=== PATIENT | female | born 1985 | race Caucasian/White ===

== ENCOUNTER 2022-03-02 15:09 | Outpatient (CLI) | payer BC, SELFPAY ==
[2022-03-02 16:15] LABS: Free T4 Free Thyroxine* 1.22 ng/dL (0.70-1.85)
== END 2022-03-02 15:10 | disposition home or self-care (01) ==
LOC: LAB 15:12
PROVIDERS: PCP Family Medicine; Referring Provider Psychiatry & Neurology Psychiatry; Visit Provider Psychiatry & Neurology Psychiatry
DX: E03.9 Hypothyroidism, unspecified (principal)
CPT/HCPCS: 36415; 84439; 84443

== ENCOUNTER 2022-06-03 11:00 | Outpatient (RCR) | payer BC, SELFPAY | END 2023-01-19 23:59 | disposition home or self-care (01) | PROVIDERS: PCP Family Medicine; Visit Provider Nurse Practitioner Family | DX: R10.2 Pelvic and perineal pain (principal); Z51.89 Encounter for other specified aftercare | CPT/HCPCS: 97032; 97110; 97112; 97140; 97162; 97535 ==

== ENCOUNTER 2022-08-03 11:16 | Outpatient (CLI) | payer BC, SELFPAY ==
[2022-08-03 12:34] LABS: Free T4 Free Thyroxine* 0.73 ng/dL (0.70-1.85)
[2022-08-05 08:34] LABS: Vitamin D, 1,25-Dihydroxy 31.6 pg/mL (19.9-79.3)
== END 2022-08-03 11:17 | disposition home or self-care (01) ==
PROVIDERS: Visit Provider Psychiatry & Neurology Psychiatry
DX: F31.89 Other bipolar disorder (principal)
CPT/HCPCS: 36415; 82652; 84439; 84443

== ENCOUNTER 2023-03-23 14:00 | Outpatient (RCR) | payer BC, SELFPAY | END 2023-03-31 08:50 | disposition home or self-care (01) | PROVIDERS: Visit Provider Internal Medicine | DX: M54.59 Other low back pain (principal); M25.551 Pain in right hip; M25.552 Pain in left hip; Z51.89 Encounter for other specified aftercare; M48.061 Spinal stenosis, lumbar region without neurogenic claudication | CPT/HCPCS: 97110; 97140; 97162 ==

== ENCOUNTER 2023-08-17 09:06 | Emergency (ER) | payer BC, SELFPAY ==
[2023-08-17] VITALS (18 sets, daily range): BP systolic 118–137; BP diastolic 83–95; PULSE 97–111; RESP 18–24; TEMP 36.2; O2SAT 89–98; BMI 38.6
[2023-08-17 10:03] LABS: Strep A DNA Probe* NOT DETECTED (Not Detectd)
--- NOTE | 2023-08-17 10:13 | ED.GENADULT ---
HPI - General Adult General Date Seen: 08/17/23 Chief complaint: Shortness of Breath/Dyspnea Stated complaint: chest pain, cough Time Seen by Provider: 08/17/23 10:02 History of Present Illness HPI narrative: 38-year-old female with a history of asthma, tobacco use, who presents to the ER this morning for evaluation shortness of breath and chest discomfort. She feels like her asthma is flaring up. She has been sick for about a week with cough, nasal congestion, , sore throat chest congestion. Also body aches, headache. Her neighbor has been sick with similar symptoms and was seen in the ER last night (apparently with negative COVID influenza swab results). The patient feels like her illnesses making her asthma flare up. She has been using her inhaler. It helped a little bit last night but did not help this morning. She feels like her asthma is flaring up and she is having more tightness and trouble breathing so came here to the ER. When asked about her asthma history she says that she actually rarely needs to use her inhaler. She says her asthma only flares up when she gets an infection. She says she has been hospitalized once or twice in the past for bad asthma attacks. Her cough has been productive of some phlegm. She does not really know if it is clear or greenish. No bloody phlegm. No nausea or vomiting. No fever. No swelling in her legs. No recent travel. No rashes. Related Data Home Medications Medication Instructions Recorded Confirmed Vraylar 08/17/23 albuterol sulfate 2.5 mg/3 mL 2.5 mg Q4H PRN wheezing 08/17/23 (0.083 %) solution for nebulization albuterol sulfate 90 mcg/actuation 2 puff inhalation Q4H PRN wheezing 08/17/23 08/17/23 aerosol inhaler (Ventolin HFA) bupropion HCl 150 mg 24 hr tablet, 150 mg PO QAM 08/17/23 08/17/23 extended release bupropion HCl 300 mg 24 hr tablet, 300 mg PO QAM 08/17/23 08/17/23 extended release cholecalciferol (vitamin D3) 50 50 mcg PO DAILY 08/17/23 08/17/23 mcg (2,000 unit) capsule dextroamphetamine sulfate 10 mg 15 mg PO DAILY 08/17/23 08/17/23 tablet elagolix 150 mg tablet (Orilissa) 150 mg PO DAILY 08/17/23 08/17/23 estradiol 0.01% (0.1 mg/gram) vaginal 08/17/23 vaginal cream fluticasone propionate 115 2 puff inhalation Q12H 08/17/23 08/17/23 mcg-salmeterol 21 mcg/actuation HFA inhaler lisinopril 10 mg tablet 10 mg PO DAILY 08/17/23 08/17/23 lorazepam 0.5 mg tablet 0.5 mg PO DAILY PRN anxiety 08/17/23 08/17/23 nicotine (polacrilex) 4 mg gum 4 mg PO Q1-2H PRN 08/17/23 08/17/23 nitrofurantoin macrocrystal 50 mg 50 mg PO DAILY 08/17/23 08/17/23 capsule polyethylene glycol 3350 17 g PO 08/17/23 gram/dose oral powder pregabalin 200 mg capsule 200 mg PO 3XD 08/17/23 08/17/23 trazodone 50 mg tablet 50 - 200 mg PO QPM PRN insomnia 08/17/23 08/17/23 Previous Rx's Medication Instructions Recorded benzonatate 100 mg capsule 100 mg PO TID PRN cough #15 caps 08/17/23 ipratropium 0.5 mg-albuterol 3 mg 3 ml inhalation Q4H PRN #90 mL 08/17/23 (2.5 mg base)/3 mL nebulization soln prednisone 20 mg tablet 40 mg (2 x 20 mg) PO DAILY 4 days 08/17/23 #8 tabs Allergies Allergy/AdvReac Type Severity Reaction Status Date / Time No Known Allergies Allergy Verified 08/17/23 09:24 [facility] Social History Smoking Status: Current every day smoker What tobacco products do you use: cigarettes How often do you have a drink containing alcohol: monthly or less AUDIT-C Alcohol total score: 1 Non-prescribed substance use: denies use Exam Narrative: Exam Narrative: Constitutional: Appears well-developed and well-nourished. Alert. Oxygen in the low 90s on room air. She is mildly tachycardic with heart rate of 101 on the monitor as I enter the room. She is coughing frequently and has a hard time stopping. Cough is dry, not barky. No stridor. HENT: Head: Atraumatic. Nose: Nose normal. Right ear: Mastoid, pinna, canal, TM are normal. Left ear: Mastoid, pinna, canal, TM are normal. Mouth/Throat: Oral mucosa is clear and moist. no trismus. Pharynx mildly erythematous without petechiae or vesicles. Tonsils symmetric and erythematous but not enlarged. Normal phonation. Uvula midline. Eyes: Conjunctivae normal. EOM normal. Pupils equal, round, and reactive to light. No scleral icterus. Neck: Normal range of motion. Neck supple. No tracheal deviation present. No JVD Cardiovascular: Tachycardic, regular rhythm. No gallop. No friction rub. No murmur heard. Symmetric radial artery pulses Pulmonary/Chest: Frequent dry cough. Effort normal. No stridor. No respiratory distress. She has difficulty breathing out for lung exam without coughing. No wheezes. No rales. No rhonchi . No tenderness. Abdominal: Soft.No distension. No mass. No tenderness. No rebound. No guarding. Musculoskeletal: RUE: Normal range of motion. No tenderness. No deformity LUE: Normal range of motion. No tenderness. No deformity RLE: Normal range of motion. No edema. No tenderness. No deformity LLE: Normal range of motion. No edema. No tenderness. No deformity Lymph: No cervical adenopathy. Neurological: Alert and oriented to person, place, and time. Normal strength. CN II-VII intact. No sensory deficit. GCS eye subscore is 4. GCS verbal subscore is 5. GCS motor subscore is 6. Normal coordination Skin: Skin is warm and dry. No rash noted. No pallor. Normal capillary refill. Psychiatric: Normal mood. Normal affect. Const: Vital Signs, click to edit/add: Vital Signs - 24 hr 08/17/23 09:19 Temperature 97.1 F L Pulse Rate [Left P ulse Oximeter] 107 H Respiratory Rate 24 Blood Pressure [Ri ght Upper Arm] 137/86 Pulse Oximetry 95 Oxygen Delivery Me thod Room Air Course Course ED Course: Recheck-patient feels subtly improved after neb. Still having some cough but much less coughing. Repeat lung exam still generally clear but she does have easy your respirations after the neb. Much less coughing now. Vital Signs Vital signs: Initial Vital Signs Temperature 97.1 F L 08/17/23 09:19 Temperature Source Temporal Artery Scan 08/17/23 09:19 Pulse Rate 107 H 08/17/23 09:19 Respiratory Rate 24 08/17/23 09:19 Blood Pressure 137/86 08/17/23 09:19 Blood Pressure Mean 103 08/17/23 09:19 Pulse Oximetry 95 08/17/23 09:19 Oxygen Delivery Method Room Air 08/17/23 09:19 Vital Signs Temperature 97.1 F L 08/17/23 09:19 Pulse Rate 107 H 08/17/23 09:19 Respiratory Rate 24 08/17/23 09:19 Blood Pressure 137/86 08/17/23 09:19 Pulse Oximetry 95 08/17/23 09:19 Oxygen Delivery Method Room Air 08/17/23 09:19 Temperature 97.1 F L 08/17/23 09:19 Pulse Rate 107 H 08/17/23 09:19 Respiratory Rate 24 08/17/23 09:19 Blood Pressure 137/86 08/17/23 09:19 Pulse Oximetry 95 08/17/23 09:19 Oxygen Delivery Method Room Air 08/17/23 09:19 Medications Administered Medications: Discontinued Medications Generic Name Dose Route Start Last Admin Trade Name Freq PRN Reason Stop Dose Admin Albuterol/Ipratropium 1 neb 08/17/23 10:21 08/17/23 10:30 Iprat-Albut 0.5-2.5 Mg/3 Ml Neb IH 08/17/23 10:22 1 neb ONCE ONE Administration Prednisone 40 mg 08/17/23 10:21 08/17/23 10:29 Prednisone 20 Mg Tablet PO 08/17/23 10:22 40 mg ONCE ONE Administration Medical Decision Making MDM Narrative Medical decision making narrative: This patient presents for evaluation of shortness of breath, cough, chest discomfort. She believes she is having an asthma exacerbation in the setting of having had a cold for about a week.. This is consistent with an upper respiratory tract infection. Viral testing negative for influenza, coronavirus, RSV. She also has sore throat with signs of pharyngitis on clinical exam. Strep testing was also negative. Given duration of cough, concomitant tobacco use, significant cough without a lot of bronchospasms on exam, consider possible community-acquired pneumonia. Chest x-ray is fortunately negative for pneumonia, pleural effusion, empyema, or other abnormality. There is no signs at this point of serious bacterial infection such as OM, RPA, epiglottitis, [employer], strep pharyngitis, pneumonia, sinusitis, meningitis, bacteremia, serious bacterial infection. She also has mildly low oxygen sats with typically in the low 90s. She had 1 brief episode where she dip down into the 80s, but it is not clear if that was an accurate oximeter reading. She does have an underlying history of sleep apnea, tobacco use, asthma. We monitor here for a couple of hours in the ER and she did well. She she maintained saturations in the low to mid 90s on room air. Recommend that she continue to monitor her oxygen sats at home. Reviewed in detail. There are go gastrointestinal symptoms at this point and no signs of dehydration. Close followup with primary care physician is indicated. Return to ED for O2 sats less than 90 %, fever > 103, protracted vomiting, confusion, or other worsening. Follow-up with primary care for recheck. Plan will be to treat for asthma exacerbation, likely triggered by viral URI. Five day burst of prednisone with 1st dose being given here in the ER. She will use her nebulizer and inhaler at home. She needs a refill for never wrist tools (provided). Tessalon for cough. Hold on antibiotics for now. Precautions for return to the ER review Lab Data Labs: Lab Results 08/17/23 Range/Units 09:25 SARS-CoV-2 (PCR) Negative SARS-CoV-2 (Negative) Influenza Type A (PCR) Negative PCR FLU A (Negative) Influenza Type B (PCR) Negative PCR FLU B (Negative) RSV (PCR) Negative PCR RSV (Negative) Group A Strep DNA NOT DETECTED (Not Detectd) Imaging Data Chest x-ray: Attestation: I have reviewed the pertinent imaging results. My impression: IMPRESSION: No acute findings. ECG Data Attestation: I personally reviewed and interpreted this ECG as follows: Interpretation: Sinus tachycardia, rate 111 WA 138 QRS axis normal axis. No pathologic Q-waves. Low-voltage QRS. ST segment/T wave: No ST segment elevation or depression. QTc: 459 Discharge Plan Discharge Clinical Impression: Asthma with acute exacerbation Patient Disposition: Home, Self-Care Condition: Stable Instructions: Asthma (DC), Upper Respiratory Infection (DC) Additional Instructions: As we discussed, please follow-up with your doctor for recheck within the next 3-5 days unless her completely improved. Continue to work on quitting smoking. Monitor your symptoms and if you have any oxygen levels below 90% or yet worsening cough, high fever, worsening chest pain, bloody sputum, or if you have any concerns, please come back to the ER right away to be rechecked. Prescriptions: New ipratropium-albuterol 0.5 mg-3 mg(2.5 mg base)/3 mL solution for nebulization 3 ml inhalation Q4H PRNQty: 90 0RF Rx Instructions: until breathing returns to target peak flow/parameters prednisone 20 mg tablet 40 mg PO DAILY 4 Days Qty: 8 0RF benzonatate 100 mg capsule 100 mg PO TID PRN (Reason: cough) Qty: 15 0RF No Action nitrofurantoin macrocrystal 50 mg capsule 50 mg PO DAILY albuterol sulfate 2.5 mg /3 mL (0.083 %) solution for nebulization 2.5 mg Q4H PRN (Reason: wheezing) trazodone 50 mg tablet 50 - 200 mg PO QPM PRN (Reason: insomnia) dextroamphetamine sulfate 10 mg tablet 15 mg PO DAILY lorazepam 0.5 mg tablet 0.5 mg PO DAILY PRN (Reason: anxiety) nicotine (polacrilex) 4 mg gum 4 mg PO Q1-2H PRN lisinopril 10 mg tablet 10 mg PO DAILY polyethylene glycol 3350 17 gram/dose powder PO estradiol 0.01 % (0.1 mg/gram) cream vaginal albuterol sulfate [Ventolin HFA] 90 mcg/actuation HFA aerosol inhaler 2 puff inhalation Q4H PRN (Reason: wheezing) bupropion HCl 300 mg tablet extended release 24 hr 300 mg PO QAM bupropion HCl 150 mg tablet extended release 24 hr 150 mg PO QAM pregabalin 200 mg capsule 200 mg PO 3XD fluticasone propion-salmeterol 115-21 mcg/actuation HFA aerosol inhaler 2 puff INHALATION Q12H cholecalciferol (vitamin D3) 50 mcg (2,000 unit) capsule 50 mcg PO DAILY Orilissa 150 mg tablet 150 mg PO DAILY Vraylar Follow Up/Referrals: Provider,Not a Local [Referring] - Stand Alone Forms: MyHealth Info Instructions
[2023-08-17 10:17] LABS: PCR FLU A Negative PCR FLU A (Negative); PCR FLU B Negative PCR FLU B (Negative); PCR RSV Negative PCR RSV (Negative); SARS PCR* Negative SARS-CoV-2 (Negative)
--- NOTE | 2023-08-17 10:21 | XR_ITS ---
Patient: ALYCIA SAINZ Facility:?[facility] Patient ID:?[id number] Site Patient ID:?[id number]. Site :?[id number] Study:?XRay-Chest 2V-08/17/2023 10:54:43 AM Ordering Physician:?DR. PAIGE Final Report: INDICATION: Chest pain, shortness of breath TECHNIQUE: Chest 2 views COMPARISON: 06/23/2021 FINDINGS: Lungs clear. Overlying artifact on the frontal view. No pleural effusion. No fracture. Mediastinum normal. IMPRESSION: No acute findings. Dictated by Vasyl Rios MD @ 08/17/2023 11:04:05 AM Signed by:?Vasyl Rios MD @08/17/2023 11:04:05 AM (Electronic Signature)
[2023-08-17] MEDS: predniSONE 20 MG TABLET 40 MG PO (10:29)
[2023-08-17] MEDS: IPRAT-ALBUT 0.5-2.5 MG/3 ML NEB 1 NEB IH (10:30)
--- NOTE | 2023-08-17 11:06 | ED.NURSE ---
Noted patient desats to 88%-89% when sleeping. Provider updated.
--- NOTE | 2023-08-17 11:27 | ED.NURSE ---
Pt sats fluctuating with good waveform, RT here to assess.
== END 2023-08-17 12:58 | disposition home or self-care (01) ==
PROVIDERS: Emergency Provider Emergency Medicine; PCP Internal Medicine
DX: J44.1 Chronic obstructive pulmonary disease with (acute) exacerbation (principal)
CPT/HCPCS: 71046; 87631; 87651; 93005; 94640; 99283; 99284; 99285; J7512

== ENCOUNTER 2024-06-26 13:08 | Emergency (ER) | payer BC, SELFPAY ==
[2024-06-26 13:33] VITALS: BP 137/94; PULSE 103; RESP 28; TEMP 36.1; O2SAT 93; BMI 37.8
--- NOTE | 2024-06-26 13:47 | ED.GENADULT ---
HPI - General Adult General Date Seen: 06/26/24 Chief complaint: Shortness of Breath/Dyspnea Stated complaint: Shortness of breath, cough, body aches Time Seen by Provider: 06/26/24 13:47 History of Present Illness HPI narrative: 39-year-old female with a history of asthma, tobacco use, presenting to the ER today with cough, chest congestion, fever, body aches. She does have a recent exposure to influenza a. She has been sick with a cough for about a week and thought she was getting better. However when she woke up this morning she was getting worse. She notes that she had been sick for several weeks of the getting around Thanksgiving and then got better for a couple of weeks. Her son was ill 2 weeks ago in returned goods sorter to have influenza A. Several of his friends were sick to. He got better last week and around that time she developed symptoms of cough, stuffy nose, body aches. She had been trying to write out the illness at home. However since yesterday she has also developed some burning discomfort when she breathes affecting both sides of her chest. Cough has gotten worse. She is feeling a bit more tight in her chest and short of breath. She has been trying to treat herself with nebulizers but they are only partially effective. She is not having any hemoptysis. No abdominal pain. No swelling in her legs. The pain is not really a crushing substernal pain it is more of a burning pain affecting both sides of her lungs when she breathes in and now. I saw her here in the ER last August for cough and shortness of breath. Treated for asthma exacerbation at that time. Related Data Home Medications ?Medication ?Instructions ?Recorded ?Confirmed Vraylar 08/17/23 albuterol sulfate 2.5 mg/3 mL 2.5 mg Q4H PRN wheezing 08/17/23 (0.083 %) solution for nebulization albuterol sulfate 90 mcg/actuation 2 puff inhalation Q4H PRN wheezing 08/17/23 06/26/24 aerosol inhaler (Ventolin HFA) bupropion HCl 150 mg 24 hr tablet, 150 mg PO QAM 08/17/23 06/26/24 extended release bupropion HCl 300 mg 24 hr tablet, 300 mg PO QAM 08/17/23 06/26/24 extended release cholecalciferol (vitamin D3) 50 50 mcg PO DAILY 08/17/23 06/26/24 mcg (2,000 unit) capsule dextroamphetamine sulfate 10 mg 15 mg PO DAILY 08/17/23 06/26/24 tablet elagolix 150 mg tablet (Orilissa) 150 mg PO DAILY 08/17/23 06/26/24 estradiol 0.01% (0.1 mg/gram) vaginal 08/17/23 vaginal cream fluticasone propionate 115 2 puff inhalation Q12H 08/17/23 06/26/24 mcg-salmeterol 21 mcg/actuation HFA inhaler lisinopril 10 mg tablet 10 mg PO DAILY 08/17/23 06/26/24 lorazepam 0.5 mg tablet 0.5 mg PO DAILY PRN anxiety 08/17/23 06/26/24 nicotine (polacrilex) 4 mg gum 4 mg PO Q1-2H PRN 08/17/23 06/26/24 nitrofurantoin macrocrystal 50 mg 50 mg PO DAILY 08/17/23 06/26/24 capsule polyethylene glycol 3350 17 g PO 08/17/23 gram/dose oral powder pregabalin 200 mg capsule 200 mg PO 3XD 08/17/23 06/26/24 trazodone 50 mg tablet 50 - 200 mg PO QPM PRN insomnia 08/17/23 06/26/24 Previous Rx's ?Medication ?Instructions ?Recorded benzonatate 100 mg capsule 100 mg PO TID PRN cough #15 caps 08/17/23 ipratropium 0.5 mg-albuterol 3 mg 3 ml inhalation Q4H PRN #90 mL 08/17/23 (2.5 mg base)/3 mL nebulization soln prednisone 20 mg tablet 40 mg (2 x 20 mg) PO DAILY 4 days 08/17/23 #8 tabs Allergies Allergy/AdvReac Type Severity Reaction Status Date / Time No Known Allergies Allergy Verified 06/26/24 13:41 [facility] PFS Social History Smoking Status: Former smoker What tobacco products do you use: cigarettes Smoking quit date/years: <= 15 years ago Do you use any of these nicotine containing products: None Second hand tobacco smoke exposure: No How often do you have a drink containing alcohol: monthly or less AUDIT-C Alcohol total score: 1 Non-prescribed substance use: denies use service: No Exam Narrative: Exam Narrative: Constitutional: Appears well-developed and well-nourished. Alert. Conversant. Non toxic. HENT: Head: Atraumatic. Nose: Nose normal. TMs normal. Mouth/Throat: Oral mucosa is clear and moist. no trismus. Pharynx normal. Tonsils symmetric. No tonsillar enlargement, erythema, or exudate. Eyes: Conjunctivae normal. EOM normal. Pupils equal, round, and reactive to light. No scleral icterus. Neck: Normal range of motion. Neck supple. No tracheal deviation present. No JVD Cardiovascular: Normal rate, regular rhythm. No gallop. No friction rub. No murmur heard. Symmetric radial artery pulses Pulmonary/Chest: Effort normal. No stridor. No respiratory distress. Bilateral coarse wheezes with fairly tight aeration and poor air movement. No rales. No rhonchi . No tenderness. Abdominal: Soft.No distension. No mass. No tenderness. No rebound. No guarding. Musculoskeletal: RUE: Normal range of motion. No tenderness. No deformity LUE: Normal range of motion. No tenderness. No deformity RLE: Normal range of motion. No edema. No tenderness. No deformity LLE: Normal range of motion. No edema. No tenderness. No deformity Lymph: No cervical adenopathy. Neurological: Alert and oriented to person, place, and time. Normal strength. CN II-VII intact. No sensory deficit. GCS eye subscore is 4. GCS verbal subscore is 5. GCS motor subscore is 6. Normal coordination Skin: Skin is warm and dry. No rash noted. No pallor. Normal capillary refill. Psychiatric: Normal mood. Normal affect. Const: Vital Signs, click to edit/add: Vital Signs - 24 hr 06/26/24 13:33 06/26/24 14:03 Temperature 97 F L Pulse Rate [Left P ulse Oximeter] 103 H 108 H Respiratory Rate 28 H 24 Blood Pressure [Ri ght Upper Arm] 137/94 H 136/94 H Pulse Oximetry 93 94 Oxygen Delivery Me thod Room Air Room Air Course Course ED Course: Recheck-minimal improvement in aeration after 1st DuoNeb. Additional abuse will ordered. Reevaluation(s) Reevaluation #1: Recheck-feeling somewhat better after albuterol. Lung sounds are definitely improved now she is still wheezy but moving much better air than when she arrived. Sats are 92-94% room air. Pulse rate in the 90s. Respiratory rate is down. She is feeling better. Vital Signs Vital signs: Initial Vital Signs Temperature 97 F L 06/26/24 13:33 Temperature Source Temporal Artery Scan 06/26/24 13:33 Pulse Rate 103 H 06/26/24 13:33 Pulse Rhythm Regular 06/26/24 13:33 Pulse Strength 3+ Normal 06/26/24 13:33 Respiratory Rate 28 H 06/26/24 13:33 Blood Pressure 137/94 H 06/26/24 13:33 Blood Pressure Mean 108 H 06/26/24 13:33 Blood Pressure Position Sitting 06/26/24 13:33 Pulse Oximetry 93 06/26/24 13:33 Oxygen Delivery Method Room Air 06/26/24 13:33 Vital Signs Temperature 97 F L 06/26/24 13:33 Pulse Rate 103 H 06/26/24 13:33 Respiratory Rate 28 H 06/26/24 13:33 Blood Pressure 137/94 H 06/26/24 13:33 Pulse Oximetry 93 06/26/24 13:33 Oxygen Delivery Method Room Air 06/26/24 13:33 Temperature 97 F L 06/26/24 13:33 Pulse Rate 108 H 06/26/24 14:03 Respiratory Rate 24 06/26/24 14:03 Blood Pressure 136/94 H 06/26/24 14:03 Pulse Oximetry 94 06/26/24 14:03 Oxygen Delivery Method Room Air 06/26/24 14:03 Medications Administered Medications: Discontinued Medications Generic Name Dose Route Start Last Admin Trade Name Freq PRN Reason Stop Dose Admin Albuterol 2.5 mg 06/26/24 14:42 06/26/24 14:46 Albuterol Sulfate 2.5 Mg/3 Ml Vial.Neb NEB 06/26/24 14:43 2.5 mg ONCE ONE Administration Albuterol/Ipratropium 1 neb 06/26/24 14:00 06/26/24 14:13 Iprat-Albut 0.5-2.5 Mg/3 Ml Neb IH 06/26/24 14:01 1 neb ONCE ONE Administration Prednisone 40 mg 06/26/24 14:00 06/26/24 14:13 Prednisone 20 Mg Tablet PO 06/26/24 14:01 40 mg ONCE ONE Administration Medical Decision Making MDM Narrative Medical decision making narrative: This patient presents for evaluation of cough ongoing for about a week. She has now also developed some burning chest discomfort and chest tightness since yesterday. Of note her son was sick 2 weeks ago with influenza a and she suspicious that she probably has influenza. PCR is obtained is actually negative for influenza a, influenza B, COVID. Chest x-ray is negative for pneumonia. She does have significant wheezing and did present with shortness of breath, tachypnea but not hypoxia. Mental status is normal. She is not requiring BiPAP or intubation at this point. Signs and symptoms are consistent with asthma exacerbation. A broad differential was considered including asthma, bronchitis, pneumothorax, viral induced wheezing, allergic phenomena, among others. There are no signs at this point of any serious etiologies including those mentioned above. The patient feels and sounds improved after interventions here in ED. No indication for hospitalization at this time including no hypoxia, no marked increase in respiratory rate, and there are minimal to no retractions. Supportive outpatient management is indicated, medications for discharge noted above. Given current prevalence of atypical pneumonia in our community will put her on a course of Azithromycin especially given her underlying lung disease, tobacco use, and duration of her illness with worsening after a week of symptoms. Prescriptions for Azithromycin, prednisone were provided through [facility]. Close followup with primary care physician. Return if increased wheezing, progressive shortness of breath, develops fever greater than 102. Questions answered and patient comfortable with plan. Lab Data Labs: Lab Results 06/26/24 Range/Units 13:45 SARS-CoV-2 (PCR) Negative SARS-CoV-2 (Negative) Influenza Type A (PCR) Negative PCR FLU A (Negative) Influenza Type B (PCR) Negative PCR FLU B (Negative) RSV (PCR) Negative PCR RSV (Negative) Imaging Data Chest x-ray: Attestation: I have reviewed the pertinent imaging results. My impression: No acute infiltrate Radiologist's impression: IMPRESSION: No acute findings ECG Data Attestation: I personally reviewed and interpreted this ECG as follows: Interpretation: Normal sinus rhythm Rate: 99 NC: 132 QRS axis: Normal QRS axis. ST segment/T wave:No ST segment elevation or depression QTc: 464 Discharge Plan Discharge Clinical Impression: Asthma with acute exacerbation, Atypical pneumonia Patient Disposition: Home, Self-Care Condition: Stable Instructions: Asthma (DC), Pneumonia (ED) Additional Instructions: As we discussed, at to treat the wheezing and inflammation in your chest use prednisone once daily for the next 5 days. Use your nebulizer every 2-4 hours as needed for wheezing and shortness of breath. Please start on the antibiotic (Azithromycin) to help treat in case you have a ?walking pneumonia. ?. Fortunately, your influenza and coronavirus swab is negative. your chest x-ray looks good and does not show any sign of lobar pneumonia. Monitor your symptoms carefully and come back to the ER right away if you have any concerns. Especially if you have worsening trouble breathing, high fever, worsening burning or pain in your chest, bloody sputum, or weakness. Prescriptions: No Action nitrofurantoin macrocrystal 50 mg capsule 50 mg PO DAILY albuterol sulfate 2.5 mg /3 mL (0.083 %) solution for nebulization 2.5 mg Q4H PRN (Reason: wheezing) trazodone 50 mg tablet 50 - 200 mg PO QPM PRN (Reason: insomnia) dextroamphetamine sulfate 10 mg tablet 15 mg PO DAILY lorazepam 0.5 mg tablet 0.5 mg PO DAILY PRN (Reason: anxiety) nicotine (polacrilex) 4 mg gum 4 mg PO Q1-2H PRN lisinopril 10 mg tablet 10 mg PO DAILY polyethylene glycol 3350 17 gram/dose powder PO estradiol 0.01 % (0.1 mg/gram) cream vaginal albuterol sulfate [Ventolin HFA] 90 mcg/actuation HFA aerosol inhaler 2 puff inhalation Q4H PRN (Reason: wheezing) bupropion HCl 300 mg tablet extended release 24 hr 300 mg PO QAM bupropion HCl 150 mg tablet extended release 24 hr 150 mg PO QAM pregabalin 200 mg capsule 200 mg PO 3XD fluticasone propion-salmeterol 115-21 mcg/actuation HFA aerosol inhaler 2 puff INHALATION Q12H cholecalciferol (vitamin D3) 50 mcg (2,000 unit) capsule 50 mcg PO DAILY Orilissa 150 mg tablet 150 mg PO DAILY Vraylar ipratropium-albuterol 0.5 mg-3 mg(2.5 mg base)/3 mL solution for nebulization 3 ml inhalation Q4H PRNQty: 90 0RF Rx Instructions: until breathing returns to target peak flow/parameters prednisone 20 mg tablet 40 mg PO DAILY 4 Days Qty: 8 0RF benzonatate 100 mg capsule 100 mg PO TID PRN (Reason: cough) Qty: 15 0RF Follow Up/Referrals: Prudence Mena PA-C [Primary Care Provider] - Stand Alone Forms: My[facility] Info Instructions
--- NOTE | 2024-06-26 14:00 | CRLHL7_ITS ---
For Patients: As a result of the Century Cures Act, medical imaging exams and procedure reports are released immediately into your electronic medical record. You may view this report before your referring provider. If you have questions, please contact your health care provider. INDICATION: Cough. COMPARISON: 08/17/2023. TECHNIQUE: Chest 2 views. FINDINGS: Lungs are clear. No pleural effusion. No pneumothorax Normal cardiomediastinal silhouette. No osseous abnormalities. IMPRESSION: No acute findings Dictated by Alejandro Zhou MD @ 06/26/2024 2:17:12 PM (Electronically Signed)
[2024-06-26 14:03] VITALS: BP 136/94; PULSE 108; RESP 24; O2SAT 94
[2024-06-26] MEDS: predniSONE 20 MG TABLET 40 MG PO (14:13)
[2024-06-26] MEDS: IPRAT-ALBUT 0.5-2.5 MG/3 ML NEB 1 NEB IH (14:13)
[2024-06-26 14:27] LABS: PCR FLU A Negative PCR FLU A (Negative); PCR FLU B Negative PCR FLU B (Negative); PCR RSV Negative PCR RSV (Negative); SARS PCR* Negative SARS-CoV-2 (Negative)
[2024-06-26] MEDS: ALBUTEROL SULFATE 2.5 MG/3 ML VIAL.NEB NEB (14:46)
== END 2024-06-26 15:30 | disposition home or self-care (01) ==
PROVIDERS: Emergency Provider Emergency Medicine; PCP Internal Medicine
DX: J45.901 Unspecified asthma with (acute) exacerbation (principal); J18.9 Pneumonia, unspecified organism
CPT/HCPCS: 71046; 87631; 94640; 99283; 99284; J7512

== ENCOUNTER 2024-06-30 08:44 | Inpatient (IN) | payer BC, SELFPAY ==
[2024-06-30] VITALS (18 sets, daily range): BP systolic 115–173; BP diastolic 66–107; PULSE 94–130; RESP 18–30; TEMP 36.1–36.5; O2SAT 88–94; BMI 37.8; BMI 36.9
[2024-06-30] MEDS: ONDANSETRON ODT 4 MG TAB PO (09:02)
--- NOTE | 2024-06-30 09:23 | ED_ITS ---
HPI - General Adult General Time Seen by Provider: 09:23 Date Seen: 06/30/24 Chief complaint: Nausea/Vomiting Stated complaint: All over pain/can't keep anything down Time Seen by Provider: 06/30/24 09:23 Source: patient and RN notes reviewed Mode of arrival: ambulatory Limitations: no limitations History of Present Illness HPI narrative: This 39-year-old female is coming in with pain all over and nausea vomiting. She was seen on 06/26 with asthma exacerbation, started on a Z-Jenaro and prednisone given the length of her symptoms and concern for atypical pneumonia. She had a negative triple viral swab and negative chest x-ray at that point. She was noted to be wheezing. She has not been able to take her Z-Jenaro or prednisone since yesterday as she has developed nausea and vomiting. She states she hurts through her left side of her chest. She has not had fevers but has felt clammy. She hurts in her back, in her left chest and left side. She is moaning and appearing uncomfortable, caring an emesis bag with her. She is on Lyrica baseline, has not been able to take it. She asks for something for pain. She is not aware of any new ill contacts. Related Data Home Medications ?Medication ?Instructions ?Recorded ?Confirmed albuterol sulfate 2.5 mg/3 mL 2.5 mg inhalation Q4H PRN wheezing 08/17/23 06/30/24 (0.083 %) solution for nebulization albuterol sulfate 90 mcg/actuation 2 puff inhalation Q4H PRN wheezing 08/17/23 06/30/24 aerosol inhaler (Ventolin HFA) bupropion HCl 150 mg 24 hr tablet, 150 mg PO QAM 08/17/23 06/30/24 extended release bupropion HCl 300 mg 24 hr tablet, 300 mg PO QAM 08/17/23 06/30/24 extended release cholecalciferol (vitamin D3) 50 50 mcg PO DAILY 08/17/23 06/30/24 mcg (2,000 unit) capsule elagolix 150 mg tablet (Orilissa) 150 mg PO DAILY 08/17/23 06/30/24 fluticasone propionate 115 2 puff inhalation Q12H 08/17/23 06/30/24 mcg-salmeterol 21 mcg/actuation HFA inhaler lisinopril 10 mg tablet 10 mg PO DAILY 08/17/23 06/30/24 lorazepam 0.5 mg tablet 0.5 mg PO DAILY PRN anxiety 08/17/23 06/30/24 pregabalin 200 mg capsule 200 mg PO 3XD 08/17/23 06/30/24 trazodone 50 mg tablet 50 - 200 mg PO HS PRN insomnia 08/17/23 06/30/24 azithromycin 250 mg tablet 250 mg PO DAILY 06/30/24 06/30/24 cariprazine 4.5 mg capsule 4.5 mg PO DAILY 06/30/24 06/30/24 (Vraylar) dextroamphetamine sulfate 15 mg 15 mg PO DAILY 06/30/24 06/30/24 capsule,extended release dextroamphetamine-amphetamine 10 1 tab PO DAILY@1200 06/30/24 06/30/24 mg tablet duloxetine 60 mg capsule,delayed 60 mg PO DAILY 06/30/24 06/30/24 release ipratropium 0.5 mg-albuterol 3 mg 3 ml inhalation Q4H PRN 06/30/24 06/30/24 (2.5 mg base)/3 mL nebulization soln Previous Rx's ?Medication ?Instructions ?Recorded prednisone 20 mg tablet 40 mg (2 x 20 mg) PO DAILY 4 days 08/17/23 #8 tabs Allergies Allergy/AdvReac Type Severity Reaction Status Date / Time No Known Allergies Allergy Verified 06/30/24 11:41 Review of Systems Status of ROS: Reports: 6 or more systems reviewed and unremarkable except as noted in History and below [facility] Medical History Intervertebral disc disorder with radiculopathy of lumbar region ?M51.16 - Intervertebral disc disorders with radiculopathy, lumbar region (ICD-10) Low back pain ?M54.50 - Low back pain, unspecified (ICD-10) Major depressive disorder ?F32.9 - Major depressive disorder, single episode, unspecified (ICD-10) Anxiety ?F41.9 - Anxiety disorder, unspecified (ICD-10) Herpes zoster ?B02.9 - Zoster without complications (ICD-10) Iron deficiency anemia ?D50.9 - Iron deficiency anemia, unspecified (ICD-10) Hypertension ?I10 - Essential (primary) hypertension (ICD-10) Surgical History History of hysterectomy ?Z90.710 - Acquired absence of both cervix and uterus (ICD-10) Social History What is your current living situation?: I presently have a place to live Problems where you live: no known problems Problems where you live details: N/A In the past 12 months, utilities in danger of being shut off: no In past 12 months, lack of transportation kept you from medical appts, meetings, work, or getting things needed for daily living: no In the past 12 mos, have been you worried that your food would run out before you had money to buy more?: never true In the past 12 mos, the food you bought just didn't last and you didn't have money to buy more?: never true Highest level of school completed/degree received: high school graduate Smoking Status: Former smoker What tobacco products do you use: cigarettes Smoking quit date/years: <= 15 years ago Do you use any of these nicotine containing products: None Nicotine containing products detail: 2 weeks Second hand tobacco smoke exposure: No How often do you have a drink containing alcohol: monthly or less How often do you have six or more drinks on one occasion: Never AUDIT-C Alcohol total score: 1 Non-prescribed substance use: denies use Caffeine: Yes (Mtn Dew 1-2 daily) How often does anyone, including family, friends and others, physically hurt you : never How often does anyone, including family, friends and others, insult or talk down to you: never How often does anyone, including family, friends and others, threaten you with harm: never How often does anyone, including family, friends and others, scream or curse at you: never service: No Exam Const: Vital Signs, click to edit/add: Vital Signs - 24 hr 06/30/24 08:54 06/30/24 09:32 06/30/24 10:12 Temperature 97.6 F Pulse Rate 130 H Pulse Rate [Pulse Oximeter] 112 H Respiratory Rate 26 H Blood Pressure Blood Pressure [Ri ght Arm] Blood Pressure [Ri ght Upper Arm] 115/85 Pulse Oximetry 93 92 89 Oxygen Delivery Me thod Room Air Oxygen Flow Rate 06/30/24 10:13 06/30/24 10:15 06/30/24 10:30 Temperature Pulse Rate 129 H 128 H 115 H Pulse Rate [Pulse Oximeter] Respiratory Rate Blood Pressure 124/93 H Blood Pressure [Ri ght Arm] Blood Pressure [Ri ght Upper Arm] Pulse Oximetry 88 90 92 Oxygen Delivery Me thod Nasal Cannula Nasal Cannula Oxygen Flow Rate 1 1 06/30/24 10:32 06/30/24 10:45 06/30/24 11:00 Temperature Pulse Rate 115 H 118 H 118 H Pulse Rate [Pulse Oximeter] Respiratory Rate Blood Pressure 134/106 H Blood Pressure [Ri ght Arm] Blood Pressure [Ri ght Upper Arm] Pulse Oximetry 93 91 94 Oxygen Delivery Me thod Nasal Cannula Nasal Cannula Nasal Cannula Oxygen Flow Rate 1 1 1 06/30/24 11:03 06/30/24 11:15 06/30/24 11:20 Temperature 97.3 F L Pulse Rate 116 H 115 H Pulse Rate [Pulse Oximeter] Respiratory Rate Blood Pressure 139/66 Blood Pressure [Ri ght Arm] Blood Pressure [Ri ght Upper Arm] Pulse Oximetry 93 93 Oxygen Delivery Me thod Nasal Cannula Nasal Cannula Oxygen Flow Rate 1 1 06/30/24 13:45 06/30/24 13:58 Temperature 97.0 F L Pulse Rate 118 H Pulse Rate [Pulse Oximeter] 109 H Respiratory Rate 30 H Blood Pressure Blood Pressure [Ri ght Arm] 173/107 H Blood Pressure [Ri ght Upper Arm] Pulse Oximetry 91 Oxygen Delivery Me thod Room Air Oxygen Flow Rate This 39-year-old female is sitting up on the edge of the bed, moaning, rocking, is mildly diaphoretic and skin is cool, clammy. No rash noted. Pupils equal round, sclera clear. She can engage in talk to me, speech is normal. She moans and rocks forward during a lot of my examination, cannot get her to lie back at this time. Neck supple, no masses. Lungs currently are clear, no wheezing or crackles, no tachypnea. CV fast but regular, no murmur. She complains of left lower chest wall and left flank pain, left upper quadrant pain but is sitting up. Abdomen is tender in the left upper quadrant when I palpate but again patient is sitting up, not comfortable lie back at this time. Documenting provider has reviewed patient's vital signs: yes Course Course ED Course: Patient does not seem to have acute asthma exacerbation any longer, with left- sided pain, need to consider cardiac etiologies including ischemic disease, myocarditis, pericarditis, pneumothorax. Pneumothorax less likely in my opinion giving her stable hemodynamics but will look with a portable chest x-ray. She could have a new acute illness with gastrointestinal symptoms. Will attempt to get a urinalysis as well with consideration this left flank pain. Will give patient Toradol, Zofran and IV fluids. Reevaluation(s) Time of Reevaluation #1: 10:28 Reevaluation #1: Alycia's white blood count is at 28,690. She has been on prednisone but this is a bit more of a shift than what I would suspect. She is also tachycardic. We are going to proceed with chest imaging with PE protocol to rule out pneumonia, rule out concomitant thromboembolic disease. Did update patient on the imaging. Toradol has helped but she still having some left-sided pain, does seem to be a pleuritic component with this. Her O2 sats are 90-92%, does have oxygen on now. Will talk to her nurse to see how hypoxic she was. Her nurse did update me that she went down day 88-89% in did appropriately put her on 1 L of oxygen. Time of Reevaluation #2: 11:22 Reevaluation #2: Patient requiring more pain management, will give her 2 mg IV morphine. She is already on pulse oximetry and supplemental oxygen at this time. Awaiting CT imaging. Have ordered maintenance fluid with potassium after she is done with her normal saline bolus due the fact she is mildly hypokalemic. Do not think that she is ready to tolerate oral potassium at this point. Will notify Radiology that we do not need to wait for test, patient has had a hysterectomy reportedly. Time of Reevaluation #3: 13:16 Reevaluation #3: Have updated patient on plan for hospitalization. She is having increasing pain again, morphine did help. Will order 2 more mg IV morphine. Zosyn and vancomy vineet have been ordered. She is getting the 2 L of lactated Ringer's, will re- initiate her maintenance fluid once this bolus is done. She is going to go into the hospital, we will watch for complications of the parapneumonic effusion. Right now this is considered small and would not recommend attempts at drainage. We discussed that treatment with antibiotics usually is the primary wait to resolve this. She does understand that if worsening, it may be recommended to attempt drainage and even potentially chest tube placement. This is beyond my scope of care but will be monitored during the hospitalization. At this time, I do not feel that anything further is indicated except treatment of her infection. Will leave it to the hospitalist to see if they want to continue with a is a through [facility], she had not completed a 5 day course. Right now her asthma seems to be stable, not wheezing, will leave further steroid dosing up to hospitalist as well. Consultations Consultation #1: Have spoken with the hospitalist Jessica Bedolla whom accept this patient. She would like vancomycin with this patient and has been ordered. Reviewed vitals, we have discussed doing a 2 L of fluids but will go with lactated Ringer's to try to not deplete potassium further. Time: 12:56 Vital Signs Vital signs: Initial Vital Signs Temperature 97.6 F 06/30/24 08:54 Temperature Source Temporal Artery Scan 06/30/24 08:54 Pulse Rate 112 H 06/30/24 08:54 Respiratory Rate 26 H 06/30/24 08:54 Blood Pressure 115/85 06/30/24 08:54 Blood Pressure Mean 95 06/30/24 08:54 Pulse Oximetry 93 06/30/24 08:54 Oxygen Delivery Method Room Air 06/30/24 08:54 Vital Signs Temperature 97.6 F 06/30/24 08:54 Pulse Rate 112 H 06/30/24 08:54 Respiratory Rate 26 H 06/30/24 08:54 Blood Pressure 115/85 06/30/24 08:54 Pulse Oximetry 93 06/30/24 08:54 Oxygen Delivery Method Room Air 06/30/24 08:54 Temperature 97.0 F L 06/30/24 13:58 Pulse Rate 109 H 06/30/24 13:58 Respiratory Rate 24 06/30/24 17:05 Blood Pressure 173/107 H 06/30/24 13:58 Pulse Oximetry 92 06/30/24 17:05 Oxygen Delivery Method Nasal Cannula 06/30/24 17:05 Oxygen Flow Rate 2 06/30/24 17:05 Medications Administered Medications: Generic Name Dose Route Start Last Admin Trade Name Freq PRN Reason Stop Dose Admin Acetaminophen 1,000 mg 06/30/24 14:10 06/30/24 14:35 Acetaminophen 325 Mg Tablet PO 975 mg Q6H PRN Administration Albuterol/Ipratropium 1 neb 06/30/24 14:10 06/30/24 20:46 Iprat-Albut 0.5-2.5 Mg/3 Ml Neb IH 1 neb Q6H ETHEL Administration Enoxaparin Sodium 40 mg 06/30/24 21:00 06/30/24 20:46 Enoxaparin 40 Mg/0.4 Ml Inj SUBCUT 40 mg HS ETHEL Administration Guaifenesin 1,200 mg 06/30/24 14:10 06/30/24 20:47 Guaifenesin 600 Mg Tab.Er.12h PO 1,200 mg BID ETHEL Administration Piperacillin Sod/Tazobactam 100 mls @ 200 mls/hr 06/30/24 19:30 06/30/24 20:57 Sod 3.375 gm/ Sodium Chloride IVPB Infused Q6H ETHEL Infusion Sodium Chloride 1,000 mls @ 125 mls/hr 06/30/24 14:30 06/30/24 14:56 0.9 % Sodium Chloride 1000 Ml IV 125 mls/hr .Q8H ETHEL Administration Ibuprofen 600 mg 06/30/24 14:28 06/30/24 16:55 Ibuprofen 600 Mg Tablet PO 600 mg Q6H PRN Administration Lisinopril 10 mg 06/30/24 14:40 06/30/24 15:42 Lisinopril 10 Mg Tablet PO 10 mg DAILY ETHEL Administration Morphine Sulfate 2 mg 06/30/24 14:28 06/30/24 18:48 Morphine 2 Mg/Ml Inj IVP 2 mg Q2H PRN Administration Fluticasone Propion- 2 puff 06/30/24 21:00 06/30/24 20:54 Salmeterol 115-21 IH Not Given Mcg/Actuation Hfa BID ETHEL Pregabalin 200 mg 06/30/24 21:00 06/30/24 20:48 Pregabalin 100 Mg Capsule PO 200 mg TID ETHEL Administration Prochlorperazine 5 mg 06/30/24 14:28 06/30/24 17:11 Prochlorperazine 5 Mg/Ml Vial IV 5 mg Q6H PRN Administration Sodium Chloride 5 ml 06/30/24 14:10 06/30/24 18:49 Sodium Chloride 0.9 % (Flush) 10 Ml Syringe IVF 5 ml .FLUSH PRN Administration Sodium Chloride 5 ml 06/30/24 21:00 06/30/24 20:47 Sodium Chloride 0.9 % (Flush) 10 Ml Syringe IVF Not Given BID ETHEL Discontinued Medications Generic Name Dose Route Start Last Admin Trade Name Freq PRN Reason Stop Dose Admin Sodium Chloride 1,000 mls @ 500 mls/hr 06/30/24 09:32 06/30/24 14:25 0.9 % Sodium Chloride 1000 Ml IV 06/30/24 11:31 Infused .Q2H ETHEL Infusion Potassium Chloride/Sodium Chloride 1,000 mls @ 125 mls/hr 06/30/24 11:23 06/30/24 19:43 0.9 % Sodium Ch + Kcl 20 Meq/L IV Infused .Q8H ETHEL Infusion Piperacillin Sod/Tazobactam 100 mls @ 200 mls/hr 06/30/24 12:50 06/30/24 14:25 Sod 3.375 gm/ Sodium Chloride IVPB 06/30/24 12:51 Infused ONCE ONE Infusion Vancomycin HCl 2,000 mg/ 520 mls @ 260 mls/hr 06/30/24 13:30 06/30/24 14:29 Sodium Chloride IVPB 06/30/24 15:29 Not Given ONCE ONE Protocol Lactated Ringer's 1,000 mls @ 1,000 mls/hr 06/30/24 13:04 06/30/24 15:02 Lactated Ringers 1000 Ml IV 06/30/24 14:03 Infused .Q1H ONE Infusion Potassium Chloride 10 meq in 100 mls @ 100 mls/hr 06/30/24 14:10 06/30/24 18:43 Potassium Chloride IVPB 06/30/24 18:09 Infused Q90M ETHEL Infusion Lactated Ringer's 1,000 mls @ 1,000 mls/hr 06/30/24 14:28 06/30/24 18:42 Lactated Ringers 1000 Ml IV 06/30/24 15:27 Infused .Q1H ONE Infusion Vancomycin HCl 2,000 mg/ 520 mls @ 260 mls/hr 06/30/24 14:39 06/30/24 18:43 Sodium Chloride IVPB 06/30/24 15:57 Infused ONCE ONE Infusion Protocol Ketorolac Tromethamine 15 mg 06/30/24 09:32 06/30/24 09:45 Ketorolac 15 Mg/Ml Inj IVP 06/30/24 09:33 15 mg ONCE ONE Administration Methylprednisolone Sodium Succinate 125 mg 06/30/24 14:31 06/30/24 14:56 Methylprednisolone Sod Succ 62.5 Mg/Ml (125) IVP 06/30/24 14:32 125 mg ONCE ONE Administration Morphine Sulfate 2 mg 06/30/24 11:21 06/30/24 11:36 Morphine 2 Mg/Ml Inj IVP 06/30/24 11:22 2 mg ONCE ONE Administration Morphine Sulfate 2 mg 06/30/24 13:18 06/30/24 13:25 Morphine 2 Mg/Ml Inj IVP 06/30/24 13:19 2 mg ONCE ONE Administration Ondansetron HCl 4 mg 06/30/24 08:59 06/30/24 09:02 Ondansetron Odt 4 Mg Tab PO 06/30/24 09:00 4 mg ONCE ONE Administration Ondansetron HCl 4 mg 06/30/24 09:32 06/30/24 09:48 Ondansetron 2 Mg/Ml Inj IVP 06/30/24 09:33 4 mg ONCE ONE Administration Medical Decision Making Lab Data Lab results reviewed: Yes I reviewed the patient's lab results Labs: Lab Results 06/30/24 06/30/24 Range/Units 08:58 10:00 WBC 28.69 H* (4.50-11.00) K/uL RBC 5.60 H (4.00-5.20) m/uL Hgb 16.6 H (12.0-16.0) gm/dL Hct 49.6 (33.0-51.0) % MCV 89 (80-100) fL MCH 30 (26-34) pg MCHC 34 (32-36) gm/dL RDW Coeff of Mayank 14.3 (11.5-15.5) % Plt Count 565 H (140-440) K/uL Neut % (Auto) 90.2 H (42.0-72.0) % Lymph % (Auto) 4.3 L (20-44) % Riley % (Auto) 4.9 (0.0-11.0) % Eos % (Auto) 0.1 (0.0-7.0) % Baso % (Auto) 0.1 (0.0-3.0) % Neut # (Auto) 25.90 H (1.7-7.0) K/uL Lymph # (Auto) 1.20 (0.90-2.90) K/uL Riley # (Auto) 1.40 H (0.00-0.90) K/UL Eos # (Auto) 0.00 (0.00-0.50) K/uL Baso # (Auto) 0.00 (0.00-0.30) K/uL Abs Immat Gran (auto) 0.10 (0.00-0.30) K/uL Imm/Tot Granulo (auto) 0.4 % Diff Slide Review Acceptable Review (Acceptable) Sodium 139 (135-149) mmol/L Potassium 3.0 L (3.6-5.1) mmol/L Chloride 104 (96-114) mmol/L Carbon Dioxide 20 (20-32) mmol/L Anion Gap 15 (7-15) mEq/L BUN 20 (5-24) mg/dL Creatinine 0.5 (0.5-1.5) mg/dL Estimated Creat Clear 131.74 Estimated GFR 123 ml/min Glucose 133 H (60-115) mg/dL Lactate 1.8 (0.5-1.9) mmol/L Calcium 9.5 (8.4-10.6) mg/dL Total Bilirubin 0.9 (0.1-1.5) mg/dL AST 25 (12-35) U/L ALT 33 (4-35) U/L Alkaline Phosphatase 126 (40-150) U/L Troponin I < 0.01 L (0.01-0.04) ng/mL C-Reactive Protein 61.1 H (0.5-1.0) mg/dL NT-Pro-B Natriuret Pep 49 pg/mL Total Protein 8.3 (6.0-8.3) g/dL Albumin 4.4 (3.3-5.0) g/dL Procalcitonin 0.89 H (<0.50) ng/mL SARS-CoV-2 (PCR) Negative SARS-CoV-2 (Negative) Influenza Type A (PCR) Negative PCR FLU A (Negative) Influenza Type B (PCR) Negative PCR FLU B (Negative) RSV (PCR) Negative PCR RSV (Negative) Imaging Data Chest x-ray: Attestation: I have reviewed the pertinent imaging results. My impression: Left lower side on the chest x-ray seems to be more opaque, note definite infiltrate noted but certainly could be pneumonia. Radiologist's impression: Patient: ALYCIA SAINZ Facility:?[facility] Patient ID:?[id number] Site Patient ID:?[id number]. Site :?1985 Study:?XRay-Chest 1 VIEW PORTABLE-06/30/2024 10:08:12 AM Ordering Physician:Bridget Higginbotham Final Report: INDICATION: Left chest pain TECHNIQUE: 1 view chest radiograph COMPARISON: 06/26/2024, 08/17/2023 FINDINGS: Devices: None. Soft tissue attenuation from the body habitus on this image. Lung volumes are moderate and lower than before. Possible left lower lobe opacities. No pleural effusion. No pneumothorax. Heart size is normal. IMPRESSION: Soft tissue attenuation from portable technique. There may be some left lower lobe opacities. Consider PA and lateral chest radiograph. Dictated by Iram Valentin MD @ 06/30/2024 10:22:45 AM (Electronic Signature) CT scan - chest: Attestation: I have reviewed the pertinent imaging results. Radiologist's impression: Patient: ALYCIA SAINZ Facility:?[facility] Patient ID:?[id number] Site Patient ID:?[id number]. Site :?1985 Study:?CT-Chest Angio PE 95CC ISOVUE 370-06/30/2024 11:51:25 AM Ordering Physician:?Nael Higginbotham Final Report: INDICATION: Tachycardia, chest pain, recent illness. COMPARISON: Chest radiographs 06/26/2024 and 06/30/2024 TECHNIQUE: CT angiogram chest with contrast, pulmonary embolism protocol. Multiplanar axial, coronal, and sagittal reformats are included. MIP images to improve detection of pulmonary emboli are included. Intravenous contrast: 95 mL Isovue 370. FINDINGS: PE: Well-timed contrast bolus. No pulmonary emboli. Normal caliber main pulmonary artery. Normal sized right heart chambers. No reflux of contrast below the diaphragm. Airway: Expiratory appearance of the trachea. Lungs: Expiratory appearance of both lungs. Bands of linear atelectasis in the inferior aspects of both lungs. There is a small area of left lower lobe consolidation without necrosis. No pulmonary edema or emphysema. Pleura: There is a small left pleural effusion that is layering dependently and inferiorly. No septation or loculation seen. No right pleural effusion. No pneumothorax. Lymph nodes: No thoracic adenopathy. Mediastinum: No pneumomediastinum. Prominent mediastinal fat deposition. No mediastinal mass or hematoma. Heart and great vessels: No pericardial effusion. Normal cardiac chamber size. No calcified atherosclerotic plaques. No aortic aneurysm. Chest wall: Normal. No masses. Upper abdomen: Normal. Bones: No fractures. No focal bone lesions. IMPRESSION: 1. No pulmonary embolism. 2. Small focus of left lower lobe pneumonia with a left parapneumonic effusion. 3. Expiratory appearance of the airway and lungs with bilateral atelectasis. Please note that all CT scans at this facility use dose modulation, iterative reconstruction, and/or weight-based dosing when appropriate to reduce radiation dose to as low as reasonably achievable. Dictated by Iram Valentin MD @ 06/30/2024 12:28:33 PM (Electronic Signature) ECG Data Attestation: I personally reviewed and interpreted this ECG as follows: (Sinus tachycardia, 131 beats per minute. Q-waves V1 V2 without definitive ST segment change.) Prior ECG tracings: available for review (Sinus tachycardia has replaced sinus rhythm, compared to 06/26/2024. Q-waves more prominent in V2 with potential flipped T-wave now.) Discharge Plan Discharge Clinical Impression: Parapneumonic effusion, Acute hypokalemia, Hypoxia Left lower lobe pneumonia Qualifiers: Pneumonia type: due to unspecified organism Qualified Code(s): J18.9 - Pneumonia, unspecified organism Asthma Qualifiers: Asthma severity: unspecified severity Asthma persistence: unspecified Asthma complication type: uncomplicated Qualified Code(s): J45.909 - Unspecified asthma, uncomplicated Patient Disposition: Admitted As Observation
--- NOTE | 2024-06-30 09:32 | CRLHL7_ITS ---
For Patients: As a result of the Century Cures Act, medical imaging exams and procedure reports are released immediately into your electronic medical record. You may view this report before your referring provider. If you have questions, please contact your health care provider. INDICATION: Left chest pain TECHNIQUE: 1 view chest radiograph COMPARISON: 06/26/2024, 08/17/2023 FINDINGS: Devices: None. Soft tissue attenuation from the body habitus on this image. Lung volumes are moderate and lower than before. Possible left lower lobe opacities. No pleural effusion. No pneumothorax. Heart size is normal. IMPRESSION: Soft tissue attenuation from portable technique. There may be some left lower lobe opacities. Consider PA and lateral chest radiograph. Dictated by Iram Valentin MD @ 06/30/2024 10:22:45 AM (Electronically Signed)
[2024-06-30 09:44] LABS: PCR FLU A Negative PCR FLU A (Negative); PCR FLU B Negative PCR FLU B (Negative); PCR RSV Negative PCR RSV (Negative); SARS PCR* Negative SARS-CoV-2 (Negative)
[2024-06-30] MEDS: KETOROLAC 15 MG/ML inj IVP (09:45)
[2024-06-30] MEDS: ONDANSETRON 2 MG/ML inj 4 MG IVP (09:48)
[2024-06-30] MEDS: 0.9 % SODIUM CHLORIDE 1000 ml 1,000 ML 500 ML IV (09:50)
[2024-06-30 10:03] LABS: Lactate* 1.8 mmol/L (0.5-1.9)
[2024-06-30 10:16] LABS: Basophils Percent Auto 0.1 % (0.0-3.0); Eosinophils Percent Auto 0.1 % (0.0-7.0); Hematocrit 49.6 % (33.0-51.0); Hemoglobin* 16.6 gm/dL (12.0-16.0); Immature Granulocytes Pct Auto 0.4 %; Lymphocytes Percent Auto 4.3 % (20-44); Mean Corpuscular HGB Conc 34 gm/dL (32-36); Mean Corpuscular Hemoglobin 30 pg (26-34); Mean Corpuscular Volume 89 fL (80-100); Monocytes Percent Auto 4.9 % (0.0-11.0); Neutrophils Percent Auto 90.2 % (42.0-72.0); Platelet Count* 565 K/uL (140-440); RDW Coefficient of Variation % 14.3 % (11.5-15.5)
[2024-06-30 10:21] LABS: Albumin* 4.4 g/dL (3.3-5.0); Chloride* 104 mmol/L (96-114)
[2024-06-30 10:22] LABS: Sodium* 139 mmol/L (135-149)
[2024-06-30 10:24] LABS: Anion Gap 15 mEq/L (7-15); Carbon Dioxide* 20 mmol/L (20-32); Creatinine* 0.5 mg/dL (0.5-1.5); Est. Creatinine Clearance* 131.74; Estimated Glomerular Filt Rate 123 ml/min
[2024-06-30 10:25] LABS: Alanine Aminotransferase* 33 U/L (4-35); Alkaline Phosphatase* 126 U/L (40-150); Aspartate Amino Transferase* 25 U/L (12-35); Bilirubin Total* 0.9 mg/dL (0.1-1.5); Blood Urea Nitrogen* 20 mg/dL (5-24); Calcium* 9.5 mg/dL (8.4-10.6); Glucose* 133 mg/dL (60-115); Total Protein* 8.3 g/dL (6.0-8.3); White Blood Count* 28.69 K/uL (4.50-11.00)
[2024-06-30 10:26] LABS: Slide Review Reflex Yes
--- NOTE | 2024-06-30 10:28 | CRLHL7_ITS ---
For Patients: As a result of the Century Cures Act, medical imaging exams and procedure reports are released immediately into your electronic medical record. You may view this report before your referring provider. If you have questions, please contact your health care provider. INDICATION: Tachycardia, chest pain, recent illness. COMPARISON: Chest radiographs 06/26/2024 and 06/30/2024 TECHNIQUE: CT angiogram chest with contrast, pulmonary embolism protocol. Multiplanar axial, coronal, and sagittal reformats are included. MIP images to improve detection of pulmonary emboli are included. Intravenous contrast: 95 mL Isovue 370. FINDINGS: PE: Well-timed contrast bolus. No pulmonary emboli. Normal caliber main pulmonary artery. Normal sized right heart chambers. No reflux of contrast below the diaphragm. Airway: Expiratory appearance of the trachea. Lungs: Expiratory appearance of both lungs. Bands of linear atelectasis in the inferior aspects of both lungs. There is a small area of left lower lobe consolidation without necrosis. No pulmonary edema or emphysema. Pleura: There is a small left pleural effusion that is layering dependently and inferiorly. No septation or loculation seen. No right pleural effusion. No pneumothorax. Lymph nodes: No thoracic adenopathy. Mediastinum: No pneumomediastinum. Prominent mediastinal fat deposition. No mediastinal mass or hematoma. Heart and great vessels: No pericardial effusion. Normal cardiac chamber size. No calcified atherosclerotic plaques. No aortic aneurysm. Chest wall: Normal. No masses. Upper abdomen: Normal. Bones: No fractures. No focal bone lesions. IMPRESSION: 1. No pulmonary embolism. 2. Small focus of left lower lobe pneumonia with a left parapneumonic effusion. 3. Expiratory appearance of the airway and lungs with bilateral atelectasis. Please note that all CT scans at this facility use dose modulation, iterative reconstruction, and/or weight-based dosing when appropriate to reduce radiation dose to as low as reasonably achievable. Dictated by Iram Valentin MD @ 06/30/2024 12:28:33 PM (Electronically Signed)
[2024-06-30 10:54] LABS: NT Pro B Type NatriureticPept* 49 pg/mL; Troponin I* < 0.01 ng/mL (0.01-0.04)
[2024-06-30 11:28] LABS: Slide Review Acceptable Review (Acceptable)
[2024-06-30] MEDS: MORPHINE 2 MG/ML inj IVP ×5 (11:36→22:38)
[2024-06-30] MEDS: 0.9 % SODIUM CH + KCL 20 mEq/L 1,000 ML 125 ML IV (12:11)
[2024-06-30] MEDS: PIPERACILLIN/TAZOBACTAM 3.375 GM in 0.9 % SODIUM CHLORIDE Mini-bag 100 ML IVPB ×2 (13:21→20:03)
[2024-06-30] MEDS: LACTATED RINGERS 1000 ML 1,000 ML IV ×2 (13:28→14:52)
--- NOTE | 2024-06-30 14:15 | PM.IMHP1 ---
Hospitalist- H&P: HPI History of Present Illness Date Seen: 06/30/24 Chief complaint: All over pain/can't keep anything down Narrative: Melinda Kumar is a 39 year old female past medical history significant for chronic pain, low back pain, spondylosis lumbar region, hypertension, asthma, iron deficiency anemia, herpes zoster, anxiety, MDD is admitted to the medical floor from the ED for further management sepsis in setting of acute left lower lobe pneumonia. According to EMR, patient was initially seen in the outpatient clinic on 06/11/2024 for a dry cough and congestion of 2 weeks. At that time she was prescribed a Z-Jenaro DuoNebs Flonase and Tessalon. She was seen in this ED on 06/26/2024 with ongoing illness and was prescribed again azithromycin and prednisone. She began vomiting last night with a few episodes of loose stools. Presented to the ED today acutely worsening illness complaining of generalized body aches, vomiting, low-grade fevers, worsening shortness of breath. In the ED she was hypoxic at 88% on room air. She complains of chest tightness and pain all over her chest. She has had both a dry and productive cough. She has been using her nebulizers without success. She has taken the antibiotics and steroids as prescribed. Denies UTI symptoms though has not urinated much today. Has not taken her home medications for at least 2 days. She is a smoker, 1.5-2 packs per day but has cut way back while being ill for the last several weeks. Rare alcohol use. Her primary care provider is [facility] in [place]. In the ED, patient was noted to be septic with tachycardia, tachypnea, and elevated white count. CTA of the chest was done ruling out PE, notable for left lower lobe pneumonia and a peripneumonic effusion. Review of Systems Narrative: REVIEW OF SYSTEMS: Complete review of systems performed and negative unless otherwise stated in HPI or below. [facility] Medical History Intervertebral disc disorder with radiculopathy of lumbar region ?M51.16 - Intervertebral disc disorders with radiculopathy, lumbar region (ICD-10) Low back pain ?M54.50 - Low back pain, unspecified (ICD-10) Major depressive disorder ?F32.9 - Major depressive disorder, single episode, unspecified (ICD-10) Anxiety ?F41.9 - Anxiety disorder, unspecified (ICD-10) Herpes zoster ?B02.9 - Zoster without complications (ICD-10) Iron deficiency anemia ?D50.9 - Iron deficiency anemia, unspecified (ICD-10) Hypertension ?I10 - Essential (primary) hypertension (ICD-10) Surgical History History of hysterectomy ?Z90.710 - Acquired absence of both cervix and uterus (ICD-10) Social History What is your current living situation?: I presently have a place to live Problems where you live: no known problems Problems where you live details: N/A In the past 12 months, utilities in danger of being shut off: no In past 12 months, lack of transportation kept you from medical appts, meetings, work, or getting things needed for daily living: no In the past 12 mos, have been you worried that your food would run out before you had money to buy more?: never true In the past 12 mos, the food you bought just didn't last and you didn't have money to buy more?: never true Highest level of school completed/degree received: high school graduate Smoking Status: Former smoker What tobacco products do you use: cigarettes Smoking quit date/years: <= 15 years ago Do you use any of these nicotine containing products: None Nicotine containing products detail: 2 weeks Second hand tobacco smoke exposure: No How often do you have a drink containing alcohol: monthly or less How often do you have six or more drinks on one occasion: Never AUDIT-C Alcohol total score: 1 Non-prescribed substance use: denies use Caffeine: Yes (Mtn Dew 1-2 daily) How often does anyone, including family, friends and others, physically hurt you: never How often does anyone, including family, friends and others, insult or talk down to you: never How often does anyone, including family, friends and others, threaten you with harm: never How often does anyone, including family, friends and others, scream or curse at you: never service: No Meds Home Medications and Allergies Home Medications ?Medication ?Instructions ?Recorded ?Confirmed ?Type albuterol sulfate 2.5 mg/3 mL 2.5 mg inhalation Q4H PRN wheezing 08/17/23 06/30/24 History (0.083 %) solution for nebulization albuterol sulfate 90 mcg/actuation 2 puff inhalation Q4H PRN wheezing 08/17/23 06/30/24 History aerosol inhaler (Ventolin HFA) bupropion HCl 150 mg 24 hr tablet, 150 mg PO QAM 08/17/23 06/30/24 History extended release bupropion HCl 300 mg 24 hr tablet, 300 mg PO QAM 08/17/23 06/30/24 History extended release cholecalciferol (vitamin D3) 50 50 mcg PO DAILY 08/17/23 06/30/24 History mcg (2,000 unit) capsule elagolix 150 mg tablet (Orilissa) 150 mg PO DAILY 08/17/23 06/30/24 History fluticasone propionate 115 2 puff inhalation Q12H 08/17/23 06/30/24 History mcg-salmeterol 21 mcg/actuation HFA inhaler lisinopril 10 mg tablet 10 mg PO DAILY 08/17/23 06/30/24 History lorazepam 0.5 mg tablet 0.5 mg PO DAILY PRN anxiety 08/17/23 06/30/24 History pregabalin 200 mg capsule 200 mg PO 3XD 08/17/23 06/30/24 History trazodone 50 mg tablet 50 - 200 mg PO HS PRN insomnia 08/17/23 06/30/24 History azithromycin 250 mg tablet 250 mg PO DAILY 06/30/24 06/30/24 History cariprazine 4.5 mg capsule 4.5 mg PO DAILY 06/30/24 06/30/24 History (Vraylar) dextroamphetamine sulfate 15 mg 15 mg PO DAILY 06/30/24 06/30/24 History capsule,extended release dextroamphetamine-amphetamine 10 1 tab PO DAILY@1200 06/30/24 06/30/24 History mg tablet duloxetine 60 mg capsule,delayed 60 mg PO DAILY 06/30/24 06/30/24 History release ipratropium 0.5 mg-albuterol 3 mg 3 ml inhalation Q4H PRN 06/30/24 06/30/24 History (2.5 mg base)/3 mL nebulization soln Allergies Allergy/AdvReac Type Severity Reaction Status Date / Time No Known Allergies Allergy Verified 06/30/24 11:41 Exam Narrative: Exam Narrative: PHYSICAL EXAM General: Patient appears ill, move slowly with generalized pains, appropriately conversant HEENT: Normocephalic, atraumatic, sclera white, EOMI, oral mucosa moist Cardiovascular: Tachycardic. No pitting edema Pulmonary: Unable to take a full deep breath secondary to discomfort, short superficial breaths are noted with expiratory wheezes Neurological: Alert, answering questions appropriately, cranial nerves intact, no focal findings Extremities: No gross joint deformity or swelling. AROMI. Neurovascularly intact Skin: Warm, dry. Const: Vital Signs, click to edit/add: Vital Signs - 24 hr 06/30/24 08:54 06/30/24 09:32 06/30/24 10:12 Temperature 97.6 F Pulse Rate 130 H Pulse Rate [Pulse Oximeter] 112 H Respiratory Rate 26 H Blood Pressure Blood Pressure [Ri ght Arm] Blood Pressure [Ri ght Upper Arm] 115/85 Pulse Oximetry 93 92 89 Oxygen Delivery Me thod Room Air Oxygen Flow Rate 06/30/24 10:13 06/30/24 10:15 06/30/24 10:30 Temperature Pulse Rate 129 H 128 H 115 H Pulse Rate [Pulse Oximeter] Respiratory Rate Blood Pressure 124/93 H Blood Pressure [Ri ght Arm] Blood Pressure [Ri ght Upper Arm] Pulse Oximetry 88 90 92 Oxygen Delivery Me thod Nasal Cannula Nasal Cannula Oxygen Flow Rate 1 1 06/30/24 10:32 06/30/24 10:45 06/30/24 11:00 Temperature Pulse Rate 115 H 118 H 118 H Pulse Rate [Pulse Oximeter] Respiratory Rate Blood Pressure 134/106 H Blood Pressure [Ri ght Arm] Blood Pressure [Ri ght Upper Arm] Pulse Oximetry 93 91 94 Oxygen Delivery Me thod Nasal Cannula Nasal Cannula Nasal Cannula Oxygen Flow Rate 1 1 1 06/30/24 11:03 06/30/24 11:15 06/30/24 11:20 Temperature 97.3 F L Pulse Rate 116 H 115 H Pulse Rate [Pulse Oximeter] Respiratory Rate Blood Pressure 139/66 Blood Pressure [Ri ght Arm] Blood Pressure [Ri ght Upper Arm] Pulse Oximetry 93 93 Oxygen Delivery Me thod Nasal Cannula Nasal Cannula Oxygen Flow Rate 1 1 06/30/24 13:58 Temperature 97.0 F L Pulse Rate Pulse Rate [Pulse Oximeter] 109 H Respiratory Rate 30 H Blood Pressure Blood Pressure [Ri ght Arm] 173/107 H Blood Pressure [Ri ght Upper Arm] Pulse Oximetry 91 Oxygen Delivery Me thod Room Air Oxygen Flow Rate Hospitalist - H&P: Result Labs Labs: Short CBC 06/30/24 Range/Units 10:00 WBC 28.69 H* (4.50-11.00) K/uL Hgb 16.6 H (12.0-16.0) gm/dL Hct 49.6 (33.0-51.0) % Plt Count 565 H (140-440) K/uL BMP 06/30/24 10:00 Sodium 139 Potassium 3.0 L Chloride 104 Carbon Dioxide 20 BUN 20 Creatinine 0.5 Glucose 133 H Calcium 9.5 Cardiac Enzymes 06/30/24 Range/Units 10:00 Troponin I < 0.01 L (0.01-0.04) ng/mL Liver Function 06/30/24 Range/Units 10:00 Total Bilirubin 0.9 (0.1-1.5) mg/dL AST 25 (12-35) U/L ALT 33 (4-35) U/L Alkaline Phosphatase 126 (40-150) U/L Albumin 4.4 (3.3-5.0) g/dL ECG Attestation: I personally reviewed and interpreted this ECG as follows: Interpretation: Sinus tachycardia, ventricular rate 131, QTC 472 Imaging Chest x-ray: Attestation: I have reviewed the pertinent imaging results. Radiologist's impression: Devices: None. Soft tissue attenuation from the body habitus on this image. Lung volumes are moderate and lower than before. Possible left lower lobe opacities. No pleural effusion. No pneumothorax. Heart size is normal. IMPRESSION: Soft tissue attenuation from portable technique. There may be some left lower lobe opacities. Consider PA and lateral chest radiograph. CTA chest: Attestation: I have reviewed the pertinent imaging results. Radiologist's impression: PE: Well-timed contrast bolus. No pulmonary emboli. Normal caliber main pulmonary artery. Normal sized right heart chambers. No reflux of contrast below the diaphragm. Airway: Expiratory appearance of the trachea. Lungs: Expiratory appearance of both lungs. Bands of linear atelectasis in the inferior aspects of both lungs. There is a small area of left lower lobe consolidation without necrosis. No pulmonary edema or emphysema. Pleura: There is a small left pleural effusion that is layering dependently and inferiorly. No septation or loculation seen. No right pleural effusion. No pneumothorax. Lymph nodes: No thoracic adenopathy. Mediastinum: No pneumomediastinum. Prominent mediastinal fat deposition. No mediastinal mass or hematoma. Heart and great vessels: No pericardial effusion. Normal cardiac chamber size. No calcified atherosclerotic plaques. No aortic aneurysm. Chest wall: Normal. No masses. Upper abdomen: Normal. Bones: No fractures. No focal bone lesions. IMPRESSION: 1. No pulmonary embolism. 2. Small focus of left lower lobe pneumonia with a left parapneumonic effusion. 3. Expiratory appearance of the airway and lungs with bilateral atelectasis. Assessment and Plan Assessment and plan (1) Sepsis: Problem comment: -WBC 28.69 with left shift, tachycardic, tachypneic, lactate 1.8, suspected source left lower lobe pneumonia -BC x1 ordered, UC ordered -on admission to floor, will receive 3rd bolus IVF followed by maintenance fluids -continue IV Zosyn and IV vancomycin Status: Acute (2) Left lower lobe pneumonia: Problem comment: -CT shows small focus of left lower lobe pneumonia with left parapneumonic effusion -leukocytosis WBC 28.69, lactate 1.8, triple swab negative -continue IV Zosyn and IV vancomycin -Mucinex b.i.d., Tessalon Perles p.r.n. -procalcitonin, strep pneumo/Legionella, sputum culture/Gram stain ordered Status: Acute (3) Parapneumonic effusion: Problem comment: -as noted on CT Status: Acute (4) Asthma with acute exacerbation: Problem comment: -methylprednisolone 125 mg on admission to the floor, continue 40 mg q.8 hours -DuoNebs scheduled q.6 hours, albuterol nebs q.2 hours p.r.n. -aerobika, incentive spirometry -oxygen supplementation to maintain saturations > 90%, weaning as able -RT for pulmonary support Status: Acute (5) Hypoxia: Problem comment: -oxygen saturation 88% on room air in ED. management as above, continue to monitor Status: Acute (6) Dehydration: Problem comment: -in setting of sepsis, recent vomiting, hemoglobin 16.6, platelets 565 -continue IV hydration, orals as tolerated Status: Acute (7) Acute hypokalemia: Problem comment: -potassium 3.0, in setting of vomiting and sepsis -IV replacement for now, recheck this evening Status: Acute (8) Vomiting: Problem comment: -Compazine p.r.n. (QTC >470), IVF, orals as tolerated Status: Acute (9) Hypertension: Problem comment: -hypertensive on admission, has been unable to take home meds secondary to illness -continue lisinopril Status: Acute (10) Anxiety: Problem comment: -continue home medications Status: Acute (11) Major depressive disorder: Problem comment: -continue home medications Status: Acute Total Time Spent Total Time Spent: Total time spent caring for the patient today was 75 minutes. This includes time spent for the visit reviewing the chart, time spent during the visit, time spent after the visit and documentation and planning in coordination of care.
[2024-06-30] MEDS: ACETAMINOPHEN 325 MG TABLET 1000 MG PO (14:35)
[2024-06-30] MEDS: guaiFENesin 600 MG TAB.ER.12H 1200 MG PO ×2 (14:35→20:47)
[2024-06-30] MEDS: IPRAT-ALBUT 0.5-2.5 MG/3 ML NEB 1 NEB IH ×2 (14:35→20:46)
[2024-06-30] MEDS: POTASSIUM CHLORIDE 10 MEQ/100 ML PIGGYBACK 100 MEQ IVPB ×3 (14:52→16:55)
--- NOTE | 2024-06-30 14:54 | RESP.RT ---
DuoNeb given inline with Aerobika, patient has weak to fair inhalation with weak chest shake. Aerobika promoted good productive, wet, cough, during and after treatment, swallowed secretions. BBS with all bowie diminished, with fine crackle noted, Left lower lobe with expiratory end wheeze noted.
[2024-06-30] MEDS: 0.9 % SODIUM CHLORIDE 1000 ml 1,000 ML 125 ML IV ×2 (14:56→23:10)
[2024-06-30] MEDS: METHYLPREDNISOLONE SOD SUCC 62.5 MG/ML (125) 125 MG IVP (14:56)
[2024-06-30] MEDS: lisinopriL 10 MG TABLET PO (15:42)
[2024-06-30 16:02] LABS: Appearance Urine Clear (Clear); Bilirubin Urine 1+ (Negative); Blood Urine 1+ (Negative); Color Urine Yellow (Yellow); Glucose Urine Negative (Negative); Ketones Urine 4+ (Negative); Leukocyte Esterase Urine Negative (Negative); Nitrite Urine Negative (Negative); Protein Urine 3+ (Negative); Specific Gravity Urine 1.015 (1.000-1.030)
[2024-06-30 16:16] LABS: Bacteria Urine Few; Squamous Epithelial Cell Urine Moderate (None-Few)
[2024-06-30 16:39] LABS: Procalcitonin* 0.89 ng/mL (<0.50)
[2024-06-30] MEDS: IBUPROFEN 600 MG TABLET PO (16:55)
[2024-06-30 17:06] LABS: Legionella pneumo Ag Urine L. pneumo Negative (Negative); S pneumo Ag Urine S. pneumo Negative (Negative)
[2024-06-30] MEDS: PROCHLORPERAZINE 5 MG/ML VIAL IV (17:11)
[2024-06-30] MEDS: SODIUM CHLORIDE 0.9 % (FLUSH) 10 ML SYRINGE 5 ML IVF ×2 (17:11→18:49)
[2024-06-30 17:30] LABS: C Reactive Protein* 61.1 mg/dL (0.5-1.0)
--- NOTE | 2024-06-30 19:43 | PC.NURSE ---
Admission-- Pleasant and cooperative, alert and oriented patient was admitted to Med-Surg via cart. Pt tachycardic with HR in 110s, hypertensive with B/P 170/100, tachypneic with RR as high as 30bpm and afebrile. SpO2 86-87% on RA. 90-92% on 2L per n.c. She c/o sharp intermittent pain in her left side which she rated as high as 10 out of 10 and which appears well managed with Motrin, Tylenol, Morphine and an ice pack. Telemetry shows sinus tachycardia. LS coarse and diminished with a few fine crackles in the bases and expiratory wheezes noted. Pt has an intermittent cough and states occasional yellow sputum, but none this shift. She c/o nausea and was given compazine once and ate half a regular dinner this evening. She was up to the commode with SBA and tolerated it fair. Report to KEVIN Cutler.
[2024-06-30] MEDS: ENOXAPARIN 40 MG/0.4 ML INJ SUBCUT (20:46)
[2024-06-30] MEDS: PREGABALIN 100 MG CAPSULE 200 MG PO (20:48)
[2024-06-30 21:26] LABS: Potassium* 3.2 mmol/L (3.6-5.1)
[2024-06-30] MEDS: METHYLPREDNISOLONE SOD SUCC 40 MG/ML IVP (22:38)
[2024-07-01] VITALS (9 sets, daily range): BP systolic 131–145; BP diastolic 78–99; PULSE 89–108; RESP 18–22; TEMP 36.3–36.8; O2SAT 89–91
[2024-07-01] MEDS: POTASSIUM BICARB 25 MEQ EFFERVESCENT TAB PO ×2 (02:16→02:41)
[2024-07-01] MEDS: PIPERACILLIN/TAZOBACTAM 3.375 GM in 0.9 % SODIUM CHLORIDE Mini-bag 100 ML IVPB ×4 (02:17→19:30)
[2024-07-01] MEDS: MORPHINE 2 MG/ML inj IVP ×8 (02:17→22:41)
[2024-07-01] MEDS: TRAZODONE HCL 50 MG TABLET PO (02:18)
[2024-07-01] MEDS: IPRAT-ALBUT 0.5-2.5 MG/3 ML NEB 1 NEB IH ×4 (02:18→20:31)
[2024-07-01] MEDS: VANCOMYCIN 1.5 GM/300 ML 1.5 GM/300 ML PIGGYBACK IVPB ×2 (04:05→16:32)
[2024-07-01 06:42] LABS: Hematocrit 37.3 % (33.0-51.0); Hemoglobin* 12.4 gm/dL (12.0-16.0); Mean Corpuscular HGB Conc 33 gm/dL (32-36); Mean Corpuscular Hemoglobin 30 pg (26-34); Mean Corpuscular Volume 89 fL (80-100); Platelet Count* 461 K/uL (140-440); Red Blood Count 4.17 m/uL (4.00-5.20); White Blood Count* 24.94 K/uL (4.50-11.00)
[2024-07-01 06:48] LABS: Slide Review Reflex No
[2024-07-01 06:58] LABS: Chloride* 107 mmol/L (96-114)
[2024-07-01 06:59] LABS: Potassium* 3.1 mmol/L (3.6-5.1); Sodium* 137 mmol/L (135-149)
[2024-07-01 07:01] LABS: Creatinine* 0.3 mg/dL (0.5-1.5); Estimated Glomerular Filt Rate 139 ml/min
[2024-07-01 07:02] LABS: Anion Gap 8 mEq/L (7-15); Blood Urea Nitrogen* 10 mg/dL (5-24); Calcium* 7.9 mg/dL (8.4-10.6); Carbon Dioxide* 22 mmol/L (20-32); Glucose* 136 mg/dL (60-115)
[2024-07-01] MEDS: METHYLPREDNISOLONE SOD SUCC 40 MG/ML IVP ×3 (07:08→22:34)
--- NOTE | 2024-07-01 07:27 | PM.IMPN1 ---
Progress Note: A&P Assessment and plan (1) Sepsis: Problem details: -WBC 28.69 with left shift, tachycardic, tachypneic, lactate 1.8, suspected source left lower lobe pneumonia -BC x1 and UC pending -on admission to floor, will receive 3rd bolus IVF followed by maintenance fluids -continue IV Zosyn and IV vancomycin 07/01 WBC trending down, CRP trending down, tachycardia and tachypnea resolved, remains afebrile Status: Acute (2) Left lower lobe pneumonia: Problem details: -CT shows small focus of left lower lobe pneumonia with left parapneumonic effusion -leukocytosis WBC 28.69, lactate 1.8, triple swab negative -continue IV Zosyn and IV vancomycin -Mucinex b.i.d., Tessalon Perles p.r.n. -procalcitonin 0.89, strep pneumo/Legionella negative, sputum culture/Gram stain ordered Status: Acute (3) Parapneumonic effusion: Problem details: -as noted on CT Status: Acute (4) Asthma with acute exacerbation: Problem details: -methylprednisolone 125 mg on admission to the floor, continue 40 mg q.8 hours -DuoNebs scheduled q.6 hours, albuterol nebs q.4 hours scheduled, q2 hours p.r.n. -aerobika, incentive spirometry -oxygen supplementation to maintain saturations > 90%, weaning as able -RT for pulmonary support Status: Acute (5) Hypoxia: Problem details: -oxygen saturation 88% on room air in ED. management as above, continue to monitor Status: Acute (6) Dehydration: Problem details: -in setting of sepsis, recent vomiting, hemoglobin 16.6, platelets 565 -continue IV hydration, orals as tolerated - okay to DC maintenance fluids when adequate oral intake Status: Acute (7) Acute hypokalemia: Problem details: -potassium 3.0, in setting of vomiting and sepsis -3.1 following IV replacement, initiate scheduled or replacement and continue to monitor -magnesium level ordered Status: Acute (8) Vomiting: Problem details: -Compazine p.r.n. (QTC >470), IVF, orals as tolerated - no further vomiting overnight Status: Acute (9) Hypertension: Problem details: -hypertensive on admission, has been unable to take home meds secondary to illness -continue lisinopril Status: Acute (10) Anxiety: Problem details: -continue home medications Status: Acute (11) Major depressive disorder: Problem details: -continue home medications Status: Acute Time Spent With Patient Total time spent: Total time spent caring for the patient today was 45 minutes. This includes time spent for the visit reviewing the chart, time spent during the visit, time spent after the visit and documentation and planning in coordination of care. Subjective Date Seen: 07/01/24 Interval history: Patient is seen lying in bed this morning. Reports feeling a little better and appears slightly better. Still dyspneic. Still complains of pain all over. Does have a history of fibromyalgia as well. Remains afebrile. Oxygen saturation low 90s on 1-3 L O2 supplement. Tolerating orals now without nausea vomiting. Tachycardia and tachypnea resolved. WBC trending down. Hemoglobin and platelets improved. Potassium remains low at 3.1. BC/UC pending. Exam Narrative: Exam Narrative: PHYSICAL EXAM General: Improved this morning, smiling, appropriately conversant Cardiovascular: RRR. No pitting edema Pulmonary: Still unable to take a full deep breath secondary to discomfort, short superficial breaths are noted with expiratory wheezes Neurological: Alert, answering questions appropriately, cranial nerves intact, no focal findings Extremities: No gross joint deformity or swelling. AROMI. Neurovascularly intact Skin: Warm, dry. Const: Vital Signs, click to edit/add: Vital Signs - 24 hr 06/30/24 08:54 06/30/24 09:32 06/30/24 10:12 Temperature 97.6 F Pulse Rate 130 H Pulse Rate [Pulse Oximeter] 112 H Respiratory Rate 26 H Blood Pressure Blood Pressure [Ri ght Arm] Blood Pressure [Ri ght Upper Arm] 115/85 Pulse Oximetry 93 92 89 Oxygen Delivery Me thod Room Air Oxygen Flow Rate 06/30/24 10:13 06/30/24 10:15 06/30/24 10:30 Temperature Pulse Rate 129 H 128 H 115 H Pulse Rate [Pulse Oximeter] Respiratory Rate Blood Pressure 124/93 H Blood Pressure [Ri ght Arm] Blood Pressure [Ri ght Upper Arm] Pulse Oximetry 88 90 92 Oxygen Delivery Me thod Nasal Cannula Nasal Cannula Oxygen Flow Rate 1 1 06/30/24 10:32 06/30/24 10:45 06/30/24 11:00 Temperature Pulse Rate 115 H 118 H 118 H Pulse Rate [Pulse Oximeter] Respiratory Rate Blood Pressure 134/106 H Blood Pressure [Ri ght Arm] Blood Pressure [Ri ght Upper Arm] Pulse Oximetry 93 91 94 Oxygen Delivery Me thod Nasal Cannula Nasal Cannula Nasal Cannula Oxygen Flow Rate 1 1 1 06/30/24 11:03 06/30/24 11:15 06/30/24 11:20 Temperature 97.3 F L Pulse Rate 116 H 115 H Pulse Rate [Pulse Oximeter] Respiratory Rate Blood Pressure 139/66 Blood Pressure [Ri ght Arm] Blood Pressure [Ri ght Upper Arm] Pulse Oximetry 93 93 Oxygen Delivery Me thod Nasal Cannula Nasal Cannula Oxygen Flow Rate 1 1 06/30/24 13:45 06/30/24 13:58 06/30/24 14:10 Temperature 97.0 F L Pulse Rate 118 H Pulse Rate [Pulse Oximeter] 109 H Respiratory Rate 30 H 24 Blood Pressure Blood Pressure [Ri ght Arm] 173/107 H Blood Pressure [Ri ght Upper Arm] Pulse Oximetry 91 93 Oxygen Delivery Me thod Room Air Nasal Cannula Oxygen Flow Rate 1 06/30/24 14:10 06/30/24 17:05 06/30/24 19:00 Temperature 97.7 F Pulse Rate Pulse Rate [Pulse Oximeter] 98 Respiratory Rate 30 H 24 18 Blood Pressure Blood Pressure [Ri ght Arm] 140/97 H Blood Pressure [Ri ght Upper Arm] Pulse Oximetry 92 92 91 Oxygen Delivery Me thod Nasal Cannula Nasal Cannula Room Air Oxygen Flow Rate 1 2 06/30/24 23:00 06/30/24 23:00 07/01/24 00:56 Temperature 97.6 F Pulse Rate 89 Pulse Rate [Pulse Oximeter] 94 94 Respiratory Rate 18 18 Blood Pressure Blood Pressure [Ri ght Arm] 145/97 H Blood Pressure [Ri ght Upper Arm] Pulse Oximetry 90 Oxygen Delivery Me thod Room Air Oxygen Flow Rate 07/01/24 03:00 Temperature 97.6 F Pulse Rate Pulse Rate [Pulse Oximeter] 94 Respiratory Rate 18 Blood Pressure Blood Pressure [Ri ght Arm] 140/88 H Blood Pressure [Ri ght Upper Arm] Pulse Oximetry 90 Oxygen Delivery Me thod Nasal Cannula Oxygen Flow Rate 3 Labs Labs: Laboratory Results - last 24 hr 06/30/24 06/30/24 06/30/24 08:58 10:00 14:10 WBC 28.69 H* RBC 5.60 H Hgb 16.6 H Hct 49.6 MCV 89 MCH 30 MCHC 34 RDW Coeff of [place] 14.3 Plt Count 565 H Neut % (Auto) 90.2 H Lymph % (Auto) 4.3 L [place] % (Auto) 4.9 Eos % (Auto) 0.1 Baso % (Auto) 0.1 Neut # (Auto) 25.90 H Lymph # (Auto) 1.20 [place] # (Auto) 1.40 H Eos # (Auto) 0.00 Baso # (Auto) 0.00 Abs Immat Gran (auto) 0.10 Imm/Tot Granulo (auto) 0.4 Diff Slide Review Acceptable Review Sodium 139 Potassium 3.0 L Chloride 104 Carbon Dioxide 20 Anion Gap 15 BUN 20 Creatinine 0.5 Estimated Creat Clear 131.74 Estimated GFR 123 Glucose 133 H Lactate 1.8 Calcium 9.5 Total Bilirubin 0.9 AST 25 ALT 33 Alkaline Phosphatase 126 Troponin I < 0.01 L C-Reactive Protein 61.1 H NT-Pro-B Natriuret Pep 49 Total Protein 8.3 Albumin 4.4 Procalcitonin 0.89 H Urine Color Urine Appearance Urine pH Ur Specific [place] Urine Protein Urine Glucose (UA) Urine Ketones Urine Blood Urine Nitrite Urine Bilirubin Urine Urobilinogen Ur Leukocyte Esterase Urine RBC Urine WBC Ur Squamous Epith Cells Urine Bacteria Urine HCG, Qual Urine L. pneumophilia Ag Urine Strep pneumoniae Ag SARS-CoV-2 (PCR) Negative SARS-CoV-2 Influenza Type A (PCR) Negative PCR FLU A Influenza Type B (PCR) Negative PCR FLU B RSV (PCR) Negative PCR RSV Lab Acknowledgement Test Added 06/30/24 06/30/24 07/01/24 15:50 21:02 06:15 WBC 24.94 H RBC 4.17 Hgb 12.4 Hct 37.3 MCV 89 MCH 30 MCHC 33 RDW Coeff of [place] Plt Count 461 H Neut % (Auto) Lymph % (Auto) [place] % (Auto) Eos % (Auto) Baso % (Auto) Neut # (Auto) Lymph # (Auto) [place] # (Auto) Eos # (Auto) Baso # (Auto) Abs Immat Gran (auto) Imm/Tot Granulo (auto) Diff Slide Review Sodium 137 Potassium 3.2 L 3.1 L Chloride 107 Carbon Dioxide 22 Anion Gap 8 BUN 10 Creatinine 0.3 L Estimated Creat Clear 219.56 Estimated GFR 139 Glucose 136 H Lactate Calcium 7.9 L Total Bilirubin AST ALT Alkaline Phosphatase Troponin I C-Reactive Protein NT-Pro-B Natriuret Pep Total Protein Albumin Procalcitonin Urine Color Yellow Urine Appearance Clear Urine pH 7.0 Ur Specific [place] 1.015 Urine Protein 3+ A Urine Glucose (UA) Negative Urine Ketones 4+ A Urine Blood 1+ A Urine Nitrite Negative Urine Bilirubin 1+ A Urine Urobilinogen 1.0 Ur Leukocyte Esterase Negative Urine RBC 2-5 A Urine WBC 5-10 A Ur Squamous Epith Cells Moderate A Urine Bacteria Few A Urine HCG, Qual Cancelled Urine L. pneumophilia Ag L. pneumo Negative Urine Strep pneumoniae Ag S. pneumo Negative SARS-CoV-2 (PCR) Influenza Type A (PCR) Influenza Type B (PCR) RSV (PCR) Lab Acknowledgement
--- NOTE | 2024-07-01 07:36 | PC.NURSE ---
Pt alert and oriented. Pt desats at times to 87%, recovers quickly, and is otherwise vitally stable. Pt uses areobika, cough and deep breathing all appropriately and was educated on importance. Pt was on 2L o2, though desats while resting, upped to 3L o2 overnight. Tele reads NSR. Pt rates pain 6-8/10 throughout shift, prn morphine and trazadone given, pt stated improvement. Lung sounds coarse, diminished, with fine crackles throughout. Expiratory wheezes noted as well. Pt has coarse cough, though is not producing sputum, collection cup at bedside. Pt continent, using bedside commode, tolerates well. Pt moves 1a, tolerates well. Pt appears to be resting, call light within reach. ?
[2024-07-01 08:18] LABS: C Reactive Protein* 53.8 mg/dL (0.5-1.0)
[2024-07-01] MEDS: DULOXETINE 30 MG CAPSULE DR 60 MG PO (08:55)
[2024-07-01] MEDS: POTASSIUM CHLORIDE 10 MEQ CAPSULE ER 40 MEQ PO ×2 (08:55→18:31)
[2024-07-01] MEDS: PREGABALIN 100 MG CAPSULE 200 MG PO ×3 (08:56→20:52)
[2024-07-01] MEDS: lisinopriL 10 MG TABLET PO (08:56)
[2024-07-01] MEDS: buPROPion XL 150 MG TABLET 450 MG PO (08:56)
[2024-07-01] MEDS: guaiFENesin 600 MG TAB.ER.12H 1200 MG PO ×2 (09:49→20:31)
[2024-07-01 11:20] LABS: HCO3 VBG 22 mmol/L (21-28); PCO2 VBG 35 mmHG (40-50); PO2 VBG 55.9 mmHG (25-47); pH VBG 7.407 (7.32-7.43)
[2024-07-01] MEDS: ALBUTEROL SULFATE 2.5 MG/3 ML VIAL.NEB NEB ×4 (11:47→22:37)
--- NOTE | 2024-07-01 12:07 | RESP.RT ---
Patient BBS has slightly more air movement today than last evening, chest shake with Aerobika is also slightly more pronounced. Patient needs encouragement for PEP, and IS.
--- NOTE | 2024-07-01 15:53 | RESP.RT ---
Albuterol neb given through Aerobika, patient used well.
[2024-07-01] MEDS: MAGNESIUM IV 2 GM/50 ML PIGGYBACK IVPB (16:08)
--- NOTE | 2024-07-01 19:18 | PC.NURSE ---
End of shift: patient encouraged to use Aerobika Q hour and with Nebs. Up indp. to BR and to chair. Tolerating well. Patient on 4 L NC. sating in the low 90's. Patient encouraged to ambulate the hallways and move as much as possible. VSS. Afebrile this shift, PRN morphine for chronic pain used Q2hrs. Patient tolerating a reg. diet.
[2024-07-01] MEDS: ACETAMINOPHEN 500 MG TABLET 1000 MG PO (19:39)
[2024-07-01] MEDS: ENOXAPARIN 40 MG/0.4 ML INJ SUBCUT (20:30)
[2024-07-01] MEDS: SODIUM CHLORIDE 0.9 % (FLUSH) 10 ML SYRINGE 5 ML IVF (20:31)
[2024-07-02] MEDS: PIPERACILLIN/TAZOBACTAM 3.375 GM in 0.9 % SODIUM CHLORIDE Mini-bag 100 ML IVPB ×4 (01:39→20:08)
[2024-07-02] MEDS: IPRAT-ALBUT 0.5-2.5 MG/3 ML NEB 1 NEB IH ×4 (01:39→21:12)
[2024-07-02] MEDS: MORPHINE 2 MG/ML inj IVP ×2 (01:41→04:09)
[2024-07-02] MEDS: VANCOMYCIN 1.5 GM/300 ML 1.5 GM/300 ML PIGGYBACK IVPB ×2 (04:01→16:14)
[2024-07-02] MEDS: ALBUTEROL SULFATE 2.5 MG/3 ML VIAL.NEB NEB ×6 (04:05→23:44)
[2024-07-02 04:07] VITALS: BP 129/97; PULSE 97; RESP 18; TEMP 36.3; O2SAT 90
[2024-07-02] MEDS: METHYLPREDNISOLONE SOD SUCC 40 MG/ML IVP ×3 (05:56→23:10)
--- NOTE | 2024-07-02 06:32 | PC.NURSE ---
[id number]: A&O pleasant and cooperative. O2 sats 88-92% on 4 L of oxygen overnight. Pt needs encouragement to take deep breaths and use aerobika. VS otherwise stable. Afebrile. Intermittent non productive cough noted. Still needing sputum sample. SOB w/ ambulation but able to maintain sats >88% with activity. Reporting pain in left back. See eMAR for interventions. Up at yovani in room. Using call light appropriately.
[2024-07-02 07:00] VITALS: BP 139/90; PULSE 85; PULSE 93; RESP 20; TEMP 36.1; O2SAT 90
[2024-07-02 07:09] LABS: Hematocrit 36.4 % (33.0-51.0); Mean Corpuscular HGB Conc 33 gm/dL (32-36); Mean Corpuscular Hemoglobin 30 pg (26-34); Mean Corpuscular Volume 90 fL (80-100); Platelet Count* 553 K/uL (140-440); Red Blood Count 4.06 m/uL (4.00-5.20)
[2024-07-02 07:24] LABS: Slide Review Reflex No; White Blood Count* 27.88 K/uL (4.50-11.00)
[2024-07-02 07:27] LABS: Chloride* 108 mmol/L (96-114); Potassium* 3.7 mmol/L (3.6-5.1); Sodium* 138 mmol/L (135-149)
[2024-07-02 07:30] LABS: Anion Gap 9 mEq/L (7-15); Blood Urea Nitrogen* 17 mg/dL (5-24); Carbon Dioxide* 21 mmol/L (20-32); Creatinine* 0.3 mg/dL (0.5-1.5); Estimated Glomerular Filt Rate 139 ml/min
[2024-07-02 07:31] LABS: Calcium* 8.4 mg/dL (8.4-10.6); Glucose* 142 mg/dL (60-115)
[2024-07-02] MEDS: IBUPROFEN 600 MG TABLET PO ×3 (07:37→20:07)
[2024-07-02] MEDS: POTASSIUM CHLORIDE 10 MEQ CAPSULE ER 20 MEQ PO ×2 (07:40→17:56)
[2024-07-02 08:38] LABS: C Reactive Protein* 29.2 mg/dL (0.5-1.0)
[2024-07-02 08:43] LABS: Basophils Absolute Auto 0.02 K/uL (0.00-0.30); Basophils Percent Auto 0.1 % (0.0-3.0); Immature Granulocytes Abs Auto 0.07 K/uL (0.00-0.30); Immature Granulocytes Pct Auto 0.2 %; Lymphocytes Percent Auto 2.6 % (20-44); Monocytes Percent Auto 3.8 % (0.0-11.0); Neutrophils Percent Auto 93.3 % (42.0-72.0)
[2024-07-02] MEDS: DULOXETINE 30 MG CAPSULE DR 60 MG PO (09:02)
[2024-07-02] MEDS: lisinopriL 10 MG TABLET PO (09:02)
[2024-07-02] MEDS: buPROPion XL 150 MG TABLET 450 MG PO (09:02)
[2024-07-02] MEDS: guaiFENesin 600 MG TAB.ER.12H 1200 MG PO ×2 (09:02→21:11)
[2024-07-02] MEDS: PREGABALIN 100 MG CAPSULE 200 MG PO ×3 (09:02→21:10)
[2024-07-02] MEDS: SODIUM CHLORIDE 0.9 % (FLUSH) 10 ML SYRINGE 5 ML IVF ×2 (09:03→21:11)
[2024-07-02 09:05] LABS: Procalcitonin* 0.25 ng/mL (<0.50)
[2024-07-02] MEDS: DEXTROAMPHETAMINE SULFATE 15 MG 15 EACH PO (10:12)
[2024-07-02] MEDS: ACETAMINOPHEN 500 MG TABLET 1000 MG PO ×3 (10:15→23:05)
[2024-07-02 11:00] VITALS: BP 133/87; PULSE 85; RESP 18; TEMP 36.2; O2SAT 92
--- NOTE | 2024-07-02 13:27 | P.IMPN_ITS ---
Progress Note: A&P Assessment and plan (1) Sepsis: Problem details: -WBC 28.69 with left shift, tachycardic, tachypneic, lactate 1.8, suspected source left lower lobe pneumonia -BC x1 NGTD and UC negative -on admission to floor, will receive 3rd bolus IVF followed by maintenance fluids -continue IV Zosyn and IV vancomycin 07/01 WBC trending down, CRP trending down, tachycardia and tachypnea resolved, remains afebrile Sepsis resolved Status: Resolved (2) Left lower lobe pneumonia: Problem details: -CT shows small focus of left lower lobe pneumonia with left parapneumonic effusion -leukocytosis WBC 28.69, lactate 1.8, triple swab negative -continue IV Zosyn and IV vancomycin -Mucinex b.i.d., Tessalon Perles p.r.n. -procalcitonin 0.89 ->0.25, strep pneumo/Legionella negative, sputum culture /Gram stain ordered 07/02 - leukocytosis trending up. Suspect secondary to IV steroids. Remains afebrile, vitally stable. Procalcitonin and CRP trending down. No new symptomatology Status: Acute (3) Parapneumonic effusion: Problem details: -as noted on CT Status: Acute (4) Asthma with acute exacerbation: Problem details: -methylprednisolone 125 mg on admission to the floor, continue 40 mg q.8 hours -DuoNebs scheduled q.6 hours, albuterol nebs q.4 hours scheduled, q2 hours p.r.n. -aerobika, incentive spirometry -oxygen supplementation to maintain saturations > 90%, weaning as able -RT for pulmonary support Status: Acute (5) Hypoxia: Problem details: -oxygen saturation 88% on room air in ED. management as above, continue to monitor Status: Acute (6) Dehydration: Problem details: -in setting of sepsis, recent vomiting, hemoglobin 16.6, platelets 565 -continue IV hydration, orals as tolerated - okay to DC maintenance fluids when adequate oral intake Status: Resolved (7) Acute hypokalemia: Problem details: -potassium 3.0, in setting of vomiting and sepsis -3.1 following IV replacement, initiate scheduled or replacement and continue to monitor -magnesium 2.0 - given 2 g IV to assist respiratory status Status: Resolved (8) Vomiting: Problem details: -Compazine p.r.n. (QTC >470), IVF, orals as tolerated - no further vomiting overnight Status: Resolved (9) Hypertension: Problem details: -hypertensive on admission, has been unable to take home meds secondary to illness -continue lisinopril Status: Acute (10) Anxiety: Problem details: -continue home medications Status: Acute (11) Major depressive disorder: Problem details: -continue home medications Status: Acute Plan Continue IV antibiotics, IV steroids, nebs with pulmonary support pending ongoing clinical improvement, possibly transitioning to oral medications in 1-2 days Time Spent With Patient Total time spent: Total time spent caring for the patient today was 45 minutes. This includes time spent for the visit reviewing the chart, time spent during the visit, time spent after the visit and documentation and planning in coordination of care. Subjective Date Seen: 07/02/24 Interval history: Patient is seen sitting up in bed. Reports feeling better, looking better. Still has pain with deep breathing. Still requiring 4 L per nasal cannula. Has been encouraged to get up and moving about. Per nursing staff, patient has been requesting morphine q.2 hours though appears content or sleeping at times. WBC has trended up. I think this is in the setting of IV steroids. Clinically she is improving. Remains afebrile. Procalcitonin downtrending. Exam Narrative: Exam Narrative: PHYSICAL EXAM General: Pleasant, conversant, NAD Cardiovascular: RRR. No pitting edema Pulmonary: Breathing improving, less dyspneic, still unable to take full deep breath Neurological: Alert, answering questions appropriately, cranial nerves intact, no focal findings Extremities: No gross joint deformity or swelling. AROMI. Neurovascularly intact Skin: Warm, dry. Const: Vital Signs, click to edit/add: Vital Signs - 24 hr 07/01/24 15:00 07/01/24 15:00 07/01/24 15:00 Temperature 98.2 F Pulse Rate 107 H Pulse Rate [Pulse Oximeter] 108 H 108 H Respiratory Rate 20 20 Blood Pressure [Ri ght Arm] 141/85 H Pulse Oximetry 90 Oxygen Delivery Me thod Nasal Cannula Oxygen Flow Rate 4 07/01/24 19:32 07/01/24 22:56 07/01/24 23:21 Temperature 97.4 F L 97.7 F Pulse Rate 96 Pulse Rate [Pulse Oximeter] 100 92 Respiratory Rate 20 18 Blood Pressure [Ri ght Arm] 131/78 144/97 H Pulse Oximetry 89 91 Oxygen Delivery Me thod Nasal Cannula Nasal Cannula Oxygen Flow Rate 4 4 07/02/24 04:07 07/02/24 07:00 07/02/24 07:00 Temperature 97.4 F L 96.9 F L Pulse Rate Pulse Rate [Pulse Oximeter] 97 93 93 Respiratory Rate 18 20 20 Blood Pressure [Ri ght Arm] 129/97 H 139/90 H Pulse Oximetry 90 90 Oxygen Delivery Me thod Nasal Cannula Nasal Cannula Oxygen Flow Rate 4 4 07/02/24 07:00 07/02/24 11:00 Temperature 97.2 F L Pulse Rate 85 Pulse Rate [Pulse Oximeter] 85 Respiratory Rate 18 Blood Pressure [Ri ght Arm] 133/87 Pulse Oximetry 92 Oxygen Delivery Me thod Nasal Cannula Oxygen Flow Rate 4 Labs Labs: Laboratory Results - last 24 hr 07/02/24 07/02/24 07/02/24 06:47 08:26 08:26 WBC 27.88 H* RBC 4.06 Hgb 12.0 Hct 36.4 MCV 90 MCH 30 MCHC 33 RDW Coeff of [place] 15.0 Plt Count 553 H Neut % (Auto) 93.3 H Lymph % (Auto) 2.6 L [place] % (Auto) 3.8 Eos % (Auto) 0.0 Baso % (Auto) 0.1 Neut # (Auto) 26.00 H Lymph # (Auto) 0.70 L [place] # (Auto) 1.10 H Eos # (Auto) 0.00 Baso # (Auto) 0.02 Abs Immat Gran (auto) 0.07 Total Counted Cancelled Neutrophils % (Manual) Cancelled Lymphocytes % (Manual) Cancelled Reactive Lymphs % (Man) Cancelled Monocytes % (Manual) Cancelled Eosinophils % (Manual) Cancelled Basophils % (Manual) Cancelled Metamyelocytes % (Man) Cancelled Myelocytes % (Man) Cancelled Promyelocytes % (Man) Cancelled Blast Cells % (Manual) Cancelled Imm/Tot Granulo (auto) 0.2 Abs Neuts (Manual) Cancelled Lymphocytes # (Manual) Cancelled Monocytes # (Manual) Cancelled Eosinophils # (Manual) Cancelled Basophils # (Manual) Cancelled Abs Metamyelocytes (Man) Cancelled Abs Myelocytes (Man) Cancelled Abs Promyelocytes (Man) Cancelled Abs Blast Cells (Man) Cancelled Nucleated RBCs Cancelled Hypersegmented Neuts Cancelled Smudge Cells Cancelled Toxic Granulation Cancelled Dohle Bodies Cancelled Eli Rods Cancelled Platelet Estimate Cancelled Clumped Platelets Cancelled Large Platelets Cancelled [place] Platelets Cancelled RBC Morphology Cancelled Dimorphic RBCs Cancelled Polychromasia Cancelled Hypochromasia Cancelled Poikilocytosis Cancelled Basophilic Stippling Cancelled Anisocytosis Cancelled Microcytosis Cancelled Macrocytosis Cancelled Spherocytes Cancelled Pappenheimer Bodies Cancelled Sickle Cells Cancelled Target Cells Cancelled Tear Drop Cells Cancelled Ovalocytes Cancelled Stomatocytes Cancelled Helmet Cells Cancelled Moss-[place] Bodies Cancelled [place] Rings Cancelled Nica Cells Cancelled Acanthocytes (Spur) Cancelled Rouleaux Cancelled Schistocytes Cancelled Sodium 138 Potassium 3.7 Chloride 108 Carbon Dioxide 21 Anion Gap 9 BUN 17 Creatinine 0.3 L Estimated Creat Clear 219.56 Estimated GFR 139 Glucose 142 H Calcium 8.4 C-Reactive Protein 29.2 H Procalcitonin 0.25 Lab Acknowledgement Test Added Test Added
[2024-07-02 15:00] VITALS: PULSE 85; RESP 18
[2024-07-02 19:00] VITALS: BP 134/95; PULSE 95; RESP 18; TEMP 36.6; O2SAT 90
[2024-07-02] MEDS: ENOXAPARIN 40 MG/0.4 ML INJ SUBCUT (21:11)
--- NOTE | 2024-07-02 23:52 | PC.NURSE ---
End of shift: A&O pleasant and cooperative. O2 sats 88-92% on 0-1 L of oxygen. Pt using aerobika frequently. Afebrile. Intermittent non productive cough noted. Minimal SOB w/ ambulation reported. 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 Relief noted. Up at yovani in room. Family at bedside. Call light in reach.
[2024-07-02 23:53] VITALS: BP 144/96; PULSE 85; PULSE 92; RESP 18; TEMP 36.4; O2SAT 92
[2024-07-03] MEDS: PIPERACILLIN/TAZOBACTAM 3.375 GM in 0.9 % SODIUM CHLORIDE Mini-bag 100 ML IVPB ×4 (01:07→19:41)
[2024-07-03] MEDS: IBUPROFEN 600 MG TABLET PO ×3 (01:15→13:15)
[2024-07-03 03:45] VITALS: BP 151/89; PULSE 90; RESP 16; TEMP 36.8; O2SAT 92
[2024-07-03] MEDS: ALBUTEROL SULFATE 2.5 MG/3 ML VIAL.NEB NEB ×6 (03:47→23:28)
[2024-07-03] MEDS: VANCOMYCIN 1.5 GM/300 ML 1.5 GM/300 ML PIGGYBACK IVPB (03:52)
[2024-07-03] MEDS: ACETAMINOPHEN 500 MG TABLET 1000 MG PO ×4 (04:00→23:27)
[2024-07-03] MEDS: SODIUM CHLORIDE 0.9 % (FLUSH) 10 ML SYRINGE 5 ML IVF ×3 (06:36→19:53)
[2024-07-03] MEDS: METHYLPREDNISOLONE SOD SUCC 40 MG/ML IVP (06:36)
[2024-07-03 07:00] VITALS: BP 143/98; PULSE 85; RESP 18; TEMP 36.4; O2SAT 92
[2024-07-03 07:10] LABS: Hematocrit 33.2 % (33.0-51.0); Hemoglobin* 10.9 gm/dL (12.0-16.0); Mean Corpuscular HGB Conc 33 gm/dL (32-36); Mean Corpuscular Hemoglobin 30 pg (26-34); Mean Corpuscular Volume 90 fL (80-100); Platelet Count* 552 K/uL (140-440); Red Blood Count 3.69 m/uL (4.00-5.20); White Blood Count* 20.71 K/uL (4.50-11.00)
[2024-07-03 07:13] LABS: Slide Review Reflex No
[2024-07-03 07:22] LABS: Chloride* 110 mmol/L (96-114); Potassium* 3.9 mmol/L (3.6-5.1); Sodium* 140 mmol/L (135-149)
[2024-07-03 07:25] LABS: Anion Gap 7 mEq/L (7-15); Blood Urea Nitrogen* 29 mg/dL (5-24); Carbon Dioxide* 23 mmol/L (20-32); Creatinine* 0.4 mg/dL (0.5-1.5); Est. Creatinine Clearance* 164.67; Estimated Glomerular Filt Rate 130 ml/min
[2024-07-03 07:26] LABS: Calcium* 8.5 mg/dL (8.4-10.6); Glucose* 132 mg/dL (60-115)
--- NOTE | 2024-07-03 07:42 | PM.IMPN1 ---
Progress Note: A&P Assessment and plan (1) Sepsis: Problem details: RESOLVED -WBC 28.69 with left shift, tachycardic, tachypneic, lactate 1.8, suspected source left lower lobe pneumonia -BC x1 NGTD and UC negative -on admission to floor, will receive 3rd bolus IVF followed by maintenance fluids -continue IV Zosyn and IV vancomycin 07/01 WBC trending down, CRP trending down, tachycardia and tachypnea resolved, remains afebrile Sepsis resolved Status: Resolved (2) Left lower lobe pneumonia: Problem details: -CT shows small focus of left lower lobe pneumonia with left parapneumonic effusion -leukocytosis WBC 28.69, lactate 1.8, triple swab negative -continue IV Zosyn -d/c IV vancomycin 07/03 -Mucinex b.i.d., Tessalon Perles p.r.n. -procalcitonin 0.89 ->0.25, strep pneumo/Legionella negative, sputum culture/Gram stain ordered With pleurisy 07/02 - leukocytosis trending up. Suspect secondary to IV steroids. Remains afebrile, vitally stable. Procalcitonin and CRP trending down. No new symptomatology 07/03 - WBC downtrending down. Clinically improving. Decreasing O2 needs at rest. Will monitor with ambulation. D/c vanco. Will discharge to home when no longer requiring oxygen Status: Acute (3) Parapneumonic effusion: Problem details: -as noted on CT Status: Acute (4) Asthma with acute exacerbation: Problem details: -methylprednisolone 125 mg on admission to the floor, continue 40 mg q.8 hours - changed to oral 07/03 -DuoNebs scheduled q.6 hours, albuterol nebs q.4 hours scheduled, q2 hours p.r.n. -aerobika, incentive spirometry -oxygen supplementation to maintain saturations > 90%, weaning as able -RT for pulmonary support Status: Acute (5) Hypoxia: Problem details: -oxygen saturation 88% on room air in ED. management as above, continue to monitor Status: Acute (6) Dehydration: Problem details: -in setting of sepsis, recent vomiting, hemoglobin 16.6, platelets 565 -continue IV hydration, orals as tolerated - okay to DC maintenance fluids when adequate oral intake Status: Resolved (7) Acute hypokalemia: Problem details: RESOLVED -potassium 3.0, in setting of vomiting and sepsis -3.1 following IV replacement, initiate scheduled or replacement and continue to monitor - improved to 3.9 -magnesium 2.0 - given 2 g IV to assist respiratory status Status: Resolved (8) Vomiting: Problem details: RESOLVED -Compazine p.r.n. (QTC >470), IVF, orals as tolerated - no further vomiting overnight Status: Resolved (9) Hypertension: Problem details: -hypertensive on admission, has been unable to take home meds secondary to illness -continue lisinopril Status: Acute (10) Anxiety: Problem details: -continue home medications Status: Acute (11) Major depressive disorder: Problem details: -continue home medications Status: Acute (12) GI bleed: Problem details: -reported soft stools overnight. Nursing reported formed, dark this morning -C diff negative -FOBT positive - likely result of scheduled ibuprofen which we have been using to avoid narcotics, additionally enoxaparin and steroids . Discontinue NSAIDs and enoxaparin (more ambulatory now) Status: Acute Plan Continue IV zosyn, nebs with pulmonary support pending ongoing clinical improvement, discharge to home when no longer requiring oxygen Time Spent With Patient Total time spent: Total time spent caring for the patient today was 45 minutes. This includes time spent for the visit reviewing the chart, time spent during the visit, time spent after the visit and documentation and planning in coordination of care. Subjective Date Seen: 07/03/24 Interval history: Patient is seen ambulating in her room this morning. Reports feeling much better. Continuing to require 0.5 L O2 per N/C. Breathing improved. Cough decreasing. Remains afebrile. Continues to have generalized left ribcage pain, worse with deep breathing. Exam Narrative: Exam Narrative: PHYSICAL EXAM General: Pleasant, conversant, NAD Cardiovascular: RRR. No pitting edema Pulmonary: Breathing improving, less dyspneic, ability to take deep breath improving Neurological: Alert, answering questions appropriately, cranial nerves intact, no focal findings Extremities: No gross joint deformity or swelling. AROMI. Neurovascularly intact Skin: Warm, dry. Const: Vital Signs, click to edit/add: Vital Signs - 24 hr 07/02/24 11:00 07/02/24 15:00 07/02/24 19:00 Temperature 97.2 F L 97.8 F Pulse Rate Pulse Rate [Pulse Oximeter] 85 85 95 Respiratory Rate 18 18 18 Blood Pressure [Ri ght Arm] 133/87 134/95 H Pulse Oximetry 92 90 Oxygen Delivery Me thod Nasal Cannula Nasal Cannula Oxygen Flow Rate 4 0 07/02/24 23:53 07/02/24 23:53 07/02/24 23:53 Temperature 97.6 F Pulse Rate 85 Pulse Rate [Pulse Oximeter] 92 Respiratory Rate 18 18 Blood Pressure [Ri ght Arm] 144/96 H Pulse Oximetry 92 Oxygen Delivery Me thod Nasal Cannula Oxygen Flow Rate 1 07/03/24 03:45 Temperature 98.3 F Pulse Rate Pulse Rate [Pulse Oximeter] 90 Respiratory Rate 16 Blood Pressure [Ri ght Arm] 151/89 H Pulse Oximetry 92 Oxygen Delivery Me thod Nasal Cannula Oxygen Flow Rate 0.5 Labs Labs: Laboratory Results - last 24 hr 07/02/24 07/02/24 07/02/24 06:47 08:26 08:26 WBC RBC Hgb Hct MCV MCH MCHC RDW Coeff of Mayank 15.0 Plt Count Neut % (Auto) 93.3 H Lymph % (Auto) 2.6 L Sharkey % (Auto) 3.8 Eos % (Auto) 0.0 Baso % (Auto) 0.1 Neut # (Auto) 26.00 H Lymph # (Auto) 0.70 L Sharkey # (Auto) 1.10 H Eos # (Auto) 0.00 Baso # (Auto) 0.02 Abs Immat Gran (auto) 0.07 Total Counted Cancelled Neutrophils % (Manual) Cancelled Lymphocytes % (Manual) Cancelled Reactive Lymphs % (Man) Cancelled Monocytes % (Manual) Cancelled Eosinophils % (Manual) Cancelled Basophils % (Manual) Cancelled Metamyelocytes % (Man) Cancelled Myelocytes % (Man) Cancelled Promyelocytes % (Man) Cancelled Blast Cells % (Manual) Cancelled Imm/Tot Granulo (auto) 0.2 Abs Neuts (Manual) Cancelled Lymphocytes # (Manual) Cancelled Monocytes # (Manual) Cancelled Eosinophils # (Manual) Cancelled Basophils # (Manual) Cancelled Abs Metamyelocytes (Man) Cancelled Abs Myelocytes (Man) Cancelled Abs Promyelocytes (Man) Cancelled Abs Blast Cells (Man) Cancelled Nucleated RBCs Cancelled Hypersegmented Neuts Cancelled Smudge Cells Cancelled Toxic Granulation Cancelled Dohle Bodies Cancelled Eli Rods Cancelled Platelet Estimate Cancelled Clumped Platelets Cancelled Large Platelets Cancelled Giant Platelets Cancelled RBC Morphology Cancelled Dimorphic RBCs Cancelled Polychromasia Cancelled Hypochromasia Cancelled Poikilocytosis Cancelled Basophilic Stippling Cancelled Anisocytosis Cancelled Microcytosis Cancelled Macrocytosis Cancelled Spherocytes Cancelled Pappenheimer Bodies Cancelled Sickle Cells Cancelled Target Cells Cancelled Tear Drop Cells Cancelled Ovalocytes Cancelled Stomatocytes Cancelled Helmet Cells Cancelled Moss-Arial Bodies Cancelled [place] Rings Cancelled Glide Cells Cancelled Acanthocytes (Spur) Cancelled Rouleaux Cancelled Schistocytes Cancelled Sodium Potassium Chloride Carbon Dioxide Anion Gap BUN Creatinine Estimated Creat Clear Estimated GFR Glucose Calcium C-Reactive Protein 29.2 H Procalcitonin 0.25 Lab Acknowledgement Test Added Test Added 07/03/24 06:24 WBC 20.71 H RBC 3.69 L Hgb 10.9 L Hct 33.2 MCV 90 MCH 30 MCHC 33 RDW Coeff of Mayank Plt Count 552 H Neut % (Auto) Lymph % (Auto) Sharkey % (Auto) Eos % (Auto) Baso % (Auto) Neut # (Auto) Lymph # (Auto) Sharkey # (Auto) Eos # (Auto) Baso # (Auto) Abs Immat Gran (auto) Total Counted Neutrophils % (Manual) Lymphocytes % (Manual) Reactive Lymphs % (Man) Monocytes % (Manual) Eosinophils % (Manual) Basophils % (Manual) Metamyelocytes % (Man) Myelocytes % (Man) Promyelocytes % (Man) Blast Cells % (Manual) Imm/Tot Granulo (auto) Abs Neuts (Manual) Lymphocytes # (Manual) Monocytes # (Manual) Eosinophils # (Manual) Basophils # (Manual) Abs Metamyelocytes (Man) Abs Myelocytes (Man) Abs Promyelocytes (Man) Abs Blast Cells (Man) Nucleated RBCs Hypersegmented Neuts Smudge Cells Toxic Granulation Dohle Bodies Eli Rods Platelet Estimate Clumped Platelets Large Platelets Giant Platelets RBC Morphology Dimorphic RBCs Polychromasia Hypochromasia Poikilocytosis Basophilic Stippling Anisocytosis Microcytosis Macrocytosis Spherocytes Pappenheimer Bodies Sickle Cells Target Cells Tear Drop Cells Ovalocytes Stomatocytes Helmet Cells Moss-Arial Bodies [place] Rings Nica Cells Acanthocytes (Spur) Rouleaux Schistocytes Sodium 140 Potassium 3.9 Chloride 110 Carbon Dioxide 23 Anion Gap 7 BUN 29 H Creatinine 0.4 L Estimated Creat Clear 164.67 Estimated GFR 130 Glucose 132 H Calcium 8.5 C-Reactive Protein Procalcitonin Lab Acknowledgement
--- NOTE | 2024-07-03 07:47 | PC.NURSE ---
Pt alert and oriented x3. Afebrile. Pt reports 7-8/10 generalized pain, managed with scheduled medication. Pt's lung sounds are diminished but clear, pt continues to have a course intermittent cough that is non-productive. Pt is on 0.5L of O2 to maintain stats on 90%, attempts made to wean pt to room air but pt O2 would dropped to 87-88%. Pt is up ind, voiding, and tolerating a regular diet.
[2024-07-03] MEDS: POTASSIUM CHLORIDE 10 MEQ CAPSULE ER 20 MEQ PO ×2 (08:29→17:44)
[2024-07-03] MEDS: IPRAT-ALBUT 0.5-2.5 MG/3 ML NEB 1 NEB IH ×2 (08:29→20:48)
[2024-07-03] MEDS: buPROPion XL 150 MG TABLET 450 MG PO (08:38)
[2024-07-03] MEDS: guaiFENesin 600 MG TAB.ER.12H 1200 MG PO ×2 (08:39→20:48)
[2024-07-03] MEDS: DULOXETINE 30 MG CAPSULE DR 60 MG PO (08:39)
[2024-07-03] MEDS: lisinopriL 10 MG TABLET PO (08:39)
[2024-07-03] MEDS: PREGABALIN 100 MG CAPSULE 200 MG PO ×3 (08:39→20:49)
[2024-07-03] MEDS: DEXTROAMPHETAMINE SULFATE 15 MG 15 EACH PO (10:05)
[2024-07-03] MEDS: predniSONE 20 MG TABLET 40 MG PO (10:29)
[2024-07-03] MEDS: LIDOCAINE 5% PATCH 1 PATCH TRANSDERMA (10:29)
[2024-07-03 11:00] VITALS: BP 152/108; PULSE 84; RESP 18; TEMP 36.7; O2SAT 91
[2024-07-03 11:51] LABS: Fecal Occult Blood* Positive (Negative)
[2024-07-03 11:53] LABS: C.Difficile Negative (Negative); CDIFFEPI 027 PRESUMPTIVE NEGATIVE (Negative)
[2024-07-03 15:00] VITALS: BP 158/101; PULSE 91; RESP 18; RESP 20; TEMP 36.4; O2SAT 92
[2024-07-03] MEDS: PANTOPRAZOLE SODIUM 40 MG INJ IVP (18:06)
--- NOTE | 2024-07-03 19:09 | PC.NURSE ---
Patient VSS, on RA for the last two hours of shift. encouraged to ambulate hallways and use aerobika. MD notified of elevated BP and patient smoking 2 packs a day prior to coming to hospital. Patient had 2 loose black BM's. C-diff negative. Positive for fecal occult blood. MD notified. Ibuprofen and Vanco stopped. Pantoprazole once administered. Patient is alert and oriented, tolerating a reg. diet.
[2024-07-03 19:42] VITALS: BP 162/100; PULSE 87; RESP 20; TEMP 36.6; O2SAT 92
[2024-07-03 22:48] VITALS: BP 152/98; PULSE 80; RESP 20; TEMP 36.7; O2SAT 92
[2024-07-04] MEDS: IPRAT-ALBUT 0.5-2.5 MG/3 ML NEB 1 NEB IH ×2 (01:49→07:59)
[2024-07-04] MEDS: PIPERACILLIN/TAZOBACTAM 3.375 GM in 0.9 % SODIUM CHLORIDE Mini-bag 100 ML IVPB ×2 (01:49→07:00)
[2024-07-04 01:50] VITALS: BP 158/107; PULSE 87; RESP 20; TEMP 36.8; O2SAT 92
[2024-07-04 02:11] VITALS: PULSE 89
[2024-07-04] MEDS: NICOTINE 21 MG PATCH 1 PATCH TRANSDERMA (02:26)
[2024-07-04] MEDS: ACETAMINOPHEN 500 MG TABLET 1000 MG PO (05:35)
[2024-07-04] MEDS: ALBUTEROL SULFATE 2.5 MG/3 ML VIAL.NEB NEB (06:56)
[2024-07-04] MEDS: OMEPRAZOLE 20 MG CAPSULE DR PO (06:56)
[2024-07-04] MEDS: SODIUM CHLORIDE 0.9 % (FLUSH) 10 ML SYRINGE 5 ML IVF (06:58)
[2024-07-04 07:32] LABS: Chloride* 108 mmol/L (96-114)
--- NOTE | 2024-07-04 07:32 | PC.NURSE ---
Pt alert and oriented x3. Afebrile. On room air throughout shift. Pt reports 7-8/10 generalized pain, managed with scheduled medication. Pt reports baseline pain at home is 7/10. Pt continues to have a dry intermittent cough that is non-productive. Pt's lung sounds are diminished but clear. Pt is up ind, voiding, and tolerating a regular diet.?
[2024-07-04 07:33] LABS: Potassium* 3.5 mmol/L (3.6-5.1); Sodium* 139 mmol/L (135-149)
[2024-07-04 07:36] LABS: Anion Gap 6 mEq/L (7-15); Blood Urea Nitrogen* 21 mg/dL (5-24); Calcium* 8.6 mg/dL (8.4-10.6); Carbon Dioxide* 25 mmol/L (20-32); Creatinine* 0.4 mg/dL (0.5-1.5); Est. Creatinine Clearance* 164.67; Estimated Glomerular Filt Rate 130 ml/min; Glucose* 94 mg/dL (60-115)
[2024-07-04 07:39] LABS: Hemoglobin* 10.9 gm/dL (12.0-16.0); Mean Corpuscular HGB Conc 33 gm/dL (32-36); Mean Corpuscular Hemoglobin 30 pg (26-34); Mean Corpuscular Volume 90 fL (80-100); Platelet Count* 530 K/uL (140-440); Red Blood Count 3.66 m/uL (4.00-5.20); White Blood Count* 15.45 K/uL (4.50-11.00)
[2024-07-04 07:42] LABS: Slide Review Reflex No
[2024-07-04] MEDS: predniSONE 20 MG TABLET 40 MG PO (07:59)
[2024-07-04] MEDS: POTASSIUM CHLORIDE 10 MEQ CAPSULE ER 20 MEQ PO (08:02)
[2024-07-04 08:03] VITALS: BP 165/103; PULSE 87; RESP 18; TEMP 36.6; O2SAT 91
[2024-07-04 08:04] VITALS: PULSE 94
[2024-07-04] MEDS: buPROPion XL 150 MG TABLET 450 MG PO (08:29)
[2024-07-04] MEDS: PREGABALIN 100 MG CAPSULE 200 MG PO (08:29)
[2024-07-04] MEDS: lisinopriL 10 MG TABLET PO (08:29)
[2024-07-04] MEDS: guaiFENesin 600 MG TAB.ER.12H 1200 MG PO (08:29)
[2024-07-04] MEDS: DULOXETINE 30 MG CAPSULE DR 60 MG PO (08:29)
--- NOTE | 2024-07-04 10:58 | P.DS_ITS ---
DS: Providers Provider Date Seen: 07/04/24 Date of admission: 06/30/24 14:10 Primary care physician: Prudence Mena PA-C Admitting Clinician: Rosio Jackson MD Consults: 06/30/24 14:10 Consult to Respiratory Therapy [CONS] Routine Comment: Reason(s) for RT Consult:: Consult Attending Physician on discharge: SUSAN Paez PA-C [facility] Date of Discharge: 07/04/24 DS: Diagnosis Discharge Diagnosis (1) Sepsis: Status: Resolved Problem details: RESOLVED -WBC 28.69 with left shift, tachycardic, tachypneic, lactate 1.8, suspected source left lower lobe pneumonia -BC x1 NGTD and UC negative -on admission to floor, will receive 3rd bolus IVF followed by maintenance fluids -continue IV Zosyn and IV vancomycin 07/01 WBC trending down, CRP trending down, tachycardia and tachypnea resolved, remains afebrile Sepsis resolved (2) Left lower lobe pneumonia: Status: Acute Problem details: -CT shows small focus of left lower lobe pneumonia with left parapneumonic effusion -leukocytosis WBC 28.69, lactate 1.8, triple swab negative -continue IV Zosyn -d/c IV vancomycin 07/03 -Mucinex b.i.d., Tessalon Perles p.r.n. -procalcitonin 0.89 ->0.25, strep pneumo/Legionella negative, sputum culture/Gram stain ordered With pleurisy 07/02 - leukocytosis trending up. Suspect secondary to IV steroids. Remains afebrile, vitally stable. Procalcitonin and CRP trending down. No new symptomatology 07/03 - WBC downtrending down. Clinically improving. Decreasing O2 needs at rest. Will monitor with ambulation. D/c vanco. Will discharge to home when no longer requiring oxygen Patient is discharged to home, has been weaned to room air, no longer requiring oxygen supplementation. Ambulating. Will finish azithromycin and prednisone prescriptions and has been prescribed doxycycline to complete a 5 day course following IV antibiotic therapy in the hospital. Continue Mucinex b.i.d., Tessalon Perles p.r.n.. Continue to use Aerobika and incentive spirometry regu larly throughout the day. Encouraged frequent ambulation, building up stamina. Continue DuoNebs and albuterol nebs q.i.d. weaning to as needed as improved. (3) Parapneumonic effusion: Status: Acute Problem details: -as noted on CT. Outpatient follow-up (4) Asthma with acute exacerbation: Status: Acute Problem details: -methylprednisolone 125 mg on admission to the floor, continue 40 mg q.8 hours - changed to oral 07/03 -DuoNebs scheduled q.6 hours, albuterol nebs q.4 hours scheduled, q2 hours p.r.n. -aerobika, incentive spirometry -oxygen supplementation to maintain saturations > 90%, weaning as able -RT for pulmonary support Continuing home meds on a regular schedule when returns to home, weaning to as needed as improves. (5) Hypoxia: Status: Resolved Problem details: RESOLVED -oxygen saturation 88% on room air in ED. management as above, continue to monitor Weaned to room air prior to discharge (6) Dehydration: Status: Resolved Problem details: -in setting of sepsis, recent vomiting, hemoglobin 16.6, platelets 565 -continue IV hydration, orals as tolerated - okay to DC maintenance fluids when adequate oral intake Encouraged to continue adequate oral intake, hydration, ambulation. (7) Acute hypokalemia: Status: Resolved Problem details: RESOLVED -potassium 3.0, in setting of vomiting and sepsis -3.1 following IV replacement, initiate scheduled or replacement and continue to monitor - improved to 3.9 -magnesium 2.0 - given 2 g IV to assist respiratory status (8) Vomiting: Status: Resolved Problem details: RESOLVED -Compazine p.r.n. (QTC >470), IVF, orals as tolerated - no further vomiting overnight (9) Hypertension: Status: Acute Problem details: -hypertensive on admission, has been unable to take home meds secondary to illness -continue lisinopril Continue home dose lisinopril. Mildly hypertensive during hospital course. No longer smoking. Mildly anxious. Monitor pressures following discharge and follow-up with PCP. (10) Anxiety: Status: Acute Problem details: -continue home medications (11) Major depressive disorder: Status: Acute Problem details: -continue home medications (12) GI bleed: Status: Acute Problem details: -reported soft stools overnight. Nursing reported formed, dark this morning -C diff negative -FOBT positive - likely result of scheduled ibuprofen which we have been using to avoid narcotics, additionally enoxaparin and steroids . Discontinue NSAIDs and enoxaparin (more ambulatory now) Hemoglobin stable, unchanged, 10.9. Advised to avoid NSAIDs at time of discharge. Close outpatient follow-up with PCP, recheck hemoglobin. Return to ED if new or worsening symptoms. DS: Summary Hospital Course Hospital Course: Course of care and details as noted above. Remainder of chronic medical comorbidities were monitored and managed with home medications. Time spent discussing smoking cessation with patient: more than 10 minutes Status at Discharge Functional status at discharge: independent ambulation Overall status at discharge: patient is progressing back to baseline Time Spent with Patient Time attestation: Total time spent providing and/or coordinating discharge services: Time spent: Greater than 30 minutes Exam Narrative: Exam Narrative: PHYSICAL EXAM General: Pleasant, conversant, NAD Cardiovascular: RRR Pulmonary: No dyspnea on room air Neurological: Alert, answering questions appropriately Skin: Warm, dry. Const: Vital Signs, click to edit/add: Vital Signs - 24 hr 07/03/24 11:00 07/03/24 15:00 07/03/24 15:00 Temperature 98.0 F 97.6 F Pulse Rate Pulse Rate [Pulse Oximeter] 84 91 91 Respiratory Rate 18 18 20 Blood Pressure [Ri ght Arm] 152/108 H 158/101 H Pulse Oximetry 91 92 Oxygen Delivery Me thod Nasal Cannula Nasal Cannula Oxygen Flow Rate 0.5 0.5 07/03/24 19:42 07/03/24 22:48 07/04/24 01:50 Temperature 97.9 F 98.1 F 98.2 F Pulse Rate Pulse Rate [Pulse Oximeter] 87 80 87 Respiratory Rate 20 20 20 Blood Pressure [Ri ght Arm] 162/100 H 152/98 H 158/107 H Pulse Oximetry 92 92 92 Oxygen Delivery Me thod Nasal Cannula Room Air Room Air Oxygen Flow Rate 07/04/24 02:11 07/04/24 08:03 07/04/24 08:04 Temperature 97.8 F Pulse Rate 89 94 Pulse Rate [Pulse Oximeter] 87 Respiratory Rate 18 Blood Pressure [Ri ght Arm] 165/103 H Pulse Oximetry 91 Oxygen Delivery Me thod Room Air Oxygen Flow Rate DS: Data Data Completed and Pending Labs on day of discharge: Labs from last 24 hours 07/04/24 07/03/24 06:58 11:02 WBC 15.45 H RBC 3.66 L Hgb 10.9 L Hct 33.0 MCV 90 MCH 30 MCHC 33 Plt Count 530 H Sodium 139 Potassium 3.5 L Chloride 108 Carbon Dioxide 25 Anion Gap 6 L BUN 21 Creatinine 0.4 L Estimated Creat Clear 164.67 Estimated GFR 130 Glucose 94 Calcium 8.6 Stool Occult Blood Positive A Stl C. diff Tox B Gene Negative Stl C. diff [id number] PRESUMPTIVE NEGATIVE Preliminary micro results at discharge 06/30/24 14:43 Blood Culture - Preliminary Blood NO GROWTH AFTER 72 HOURS Imaging CTA chest: Attestation: I have reviewed the pertinent imaging results. Radiologist's impression: PE: Well-timed contrast bolus. No pulmonary emboli. Normal caliber main pulmonary artery. Normal sized right heart chambers. No reflux of contrast below the diaphragm. Airway: Expiratory appearance of the trachea. Lungs: Expiratory appearance of both lungs. Bands of linear atelectasis in the inferior aspects of both lungs. There is a small area of left lower lobe consolidation without necrosis. No pulmonary edema or emphysema. Pleura: There is a small left pleural effusion that is layering dependently and inferiorly. No septation or loculation seen. No right pleural effusion. No pneumothorax. Lymph nodes: No thoracic adenopathy. Mediastinum: No pneumomediastinum. Prominent mediastinal fat deposition. No mediastinal mass or hematoma. Heart and great vessels: No pericardial effusion. Normal cardiac chamber size. No calcified atherosclerotic plaques. No aortic aneurysm. Chest wall: Normal. No masses. Upper abdomen: Normal. Bones: No fractures. No focal bone lesions. IMPRESSION: 1. No pulmonary embolism. 2. Small focus of left lower lobe pneumonia with a left parapneumonic effusion. 3. Expiratory appearance of the airway and lungs with bilateral atelectasis. Chest x-ray: Attestation: I have reviewed the pertinent imaging results. Radiologist's impression: Soft tissue attenuation from the body habitus on this image. Lung volumes are moderate and lower than before. Possible left lower lobe opacities. No pleural effusion. No pneumothorax. Heart size is normal. IMPRESSION: Soft tissue attenuation from portable technique. There may be some left lower lobe opacities. Consider PA and lateral chest radiograph. Discharge Plan Discharge Disposition: Home, Self-Care Date of Admission: 06/30/24 14:10 Attending Provider on Discharge: Jessica Bedolla Primary Care Provider: Prudence Mena Condition: Improved Anticipated Discharge Date/Time: 07/04/24 10:47 Discharge Medications: New benzonatate 100 mg Capsule 200 mg PO TID PRN (Reason: cough) Qty: 30 0RF guaifenesin [Mucinex] 600 mg Tablet Extended Release 12hr 1,200 mg PO BID Qty: 30 0RF doxycycline hyclate 100 mg capsule 100 mg PO BID Qty: 10 0RF Continued albuterol sulfate 2.5 mg /3 mL (0.083 %) solution for nebulization 2.5 mg inhalation Q4H PRN (Reason: wheezing) trazodone 50 mg tablet 50 - 200 mg PO HS PRN (Reason: insomnia) lorazepam 0.5 mg tablet 0.5 mg PO DAILY PRN (Reason: anxiety) lisinopril 10 mg tablet 10 mg PO DAILY albuterol sulfate [Ventolin HFA] 90 mcg/actuation HFA aerosol inhaler 2 puff inhalation Q4H PRN (Reason: wheezing) bupropion HCl 300 mg tablet extended release 24 hr 300 mg PO QAM Patient Comments: TOTAL DOSE = 450MG bupropion HCl 150 mg tablet extended release 24 hr 150 mg PO QAM Patient Comments: TOTAL DOSE = 450MG pregabalin 200 mg capsule 200 mg PO 3XD fluticasone propion-salmeterol 115-21 mcg/actuation HFA aerosol inhaler 2 puff INHALATION Q12H cholecalciferol (vitamin D3) 50 mcg (2,000 unit) capsule 50 mcg PO DAILY Orilissa 150 mg tablet 150 mg PO DAILY prednisone 20 mg tablet 40 mg PO DAILY 4 Days Qty: 8 0RF azithromycin 250 mg tablet 250 mg PO DAILY dextroamphetamine sulfate 15 mg capsule, extended release 15 mg PO DAILY dextroamphetamine-amphetamine 10 mg tablet 1 tab PO DAILY@1200 Vraylar 4.5 mg capsule 4.5 mg PO DAILY duloxetine 60 mg capsule,delayed release(DR/EC) 60 mg PO DAILY ipratropium-albuterol 0.5 mg-3 mg(2.5 mg base)/3 mL solution for nebulization 3 ml inhalation Q4H PRN Discharge Orders: Discharge Order (Routine); Ordered 07/04/24 Ordered By: Jessica Bedolla Patient Education: Bacterial Pneumonia (GEN) Additional Instructions: Finish your zithromax and prednisone Take Doxycycline for 5 days. Continue mucinex twice daily and tessalon perles as needed Continue duonebs 4 times daily alternating with albuterol nebs 4 times daily until improved, then as needed Continue to use aerobika and incentive spirometry regularly every day Continue to refrain from smoking Stay hydrated and ambulate short distances frequently throughout the day, building up your stamina You may use Tylenol as needed. Avoid taking NSAIDs (ibuprofen, advil, naproxen, aspirin, etc) until follow up with your PCP as you have blood in your stool Activity Level: Activity as Tolerated Discharge Diet: Regular Follow Up Appointments: Prudence Mena PA-C [Primary Care Provider] - (Post hospital follow-up 3-5 days. Recheck hgb) Forms: opendorse Info Instructions
[2024-07-04] MEDS: LOPERAMIDE HCL 2 MG CAPSULE 4 MG PO (11:52)
== END 2024-07-04 12:41 | disposition home or self-care (01) | DRG 720 ==
LOC: ED 13:07 → MEDSURG 13:41
PROVIDERS: Admitting Provider Physician Assistant; Emergency Provider Family Medicine; PCP Internal Medicine; Visit Provider Family Medicine
DX: A41.89 Other specified sepsis (principal); J18.1 Lobar pneumonia, unspecified organism; Z72.0 Tobacco use; J91.8 Pleural effusion in other conditions classified elsewhere; J45.901 Unspecified asthma with (acute) exacerbation; R09.02 Hypoxemia; E86.0 Dehydration; E87.6 Hypokalemia; R11.10 Vomiting, unspecified; I10 Essential (primary) hypertension; F41.9 Anxiety disorder, unspecified; F32.9 Major depressive disorder, single episode, unspecified; K92.2 Gastrointestinal hemorrhage, unspecified; D62 Acute posthemorrhagic anemia
CPT/HCPCS: 36415; 71045; 71275; 80048; 80053; 81001; 81025; 82270; 82803; 83605; 83735; 83880; 84132; 84145; 84484; 85025; 85027; 86140; 87040; 87070; 87086; 87449; 87493; 87631; 87899; 93005; 94640; 94664; 94761; 99285; A9270; J0780; J1650; J1885; J2270; J2405; J2470; J2543; J2919; J3370; J3372; J3475; J3480; J7030; J7120; J7512; Q9967; S4990

== ENCOUNTER 2024-07-12 22:37 | Inpatient (IN) | payer BC, SELFPAY ==
--- OUTSIDE RECORDS SUMMARY | 2024-07-12 22:40 | XMS_ITS ---
Author Organization [facility] Address [address] [place] [address] Care Team Providers Care General Car Supervisor Yard Name Role Phone Unavailable Unavailable Unavailable Surgery Details Not on file Complications Check Surgery Details section. Procedure Estimated Blood Loss Check Surgery Details section. Procedure Findings Check Surgery Details section. Procedure Specimens Taken Check Surgery Details section.
--- OUTSIDE RECORDS SUMMARY | 2024-07-12 22:40 | XMS_ITS | Encounter Summary ---
Author Organization [facility] Address [address] [place] [address] Care Team Providers Care Assistant Bookkeeper Name Role Phone Prudence Mena P.A.-CDmitry Primary Care Pro vider Encounter Details Date Type Department Care Team (Late st Contact Info) Description 07/11/2024 Clinical Communication Department of Community Internal Medicine in [place], [place] [address] [place] [address] Prudence Mena MPAS P.A.-C. [address] [place] [address] Social History Tobacco Use Types Packs/Day Years Used Date Smoking Tobacco: Former Cigarettes 1.5 0.1 S tarted: 06/21/2024 Passive Smoke Exposure: Past Smokeless Tobacco: Never Alcohol Use Standard Drinks/Week Comments Yes 0 (1 standard drink = 0.6 oz pur e alcohol) [facility] Utilities Answer Date Recorded In the past 12 months has e [employer] gas, oil, or water [employer] threatened to shut off services in your home? No 08/30/2023 Humiliation, Afraid, Rape, and Kick questionnair e Answer Date Recorded Within the last year, have y ou been afraid of your partner or ex-partner? No 07/27/2022 Within the last year, have y ou been humiliated or emotionally abused in other ways by your partner or ex-partner? No Within the last year, have y ou been kicked, hit, slapped, or otherwise physically hurt by your partner or ex-partner? No 07/27/2022 Within the last year, have y ou been raped or forced to have any kind of sexual activity by your partner or ex-partner? No 07/27/2022 Social Connection and Isolation Panel [NHANES] A nswer Date Recorded In a typical week, how many times do you talk on the phone with family, friends, or neighbors? Once a week 07/27/2022 How often do you get together with friends or re latives? Never 07/27/2022 How often do you attend mosque or religion serv ices? Never 07/27/2022 Do you belong to any clubs o r organizations such as mosque groups, unions, fraternal or athletic groups, or school groups? No 07/27/2022 How often do you attend meet ings of the clubs or organizations you belong to? Never 07/27/2022 Are you , , di vorced, , never , or living with a partner? 07/27/2022 AUDIT-C Answer Date Recorded Q1: How often do you have a drink containing alc ohol? Monthly or less 07/27/2022 Q2: How many drinks containi ng alcohol do you have on a typical day when you are drinking? 1 or 2 07/27/2022 Q3: How often do you have si x or more drinks on one occasion? Less than monthly 07/27/2022 Overall Financial Resource Strain (CARDIA) Answe r Date Recorded How hard is it for you to pa y for the very basics like food, housing, medical care, and heating? Hard 07/27/2022 PHQ-2 Answer Date Recorded PHQ-2 Score 6 07/10/2024 [facility] - Occupational Stress Questionnaire Answer Date Recorded Do you feel stress - tense, restless, nervous, or anxious, or unable to sleep at night because your mind is troubled all the time - these days? Not at all 07/27/2022 Exercise Vital Sign Answer Date Recorde d On average, how many days pe r week do you engage in moderate to strenuous exercise (like a brisk walk)? 2 days 08/30/2023 On average, how many minutes do you engage in exercise at this level? 10 min 08/30/2023 Hunger Vital Sign Answer Date Recorded Within the past 12 months, y ou worried that your food would run out before you got the money to buy more. Sometimes true Within the past 12 months, t he food you bought just didn't last and you didn't have money to get more. Sometimes true PRAPARE - Transportation Answer Date Re corded In the past 12 months, has l ack of transportation kept you from medical appointments or from getting medications? No 08/04 In the past 12 months, has l ack of transportation kept you from meetings, work, or from getting things needed for daily living? No 08/30/2023 Depression Answer Date Recor ded PHQ-9 Total Score (max 27) 22 07/10 Nutrition Answer Date Recorded On average, how many serving s of fruits and vegetables do you eat per day (serving size is equal to 1 cup or approximately the size of a tennis ball)? 0-2 08/30/2023 Dental Answer Date Recorded Dental: Regular Dentist No 11/29/19 22 Employment Answer Date Recorded Employment status Temporarily disabled Housing Stability Answer Date Recorded What is your living situation today? I h ave a place to live today, but I am worried about losing it in the future 08/30/2023 Education Answer Date Recorded What is the highest level of school you have completed or the highest degree you have received? GED or equivalent Comments No Sex and Gender Information Value Date Recorded Sex Assigned at Female 12/08/2021 7:51 PM CDT Legal Sex Female 1:47 PM CDT Gender Identity Female 12/08/2021 7:51 PM CDT Sexual Orientation Straight 12/08/2021 7: 51 PM CDT documented as of this encounter Miscellaneous Notes * Telephone Encounter - Es Evans L.P.N. - 07/11/2024 3:33 PM POTABLE WATER TREATMENT OPERATOR Called and notified patient of: Please call the patient. 1. Chest x-ray continues to show a pneumonia in left lower lobe with fluid. I have order a CT scan of chest to be completed as first available. We will treat with levofloxacin 750 mg once daily for 7days. Start antibiotic tomorrow. Let's have her follow up with me in 1 week. Adverse effects of levofloxacin can include tendinopathy/tendon rupture so please notify us if any tenon pain. Other adverse effects can include C diff infection (diarrhea), peripheral neuropathy, and hepatotoxicity. She should be seen urgently if breathing gets worse or she develops fever. 2. Potassium level is low-normal. Re-check in 1 week. 3. Hemoglobin level has declined slightly since hospital discharge. We will repeat this lab in 1 week. All orders are placed. I will plan to see her back in clinic in 1 week. Also sent this message via portal. Sent to scheduling to set up follow up blood testing, CT scan and follow up with Prudence. BLE WATER TREATMENT OPERATOR documented in this encounter Plan of Treatment Upcoming Encounters Date Type Department Care Team ([facility] Contact Info) Description 07/18/2024 1:00 PM POTABLE WATER TREATMENT OPERATOR Appointment Department of Radiology in [address] [address] Prudence Mena MPAS, P.A.-C. [address] [place] [address] Discharge Disposition: Home or Self Care documented as of this encounter Visit Diagnoses Not on filedocumented in this encounter Additional Health Concerns Assessment Noted Time PHQ-9 Depression Total Score: 22 025 7:19 PM POTABLE WATER TREATMENT OPERATOR documented as of this encounter Care Teams Assistant Bookkeeper Relationship Specialty Start Date End Date Prudence Mena MPAS, P.A.-C. [address] [place] [phone] PCP - General Internal Medicine 02/08/24 documented as of this encounter
--- OUTSIDE RECORDS SUMMARY | 2024-07-12 22:40 | XMS_ITS | Clinical Summary ---
Author Organization [facility] Address [place], [place] [address] Care Team Providers Care Director Of Agronomy Name Role Phone Kevin Berrios MD Unavailable [phone] Claudia Morillo MD Primary Care Provider Allergies Active Allergy Reactions Criticality Noted Date Comments Blood-Group Specific Substance Other - Describe In Comment Field 01/10/2018 ..Patient has warm Auto antibody. Blood products may be delayed. Draw patient 24 hours prior to transfusion. Draw one red top and two purple top tubes for all type and screen orders. Medications acetaminophen (TYLENOL EXTRA STRGTH) 500 mg tablet Take 2 tablets by mouth every 6 hours. Max acetaminophen dose: 4000mg in 24 hrs. 0 08/13/19 20 Active NebulizerIndicati ons:Asthma, unspecified asthma severity, unspecified whether complicated, unspecified whether persistent,Suspec rickey COVID-19 virus infection,Shortne ss of breath Nebulizer, reuseable neb kit x 1 Frequency of use: daily; Medication: albuterol Length of need: 99 months 1 Device 05/30/20 20 Active inhalational spacing deviceIndications :Moderate persistent asthma with acute exacerbation For home use. 1 Device 06/04/20 20 Active melatonin 5 mg capsuleIndication s:Sleep difficulties Take 1 capsule by mouth at bedtime. 90 capsule 3 07/10/19 21 Active hydrOXYzine HCL (ATARAX) 50 mg tabletIndications :Anxiety Take 1-2 Tablets (50-100 mg) by mouth every 6 hours if needed (Anxiety). 120 tablet. 1 09/22/19 21 Active albuterol (PROVENTIL) 0.083 % neb solutionIndicatio ns:Moderate persistent asthma without complication Inhale 3 mL (2.5 mg) via a nebulizer every 4 hours if needed. 1 box 1 11/14/19 21 Active fesoterodine 8 mg Tb24 Extended-Release tabletIndications :Urinary frequency Take 1 Tablet (8 mg) by mouth once daily. 90 Tablet 3 12/22/19 21 Active albuterol HFA (PRO-AIR; VENTOLIN; PROVENTIL) 90 mcg/actuation inhalerIndication s:Moderate persistent asthma without complication INHALE 1 TO 2 PUFFS BY MOUTH EVERY 4 HOURS NEEDED 1 Each 01/02/20 21 Active Advair HFA 115-21 mcg/actuation inhalerIndication s:Moderate persistent asthma without complication INHALE 2 PUFFS BY MOUTH EVERY 12 HOURS 3 Inhaler 2 01/13/20 21 Active lisinopriL (PRINIVIL; ZESTRIL) 10 mg tabletIndications :HTN (hypertension) TAKE 1 TABLET BY MOUTH EVERY DAY 30 Tablet 01/20/20 21 Active desvenlafaxine succinate (PRISTIQ) 100 mg extended release tabletIndications :Episode of recurrent major depressive disorder, unspecified depression episode severity (HC) TAKE 1 TABLET(100 MG) BY MOUTH EVERY MORNING 30 Tablet 01/24/20 21 Active gabapentin (NEURONTIN) 300 mg capsuleIndication s:Anxiety TAKE 3 CAPSULES(900 MG) BY MOUTH THREE TIMES DAILY 270 Capsule 01/24/20 21 Active busPIRone (BUSPAR) 30 mg tabletIndications :Anxiety TAKE 1 TABLET(30 MG) BY MOUTH TWICE DAILY 60 Tablet 2 01/26/20 21 Active desvenlafaxine succinate (PRISTIQ) 100 mg extended release tabletIndications :Episode of recurrent major depressive disorder, unspecified depression episode severity (HC) Take 1 Tablet (100 mg) by mouth every morning. 30 Tablet 2 01/26/20 21 Active gabapentin (NEURONTIN) 300 mg capsuleIndication s:Anxiety Take 3 Capsules (900 mg) by mouth 3 times daily. 270 Capsule 2 01/26/20 21 Active mirtazapine (REMERON) 30 mg tabletIndications :Episode of recurrent major depressive disorder, unspecified depression episode severity (HC),Anxiety,Psyc hophysiological insomnia TAKE 1 TABLET(30 MG) BY MOUTH AT BEDTIME 30 Tablet 2 01/26/20 21 Active lisdexamfetamine (Vyvanse) 50 mg capsuleIndication s:Attention deficit hyperactivity disorder (ADHD), predominantly inattentive type Take 1 Capsule (50 mg) by mouth once daily. 30 Capsule 02/21/20 21 Active lurasidone (LATUDA) 20 mg tabletIndications :Episode of recurrent major depressive disorder, unspecified depression episode severity (HC) Take 1 Tablet (20 mg) by mouth with dinner. 30 Tablet 1 01/26/20 21 Active dextroamphetamine -amphetamine (AdderalL) 5 mg tabletIndications :Attention deficit hyperactivity disorder (ADHD), predominantly inattentive type Take 1 Tablet (5 mg) by mouth once daily. 30 Tablet 01/26/20 21 Active trimethoprim 100 mg tabletIndications :History of recurrent UTIs Take 1 Tablet (100 mg) by mouth once daily. 90 Tablet 1 01/26/20 21 Active lisdexamfetamine (VYVANSE) 50 mg capsuleIndication s:Attention deficit hyperactivity disorder (ADHD), predominantly inattentive type Take 1 Capsule (50 mg) by mouth once daily. 30 Capsule 05/29/20 21 Active dextroamphetamine -amphetamine (AdderalL) 5 mg tabletIndications :Attention deficit hyperactivity disorder (ADHD), predominantly inattentive type Take 1 Tablet (5 mg) by mouth once daily. 60 Tablet 05/29/20 21 Active Vraylar 1.5 mg capsule Take 3 mg by mouth once daily. 02/08/20 22 Active dextroamphetamine sulfate (DEXEDRINE; DEXTROSTAT; ZENZEDI) 10 mg tablet take 1.5 tablets (15 mg) by mouth in the morning and at noon and take 1 tablet (10 mg) at 4 pm 02/09/20 22 Active levothyroxine (SYNTHROID) 25 mcg tablet Take 1 tablet (25 mcg) by mouth daily in the morning on an empty stomach. 02/23/20 22 Active LORazepam (ATIVAN) 0.5 mg tab Twice A Day as needed Active pregabalin (LYRICA) 300 mg capsule Take 300 mg by mouth two times daily. 02/04/20 22 Active traZODone (DESYREL) 50 mg tablet TAKE 1-4 TABLETS BY MOUTH ONCE DAILY AT BEDTIME. 10/14/19 22 Active venlafaxine (EFFEXOR XR) 150 mg Extended-Release capsule TAKE ONE CAPSULE BY MOUTH ONE TIME DAILY WITH FOOD 02/23/20 Active venlafaxine (EFFEXOR XR) 75 mg cp24 Extended-Release capsule Take 1 capsule (75 mg) by mouth daily with food with a 150 mg capSULE. 02/23/20 Active Active Problems Problem Noted Date Diagnosed Date Herpes zoster without complication 12/02/2019 Administrative encounter 08/19/2019 Levator spasm 08/13/2019 Ingestion of substance 07/03/2019 Headache 07/03/2019 Essential hypertension 07/03/2019 Severe episode of recurrent major depressive disorder, without psychotic features 06/22/2019 Acute cystitis 06/21/2019 Episode of recurrent major depressive disorder 1 08/22/2018 Closed nondisplaced fracture of base of fifth metacarpal bone of right hand with routine healing 05/14/2019 Dysuria 12/12/2018 Iron deficiency anemia 01/10/2018 Abdominal pain, s/p hyst elsewhere 01/09/2018 Normocytic anemia 01/02/2018 Pyelonephritis 01/01/2018 Hx of hysterectomy, elsewhere 12/28/2017 Overview (01/09/2018): ureteral injury Anxiety 12/26/2017 Acute blood loss anemia 11/30/2017 Right ureteral laceration 11/30/2017 Sleep difficulties 10/30/2017 Controlled substance agreement signed 07/04/2017 Overview (07/04/2017): 06/13/17 Signed .Kristen Landeros DNP, SLEEVE TURNER, THERAPY AIDE/psyciatry/hc Acute postoperative pain Acute postoperative abdominal pain Acute pelvic pain, female S/P hysterectomy Pain due to ureteral stent Right ovarian cyst Nausea Resolved Problems Problem Noted Date Diagnosed Date Resolved Date Pyelonephritis 01/01/2018 01/01/2018 Anxiety and depression 11/30/201703/27 Anxiety 10/30/2017 11/30/2017 Chronic insomnia 08/07/2017 11/30/2017 Moderate episode of recurren t major depressive disorder 08/07/2017 03/27/2019 Depression, major, in remission 06/13/2017 11/30/2017 Panic disorder with agorapho alberto, moderate agoraphobic avoidance and moderate panic attacks 06/13/2017 03/27/2019 Nausea 01/01/2018 Immunizations Name Administration Dates Next Due Tdap 11/07/2013 Family History Medical History Relation Name Comments Good Health Father Cancer-breast Maternal Grandmother Good Health Mother Hypertension Mother Cancer-colon No Family History Cancer-ovarian No Family History Cancer-prostate No Family History Relation Name Status Comments Brother Alive Father Alive Maternal Grandmother Mother Alive Other Alive Social History Tobacco Use Types Packs/Day Years Used Date Smoking Tobacco: Light Smoker Cigarettes 0.3 14 Smokeless Tobacco: Never Tobacco Cessation:Ready to Q uit: No; Counseling Given: No Comments:Social Alcohol Use Standard Drinks/Week Comments Yes 1 (1 standard drink = 0.6 oz pur e alcohol) occasional PHQ-2 Answer Date Recorded PHQ-2 TOTAL SCORE 6 01/22/2021 Social Connections Answer Date Recorded Frequency of Communication with Friends and Fami ly Not on file 06/23/2021 Financial Resource Strain Answer Date R ecorded Difficulty of Paying Living Expenses Not on file 06/23/2021 Difficulty of Paying Living Expenses Not on file 06/23/2021 Comments No Sex and Gender Information Value Date Recorded Sex Assigned at Not on file Legal Sex Female 4:21 PM CDT Gender Identity Not on file Sexual Orientation Not on file Obstetrics History Para Term AB IAB SAB Ectopic Multiple Livin g Live Births 5 3 2 1 2 0 2 0 1 4 4 Date Outcome GA Total Labor Labor/2nd/3rd Weight Sex Type Anes PTL Cherie A1 A5 Name Clin C-Sec tion Living Comments:TWINS born 8 weeks early-first baby 3lbs each 1.36 kg (3 lb) C-Sec tion Living SAB Demise Term 2.41 kg (5 lb 5 oz) C-Sec tion Living Comments:Uterine Rutpu re SAB Demise Term 2.89 kg (6 lb 6 oz) C-Sec tion Living Comments:Uterine ruptu re Last Filed Vital Signs Vital Sign Reading Time Taken Comments Blood Pressure 136/99 03/04/2022 5:54 PM CDT Pulse 93 03/04/2022 5:54 PM CDT Temperature 37.1 C (98.8 F) 03/04/2022 3:04 PM CDT Respiratory Rate 18 03/04/2022 3:04 PM CDT Oxygen Saturation 95% 03/04/2022 5:54 PM CDT Inhaled Oxygen Concentration - - Weight 93 kg (205 lb) 03/04/2022 3:04 PM CDT Height 162.6 cm (5' 4) 03/04/2022 3:04 PM CDT Body Mass Index 35.19 03/04/2022 3:04 PM CDT Plan of Treatment Health Maintenance Due Date Last Done Comments BMI (ht and wt on same day) for age 18+ 09/03/2021 09/03/2020, 02/07/2020, 09/12/2019, Additional history exists Depression screening for age 12+ 01/25/2022 01/25/2021, 01/22/2021, 01/20/2021, Additional history exists Tetanus booster 11/08/2023 11/07/2013 COVID-19 vaccine series ( season) 2024 08/23/2022, 12/23/2021, 12/02/2021 Influenza for age 9-49 03/03/2024 Tdap Completed 11/07/2013 Hepatitis C screening for age 18-79 Completed 03/20/2019 HIV for age 15-65 Completed 11/11/2020, , 03/20/2019 Pneumococcal series for age 6-49 Aged Out No longer eligible based on patient's age to complete this topic Procedures Procedure Name Priority Date/Time Associated Diagnosis Comments ANTI HIV 1/2 Routine 11/11/2020 1:29 PM CDT Has multiple sexual partners ANTI HCV Routine 03/20/2019 2:40 PM CDT Screening examination for STD (sexually transmitted disease) from Last 3 Months or Most Recently Relevant to Health Maintenance Results * ANTI HIV 1/2 (11/11/2020 1:29 PM CDT) HIV-1/HIV-2 ANTIBODY Non-Reacti ve Non-Reacti ve 11/11/2020 8:33 PM CDT [facility] Comment:HIV-1 p24 and HIV-1/ HIV-2 Ab not detected. Blood BLOOD SPECIMEN / Unknown Butterfly / Unknown 11/11/2020 1:29 PM CDT 11/11/2020 1:29 PM CDT us Claudai Morillo MD SEND OUTS Final Resul t [facility] [employer] [facility] [address] [place] [phone], * ANTI HCV (03/20/2019 2:40 PM CDT) HEPATITIS C ANTIBODY Non-React salomón Non-React salomón 03/21/2019 11:42 PM CDT [facility] [employer] [facility] [place] Comment:Antibodies to HCV no t detected; does not exclude the possibility of exposure to HCV. Blood BLOOD SPECIMEN / Unknown Venipuncture / Unknown 03/20/2019 2:40 PM CDT 03/20/2019 2:40 PM CDT us Claudia Morillo MD SEND OUTS Final Resul t Performing Organization Address City/[facility]/ZIP Co de Phone Number [facility] [employer] [facility] [address] [place] [address], from Last 3 Months or Most Recently Relevant to Health Maintenance Insurance [facility] Advance Directives * Full Code (Latest Code Status on File) Date Activated Date Inactivated Comments 02/13/2020 12:21 PM 02/13/2020 8:30 PM * Full Code Date Activated Date Inactivated Comments 08/13/2019 5:42 AM 08/13/2019 11:41 AM * Full Code Date Activated Date Inactivated Comments 07/04/2019 8:04 AM 07/08/2019 1:20 PM Question Answer Comments Code Status Discussion: Not Discussed * Full Code Date Activated Date Inactivated Comments 06/21/2019 7:24 PM 07/01/2019 1:20 PM Question Answer Comments Code Status Discussion: Not Discussed * Full Code Date Activated Date Inactivated Comments 04/16/2019 3:10 PM 04/16/2019 8:58 PM Care Teams Director Of Agronomy Relationship Specialty Start Date End Date Claudia Morillo MD [address] [place] [address] PCP - General Family Practice 03/04/22 Kevin Berrios MD Surgery - Urology 02/27/20
--- OUTSIDE RECORDS SUMMARY | 2024-07-12 22:40 | XMS_ITS | Clinical Summary ---
Author Organization [facility] Address [address] [place] [address] Care Team Providers Care Durable Medical Equipment Technician Name Role Phone Prudence Mena P.A.-C. Primary Care Pro vider Source Comments Patient records contain information from all sites at [facility]. For routine questions regarding patient records, call [phone] during business hours, M-F 8:00 AM - 5:00 PM Central Time. Record requests for emergency care only can be directed to [phone] at any time.[facility] Allergies Active Allergy Reactions Criticality Noted Date Comments Blood-Group Specific Substance Other (see comments) 01/10/2018 ..Patient has warm Auto antibody. Blood products may be delayed. Draw patient 24 hours prior to transfusion. Draw one red top and two purple top tubes for all type and screen orders. Medications * This document contains information received from the source organization and may not represent a complete record from that organization. acetaminophen (TYLENOL) 500 mg tablet Take 1,000 mg by mouth as needed. 08/13/19 20 Active traZODone (DESYREL) 50 mg tablet TAKE 1-4 TABLETS BY MOUTH ONCE DAILY AT BEDTIME. 10/14/19 22 Active estradioL (ESTRACE) 0.1 mg/g (0.01%) vaginal cream Insert 1 g into the vagina 3 (three) times a week. Nightly for first week. 42 g 3 04/15/20 22 Active multivitamin capsule Take 1 capsule by mouth daily. Active cholecalcifero l (VITAMIN D3) 50 mcg (2,000 Unit) capsule Take 50 mcg by mouth daily. 09/04/19 Active Vraylar 4.5 mg capsule TAKE ONE CAPSULE BY MOUTH ONE TIME DAILY* 10/12/19 Active fluticasone propion-salmet [place] (Advair HFA) 115-21 mcg/actuation inhaler Inhale 2 puffs 2 (two) times a day. 12 g 3 10/27/19 Active buPROPion XL (WELLBUTRIN XL) 150 mg 24 hr tablet Take 1 tablet (150 mg total) by mouth every morning. Take with 300 mg tablet for a total daily dose of 450 mg. 90 tablet 2 01/24/20 Active buPROPion XL (WELLBUTRIN XL) 300 mg 24 hr tablet Take 1 tablet (300 mg total) by mouth every morning. Take with 150 mg tablet for a total daily dose of 450 mg daily. 90 tablet 2 01/24/20 Active polyethylene glycol (MIRALAX) 17 gram/dose oral powder Take 17 g by mouth daily. Dissolve each 17 g dose in 240 mL (8 ounces) of beverage. 850 g 3 03/15/20 Active elagolix (Orilissa) 150 mg tablet tablet Take 1 tablet (150 mg total) by mouth daily. 30 tablet 11 03/15/20 23 Active DULoxetine (CYMBALTA) [address] capsule TAKE ONE CAPSULE BY MOUTH ONE TIME DAILY* 03/31/20 23 Active nitrofurantoin (MACRODANTIN) 50 mg capsule TAKE ONE CAPSULE BY MOUTH ONE TIME DAILY 90 capsule 3 04/21/20 23 Active dextroamphetam ine-amphetamin e (ADDERALL) 10 mg tablet Take 1 tablet by mouth between 12pm and 2pm daily* 11/01/19 Active fluticasone propionate (FLOVENT DISKUS) 100 mcg/actuation diskus inhaler 06/29/20 18 Active dextroamphetam ine sulfate (Dexedrine Spansule) 15 mg ER capsule Take 1 capsule by mouth daily. 11/30/19 24 Active DME CPAPIndication s:Obstructive Sleep Apnea Adult DME Order 1 each 01/25/20 24 Active Additional Information Patient taking differently: DME OrderPatient stated she needs to order picker, Informant: Self, Reported on 07/11/2024 lisinopriL 10 mg tablet Take 1 tablet (10 mg total) by mouth daily. 90 tablet 3 02/08/20 24 Active Ventolin HFA 90 mcg/actuation inhaler INHALE 2 PUFFS EVERY 4 HOURS NEEDED FOR WHEEZING OR SHORTNESS OF BREATH. 54 g 3 03/05/20 24 Active pregabalin (Lyrica) 200 mg capsuleIndicat ions:Fibromyal alka Take 1 capsule (200 mg total) by mouth 3 (three) times a day. 90 capsule 3 03/21/20 24 Active fluticasone propionate (Flonase) 50 mcg/actuation nasal spray Administer 2 sprays into each nostril daily for 10 days. 16 g 06/11/20 24 Active albuterol 2.5 mg /3 mL nebulizer solution Inhale 3 mL (2.5 mg total) by nebulization every 4 (four) hours as needed for wheezing or shortness of breath. 75 mL 2 06/11/20 24 Active ipratropium-al buteroL (DuoNeb) 0.5-2.5 mg/3 mL nebulizer solution Inhale 3 mL by nebulization 4 (four) times a day as needed for shortness of breath. 180 mL 3 06/11/20 24 Active LORazepam (Ativan) 0.5 mg tablet Take 0.5 mg by mouth. 08/17/19 24 Active lidocaine (Lidoderm) 5 % adhesive patch,medicate d Place 1 patch on the skin daily. Apply to painful area 12 hours per day, remove for 12 hours. 10 patch 07/11/19 25 Active levoFLOXacin (Levaquin) 750 mg tabletIndicati ons:Pneumonia Take 1 tablet (750 mg total) by mouth daily before morning meal. 7 tablet 07/11/19 25 Active azithromycin (Zithromax Z-Jenaro) 250 mg tablet 2 tablets (500 mg) once and then 1 tablet Daily for 4 days 6 tablet 06/11/20 24 025 Discontinued benzonatate (Tessalon Perles) 100 mg capsule Take 1 capsule (100 mg total) by mouth 3 (three) times a day. 20 capsule 06/11/20 24 025 Discontinued Active Problems Problem Noted Date Diagnosed Date Asthma 07/11/2024 Hemorrhage Gastrointestinal 07/11/2024 Overview (07/11/2024): -reported soft stools overnight. Nursing reported formed, dark this morning -C diff negative -FOBT positive - likely result of scheduled ibuprofen which we have been using to avoid narcotics, additionally enoxaparin and steroids . Discontinue NSAIDs and enoxaparin (more ambulatory now) Hemoglobin stable, unchanged, 10.9. Advised to avoid NSAIDs at time of discharge. Close outpatient follow-up with PCP, recheck hemoglobin. Return to ED if new or worsening symptoms. Chronic Bladder Pain 06/04/2023 Fibromyalgia 10/21/2022 Apnea Sleep Obstructive 10/13/2022 Overview (11/07/2023): Previously followed with Dr. Velasquez. Unable to tolerate CPAP. No-show for Sleep Medicine consult October 2023 in [place]. I have reordered her a consult as first available. 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 Unremarkable CT urogram. No findings to explain hematuria. 2. No other acute or significant findings. 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 Hypertension Essential Primary 01/05/2022 Nicotine Dependence Cigarettes 01/05/2022 Overview (05/14/2024): Previously experienced nightmares with Chantix. December 2022: Wellbutrin increased from 300 mg daily to 450 mg daily for smoking cessation with initial benefit. Anxiety Generalized Disorder 12/03/2021 Overview (09/03/2023): Follows with Psychiatry in [place]. Attends therapy in [place]. Attention Deficit With Hyperactivity Disorder Overview (09/03/2023): Follows with Psychiatry in [place]. Attends therapy in [place]. Major Depressive Disorder, Recurrent, Unspecifie d 12/03/2021 Overview (09/03/2023): Follows with Psychiatry in [place]. Attends therapy in [place]. Headache Unspecified 07/03/2019 Fracture Fifth Metacarpal Ba se Nondisplaced Subsequent With Routine Healing Right 05/14/2019 Hysterectomy Status Post 12/28/2017 Overview (12/03/2021): ureteral injury Resolved Problems Problem Noted Date Diagnosed Date Resolved Date Maintenance Health Adult 09/03/202309/2023 Spasm Muscle 05/24/2023 09/03/2023 Radiculopathy Lumbar 10/21/2022 023 Iron Deficiency Anemia Screening Exam 12/03/2021 10/21/2022 Urinary Tract Infection (UTI)/Bacteriuria NOS 12/04/19 22 08/23/2022 Overview (08/01/2022): Diagnosis Maintenance Updates Zoster Without Complications 12/02/2019 09/03/2023 Spasm Muscle 08/13/2019 10/21/2022 Anxiety 12/26/2017 08/23/2022 Laceration Ureter Initial 11/30/2017 Sleep Disorder 10/30/2017 09/04/2023 Encounters Date Type Department Care Team Description 07/11/2024 11:17 AM HOME HEALTH CARE SOCIAL WORKER - 07/11/2024 11:59 PM HOME HEALTH CARE SOCIAL WORKER Hospital Encounter Department of Radiology in [address] [address] Prudence Mena MPAS, P.A.-C. Pneumonia Discharge Disposition: Home or Self Care 07/11/2024 11:08 AM HOME HEALTH CARE SOCIAL WORKER - 07/11/2024 11:16 AM HOME HEALTH CARE SOCIAL WORKER Hospital Encounter Department of Laboratory Medicine in [address] [phone] Prudence Mena MPAS, P.A.-C. Pneumonia Discharge Disposition: Home or Self Care 07/11/2024 11:07 AM HOME HEALTH CARE SOCIAL WORKER Hospital Encounter Department of Laboratory Medicine in [address] [address] Prudence Mena MPAS, P.A.-C. Blood In Stool Discharge Disposition: Home or Self Care 07/11/2024 10:40 AM HOME HEALTH CARE SOCIAL WORKER Office Visit Department of Community Internal Medicine in [address] [phone] Prudence Mena MPAS, P.A.-C. Hypokalemia (Primary Dx); Pneumonia; Effusion Pleural; Blood In Stool 07/11/2024 Clinical Communication Department of Community Internal Medicine in [address] [address] Prudence Mena MPAS, P.A.-C. 07/11/2024 Orders Only Department of Community Internal Medicine in [address] [address] Prudence Mena MPAS, P.A.-C. Pneumonia (Primary Dx) 06/11/2024 3:30 PM HOME HEALTH CARE SOCIAL WORKER Office Visit Department of Family Medicine, [facility], in [address] [phone] Kaley Jones APRN, C.N.P., D.N.P. Infection Upper Respiratory (Primary Dx) 06/11/2024 Nurse Triage Department of Community Internal Medicine in [address] [phone] Eduardo Ding, R.N. Cough from Last 3 Months Immunizations Name Administration Dates Next Due Influenza, Unspecified 09/04/2023(Deferred: Othe r) Pneumococcal, Unspecified 09/04/2023(Deferred: P arental decision) SARS-COV-2 (COVID-19) - NOVA VAX Fall Seasonal 09/04/2023(Deferred: Patient decision) SARS-COV-2 (COVID-19) - PFIZ ER BIVALENT TS(Discontinued)(12 YEARS OR OLDER) 08/23/2022 Tdap 11/07/2013 influenza trivalent vaccine (6 months and older)(PF) 09/13/2013 Family History Medical History Relation Name Comments Anxiety disorder Maternal Grandmother Bonnie Bear Breast cancer Maternal Grandmother Bonnie Bear Had br east cancer and one breast removed Depression Maternal Grandmother Bonnie Bear Hypertension Maternal Grandmother Bonnie Bear Stroke Maternal Grandmother Bonnie Bear Had a m assive stroke Alcohol abuse Mother Kandice Haynes Anxiety disorder Mother Kandice Haynes Depression Mother Kandice Haynes Hypertension Mother Kandice Haynes Sleep apnea Mother Kandice Haynes Thyroid disease Mother Kandice Haynes Relation Name Status Comments Maternal Grandmother Bonnie Bear Mother Kandice Haynes Social History Tobacco Use Types Packs/Day Years Used Date Smoking Tobacco: Former Cigarettes 1.5 0.1 S tarted: 06/21/2024 Passive Smoke Exposure: Past Smokeless Tobacco: Never Tobacco Cessation:Counseling Given: Not Answered Alcohol Use Standard Drinks/Week Comments Yes 0 (1 standard drink = 0.6 oz pur e alcohol) socially [facility] Utilities Answer Date Recorded In the past 12 months has e [employer], gas, oil, or water [employer] threatened to shut off services in your [...] Never 07/27/2022 How often do you attend hindu or zoroastrianism serv ices? Never 07/27/2022 Do you belong to any clubs o r organizations such as hindu groups, unions, fraternal or athletic groups, or [...] Answer Date Recorded PHQ-2 Score 6 07/10/2024 [facility] - Occupational Stress [...] Date Recorded Dental: Regular Dentist No 11/29/19 Employment Answer Date Recorded Employment status Temporarily [...] Orientation Straight 12/08/2021 7: 51 PM CDT Last Filed Vital Signs Vital Sign Reading Time Taken Comments Blood Pressure 106/72 07/11/2024 11:00 AM HOME HEALTH CARE SOCIAL WORKER Pulse 85 07/11/2024 11:00 AM HOME HEALTH CARE SOCIAL WORKER Temperature 36 C (96.8 F) 07/11/2024 10:32 AM HOME HEALTH CARE SOCIAL WORKER Respiratory Rate 30 07/11/2024 10:32 AM HOME HEALTH CARE SOCIAL WORKER Oxygen Saturation 96% 07/11/2024 10:32 AM HOME HEALTH CARE SOCIAL WORKER Inhaled Oxygen Concentration - - Weight 96.2 kg (212 lb 3.1 oz) 07/11/2024 10:32 AM HOME HEALTH CARE SOCIAL WORKER Height 163 cm (5' 4.17) 07/11/2024 10:32 AM HOME HEALTH CARE SOCIAL WORKER Body Mass Index 36.23 07/11/2024 10:32 AM HOME HEALTH CARE SOCIAL WORKER Plan of Treatment Upcoming Encounters Date Type Department Care Team (Late st Contact Info) Description 07/18/2024 1:00 PM HOME HEALTH CARE SOCIAL WORKER Appointment Department of Radiology in [place], [place] [address] [place] [address] Prudence Mena MPAS, P.A.-C. [address] [phone] Discharge Disposition: Home or Self Care Health Maintenance Due Date Last Done Comments Hepatitis B Vaccines (1 of 3 - 19+ 3-dose series) 2005 Pneumococcal vaccine (0-49 years) (1 of 2 - PCV) 2005 DTaP,Tdap,and Td Vaccines (2 - Td or Tdap) 11/08/2023 11/07/2013 COVID-19 Vaccine (4 - season) 2024 08/23/2022, 12/23/2021, 12/02/2021 Influenza Vaccine (#1) 2024 09/13/2013 Visit: Chronic Disease, age 18+ 06/05/2024 06/05/2023 Depression Monitoring (PHQ-9 for quality tracking) 07/03/2024 Asthma Action Plan 07/11/2024 Asthma Control Test Questionnaire 07/11/2024 Asthma Management/Exacerbation Questionnaire (AMQ/AEQ) 07/11/2024 Depression Monitoring (PHQ-9) 11/07/2024 07/10/2024 Creatinine Level (Kidney Function Test) 07/11/2025 07/11/2024, 12/29/2023, 08/23/2022, Additional history exists Glucose Test for Med Monitoring 07/11/2025 07/11/2024, 12/29/2023, 08/23/2022, Additional history exists Office Visit for Blood Pressure Check / Re-check 07/11/2025 07/11/2024 Potassium Level 07/11/2025 07/11/2024, 12/02, 08/23/2022, Additional history exists Sodium Level 07/11/2025 07/11/2024, 12/02, 08/23/2022, Additional history exists Lipid (Cholesterol) Screening 10/08/2025 10/08/2020 HIV Screening Completed 08/23/2022 HPV Vaccines Aged Out No longer eligi ble based on patient's age to complete this topic IPV Vaccines Aged Out No longer eligi ble based on patient's age to complete this topic Procedures Procedure Name Priority Date/Time Associated Diagnosis Comments DX CHEST AP OR PA AND LATERAL 2 VIEWS RAD - Routine (most inpatients and all outpatients) 07/11/2024 11:26 AM HOME HEALTH CARE SOCIAL WORKER Pneumonia BASIC METABOLIC PANEL, S/P Routine 07/11/2024 11:17 AM HOME HEALTH CARE SOCIAL WORKER Pneumonia CBC WITH DIFFERENTIAL, B Routine 07/11/2024 11:17 AM HOME HEALTH CARE SOCIAL WORKER Pneumonia HIV-1/-2 AG AND AB SCREEN, PLASMA Routine 08/23/2022 5:13 PM HOME HEALTH CARE SOCIAL WORKER Screening For Venereal Disease from Last 3 Months or Most Recently Relevant to Health Maintenance Results * DX Chest AP or PA and Lateral 2 Views (07/11/2024 11:26 AM HOME HEALTH CARE SOCIAL WORKER) Anatomical Region Laterality Modality Chest, Thoracic RST LOS, Tho racic ARZ LOS, Thoracic FLA LOS N/A Digital Radiography Impressions 07/11/2024 11:59 AM HOME HEALTH CARE SOCIAL WORKER No direct comparison available at time of dictation. Trachea is midline. The cardiomediastinal silhouette is partially obscured. Small left pleural effusion with overlying atelectasis. No right pleural effusion. No pneumothorax. Consolidation within the left lower lobe, concerning for pneumonia. Linear opacities within the right and left lungs is most compatible with atelectasis. Thoracic spondylosis. Partially visualized upper abdomen is within normal limits. Narrative 07/11/2024 11:59 AM HOME HEALTH CARE SOCIAL WORKER EXAM: DX CHEST AP OR PA AND LATERAL 2 VIEWS Procedure Note Gema Anthony D.O. - 07/11/2024 EXAM: DX CHEST AP OR PA AND LATERAL 2 VIEWS IMPRESSION: No direct comparison available at time of dictation. Trachea is midline.The cardiomediastinal silhouette is partially obscured. Small left pleuraleffusion with overlying atelectasis. No right pleural effusion. Nopneumothorax. Consolidation within the left lower lobe, concerning for pneumonia. Linear opacitieswithin the right and left lungs is most compatible with atelectasis.Thoracic spondylosis. Partially visualized upper abdomen is within normallimits. us Prudence TO, P.A.-C. IMG DIAGNOSTIC IM AGING PROCEDURES Final Result * (ABNORMAL) CBC with Differential, Blood (07/11/2024 11:17 AM HOME HEALTH CARE SOCIAL WORKER) Hemoglobin 10.0(L) 11.6 - 15.0 g/dL 07/11/2024 11:25 AM HOME HEALTH CARE SOCIAL WORKER FB60 Hematocrit 30.7(L) 35.5 - 44.9 % 07/11/2024 11:25 AM HOME HEALTH CARE SOCIAL WORKER FB60 Erythrocytes 3.39(L) 3.92 - 5.13 x10(12)/L 07/11/2024 11:25 AM HOME HEALTH CARE SOCIAL WORKER FB60 MCV 90.6 78.2 - 97.9 fL 07/11/2024 11:25 AM HOME HEALTH CARE SOCIAL WORKER FB60 RBC Distrib Width 14.9 12.2 - 16.1 % 07/11/2024 11:25 AM HOME HEALTH CARE SOCIAL WORKER FB60 Platelet Count 678(H) 157 - 371 x10(9)/L 07/11/2024 11:25 AM HOME HEALTH CARE SOCIAL WORKER FB60 Leukocytes 14.7(H) 3.4 - 9.6 x10(9)/L 07/11/2024 11:25 AM HOME HEALTH CARE SOCIAL WORKER FB60 Neutrophils 11.68(H) 1.56 - 6.45 x10(9)/L 07/11/2024 11:25 AM HOME HEALTH CARE SOCIAL WORKER FB60 Lymphocytes 1.65 0.95 - 3.07 x10(9)/L 07/11/2024 11:25 AM HOME HEALTH CARE SOCIAL WORKER FB60 Monocytes 1.28(H) 0.26 - 0.81 x10(9)/L 07/11/2024 11:25 AM HOME HEALTH CARE SOCIAL WORKER FB60 Eosinophils 0.06 0.03 - 0.48 x10(9)/L 07/11/2024 11:25 AM HOME HEALTH CARE SOCIAL WORKER FB60 Basophils <0.04 0.01 - 0.08 x10(9)/L 07/11/2024 11:25 AM HOME HEALTH CARE SOCIAL WORKER FB60 Blood (Blood, Venous) 07/11/2024 11:17 AM HOME HEALTH CARE SOCIAL WORKER 07/11/2024 11:17 AM HOME HEALTH CARE SOCIAL WORKER us Prudence TO, P.A.-C. LAB BLOOD ADD-ON Final Result [facility] [address] [place] [address], [facility] FB60 [facility] [place] [address] [place] [address] * (ABNORMAL) Basic Metabolic Panel (07/11/2024 11:17 AM HOME HEALTH CARE SOCIAL WORKER) Potassium, P 3.6 3.6 - 5.2 mmol/L 07/11/2024 1:43 PM HOME HEALTH CARE SOCIAL WORKER OWAT Sodium, P 141 135 - 145 mmol/L 07/11/2024 1:43 PM HOME HEALTH CARE SOCIAL WORKER [employer]AT Chloride, P 104 98 - 107 mmol/L 07/11/2024 1:43 PM HOME HEALTH CARE SOCIAL WORKER [employer] Bicarbonate, P 27 22 - 29 mmol/L 07/11/2024 1:43 PM HOME HEALTH CARE SOCIAL WORKER [employer] Anion Gap, P 10 7 - 15 07/11/2024 1:43 PM HOME HEALTH CARE SOCIAL WORKER [employer] BUN (Blood Urea Nitrogen), P 18 6 - 21 mg/dL 07/11/2024 1:43 PM HOME HEALTH CARE SOCIAL WORKER [employer]AT Creatinine 0.53(L) 0.59 - 1.04 mg/dL 07/11/2024 1:43 PM HOME HEALTH CARE SOCIAL WORKER OWAT Estimated GFR (eGFR) >90 >=60 mL/min/BSA 07/11/2024 1:43 PM HOME HEALTH CARE SOCIAL WORKER OWAT Comment: Estimated GFR calculated using the 2020 CKD_EPI creatinine equation. Calcium, Total, P 9.0 8.6 - 10.0 mg/dL 07/11/2024 1:43 PM HOME HEALTH CARE SOCIAL WORKER [employer]AT Glucose, P 126 70 - 140 mg/dL 07/11/2024 1:43 PM HOME HEALTH CARE SOCIAL WORKER [employer]AT Blood (Blood, Venous) 07/11/2024 11:17 AM HOME HEALTH CARE SOCIAL WORKER 07/11/2024 12:57 PM HOME HEALTH CARE SOCIAL WORKER Prudence TO, P.A.-C. LAB BLOOD ADD-ON Final Result [facility] [address] [place] [address], [facility] OW[address] [facility] in [place] [address] [place] [address] * HIV-1/-2 Ag and Ab Screen, Plasma (08/23/2022 5:13 PM HOME HEALTH CARE SOCIAL WORKER) HIV Ag/Ab Screen, P Negative Negative 08/24/2022 12:12 PM HOME HEALTH CARE SOCIAL WORKER [facility] Comment: Negative result does not rule out HIV infection. If exposure to HIV infection occurred <14 days ago, contact the laboratory to request addition of HIV-1 RNA detection / quantification test. HIV-1 p24 Ag Screen, P Negative Negative 08/24/2022 12:12 PM HOME HEALTH CARE SOCIAL WORKER [facility] Comment: Negative result does not rule out HIV infection. If exposure to HIV infection occurred <14 days ago, contact the laboratory to request addition of HIV-1 RNA detection / quantification test. HIV-1 Ab Screen, P Negative Negative 2022 12:12 PM HOME HEALTH CARE SOCIAL WORKER [facility] Comment: Negative result does not rule out HIV infection. If exposure to HIV infection occurred <14 days ago, contact the laboratory to request addition of HIV-1 RNA detection / quantification test. HIV-2 Ab Screen, P Negative Negative 2022 12:12 PM HOME HEALTH CARE SOCIAL WORKER [facility] Comment: Negative result does not rule out HIV infection. If exposure to HIV infection occurred <14 days ago, contact the laboratory to request addition of HIV-1 RNA detection / quantification test. Blood (Blood, Venous) 08/23/2022 5:13 PM HOME HEALTH CARE SOCIAL WORKER 08/24/2022 10:53 AM HOME HEALTH CARE SOCIAL WORKER Prudence TO, P.A.-C. LAB MICROBIOLOGY - BLOOD ORDERABLES Final Result [facility] [address] [place] [id number], [facility] [address] [address] from Last 3 Months or Most Recently Relevant to Health Maintenance Insurance [facility] [place] [place] [id number] Care Teams Durable Medical Equipment Technician Relationship Specialty Start Date End Date Prudence Mena MPAS, P.A.-C. [address] [place] [address] DESHAUN CONNELLY [id number] PCP - General Internal Medicine 02/08/24
--- OUTSIDE RECORDS SUMMARY | 2024-07-12 22:40 | XMS_ITS | Encounter Summary ---
Author Organization [facility] Address [address] [place] [address] Care Team Providers Care Chip Bin Conveyor Tender Name Role Phone Prudence Mena P.ADmitry-CDmitry Primary Care Pro vider Encounter Details Date Type Department Care Team (Latest Contact Info) Description 07/11/2024 11:07 AM [facility] Hospital Encounter Department of Laboratory Medicine in [place], [place] [address] [place] [address] Prudence Mena MPAS P.A.-C. [address] [place] [address] Blood In Stool Discharge Disposition: Home or Self Care Social History Tobacco Use Types Packs/Day Years Used Date Smoking Tobacco: Former Cigarettes 1.5 0.1 S tarted: 06/21/2024 Passive Smoke Exposure: Past Smokeless Tobacco: Never Alcohol Use Standard Drinks/Week Comments Yes 0 (1 standard drink = 0.6 oz pur e alcohol) socially [facility] Utilities Answer Date Recorded In the past 12 months has e [employer], gas, oil, or water [employer] threatened to shut off services in your [...] Never 07/27/2022 How often do you attend gnosticist or anglican serv ices? Never 07/27/2022 Do you belong to any clubs o r organizations such as gnosticist groups, unions, fraternal or athletic groups, or [...] Answer Date Recorded PHQ-2 Score 6 07/10/2024 [facility] of Occupat ional Health - Occupational Stress [...] PM CDT documented as of this encounter Medications at Time of Discharge acetaminophen (TYLENOL) 500 mg tablet Take 1,000 mg by mouth as needed. 08/13/2019 albuterol 2.5 mg /3 mL nebulizer solution Inhale 3 mL (2.5 mg total) by nebulization every 4 (four) hours as needed for wheezing or shortness of breath. 75 mL 2 06/11/2024 buPROPion XL (WELLBUTRIN XL) 150 mg 24 hr tablet Take 1 tablet (150 mg total) by mouth every morning. Take with 300 mg tablet for a total daily dose of 450 mg. 90 tablet 2 01/23/2023 buPROPion XL (WELLBUTRIN XL) 300 mg 24 hr tablet Take 1 tablet (300 mg total) by mouth every morning. Take with 150 mg tablet for a total daily dose of 450 mg daily. 90 tablet 2 01/23/2023 cholecalciferol (VITAMIN D3) 50 mcg (2,000 Unit) capsule Take 50 mcg by mouth daily. 09/03/2022 dextroamphetamin e sulfate (Dexedrine Spansule) 15 mg ER capsule Take 1 capsule by mouth daily. 11/30/2023 dextroamphetamin e-amphetamine (ADDERALL) 10 mg tablet Take 1 tablet by mouth between 12pm and 2pm daily* 11/01/2023 DME CPAPIndications: Obstructive Sleep Apnea Adult DME Order 1 each 01/25/2024 DULoxetine (CYMBALTA) [address] capsule TAKE ONE CAPSULE BY MOUTH ONE TIME DAILY* 03/31/2023 elagolix (Orilissa) 150 mg tablet tablet Take 1 tablet (150 mg total) by mouth daily. 30 tablet 11 03/15/2023 estradioL (ESTRACE) 0.1 mg/g (0.01%) vaginal cream Insert 1 g into the vagina 3 (three) times a week. Nightly for first week. 42 g 3 2022 fluticasone propion-salmeter oL (Advair HFA) 115-21 mcg/actuation inhaler Inhale 2 puffs 2 (two) times a day. 12 g 3 10/26/2022 fluticasone propionate (Flonase) 50 mcg/actuation nasal spray Administer 2 sprays into each nostril daily for 10 days. 16 g 06/11/2024 fluticasone propionate (FLOVENT DISKUS) 100 mcg/actuation diskus inhaler 06/29/2018 ipratropium-albu teroL (DuoNeb) 0.5-2.5 mg/3 mL nebulizer solution Inhale 3 mL by nebulization 4 (four) times a day as needed for shortness of breath. 180 mL 3 06/11/2024 lidocaine (Lidoderm) 5 % adhesive patch,medicated Place 1 patch on the skin daily. Apply to painful area 12 hours per day, remove for 12 hours. 10 patch 07/11/2024 lisinopriL 10 mg tablet Take 1 tablet (10 mg total) by mouth daily. 90 tablet 3 02/08/2024 LORazepam (Ativan) 0.5 mg tablet Take 0.5 mg by mouth. 08/17/2023 multivitamin capsule Take 1 capsule by mouth daily. nitrofurantoin (MACRODANTIN) 50 mg capsule TAKE ONE CAPSULE BY MOUTH ONE TIME DAILY 90 capsule 3 04/21/2023 polyethylene glycol (MIRALAX) 17 gram/dose oral powder Take 17 g by mouth daily. Dissolve each 17 g dose in 240 mL (8 ounces) of beverage. 850 g 3 03/15/2023 pregabalin (Lyrica) 200 mg capsuleIndicatio ns:Fibromyalgia Take 1 capsule (200 mg total) by mouth 3 (three) times a day. 90 capsule 3 03/21/2024 traZODone (DESYREL) 50 mg tablet TAKE 1-4 TABLETS BY MOUTH ONCE DAILY AT BEDTIME. 10/13/2021 Ventolin HFA 90 mcg/actuation inhaler INHALE 2 PUFFS EVERY 4 HOURS NEEDED FOR WHEEZING OR SHORTNESS OF BREATH. 54 g 3 03/05/2024 Vraylar 4.5 mg capsule TAKE ONE CAPSULE BY MOUTH ONE TIME DAILY* 10/11/2022 documented as of this encounter Plan of Treatment Upcoming Encounters Date Type Department Care Team ([facility] Contact Info) Description 07/18/2024 1:00 PM MARKING CLERK Appointment Department of Radiology in [place] [address] [place] [phone] Prudence Mena MPAS, P.A.-C. [address] [facility] [place] [address] Discharge Disposition: Home or Self Care Scheduled Orders Name Type Priority Associated Diagnoses Orde r Schedule HemoQuant, Feces Lab Routine Blood In Stool Once for 1 Occurrences starting 07/11/2024 until 07/11/2024 documented as of this encounter Visit Diagnoses Diagnosis Blood In Stool documented in this encounter Additional Health Concerns Assessment Noted Time PHQ-9 Depression Total Score: 22 025 7:19 PM MARKING CLERK documented as of this encounter Care Teams Chip Bin Conveyor Tender Relationship Specialty Start Date End Date Prudence Mena MPAS, P.A.-C. 300 [facility] [place] [address] PCP - General Internal Medicine 02/08/24 documented as of this encounter
--- OUTSIDE RECORDS SUMMARY | 2024-07-12 22:40 | XMS_ITS | Encounter Summary ---
Author Organization [facility] Address [address] [place] [address] Care Team Providers Care Demolition Hammer Operator Name Role Phone Prudence Mena P.A.-C. Primary Care Pro vider Reason for Referral * Outpatient (Routine) - Closed Specialty Diagnoses / Procedures Referred By Contac t Referred To Contact Diagnoses Pneumonia Procedures DX Chest AP or PA and Lateral 2 Views Prudence Mena MPAS, P.A.-CDmitry [address] [place] [address] Phone: tel: fax: [facility] Referral ID Status Reason Start Date Expiration Date Visits Re quested Visits Authorized [id number] Closed 07/11/2024 07/11/2025 1 1 R USE INSPECTOR Reason for Visit * Reason Comments Post Ed Visit Follow-up [facility] follow up- would like a HGB done also per nurse * Appointment Request (Routine) - Closed Specialty Diagnoses / Procedures Referred By Contac t Referred To Contact Family Medicine Referral ID Status Reason Start Date Expiration Date Visits Re quested Visits Authorized [id number] Closed 06/11/2024 06/11/2025 1 1 Encounter Details Date Type Department Care Team (Late st Contact Info) Description 07/11/2024 10:40 AM WATER USE INSPECTOR Office Visit Department of Community Internal Medicine in [place], [place] [address] [place] [address] Prudence Mena MPAS P.A.-C. [address] [facility] [place] [phone] Hypokalemia (Primary Dx); Pneumonia; Effusion Pleural; Blood In Stool Social History Tobacco Use Types Packs/Day Years Used Date Smoking Tobacco: Former Cigarettes 1.5 0.1 S tarted: 06/21/2024 Passive Smoke Exposure: Past Smokeless Tobacco: Never Tobacco Cessation:Counseling Given: Not Answered Alcohol Use Standard Drinks/Week Comments Yes 0 (1 standard drink = 0.6 oz pur e alcohol) socially [facility] Utilities Answer Date Recorded In the past 12 months has e electric, gas, oil, or water [employer] threatened to shut off services in your [...] Never 07/27/2022 How often do you attend yazidism or zoroastrianism serv ices? Never 07/27/2022 Do you belong to any clubs o r organizations such as yazidism groups, unions, fraternal or athletic groups, or [...] Answer Date Recorded PHQ-2 Score 6 07/10/2024 [facility] of Occupat ional Health - Occupational Stress [...] PM CDT documented as of this encounter Last Filed Vital Signs Vital Sign Reading Time Taken Comments Blood Pressure 106/72 07/11/2024 11:00 AM WATER USE INSPECTOR Pulse 85 07/11/2024 11:00 AM WATER USE INSPECTOR Temperature 36 C (96.8 F) 07/11/2024 10:32 AM WATER USE INSPECTOR Respiratory Rate 30 07/11/2024 10:32 AM WATER USE INSPECTOR Oxygen Saturation 96% 07/11/2024 10:32 AM WATER USE INSPECTOR Inhaled Oxygen Concentration - - Weight 96.2 kg (212 lb 3.1 oz) 07/11/2024 10:32 AM WATER USE INSPECTOR Height 163 cm (5' 4.17) 07/11/2024 10:32 AM WATER USE INSPECTOR Body Mass Index 36.23 07/11/2024 10:32 AM WATER USE INSPECTOR documented in this encounter Progress Notes * Prudence Mena MPAS, P.A.-C. - 07/11/2024 10:40 AM CST SUBJECTIVE CHIEF COMPLAINT/REASON FOR VISIT Chief Complaint Patient presents with Post Ed Visit Follow-up [facility] follow up- would like a HGB done also per nurse HISTORY OF PRESENT ILLNESS Melinda Kumar is a pleasant 39 y.o. female who presents to the clinic today for post hospital follow-up. She was admitted to [facility] 06/30/2024 and discharged 07/04/2024 with a principal diagnosis of sepsis suspected to be due to left lower lobe pneumonia. She required oxygen supp lementation during her hospitalization. She received IV antibiotics and IV steroids during her hospitalization. She was discharged on doxycycline for 5 days as well as Mucinex and benzonatate. She had a positive fecal occult blood test during her hospitalization suspected to be the result of scheduled ibuprofen. She was advised to avoid NSAIDs at time of discharge and the recheck hemoglobin levelat post hospital follow-up. Hemoglobin level was 10.9 at hospital discharge. Prior to hospitalization, she was seen at [place] [facility] 06/26/2024 and prescribed azithromycin and prednisone for walking pneumonia. Symptoms did not improve with lead to most recent hospital admission. Two weeks prior to ED visit, she was positive for influenza A. Overall, she is not feeling improved since hospital discharge and believes she actually may feel worse. She only has 1 tablet of doxycycline left. She is alternating DuoNebs and albuterol every 2 hours. She is taking scheduled Mucinex. She has not found Tessalon helpful. She is not having a cough. Her main symptom today is continued shortness a breath atrest and with activity. She also has pain left side of ribcage which she attributes to fluid in left lung. Pain is worse with deep breathing. She has very shallow breathing but has been using Aerobika and spirometry directed. She is quite a bit of pain and shortness a breath when she lies down at night specifically on her left side. She is needing to prop herself up with several pillows to sleep.She denies fever since hospital discharge. She also notes low potassium level during hospitalization and would like this rechecked today. In follow-up to blood in stool, she has not noticed any dark s tools since hospital discharge as she was noticing in the hospital. She has been tobacco free for the past 2 weeks. The following portions of the patient's history were reviewed and updated as appropriate: current medications and problem list. 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 Blood products may be delayed. Draw patient 24 hours prior to transfusion. Draw one red top and two purple top tubes for all type and screen orders. CURRENT MEDICATIONS Current Outpatient Medications: acetaminophen (TYLENOL) 500 mg tablet, Take 1,000 mg by mouth as needed., Disp: , Rfl: albuterol 2.5 mg /3 mL nebulizer solution, Inhale 3 mL (2.5 mg total) by nebulization every 4 (four) hours as needed for wheezing or shortness of breath., Disp: 75 mL, Rfl: 2 buPROPion XL (WELLBUTRIN XL) 150 mg 24 hr tablet, Take 1 tablet (150 mg total) by mouth every morning. Take with 300 mg tablet for a total daily dose of 450 mg., Disp: 90 tablet, Rfl: 2 buPROPion XL (WELLBUTRIN XL) 300 mg 24 hr tablet, Take 1 tablet (300 mg total) by mouth every morning. Take with 150 mg tablet for a total daily dose of 450 mg daily., Disp: 90 tablet, Rfl: 2 cholecalciferol (VITAMIN D3) 50 mcg (2,000 Unit) capsule, Take 50 mcg by mouth daily., Disp: , Rfl: dextroamphetamine sulfate (Dexedrine Spansule) 15 mg ER capsule, Take 1 capsule by mouth daily., Disp: , Rfl: dextroamphetamine-amphetamine (ADDERALL) 10 mg tablet, Take 1 tablet by mouth between 12pm and 2pm daily*, Disp: , Rfl: DME CPAP, DME Order (Patient taking differently: DME Order Patient stated she needs to picker feeder), Disp: 1 each, Rfl: 0 DULoxetine (CYMBALTA) [address] capsule, TAKE ONE CAPSULE BY MOUTH ONE TIME DAILY*, Disp: , Rfl: elagolix (Orilissa) 150 mg tablet tablet, Take 1 tablet (150 mg total) by mouth daily., Disp: 30 tablet, Rfl: 11 estradioL (ESTRACE) 0.1 mg/g (0.01%) vaginal cream, Insert 1 g into the vagina 3 (three) times a week. Nightly for first week., Disp: 42 g, Rfl: 3 fluticasone propion-salmeteroL (Advair HFA) 115-21 mcg/actuation inhaler, Inhale 2 puffs 2 (two) times a day., Disp: 12 g, Rfl: 3 fluticasone propionate (Flonase) 50 mcg/actuation nasal spray, Administer 2 sprays into each nostril daily for 10 days., Disp: 16 g, Rfl: 0 fluticasone propionate (FLOVENT DISKUS) 100 mcg/actuation diskus inhaler, , Disp: , Rfl: ipratropium-albuteroL (DuoNeb) 0.5-2.5 mg/3 mL nebulizer solution, Inhale 3 mL by nebulization 4 (four) times a day as needed for shortness of breath., Disp: 180 mL, Rfl: 3 lisinopriL 10 mg tablet, Take 1 tablet (10 mg total) by mouth daily., Disp: 90 tablet, Rfl: 3 LORazepam (Ativan) 0.5 mg tablet, Take 0.5 mg by mouth., Disp: , Rfl: multivitamin capsule, Take 1 capsule by mouth daily., Disp: , Rfl: nitrofurantoin (MACRODANTIN) 50 mg capsule, TAKE ONE CAPSULE BY MOUTH ONE TIME DAILY, Disp: 90 capsule, Rfl: 3 polyethylene glycol (MIRALAX) 17 gram/dose oral powder, Take 17 g by mouth daily. Dissolve each 17 g dose in 240 mL (8 ounces) of beverage., Disp: 850 g, Rfl: 3 pregabalin (Lyrica) 200 mg capsule, Take 1 capsule (200 mg total) by mouth 3 (three) times a day., Disp: 90 capsule, Rfl: 3 traZODone (DESYREL) 50 mg tablet, TAKE 1-4 TABLETS BY MOUTH ONCE DAILY AT BEDTIME., Disp: , Rfl: Ventolin HFA 90 mcg/actuation inhaler, INHALE 2 PUFFS EVERY 4 HOURS NEEDED FOR WHEEZING OR SHORTNESS OF BREATH., Disp: 54 g, Rfl: 3 Vraylar 4.5 mg capsule, TAKE ONE CAPSULE BY MOUTH ONE TIME DAILY*, Disp: , Rfl: lidocaine (Lidoderm) 5 % adhesive patch,medicated, Place 1 patch on the skin daily. Apply to painful area 12 hours per day, remove for 12 hours., Disp: 10 patch, Rfl: 0 OBJECTIVE VITAL SIGNS Vitals: 07/11/24 1100 BP: 106/72 Pulse: 85 Resp: Temp: SpO2: PHYSICAL EXAMINATION General: Well-nourished, well-developed 39 y.o. Awake, alert, age appropriate. Shallow breathing. Cardiovascular: Regular rate and rhythm. Tachycardia. Lungs: Diminished breath sounds left lower lung base. Neurologic: Alert and oriented x3. ASSESSMENT / PLAN IMPRESSION/REPORT/PLAN: #1 Pneumonia Left Lower Lobe #2 Effusion Pleural I reviewed discharge summary from [facility]. Her condition has not improved since discharge and she says she really did not feel improved even at hospital discharge after her hospital stay.Reviewed CTA completed during hospitalization with evidence of left lower lobe pneumonia and small left pleural effusion. Pulmonary exam today supports ongoing effusion and/or consolidation left lower lobe. CTA Negative for PE. She was initially tachycardic when she arrived at clinic today but heart rate has normalized. Oxygen saturation is 96%. Afebrile. We will update a chest x-ray and CBC today. - DX Chest AP or PA and Lateral 2 Views; Future; Expected date: 07/11/2024 - CBC with Differential, Blood; Future; Expected date: 07/11/2024 - Basic Metabolic Panel; Future; Expected date: 07/11/2024 #3 Left Pain Rib She describes generalized pain over left rib cage associated with above diagnosis. She is requesting prescription for lidocaine patches. I have sent these to her pharmacy in hopes that they are covered. #4 Hypokalemia She experienced hypokalemia during hospitalization requiring potassium supplement. She was not discharged on potassium supplement. We will recheck this level today #5 Blood In Stool Positive fecal occult blood test during hospitalization suspected to be due to NSAIDs. We will check a hemoglobin level today. She has been abstaining from NSAIDs. We will plan to repeat a stool testin 1 month. - HemoQuant, Feces; Future; Expected date: 08/11/2024 Other orders - lidocaine (Lidoderm) 5 % adhesive patch,medicated; Place 1 patch on the skin daily. Apply to painful area 12 hours per day, remove for 12 hours., Starting Gloria 07/11/2024, Normal If symptoms worsen or do not improve, patient is instructed to seek further medical attention. All questions have been answered. Patient demonstrated understanding and verbalized agreement with the plan. Total time spent: 40 minutes YOUSUF Pathak, P.A.-C. R USE INSPECTOR documented in this encounter Plan of Treatment Upcoming Encounters Date Type Department Care Team (Late st Contact Info) Description 07/18/2024 1:00 PM WATER USE INSPECTOR Appointment Department of Radiology in [place], [place] [address] [facility] [place] [phone] Prudence Mena MPAS, P.A.-C. [address] [facility] [place] [phone] Discharge Disposition: Home or Self Care Scheduled Orders Name Type Priority Associated Diagnoses Orde r Schedule HemoQuant, Feces Lab Routine Blood In Stool Expected: 08/11/2024, Expires: 10/09/2025 documented as of this encounter Results * DX Chest AP or PA and Lateral 2 Views (07/11/2024 11:26 AM WATER USE INSPECTOR) Anatomical Region Laterality Modality Chest, Thoracic RST LOS, Tho racic ARZ LOS, Thoracic FLA LOS N/A Digital Radiography Impressions 07/11/2024 11:59 AM WATER USE INSPECTOR No direct comparison available at time of [...] within normal limits. Narrative 07/11/2024 11:59 AM WATER USE INSPECTOR EXAM: DX CHEST AP OR PA AND [...] Partially visualized upper abdomen is within normallimits. Prudence TO, P.A.-C. IMG DIAGNOSTIC IM AGING PROCEDURES Final Result * (ABNORMAL) Basic Metabolic Panel (07/11/2024 11:17 AM WATER USE INSPECTOR) Potassium, P 3.6 3.6 - 5.2 mmol/L 07/11/2024 1:43 PM WATER USE INSPECTOR OWAT Sodium, P 141 135 - 145 mmol/L 07/11/2024 1:43 PM WATER USE INSPECTOR OWAT Chloride, P 104 98 - 107 mmol/L 07/11/2024 1:43 PM WATER USE INSPECTOR OWAT Bicarbonate, P 27 22 - 29 mmol/L 07/11/2024 1:43 PM WATER USE INSPECTOR OWAT Anion Gap, P 10 7 - 15 07/11/2024 1:43 PM WATER USE INSPECTOR OWAT BUN (Blood Urea Nitrogen), P 18 6 - 21 mg/dL 07/11/2024 1:43 PM WATER USE INSPECTOR OWAT Creatinine 0.53(L) 0.59 - 1.04 mg/dL 07/11/2024 1:43 PM WATER USE INSPECTOR OWAT Estimated GFR (eGFR) >90 >=60 mL/min/BSA 07/11/2024 1:43 PM WATER USE INSPECTOR OWAT Comment: Estimated GFR calculated using the 2020 CKD_EPI creatinine equation. Calcium, Total, P 9.0 8.6 - 10.0 mg/dL 07/11/2024 1:43 PM WATER USE INSPECTOR OWAT Glucose, P 126 70 - 140 mg/dL 07/11/2024 1:43 PM WATER USE INSPECTOR OWAT Blood (Blood, Venous) 07/11/2024 11:17 AM WATER USE INSPECTOR 07/11/2024 12:57 PM WATER USE INSPECTOR Prudence TO, P.A.-C. LAB BLOOD ADD-ON Final Result [facility] [address] [place] [address], [place] OWAT [facility] [place] [address] [place] [address] * (ABNORMAL) CBC with Differential, Blood (07/11/2024 11:17 AM WATER USE INSPECTOR) Hemoglobin 10.0(L) 11.6 - 15.0 g/dL 07/11/2024 11:25 AM WATER USE INSPECTOR FB60 Hematocrit 30.7(L) 35.5 - 44.9 % 07/11/2024 11:25 AM WATER USE INSPECTOR FB60 Erythrocytes 3.39(L) 3.92 - 5.13 x10(12)/L 07/11/2024 11:25 AM WATER USE INSPECTOR FB60 MCV 90.6 78.2 - 97.9 fL 07/11/2024 11:25 AM WATER USE INSPECTOR FB60 RBC Distrib Width 14.9 12.2 - 16.1 % 07/11/2024 11:25 AM WATER USE INSPECTOR FB60 Platelet Count 678(H) 157 - 371 x10(9)/L 07/11/2024 11:25 AM WATER USE INSPECTOR FB60 Leukocytes 14.7(H) 3.4 - 9.6 x10(9)/L 07/11/2024 11:25 AM WATER USE INSPECTOR FB60 Neutrophils 11.68(H) 1.56 - 6.45 x10(9)/L 07/11/2024 11:25 AM WATER USE INSPECTOR FB60 Lymphocytes 1.65 0.95 - 3.07 x10(9)/L 07/11/2024 11:25 AM WATER USE INSPECTOR FB60 Monocytes 1.28(H) 0.26 - 0.81 x10(9)/L 07/11/2024 11:25 AM WATER USE INSPECTOR FB60 Eosinophils 0.06 0.03 - 0.48 x10(9)/L 07/11/2024 11:25 AM WATER USE INSPECTOR FB60 Basophils <0.04 0.01 - 0.08 x10(9)/L 07/11/2024 11:25 AM WATER USE INSPECTOR FB60 Blood (Blood, Venous) 07/11/2024 11:17 AM WATER USE INSPECTOR 07/11/2024 11:17 AM WATER USE INSPECTOR us Prudence Mena MPAS, P.A.-C. LAB BLOOD ADD-ON Final Result [facility] [address] [place] [address], [facility] [place] [address] [facility] [place] [address] [place] [address] documented in this encounter Visit Diagnoses Diagnosis Hypokalemia- Primary Pneumonia Effusion Pleural Blood In Stool Pneumonia documented in this encounter Additional Health Concerns Assessment Noted Time PHQ-9 Depression Total Score: 22 025 7:19 PM WATER USE INSPECTOR documented as of this encounter Care Teams Demolition Hammer Operator Relationship Specialty Start Date End Date Prudence Mena MPAS, P.A.-C. [address] [facility] [phone] PCP - General Internal Medicine 02/08/24 documented as of this encounter
--- OUTSIDE RECORDS SUMMARY | 2024-07-12 22:40 | XMS_ITS | Encounter Summary ---
Author Organization [facility] Address [address] [place] [address] Care Team Providers Care Piece Worker Name Role Phone Prudence Mena P.A.-C. Primary Care Pro vider Reason for Visit * Reason Onset Date Comments Cough 06/11/2024 Encounter Details Date Type Department Care Team (Late st Contact Info) Description 06/11/2024 Nurse Triage Department of Community Internal Medicine in [place], [place] [address] [place] [phone] Eduardo Ding RDmitryNDmitry Cough Social History Tobacco Use Types Packs/Day Years Used Date Smoking Tobacco: Every Day Cigarettes 1.5 25 Started: 1999 Smokeless Tobacco: Never Alcohol Use Standard Drinks/Week Comments Yes 0 (1 standard drink = 0.6 oz pur e alcohol) socially [facility] Utilities Answer Date Recorded In the past 12 months has [facility] [employer], gas, oil, or water [employer] threatened to shut off services in your [...] Never 07/27/2022 How often do you attend mu-ism or judaism serv ices? Never 07/27/2022 Do you belong to any clubs o r organizations such as mu-ism groups, unions, fraternal or athletic groups, or [...] 07/27/2022 PHQ-2 Answer Date Recorded PHQ-2 Score 5 04/03/2024 [facility] Occupat ional [facility] - Occupational Stress Questionnaire Answer Date Recorded [...] Recor ded PHQ-9 Total Score (max 27) 17 04/03 Nutrition Answer Date Recorded On average, how [...] encounter Miscellaneous Notes * Telephone Encounter - Eduardo Ding, R.N. - 06/11/2024 9:16 AM CST Chief Complaint / Reason for Call Patient is a 39 y.o. female calling regarding Cough. Assessment Concern: Cough, congestion, runny nose, headaches. Sore throat. Present for: 1.5 - 2 weeks. Home cares tried: inhaler. Dayquil, cough drops. Calling to request: an appointment The recommended disposition is See a health care provider within 3 days. Patient was warm transferred toMelinda Patient Appointment Site Foreman at the clinic forfurther assistance. Reason for Disposition [1] Nasal discharge AND [2] present > 10 days Protocols used: Cough - Acute Gxt-Aaprlfruha-Nkqyw- Care Advice Patient/Caregiver understands and will follow care advice?: Yes, able to teach back Cough - Acute Net-Vtqedsivgx-Ikgzz- Nurse Eduardo Warner Jun 11, 2024 09:19 AM Care Advice COUGH SYRUP WITH DEXTROMETHORPHAN: * Cough syrups containing the cough suppressant dextromethorphan may help decrease your cough. * Cough syrup works best for coughs that keep you awake at night. It can also sometimes help in thelate stages of a lung or airway infection when the cough is dry and hacking. Cough syrup can be used along with cough drops. * Examples: Delsym 12-hour Cough, Robitussin Cough Long-Acting, Triaminic Long- Acting, Vicks DayQuil Cough. NASAL WASHES FOR A STUFFY NOSE: * Introduction: Saline (salt water) nasal irrigation (nasal wash) is an effective and simple home remedy for treating stuffy nose and sinus congestion. The nose can be irrigated by pouring, spraying,or squirting salt water into the nose and then letting it run back out. * How it Helps: The salt water rinses out excess mucus and washes out any irritants (dust, allergens) that might be present. It also moistens the nasal cavity. * Methods: There are several ways to irrigate the nose. You can use a saline nasal spray bottle (available hkga-ptq-obdvqae), a rubber ear syringe, a medical syringe without the needle, or a NETI POT. SEE PCP WITHIN 3 DAYS: * You need to be seen within 2 or 3 days. NASAL DECONGESTANTS FOR A VERY STUFFY NOSE: * MOST PEOPLE DO NOT NEED TO USE THESE MEDICINES. * If your nose feels blocked, you should try using nasal washes first. * If you have a very stuffy nose, nasal decongestant medicines can shrink the swollen nasal mucosa and allow for easier breathing. If you have a very runny nose, these medicines can reduce the amountof drainage. They may be taken as pills by mouth or as a nasal spray. * Pseudoephedrine (Sudafed): Available oudh-uzz-nnbejtw in pill form. Typical adult dosage is two 30 mg tablets every 6 hours. * Oxymetazoline Nasal Drops (Afrin in [place]; Drixoral in [place]): Available rnfm-ide-mnpypad. Clean out the nose before using. Benham each nostril once, wait one minute for absorption, and then spray a second time. * Phenylephrine Nasal Drops (Siddharth-Synephrine): Available fcfw-jss-xxffldn. Clean out the nose beforeusing. Benham each nostril once, wait one minute for absorption, and then spray a second time. NASAL DECONGESTANTS - EXTRA NOTES AND WARNINGS: * Do not use these medicines if you have high blood pressure, heart disease, prostate problems, or an overactive thyroid. * Do not use these medicines if you are . * Do not use these medicines if you have used a MAO inhibitor such as isocarboxazid (Marplan), phenelzine (Nardil), rasagiline (Azilect), selegiline (Eldepryl, Emsam), or tranylcypromine (Parnate) inthe past 2 weeks. Life- threatening side effects can occur. * Do not use these medicines for more than 3 days. Reason: Rebound nasal congestion when you stop taking them. * Before using any medicine, read all the instructions on the package. COUGH SYRUP WITH DEXTROMETHORPHAN - EXTRA NOTES AND WARNINGS: * Do not try to completely stop coughs that produce mucus and phlegm. * Coughing is helpful. It brings up the mucus from the lungs and helps prevent pneumonia. * RESEARCH: Some research studies show that dextromethorphan reduces the frequency and severity of cough in those 18 years and older without significant adverse effects. Other studies suggest that dextromethorphan is no better than placebo at reducing a cough. * DRUG ABUSE: It should be noted that dextromethorphan has become a drug of abuse. This problem is seen most often in teenagers. Overdose symptoms can range from giggling and feeling high to hallucinations and coma. * WARNING: Do not take dextromethorphan if you are taking a monoamine oxidase (MAO) inhibitor now or in the past 2 weeks. Examples of MAO inhibitors include isocarboxazid (Marplan), phenelzine (Nardil), selegiline (Eldepryl, Emsam, Zelapar), and tranylcypromine (Parnate). * WARNING: Do not take dextromethorphan if you are taking venlafaxine (Effexor). * Before taking any medicine, read all the instructions on the package. COUGH MEDICINES: * COUGH DROPS: Ozal-llx-qswqvgg cough drops can help a lot, especially for mild coughs. They soothean irritated throat and remove the tickle sensation in the back of the throat. Cough drops are easyto carry with you. * COUGH SYRUP WITH DEXTROMETHORPHAN: An pvba-zat-gbgxaax cough syrup can help your cough. The most common cough suppressant in tmcy-gjz-ugjmdri cough medicines is dextromethorphan. * HOME REMEDY - HARD CANDY: Hard candy works just as well as ijss-dzd-xmndybn cough drops. People who have diabetes should use sugar-free candy. * HOME REMEDY - HONEY: This old home remedy has been shown to help decrease coughing at night. The adult dosage is 2 teaspoons (10 ml) at bedtime. CALL BACK IF: * Fever over 103 F (39.4 C) * Difficulty breathing occurs * You become worse OGRAPHIC RETOUCHER APPRENTICE documented in this encounter Plan of Treatment Upcoming Encounters Date Type Department Care Team (Late st Contact Info) Description 07/18/2024 1:00 PM LITHOGRAPHIC RETOUCHER APPRENTICE Appointment Department of Radiology in [place] [address] [place] [address] Prudence Mena MPAS, P.A.-C. [address] [place] [address] Discharge Disposition: Home or Self Care documented as of this encounter Visit Diagnoses Not on filedocumented in this encounter Additional Health Concerns Assessment Noted Time PHQ-9 Depression Total Score: 17 024 9:38 AM CDT documented as of this encounter Care Teams Piece Worker Relationship Specialty Start Date End Date Prudence Mena MPAS, P.A.-C. [address] [place] [address] PCP - General Internal Medicine 02/08/24 documented as of this encounter
--- OUTSIDE RECORDS SUMMARY | 2024-07-12 22:40 | XMS_ITS | Encounter Summary ---
Author Organization [facility] Address [address] [place] [address] Care Team Providers Care Director Of Volunteer Services Name Role Phone Prudence Mena P.A.-C. Primary Care Pro vider Reason for Referral * Outpatient (Routine) - Closed Specialty Diagnoses / Procedures Referred By Talia galeas Referred To Contact Diagnoses Pneumonia Procedures DX Chest AP or PA and Lateral 2 Views Prudence Mena MPAS, P.A.-C. [address] [place] [address] Phone: tel: [facility] Referral ID Status Reason Start Date Expiration Date Visits Re quested Visits Authorized [id number] Closed 07/11/2024 07/11/2025 1 1 ASSISTANT Reason for Visit * Outpatient (Routine) - Closed Specialty Diagnoses / Procedures Referred By Contac t Referred To Contact Diagnoses Pneumonia Procedures DX Chest AP or PA and Lateral 2 Views Prudence Mena MPAS, P.A.-C. [address] [place] [address] Phone: tel: fax: [facility] Region Referral ID Status Reason Start Date Expiration Date Visits Re quested Visits Authorized [id number] Closed 07/11/2024 07/11/2025 1 1 Encounter Details Date Type Department Care Team (Latest Contact Info) Description 07/11/2024 11:17 AM VET ASSISTANT - 07/11/2024 11:59 PM VET ASSISTANT Hospital Encounter Department of Radiology in [place], [place] [address] [facility] [place] [phone] Prudence Mena MPAS, P.A.-C. [address] [facility] [place] [address] Pneumonia Discharge Disposition: Home or Self Care Social History Tobacco Use Types Packs/Day Years Used Date Smoking Tobacco: Former Cigarettes 1.5 0.1 S tarted: 06/21/2024 Passive Smoke Exposure: Past Smokeless Tobacco: Never Alcohol Use Standard Drinks/Week Comments Yes 0 (1 standard drink = 0.6 oz pur e alcohol) socially [facility] Utilities Answer Date Recorded In the past 12 months has e electric, gas, oil, or water [employer] threatened to shut off services in your [...] Never 07/27/2022 How often do you attend voodoo or spiritism serv ices? Never 07/27/2022 Do you belong to any clubs o r organizations such as voodoo groups, unions, fraternal or athletic groups, or [...] Answer Date Recorded PHQ-2 Score 6 07/10/2024 [facility] of Occupat ional Health - Occupational Stress [...] day. 12 g 3 10/26/2022 fluticasone propionate (FLOVENT DISKUS) 100 mcg/actuation diskus inhaler 06/29/2018 ipratropium-albu teroL (DuoNeb) 0.5-2.5 mg/3 mL nebulizer solution Inhale 3 mL by nebulization 4 (four) times a day as needed for shortness of breath. 180 mL 3 06/11/2024 levoFLOXacin (Levaquin) 750 mg tabletIndication s:Pneumonia Take 1 tablet (750 mg total) by mouth daily before morning meal. 7 tablet 07/11/2024 lidocaine (Lidoderm) 5 % adhesive patch,medicated Place [...] DAILY* 10/11/2022 documented as of this encounter Miscellaneous Notes * Result Encounter Note - Prudence Mena MPAS, P.A.-C. - 07/11/2024 3:29 PM CST Please call the patient. 1. Chest x-ray [...] her back in clinic in 1 week. ASSISTANT documented in this encounter Plan of Treatment Upcoming Encounters Date Type Department Care Team (Late st Contact Info) Description 07/18/2024 1:00 PM VET ASSISTANT Appointment Department of Radiology in [place], [place] [address] [facility] [place] [phone] Prudence Mena MPAS, P.A.-C. [address] [place] [address] [place] [phone] Discharge Disposition: Home or Self Care documented as of this encounter Procedures Procedure Name Priority Date/Time Associated Diagnosis Comments DX CHEST AP OR PA AND LATERAL 2 VIEWS RAD - Routine (most inpatients and all outpatients) 07/11/2024 11:26 AM VET ASSISTANT Pneumonia documented in this encounter Results * DX Chest AP or PA and Lateral 2 Views (07/11/2024 11:26 AM VET ASSISTANT) Anatomical Region Laterality Modality Chest, Thoracic RST LOS, Tho racic ARZ LOS, Thoracic FLA LOS N/A Digital Radiography Impressions 07/11/2024 11:59 AM VET ASSISTANT No direct comparison available at time of [...] within normal limits. Narrative 07/11/2024 11:59 AM VET ASSISTANT EXAM: DX CHEST AP OR PA AND [...] IMG DIAGNOSTIC IM AGING PROCEDURES Final Result documented in this encounter Visit Diagnoses Diagnosis Pneumonia documented in this encounter Additional Health Concerns Assessment Noted Time PHQ-9 Depression Total Score: 22 025 7:19 PM VET ASSISTANT documented as of this encounter Care Teams Director Of Volunteer Services Relationship Specialty Start Date End Date Prudence Mena MPAS, P.A.-C. [address] [place], [place] [address] [phone] PCP - General Internal Medicine 02/08/24 documented as of this encounter
--- OUTSIDE RECORDS SUMMARY | 2024-07-12 22:40 | XMS_ITS | Encounter Summary ---
Author Organization [facility] Address [address] [place] [address] Care Team Providers Care Microchip Specialist Name Role Phone Prudence Mena P.A.-C. Primary Care Pro vider Reason for Visit * Reason Comments Cough Dry, congestion x 2 weeks, sob * Appointment Request (Routine) - Closed Specialty Diagnoses / Procedures Referred By Talia galeas Referred To Contact [facility] Referral ID Status Reason Start Date Expiration Date Visits Re quested Visits Authorized [id number] Closed 06/11/2024 06/11/2025 1 1 Encounter Details Date Type Department Care Team (Late st Contact Info) Description 06/11/2024 3:30 PM SUPERVISOR PRODUCT INSPECTION Office Visit Department of Family Medicine, [facility], in [address] [phone] JacksonKaley Vega APRN, C.N.P., D.N.P. [address] [phone] Infection Upper Respiratory (Primary Dx) Social History Tobacco Use Types Packs/Day Years Used Date Smoking Tobacco: Every Day Cigarettes 1.5 25 Started: 1999 Smokeless Tobacco: Never Tobacco Cessation:Ready to Q uit: Not Asked; Counseling Given: Not Answered Alcohol Use Standard Drinks/Week Comments Yes 0 (1 standard drink = 0.6 oz pur e alcohol) socially [facility] Utilities Answer Date Recorded In the past 12 months has [employer], gas, oil, or water [employer] threatened to shut off services in your [...] Never 07/27/2022 How often do you attend mormonism or restoration serv ices? Never 07/27/2022 Do you belong to any clubs o r organizations such as mormonism groups, unions, fraternal or athletic groups, or [...] Answer Date Recorded PHQ-2 Score 5 04/03/2024 [facility] of Occupat ional Health - Occupational Stress [...] Sign Reading Time Taken Comments Blood Pressure 133/87 06/11/2024 3:16 PM SUPERVISOR PRODUCT INSPECTION Pulse 106 06/11/2024 3:16 PM SUPERVISOR PRODUCT INSPECTION Temperature 36.1 C (97 F) 06/11/2024 3:16 PM SUPERVISOR PRODUCT INSPECTION Respiratory Rate 16 06/11/2024 3:16 PM SUPERVISOR PRODUCT INSPECTION Oxygen Saturation 96% 06/11/2024 3:16 PM SUPERVISOR PRODUCT INSPECTION Inhaled Oxygen Concentration - - Weight 100 kg (220 lb 12.7 oz) 06/11/2024 3:16 P M SUPERVISOR PRODUCT INSPECTION Height - - Body Mass Index 37.69 03/21/2024 11:05 AM CDT documented in this encounter Progress Notes * Jackson-Kaley Vega APRN, C.N.P., D.N.P. - 06/11/2024 3:30 PM SUPERVISOR PRODUCT INSPECTION SUBJECTIVE CHIEF COMPLAINT / REASON FOR VISIT Melinda Kumar is a 39 y.o. female who presents for evaluation of Cough (Dry, congestion x 2 weeks, sob). HISTORY OF PRESENT ILLNESS Melinda Kumar Is a 39-year-old female who presents with a chief complain of cough and congestion for the past 2 weeks. The cough is affecting her sleep and daily activities. She is also reporting shortness of breath with cough. She denies experiencing any fever or chills. She reports having a CPAP machine but is not currently using it. She smoked 1.5-2 packs of cigarettes daily. She has a nebulizer and albuterol inhalers that she does not use. She apparently does have a history of Moderate persistent asthma not listed on problem list, however patient states she is unsure if this is thecase. She states she has been taking DayQuil what was told this could be causing an elevation in her blood pressure. OBJECTIVE Vitals: 06/11/24 1516 BP: 133/87 BP Location: Right arm Patient Position: Sitting Cuff Size: Large Pulse: 106 Resp: 16 Temp: 36.1 ??C TempSrc: Temporal SpO2: 96% Weight: 100 kg Body mass index is 37.69 kg/m??. PHYSICAL EXAMINATION Physical Exam ASSESSMENT / PLAN #1 Infection upper respiratory Clinical decision-making: Patient presents with a 2 week history of cough, congestion and cough interfering with sleep and daily activities. She continues to smoke 1.5-2 packs of cigarette daily. Sheis currently unemployed, states she is on disability. No fever or chills reported. Lung sounds slightly coarse right middle lobe, oxygen saturation 96% on room air, given the duration of symptoms andclinical presentation we will go ahead and send Z-Jenaro, DuoNeb, Flonase, Tessalon to pharmacy. Recommend Robitussin, tsp of honey 3-4 times daily, nasal saline rinse, Tylenol ibuprofen as needed. Follow up if symptoms persist after completion of antibiotic course may consider oral steroids if no improvement in the next week. Heavy tobacco use is contributing to respiratory symptoms and recommend cessation. All questions answered and patient voiced understanding and agreed with the plan. Kaley Jones APRN, C.N.P., D.N.P. RVISOR PRODUCT INSPECTION documented in this encounter Plan of Treatment Upcoming Encounters Date Type Department Care Team (Late st Contact Info) Description 07/18/2024 1:00 PM SUPERVISOR PRODUCT INSPECTION Appointment Department of Radiology in [place], [place] [address] [place] [address] Prudence Mena MPAS, P.A.-C. [address] [place] [phone] Discharge Disposition: Home or Self Care documented as of this encounter Visit Diagnoses Diagnosis Infection Upper Respiratory- Primary documented in this encounter Additional Health Concerns Assessment Noted Time PHQ-9 Depression Total Score: 17 024 9:38 AM CDT documented as of this encounter Care Teams Microchip Specialist Relationship Specialty Start Date End Date Prudence Mena MPAS, P.A.-C. [address] [facility] [place] [phone] PCP - General Internal Medicine 02/08/24 documented as of this encounter
--- OUTSIDE RECORDS SUMMARY | 2024-07-12 22:40 | XMS_ITS | Encounter Summary ---
Author Organization [facility] Address [address] [place] [address] Care Team Providers Care Student Life Coordinator Name Role Phone Prudence Mena P.A.-CDmitry Primary Care Pro vider Encounter Details Date Type Department Care Team (Latest Contact Info) Description 07/11/2024 11:08 AM TRAILER SECTIONS ASSEMBLER - 07/11/2024 11:[address] [facility] Hospital Encounter Department of Laboratory Medicine in [place], [place] [address] [place] [phone] Prudence Mena MPAS PDmitryA.-CDmitry [address] [place] [phone] Pneumonia Discharge Disposition: Home or Self Care Social History Tobacco Use Types Packs/Day Years Used Date Smoking Tobacco: Former Cigarettes 1.5 0.1 S tarted: 06/21/2024 Passive Smoke Exposure: Past Smokeless Tobacco: Never Alcohol Use Standard Drinks/Week Comments Yes 0 (1 standard drink = 0.6 oz pur e alcohol) socially [facility] Utilities Answer Date Recorded In the past 12 months has e electric, gas, oil, or water [employer] threatened to shut off services in your [...] Never 07/27/2022 How often do you attend buddhist or oriental orthodox serv ices? Never 07/27/2022 Do you belong to any clubs o r organizations such as buddhist groups, unions, fraternal or athletic groups, or [...] Answer Date Recorded PHQ-2 Score 6 07/10/2024 [facility] [place] [facility] of Occupat ional Health - Occupational Stress [...] st Contact Info) Description 07/18/2024 1:00 PM TRAILER SECTIONS ASSEMBLER Appointment Department of Radiology in [place] [address] [place] [address] Prudence Mena MPAS, P.A.-C. [address] [facility] [phone] Discharge Disposition: Home or Self Care documented as of this encounter Procedures Procedure Name Priority Date/Time Associated Diagnosis Comments CBC WITH DIFFERENTIAL, B Routine 07/11/2024 11:17 AM TRAILER SECTIONS ASSEMBLER Pneumonia BASIC METABOLIC PANEL, S/P Routine 07/11/2024 11:17 AM TRAILER SECTIONS ASSEMBLER Pneumonia documented in this encounter Results * (ABNORMAL) Basic Metabolic Panel (07/11/2024 11:17 AM TRAILER SECTIONS ASSEMBLER) Potassium, P 3.6 3.6 - 5.2 mmol/L 07/11/2024 1:43 PM TRAILER SECTIONS ASSEMBLER OWAT Sodium, P 141 135 - 145 mmol/L 07/11/2024 1:43 PM TRAILER SECTIONS ASSEMBLER OWAT Chloride, P 104 98 - 107 mmol/L 07/11/2024 1:43 PM TRAILER SECTIONS ASSEMBLER OWAT Bicarbonate, P 27 22 - 29 mmol/L 07/11/2024 1:43 PM TRAILER SECTIONS ASSEMBLER OWAT Anion Gap, P 10 7 - 15 07/11/2024 1:43 PM TRAILER SECTIONS ASSEMBLER OWAT BUN (Blood Urea Nitrogen), P 18 6 - 21 mg/dL 07/11/2024 1:43 PM TRAILER SECTIONS ASSEMBLER OWAT Creatinine 0.53(L) 0.59 - 1.04 mg/dL 07/11/2024 1:43 PM TRAILER SECTIONS ASSEMBLER OWAT Estimated GFR (eGFR) >90 >=60 mL/min/BSA 07/11/2024 1:43 PM TRAILER SECTIONS ASSEMBLER OWAT Comment: Estimated GFR calculated using the 2020 CKD_EPI creatinine equation. Calcium, Total, P 9.0 8.6 - 10.0 mg/dL 07/11/2024 1:43 PM TRAILER SECTIONS ASSEMBLER OWAT Glucose, P 126 70 - 140 mg/dL 07/11/2024 1:43 PM TRAILER SECTIONS ASSEMBLER OWAT Blood (Blood, Venous) 07/11/2024 11:17 AM TRAILER SECTIONS ASSEMBLER 07/11/2024 12:57 PM TRAILER SECTIONS ASSEMBLER us Prudence TO, P.A.-C. LAB BLOOD ADD-ON Final Result [facility] [address] [place] [address], [place] OWAT [facility] in [place] [address] [place] [address] * (ABNORMAL) CBC with Differential, Blood (07/11/2024 11:17 AM TRAILER SECTIONS ASSEMBLER) Pathologist [facility] Hemoglobin 10.0(L) 11.6 - 15.0 g/dL 07/11/2024 11:25 AM TRAILER SECTIONS ASSEMBLER FB60 Hematocrit 30.7(L) 35.5 - 44.9 % 07/11/2024 11:25 AM TRAILER SECTIONS ASSEMBLER FB60 Erythrocytes 3.39(L) 3.92 - 5.13 x10(12)/L 07/11/2024 11:25 AM TRAILER SECTIONS ASSEMBLER FB60 MCV 90.6 78.2 - 97.9 fL 07/11/2024 11:25 AM TRAILER SECTIONS ASSEMBLER FB60 RBC Distrib Width 14.9 12.2 - 16.1 % 07/11/2024 11:25 AM TRAILER SECTIONS ASSEMBLER FB60 Platelet Count 678(H) 157 - 371 x10(9)/L 07/11/2024 11:25 AM TRAILER SECTIONS ASSEMBLER FB60 Leukocytes 14.7(H) 3.4 - 9.6 x10(9)/L 07/11/2024 11:25 AM TRAILER SECTIONS ASSEMBLER FB60 Neutrophils 11.68(H) 1.56 - 6.45 x10(9)/L 07/11/2024 11:25 AM TRAILER SECTIONS ASSEMBLER FB60 Lymphocytes 1.65 0.95 - 3.07 x10(9)/L 07/11/2024 11:25 AM TRAILER SECTIONS ASSEMBLER FB60 Monocytes 1.28(H) 0.26 - 0.81 x10(9)/L 07/11/2024 11:25 AM TRAILER SECTIONS ASSEMBLER FB60 Eosinophils 0.06 0.03 - 0.48 x10(9)/L 07/11/2024 11:25 AM TRAILER SECTIONS ASSEMBLER FB60 Basophils <0.04 0.01 - 0.08 x10(9)/L 07/11/2024 11:25 AM TRAILER SECTIONS ASSEMBLER FB60 Blood (Blood, Venous) 07/11/2024 11:17 AM TRAILER SECTIONS ASSEMBLER 07/11/2024 11:17 AM TRAILER SECTIONS ASSEMBLER us Prudence TO, P.A.-C. LAB BLOOD ADD-ON Final Result [facility] [address] [place] [address], [place] FB60 [facility] in [place] [address] [facility] [place] [address] documented in this encounter Visit Diagnoses Diagnosis Pneumonia documented in this encounter Additional Health Concerns Assessment Noted Time PHQ-9 Depression Total Score: 22 025 7:19 PM TRAILER SECTIONS ASSEMBLER documented as of this encounter Care Teams Student Life Coordinator Relationship Specialty Start Date End Date Prudence Mena MPAS, P.A.-C. [address] [facility] [place] [phone] PCP - General Internal Medicine 02/08/24 documented as of this encounter
--- OUTSIDE RECORDS SUMMARY | 2024-07-12 22:40 | XMS_ITS | Continuity of Care Document ---
Author Name N[facility]IN User [facility] Address Unknown Organization Unknown Address Unknown Procedures FILTER APPLIED:Only known Procedures with Onset Date within the last 5 years Procedure Date Procedure Provider Additiona l Information Status RESP VIRUS 3-5 TARGETS (20886) Completed EMERGENCY DEPT VISIT MOD MDM (01044) Completed AIRWAY INHALATION TREATMENT (97520) Completed X-RAY EXAM CHEST 2 VIEWS (26155) Completed EMERGENCY DEPT VISIT HI MDM (34287) Completed STREP A DNA AMP PROBE (45549) Completed ELECTROCARDIOGRAM TRACING (79732) Completed MANUAL THERAPY 1/> REGIONS (18445) Completed PT EVAL MOD COMPLEX 30 MIN (43881) Completed THERAPEUTIC EXERCISES (57353) Completed Encounters FILTER APPLIED:Only known Encounters with Admission Date within the last 5 years Encounter Location Admission Discharge Billing Code Heavy Truck Driver Paul ttender Outpatient Jen ee Deanovic Emergency Kamaljit Rubin
--- OUTSIDE RECORDS SUMMARY | 2024-07-12 22:40 | XMS_ITS | Referral Summary ---
Author Organization [facility] Address [address] [place] [address] Care Team Providers Care Horticultural Farm Manager Name Role Phone Prudence Mena P.A.-CDmitry Primary Care Pro vider Source Comments Patient records contain information from all sites at [facility]. For routine questions regarding patient records, call [phone] during business hours, M-F 8:00 AM - 5:00 PM Central Time. Record requests for emergency care only can be directed to [phone] at any time.[facility] Encounters Date Type Department Care Team Description 07/11/2024 Clinical Communication Department of Community Internal Medicine in [address] [phone] Prudence Mena MPAS, P.A.-C. 07/11/2024 Orders Only Department of Community Internal Medicine in [address] [phone] Prudence Mena MPAS PDmitryA.-C. Pneumonia (Primary Dx) 07/11/2024 11:17 AM MINE WIRER - 07/11/2024 11:59 PM MINE WIRER Hospital Encounter Department of Radiology in [address] [phone] Prudence Mena MPAS, P.A.-C. Pneumonia Discharge Disposition: Home or Self Care 07/11/2024 11:07 AM MINE WIRER Hospital Encounter Department of Laboratory Medicine in [address] [phone] Prudence Mena MPAS, P.A.-C. Blood In Stool Discharge Disposition: Home or Self Care 07/11/2024 11:08 AM MINE WIRER - 07/11/2024 11:16 AM MINE WIRER Hospital Encounter Department of Laboratory Medicine in [address] [phone] Prudence Mena MPAS P.A.-C. Pneumonia Discharge Disposition: Home or Self Care 07/11/2024 10:40 AM MINE WIRER Office Visit Department of Community Internal Medicine in [address] [phone] Prudence Mena MPAS, P.A.-C. Hypokalemia (Primary Dx); Pneumonia; Effusion Pleural; Blood In Stool 06/11/2024 3:30 PM MINE WIRER Office Visit Department of Family Medicine, [facility], in [address] [phone] Kaley Jones APRN, C.N.P., D.N.P. Infection Upper Respiratory (Primary Dx) 06/11/2024 Nurse Triage Department of Community Internal Medicine in [address] [phone] Eduardo Ding, R.N. Cough from Last 3 Months Allergies Active Allergy Reactions Criticality Noted Date [...] Take 50 mcg by mouth daily. 09/04/19 23 Active Vraylar 4.5 mg capsule TAKE ONE CAPSULE BY MOUTH ONE TIME DAILY* 10/12/19 23 Active fluticasone propion-salmet [place] (Advair HFA) 115-21 mcg/actuation inhaler Inhale 2 puffs 2 (two) times a day. 12 g 3 10/27/19 23 Active buPROPion XL (WELLBUTRIN XL) 150 mg 24 hr tablet Take 1 tablet (150 mg total) by mouth every morning. Take with 300 mg tablet for a total daily dose of 450 mg. 90 tablet 2 01/24/20 23 Active buPROPion XL (WELLBUTRIN XL) 300 mg 24 hr tablet Take 1 tablet (300 mg total) by mouth every morning. Take with 150 mg tablet for a total daily dose of 450 mg daily. 90 tablet 2 01/24/20 23 Active polyethylene glycol (MIRALAX) 17 gram/dose oral powder Take 17 g by mouth daily. Dissolve each 17 g dose in 240 mL (8 ounces) of beverage. 850 g 3 03/15/20 23 Active elagolix (Orilissa) 150 mg tablet tablet [...] mouth between 12pm and 2pm daily* 11/01/19 24 Active fluticasone propionate (FLOVENT DISKUS) 100 mcg/actuation diskus inhaler 06/29/20 18 Active dextroamphetam ine sulfate (Dexedrine Spansule) 15 mg ER capsule Take 1 capsule by mouth daily. 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 I have reordered her a consult as [...] 12/03/2021 Overview (09/03/2023): Follows with Psychiatry in [place]. Attends therapy in [place]. Attention Deficit With Hyperactivity Disorder Overview (09/03/2023): Follows with Psychiatry in [place]. Attends therapy in [place]. Major Depressive Disorder, Recurrent, Unspecifie d 12/03/2021 Overview (09/03/2023): Follows with Psychiatry in [place]. Attends therapy in [place]. Headache Unspecified 07/03/2019 Fracture Fifth Metacarpal Ba [...] Ureter Initial 11/30/2017 Sleep Disorder 10/30/2017 09/04/2023 Immunizations Name Administration Dates Next Due Influenza, Unspecified 09/04/2023(Deferred: Othe r) Pneumococcal, Unspecified 09/04/2023(Deferred: P arental decision) SARS-COV-2 (COVID-19) - NOVA VAX Fall Seasonal 09/04/2023(Deferred: Patient decision) SARS-COV-2 (COVID-19) - PFIZ ER BIVALENT TS(Discontinued)(12 YEARS OR OLDER) 08/23/2022 Tdap 11/07/2013 influenza trivalent vaccine (6 months and older)(PF) 09/13/2013 Social History Tobacco Use Types Packs/Day Years Used Date Smoking Tobacco: Former Cigarettes 1.5 0.1 S tarted: 06/21/2024 Passive Smoke Exposure: Past Smokeless Tobacco: Never Tobacco Cessation:Counseling Given: Not Answered Alcohol Use Standard Drinks/Week Comments Yes 0 (1 standard drink = 0.6 oz pur e alcohol) socially [facility] Utilities Answer Date Recorded In the past 12 months has e electric, gas, oil, or water company threatened to shut off services in your [...] Never 07/27/2022 How often do you attend hoahaoism or hoahaoism serv ices? Never 07/27/2022 Do you belong to any clubs o r organizations such as hoahaoism groups, unions, fraternal or athletic groups, or [...] Answer Date Recorded PHQ-2 Score 6 07/10/2024 [facility] - Occupational Stress [...] Comments Blood Pressure 106/72 07/11/2024 11:00 AM MINE WIRER Pulse 85 07/11/2024 11:00 AM MINE WIRER Temperature 36 C (96.8 F) 07/11/2024 10:32 AM MINE WIRER Respiratory Rate 30 07/11/2024 10:32 AM MINE WIRER Oxygen Saturation 96% 07/11/2024 10:32 AM MINE WIRER Inhaled Oxygen Concentration - - Weight 96.2 kg (212 lb 3.1 oz) 07/11/2024 10:32 AM MINE WIRER Height 163 cm (5' 4.17) 07/11/2024 10:32 AM MINE WIRER Body Mass Index 36.23 07/11/2024 10:32 AM MINE WIRER Plan of Treatment Upcoming Encounters Date Type Department Care Team (Late st Contact Info) Description 07/18/2024 1:00 PM MINE WIRER Appointment Department of Radiology in [place] [address] [place] [phone] Prudence Mena, LATONIAS, P.A.-C. [address] [place] [phone] Discharge Disposition: Home or Self Care Procedures Procedure Name Priority Date/Time Associated Diagnosis Comments DX CHEST AP OR PA AND LATERAL 2 VIEWS RAD - Routine (most inpatients and all outpatients) 07/11/2024 11:26 AM MINE WIRER Pneumonia BASIC METABOLIC PANEL, S/P Routine 07/11/2024 11:17 AM MINE WIRER Pneumonia CBC WITH DIFFERENTIAL, B Routine 07/11/2024 11:17 AM MINE WIRER Pneumonia HIV-1/-2 AG AND AB SCREEN, PLASMA Routine 08/23/2022 5:13 PM MINE WIRER Screening For Venereal Disease from Last 3 Months or Most Recently Relevant to Health Maintenance Results * DX Chest AP or PA and Lateral 2 Views (07/11/2024 11:26 AM MINE WIRER) Anatomical Region Laterality Modality Chest, Thoracic RST LOS, Tho racic ARZ LOS, Thoracic FLA LOS N/A Digital Radiography Impressions 07/11/2024 11:59 AM MINE WIRER No direct comparison available at time of [...] within normal limits. Narrative 07/11/2024 11:59 AM MINE WIRER EXAM: DX CHEST AP OR PA AND [...] visualized upper abdomen is within normallimits. Prudence Trina TO, P.A.-C. IMG DIAGNOSTIC IM AGING PROCEDURES Final Result * (ABNORMAL) CBC with Differential, Blood (07/11/2024 11:17 AM MINE WIRER) Hemoglobin 10.0(L) 11.6 - 15.0 g/dL 07/11/2024 11:25 AM MINE WIRER FB60 Hematocrit 30.7(L) 35.5 - 44.9 % 07/11/2024 11:25 AM MINE WIRER FB60 Erythrocytes 3.39(L) 3.92 - 5.13 x10(12)/L 07/11/2024 11:25 AM MINE WIRER FB60 MCV 90.6 78.2 - 97.9 fL 07/11/2024 11:25 AM MINE WIRER FB60 RBC Distrib Width 14.9 12.2 - 16.1 % 07/11/2024 11:25 AM MINE WIRER FB60 Platelet Count 678(H) 157 - 371 x10(9)/L 07/11/2024 11:25 AM MINE WIRER FB60 Leukocytes 14.7(H) 3.4 - 9.6 x10(9)/L 07/11/2024 11:25 AM MINE WIRER FB60 Neutrophils 11.68(H) 1.56 - 6.45 x10(9)/L 07/11/2024 11:25 AM MINE WIRER FB60 Lymphocytes 1.65 0.95 - 3.07 x10(9)/L 07/11/2024 11:25 AM MINE WIRER FB60 Monocytes 1.28(H) 0.26 - 0.81 x10(9)/L 07/11/2024 11:25 AM MINE WIRER FB60 Eosinophils 0.06 0.03 - 0.48 x10(9)/L 07/11/2024 11:25 AM MINE WIRER FB60 Basophils <0.04 0.01 - 0.08 x10(9)/L 07/11/2024 11:25 AM MINE WIRER FB60 Blood (Blood, Venous) 07/11/2024 11:17 AM MINE WIRER 07/11/2024 11:17 AM MINE WIRER Prudence TO, P.A.-C. LAB BLOOD ADD-ON Final Result [facility] [address] [place] [address], [facility] FB60 [facility] [place] [address] [place] [address] * (ABNORMAL) Basic Metabolic Panel (07/11/2024 11:17 AM MINE WIRER) Potassium, P 3.6 3.6 - 5.2 mmol/L 07/11/2024 1:43 PM MINE WIRER OWAT Sodium, P 141 135 - 145 mmol/L 07/11/2024 1:43 PM MINE WIRER OWAT Chloride, P 104 98 - 107 mmol/L 07/11/2024 1:43 PM MINE WIRER OWAT Bicarbonate, P 27 22 - 29 mmol/L 07/11/2024 1:43 PM MINE WIRER OWAT Anion Gap, P 10 7 - 15 07/11/2024 1:43 PM MINE WIRER OWAT BUN (Blood Urea Nitrogen), P 18 6 - 21 mg/dL 07/11/2024 1:43 PM MINE WIRER OWAT Creatinine 0.53(L) 0.59 - 1.04 mg/dL 07/11/2024 1:43 PM MINE WIRER OWAT Estimated GFR (eGFR) >90 >=60 mL/min/BSA 07/11/2024 1:43 PM MINE WIRER OWAT Comment: Estimated GFR calculated using the 2020 CKD_EPI creatinine equation. Calcium, Total, P 9.0 8.6 - 10.0 mg/dL 07/11/2024 1:43 PM MINE WIRER OWAT Glucose, P 126 70 - 140 mg/dL 07/11/2024 1:43 PM MINE WIRER OWAT Blood (Blood, Venous) 07/11/2024 11:17 AM MINE WIRER 07/11/2024 12:57 PM MINE WIRER us Prudence TO, P.A.-C. LAB BLOOD ADD-ON Final Result [facility] [address] [place] [phone], [facility] OWAT [facility] [place] [address] [place] [address] * HIV-1/-2 Ag and Ab Screen, Plasma (08/23/2022 5:13 PM MINE WIRER) HIV Ag/Ab Screen, P Negative Negative 08/24/2022 12:12 PM MINE WIRER [facility] Comment: Negative result does not rule out HIV infection. If exposure to HIV infection occurred <14 days ago, contact the laboratory to request addition of HIV-1 RNA detection / quantification test. HIV-1 p24 Ag Screen, P Negative Negative 08/24/2022 12:12 PM MINE WIRER [facility] Comment: Negative result does not rule out HIV infection. If exposure to HIV infection occurred <14 days ago, contact the laboratory to request addition of HIV-1 RNA detection / quantification test. HIV-1 Ab Screen, P Negative Negative 2022 12:12 PM MINE WIRER [facility] Comment: Negative result does not rule out HIV infection. If exposure to HIV infection occurred <14 days ago, contact the laboratory to request addition of HIV-1 RNA detection / quantification test. HIV-2 Ab Screen, P Negative Negative 2022 12:12 PM MINE WIRER [facility] Comment: Negative result does not rule out HIV infection. If exposure to HIV infection occurred <14 days ago, contact the laboratory to request addition of HIV-1 RNA detection / quantification test. Blood (Blood, Venous) 08/23/2022 5:13 PM MINE WIRER 08/24/2022 10:53 AM MINE WIRER Prudence TO, P.A.-C. LAB MICROBIOLOGY - BLOOD ORDERABLES Final Result [facility] [address] [place] [address], [facility] in [place] [address] [place] [address] from Last 3 Months or Most Recently Relevant to Health Maintenance Insurance [facility] [place] [address] Care Teams Horticultural Farm Manager Relationship Specialty Start Date End Date Prudence Mena MPAS, P.A.-C. [address] [place], [place] [address], [place] [phone] PCP - General Internal Medicine 02/08/24
--- OUTSIDE RECORDS SUMMARY | 2024-07-12 22:40 | XMS_ITS | Referral Summary ---
Author Organization [facility] Address [address] [place] [address] Care Team Providers Care Drawer Liner Name Role Phone Claudia Morillo MD Primary Care Provider [phone] Social History Tobacco Use Types Packs/Day Years Used Date Smoking Tobacco: Never Assessed Comments Unknown Sex and Gender Information Value Date Recorded Sex Assigned at Not on file Legal Sex Female 3:28 PM CDT Gender Identity Not on file Sexual Orientation Not on file Plan of Treatment Not on file Care Teams Drawer Liner Relationship Specialty Start Date End Date Claudia Morillo MD [facility] [address] [place] [address] PCP - General 02/06/18
--- OUTSIDE RECORDS SUMMARY | 2024-07-12 22:40 | XMS_ITS | Clinical Summary ---
Author Organization [facility] Address [address] [place] [address] Care Team Providers Care Pulp Cooker Name Role Phone Claudia Morillo MD Primary Care Provider [phone] Social History Tobacco Use Types Packs/Day Years Used Date Smoking Tobacco: Never Assessed Comments Unknown Sex and Gender Information Value Date Recorded Sex Assigned at Not on file Legal Sex Female 3:28 PM CDT Gender Identity Not on file Sexual Orientation Not on file Plan of Treatment Not on file Care Teams Pulp Cooker Relationship Specialty Start Date End Date Claudia Morillo MD [facility] [address] [place] [address] PCP - General 02/06/18
--- OUTSIDE RECORDS SUMMARY | 2024-07-12 22:40 | XMS_ITS | Encounter Summary ---
Author Organization [facility] Address [address] [place] [address] Care Team Providers Care Stonecutter Assistant Name Role Phone Prudence Mena P.A.-C. Primary Care Pro vider Reason for Referral * Outpatient (Routine) - Authorized Specialty Diagnoses / Procedures Referred By Contac t Referred To Contact Community [facility] Medicine Prudence Mena MPAS, P.A.-C. [address] [place] [address] Phone: tel: fax: [facility] Region Referral ID Status Reason Start Date Expiration Date V isits Requested Visits Authorized [id number] Authorized 07/11/2024 01/10/2026 1 1 YER HELPER Encounter Details Date Type Department Care Team (Late st Contact Info) Description 07/11/2024 Orders Only Department of Community Internal Medicine in [place], [place] [address] [place] [address] Prudence Mena MPAS, P.A.-C. [address] [place] [address] Pneumonia (Primary Dx) Social History Tobacco Use Types Packs/Day Years Used Date Smoking Tobacco: Former Cigarettes 1.5 0.1 S tarted: 06/21/2024 Passive Smoke Exposure: Past Smokeless Tobacco: Never Alcohol Use Standard Drinks/Week Comments Yes 0 (1 standard drink = 0.6 oz pur e alcohol) socially [facility] Utilities Answer Date Recorded In the [...] Never 07/27/2022 How often do you attend mormon or worship serv ices? Never 07/27/2022 Do you belong to any clubs o r organizations such as mormon groups, unions, fraternal or athletic groups, or [...] Answer Date Recorded PHQ-2 Score 6 07/10/2024 [facility] Health - Occupational [...] PM CDT documented as of this encounter Plan of Treatment Upcoming Encounters Date Type Department Care Team ([facility] st Contact Info) Description 07/18/2024 1:00 PM ASSAYER HELPER Appointment Department of Radiology in [place], [place] [address] [place] [address] Prudence Mena MPAS, P.A.-C. [address] [facility] [place] [phone] Discharge Disposition: Home or Self Care Scheduled Orders Name Type Priority Associated Diagnoses Orde r Schedule CBC with Differential, Blood Lab Routine Pneumonia Expected: 07/18/2024, Expires: 10/09/2025 Basic Metabolic Panel Lab Routine Pneumonia Expected: 07/18/2024, Expires: 10/09/2025 Scheduled Referrals Name Type Priority Associated Diagnoses Orde r Schedule Community Internal Medicine office visit (clinic) Outpatient Referral Routine Expected: 07/18/2024, Expires: 10/09/2025 documented as of this encounter Visit Diagnoses Diagnosis Pneumonia- Primary documented in this encounter Additional Health Concerns Assessment Noted Time PHQ-9 Depression Total Score: 22 025 7:19 PM ASSAYER HELPER documented as of this encounter Care Teams Stonecutter Assistant Relationship Specialty Start Date End Date Prudence Mena MPAS, P.A.-C. [address] [place] [address] PCP - General Internal Medicine 02/08/24 documented as of this encounter
[2024-07-12 22:41] VITALS: BP 118/84; PULSE 118; RESP 28; TEMP 35.7; O2SAT 95; BMI 37.8
--- NOTE | 2024-07-12 23:11 | CRLHL7_ITS ---
For Patients: As a result of the Century Cures Act, medical imaging exams and procedure reports are released immediately into your electronic medical record. You may view this report before your referring provider. If you have questions, please contact your health care provider. Indication: Tachycardia, dyspnea, left-sided chest pain Technique: CTA of the chest following 95 mL Isovue 370 IV contrast. Axial MIP images performed. Comparison: CTA chest performed 06/30/2024 Findings: Pulmonary arteries: No pulmonary embolism appreciated. Lungs: Slightly increased size of left pleural effusion. Increased bibasilar atelectasis. No pneumothorax. Mediastinum: No acute abnormality appreciated. Lymph nodes: No gross lymphadenopathy. Upper abdomen: Multifocal right renal scarring. Soft tissues: No acute abnormality appreciated. Bones: No acute abnormality appreciated. Impression: Slight interval increase in size of left pleural effusion and increase in bilateral areas of atelectasis. No pulmonary embolism is appreciated. Please note that all CT scans at this facility use dose modulation, iterative reconstruction, and/or weight-based dosing when appropriate to reduce radiation dose to as low as reasonably achievable. Dictated by London Johnson MD @ 07/13/2024 12:35:58 AM (Electronically Signed)
[2024-07-12 23:13] VITALS: O2SAT 95
--- NOTE | 2024-07-12 23:18 | ED.GENADULT ---
HPI - General Adult General Chief complaint: Chest Pain <Johanny Villavicencio MD - Last Filed: 07/16/24 23:53> Stated complaint: shortness of breath, has pneumonia <Johanny Villavicencio MD - Last Filed: 07/16/24 23:53> Time Seen by Provider: 07/12/24 22:52 <Johanny Villavicencio MD - Last Filed: 07/16/24 23:53> Source: patient <Johanny Villavicencio MD - Last Filed: 07/16/24 23:53> Mode of arrival: ambulatory <Johanny Villavicencio MD - Last Filed: 07/16/24 23:53> Limitations: no limitations <Johanny Villavicencio MD - Last Filed: 07/16/24 23:53> History of Present Illness HPI narrative: 39-year-old female presents the emergency department with significant worsening shortness of breath over the past few hours. Not responsive to albuterol and DuoNeb treatment at home. Patient was hospitalized 2 weeks ago with pneumonia, discharged about 10 days ago. Those notes are reviewed. She had significant leukocytosis and a left-sided pneumonia with a parapneumonic effusion. She did have a CT PA that did not show pulmonary embolism. She says that she gradually improved and saw her primary care provider yesterday for outpatient follow-up. She completed her course of antibiotics with doxycycline and azithromycin as prescribed. 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 She is no longer on steroids. No history of DVT or PE. No swelling in the legs. Chest feels heavy and uncomfortable, nonfocal. Cough is not productive. No fevers over 100.4. No abdominal pain, vomiting or bloody diarrhea. No gynecological or urinary changes. No new illness exposures. Has not tried any other interventions besides the prescribed medications and neb treatments today to help with symptoms. Past medical history is pretty extensive. Obesity, asthma, significant comorbid mental health issues. Recent discharge summary is reviewed. ROS is notable for the respiratory and generalized symptoms as above, otherwise denies times 12 systems. <Johanny Villavicencio MD - Last Filed: 07/16/24 23:53> Related Data Home medications: Home Medications ?Medication ?Instructions ?Recorded ?Confirmed albuterol sulfate 2.5 mg/3 mL 2.5 mg inhalation Q4H PRN wheezing 08/17/23 07/13/24 (0.083 %) solution for nebulization albuterol sulfate 90 mcg/actuation 2 puff inhalation Q4H PRN wheezing 08/17/23 06/30/24 aerosol inhaler (Ventolin HFA) bupropion HCl 150 mg 24 hr tablet, 150 mg PO QAM 08/17/23 07/13/24 extended release bupropion HCl 300 mg 24 hr tablet, 300 mg PO QAM 08/17/23 07/13/24 extended release cholecalciferol (vitamin D3) 50 50 mcg PO DAILY 08/17/23 07/13/24 mcg (2,000 unit) capsule elagolix 150 mg tablet (Orilissa) 150 mg PO DAILY 08/17/23 07/13/24 fluticasone propionate 115 2 puff inhalation Q12H 08/17/23 07/13/24 mcg-salmeterol 21 mcg/actuation HFA inhaler lisinopril 10 mg tablet 10 mg PO DAILY 08/17/23 07/13/24 lorazepam 0.5 mg tablet 0.5 mg PO DAILY PRN anxiety 08/17/23 07/13/24 pregabalin 200 mg capsule 200 mg PO TID 08/17/23 07/13/24 trazodone 50 mg tablet 50 - 200 mg PO HS PRN insomnia 08/17/23 07/13/24 azithromycin 250 mg tablet 250 mg PO DAILY 06/30/24 07/13/24 cariprazine 4.5 mg capsule 4.5 mg PO DAILY 06/30/24 07/13/24 (Vraylar) dextroamphetamine sulfate 15 mg 15 mg PO DAILY 06/30/24 07/13/24 capsule,extended release dextroamphetamine-amphetamine 10 1 tab PO DAILY@1200 06/30/24 07/13/24 mg tablet duloxetine 60 mg capsule,delayed 60 mg PO DAILY 06/30/24 07/13/24 release ipratropium 0.5 mg-albuterol 3 mg 3 ml inhalation Q4H PRN 06/30/24 07/13/24 (2.5 mg base)/3 mL nebulization soln Previous Rx's ?Medication ?Instructions ?Recorded guaifenesin 600 mg tablet, 1,200 mg (2 x 600 mg) PO BID #30 07/04/24 extended release 12 hr (Mucinex) tabs <Johanny Villavicencio MD - Last Filed: 07/16/24 23:53> Allergies/adverse reactions: Allergies Allergy/AdvReac Type Severity Reaction Status Date / Time No Known Allergies Allergy Verified 07/13/24 00:17 <Johanny Villavicencio MD - Last Filed: 07/16/24 23:53> [facility] Medical History: Medical History Intervertebral disc disorder with radiculopathy of lumbar region ?M51.16 - Intervertebral disc disorders with radiculopathy, lumbar region (ICD-10) Low back pain ?M54.50 - Low back pain, unspecified (ICD-10) Major depressive disorder ?F32.9 - Major depressive disorder, single episode, unspecified (ICD-10) Anxiety ?F41.9 - Anxiety disorder, unspecified (ICD-10) Herpes zoster ?B02.9 - Zoster without complications (ICD-10) Iron deficiency anemia ?D50.9 - Iron deficiency anemia, unspecified (ICD-10) Hypertension ?I10 - Essential (primary) hypertension (ICD-10) <Johanny Villavicencio MD - Last Filed: 07/16/24 23:53> Surgical History: Surgical History History of hysterectomy ?Z90.710 - Acquired absence of both cervix and uterus (ICD-10) <Johanny Villavicencio MD - Last Filed: 07/16/24 23:53> Social History: Social History What is your current living situation?: I presently have a place to live Problems where you live: no known problems Problems where you live details: N/A In the past 12 months, utilities in danger of being shut off: no In past 12 months, lack of transportation kept you from medical appts, meetings, work, or getting things needed for daily living: no In the past 12 mos, have been you worried that your food would run out before you had money to buy more?: never true In the past 12 mos, the food you bought just didn't last and you didn't have money to buy more?: never true Highest level of school completed/degree received: high school graduate Smoking Status: Former smoker What tobacco products do you use: cigarettes Smoking quit date/years: <= 15 years ago Do you use any of these nicotine containing products: None Nicotine containing products detail: 2 weeks Second hand tobacco smoke exposure: No How often do you have a drink containing alcohol: monthly or less How often do you have six or more drinks on one occasion: Never AUDIT-C Alcohol total score: 1 Non-prescribed substance use: denies use Caffeine: Yes (Mtn Dew 1-2 daily) How often does anyone, including family, friends and others, physically hurt you: never How often does anyone, including family, friends and others, insult or talk down to you: never How often does anyone, including family, friends and others, threaten you with harm: never How often does anyone, including family, friends and others, scream or curse at you: never service: No <Johanny Villavicencio MD - Last Filed: 07/16/24 23:53> Exam Const: Vital Signs, click to edit/add: Vital Signs - 24 hr 07/12/24 22:41 07/12/24 23:13 07/12/24 23:45 Temperature 96.2 F L Pulse Rate 109 H Pulse Rate [Left P ulse Oximeter] 118 H Respiratory Rate 28 H 20 Blood Pressure 122/82 Blood Pressure [Ri ght Upper Arm] 118/84 Pulse Oximetry 95 95 100 Oxygen Delivery Me thod Room Air Aerosol Mask Oxygen Flow Rate 4 07/13/24 00:01 07/13/24 00:32 Temperature Pulse Rate 117 H 110 H Pulse Rate [Left P ulse Oximeter] Respiratory Rate 18 16 Blood Pressure 133/91 H 128/75 Blood Pressure [Ri ght Upper Arm] Pulse Oximetry 93 92 Oxygen Delivery Me thod Room Air Room Air Oxygen Flow Rate <Johanny Villavicencio MD - Last Filed: 07/16/24 23:53> Vital Signs, click to edit/add: Vital Signs - 24 hr 07/12/24 22:41 07/12/24 23:13 07/12/24 23:45 Temperature 96.2 F L Pulse Rate 109 H Pulse Rate [Left P ulse Oximeter] 118 H Respiratory Rate 28 H 20 Blood Pressure 122/82 Blood Pressure [Ri ght Upper Arm] 118/84 Pulse Oximetry 95 95 100 Oxygen Delivery Me thod Room Air Aerosol Mask Oxygen Flow Rate 4 07/13/24 00:01 07/13/24 00:32 Temperature Pulse Rate 117 H 110 H Pulse Rate [Left P ulse Oximeter] Respiratory Rate 18 16 Blood Pressure 133/91 H 128/75 Blood Pressure [Ri ght Upper Arm] Pulse Oximetry 93 92 Oxygen Delivery Me thod Room Air Room Air Oxygen Flow Rate <Vasyl Lombardi MD - Last Filed: 07/13/24 01:25> Documenting provider has reviewed patient's vital signs: yes <Johanny Villavicencio MD - Last Filed: 07/16/24 23:53> Common normals: no apparent distress <Johanny Villavicencio MD - Last Filed: 07/16/24 23:53> General appearance: cooperative <Johanny Villavicencio MD - Last Filed: 07/16/24 23:53> Other: Good historian. Tachypneic and appears mildly short of breath on conversation. Answers questions appropriately, follows commands normally. <Johanny Villavicencio MD - Last Filed: 07/16/24 23:53> HENMT: Common normals: normocephalic <Johanny Villavicencio MD - Last Filed: 07/16/24 23:53> Head and scalp: normal to inspection and normocephalic <Johanny Villavicencio MD - Last Filed: 07/16/24 23:53> Face and sinus: normal facial exam <Johanny Villavicencio MD - Last Filed: 07/16/24 23:53> Mouth: oral and palatal mucosa normal <Johanny Villavicencio MD - Last Filed: 07/16/24 23:53> Throat: posterior oropharynx normal <Johanny Villavicencio MD - Last Filed: 07/16/24 23:53> Eye: Common normals: conjunctivae normal <Johanny Villavicencio MD - Last Filed: 07/16/24 23:53> General eye: normal appearance of both eyes <Johanny Villavicencio MD - Last Filed: 07/16/24 23:53> Conjunctiva: conjunctiva(e) normal <MD Mady Graves Last Filed: 07/16/24 23:53> Neck & C-Spine: Common normals: full ROM and no lymphadenopathy <Johanny Villavicencio MD - Last Filed: 07/16/24 23:53> Resp: Other: Mildly increased respiratory effort, tachypnea noted. Poor air movement but really minimal wheeze and crackles. Expiration does not seem prolonged. <Johanny Villavicencio MD - Last Filed: 07/16/24 23:53> Cardio: Common normals: regular rate, regular rhythm, S1 normal heart sound, S2 normal heart sound and no murmurs <Johanny Villavicencio MD - Last Filed: 07/16/24 23:53> Rate: regular rate <Johanny Villavicencio MD - Last Filed: 07/16/24 23:53> Rhythm: regular rhythm <Johanny Villavicencio MD - Last Filed: 07/16/24 23:53> Heart sounds: S1 normal and S2 normal <MD Mady Graves Last Filed: 07/16/24 23:53> GI: Common normals: Normal to inspection, nondistended, normoactive bowel sounds present, no hepatosplenomegaly and no masses <Johanny Villavicencio MD - Last Filed: 07/16/24 23:53> Palpation: no hepatosplenomegaly <MD Mady Graves Last Filed: 07/16/24 23:53> Back & Pelvis: Common normals: thoracic and lumbar spine normal to inspection <MD Mady Graves Last Filed: 07/16/24 23:53> Extremity: Common normals: normal to inspection, normal capillary refill and no pedal edema <MD Mady Graves Last Filed: 07/16/24 23:53> Neuro: Speech: speech normal <Johanny Villavicencio MD - Last Filed: 07/16/24 23:53> Motor exam: no movement abnormalities noted <Johanny Villavicencio MD - Last Filed: 07/16/24 23:53> Psych: Appearance: grossly normal <Johanny Villavicencio MD - Last Filed: 07/16/24 23:53> Attitude: engaged <Johanny Villavicencio MD - Last Filed: 07/16/24 23:53> Mood and affect: euthymic mood <Johanny Villavicencio MD - Last Filed: 07/16/24 23:53> Insight: insight good <Johanny Villavicencio MD - Last Filed: 07/16/24 23:53> Judgement: judgment good <Johanny Villavicencio MD - Last Filed: 07/16/24 23:53> Skin: Common normals: no rashes or lesions noted <Johanny Villavicencio MD - Last Filed: 07/16/24 23:53> General skin exam: no rashes or lesions noted <Johanny Villavicencio MD - Last Filed: 07/16/24 23:53> Course Course ED Course: 39-year-old female presenting with recent pneumonia now with worsening dyspnea, tachypnea and tachycardia. Differential diagnosis including return of pneumonia, pleural effusion, empyema, heart failure, acute coronary syndrome. Pulmonary embolism, sepsis, amongst others. Clinical exam really does not appropriately explain her tachypnea and tachycardia, raising additional concern for pulmonary embolism. Risks and benefits of aggressive investigation reviewed with patient. I recommend we go straight to CT PA. basic labs, venous blood gas, cardiac investigation. Will try DuoNeb to see if this increases the air movement. Peripheral IV placed. Await findings. May benefit from additional steroids, antibiotics based on findings. 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 <Johanny Villavicencio MD - Last Filed: 07/16/24 23:53> Reevaluation(s) Reevaluation #1: Harjit -- inherited this patient at change of shift pending discussion with hospitalist. CT imaging verified worsening of pleural effusion and pneumonia. Meets SIRS criteria with tachycardia and respirations and is also mildly hypoxic concurrently on 4 L. Hemoglobin has dropped remarkably over the last month mid at least some of it may have been contraction at onset but 9.9 today. Was thought to have some degree of a GI bleed possibly NSAID related. Will be drawing blood cultures. Discussed with hospitalist who has accepted. Initiating cefepime and vancomycin in the emergency department. Likely will be some time before able to be seen on the floor due to volume of patients. <Vasyl Lombardi MD - Last Filed: 07/13/24 01:25> Vital Signs Vital signs: Initial Vital Signs Temperature 96.2 F L 07/12/24 22:41 Temperature Source Temporal Artery Scan 07/12/24 22:41 Pulse Rate 118 H 07/12/24 22:41 Pulse Rhythm Regular 07/12/24 22:41 Respiratory Rate 28 H 07/12/24 22:41 Respiratory Effort Spontaneous, Labored 07/12/24 22:41 Respiratory Depth Normal 07/12/24 22:41 Respiratory Pattern Normal 07/12/24 22:41 Blood Pressure 118/84 07/12/24 22:41 Blood Pressure Mean 95 07/12/24 22:41 Blood Pressure Position Sitting 07/12/24 22:41 Pulse Oximetry 95 07/12/24 22:41 Oxygen Delivery Method Room Air 07/12/24 22:41 Vital Signs Temperature 96.2 F L 07/12/24 22:41 Pulse Rate 118 H 07/12/24 22:41 Respiratory Rate 28 H 07/12/24 22:41 Blood Pressure 118/84 07/12/24 22:41 Pulse Oximetry 95 07/12/24 22:41 Oxygen Delivery Method Room Air 07/12/24 22:41 Temperature 98.5 F 07/13/24 16:02 Pulse Rate 112 H 07/13/24 16:02 Respiratory Rate 20 07/13/24 16:02 Blood Pressure 148/93 H 07/13/24 16:02 Pulse Oximetry 91 07/13/24 16:02 Oxygen Delivery Method Room Air 07/13/24 16:02 Oxygen Flow Rate 4 07/12/24 23:45 <Johanny Villavicencio MD - Last Filed: 07/16/24 23:53> Initial Vital Signs Temperature 96.2 F L 07/12/24 22:41 Temperature Source Temporal Artery Scan 07/12/24 22:41 Pulse Rate 118 H 07/12/24 22:41 Pulse Rhythm Regular 07/12/24 22:41 Respiratory Rate 28 H 07/12/24 22:41 Respiratory Effort Spontaneous, Labored 07/12/24 22:41 Respiratory Depth Normal 07/12/24 22:41 Respiratory Pattern Normal 07/12/24 22:41 Blood Pressure 118/84 07/12/24 22:41 Blood Pressure Mean 95 07/12/24 22:41 Blood Pressure Position Sitting 07/12/24 22:41 Pulse Oximetry 95 07/12/24 22:41 Oxygen Delivery Method Room Air 07/12/24 22:41 Vital Signs Temperature 96.2 F L 07/12/24 22:41 Pulse Rate 118 H 07/12/24 22:41 Respiratory Rate 28 H 07/12/24 22:41 Blood Pressure 118/84 07/12/24 22:41 Pulse Oximetry 95 07/12/24 22:41 Oxygen Delivery Method Room Air 07/12/24 22:41 Temperature 98.5 F 07/13/24 16:02 Pulse Rate 112 H 07/13/24 16:02 Respiratory Rate 20 07/13/24 16:02 Blood Pressure 148/93 H 07/13/24 16:02 Pulse Oximetry 91 07/13/24 16:02 Oxygen Delivery Method Room Air 07/13/24 16:02 Oxygen Flow Rate 4 07/12/24 23:45 <Vasyl Lombardi MD - Last Filed: 07/13/24 01:25> Medications Administered Medications: Discontinued Medications Generic Name Dose Route Start Last Admin Trade Name Debbie PRN Reason Stop Dose Admin Acetaminophen 650 mg 07/13/24 10:51 07/13/24 10:57 Acetaminophen 325 Mg Tablet PO 650 mg Q6H PRN Administration As needed for fever, headache, or minor pain Hydrocodone Bitart/Acetaminophen 1 tab 07/13/24 00:33 07/13/24 10:57 Hydrocodone-Acetamin 5-325 Mg 1 Tab PO 1 tab Q6H PRN Administration Albuterol/Ipratropium 1 neb 07/12/24 23:11 07/12/24 23:43 Iprat-Albut 0.5-2.5 Mg/3 Ml Neb IH 07/12/24 23:12 1 neb ONCE ONE Administration Bupropion HCl 150 mg 07/13/24 09:00 07/13/24 09:19 Bupropion Xl 150 Mg Tablet PO 150 mg QAM ETHEL Administration Bupropion HCl 300 mg 07/13/24 09:00 07/13/24 09:19 Bupropion Xl 150 Mg Tablet PO 300 mg QAM ETHEL Administration Duloxetine HCl 60 mg 07/13/24 09:00 07/13/24 09:20 Duloxetine [address] PO 60 mg DAILY ETHEL Administration Guaifenesin 1,200 mg 07/13/24 09:00 07/13/24 09:20 Guaifenesin 600 Mg Tab.Er.12h PO 1,200 mg BID ETHEL Administration Hydromorphone HCl 0.2 - 0.5 mg 07/13/24 03:36 07/13/24 17:25 Hydromorphone 0.5 Mg/0.5 Ml Inj IVP 0.5 mg Q2H PRN Administration Pain Sodium Chloride 1,000 mls @ 500 mls/hr 07/13/24 00:22 07/13/24 00:28 0.9 % Sodium Chloride 1000 Ml IV 07/13/24 02:21 500 mls/hr .Q2H ETHEL Administration Cefepime HCl 2 gm/ Sodium 100 mls @ 200 mls/hr 07/13/24 05:00 07/13/24 05:01 Chloride IVPB 07/13/24 05:29 Not Given ONCE ONE Vancomycin/PEG/NADA/Lysine/Water 2 gm in 400 mls @ 200 mls/hr 07/13/24 02:00 07/13/24 04:34 Vancomycin 2 Gm/400 Ml IVPB 07/13/24 03:59 Infused ONCE ONE Infusion Protocol Vancomycin/PEG/NADA/Lysine/Water 1.5 gm in 300 mls @ 200 mls/hr 07/13/24 14:00 07/13/24 17:37 Vancomycin 1.5 Gm/300 Ml IVPB Infused Q12H ETHEL Infusion Ceftriaxone Sodium 2 gm/ 100 mls @ 200 mls/hr 07/13/24 04:00 07/13/24 04:54 Sodium Chloride IVPB 200 mls/hr Q24H ETHEL Administration Clindamycin Phosphate 900 mg in 50 mls @ 100 mls/hr 07/13/24 04:30 07/13/24 17:19 Clindamycin 900 Mg/50 Ml-D5w IVPB Infused Q8H ETHEL Infusion Lisinopril 10 mg 07/13/24 09:00 07/13/24 09:20 Lisinopril 10 Mg Tablet PO 10 mg DAILY ETHEL Administration Dextroamphetamine 0 mg 07/13/24 09:00 07/13/24 17:27 Sulfate 15 Mg PO Not Given Capsule, Extended DAILY ETHEL Release) Elagolix [Orilissa] 0 mg 07/13/24 09:00 07/13/24 17:28 150 Mg Tablet PO Not Given DAILY ETHEL Pantoprazole Sodium 40 mg 07/13/24 06:00 07/13/24 06:38 Pantoprazole Sodium 40 Mg Inj IVP 40 mg Q24H ETHEL Administration Prednisone 40 mg 07/13/24 09:00 07/13/24 09:21 Prednisone 20 Mg Tablet PO 40 mg DAILY ETHEL Administration Pregabalin 200 mg 07/13/24 09:00 07/13/24 14:17 Pregabalin 100 Mg Capsule PO 200 mg TID ETHEL Administration Sodium Chloride 5 ml 07/13/24 03:17 07/13/24 08:25 Sodium Chloride 0.9 % (Flush) 10 Ml Syringe IVF 5 ml .FLUSH PRN Administration Sodium Chloride 5 ml 07/13/24 09:00 07/13/24 09:21 Sodium Chloride 0.9 % (Flush) 10 Ml Syringe IVF 5 ml BID ETHEL Administration <Johanny Villavicencio MD - Last Filed: 07/16/24 23:53> Discontinued Medications Generic Name Dose Route Start Last Admin Trade Name Freq PRN Reason Stop Dose Admin Acetaminophen 650 mg 07/13/24 10:51 07/13/24 10:57 Acetaminophen 325 Mg Tablet PO 650 mg Q6H PRN Administration As needed for fever, headache, or minor pain Hydrocodone Bitart/Acetaminophen 1 tab 07/13/24 00:33 07/13/24 10:57 Hydrocodone-Acetamin 5-325 Mg 1 Tab PO 1 tab Q6H PRN Administration Albuterol/Ipratropium 1 neb 07/12/24 23:11 07/12/24 23:43 Iprat-Albut 0.5-2.5 Mg/3 Ml Neb IH 07/12/24 23:12 1 neb ONCE ONE Administration Bupropion HCl 150 mg 07/13/24 09:00 07/13/24 09:19 Bupropion Xl 150 Mg Tablet PO 150 mg QAM ETHEL Administration Bupropion HCl 300 mg 07/13/24 09:00 07/13/24 09:19 Bupropion Xl 150 Mg Tablet PO 300 mg QAM ETHEL Administration Duloxetine HCl 60 mg 07/13/24 09:00 07/13/24 09:20 [address]oxetine [address] PO 60 mg DAILY ETHEL Administration Guaifenesin 1,200 mg 07/13/24 09:00 07/13/24 09:20 Guaifenesin 600 Mg Tab.Er.12h PO 1,200 mg BID ETHEL Administration Hydromorphone HCl 0.2 - 0.5 mg 07/13/24 03:36 07/13/24 17:25 Hydromorphone 0.5 Mg/0.5 Ml Inj IVP 0.5 mg Q2H PRN Administration Pain Sodium Chloride 1,000 mls @ 500 mls/hr 07/13/24 00:22 07/13/24 00:28 0.9 % Sodium Chloride 1000 Ml IV 07/13/24 02:21 500 mls/hr .Q2H ETHEL Administration Cefepime HCl 2 gm/ Sodium 100 mls @ 200 mls/hr 07/13/24 05:00 07/13/24 05:01 Chloride IVPB 07/13/24 05:29 Not Given ONCE ONE Vancomycin/PEG/NADA/Lysine/Water 2 gm in 400 mls @ 200 mls/hr 07/13/24 02:00 07/13/24 04:34 Vancomycin 2 Gm/400 Ml IVPB 07/13/24 03:59 Infused ONCE ONE Infusion Protocol Vancomycin/PEG/NADA/Lysine/Water 1.5 gm in 300 mls @ 200 mls/hr 07/13/24 14:00 07/13/24 17:37 Vancomycin 1.5 Gm/300 Ml IVPB Infused Q12H ETHEL Infusion Ceftriaxone Sodium 2 gm/ 100 mls @ 200 mls/hr 07/13/24 04:00 07/13/24 04:54 Sodium Chloride IVPB 200 mls/hr Q24H ETHEL Administration Clindamycin Phosphate 900 mg in 50 mls @ 100 mls/hr 07/13/24 04:30 07/13/24 17:19 Clindamycin 900 Mg/50 Ml-D5w IVPB Infused Q8H ETHEL Infusion Lisinopril 10 mg 07/13/24 09:00 07/13/24 09:20 Lisinopril 10 Mg Tablet PO 10 mg DAILY ETHEL Administration Dextroamphetamine 0 mg 07/13/24 09:00 07/13/24 17:27 Sulfate 15 Mg PO Not Given Capsule, Extended DAILY ETHEL Release) Elagolix [Orilissa] 0 mg 07/13/24 09:00 07/13/24 17:28 150 Mg Tablet PO Not Given DAILY ETHEL Pantoprazole Sodium 40 mg 07/13/24 06:00 07/13/24 06:38 Pantoprazole Sodium 40 Mg Inj IVP 40 mg Q24H ETHEL Administration Prednisone 40 mg 07/13/24 09:00 07/13/24 09:21 Prednisone 20 Mg Tablet PO 40 mg DAILY ETHEL Administration Pregabalin 200 mg 07/13/24 09:00 07/13/24 14:17 Pregabalin 100 Mg Capsule PO 200 mg TID ETHEL Administration Sodium Chloride 5 ml 07/13/24 03:17 07/13/24 08:25 Sodium Chloride 0.9 % (Flush) 10 Ml Syringe IVF 5 ml .FLUSH PRN Administration Sodium Chloride 5 ml 07/13/24 09:00 07/13/24 09:21 Sodium Chloride 0.9 % (Flush) 10 Ml Syringe IVF 5 ml BID ETHEL Administration <Vasyl Lombardi MD - Last Filed: 07/13/24 01:25> Medical Decision Making Lab Data Lab results reviewed: Yes I reviewed the patient's lab results <Johanny Villavicencio MD - Last Filed: 07/16/24 23:53> Lab results narrative: Still has significant leukocytosis with a high absolute neutrophil count. Blood gases are centrally reassuring. Specific gravity is elevated suggesting some mild dehydration. Viral swabs negative. <Johanny Villavicencio MD - Last Filed: 07/16/24 23:53> Labs: Lab Results 07/12/24 07/12/24 07/13/24 Range/Units 23:15 23:30 05:40 WBC 15.53 H 12.63 H (4.50-11.00) K/uL RBC 3.39 L 3.01 L (4.00-5.20) m/uL Hgb 9.9 L 8.7 L (12.0-16.0) gm/dL Hct 30.8 L 27.6 L (33.0-51.0) % MCV 91 92 (80-100) fL MCH 29 29 (26-34) pg MCHC 32 32 (32-36) gm/dL RDW Coeff of Mayank 15.1 15.3 (11.5-15.5) % Plt Count 509 H 678 H (140-440) K/uL Neut % (Auto) 76.9 H 75.7 H (42.0-72.0) % Lymph % (Auto) 14.9 L 15.8 L (20-44) % [place] % (Auto) 6.1 6.7 (0.0-11.0) % Eos % (Auto) 0.6 1.3 (0.0-7.0) % Baso % (Auto) 0.3 0.3 (0.0-3.0) % Neut # (Auto) 11.90 H 9.60 H (1.7-7.0) K/uL Lymph # (Auto) 2.30 2.00 (0.90-2.90) K/uL [place] # (Auto) 0.90 0.80 (0.00-0.90) K/UL Eos # (Auto) 0.10 0.20 (0.00-0.50) K/uL Baso # (Auto) 0.00 0.00 (0.00-0.30) K/uL Abs Immat Gran (auto) 0.20 0.00 (0.00-0.30) K/uL Imm/Tot Granulo (auto) 1.2 0.2 % VBG pH 7.461 H (7.32-7.43) VBG pCO2 40 (40-50) mmHG VBG pO2 44.4 (25-47) mmHG VBG HCO3 28 (21-28) mmol/L Sodium 140 (135-149) mmol/L Potassium 4.0 (3.6-5.1) mmol/L Chloride 105 (96-114) mmol/L Carbon Dioxide 28 (20-32) mmol/L Anion Gap 7 (7-15) mEq/L BUN 19 (5-24) mg/dL Creatinine 0.5 (0.5-1.5) mg/dL Estimated Creat Clear 131.74 Estimated GFR 123 ml/min Glucose 97 (60-115) mg/dL Lactate 1.0 (0.5-1.9) mmol/L Calcium 8.8 (8.4-10.6) mg/dL Iron 14 L (37-170) ug/dL TIBC 195 L (265-497) ug/dL % Saturation 7 L (20-50) % Total Bilirubin 0.4 (0.1-1.5) mg/dL AST 22 (12-35) U/L ALT 19 (4-35) U/L Alkaline Phosphatase 95 (40-150) U/L C-Reactive Protein 33.5 H 28.3 H (0.5-1.0) mg/dL Total Protein 7.0 (6.0-8.3) g/dL Albumin 3.7 (3.3-5.0) g/dL Procalcitonin 0.15 (<0.50) ng/mL Urine Color Yellow (Yellow) Urine Appearance Cloudy A (Clear) Urine pH 7.0 (5.0-8.5) Ur Specific [place] >= 1.030 (1.000-1.030) Urine Protein 1+ A (Negative) Urine Glucose (UA) Negative (Negative) Urine Ketones Negative (Negative) Urine Blood Trace-intact A (Negative) Urine Nitrite Negative (Negative) Urine Bilirubin Negative (Negative) Urine Urobilinogen 0.2 (0.2-1.0) Ur Leukocyte Esterase Negative (Negative) Urine RBC 2-5 A (0-2) Urine WBC 5-10 A (0-5) Ur Squamous Epith Cells Moderate A (None-Few) Amorphous Sediment Moderate A (None) Urine Bacteria Few A (None) Fine Granular Casts Few A (None) Urine HCG, Qual Negative (Negative) SARS-CoV-2 (PCR) Negative SARS-CoV-2 (Negative) Influenza Type A (PCR) Negative PCR FLU A (Negative) Influenza Type B (PCR) Negative PCR FLU B (Negative) RSV (PCR) Negative PCR RSV (Negative) POC Troponin I 0.00 L (0.01-0.04) ng/ml <Johanny Villavicencio MD - Last Filed: 07/16/24 23:53> Lab Results 07/12/24 07/12/24 07/13/24 Range/Units 23:15 23:30 05:40 WBC 15.53 H 12.63 H (4.50-11.00) K/uL RBC 3.39 L 3.01 L (4.00-5.20) m/uL Hgb 9.9 L 8.7 L (12.0-16.0) gm/dL Hct 30.8 L 27.6 L (33.0-51.0) % MCV 91 92 (80-100) fL MCH 29 29 (26-34) pg MCHC 32 32 (32-36) gm/dL RDW Coeff of [place] 15.1 15.3 (11.5-15.5) % Plt Count 509 H 678 H (140-440) K/uL Neut % (Auto) 76.9 H 75.7 H (42.0-72.0) % Lymph % (Auto) 14.9 L 15.8 L (20-44) % [place] % (Auto) 6.1 6.7 (0.0-11.0) % Eos % (Auto) 0.6 1.3 (0.0-7.0) % Baso % (Auto) 0.3 0.3 (0.0-3.0) % Neut # (Auto) 11.90 H 9.60 H (1.7-7.0) K/uL Lymph # (Auto) 2.30 2.00 (0.90-2.90) K/uL [place] # (Auto) 0.90 0.80 (0.00-0.90) K/UL Eos # (Auto) 0.10 0.20 (0.00-0.50) K/uL Baso # (Auto) 0.00 0.00 (0.00-0.30) K/uL Abs Immat Gran (auto) 0.20 0.00 (0.00-0.30) K/uL Imm/Tot Granulo (auto) 1.2 0.2 % VBG pH 7.461 H (7.32-7.43) VBG pCO2 40 (40-50) mmHG VBG pO2 44.4 (25-47) mmHG VBG HCO3 28 (21-28) mmol/L Sodium 140 (135-149) mmol/L Potassium 4.0 (3.6-5.1) mmol/L Chloride 105 (96-114) mmol/L Carbon Dioxide 28 (20-32) mmol/L Anion Gap 7 (7-15) mEq/L BUN 19 (5-24) mg/dL Creatinine 0.5 (0.5-1.5) mg/dL Estimated Creat Clear 131.74 Estimated GFR 123 ml/min Glucose 97 (60-115) mg/dL Lactate 1.0 (0.5-1.9) mmol/L Calcium 8.8 (8.4-10.6) mg/dL Iron 14 L (37-170) ug/dL TIBC 195 L (265-497) ug/dL % Saturation 7 L (20-50) % Total Bilirubin 0.4 (0.1-1.5) mg/dL AST 22 (12-35) U/L ALT 19 (4-35) U/L Alkaline Phosphatase 95 (40-150) U/L C-Reactive Protein 33.5 H 28.3 H (0.5-1.0) mg/dL Total Protein 7.0 (6.0-8.3) g/dL Albumin 3.7 (3.3-5.0) g/dL Procalcitonin 0.15 (<0.50) ng/mL Urine Color Yellow (Yellow) Urine Appearance Cloudy A (Clear) Urine pH 7.0 (5.0-8.5) Ur Specific [place] >= 1.030 (1.000-1.030) Urine Protein 1+ A (Negative) Urine Glucose (UA) Negative (Negative) Urine Ketones Negative (Negative) Urine Blood Trace-intact A (Negative) Urine Nitrite Negative (Negative) Urine Bilirubin Negative (Negative) Urine Urobilinogen 0.2 (0.2-1.0) Ur Leukocyte Esterase Negative (Negative) Urine RBC 2-5 A (0-2) Urine WBC 5-10 A (0-5) Ur Squamous Epith Cells Moderate A (None-Few) Amorphous Sediment Moderate A (None) Urine Bacteria Few A (None) Fine Granular Casts Few A (None) Urine HCG, Qual Negative (Negative) SARS-CoV-2 (PCR) Negative SARS-CoV-2 (Negative) Influenza Type A (PCR) Negative PCR FLU A (Negative) Influenza Type B (PCR) Negative PCR FLU B (Negative) RSV (PCR) Negative PCR RSV (Negative) POC Troponin I 0.00 L (0.01-0.04) ng/ml <Vasyl Lombardi MD - Last Filed: 07/13/24 01:25> Imaging Data CT scan - chest: Attestation: I have reviewed the pertinent imaging results. <Johanny Villavicencio MD - Last Filed: 07/16/24 23:53> My impression: Left-sided pleural effusion and pneumonia. Looks a little worse to me than previously. No obvious pulmonary embolism. <Johanny Villavicencio MD - Last Filed: 07/16/24 23:53> Radiologist's impression: Impression: Slight interval increase in size of left pleural effusion and increase in bilateral areas of atelectasis. No pulmonary embolism is appreciated. Please note that all CT scans at this facility use dose modulation, iterative reconstruction, and/or weight-based dosing when appropriate to reduce radiation dose to as low as reasonably achievable. Dictated by London Johnson MD @ 07/13/2024 12:35:58 AM <Johanny Villavicencio MD - Last Filed: 07/16/24 23:53> ECG Data Attestation: I personally reviewed and interpreted this ECG as follows: <Johanny Villavicencio MD - Last Filed: 07/16/24 23:53> Prior ECG tracings: available for review <Johanny Villavicencio MD - Last Filed: 07/16/24 23:53> Interpretation: Comparison EKG 06/26/2024. Sinus rhythm, rate of 110. No significant ST or T-wave abnormalities. Unchanged from 06/26 but improved from 06/30. Normal intervals and axis otherwise. Stable EKG. <Johanny Villavicencio MD - Last Filed: 07/16/24 23:53> Discharge Plan Discharge Clinical Impression: Pneumonia, Pleural effusion associated with pulmonary infection, SIRS (systemic inflammatory response syndrome), Anemia <Johanny Villavicencio MD - Last Filed: 07/16/24 23:53> Patient Disposition: Admitted As Observation <Johanny Villavicencio MD - Last Filed: 07/16/24 23:53> Discharge Location: [facility] <Johanny Villavicencio MD - Last Filed: 07/16/24 23:53> Condition: Unchanged <Johanny Villavicencio MD - Last Filed: 07/16/24 23:53>
[2024-07-12 23:25] LABS: Appearance Urine Cloudy (Clear); Bilirubin Urine Negative (Negative); Blood Urine Trace-intact (Negative); Color Urine Yellow (Yellow); Glucose Urine Negative (Negative); Ketones Urine Negative (Negative); Leukocyte Esterase Urine Negative (Negative); Nitrite Urine Negative (Negative); Protein Urine 1+ (Negative); Specific Gravity Urine >= 1.030 (1.000-1.030); Urobilinogen Urine 0.2 (0.2-1.0)
[2024-07-12 23:27] LABS: Ur HCG Qualitative* Negative (Negative)
[2024-07-12 23:33] LABS: Amorphous Sediment Urine Moderate; Bacteria Urine Few; Fine Granular Casts Urine Few; Squamous Epithelial Cell Urine Moderate (None-Few)
[2024-07-12 23:40] LABS: HCO3 VBG 28 mmol/L (21-28); PCO2 VBG 40 mmHG (40-50); PO2 VBG 44.4 mmHG (25-47); pH VBG 7.461 (7.32-7.43)
[2024-07-12 23:41] LABS: Basophils Percent Auto 0.3 % (0.0-3.0); Eosinophils Percent Auto 0.6 % (0.0-7.0); Hematocrit 30.8 % (33.0-51.0); Hemoglobin* 9.9 gm/dL (12.0-16.0); Immature Granulocytes Pct Auto 1.2 %; Lymphocytes Percent Auto 14.9 % (20-44); Mean Corpuscular HGB Conc 32 gm/dL (32-36); Mean Corpuscular Hemoglobin 29 pg (26-34); Mean Corpuscular Volume 91 fL (80-100); Monocytes Percent Auto 6.1 % (0.0-11.0); Neutrophils Percent Auto 76.9 % (42.0-72.0); Platelet Count* 509 K/uL (140-440); RDW Coefficient of Variation % 15.1 % (11.5-15.5); Red Blood Count 3.39 m/uL (4.00-5.20); White Blood Count* 15.53 K/uL (4.50-11.00)
[2024-07-12 23:43] LABS: Slide Review Reflex No
[2024-07-12] MEDS: IPRAT-ALBUT 0.5-2.5 MG/3 ML NEB 1 NEB IH (23:43)
[2024-07-12 23:45] VITALS: BP 122/82; PULSE 109; RESP 20; O2SAT 100
[2024-07-12 23:55] LABS: Albumin* 3.7 g/dL (3.3-5.0); Chloride* 105 mmol/L (96-114); Sodium* 140 mmol/L (135-149)
[2024-07-12 23:57] LABS: Bilirubin Total* 0.4 mg/dL (0.1-1.5); Creatinine* 0.5 mg/dL (0.5-1.5); Est. Creatinine Clearance* 131.74; Estimated Glomerular Filt Rate 123 ml/min
[2024-07-12 23:58] LABS: Alanine Aminotransferase* 19 U/L (4-35); Alkaline Phosphatase* 95 U/L (40-150); Anion Gap 7 mEq/L (7-15); Aspartate Amino Transferase* 22 U/L (12-35); Blood Urea Nitrogen* 19 mg/dL (5-24); Carbon Dioxide* 28 mmol/L (20-32); Glucose* 97 mg/dL (60-115)
[2024-07-12 23:59] LABS: Calcium* 8.8 mg/dL (8.4-10.6)
[2024-07-13] VITALS (9 sets, daily range): BP systolic 128–148; BP diastolic 75–95; PULSE 101–117; RESP 16–26; TEMP 36.7–36.9; O2SAT 91–96; BMI 36.7
[2024-07-13 00:15] LABS: Procalcitonin* 0.15 ng/mL (<0.50)
[2024-07-13 00:19] LABS: PCR FLU A Negative PCR FLU A (Negative); PCR FLU B Negative PCR FLU B (Negative); PCR RSV Negative PCR RSV (Negative); SARS PCR* Negative SARS-CoV-2 (Negative)
[2024-07-13] MEDS: 0.9 % SODIUM CHLORIDE 1000 ml 1,000 ML 500 ML IV (00:28)
[2024-07-13] MEDS: HYDROCODONE-ACETAMIN 5-325 MG 1 TAB PO ×2 (00:37→10:57)
[2024-07-13 00:38] LABS: C Reactive Protein* 33.5 mg/dL (0.5-1.0)
--- NOTE | 2024-07-13 01:38 | ED.NURSE ---
RN to RN report given. Pt going to room 257 via residential gas heat technician.
[2024-07-13] MEDS: VANCOMYCIN 2 GM/400 ML 2 GM/400 ML PIGGYBACK IVPB (02:05)
--- NOTE | 2024-07-13 03:41 | W.PM.TELEH&P ---
Telehealth- H&P: [facility] History of Present Illness Date Seen: 07/13/24 Chief complaint: Parapneumonic Effusion Narrative: Melinda Kumar is seen as an Interactive Telehealth visit. Melinda Kumar is a 39 year old male who presented to the emergency room with worsening shortness of breath and chest pain. Melinda has a significant past medical history of recently being hospitalized for a left sided pneumonia and was discharged on July 04 and I have extensively reviewed these records. At that time she was discharged on doxycycline and azithromycin. She had had a follow-up with her primary care physician 2 days ago and with her ongoing shortness of breath and continued leukocytosis, she was given a prescription for levofloxacin and she had started taking that earlier today. Unfortunately, she continued to have worsening shortness of breath along with quite severe left-sided chest pain and she presented to the emergency room where she did have a workup including a CT scan of the chest which unfortunately showed a worsening left-sided pleural effusion consistent with pleuritis and possible empyema. With her uncontrolled pain and possible need for further evaluation such as a thoracentesis, she is currently being admitted to the medical service for further evaluation and treatment. At the time I am seeing Melinda, she does confirm the above history. She states that she has had worsening chest pain, especially with deep breathing over the last 24 hours. She feels that she has had only mild fevers, if any. She denies any abdominal pain. She denies any recent dark or tarry stools but states that she has experienced black stools during her last hospitalization. She otherwise denies any other acute complaints or problems at the time I am seeing her. Review of Systems Narrative: Please see HPI for details. Extensive review of systems was done and is otherwise negative. Const: Denies: fever or chills Cardio: Reports: chest pain and shortness of breath with exertion; Denies: shortness of breath when lying down Resp: Reports: shortness of breath GI: Denies: abdominal pain, nausea, vomiting, diarrhea or blood in stool [facility] Medical History Intervertebral disc disorder with radiculopathy of lumbar region ?M51.16 - Intervertebral disc disorders with radiculopathy, lumbar region (ICD-10) Low back pain ?M54.50 - Low back pain, unspecified (ICD-10) Major depressive disorder ?F32.9 - Major depressive disorder, single episode, unspecified (ICD-10) Anxiety ?F41.9 - Anxiety disorder, unspecified (ICD-10) Herpes zoster ?B02.9 - Zoster without complications (ICD-10) Iron deficiency anemia ?D50.9 - Iron deficiency anemia, unspecified (ICD-10) Hypertension ?I10 - Essential (primary) hypertension (ICD-10) Surgical History History of hysterectomy ?Z90.710 - Acquired absence of both cervix and uterus (ICD-10) Social History What is your current living situation?: I presently have a place to live Problems where you live: no known problems Problems where you live details: N/A In the past 12 months, utilities in danger of being shut off: no In past 12 months, lack of transportation kept you from medical appts, meetings, work, or getting things needed for daily living: no In the past 12 mos, have been you worried that your food would run out before you had money to buy more?: never true In the past 12 mos, the food you bought just didn't last and you didn't have money to buy more?: never true Highest level of school completed/degree received: high school graduate Smoking Status: Former smoker What tobacco products do you use: cigarettes Smoking quit date/years: <= 15 years ago Do you use any of these nicotine containing products: None Nicotine containing products detail: 2 weeks Second hand tobacco smoke exposure: No How often do you have a drink containing alcohol: monthly or less How often do you have six or more drinks on one occasion: Never AUDIT-C Alcohol total score: 1 Non-prescribed substance use: denies use Caffeine: Yes (Mtn Kajal 1-2 daily) How often does anyone, including family, friends and others, physically hurt you: never How often does anyone, including family, friends and others, insult or talk down to you: never How often does anyone, including family, friends and others, threaten you with harm: never How often does anyone, including family, friends and others, scream or curse at you: never service: No Meds Home Medications and Allergies Home Medications ?Medication ?Instructions ?Recorded ?Confirmed ?Type albuterol sulfate 2.5 mg/3 mL 2.5 mg inhalation Q4H PRN wheezing 08/17/23 06/30/24 History (0.083 %) solution for nebulization albuterol sulfate 90 mcg/actuation 2 puff inhalation Q4H PRN wheezing 08/17/23 06/30/24 History aerosol inhaler (Ventolin HFA) bupropion HCl 150 mg 24 hr tablet, 150 mg PO QAM 08/17/23 06/30/24 History extended release bupropion HCl 300 mg 24 hr tablet, 300 mg PO QAM 08/17/23 06/30/24 History extended release cholecalciferol (vitamin D3) 50 50 mcg PO DAILY 08/17/23 06/30/24 History mcg (2,000 unit) capsule elagolix 150 mg tablet (Orilissa) 150 mg PO DAILY 08/17/23 06/30/24 History fluticasone propionate 115 2 puff inhalation Q12H 08/17/23 06/30/24 History mcg-salmeterol 21 mcg/actuation HFA inhaler lisinopril 10 mg tablet 10 mg PO DAILY 08/17/23 06/30/24 History lorazepam 0.5 mg tablet 0.5 mg PO DAILY PRN anxiety 08/17/23 06/30/24 History pregabalin 200 mg capsule 200 mg PO 3XD 08/17/23 06/30/24 History trazodone 50 mg tablet 50 - 200 mg PO HS PRN insomnia 08/17/23 06/30/24 History azithromycin 250 mg tablet 250 mg PO DAILY 06/30/24 06/30/24 History cariprazine 4.5 mg capsule 4.5 mg PO DAILY 06/30/24 06/30/24 History (Vraylar) dextroamphetamine sulfate 15 mg 15 mg PO DAILY 06/30/24 06/30/24 History capsule,extended release dextroamphetamine-amphetamine 10 1 tab PO DAILY@1200 06/30/24 06/30/24 History mg tablet duloxetine 60 mg capsule,delayed 60 mg PO DAILY 06/30/24 06/30/24 History release ipratropium 0.5 mg-albuterol 3 mg 3 ml inhalation Q4H PRN 06/30/24 06/30/24 History (2.5 mg base)/3 mL nebulization soln Allergies Allergy/AdvReac Type Severity Reaction Status Date / Time No Known Allergies Allergy Verified 07/13/24 00:17 Exam Narrative Exam Narrative: Physical Exam GENERAL: vital signs reviewed, well developed and nourished, in no distress HEENT: pupils are equal round and reactive to light, extraocular movements are grossly within normal limits and oral mucosa is moist. NECK: Supple without lymphadenopathy or thyromegaly according to nursing staff examination observation HEART: Regular rhythm with a slightly tachycardic rate without any rubs, murmurs or gallops. LUNGS: Decreased breath sounds on the left base compared to the right, otherwise clear to auscultation bilaterally ABDOMEN: Observation from nurse assisted exam, abdomen appears soft, nontender, and nondistended with Positive bowel sounds noted. Obesity is noted. EXTREMITIES: Strength and sensation is observed to be grossly within normal limits in the upper and lower extremities. No focal strength deficit is observed. Trace edema is noted left and right. SKIN: Observed warm and dry with color normal NEURO: Alert, awake and oriented ?3. Answers all questions appropriately. No focal neuro deficits are noted. PSYCH: Affect normal Const Vital Signs, click to edit/add: Vital Signs - 24 hr 07/12/24 22:41 07/12/24 23:13 07/12/24 23:45 Temperature 96.2 F L Pulse Rate 109 H Pulse Rate [Left Pulse Oximeter] 118 H Respiratory Rate 28 H 20 Blood Pressure 122/82 Blood Pressure [Right Upper Arm] 118/84 Pulse Oximetry 95 95 100 Oxygen Delivery Method Room Air Aerosol Mask Oxygen Flow Rate 4 07/13/24 00:01 07/13/24 00:32 07/13/24 02:19 Temperature 98.0 F Pulse Rate 117 H 110 H Pulse Rate [Left Pulse Oximeter] 110 H Respiratory Rate 18 16 26 H Blood Pressure 133/91 H 128/75 Blood Pressure [Right Upper Arm] Pulse Oximetry 93 92 96 Oxygen Delivery Method Room Air Room Air Room Air Oxygen Flow Rate 07/13/24 02:19 Temperature Pulse Rate Pulse Rate [Left Pulse Oximeter] Respiratory Rate 26 H Blood Pressure Blood Pressure [Right Upper Arm] Pulse Oximetry 96 Oxygen Delivery Method Room Air Oxygen Flow Rate Documenting provider has reviewed patient's vital signs: yes Hospitalist - H&P: Result Labs Labs: Short CBC 07/12/24 Range/Units 23:15 WBC 15.53 H (4.50-11.00) K/uL Hgb 9.9 L (12.0-16.0) gm/dL Hct 30.8 L (33.0-51.0) % Plt Count 509 H (140-440) K/uL BMP 07/12/24 23:15 Sodium 140 Potassium 4.0 Chloride 105 Carbon Dioxide 28 BUN 19 Creatinine 0.5 Glucose 97 Calcium 8.8 Liver Function 07/12/24 Range/Units 23:15 Total Bilirubin 0.4 (0.1-1.5) mg/dL AST 22 (12-35) U/L ALT 19 (4-35) U/L Alkaline Phosphatase 95 (40-150) U/L Albumin 3.7 (3.3-5.0) g/dL Urine 07/12/24 Range/Units 23:15 Urine Color Yellow (Yellow) Urine Appearance Cloudy A (Clear) Urine pH 7.0 (5.0-8.5) Ur Specific [place] >= 1.030 (1.000-1.030) Urine Protein 1+ A (Negative) Urine Glucose (UA) Negative (Negative) Imaging CT scan - chest: Radiologist's impression: Slight interval increase in size of left pleural effusion and increase in bilateral areas of atelectasis. No pulmonary embolism is appreciate Assessment and Plan Assessment and plan (1) Parapneumonic effusion: Problem comment: -as noted on CT. Outpatient follow-up Status: Acute (2) Pleural effusion associated with pulmonary infection: Status: Acute (3) SIRS (systemic inflammatory response syndrome): Status: Acute (4) Anemia: Status: Acute Plan Assessment: 1. Worsening parapneumonic effusion with possible empyema 2. Chest pain likely from #1 above consistent with pleuritic chest pain 3. Tachycardia with tachypnea and leukocytosis consistent with SIRS 4. Worsening anemia with history of iron deficiency and no obvious sign of acute active bleeding 5. Anxiety with major depressive disorder 6. Obesity 7. Hypertension Plan: At this time Melinda will be admitted to the medical service. I am concerned that she may be developing a parapneumonic empyema and will continue with IV antibiotics with plans of possible diagnostic and possibly therapeutic thoracentesis in the a.m. She does have a significant amount of chest pain which is pleuritic in nature and I will provide her with some symptomatic IV pain medications and will also ask her to do aggressive incentive spirometry to help with the noted atelectasis on CTA. She does appear to have some worsening anemia and I will continue with the proton pump inhibitor and will hold off on prescribing anti-inflammatories currently which would be my normal therapy with severe pleuritic chest pain. I will continue with the prednisone that she was given upon discharge and will need to watch closely for any signs or symptoms of acute GI bleeding. I will ask for iron studies as she does have a history of deficiency anemia. I will put on SCDs for DVT prophylaxis. I will continue her medications for depression and anxiety. I will also continue her medications for her hypertension. I have discussed this plan with Melinda and she is agreeable to proceed. Will continue to follow closely from a medical standpoint. CODE STATUS was discussed with Melinda and she does wish to be a full code. This will be ordered in her chart as per her wishes. Telehealth: Statement Statement Telehealth Visit: Today's History and Physical is provided via interactive telehealth by Dani Tsai MD.? Patient is located at [facility].? Provider is located at [facility].? Nursing staff assisted with the patient's exam. The visit being done today meets criteria for a telehealth visit and the patient or patient?s parent/guardian is aware the visit is a telehealth visit. Camera Start Time: 02:57 Camera End Time: 03:14
[2024-07-13] MEDS: HYDROmorphone 0.5 mg/0.5 ml inj IVP ×4 (04:54→17:25)
[2024-07-13] MEDS: cefTRIAXone 2 GM in 0.9 % SODIUM CHLORIDE Mini-bag 100 ML IVPB (04:54)
[2024-07-13] MEDS: CLINDAMYCIN 900 MG/50 ML-D5W 900 MG/50 ML PIGGYBACK 100 MG IVPB ×2 (05:41→14:17)
[2024-07-13] MEDS: PANTOPRAZOLE SODIUM 40 MG INJ IVP (06:38)
[2024-07-13 06:41] LABS: Basophils Percent Auto 0.3 % (0.0-3.0); Eosinophils Percent Auto 1.3 % (0.0-7.0); Hematocrit 27.6 % (33.0-51.0); Hemoglobin* 8.7 gm/dL (12.0-16.0); Immature Granulocytes Pct Auto 0.2 %; Lymphocytes Percent Auto 15.8 % (20-44); Mean Corpuscular HGB Conc 32 gm/dL (32-36); Mean Corpuscular Hemoglobin 29 pg (26-34); Mean Corpuscular Volume 92 fL (80-100); Monocytes Percent Auto 6.7 % (0.0-11.0); Neutrophils Percent Auto 75.7 % (42.0-72.0); Platelet Count* 678 K/uL (140-440); RDW Coefficient of Variation % 15.3 % (11.5-15.5); Red Blood Count 3.01 m/uL (4.00-5.20); White Blood Count* 12.63 K/uL (4.50-11.00)
[2024-07-13 06:46] LABS: Slide Review Reflex No
[2024-07-13 07:02] LABS: Iron* 14 ug/dL (37-170)
[2024-07-13 07:11] LABS: Percent Iron Saturation 7 % (20-50); Total Iron Binding Capacity 195 ug/dL (265-497)
--- NOTE | 2024-07-13 07:24 | CRLHL7_ITS ---
For Patients: As a result of the Cures Act, medical imaging exams and procedure reports are released immediately into your electronic medical record. You may view this report before your referring provider. If you have questions, please contact your health care provider. INDICATION: Left pleural effusion COMPARISON: CT 07/13/2024, radiograph 06/26/2024 TECHNIQUE: PA and lateral 2 view chest. Left lateral decubitus chest radiograph. FINDINGS: Lung volumes are good. Left greater than right consolidations in opacities with some additional linear bands of atelectasis. No pulmonary edema. Small left hydropneumothorax is seen on the PA and lateral view. Does not appear to shift substantially on the decubitus radiograph. No right pleural effusion. No right pneumothorax. No pneumomediastinum. Normal cardiomediastinal silhouette. Bones: Normal for age. IMPRESSION: Left hydropneumothorax without significant redistribution on decubitus imaging, which suggests loculation. Dictated by Iram Valentin MD @ 07/13/2024 8:57:33 AM (Electronically Signed)
[2024-07-13 07:51] LABS: C Reactive Protein* 28.3 mg/dL (0.5-1.0)
[2024-07-13] MEDS: SODIUM CHLORIDE 0.9 % (FLUSH) 10 ML SYRINGE 5 ML IVF ×2 (08:25→09:21)
[2024-07-13] MEDS: buPROPion XL 150 MG TABLET 300 MG PO (09:19)
[2024-07-13] MEDS: buPROPion XL 150 MG TABLET PO (09:19)
[2024-07-13] MEDS: guaiFENesin 600 MG TAB.ER.12H 1200 MG PO (09:20)
[2024-07-13] MEDS: lisinopriL 10 MG TABLET PO (09:20)
[2024-07-13] MEDS: DULOXETINE 30 MG CAPSULE DR 60 MG PO (09:20)
[2024-07-13] MEDS: predniSONE 20 MG TABLET 40 MG PO (09:21)
[2024-07-13] MEDS: PREGABALIN 100 MG CAPSULE 200 MG PO ×2 (09:25→14:17)
[2024-07-13] MEDS: ACETAMINOPHEN 325 MG TABLET 650 MG PO (10:57)
[2024-07-13] MEDS: VANCOMYCIN 1.5 GM/300 ML 1.5 GM/300 ML PIGGYBACK IVPB (15:14)
--- NOTE | 2024-07-13 15:31 | PC.NURSE ---
Nursing Care Hours: [id number] Pt this shift calm and cooperative, alert and oriented. VSS on RA. LS clear upper bowie, diminished mid lobes, absent LLL. Minor non productive cough. Encouraged to use IS. Pain LLL 5-8/10, treated with oral and IV pain meds. BM this shift, pt denies redness or black tarry color. Hgb downtrending, pt denies lightheadedness or dizziness. No appetite and declining meals. Taking in PO fluids. Independent ambulation in the room, SCD left off d/t pain to left side. Tachypneic and tachycardic noted without adverse effects.
--- NOTE | 2024-07-13 16:49 | P.DS_ITS ---
DS: Providers Provider Date Seen: 07/13/24 Date of admission: 07/13/24 14:51 Primary care physician: Prudence Mena PA-C Admitting Clinician: Butch Ludwig MD Attending Physician on discharge: Dieter Cope MD Date of Discharge: 07/13/24 DS: Diagnosis Discharge Diagnosis (1) Empyema of pleural space: Status: Acute Problem details: -community-acquired pneumonia diagnosed and of June 2024 required inpatient treatment, with presumed left parapneumonic effusion noted on admission -evolving pleuritic pain since discharge from hospital in early July 2024 -07/13/2024 CT scan of chest with PE protocol demonstrates no pulmonary embolism but evolving loculated pleural effusion on the left with thickened pleura consistent with high likelihood of empyema -was able to make arrangements for patient to be transferred for additional evaluation and treatment at [facility] in [facility], Dr. Bauman, thoracic surgeon, accepts the patient in transfer (2) Pleural effusion associated with pulmonary infection: Status: Acute (3) SIRS (systemic inflammatory response syndrome): Status: Acute (4) Anemia: Status: Acute DS: Summary Hospital Course Hospital Course: History of present illness on admission: ?39 year old male who presented to the emergency room with worsening shortness of breath and chest pain. Melinda has a significant past medical history of recently being hospitalized for a left sided pneumonia and was discharged on July 04 and I have extensively reviewed these records. At that time she was discharged on doxycycline and azithromycin. She had had a follow-up with her primary care physician 2 days ago and with her ongoing shortness of breath and continued leukocytosis, she was given a prescription for levofloxacin and she had started taking that earlier today. Unfortunately, she continued to have worsening shortness of breath along with quite severe left-sided chest pain and she presented to the emergency room where she did have a workup including a CT scan of the chest which unfortunately showed a worsening left-sided pleural effusion consistent with pleuritis and possible empyema. With her uncontrolled pain and possible need for further evaluation such as a thoracentesis, she is currently being admitted to the medical service for further evaluation and treatment. At the time I am seeing Melinda, she does confirm the above history. She states that she has had worsening chest pain, especially with deep breathing over the last 24 hours. She feels that she has had only mild fevers, if any. She denies any abdominal pain. She denies any recent dark or tarry stools but states that she has experienced black stools during her last hospitalization. She otherwise denies any other acute complaints or problems at the time I am seeing her.? I assess the patient later in the morning on 07/13/2024 and examined her and reviewed her past records and current radiographics CT scans, noting the thic kened pleura and seemingly loculated left pleural effusion. I obtained the PA, lateral, lateral decubitus chest x-rays and demonstrated that the left-sided pleural effusion does not layer and appears to be loculated. Reviewed my impression with the patient about my suspicion of evolving empyema. Patient expressed understanding. In time I was able to make arranges for the patient to be transferred to higher level of care for further assessment and management including possible VATS procedure. Patient is agreeable. Status at Discharge Functional status at discharge: independent ambulation Overall status at discharge: patient is not back to baseline Time Spent with Patient Time attestation: Total time spent providing and/or coordinating discharge services: Time spent: Greater than 30 minutes Exam Narrative: Exam Narrative: Examined patient in her hospital room. Appears uncomfortable. Diaphoretic. Resting respiratory rate 20 2-26 breaths per minute. Decreased breath sounds left base with ergophny and dullness to percussion in left base. Mild tachycardia. No JVD hepatojugular reflux. No peripheral edema. Const: Vital Signs, click to edit/add: Vital Signs - 24 hr 07/12/24 22:41 07/12/24 23:13 07/12/24 23:45 Temperature 96.2 F L Pulse Rate 109 H Pulse Rate [Left P ulse Oximeter] 118 H Respiratory Rate 28 H 20 Blood Pressure 122/82 Blood Pressure [Le ft Arm] Blood Pressure [Ri ght Upper Arm] 118/84 Pulse Oximetry 95 95 100 Oxygen Delivery Me thod Room Air Aerosol Mask Oxygen Flow Rate 4 07/13/24 00:01 07/13/24 00:32 07/13/24 02:19 Temperature 98.0 F Pulse Rate 117 H 110 H Pulse Rate [Left P ulse Oximeter] 110 H Respiratory Rate 18 16 26 H Blood Pressure 133/91 H 128/75 Blood Pressure [Le ft Arm] Blood Pressure [Ri ght Upper Arm] Pulse Oximetry 93 92 96 Oxygen Delivery Me thod Room Air Room Air Room Air Oxygen Flow Rate 07/13/24 02:19 07/13/24 03:19 07/13/24 06:48 Temperature Pulse Rate Pulse Rate [Left P ulse Oximeter] 110 H Respiratory Rate 26 H 22 Blood Pressure Blood Pressure [Le ft Arm] Blood Pressure [Ri ght Upper Arm] Pulse Oximetry 96 95 Oxygen Delivery Me thod Room Air Oxygen Flow Rate 07/13/24 06:52 07/13/24 10:47 07/13/24 16:02 Temperature 98.1 F 98.5 F Pulse Rate Pulse Rate [Left P ulse Oximeter] 101 H 111 H 112 H Respiratory Rate 22 21 20 Blood Pressure Blood Pressure [Le ft Arm] 128/87 145/95 H 148/93 H Blood Pressure [Ri ght Upper Arm] Pulse Oximetry 93 93 91 Oxygen Delivery Me thod Room Air Room Air Oxygen Flow Rate DS: Data Data Completed and Pending Labs on day of discharge: Labs from last 24 hours 07/13/24 07/12/24 07/12/24 05:40 23:30 23:15 WBC 12.63 H 15.53 H RBC 3.01 L 3.39 L Hgb 8.7 L 9.9 L Hct 27.6 L 30.8 L MCV 92 91 MCH 29 29 MCHC 32 32 RDW Coeff of Mayank 15.3 15.1 Plt Count 678 H 509 H Neut % (Auto) 75.7 H 76.9 H Lymph % (Auto) 15.8 L 14.9 L [place] % (Auto) 6.7 6.1 Eos % (Auto) 1.3 0.6 Baso % (Auto) 0.3 0.3 Neut # (Auto) 9.60 H 11.90 H Lymph # (Auto) 2.00 2.30 [place] # (Auto) 0.80 0.90 Eos # (Auto) 0.20 0.10 Baso # (Auto) 0.00 0.00 Abs Immat Gran (auto) 0.00 0.20 Imm/Tot Granulo (auto) 0.2 1.2 VBG pH 7.461 H VBG pCO2 40 VBG pO2 44.4 VBG HCO3 28 Sodium 140 Potassium 4.0 Chloride 105 Carbon Dioxide 28 Anion Gap 7 BUN 19 Creatinine 0.5 Estimated Creat Clear 131.74 Estimated GFR 123 Glucose 97 Lactate 1.0 Calcium 8.8 Iron 14 L TIBC 195 L % Saturation 7 L Total Bilirubin 0.4 AST 22 ALT 19 Alkaline Phosphatase 95 C-Reactive Protein 28.3 H 33.5 H Total Protein 7.0 Albumin 3.7 Procalcitonin 0.15 Urine Color Yellow Urine Appearance Cloudy A Urine pH 7.0 Ur Specific [place] >= 1.030 Urine Protein 1+ A Urine Glucose (UA) Negative Urine Ketones Negative Urine Blood Trace-intact A Urine Nitrite Negative Urine Bilirubin Negative Urine Urobilinogen 0.2 Ur Leukocyte Esterase Negative Urine RBC 2-5 A Urine WBC 5-10 A Ur Squamous Epith Cells Moderate A Amorphous Sediment Moderate A Urine Bacteria Few A Fine Granular Casts Few A Urine HCG, Qual Negative SARS-CoV-2 (PCR) Negative SARS-CoV-2 Influenza Type A (PCR) Negative PCR FLU A Influenza Type B (PCR) Negative PCR FLU B RSV (PCR) Negative PCR RSV POC Troponin I 0.00 L Preliminary micro results at discharge 07/12/24 23:15 Urine Culture - Preliminary Urine,Clean Catch Culture in Progress Imaging CT scan - chest: Attestation: I have reviewed the pertinent imaging results. Radiologist's impression: Comparison: CTA chest performed 06/30/2024 Findings: Pulmonary arteries: No pulmonary embolism appreciated. Lungs: Slightly increased size of left pleural effusion. Increased bibasilar atelectasis. No pneumothorax. Mediastinum: No acute abnormality appreciated. Lymph nodes: No gross lymphadenopathy. Upper abdomen: Multifocal right renal scarring. Soft tissues: No acute abnormality appreciated. Bones: No acute abnormality appreciated. Impression: Slight interval increase in size of left pleural effusion and increase in bilateral areas of atelectasis. No pulmonary embolism is appreciated. Chest x-ray: Attestation: I have reviewed the pertinent imaging results. Radiologist's impression: Lung volumes are good. Left greater than right consolidations in opacities with some additional linear bands of atelectasis. No pulmonary edema. Small left hydropneumothorax is seen on the PA and lateral view. Does not appear to shift substantially on the decubitus radiograph. No right pleural effusion. No right pneumothorax. No pneumomediastinum. Normal cardiomediastinal silhouette. Bones: Normal for age. IMPRESSION: Left hydropneumothorax without significant redistribution on decubitus imaging, which suggests loculation. Discharge Plan Discharge Disposition: [facility] Hospital Discharge Location: [facility] Date of Admission: 07/13/24 14:51 Attending Provider on Discharge: Dieter Cope Primary Care Provider: Prudence Mena Condition: Unchanged Discharge Orders: Transfer of Care to Other Hospital (ORDER); Ordered 07/13/24 Ordered By: Dieter Cope Additional Instructions: Accepted by Dr. Mtz, Thoracic Surgeon, [place] Transfer via ALS ambulance Oxygen: Yes Oxygen Delivery Method: Nasal Cannula Oxygen Flow Rate: 2 l/min Urinary Catheter: No Services not available here: Thoracic Surgery
--- NOTE | 2024-07-13 19:45 | PC.NURSE ---
shift note: vss stable. Nurse to nurse given to Zo @ [facility] via phone prior to ems transfer. Belongings sent with pt at transfer. IV in place & patent on transfer.
== END 2024-07-13 18:15 | disposition short-term general hospital (02) | DRG 137 ==
LOC: ED 07-13 01:20 → MEDSURG 07-13 01:41
PROVIDERS: Internal Medicine; Admitting Provider Internal Medicine; Emergency Provider Family Medicine; PCP Internal Medicine; Visit Provider Internal Medicine
DX: J86.9 Pyothorax without fistula (principal); J18.9 Pneumonia, unspecified organism; J91.8 Pleural effusion in other conditions classified elsewhere; D64.9 Anemia, unspecified; M51.16 Intervertebral disc disorders with radiculopathy, lumbar region; F32.9 Major depressive disorder, single episode, unspecified; F41.9 Anxiety disorder, unspecified; I10 Essential (primary) hypertension; D50.9 Iron deficiency anemia, unspecified; E66.9 Obesity, unspecified; Z87.891 Personal history of nicotine dependence; Z68.36 Body mass index [BMI] 36.0-36.9, adult
CPT/HCPCS: 36415; 71046; 71275; 80053; 81001; 81003; 81025; 82803; 83540; 83550; 83605; 84145; 84484; 85025; 86140; 87040; 87086; 87631; 93005; 94761; 99284; 99285; A9270; G0378; J0696; J0736; J1171; J2470; J3372; J7030; J7512; Q9967

== ENCOUNTER 2024-07-13 18:16 | Outpatient (CLI) | payer BC, SELFPAY | END 2024-07-13 18:17 | disposition home or self-care (01) | LOC: AMB 07-30 08:51 | PROVIDERS: PCP Internal Medicine; Visit Provider Emergency Medicine | DX: J18.9 Pneumonia, unspecified organism (principal); R65.10 Systemic inflammatory response syndrome (SIRS) of non-infectious origin without acute organ dysfunction; J86.9 Pyothorax without fistula; D64.9 Anemia, unspecified; K92.2 Gastrointestinal hemorrhage, unspecified | CPT/HCPCS: A0425; A0433 ==

== ENCOUNTER 2024-07-28 21:08 | Emergency (ER) | payer BC, SELFPAY ==
--- OUTSIDE RECORDS SUMMARY | 2024-07-28 21:12 | XMS_ITS | Clinical Summary ---
Author Organization [facility] Address [place], [place] [address] Care Team Providers Care Concrete Worker Name Role Phone Kevin Berrios MD Unavailable [phone] Claudia Morillo MD Primary Care Provider Allergies [...] Overview (07/04/2017): 06/13/17 Signed .Kristen Landeros DNP, ASSISTED LIVING HOME DIRECTOR, POLICY INTERN/psyciatry/hc Acute postoperative pain Acute postoperative abdominal pain [...] ve Non-Reacti ve 11/11/2020 8:33 PM CDT [facility] Comment:HIV-1 p24 and HIV-1/ HIV-2 Ab not detected. Blood BLOOD SPECIMEN / Unknown Butterfly / Unknown 11/11/2020 1:29 PM CDT 11/11/2020 1:29 PM CDT us Claudia Morillo MD SEND OUTS Final Resul t [facility] [address] [place] [phone], * ANTI HCV (03/20/2019 2:40 PM CDT) HEPATITIS C ANTIBODY Non-React salomón Non-React salomón 03/21/2019 11:42 PM CDT [facility] Comment:Antibodies to HCV no t detected; does not exclude the possibility of exposure to HCV. Blood BLOOD SPECIMEN / Unknown Venipuncture / Unknown 03/20/2019 2:40 PM CDT 03/20/2019 2:40 PM CDT us Claudia Morillo MD SEND OUTS Final Resul t Performing Organization Address City/[facility]/ZIP Co de Phone Number [facility] [address] [place] [address], from Last 3 Months or Most Recently Relevant to Health Maintenance Insurance [facility] Advance Directives * Full Code (Latest Code [...] 3:10 PM 04/16/2019 8:58 PM Care Teams Concrete Worker Relationship Specialty Start Date End Date Claudia Morillo MD [address] [place] [address] PCP - General Family Practice 03/04/22 Kevin Berrios MD Surgery - Urology 02/27/20
--- OUTSIDE RECORDS SUMMARY | 2024-07-28 21:12 | XMS_ITS ---
Author Organization [facility] Address [address] [place] [address] Care Team Providers Care Hack Saw Operator Name Role Phone Prudence Mena P.A.-C. Primary Care Pro vider OPAT/COpAT Program Status:Enrolled (Active) Start date:07/18/2024 Enrollment date:07/20/2024 Related service episodes:Adult OPAT Service Episode (Active) Continued Care and Services Coordination
--- OUTSIDE RECORDS SUMMARY | 2024-07-28 21:12 | XMS_ITS ---
Author Organization [facility] Address [address] [place] [address] Care Team Providers Care Lead Software Test Engineer Name Role Phone Prudence Mena P.A.-C. Primary Care Pro vider Adult OPAT Service Episode Status:Enrolled (Active) Start date:07/18/2024 Enrollment date:07/20/2024 Related program episode:OPAT/COpAT Program (Active) Continued Care and Services Coordination
--- OUTSIDE RECORDS SUMMARY | 2024-07-28 21:13 | XMS_ITS | Encounter Summary ---
Author Organization [facility] Address [address] [place] [address] Care Team Providers Care Seafood Clerk Name Role Phone Prudence Mena P.A.-CDmitry Primary Care Pro vider Encounter Details Date Type Department Care Team (Latest Contact Info) Description 07/11/2024 11:08 AM DIRECTOR INDUSTRIAL RELATIONS - 07/11/2024 11:16 AM [facility] Encounter Department of Laboratory Medicine in [place], [place] [address] [place] [phone] Prudence Mena MPAS PDmitryA.-CDmitry [address] [place] [phone] Pneumonia Discharge Disposition: Home or Self Care Social History Tobacco Use Types Packs/Day Years Used Date Smoking Tobacco: Former Cigarettes 1.5 0.1 S tarted: 06/21/2024 Passive Smoke Exposure: Past Smokeless Tobacco: Never Alcohol Use Standard Drinks/Week Comments Yes 0 (1 standard drink = 0.6 oz pur e alcohol) socially [facility] Utilities Answer Date Recorded In the past 12 months has e electric, gas, oil, or water [employer] threatened to shut off services in your [...] Never 07/27/2022 How often do you attend catholic or yarsanism serv ices? Never 07/27/2022 Do you belong to any clubs o r organizations such as catholic groups, unions, fraternal or athletic groups, or [...] Answer Date Recorded PHQ-2 Score 6 07/10/2024 [facility] [place] [facility] Occupat ional Health - Occupational Stress [...] mg tablet Take 1,000 mg by mouth every 6 (six) hours as needed for pain. 08/13/2019 albuterol 2.5 mg /3 mL nebulizer [...] ER capsule Take 1 capsule by mouth every morning. 11/30/2023 dextroamphetamin e-amphetamine (ADDERALL) 10 mg tablet Take 1 tablet by mouth between 12pm and 2pm daily* 11/01/2023 DME CPAPIndications: Obstructive Sleep Apnea Adult DME Order 1 each 01/25/2024 DULoxetine (CYMBALTA) [address] capsule Take 60 mg by mouth every morning. 03/31/2023 elagolix (Orilissa) 150 mg tablet tablet [...] daily for 10 days. 16 g 06/11/2024 ipratropium-albu teroL (DuoNeb) 0.5-2.5 mg/3 mL nebulizer [...] 0.5 mg tablet Take 0.5 mg by mouth daily as needed for anxiety. 08/17/2023 multivitamin capsule Take 1 capsule by [...] g 3 03/05/2024 Vraylar 4.5 mg capsule Take 4.5 mg by mouth at bedtime. 10/11/2022 fluticasone propionate (FLOVENT DISKUS) 100 mcg/actuation diskus inhaler 06/29/2018 documented as of this encounter Plan of Treatment Upcoming Encounters Date Type Department Care Team (Late st Contact Info) Description 07/29/2024 10:00 AM DIRECTOR INDUSTRIAL RELATIONS Infusion Department of Infusion Therapy in [address] [phone] Melinda Isaac, FRED, C.N.P. [address] [place] [phone] 07/29/2024 2:20 PM DIRECTOR INDUSTRIAL RELATIONS Office Visit Department of Community Internal Medicine in [address] [place] [phone] Prudence Mena, LATONIAS, P.A.-C. [address] [place] [phone] 07/30/2024 9:00 AM DIRECTOR INDUSTRIAL RELATIONS Infusion Department of Infusion Therapy in [address] [phone] Melinda Isaac APRN, C.N.P. [address] [place] [phone] 07/31/2024 8:00 AM DIRECTOR INDUSTRIAL RELATIONS Infusion Department of Infusion Therapy in [address] [phone] Melinda Isaac APRN, C.N.P. [address] [place] [phone] 08/01/2024 7:00 AM DIRECTOR INDUSTRIAL RELATIONS Infusion Department of Infusion Therapy in [address] [phone] Melinda Isaac APRN, C.N.P. [address] [place] [phone] 08/02/2024 9:00 AM DIRECTOR INDUSTRIAL RELATIONS Infusion Department of Infusion Therapy in [address] [phone] Melinda Isaac APRN, C.N.P. [address] [place] [phone] 08/02/2024 12:30 PM DIRECTOR INDUSTRIAL RELATIONS Clinical Communication Virtual Review in [place], [place] [address] [place] [phone] 08/03/2024 9:00 AM DIRECTOR INDUSTRIAL RELATIONS Infusion Department of Infusion Therapy in [address] [phone] Melinda Isaac APRN, C.N.P. [address] [place] [phone] 08/04/2024 9:00 AM DIRECTOR INDUSTRIAL RELATIONS Infusion Department of Infusion Therapy in [address] [phone] Melinda Isaac APRN, C.N.P. [address] [place] [phone] 08/05/2024 8:45 AM DIRECTOR INDUSTRIAL RELATIONS Appointment Department of Radiology, [facility], in [place], [place] [address] [place] [phone] Kayleigh Small M.D. [address] [place] [phone] 08/05/2024 9:00 AM DIRECTOR INDUSTRIAL RELATIONS Infusion Department of Infusion Therapy in [address] [phone] Melinda Isaac APRN, C.N.P. [address] [place] [phone] 08/05/2024 11:00 AM DIRECTOR INDUSTRIAL RELATIONS Office Visit Section of Infectious Diseases in [place], [place] [address] [place] [phone] Kayleigh Small M.D. [address] [place] [phone] 08/06/2024 9:00 AM DIRECTOR INDUSTRIAL RELATIONS Infusion Department of Infusion Therapy in [address] [phone] Melinda Isaac APRN, C.N.P. [address] [place] [phone] 08/07/2024 9:00 AM DIRECTOR INDUSTRIAL RELATIONS Infusion Department of Infusion Therapy in [address] [phone] Melinda Isaac APRN, C.N.P. [address] [place] [phone] 08/08/2024 9:00 AM DIRECTOR INDUSTRIAL RELATIONS Infusion Department of Infusion Therapy in [address] [phone] Melinda Isaac APRN, C.N.P. [address] [place] [phone] 08/09/2024 9:00 AM DIRECTOR INDUSTRIAL RELATIONS Infusion Department of Infusion Therapy in [address] [address] Melinda Isaac APRN, C.N.P. [address] [place] [phone] 08/10/2024 9:00 AM DIRECTOR INDUSTRIAL RELATIONS Infusion Department of Infusion Therapy in [address] [address] Melinda Isaac APRN, C.N.P. [address] [place] [phone] 08/11/2024 9:00 AM DIRECTOR INDUSTRIAL RELATIONS Infusion Department of Infusion Therapy in [address] [address] Melinda Isaac APRN, C.N.P. [address] [place] [phone] 08/12/2024 9:00 AM DIRECTOR INDUSTRIAL RELATIONS Infusion Department of Infusion Therapy in [address] [address] Melinda Isaac APRN, C.N.P. [address] [place] [phone] 08/13/2024 8:30 AM DIRECTOR INDUSTRIAL RELATIONS Infusion Department of Infusion Therapy in [address] [address] Melinda Isaac APRN, C.N.P. [address] [place] [phone] 08/14/2024 9:00 AM DIRECTOR INDUSTRIAL RELATIONS Infusion Department of Infusion Therapy in [address] [phone] Melinda Isaac APRN, C.N.P. [address] [place] [phone] 08/15/2024 9:00 AM DIRECTOR INDUSTRIAL RELATIONS Infusion Department of Infusion Therapy in [address] [phone] Melinda Isaac APRN, C.N.P. [address] [place] [phone] 08/16/2024 9:00 AM DIRECTOR INDUSTRIAL RELATIONS Infusion Department of Infusion Therapy in [address] [address] Melinda Isaac APRN, C.N.P. [address] [place] [phone] 08/17/2024 9:00 AM DIRECTOR INDUSTRIAL RELATIONS Infusion Department of Infusion Therapy in [address] [phone] Melinda Isaac APRN, C.N.P. [address] [place] [phone] 08/18/2024 9:00 AM DIRECTOR INDUSTRIAL RELATIONS Infusion Department of Infusion Therapy in [address] [phone] Melinda Isaac APRN, C.N.P. [address] [place] [phone] documented as of this encounter Procedures Procedure Name Priority Date/Time Associated Diagnosis Comments CBC WITH DIFFERENTIAL, B Routine 07/11/2024 11:17 AM DIRECTOR INDUSTRIAL RELATIONS Pneumonia BASIC METABOLIC PANEL, S/P Routine 07/11/2024 11:17 AM DIRECTOR INDUSTRIAL RELATIONS Pneumonia documented in this encounter Results * (ABNORMAL) Basic Metabolic Panel (07/11/2024 11:17 AM DIRECTOR INDUSTRIAL RELATIONS) Potassium, P 3.6 3.6 - 5.2 mmol/L 07/11/2024 1:43 PM DIRECTOR INDUSTRIAL RELATIONS OWAT Sodium, P 141 135 - 145 mmol/L 07/11/2024 1:43 PM DIRECTOR INDUSTRIAL RELATIONS OWAT Chloride, P 104 98 - 107 mmol/L 07/11/2024 1:43 PM DIRECTOR INDUSTRIAL RELATIONS OWAT Bicarbonate, P 27 22 - 29 mmol/L 07/11/2024 1:43 PM DIRECTOR INDUSTRIAL RELATIONS OWAT Anion Gap, P 10 7 - 15 07/11/2024 1:43 PM DIRECTOR INDUSTRIAL RELATIONS OWAT BUN (Blood Urea Nitrogen), P 18 6 - 21 mg/dL 07/11/2024 1:43 PM DIRECTOR INDUSTRIAL RELATIONS OWAT Creatinine 0.53(L) 0.59 - 1.04 mg/dL 07/11/2024 1:43 PM DIRECTOR INDUSTRIAL RELATIONS OWAT Estimated GFR (eGFR) >90 >=60 mL/min/BSA 07/11/2024 1:43 PM DIRECTOR INDUSTRIAL RELATIONS OWAT Comment: Estimated GFR calculated using the 2020 CKD_EPI creatinine equation. Calcium, Total, P 9.0 8.6 - 10.0 mg/dL 07/11/2024 1:43 PM DIRECTOR INDUSTRIAL RELATIONS OWAT Glucose, P 126 70 - 140 mg/dL 07/11/2024 1:43 PM DIRECTOR INDUSTRIAL RELATIONS OWAT Blood (Blood, Venous) 07/11/2024 11:17 AM DIRECTOR INDUSTRIAL RELATIONS 07/11/2024 12:57 PM DIRECTOR INDUSTRIAL RELATIONS us Prudence TO, P.A.-C. LAB BLOOD ADD-ON Final Result [facility] [address] [place] [address], [facility] OWAT [facility] in [place] [address] [place] [address] * (ABNORMAL) CBC with Differential, Blood (07/11/2024 11:17 AM DIRECTOR INDUSTRIAL RELATIONS) Hemoglobin 10.0(L) 11.6 - 15.0 g/dL 07/11/2024 11:25 AM DIRECTOR INDUSTRIAL RELATIONS FB60 Hematocrit 30.7(L) 35.5 - 44.9 % 07/11/2024 11:25 AM DIRECTOR INDUSTRIAL RELATIONS FB60 Erythrocytes 3.39(L) 3.92 - 5.13 x10(12)/L 07/11/2024 11:25 AM DIRECTOR INDUSTRIAL RELATIONS FB60 MCV 90.6 78.2 - 97.9 fL 07/11/2024 11:25 AM DIRECTOR INDUSTRIAL RELATIONS FB60 RBC Distrib Width 14.9 12.2 - 16.1 % 07/11/2024 11:25 AM DIRECTOR INDUSTRIAL RELATIONS FB60 Platelet Count 678(H) 157 - 371 x10(9)/L 07/11/2024 11:25 AM DIRECTOR INDUSTRIAL RELATIONS FB60 Leukocytes 14.7(H) 3.4 - 9.6 x10(9)/L 07/11/2024 11:25 AM DIRECTOR INDUSTRIAL RELATIONS FB60 Neutrophils 11.68(H) 1.56 - 6.45 x10(9)/L 07/11/2024 11:25 AM DIRECTOR INDUSTRIAL RELATIONS FB60 Lymphocytes 1.65 0.95 - 3.07 x10(9)/L 07/11/2024 11:25 AM DIRECTOR INDUSTRIAL RELATIONS FB60 Monocytes 1.28(H) 0.26 - 0.81 x10(9)/L 07/11/2024 11:25 AM DIRECTOR INDUSTRIAL RELATIONS FB60 Eosinophils 0.06 0.03 - 0.48 x10(9)/L 07/11/2024 11:25 AM DIRECTOR INDUSTRIAL RELATIONS FB60 Basophils <0.04 0.01 - 0.08 x10(9)/L 07/11/2024 11:25 AM DIRECTOR INDUSTRIAL RELATIONS FB60 Blood (Blood, Venous) 07/11/2024 11:17 AM DIRECTOR INDUSTRIAL RELATIONS 07/11/2024 11:17 AM DIRECTOR INDUSTRIAL RELATIONS us Prudence TO, P.A.-C. LAB BLOOD ADD-ON Final Result [facility] [address] [place] [address], [facility] FB60 [facility] in [place] [address] [place] [address] documented in this encounter Visit Diagnoses Diagnosis Pneumonia documented in this encounter Additional Health Concerns Assessment Noted Time PHQ-9 Depression Total Score: 22 025 7:19 PM DIRECTOR INDUSTRIAL RELATIONS documented as of this encounter Care Teams Seafood Clerk Relationship Specialty Start Date End Date Prudence Mena MPAS, P.A.-C. [address] [place] [phone] PCP - General Internal Medicine 02/08/24 documented as of this encounter
--- OUTSIDE RECORDS SUMMARY | 2024-07-28 21:13 | XMS_ITS | Encounter Summary ---
Author Organization [facility] Address [address] [place] [address] Care Team Providers Care Department Clinician Name Role Phone Prudence Mena P.A.-C. Primary Care Pro vider Reason for Referral * Outpatient (Routine) - Authorized Specialty Diagnoses / Procedures Referred By Contac t Referred To Contact Community Internal Medicine Prudence Mena MPAS, P.A.-C. [address] [place] [address] Phone: tel: fax: [facility] Region Referral ID Status Reason Start Date Expiration Date V isits Requested Visits Authorized [id number] Authorized 07/11/2024 01/10/2026 1 1 [facility] D[facility]ER Encounter Details Date Type Department Care Team (Late st Contact Info) Description 07/11/2024 Orders Only Department of Community Internal Medicine in [place], [place] [address] [place] [address] Prudence Mena MPAS, P.A.-C. [address] [place] [address] Pneumonia (Primary Dx) Social History Tobacco Use Types Packs/Day Years Used Date Smoking Tobacco: Former Cigarettes 1.5 0.1 S tarted: 06/21/2024 Passive Smoke Exposure: Past Smokeless Tobacco: Never Alcohol Use Standard Drinks/Week Comments Yes 0 (1 standard drink = 0.6 oz pur e alcohol) socially [facility] Utilities Answer Date Recorded In the [...] How often do you attend mosque or oriental orthodox serv ices? Never 07/27/2022 [...] Answer Date Recorded PHQ-2 Score 6 07/10/2024 [facility] - Occupational [...] st Contact Info) Description 07/29/2024 10:00 AM [facility] Infusion Department of Infusion Therapy in [address] [address] Melinda Isaac APRN, C.N.P. [address] [place] [phone] 07/29/2024 2:20 PM [facility]ER Office Visit Department of Community Internal Medicine in [place], [place] [address] [place] [phone] Prudence Mena MPAS, P.A.-C. [address] [place] [phone] 07/30/2024 9:00 AM [facility] Infusion Department of Infusion Therapy in [address] [address] Melinda Isaac APRN, C.N.P. [address] [place] [phone] 07/31/2024 8:00 AM [facility] Infusion Department of Infusion Therapy in [address] [address] Melinda Isaac APRN, C.N.P. [address] [place] [phone] 08/01/2024 7:00 AM [facility] Infusion Department of Infusion Therapy in [address] [address] Melinda Isaac APRN, C.N.P. [address] [place] [phone] 08/02/2024 9:00 AM [facility] Infusion Department of Infusion Therapy in [address] [address] Melinda Isaac APRN, C.N.P. [address] [place] [phone] 08/02/2024 12:30 PM [facility]ER Clinical Communication Virtual Review in [place], [place] 200 [place] [address] 08/03/2024 9:00 AM [facility] Infusion Department of Infusion Therapy in [address] [address] Melinda Isaac APRN, C.N.P. [address] [place] [phone] 08/04/2024 9:00 AM [facility] Infusion Department of Infusion Therapy in [address] [address] Melinda Isaac APRN, C.N.P. [address] [place] [phone] 08/05/2024 8:45 AM [facility]ER Appointment Department of Radiology, [facility], in [place], [place] [address] [place] [phone] Kayleigh Small M.D. [address] [place] [phone] 08/05/2024 9:00 AM [facility] Infusion Department of Infusion Therapy in [address] [place] [address] Melinda Isaac APRN, C.N.P. [address] [place] [phone] 08/05/2024 11:00 AM [facility] D[facility]ER Office Visit Section of Infectious Diseases in [place], [place] [address] [place] [phone] Kayleigh Small M.D. [address] [place] [phone] 08/06/2024 9:00 AM [facility] Infusion Department of Infusion Therapy in [address] [address] Melinda Isaac APRN, C.N.P. [address] [place] [phone] 08/07/2024 9:00 AM [facility] Infusion Department of Infusion Therapy in [address] [address] Melinda Isaac APRN, C.N.P. [address] [place] [phone] 08/08/2024 9:00 AM [facility] Infusion Department of Infusion Therapy in [address] [address] Melinda Isaac APRN, C.N.P. [address] [place] [phone] 08/09/2024 9:00 AM [facility] Infusion Department of Infusion Therapy in [address] [address] Melinda Isaac APRN, C.N.P. [address] [place] [phone] 08/10/2024 9:00 AM [facility] Infusion Department of Infusion Therapy in [address] [address] Melinda Isaac APRN, C.N.P. [address] [place] [phone] 08/11/2024 9:00 AM [facility] Infusion Department of Infusion Therapy in [address] [address] Melinda Isaac APRN, C.N.P. [address] [place] [phone] 08/12/2024 9:00 AM [facility] Infusion Department of Infusion Therapy in [address] [address] Melinda Isaac APRN, C.N.P. [address] [place] [phone] 08/13/2024 8:30 AM [facility] Infusion Department of Infusion Therapy in [address] [address] Melinda Isaac APRN, C.N.P. [address] [place] [phone] 08/14/2024 9:00 AM [facility] Infusion Department of Infusion Therapy in [address] [address] Melinda Isaac APRN, C.N.P. [address] [place] [phone] 08/15/2024 9:00 AM [facility]ER Infusion Department of Infusion Therapy in [address] [address] Melinda Isaac APRN, C.N.P. [address] [place] [phone] 08/16/2024 9:00 AM [facility] Infusion Department of Infusion Therapy in [address] [phone] Melinda Isaac APRN, C.N.P. [address] [place] [phone] 08/17/2024 9:00 AM [facility] Infusion Department of Infusion Therapy in [address] [phone] Melinda Isaac APRN, C.N.P. [address] [place] [phone] 08/18/2024 9:00 AM [facility] Infusion Department of Infusion Therapy in [address] [address] Melinda Isaac APRN, C.N.P. [address] [place] [phone] Scheduled Referrals Name Type Priority Associated Diagnoses Orde r Schedule Community Internal Medicine office visit (clinic) Outpatient Referral Routine Expected: 07/18/2024, Expires: 10/09/2025 documented as of this encounter Results * (ABNORMAL) Basic Metabolic Panel (07/21/2024 9:24 AM [facility] DRIER) [facility] Potassium, P 3.1(L) 3.6 - 5.2 mmol/L 07/21/2024 9:55 AM [facility]ER [facility] Sodium, P 143 135 - 145 mmol/L 07/21/2024 9:55 AM [facility] Chloride, P 102 98 - 107 mmol/L 07/21/2024 9:55 AM [facility] Bicarbonate, P 30(H) 22 - 29 mmol/L 07/21/2024 9:55 AM [facility] Anion Gap, P 11 7 - 15 07/21/2024 9:55 AM [facility] BUN (Blood Urea Nitrogen), P 8 6 - 21 mg/dL 07/21/2024 9:55 AM [facility] Creatinine 0.69 0.59 - 1.04 mg/dL 07/21/2024 9:55 AM [facility] Estimated GFR (eGFR) >90 >=60 mL/min/BSA 07/21/2024 9:55 AM [facility] Comment: Estimated GFR calculated using the 2020 CKD_EPI creatinine equation. Calcium, Total, P 8.7 8.6 - 10.0 mg/dL 07/21/2024 9:55 AM [facility] Glucose, P 97 70 - 140 mg/dL 07/21/2024 9:55 AM [facility] Blood (Blood, Venous) 07/21/2024 9:24 AM [facility] D[facility]ER 07/21/2024 9:32 AM [facility]ER Prudence TO, P.A.-C. LAB BLOOD ADD-ON Final Result [facility] [address] [place] [address], [facility] in [place] [address] [place] [address] * (ABNORMAL) CBC with Differential, Blood (07/21/2024 9:24 AM [facility] DRIER) Hemoglobin 8.6(L) 11.6 - 15.0 g/dL 07/21/2024 9:34 AM [facility]ER [facility] Hematocrit 27.0(L) 35.5 - 44.9 % 07/21/2024 9:34 AM [facility]ER [facility] Erythrocytes 3.00(L) 3.92 - 5.13 x10(12)/L 07/21/2024 9:34 AM [facility] D[facility]ER [facility] MCV 90.0 78.2 - 97.9 fL 07/21/2024 9:34 AM [facility]ER [facility] RBC Distrib Width 15.5 12.2 - 16.1 % 07/21/2024 9:34 AM [facility]ER [facility] Platelet Count 515(H) 157 - 371 x10(9)/L 07/21/2024 9:34 AM [facility] Leukocytes 7.9 3.4 - 9.6 x10(9)/L 07/21/2024 9:34 AM [facility] Neutrophils 5.44 1.56 - 6.45 x10(9)/L 07/21/2024 9:34 AM [facility]ER [facility] Lymphocytes 1.31 0.95 - 3.07 x10(9)/L 07/21/2024 9:34 AM [facility] Monocytes 0.65 0.26 - 0.81 x10(9)/L 07/21/2024 9:34 AM [facility]ER [facility] Eosinophils 0.45 0.03 - 0.48 x10(9)/L 07/21/2024 9:34 AM [facility]ER [facility] Basophils <0.03 0.01 - 0.08 x10(9)/L 07/21/2024 9:34 AM [facility]ER [facility] Blood (Blood, Venous) 07/21/2024 9:24 AM [facility] DRIER 07/21/2024 9:32 AM [facility] D[facility]ER Prudence TO, P.A.-C. LAB BLOOD ADD-ON Final Result [facility] [address] [place] [address], [facility] in [place] [address] [place] [address] documented in this encounter Visit Diagnoses Diagnosis Pneumonia- Primary documented in this encounter Additional Health Concerns Assessment Noted Time PHQ-9 Depression Total Score: 22 025 7:19 PM [facility]ER documented as of this encounter Care Teams Department Clinician Relationship Specialty Start Date End Date Prudence Mena MPAS, P.A.-C. [address] [facility] [place] [phone] PCP - General Internal Medicine 02/08/24 documented as of this encounter
--- OUTSIDE RECORDS SUMMARY | 2024-07-28 21:13 | XMS_ITS | Encounter Summary ---
Author Organization [facility] Address [address] [place] [address] Care Team Providers Care Slasher Sawyer Name Role Phone Prudence Mena P.A.-CDmitry Primary Care Pro vider Encounter Details Date Type Department Care Team (Late st Contact Info) Description 07/11/2024 Clinical Communication Department of Community Internal Medicine in [place], [place] [address] [place] [address] Prudence Mena MPAS P.A.-C. [address] [place] [address] Social History Tobacco Use Types Packs/Day Years Used Date Smoking Tobacco: Former Cigarettes 1.5 0.1 S tarted: 06/21/2024 Passive Smoke Exposure: Past Smokeless Tobacco: Never Alcohol Use Standard Drinks/Week Comments Yes 0 (1 standard drink = 0.6 oz pur e alcohol) [facility] Utilities Answer Date Recorded In the past 12 months has e [employer] gas, oil, or water [employer] threatened to shut off services in your home? No 07/15/2024 Humiliation, Afraid, Rape, and Kick questionnair e Answer Date Recorded Within the last year, have y ou been afraid of your partner or ex-partner? No 07/15/2024 Within the last year, have y ou been humiliated or emotionally abused in other ways by your partner or ex-partner? No Within the last year, have y ou been kicked, hit, slapped, or otherwise physically hurt by your partner or ex-partner? No 07/15/2024 Within the last year, have y ou been raped or forced to have any kind of sexual activity by your partner or ex-partner? No 07/15/2024 Social Connection and Isolation Panel [NHANES] A nswer Date Recorded In a typical week, how many times do you talk on the phone with family, friends, or neighbors? Once a week 07/27/2022 How often do you get together with friends or re latives? Never 07/27/2022 How often do you attend yarsani or hinduism serv ices? Never 07/27/2022 Do you belong to any clubs o r organizations such as yarsani groups, unions, fraternal or athletic groups, or [...] Answer Date Recorded PHQ-2 Score 6 07/10/2024 [facility] - Occupational [...] medical appointments or from getting medications? No 07/03 In the past 12 months, has l ack of transportation kept you from meetings, work, or from getting things needed for daily living? No 07/15/2024 Depression Answer Date Recor ded PHQ-9 Total [...] worried about losing it in the future 07/15/2024 Education Answer Date Recorded What is the [...] Es Evans L.P.N. - 07/11/2024 3:33 PM LIFE COACH Called and notified patient of: Please call [...] CT scan and follow up with Prudence. COACH documented in this encounter Plan of Treatment Upcoming Encounters Date Type Department Care Team (Late st Contact Info) Description 07/29/2024 10:00 AM LIFE COACH Infusion Department of Infusion Therapy in [address] [address] Melinda Isaac APRN, C.N.P. [address] [place] [phone] 07/29/2024 2:20 PM LIFE COACH Office Visit Department of Community Internal Medicine in [place], [place] [address] [place] [phone] Prudence Mena, LATONIAS, P.A.-C. [address] [place] [address] 07/30/2024 9:00 AM LIFE COACH Infusion Department of Infusion Therapy in [address] [address] Melinda Isaac APRN, C.N.P. [address] [place] [phone] 07/31/2024 8:00 AM LIFE COACH Infusion Department of Infusion Therapy in [address] [address] Melinda Isaac APRN, C.N.P. [address] [place] [phone] 08/01/2024 7:00 AM LIFE COACH Infusion Department of Infusion Therapy in [address] [address] Melinda Isaac APRN, C.N.P. [address] [place] [phone] 08/02/2024 9:00 AM LIFE COACH Infusion Department of Infusion Therapy in [address] [address] Melinda Isaac APRN, C.N.P. [address] [place] [phone] 08/02/2024 12:30 PM LIFE COACH Clinical Communication Virtual Review in [place], [place] [address] [place] [address] 08/03/2024 9:00 AM LIFE COACH Infusion Department of Infusion Therapy in [address] [address] Melinda Isaac APRN, C.N.P. [address] [place] [phone] 08/04/2024 9:00 AM LIFE COACH Infusion Department of Infusion Therapy in [address] [address] Melnida Isaac APRN, C.N.P. [address] [place] [phone] 08/05/2024 8:45 AM LIFE COACH Appointment Department of Radiology, [facility], in [place], [place] [address] [place] [phone] Kayleigh Small M.D. [address] [place] [phone] 08/05/2024 9:00 AM LIFE COACH Infusion Department of Infusion Therapy in [address] [address] Melinda Isaac APRN, C.N.P. [address] [place] [phone] 08/05/2024 11:00 AM LIFE COACH Office Visit Section of Infectious Diseases in [place], [place] [address] [place] [phone] Kayleigh Small M.D. [address] [place] [phone] 08/06/2024 9:00 AM LIFE COACH Infusion Department of Infusion Therapy in [address] [address] Melinda Isaac APRN, C.N.P. [address] [place] [phone] 08/07/2024 9:00 AM LIFE COACH Infusion Department of Infusion Therapy in [address] [address] Melinda Isaac APRN, C.N.P. [address] [place] [phone] 08/08/2024 9:00 AM LIFE COACH Infusion Department of Infusion Therapy in [address] [address] Melinda Isaac APRN, C.N.P. [address] [place] [phone] 08/09/2024 9:00 AM LIFE COACH Infusion Department of Infusion Therapy in [address] [address] Melinda Isaac APRN, C.N.P. [address] [place] [phone] 08/10/2024 9:00 AM LIFE COACH Infusion Department of Infusion Therapy in [address] [address] Melinda Isaac APRN, C.N.P. [address] [place] [phone] 08/11/2024 9:00 AM LIFE COACH Infusion Department of Infusion Therapy in [address] [address] Melinda Isaac APRN, C.N.P. [address] [place] [phone] 08/12/2024 9:00 AM LIFE COACH Infusion Department of Infusion Therapy in [address] [address] Melinda Isaac APRN, C.N.P. [address] [place] [phone] 08/13/2024 8:30 AM LIFE COACH Infusion Department of Infusion Therapy in [address] [address] Melinda Isaac APRN, C.N.P. [address] [place] [phone] 08/14/2024 9:00 AM LIFE COACH Infusion Department of Infusion Therapy in [address] [address] Melinda Isaac APRN, C.N.P. [address] [place] [phone] 08/15/2024 9:00 AM LIFE COACH Infusion Department of Infusion Therapy in [address] [address] Melinda Isaac APRN, C.N.P. [address] [place] [phone] 08/16/2024 9:00 AM LIFE COACH Infusion Department of Infusion Therapy in [address] [address] Melinda Isaac APRN, C.N.P. [address] [place] [phone] 08/17/2024 9:00 AM LIFE COACH Infusion Department of Infusion Therapy in [address] [address] Melinda Isaac APRN, C.N.P. [address] [place] [phone] 08/18/2024 9:00 AM LIFE COACH Infusion Department of Infusion Therapy in [address] [phone] Melinda Isaac APRN, C.N.P. [address] [place] [address] documented as of this encounter Visit Diagnoses Not on filedocumented in this encounter Additional Health Concerns Assessment Noted Time PHQ-9 Depression Total Score: 22 025 7:19 PM LIFE COACH documented as of this encounter Care Teams Slasher Sawyer Relationship Specialty Start Date End Date Prudence Mena MPAS, P.A.-C. [address] [place] [phone] PCP - General Internal Medicine 02/08/24 documented as of this encounter
--- OUTSIDE RECORDS SUMMARY | 2024-07-28 21:14 | XMS_ITS | Encounter Summary ---
Author Organization [facility] Address [address] [place] [address] Care Team Providers Care Sheet Metal Helper Name Role Phone Prudence Mena P.A.-CDmitry Primary Care Pro vider Reason for Referral * MRI/CAT/PET Scan (Routine) - Closed Specialty Diagnoses / Procedures Referred By Chrisac t Referred To Contact Radiology Diagnoses Pneumonia Procedures CT Chest with IV Contrast Prudence Mena MPAS, P.A.-C. [address] [place] [address] Phone: tel: fax: [facility] Region Referral ID Status Reason Start Date Expiration Date Visits Re quested Visits Authorized [id number] Closed 07/12/2024 07/12/2025 1 1 ARDI DEVELOPER Reason for Visit * MRI/CAT/PET Scan (Routine) - Closed Specialty Diagnoses / Procedures Referred By Contac t Referred To Contact Radiology Diagnoses Pneumonia Procedures CT Chest with IV Contrast Prudence Mena MPAS P.A.-C. [address] [place] [address] Phone: tel: fax: [facility] Region Referral ID Status Reason Start Date Expiration Date Visits Re quested Visits Authorized [id number] Closed 07/12/2024 07/12/2025 1 1 Encounter Details Date Type Department Care Team (Latest Contact Info) Description 07/24/2024 9:03 AM LOMBARDI DEVELOPER - 07/24/2024 11:59 PM LOMBARDI DEVELOPER Hospital Encounter Department of Radiology in [address] [place] [address] Prudence Mena MPAS, P.A.-C. [address] [facility] [phone] Pneumonia Discharge Disposition: Home or Self Care Social History Tobacco Use Types Packs/Day Years Used Date Smoking Tobacco: Former Cigarettes 1.5 0.1 S tarted: 06/21/2024 Passive Smoke Exposure: Past Smokeless Tobacco: Never Alcohol Use Standard Drinks/Week Comments Yes 0 (1 standard drink = 0.6 oz pur e alcohol) socially [facility] Utilities Answer Date Recorded In the past 12 months has e [employer], gas, oil, or water [employer] threatened to shut off services in your [...] Never 07/27/2022 How often do you attend synagogue or religion serv ices? Never 07/27/2022 Do you belong to any clubs o r organizations such as synagogue groups, unions, fraternal or athletic groups, or [...] Answer Date Recorded PHQ-2 Score 6 07/10/2024 [facility] ional [facility] - Occupational Stress Questionnaire Answer Date Recorded [...] 450 mg daily. 90 tablet 2 01/23/2023 cefTRIAXone in dextrose, iso osm, (Rocephin) 2 gram/50 mL IVBPIndications: Empyema Pleural (HCC) Infuse 50 mL (2 g total) into a venous catheter daily for 17 days. [facility] 07/19/2024 cholecalciferol (VITAMIN D3) 50 mcg (2,000 Unit) [...] times a day. 12 g 3 10/26/2022 guaiFENesin (Mucinex) 600 mg 12 hr tablet Take 1,200 mg by mouth 2 (two) times a day. ipratropium-albu teroL (DuoNeb) 0.5-2.5 mg/3 mL nebulizer [...] mouth daily as needed for anxiety. 08/17/2023 methocarbamoL (Robaxin) 500 mg tablet Take 1 tablet (500 mg total) by mouth 3 (three) times a day as needed for muscle spasms. 45 tablet 07/20/2024 10:13 AM LOMBARDI DEVELOPER 07/19/2024 metroNIDAZOLE (FlagyL) 500 mg tabletIndication s:Empyema Take 1 tablet (500 mg total) by mouth 3 (three) times a day for 17 days Indications: Empyema. 51 tablet 07/20/2024 10:13 AM LOMBARDI DEVELOPER 07/19/2024 multivitamin capsule Take 1 capsule by mouth [...] times a day. 90 capsule 3 03/21/2024 sennosides (senna) 8.6 mg tablet Take 2 tablets (17.2 mg total) by mouth daily. 07/20/2024 traZODone (DESYREL) 50 mg tablet TAKE 1-4 TABLETS BY MOUTH ONCE DAILY AT BEDTIME. 10/13/2021 Ventolin HFA 90 mcg/actuation inhaler INHALE 2 PUFFS EVERY 4 HOURS NEEDED FOR WHEEZING OR SHORTNESS OF BREATH. 54 g 3 03/05/2024 Vraylar 4.5 mg capsule Take 4.5 mg by mouth at bedtime. 10/11/2022 oxyCODONE (Roxicodone) 5 mg immediate release tabletIndication s:Acute Pain Exception Take 1 tablet (5 mg total) by mouth every 4 (four) hours as needed for moderate pain or score 4-6 of 10 (for breakthrough pain) Indication: Acute Pain Exception. 28 tablet 07/20/2024 10:13 AM LOMBARDI DEVELOPER 07/19/2024 5 documented as of this encounter Plan of Treatment Upcoming Encounters Date Type Department Care Team (Late st Contact Info) Description 07/29/2024 10:00 AM LOMBARDI DEVELOPER Infusion Department of Infusion Therapy in [address] [phone] Melinda Isaac, FRED, C.N.P. [address] [place] [phone] 07/29/2024 2:20 PM LOMBARDI DEVELOPER Office Visit Department of Community Internal Medicine in [place], [place] 300 [facility] [place] [place] [phone] Prudence Mena MPAS, P.A.-C. [address] [place] [phone] 07/30/2024 9:00 AM LOMBARDI DEVELOPER Infusion Department of Infusion Therapy in [address] [phone] Melinda Isaac APRN, C.N.P. [address] [place] [phone] 07/31/2024 8:00 AM LOMBARDI DEVELOPER Infusion Department of Infusion Therapy in [address] [address] Melinda Isaac APRN, C.N.P. [address] [place] [phone] 08/01/2024 7:00 AM LOMBARDI DEVELOPER Infusion Department of Infusion Therapy in [address] [address] Melinda Isaac APRN, C.N.P. [address] [place] [phone] 08/02/2024 9:00 AM LOMBARDI DEVELOPER Infusion Department of Infusion Therapy in [address] [address] Melinda Isaac APRN, C.N.P. [address] [place] [phone] 08/02/2024 12:30 PM LOMBARDI DEVELOPER Clinical Communication Virtual Review in [place], [place] [address] [place] [phone] 08/03/2024 9:00 AM LOMBARDI DEVELOPER Infusion Department of Infusion Therapy in [address] [phone] Melinda Isaac APRN, C.N.P. [address] [place] [phone] 08/04/2024 9:00 AM LOMBARDI DEVELOPER Infusion Department of Infusion Therapy in [address] [phone] Melinda Isaac APRN, C.N.P. [address] [place] [phone] 08/05/2024 8:45 AM LOMBARDI DEVELOPER Appointment Department of Radiology, [facility], in [place], [place] [address] [place] [phone] Kayleigh Small M.D. [address] [place] [phone] 08/05/2024 9:00 AM LOMBARDI DEVELOPER Infusion Department of Infusion Therapy in [address] [phone] Melinda Isaac APRN, C.N.P. [address] [place] [phone] 08/05/2024 11:00 AM LOMBARDI DEVELOPER Office Visit Section of Infectious Diseases in [place], [place] [address] [place] [phone] Kayleigh Small M.D. [address] [place] [phone] 08/06/2024 9:00 AM LOMBARDI DEVELOPER Infusion Department of Infusion Therapy in [address] [address] Melinda Isaac APRN, C.N.P. [address] [place] [phone] 08/07/2024 9:00 AM LOMBARDI DEVELOPER Infusion Department of Infusion Therapy in [address] [address] Melinda Isaac APRN, C.N.P. [address] [place] [phone] 08/08/2024 9:00 AM LOMBARDI DEVELOPER Infusion Department of Infusion Therapy in [address] [phone] Melinda Isaac APRN, C.N.P. [address] [place] [phone] 08/09/2024 9:00 AM LOMBARDI DEVELOPER Infusion Department of Infusion Therapy in [address] [phone] Melinda Isaac APRN, C.N.P. [address] [place] [phone] 08/10/2024 9:00 AM LOMBARDI DEVELOPER Infusion Department of Infusion Therapy in [address] [phone] Melinda Isaac APRN, C.N.P. [address] [place] [phone] 08/11/2024 9:00 AM LOMBARDI DEVELOPER Infusion Department of Infusion Therapy in [address] [address] Melinda Isaac APRN, C.N.P. [address] [place] [phone] 08/12/2024 9:00 AM LOMBARDI DEVELOPER Infusion Department of Infusion Therapy in [address] [phone] Melinda Isaac APRN, C.N.P. [address] [place] [phone] 08/13/2024 8:30 AM LOMBARDI DEVELOPER Infusion Department of Infusion Therapy in [address] [address] Melinda Isaac APRN, C.N.P. [address] [place] [phone] 08/14/2024 9:00 AM LOMBARDI DEVELOPER Infusion Department of Infusion Therapy in [address] [phone] Melinda Isaac APRN, C.N.P. [address] [place] [phone] 08/15/2024 9:00 AM LOMBARDI DEVELOPER Infusion Department of Infusion Therapy in [address] [phone] Melinda Isaac APRN, C.N.P. [address] [place] [phone] 08/16/2024 9:00 AM LOMBARDI DEVELOPER Infusion Department of Infusion Therapy in [address] [place] [address] Melinda Isaac APRN, C.N.P. [address] [place] [phone] 08/17/2024 9:00 AM LOMBARDI DEVELOPER Infusion Department of Infusion Therapy in [address] [phone] Melinda Isaac APRN, C.N.P. [address] [place] [phone] 08/18/2024 9:00 AM LOMBARDI DEVELOPER Infusion Department of Infusion Therapy in [address] [phone] Melinda Isaac APRN, C.N.P. [address] [place] [phone] documented as of this encounter Procedures Procedure Name Priority Date/Time Associated Diagnosis Comments CT CHEST WITH IV CONTRAST RAD - Routine (most inpatients and all outpatients) 07/24/2024 10:24 AM LOMBARDI DEVELOPER Pneumonia documented in this encounter Results * CT Chest with IV Contrast (07/24/2024 10:24 AM LOMBARDI DEVELOPER) Anatomical Region Laterality Modality Chest, Thoracic RST LOS, Tho racic ARZ LOS, Thoracic ARZ LOS, Thoracic FLA LOS N/A Computed Tomography 07/24/2024 10:2 2 AM LOMBARDI DEVELOPER Impressions 07/24/2024 11:16 AM LOMBARDI DEVELOPER Pneumonia and small left pleural effusion. Narrative 07/24/2024 11:16 AM LOMBARDI DEVELOPER EXAM: CT CHEST WITH IV CONTRAST COMPARISON: July 13, 2024 FINDINGS: Small left pleural effusion. Scattered pulmonary subsegmental atelectasis. Patchy bilateral pulmonary interstitial and airspace (predominantly groundglass and tree-in-bud which is more common of an atypical process) opacities consistent with pneumonia. Normal heart size. Mildly prominent reactive mediastinal and hilar lymph nodes. Normal caliber thoracic aorta. Negative for acute or aggressive appearing skeletal lesion. 3D maximum intensity projection (MIP) images were created on a dependent workstation as ordered by the treating provider and reviewed by the radiologist to increase sensitivity for detection of pulmonary nodules. Procedure Note Mick Mejia M.D. - 07/24/2024 EXAM: CT CHEST WITH IV CONTRAST COMPARISON: July 13, 2024 FINDINGS: Small left pleural effusion. Scattered pulmonary subsegmentalatelectasis. Patchy bilateral pulmonary interstitial and airspace(predominantly groundglass and tree-in-bud which is more common of anatypical process) opacities consistent with pneumonia. Normal heart size. Mildly prominent reactive mediastinal andhilar lymph nodes. Normal caliber thoracic aorta. Negative for acute oraggressive appearing skeletal lesion. 3D maximum intensity projection (MIP) images were created on a dependentworkstation as ordered by the treating provider and reviewed by theradiologist to increase sensitivity for detection of pulmonary nodules. IMPRESSION: Pneumonia and small left pleural effusion. Prudence TO, P.A.-C. IMG CT PROCEDURES Final Result documented in this encounter Visit Diagnoses Diagnosis Pneumonia documented in this encounter Administered Medications Inactive Administered Medications - up to 3 most recent administrations Medication Order MAR Action Action Date Dose Rate Site iopromide 300 mg iodine/mL injection 80 mL (Ultravist) 80 mL, intravenous, Once in imaging, contrast, Starting on Mon07/24/24 at 0907, For 1 dose Given 07/24/2024 10:16 AM LOMBARDI DEVELOPER 80 mL sodium chloride 0.9 % flush 80 mL 80 mL, intravenous, Once, On Mon07/24/24 at 0930, For 1 dose Given 07/24/2024 10:19 AM LOMBARDI DEVELOPER 80 mL sodium chloride 0.9 % injection 10 mL 10 mL, intravenous, Once, On Mon07/24/24 at 0930, For 1 dose Given 07/24/2024 10:19 AM LOMBARDI DEVELOPER 10 mL documented in this encounter Additional Health Concerns Assessment Noted Time PHQ-9 Depression Total Score: 025 7:19 PM LOMBARDI DEVELOPER documented as of this encounter Care Teams Sheet Metal Helper Relationship Specialty Start Date End Date Prudence Mena MPAS, P.A.-C. [address] [facility] [phone] PCP - General Internal Medicine 02/08/24 documented as of this encounter
--- OUTSIDE RECORDS SUMMARY | 2024-07-28 21:14 | XMS_ITS | Encounter Summary ---
Author Organization [facility] Address [address] [place] [address] Care Team Providers Care Tire Bladder Maker Name Role Phone Prudence Mena P.A.-CDmitry Primary Care Pro vider Encounter Details Date Type Department Care Team (Late st Contact Info) Description 07/24/2024 Results Follow-Up Department of Community Internal Medicine in [place], [place] 300 [place] [address] Prudence Mena MPAS P.A.-C. [address] [place] [phone] Social History Tobacco Use Types Packs/Day Years Used Date Smoking Tobacco: Former Cigarettes 1.5 0.1 S tarted: 06/21/2024 Passive Smoke Exposure: Past Smokeless Tobacco: Never Alcohol Use Standard Drinks/Week Comments Yes 0 (1 standard drink = 0.6 oz pur e alcohol) socially [facility] Utilities Answer Date Recorded In the past 12 months has [facility] [employer], gas, oil, or water [employer] threatened to shut off services in your [...] Never 07/27/2022 How often do you attend scientology or oriental orthodox serv ices? Never 07/27/2022 Do you belong to any clubs o r organizations such as scientology groups, unions, fraternal or athletic groups, or [...] Answer Date Recorded PHQ-2 Score 6 07/10/2024 [facility] Occupat ional Health - Occupational Stress [...] st Contact Info) Description 07/29/2024 10:00 AM SEARCH MARKETING COORDINATOR Infusion Department of Infusion Therapy in [address] [phone] Melinda Isaac, ELECTRICAL SOLDERER, C.N.P. [address] [place] [address] 07/29/2024 2:20 PM SEARCH MARKETING COORDINATOR Office Visit Department of Community Internal Medicine in [place], [place] 300 [facility] [place] [phone] Prudence Mena MPAS, P.A.-C. [address] [place] [phone] 07/30/2024 9:00 AM SEARCH MARKETING COORDINATOR Infusion Department of Infusion Therapy in [address] [phone] Melinda Isaac APRN, C.N.P. [address] [place] [phone] 07/31/2024 8:00 AM SEARCH MARKETING COORDINATOR Infusion Department of Infusion Therapy in [address] [address] Melinda Isaac APRN, C.N.P. [address] [place] [phone] 08/01/2024 7:00 AM SEARCH MARKETING COORDINATOR Infusion Department of Infusion Therapy in [address] [address] Melinda Isaac APRN, C.N.P. [address] [place] [phone] 08/02/2024 9:00 AM SEARCH MARKETING COORDINATOR Infusion Department of Infusion Therapy in [address] [phone] Melinda Isaac APRN, C.N.P. [address] [place] [phone] 08/02/2024 12:30 PM SEARCH MARKETING COORDINATOR Clinical Communication Virtual Review in [place], [place] 200 [place] [address] 08/03/2024 9:00 AM SEARCH MARKETING COORDINATOR Infusion Department of Infusion Therapy in [address] [phone] Melinda Isaac, FRED, C.N.P. [address] [place] [phone] 08/04/2024 9:00 AM SEARCH MARKETING COORDINATOR Infusion Department of Infusion Therapy in [address] [phone] Melinda Isaac APRN, C.N.P. [address] [place] [phone] 08/05/2024 8:45 AM SEARCH MARKETING COORDINATOR Appointment Department of Radiology, [facility], in [place], [place] [address] [place] [phone] aKyleigh Small M.D. [address] [place] [phone] 08/05/2024 9:00 AM SEARCH MARKETING COORDINATOR Infusion Department of Infusion Therapy in [address] [phone] Melinda Isaac APRN, C.N.P. [address] [place] [phone] 08/05/2024 11:00 AM SEARCH MARKETING COORDINATOR Office Visit Section of Infectious Diseases in [place], [place] [address] [place] [phone] Kayleigh Small M.D. [address] [place] [phone] 08/06/2024 9:00 AM SEARCH MARKETING COORDINATOR Infusion Department of Infusion Therapy in [address] [address] Melinda Isaac APRN, C.N.P. [address] [place] [phone] 08/07/2024 9:00 AM SEARCH MARKETING COORDINATOR Infusion Department of Infusion Therapy in [address] [address] Melinda Isaac APRN, C.N.P. [address] [place] [phone] 08/08/2024 9:00 AM SEARCH MARKETING COORDINATOR Infusion Department of Infusion Therapy in [address] [address] Melinda Isaac APRN, C.N.P. [address] [place] [phone] 08/09/2024 9:00 AM SEARCH MARKETING COORDINATOR Infusion Department of Infusion Therapy in [address] [address] Melinda Isaac APRN, C.N.P. [address] [place] [phone] 08/10/2024 9:00 AM SEARCH MARKETING COORDINATOR Infusion Department of Infusion Therapy in [address] [address] Melinda Isaac APRN, C.N.P. [address] [place] [phone] 08/11/2024 9:00 AM SEARCH MARKETING COORDINATOR Infusion Department of Infusion Therapy in [address] [address] Melinda Isaac APRN, C.N.P. [address] [place] [phone] 08/12/2024 9:00 AM SEARCH MARKETING COORDINATOR Infusion Department of Infusion Therapy in [address] [address] Melinda Isaac APRN, C.N.P. [address] [place] [phone] 08/13/2024 8:30 AM SEARCH MARKETING COORDINATOR Infusion Department of Infusion Therapy in [address] [phone] Melinda Isaac APRN, C.N.P. [address] [place] [phone] 08/14/2024 9:00 AM SEARCH MARKETING COORDINATOR Infusion Department of Infusion Therapy in [address] [address] Melinda Isaac APRN, C.N.P. [address] [place] [phone] 08/15/2024 9:00 AM SEARCH MARKETING COORDINATOR Infusion Department of Infusion Therapy in [address] [address] Melinda Isaac APRN, C.N.P. [address] [place] [phone] 08/16/2024 9:00 AM SEARCH MARKETING COORDINATOR Infusion Department of Infusion Therapy in [address] [address] Melinda Isaac APRN, C.N.P. [address] [place] [phone] 08/17/2024 9:00 AM SEARCH MARKETING COORDINATOR Infusion Department of Infusion Therapy in [address] [address] Melinda Isaac APRN, C.N.P. [address] [place] [phone] 08/18/2024 9:00 AM SEARCH MARKETING COORDINATOR Infusion Department of Infusion Therapy in [address] [phone] Melinda Isaac APRN, C.N.P. [address] [place] [phone] documented as of this encounter Visit Diagnoses Not on filedocumented in this encounter Additional Health Concerns Assessment Noted Time PHQ-9 Depression Total Score: 22 025 7:19 PM SEARCH MARKETING COORDINATOR documented as of this encounter Care Teams Tire Bladder Maker Relationship Specialty Start Date End Date Prudence Mena MPAS, P.A.-C. [address] [place] [phone] PCP - General Internal Medicine 02/08/24 documented as of this encounter
--- OUTSIDE RECORDS SUMMARY | 2024-07-28 21:14 | XMS_ITS | Encounter Summary ---
Author Organization [facility] Address [address] [place] [address] Care Team Providers Care Head Cd Reactor Operator Name Role Phone Prudence Mena P.A.-C. Primary Care Pro vider Reason for Referral * Outpatient (Routine) - Closed Specialty Diagnoses / Procedures Referred By Contac t Referred To Contact Diagnoses Pneumonia Procedures DX Chest AP or PA and Lateral 2 Views Prudence Mena MPAS, P.A.-CDmitry [address] [place] [address] Phone: tel: fax: [facility] Referral ID Status Reason Start Date Expiration Date Visits Re quested Visits Authorized [id number] Closed 07/11/2024 07/11/2025 1 1 SECURITIES Reason for Visit * Reason Comments Post Ed Visit Follow-up [facility] follow up- would like a HGB done also per nurse * Appointment Request (Routine) - Closed Specialty Diagnoses / Procedures Referred By Contac t Referred To Contact Family Medicine Referral ID Status Reason Start Date Expiration Date Visits Re quested Visits Authorized [id number] Closed 06/11/2024 06/11/2025 1 1 Encounter Details Date Type Department Care Team (Late st Contact Info) Description 07/11/2024 10:40 AM VP SECURITIES Office Visit Department of Community Internal Medicine in [place], [place] [address] [place] [address] Prudence Mena MPAS P.A.-C. 300 [facility] [place]UN Orta [phone] Hypokalemia (Primary Dx); Pneumonia; Effusion Pleural; Blood In Stool Social History Tobacco Use Types Packs/Day Years Used Date Smoking Tobacco: Former Cigarettes 1.5 0.1 S tarted: 06/21/2024 Passive Smoke Exposure: Past Smokeless Tobacco: Never Tobacco Cessation:Counseling Given: Not Answered Alcohol Use Standard Drinks/Week Comments Yes 0 (1 standard drink = 0.6 oz pur e alcohol) socially [facility] Utilities Answer Date Recorded In the past 12 months has e electric, gas, oil, or water [employer] threatened to shut off services in your [...] Never 07/27/2022 How often do you attend shinto or congregational serv ices? Never 07/27/2022 Do you belong to any clubs o r organizations such as shinto groups, unions, fraternal or athletic groups, or [...] Answer Date Recorded PHQ-2 Score 6 07/10/2024 [facility] [place] of Occupat ional Health - Occupational Stress [...] Comments Blood Pressure 106/72 07/11/2024 11:00 AM VP SECURITIES Pulse 85 07/11/2024 11:00 AM VP SECURITIES Temperature 36 C (96.8 F) 07/11/2024 10:32 AM VP SECURITIES Respiratory Rate 30 07/11/2024 10:32 AM VP SECURITIES Oxygen Saturation 96% 07/11/2024 10:32 AM VP SECURITIES Inhaled Oxygen Concentration - - Weight 96.2 kg (212 lb 3.1 oz) 07/11/2024 10:32 AM VP SECURITIES Height 163 cm (5' 4.17) 07/11/2024 10:32 AM VP SECURITIES Body Mass Index 36.23 07/11/2024 10:32 AM VP SECURITIES documented in this encounter Progress Notes * Prudence Mena MPAS, P.A.-C. - 07/11/2024 10:40 AM CST SUBJECTIVE CHIEF COMPLAINT/REASON FOR VISIT Chief Complaint Patient presents with Post Ed Visit Follow[facility] follow up- would like a HGB done also per nurse HISTORY OF PRESENT ILLNESS Melinda Kumar is a pleasant 39 y.o. female who presents to the clinic today for post hospital follow-up. She was admitted to 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. Her condition has not improved [...] time spent: 40 minutes YOUSUF Pathak, P.A.-C. SECURITIES documented in this encounter Plan of Treatment Upcoming Encounters Date Type Department Care Team (Late st Contact Info) Description 07/29/2024 10:00 AM VP SECURITIES Infusion Department of Infusion Therapy in [address] [phone] Melinda Isaac APRN, C.N.P. [address] [place] [phone] 07/29/2024 2:20 PM VP SECURITIES Office Visit Department of Community Internal Medicine in [address] [phone] Prudence Mena MPAS, P.A.-C. [address] [place] [phone] 07/30/2024 9:00 AM VP SECURITIES Infusion Department of Infusion Therapy in [address] [phone] Melinda Isaac APRN, C.N.P. [address] [place] [phone] 07/31/2024 8:00 AM VP SECURITIES Infusion Department of Infusion Therapy in [address] [phone] Melinda Isaac APRN, C.N.P. [address] [place] [phone] 08/01/2024 7:00 AM VP SECURITIES Infusion Department of Infusion Therapy in [address] [phone] Melinda Isaac APRN, C.N.P. [address] [place] [phone] 08/02/2024 9:00 AM VP SECURITIES Infusion Department of Infusion Therapy in [address] [phone] Melinda Isaac APRN, C.N.P. [address] [place] [phone] 08/02/2024 12:30 PM VP SECURITIES Clinical Communication Virtual Review in [place], [place] [address] [place] [phone] 08/03/2024 9:00 AM VP SECURITIES Infusion Department of Infusion Therapy in [address] [phone] Melinda Isaac APRN, C.N.P. [address] [place] [phone] 08/04/2024 9:00 AM VP SECURITIES Infusion Department of Infusion Therapy in [address] [phone] Melinda Isaac APRN, C.N.P. [address] [place] [phone] 08/05/2024 8:45 AM VP SECURITIES Appointment Department of Radiology, [facility], in [place], [place] [address] [place] [phone] Kayleigh Small M.D. [address] [place] [phone] 08/05/2024 9:00 AM VP SECURITIES Infusion Department of Infusion Therapy in [address] [phone] Melinda Isaac APRN, C.N.P. [address] [place] [phone] 08/05/2024 11:00 AM VP SECURITIES Office Visit Section of Infectious Diseases in [place], [place] [address] [place] [phone] Kayleigh Small M.D. [address] [place] [phone] 08/06/2024 9:00 AM VP SECURITIES Infusion Department of Infusion Therapy in [address] [phone] Melinda Isaac APRN, C.N.P. [address] [place] [phone] 08/07/2024 9:00 AM VP SECURITIES Infusion Department of Infusion Therapy in [address] [phone] Melinda Isaac APRN, C.N.P. [address] [place] [phone] 08/08/2024 9:00 AM VP SECURITIES Infusion Department of Infusion Therapy in [address] [phone] Melinda Isaac APRN, C.N.P. [address] [place] [phone] 08/09/2024 9:00 AM VP SECURITIES Infusion Department of Infusion Therapy in [address] [phone] Melinda Isaac APRN, C.N.P. [address] [place] [phone] 08/10/2024 9:00 AM VP SECURITIES Infusion Department of Infusion Therapy in [address] [phone] Melinda Isaac APRN, C.N.P. [address] [place] [phone] 08/11/2024 9:00 AM VP SECURITIES Infusion Department of Infusion Therapy in [address] [phone] Melinda Isaac APRN, C.N.P. [address] [place] [phone] 08/12/2024 9:00 AM VP SECURITIES Infusion Department of Infusion Therapy in [address] [phone] Melinda Isaac APRN, C.N.P. [address] [place] [phone] 08/13/2024 8:30 AM VP SECURITIES Infusion Department of Infusion Therapy in [address] [phone] Melinda Isaac APRN, C.N.P. [address] [place] [phone] 08/14/2024 9:00 AM VP SECURITIES Infusion Department of Infusion Therapy in [address] [phone] Melinda Isaac APRN, C.N.P. [address] [place] [phone] 08/15/2024 9:00 AM VP SECURITIES Infusion Department of Infusion Therapy in [address] [phone] Melinda Isaac APRN, C.N.P. [address] [place] [phone] 08/16/2024 9:00 AM VP SECURITIES Infusion Department of Infusion Therapy in [address] [phone] Melinda Isaac APRN, C.N.P. [address] [place] [phone] 08/17/2024 9:00 AM VP SECURITIES Infusion Department of Infusion Therapy in [address] [phone] Melinda Isaac APRN, C.N.P. [address] [place] [phone] 08/18/2024 9:00 AM VP SECURITIES Infusion Department of Infusion Therapy in [address] [phone] Melinda Isaac APRN, C.N.P. [address] [place] [phone] Scheduled Orders Name Type Priority Associated Diagnoses Orde r Schedule HemoQuant, Feces Lab Routine Blood In Stool Expected: 08/11/2024, Expires: 10/09/2025 documented as of this encounter Results * DX Chest AP or PA and Lateral 2 Views (07/11/2024 11:26 AM VP SECURITIES) Anatomical Region Laterality Modality Chest, Thoracic RST LOS, Tho racic ARZ LOS, Thoracic FLA LOS N/A Digital Radiography Impressions 07/11/2024 11:59 AM VP SECURITIES No direct comparison available at time of [...] within normal limits. Narrative 07/11/2024 11:59 AM VP SECURITIES EXAM: DX CHEST AP OR PA AND [...] (ABNORMAL) Basic Metabolic Panel (07/11/2024 11:17 AM VP SECURITIES) Potassium, P 3.6 3.6 - 5.2 mmol/L 07/11/2024 1:43 PM VP SECURITIES OWAT Sodium, P 141 135 - 145 mmol/L 07/11/2024 1:43 PM VP SECURITIES OWAT Chloride, P 104 98 - 107 mmol/L 07/11/2024 1:43 PM VP SECURITIES OWAT Bicarbonate, P 27 22 - 29 mmol/L 07/11/2024 1:43 PM VP SECURITIES OWAT Anion Gap, P 10 7 - 15 07/11/2024 1:43 PM VP SECURITIES OWAT BUN (Blood Urea Nitrogen), P 18 6 - 21 mg/dL 07/11/2024 1:43 PM VP SECURITIES OWAT Creatinine 0.53(L) 0.59 - 1.04 mg/dL 07/11/2024 1:43 PM VP SECURITIES OWAT Estimated GFR (eGFR) >90 >=60 mL/min/BSA 07/11/2024 1:43 PM VP SECURITIES OWAT Comment: Estimated GFR calculated using the 2020 CKD_EPI creatinine equation. Calcium, Total, P 9.0 8.6 - 10.0 mg/dL 07/11/2024 1:43 PM VP SECURITIES OWAT Glucose, P 126 70 - 140 mg/dL 07/11/2024 1:43 PM VP SECURITIES OWAT Blood (Blood, Venous) 07/11/2024 11:17 AM VP SECURITIES 07/11/2024 12:57 PM VP SECURITIES us Prudence TO, P.A.-C. LAB BLOOD ADD-ON Final Result [facility] [address] [place] [address], [facility] OWAT [facility] in [place] [address] [place] [address] * (ABNORMAL) CBC with Differential, Blood (07/11/2024 11:17 AM VP SECURITIES) Hemoglobin 10.0(L) 11.6 - 15.0 g/dL 07/11/2024 11:25 AM VP SECURITIES FB60 Hematocrit 30.7(L) 35.5 - 44.9 % 07/11/2024 11:25 AM VP SECURITIES FB60 Erythrocytes 3.39(L) 3.92 - 5.13 x10(12)/L 07/11/2024 11:25 AM VP SECURITIES FB60 MCV 90.6 78.2 - 97.9 fL 07/11/2024 11:25 AM VP SECURITIES FB60 RBC Distrib Width 14.9 12.2 - 16.1 % 07/11/2024 11:25 AM VP SECURITIES FB60 Platelet Count 678(H) 157 - 371 x10(9)/L 07/11/2024 11:25 AM VP SECURITIES FB60 Leukocytes 14.7(H) 3.4 - 9.6 x10(9)/L 07/11/2024 11:25 AM VP SECURITIES FB60 Neutrophils 11.68(H) 1.56 - 6.45 x10(9)/L 07/11/2024 11:25 AM VP SECURITIES FB60 Lymphocytes 1.65 0.95 - 3.07 x10(9)/L 07/11/2024 11:25 AM VP SECURITIES FB60 Monocytes 1.28(H) 0.26 - 0.81 x10(9)/L 07/11/2024 11:25 AM VP SECURITIES FB60 Eosinophils 0.06 0.03 - 0.48 x10(9)/L 07/11/2024 11:25 AM VP SECURITIES FB60 Basophils <0.04 0.01 - 0.08 x10(9)/L 07/11/2024 11:25 AM VP SECURITIES FB60 Blood (Blood, Venous) 07/11/2024 11:17 AM VP SECURITIES 07/11/2024 11:17 AM VP SECURITIES us Prudence TO, P.A.-C. LAB BLOOD ADD-ON Final Result [facility] [address] [place] [address], [facility] FB60 [facility] in [place] [address] [place] [address] documented in this encounter Visit Diagnoses Diagnosis Hypokalemia- Primary Pneumonia Effusion Pleural Blood In Stool Pneumonia documented in this encounter Additional Health Concerns Assessment Noted Time PHQ-9 Depression Total Score: 22 025 7:19 PM VP SECURITIES documented as of this encounter Care Teams Head Cd Reactor Operator Relationship Specialty Start Date End Date Prudence Mena MPAS, P.A.-C. [address] [place] [phone] PCP - General Internal Medicine 02/08/24 documented as of this encounter
--- OUTSIDE RECORDS SUMMARY | 2024-07-28 21:14 | XMS_ITS | Encounter Summary ---
Author Organization [facility] Address [address] [place] [id number] Care Team Providers Care Escrow Officer Name Role Phone Prudence Mena P.A.-C. Primary Care Pro vider Reason for Visit * Reason Comments Outpatient Infusion Encounter Details Date Type Department Care Team (Late st Contact Info) Description 07/23/2024 9:00 AM PHYSIOLOGY TEACHER Infusion Department of Infusion Therapy in [address] [phone] Melinda Isaac, FRED, C.N.P. [address] [place] [phone] Empyema Pleural (HCC) (Primary Dx) Social History Tobacco Use Types Packs/Day Years Used Date Smoking Tobacco: Former Cigarettes 1.5 0.1 S tarted: 06/21/2024 Passive Smoke Exposure: Past Smokeless Tobacco: Never Alcohol Use Standard Drinks/Week Comments Yes 0 (1 standard drink = 0.6 oz pur e alcohol) socially [facility] Utilities Answer Date Recorded In the [...] Never 07/27/2022 How often do you attend scientologist or hoahaoism serv ices? Never 07/27/2022 Do you belong to any clubs o r organizations such as scientologist groups, unions, fraternal or athletic groups, or [...] Answer Date Recorded PHQ-2 Score 6 07/10/2024 [facility] [place] of Occupat ional Health - Occupational Stress [...] Sign Reading Time Taken Comments Blood Pressure 120/79 07/23/2024 9:10 AM PHYSIOLOGY TEACHER Pulse 93 07/23/2024 9:10 AM PHYSIOLOGY TEACHER Temperature 36.6 C (97.9 F) 07/23/2024 9:10 AM PHYSIOLOGY TEACHER Respiratory Rate 18 07/23/2024 9:10 AM PHYSIOLOGY TEACHER Oxygen Saturation 100% 07/23/2024 9:10 AM PHYSIOLOGY TEACHER Inhaled Oxygen Concentration - - Weight - - Height - - Body Mass Index - - documented in this encounter Plan of Treatment Upcoming Encounters Date Type Department Care Team (Late st Contact Info) Description 07/29/2024 10:00 AM PHYSIOLOGY TEACHER Infusion Department of Infusion Therapy in [address] [phone] Melinda Isaac APRN, C.N.P. [address] [place] [phone] 07/29/2024 2:20 PM PHYSIOLOGY TEACHER Office Visit Department of Community Internal Medicine in [place], [place] [address] [place] [phone] Prudence Mena MPAS, P.A.-C. [address] [place] [phone] 07/30/2024 9:00 AM PHYSIOLOGY TEACHER Infusion Department of Infusion Therapy in [address] [address] Melinda Isaac APRN, C.N.P. [address] [place] [phone] 07/31/2024 8:00 AM PHYSIOLOGY TEACHER Infusion Department of Infusion Therapy in [address] [phone] Melinda Isaac APRN, C.N.P. [address] [place] [phone] 08/01/2024 7:00 AM PHYSIOLOGY TEACHER Infusion Department of Infusion Therapy in [address] [phone] Melinda Isaac APRN, C.N.P. [address] [place] [phone] 08/02/2024 9:00 AM PHYSIOLOGY TEACHER Infusion Department of Infusion Therapy in [address] [phone] Melinda Isaac APRN, C.N.P. [address] [place] [phone] 08/02/2024 12:30 PM PHYSIOLOGY TEACHER Clinical Communication Virtual Review in [place], [place] 200 [place] [phone] 08/03/2024 9:00 AM PHYSIOLOGY TEACHER Infusion Department of Infusion Therapy in [address] [phone] Melinda Isaac APRN, C.N.P. [address] [place] [phone] 08/04/2024 9:00 AM PHYSIOLOGY TEACHER Infusion Department of Infusion Therapy in [address] [phone] Melinda Isaac APRN, C.N.P. [address] [place] [phone] 08/05/2024 8:45 AM PHYSIOLOGY TEACHER Appointment Department of Radiology, [facility], in [place], [place] [address] [place] [phone] Kayleigh Small M.D. [address] [place] [phone] 08/05/2024 9:00 AM PHYSIOLOGY TEACHER Infusion Department of Infusion Therapy in [address] [phone] Melinda Isaac APRN, C.N.P. [address] [place] [phone] 08/05/2024 11:00 AM PHYSIOLOGY TEACHER Office Visit Section of Infectious Diseases in [place], [place] [address] [place] [phone] Kayleigh Small M.D. [address] [place] [phone] 08/06/2024 9:00 AM PHYSIOLOGY TEACHER Infusion Department of Infusion Therapy in [address] [phone] Melinda Isaac APRN, C.N.P. [address] [place] [phone] 08/07/2024 9:00 AM PHYSIOLOGY TEACHER Infusion Department of Infusion Therapy in [address] [address] Melinda Isaac APRN, C.N.P. [address] [place] [phone] 08/08/2024 9:00 AM PHYSIOLOGY TEACHER Infusion Department of Infusion Therapy in [address] [address] Melinda Isaac APRN, C.N.P. [address] [place] [phone] 08/09/2024 9:00 AM PHYSIOLOGY TEACHER Infusion Department of Infusion Therapy in [address] [phone] Melinda Isaac APRN, C.N.P. [address] [place] [phone] 08/10/2024 9:00 AM PHYSIOLOGY TEACHER Infusion Department of Infusion Therapy in [address] [phone] Melinda Isaac APRN, C.N.P. [address] [place] [phone] 08/11/2024 9:00 AM PHYSIOLOGY TEACHER Infusion Department of Infusion Therapy in [address] [address] Melinda Isaac APRN, C.N.P. [address] [place] [phone] 08/12/2024 9:00 AM PHYSIOLOGY TEACHER Infusion Department of Infusion Therapy in [address] [phone] Melinda Isaac APRN, C.N.P. [address] [place] [phone] 08/13/2024 8:30 AM PHYSIOLOGY TEACHER Infusion Department of Infusion Therapy in [address] [phone] Melinda Isaac APRN, C.N.P. [address] [place] [phone] 08/14/2024 9:00 AM PHYSIOLOGY TEACHER Infusion Department of Infusion Therapy in [address] [phone] Melinda Isaac APRN, C.N.P. [address] [place] [phone] 08/15/2024 9:00 AM PHYSIOLOGY TEACHER Infusion Department of Infusion Therapy in [address] [phone] Melinda Isaac APRN, C.N.P. [address] [place] [phone] 08/16/2024 9:00 AM PHYSIOLOGY TEACHER Infusion Department of Infusion Therapy in [address] [phone] Melinda Isaac APRN, C.N.P. [address] [place] [phone] 08/17/2024 9:00 AM PHYSIOLOGY TEACHER Infusion Department of Infusion Therapy in [address] [phone] Melinda Isaac APRN, C.N.P. [address] [place] [phone] 08/18/2024 9:00 AM PHYSIOLOGY TEACHER Infusion Department of Infusion Therapy in [address] [phone] Melinda Isaac APRN, C.N.P. [address] [place] [phone] documented as of this encounter Visit Diagnoses Diagnosis Empyema Pleural (HCC)- Primary documented in this encounter Administered Medications Inactive Administered Medications - up to 3 most recent administrations Medication Order MAR Action Action Date Dose Rate Site cefTRIAXone injection 2 g (Rocephin) 2 g, intravenous, Once, On Mon07/23/24 at 0915, For 1 dose, Every 24 hours If needed, reconstitute vial per package insert instructions. See IVAG for administration guidelines., Drug Monitoring Program: Pharmacist to adjust medication dosing based on indication and drug clearance factors., Indications: Respiratory tract infection, community acquiredIndications:Respiratory tract infection, community acquired Given 07/23/2024 9:15 AM PHYSIOLOGY TEACHER 2 g sodium chloride 0.9 % injection 10-30 mL 10-30 mL, intravenous, As needed, line care, Starting on Mon07/23/24 at 0858, Prior to and following infusion, between multiple consecutive infusions.10 mL to each lumen.Indications:Empyema Pleural (HCC) Given 07/23/2024 9:19 AM PHYSIOLOGY TEACHER 10 mL Given 07/23/2024 9:15 AM PHYSIOLOGY TEACHER 10 mL documented in this encounter Additional Health Concerns Assessment Noted Time PHQ-9 Depression Total Score: 22 025 7:19 PM PHYSIOLOGY TEACHER documented as of this encounter Care Teams Escrow Officer Relationship Specialty Start Date End Date Prudence Mena MPAS, P.A.-C. [address] [place] [phone] PCP - General Internal Medicine 02/08/24 documented as of this encounter
--- OUTSIDE RECORDS SUMMARY | 2024-07-28 21:14 | XMS_ITS | Encounter Summary ---
Author Organization [facility] Address [address] [place] [address] Care Team Providers Care Private Client Advisor Name Role Phone Prudence Mena P.A.-C. Primary Care Pro vider Reason for Visit * Reason Comments Outpatient Infusion Dressing Change Encounter Details Date Type Department Care Team (Late st Contact Info) Description 07/25/2024 9:00 AM EXTERMINATION SUPERVISOR Infusion Department of Infusion Therapy in [address] [address] Melinda Isaac, FRED, C.N.P. [address] [place] [phone] Empyema Pleural (HCC) (Primary Dx) Social History Tobacco Use Types Packs/Day Years Used Date Smoking Tobacco: Former Cigarettes 1.5 0.1 S tarted: 06/21/2024 Passive Smoke Exposure: Past Smokeless Tobacco: Never Alcohol Use Standard Drinks/Week Comments Yes 0 (1 standard drink = 0.6 oz pur e alcohol) socially [facility] Utilities Answer Date Recorded In [...] Never 07/27/2022 How often do you attend orthodoxy or yarsani serv ices? Never 07/27/2022 Do you belong to any clubs o r organizations such as orthodoxy groups, unions, fraternal or athletic groups, or [...] Answer Date Recorded PHQ-2 Score 6 07/10/2024 [facility] of Occupat ional Health - Occupational Stress [...] Sign Reading Time Taken Comments Blood Pressure 139/95 07/25/2024 9:05 AM EXTERMINATION SUPERVISOR Pulse 103 07/25/2024 9:05 AM EXTERMINATION SUPERVISOR Temperature 36.6 C (97.9 F) 07/25/2024 9:05 AM EXTERMINATION SUPERVISOR Respiratory Rate 18 07/25/2024 9:05 AM EXTERMINATION SUPERVISOR Oxygen Saturation 100% 07/25/2024 9:05 AM EXTERMINATION SUPERVISOR Inhaled Oxygen Concentration - - Weight - - Height - - Body Mass Index - - documented in this encounter Plan of Treatment Upcoming Encounters Date Type Department Care Team (Late st Contact Info) Description 07/29/2024 10:00 AM EXTERMINATION SUPERVISOR Infusion Department of Infusion Therapy in [address] [address] Melinda Isaac APRN, C.N.P. [address] [place] [phone] 07/29/2024 2:20 PM EXTERMINATION SUPERVISOR Office Visit Department of Community Internal Medicine in [place], [place] [address] [place] [phone] Prudence Mena MPAS, P.A.-C. 300 [place] [phone] 07/30/2024 9:00 AM EXTERMINATION SUPERVISOR Infusion Department of Infusion Therapy in [address] [address] Melinda Isaac APRN, C.N.P. [address] [place] [phone] 07/31/2024 8:00 AM EXTERMINATION SUPERVISOR Infusion Department of Infusion Therapy in [address] [address] Melinda Isaac APRN, C.N.P. [address] [place] [phone] 08/01/2024 7:00 AM EXTERMINATION SUPERVISOR Infusion Department of Infusion Therapy in [address] [address] Melinda Isaac APRN, C.N.P. [address] [place] [phone] 08/02/2024 9:00 AM EXTERMINATION SUPERVISOR Infusion Department of Infusion Therapy in [address] [phone] Melinda Isaac APRN, C.N.P. [address] [place] [phone] 08/02/2024 12:30 PM EXTERMINATION SUPERVISOR Clinical Communication Virtual Review in [place], [place] 200 [place] [address] 08/03/2024 9:00 AM EXTERMINATION SUPERVISOR Infusion Department of Infusion Therapy in [address] [phone] Melinda Isaac APRN, C.N.P. [address] [place] [phone] 08/04/2024 9:00 AM EXTERMINATION SUPERVISOR Infusion Department of Infusion Therapy in [address] [phone] Melinda Isaac APRN, C.N.P. [address] [place] [phone] 08/05/2024 8:45 AM EXTERMINATION SUPERVISOR Appointment Department of Radiology, [facility], in [place], [place] [address] [place] [phone] Kayleigh Small M.D. [address] [place] [phone] 08/05/2024 9:00 AM EXTERMINATION SUPERVISOR Infusion Department of Infusion Therapy in [address] [phone] Melinda Isaac APRN, C.N.P. [address] [place] [phone] 08/05/2024 11:00 AM EXTERMINATION SUPERVISOR Office Visit Section of Infectious Diseases in [place], [place] [address] [place] [phone] Kayleigh Small M.D. [address] [place] [phone] 08/06/2024 9:00 AM EXTERMINATION SUPERVISOR Infusion Department of Infusion Therapy in [address] [address] Melinda Isaac APRN, C.N.P. [address] [place] [phone] 08/07/2024 9:00 AM EXTERMINATION SUPERVISOR Infusion Department of Infusion Therapy in [address] [address] Melinda Isaac APRN, C.N.P. [address] [place] [phone] 08/08/2024 9:00 AM EXTERMINATION SUPERVISOR Infusion Department of Infusion Therapy in [address] [address] Melinda Isaac APRN, C.N.P. [address] [place] [phone] 08/09/2024 9:00 AM EXTERMINATION SUPERVISOR Infusion Department of Infusion Therapy in [address] [address] Melinda Isaac APRN, C.N.P. [address] [place] [phone] 08/10/2024 9:00 AM EXTERMINATION SUPERVISOR Infusion Department of Infusion Therapy in [address] [address] Melinda Isaac APRN, C.N.P. [address] [place] [phone] 08/11/2024 9:00 AM EXTERMINATION SUPERVISOR Infusion Department of Infusion Therapy in [address] [address] Melinda Isaac APRN, C.N.P. [address] [place] [phone] 08/12/2024 9:00 AM EXTERMINATION SUPERVISOR Infusion Department of Infusion Therapy in [address] [address] Melinda Isaac APRN, C.N.P. [address] [place] [phone] 08/13/2024 8:30 AM EXTERMINATION SUPERVISOR Infusion Department of Infusion Therapy in [address] [address] Melinda Isaac APRN, C.N.P. [address] [place] [phone] 08/14/2024 9:00 AM EXTERMINATION SUPERVISOR Infusion Department of Infusion Therapy in [address] [address] Melinda Isaac APRN, C.N.P. [address] [place] [phone] 08/15/2024 9:00 AM EXTERMINATION SUPERVISOR Infusion Department of Infusion Therapy in [address] [address] Melinda Isaac APRN, C.N.P. [address] [place] [phone] 08/16/2024 9:00 AM EXTERMINATION SUPERVISOR Infusion Department of Infusion Therapy in [address] [address] Melinda Isaac APRN, C.N.P. [address] [place] [phone] 08/17/2024 9:00 AM EXTERMINATION SUPERVISOR Infusion Department of Infusion Therapy in [address] [address] Melinda Isaac APRN, C.N.P. [address] [place] [phone] 08/18/2024 9:00 AM EXTERMINATION SUPERVISOR Infusion Department of Infusion Therapy in [address] [address] Melinda Isaac APRN, C.N.P. [address] [place] [phone] documented as of this encounter Visit Diagnoses Diagnosis Empyema Pleural (HCC)- Primary documented in this encounter Administered Medications Inactive Administered Medications - up to 3 most recent administrations Medication Order MAR Action Action Date Dose Rate Site cefTRIAXone injection 2 g (Rocephin) 2 g, intravenous, Once, On Gloria 07/25/24 at 0915, For 1 dose, Every 24 hours If needed, reconstitute vial per package insert instructions. See IVAG for administration guidelines., Drug Monitoring Program: Pharmacist to adjust medication dosing based on indication and drug clearance factors., Indications: Respiratory tract infection, community acquiredIndications:Respiratory tract infection, community acquired Given 07/25/2024 9:08 AM EXTERMINATION SUPERVISOR 2 g sodium chloride 0.9 % injection 10-30 mL 10-30 mL, intravenous, As needed, line care, Starting on Gloria 07/25/24 at 0857, Prior to and following infusion, between multiple consecutive infusions.10 mL to each lumen.Indications:Empyema Pleural (HCC) Given 07/25/2024 9:13 AM EXTERMINATION SUPERVISOR 10 mL Given 07/25/2024 9:08 AM EXTERMINATION SUPERVISOR 10 mL documented in this encounter Additional Health Concerns Assessment Noted Time PHQ-9 Depression Total Score: 22 025 7:19 PM EXTERMINATION SUPERVISOR documented as of this encounter Care Teams Private Client Advisor Relationship Specialty Start Date End Date Prudence Mena MPAS, P.A.-C. [address] [place] [address] PCP - General Internal Medicine 02/08/24 documented as of this encounter
--- OUTSIDE RECORDS SUMMARY | 2024-07-28 21:14 | XMS_ITS | Encounter Summary ---
Author Organization [facility] Address [address] [place] [address] Care Team Providers Care Compliance Specialist Name Role Phone Prudence Mena P.A.-C. Primary Care Pro vider Reason for Visit * Reason Comments Outpatient Infusion Rocephin Encounter Details Date Type Department Care Team (Late st Contact Info) Description 07/24/2024 9:00 AM PROJECT CONSULTANT Infusion Department of Infusion Therapy in [address] [phone] Melinda Isaac, FRED, C.N.P. [address] [place] [phone] Empyema Pleural (HCC) (Primary Dx) Social History Tobacco Use Types Packs/Day Years Used Date Smoking Tobacco: Former Cigarettes 1.5 0.1 S tarted: 06/21/2024 Passive Smoke Exposure: Past Smokeless Tobacco: Never Alcohol Use Standard Drinks/Week Comments Yes 0 (1 standard drink = 0.6 oz pur e alcohol) socially [facility] Utilities Answer Date Recorded In [...] Never 07/27/2022 How often do you attend judaism or taoism serv ices? Never 07/27/2022 Do you belong to any clubs o r organizations such as judaism groups, unions, fraternal or athletic groups, or [...] Answer Date Recorded PHQ-2 Score 6 07/10/2024 [facility] of Occupat ional Health - Occupational Stress [...] Sign Reading Time Taken Comments Blood Pressure 131/82 07/24/2024 9:20 AM PROJECT CONSULTANT Pulse 110 07/24/2024 9:20 AM PROJECT CONSULTANT Temperature 36.6 C (97.9 F) 07/24/2024 9:20 AM PROJECT CONSULTANT Respiratory Rate 16 07/24/2024 9:20 AM PROJECT CONSULTANT Oxygen Saturation 94% 07/24/2024 9:20 AM PROJECT CONSULTANT Inhaled Oxygen Concentration - - Weight - - Height - - Body Mass Index - - documented in this encounter Plan of Treatment Upcoming Encounters Date Type Department Care Team (Late st Contact Info) Description 07/29/2024 10:00 AM PROJECT CONSULTANT Infusion Department of Infusion Therapy in [address] [address] Melinda Isaac APRN, C.N.P. [address] [place] [phone] 07/29/2024 2:20 PM PROJECT CONSULTANT Office Visit Department of Community Internal Medicine in [place], [place] [address] [place] [phone] Prudence Mena MPAS, P.A.-C. 300 [place] [address] 07/30/2024 9:00 AM PROJECT CONSULTANT Infusion Department of Infusion Therapy in [address] [phone] Melinda Isaac APRN, C.N.P. [address] [place] [phone] 07/31/2024 8:00 AM PROJECT CONSULTANT Infusion Department of Infusion Therapy in [address] [address] Melinda Isaac APRN, C.N.P. [address] [place] [phone] 08/01/2024 7:00 AM PROJECT CONSULTANT Infusion Department of Infusion Therapy in [address] [address] Melinda Isaac APRN, C.N.P. [address] [place] [phone] 08/02/2024 9:00 AM PROJECT CONSULTANT Infusion Department of Infusion Therapy in [address] [phone] Melinda Isaac APRN, C.N.P. [address] [place] [phone] 08/02/2024 12:30 PM PROJECT CONSULTANT Clinical Communication Virtual Review in [place], [place] 200 [place] [address] 08/03/2024 9:00 AM PROJECT CONSULTANT Infusion Department of Infusion Therapy in [address] [address] Melinda Isaac APRN, C.N.P. [address] [place] [phone] 08/04/2024 9:00 AM PROJECT CONSULTANT Infusion Department of Infusion Therapy in [address] [phone] Melinda Isaac APRN, C.N.P. [address] [place] [phone] 08/05/2024 8:45 AM PROJECT CONSULTANT Appointment Department of Radiology, [facility], in [place], [place] [address] [place] [phone] Kayleigh Small M.D. [address] [place] [phone] 08/05/2024 9:00 AM PROJECT CONSULTANT Infusion Department of Infusion Therapy in [address] [phone] Melinda Isaac APRN, C.N.P. [address] [place] [phone] 08/05/2024 11:00 AM PROJECT CONSULTANT Office Visit Section of Infectious Diseases in [place], [place] [address] [place] [phone] Kayleigh Small M.D. [address] [place] [phone] 08/06/2024 9:00 AM PROJECT CONSULTANT Infusion Department of Infusion Therapy in [address] [address] Melinda Isaac APRN, C.N.P. [address] [place] [phone] 08/07/2024 9:00 AM PROJECT CONSULTANT Infusion Department of Infusion Therapy in [address] [address] Melinda Isaac APRN, C.N.P. [address] [place] [phone] 08/08/2024 9:00 AM PROJECT CONSULTANT Infusion Department of Infusion Therapy in [address] [address] Melinda Isaac APRN, C.N.P. [address] [place] [phone] 08/09/2024 9:00 AM PROJECT CONSULTANT Infusion Department of Infusion Therapy in [address] [address] Melinda Isaac APRN, C.N.P. [address] [place] [phone] 08/10/2024 9:00 AM PROJECT CONSULTANT Infusion Department of Infusion Therapy in [address] [address] Melinda Isaac APRN, C.N.P. [address] [place] [phone] 08/11/2024 9:00 AM PROJECT CONSULTANT Infusion Department of Infusion Therapy in [address] [address] Melinda Isaac APRN, C.N.P. [address] [place] [phone] 08/12/2024 9:00 AM PROJECT CONSULTANT Infusion Department of Infusion Therapy in [address] [address] Melinda Isaac APRN, C.N.P. [address] [place] [phone] 08/13/2024 8:30 AM PROJECT CONSULTANT Infusion Department of Infusion Therapy in [address] [address] Melinda Isaac APRN, C.N.P. [address] [place] [phone] 08/14/2024 9:00 AM PROJECT CONSULTANT Infusion Department of Infusion Therapy in [address] [address] Melinda Isaac APRN, C.N.P. [address] [place] [phone] 08/15/2024 9:00 AM PROJECT CONSULTANT Infusion Department of Infusion Therapy in [address] [phone] Melinda Isaac APRN, C.N.P. [address] [place] [phone] 08/16/2024 9:00 AM PROJECT CONSULTANT Infusion Department of Infusion Therapy in [address] [address] Melinda Isaac APRN, C.N.P. [address] [place] [phone] 08/17/2024 9:00 AM PROJECT CONSULTANT Infusion Department of Infusion Therapy in [address] [address] Melinda Isaac APRN, C.N.P. [address] [place] [phone] 08/18/2024 9:00 AM PROJECT CONSULTANT Infusion Department of Infusion Therapy in [address] [address] Melinda Isaac APRN, C.N.P. [address] [place] [phone] documented as of this encounter Visit Diagnoses Diagnosis Empyema Pleural (HCC)- Primary documented in this encounter Administered Medications Inactive Administered Medications - up to 3 most recent administrations Medication Order MAR Action Action Date Dose Rate Site cefTRIAXone injection 2 g (Rocephin) 2 g, intravenous, Once, On Mon07/24/24 at 0945, For 1 dose, Every 24 hours If needed, reconstitute vial per package insert instructions. See IVAG for administration guidelines., Drug Monitoring Program: Pharmacist to adjust medication dosing based on indication and drug clearance factors., Indications: Respiratory tract infection, community acquiredIndications:Respiratory tract infection, community acquired Given 07/24/2024 9:33 AM PROJECT CONSULTANT 2 g sodium chloride 0.9 % injection 10-30 mL 10-30 mL, intravenous, As needed, line care, Starting on Mon07/24/24 at 0917, Prior to and following infusion, between multiple consecutive infusions.10 mL to each lumen.Indications:Empyema Pleural (HCC) Given 07/24/2024 9:43 AM PROJECT CONSULTANT 10 mL Given 07/24/2024 9:30 AM PROJECT CONSULTANT 10 mL documented in this encounter Additional Health Concerns Assessment Noted Time PHQ-9 Depression Total Score: 22 025 7:19 PM PROJECT CONSULTANT documented as of this encounter Care Teams Compliance Specialist Relationship Specialty Start Date End Date Prudence Mena MPAS, P.A.-C. [address] [place] [address] PCP - General Internal Medicine 02/08/24 documented as of this encounter
--- OUTSIDE RECORDS SUMMARY | 2024-07-28 21:14 | XMS_ITS | Encounter Summary ---
Author Organization [facility] Address [address] [place] [address] Care Team Providers Care Assistant General Manager Name Role Phone Prudence Mena P.A.-C. Primary Care Pro vider Reason for Referral * Outpatient (Routine) - Closed Specialty Diagnoses / Procedures Referred By Talia galeas Referred To Contact Diagnoses Pneumonia Procedures DX Chest AP or PA and Lateral 2 Views Prudence Mena MPAS, P.A.-C. [address] [place] [address] Phone: tel: [facility] Referral ID Status Reason Start Date Expiration Date Visits Re quested Visits Authorized [id number] Closed 07/11/2024 07/11/2025 1 1 ER Reason for Visit * Outpatient (Routine) - Closed Specialty Diagnoses / Procedures Referred By Contac t Referred To Contact Diagnoses Pneumonia Procedures DX Chest AP or PA and Lateral 2 Views Prudence Mena MPAS, P.A.-C. [address] [place] [address] Phone: tel: fax: [facility] Region Referral ID Status Reason Start Date Expiration Date Visits Re quested Visits Authorized [id number] Closed 07/11/2024 07/11/2025 1 1 Encounter Details Date Type Department Care Team (Latest Contact Info) Description 07/11/2024 11:17 AM WEDGER - 07/11/2024 11:59 PM WEDGER Hospital Encounter Department of Radiology in [place], [place] 300 [facility] [place] [phone] Prudence Mena MPAS, P.A.-C. 300 [facility] [place] [phone] Pneumonia Discharge Disposition: Home or Self Care Social History Tobacco Use Types Packs/Day Years Used Date Smoking Tobacco: Former Cigarettes 1.5 0.1 S tarted: 06/21/2024 Passive Smoke Exposure: Past Smokeless Tobacco: Never Alcohol Use Standard Drinks/Week Comments Yes 0 (1 standard drink = 0.6 oz pur e alcohol) socially [facility] Utilities Answer Date Recorded In the past 12 months has e electric, gas, oil, or water [employer] threatened to shut off services in your [...] How often do you attend mormonism or evangelical serv ices? Never 07/27/2022 Do you belong [...] Answer Date Recorded PHQ-2 Score 6 07/10/2024 [facility] - [...] (FLOVENT DISKUS) 100 mcg/actuation diskus inhaler 06/29/2018 levoFLOXacin (Levaquin) 750 mg tabletIndication s:Pneumonia Take 1 tablet (750 mg total) by mouth daily before morning meal. 7 tablet 07/11/2024 5 documented as of this encounter Miscellaneous Notes [...] her back in clinic in 1 week. ER documented in this encounter Plan of Treatment Upcoming Encounters Date Type Department Care Team (Late st Contact Info) Description 07/29/2024 10:00 AM WEDGER Infusion Department of Infusion Therapy in [address] [address] Melinda Isaac APRN, C.N.P. [address] [place] [phone] 07/29/2024 2:20 PM WEDGER Office Visit Department of Community Internal Medicine in [place], [place] 300 [place] [phone] Prudence Mena MPAS, P.A.-C. 300 [place] [phone] 07/30/2024 9:00 AM WEDGER Infusion Department of Infusion Therapy in [address] [address] Melinda Isaac APRN, C.N.P. [address] [place] [phone] 07/31/2024 8:00 AM WEDGER Infusion Department of Infusion Therapy in [address] [address] Melinda Isaac APRN, C.N.P. [address] [place] [phone] 08/01/2024 7:00 AM WEDGER Infusion Department of Infusion Therapy in [address] [address] Melinda Isaac APRN, C.N.P. [address] [place] [phone] 08/02/2024 9:00 AM WEDGER Infusion Department of Infusion Therapy in [address] [phone] Melinda Isaac APRN, C.N.P. [address] [place] [phone] 08/02/2024 12:30 PM WEDGER Clinical Communication Virtual Review in [place], [place] 200 [place] [address] 08/03/2024 9:00 AM WEDGER Infusion Department of Infusion Therapy in [address] [address] Melinda Isaac APRN, C.N.P. [address] [place] [phone] 08/04/2024 9:00 AM WEDGER Infusion Department of Infusion Therapy in [address] [address] Melinda Isaac APRN, C.N.P. [address] [place] [phone] 08/05/2024 8:45 AM WEDGER Appointment Department of Radiology, [facility], in [place], [place] [address] [place] [phone] Kayleigh Small M.D. [address] [place] [phone] 08/05/2024 9:00 AM WEDGER Infusion Department of Infusion Therapy in [address] [address] Melinda Isaac APRN, C.N.P. [address] [place] [phone] 08/05/2024 11:00 AM WEDGER Office Visit Section of Infectious Diseases in [place], [place] [address] [place] [phone] Kayleigh Small M.D. [address] [place] [phone] 08/06/2024 9:00 AM WEDGER Infusion Department of Infusion Therapy in [address] [address] Melinda Isaac APRN, C.N.P. [address] [place] [phone] 08/07/2024 9:00 AM WEDGER Infusion Department of Infusion Therapy in [address] [address] Melinda Isaac APRN, C.N.P. [address] [place] [phone] 08/08/2024 9:00 AM WEDGER Infusion Department of Infusion Therapy in [address] [address] Melinda Isaac APRN, C.N.P. [address] [place] [phone] 08/09/2024 9:00 AM WEDGER Infusion Department of Infusion Therapy in [address] [address] Melinda Isaac APRN, C.N.P. [address] [place] [phone] 08/10/2024 9:00 AM WEDGER Infusion Department of Infusion Therapy in [address] [address] Melinda Isaac APRN, C.N.P. [address] [place] [phone] 08/11/2024 9:00 AM WEDGER Infusion Department of Infusion Therapy in [address] [address] Melinda Isaac APRN, C.N.P. [address] [place] [phone] 08/12/2024 9:00 AM WEDGER Infusion Department of Infusion Therapy in [address] [address] Melinda Isaac APRN, C.N.P. [address] [place] [phone] 08/13/2024 8:30 AM WEDGER Infusion Department of Infusion Therapy in [address] [address] Melinda Isaac APRN, C.N.P. [address] [place] [phone] 08/14/2024 9:00 AM WEDGER Infusion Department of Infusion Therapy in [address] [address] Melinda Isaac APRN, C.N.P. [address] [place] [phone] 08/15/2024 9:00 AM WEDGER Infusion Department of Infusion Therapy in [address] [address] Melinda Isaac APRN, C.N.P. [address] [place] [phone] 08/16/2024 9:00 AM WEDGER Infusion Department of Infusion Therapy in [address] [address] Melinda Isaac APRN, C.N.P. [address] [place] [phone] 08/17/2024 9:00 AM WEDGER Infusion Department of Infusion Therapy in [address] [address] Melinda Isaac APRN, C.N.P. [address] [place] [phone] 08/18/2024 9:00 AM WEDGER Infusion Department of Infusion Therapy in [address] [address] Melinda Isaac APRN, C.N.P. [address] [place] [phone] documented as of this encounter Procedures Procedure Name Priority Date/Time Associated Diagnosis Comments DX CHEST AP OR PA AND LATERAL 2 VIEWS RAD - Routine (most inpatients and all outpatients) 07/11/2024 11:26 AM WEDGER Pneumonia documented in this encounter Results * DX Chest AP or PA and Lateral 2 Views (07/11/2024 11:26 AM WEDGER) Anatomical Region Laterality Modality Chest, Thoracic RST LOS, Tho racic ARZ LOS, Thoracic FLA LOS N/A Digital Radiography Impressions 07/11/2024 11:59 AM WEDGER No direct comparison available at time of [...] within normal limits. Narrative 07/11/2024 11:59 AM WEDGER EXAM: DX CHEST AP OR PA AND [...] upper abdomen is within normallimits. Prudence TO, PDmitryA.-C. IMG DIAGNOSTIC IM AGING PROCEDURES Final Result documented in this encounter Visit Diagnoses Diagnosis Pneumonia documented in this encounter Additional Health Concerns Assessment Noted Time PHQ-9 Depression Total Score: 22 025 7:19 PM WEDGER documented as of this encounter Care Teams Assistant General Manager Relationship Specialty Start Date End Date Prudence Mena MPAS, P.A.-C. [address] [place] [address] [place] [address] PCP - General Internal Medicine 02/08/24 documented as of this encounter
--- OUTSIDE RECORDS SUMMARY | 2024-07-28 21:14 | XMS_ITS | Encounter Summary ---
Author Organization [facility] Address [address] [place] [address] Care Team Providers Care Supervisor [employer] Name Role Phone Prudence Mena P.A.-C. Primary Care Pro vider Encounter Details Date Type Department Care Team (Late st Contact Info) Description 07/26/2024 9:00 AM LOG WASHER Infusion Department of Infusion Therapy in [address] [phone] Melinda Isaac, FRED, C.N.P. [address] [place] [phone] Empyema Pleural (HCC) (Primary Dx) Social History Tobacco Use Types Packs/Day Years Used Date Smoking Tobacco: Former Cigarettes 1.5 0.1 S tarted: 06/21/2024 Passive Smoke Exposure: Past Smokeless Tobacco: Never Alcohol Use Standard Drinks/Week Comments Yes 0 (1 standard drink = 0.6 oz pur e alcohol) socially [facility] Utilities Answer Date Recorded In the past 12 months has e electric, gas, oil, or water [employer] threatened to shut off services in your [...] How often do you attend voodoo or gnosticist serv ices? Never 07/27/2022 Do you belong [...] Answer Date Recorded PHQ-2 Score 6 07/10/2024 [facility] Occupational Stress Questionnaire Answer [...] Sign Reading Time Taken Comments Blood Pressure 130/76 07/26/2024 9:00 AM LOG WASHER Pulse 106 07/26/2024 9:00 AM LOG WASHER Temperature 35.9 C (96.6 F) 07/26/2024 9:00 AM LOG WASHER Respiratory Rate 18 07/26/2024 9:00 AM LOG WASHER Oxygen Saturation 96% 07/26/2024 9:00 AM LOG WASHER Inhaled Oxygen Concentration - - Weight - - Height - - Body Mass Index - - documented in this encounter Progress Notes * Tita Bell R.N. - 07/26/2024 9:00 AM CST Pt states she is feeling much worse than when she was first discharged from the hospital, includingincreased chest pain, unable to sleep. Pt feels that something is just not right. I have advised ptand her Mom she should be evaluated by a provider and they are in agreement with this plan. WASHER documented in this encounter Plan of Treatment Upcoming Encounters Date Type Department Care Team (Late st Contact Info) Description 07/29/2024 10:00 AM LOG WASHER Infusion Department of Infusion Therapy in [address] [address] Melinda Isaac APRN, C.N.P. [address] [place] [phone] 07/29/2024 2:20 PM LOG WASHER Office Visit Department of Community Internal Medicine in [place], [place] 300 [place] [phone] Prudence Mena MPAS, P.A.-C. 300 [place] [phone] 07/30/2024 9:00 AM LOG WASHER Infusion Department of Infusion Therapy in [address] [address] Melinda Isaac APRN, C.N.P. [address] [place] [phone] 07/31/2024 8:00 AM LOG WASHER Infusion Department of Infusion Therapy in [address] [address] Melinda Isaac APRN, C.N.P. [address] [place] [phone] 08/01/2024 7:00 AM LOG WASHER Infusion Department of Infusion Therapy in [address] [phone] Melinda Isaac APRN, C.N.P. [address] [place] [phone] 08/02/2024 9:00 AM LOG WASHER Infusion Department of Infusion Therapy in [address] [address] Melinda Isaac APRN, C.N.P. [address] [place] [phone] 08/02/2024 12:30 PM LOG WASHER Clinical Communication Virtual Review in [place], [place] 200 [place] [address] 08/03/2024 9:00 AM LOG WASHER Infusion Department of Infusion Therapy in [address] [address] Melinda Isaac APRN, C.N.P. [address] [place] [phone] 08/04/2024 9:00 AM LOG WASHER Infusion Department of Infusion Therapy in [address] [address] Melinda Isaac APRN, C.N.P. [address] [place] [phone] 08/05/2024 8:45 AM LOG WASHER Appointment Department of Radiology, [facility], in [place], [place] [address] [place] [phone] Kayleigh Small M.D. [address] [place] [phone] 08/05/2024 9:00 AM LOG WASHER Infusion Department of Infusion Therapy in [address] [address] Melinda Isaac APRN, C.N.P. [address] [place] [phone] 08/05/2024 11:00 AM LOG WASHER Office Visit Section of Infectious Diseases in [place], [place] [address] [place] [phone] Kayleigh Small M.D. [address] [place] [phone] 08/06/2024 9:00 AM LOG WASHER Infusion Department of Infusion Therapy in [address] [address] Melinda Isaac APRN, C.N.P. [address] [place] [phone] 08/07/2024 9:00 AM LOG WASHER Infusion Department of Infusion Therapy in [address] [address] Melinda Isaac APRN, C.N.P. [address] [place] [phone] 08/08/2024 9:00 AM LOG WASHER Infusion Department of Infusion Therapy in [address] [address] Melinda Isaac APRN, C.N.P. [address] [place] [phone] 08/09/2024 9:00 AM LOG WASHER Infusion Department of Infusion Therapy in [address] [address] Melinda Isaac APRN, C.N.P. [address] [place] [phone] 08/10/2024 9:00 AM LOG WASHER Infusion Department of Infusion Therapy in [address] [address] Melinda sIaac APRN, C.N.P. [address] [place] [phone] 08/11/2024 9:00 AM LOG WASHER Infusion Department of Infusion Therapy in [address] [address] Melinda Isaac APRN, C.N.P. [address] [place] [phone] 08/12/2024 9:00 AM LOG WASHER Infusion Department of Infusion Therapy in [address] [address] Melinda Isaac APRN, C.N.P. [address] [place] [phone] 08/13/2024 8:30 AM LOG WASHER Infusion Department of Infusion Therapy in [address] [address] Melinda Isaac APRN, C.N.P. [address] [place] [phone] 08/14/2024 9:00 AM LOG WASHER Infusion Department of Infusion Therapy in [address] [address] Melinda Isaac APRN, C.N.P. [address] [place] [phone] 08/15/2024 9:00 AM LOG WASHER Infusion Department of Infusion Therapy in [address] [address] Melinda Isaac APRN, C.N.P. [address] [place] [phone] 08/16/2024 9:00 AM LOG WASHER Infusion Department of Infusion Therapy in [address] [address] Melinda Isaac APRN, C.N.P. [address] [place] [phone] 08/17/2024 9:00 AM LOG WASHER Infusion Department of Infusion Therapy in [address] [address] Melinda Isaac APRN, C.N.P. [address] [place] [phone] 08/18/2024 9:00 AM LOG WASHER Infusion Department of Infusion Therapy in [address] [address] Melinda Isaac APRN, C.N.P. [address] [place] [phone] documented as of this encounter Visit Diagnoses Diagnosis Empyema Pleural (HCC)- Primary documented in this encounter Administered Medications Inactive Administered Medications - up to 3 most recent administrations Medication Order MAR Action Action Date Dose Rate Site cefTRIAXone injection 2 g (Rocephin) 2 g, intravenous, Once, On Mon07/26/24 at 0900, For 1 dose, Every 24 hours If needed, reconstitute vial per package insert instructions. See IVAG for administration guidelines., Drug Monitoring Program: Pharmacist to adjust medication dosing based on indication and drug clearance factors., Indications: Respiratory tract infection, community acquiredIndications:Respiratory tract infection, community acquired Given 07/26/2024 8:56 AM LOG WASHER 2 g sodium chloride 0.9 % injection 10-30 mL 10-30 mL, intravenous, As needed, line care, Starting on Mon07/26/24 at 0844, Prior to and following infusion, between multiple consecutive infusions.10 mL to each lumen.Indications:Empyema Pleural (HCC) Given 07/26/2024 9:00 AM LOG WASHER 10 mL Given 07/26/2024 8:56 AM LOG WASHER 10 mL documented in this encounter Additional Health Concerns Assessment Noted Time PHQ-9 Depression Total Score: 22 025 7:19 PM LOG WASHER documented as of this encounter Care Teams Supervisor [employer] Relationship Specialty Start Date End Date Prudence Mena MPAS, P.A.-C. [address] [place] [phone] PCP - General Internal Medicine 02/08/24 documented as of this encounter
--- OUTSIDE RECORDS SUMMARY | 2024-07-28 21:14 | XMS_ITS | Encounter Summary ---
Author Organization [facility] Address [address] [place] [address] Care Team Providers Care Magnetic Locater Name Role Phone Prudence Mena P.A.-C. Primary Care Pro vider Encounter Details Date Type Department Care Team (Late st Contact Info) Description 07/25/2024 Orders Only Division of Thoracic Surgery in [place], [place] [address] [place] [phone] Eveline Mariscal, PDmitryADmitry-C. [address] [place] [address] Social History Tobacco Use Types Packs/Day Years Used Date Smoking Tobacco: Former Cigarettes 1.5 0.1 S tarted: 06/21/2024 Passive Smoke Exposure: Past Smokeless Tobacco: Never Alcohol Use Standard Drinks/Week Comments Yes 0 (1 standard drink = 0.6 oz pur e alcohol) socially [facility] Utilities Answer Date Recorded In the past 12 months has [employer] gas, oil, or water [employer] threatened to shut off services in your [...] Never 07/27/2022 How often do you attend sabianist or gnosticism serv ices? Never 07/27/2022 Do you belong to any clubs o r organizations such as sabianist groups, unions, fraternal or athletic groups, or [...] Answer Date Recorded PHQ-2 Score 6 07/10/2024 [facility] - Occupational [...] st Contact Info) Description 07/29/2024 10:00 AM BUTCHER ALL ROUND Infusion Department of Infusion Therapy in [address] [address] Melinda Isaac, FRED, C.N.P. [address] [place] [address] 07/29/2024 2:20 PM BUTCHER ALL ROUND Office Visit Department of Community Internal Medicine in [place], [place] 300 [place] [phone] Prudence Mena, LATONIAS, P.A.-C. 300 [place] [phone] 07/30/2024 9:00 AM BUTCHER ALL ROUND Infusion Department of Infusion Therapy in [address] [address] Melinda Isaac APRN, C.N.P. [address] [place] [phone] 07/31/2024 8:00 AM BUTCHER ALL ROUND Infusion Department of Infusion Therapy in [address] [address] Melinda Isaac APRN, C.N.P. [address] [place] [phone] 08/01/2024 7:00 AM BUTCHER ALL ROUND Infusion Department of Infusion Therapy in [address] [address] Melinda Isaac APRN, C.N.P. [address] [place] [phone] 08/02/2024 9:00 AM BUTCHER ALL ROUND Infusion Department of Infusion Therapy in [address] [address] Melinda Isaac APRN, C.N.P. [address] [place] [phone] 08/02/2024 12:30 PM BUTCHER ALL ROUND Clinical Communication Virtual Review in [place], [place] 200 [place] [address] 08/03/2024 9:00 AM BUTCHER ALL ROUND Infusion Department of Infusion Therapy in [address] [phone] Melinda Isaac APRN, C.N.P. [address] [place] [phone] 08/04/2024 9:00 AM BUTCHER ALL ROUND Infusion Department of Infusion Therapy in [address] [phone] Melinda Isaac APRN, C.N.P. [address] [place] [phone] 08/05/2024 8:45 AM BUTCHER ALL ROUND Appointment Department of Radiology, [facility], in [address] [phone] Kayleigh Small M.D. [address] [place] [phone] 08/05/2024 9:00 AM BUTCHER ALL ROUND Infusion Department of Infusion Therapy in [address] [address] Melinda Isaac APRN, C.N.P. [address] [place] [phone] 08/05/2024 11:00 AM BUTCHER ALL ROUND Office Visit Section of Infectious Diseases in [address] [address] Kayleigh Small M.D. [address] [place] [phone] 08/06/2024 9:00 AM BUTCHER ALL ROUND Infusion Department of Infusion Therapy in [address] [address] Melinda Isaac APRN, C.N.P. [address] [place] [phone] 08/07/2024 9:00 AM BUTCHER ALL ROUND Infusion Department of Infusion Therapy in [address] [address] Melinda Isaac APRN, C.N.P. [address] [place] [phone] 08/08/2024 9:00 AM BUTCHER ALL ROUND Infusion Department of Infusion Therapy in [address] [address] Melinda Isaac APRN, C.N.P. [address] [place] [phone] 08/09/2024 9:00 AM BUTCHER ALL ROUND Infusion Department of Infusion Therapy in [address] [address] Melinda Isaac APRN, C.N.P. [address] [place] [phone] 08/10/2024 9:00 AM BUTCHER ALL ROUND Infusion Department of Infusion Therapy in [address] [address] Melinda Isaac APRN, C.N.P. [address] [place] [phone] 08/11/2024 9:00 AM BUTCHER ALL ROUND Infusion Department of Infusion Therapy in [address] [address] Melinda Isaac APRN, C.N.P. [address] [place] [phone] 08/12/2024 9:00 AM BUTCHER ALL ROUND Infusion Department of Infusion Therapy in [address] [address] Melinda Isaac APRN, C.N.P. [address] [place] [phone] 08/13/2024 8:30 AM BUTCHER ALL ROUND Infusion Department of Infusion Therapy in [address] [address] Melinda Isaac APRN, C.N.P. [address] [place] [phone] 08/14/2024 9:00 AM BUTCHER ALL ROUND Infusion Department of Infusion Therapy in [address] [address] Melinda Isaac APRN, C.N.P. [address] [place] [phone] 08/15/2024 9:00 AM BUTCHER ALL ROUND Infusion Department of Infusion Therapy in [address] [address] Melinda Isaac APRN, C.N.P. [address] [place] [phone] 08/16/2024 9:00 AM BUTCHER ALL ROUND Infusion Department of Infusion Therapy in [address] [address] Melinda Isaac APRN, C.N.P. [address] [place] [phone] 08/17/2024 9:00 AM BUTCHER ALL ROUND Infusion Department of Infusion Therapy in [address] [address] Melinda Isaac APRN, C.N.P. [address] [place] [phone] 08/18/2024 9:00 AM BUTCHER ALL ROUND Infusion Department of Infusion Therapy in [address] [address] Melinda Isaac APRN, C.N.P. [address] [place] [phone] documented as of this encounter Visit Diagnoses Not on filedocumented in this encounter Additional Health Concerns Assessment Noted Time PHQ-9 Depression Total Score: 22 025 7:19 PM BUTCHER ALL ROUND documented as of this encounter Care Teams Magnetic Locater Relationship Specialty Start Date End Date Prudence Mena MPAS, P.A.-C. [address] [place] [phone] PCP - General Internal Medicine 02/08/24 documented as of this encounter
--- OUTSIDE RECORDS SUMMARY | 2024-07-28 21:14 | XMS_ITS | Encounter Summary ---
Author Organization [facility] Address [address] [place] [address] Care Team Providers Care Director Of Student Affairs Name Role Phone Trina Prudence TO P.A.-C. Primary Care Pro vider Encounter Details Date Type Department Care Team (Latest Contact Info) Description 07/24/2024 9:03 AM CORPORATE ACCOUNT EXECUTIVE - 07/24/2024 11:59 PM [facility] Hospital Encounter Department of Laboratory Medicine in [address] [phone] Melinda Cohen MPAS P.A.-Cherelle., M.S. [address] [place] [phone] Snf Antibiotic Treatment Discharge Disposition: Home or Self Care Social History Tobacco Use Types Packs/Day Years Used Date Smoking Tobacco: Former Cigarettes 1.5 0.1 S tarted: 06/21/2024 Passive Smoke Exposure: Past Smokeless Tobacco: Never Alcohol Use Standard Drinks/Week Comments Yes 0 (1 standard drink = 0.6 oz pur e alcohol) socially [facility] Utilities Answer Date Recorded In the past 12 months has [place], gas, oil, or water [employer] threatened to shut off services in your [...] Never 07/27/2022 How often do you attend roman catholic or uatsdin serv ices? Never 07/27/2022 Do you belong to any clubs o r organizations such as roman catholic groups, unions, fraternal or athletic groups, [...] Answer Date Recorded PHQ-2 Score 6 07/10/2024 [facility] [place] of Occupat ional Health - Occupational Stress [...] a venous catheter daily for 17 days. [facility] 07/19/2024 cholecalciferol (VITAMIN D3) 50 mcg (2,000 [...] muscle spasms. 45 tablet 07/20/2024 10:13 AM CORPORATE ACCOUNT EXECUTIVE 07/19/2024 metroNIDAZOLE (FlagyL) 500 mg tabletIndication s:Empyema Take 1 tablet (500 mg total) by mouth 3 (three) times a day for 17 days Indications: Empyema. 51 tablet 07/20/2024 10:13 AM CORPORATE ACCOUNT EXECUTIVE 07/19/2024 multivitamin capsule Take 1 capsule by [...] Pain Exception. 28 tablet 07/20/2024 10:13 AM CORPORATE ACCOUNT EXECUTIVE 07/19/2024 documented as of this encounter Plan of Treatment Upcoming Encounters Date Type Department Care Team (Late st Contact Info) Description 07/29/2024 10:00 AM CORPORATE ACCOUNT EXECUTIVE Infusion Department of Infusion Therapy in [address] [phone] Melinda Isaac APRN, C.N.P. [address] [place] [phone] 07/29/2024 2:20 PM CORPORATE ACCOUNT EXECUTIVE Office Visit Department of Community Internal Medicine in [place], [place] 300 [place] [phone] Prudence Mena MPAS, P.A.-C. 300 [place] [phone] 07/30/2024 9:00 AM CORPORATE ACCOUNT EXECUTIVE Infusion Department of Infusion Therapy in [address] [phone] Melinda Isaac APRN, C.N.P. [address] [place] [phone] 07/31/2024 8:00 AM CORPORATE ACCOUNT EXECUTIVE Infusion Department of Infusion Therapy in [address] [phone] Melinda Isaac APRN, C.N.P. [address] [place] [phone] 08/01/2024 7:00 AM CORPORATE ACCOUNT EXECUTIVE Infusion Department of Infusion Therapy in [address] [phone] Melinda Isaac APRN, C.N.P. [address] [place] [phone] 08/02/2024 9:00 AM CORPORATE ACCOUNT EXECUTIVE Infusion Department of Infusion Therapy in [address] [phone] Melinda Isaac APRN, C.N.P. [address] [place] [phone] 08/02/2024 12:30 PM CORPORATE ACCOUNT EXECUTIVE Clinical Communication Virtual Review in [place], [place] 200 [place] [phone] 08/03/2024 9:00 AM CORPORATE ACCOUNT EXECUTIVE Infusion Department of Infusion Therapy in [address] [phone] Melinda Isaac APRN, C.N.P. [address] [place] [phone] 08/04/2024 9:00 AM CORPORATE ACCOUNT EXECUTIVE Infusion Department of Infusion Therapy in [address] [phone] Melinda Isaac APRN, C.N.P. [address] [place] [phone] 08/05/2024 8:45 AM CORPORATE ACCOUNT EXECUTIVE Appointment Department of Radiology, [facility], in [place], [place] [address] [place] [phone] Kayleigh Small M.D. [address] [place] [phone] 08/05/2024 9:00 AM CORPORATE ACCOUNT EXECUTIVE Infusion Department of Infusion Therapy in [address] [phone] Melinda Isaac APRN, C.N.P. [address] [place] [phone] 08/05/2024 11:00 AM CORPORATE ACCOUNT EXECUTIVE Office Visit Section of Infectious Diseases in [place], [place] [address] [place] [phone] Kayleigh Small M.D. [address] [place] [phone] 08/06/2024 9:00 AM CORPORATE ACCOUNT EXECUTIVE Infusion Department of Infusion Therapy in [address] [phone] Melinda Isaac APRN, C.N.P. [address] [place] [phone] 08/07/2024 9:00 AM CORPORATE ACCOUNT EXECUTIVE Infusion Department of Infusion Therapy in [address] [phone] Melinda Isaac APRN, C.N.P. [address] [place] [phone] 08/08/2024 9:00 AM CORPORATE ACCOUNT EXECUTIVE Infusion Department of Infusion Therapy in [address] [phone] Melinda Isaac APRN, C.N.P. [address] [place] [phone] 08/09/2024 9:00 AM CORPORATE ACCOUNT EXECUTIVE Infusion Department of Infusion Therapy in [address] [phone] Melinda Isaac APRN, C.N.P. [address] [place] [phone] 08/10/2024 9:00 AM CORPORATE ACCOUNT EXECUTIVE Infusion Department of Infusion Therapy in [address] [phone] Melinda Isaac APRN, C.N.P. [address] [place] [phone] 08/11/2024 9:00 AM CORPORATE ACCOUNT EXECUTIVE Infusion Department of Infusion Therapy in [address] [address] Melinda Isaac APRN, C.N.P. [address] [place] [phone] 08/12/2024 9:00 AM CORPORATE ACCOUNT EXECUTIVE Infusion Department of Infusion Therapy in [address] [phone] Melinda Isaac APRN, C.N.P. [address] [place] [phone] 08/13/2024 8:30 AM CORPORATE ACCOUNT EXECUTIVE Infusion Department of Infusion Therapy in [address] [phone] Melinda Isaac APRN, C.N.P. [address] [place] [phone] 08/14/2024 9:00 AM CORPORATE ACCOUNT EXECUTIVE Infusion Department of Infusion Therapy in [address] [phone] Melinda Isaac APRN, C.N.P. [address] [place] [phone] 08/15/2024 9:00 AM CORPORATE ACCOUNT EXECUTIVE Infusion Department of Infusion Therapy in [address] [phone] Melinda Isaac APRN, C.N.P. [address] [place] [phone] 08/16/2024 9:00 AM CORPORATE ACCOUNT EXECUTIVE Infusion Department of Infusion Therapy in [address] [phone] Melinda Isaac APRN, C.N.P. [address] [place] [phone] 08/17/2024 9:00 AM CORPORATE ACCOUNT EXECUTIVE Infusion Department of Infusion Therapy in [address] [phone] Melinda Isaac APRN, C.N.P. [address] [place] [phone] 08/18/2024 9:00 AM CORPORATE ACCOUNT EXECUTIVE Infusion Department of Infusion Therapy in [address] [phone] Melinda Isaac APRN, C.N.P. [address] [place] [phone] documented as of this encounter Procedures Procedure Name Priority Date/Time Associated Diagnosis Comments CBC WITH DIFFERENTIAL, B Routine 025 10:02 AM CORPORATE ACCOUNT EXECUTIVE Snf Antibiotic Treatment ALANINE AMINOTRANSFERASE (ALT), S/P Routine 07/24/2024 10:02 AM CORPORATE ACCOUNT EXECUTIVE Snf Antibiotic Treatment ALKALINE PHOSPHATASE, S/P Routine 07/24/2024 10:02 AM CORPORATE ACCOUNT EXECUTIVE [employer] Antibiotic Treatment CREATININE WITH EGFR, S/P Routine 07/24/2024 10:02 AM CORPORATE ACCOUNT EXECUTIVE [employer] Antibiotic Treatment documented in this encounter Results * Alkaline Phosphatase (07/24/2024 10:02 AM CORPORATE ACCOUNT EXECUTIVE) Alkaline Phosphatase, P 86 35 - 104 U/L 07/24/2024 10:24 AM CORPORATE ACCOUNT EXECUTIVE [place] Blood (Blood, PICC) 07/24/2024 10:02 AM CORPORATE ACCOUNT EXECUTIVE 07/24/2024 10:07 AM CORPORATE ACCOUNT EXECUTIVE us Melinda TO, P.A.-C., M.S. LAB BLOOD ADD-ON Final Result Performing Organization Address City/[facility]/[place] [address], [place] [address] * ALT (Alanine Aminotransferase) (07/24/2024 10:02 AM CORPORATE ACCOUNT EXECUTIVE) Alanine Aminotransferase (ALT), P 21 7 - 45 U/L 07/24/2024 10:24 AM CORPORATE ACCOUNT EXECUTIVE [facility] Blood (Blood, PICC) 07/24/2024 10:02 AM CORPORATE ACCOUNT EXECUTIVE 07/24/2024 10:07 AM CORPORATE ACCOUNT EXECUTIVE us Melinda TO, P.A.-C., M.S. LAB BLOOD [place] [address], [place] CNFL [facility] in [address] [address] * Creatinine with Estimated GFR (07/24/2024 10:02 AM CORPORATE ACCOUNT EXECUTIVE) Creatinine 0.60 0.59 - 1.04 mg/dL 07/24/2024 10:24 AM CORPORATE ACCOUNT EXECUTIVE CNFL Estimated GFR (eGFR) >90 >=60 mL/min/BSA 07/24/2024 10:24 AM CORPORATE ACCOUNT EXECUTIVE CNFL Comment: Estimated GFR calculated using the 2020 CKD_EPI creatinine equation. Blood (Blood, PICC) 07/24/2024 10:02 AM CORPORATE ACCOUNT EXECUTIVE 07/24/2024 10:07 AM CORPORATE ACCOUNT EXECUTIVE us Melinda TO, P.A.-C., M.S. LAB BLOOD ADD-ON Final Result [facility]- [address] [address], [facility] in [address] [address] * (ABNORMAL) CBC with Differential, Blood (07/24/2024 10:02 AM CORPORATE ACCOUNT EXECUTIVE) Hemoglobin 9.4(L) 11.6 - 15.0 g/dL 07/24/2024 10:11 AM CORPORATE ACCOUNT EXECUTIVE CNFL Hematocrit 30.2(L) 35.5 - 44.9 % 07/24/2024 10:11 AM CORPORATE ACCOUNT EXECUTIVE CNFL Erythrocytes 3.40(L) 3.92 - 5.13 x10(12)/L 07/24/2024 10:11 AM CORPORATE ACCOUNT EXECUTIVE CNFL MCV 88.8 78.2 - 97.9 fL 07/24/2024 10:11 AM CORPORATE ACCOUNT EXECUTIVE CNFL RBC Distrib Width 15.5 12.2 - 16.1 % 07/24/2024 10:11 AM CORPORATE ACCOUNT EXECUTIVE CNFL Platelet Count 641(H) 157 - 371 x10(9)/L 07/24/2024 10:11 AM CORPORATE ACCOUNT EXECUTIVE CNFL Leukocytes 12.0(H) 3.4 - 9.6 x10(9)/L 07/24/2024 10:11 AM CORPORATE ACCOUNT EXECUTIVE CNFL Neutrophils 8.69(H) 1.56 - 6.45 x10(9)/L 07/24/2024 10:11 AM CORPORATE ACCOUNT EXECUTIVE CNFL Lymphocytes 1.73 0.95 - 3.07 x10(9)/L 07/24/2024 10:11 AM CORPORATE ACCOUNT EXECUTIVE CNFL Monocytes 0.99(H) 0.26 - 0.81 x10(9)/L 07/24/2024 10:11 AM CORPORATE ACCOUNT EXECUTIVE CNFL Eosinophils 0.55(H) 0.03 - 0.48 x10(9)/L 07/24/2024 10:11 AM CORPORATE ACCOUNT EXECUTIVE CNFL Basophils 0.06 0.01 - 0.08 x10(9)/L 07/24/2024 10:11 AM CORPORATE ACCOUNT EXECUTIVE CNFL Blood (Blood, PICC) 07/24/2024 10:02 AM CORPORATE ACCOUNT EXECUTIVE 07/24/2024 10:07 AM CORPORATE ACCOUNT EXECUTIVE Melinda TO, P.A.-C., M.S. LAB BLOOD ADD-ON Final Result [facility] [address] [place] [address], [facility] in [address] [address] documented in this encounter Visit Diagnoses Diagnosis Snf Antibiotic Treatment documented in this encounter Additional Health Concerns Assessment Noted Time PHQ-9 Depression Total Score: 22 025 7:19 PM CORPORATE ACCOUNT EXECUTIVE documented as of this encounter Care Teams Director Of Student Affairs Relationship Specialty Start Date End Date Prudence Mena MPAS, P.A.-C. [address] [place] [address] [place] [phone] PCP - General Internal Medicine 02/08/24 documented as of this encounter
--- OUTSIDE RECORDS SUMMARY | 2024-07-28 21:14 | XMS_ITS | Encounter Summary ---
Author Organization [facility] Address [address] [place] [address] Care Team Providers Care Benefit Director Name Role Phone Prudence Mena P.ADmitry-CDmitry Primary Care Pro vider Encounter Details Date Type Department Care Team (Latest Contact Info) Description 07/11/2024 11:07 AM [facility] Hospital Encounter Department of Laboratory Medicine in [place], [place] 300 [place] [address] Prudence Mena MPAS P.A.-C. 300 [place] [address] Blood In Stool Discharge Disposition: [...] In the past 12 months has e [employer], gas, oil, or water [place] threatened to shut off services in your [...] Never 07/27/2022 How often do you attend taoist or restorationist serv ices? 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 [address] [place] [phone] 07/29/2024 2:20 PM UNIX ARCHITECT Office Visit Department of Community Internal Medicine in [address] [phone] Prudence Mena MPAS, P.A.-C. 300 [place] [phone] 07/30/2024 9:00 AM UNIX ARCHITECT Infusion Department of Infusion Therapy in [address] [address] Melinda Isaac APRN, C.N.P. [address] [place] [phone] 07/31/2024 8:00 AM UNIX ARCHITECT Infusion Department of Infusion Therapy in [address] [address] Melinda Isaac APRN, C.N.P. [address] [place] [phone] 08/01/2024 7:00 AM UNIX ARCHITECT Infusion Department of Infusion Therapy in [address] [address] Melinda Isaac APRN, C.N.P. [address] [place] [phone] 08/02/2024 9:00 AM UNIX ARCHITECT Infusion Department of Infusion Therapy in [address] [address] Melinda Isaac APRN, C.N.P. [address] [place] [phone] 08/02/2024 12:30 PM UNIX ARCHITECT Clinical Communication Virtual Review in [place], [place] 200 [place] [address] 08/03/2024 9:00 AM UNIX ARCHITECT Infusion Department of Infusion Therapy in [address] [address] Melinda Isaac APRN, C.N.P. [address] [place] [phone] 08/04/2024 9:00 AM UNIX ARCHITECT Infusion Department of Infusion Therapy in [address] [address] Melinda Isaac APRN, C.N.P. [address] [place] [phone] 08/05/2024 8:45 AM UNIX ARCHITECT Appointment Department of Radiology, [facility], in [place], [place] [address] [place] [phone] Kayleigh Small M.D. [address] [place] [phone] 08/05/2024 9:00 AM UNIX ARCHITECT Infusion Department of Infusion Therapy in [address] [address] Melinda Isaac APRN, C.N.P. [address] [place] [phone] 08/05/2024 11:00 AM UNIX ARCHITECT Office Visit Section of Infectious Diseases in [address] [phone] Kayleigh Small M.D. [address] [place] [phone] 08/06/2024 9:00 AM UNIX ARCHITECT Infusion Department of Infusion Therapy in [address] [address] Melinda Isaac APRN, C.N.P. [address] [place] [phone] 08/07/2024 9:00 AM UNIX ARCHITECT Infusion Department of Infusion Therapy in [address] [address] Melinda Isaac APRN, C.N.P. [address] [place] [phone] 08/08/2024 9:00 AM UNIX ARCHITECT Infusion Department of Infusion Therapy in [address] [address] Melinda Isaac APRN, C.N.P. [address] [place] [phone] 08/09/2024 9:00 AM UNIX ARCHITECT Infusion Department of Infusion Therapy in [address] [address] Melinda Isaac APRN, C.N.P. [address] [place] [phone] 08/10/2024 9:00 AM UNIX ARCHITECT Infusion Department of Infusion Therapy in [address] [address] Melinda Isaac APRN, C.N.P. [address] [place] [phone] 08/11/2024 9:00 AM UNIX ARCHITECT Infusion Department of Infusion Therapy in [address] [phone] Melinda Isaac APRN, C.N.P. [address] [place] [phone] 08/12/2024 9:00 AM UNIX ARCHITECT Infusion Department of Infusion Therapy in [address] [address] Melinda Isaac APRN, C.N.P. [address] [place] [phone] 08/13/2024 8:30 AM UNIX ARCHITECT Infusion Department of Infusion Therapy in [address] [address] Melinda Isaac APRN, C.N.P. [address] [place] [phone] 08/14/2024 9:00 AM UNIX ARCHITECT Infusion Department of Infusion Therapy in [address] [address] Melinda Isaac APRN, C.N.P. [address] [place] [phone] 08/15/2024 9:00 AM UNIX ARCHITECT Infusion Department of Infusion Therapy in [address] [address] Melinda Isaac APRN, C.N.P. [address] [place] [phone] 08/16/2024 9:00 AM UNIX ARCHITECT Infusion Department of Infusion Therapy in [address] [address] Melinda Isaac APRN, C.N.P. [address] [place] [phone] 08/17/2024 9:00 AM UNIX ARCHITECT Infusion Department of Infusion Therapy in [address] [address] Melinda Isaac APRN, C.N.P. [address] [place] [phone] 08/18/2024 9:00 AM UNIX ARCHITECT Infusion Department of Infusion Therapy in [address] [phone] Melinda Isaac APRN, C.N.P. [address] [place] [phone] Scheduled Orders Name Type Priority Associated Diagnoses Orde r Schedule HemoQuant, Feces Lab Routine Blood In Stool Once for 1 Occurrences starting 07/11/2024 until 07/11/2024 documented as of this encounter Visit Diagnoses Diagnosis Blood In Stool documented in this encounter Additional Health Concerns Assessment Noted Time PHQ-9 Depression Total Score: 22 025 7:19 PM UNIX ARCHITECT documented as of this encounter Care Teams Benefit Director Relationship Specialty Start Date End Date Prudence Mena MPAS, P.A.-C. [address] [place] [phone] PCP - General Internal Medicine 02/08/24 documented as of this encounter
--- OUTSIDE RECORDS SUMMARY | 2024-07-28 21:14 | XMS_ITS | Referral Summary ---
Author Organization [facility] Address [address] [place] [address] Care Team Providers Care Stain Remover Name Role Phone Claudia Morillo MD Primary Care Provider [phone] Social History Tobacco Use Types Packs/Day Years Used Date Smoking Tobacco: Never Assessed Comments Unknown Sex and Gender Information Value Date Recorded Sex Assigned at Not on file Legal Sex Female 3:28 PM CDT Gender Identity Not on file Sexual Orientation Not on file Plan of Treatment Not on file Care Teams Stain Remover Relationship Specialty Start Date End Date Claudia Morillo MD [facility] [address] [place] [address] PCP - General 02/06/18
--- OUTSIDE RECORDS SUMMARY | 2024-07-28 21:14 | XMS_ITS | Encounter Summary ---
Author Organization [facility] Address [address] [place] [address] Care Team Providers Care Early Childhood Assistant Name Role Phone Prudence Mena P.A.-C. Primary Care Pro vider Reason for Visit * Reason Onset Date Comments Reschedule 07/23/2024 Encounter Details Date Type Department Care Team (Late st Contact Info) Description 07/23/2024 Clinical Communication Department of Infusion Therapy in [place], [place] [address] [place] [phone] Tita Bell R.N. [address] [place] [phone] Reschedule Social History Tobacco Use Types Packs/Day Years Used Date Smoking Tobacco: Former Cigarettes 1.5 0.1 S tarted: 06/21/2024 Passive Smoke Exposure: Past Smokeless Tobacco: Never Alcohol Use Standard Drinks/Week Comments Yes 0 (1 standard drink = 0.6 oz pur e alcohol) socially [facility] Utilities Answer Date Recorded In the past 12 months has [facility] [employer], gas, oil, or water [employer] threatened to shut off services in your [...] Never 07/27/2022 How often do you attend christian or samaritan serv ices? Never 07/27/2022 Do you belong to any clubs o r organizations such as christian groups, unions, fraternal or athletic groups, or [...] Answer Date Recorded PHQ-2 Score 6 07/10/2024 [facility] [place] of Occupat ional Health - Occupational Stress [...] st Contact Info) Description 07/29/2024 10:00 AM SHUTTLE THREADER Infusion Department of Infusion Therapy in [address] [phone] Melinda Isaac, FRED, C.N.P. [address] [place] [phone] 07/29/2024 2:20 PM SHUTTLE THREADER Office Visit Department of Community Internal Medicine in [place], [place] [address] [facility] [place] [phone] Prudence Mena MPAS, P.A.-C. [address] [place] [phone] 07/30/2024 9:00 AM SHUTTLE THREADER Infusion Department of Infusion Therapy in [address] [phone] Melinda Isaac APRN, C.N.P. [address] [place] [phone] 07/31/2024 8:00 AM SHUTTLE THREADER Infusion Department of Infusion Therapy in [address] [phone] Melinda Isaac APRN, C.N.P. [address] [place] [phone] 08/01/2024 7:00 AM SHUTTLE THREADER Infusion Department of Infusion Therapy in [address] [phone] Melinda Isaac APRN, C.N.P. [address] [place] [phone] 08/02/2024 9:00 AM SHUTTLE THREADER Infusion Department of Infusion Therapy in [address] [phone] Melinda Isaac APRN, C.N.P. [address] [place] [phone] 08/02/2024 12:30 PM SHUTTLE THREADER Clinical Communication Virtual Review in [place], [place] [address] [place] [phone] 08/03/2024 9:00 AM SHUTTLE THREADER Infusion Department of Infusion Therapy in [address] [phone] Melinda Isaac APRN, C.N.P. [address] [place] [phone] 08/04/2024 9:00 AM SHUTTLE THREADER Infusion Department of Infusion Therapy in [address] [phone] Melinda Isaac APRN, C.N.P. [address] [place] [phone] 08/05/2024 8:45 AM SHUTTLE THREADER Appointment Department of Radiology, [facility], in [place], [place] [address] [place] [phone] Kayleigh Small M.D. [address] [place] [phone] 08/05/2024 9:00 AM SHUTTLE THREADER Infusion Department of Infusion Therapy in [address] [phone] Melinda Isaac APRN, C.N.P. [address] [place] [phone] 08/05/2024 11:00 AM SHUTTLE THREADER Office Visit Section of Infectious Diseases in [address] [phone] Kayleigh Small M.D. [address] [place] [phone] 08/06/2024 9:00 AM SHUTTLE THREADER Infusion Department of Infusion Therapy in [address] [address] Melinda Isaac APRN, C.N.P. [address] [place] [phone] 08/07/2024 9:00 AM SHUTTLE THREADER Infusion Department of Infusion Therapy in [address] [address] Melinda Isaac APRN, C.N.P. [address] [place] [phone] 08/08/2024 9:00 AM SHUTTLE THREADER Infusion Department of Infusion Therapy in [address] [phone] Melinda Isaac APRN, C.N.P. [address] [place] [phone] 08/09/2024 9:00 AM SHUTTLE THREADER Infusion Department of Infusion Therapy in [address] [address] Melinda Isaac APRN, C.N.P. [address] [place] [phone] 08/10/2024 9:00 AM SHUTTLE THREADER Infusion Department of Infusion Therapy in [address] [phone] Melinda Isaac APRN, C.N.P. [address] [place] [phone] 08/11/2024 9:00 AM SHUTTLE THREADER Infusion Department of Infusion Therapy in [address] [phone] Melinda Isaac APRN, C.N.P. [address] [place] [phone] 08/12/2024 9:00 AM SHUTTLE THREADER Infusion Department of Infusion Therapy in [address] [address] Melinda Isaac APRN, C.N.P. [address] [place] [phone] 08/13/2024 8:30 AM SHUTTLE THREADER Infusion Department of Infusion Therapy in [address] [address] Melinda Isaac APRN, C.N.P. [address] [place] [phone] 08/14/2024 9:00 AM SHUTTLE THREADER Infusion Department of Infusion Therapy in [address] [address] Melinda Isaac APRN, C.N.P. [address] [place] [phone] 08/15/2024 9:00 AM SHUTTLE THREADER Infusion Department of Infusion Therapy in [address] [address] Melinda Isaac APRN, C.N.P. [address] [place] [phone] 08/16/2024 9:00 AM SHUTTLE THREADER Infusion Department of Infusion Therapy in [address] [address] Melinda Isaac APRN, C.N.P. [address] [place] [phone] 08/17/2024 9:00 AM SHUTTLE THREADER Infusion Department of Infusion Therapy in [address] [phone] Melinda Isaac APRN, C.N.P. [address] [place] [phone] 08/18/2024 9:00 AM SHUTTLE THREADER Infusion Department of Infusion Therapy in [address] [address] Melinda Isaac APRN, C.N.P. [address] [place] [phone] documented as of this encounter Visit Diagnoses Not on filedocumented in this encounter Additional Health Concerns Assessment Noted Time PHQ-9 Depression Total Score: 22 025 7:19 PM SHUTTLE THREADER documented as of this encounter Care Teams Early Childhood Assistant Relationship Specialty Start Date End Date Prudence Mena MPAS, P.A.-C. [address] [place] [phone] PCP - General Internal Medicine 02/08/24 documented as of this encounter
--- OUTSIDE RECORDS SUMMARY | 2024-07-28 21:15 | XMS_ITS | Clinical Summary ---
Author Organization [facility] Address [address] [place] [address] Care Team Providers Care Rehab Director Occupational Therapist Name Role Phone Prudence Mena P.A.-C. Primary Care Pro vider Source Comments Patient records contain information from all sites at [facility]. For routine questions regarding patient records, call [phone] during business hours, M-F 8:00 AM - 5:00 PM Central Time. Record requests for emergency care only can be directed to [phone] at any time.[facility] Allergies Active Allergy Reactions Criticality Noted Date [...] 6 (six) hours as needed for pain. 08/13/19 20 Active traZODone (DESYREL) 50 mg tablet TAKE 1-4 TABLETS BY MOUTH ONCE DAILY AT BEDTIME. 10/14/19 22 Active estradioL (ESTRACE) 0.1 mg/g (0.01%) vaginal cream Insert 1 g into the vagina 3 (three) times a week. Nightly for first week. 42 g 3 04/15/20 22 Active multivitamin capsule Take 1 capsule by mouth daily. Active cholecalcifer ol (VITAMIN D3) 50 mcg (2,000 Unit) capsule Take 50 mcg by mouth daily. 09/04/19 Active Vraylar 4.5 mg capsule Take 4.5 mg by mouth at bedtime. 10/12/19 Active fluticasone propion-salme teroL (Advair HFA) 115-21 mcg/actuation inhaler Inhale 2 [...] Active DULoxetine (CYMBALTA) [address] capsule Take 60 mg by mouth every morning. 03/31/20 23 Active nitrofurantoi n (MACRODANTIN) 50 mg capsule TAKE ONE CAPSULE BY MOUTH ONE TIME DAILY 90 capsule 3 04/21/20 23 Active dextroampheta mine-amphetam ine (ADDERALL) 10 mg tablet Take 1 tablet by mouth between 12pm and 2pm daily* 11/01/19 24 Active dextroampheta mine sulfate (Dexedrine Spansule) 15 mg ER capsule Take 1 capsule by mouth every morning. 11/30/19 24 Active DME CPAPIndicatio ns:Obstructiv e Sleep Apnea Adult DME Order 1 each 01/25/20 24 Active lisinopriL 10 mg tablet Take 1 tablet (10 mg total) by mouth daily. 90 tablet 3 02/08/20 24 Active Ventolin HFA 90 mcg/actuation inhaler INHALE 2 PUFFS EVERY 4 HOURS NEEDED FOR WHEEZING OR SHORTNESS OF BREATH. 54 g 3 03/05/20 24 Active pregabalin (Lyrica) 200 mg capsuleIndica tions:Fibromy algia Take 1 capsule (200 mg total) by [...] breath. 75 mL 2 06/11/20 24 Active ipratropium-a lbuteroL (DuoNeb) 0.5-2.5 mg/3 mL nebulizer solution Inhale 3 mL by nebulization 4 (four) times a day as needed for shortness of breath. 180 mL 3 06/11/20 24 Active LORazepam (Ativan) 0.5 mg tablet Take 0.5 mg by mouth daily as needed for anxiety. 08/17/19 24 Active lidocaine (Lidoderm) 5 % adhesive patch,medicat ed Place 1 patch on the skin daily. Apply to painful area 12 hours per day, remove for 12 hours. 10 patch 07/11/19 25 Active guaiFENesin (Mucinex) 600 mg 12 hr tablet Take 1,200 mg by mouth 2 (two) times a day. Active methocarbamoL (Robaxin) 500 mg tablet Take 1 tablet (500 mg total) by mouth 3 (three) times a day as needed for muscle spasms. 45 tablet 5 10:13 AM MANAGER OF EMPLOYEE RELATIONS 07/19/19 25 Active metroNIDAZOLE (FlagyL) 500 mg tabletIndicat ions:Empyema Take 1 tablet (500 mg total) by mouth 3 (three) times a day for 17 days Indications: Empyema. 51 tablet 5 10:13 AM MANAGER OF EMPLOYEE RELATIONS 07/19/19 25 025 Active sennosides (senna) 8.6 mg tablet Take 2 tablets (17.2 mg total) by mouth daily. 07/20/19 25 Active cefTRIAXone in dextrose, iso osm, (Rocephin) 2 gram/50 mL IVBPIndicatio ns:Empyema Pleural (HCC) Infuse 50 mL (2 g total) into a venous catheter daily for 17 days. [place] ITC 07/19/19 25 025 Active ibuprofen 400 mg tablet Take 1 tablet (400 mg total) by mouth every 6 (six) hours as needed for moderate pain or score 4-6 of 10 or severe pain or score 7-10 of 10 for up to 3 days. 12 tablet 07/20/19 Active oxyCODONE (Roxicodone) 5 mg immediate release tabletIndicat ions:Acute Pain Exception Take 1 tablet (5 mg total) by mouth every 4 (four) hours as needed for severe pain or score 7-10 of 10 Indication: Acute Pain Exception. 21 tablet 07/25/19 25 Active ondansetron (Zofran) 4 mg tablet Take 1 tablet (4 mg total) by mouth every 8 (eight) hours as needed for nausea or vomiting for up to 3 days. 10 tablet 07/26/19 25 025 Active fluticasone propionate (FLOVENT DISKUS) 100 mcg/actuation diskus inhaler 06/29/20 18 025 Discontinued(A lternate therapy) azithromycin (Zithromax Z-Jenaro) 250 mg tablet 2 tablets (500 mg) once and then 1 tablet Daily for 4 days 6 tablet 06/11/20 24 025 Discontinued benzonatate (Tessalon Perles) 100 mg capsule Take 1 capsule (100 mg total) by mouth 3 (three) times a day. 20 capsule 06/11/20 24 025 Discontinued levoFLOXacin (Levaquin) 750 mg tabletIndicat ions:Pneumoni a Take 1 tablet (750 mg total) by mouth daily before morning meal. 7 tablet 07/11/19 25 025 Discontinued(S top Taking at Discharge) oxyCODONE (Roxicodone) 5 mg immediate release tabletIndicat ions:Acute Pain Exception Take 1 tablet (5 mg total) by mouth every 4 (four) hours as needed for moderate pain or score 4-6 of 10 (for breakthrough pain) Indication: Acute Pain Exception. 28 tablet 5 10:13 AM MANAGER OF EMPLOYEE RELATIONS 07/19/19 25 025 Discontinued(R eorder) ibuprofen 400 mg tablet Take 1 tablet (400 mg total) by mouth every 6 (six) hours as needed for moderate pain or score 4-6 of 10 or severe pain or score 7-10 of 10 for up to 5 days. 20 tablet 07/19/19 25 025 Discontinued Active Problems Problem Noted Date Diagnosed Date Empyema Pleural 07/13/2024 Asthma 07/11/2024 Hemorrhage Gastrointestinal 07/11/2024 Overview (07/11/2024): [...] for Sleep Medicine consult October 2023 in [place]. I have reordered her a consult as [...] 12/03/2021 Overview (09/03/2023): Follows with Psychiatry in [place]. Attends therapy in [place]. Attention Deficit With Hyperactivity Disorder Overview (09/03/2023): Follows with Psychiatry in [place]. Attends therapy in [place]. Major Depressive Disorder, Recurrent, Unspecifie d 12/03/2021 Overview (09/03/2023): Follows with Psychiatry in [place]. Attends therapy in [place]. Headache Unspecified 07/03/2019 Fracture Fifth Metacarpal Ba [...] Encounters Date Type Department Care Team Description 07/28/2024 9:00 AM MANAGER OF EMPLOYEE RELATIONS Infusion Department of Infusion Therapy in [place], [place] [address] Melinda Isaac APRN, C.N.P. Empyema Pleural (HCC) (Primary Dx) 07/27/2024 9:00 AM MANAGER OF EMPLOYEE RELATIONS Infusion Department of Infusion Therapy in [place], [place] [address] Melinda Isaac APRN, C.NDmitryPDmitry Empyema Pleural (HCC) (Primary Dx) 07/26/2024 9:14 AM MANAGER OF EMPLOYEE RELATIONS - 07/26/2024 2:06 PM MANAGER OF EMPLOYEE RELATIONS Emergency [facility] [address] [place] [phone] Dilcia Valero APRN, C.NDmitryPDmitry Pain Chest Wall (Primary Dx) Discharge Disposition: Home or Self Care 07/26/2024 9:00 AM MANAGER OF EMPLOYEE RELATIONS Infusion Department of Infusion Therapy in [address] [address] Melinda Isaac APRN, C.NDmitryPDmitry Empyema Pleural (HCC) (Primary Dx) 07/26/2024 Results Follow-Up [facility] [address] [place] [address] Lindsay Mejias R.N. 07/25/2024 9:00 AM MANAGER OF EMPLOYEE RELATIONS Infusion Department of Infusion Therapy in [address] [address] Melinda Isaac APRN, C.NDmitryPDmitry Empyema Pleural (HCC) (Primary Dx) 07/25/2024 Orders Only Division of Thoracic Surgery in [place], [place] [address] [place] [address] Eveline Mariscal, P.A.-C. 07/24/2024 9:03 AM MANAGER OF EMPLOYEE RELATIONS - 07/24/2024 11:59 PM MANAGER OF EMPLOYEE RELATIONS Hospital Encounter Department of Radiology in [address] [phone] Prudence Mena MPAS, P.A.-C. Pneumonia Discharge Disposition: Home or Self Care 07/24/2024 9:03 AM MANAGER OF EMPLOYEE RELATIONS - 07/24/2024 11:59 PM MANAGER OF EMPLOYEE RELATIONS Hospital Encounter Department of Laboratory Medicine in [address] [phone] Melinda Cohen MPAS P.A.-C., M.S. Cnc Machinist 2Nd Shift Antibiotic Treatment Discharge Disposition: Home or Self Care 07/24/2024 9:00 AM MANAGER OF EMPLOYEE RELATIONS Infusion Department of Infusion Therapy in [address] [address] Melinda Isaac APRN, C.N.P. Empyema Pleural (HCC) (Primary Dx) 07/24/2024 Results Follow-Up Department of Community Internal Medicine in [address] [address] Prudence Mena MPAS P.A.-C. 07/23/2024 9:00 AM MANAGER OF EMPLOYEE RELATIONS Infusion Department of Infusion Therapy in [address] [address] Melinda Isaac APRN, C.N.P. Empyema Pleural (HCC) (Primary Dx) 07/23/2024 Clinical Communication Department of Infusion Therapy in [address] [address] Tita Bell R.N. Reschedule 07/22/2024 9:00 AM MANAGER OF EMPLOYEE RELATIONS Infusion Department of Infusion Therapy in [address] [address] Melinda Isaac APRN, C.N.P. Empyema Pleural (HCC) (Primary Dx) 07/22/2024 Clinical Communication Department of Community Internal Medicine in [address] [address] Rosalva Galeano R.N. Post Hospital Follow-up (Completed - DC'd 07/20/24 @ 1016) 07/22/2024 Patient Outreach Section of Infectious Diseases in [place] [address] [place] [address] Sneha Barrett Care Coordination 07/22/2024 Results Follow-Up Department of Community Internal Medicine in [address] [place] [address] Prudence Mena MPAS, P.A.-C. 07/21/2024 9:00 AM MANAGER OF EMPLOYEE RELATIONS Infusion Department of Infusion Therapy in [address] [address] Melinda Isaac APRN, C.N.P. Empyema Pleural (HCC) (Primary Dx); Pneumonia 07/19/2024 Clinical Communication Division of Thoracic Surgery in [address] [address] Melinda Isaac APRN, C.N.P. 07/18/2024 Clinical Communication [facility] [address] [place] [phone] Kayleigh Small M.D. Post Hospital Follow-up 07/15/2024 1:10 PM MANAGER OF EMPLOYEE RELATIONS - 07/15/2024 4:33 PM MANAGER OF EMPLOYEE RELATIONS Surgery [facility] [address] [place] [phone] Patrick Mtz M.D., Ph.D. ROBOTIC THORACOSCOPY, DECORTICATION, PLEURODESIS, PROCEED INDICATED. 07/15/2024 12:57 PM MANAGER OF EMPLOYEE RELATIONS Anesthesia Event [facility] [address] [place] [phone] Lanre Hayward M.D. Aroldo Johnson, R.N. 07/13/2024 7:53 PM MANAGER OF EMPLOYEE RELATIONS - 07/20/2024 10:16 AM MANAGER OF EMPLOYEE RELATIONS Hospital Encounter [facility] Tenth Floor [address] [place] [phone] Patrick Mtz M.D., Ph.D. Empyema Pleural (HCC) (Primary Dx) Discharge Disposition: Home or Self Care 07/13/2024 Intake [facility] 07/11/2024 11:17 AM MANAGER OF EMPLOYEE RELATIONS - 07/11/2024 11:59 PM MANAGER OF EMPLOYEE RELATIONS Hospital Encounter Department of Radiology in [address] [address] Prudence Mena MPAS, P.A.-C. Pneumonia Discharge Disposition: Home or Self Care 07/11/2024 11:08 AM MANAGER OF EMPLOYEE RELATIONS - 07/11/2024 11:16 AM MANAGER OF EMPLOYEE RELATIONS Hospital Encounter Department of Laboratory Medicine in [place] [address] [place] [address] Prudence Mena MPAS, P.A.-C. Pneumonia Discharge Disposition: Home or Self Care 07/11/2024 11:07 AM MANAGER OF EMPLOYEE RELATIONS Hospital Encounter Department of Laboratory Medicine in [address] [facility] [place] [address] Prudence Mena MPAS, P.A.-C. Blood In Stool Discharge Disposition: Home or Self Care 07/11/2024 10:40 AM MANAGER OF EMPLOYEE RELATIONS Office Visit Department of Community Internal Medicine in [address] [place] [address] Prudence Mena MPAS, P.A.-C. Hypokalemia (Primary Dx); Pneumonia; Effusion Pleural; Blood In Stool 07/11/2024 Clinical Communication Department of Community Internal Medicine in [address] [facility] [place] [address] Prudence Mena MPAS, P.A.-C. 07/11/2024 Orders Only Department of Community Internal Medicine in [address] [place] [address] Prudence Mena MPAS, P.A.-C. Pneumonia (Primary Dx) 06/11/2024 3:30 PM MANAGER OF EMPLOYEE RELATIONS Office Visit Department of Family Medicine, [facility], in [address] [facility] [place] [address] Kaley Jones APRN, C.N.P., D.N.P. Infection Upper Respiratory (Primary Dx) 06/11/2024 Nurse Triage Department of Community Internal Medicine in [address] [place] [phone] Eduardo Ding R.N. Cough from Last 3 Months Immunizations Immunization Administration Dates Next Due Influenza, Unspecified 09/04/2023(Deferred: [...] m assive stroke Alcohol abuse Mother Kandice [place] Anxiety disorder Mother Kandice [place] Depression Mother Kandice Dallas Hypertension Mother Kandice [place] Sleep apnea Mother Kandice [place] Thyroid disease Mother Kandice Dallas Relation Name Status Comments Maternal Grandmother Bonnie Bear Mother Kandice Haynes Social History Tobacco Use Types Packs/Day Years Used Date Smoking Tobacco: Former Cigarettes 1.5 0.1 S tarted: 06/21/2024 Passive Smoke Exposure: Past Smokeless Tobacco: Never Tobacco Cessation:Counseling Given: Not Answered Alcohol Use Standard Drinks/Week Comments Yes 0 (1 standard drink = 0.6 oz pur e alcohol) socially [facility] Utilities Answer Date Recorded In the past 12 months has e [employer], oil, or water [facility] threatened to shut off services in your [...] Never 07/27/2022 How often do you attend gnosticism or restoration serv ices? Never 07/27/2022 Do you belong to any clubs o r organizations such as gnosticism groups, unions, fraternal or athletic groups, or [...] Answer Date Recorded PHQ-2 Score 6 07/10/2024 [facility] - Occupational [...] Sign Reading Time Taken Comments Blood Pressure 138/86 07/28/2024 9:13 AM MANAGER OF EMPLOYEE RELATIONS Pulse 112 07/28/2024 9:13 AM MANAGER OF EMPLOYEE RELATIONS Temperature 35.5 C (95.9 F) 07/28/2024 9:13 AM MANAGER OF EMPLOYEE RELATIONS Respiratory Rate 18 07/28/2024 9:13 AM MANAGER OF EMPLOYEE RELATIONS Oxygen Saturation 94% 07/28/2024 9:13 AM MANAGER OF EMPLOYEE RELATIONS Inhaled Oxygen Concentration - - Weight 99.7 kg (219 lb 12.8 oz) 07/17/2024 7:14 PM MANAGER OF EMPLOYEE RELATIONS Height 163 cm (5' 4.17) 07/17/2024 3:00 PM MANAGER OF EMPLOYEE RELATIONS Body Mass Index 37.53 07/17/2024 3:00 PM MANAGER OF EMPLOYEE RELATIONS Plan of Treatment Upcoming Encounters Date Type Department Care Team (Late st Contact Info) Description 07/29/2024 10:00 AM MANAGER OF EMPLOYEE RELATIONS Infusion Department of Infusion Therapy in [address] [phone] Melinda Isaac APRN, C.N.P. [address] [place] [phone] 07/29/2024 2:20 PM MANAGER OF EMPLOYEE RELATIONS Office Visit Department of Community Internal Medicine in [address] [phone] Prudence Mena MPAS, P.A.-C. [address] [place] [phone] 07/30/2024 9:00 AM MANAGER OF EMPLOYEE RELATIONS Infusion Department of Infusion Therapy in [address] [address] Melinda Isaac APRN, C.N.P. [address] [place] [phone] 07/31/2024 8:00 AM MANAGER OF EMPLOYEE RELATIONS Infusion Department of Infusion Therapy in [address] [address] Melinda Isaac APRN, C.N.P. [address] [place] [phone] 08/01/2024 7:00 AM MANAGER OF EMPLOYEE RELATIONS Infusion Department of Infusion Therapy in [address] [address] Melinda Isaac APRN, C.N.P. [address] [place] [phone] 08/02/2024 9:00 AM MANAGER OF EMPLOYEE RELATIONS Infusion Department of Infusion Therapy in [address] [phone] Melinda Isaac APRN, C.N.P. [address] [place] [phone] 08/02/2024 12:30 PM MANAGER OF EMPLOYEE RELATIONS Clinical Communication Virtual Review in [place], [place] [address] [place] [address] 08/03/2024 9:00 AM MANAGER OF EMPLOYEE RELATIONS Infusion Department of Infusion Therapy in [address] [phone] Melinda Isaac APRN, C.N.P. [address] [place] [phone] 08/04/2024 9:00 AM MANAGER OF EMPLOYEE RELATIONS Infusion Department of Infusion Therapy in [address] [phone] Melinda Isaac APRN, C.N.P. [address] [place] [phone] 08/05/2024 8:45 AM MANAGER OF EMPLOYEE RELATIONS Appointment Department of Radiology, [facility], in [place], [place] [address] [place] [phone] Kayleigh Small M.D. [address] [place] [phone] 08/05/2024 9:00 AM MANAGER OF EMPLOYEE RELATIONS Infusion Department of Infusion Therapy in [address] [phone] Melinda Isaac APRN, C.N.P. [address] [place] [phone] 08/05/2024 11:00 AM MANAGER OF EMPLOYEE RELATIONS Office Visit Section of Infectious Diseases in [place], [place] [address] [place] [phone] Kayleigh Small M.D. [address] [place] [phone] 08/06/2024 9:00 AM MANAGER OF EMPLOYEE RELATIONS Infusion Department of Infusion Therapy in [address] [phone] Melinda Isaac APRN, C.N.P. [address] [place] [phone] 08/07/2024 9:00 AM MANAGER OF EMPLOYEE RELATIONS Infusion Department of Infusion Therapy in [address] [address] Melinda Isaac APRN, C.N.P. [address] [place] [phone] 08/08/2024 9:00 AM MANAGER OF EMPLOYEE RELATIONS Infusion Department of Infusion Therapy in [address] [address] Melinda Isaac APRN, C.N.P. [address] [place] [phone] 08/09/2024 9:00 AM MANAGER OF EMPLOYEE RELATIONS Infusion Department of Infusion Therapy in [address] [address] Melinda Isaac APRN, C.N.P. [address] [place] [phone] 08/10/2024 9:00 AM MANAGER OF EMPLOYEE RELATIONS Infusion Department of Infusion Therapy in [address] [phone] Melinda Isaac APRN, C.N.P. [address] [place] [phone] 08/11/2024 9:00 AM MANAGER OF EMPLOYEE RELATIONS Infusion Department of Infusion Therapy in [address] [phone] Melinda Isaac APRN, C.N.P. [address] [place] [phone] 08/12/2024 9:00 AM MANAGER OF EMPLOYEE RELATIONS Infusion Department of Infusion Therapy in [address] [address] Melinda Isaac APRN, C.N.P. [address] [place] [phone] 08/13/2024 8:30 AM MANAGER OF EMPLOYEE RELATIONS Infusion Department of Infusion Therapy in [address] [phone] Melinda Isaac APRN, C.N.P. [address] [place] [phone] 08/14/2024 9:00 AM MANAGER OF EMPLOYEE RELATIONS Infusion Department of Infusion Therapy in [address] [address] Melinda Isaac APRN, C.N.P. [address] [place] [phone] 08/15/2024 9:00 AM MANAGER OF EMPLOYEE RELATIONS Infusion Department of Infusion Therapy in [address] [phone] Melinda Isaac APRN, C.N.P. [address] [place] [phone] 08/16/2024 9:00 AM MANAGER OF EMPLOYEE RELATIONS Infusion Department of Infusion Therapy in [address] [phone] Melinda Isaac APRN, C.N.P. [address] [place] [phone] 08/17/2024 9:00 AM MANAGER OF EMPLOYEE RELATIONS Infusion Department of Infusion Therapy in [address] [phone] Melinda Isaac APRN, C.N.P. [address] [place] [phone] 08/18/2024 9:00 AM MANAGER OF EMPLOYEE RELATIONS Infusion Department of Infusion Therapy in [address] [phone] Melinda Isaac APRN, C.N.P. [address] [place] [phone] Health Maintenance Due Date Last Done Comments Hepatitis B Vaccines (1 of 3 - 19+ 3-dose series) 2005 Pneumococcal vaccine (0-49 years) (1 of 2 - PCV) 2005 DTaP,Tdap,and Td Vaccines (2 - Td or Tdap) 11/08/2023 11/07/2013 COVID-19 Vaccine ( season) 2024 08/23/2022, 12/23/2021, 12/02/2021 Influenza Vaccine (#1) 2024 09/13/2013 Visit: Chronic Disease, age 18+ 06/05/2024 06/05/2023 Depression Monitoring (PHQ-9 for quality tracking) 07/03/2024 Asthma Action Plan 07/11/2024 Asthma Control Test Questionnaire 07/11/2024 Asthma Management/Exacerbation Questionnaire (AMQ/AEQ) 07/11/2024 Depression Monitoring (PHQ-9) 11/07/2024 07/10/2024 Creatinine Level (Kidney Function Test) 07/26/2025 07/26/2024, 07/24/2024, 07/21/2024, Additional history exists Glucose Test for Med Monitoring 07/26/2025 07/26/2024, 07/21/2024, 07/19/2024, Additional history exists Potassium Level 07/26/2025 07/26/2024, 07/03, 07/19/2024, Additional history exists Sodium Level 07/26/2025 07/26/2024, 07/03, 07/19/2024, Additional history exists Office Visit for Blood Pressure Check / Re-check 07/28/2025 07/28/2024 Lipid (Cholesterol) Screening 10/08/2025 10/08/2020 HIV Screening Completed 07/17/2024, 08/23/2022 HPV Vaccines Aged Out No longer eligi ble based on patient's age to complete this topic IPV Vaccines Aged Out No longer eligi ble based on patient's age to complete this topic Procedures Procedure Name Priority Date/Time Associated Diagnosis Comments CT CHEST ANGIOGRAM AND PULMONARY ARTERIES WITH IV CONTRAST RAD - Semiurgent (Fast; most ED patients; some inpatients) 07/26/2024 10:37 AM MANAGER OF EMPLOYEE RELATIONS DX CHEST AP OR PA AND LATERAL 2 VIEWS RAD - Semiurgent (Fast; most ED patients; some inpatients) 07/26/2024 9:54 AM MANAGER OF EMPLOYEE RELATIONS BASIC METABOLIC PANEL, S/P STAT 07/26/2024 9:44 AM MANAGER OF EMPLOYEE RELATIONS SEDIMENTATION RATE, B STAT 07/26/2024 9:44 AM MANAGER OF EMPLOYEE RELATIONS C-REACTIVE PROTEIN (CRP), S/P STAT 07/26/2024 9:44 AM MANAGER OF EMPLOYEE RELATIONS CBC WITH DIFFERENTIAL, B STAT 07/26/2024 9:44 AM MANAGER OF EMPLOYEE RELATIONS CT CHEST WITH IV CONTRAST RAD - Routine (most inpatients and all outpatients) 07/24/2024 10:24 AM MANAGER OF EMPLOYEE RELATIONS Pneumonia ALKALINE PHOSPHATASE, S/P Routine 07/24/2024 10:02 AM MANAGER OF EMPLOYEE RELATIONS Cnc Machinist 2Nd Shift Antibiotic Treatment ALANINE AMINOTRANSFERASE (ALT), S/P Routine 07/24/2024 10:02 AM MANAGER OF EMPLOYEE RELATIONS Mcfp Antibiotic Treatment CREATININE WITH EGFR, S/P Routine 07/24/2024 10:02 AM MANAGER OF EMPLOYEE RELATIONS Mcfp Antibiotic Treatment CBC WITH DIFFERENTIAL, B Routine 07/24/2024 10:02 AM MANAGER OF EMPLOYEE RELATIONS Mcfp Antibiotic Treatment BASIC METABOLIC PANEL, S/P Routine 07/21/2024 9:24 AM MANAGER OF EMPLOYEE RELATIONS Pneumonia CBC WITH DIFFERENTIAL, B Routine 07/21/2024 9:24 AM MANAGER OF EMPLOYEE RELATIONS Pneumonia DX CHEST AP OR PA AND LATERAL 2 VIEWS RAD - Routine (most inpatients and all outpatients) 07/19/2024 1:04 PM MANAGER OF EMPLOYEE RELATIONS NOCTURNAL OXYGEN STUDY - RT Routine 07/19/2024 12:24 PM MANAGER OF EMPLOYEE RELATIONS DX CHEST AP OR PA AND LATERAL 2 VIEWS RAD - Routine (most inpatients and all outpatients) 07/19/2024 9:10 AM MANAGER OF EMPLOYEE RELATIONS ADULT OXYGEN THERAPY Routine 07/19/2024 8:01 AM MANAGER OF EMPLOYEE RELATIONS BASIC METABOLIC PANEL, S/P Routine 07/19/2024 6:02 AM MANAGER OF EMPLOYEE RELATIONS CBC WITHOUT DIFFERENTIAL, B Routine 07/19/2024 6:02 AM MANAGER OF EMPLOYEE RELATIONS PLACE PERIPHERALLY INSERTED CENTRAL CATHETER (PICC) Routine 07/18/2024 8:43 PM MANAGER OF EMPLOYEE RELATIONS ADULT OXYGEN THERAPY Routine 07/18/2024 8:01 PM MANAGER OF EMPLOYEE RELATIONS DX CHEST AP OR PA AND LATERAL 2 VIEWS RAD - Routine (most inpatients and all outpatients) 07/18/2024 10:15 AM MANAGER OF EMPLOYEE RELATIONS ADULT OXYGEN THERAPY Routine 07/18/2024 8:00 AM MANAGER OF EMPLOYEE RELATIONS ADULT OXYGEN THERAPY Routine 07/17/2024 8:01 PM MANAGER OF EMPLOYEE RELATIONS HIV-1/-2 AG AND AB SCREEN, PLASMA Routine 07/17/2024 5:05 PM MANAGER OF EMPLOYEE RELATIONS ADULT OXYGEN THERAPY Routine 07/17/2024 8:01 AM MANAGER OF EMPLOYEE RELATIONS ADULT OXYGEN THERAPY Routine 07/16/2024 8:01 PM MANAGER OF EMPLOYEE RELATIONS RESPIRATORY ASSESS AND TREAT Routine 07/16/2024 2:00 PM MANAGER OF EMPLOYEE RELATIONS VANCOMYCIN, TROUGH, S Timed 07/16/2024 10:31 AM MANAGER OF EMPLOYEE RELATIONS ADULT OXYGEN THERAPY Routine 07/16/2024 8:01 AM MANAGER OF EMPLOYEE RELATIONS ADULT OXYGEN THERAPY Routine 07/15/2024 8:01 PM MANAGER OF EMPLOYEE RELATIONS ADULT OXYGEN THERAPY Routine 07/15/2024 6:49 PM MANAGER OF EMPLOYEE RELATIONS ADULT OXYGEN THERAPY Routine 07/15/2024 6:49 PM MANAGER OF EMPLOYEE RELATIONS ADULT OXYGEN THERAPY Routine 07/15/2024 6:49 PM MANAGER OF EMPLOYEE RELATIONS DX CHEST 1 VIEW RAD - Routine (most inpatients and all outpatients) 07/15/2024 4:51 PM MANAGER OF EMPLOYEE RELATIONS BACTERIAL CULTURE, AEROBIC + SUSC Routine 07/15/2024 4:00 PM MANAGER OF EMPLOYEE RELATIONS Empyema Pleural (HCC) ACTINOMYCES CULTURE Routine 07/15/2024 4 :00 PM MANAGER OF EMPLOYEE RELATIONS Empyema Pleural (HCC) MYCOBACTERIAL CULTURE, V Routine 07/15/2024 4:00 PM MANAGER OF EMPLOYEE RELATIONS Empyema Pleural (HCC) FUNGAL SMEAR Routine 07/15/2024 4:00 PM MANAGER OF EMPLOYEE RELATIONS Empyema Pleural (HCC) LEGIONELLA CULTURE Routine 07/15/2024 4: 00 PM MANAGER OF EMPLOYEE RELATIONS Empyema Pleural (HCC) ACID FAST SMEAR FOR MYCOBACTERIUM Routine 07/15/2024 4:00 PM MANAGER OF EMPLOYEE RELATIONS Empyema Pleural (HCC) GRAM STAIN Routine 07/15/2024 4:00 PM MANAGER OF EMPLOYEE RELATIONS Empyema Pleural (HCC) FUNGAL CULTURE, ROUTINE Routine 07/15/2024 4:00 PM MANAGER OF EMPLOYEE RELATIONS Empyema Pleural (HCC) BACTERIAL CULTURE, ANAEROBIC + SUSC Routine 07/15/2024 4:00 PM MANAGER OF EMPLOYEE RELATIONS Empyema Pleural (HCC) BACTERIAL CULTURE, AEROBIC + SUSC Routine 07/15/2024 2:24 PM MANAGER OF EMPLOYEE RELATIONS Empyema Pleural (HCC) MYCOBACTERIAL CULTURE, V Routine 07/15/2024 2:24 PM MANAGER OF EMPLOYEE RELATIONS Empyema Pleural (HCC) FUNGAL SMEAR Routine 07/15/2024 2:24 PM MANAGER OF EMPLOYEE RELATIONS Empyema Pleural (HCC) ACID FAST SMEAR FOR MYCOBACTERIUM Routine 07/15/2024 2:24 PM MANAGER OF EMPLOYEE RELATIONS Empyema Pleural (HCC) GRAM STAIN Routine 07/15/2024 2:24 PM MANAGER OF EMPLOYEE RELATIONS Empyema Pleural (HCC) FUNGAL CULTURE, ROUTINE Routine 07/15/2024 2:24 PM MANAGER OF EMPLOYEE RELATIONS Empyema Pleural (HCC) LDA ANE ARTERIAL LINE INSERTION Routine 07/15/2024 1:31 PM MANAGER OF EMPLOYEE RELATIONS [place] ARTL CATH/CNULA MONITOR PERC Routine 07/15/2024 1:31 PM MANAGER OF EMPLOYEE RELATIONS LDA ANE ENDOTRACHEAL AIRWAY Routine 07/15/2024 1:17 PM MANAGER OF EMPLOYEE RELATIONS THORACOSCOPY - DECORTICATION 07/15/2024 12:32 PM MANAGER OF EMPLOYEE RELATIONS Empyema Pleural (HCC) TYPE AND SCREEN STAT 07/15/2024 7:50 AM MANAGER OF EMPLOYEE RELATIONS MRSA/STAPHYLOCOCCUS AUREUS, NASAL, BY PCR Routine 07/14/2024 10:39 AM MANAGER OF EMPLOYEE RELATIONS BASIC METABOLIC PANEL, S/P Routine 07/14/2024 4:09 AM MANAGER OF EMPLOYEE RELATIONS DX CHEST PORTABLE 1 VIEW RAD - Routine (most inpatients and all outpatients) 07/13/2024 9:07 PM MANAGER OF EMPLOYEE RELATIONS CBC WITHOUT DIFFERENTIAL, B Routine 07/13/2024 8:14 PM MANAGER OF EMPLOYEE RELATIONS OUTSIDE DX CHEST Routine 07/13/2024 8:40 AM MANAGER OF EMPLOYEE RELATIONS OUTSIDE CT BODY Routine 07/13/2024 12:05 AM MANAGER OF EMPLOYEE RELATIONS DX CHEST AP OR PA AND LATERAL 2 VIEWS RAD - Routine (most inpatients and all outpatients) 07/11/2024 11:26 AM MANAGER OF EMPLOYEE RELATIONS Pneumonia BASIC METABOLIC PANEL, S/P Routine 07/11/2024 11:17 AM MANAGER OF EMPLOYEE RELATIONS Pneumonia CBC WITH DIFFERENTIAL, B Routine 07/11/2024 11:17 AM MANAGER OF EMPLOYEE RELATIONS Pneumonia OUTSIDE CT BODY Routine 06/30/2024 11:45 AM MANAGER OF EMPLOYEE RELATIONS OUTSIDE DX CHEST Routine 06/30/2024 10:05 AM MANAGER OF EMPLOYEE RELATIONS OUTSIDE DX CHEST Routine 06/26/2024 2:20 PM MANAGER OF EMPLOYEE RELATIONS from Last 3 Months Results * CT Chest Angiogram and Pulmonary Arteries with IV Contrast (07/26/2024 10:37 AM MANAGER OF EMPLOYEE RELATIONS) Anatomical Region Laterality Modality Chest, Cardiovascular RST LO S, Thoracic ARZ LOS, Thoracic FLA LOS N/A Computed Tomography 07/26/2024 10:4 2 AM MANAGER OF EMPLOYEE RELATIONS Impressions 07/26/2024 10:46 AM MANAGER OF EMPLOYEE RELATIONS 1. Negative for acute pulmonary embolism. 2. Similar findings of multifocal pneumonia. 3. Stable small left pleural effusion. Narrative 07/26/2024 10:46 AM MANAGER OF EMPLOYEE RELATIONS EXAM: CT CHEST ANGIOGRAM AND PULMONARY ARTERIES WITH IV CONTRAST Including 3D image postprocessing with or without AI assistance. COMPARISON: CT chest 07/24/2024 FINDINGS: Negative for acute pulmonary embolism. Normal caliber main pulmonary artery and aorta. Normal heart size. No pericardial effusion. Right upper extremity PICC line terminating in the right atrium. Mild diffuse metallic attenuation of the lungs may be due to a combination of small airways disease and atelectasis as the exam was performed with patient in expiration. Mild bilateral bronchial wall thickening. Scattered patchy bilateral pulmonary interstitial and airspace opacities compatible with pneumonia, similar to 07/24/2024. Small left pleural effusion with associated atelectasis. Stable enlarged mediastinal and hilar lymph nodes which are likely reactive. The osseous structures are normal. The visualized upper abdomen is unremarkable. Procedure Note Michael Agarwal M.D. - 07/26/2024 EXAM: CT CHEST ANGIOGRAM AND PULMONARY ARTERIES WITH IV CONTRAST Including 3D image postprocessing with or without AI assistance. COMPARISON: CT chest 07/24/2024 FINDINGS: Negative for acute pulmonary embolism. Normal caliber main pulmonaryartery and aorta. Normal heart size. No pericardial effusion. Right upperextremity PICC line terminating in the right atrium. Mild diffuse metallic attenuation of the lungs may be due to a combinationof small airways disease and atelectasis as the exam was performed withpatient in expiration. Mild bilateral bronchial wall thickening. Scatteredpatchy bilateral pulmonary interstitial and airspace opacities compatible with pneumonia, similar to07/24/2024. Small left pleural effusion with associated atelectasis. Stable enlarged mediastinal and hilar lymph nodes which are likelyreactive. The osseous structures are normal. The visualized upper abdomen isunremarkable. IMPRESSION: 1. Negative for acute pulmonary embolism. 2. Similar findings of multifocal pneumonia. 3. Stable small left pleural effusion. Dilcia Valero APRN, C.N.P. IM CT PROCEDURE S Final Result * DX Chest AP or PA and Lateral 2 Views (07/26/2024 9:54 AM MANAGER OF EMPLOYEE RELATIONS) Only the most recent of5 resultswithin the time period is included. Anatomical Region Laterality Modality Chest, Thoracic RST LOS, Tho racic ARZ LOS, Thoracic FLA LOS N/A Digital Radiography Impressions 07/26/2024 9:59 AM MANAGER OF EMPLOYEE RELATIONS Right upper extremity PICC with tip projected over the right atrium. Small left pleural effusion, similar to prior. Scattered linear scarring/atelectasis. The groundglass and tree-in-bud opacities seen on prior CT are not well seen within the limits of radiography. July 24, 2024 and July 19, 2024 comparisons. Narrative 07/26/2024 9:59 AM MANAGER OF EMPLOYEE RELATIONS EXAM: DX CHEST AP OR PA AND LATERAL 2 VIEWS Procedure Note Magnus Omer M.D. - 07/26/2024 EXAM: DX CHEST AP OR PA AND LATERAL 2 VIEWS IMPRESSION: Right upper extremity PICC with tip projected over the right atrium. Smallleft pleural effusion, similar to prior. Scattered linearscarring/atelectasis. The groundglass and tree-in-bud opacities seen onprior CT are not well seen within the limits of radiography. July 24, 2024 and July 19, 2024 comparisons. Dilcia Valero APRN, C.N.P. IMG DIAGNOSTIC I MAGING PROCEDURES Final Result * (ABNORMAL) Sedimentation Rate (07/26/2024 9:44 AM MANAGER OF EMPLOYEE RELATIONS) Sedimentation Rate, B 102(H) 0 - 29 mm/1 h 07/26/2024 1:33 PM MANAGER OF EMPLOYEE RELATIONS RDWG Blood (Blood, Venous) 07/26/2024 9:44 AM MANAGER OF EMPLOYEE RELATIONS 07/26/2024 12:52 PM MANAGER OF EMPLOYEE RELATIONS Dilcia Valero APRN, C.N.P. LAB BLOOD ADD-ON Final Result [facility] [address] [place] [address], [facility] RDWG [facility] [place] [address] [place] [address] * (ABNORMAL) CBC with Differential, Blood (07/26/2024 9:44 AM MANAGER OF EMPLOYEE RELATIONS) Only the most recent of4 resultswithin the time period is included. Hemoglobin 9.8(L) 11.6 - 15.0 g/dL 07/26/2024 9:55 AM MANAGER OF EMPLOYEE RELATIONS CNFL Hematocrit 31.4(L) 35.5 - 44.9 % 07/26/2024 9:55 AM MANAGER OF EMPLOYEE RELATIONS CNFL Erythrocytes 3.55(L) 3.92 - 5.13 x10(12)/L 07/26/2024 9:55 AM MANAGER OF EMPLOYEE RELATIONS CNFL MCV 88.5 78.2 - 97.9 fL 07/26/2024 9:55 AM MANAGER OF EMPLOYEE RELATIONS CNFL RBC Distrib Width 15.4 12.2 - 16.1 % 07/26/2024 9:55 AM MANAGER OF EMPLOYEE RELATIONS CNFL Platelet Count 792(H) 157 - 371 x10(9)/L 07/26/2024 9:55 AM MANAGER OF EMPLOYEE RELATIONS CNFL Leukocytes 11.1(H) 3.4 - 9.6 x10(9)/L 07/26/2024 9:55 AM MANAGER OF EMPLOYEE RELATIONS CNFL Neutrophils 8.16(H) 1.56 - 6.45 x10(9)/L 07/26/2024 9:55 AM MANAGER OF EMPLOYEE RELATIONS CNFL Lymphocytes 1.74 0.95 - 3.07 x10(9)/L 07/26/2024 9:55 AM MANAGER OF EMPLOYEE RELATIONS CNFL Monocytes 0.79 0.26 - 0.81 x10(9)/L 07/26/2024 9:55 AM MANAGER OF EMPLOYEE RELATIONS CNFL Eosinophils 0.36 0.03 - 0.48 x10(9)/L 07/26/2024 9:55 AM MANAGER OF EMPLOYEE RELATIONS CNFL Basophils 0.07 0.01 - 0.08 x10(9)/L 07/26/2024 9:55 AM MANAGER OF EMPLOYEE RELATIONS CNFL Blood (Blood, Venous) 07/26/2024 9:44 AM MANAGER OF EMPLOYEE RELATIONS 07/26/2024 9:48 AM MANAGER OF EMPLOYEE RELATIONS us Dilcia Valero APRN, C.N.P. LAB BLOOD ADD-ON Final Result [facility] [address] [place] [address], [facility] CNFL [facility] in [address] [address] * (ABNORMAL) CRP (C-Reactive Protein) (07/26/2024 9:44 AM MANAGER OF EMPLOYEE RELATIONS) C-Reactive Protein (CRP), P 43.3(H) <5.0 mg/L 07/26/2024 10:15 AM MANAGER OF EMPLOYEE RELATIONS CNFL Blood (Blood, Venous) 07/26/2024 9:44 AM MANAGER OF EMPLOYEE RELATIONS 07/26/2024 9:48 AM MANAGER OF EMPLOYEE RELATIONS Dilcia Valero APRN, C.N.P. LAB BLOOD ADD-ON Final Result [facility] [address] [place] [address], [facility] CNFL [facility] [place] [address] * Basic Metabolic Panel (07/26/2024 9:44 AM MANAGER OF EMPLOYEE RELATIONS) Only the most recent of5 resultswithin the time period is included. Potassium, P 3.9 3.6 - 5.2 mmol/L 07/26/2024 10:15 AM MANAGER OF EMPLOYEE RELATIONS CNFL Sodium, P 141 135 - 145 mmol/L 07/26/2024 10:15 AM MANAGER OF EMPLOYEE RELATIONS CNFL Chloride, P 105 98 - 107 mmol/L 07/26/2024 10:15 AM MANAGER OF EMPLOYEE RELATIONS CNFL Bicarbonate, P 25 22 - 29 mmol/L 07/26/2024 10:15 AM MANAGER OF EMPLOYEE RELATIONS CNFL Anion Gap, P 11 7 - 15 07/26/2024 10:15 AM MANAGER OF EMPLOYEE RELATIONS CNFL BUN (Blood Urea Nitrogen), P 10 6 - 21 mg/dL 07/26/2024 10:15 AM MANAGER OF EMPLOYEE RELATIONS CNFL Creatinine 0.62 0.59 - 1.04 mg/dL 07/26/2024 10:15 AM MANAGER OF EMPLOYEE RELATIONS CNFL Estimated GFR (eGFR) >90 >=60 mL/min/BSA 07/26/2024 10:15 AM MANAGER OF EMPLOYEE RELATIONS CNFL Comment: Estimated GFR calculated using the 2020 CKD_EPI creatinine equation. Calcium, Total, P 8.8 8.6 - 10.0 mg/dL 07/26/2024 10:15 AM MANAGER OF EMPLOYEE RELATIONS CNFL Glucose, P 122 70 - 140 mg/dL 07/26/2024 10:15 AM MANAGER OF EMPLOYEE RELATIONS CNFL Blood (Blood, Venous) 07/26/2024 9:44 AM MANAGER OF EMPLOYEE RELATIONS 07/26/2024 9:48 AM MANAGER OF EMPLOYEE RELATIONS us Dilcia Valero APRN, C.N.P. LAB BLOOD ADD-ON Final Result Performing Organization Address City/State/[facility] Co de Phone Number [facility] [address] [place] [address], [facility] CNFL [facility] in [address] [address] * CT Chest with IV Contrast (07/24/2024 10:24 AM MANAGER OF EMPLOYEE RELATIONS) Anatomical Region Laterality Modality Chest, Thoracic RST LOS, Tho racic ARZ LOS, Thoracic ARZ LOS, Thoracic FLA LOS N/A Computed Tomography 07/24/2024 10:2 2 AM MANAGER OF EMPLOYEE RELATIONS Impressions 07/24/2024 11:16 AM MANAGER OF EMPLOYEE RELATIONS Pneumonia and small left pleural effusion. Narrative 07/24/2024 11:16 AM MANAGER OF EMPLOYEE RELATIONS EXAM: CT CHEST WITH IV CONTRAST COMPARISON: [...] Pneumonia and small left pleural effusion. Prudence TO P.A.-C. IMG CT PROCEDURES Final Result * ALT (Alanine Aminotransferase) (07/24/2024 10:02 AM MANAGER OF EMPLOYEE RELATIONS) Alanine Aminotransferase (ALT), P 21 7 - 45 U/L 07/24/2024 10:24 AM MANAGER OF EMPLOYEE RELATIONS CNFL Blood (Blood, PICC) 07/24/2024 10:02 AM MANAGER OF EMPLOYEE RELATIONS 07/24/2024 10:07 AM MANAGER OF EMPLOYEE RELATIONS Kaylie Gutierrez.Susanna., M.S. LAB BLOOD [place] [address], [facility] in [address] [address] * Alkaline Phosphatase (07/24/2024 10:02 AM MANAGER OF EMPLOYEE RELATIONS) Alkaline Phosphatase, P 86 35 - 104 U/L 07/24/2024 10:24 AM MANAGER OF EMPLOYEE RELATIONS CNFL Blood (Blood, PICC) 07/24/2024 10:02 AM MANAGER OF EMPLOYEE RELATIONS 07/24/2024 10:07 AM MANAGER OF EMPLOYEE RELATIONS Kaylie Gutierrez.Susanna., M.S. LAB BLOOD [place] [address], [facility] [place] [address] * Creatinine with Estimated GFR (07/24/2024 10:02 AM MANAGER OF EMPLOYEE RELATIONS) Pathologist [facility] Creatinine 0.60 0.59 - 1.04 mg/dL 07/24/2024 10:24 AM MANAGER OF EMPLOYEE RELATIONS CNFL Estimated GFR (eGFR) >90 >=60 mL/min/BSA 07/24/2024 10:24 AM MANAGER OF EMPLOYEE RELATIONS CNFL Comment: Estimated GFR calculated using the 2020 CKD_EPI creatinine equation. Blood (Blood, PICC) 07/24/2024 10:02 AM MANAGER OF EMPLOYEE RELATIONS 07/24/2024 10:07 AM MANAGER OF EMPLOYEE RELATIONS us Melinda TO, P.A.-C., M.S. LAB BLOOD ADD-ON Final Result [facility] [address] [place] [address], [facility] [place] [address] * (ABNORMAL) CBC without Differential (07/19/2024 6:02 AM MANAGER OF EMPLOYEE RELATIONS) Only the most recent of2 resultswithin the time period is included. Pathologist [facility] Hemoglobin 7.6(L) 11.6 - 15.0 g/dL 07/19/2024 6:38 AM MANAGER OF EMPLOYEE RELATIONS DTL Hematocrit 24.1(L) 35.5 - 44.9 % 07/19/2024 6:38 AM MANAGER OF EMPLOYEE RELATIONS DTL Erythrocytes 2.67(L) 3.92 - 5.13 x10(12)/L 07/19/2024 6:38 AM MANAGER OF EMPLOYEE RELATIONS DTL MCV 90.3 78.2 - 97.9 fL 07/19/2024 6:38 AM MANAGER OF EMPLOYEE RELATIONS DTL RBC Distrib Width 15.6 12.2 - 16.1 % 07/19/2024 6:38 AM MANAGER OF EMPLOYEE RELATIONS DTL Platelet Count 478(H) 157 - 371 x10(9)/L 07/19/2024 6:38 AM MANAGER OF EMPLOYEE RELATIONS DTL Leukocytes 9.8(H) 3.4 - 9.6 x10(9)/L 07/19/2024 6:38 AM MANAGER OF EMPLOYEE RELATIONS DTL Blood (Blood, Venous) 07/19/2024 6:02 AM MANAGER OF EMPLOYEE RELATIONS 07/19/2024 6:26 AM MANAGER OF EMPLOYEE RELATIONS us Lopez Garvey M.D. LAB BLOOD ADD-ON Final Resul t [facility] [address] [place] [address], [place] DTL [facility] [address] [place] [address] * Place peripherally inserted central catheter (PICC) (07/18/2024 8:43 PM MANAGER OF EMPLOYEE RELATIONS) Narrative MMODAL - 07/18/2024 8:43 PM MANAGER OF EMPLOYEE RELATIONS Rayo Finch R.N. 07/18/2024 9:[address] peripherally inserted central catheter (PICC) Performed by: Rayo Finch R.N. Authorized by: Eveline Mariscal P.A.-C. Care team members present 1. Rayo Finch R.N. 2. Chas Torrez VA-BC, R.N., MARLINE PROCEDURE DETAILS Select line: PICC Line type: temporary (non-tunneled, non-implanted) Line size: 4.5 FR Catheter to vein ratio less than 45%: yes Adult or Siddharth/Peds: adult # of lumens: single lumen Type of catheter: power injectable and non-valved Laterality: right IV location: basilic Optimal site selected: yes Number of insertion attempts: 1 Blood return: yes Placement assistance: ultrasound guided and ECG guidance Tip verification: ECG Catheter length (cm): 40 Initial exposed catheter (cm): 2 Mid upper arm circumference (cm): 36 All lumens flushed (Document volume in I/O): yes CONSENT Consent obtained: written (Risks, benefits and alternatives were discussed and a written Informed Consent was obtained. Please see Informed Consent form for further details.) UNIVERSAL PROTOCOL All relevant documentation and testing were reviewed and available. All required blood products, implants, devices and or special equipment were made available as applicable. Pre-procedure verification was conducted and the correct site was marked if required. A fire risk and smoke assessment were done as applicable. The procedural time-out to verify correct patient, correct side/site, and procedure was conducted prior to performing the procedure and confirmed in a procedural pause. PRE-PROCEDURE DETAILS Indications: Needed after discharge for ongoing care Appropriate hand hygiene, gown, cap, mask, protective eyewear, sterile gloves, skin preparation, sterile drape, and strict aseptic technique were utilized as applicable for the procedure.: yes Site preparation: Chlorhexidine SEDATION / ANESTHESIA Anesthesia method: local infiltration Local infiltrate type: lidocaine POST-PROCEDURE DETAILS Procedure completed successfully: yes Complications: no apparent complications Comments The following upper extremity veins were assessed with ultrasound and measured to ensure appropriate onjmscin-sh-loqs ratio of 45% or less: Right Basilic 0.45cm Tissue adhesive has been applied to your catheter insertion site for securement, stabilization, and sealant. The purpose of the tissue adhesive is to reduce bleeding, reduce catheter movement/dislodgement, and protect the site from contamination. The tissue adhesive takes the place of a chlorhexidine gluconate (CHG) disk or dressing and also any other devices used for securement. Tissue adhesive will remain attached to the skin surface until natural cellular regeneration occurs (approx. 5-7 days). It is intended to be used with a transparent film dressing. Site care is recommended every 7 days. If tissue adhesive is not reapplied at the time of site care, please assess, clean, and dress the site per institutional guidelines. Residual tissue adhesive on the catheter tubing or skin during the dressing change does NOT need to be removed. If needed, any medical adhesive remover product may be used to release the adhesive from the skin. http://[email or web address]/[email or web address] Eveline Mariscal P.A.-C. PROCEDURE/MINOR SURGICAL ORDERABLES Final Result MMODAL NA * HIV-1/-2 Ag and Ab Screen, Plasma (07/17/2024 5:05 PM MANAGER OF EMPLOYEE RELATIONS) Pathologist [facility] HIV-1/-2 Ag and Ab Screen, P Negative Negative 07/17/2024 8:57 PM MANAGER OF EMPLOYEE RELATIONS [facility] Comment: Negative result does not rule out HIV infection. If exposure to HIV infection occurred <14 days ago, contact the laboratory to request addition of HIV-1/HIV-2 RNA detection, Plasma (HIP12). Blood (Blood, Venous) 07/17/2024 5:05 PM MANAGER OF EMPLOYEE RELATIONS 07/17/2024 7:55 PM MANAGER OF EMPLOYEE RELATIONS us Arslan Pennington APRN, M.S. LAB MICROBIOLOGY - BLOOD ORDERABLES Final Result Performing Organization Address City/[facility]/ZIP Co de Phone Number [facility] [address] [place] [address] [facility] [address] [place] [address] * (ABNORMAL) Vancomycin, Trough (07/16/2024 10:31 AM MANAGER OF EMPLOYEE RELATIONS) [facility] Vancomycin, Trough, S 8.9(L) 10.0 - 20.0 mcg/mL 07/16/2024 12:10 PM MANAGER OF EMPLOYEE RELATIONS DTL Blood (Blood, Venous) 07/16/2024 10:31 AM MANAGER OF EMPLOYEE RELATIONS 07/16/2024 10:52 AM MANAGER OF EMPLOYEE RELATIONS us Patrick Mtz M.D., Ph.D. LAB BLOOD NON ADD-ON Fi nal Result Performing Organization Address [facility] Co de Phone Number [facility] [address] [place] [address], [facility] [address] [place] [address] * DX Chest 1 View (07/15/2024 4:51 PM MANAGER OF EMPLOYEE RELATIONS) Anatomical Region Laterality Modality Chest, Thoracic RST LOS, Tho racic ARZ LOS, Thoracic FLA LOS N/A Digital Radiography Impressions 07/15/2024 4:59 PM MANAGER OF EMPLOYEE RELATIONS Negative for postoperative purposes. Left thoracotomy with 2 left chest tubes. Small left-sided pneumothorax. New left perihilar consolidation/atelectasis since 07/13/2024. Increased bibasilar consolidation/atelectasis. Very low lung volumes accentuate heart size and bronchovascular markings. Narrative 07/15/2024 4:59 PM MANAGER OF EMPLOYEE RELATIONS EXAM: DX CHEST 1 VIEW Procedure Note Jah Elam M.D. - 07/15/2024 EXAM: DX CHEST 1 VIEW IMPRESSION: Negative for postoperative purposes. Left thoracotomy with 2 left chesttubes. Small left-sided pneumothorax. New left perihilarconsolidation/atelectasis since 07/13/2024. Increased bibasilarconsolidation/atelectasis. Very low lung volumes accentuate heart size and bronchovascular markings. us Patrick Mtz M.D., Ph.D. IMG DIAGNOSTIC IMAGING PROCEDURES Final Result * Bacterial Culture, Aerobic + Susceptibility (07/15/2024 4:00 PM MANAGER OF EMPLOYEE RELATIONS) Only the most recent of2 resultswithin the time period is included. Pathologist [facility] Bacterial Culture, Aerobic + Susc No growth after 5 days of incubation. 07/20/2024 7:42 AM MANAGER OF EMPLOYEE RELATIONS DTL Tissue (Pleura, Left) 07/15/2024 4:00 PM MANAGER OF EMPLOYEE RELATIONS us Patrick Mtz M.D., Ph.D. LAB MICROBIOLOGY - GENE RAL ORDERABLES Final Result Performing Organization Address City/[facility]/ZIP Co de Phone Number [facility] [address] [place] [address], [facility] [address] [place] [address] * Fungal Smear (07/15/2024 4:00 PM MANAGER OF EMPLOYEE RELATIONS) Only the most recent of2 resultswithin the time period is included. Pathologist [facility] Fungal Smear Negative. 07/16/2024 8:52 AM MANAGER OF EMPLOYEE RELATIONS DTL Tissue (Pleura, Left) 07/15/2024 4:00 PM MANAGER OF EMPLOYEE RELATIONS us Patrick Mtz M.D., Ph.D. LAB MICROBIOLOGY - GENE RAL ORDERABLES Final Result Performing Organization Address City/[facility]/ZIP Co de Phone Number [facility] [address] [place] [address], [facility] [address] [place] [address] * Legionella Culture (07/15/2024 4:00 PM MANAGER OF EMPLOYEE RELATIONS) Legionella Culture No growth of Legionella species after 7 days of incubation 07/22/2024 8:16 AM MANAGER OF EMPLOYEE RELATIONS DTL Tissue (Pleura, Left) 07/15/2024 4:00 PM MANAGER OF EMPLOYEE RELATIONS us Patrick Mtz M.D., Ph.D. LAB MICROBIOLOGY - GENE RAL ORDERABLES Final Result [facility] [address] [place] [address], [facility] [address] [place] [address] * Acid Fast Smear for Mycobacterium (07/15/2024 4:00 PM MANAGER OF EMPLOYEE RELATIONS) Only the most recent of2 resultswithin the time period is included. Pathologist [facility] Acid Fast Smear For Mycobacterium Negative. 07/15/2024 10:18 PM MANAGER OF EMPLOYEE RELATIONS DTL Tissue (Pleura, Left) 07/15/2024 4:00 PM MANAGER OF EMPLOYEE RELATIONS us Patrick Mtz M.D., Ph.D. LAB MICROBIOLOGY - GENE RAL ORDERABLES Final Result Performing Organization Address City/[facility]/ZIP Co de Phone Number [facility] [address] [place] [address], [facility] [address] [place] [address] * Gram Stain (07/15/2024 4:00 PM MANAGER OF EMPLOYEE RELATIONS) Only the most recent of2 resultswithin the time period is included. Gram Stain No organisms seen. White blood cells, Many 07/15/2024 10:18 PM MANAGER OF EMPLOYEE RELATIONS DTL Tissue (Pleura, Left) 07/15/2024 4:00 PM MANAGER OF EMPLOYEE RELATIONS us Patrick Mtz M.D., Ph.D. LAB MICROBIOLOGY - GENE RAL ORDERABLES Final Result [facility] [address] [place] [address], [place] [facility] [address] [place] [address] * [place] ARTL CATH/CNULA MONITOR PERC, DEE DEE ANE ARTERIAL LINE INSERTION (07/15/2024 1:31 PM MANAGER OF EMPLOYEE RELATIONS) Narrative Sandra May APRN, CRNA - 07/15/2024 1:31 PM MANAGER OF EMPLOYEE RELATIONS Sandra May APRN, CRNA 07/15/2024 5:03 PM Invasive Catheter Date/Time: 07/15/2024 1:31 PM Performed by: Sandra May APRN, CRNA Authorized by: Lanre Hayward M.D. Location: OR PROCEDURE DETAILS: Line type: arterial Laterality: left Location: radial Location details: new site Age group: adult Catheter diameter: 20 Ga Technique: ultrasound guided Monitored: yes Number of attempts: 1 UNIVERSAL PROTOCOL All relevant documentation and testing were reviewed and available. All required blood products, implants, devices and or special equipment were made available as applicable. Pre-procedure verification was conducted and the correct site was marked if required. A fire risk and smoke assessment were done as applicable. The procedural time-out to verify correct patient, correct side/site, and procedure was conducted prior to performing the procedure and confirmed in a procedural pause. PRE-PROCEDURE DETAILS: Appropriate hand hygiene, gown, cap, mask, protective eyewear, sterile gloves, skin preparation, sterile drape, and strict aseptic technique were utilized as applicable for the procedure.: yes Skin preparation: chlorhexidine SEDATION / ANESTHESIA Anesthesia method: anesthesia POST-PROCEDURE DETAILS: Procedure completed successfully: yes Line secured: secured with sutureless device Chlorhexidine disc around insertion site and under catheter with slight turn: yes Notable Events - arterial: none Lanre Hayward M.D. PROCEDURE/MINOR SURGICAL ORD ERABLES Edited Result - Final * LDA ANE ENDOTRACHEAL AIRWAY (07/15/2024 1:17 PM MANAGER OF EMPLOYEE RELATIONS) Narrative Aroldo Johnson RDmitryNDmitry - 07/15/2024 1:17 PM MANAGER OF EMPLOYEE RELATIONS Aroldo Johnson R.N. 07/15/2024 2:03 PM Airway Date/Time: 07/15/2024 1:17 PM Performed by: Aroldo Johnson R.N. Authorized by: Jamie Kumar M.D. Patient location during procedure: OR / Procedure Area PROCEDURE DETAILS: Mask difficulty assessment: oral/nasal airway needed Final airway type: video laryngoscope Laryngeal Manipulation: no Final best view of glottic structures - Cormack/Lehane Score: grade 1 ETT location: oral VL device: glide scope Manchester scope blade size: 3 Tube size: 35 Oral tube type: double lumen right Cuffed: yes Leak Test Performed: no Number of attempt to successful placement: 3 or more Airway confirmation: bilateral breath sounds, positive ETCO2 and bilateral chest rise Other previous techniques attempted: direct laryngoscopy, intubation Number of other approaches attempted: 2 Previous direct laryngoscopy: best view of glottic structures: grade 2A Additional Comments DLETT would not advance through vocal folds. Manchester used with single ETT then exchanged over boujie for DLETT. Verified placement with fiberoptic PRE PROCEDURE DETAILS: Pre evaluation for airway management: procedure Urgency: elective Preop assessment of probable difficulty: questionable / suspicious difficult airway Preoxygenation: bag valve mask SEDATION / ANESTHESIA Anesthesia method: anesthesia POST PROCEDURE DETAILS: Procedure outcome: successful Notable Events: no complications us Jamie Kumar M.D. ANESTHESIA ORDERABLES Final Resu lt * Type and Screen (with Reflex Antibody ID) (07/15/2024 7:50 AM MANAGER OF EMPLOYEE RELATIONS) ABORh AB Pos Not applicable 07/15/2024 8:36 AM MANAGER OF EMPLOYEE RELATIONS STRM Antibody Screen Negative Negative 07/15/2024 8:51 AM MANAGER OF EMPLOYEE RELATIONS STRM Type & Screen Expiration 07/18/2024 23:59 07/15/2024 8:36 AM MANAGER OF EMPLOYEE RELATIONS STRM Testing Location [facility] 07/15/2024 8:10 AM MANAGER OF EMPLOYEE RELATIONS STRM Blood (Blood, Venous) 07/15/2024 7:50 AM MANAGER OF EMPLOYEE RELATIONS 07/15/2024 8:10 AM MANAGER OF EMPLOYEE RELATIONS us Jamie Kumar M.D. LAB BLOOD BANK TEST ORDERABLES F inal Result [facility] [address] [place] [address], [place] STRM [facility] [address] [place] [address] * Staph aureus / MRSA, Nasal, PCR (07/14/2024 10:39 AM MANAGER OF EMPLOYEE RELATIONS) Staphylococcus aureus, PCR Negative Negative 07/14/2024 12:55 PM MANAGER OF EMPLOYEE RELATIONS DTL MRSA, PCR Negative Negative 07/14/2024 12:55 PM MANAGER OF EMPLOYEE RELATIONS DTL Swab (Nares) 07/14/2024 10:3 9 AM MANAGER OF EMPLOYEE RELATIONS 07/14/2024 11:06 AM MANAGER OF EMPLOYEE RELATIONS us Patrick Mtz M.D., Ph.D. LAB MICROBIOLOGY - GENE RAL ORDERABLES Final Result [facility] [address] [place] [address], [place] [facility] [address] [place] [address] * DX Chest Portable 1 View (07/13/2024 9:07 PM MANAGER OF EMPLOYEE RELATIONS) Anatomical Region Laterality Modality Chest, Thoracic RST LOS, Tho racic ARZ LOS, Thoracic FLA LOS N/A Digital Radiography Impressions 07/14/2024 7:27 AM MANAGER OF EMPLOYEE RELATIONS No significant change since earlier today. Bibasilar atelectasis. Small left loculated pleural effusion. Hazy opacification in the bilateral lungs, left greater than right. No discernible pneumothorax. Mildly enlarged cardiomediastinal silhouette. Narrative 07/14/2024 7:27 AM MANAGER OF EMPLOYEE RELATIONS EXAM: DX CHEST PORTABLE 1 VIEW Procedure Note Chaz Montelongo M.D. - 07/14/2024 EXAM: DX CHEST PORTABLE 1 VIEW IMPRESSION: No significant change since earlier today. Bibasilar atelectasis. Smallleft loculated pleural effusion. Hazy opacification in the bilaterallungs, left greater than right. No discernible pneumothorax. Mildlyenlarged cardiomediastinal silhouette. us Lopez Garvey M.D. IMG DIAGNOSTIC IMAGING PROCE DURES Final Result * XR chest 2V-Outside Chest Xray (07/13/2024 8:40 AM MANAGER OF EMPLOYEE RELATIONS) Only the most recent of3 resultswithin the time period is included. Narrative [facility] - 07/13/2024 2:43 PM MANAGER OF EMPLOYEE RELATIONS This order has been created and auto-finalized to support the import of outside images. If available, original interpretation can be found on the Media Tab in Chart Review, in Document Viewer, as an image in QREADS or as an Addendum. If a re-interpretation or overread is required please follow defined workflow. us Provider Not In System IM DIAGNOSTIC IMAGING [place] OCEDURES Final Result Performing Organization Address [facility] de Phone Number [facility] NA * CT Angio Chest PE Protocol-Outside CT Body (07/13/2024 12:05 AM MANAGER OF EMPLOYEE RELATIONS) Only the most recent of2 resultswithin the time period is included. Narrative [facility] - 07/13/2024 2:48 PM MANAGER OF EMPLOYEE RELATIONS This order has been created and auto-finalized to support the import of outside images. If available, original interpretation can be found on the Media Tab in Chart Review, in Document Viewer, as an image in QREADS or as an Addendum. If a re-interpretation or overread is required please follow defined workflow. us Provider Not In System IM CT PROCEDURES Final R esult Performing Organization Address [facility] de Phone Number [facility] NA from Last 3 Months Insurance [facility] Advance Directives For more information, please contact: [phone] * Full Code (Latest Code Status on File) Date Activated Date Inactivated Comments 07/15/2024 6:49 PM 07/20/2024 12:21 PM Question Answer Comments Full Code: Discussed * Full Code Date Activated Date Inactivated Comments 07/13/2024 7:54 PM 07/15/2024 6:49 PM Question Answer Comments Full Code: Not Discussed Due to: Patient not available Care Teams Rehab Director Occupational Therapist Relationship Specialty Start Date End Date Prudence Mena MPAS, P.A.-C. [address] [place] [phone] PCP - General Internal Medicine 02/08/24
--- OUTSIDE RECORDS SUMMARY | 2024-07-28 21:15 | XMS_ITS | Clinical Summary ---
Author Organization [facility] Address [address] [place] [address] Care Team Providers Care Human Resources Officer Name Role Phone Claudia Morillo MD Primary Care Provider [phone] Social History Tobacco Use Types Packs/Day Years Used Date Smoking Tobacco: Never Assessed Comments Unknown Sex and Gender Information Value Date Recorded Sex Assigned at Not on file Legal Sex Female 3:28 PM CDT Gender Identity Not on file Sexual Orientation Not on file Plan of Treatment Not on file Care Teams Human Resources Officer Relationship Specialty Start Date End Date Claudia Morillo MD [facility] [address] [place] [address] PCP - General 02/06/18
--- OUTSIDE RECORDS SUMMARY | 2024-07-28 21:15 | XMS_ITS | Encounter Summary ---
Author Organization [facility] Address [address] [place] [address] Care Team Providers Care Plastic Frame Inserter Name Role Phone [place] Prudence Ori TO Primary Care Pro vider Reason for Referral * Outpatient (Routine) - Authorized Specialty Diagnoses / Procedures Referred By Contac t Referred To Contact Diagnoses Mud Mixer Antibiotic Treatment Procedures Perform central optical effects line up person: Site care Melinda Cohen MPAS, P.A.-C., M.S. [address] [place] [phone] Phone: tel: fax: [facility] Region Referral ID Status Reason Start Date Expiration Date V isits Requested Visits Authorized [id number] Authorized 07/22/2024 10/22/2025 1 1 IVING SUPERVISOR Reason for Visit * Reason Comments Care Coordination Encounter Details Date Type Department Care Team (Late st Contact Info) Description 07/22/2024 Patient Outreach Section of Infectious Diseases in [place], [place] [address] [place] [phone] Sneha Barrett Care Coordination Social History Tobacco Use Types Packs/Day Years Used Date Smoking Tobacco: Former Cigarettes 1.5 0.1 S tarted: 06/21/2024 Passive Smoke Exposure: Past Smokeless Tobacco: Never Alcohol Use Standard Drinks/Week Comments Yes 0 (1 standard drink = 0.6 oz pur e alcohol) socially [facility] Utilities Answer Date Recorded In the past 12 months has th e [employer], [employer], oil, or water iovation threatened to shut off services in your [...] Never 07/27/2022 How often do you attend baptism or jainism serv ices? Never 07/27/2022 Do you belong to any clubs o r organizations such as baptism groups, unions, fraternal or athletic groups, or [...] Answer Date Recorded PHQ-2 Score 6 07/10/2024 [facility] of Occupat ional [facility] - Occupational Stress Questionnaire Answer Date Recorded [...] PM CDT documented as of this encounter Progress Notes * Milka Miller Pharm.D., SUSICP, R.Ph. - 07/24/2024 2:20 PM CST OPAT Pharmacist Phone Outreach for Laboratory Result The patient was not seen in person or examined, and the findings are based on phone discussion. Pertinent labs and antimicrobial regimen as indicated per chart review were assessed. Patient is onceftriaxone metronidazole for pulmonary infection. leukocytosis, thrombophilia is moderate. Relevant microbiology results were reviewed and reveal there is not concern for inadequately covered organism(s) with the current regimen. Of note, there are no positive culture results from patient's admission. I contacted Melinda to assess her elevated WBC and platelet count. She reports having more pain recently compared to previously. She denies fever or discolored mucus. She has not been recently prescribed any new medications. She endorses feeling congested. Assessment/Plan Continue with the current antimicrobials at this time. For monitoring: Continue CBC with diff monitoring weekly The patient expressed understanding of the plan and had no further questions. They are aware of theOPAT contact information for non-urgent antimicrobial related questions. IVING SUPERVISOR documented in this encounter Nursing Notes * Johanny Contreras R.N. - 07/24/2024 12:49 PM CST OPAT NOTE - LAB REVIEW Name Phone Number OPAT Infusion/Labs: [facility]: [facility] Zafar (M-F) OPAT Infusion/Labs: [facility]: [place] (Sat/Sun) Problem: Outpatient Antimicrobial Therapy Monitoring Description: OPAT/COpAT: -Follow up scheduled 08/05/2024 -IFD Managing Service/Provider: ID ICU Medications: IV Ceftriaxone Start Date: 07/17/2024, End date: 08/05/2024 Tentative PO Metronidazole Start Date: 07/17/2024, End date: 08/05/2024 Tentative Goal: Patient will obtain safety monitoring labs Description: Labs required: CBC w/ diff, Creatinine, ALT, and Alk Phos weekly Baseline Creatinine: 0.69, Date: 07/21/2024 Intervention: Labs reviewed Note: Lab results from 07/24/2024 are viewable in the MCR record. CBC abnormality Interpretation and Action: Will review with OPAT pharmacist regarding Elevated platelet count and WBC outside of OPAT parameters and with an increase <5 Reference used: Guideline for Antimicrobial Therapy Monitoring for the Division of Infectious Diseases - KG1700-063 IVING SUPERVISOR documented in this encounter Plan of Treatment Upcoming Encounters Date Type Department Care Team (Late st Contact Info) Description 07/29/2024 10:00 AM RECEIVING SUPERVISOR Infusion Department of Infusion Therapy in [address] [phone] Melinda Isaac APRN, C.N.P. [address] [place] [phone] 07/29/2024 2:20 PM RECEIVING SUPERVISOR Office Visit Department of Community Internal Medicine in [place], [place] [address] [place] [phone] Prudence Mena, LATONIAS, P.A.-C. [address] [place] [phone] 07/30/2024 9:00 AM RECEIVING SUPERVISOR Infusion Department of Infusion Therapy in [address] [phone] Melinda Isaac APRN, C.N.P. [address] [place] [phone] 07/31/2024 8:00 AM RECEIVING SUPERVISOR Infusion Department of Infusion Therapy in [address] [phone] Melinda Isaac APRN, C.N.P. [address] [place] [phone] 08/01/2024 7:00 AM RECEIVING SUPERVISOR Infusion Department of Infusion Therapy in [address] [phone] Melinda Isaac APRN, C.N.P. [address] [place] [phone] 08/02/2024 9:00 AM RECEIVING SUPERVISOR Infusion Department of Infusion Therapy in [address] [phone] Melinda Isaac APRN, C.N.P. [address] [place] [phone] 08/02/2024 12:30 PM RECEIVING SUPERVISOR Clinical Communication Virtual Review in [place], [place] 200 [place] [phone] 08/03/2024 9:00 AM RECEIVING SUPERVISOR Infusion Department of Infusion Therapy in [address] [phone] Melinda Isaac APRN, C.N.P. [address] [place] [phone] 08/04/2024 9:00 AM RECEIVING SUPERVISOR Infusion Department of Infusion Therapy in [address] [phone] Melinda Isaac APRN, C.N.P. [address] [place] [phone] 08/05/2024 8:45 AM RECEIVING SUPERVISOR Appointment Department of Radiology, [facility], in [place], [place] [address] [place] [phone] Kayleigh Small M.D. [address] [place] [phone] 08/05/2024 9:00 AM RECEIVING SUPERVISOR Infusion Department of Infusion Therapy in [address] [phone] Melinda Isaac APRN, C.N.P. [address] [place] [phone] 08/05/2024 11:00 AM RECEIVING SUPERVISOR Office Visit Section of Infectious Diseases in [place], [place] [address] [place] [phone] Kayleigh Small M.D. [address] [place] [phone] 08/06/2024 9:00 AM RECEIVING SUPERVISOR Infusion Department of Infusion Therapy in [address] [phone] Melinda Isaac APRN, C.N.P. [address] [place] [phone] 08/07/2024 9:00 AM RECEIVING SUPERVISOR Infusion Department of Infusion Therapy in [address] [phone] Melinda Isaac APRN, C.N.P. [address] [place] [phone] 08/08/2024 9:00 AM RECEIVING SUPERVISOR Infusion Department of Infusion Therapy in [address] [phone] Melinda Isaac APRN, C.N.P. [address] [place] [phone] 08/09/2024 9:00 AM RECEIVING SUPERVISOR Infusion Department of Infusion Therapy in [address] [phone] Melinda Isaac APRN, C.N.P. [address] [place] [phone] 08/10/2024 9:00 AM RECEIVING SUPERVISOR Infusion Department of Infusion Therapy in [address] [phone] Melinda Isaac APRN, C.N.P. [address] [place] [phone] 08/11/2024 9:00 AM RECEIVING SUPERVISOR Infusion Department of Infusion Therapy in [address] [phone] Melinda Isaac APRN, C.N.P. [address] [place] [phone] 08/12/2024 9:00 AM RECEIVING SUPERVISOR Infusion Department of Infusion Therapy in [address] [phone] Melinda Isaac APRN, C.N.P. [address] [place] [phone] 08/13/2024 8:30 AM RECEIVING SUPERVISOR Infusion Department of Infusion Therapy in [address] [phone] Melinda Isaac APRN, C.N.P. [address] [place] [phone] 08/14/2024 9:00 AM RECEIVING SUPERVISOR Infusion Department of Infusion Therapy in [address] [phone] Melinda Isaac APRN, C.N.P. [address] [place] [phone] 08/15/2024 9:00 AM RECEIVING SUPERVISOR Infusion Department of Infusion Therapy in [address] [phone] Melinda Isaac APRN, C.N.P. [address] [place] [phone] 08/16/2024 9:00 AM RECEIVING SUPERVISOR Infusion Department of Infusion Therapy in [address] [phone] Melinda Isaac APRN, C.N.P. [address] [place] [phone] 08/17/2024 9:00 AM RECEIVING SUPERVISOR Infusion Department of Infusion Therapy in [address] [phone] Melinda Isaac APRN, C.N.P. [address] [place] [phone] 08/18/2024 9:00 AM RECEIVING SUPERVISOR Infusion Department of Infusion Therapy in [address] [phone] Melinda Isaac APRN, C.N.P. [address] [place] [phone] Scheduled Orders Name Type Priority Associated Diagnoses Orde r Schedule CBC with Differential, Blood Lab Routine Mud Mixer Antibiotic Treatment weekly for 2 Occurrences starting 07/22/2024 until 10/20/2025, 1 completed Creatinine with Estimated GFR Lab Routine Mud Mixer Antibiotic Treatment weekly for 2 Occurrences starting 07/22/2024 until 10/20/2025, 1 completed ALT (Alanine Aminotransferase) Lab Routine Mud Mixer Antibiotic Treatment weekly for 2 Occurrences starting 07/22/2024 until 10/20/2025, 1 completed Alkaline Phosphatase Lab Routine Mud Mixer Antibiotic Treatment weekly for 2 Occurrences starting 07/22/2024 until 10/20/2025, 1 completed Perform central optical effects line up person: Site care Procedures Routine Mud Mixer Antibiotic Treatment Expected: 07/29/2024, Expires: 10/20/2025 documented as of this encounter Results * Alkaline Phosphatase (07/24/2024 10:02 AM RECEIVING SUPERVISOR) Alkaline Phosphatase, P 86 35 - 104 U/L 07/24/2024 10:24 AM RECEIVING SUPERVISOR [facility] Blood (Blood, PICC) 07/24/2024 10:02 AM RECEIVING SUPERVISOR 07/24/2024 10:07 AM RECEIVING SUPERVISOR us Melinda TO, P.A.-C., M.S. LAB BLOOD [place] [address], [facility] [place] [address] * ALT (Alanine Aminotransferase) (07/24/2024 10:02 AM RECEIVING SUPERVISOR) Alanine Aminotransferase (ALT), P 21 7 - 45 U/L 07/24/2024 10:24 AM RECEIVING SUPERVISOR [place] Blood (Blood, PICC) 07/24/2024 10:02 AM RECEIVING SUPERVISOR 07/24/2024 10:07 AM RECEIVING SUPERVISOR us Melinda TO, P.A.-C., M.S. LAB BLOOD ADD-ON Final Result [facility] [address], [facility] [address] [address] * Creatinine with Estimated GFR (07/24/2024 10:02 AM RECEIVING SUPERVISOR) [facility] Creatinine 0.60 0.59 - 1.04 mg/dL 07/24/2024 10:24 AM RECEIVING SUPERVISOR CNFL Estimated GFR (eGFR) >90 >=60 mL/min/BSA 07/24/2024 10:24 AM RECEIVING SUPERVISOR CNFL Comment: Estimated GFR calculated using the 2020 CKD_EPI creatinine equation. Blood (Blood, PICC) 07/24/2024 10:02 AM RECEIVING SUPERVISOR 07/24/2024 10:07 AM RECEIVING SUPERVISOR us Melinda TO, P.A.-C., M.S. LAB BLOOD ADD-ON Final Result [facility] [address] [address], [facility] in [address] [address] * (ABNORMAL) CBC with Differential, Blood (07/24/2024 10:02 AM RECEIVING SUPERVISOR) [facility] Hemoglobin 9.4(L) 11.6 - 15.0 g/dL 07/24/2024 10:11 AM RECEIVING SUPERVISOR CNFL Hematocrit 30.2(L) 35.5 - 44.9 % 07/24/2024 10:11 AM RECEIVING SUPERVISOR CNFL Erythrocytes 3.40(L) 3.92 - 5.13 x10(12)/L 07/24/2024 10:11 AM RECEIVING SUPERVISOR CNFL MCV 88.8 78.2 - 97.9 fL 07/24/2024 10:11 AM RECEIVING SUPERVISOR CNFL RBC Distrib Width 15.5 12.2 - 16.1 % 07/24/2024 10:11 AM RECEIVING SUPERVISOR CNFL Platelet Count 641(H) 157 - 371 x10(9)/L 07/24/2024 10:11 AM RECEIVING SUPERVISOR CNFL Leukocytes 12.0(H) 3.4 - 9.6 x10(9)/L 07/24/2024 10:11 AM RECEIVING SUPERVISOR CNFL Neutrophils 8.69(H) 1.56 - 6.45 x10(9)/L 07/24/2024 10:11 AM RECEIVING SUPERVISOR CNFL Lymphocytes 1.73 0.95 - 3.07 x10(9)/L 07/24/2024 10:11 AM RECEIVING SUPERVISOR CNFL Monocytes 0.99(H) 0.26 - 0.81 x10(9)/L 07/24/2024 10:11 AM RECEIVING SUPERVISOR CNFL Eosinophils 0.55(H) 0.03 - 0.48 x10(9)/L 07/24/2024 10:11 AM RECEIVING SUPERVISOR CNFL Basophils 0.06 0.01 - 0.08 x10(9)/L 07/24/2024 10:11 AM RECEIVING SUPERVISOR CNFL Blood (Blood, PICC) 07/24/2024 10:02 AM RECEIVING SUPERVISOR 07/24/2024 10:07 AM RECEIVING SUPERVISOR Melinda TO, P.A.-C., M.S. LAB BLOOD ADD-ON Final Result [facility] [address] [place] [address], [facility] in [address] [address] documented in this encounter Visit Diagnoses Diagnosis Nursing Home Antibiotic Treatment- Primary documented in this encounter Additional Health Concerns Assessment Noted Time PHQ-9 Depression Total Score: 22 025 7:19 PM RECEIVING SUPERVISOR documented as of this encounter Care Teams Plastic Frame Inserter Relationship Specialty Start Date End Date Prudence Mena MPAS, P.A.-C. [address] [place] [address] [place] [phone] PCP - General Internal Medicine 02/08/24 documented as of this encounter
--- OUTSIDE RECORDS SUMMARY | 2024-07-28 21:15 | XMS_ITS | Encounter Summary ---
Author Organization [facility] Address [address] [place] [address] Care Team Providers Care Hardwood Floor Refinisher Name Role Phone Prudence Mena P.A.-CDmitry Primary Care Pro vider Encounter Details Date Type Department Care Team (Late st Contact Info) Description 07/22/2024 Results Follow-Up Department of Community Internal Medicine in [place], [place] [address] [place] [address] Prudence Mena MPAS P.A.-C. [address] [place] [address] Social History Tobacco Use Types Packs/Day Years Used Date Smoking Tobacco: Former Cigarettes 1.5 0.1 S tarted: 06/21/2024 Passive Smoke Exposure: Past Smokeless Tobacco: Never Alcohol Use Standard Drinks/Week Comments Yes 0 (1 standard drink = 0.6 oz pur e alcohol) socially [facility] Utilities Answer Date Recorded In the past 12 months has [facility] [employer], gas, oil, or water [employer] threatened to shut off services in your [...] Never 07/27/2022 How often do you attend pentecostal or jain serv ices? Never 07/27/2022 Do you belong to any clubs o r organizations such as pentecostal groups, unions, fraternal or athletic groups, or [...] Answer Date Recorded PHQ-2 Score 6 07/10/2024 [facility] [place] of Occupat ional Health - Occupational Stress [...] st Contact Info) Description 07/29/2024 10:00 AM CLAY CARMAN Infusion Department of Infusion Therapy in [address] [phone] Melinda Isaac, COOK STARCH, C.N.P. [address] [place] [address] 07/29/2024 2:20 PM CLAY CARMAN Office Visit Department of Community Internal Medicine in [place], [place] [address] [facility] [place] [place] [phone] Prudence Mena MPAS, P.A.-C. [address] [place] [phone] 07/30/2024 9:00 AM CLAY CARMAN Infusion Department of Infusion Therapy in [address] [address] Melinda Isaac APRN, C.N.P. [address] [place] [phone] 07/31/2024 8:00 AM CLAY CARMAN Infusion Department of Infusion Therapy in [address] [address] Melinda Isaac APRN, C.N.P. [address] [place] [phone] 08/01/2024 7:00 AM CLAY CARMAN Infusion Department of Infusion Therapy in [address] [address] Melinda Isaac APRN, C.N.P. [address] [place] [phone] 08/02/2024 9:00 AM CLAY CARMAN Infusion Department of Infusion Therapy in [address] [address] Melinda Isaac APRN, C.N.P. [address] [place] [phone] 08/02/2024 12:30 PM CLAY CARMAN Clinical Communication Virtual Review in [place], [place] [address] [place] [address] 08/03/2024 9:00 AM CLAY CARMAN Infusion Department of Infusion Therapy in [address] [phone] Melinda Isaac, FRED, C.N.P. [address] [place] [phone] 08/04/2024 9:00 AM CLAY CARMAN Infusion Department of Infusion Therapy in [address] [phone] Melinda Isaac APRN, C.N.P. [address] [place] [phone] 08/05/2024 8:45 AM CLAY CARMAN Appointment Department of Radiology, [facility], in [place], [place] [address] [place] [phone] Kayleigh Small M.D. [address] [place] [phone] 08/05/2024 9:00 AM CLAY CARMAN Infusion Department of Infusion Therapy in [address] [phone] Melinda Isaac APRN, C.N.P. [address] [place] [phone] 08/05/2024 11:00 AM CLAY CARMAN Office Visit Section of Infectious Diseases in [place], [place] [address] [place] [phone] Kayleigh Small M.D. [address] [place] [phone] 08/06/2024 9:00 AM CLAY CARMAN Infusion Department of Infusion Therapy in [address] [phone] Melinda Isaac APRN, C.N.P. [address] [place] [phone] 08/07/2024 9:00 AM CLAY CARMAN Infusion Department of Infusion Therapy in [address] [address] Melinda Isaac APRN, C.N.P. [address] [place] [phone] 08/08/2024 9:00 AM CLAY CARMAN Infusion Department of Infusion Therapy in [address] [address] Melinda Isaac APRN, C.N.P. [address] [place] [phone] 08/09/2024 9:00 AM CLAY CARMAN Infusion Department of Infusion Therapy in [address] [address] Melinda Isaac APRN, C.N.P. [address] [place] [phone] 08/10/2024 9:00 AM CLAY CARMAN Infusion Department of Infusion Therapy in [address] [address] Melinda Isaac APRN, C.N.P. [address] [place] [phone] 08/11/2024 9:00 AM CLAY CARMAN Infusion Department of Infusion Therapy in [address] [phone] Melinda Isaac APRN, C.N.P. [address] [place] [phone] 08/12/2024 9:00 AM CLAY CARMAN Infusion Department of Infusion Therapy in [address] [address] Melinda Isaac APRN, C.N.P. [address] [place] [phone] 08/13/2024 8:30 AM CLAY CARMAN Infusion Department of Infusion Therapy in [address] [address] Melinda Isaac APRN, C.N.P. [address] [place] [phone] 08/14/2024 9:00 AM CLAY CARMAN Infusion Department of Infusion Therapy in [address] [address] Melinda Isaac APRN, C.N.P. [address] [place] [phone] 08/15/2024 9:00 AM CLAY CARMAN Infusion Department of Infusion Therapy in [address] [address] Melinda Isaac APRN, C.N.P. [address] [place] [phone] 08/16/2024 9:00 AM CLAY CARMAN Infusion Department of Infusion Therapy in [address] [address] Melinda Isaac APRN, C.N.P. [address] [place] [phone] 08/17/2024 9:00 AM CLAY CARMAN Infusion Department of Infusion Therapy in [address] [address] Melinda Isaac APRN, C.N.P. [address] [place] [phone] 08/18/2024 9:00 AM CLAY CARMAN Infusion Department of Infusion Therapy in [address] [address] Melinda Isaac APRN, C.N.P. [address] [place] [phone] documented as of this encounter Visit Diagnoses Not on filedocumented in this encounter Additional Health Concerns Assessment Noted Time PHQ-9 Depression Total Score: 22 025 7:19 PM CLAY CARMAN documented as of this encounter Care Teams Hardwood Floor Refinisher Relationship Specialty Start Date End Date Prudence Mena MPAS, P.A.-C. [address] [place] [phone] PCP - General Internal Medicine 02/08/24 documented as of this encounter
--- OUTSIDE RECORDS SUMMARY | 2024-07-28 21:15 | XMS_ITS ---
Author Organization [facility] Address [address] [place] [address] Care Team Providers Care Stripper Shovel Operator Name Role Phone Unavailable Unavailable Unavailable Surgery Details Not on file Complications Check Surgery Details section. Procedure Estimated Blood Loss Check Surgery Details section. Procedure Findings Check Surgery Details section. Procedure Specimens Taken Check Surgery Details section.
--- OUTSIDE RECORDS SUMMARY | 2024-07-28 21:15 | XMS_ITS | Referral Summary ---
Author Organization [facility] Address [address] [place] [address] Care Team Providers Care Nuclear Equipment Operator Name Role Phone Prudence Mena P.A.-C. Primary Care Pro vider Source Comments Patient records contain information from all sites at [facility]. For routine questions regarding patient records, call [phone] during business hours, M-F 8:00 AM - 5:00 PM Central Time. Record requests for emergency care only can be directed to [phone] at any time.[facility] Encounters Date Type Department Care Team Description 07/28/2024 9:00 AM RELIGIOUS LEADER Infusion Department of Infusion Therapy in [address] [phone] Melinda Isaac APRN, C.N.P. Empyema Pleural (HCC) (Primary Dx) 07/27/2024 9:00 AM RELIGIOUS LEADER Infusion Department of Infusion Therapy in [address] [phone] Melinda Isaac APRN, C.N.P. Empyema Pleural (HCC) (Primary Dx) 07/26/2024 Results Follow-Up [facility] [address] [address] Lindsay Mejias R.N. 07/26/2024 9:14 AM RELIGIOUS LEADER - 07/26/2024 2:06 PM RELIGIOUS LEADER Emergency [facility] [address] [place], [place] [address] [address] Dilcia Valero APRN, C.N.PDmitry Pain Chest Wall (Primary Dx) Discharge Disposition: Home or Self Care 07/26/2024 9:00 AM RELIGIOUS LEADER Infusion Department of Infusion Therapy in [address] [address] Melinda Isaac APRN, C.N.P. Empyema Pleural (HCC) (Primary Dx) 07/25/2024 Orders Only Division of Thoracic Surgery in [place] [address] [place] [address] Eveline Mariscal P.A.-CDmitry 07/25/2024 9:00 AM RELIGIOUS LEADER Infusion Department of Infusion Therapy in [address] [address] Melinda Isaac APRN, C.N.P. Empyema Pleural (HCC) (Primary Dx) 07/24/2024 Results Follow-Up Department of Community Internal Medicine in [place] [address] [place] [address] Prudence Mena MPAS, P.A.-C. 07/24/2024 9:03 AM RELIGIOUS LEADER - 07/24/2024 11:59 PM RELIGIOUS LEADER Hospital Encounter Department of Laboratory Medicine in [address] [phone] Melinda Cohen MPAS, P.A.-C., M.S. Prison Antibiotic Treatment Discharge Disposition: Home or Self Care 07/24/2024 9:03 AM RELIGIOUS LEADER - 07/24/2024 11:59 PM RELIGIOUS LEADER Hospital Encounter Department of Radiology in [address] [address] Prudence Mena MPAS, P.A.-C. Pneumonia Discharge Disposition: Home or Self Care 07/24/2024 9:00 AM RELIGIOUS LEADER Infusion Department of Infusion Therapy in [address] [phone] Melinda Isaac APRN, C.N.P. Empyema Pleural (HCC) (Primary Dx) 07/23/2024 Clinical Communication Department of Infusion Therapy in [address] [phone] Tita Bell R.N. Reschedule 07/23/2024 9:00 AM RELIGIOUS LEADER Infusion Department of Infusion Therapy in [address] [phone] Melinda Isaac APRN C.N.P. Empyema Pleural (HCC) (Primary Dx) 07/22/2024 Clinical Communication Department of Community Internal Medicine in [address] [phone] Rosalva Galeano [facility] Follow-[facility] (Completed - DC'd 07/20/24 @ 1016) 07/22/2024 Patient Outreach Section of Infectious Diseases in [place], [place] [address] [place] [address] Sneha Barrett Care Coordination 07/22/2024 Results Follow-Up Department of Community Internal Medicine in [address] [phone] Prudence Mena MPAS, P.A.-C. 07/22/2024 9:00 AM RELIGIOUS LEADER Infusion Department of Infusion Therapy in [address] [address] Melinda Isaac APRN, C.N.P. Empyema Pleural (HCC) (Primary Dx) 07/21/2024 9:00 AM RELIGIOUS LEADER Infusion Department of Infusion Therapy in [address] [address] Melinda Isaac APRN, C.N.P. Empyema Pleural (HCC) (Primary Dx); Pneumonia 07/13/2024 7:53 PM RELIGIOUS LEADER - 07/20/2024 10:16 AM RELIGIOUS LEADER Hospital Encounter [facility], Tenth Floor [address] [place] [phone] Patrick Mtz M.D., Ph.D. Empyema Pleural (HCC) (Primary Dx) Discharge Disposition: Home or Self Care 07/19/2024 Clinical Communication Division of Thoracic Surgery in [place], [place] [address] [place] [phone] Melinda Isaac APRN, C.N.P. 07/18/2024 Clinical Communication [facility] [address] [place] [phone] Kayleigh Small M.D. Post Hospital Follow-up 07/15/2024 12:57 PM RELIGIOUS LEADER Anesthesia Event [facility] [address] [place] [phone] Lanre Hayward M.D. Aroldo Johnson, R.N. 07/15/2024 1:10 PM RELIGIOUS LEADER - 07/15/2024 4:33 PM RELIGIOUS LEADER Surgery [facility] [address] [place] [phone] Patrcik Mtz M.D., Ph.D. ROBOTIC THORACOSCOPY, DECORTICATION, PLEURODESIS, PROCEED INDICATED. 07/13/2024 Intake [facility] 07/11/2024 Clinical Communication Department of Community Internal Medicine in [address] [phone] Prudence Mena MPAS, P.A.-C. 07/11/2024 Orders Only Department of Community Internal Medicine in [address] [phone] Prudence Mena MPAS, P.A.-C. Pneumonia (Primary Dx) 07/11/2024 11:17 AM RELIGIOUS LEADER - 07/11/2024 11:59 PM RELIGIOUS LEADER Hospital Encounter Department of Radiology in [address] [phone] Prudence Mena MPAS, P.A.-C. Pneumonia Discharge Disposition: Home or Self Care 07/11/2024 11:07 AM RELIGIOUS LEADER Hospital Encounter Department of Laboratory Medicine in [address] [phone] Prudence Mena MPAS, P.A.-C. Blood In Stool Discharge Disposition: Home or Self Care 07/11/2024 11:08 AM RELIGIOUS LEADER - 07/11/2024 11:16 AM RELIGIOUS LEADER Hospital Encounter Department of Laboratory Medicine in [address] [address] Prudence Mena MPAS, P.A.-C. Pneumonia Discharge Disposition: Home or Self Care 07/11/2024 10:40 AM RELIGIOUS LEADER Office Visit Department of Community Internal Medicine in [address] [phone] Prudence Mena MPAS, P.A.-C. Hypokalemia (Primary Dx); Pneumonia; Effusion Pleural; Blood In Stool 06/11/2024 3:30 PM RELIGIOUS LEADER Office Visit Department of Family Medicine, [facility], in [address] [phone] Kaley Jones APRN, C.N.P., D.N.P. Infection Upper Respiratory (Primary Dx) 06/11/2024 Nurse Triage Department of Community Internal Medicine in [address] [phone] Eduardo Ding, R.N. Cough from Last 3 [...] (six) hours as needed for pain. 08/13/19 Active traZODone (DESYREL) 50 mg tablet TAKE 1-4 TABLETS BY MOUTH ONCE DAILY AT BEDTIME. 10/14/19 Active estradioL (ESTRACE) 0.1 mg/g (0.01%) vaginal cream Insert 1 g into the vagina 3 (three) times a week. Nightly for first week. 42 g 3 04/15/20 Active multivitamin capsule Take 1 capsule by [...] mL (8 ounces) of beverage. 850 g 03/15/20 Active elagolix (Orilissa) 150 mg tablet tablet Take 1 tablet (150 mg total) by mouth daily. 30 tablet 11 03/15/20 Active DULoxetine (CYMBALTA) [address] capsule Take 60 mg by mouth every morning. 03/31/20 Active nitrofurantoi n (MACRODANTIN) 50 mg capsule TAKE ONE CAPSULE BY MOUTH ONE TIME DAILY 90 capsule 04/21/20 Active dextroampheta mine-amphetam ine (ADDERALL) 10 mg [...] muscle spasms. 45 tablet 5 10:13 AM RELIGIOUS LEADER 07/19/19 25 Active metroNIDAZOLE (FlagyL) 500 mg tabletIndicat ions:Empyema Take 1 tablet (500 mg total) by mouth 3 (three) times a day for 17 days Indications: Empyema. 51 tablet 5 10:13 AM RELIGIOUS LEADER 07/19/19 25 025 Active sennosides (senna) 8.6 mg tablet Take 2 tablets (17.2 mg total) by mouth daily. 07/20/19 25 Active cefTRIAXone in dextrose, iso osm, (Rocephin) 2 gram/50 mL IVBPIndicatio ns:Empyema Pleural (HCC) Infuse 50 mL (2 g total) into a venous catheter daily for 17 days. Geronimo ITC 07/19/19 25 025 Active ibuprofen 400 mg tablet Take 1 tablet (400 mg total) by mouth every 6 (six) hours as needed for moderate pain or score 4-6 of 10 or severe pain or score 7-10 of 10 for up to 3 days. 12 tablet 07/20/19 25 Active oxyCODONE (Roxicodone) 5 mg immediate release [...] pain) Indication: Acute Pain Exception. 28 tablet 10:13 AM RELIGIOUS LEADER 07/19/19 25 025 Discontinued(R eorder) ibuprofen 400 [...] for Sleep Medicine consult October 2023 in [place]. I have reordered her a consult as [...] 12/03/2021 Overview (09/03/2023): Follows with Psychiatry in [place]. Attends therapy in [place]. Attention Deficit With Hyperactivity Disorder Overview (09/03/2023): Follows with Psychiatry in [place]. Attends therapy in [place]. Major Depressive Disorder, Recurrent, Unspecifie d 12/03/2021 Overview (09/03/2023): Follows with Psychiatry in [place]. Attends therapy in [place]. Headache Unspecified 07/03/2019 Fracture Fifth Metacarpal Ba [...] Initial 11/30/2017 Sleep Disorder 10/30/2017 09/04/2023 Immunizations Immunization Administration Dates Next Due Influenza, [...] = 0.6 oz pur e alcohol) socially [employer] Answer Date Recorded In the past 12 months has e Sols, gas, oil, or water [employer] threatened to shut off services in your [...] Never 07/27/2022 How often do you attend jehovah's witness or orthodox serv ices? Never 07/27/2022 Do you belong to any clubs o r organizations such as jehovah's witness groups, unions, fraternal or athletic groups, or [...] Answer Date Recorded PHQ-2 Score 6 07/10/2024 [facility] - [...] Comments Blood Pressure 138/86 07/28/2024 9:13 AM RELIGIOUS LEADER Pulse 112 07/28/2024 9:13 AM RELIGIOUS LEADER Temperature 35.5 C (95.9 F) 07/28/2024 9:13 AM RELIGIOUS LEADER Respiratory Rate 18 07/28/2024 9:13 AM RELIGIOUS LEADER Oxygen Saturation 94% 07/28/2024 9:13 AM RELIGIOUS LEADER Inhaled Oxygen Concentration - - Weight 99.7 kg (219 lb 12.8 oz) 07/17/2024 7:14 PM RELIGIOUS LEADER Height 163 cm (5' 4.17) 07/17/2024 3:00 PM RELIGIOUS LEADER Body Mass Index 37.53 07/17/2024 3:00 PM RELIGIOUS LEADER Plan of Treatment Upcoming Encounters Date Type Department Care Team (Late st Contact Info) Description 07/29/2024 10:00 AM RELIGIOUS LEADER Infusion Department of Infusion Therapy in [address] [phone] Melinda Isaac, FRED, C.N.P. [address] [place] [phone] 07/29/2024 2:20 PM RELIGIOUS LEADER Office Visit Department of Community Internal Medicine in [place], [place] [address] [facility] [place] [phone] Prudence Mena MPAS, P.A.-C. [address] [place] [address] 07/30/2024 9:00 AM RELIGIOUS LEADER Infusion Department of Infusion Therapy in [address] [address] Melinda Isaac APRN, C.N.P. [address] [place] [phone] 07/31/2024 8:00 AM RELIGIOUS LEADER Infusion Department of Infusion Therapy in [address] [address] Melinda Isaac APRN, C.N.P. [address] [place] [phone] 08/01/2024 7:00 AM RELIGIOUS LEADER Infusion Department of Infusion Therapy in [address] [phone] Melinda Isaac APRN, C.N.P. [address] [place] [phone] 08/02/2024 9:00 AM RELIGIOUS LEADER Infusion Department of Infusion Therapy in [address] [phone] Melinda Isaac APRN, C.N.P. [address] [place] [phone] 08/02/2024 12:30 PM RELIGIOUS LEADER Clinical Communication Virtual Review in [place], [place] [address] [place] [address] 08/03/2024 9:00 AM RELIGIOUS LEADER Infusion Department of Infusion Therapy in [address] [phone] Melinda Isaac APRN, C.N.P. [address] [place] [phone] 08/04/2024 9:00 AM RELIGIOUS LEADER Infusion Department of Infusion Therapy in [address] [phone] Melinda Isaac APRN, C.N.P. [address] [place] [phone] 08/05/2024 8:45 AM RELIGIOUS LEADER Appointment Department of Radiology, [facility], in [place], [place] [address] [place] [phone] Kayleigh Small M.D. [address] [place] [phone] 08/05/2024 9:00 AM RELIGIOUS LEADER Infusion Department of Infusion Therapy in [address] [phone] Melinda Isaac APRN, C.N.P. [address] [place] [phone] 08/05/2024 11:00 AM RELIGIOUS LEADER Office Visit Section of Infectious Diseases in [place], [place] [address] [place] [phone] Kayleigh Small M.D. [address] [place] [phone] 08/06/2024 9:00 AM RELIGIOUS LEADER Infusion Department of Infusion Therapy in [address] [phone] Melinda Isaac APRN, C.N.P. [address] [place] [phone] 08/07/2024 9:00 AM RELIGIOUS LEADER Infusion Department of Infusion Therapy in [address] [phone] Melinda Isaac APRN, C.N.P. [address] [place] [phone] 08/08/2024 9:00 AM RELIGIOUS LEADER Infusion Department of Infusion Therapy in [address] [address] Melinda Isaac APRN, C.N.P. [address] [place] [phone] 08/09/2024 9:00 AM RELIGIOUS LEADER Infusion Department of Infusion Therapy in [address] [phone] Melinda Isaac APRN, C.N.P. [address] [place] [phone] 08/10/2024 9:00 AM RELIGIOUS LEADER Infusion Department of Infusion Therapy in [address] [address] Meilnda Isaac APRN, C.N.P. [address] [place] [phone] 08/11/2024 9:00 AM RELIGIOUS LEADER Infusion Department of Infusion Therapy in [address] [phone] Melinda Isaac APRN, C.N.P. [address] [place] [phone] 08/12/2024 9:00 AM RELIGIOUS LEADER Infusion Department of Infusion Therapy in [address] [address] Melinda Isaac APRN, C.N.P. [address] [place] [phone] 08/13/2024 8:30 AM RELIGIOUS LEADER Infusion Department of Infusion Therapy in [address] [phone] Melinda Isaac APRN, C.N.P. [address] [place] [phone] 08/14/2024 9:00 AM RELIGIOUS LEADER Infusion Department of Infusion Therapy in [address] [address] Melinda Isaac APRN, C.N.P. [address] [place] [phone] 08/15/2024 9:00 AM RELIGIOUS LEADER Infusion Department of Infusion Therapy in [address] [phone] Melinda Isaac APRN, C.N.P. [address] [place] [phone] 08/16/2024 9:00 AM RELIGIOUS LEADER Infusion Department of Infusion Therapy in [address] [phone] Melinda Isaac APRN, C.N.P. [address] [place] [phone] 08/17/2024 9:00 AM RELIGIOUS LEADER Infusion Department of Infusion Therapy in [address] [address] Melinda Isaac APRN, C.N.P. [address] [place] [phone] 08/18/2024 9:00 AM RELIGIOUS LEADER Infusion Department of Infusion Therapy in [address] [phone] Melinda Isaac APRN, C.N.P. [address] [place] [phone] Procedures Procedure Name Priority Date/Time Associated Diagnosis Comments CT CHEST ANGIOGRAM AND PULMONARY ARTERIES WITH IV CONTRAST RAD - Semiurgent (Fast; most ED patients; some inpatients) 07/26/2024 10:37 AM RELIGIOUS LEADER DX CHEST AP OR PA AND LATERAL 2 VIEWS RAD - Semiurgent (Fast; most ED patients; some inpatients) 07/26/2024 9:54 AM RELIGIOUS LEADER BASIC METABOLIC PANEL, S/P STAT 07/26/2024 9:44 AM RELIGIOUS LEADER SEDIMENTATION RATE, B STAT 07/26/2024 9:44 AM RELIGIOUS LEADER C-REACTIVE PROTEIN (CRP), S/P STAT 07/26/2024 9:44 AM RELIGIOUS LEADER CBC WITH DIFFERENTIAL, B STAT 07/26/2024 9:[address] CHEST WITH IV CONTRAST RAD - Routine (most inpatients and all outpatients) 07/24/2024 10:24 AM RELIGIOUS LEADER Pneumonia ALKALINE PHOSPHATASE, S/P Routine 07/24/2024 10:02 AM RELIGIOUS LEADER Prison Antibiotic Treatment ALANINE AMINOTRANSFERASE (ALT), S/P Routine 07/24/2024 10:02 AM RELIGIOUS LEADER Php Software Engineer Antibiotic Treatment CREATININE WITH EGFR, S/P Routine 07/24/2024 10:02 AM RELIGIOUS LEADER Php Software Engineer Antibiotic Treatment CBC WITH DIFFERENTIAL, B Routine 07/24/2024 10:02 AM RELIGIOUS LEADER Prison Antibiotic Treatment BASIC METABOLIC PANEL, S/P Routine 07/21/2024 9:24 AM RELIGIOUS LEADER Pneumonia CBC WITH DIFFERENTIAL, B Routine 07/21/2024 9:24 AM RELIGIOUS LEADER Pneumonia DX CHEST AP OR PA AND LATERAL 2 VIEWS RAD - Routine (most inpatients and all outpatients) 07/19/2024 1:04 PM RELIGIOUS LEADER NOCTURNAL OXYGEN STUDY - RT Routine 07/19/2024 12:24 PM RELIGIOUS LEADER DX CHEST AP OR PA AND LATERAL 2 VIEWS RAD - Routine (most inpatients and all outpatients) 07/19/2024 9:10 AM RELIGIOUS LEADER ADULT OXYGEN THERAPY Routine 07/19/2024 8:01 AM RELIGIOUS LEADER BASIC METABOLIC PANEL, S/P Routine 07/19/2024 6:02 AM RELIGIOUS LEADER CBC WITHOUT DIFFERENTIAL, B Routine 07/19/2024 6:[address] PERIPHERALLY INSERTED CENTRAL CATHETER (PICC) Routine 07/18/2024 8:43 PM RELIGIOUS LEADER ADULT OXYGEN THERAPY Routine 07/18/2024 8:01 PM RELIGIOUS LEADER DX CHEST AP OR PA AND LATERAL 2 VIEWS RAD - Routine (most inpatients and all outpatients) 07/18/2024 10:15 AM RELIGIOUS LEADER ADULT OXYGEN THERAPY Routine 07/18/2024 8:00 AM RELIGIOUS LEADER ADULT OXYGEN THERAPY Routine 07/17/2024 8:01 PM RELIGIOUS LEADER HIV-1/-2 AG AND AB SCREEN, PLASMA Routine 07/17/2024 5:05 PM RELIGIOUS LEADER ADULT OXYGEN THERAPY Routine 07/17/2024 8:01 AM RELIGIOUS LEADER ADULT OXYGEN THERAPY Routine 07/16/2024 8:01 PM RELIGIOUS LEADER RESPIRATORY ASSESS AND TREAT Routine 07/16/2024 2:00 PM RELIGIOUS LEADER VANCOMYCIN, TROUGH, S Timed 07/16/2024 10:31 AM RELIGIOUS LEADER ADULT OXYGEN THERAPY Routine 07/16/2024 8:01 AM RELIGIOUS LEADER ADULT OXYGEN THERAPY Routine 07/15/2024 8:01 PM RELIGIOUS LEADER ADULT OXYGEN THERAPY Routine 07/15/2024 6:49 PM RELIGIOUS LEADER ADULT OXYGEN THERAPY Routine 07/15/2024 6:49 PM RELIGIOUS LEADER ADULT OXYGEN THERAPY Routine 07/15/2024 6:49 PM RELIGIOUS LEADER DX CHEST 1 VIEW RAD - Routine (most inpatients and all outpatients) 07/15/2024 4:51 PM RELIGIOUS LEADER BACTERIAL CULTURE, AEROBIC + SUSC Routine 07/15/2024 4:00 PM RELIGIOUS LEADER Empyema Pleural (HCC) ACTINOMYCES CULTURE Routine 07/15/2024 4 :00 PM RELIGIOUS LEADER Empyema Pleural (HCC) MYCOBACTERIAL CULTURE, V Routine 07/15/2024 4:00 PM RELIGIOUS LEADER Empyema Pleural (HCC) FUNGAL SMEAR Routine 07/15/2024 4:00 PM RELIGIOUS LEADER Empyema Pleural (HCC) LEGIONELLA CULTURE Routine 07/15/2024 4: 00 PM RELIGIOUS LEADER Empyema Pleural (HCC) ACID FAST SMEAR FOR MYCOBACTERIUM Routine 07/15/2024 4:00 PM RELIGIOUS LEADER Empyema Pleural (HCC) GRAM STAIN Routine 07/15/2024 4:00 PM RELIGIOUS LEADER Empyema Pleural (HCC) FUNGAL CULTURE, ROUTINE Routine 07/15/2024 4:00 PM RELIGIOUS LEADER Empyema Pleural (HCC) BACTERIAL CULTURE, ANAEROBIC + SUSC Routine 07/15/2024 4:00 PM RELIGIOUS LEADER Empyema Pleural (HCC) BACTERIAL CULTURE, AEROBIC + SUSC Routine 07/15/2024 2:24 PM RELIGIOUS LEADER Empyema Pleural (HCC) MYCOBACTERIAL CULTURE, V Routine 07/15/2024 2:24 PM RELIGIOUS LEADER Empyema Pleural (HCC) FUNGAL SMEAR Routine 07/15/2024 2:24 PM RELIGIOUS LEADER Empyema Pleural (HCC) ACID FAST SMEAR FOR MYCOBACTERIUM Routine 07/15/2024 2:24 PM RELIGIOUS LEADER Empyema Pleural (HCC) GRAM STAIN Routine 07/15/2024 2:24 PM RELIGIOUS LEADER Empyema Pleural (HCC) FUNGAL CULTURE, ROUTINE Routine 07/15/2024 2:24 PM RELIGIOUS LEADER Empyema Pleural (HCC) LDA ANE ARTERIAL LINE INSERTION Routine 07/15/2024 1:31 PM RELIGIOUS LEADER KS ARTL CATH/CNULA MONITOR PERC Routine 07/15/2024 1:31 PM RELIGIOUS LEADER LDA ANE ENDOTRACHEAL AIRWAY Routine 07/15/2024 1:17 PM RELIGIOUS LEADER THORACOSCOPY - DECORTICATION 07/15/2024 12:32 PM RELIGIOUS LEADER Empyema Pleural (HCC) TYPE AND SCREEN STAT 07/15/2024 7:50 AM RELIGIOUS LEADER MRSA/STAPHYLOCOCCUS AUREUS, NASAL, BY PCR Routine 07/14/2024 10:39 AM RELIGIOUS LEADER BASIC METABOLIC PANEL, S/P Routine 07/14/2024 4:09 AM RELIGIOUS LEADER DX CHEST PORTABLE 1 VIEW RAD - Routine (most inpatients and all outpatients) 07/13/2024 9:07 PM RELIGIOUS LEADER CBC WITHOUT DIFFERENTIAL, B Routine 07/13/2024 8:14 PM RELIGIOUS LEADER OUTSIDE DX CHEST Routine 07/13/2024 8:40 AM RELIGIOUS LEADER OUTSIDE CT BODY Routine 07/13/2024 12:05 AM RELIGIOUS LEADER DX CHEST AP OR PA AND LATERAL 2 VIEWS RAD - Routine (most inpatients and all outpatients) 07/11/2024 11:26 AM RELIGIOUS LEADER Pneumonia BASIC METABOLIC PANEL, S/P Routine 07/11/2024 11:17 AM RELIGIOUS LEADER Pneumonia CBC WITH DIFFERENTIAL, B Routine 07/11/2024 11:17 AM RELIGIOUS LEADER Pneumonia OUTSIDE CT BODY Routine 06/30/2024 11:45 AM RELIGIOUS LEADER OUTSIDE DX CHEST Routine 06/30/2024 10:05 AM RELIGIOUS LEADER OUTSIDE DX CHEST Routine 06/26/2024 2:20 PM RELIGIOUS LEADER from Last 3 Months Results * CT Chest Angiogram and Pulmonary Arteries with IV Contrast (07/26/2024 10:37 AM RELIGIOUS LEADER) Anatomical Region Laterality Modality Chest, Cardiovascular RST LO S, Thoracic ARZ LOS, Thoracic FLA LOS N/A Computed Tomography 07/26/2024 10:4 2 AM RELIGIOUS LEADER Impressions 07/26/2024 10:46 AM RELIGIOUS LEADER 1. Negative for acute pulmonary embolism. 2. Similar findings of multifocal pneumonia. 3. Stable small left pleural effusion. Narrative 07/26/2024 10:46 AM RELIGIOUS LEADER EXAM: CT CHEST ANGIOGRAM AND PULMONARY ARTERIES [...] and Lateral 2 Views (07/26/2024 9:54 AM RELIGIOUS LEADER) Only the most recent of5 resultswithin the time period is included. Anatomical Region Laterality Modality Chest, Thoracic RST LOS, Tho racic ARZ LOS, Thoracic FLA LOS N/A Digital Radiography Impressions 07/26/2024 9:59 AM RELIGIOUS LEADER Right upper extremity PICC with tip projected over the right atrium. Small left pleural effusion, similar to prior. Scattered linear scarring/atelectasis. The groundglass and tree-in-bud opacities seen on prior CT are not well seen within the limits of radiography. July 24, 2024 and July 19, 2024 comparisons. Narrative 07/26/2024 9:59 AM RELIGIOUS LEADER EXAM: DX CHEST AP OR PA AND [...] * (ABNORMAL) Sedimentation Rate (07/26/2024 9:44 AM RELIGIOUS LEADER) Pathologist [facility] Sedimentation Rate, B 102(H) 0 - 29 mm/1 h 07/26/2024 1:33 PM RELIGIOUS LEADER RDWG Blood (Blood, Venous) 07/26/2024 9:44 AM RELIGIOUS LEADER 07/26/2024 12:52 PM RELIGIOUS LEADER Dilcia Valero APRN, C.N.P. LAB BLOOD ADD-ON Final Result [facility] [address] [place] [address], [facility] RDWG [facility] [place] [address] [place] [address] * (ABNORMAL) CBC with Differential, Blood (07/26/2024 9:44 AM RELIGIOUS LEADER) Only the most recent of4 resultswithin the time period is included. Hemoglobin 9.8(L) 11.6 - 15.0 g/dL 07/26/2024 9:55 AM RELIGIOUS LEADER CNFL Hematocrit 31.4(L) 35.5 - 44.9 % 07/26/2024 9:55 AM RELIGIOUS LEADER CNFL Erythrocytes 3.55(L) 3.92 - 5.13 x10(12)/L 07/26/2024 9:55 AM RELIGIOUS LEADER CNFL MCV 88.5 78.2 - 97.9 fL 07/26/2024 9:55 AM RELIGIOUS LEADER CNFL RBC Distrib Width 15.4 12.2 - 16.1 % 07/26/2024 9:55 AM RELIGIOUS LEADER CNFL Platelet Count 792(H) 157 - 371 x10(9)/L 07/26/2024 9:55 AM RELIGIOUS LEADER CNFL Leukocytes 11.1(H) 3.4 - 9.6 x10(9)/L 07/26/2024 9:55 AM RELIGIOUS LEADER CNFL Neutrophils 8.16(H) 1.56 - 6.45 x10(9)/L 07/26/2024 9:55 AM RELIGIOUS LEADER CNFL Lymphocytes 1.74 0.95 - 3.07 x10(9)/L 07/26/2024 9:55 AM RELIGIOUS LEADER CNFL Monocytes 0.79 0.26 - 0.81 x10(9)/L 07/26/2024 9:55 AM RELIGIOUS LEADER CNFL Eosinophils 0.36 0.03 - 0.48 x10(9)/L 07/26/2024 9:55 AM RELIGIOUS LEADER CNFL Basophils 0.07 0.01 - 0.08 x10(9)/L 07/26/2024 9:55 AM RELIGIOUS LEADER CNFL Blood (Blood, Venous) 07/26/2024 9:44 AM RELIGIOUS LEADER 07/26/2024 9:48 AM RELIGIOUS LEADER us Dilcia Valero APRN, C.N.P. LAB BLOOD ADD-ON Final Result Performing Organization Address City/State/[facility] Co de Phone Number [facility] [address] [place] [id number], [facility] CN[facility] in [address] [address] * (ABNORMAL) CRP (C-Reactive Protein) (07/26/2024 9:44 AM RELIGIOUS LEADER) Pathologist [facility] C-Reactive Protein (CRP), P 43.3(H) <5.0 mg/L 07/26/2024 10:15 AM RELIGIOUS LEADER CNFL Blood (Blood, Venous) 07/26/2024 9:44 AM RELIGIOUS LEADER 07/26/2024 9:48 AM RELIGIOUS LEADER us Dilcia Valero APRN, C.N.P. LAB BLOOD ADD-ON Final Result Performing Organization Address [facility]/State/ZIP Co de Phone Number [facility] [address] [place] [address], [facility] CNFL [facility] in [address] [address] * Basic Metabolic Panel (07/26/2024 9:44 AM RELIGIOUS LEADER) Only the most recent of5 resultswithin the time period is included. Potassium, P 3.9 3.6 - 5.2 mmol/L 07/26/2024 10:15 AM RELIGIOUS LEADER CNFL Sodium, P 141 135 - 145 mmol/L 07/26/2024 10:15 AM RELIGIOUS LEADER CNFL Chloride, P 105 98 - 107 mmol/L 07/26/2024 10:15 AM RELIGIOUS LEADER CNFL Bicarbonate, P 25 22 - 29 mmol/L 07/26/2024 10:15 AM RELIGIOUS LEADER CNFL Anion Gap, P 11 7 - 15 07/26/2024 10:15 AM RELIGIOUS LEADER CNFL BUN (Blood Urea Nitrogen), P 10 6 - 21 mg/dL 07/26/2024 10:15 AM RELIGIOUS LEADER CNFL Creatinine 0.62 0.59 - 1.04 mg/dL 07/26/2024 10:15 AM RELIGIOUS LEADER CNFL Estimated GFR (eGFR) >90 >=60 mL/min/BSA 07/26/2024 10:15 AM RELIGIOUS LEADER CNFL Comment: Estimated GFR calculated using the 2020 CKD_EPI creatinine equation. Calcium, Total, P 8.8 8.6 - 10.0 mg/dL 07/26/2024 10:15 AM RELIGIOUS LEADER CNFL Glucose, P 122 70 - 140 mg/dL 07/26/2024 10:15 AM RELIGIOUS LEADER CNFL Blood (Blood, Venous) 07/26/2024 9:44 AM RELIGIOUS LEADER 07/26/2024 9:48 AM RELIGIOUS LEADER us Dilcia Valero APRN, C.N.P. LAB BLOOD ADD-ON Final Result [facility] [address] [place] [address], [facility] CNFL [facility] in [address] [place] [address] * CT Chest with IV Contrast (07/24/2024 10:24 AM RELIGIOUS LEADER) Anatomical Region Laterality Modality Chest, Thoracic RST LOS, Tho racic ARZ LOS, Thoracic ARZ LOS, Thoracic FLA LOS N/A Computed Tomography 07/24/2024 10:2 2 AM RELIGIOUS LEADER Impressions 07/24/2024 11:16 AM RELIGIOUS LEADER Pneumonia and small left pleural effusion. Narrative 07/24/2024 11:16 AM RELIGIOUS LEADER EXAM: CT CHEST WITH IV CONTRAST COMPARISON: [...] IMPRESSION: Pneumonia and small left pleural effusion. us Prudence TO, P.A.-C. IMG CT PROCEDURES Final Result * ALT (Alanine Aminotransferase) (07/24/2024 10:02 AM RELIGIOUS LEADER) Alanine Aminotransferase (ALT), P 21 7 - 45 U/L 07/24/2024 10:24 AM RELIGIOUS LEADER CNFL Blood (Blood, PICC) 07/24/2024 10:02 AM RELIGIOUS LEADER 07/24/2024 10:07 AM RELIGIOUS LEADER us Melinda TO P.A.-C., M.S. LAB [place] [address], [place] [address] * Alkaline Phosphatase (07/24/2024 10:02 AM RELIGIOUS LEADER) Alkaline Phosphatase, P 86 35 - 104 U/L 07/24/2024 10:24 AM RELIGIOUS LEADER CNFL Blood (Blood, PICC) 07/24/2024 10:02 AM RELIGIOUS LEADER 07/24/2024 10:07 AM RELIGIOUS LEADER us Melinda TO P.A.-C., M.S. LAB [place] [address], [place] [address] * Creatinine with Estimated GFR (07/24/2024 10:02 AM RELIGIOUS LEADER) Creatinine 0.60 0.59 - 1.04 mg/dL 07/24/2024 10:24 AM RELIGIOUS LEADER CNFL Estimated GFR (eGFR) >90 >=60 mL/min/BSA 07/24/2024 10:24 AM RELIGIOUS LEADER CNFL Comment: Estimated GFR calculated using the 2020 CKD_EPI creatinine equation. Blood (Blood, PICC) 07/24/2024 10:02 AM RELIGIOUS LEADER 07/24/2024 10:07 AM RELIGIOUS LEADER us Melinda TO, PDmitryA.-C., M.S. LAB BLOOD ADD-ON Final Result [facility] [address] [place] [address], [facility] CNFL [facility] in [address] [address] * (ABNORMAL) CBC without Differential (07/19/2024 6:02 AM RELIGIOUS LEADER) Only the most recent of2 resultswithin the time period is included. Hemoglobin 7.6(L) 11.6 - 15.0 g/dL 07/19/2024 6:38 AM RELIGIOUS LEADER DTL Hematocrit 24.1(L) 35.5 - 44.9 % 07/19/2024 6:38 AM RELIGIOUS LEADER DTL Erythrocytes 2.67(L) 3.92 - 5.13 x10(12)/L 07/19/2024 6:38 AM RELIGIOUS LEADER DTL MCV 90.3 78.2 - 97.9 fL 07/19/2024 6:38 AM RELIGIOUS LEADER DTL RBC Distrib Width 15.6 12.2 - 16.1 % 07/19/2024 6:38 AM RELIGIOUS LEADER DTL Platelet Count 478(H) 157 - 371 x10(9)/L 07/19/2024 6:38 AM RELIGIOUS LEADER DTL Leukocytes 9.8(H) 3.4 - 9.6 x10(9)/L 07/19/2024 6:38 AM RELIGIOUS LEADER DTL Blood (Blood, Venous) 07/19/2024 6:02 AM RELIGIOUS LEADER 07/19/2024 6:26 AM RELIGIOUS LEADER us Lopez Garvey M.D. LAB BLOOD ADD-ON Final Resul t [facility] [address] [place], [place] [address] [facility] [employer] [facility] [address] [place] [address] * Place peripherally inserted central catheter (PICC) (07/18/2024 8:43 PM RELIGIOUS LEADER) Narrative MMODAL - 07/18/2024 8:43 PM RELIGIOUS LEADER Rayo Finch R.N. 07/18/2024 9:[address] peripherally inserted central catheter (PICC) Performed by: Rayo Finch R.N. Authorized by: Eveline Mariscal PDmitryAOnur Care team members present 1. Rayo Finch [...] with ultrasound and measured to ensure appropriate aztsnxip-mo-hpjx ratio of 45% or less: Right Basilic [...] to release the adhesive from the skin. http://[employer]products/secureportiv us Eveline Mariscal P.A.-C. PROCEDURE/MINOR SURGICAL ORDERABLES Final Result Performing Organization Address City/[facility] Co de Phone Number MMODAL NA * HIV-1/-2 Ag and Ab Screen, Plasma (07/17/2024 5:05 PM RELIGIOUS LEADER) [facility] HIV-1/-2 Ag and Ab Screen, P Negative Negative 07/17/2024 8:57 PM RELIGIOUS LEADER [facility] Comment: Negative result does not rule out HIV infection. If exposure to HIV infection occurred <14 days ago, contact the laboratory to request addition of HIV-1/HIV-2 RNA detection, Plasma (HIP12). Blood (Blood, Venous) 07/17/2024 5:05 PM RELIGIOUS LEADER 07/17/2024 7:55 PM RELIGIOUS LEADER Shahram Abernathy APRN, C.N .P., M.S. LAB MICROBIOLOGY - BLOOD ORDERABLES Final Result Performing Organization Address City/[facility]/ZIP Co de Phone Number [facility] [address] [place] [address] [facility] [address] [place] [address] * (ABNORMAL) Vancomycin, Trough (07/16/2024 10:31 AM RELIGIOUS LEADER) Vancomycin, Trough, S 8.9(L) 10.0 - 20.0 mcg/mL 07/16/2024 12:10 PM RELIGIOUS LEADER DTL Blood (Blood, Venous) 07/16/2024 10:31 AM RELIGIOUS LEADER 07/16/2024 10:52 AM RELIGIOUS LEADER us Patrick Mtz M.D., Ph.D. LAB BLOOD NON ADD-ON Fi nal Result [facility] [address] [place] [address], [facility] [address] [place] [address] * DX Chest 1 View (07/15/2024 4:51 PM RELIGIOUS LEADER) Anatomical Region Laterality Modality Chest, Thoracic RST LOS, Tho racic ARZ LOS, Thoracic FLA LOS N/A Digital Radiography Impressions 07/15/2024 4:59 PM RELIGIOUS LEADER Negative for postoperative purposes. Left thoracotomy with 2 left chest tubes. Small left-sided pneumothorax. New left perihilar consolidation/atelectasis since 07/13/2024. Increased bibasilar consolidation/atelectasis. Very low lung volumes accentuate heart size and bronchovascular markings. Narrative 07/15/2024 4:59 PM RELIGIOUS LEADER EXAM: DX CHEST 1 VIEW Procedure Note [...] Culture, Aerobic + Susceptibility (07/15/2024 4:00 PM RELIGIOUS LEADER) Only the most recent of2 resultswithin the time period is included. Bacterial Culture, Aerobic + Susc No growth after 5 days of incubation. 07/20/2024 7:42 AM RELIGIOUS LEADER DTL Tissue (Pleura, Left) 07/15/2024 4:00 PM RELIGIOUS LEADER us Patrick Mtz M.D., Ph.D. LAB MICROBIOLOGY - GENE RAL ORDERABLES Final Result Performing Organization Address City/[facility] Co de Phone Number [facility] [address] [place] [address] * Fungal Smear (07/15/2024 4:00 PM RELIGIOUS LEADER) Only the most recent of2 resultswithin the time period is included. Fungal Smear Negative. 07/16/2024 8:52 AM RELIGIOUS LEADER DTL Tissue (Pleura, Left) 07/15/2024 4:00 PM RELIGIOUS LEADER Result Emma Mtz M.D., Ph.D. LAB MICROBIOLOGY - GENE RAL ORDERABLES Final Result Performing Organization Address City/[facility]/ZIP Co de Phone Number [facility] [address] [place] [address], [place] [address] * Legionella Culture (07/15/2024 4:00 PM RELIGIOUS LEADER) Legionella Culture No growth of Legionella species after 7 days of incubation 07/22/2024 8:16 AM RELIGIOUS LEADER DTL Tissue (Pleura, Left) 07/15/2024 4:00 PM RELIGIOUS LEADER us Patrick Mtz M.D., Ph.D. LAB MICROBIOLOGY - GENE RAL ORDERABLES Final Result Performing Organization Address [facility] Co de Phone Number [facility] [address] [place] [address] * Acid Fast Smear for Mycobacterium (07/15/2024 4:00 PM RELIGIOUS LEADER) Only the most recent of2 resultswithin the time period is included. Acid Fast Smear For Mycobacterium Negative. 07/15/2024 10:18 PM RELIGIOUS LEADER DTL Tissue (Pleura, Left) 07/15/2024 4:00 PM RELIGIOUS LEADER Patrick Mtz M.D., Ph.D. LAB MICROBIOLOGY - GENE RAL ORDERABLES Final Result Performing Organization Address [facility] Co de Phone Number [facility] [address] [place] [address] * Gram Stain (07/15/2024 4:00 PM RELIGIOUS LEADER) Only the most recent of2 resultswithin the time period is included. Pathologist [facility] Gram Stain No organisms seen. White blood cells, Many 07/15/2024 10:18 PM RELIGIOUS LEADER DTL Tissue (Pleura, Left) 07/15/2024 4:00 PM RELIGIOUS LEADER Patrick Mtz M.D., Ph.D. LAB MICROBIOLOGY - GENE RAL ORDERABLES Final Result Performing Organization Address City/[facility] Co de Phone Number [facility] [address] [place] [address] * [place] ARTL CATH/CNULA MONITOR PERC, LDA ANE ARTERIAL LINE INSERTION (07/15/2024 1:31 PM RELIGIOUS LEADER) Narrative Sandra May, MANUAL EQUIPMENT MECHANIC, CLIENT SOLUTIONS SPECIALIST - 07/15/2024 1:31 PM RELIGIOUS LEADER Sandra May APRN, CRNA 07/15/2024 5:03 PM [...] turn: yes Notable Events - arterial: none us Lanre Hayward M.D. PROCEDURE/MINOR SURGICAL ORD ERABLES Edited Result - Final * LDA ANE ENDOTRACHEAL AIRWAY (07/15/2024 1:17 PM RELIGIOUS LEADER) Narrative Aroldo Johnson RDmitryNDmitry - 07/15/2024 1:17 PM RELIGIOUS LEADER Aroldo Johnson R.NDmitry 07/15/2024 2:03 PM Airway Date/Time: 07/15/2024 1:17 PM Performed by: Aroldo Johnson R.N. Authorized by: Jamie Kumar M.D. Patient location during procedure: OR / Procedure Area PROCEDURE DETAILS: Mask difficulty assessment: oral/nasal airway needed Final airway type: video laryngoscope Laryngeal Manipulation: no Final best view of glottic structures - Cormack/Lehane Score: grade 1 ETT location: oral VL device: glide scope [place] scope blade size: 3 Tube size: 35 [...] DLETT would not advance through vocal folds. [place] used with single ETT then exchanged over [...] (with Reflex Antibody ID) (07/15/2024 7:50 AM RELIGIOUS LEADER) Pathologist [facility] ABORh AB Pos Not applicable 07/15/2024 8:36 AM RELIGIOUS LEADER STRM Antibody Screen Negative Negative 07/15/2024 8:51 AM RELIGIOUS LEADER STRM Type & Screen Expiration 07/18/2024 23:59 07/15/2024 8:36 AM RELIGIOUS LEADER STRM Testing Location Sanjiv DEFAULT 07/15/2024 8:10 AM RELIGIOUS LEADER STRM Blood (Blood, Venous) 07/15/2024 7:50 AM RELIGIOUS LEADER 07/15/2024 8:10 AM RELIGIOUS LEADER us Jamie Kumar M.D. LAB BLOOD BANK TEST ORDERABLES F inal Result [facility] [address] [place] [address], [facility] [address] [place] [address] * Staph aureus / MRSA, Nasal, PCR (07/14/2024 10:39 AM RELIGIOUS LEADER) Pathologist [facility] Staphylococcus aureus, PCR Negative Negative 07/14/2024 12:55 PM RELIGIOUS LEADER DTL MRSA, PCR Negative Negative 07/14/2024 12:55 PM RELIGIOUS LEADER DTL Swab (Nares) 07/14/2024 10:3 9 AM RELIGIOUS LEADER 07/14/2024 11:06 AM RELIGIOUS LEADER us Patrick Mzt M.D., Ph.D. LAB MICROBIOLOGY - GENE RAL ORDERABLES Final Result [facility] [address] [place] [address], [facility] [address] [place] [address] * DX Chest Portable 1 View (07/13/2024 9:07 PM RELIGIOUS LEADER) Anatomical Region Laterality Modality Chest, Thoracic RST LOS, Tho racic ARZ LOS, Thoracic FLA LOS N/A Digital Radiography Impressions 07/14/2024 7:27 AM RELIGIOUS LEADER No significant change since earlier today. Bibasilar atelectasis. Small left loculated pleural effusion. Hazy opacification in the bilateral lungs, left greater than right. No discernible pneumothorax. Mildly enlarged cardiomediastinal silhouette. Narrative 07/14/2024 7:27 AM RELIGIOUS LEADER EXAM: DX CHEST PORTABLE 1 VIEW Procedure [...] chest 2V-Outside Chest Xray (07/13/2024 8:40 AM RELIGIOUS LEADER) Only the most recent of3 resultswithin the time period is included. Narrative IIMS - 07/13/2024 2:43 PM RELIGIOUS LEADER This order has been created and auto-finalized to support the import of outside images. If available, original interpretation can be found on the Media Tab in Chart Review, in Document Viewer, as an image in QREADS or as an Addendum. If a re-interpretation or overread is required please follow defined workflow. us Provider Not In System IMG DIAGNOSTIC IMAGING [place] OCEDURES Final Result Performing Organization Address City/[facility] Co de Phone Number II NA * CT Angio Chest PE Protocol-Outside CT Body (07/13/2024 12:05 AM RELIGIOUS LEADER) Only the most recent of2 resultswithin the time period is included. Narrative IIMS - 07/13/2024 2:48 PM RELIGIOUS LEADER This order has been created and auto-finalized to support the import of outside images. If available, original interpretation can be found on the Media Tab in Chart Review, in Document Viewer, as an image in [employer]S or as an Addendum. If a re-interpretation or overread is required please follow defined workflow. us Provider Not In System IMG CT PROCEDURES Final R esult Performing Organization Address City/[facility] Co de Phone Number II NA from Last 3 Months Insurance [facility] Advance Directives For more information, please contact: [phone] * Full Code (Latest Code Status on File) Date Activated Date Inactivated Comments 07/15/2024 6:49 PM 07/20/2024 12:21 PM Question Answer Comments Full Code: Discussed * Full Code Date Activated Date Inactivated Comments 07/13/2024 7:54 PM 07/15/2024 6:49 PM Question Answer Comments Full Code: Not Discussed Due to: Patient not available Care Teams Nuclear Equipment Operator Relationship Specialty Start Date End Date Prudence Mena MPAS, P.A.-C. [address] [facility] [address] PCP - General Internal Medicine 02/08/24
--- OUTSIDE RECORDS SUMMARY | 2024-07-28 21:15 | XMS_ITS | Encounter Summary ---
Author Organization [facility] Address [address] [place] [address] Care Team Providers Care Booth Cleaner Name Role Phone Prudence Mena P.A.-C. Primary Care Pro vider Reason for Visit * Reason Onset Date Comments Post Hospital Follow-up 07/22/2024 Complete d - DC'd 07/20/24 @ 1016 Encounter Details Date Type Department Care Team (Latest Contact Info) Description 07/22/2024 Clinical Communication Department of Community Internal Medicine in [place] [address] [place] [address] Rosalva Galeano, R.N. Post Hospital Follow-up (Completed - DC'd 07/20/24 @ 1016) Social History Tobacco Use Types Packs/Day Years Used Date Smoking Tobacco: Former Cigarettes 1.5 0.1 S tarted: 06/21/2024 Passive Smoke Exposure: Past Smokeless Tobacco: Never Alcohol Use Standard Drinks/Week Comments Yes 0 (1 standard drink = 0.6 oz pur e alcohol) socially [facility] Utilities Answer Date Recorded In [...] Never 07/27/2022 How often do you attend cheondoism or sikhism serv ices? Never 07/27/2022 Do you belong to any clubs o r organizations such as cheondoism groups, unions, fraternal or athletic groups, or [...] Answer Date Recorded PHQ-2 Score 6 07/10/2024 [facility] - Occupational Stress Questionnaire [...] encounter Miscellaneous Notes * Telephone Encounter - Venus Khalil - 07/22/2024 1:16 PM SENIOR FIELD ENGINEER Patient has been scheduled for 07/29 OR FIELD ENGINEER * Telephone Encounter - Rosalva Galeano R.N. - 07/22/2024 12:56 PM SENIOR FIELD ENGINEER SUBJECTIVE REASON FOR CALL Post-Hospital follow-up phone call with patient. Admission Date: 07/13/24 Discharge Date: 07/20/24 Discharge Diagnosis: Empyema Pleural (HCC). General Health Notes today that she is feeling better since discharged from the hospital. Concerns/questions: Patient has no questions or concerns. Symptom Review No new symptoms since discharge from the hospital. Activities of Daily Living Patient is independent with activities of daily living. Has the patient had a fall since discharge: no. Has ambulation changed since hospitalization: no. Difficulty ambulating: no. The patient lives alone. Patient report her mom has been staying with her since hospital discharge - she flew here from [place]. Patient identified if needing assistance, she could depend on family and friends . Wounds/Incisions/Lines, Drains and Airways Wound: thoracoscopy site. Signs or symptoms of infection: no. Wound care instructions reviewed: yes. LDA: PICC line. Signs or symptoms of infection: no. LDA care instructions reviewed: yes. Medication Status Current medication list was not reviewed and updated as needed - patient declined. Reports medication is self managed. Medications concerns: none. Medication compliance for current medications: yes. High Risk Medications Controlled Substances: Name: Roxicodone. Taking as instructed: yes. This medication was added during this hospital stay: yes. Controlled Substances: Name: Ativan, Lyrica, Adderall, and Dexedrine Spansule. Taking as instructed: yes. This medication was added during this hospital stay: no. Antibiotics: Name: Rocephin (IV) and Flagyl. Taking as instructed: yes. Home Services Utilized The patient is not currently receiving home health services. Equipment/Supplies for Home Use None ordered. Assessment/Plan Follow-up Appointment PCP Follow-up appointment scheduled: no. Will send message to scheduling - requesting Post HospitalF/U appointment with PCP/Care Team within next 7-14 days. Specialty Follow-up: Daily Rocephin Infusions - Infusion Therapy. 08/05/24 RAD. Recommendations Referral actions: care coordination - patient declined. Additional recommendations: home care instructions reinforced or provided and appointment ordered/scheduled as per TCM guidelines. Disposition/Recommendation: recommended continue engagement in self-management activities. Education: patient/caller able to teach back. Caller agreeable to plan of care: yes. Home Visit Patient meets criteria for Home/Video/Phone visit. Discussed with patient the role of the Primary Care Registered Nurse Home Visit. Patient declines additional f/u by RN. All questions answered. OR FIELD ENGINEER documented in this encounter Plan of Treatment Upcoming Encounters Date Type Department Care Team (Late st Contact Info) Description 07/29/2024 10:00 AM SENIOR FIELD ENGINEER Infusion Department of Infusion Therapy in [address] [phone] Melinda Isaac APRN, C.N.P. [address] [place] [phone] 07/29/2024 2:20 PM SENIOR FIELD ENGINEER Office Visit Department of Community Internal Medicine in [address] [phone] Prudence Mena MPAS, P.A.-C. [address] [place] [phone] 07/30/2024 9:00 AM SENIOR FIELD ENGINEER Infusion Department of Infusion Therapy in [address] [address] Melinda Isaac APRN, C.N.P. [address] [place] [phone] 07/31/2024 8:00 AM SENIOR FIELD ENGINEER Infusion Department of Infusion Therapy in [address] [phone] Melinda Isaac APRN, C.N.P. [address] [place] [phone] 08/01/2024 7:00 AM SENIOR FIELD ENGINEER Infusion Department of Infusion Therapy in [address] [phone] Melinda Isaac APRN, C.N.P. [address] [place] [phone] 08/02/2024 9:00 AM SENIOR FIELD ENGINEER Infusion Department of Infusion Therapy in [address] [phone] Melinda Isaac APRN, C.N.P. [address] [place] [phone] 08/02/2024 12:30 PM SENIOR FIELD ENGINEER Clinical Communication Virtual Review in [place], [place] [address] [place] [address] 08/03/2024 9:00 AM SENIOR FIELD ENGINEER Infusion Department of Infusion Therapy in [address] [phone] Melinda Isaac APRN, C.N.P. [address] [place] [phone] 08/04/2024 9:00 AM SENIOR FIELD ENGINEER Infusion Department of Infusion Therapy in [address] [address] Melinda Isaac APRN, C.N.P. [address] [place] [phone] 08/05/2024 8:45 AM SENIOR FIELD ENGINEER Appointment Department of Radiology, [facility], in [place], [place] [address] [place] [phone] Kayleigh Small M.D. [address] [place] [phone] 08/05/2024 9:00 AM SENIOR FIELD ENGINEER Infusion Department of Infusion Therapy in [address] [address] Melinda Isaac APRN, C.N.P. [address] [place] [phone] 08/05/2024 11:00 AM SENIOR FIELD ENGINEER Office Visit Section of Infectious Diseases in [place], [place] [address] [place] [phone] Kayleigh Small M.D. [address] [place] [phone] 08/06/2024 9:00 AM SENIOR FIELD ENGINEER Infusion Department of Infusion Therapy in [address] [address] Melinda Isaac APRN, C.N.P. [address] [place] [phone] 08/07/2024 9:00 AM SENIOR FIELD ENGINEER Infusion Department of Infusion Therapy in [address] [phone] Melinda Isaac APRN, C.N.P. [address] [place] [phone] 08/08/2024 9:00 AM SENIOR FIELD ENGINEER Infusion Department of Infusion Therapy in [address] [address] Melinda Isaac APRN, C.N.P. [address] [place] [phone] 08/09/2024 9:00 AM SENIOR FIELD ENGINEER Infusion Department of Infusion Therapy in [address] [address] Melinda Isaac APRN, C.N.P. [address] [place] [phone] 08/10/2024 9:00 AM SENIOR FIELD ENGINEER Infusion Department of Infusion Therapy in [address] [phone] Melinda Isaac APRN, C.N.P. [address] [place] [phone] 08/11/2024 9:00 AM SENIOR FIELD ENGINEER Infusion Department of Infusion Therapy in [address] [address] Melinda Isaac APRN, C.N.P. [address] [place] [phone] 08/12/2024 9:00 AM SENIOR FIELD ENGINEER Infusion Department of Infusion Therapy in [address] [address] Melinda Isaac APRN, C.N.P. [address] [place] [phone] 08/13/2024 8:30 AM SENIOR FIELD ENGINEER Infusion Department of Infusion Therapy in [address] [phone] Melinda Isaac APRN, C.N.P. [address] [place] [phone] 08/14/2024 9:00 AM SENIOR FIELD ENGINEER Infusion Department of Infusion Therapy in [address] [address] Melinda Isaac APRN, C.N.P. [address] [place] [phone] 08/15/2024 9:00 AM SENIOR FIELD ENGINEER Infusion Department of Infusion Therapy in [address] [phone] Melinda Isaac APRN, C.N.P. [address] [place] [phone] 08/16/2024 9:00 AM SENIOR FIELD ENGINEER Infusion Department of Infusion Therapy in [address] [address] Melinda Isaac APRN, C.N.P. [address] [place] [phone] 08/17/2024 9:00 AM SENIOR FIELD ENGINEER Infusion Department of Infusion Therapy in [address] [address] Melinda Isaac APRN, C.N.P. [address] [place] [phone] 08/18/2024 9:00 AM SENIOR FIELD ENGINEER Infusion Department of Infusion Therapy in [address] [phone] Melinda Isaac APRN, C.N.P. [address] [place] [phone] documented as of this encounter Visit Diagnoses Not on filedocumented in this encounter Additional Health Concerns Assessment Noted Time PHQ-9 Depression Total Score: 22 025 7:19 PM SENIOR FIELD ENGINEER documented as of this encounter Care Teams Booth Cleaner Relationship Specialty Start Date End Date Prudence Mena MPAS, P.A.-C. [address] [facility] [place] [phone] PCP - General Internal Medicine 02/08/24 documented as of this encounter
--- OUTSIDE RECORDS SUMMARY | 2024-07-28 21:15 | XMS_ITS | Encounter Summary ---
Author Organization [facility] Address [address] [place] [address] Care Team Providers Care Speech Therapist Early Intervention Name Role Phone Prudence Mena P.A.-C. Primary Care Pro vider Reason for Visit * Reason Comments Outpatient Infusion Rocephin * Outpatient (Routine) - Closed Specialty Diagnoses / Procedures Referred By Contac t Referred To Contact Diagnoses Empyema Pleural (HCC) Procedures Perform central front line supervisor: Site care, Flush port(s) Melinda Isaac APRN, C.N.P. [address] [place] [phone] Phone: tel: fax: [facility] Referral ID Status Reason Start Date Expiration Date Visits Re quested Visits Authorized [id number] Closed 07/19/2024 07/19/2025 1 1 Encounter Details Date Type Department Care Team (Late st Contact Info) Description 07/22/2024 9:00 AM CARDIAC CATH TECHNICIAN Infusion Department of Infusion Therapy in [address] [phone] Melinda Isaac APRN, C.N.P. [address] [place] [phone] Empyema Pleural (HCC) (Primary Dx) Social History Tobacco Use Types Packs/Day Years Used Date Smoking Tobacco: Former Cigarettes 1.5 0.1 S tarted: 06/21/2024 Passive Smoke Exposure: Past Smokeless Tobacco: Never Alcohol Use Standard Drinks/Week Comments Yes 0 (1 standard drink = 0.6 oz pur e alcohol) socially [facility] Utilities Answer Date Recorded In the past 12 months has th e electric, gas, oil, or water company [...] Never 07/27/2022 How often do you attend orthodox or jewish serv ices? Never 07/27/2022 Do you belong to any clubs o r organizations such as orthodox groups, unions, fraternal or athletic groups, or [...] Answer Date Recorded PHQ-2 Score 6 07/10/2024 [facility] - Occupational Stress Questionnaire Answer Date Recorded [...] Sign Reading Time Taken Comments Blood Pressure 125/82 07/22/2024 9:12 AM CARDIAC CATH TECHNICIAN Pulse 102 07/22/2024 9:12 AM CARDIAC CATH TECHNICIAN Temperature 36.2 C (97.2 F) 07/22/2024 9:12 AM CARDIAC CATH TECHNICIAN Respiratory Rate 20 07/22/2024 9:12 AM CARDIAC CATH TECHNICIAN Oxygen Saturation 96% 07/22/2024 9:12 AM CARDIAC CATH TECHNICIAN Inhaled Oxygen Concentration - - Weight - - Height - - Body Mass Index - - documented in this encounter Progress Notes * Scarlet Hawkins RDmitryN. - 07/22/2024 9:00 AM CST Melinda was here for IV Rocephin. While here, she showed me her chest tube sites. They appeared lucrecia healing, though the holes where the tubes came out of were quite open. This nurse consulted withthe hospitalist onsite who recommended to close them with steri strips and then leave them open to air. Patient and her mother are in agreement with the plan. Steri strips applied; education providedto patient and her mother and remainder of the package of steri strips were sent home for reapplication as needed over the next 7-10 days. Discharged in stable condition and patient and her mother stated feeling good about this plan. IAC CATH TECHNICIAN documented in this encounter Plan of Treatment Upcoming Encounters Date Type Department Care Team (Late st Contact Info) Description 07/29/2024 10:00 AM CARDIAC CATH TECHNICIAN Infusion Department of Infusion Therapy in [address] [phone] Melinda Isaac APRN, C.N.P. [address] [place] [address] 07/29/2024 2:20 PM CARDIAC CATH TECHNICIAN Office Visit Department of Community Internal Medicine in [place], [place] 300 [place] [phone] Prudence Mena, LATONIAS, P.A.-C. 300 [place] [phone] 07/30/2024 9:00 AM CARDIAC CATH TECHNICIAN Infusion Department of Infusion Therapy in [address] [address] Melinda Isaac APRN, C.N.P. [address] [place] [phone] 07/31/2024 8:00 AM CARDIAC CATH TECHNICIAN Infusion Department of Infusion Therapy in [address] [address] Melinda Isaac APRN, C.N.P. [address] [place] [phone] 08/01/2024 7:00 AM CARDIAC CATH TECHNICIAN Infusion Department of Infusion Therapy in [address] [phone] Melinda Isaac APRN, C.N.P. [address] [place] [phone] 08/02/2024 9:00 AM CARDIAC CATH TECHNICIAN Infusion Department of Infusion Therapy in [address] [address] Melinda Isaac APRN, C.N.P. [address] [place] [phone] 08/02/2024 12:30 PM CARDIAC CATH TECHNICIAN Clinical Communication Virtual Review in [place], [place] 200 [place] [address] 08/03/2024 9:00 AM CARDIAC CATH TECHNICIAN Infusion Department of Infusion Therapy in [address] [address] Melinda Isaac APRN, C.N.P. [address] [place] [phone] 08/04/2024 9:00 AM CARDIAC CATH TECHNICIAN Infusion Department of Infusion Therapy in [address] [address] Melinda Isaac APRN, C.N.P. [address] [place] [phone] 08/05/2024 8:45 AM CARDIAC CATH TECHNICIAN Appointment Department of Radiology, [facility], in [place], [place] [address] [place] [phone] Kayleigh Small M.D. [address] [place] [phone] 08/05/2024 9:00 AM CARDIAC CATH TECHNICIAN Infusion Department of Infusion Therapy in [address] [address] Melinda Isaac APRN, C.N.P. [address] [place] [phone] 08/05/2024 11:00 AM CARDIAC CATH TECHNICIAN Office Visit Section of Infectious Diseases in [address] [phone] Kayleigh Small M.D. [address] [place] [phone] 08/06/2024 9:00 AM CARDIAC CATH TECHNICIAN Infusion Department of Infusion Therapy in [address] [place] [address] Melinda Isaac APRN, C.N.P. [address] [place] [phone] 08/07/2024 9:00 AM CARDIAC CATH TECHNICIAN Infusion Department of Infusion Therapy in [address] [address] Melinda Isaac APRN, C.N.P. [address] [place] [phone] 08/08/2024 9:00 AM CARDIAC CATH TECHNICIAN Infusion Department of Infusion Therapy in [address] [address] Melinda Isaac APRN, C.N.P. [address] [place] [phone] 08/09/2024 9:00 AM CARDIAC CATH TECHNICIAN Infusion Department of Infusion Therapy in [address] [address] Melinda Isaac APRN, C.N.P. [address] [place] [phone] 08/10/2024 9:00 AM CARDIAC CATH TECHNICIAN Infusion Department of Infusion Therapy in [address] [address] Melinda Isaac APRN, C.N.P. [address] [place] [phone] 08/11/2024 9:00 AM CARDIAC CATH TECHNICIAN Infusion Department of Infusion Therapy in [address] [address] Melinda Isaac APRN, C.N.P. [address] [place] [phone] 08/12/2024 9:00 AM CARDIAC CATH TECHNICIAN Infusion Department of Infusion Therapy in [address] [address] Melinda Isaac APRN, C.N.P. [address] [place] [phone] 08/13/2024 8:30 AM CARDIAC CATH TECHNICIAN Infusion Department of Infusion Therapy in [address] [phone] Melinda Isaac APRN, C.N.P. [address] [place] [phone] 08/14/2024 9:00 AM CARDIAC CATH TECHNICIAN Infusion Department of Infusion Therapy in [address] [address] Melinda Isaac APRN, C.N.P. [address] [place] [phone] 08/15/2024 9:00 AM CARDIAC CATH TECHNICIAN Infusion Department of Infusion Therapy in [address] [address] Melinda Isaac APRN, C.N.P. [address] [place] [phone] 08/16/2024 9:00 AM CARDIAC CATH TECHNICIAN Infusion Department of Infusion Therapy in [address] [address] Melinda Isaac APRN, C.N.P. [address] [place] [phone] 08/17/2024 9:00 AM CARDIAC CATH TECHNICIAN Infusion Department of Infusion Therapy in [address] [address] Melinda Isaac APRN, C.N.P. [address] [place] [phone] 08/18/2024 9:00 AM CARDIAC CATH TECHNICIAN Infusion Department of Infusion Therapy in [address] [phone] Melinda Isaac APRN, C.N.P. [address] [place] [phone] documented as of this encounter Visit Diagnoses Diagnosis Empyema Pleural (HCC)- Primary documented in this encounter Administered Medications Inactive Administered Medications - up to 3 most recent administrations Medication Order MAR Action Action Date Dose Rate Site cefTRIAXone injection 2 g (Rocephin) 2 g, intravenous, Once, On Mon07/22/24 at 0930, For 1 dose, Every 24 hours If needed, reconstitute vial per package insert instructions. See IVAG for administration guidelines., Drug Monitoring Program: Pharmacist to adjust medication dosing based on indication and drug clearance factors., Indications: Respiratory tract infection, community acquiredIndications:Respiratory tract infection, community acquired Given 07/22/2024 9:20 AM CARDIAC CATH TECHNICIAN 2 g sodium chloride 0.9 % injection 10-30 mL 10-30 mL, intravenous, As needed, line care, Starting on Mon07/22/24 at 0905, Prior to and following infusion, between multiple consecutive infusions.10 mL to each lumen.Indications:Empyema Pleural (HCC) Given 07/22/2024 9:24 AM CARDIAC CATH TECHNICIAN 10 mL Given 07/22/2024 9:19 AM CARDIAC CATH TECHNICIAN 10 mL documented in this encounter Additional Health Concerns Assessment Noted Time PHQ-9 Depression Total Score: 22 025 7:19 PM CARDIAC CATH TECHNICIAN documented as of this encounter Care Teams Speech Therapist Early Intervention Relationship Specialty Start Date End Date Prudence Mena MPAS, P.A.-C. [address] [place], [place] [address]marta [place] [phone] PCP - General Internal Medicine 02/08/24 documented as of this encounter
--- OUTSIDE RECORDS SUMMARY | 2024-07-28 21:16 | XMS_ITS | Encounter Summary ---
Author Organization [facility] Address [address] [place] [id number] Care Team Providers Care Material Handling Warehouse Supervisor Name Role Phone Prudence Mena P.A.-C. Primary Care Pro vider Reason for Visit * Auth/Cert (Routine) Specialty Diagnoses / Procedures Referred By Contac t Referred To Contact Diagnoses Empyema Pleural (HCC) Pleuritic chest pain. empyema Procedures INPT Referral ID Status Reason Start Date Expiration Date Visits Re quested Visits Authorized [id number] 1 1 Encounter Details Date Type Department Care Team (Late st Contact Info) Description 07/15/2024 12:57 PM TIGER MACHINE OPERATOR Anesthesia Event [facility]ST [facility] MAIN OR [address] [place] [phone] aLnre Hayward M.D. [address] [place] [phone] Aroldo Johnson, RDmitryNDmitry Anesthesia Record Procedure Summary Procedure Name Responsible Anesthesiologist Anesthesia Start Time Anesthesia Stop Time ROBOTIC THORACOSCOPY, DECORTICATION, PLEURODESIS, PROCEED INDICATED. (Left) Lanre Hayward M.D. 07/15/24 1257 07/15/24 1702 Events Date Time Event Comment 07/15/2024 1257 An Start Machine/Equipme nt Checked Infection Precautions Followed Procedure/Site Verified NPO Status Verified Supine Standard ASA Monitors Applied 1307 An Induction 1317 An Intubation Single lumen e tt 1321 Airway Device Exchange 1329 Invasive catheter placement 1331 Turnover to Proceduralist 1410 Single Lung Ventilation 1411 Proc Start 1531 Anes CS Handoff I, Aroldo tomas R.N., attest that I have reconciled the controlled substances and that I have reviewed all the significant information with the next anesthesia provider assuming care of this patient. 1612 Double Lung Ventilation Resu med 1629 Proc Fin 1629 Turnover to ANE Staff 1646 Airway Removal Criteria Met 1646 Extubation/Airway Removed 1646 an stop data 1646 XRay 1702 An End I completed my handoff to the receiving staff during which we 1. Identified the patient 2. Identified the responsible provider 3. Reviewed the pertinent medical history 4. Discussed the surgical course 5. Reviewed intra-op anesthesia management and issues during anesthesia 6. Set expectations for post-procedure period 7. Allowed opportunity for questions and acknowledgement of understanding. Meds Name Total fentaNYL 50 mcg/mL IV injection 100 mcg lidocaine 2% (mg) injection 80 mg rocuronium 10 mg/mL injection 150 mg phenylephrine 100 mcg/mL injection 100 m cg ondansetron 4 mg/2 mL injection 4 mg sugammadex 100 mg/mL injection 400 mg propofol 10 mg/mL injection 200 mg ketamine 10 mg/mL injection 30 mg HYDROmorphone (Dilaudid) PF injection 2 mg/mL 1 mg dexAMETHasone (Decadron) injection 4 mg/ mL 8 mg propofoL (Diprivan) infusion 10 mg/mL 1, 128 mg albumin human injection 5% 500 mL piperacillin-tazobactam in dextrose (iso osm) IVPB 4.5 g (Zosyn) 4.5 g ceFAZolin (Ancef) injection 1 g/5 mL 2 g Lactated Ringers Free Drip 900 mL * Agents No agents on file. * Blood No blood administrations on file. Lines, Drains, and Airways Type Details Placement Removal Scope Sites 07/15/24; Chest; 1; Left, Anterior; 2; Left, Anterior, Medial; 3; Left, Posterior, Medial; 4; Left, Posterior; gauze, medipore tape 07/15/24 0000 by Diane Blevins RSelvin Peripheral IV Placement Date: 07/03 08/27; Placement Time: 0346; Catheter Size: 20 G; Orientation: Anterior, Left, Lower; Location: Forearm; Site Prep: Chlorhexidine (Preferred); Technique: Anatomical landmarks (3); Inserted by: YN; Insertion Attempts: 1; Removal Date: 07/15/24; Removal Time: 1330; Removal Reason: Infiltrated 07/14/24 0346 by Kirsty Null 07/15/24 1330 by Sandra May APRN, CRNA Peripheral IV Placement Date: 07/03 08/27; Placement Time: 0848; Catheter Size: 22 G; Orientation: Anterior, Lower, Right; Location: Forearm; Site Prep: Chlorhexidine (Preferred); Technique: Anatomical landmarks; Inserted by: COURTNEY; Insertion Attempts: 1; Removal Date: 07/20/24; Removal Time: 0900; Removal Reason: Per order 07/14/24 0848 by Viola Prasad 07/20/24 0900 by Christiano Fall Indwelling Urinary Catheter Placement Date: 07/15/24; Inserted by: Mary; Size: 16 Fr.; Balloon Size: 10 mL; Urine Returned: Yes; Removal Date: 07/16/24; Removal Time: 1341; Removal Reason: Per order 07/15/24 0000 by Diane Blevins, R.N. 07/16/24 1341 by Eric Carter Chest Tube 1 and 2 07/15/24; 1; Left; Pleural; 28 Fr; 2; Left; Pleural; 28 Fr 07/15/24 0000 by Diane Blevins, R.N. 07/19/24 1101 by Malcolm Cordon, R.N. ETT Placement Date: 07/03 09/24; Placement Time: 1317 (created via procedure documentation); Mask Ventilation: Oral/Nasal airway needed; Technique: Video laryngoscopy; Type: Double lumen right; Single Lumen Tube Size: 35 Fr; Cuffed: Yes; Location: Oral; Grade View: Grade 1; Insertion Attempts: 3 or more; Placement Verification: Bilateral breath sounds, Positive ETCO2, Symmetrical chest wall movement; Airway Comment: DLETT would not advance through vocal folds. [place] used with single ETT then exchanged over boujie for DLETT. Verified placement with fiberoptic; Removal Date: 07/15/24; Removal Time: 1646 07/15/24 1317 by Aroldo Johnson, R.NDmitry 07/15/24 1646 by Sandra May APRN, CRNA Peripheral IV Placement Date: 07/03 09/24; Placement Time: 1321; Catheter Size: 18 G; Orientation: Right; Location: Wrist; Removal Date: 07/20/24; Removal Time: 0524; Removal Reason: Per patient/family request 07/15/24 1321 by Aroldo Johnson R.NDmitry 07/20/24 0524 by Isis Flaherty RDmitryNDmitry Peripheral IV Placement Date: 07/03 09/24; Placement Time: 1321; Catheter Size: 18 G; Orientation: Left; Location: Hand (catheter is slightly out of skin but it working wonderful with great blood return); Removal Date: 07/17/24; Removal Time: 0900 07/15/24 1321 by Aroldo Johnson R.NDmitry 07/17/24 0900 by Helena Brady RDmitryNDmitry Arterial Line Placement Date: 07/03 09/24; Placemnt Time: 1331 (created via procedure documentation); Size: 20 G; Orientation: Left; Location: Radial; Site Prep: Chlorhexidine (Preferred); Technique: Ultrasound guidance; Insertion Attempts: 1; Securement: Securement dressing, Securement device; Removal Date: 07/16/24; Removal Time: 1157; Removal Reason: Per protocol 07/15/24 1331 by Sandra May APRN, CRNA 07/16/24 1157 by Beena Wang R.N., C.M.S.R.N. documented in this encounter Social History Tobacco Use Types Packs/Day Years Used Date Smoking Tobacco: Former Cigarettes 1.5 0.1 S tarted: 06/21/2024 Passive Smoke Exposure: Past Smokeless Tobacco: Never Alcohol Use Standard Drinks/Week Comments Yes 0 (1 standard drink = 0.6 oz pur e alcohol) socially [facility] Utilities Answer Date Recorded In the past 12 months has [employer], gas, oil, or water [employer] threatened to shut off services in your [...] Never 07/27/2022 How often do you attend zoroastrian or mormonism serv ices? Never 07/27/2022 Do you belong to any clubs o r organizations such as zoroastrian groups, unions, fraternal or athletic groups, or [...] Answer Date Recorded PHQ-2 Score 6 07/10/2024 [facility] [place] of Occupat ional Health - Occupational Stress [...] PM CDT documented as of this encounter Functional Status * Intimate Partner Violence Question Answer Date of Assessment Author Within the last year, have y ou been humiliated or emotionally abused in other ways by your partner or ex-partner? No 07/15/2024 8:00 PM TIGER MACHINE OPERATOR Helena Brady RDmitryN. Within the last year, have y ou been afraid of your partner or ex-partner? No 07/15/2024 8:00 PM TIGER MACHINE OPERATOR Helena Brady R.N. Within the last year, have y ou been raped or forced to have any kind of sexual activity by your partner or ex-partner? No 07/15/2024 8:00 PM TIGER MACHINE OPERATOR Helena Brady RDmitryN. Within the last year, have y ou been kicked, hit, slapped, or otherwise physically hurt by your partner or ex-partner? No 07/15/2024 8:00 PM TIGER MACHINE OPERATOR Helena Brady R.N. documented as of this encounter OR Notes * Anesthesia Postprocedure Evaluation - Lanre Hayward M.D. - 07/15/2024 6:45 PM CST Patient: Melinda Kumar Procedure Summary Date: 07/15/24 Room / Location: [address] [facility] in [place], [place] Anesthesia Start: 1257 Anesthesia Stop: 1702 Procedure: ROBOTIC THORACOSCOPY, DECORTICATION, PLEURODESIS, PROCEED INDICATED. (Left) Diagnosis: Empyema Pleural (HCC) (Left empyema.) Providers: Patrick Mtz M.D., Ph.D. Responsible Provider: Lanre Hayward M.D. Anesthesia Type: general ASA Status: 2 Anesthesia Type: general Last vitals Vitals Value Taken Time BP 129/94 07/15/24 1830 Temp 36.1 ??C 07/15/24 1820 Pulse 106 07/15/24 1835 Resp 12 07/15/24 1837 SpO2 93 % 07/15/24 1835 Vitals shown include unfiled device data. Please reference Vitals flowsheet for most recent vital signs. Anesthesia Post Evaluation Patient Disposition: general care unit Cardiovascular status: hemodynamics (HR & BP) acceptable Respiratory status: patent airway with spontaneous effort Temperature: normothermic Oxygen requirements: nasal cannula Level of consciousness: awake Pain score: pain requiring further management Post Op nausea/vomiting: none Hydration status: euvolemic Comments: Please call with questions/concerns. To PCU post-op. Notable Events No notable events documented. R MACHINE OPERATOR * Anesthesia Procedure Notes - Sandra May APRN, CRNA - 07/15/2024 5:02 PM CSTAssociated Order(s): Invasive Catheter Invasive Catheter Date/Time: 07/15/2024 1:31 PM Performed [...] turn: yes Notable Events - arterial: none R MACHINE OPERATOR R MACHINE OPERATOR * Anesthesia Procedure Notes - Aroldo Johnson R.N. - 07/15/2024 2:01 PM TIGER MACHINE OPERATOR Associated Order(s): Airway Airway Date/Time: 07/15/2024 1:17 PM Performed by: Aroldo Johnson R.N. Authorized by: Jamie Kumar M.D. Patient location during procedure: OR / Procedure Area PROCEDURE DETAILS: Mask difficulty assessment: oral/nasal airway needed Final airway type: video laryngoscope Laryngeal Manipulation: no Final best view of glottic structures - Cormack/Lehane Score: grade 1 ETT location: oral VL device: glide scope [place] scope blade size: 3 Tube size: 35 [...] DLETT would not advance through vocal folds. [place] used with single ETT then exchanged over boujie for DLETT. Verified placement with fiberoptic PRE PROCEDURE DETAILS: Pre evaluation for airway management: procedure Urgency: elective Preop assessment of probable difficulty: questionable / suspicious difficult airway Preoxygenation: bag valve mask SEDATION / ANESTHESIA Anesthesia method: anesthesia POST PROCEDURE DETAILS: Procedure outcome: successful Notable Events: no complications R MACHINE OPERATOR * Anesthesia Preprocedure Evaluation - Jamie Kumar M.D. - 07/15/2024 11:43 AM CST Preprocedure Anesthesia & H&P Assessment Procedure Summary Date/Time: 07/15/24 1310 Procedure: ROBOTIC THORACOSCOPY, DECORTICATION, PLEURODESIS, POSSIBLE THORACOTOMY, PROCEED INDICATED. (Left) Diagnosis: Empyema Pleural (HCC) [J86.9] Pre-op diagnosis: Left empyema. Location: [address] / [facility] in [place], [place] Providers: Patrick Mtz M.D., Ph.D. Pertinent components of the patient's history including current problem list, medical history, surgical history, family history, social history, medications and allergies were reviewed. Present illness and pre-op diagnosis were confirmed. The planned surgery / procedure was verified with the patient / legal guardian. The patient's general health condition remains unchanged RELEVANT COMORBID CONDITIONS CV (+) Hypertension Essential Primary RESP (+) Asthma (HCC) PSYCH (+) Major Depressive Disorder, Recurrent, Unspecified (HCC) Other (+) Nicotine Dependence Cigarettes OBJECTIVE PHYSICAL EXAMINATION Airway (HEENT) Mallampati: II Cardiovascular Rhythm: Regular Pulmonary Pulmonary Assessment: Clear General / Constitutional Constitutional Assessment: Normal ASSESSMENT / PLAN ANESTHESIA PLAN ASA: 2 Anesthesia Plan: general Patient seen and allergies reviewed, anesthesia plan and risks discussed directly with patient /legal guardian or through an centralized traffic control operator. Risks/Benefits/Alternatives of Blood transfusion discussed with patient / legal guardian, includingan opportunity to ask questions and/or decline some or all transfusion therapies. The patient / legal guardian consented to the use of all blood products, as deemed medically necessary Approval to Proceed: approved for anesthesia R MACHINE OPERATOR documented in this encounter Plan of Treatment Upcoming Encounters Date Type Department Care Team (Late st Contact Info) Description 07/29/2024 10:00 AM TIGER MACHINE OPERATOR Infusion Department of Infusion Therapy in [address] [phone] Melinda Isaac APRN, C.N.P. [address] [place] [phone] 07/29/2024 2:20 PM TIGER MACHINE OPERATOR Office Visit Department of Community Internal Medicine in [place], [place] [address] [place] [phone] Prudence Mena MPAS, P.A.-C. [address] [place] [phone] 07/30/2024 9:00 AM TIGER MACHINE OPERATOR Infusion Department of Infusion Therapy in [address] [phone] Melinda Isaac APRN, C.N.P. [address] [place] [phone] 07/31/2024 8:00 AM TIGER MACHINE OPERATOR Infusion Department of Infusion Therapy in [address] [place] [address] Melinda Isaac APRN, C.N.P. [address] [place] [phone] 08/01/2024 7:00 AM TIGER MACHINE OPERATOR Infusion Department of Infusion Therapy in [address] [phone] Melinda Isaac APRN, C.N.P. [address] [place] [phone] 08/02/2024 9:00 AM TIGER MACHINE OPERATOR Infusion Department of Infusion Therapy in [address] [phone] Melinda Isaac APRN, C.N.P. [address] [place] [phone] 08/02/2024 12:30 PM TIGER MACHINE OPERATOR Clinical Communication Virtual Review in [place], [place] [address] [place] [address] 08/03/2024 9:00 AM TIGER MACHINE OPERATOR Infusion Department of Infusion Therapy in [address] [phone] Melinda Isaac APRN, C.N.P. [address] [place] [phone] 08/04/2024 9:00 AM TIGER MACHINE OPERATOR Infusion Department of Infusion Therapy in [address] [phone] Melinda Isaac APRN, C.N.P. [address] [place] [phone] 08/05/2024 8:45 AM TIGER MACHINE OPERATOR Appointment Department of Radiology, [facility], in [place], [place] [address] [place] [phone] Kayleigh Small M.D. [address] [place] [phone] 08/05/2024 9:00 AM TIGER MACHINE OPERATOR Infusion Department of Infusion Therapy in [address] [phone] Melinda Isaac APRN, C.N.P. [address] [place] [phone] 08/05/2024 11:00 AM TIGER MACHINE OPERATOR Office Visit Section of Infectious Diseases in [place], [place] [address] [place] [phone] Kayleigh Small M.D. [address] [place] [phone] 08/06/2024 9:00 AM TIGER MACHINE OPERATOR Infusion Department of Infusion Therapy in [address] [address] Melinda Isaac APRN, C.N.P. [address] [place] [phone] 08/07/2024 9:00 AM TIGER MACHINE OPERATOR Infusion Department of Infusion Therapy in [address] [phone] Melinda Isaac APRN, C.N.P. [address] [place] [phone] 08/08/2024 9:00 AM TIGER MACHINE OPERATOR Infusion Department of Infusion Therapy in [address] [address] Melinda Isaac APRN, C.N.P. [address] [place] [phone] 08/09/2024 9:00 AM TIGER MACHINE OPERATOR Infusion Department of Infusion Therapy in [address] [phone] Melinda Isaac APRN, C.N.P. [address] [place] [phone] 08/10/2024 9:00 AM TIGER MACHINE OPERATOR Infusion Department of Infusion Therapy in [address] [phone] Melinda Isaac APRN, C.N.P. [address] [place] [phone] 08/11/2024 9:00 AM TIGER MACHINE OPERATOR Infusion Department of Infusion Therapy in [address] [phone] Melinda Isaac APRN, C.N.P. [address] [place] [phone] 08/12/2024 9:00 AM TIGER MACHINE OPERATOR Infusion Department of Infusion Therapy in [address] [phone] Melinda Isaac APRN, C.N.P. [address] [place] [phone] 08/13/2024 8:30 AM TIGER MACHINE OPERATOR Infusion Department of Infusion Therapy in [address] [phone] Melinda Isaac APRN, C.N.P. [address] [place] [phone] 08/14/2024 9:00 AM TIGER MACHINE OPERATOR Infusion Department of Infusion Therapy in [address] [address] Melinda Isaac APRN, C.N.P. [address] [place] [phone] 08/15/2024 9:00 AM TIGER MACHINE OPERATOR Infusion Department of Infusion Therapy in [address] [address] Melinda Isaac APRN, C.N.P. [address] [place] [phone] 08/16/2024 9:00 AM TIGER MACHINE OPERATOR Infusion Department of Infusion Therapy in [address] [phone] Melinda sIaac APRN, C.N.P. [address] [place] [phone] 08/17/2024 9:00 AM TIGER MACHINE OPERATOR Infusion Department of Infusion Therapy in [address] [phone] Melinda Isaac APRN, C.N.P. [address] [place] [phone] 08/18/2024 9:00 AM TIGER MACHINE OPERATOR Infusion Department of Infusion Therapy in [address] [phone] Melinda Isaac APRN, C.N.P. [address] [place] [phone] documented as of this encounter Procedures Procedure Name Priority Date/Time Associated Diagnosis Comments LDA ANE ARTERIAL LINE INSERTION Routine 07/15/2024 1:31 PM TIGER MACHINE OPERATOR DC ARTL CATH/CNULA MONITOR PERC Routine 07/15/2024 1:31 PM TIGER MACHINE OPERATOR LDA ANE ENDOTRACHEAL AIRWAY Routine 07/15/2024 1:17 PM TIGER MACHINE OPERATOR documented in this encounter Results * DC ARTL CATH/CNULA MONITOR PERC, LDA ANE ARTERIAL LINE INSERTION (07/15/2024 1:31 PM TIGER MACHINE OPERATOR) Narrative Sandra May APRN, CRNA - 07/15/2024 1:31 PM TIGER MACHINE OPERATOR Sandra May APRN, CRNA 07/15/2024 5:03 PM [...] LDA ANE ENDOTRACHEAL AIRWAY (07/15/2024 1:17 PM TIGER MACHINE OPERATOR) Narrative Aroldo Johnson R.N. - 07/15/2024 1:17 PM TIGER MACHINE OPERATOR Aroldo Johnson R.N. 07/15/2024 2:03 PM Airway Date/Time: 07/15/2024 1:17 PM Performed by: Aroldo Johnson R.N. Authorized by: Jamie Kumar M.D. Patient location during procedure: OR / Procedure Area PROCEDURE DETAILS: Mask difficulty assessment: oral/nasal airway needed Final airway type: video laryngoscope Laryngeal Manipulation: no Final best view of glottic structures - Cormack/Lehane Score: grade 1 ETT location: oral VL device: glide scope [place] scope blade size: 3 Tube size: 35 [...] DLETT would not advance through vocal folds. [place] used with single ETT then exchanged over boujie for DLETT. Verified placement with fiberoptic PRE PROCEDURE DETAILS: Pre evaluation for airway management: procedure Urgency: elective Preop assessment of probable difficulty: questionable / suspicious difficult airway Preoxygenation: bag valve mask SEDATION / ANESTHESIA Anesthesia method: anesthesia POST PROCEDURE DETAILS: Procedure outcome: successful Notable Events: no complications Jamie Kumar M.D. ANESTHESIA ORDERABLES Final Resu lt documented in this encounter Visit Diagnoses Not on filedocumented in this encounter Administered Medications Inactive Administered Medications - up to 3 most recent administrations Medication Order MAR Action Action Date Dose Rate Site albumin human 5 % injection intravenous, As needed, Starting on Mon07/15/24 at 1456, Anesthesia Intra-op Given 07/15/2024 3:06 PM TIGER MACHINE OPERATOR 250 mL Given 07/15/2024 2:56 PM TIGER MACHINE OPERATOR 250 mL ceFAZolin injection (Ancef) intravenous, As needed, Starting on Mon07/15/24 at 1407, Anesthesia Intra-op Given 07/15/2024 2:07 PM TIGER MACHINE OPERATOR 2 g dexAMETHasone injection (Decadron) intravenous, As needed, Starting on Mon07/15/24 at 1415, Anesthesia Intra-op Given 07/15/2024 2:15 PM TIGER MACHINE OPERATOR 8 mg fentaNYL injection (Sublimaze) intravenous, As needed, Starting on Mon07/15/24 at 1307, Anesthesia Intra-op Given 07/15/2024 1:07 PM TIGER MACHINE OPERATOR 100 mcg HYDROmorphone (PF) injection (Dilaudid) intravenous, As needed, Starting on Mon07/15/24 at 1420, Anesthesia Intra-op Given 07/15/2024 3:20 PM TIGER MACHINE OPERATOR 0.2 mg Given 07/15/2024 2:33 PM TIGER MACHINE OPERATOR 0.4 mg Given 07/15/2024 2:20 PM TIGER MACHINE OPERATOR 0.4 mg ketamine injection (Ketalar) intravenous, As needed, Starting on Mon07/15/24 at 1418, Anesthesia Intra-op Given 07/15/2024 3:58 PM TIGER MACHINE OPERATOR 10 mg Given 07/15/2024 3:06 PM TIGER MACHINE OPERATOR 10 mg Given 07/15/2024 2:18 PM TIGER MACHINE OPERATOR 10 mg Lactated Ringer's intravenous, Continuous Infusion: Per Instructions PRN, Starting on Mon07/15/24 at 1307, Anesthesia Intra-op New Bag 07/15/2024 1:07 PM TIGER MACHINE OPERATOR lidocaine (PF) (cardiac) injection intravenous, As needed, Starting on Mon07/15/24 at 1307, Anesthesia Intra-op Given 07/15/2024 1:07 PM TIGER MACHINE OPERATOR 80 mg ondansetron (PF) injection (Zofran) intravenous, As needed, Starting on Mon07/15/24 at 1606, Anesthesia Intra-op Given 07/15/2024 4:06 PM TIGER MACHINE OPERATOR 4 mg phenylephrine injection intravenous, As needed, Starting on Mon07/15/24 at 1618, Anesthesia Intra-op Given 07/15/2024 4:18 PM TIGER MACHINE OPERATOR 100 mcg piperacillin-tazobactam in dextrose (iso osm) IVPB 4.5 g (Zosyn) 4.5 g, intravenous, at 200 mL/hr, Administer over 0.5 Hours, Every 6 hours, First dose (after last modification) on Mon07/13/24 at 2100, Drug Monitoring Program: Pharmacist to adjust medication dosing based on indication and drug clearance factors., Indications: Respiratory tract infection, healthcare associatedIndications:Respiratory tract infection, healthcare associated New Bag 07/17/2024 2:23 PM TIGER MACHINE OPERATOR 4.5 g 200 mL/hr New Bag 07/17/2024 8:11 AM TIGER MACHINE OPERATOR 4.5 g 200 mL/hr New Bag 07/17/2024 3:41 AM TIGER MACHINE OPERATOR 4.5 g 200 mL/hr propofol 10 mg/mL infusion (Diprivan) intravenous, As needed, Starting on Mon07/15/24 at 1307, Anesthesia Intra-op Rate/Dose Change 07/15/2024 2:58 PM TIGER MACHINE OPERATOR 50 mcg/kg/min 28.8 mL/hr Rate/Dose Change 07/15/2024 1:20 PM TIGER MACHINE OPERATOR 75 mcg/kg/min 43.2 mL/hr New Bag 07/15/2024 1:07 PM TIGER MACHINE OPERATOR 50 mcg/kg/min 28.8 mL/hr propofoL injection (Diprivan) intravenous, As needed, Starting on Mon07/15/24 at 1307, Anesthesia Intra-op Given 07/15/2024 1:07 PM TIGER MACHINE OPERATOR 200 mg rocuronium injection (Zemuron) intravenous, As needed, Starting on Mon07/15/24 at 1307, Anesthesia Intra-op Given 07/15/2024 4:01 PM TIGER MACHINE OPERATOR 10 mg Given 07/15/2024 3:20 PM TIGER MACHINE OPERATOR 20 mg Given 07/15/2024 2:28 PM TIGER MACHINE OPERATOR 20 mg sugammadex injection ([place]) intravenous, As needed, Starting on Mon07/15/24 at 1619, Anesthesia Intra-op Given 07/15/2024 4:41 PM TIGER MACHINE OPERATOR 100 mg Given 07/15/2024 4:39 PM TIGER MACHINE OPERATOR 100 mg Given 07/15/2024 4:19 PM TIGER MACHINE OPERATOR 200 mg documented in this encounter Additional Health Concerns Assessment Noted Time PHQ-9 Depression Total Score: 22 025 7:19 PM TIGER MACHINE OPERATOR documented as of this encounter Care Teams Material Handling Warehouse Supervisor Relationship Specialty Start Date End Date Prudence Mena MPAS, P.A.-C. [address] [place] [address] DESHAUN Orta [phone] PCP - General Internal Medicine 02/08/24 documented as of this encounter
--- OUTSIDE RECORDS SUMMARY | 2024-07-28 21:16 | XMS_ITS | Encounter Summary ---
Author Organization [facility] Address [address] [place] [id number] Care Team Providers Care Tax Evaluator Name Role Phone Prudence Mena P.A.-C. Primary Care Pro vider Reason for Visit * Auth/Cert (Routine) Specialty Diagnoses / Procedures Referred By Contac t Referred To Contact Diagnoses Empyema Pleural (HCC) Pleuritic chest pain. empyema Procedures INPT Referral ID Status Reason Start Date Expiration Date Visits Re quested Visits Authorized [id number] 1 1 Encounter Details Date Type Department Care Team (Late st Contact Info) Description 07/15/2024 1:10 PM STRUCTURAL METAL WORKER - 07/15/2024 4:33 PM STRUCTURAL METAL WORKER Surgery [facility] ROM[facility] MAIN OR [address] [place] [phone] Patrick Mtz M.D., Ph.D. [address] [place] [id number] ROBOTIC THORACOSCOPY, DECORTICATION, PLEURODESIS, PROCEED INDICATED. Social History Tobacco Use Types Packs/Day Years Used Date Smoking Tobacco: Former Cigarettes 1.5 0.1 S tarted: 06/21/2024 Passive Smoke Exposure: Past Smokeless Tobacco: Never Alcohol Use Standard Drinks/Week Comments Yes 0 (1 standard drink = 0.6 oz pur e alcohol) socially [facility] Utilities Answer Date Recorded In [...] How often do you attend shinto or restoration serv ices? Never 07/27/2022 Do [...] Date Recorded PHQ-2 Score 6 07/10/2024 [facility] Occupational Stress Questionnaire Answer [...] Sign Reading Time Taken Comments Blood Pressure 132/87 07/15/2024 8:30 AM STRUCTURAL METAL WORKER Pulse 99 07/15/2024 8:30 AM STRUCTURAL METAL WORKER Temperature 36.8 C (98.2 F) 07/15/2024 8:30 AM STRUCTURAL METAL WORKER Respiratory Rate 22 07/15/2024 8:30 AM STRUCTURAL METAL WORKER Oxygen Saturation 98% 07/15/2024 8:30 AM STRUCTURAL METAL WORKER Inhaled Oxygen Concentration - - Weight 96 kg (211 lb 10.3 oz) 07/13/2024 8:00 PM STRUCTURAL METAL WORKER Height - - Body Mass Index 37.53 07/17/2024 3:00 PM STRUCTURAL METAL WORKER documented in this encounter Discharge Summaries * Shahram Abernathy, FRED, C.N.P., M.S. - 07/20/2024 10:16 AM CST DISCHARGE SUMMARY BRIEF OVERVIEW Hospital: [facility] Discharge Provider: Patrick Mtz M.D. Primary Team: [facility] Thoracic Surgery - [place] Primary Care Providers: Prudence Mena MPAS, P.A.-CDmitry (General) [address] [place] [phone] Primary Care Provider Primary Care Provider Other Providers: None Admission Date: 07/13/2024 Discharge Date: 07/20/2024 PRINCIPAL DIAGNOSIS Empyema Pleural (HCC) SECONDARY DISCHARGE DIAGNOSES Principal Problem: Empyema Pleural (HCC) Resolved Problems: * No resolved hospital problems. * Surgery Information This Encounter Past Procedures (07/20/2023 to Today) Date Procedures Providers Loc / Dept 07/15/2024 ROBOTIC THORACOSCOPY, DECORTICATION, PLEURODESIS, PROCEED INDICATED. Patrick Mtz M.D., Ph.D.Catrina Sutton M.D. [facility] ROMB OR DISCHARGE DISPOSITION Home or Self Care [1] ACTIVE ISSUES REQUIRING FOLLOW UP Follow up with a member of Dr. Mtz's team in 6 week with a chest x-ray. Please log in to the patient portal within the next week to check for additional appointments and/or schedule your appointments as directed. Please contact Dr. Mtz's Service with any questions or issues. Admin Ast: [phone] (M-F 8 AM to 5 PM) Care Tech: [phone] (Thoracic Surgery Jewel Sawyer for Nights & Weekend Urgent Issues) Appointments: [phone] INFECTIOUS DISEASES THERAPY RECOMMENDATIONS Antimicrobial plan: Patient will stay on the following antimicrobials: Ceftriaxone 2 gm IV every 24 hours Tentative stop date stop date: 08/05/2024; final stop date to be determined at follow up visit Metronidazole 500 mg orally every 8 hours Tentative stop date stop date: 08/05/2024; final stop date to be determined at follow up visit Lab monitoring while on antimicrobial therapy: Yes, weekly on antibiotics Complete blood count withdifferential, Alanine aminotransferase (ALT), Creatinine, and Alkaline phosphatase. Please fax to division of Infectious Diseases OPAT monitoring program at [phone]. Should patient be enrolled in OPAT/COPAT program: Yes- Adult OPAT Infectious Diseases follow-up: Follow-up: Clinical syndrome requiring follow up: empyema. Follow up with infectious diseases on 08/05/2024. Orders for follow up visit: Imaging studies: Chest XR on 08/05/2024 before appointment. Central catheter management at end of treatment: Central catheter removal decision will be made at follow-up appointment but an appointment for PICC removal should be made for AFTER ID clinical appointment. OUTPATIENT FOLLOW UP Scheduled Appointments Next 10 Appointments 07/21/2024 9:00 AM CHAIR 01 [facility] 02 INF Infusion Therapy 07/22/2024 9:00 AM CHAIR 05 [facility] 02 INF Infusion Therapy 07/23/2024 9:00 AM CHAIR 05 [facility] 02 INF Infusion Therapy 07/24/2024 9:00 AM CHAIR 03 [facility] XX INF Infusion Therapy 07/25/2024 9:00 AM CHAIR 05 [facility] 02 INF Infusion Therapy 07/26/2024 9:00 AM CHAIR 05 [facility] 02 INF Infusion Therapy 07/27/2024 9:00 AM CHAIR 01 [facility] 02 INF Infusion Therapy 07/28/2024 9:00 AM CHAIR 01 [facility] 02 INF Infusion Therapy 07/29/2024 10:00 AM CHAIR 05 [facility] 02 INF Infusion Therapy 07/30/2024 9:00 AM CHAIR 05 [facility] 02 INF Infusion Therapy Displaying the next 10 appointments. This patient has additional appointments scheduled. For appointment details refer to your Patient Appointment Guide. TEST RESULTS PENDING AT DISCHARGE Pending Labs Order Current Status Fungal Culture, Routine In process Fungal Culture, Routine In process Mycobacterial Culture In process Mycobacterial Culture In process Actinomyces Culture Preliminary result Bacterial Culture, Aerobic + Susceptibility Preliminary result Bacterial Culture, Aerobic + Susceptibility Preliminary result Bacterial Culture, Anaerobic + Susceptibility Preliminary result Legionella Culture Preliminary result DETAILS OF HOSPITAL STAY REASON FOR ADMISSION Empyema Pleural (HCC) HOSPITAL COURSE Ms. Kumar is a 39-year-old female who was a direct admission from [facility] on for a left-sided empyema. She proceeded to the OR with Dr. Mtz on 07/15/24 for a VATS left decortication. Chest tube were removed without incident and x-ray to follow was adequate. Infectious Disease was consulted and recommended Ceftriaxone 2 g daily and oral Metronidazole 500 mg Q8h with a stop date on 08/05/24. Prior to discharge her pain was controlled, she was tolerating a general diet, and voiding without difficulty. CONSULTS ORDERED DURING THIS ADMISSION IP CONSULT TO PULMONARY REHABILITATION IP CONSULT TO INFECTIOUS DISEASES IP CONSULT TO CARE MANAGEMENT Order Name Source Comment Collection Info Order Time FUNGAL CULTURE, ROUTINE Pleural Fluid, Left Collected By: Patrick Mtz M.D., Ph.D. 07/15/2024 2:32PM Should the communication of this result to the patient's portal be released immediately? Release Immediately GRAM STAIN Pleural Fluid, Left Collected By: Patrick Mtz M.D., Ph.D. 07/15/2024 2:32 PM Should the communication of this result to the patient's portal be released immediately? Release Immediately ACID FAST SMEAR FOR MYCOBACTERIUM Pleural Fluid, Left Collected By: Patrick Mtz M.D., Ph.D. 07/15/2024 2:32 PM Should the communication of this result to the patient's portal be released immediately? Release Immediately FUNGAL SMEAR Pleural Fluid, Left Collected By: Patrick Mtz M.D., Ph.D. 07/15/2024 2:32 PM Should the communication of this result to the patient's portal be released immediately? Release Immediately MYCOBACTERIAL CULTURE, V Pleural Fluid, Left Collected By: Patrick Mtz M.D., Ph.D. 07/15/2024 2:32 PM Should the communication of this result to the patient's portal be released immediately? Release Immediately BACTERIAL CULTURE, AEROBIC + SUSC Pleural Fluid, Left Collected By: Patrick Mtz M.D., Ph.D. 07/15/2024 2:32 PM Should the communication of this result to the patient's portal be released immediately? Release Immediately BACTERIAL CULTURE, ANAEROBIC + SUSC Pleura, Left Collected By: Patrick Mtz M.D., Ph.D. 54:01 PM Should the communication of this result to the patient's portal be released immediately? Release Immediately FUNGAL CULTURE, ROUTINE Pleura, Left Collected By: Patrick Mtz M.D., Ph.D. 07/15/2024 4:01 PM Should the communication of this result to the patient's portal be released immediately? Release Immediately GRAM STAIN Pleura, Left Collected By: Patrick Mtz M.D., Ph.D. 07/15/2024 4:01 PM Should the communication of this result to the patient's portal be released immediately? Release Immediately ACID FAST SMEAR FOR MYCOBACTERIUM Pleura, Left Collected By: Patrick Mtz M.D., Ph.D. 07/15/2024 4:01 PM Should the communication of this result to the patient's portal be released immediately? Release Immediately LEGIONELLA CULTURE Pleura, Left Collected By: Patrick Mtz M.D., Ph.D. 07/15/2024 4:01 PM Should the communication of this result to the patient's portal be released immediately? Release Immediately FUNGAL SMEAR Pleura, Left Collected By: Patrick Mtz M.D., Ph.D. 07/15/2024 4:01 PM Should the communication of this result to the patient's portal be released immediately? Release Immediately MYCOBACTERIAL CULTURE, V Pleura, Left Collected By: Patrick Mtz M.D., Ph.D. 07/15/2024 4:01 PM Should the communication of this result to the patient's portal be released immediately? Release Immediately ACTINOMYCES CULTURE Pleura, Left Collected By: Patrick Mtz M.D., Ph.D. 07/15/2024 4:01 PM Should the communication of this result to the patient's portal be released immediately? Release Immediately BACTERIAL CULTURE, AEROBIC + SUSC Pleura, Left Collected By: Patrick Mtz M.D., Ph.D. 07/15/2024 4:01 PM Should the communication of this result to the patient's portal be released immediately? Release Immediately TYPE AND SCREEN Blood, Venous 07/15/2024 7:16 AM Last Imaging Result DX CHEST AP OR PA AND LATERAL 2 VIEWS Impression Since earlier today, removal of the left chest tube. Remainder not significantly changed. Trace left apical pneumothorax. Right PICC tip at the SVC/RA junction. No pleural effusions. Enlarged cardiacsilhouette. Scattered subsegmental atelectasis. CONDITION AT DISCHARGE stable Discharge instructions were provided to the patient and caregiver(s). Total time spent in discharge services today: greater than 30 minutes. CTURAL METAL WORKER documented in this encounter Discharge Instructions * Attachments The following attachments cannot be sent through Care Everywhere. * Acute Pain and the Healing Process * Ceftriaxone (By injection) (Guyanese) * Ibuprofen (By mouth) (Guyanese) * Methocarbamol (By mouth) (Guyanese) * Metronidazole (By mouth) (Guyanese) * Oxycodone, Rapid Release (By mouth) (Guyanese) * Laxative, Stimulant (By mouth) (Guyanese) documented in this encounter Medications at Time of Discharge [...] a venous catheter daily for 17 days. [facility] 07/19/2024 cholecalciferol (VITAMIN D3) 50 mcg (2,000 [...] by mouth 2 (two) times a day. ibuprofen 400 mg tablet Take 1 tablet (400 mg total) by mouth every 6 (six) hours as needed for moderate pain or score 4-6 of 10 or severe pain or score 7-10 of 10 for up to 3 days. 12 tablet 07/20/2024 ipratropium-albu teroL (DuoNeb) 0.5-2.5 mg/3 mL nebulizer [...] muscle spasms. 45 tablet 07/20/2024 10:13 AM STRUCTURAL METAL WORKER 07/19/2024 metroNIDAZOLE (FlagyL) 500 mg tabletIndication s:Empyema Take 1 tablet (500 mg total) by mouth 3 (three) times a day for 17 days Indications: Empyema. 51 tablet 07/20/2024 10:13 AM STRUCTURAL METAL WORKER 07/19/2024 multivitamin capsule Take 1 capsule by [...] Pain Exception. 28 tablet 07/20/2024 10:13 AM STRUCTURAL METAL WORKER 07/19/2024 documented as of this encounter Progress Notes * Magno Fisher, Ph.D. - 07/20/2024 9:57 AM CST 07/15 RA left decortication, anterior and posterior chest tubes Patient overall stable in the morning, no acute events overnight. Ibuprofen added for pain control.Patient consider ibuprofen as the most effective pain medication for her. Chest tubes removed without events. BP (!) 146/104 (BP Location: Left arm;Upper) Pulse 92 Temp 36.6 ??C (Oral) Resp 16 Ht 163 cm Wt 99.7 kg SpO2 93% BMI 37.53 kg/m?? I/O last 3 completed shifts: In: - Out: 1520 [Urine:1500; Chest Tube:20] Plan: - Preparation for home IV antibiotics - Encourage ambulance - Discharge today Patient discussed with Dr. Mtz. CTURAL METAL WORKER * Denny Ann R.RDmitryT., L.R.T. - 07/20/2024 7:32 AM CST 07/20/24 0732 Nocturnal Oxygen Assessment Asleep Room Air SpO2 86 Percent Oxygen Flow Rate 1 L/min (via nasal cannula) Nocturnal oxygen assessment completed. Patient's SpO2 was at or below 88% for 5 minutes or greater.Any desaturations on trend lower than patient SpO2 is considered artifact. Electronically signed by: Denny Ann R.R.T., L.R.T. 07/20/24 7:32 AM STRUCTURAL METAL WORKER CTURAL METAL WORKER * Kusum Urena R.R.T., L.R.T. - 07/19/2024 1:53 PM CST 07/19/24 1352 Pulmonary Rehab Pulmonary Rehab Patient Evaluation Pulmonary rehabilitation ordered;Chart and history reviewed Monitored Exercise Session Details see note $Monitored Exercise Session 15 minutes Inpatient Pulmonary Rehab: Follow-up Needed Yes Inpatient Pulmonary Rehab: Next Date 07/20/24 Inpatient Pulmonary Rehab: Patient to be Seen Next by RT Attempted to see patient x's 2 for pulmonary rehab exercises today. Upon first attempt patient requested we come back this afternoon. Upon second attempt, patient was out of room off unit for testing. We will check back with her tomorrow in hopes to bring to the gym for rehab exercises as tolerated. Electronically signed by: Kusum Urena R.R.T., LDmitryR.T. 07/19/24 1:54 PM STRUCTURAL METAL WORKER CTURAL METAL WORKER * Lopez Garvey M.D. - 07/19/2024 12:18 PM CST 07/15 RA left decortication, anterior and posterior chest tubes Patient overall stable in the morning, no acute events overnight. Patient most likely having pain secondary to chest tube. One chest tube removed yesterday. BP 122/86 (BP Location: Upper;Left arm, Patient Position: Lying) Pulse 96 Temp 36.5 ??C (Oral) Resp 18 Ht 163 cm Wt 99.7 kg SpO2 95% BMI 37.53 kg/m?? I/O last 3 completed shifts: In: 540 [P.O.:470] Out: 2144 [Urine:2049; Chest Tube:95] Exam: -single chest tube remaining with serosanguinous output and now air leak Plan: - PA Lateral chest xray - Remove remaining chest tube then post pull PA lateral CXR - Preparation for home IV antibiotics - Encourage ambulance Patient discussed with Dr. Mtz. CTURAL METAL WORKER * Arlyn Starr R.RElizabeth, L.R.T. - 07/18/2024 12:39 PM CST 07/18/24 1238 Pulmonary Rehab Pulmonary Rehab Patient Evaluation Pulmonary rehabilitation ordered;Chart and history reviewed Monitored Exercise Session Details see note $Monitored Exercise Session 15 minutes Inpatient Pulmonary Rehab: Follow-up Needed Yes Inpatient Pulmonary Rehab: Next Date 07/19/24 Inpatient Pulmonary Rehab: Patient to be Seen Next by RT RT unable to see Melinda Kumar due to patient refusal. Pt initially requested to wait until pain medications given. Returned 1hr 15 min later and she was having chest tubes removed. Returned 1 hour later and she was still feeling tired and requested we reschedule for tomorrow. Will attempt to see patient tomorrow. Electronically signed by: Arlyn Starr R.R.T., L.R.T. 07/18/24 12:39 PM STRUCTURAL METAL WORKER CTURAL METAL WORKER CTURAL METAL WORKER * Anna Wheeler - 07/18/2024 12:26 PM CST Clinical Nutrition: Initial Assessment RECOMMENDATIONS REQUIRING MD/PROVIDER ORDER No changes at this time; continue current nutrition orders For questions about patient's nutritional care please contact pager [phone] on weekdays or [phone] on weekends/holidays. NUTRITION ASSESSMENT: Ms. Kumar is a 39 y.o. female who was admitted for Empyema Pleural (HCC) Patient Active Problem List Diagnosis Hysterectomy Status [...] Chronic Bladder Pain Asthma (HCC) Hemorrhage Gastrointestinal Empyema Pleural (HCC) Requested to see patient for evaluation of: assessment of nutritional status. Current Diet Order: Adult Diet Regular Current Nutrition (since admission): Ms. Kumar was with her mother upon arrival. CBORD reports displays she was only ordering around 1,000 kcals a day. Patient informed nutrition that she was alsoeating food from outside of the hospital such as [employer] and [employer]. She currently feels likes she gets enough to eat, but had poor intake the last two weeks. Her illness had case her to feel nauseous and have no taste. This is no longer the case. Did provide shake/smoothie list to continue to promote intake. Nutrition history: At home patient eats supper as her only meal of the day. She follows a regular diet. She will either do her own cooking of go out to eat. She will drink 8-10 cups of water a day and drink a can of mount dew every other day. Food Allergies: NKFA Chewing/Swallowing Issues: none ANTHROPOMETRICS: Height: 163 cm Admission Weight: 96 kg (07/13/2024) Current Weight: 99.7 kg BMI (Calculated): 37.5 kg/m?? Weight change since admission: 3.7 kg Weight tends to fluctuate due to fluid per patient report. ESTIMATED NEEDS: Total Calorie Needs: 3151-6305 calories/day Method to Estimate Energy Needs: Sweetser-St Jeor ( ) Weight Used for Equation Calculations: 96 kg Total Protein Needs: 77 - 96 grams/day Method to Estimate Protein Needs (g/kg): 0.8 - 1 gm/kg Weight Used to Calculate Protein Needs (Kg): 96 kg Nutrition Diagnosis: Clinical risk not noted Nutrition Intervention: Medical food supplement Monitoring/Evaluation: Nutrition parameter to monitor: Meals/Supplement Intake, Weight Status CTURAL METAL WORKER * Patrick Mtz M.D., Ph.D. - 07/18/2024 10:56 AM CST I visited face to face with the patient on NT10 this morning. We will obtain an updated chest x-raywith a view towards removing 1 of her chest tubes today. We will follow the recommendations of our Infectious Disease colleagues regarding ongoing antibiotic management. CTURAL METAL WORKER * Magno Fisher, Ph.D. - 07/18/2024 8:59 AM CST 1/13 RA left decortication, anterior and posterior chest tubes Patient overall stable in the morning, no acute events overnight. Pain controlled with current regimen. Chest tubes and DELIA drainage serosanguineously. Ambulance well. BP 116/82 Pulse 103 Temp 36.9 ??C (Oral) Resp 16 Ht 163 cm Wt 99.7 kg SpO2 96% BMI 37.53 kg/m?? I/O last 3 completed shifts: In: 2897.8 [P.O.:2150] Out: 2235 [Urine:2024; Chest Tube:210] Plan: - Two view CXR in the morning - Possible remove anterior chest tube after CXR - PICC for home IV antibiotics per ID suggestion - Encourage ambulance Patient discussed with Dr. Mtz. CTURAL METAL WORKER * Kayleigh Small M.D. - 07/18/2024 8:24 AM CST Infectious Diseases Progress Note Infectious Diseases ICU Consulting Service SUBJECTIVE CHIEF COMPLAINT/REASON FOR VISIT Melinda Kumar is a 39 y.o. female admitted 07/13/2024 being requested to be evaluated by infectious diseases for Acromial recommendations. Events over last 24 h: no events overnight. She was seen today. No new complaints OBJECTIVE PHYSICAL EXAM BP 116/82 Pulse 103 Temp 36.9 ??C (Oral) Resp 16 Ht 163 cm Wt 99.7 kg SpO2 96% BMI 37.53 kg/m?? General: Lying in bed, in no acute distress Mental status: Alert and oriented x 3 Skin: No evidence of drug rash Heart: RRR, no murmurs Lungs: reduce air entry. Chest tube in place Abdomen: Soft, nontender, nondistended Lines, Drains, and Airways Drain Duration Y Chest Tube 1 and 2 1 Pleural 28 Fr 2 Pleural 28 Fr 3d 8h Peripheral IV Duration Peripheral IV 07/14/24 22 G Anterior;Lower;Right Forearm 3d 23h Peripheral IV 07/15/24 18 G Right Wrist 2d 19h Wound Duration Scope Sites Chest 3d 8h Wound 07/17/24 Hand Anterior;Left 23h DIAGNOSTICS I have reviewed diagnostics and pertinent imaging. Estimated Creatinine Clearance: 154 mL/min (A) (by C-G formula based on SCr of 0.57 mg/dL (L)). No results found for the last 90 days. CURRENT MEDICATIONS Present anti-infective therapies include Antibiotics Dose/Rate Route Frequency Stop metroNIDAZOLE tablet 500 mg (FlagyL) 500 mg oral 3 times daily cefTRIAXone in dextrose (iso osm) IVPB 2 g (Rocephin) 2 g 200 mL/hr over 15 Minutes intravenous Every 24 hours ASSESSMENT / PLAN Melinda Kumar is a 39 y.o. female who was admitted with left sided empyema. She underwent decortication on 07/15/2024. Intraoperative gram stain and culture are negative so far. Culture might be affected by prior antibiotic use. We will recommend three week course of antibiotic. Patient will need follow up CXR and ID follow up. Patient was counselled about smoking cessation. ID FOCUSSED ISSUES: Left sided empyema status post decortication on 07/15/2024 Obesity BMI 36.13 Tobacco use disorder RECOMMENDATIONS: Continue ceftriaxone and metronidazole x 3 weeks Patient will need PICC line placement We will arrange for ID follow up and repeat CXR by the end of therapy. We will sign off, please reach out for further questions. Treatment plan reviewed with Ms. Kumar, who expressed understanding. All questions answered to patient's satisfaction. We will follow along closely. Please page the ICU-ID service pager at [phone] with questions. Thank you for the consultation. Discussed with Dr. Camejo, ID therapeutic consultant and the primary team. Kayleigh Small M.D. Infectious Disease fellow Primary service: ID Primary Service Options: Please consult Care Management for dismissal planning INFECTIOUS DISEASES THERAPY RECOMMENDATIONS Antimicrobial plan: Patient will stay on the following antimicrobials: Ceftriaxone 2 gm IV every 24 hours Tentative stop date stop date: 08/05/2024; final stop date to be determined at follow up visit Metronidazole 500 mg orally every 8 hours Tentative stop date stop date: 08/05/2024; final stop date to be determined at follow up visit Lab monitoring while on antimicrobial therapy: Yes, weekly on antibiotics Complete blood count withdifferential, Alanine aminotransferase (ALT), Creatinine, and Alkaline phosphatase. Please fax to division of Infectious Diseases OPAT monitoring program at [phone]. Should patient be enrolled in OPAT/COPAT program: Yes- Adult OPAT Infectious Diseases follow-up: Follow-up: Clinical syndrome requiring follow up: empyema. Follow up with infectious diseases on 08/05/2024. Orders for follow up visit: Imaging studies: Chest XR on 08/05/2024 before appointment. Central catheter management at end of treatment: Central catheter removal decision will be made at follow-up appointment but an appointment for PICC removal should be made for AFTER ID clinical appointment. Cosigned by Hay Camejo M.D., M.S. at 07/18/2024 1:06 PM STRUCTURAL METAL WORKER CTURAL METAL WORKER CTURAL METAL WORKER Associated attestation - Hay Camejo M.D., M.S. - 07/18/2024 1:06 PM STRUCTURAL METAL WORKER I saw and evaluated the patient, participating in the stallworth portions of the service. I reviewed the resident/fellow???s note. I agree with the resident/fellow???s findings and plan. # Left Empyema s/p pleural decortication 07/15/24; microbiologically undefined # Recent influenza A infection in June # Negative MRSA swab # Fibromyalgia on disability # Cigarette use Ms. Kumar is a 39-year-old female admitted to the hospital on July 13 for management of a left-sided empyema with decortication. Cultures are negative to date. ID is involved for antimicrobial management. Unfortunately we were unable to add on a broad range PCR. I reviewed the outside facility documentation and was unable to find any previous positive culture results. As such we will be treating with an empiric regimen for the duration of therapy unless there is late growth from the decortication. Would complete 3 weeks of IV ceftriaxone + PO metronidazole and repeat imaging at the time of follow up. We will sign off. Please see associated note for further details. * Montrell Garland, R.R.T., L.R.T. - 07/17/2024 1:04 PM CST 07/17/24 0930 Pulmonary Rehab Pulmonary Rehab Patient Evaluation Pulmonary rehabilitation ordered;Chart and history reviewed Monitored Exercise Session Details see note $Monitored Exercise Session 45 minutes Inpatient Pulmonary Rehab: Follow-up Needed Yes Inpatient Pulmonary Rehab: Next Date 07/18/24 Inpatient Pulmonary Rehab: Patient to be Seen Next by RT Patient exercised using Nustep Total Body Recumbent Stepper for 7 minutes at a perceived exertion level of 11. Bike resistance used today 0. Supplemental oxygen used: 2 lpm. Resting Blood Pressure: 119/71 Exercise Blood Pressure: 109/75 Resting Heart Rate: 108 per minute. Exercise Heart Rate: 99 per minute. Resting SpO2: 91%. Exercise SpO2: 93%. Upper Extremity Range of Motion not completed. Upper Extremity Strengthening completed using orange band. Lower Extremity Strengthening completed using green band. Lower Extremity Stretches not completed. Electronically signed by: Montrell Garland R.R.T., Christian 07/17/24 1:04 PM STRUCTURAL METAL WORKER CTURAL METAL WORKER * Lopez Garvey M.D. - 07/17/2024 9:19 AM CST Ms. Kumar is POD 2 from left robotic decortication, 2 chest tubes were left in place. Pus pockets were seen in the pleural space Patient is afebrile and hemodynamically stable. Her pain is better controlled this morning. She is otherwise afebrile and hemodynamically stable. She continues on IV antibiotics. She has been tolerating oral intake. She has ambulated. Her 2 chest tubes are connected and had a combined 150 cc of serosanguineous output, no air leak. Intraoperative cultures are pending, Gram stain just shows white blood cells Vitals: 07/17/24 0545 07/17/24 0600 07/17/24 0615 07/17/24 0815 BP: 122/79 119/71 BP Location: Left arm;Upper Left arm;Upper Patient Position: Lying Pulse: 106 104 105 108 Resp: 16 Temp: 36.7 ??C 36.8 ??C TempSrc: Oral Oral Intake/Output Summary (Last 24 hours) at 07/17/2024 0919 Last data filed at 07/17/2024 0811 Gross per 24 hour Intake 5126.41 ml Output 846 ml Net 4280.41 ml Ms. Kumar is POD 2 from left robotic decortication, 2 chest tubes were left in place. She overall is progressing after surgery and remains on IV antibiotics Plan: -transition chest tube is to water seal -Continue IV antibiotics, consult Infectious Disease regarding antibiotic regimen -pain control -Ambulation, incentive spirometer Discussed with Dr. Smith Garvey MD CTURAL METAL WORKER * Jarocho Belle, Eleazar.Ph. - 07/16/2024 1:12 PM CST Pharmacokinetic Consult - Vancomycin Dosing Melinda Kumar is a 39 y.o. female who has received a pharmacy consult for vancomycin therapyfor dose optimization and monitoring. Indication: Respiratory tract infection, healthcare associated Goal trough: 10-15 mcg/mL OBJECTIVE There is no height or weight on file to calculate BMI. [place] body weight: 55.1 kg Adjusted ideal body weight: 71.5 kg Relevant clinical data and objective history reviewed: Temp (24hrs), Av.4 ??C, Min:35.8 ??C, Max:36.8 ??C Leukocytes Date Value Ref Range Status 07/13/2024 17.4 (H) 3.4 - 9.6 x10(9)/L Final 07/11/2024 14.7 (H) 3.4 - 9.6 x10(9)/L Final 12/29/2023 11.3 (H) 3.4 - 9.6 x10(9)/L Final EXT Leukocytes Date Value Ref Range Status 03/04/2022 11.9 (H) 4.5 - 11.0 thou/cu mm Final 08/30/2019 7.3 4.5 - 11.0 thou/cu mm Final 07/02/2019 9.4 4.5 - 11.0 thou/cu mm Final Creatinine (mg/dL) Date Value Status 07/14/2024 0.57 (L) Final 07/11/2024 0.53 (L) Final Estimated Creatinine Clearance: 151 mL/min (A) (by C-G formula based on SCr of 0.57 mg/dL (L)). I/O last 3 completed shifts: In: 3064.4 [P.O.:220] Out: 3700 [Urine:3130; Blood:100; Chest Tube:470] Concurrent antimicrobials: piperacillin-tazobactam, 4.5 g, Q6H vancomycin, 1,500 mg, Q12H Vancomycin levels obtained to date: LYTES - Peak/Trough: --/8.9* (07/16 103) ASSESSMENT / PLAN Vancomycin trough was 8.9 this morning. Goal vancomycin trough of 10-15 mcg/ml. Vancomycin increased to 1900 mg IV q12h Pharmacy will continue to follow the patient's clinical progress daily. Jarocho Belle, R.Ph. CTURAL METAL WORKER * Gema Srinivasan R.R.T., L.R.T. - 07/16/2024 11:34 AM CST 07/16/24 1133 Pulmonary Rehab Pulmonary Rehab Patient Evaluation Pulmonary rehabilitation ordered;Chart and history reviewed;[place] begin education and monitored exercise sessions as tolerated;Program content discussed with patient Monitored Exercise Session Details see note $Monitored Exercise Session 30 minutes Inpatient Pulmonary Rehab: Follow-up Needed Yes Inpatient Pulmonary Rehab: Next Date 07/17/24 Inpatient Pulmonary Rehab: Patient to be Seen Next by RT Pulmonary rehab program explained to patient with booklet. T-bands given, will play to bring patient to the gym 07/17 to initiate pulm rehab exercise program as tolerated. Electronically signed by: Gema Srinivasan R.R.T., L.R.T. 07/16/24 11:34 AM STRUCTURAL METAL WORKER CTURAL METAL WORKER * Lopez Garvey M.D. - 07/16/2024 9:46 AM CST Ms. Kumar is POD 1 from left robotic decortication, 2 chest tubes were left in place Patient is afebrile and hemodynamically stable. She had a DEPUTY SHERIFF BUILDING GUARD started overnight for pain control. She otherwise is doing well. She continues on IV antibiotics. She has been tolerating oral intake. She has ambulated. Her 2 chest tubes are connected and had a combined 360 cc of serosanguineous output, no air leak. Intraoperative cultures are pending, Gram stain just shows white blood cells Vitals: 07/16/24 0800 07/16/24 0915 07/16/24 0930 07/16/24 0940 BP: 117/85 BP Location: Patient Position: Pulse: 96 99 106 108 Resp: 11 15 11 15 Temp: TempSrc: Intake/Output Summary (Last 24 hours) at 07/16/2024 0949 Last data filed at 07/16/2024 0917 Gross per 24 hour Intake 2149.2 ml Output 3610 ml Net -1460.8 ml Ms. Kumar is POD 1 from left robotic decortication, 2 chest tubes were left in place. She overall is progressing after surgery and remains on IV antibiotics Plan: -Continue chest tubes to suction -Continue IV antibiotics, tailor based on intra operative cultures -pain control -Ambulation, incentive spirometer Discussed with Dr. Smith Garvey MD CTURAL METAL WORKER * Patrick Mtz M.D., Ph.D. - 07/16/2024 7:44 AM CST I visited face to face with the patient on NT10 this morning. We reviewed the findings at surgery yesterday and what we were able to accomplish. We will focus on ongoing pain control today. She will likely need our ID colleagues involved in order to help with ongoing antibiotic management. Her drains will remain in place for today. SH * Lopez Garvey M.D. - 07/15/2024 7:36 AM CST Ms. Kumar is a 39-year-old female who was a direct admission from [facility] on for a left-sided empyema. Patient reports feeling well this morning she continues to have pleuritic chest pain. She otherwiseis saturating well on 1 L nasal cannula. She was able to tolerate oral intake yesterday. NPO at midnight. She remains to be hemodynamically stable and afebrile. Recent Results (from the past 24 hours) Staph aureus / MRSA, Nasal, PCR Collection Time: 07/14/24 10:39 AM Specimen: Nares; Swab Result Value Staphylococcus aureus, PCR Negative MRSA, PCR Negative Vitals: 07/15/24 0400 BP: Pulse: Resp: 16 Temp: SpO2: Intake/Output Summary (Last 24 hours) at 07/15/2024 0736 Last data filed at 07/14/2024 1607 Gross per 24 hour Intake 800 ml Output -- Net 800 ml Ms. Kumar is a 39-year-old female who was a direct admission from [facility] on for a left-sided empyema. She will be proceeding to the operating room tomorrow for left VATS decortication. Plan: -continue IV antibiotics -OR today Discussed with Dr. Smith Garvey MD CTURAL METAL WORKER * Lopez Garvey M.D. - 07/14/2024 9:00 AM CST Ms. Kumar is a 39-year-old female who was a direct admission from [facility] on for a left-sided empyema. Patient reports feeling well this morning she continues to have pleuritic chest pain. She otherwiseis saturating well on 1 L nasal cannula. She was able to tolerate oral intake yesterday. She remains to be hemodynamically stable and afebrile. Her labs are notable for a hemoglobin 9.7, white blood cell count of 17.4, creatinine 0.57. She also received a chest x-ray that demonstrated a left- sided pleural effusion. Recent Results (from the past 24 hours) CBC without Differential Collection Time: 07/13/24 8:14 PM Result Value Hemoglobin 9.7 (L) Hematocrit 30.1 (L) Erythrocytes 3.32 (L) MCV 90.7 RBC Distrib Width 15.3 Platelet Count 788 (H) Leukocytes 17.4 (H) Basic Metabolic Panel Collection Time: 07/14/24 4:09 AM Result Value Potassium, S 3.9 Sodium, S 139 Chloride, S 103 Bicarbonate, S 22 Anion Gap 14 BUN (Blood Urea Nitrogen), S 10 Creatinine 0.57 (L) Estimated GFR (eGFR) >90 Calcium, Total, S 9.1 Glucose, S 91 Vitals: 07/14/24 0815 BP: Pulse: 99 Resp: 18 SpO2: 95% Intake/Output Summary (Last 24 hours) at 07/14/2024 0902 Last data filed at 07/14/2024 0145 Gross per 24 hour Intake 260 ml Output -- Net 260 ml Ms. Kumar is a 39-year-old female who was a direct admission from [facility] on for a left-sided empyema. She will be proceeding to the operating room tomorrow for left VATS decortication. Plan: -continue IV antibiotics -regular diet today, NPO at midnight -continue pain control -patient has listed, will be consented and site marked for operating room tomorrow Discussed with Dr. Smith Garvey MD CTURAL METAL WORKER * Maxim Freed Pharm.D., R.Ph., [facility] - 07/14/2024 8:27 AM CST Images from the original note were not included. Pharmacist Progress Note Reason for admission: direct admission from [facility] on July 13 for a left-sided empyema PMH: generalized anxiety disorder, ADHD, major depressive disorder, HTN, fibromyalgia, Hx s/p hysterectomy, pelvic floor pain, chronic interstitial cystitis, asthma, Hx of GI bleed suspected d/u to NSAID, ISAAC, Fracture Fifth Metacarpal Base Nondisplaced Subsequent With Routine Healing Right OBJECTIVE Scheduled home medications: Held: vitamin D, dextroamphetamine, Adderall, elagolix, estradiol vaginal cream, Advair, fluticasone nasal spray, guaifenesin, levofloxacin, lisinopril, multivitamin, nitrofurantoin, trazodone Changed: none New: acetaminophen, Zosyn, sennosides, vancomycin VTE prophylaxis: heparin 5000 units subcutaneous q8hr ID: Outpt on nitrofurantoin chronic suppression of UTI (non-compliant, currently out of supply) Outpt doxycycline (likely around 07/04-07/09) > levofloxacin (07/12 first dose and the only dose prior to this admission) Zosyn (pneumonia/empyema, 07/13-) Vancomycin (pneumonia/empyema, 07/13-) Vancomycin Vancomycin indication: pneumonia/empyema Goal trough: 10-20 Renal replacement therapy: None Estimated Creatinine Clearance: 151 mL/min (A) (by C-G formula based on SCr of 0.57 mg/dL (L)). No results found for: VANCOTROUGH, VANCORANDOM, VANCOPEAK Date Vancomycin dose Trough (mcg/mL) sCr (mg/dL) /eCrCL by C-G (mL/min) 07/13 start 1000 mg IV q12hr N/a 0.53/ 162.1 07/14 1500 mg IV q12hr 0.57/ 151 07/16 pending ASSESSMENT / PLAN Considering good renal fx, would anticipate low vancomycin trough with current vancomycin dosing, thus will empirically increase dose to 1500 mg IV q12hr, and would f/u vancomycin trough more frequent initially after reaching steady state to observe any accumulation of vancomycin considering BMI 36. Would plan vancomycin trough prior to the 4th dose of the new dosing. Noticed higher risk of nephrotoxicity with vancomycin/Zosyn combo, would f/u appropriate time to de- escalate if possible. Ordered MRSA nasal swab. Planned left VATS decortication tomorrow. Medications and laboratory data have been reviewed. Pharmacy will continue to follow for medicationuse optimization Ken Freed PharmDmitryD., R.Ph., BCPS Admission Medication History Note Adherence issues: Ran out of chronic suppression nitrofurantoin more than one month ago Medication list source: Patient, recent filling Hx Medication related information: pt is ok to do without dextroamphetamine 15 mg ER and Adderall 10 mg while hospitalized Prior to Admission Medications Med List Status: Pharmacy Complete Set By: Maxim Freed, PharmDmitryDDmitry, R.Ph., BCPS at 07/14/2024 8:25AM Taking? Last Dose Informant Start Date End Date LT acetaminophen (TYLENOL) 500 mg tablet 07/12/2024 Self 08/13/19 -- Take 1,000 mg by mouth every 6 (six) hours as needed for pain. albuterol 2.5 mg /3 mL nebulizer solution -- Self 06/11/24 -- Inhale 3 mL (2.5 mg total) by nebulization every 4 (four) hours as needed for wheezing or shortnessof breath. buPROPion XL (WELLBUTRIN XL) 150 mg 24 hr tablet 07/13/2024 at Morning Self 01/23/23 -- Take 1 tablet (150 mg total) by mouth every morning. Take with 300 mg tablet for a total daily doseof 450 mg. buPROPion XL (WELLBUTRIN XL) 300 mg 24 hr tablet 07/13/2024 at Morning Self 01/23/23 -- Take 1 tablet (300 mg total) by mouth every morning. Take with 150 mg tablet for a total daily doseof 450 mg daily. cholecalciferol (VITAMIN D3) 50 mcg (2,000 Unit) capsule -- Self 09/03/22 -- Take 50 mcg by mouth daily. dextroamphetamine sulfate (Dexedrine Spansule) 15 mg ER capsule 07/12/2024 at Morning Self 11/30/23 -- Take 1 capsule by mouth every morning. 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 elagolix (Orilissa) 150 mg tablet tablet 07/12/2024 at Morning Self 03/15/23 -- Take 1 tablet (150 mg total) by mouth daily. estradioL (ESTRACE) 0.1 mg/g (0.01%) vaginal cream -- Self 04/15/22 -- Insert 1 g into the vagina 3 (three) times a week. Nightly for first week. Notes: MWF fluticasone propion-salmeteroL (Advair HFA) 115-21 mcg/actuation inhaler -- Self 10/26/22 -- Inhale 2 puffs 2 (two) times a day. fluticasone propionate (Flonase) 50 mcg/actuation nasal spray 07/13/2024 at Morning Self 06/11/24 07/14/24 Administer 2 sprays into each nostril daily for 10 days. guaiFENesin (Mucinex) 600 mg 12 hr tablet 07/13/2024 at Morning Self -- -- Take 1,200 mg by mouth 2 (two) times a day. ipratropium-albuteroL (DuoNeb) 0.5-2.5 mg/3 mL nebulizer solution -- Self 06/11/24 -- Inhale 3 mL by nebulization 4 (four) times a day as needed for shortness of breath. levoFLOXacin (Levaquin) 750 mg tablet 07/12/2024 at Morning Self 07/11/24 -- Take 1 tablet (750 mg total) by mouth daily before morning meal. Notes: 07/14/24: Per pt, took first dose on 07/12 am lidocaine (Lidoderm) 5 % adhesive patch,medicated 07/13/2024 at Bedtime Self 07/11/24 -- Place 1 patch on the skin daily. Apply to painful area 12 hours per day, remove for 12 hours. Notes: Apply to left side waist lisinopriL 10 mg tablet 07/13/2024 at Morning Self 02/08/24 -- Take 1 tablet (10 mg total) by mouth daily. LORazepam (Ativan) 0.5 mg tablet -- Self 08/17/23 -- Take 0.5 mg by mouth daily as needed for anxiety. multivitamin capsule -- Self -- -- Take 1 capsule by mouth daily. nitrofurantoin (MACRODANTIN) 50 mg capsule More than a month Self 04/21/23 -- TAKE ONE CAPSULE BY MOUTH ONE TIME DAILY Notes: 07/14/24: per pt, she's supposed to be on chronic suppression with nitrofurantoin but she ranout of supply more than one month ago, and with the ongoing illness she just forgot about refillingit. Usually takes it in the am. polyethylene glycol (MIRALAX) 17 gram/dose oral powder -- Self 03/15/23 -- Take 17 g by mouth daily. Dissolve each 17 g dose in 240 mL (8 ounces) of beverage. Patient taking differently: Take 17 g by mouth daily as needed for constipation. Dissolve each 17 gdose in 240 mL (8 ounces) of beverage. pregabalin (Lyrica) 200 mg capsule 07/13/2024 at Noon Self 03/21/24 -- Take 1 capsule (200 mg total) by mouth 3 (three) times a day. traZODone (DESYREL) 50 mg tablet 07/12/2024 at Bedtime Self 10/13/21 -- TAKE 1-4 TABLETS BY MOUTH ONCE DAILY AT BEDTIME. Notes: 07/14/24: recently usually takes 4 tabs Ventolin HFA 90 mcg/actuation inhaler -- Self 03/05/24 -- INHALE 2 PUFFS EVERY 4 HOURS NEEDED FOR WHEEZING OR SHORTNESS OF BREATH. Notes: May substitute generic Proair, generic Ventolin or generic Proventil as appropriate for patient or insurance preference Vraylar 4.5 mg capsule 07/12/2024 at Bedtime Self 10/11/22 -- Take 4.5 mg by mouth at bedtime. Medications Discontinued During This Encounter Medication Reason fluticasone propionate (FLOVENT DISKUS) 100 mcg/actuation diskus inhaler Alternate therapy Ken Freed Pharm.D., R.Ph., BCPS The information and recommendations contained in this note are based on information available at the time of documentation. CTURAL METAL WORKER documented in this encounter H&P Notes * Lopez Garvey M.D. - 07/13/2024 7:38 PM CST History and Physical SUBJECTIVE Chief Complaint:pleuritic chest pain HPI: Melinda Kumar is a 39 y.o. female with a past medical history significant for fibromyalgia, chronic back pain, asthma, sleep apnea, hypertension, depression who was directly admitted for left empyema. Patient presented at the end of June to [facility] initially with pneumonia, following influenza A infection. She was given oral antibiotics. She presented several days later with sepsis secondary to a left lower lobe pneumonia. She was stabilized on IV antibiotics and IV steroids. She was discharged on July 04 on oral antibiotics. After discharge she continued to feel poorly with shortness of breath and pleuritic chest pain. Due to worsening symptoms she presented again to [facility] where she underwent a CT scan that showed a worsening left pleural effusionand empyema. She is being transferred for management of her empyema. Her most recent labs at outside hospital include a white blood cell count of 15. She was afebrile and hemodynamically stable, satur ating 93% on room air. On exam she is afebrile with mild tachycardia, she is otherwise hemodynamically stable and on room air Pertinent History Review: Past Medical History: fibromyalgia, chronic back pain, asthma, sleep apnea, hypertension, depression Past Surgical History: hysterectomy, c sections Medications: Denies use of blood thinners or immunomodulators including steroids. Full History per EMR: Past Medical History: Diagnosis Date Anemia Anxiety Generalized Disorder Apnea Sleep Obstructive Asthma NOS Blood Transfusion No Diagnosis Depressive Disorder Fibromyalgia Hypertension NOS Hypothyroidism Infection Urinary Tract Acute Migraine Headache Stone Kidney Zoster Without Complications Past Surgical History: Procedure Laterality Date BLADDER SURGERY 1997 SECTION 07/26/2006 SECTION 10/22/2008 SECTION 02/03/2014 CYSTOSCOPY WITH INJECTION THERAPEUTIC AGENT N/A 06/30/2023 Procedure: CYSTOSCOPY WITH INJECTION THERAPEUTIC AGENT; Surgeon: Yobany Soares M.D., Ph.D.; Location: [facility] OR HYDRODISTENSION BLADDER WITH CYSTOSCOPY N/A 06/30/2023 Procedure: HYDRODISTENSION BLADDER WITH CYSTOSCOPY; Surgeon: Yobany Soares M.D., Ph.D.; Location: [facility] OR INJECTION BOTOX Bilateral 06/30/2023 Procedure: INJECTION BOTOX PELVIC FLOOR; Surgeon: Yobany Soares M.D., Ph.D.; Location: [facility] OR OTHER SURGICAL HISTORY 10/2017 Hysterectomy that didn't go well. TOTAL HYSTERECTOMY 2018 URETER SURGERY 1998 No current facility-administered medications for this encounter. 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 Apply to painful area 12 hours per day, remove for 12 hours., Disp: 10 patch, Rfl: 0 lisinopriL 10 mg tablet, Take 1 tablet [...] MOUTH ONE TIME DAILY*, Disp: , Rfl: Allergies Allergen Reactions Blood-Group Specific Substance Other (see comments) ..Patient has warm Auto antibody. Blood products may be delayed. Draw patient 24 hours prior to transfusion. Draw one red top and two purple top tubes for all type and screen orders. reports that she has quit smoking. Her smoking use included cigarettes. She started smoking about 3weeks ago. She has a 0.1 pack-year smoking history. She has been exposed to tobacco smoke. She has never used smokeless tobacco. She reports current alcohol use. She reports that she does not currently use drugs. family history includes Alcohol abuse in her mother; Anxiety disorder in her maternal grandmother and mother; Breast cancer in her maternal grandmother; Depression in her maternal grandmother and mother; Hypertension in her maternal grandmother and mother; Sleep apnea in her mother; Stroke in her maternal grandmother; Thyroid disease in her mother. ROS A complete 10 system review of systems was completed. Pertinent positive and negative are noted in the HPI above. OBJECTIVE Temperature: [36.7 ??C] 36.7 ??C Heart Rate: [111] 111 Resp Rate: [26] 26 Blood Pressure: (145)/(95) 145/95 SpO2: [93 %] 93 % Physical Exam: Constitutional Appearance: Normal appearance. Pulmonary Effort: Pulmonary effort is normal. No respiratory distress. Breath sounds: No wheezing. Abdominal General: There is no distension. Palpations: Abdomen is soft. Musculoskeletal Cervical back: Normal range of motion. Skin General: Skin is warm and dry. Capillary Refill: Capillary refill takes less than 2 seconds. Neurological Mental Status: She is alert. LABS: Please see the record for full details No results for input(s): HGB, PLT, WBC in the last 48 hours. No results for input(s): NA, K, CL, HCO3, BUN, CREATININE, GLUCOSE in the last 48 hours. MICROBIOLOGY: No results found for this visit on 07/13/24 (from the past 72 hours). IMAGING: Imaging was independently reviewed. No results found. ASSESSMENT / PLAN Melinda Kumar is a 39 y.o. female with a past medical history significant for fibromyalgia, chronic back pain, asthma, sleep apnea, hypertension, depression who was directly admitted for left empyema. PLAN: -IV antibiotics -plan for operating room on Monday for VATS decortication -general diet -respiratory hygiene -restart home medications -patient will be listed and consented for operating room Discussed with Dr. Smith Garvey MD CTURAL METAL WORKER documented in this encounter Procedure Notes * Rayo Finch, R.N. - 07/18/2024 8:43 PM CSTAssociated Order(s): Place peripherally inserted central catheter (PICC) Place peripherally inserted central catheter (PICC) Performed by: Rayo Finch R.N. Authorized by: Eveline Mariscal P.A.-C. Care team members present 1. Rayo Finch R.N. 2. Chas Torrez VA-BC, R.N., CRNI PROCEDURE DETAILS Select line: PICC Line type: [...] with ultrasound and measured to ensure appropriate [id number] ratio of 45% or less: Right Basilic 0.45cm Tissue adhesive has been applied to your catheter insertion site for securement, stabilization, andsealant. The purpose of the tissue adhesive is to reduce bleeding, reduce catheter movement/dislodgement, and protect the site from contamination. The tissue adhesive takes the place of a chlorhexidine gluconate (CHG) disk or dressing and also any other devices used for securement. Tissue adhesive will remain attached to the skin surface until natural cellular regeneration occurs(approx. 5-7 days). It is intended to be used with a transparent film dressing. Site care is recommended every 7 days. If tissue adhesive is not reapplied at the time of site care, please assess, clean, and dress the site per institutional guidelines. Residual tissue adhesive on the catheter tubing or skin during the dressing change does NOT need lucrecia removed. If needed, any medical adhesive remover product may be used to release the adhesive from the skin. http://[employer]ze/products/secureportiv CTURAL METAL WORKER documented in this encounter Consult Notes * Karen Wilkerson M.S.W., HamletSDmitryW. - 07/18/2024 12:33 PM CSTAssociated Order(s): IP CONSULT TO CARE MANAGEMENT Psychosocial Assessment SUBJECTIVE ASSESSMENT INFORMATION Referral Data Referral Source: [employer]NCE/PA Referral Reason: Psychosocial assessment, Discharge Planning Previous Assessment: No Boat Detailer Services Used: No Primary Language: Guyanese Boat Detailer Services Used: No Sexuality/Pronoun: Straight / Person(s) present during interview: patient Disclaimer: They were advised of the various topics that will be assessed during this evaluation. They consented to proceed. The information provided in the assessment is based on review of the medical record as well as the face to face interview. They were advised that the content of this interview will be shared with the health care team and documented in the medical record. They were advised that anyone with access to their patient portal will have access to this information. It was discussed that staff are mandated reporters and they reported understanding. HISTORY OF PRESENT ILLNESS Patient is currently hospitalized at [facility] on [facility] [address]. Patient shares that she cameto the hospital for Pneumonia. SOCIAL HISTORY Family / Household: Patient reports living in a multi level town home with her 4 sons ages 17, 17, 15 and 10. Support System: 4 children and family in [place] Spirituality/Scientology/Cultural Factors: None History: No Employment: disabled Psychosocial Risk Factors Impacting the Patient: none Trauma: none reported Social Drivers of Health with Concerns Housing Stability: Medium Risk (07/15/2024) Housing Stability Housing: Living Situation: I have a place to live today, but I am worried about losing it in the future Food Insecurity: Food Insecurity Present (07/15/2024) Hunger Vital Sign Worried About Running Out of Food in the Last Year: Sometimes true Ran Out of Food in the Last Year: Sometimes true Current Stressors Current hospitalization and medical condition Coping Skills/Strengths Prior level of functioning Family support OBJECTIVE FINANCES/INSURANCE Primary insurance: [employer] HMO Secondary insurance: N/A Financial concerns: No ADVANCE DIRECTIVES Legal Decision Maker: Self Advance Directives: N/A Advance Directives Status: N/A BASELINE FUNCTIONAL STATUS Baseline Activities of Daily Living Mobility: Independent Dressing: Independent Feeding: Independent Bathing: Independent Grooming: Independent Toileting: Independent Behavior: Pleasant, Calm, Appropriate, Oriented, Cooperative Communication: Can write, Talks, Understands speaking, Understands Guyanese Shopping: Needs assistance Medication Management: Independent Housekeeping: Needs assistance Meal Prep: Independent Assistive Devices: None BASELINE SERVICES/RESOURCES Primary care clinic and provider: [facility] Pathak[facility] P[facility]. Services/Resources: No services or resources prior to hospitalization. ANTICIPATED NEEDS Anticipated Needs Functional Status: None Assistive Devices: None Anticipated Modifications to the Patient's Home: None Transportation Needs: Support from family Does the patient need discharge transport arranged?: No Anticipated Discharge Destination: Home or Self Care MENTAL HEALTH Mental Health History: Patient shared that her mood is okay. Patient reports having depression and ADHD. She shares thatshe takes medication and feels that it helps manage her symptoms. Suicide Risk and Safety Risk Assessment: Suicidal: No Homicidal: No Mental Status: Orientation: Oriented to person, place and time Level of consciousness: Awake and alert Appearance: Well-groomed Behavior observed: Calm Memory: intact Cooperation: Cooperative Concentration: Intact Mood: Okay, Calm, and Fine Affect: Flat Speech: Within normal limits for volume, rate and tone. Thought content: Does not appear to respond to internal stimuli Thought process: Logical, linear, and goal-directed Judgement: Intact Insight: Intact Review of Psychiatric Symptoms: Sleep/insomnia: no sleep concerns Appetite/weight: decreased Anxiety symptoms: no symptoms of anxiety Depression symptoms: no symptoms Other Mental Health Assessments No other mental health assessments completed at this time. SUBSTANCE USE Patient shares that she recently stopped smoking nicotine. Patient shares that she drinks alcohol socially. Patient reports no concerns with her current substance use. ASSESSMENT / PLAN DISCUSSION Decorating Equipment Setter met with patient in hospital room to provide a supportive visit, complete a psychosocial, and assist with discharge needs. Introduced self and reviewed role of inpatient Social Work, including legal responsibility as a mandated line service attendant. Patient expressed understanding of the purpose of this visit and was open to having a conversation. Patient reports living in a multi level town home with her 4 sons ages 17, 17, 15 and 10. Patient reports being mostly independent in her ADLs/IADLs. Expressing that she does have some difficulties with tasks that she has to stand for longer periods. Patient shared that her mood is okay. Patient reports having depression and ADHD. She shares thatshe takes medication and feels that it helps manage her symptoms. Patient shares that she recently stopped smoking nicotine. Patient shares that she drinks alcohol socially. Patient reports no concerns with her current substance use. Patient denies current concerns regarding mental health, suicidalideation/intent, abuse/neglect or substance use. A list of infusion options (that they geographically reside or requested) has been verbally reviewed with patient. Disclaimers: Financial disclosure provided informing patient of our ownership and financial relationship of the [facility] beds, home health, and hospice agencies. Reviewed [facility] medicaid insurance coverage and provided in-network options. Patient anticipates discharging home once medically ready without patient infusions at [facility]. Patient reports no further questions currently. Encouraged patient to contact Decorating Equipment Setter should additional needs arise. gaming cage worker returned to inform patient that replaced by [facility] is not open on weekends and that she willneed to go to [place]. Patient was agreeable to this. Patient's mother was in the room and shared that she had a question for group social worker. Patient's mother asked about help with cleaning around the home. gaming cage worker [place] Otherwise explaining that those services would be an out of pocket cost. Patient and patient's mother expressed understanding and reported no further questions. IMPRESSION Patient was resting awake and alert in her hospital bed. Patient and patient's mother were engaged in conversation and displayed socially appropriate eye contact. Patient appears to be coping with current hospitalization. Patient appears to have an understanding of her medical condition and is planning for eventual discharge. INTERVENTIONS Introduced role of social work Assessed needs Discharge planning Supportive, reflective, and empathetic listening Strengths based Rapport building Solution focused Education provided regarding the [place] LinkAge Line. The Patient was not provided due to not being a [place] resident and/or 60 + years old. PLAN Outpatient infusions will be obtained through: [place] Monday- Monday and [facility] [address] [facility] on Weekends. Phone for scheduling- [phone] Phone for [phone] NURSING: - Call to arrange for the patient???s first visit Prior to 3 pm Monday if Discharging over the weekend. - Adjust the dosing schedule to accommodate [facility] schedule. - Complete documentation in the Discharge Navigator including Nursing Report Info and Facility/NextLevel of Care Info PRIMARY SERVICE: - Complete infusion therapy and lab orders in [facility] as needed. - Identify the continuing care provider, who will follow the patient while receiving outpatient infusion at [facility]. Social Work : -Will continue to follow. Anticipated barriers to the transition of care/plan: None identified at this time. Destiny Gonzales, [place].I.C.S.W. 07/18/2024 CTURAL METAL WORKER CTURAL METAL WORKER * Kayleigh Small M.D. - 07/17/2024 10:59 AM CSTAssociated Order(s): IP CONSULT TO INFECTIOUS DISEASES Infectious Diseases ICU Consulting Service Consult Note SUBJECTIVE REASON FOR CONSULT We are seeing Ms. Kumar at the request of Patrick Mtz M.D., Ph.* to give further recommendations for evaluation and management of Acromial recommendations. HISTORY OF PRESENT ILLNESS Melinda Kumar is a 39 y.o. female with past medical history of fibromyalgia, chronic back pain, asthma, sleep apnea, hypertension, depression who was admitted for left empyema. Interval history includes initial presentation to [facility] ED 06/26/2024 and was prescribed azithromycin and prednisone for walking pneumonia. She was admitted to [facility] 06/30/2024-07/04/2024 with sepsis secondary to left lower lobe pneumonia and was treated with IV antibiotics and IV steroid. She was discharged on 07/04/2024 on oral antibiotics (doxycycline for 5 days. After d ischarge patient continued continued to have shortness of breath and left pleuritic chest pain. Dueto worsening in symptoms she presented again to [facility] where she underwent CT chest which showed worsening left pleural effusion and empyema. [facility] She underwent left robotic VATS decortication on 07/15/24. Pus pockets were seen in pleural space status post 2 chest tube placement. Intraopeative culture The following portions of the patient's history were reviewed: allergies All other systems reviewed and are negative. OBJECTIVE PHYSICAL EXAMINATION Vital Signs: I have reviewed the current vital sign data as applicable. Constitutional Appearance: She is obese. She is not ill-appearing or diaphoretic. Pulmonary Effort: Pulmonary effort is normal. Comments: Reduced air entry Chest tube in situ DIAGNOSTICS I have reviewed diagnostics including available labs, microbiology and radiology. Microbiology Results (last 30 days) Procedure Component Value - Date/Time Bacterial Culture, Anaerobic + Susceptibility [[id number]] Collected: 07/15/24 1600 Lab Status: Preliminary result Specimen: Tissue from Pleura, Left Updated: 07/17/24 0739 Bacterial Culture, Anaerobic + Susc No growth to date. Fungal Culture, Routine [[id number]] Collected: 07/15/24 1600 Lab Status: In process Specimen: Tissue from Pleura, Left Updated: 07/15/24 1720 Gram Stain [[id number]] Collected: 07/15/24 1600 Lab Status: Final result Specimen: Tissue from Pleura, Left Updated: 07/15/24 2218 Gram Stain No organisms seen. White blood cells, Many Acid Fast Smear for Mycobacterium [[id number]] Collected: 07/15/24 1600 Lab Status: Final result Specimen: Tissue from Pleura, Left Updated: 07/15/24 2218 Acid Fast Smear For Mycobacterium Negative. Legionella Culture [[id number]] Collected: 07/15/24 1600 Lab Status: Preliminary result Specimen: Tissue from Pleura, Left Updated: 07/17/24 0754 Legionella Culture No growth to date. Fungal Smear [[id number]] Collected: 07/15/241599 Lab Status: Final result Specimen: Tissue from Pleura, Left Updated: 07/16/24 0852 Fungal Smear Negative. Mycobacterial Culture [[id number]] Collected: 07/15/24 1600 Lab Status: In process Specimen: Tissue from Pleura, Left Updated: 07/15/24 1720 Actinomyces Culture [[id number]] Collected: 07/15/24 1600 Lab Status: Preliminary result Specimen: Tissue from Pleura, Left Updated: 07/17/24 0739 Actinomyces Culture No growth to date. Bacterial Culture, Aerobic + Susceptibility [[id number]] Collected: 07/15/24 1600 Lab Status: Preliminary result Specimen: Tissue from Pleura, Left Updated: 07/17/24 0847 Bacterial Culture, Aerobic + Susc No growth to date. Fungal Culture, Routine [[id number]] Collected: 07/15/24 1424 Lab Status: In process Specimen: Pleural Fluid, Left Updated: 07/15/24 1519 Narrative: Bacterial Culture: Placed in Bactec aerobic and Bactec anaerobic bottles Gram Stain [[id number]] Collected: 07/15/24 142 Lab Status: Final result Specimen: Pleural Fluid, Left Updated: 07/15/24 2002 Gram Stain No organisms seen. White blood cells, Moderate Narrative: Bacterial Culture: Placed in Bactec aerobic and Bactec anaerobic bottles Acid Fast Smear for Mycobacterium [[id number]] Collected: 07/15/24 1424 Lab Status: Final result Specimen: Pleural Fluid, Left Updated: 07/15/24 2125 Acid Fast Smear For Mycobacterium Negative. Narrative: Bacterial Culture: Placed in Bactec aerobic and Bactec anaerobic bottles Fungal Smear [[id number]] Collected: 07/15/24 1424 Lab Status: Final result Specimen: Pleural Fluid, Left Updated: 07/15/24 1925 Fungal Smear Negative. Narrative: Bacterial Culture: Placed in Bactec aerobic and Bactec anaerobic bottles Mycobacterial Culture [[id number]] Collected: 07/15/24 1424 Lab Status: In process Specimen: Pleural Fluid, Left Updated: 07/15/24 1519 Narrative: Bacterial Culture: Placed in Bactec aerobic and Bactec anaerobic bottles Bacterial Culture, Aerobic + Susceptibility [[id number]] Collected: 07/15/24 1424 Lab Status: Preliminary result Specimen: Pleural Fluid, Left Updated: 07/17/24 0847 Bacterial Culture, Aerobic + Susc No growth to date. Narrative: Bacterial Culture: Placed in Bactec aerobic and Bactec anaerobic bottles Staph aureus / MRSA, Nasal, PCR [[id number]] Collected: 07/14/24 1039 Lab Status: Final result Specimen: Swab from Nares Updated: 07/14/24 1255 Staphylococcus aureus, PCR Negative MRSA, PCR Negative No results found for the last 90 days. Antibiotics Dose/Rate Route Frequency Stop vancomycin 1,900 mg in NaCl 0.9% IVPB (Vancocin) 1,900 mg 260 mL/hr over 120 Minutes intravenous Every 12 hours piperacillin-tazobactam in dextrose (iso osm) IVPB 4.5 g (Zosyn) 4.5 g 200 mL/hr over 0.5 Hours intravenous Every 6 hours Estimated Creatinine Clearance: 151 mL/min (A) (by C-G formula based on SCr of 0.57 mg/dL (L)). ASSESSMENT / PLAN Melinda Kumar is a 39 y.o. female was admitted with left sided empyema. She underwent decortication on 07/15/2024. Intraoperative gram stain and culture are negative so far. Culture might be affected by prior antibiotic use. Unfortunately broad range bacterial PCR was not send. Given MRSA screen was negative, I believe we can stop vancomycin. We also would like to stop piperacillin-tazobactam and transition to ceftriaxone IV and metronidazole. ID FOCUSSED ISSUES: Left sided empyema status post decortication on 07/15/2024 Obesity BMI 36.13 Recommendations: Please stop vancomycin and piperacillin-tazobactam Start ceftriaxone 2 g IV every 24 hours Start metronidazole 500 mg oral every 8 hours Follow intraoperative cultures We will follow Treatment plan reviewed with Ms. Kumar, who expressed understanding. All questions answered to patient's satisfaction. We will follow along closely. Please page the ICU-ID service pager at [phone] with questions. Thank you for the consultation. Discussed with Dr. Camejo, ID therapeutic consultant and the primary team. Kayleigh Small M.D. Infectious Diseases Fellow Cosigned by Hay Camejo M.D., M.S. at 07/17/2024 2:43 PM STRUCTURAL METAL WORKER CTURAL METAL WORKER CTURAL METAL WORKER Associated attestation - Hay Camejo M.D., M.S. - 07/17/2024 2:43 PM STRUCTURAL METAL WORKER I saw and evaluated the patient, participating in the stallworth portions of the service. I reviewed the resident/fellow???s note. I agree with the resident/fellow???s findings and plan. # Left Empyema s/p pleural decortication 07/15/24; microbiologically undefined # Recent influenza A infection in June # Fibromyalgia on disability # Cigarette use Ms. Kumar is a 39-year-old female admitted to the hospital on July 13 for management of a left-sided empyema. Her history starts in early June when she was seen with upper respiratory tract symptoms. She was given a prescription for azithromycin. If some point, she was admitted to [facility] at the end of June for sepsis secondary to left lower lobe pneumonia. It does not appear as though any cultures were positive. She presented to outpatient clinic on July 11. There was concern for parapneumonic effusion or empyema. She was referred to thoracic surgery for decortication. This was performed on July 15.Multiple cultures were sent. These are in process. Infectious disease today is asked for recommendations for antibiotics. At this point, with negative MRSA swab and no growth on cultures, favor changing to Recommendations - Please screen patient for HIV - Discontinue vancomycin, piperacillin-tazobactam - Start ceftriaxone 2g IV q24 - Start metronidazole 500 mg po TID - Follow up pending cultures; I have requested an add-on broad range bacterial PCR - anticipate patient will leave the hospital with parenteral antibiotics with tentative 3 week duration We will follow documented in this encounter Nursing Notes * Isis Flaherty, R.N. - 07/20/2024 6:45 AM CST Shift Goals: Clinical Goals for the Shift: Patient will report pain control Identify possible barriers to meeting goals/advancing plan of care: None End of Shift Summary: VSS and pain well controlled with oxy, tylenol, robaxin, and ibuprofen. She ambulated safely and independently. Noc study was completed and pt qualified for 1L NC. Isis Flaherty R.N. Problem: PAIN - ADULT Goal: PT VERBALIZES/DEMONSTRATES ADEQUATE COMFORT LEVEL OR BASELINE Outcome: Progressing Problem: KNOWLEDGE DEFICIT Goal: Patient/family/caregiver demonstrates understanding of disease process, treatment plan, medications, and discharge instructions Outcome: Progressing Problem: INFECTION - ADULT Goal: Absence of infection during hospitalization Outcome: Progressing Problem: SKIN/TISSUE INTEGRITY Goal: Skin/Tissue integrity maintained or improved Outcome: Progressing Goal: Oral and Nasal mucous membranes remain intact Outcome: Progressing Problem: SAFETY ADULT Goal: Maintain a safe environment Outcome: Progressing CTURAL METAL WORKER * Malcolm Cordon R.N. - 07/19/2024 4:47 PM CST Shift Goals: Clinical Goals for the Shift: Patient will report pain control Identify possible barriers to meeting goals/advancing plan of care: End of Shift Summary: Patient reported pain control today with oxy, tylenol and robaxin. Pt was able to ambulate in hallway 3x. PT remained VSS on 1L O2. Plan to DC home tomorrow (07/20). Malcolm Cordon R.N. CTURAL METAL WORKER * Shawna Little R.N., C.M.S.R.NDmitry - 07/17/2024 10:01 PM CST Shift Goals: Clinical Goals for the Shift: Pt will state pain is tolerable after discontinuing DEPUTY SHERIFF BUILDING GUARD. Identify possible barriers to meeting goals/advancing plan of care: postop pain End of Shift Summary: Goal met. Pt ambulated in the cavazos twice this evening and sat in the chair for meal. Pt had a BM this evening. Chest tube remains intact with minimal output. Problem: PAIN - ADULT Goal: PT VERBALIZES/DEMONSTRATES ADEQUATE COMFORT LEVEL OR BASELINE Outcome: Progressing Note: Pt rated pain 6-9/10 during shift. Ice pack utilized. DEPUTY SHERIFF BUILDING GUARD DC'd. Scheduled Tylenol given. PRN oxycodone, Robaxin and Toradol given along with one dose of PRN IV Dilaudid. Pt able to rest/sleep between cares. Problem: SAFETY ADULT Goal: Maintain a safe environment Outcome: Progressing Note: Pt up with one assist and podium walker. Pt using call light appropriately. Bed alarm utilized at night. A safe environment was maintained and free of falls. Problem: RESPIRATORY - ADULT Goal: Achieves optimal ventilation and oxygenation Outcome: Progressing Note: Pt was on 2 L NC; weaned to 1 L NC. Attempted patient on room air but sat 87-88% on room air.Pt remains on 1 L NC to maintain O2 SATS above 90% Encouraged incentive spirometer use. CTURAL METAL WORKER * Bhumi Chawla R.NDmitry - 07/17/2024 5:43 AM CST Shift Goals: Clinical Goals for the Shift: Patient will get adequate rest overnight and report good pain control Identify possible barriers to meeting goals/advancing plan of care: None End of Shift Summary: Sasha slept well overnight in between cares. Pain controlled with DEPUTY SHERIFF BUILDING GUARD, PRN Robaxin and scheduled tylenol. She ambulated to the bathroom multiple times with one assist. Chest tuberemained to suction with no air leak and minimal output. Vital signs stable. Weaned to 1L O2. Problem: PAIN - ADULT Goal: PT VERBALIZES/DEMONSTRATES ADEQUATE COMFORT LEVEL OR BASELINE Outcome: Progressing Problem: KNOWLEDGE DEFICIT Goal: Patient/family/caregiver demonstrates understanding of disease process, treatment plan, medications, and discharge instructions Outcome: Progressing Problem: INFECTION - ADULT Goal: Absence of infection during hospitalization Outcome: Progressing Problem: SKIN/TISSUE INTEGRITY Goal: Skin/Tissue integrity maintained or improved Outcome: Progressing Goal: Oral and Nasal mucous membranes remain intact Outcome: Progressing Problem: SAFETY ADULT Goal: Maintain a safe environment Outcome: Progressing Problem: DISCHARGE PLANNING Goal: Patient discharge needs identified Outcome: Progressing Problem: SAFETY ADULT - RISK FOR FALL AND OR FALL INJURY Goal: Patient remains free from fall/fall injury Outcome: Progressing Problem: RESPIRATORY - ADULT Goal: Achieves optimal ventilation and oxygenation Outcome: Progressing CTURAL METAL WORKER * Diane Blevins R.N. - 07/15/2024 1:15 PM CST Patient came to OR with personal belongings including 4 earrings and 1 ring/piercing. Sent with patient on chart. Roxanne Blevins RN CTURAL METAL WORKER * Candi Leonard R.N. - 07/15/2024 6:24 AM CST Shift Goals: Clinical Goals for the Shift: Patient will have adequate pain management, vitally stable Identify possible barriers to meeting goals/advancing plan of care: none End of Shift Summary: Patient had adequate pain management, with PRN Dilaudid. Vitally stable. Problem: PAIN - ADULT Goal: PT VERBALIZES/DEMONSTRATES ADEQUATE COMFORT LEVEL OR BASELINE Outcome: Progressing Problem: KNOWLEDGE DEFICIT Goal: Patient/family/caregiver demonstrates understanding of disease process, treatment plan, medications, and discharge instructions Outcome: Progressing Problem: INFECTION - ADULT Goal: Absence of infection during hospitalization Outcome: Progressing CTURAL METAL WORKER * Helena Brady R.N. - 07/14/2024 6:41 PM CST Shift Goals: Identify possible barriers to meeting goals/advancing plan of care: None End of Shift Summary: Patient remained vitally stable during the shift. Patient reports pain ranging from 8-10, with oxycodone, tylenol, and dilaudid given. Patient denies any of these medications improving pain. Patient is to go to the OR tomorrow, and to be NPO at midnight. Problem: PAIN - ADULT Goal: PT VERBALIZES/DEMONSTRATES ADEQUATE COMFORT LEVEL OR BASELINE Outcome: Progressing Problem: KNOWLEDGE DEFICIT Goal: Patient/family/caregiver demonstrates understanding of disease process, treatment plan, medications, and discharge instructions Outcome: Progressing Problem: INFECTION - ADULT Goal: Absence of infection during hospitalization Outcome: Progressing Problem: SKIN/TISSUE INTEGRITY Goal: Skin/Tissue integrity maintained or improved Outcome: Progressing Goal: Oral and Nasal mucous membranes remain intact Outcome: Progressing Problem: SAFETY ADULT Goal: Maintain a safe environment Outcome: Progressing Problem: DISCHARGE PLANNING Goal: Patient discharge needs identified Outcome: Progressing CTURAL METAL WORKER documented in this encounter OR Notes * Op Note - Catrina Sutton M.D. - 07/15/2024 2:11 PM CST Pre-op Diagnosis Empyema Pleural (HCC) Post-op Diagnosis Empyema Pleural (HCC) Environmental Aide A optical assistant actively participated and was necessary for one or more of the following: opening, exposure and visualization, maintaining hemostasis, wound closure resulting in its safe and expeditious completion. Findings As expected Complications None Operative Note Narrative Ms Lawrence was brought to the operating room and underwent general anesthesia in the supine position. She was intubated directly with a double-lumen endotracheal tube. The patient was subsequently prepped and draped in the usual manner for a robotic approach to the left lower lobe. Our ports were inserted in the usual fashion under direct visualization. The robot was brought in and docked. We encountered left lower lobe adhesions with the chest wall and pockets of pus. Lysis of adhesions was done, removal of most of the purulent tissue was sent for culture and irrigated multiple times. 1 anterior and 1 posterior chest tube was placed, both lobes were inflated. Dr Mtz was present for the critical parts of the procedure. Catrina Cole M.D. Cosigned by Patrick Mtz M.D., Ph.D. at 07/17/2024 8:18 AM STRUCTURAL METAL WORKER CTURAL METAL WORKER CTURAL METAL WORKER * Brief Op Note - Catrina Sutton M.D. - 07/15/2024 2:11 PM STRUCTURAL METAL WORKER Pre-op Diagnosis Empyema Pleural (HCC) Post-op Diagnosis Empyema Pleural (HCC) Findings Multiple adhesions and pockets of pus involving the pleura, lower lobe and diaphragm Complications None Catrina Cole M.D. CTURAL METAL WORKER documented in this encounter Miscellaneous Notes * Hospital Course - Melinda Isaac APRN, C.N.P. - 07/16/2024 8:03 AM STRUCTURAL METAL WORKER Ms. Kumar is a 39-year-old female who was a direct admission from [facility] on for a left-sided empyema. She proceeded to the OR with Dr. Mtz on 07/15/24 for a VATS left decortication. Chest tube were removed without incident and x-ray to follow was adequate. Infectious Disease was consulted and recommended Ceftriaxone 2 g daily and oral Metronidazole 500 mg Q8h with a stop date on 08/05/24. Prior to discharge her pain was controlled, she was tolerating a general diet, and voiding without difficulty. CTURAL METAL WORKER CTURAL METAL WORKER CTURAL METAL WORKER CTURAL METAL WORKER CTURAL METAL WORKER CTURAL METAL WORKER CTURAL METAL WORKER CTURAL METAL WORKER CTURAL METAL WORKER CTURAL METAL WORKER documented in this encounter Plan of Treatment Upcoming Encounters Date Type Department Care Team (Late st Contact Info) Description 07/29/2024 10:00 AM STRUCTURAL METAL WORKER Infusion Department of Infusion Therapy in [address] [phone] Melinda Isaac APRN, C.N.P. [address] [place] [phone] 07/29/2024 2:20 PM STRUCTURAL METAL WORKER Office Visit Department of Community Internal Medicine in [address] [phone] Prudence Mena MPAS, P.A.-C. [address] [place] [phone] 07/30/2024 9:00 AM STRUCTURAL METAL WORKER Infusion Department of Infusion Therapy in [address] [phone] Melinda Isaac APRN, C.N.P. [address] [place] [phone] 07/31/2024 8:00 AM STRUCTURAL METAL WORKER Infusion Department of Infusion Therapy in [address] [phone] Melinda Isaac APRN, C.N.P. [address] [place] [phone] 08/01/2024 7:00 AM STRUCTURAL METAL WORKER Infusion Department of Infusion Therapy in [address] [phone] Melinda Isaac APRN, C.N.P. [address] [place] [phone] 08/02/2024 9:00 AM STRUCTURAL METAL WORKER Infusion Department of Infusion Therapy in [address] [phone] Melinda Isaac APRN, C.N.P. [address] [place] [phone] 08/02/2024 12:30 PM STRUCTURAL METAL WORKER Clinical Communication Virtual Review in [place], [place] 200 [place] [address] 08/03/2024 9:00 AM STRUCTURAL METAL WORKER Infusion Department of Infusion Therapy in [address] [phone] Melinda Isaac APRN, C.N.P. [address] [place] [phone] 08/04/2024 9:00 AM STRUCTURAL METAL WORKER Infusion Department of Infusion Therapy in [address] [phone] Melinda Isaac APRN, C.N.P. [address] [place] [phone] 08/05/2024 8:45 AM STRUCTURAL METAL WORKER Appointment Department of Radiology, [facility], in [place], [place] [address] [place] [phone] Kayleigh Small M.D. [address] [place] [phone] 08/05/2024 9:00 AM STRUCTURAL METAL WORKER Infusion Department of Infusion Therapy in [address] [phone] Melinda Isaac APRN, C.N.P. [address] [place] [phone] 08/05/2024 11:00 AM STRUCTURAL METAL WORKER Office Visit Section of Infectious Diseases in [place], [place] [address] [place] [phone] Kayleigh Small M.D. [address] [place] [phone] 08/06/2024 9:00 AM STRUCTURAL METAL WORKER Infusion Department of Infusion Therapy in [address] [phone] Melinda Isaac APRN, C.N.P. [address] [place] [phone] 08/07/2024 9:00 AM STRUCTURAL METAL WORKER Infusion Department of Infusion Therapy in [address] [phone] Melinda Isaac APRN, C.N.P. [address] [place] [phone] 08/08/2024 9:00 AM STRUCTURAL METAL WORKER Infusion Department of Infusion Therapy in [address] [phone] Melinda Isaac APRN, C.N.P. [address] [place] [phone] 08/09/2024 9:00 AM STRUCTURAL METAL WORKER Infusion Department of Infusion Therapy in [address] [place] [address] Melinda Isaac APRN, C.N.P. [address] [place] [phone] 08/10/2024 9:00 AM STRUCTURAL METAL WORKER Infusion Department of Infusion Therapy in [address] [phone] Melinda Isaac APRN, C.N.P. [address] [place] [phone] 08/11/2024 9:00 AM STRUCTURAL METAL WORKER Infusion Department of Infusion Therapy in [address] [phone] Melinda Isaac APRN, C.N.P. [address] [place] [phone] 08/12/2024 9:00 AM STRUCTURAL METAL WORKER Infusion Department of Infusion Therapy in [address] [phone] Melinda Isaac APRN, C.N.P. [address] [place] [phone] 08/13/2024 8:30 AM STRUCTURAL METAL WORKER Infusion Department of Infusion Therapy in [address] [phone] Melinda Isaac APRN, C.N.P. [address] [place] [phone] 08/14/2024 9:00 AM STRUCTURAL METAL WORKER Infusion Department of Infusion Therapy in [address] [phone] Melinda Isaac APRN, C.N.P. [address] [place] [phone] 08/15/2024 9:00 AM STRUCTURAL METAL WORKER Infusion Department of Infusion Therapy in [address] [phone] Melinda Isaac APRN, C.N.P. [address] [place] [phone] 08/16/2024 9:00 AM STRUCTURAL METAL WORKER Infusion Department of Infusion Therapy in [address] [phone] Melinda Isaac APRN, C.N.P. [address] [place] [phone] 08/17/2024 9:00 AM STRUCTURAL METAL WORKER Infusion Department of Infusion Therapy in [address] [phone] Melinda Isaac APRN, C.N.P. [address] [place] [phone] 08/18/2024 9:00 AM STRUCTURAL METAL WORKER Infusion Department of Infusion Therapy in [address] [phone] Melinda Isaac APRN, C.N.P. [address] [place] [phone] Pending Results Name Type Priority Associated Diagnoses Date /Time Fungal Culture, Routine Microbiology Routine Empyema Pleural ([facility]) 07/15/2024 2:24 PM STRUCTURAL METAL WORKER Mycobacterial Culture Microbiology Routine Empyema Pleural ([facility]) 07/15/2024 2:24 PM STRUCTURAL METAL WORKER Bacterial Culture, Anaerobic + Susceptibility Microbiology Routine Empyema Pleural ([facility]) 07/15/2024 4:00 PM STRUCTURAL METAL WORKER Fungal Culture, Routine Microbiology Routine Empyema Pleural (HCC) 07/15/2024 4:00 PM STRUCTURAL METAL WORKER Mycobacterial Culture Microbiology Routine Empyema Pleural (HCC) 07/15/2024 4:00 PM STRUCTURAL METAL WORKER Actinomyces Culture Microbiology Routine Empyema Pleural (HCC) 07/15/2024 4:00 PM STRUCTURAL METAL WORKER Scheduled Orders Name Type Priority Associated Diagnoses Order Schedule DX Chest AP or PA and Lateral 2 Views Imaging RAD - Routine (most inpatients and all outpatients) Empyema Pleural (HCC) Expected: 08/30/2024 (Approximate), Expires: 07/19/2027 Perform central molding line assistant: Site care, Flush port(s) Procedures Routine Empyema Pleural (HCC) Expected: 07/22/2024, Expires: 10/17/2025 Perform central molding line assistant: Flush port(s), Site care Procedures Routine Empyema Pleural (HCC) Expected: 07/29/2024, Expires: 10/17/2025 CBC with Differential, Blood Lab Routine Empyema Pleural (HCC) Expected: 07/29/2024, Expires: 07/19/2025 ALT (Alanine Aminotransferase) Lab Routine Empyema Pleural (HCC) Expected: 07/29/2024, Expires: 10/17/2025 Alkaline Phosphatase Lab Routine Empyema Pleural (HCC) Expected: 07/29/2024, Expires: 10/17/2025 Creatinine with Estimated GFR Lab Routine Empyema Pleural (HCC) Expected: 07/29/2024, Expires: 10/17/2025 Scheduled Referrals Name Type Priority Associated Diagnoses Orde r Schedule Thoracic Surgery Post Op (clinic) Outpatient Referral Routine Expected: 08/30/2024, Expires: 07/19/2027 documented as of this encounter Procedures Procedure Name Priority Date/Time Associated Diagnosis Comments DX CHEST AP OR PA AND LATERAL 2 VIEWS RAD - Routine (most inpatients and all outpatients) 07/19/2024 1:04 PM STRUCTURAL METAL WORKER NOCTURNAL OXYGEN STUDY - RT Routine 07/19/2024 12:24 PM STRUCTURAL METAL WORKER DX CHEST AP OR PA AND LATERAL 2 VIEWS RAD - Routine (most inpatients and all outpatients) 07/19/2024 9:10 AM STRUCTURAL METAL WORKER ADULT OXYGEN THERAPY Routine 07/19/2024 8:01 AM STRUCTURAL METAL WORKER CBC WITHOUT DIFFERENTIAL, B Routine 07/19/2024 6:02 AM STRUCTURAL METAL WORKER BASIC METABOLIC PANEL, S/P Routine 07/19/2024 6:[address] METAL WORK[address] PERIPHERALLY INSERTED CENTRAL CATHETER (PICC) Routine 07/18/2024 8:43 PM STRUCTURAL METAL WORKER ADULT OXYGEN THERAPY Routine 07/18/2024 8:01 PM STRUCTURAL METAL WORKER DX CHEST AP OR PA AND LATERAL 2 VIEWS RAD - Routine (most inpatients and all outpatients) 07/18/2024 10:15 AM STRUCTURAL METAL WORKER ADULT OXYGEN THERAPY Routine 07/18/2024 8:00 AM STRUCTURAL METAL WORKER ADULT OXYGEN THERAPY Routine 07/17/2024 8:01 PM STRUCTURAL METAL WORKER HIV-1/-2 AG AND AB SCREEN, PLASMA Routine 07/17/2024 5:05 PM STRUCTURAL METAL WORKER ADULT OXYGEN THERAPY Routine 07/17/2024 8:01 AM STRUCTURAL METAL WORKER ADULT OXYGEN THERAPY Routine 07/16/2024 8:01 PM STRUCTURAL METAL WORKER RESPIRATORY ASSESS AND TREAT Routine 07/16/2024 2:00 PM STRUCTURAL METAL WORKER VANCOMYCIN, TROUGH, S Timed 07/16/2024 10:31 AM STRUCTURAL METAL WORKER ADULT OXYGEN THERAPY Routine 07/16/2024 8:01 AM STRUCTURAL METAL WORKER ADULT OXYGEN THERAPY Routine 07/15/2024 8:01 PM STRUCTURAL METAL WORKER ADULT OXYGEN THERAPY Routine 07/15/2024 6:49 PM STRUCTURAL METAL WORKER ADULT OXYGEN THERAPY Routine 07/15/2024 6:49 PM STRUCTURAL METAL WORKER ADULT OXYGEN THERAPY Routine 07/15/2024 6:49 PM STRUCTURAL METAL WORKER DX CHEST 1 VIEW RAD - Routine (most inpatients and all outpatients) 07/15/2024 4:51 PM STRUCTURAL METAL WORKER BACTERIAL CULTURE, AEROBIC + SUSC Routine 07/15/2024 4:00 PM STRUCTURAL METAL WORKER Empyema Pleural (HCC) ACTINOMYCES CULTURE Routine 07/15/2024 4 :00 PM STRUCTURAL METAL WORKER Empyema Pleural (HCC) MYCOBACTERIAL CULTURE, V Routine 07/15/2024 4:00 PM STRUCTURAL METAL WORKER Empyema Pleural (HCC) FUNGAL SMEAR Routine 07/15/2024 4:00 PM STRUCTURAL METAL WORKER Empyema Pleural (HCC) LEGIONELLA CULTURE Routine 07/15/2024 4: 00 PM STRUCTURAL METAL WORKER Empyema Pleural (HCC) ACID FAST SMEAR FOR MYCOBACTERIUM Routine 07/15/2024 4:00 PM STRUCTURAL METAL WORKER Empyema Pleural (HCC) GRAM STAIN Routine 07/15/2024 4:00 PM STRUCTURAL METAL WORKER Empyema Pleural (HCC) FUNGAL CULTURE, ROUTINE Routine 07/15/2024 4:00 PM STRUCTURAL METAL WORKER Empyema Pleural (HCC) BACTERIAL CULTURE, ANAEROBIC + SUSC Routine 07/15/2024 4:00 PM STRUCTURAL METAL WORKER Empyema Pleural (HCC) BACTERIAL CULTURE, AEROBIC + SUSC Routine 07/15/2024 2:24 PM STRUCTURAL METAL WORKER Empyema Pleural (HCC) MYCOBACTERIAL CULTURE, V Routine 07/15/2024 2:24 PM STRUCTURAL METAL WORKER Empyema Pleural (HCC) FUNGAL SMEAR Routine 07/15/2024 2:24 PM STRUCTURAL METAL WORKER Empyema Pleural (HCC) ACID FAST SMEAR FOR MYCOBACTERIUM Routine 07/15/2024 2:24 PM STRUCTURAL METAL WORKER Empyema Pleural (HCC) GRAM STAIN Routine 07/15/2024 2:24 PM STRUCTURAL METAL WORKER Empyema Pleural (HCC) FUNGAL CULTURE, ROUTINE Routine 07/15/2024 2:24 PM STRUCTURAL METAL WORKER Empyema Pleural (HCC) THORACOSCOPY - DECORTICATION 07/15/2024 12:32 PM STRUCTURAL METAL WORKER Empyema Pleural (HCC) TYPE AND SCREEN STAT 07/15/2024 7:50 AM STRUCTURAL METAL WORKER MRSA/STAPHYLOCOCCUS AUREUS, NASAL, BY PCR Routine 07/14/2024 10:39 AM STRUCTURAL METAL WORKER BASIC METABOLIC PANEL, S/P Routine 07/14/2024 4:09 AM STRUCTURAL METAL WORKER DX CHEST PORTABLE 1 VIEW RAD - Routine (most inpatients and all outpatients) 07/13/2024 9:07 PM STRUCTURAL METAL WORKER CBC WITHOUT DIFFERENTIAL, B Routine 07/13/2024 8:14 PM STRUCTURAL METAL WORKER documented in this encounter Results * DX Chest AP or PA and Lateral 2 Views (07/19/2024 1:04 PM STRUCTURAL METAL WORKER) Anatomical Region Laterality Modality Chest, Thoracic RST LOS, Tho racic ARZ LOS, Thoracic FLA LOS N/A Digital Radiography Impressions 07/19/2024 1:55 PM STRUCTURAL METAL WORKER Since earlier today, removal of the left chest tube. Remainder not significantly changed. Trace left apical pneumothorax. Right PICC tip at the SVC/RA junction. No pleural effusions. Enlarged cardiac silhouette. Scattered subsegmental atelectasis. Narrative 07/19/2024 1:55 PM STRUCTURAL METAL WORKER EXAM: DX CHEST AP OR PA AND LATERAL 2 VIEWS Procedure Note Jt Valenzuela M.D. - 07/19/2024 EXAM: DX CHEST AP OR PA AND LATERAL 2 VIEWS IMPRESSION: Since earlier today, removal of the left chest tube. Remainder notsignificantly changed. Trace left apical pneumothorax. Right PICC tip atthe SVC/RA junction. No pleural effusions. Enlarged cardiac silhouette.Scattered subsegmental atelectasis. Eveline Mariscal P.A.-C. IMG DIAGNOSTIC IMAGING RI OCEDURES Final Result * DX Chest AP or PA and Lateral 2 Views (07/19/2024 9:10 AM STRUCTURAL METAL WORKER) Anatomical Region Laterality Modality Chest, Thoracic RST LOS, Tho racic ARZ LOS, Thoracic FLA LOS N/A Digital Radiography Impressions 07/19/2024 10:12 AM STRUCTURAL METAL WORKER Since 07/18/2024, right arm PICC has been inserted with tip at the SVC RA junction. One of the left chest tubes has been removed. Remainder unchanged. Trace left apical pneumothorax. No pleural effusions. Enlarged cardiac silhouette. Scattered subsegmental atelectasis. Left chest tube. Narrative 07/19/2024 10:12 AM STRUCTURAL METAL WORKER EXAM: DX CHEST AP OR PA AND LATERAL 2 VIEWS Procedure Note Jt Valenzuela M.D. - 07/19/2024 EXAM: DX CHEST AP OR PA AND LATERAL 2 VIEWS IMPRESSION: Since 07/18/2024, right arm PICC has been inserted with tip at the SVC RAjunction. One of the left chest tubes has been removed. Remainder unchanged. Trace left apical pneumothorax. No pleural effusions.Enlarged cardiac silhouette. Scattered subsegmental atelectasis. Leftchest tube. Eveline Mariscal P.A.-C. IMG DIAGNOSTIC IMAGING RI OCEDURES Final Result * Basic Metabolic Panel (07/19/2024 6:02 AM STRUCTURAL METAL WORKER) Potassium, S 3.6 3.6 - 5.2 mmol/L 07/19/2024 6:59 AM STRUCTURAL METAL WORKER DTL Sodium, S 140 135 - 145 mmol/L 07/19/2024 6:59 AM STRUCTURAL METAL WORKER DTL Chloride, S 103 98 - 107 mmol/L 07/19/2024 6:59 AM STRUCTURAL METAL WORKER DTL Bicarbonate, S 28 22 - 29 mmol/L 07/19/2024 6:59 AM STRUCTURAL METAL WORKER DTL Anion Gap 9 7 - 15 07/19/2024 6:59 AM STRUCTURAL METAL WORKER DTL BUN (Blood Urea Nitrogen), S 11 6 - 21 mg/dL 07/19/2024 6:59 AM STRUCTURAL METAL WORKER DTL Creatinine 0.82 0.59 - 1.04 mg/dL 07/19/2024 6:59 AM STRUCTURAL METAL WORKER DTL Estimated GFR (eGFR) >90 >=60 mL/min/BSA 07/19/2024 6:59 AM STRUCTURAL METAL WORKER DTL Comment: Estimated GFR calculated using the 2020 CKD_EPI creatinine equation. Calcium, Total, S 8.6 8.6 - 10.0 mg/dL 07/19/2024 6:59 AM STRUCTURAL METAL WORKER DTL Glucose, S 90 70 - 140 mg/dL 07/19/2024 6:59 AM STRUCTURAL METAL WORKER DTL Blood (Blood, Venous) 07/19/2024 6:02 AM STRUCTURAL METAL WORKER 07/19/2024 6:42 AM STRUCTURAL METAL WORKER Lopez Garvey M.D. LAB BLOOD ADD-ON Final Resul t Performing Organization Address [facility] Co de Phone Number [facility] [address] [place], [place] [id number] [place] [address] DTL Formerly [facility] [address] [place] [address] * (ABNORMAL) CBC without Differential (07/19/2024 6:02 AM STRUCTURAL METAL WORKER) [facility] Hemoglobin 7.6(L) 11.6 - 15.0 g/dL 07/19/2024 6:38 AM STRUCTURAL METAL WORKER DTL Hematocrit 24.1(L) 35.5 - 44.9 % 07/19/2024 6:38 AM STRUCTURAL METAL WORKER DTL Erythrocytes 2.67(L) 3.92 - 5.13 x10(12)/L 07/19/2024 6:38 AM STRUCTURAL METAL WORKER DTL MCV 90.3 78.2 - 97.9 fL 07/19/2024 6:38 AM STRUCTURAL METAL WORKER DTL RBC Distrib Width 15.6 12.2 - 16.1 % 07/19/2024 6:38 AM STRUCTURAL METAL WORKER DTL Platelet Count 478(H) 157 - 371 x10(9)/L 07/19/2024 6:38 AM STRUCTURAL METAL WORKER DTL Leukocytes 9.8(H) 3.4 - 9.6 x10(9)/L 07/19/2024 6:38 AM STRUCTURAL METAL WORKER DTL Blood (Blood, Venous) 07/19/2024 6:02 AM STRUCTURAL METAL WORKER 07/19/2024 6:26 AM STRUCTURAL METAL WORKER us Lopez Garvey M.D. LAB BLOOD ADD-ON Final Resul t Performing Organization Address City/[facility]/ZIP Co de Phone Number [facility] [address] [place], [place] [phone] [place] [address] DTL [facility] [address] [place] [address] * Place peripherally inserted central catheter (PICC) (07/18/2024 8:43 PM STRUCTURAL METAL WORKER) Narrative [facility] - 07/18/2024 8:43 PM STRUCTURAL METAL WORKER Rayo Finch R.N. 07/18/2024 9:[address] [...] with ultrasound and measured to ensure appropriate vzuoxiar-vg-asrq ratio of 45% or less: Right Basilic [...] to release the adhesive from the skin. http://[employer]ze/products/secureportiv Eveline Mariscal P.A.-C. PROCEDURE/MINOR SURGICAL ORDERABLES Final Result [facility] NA * DX Chest AP or PA and Lateral 2 Views (07/18/2024 10:15 AM STRUCTURAL METAL WORKER) Anatomical Region Laterality Modality Chest, Thoracic RST LOS, Tho racic ARZ LOS, Thoracic FLA LOS N/A Digital Radiography Impressions 07/18/2024 10:22 AM STRUCTURAL METAL WORKER Compared with the 07/15/2024 chest radiograph. Decreased tiny left pneumothorax. Slightly improved aeration with decreased lower lung predominant presumably atelectases. Shallow inspiration with accentuation of the cardiovascular structures. Narrative 07/18/2024 10:22 AM STRUCTURAL METAL WORKER EXAM: DX CHEST AP OR PA AND LATERAL 2 VIEWS Procedure Note Polo Toussaint M.D. - 07/18/2024 EXAM: DX CHEST AP OR PA AND LATERAL 2 VIEWS IMPRESSION: Compared with the 07/15/2024 chest radiograph. Decreased tiny leftpneumothorax. Slightly improved aeration with decreased lower lungpredominant presumably atelectases. Shallow inspiration with accentuationof the cardiovascular structures. us Eveline Mariscal P.A.-C. IMG DIAGNOSTIC IMAGING RI OCEDURES Final Result * HIV-1/-2 Ag and Ab Screen, Plasma (07/17/2024 5:05 PM STRUCTURAL METAL WORKER) HIV-1/-2 Ag and Ab Screen, P Negative Negative 07/17/2024 8:57 PM STRUCTURAL METAL WORKER [facility] Comment: Negative result does not rule out HIV infection. If exposure to HIV infection occurred <14 days ago, contact the laboratory to request addition of HIV-1/HIV-2 RNA detection, Plasma (HIP12). Blood (Blood, Venous) 07/17/2024 5:05 PM STRUCTURAL METAL WORKER 07/17/2024 7:55 PM STRUCTURAL METAL WORKER Cherelle Pennington APRN.N .P., M.S. LAB MICROBIOLOGY - BLOOD ORDERABLES Final Result [facility] [address] [place] [address] [place] [address] * (ABNORMAL) Vancomycin, Trough (07/16/2024 10:31 AM STRUCTURAL METAL WORKER) Pathologist [facility] Vancomycin, Trough, S 8.9(L) 10.0 - 20.0 mcg/mL 07/16/2024 12:10 PM STRUCTURAL METAL WORKER DTL Blood (Blood, Venous) 07/16/2024 10:31 AM STRUCTURAL METAL WORKER 07/16/2024 10:52 AM STRUCTURAL METAL WORKER us Patrick Mtz M.D., Ph.D. LAB BLOOD NON ADD-ON Fi nal Result [facility] [address] [place] [address], [facility] [address] [place] [address] * DX Chest 1 View (07/15/2024 4:51 PM STRUCTURAL METAL WORKER) Anatomical Region Laterality Modality Chest, Thoracic RST LOS, Tho racic ARZ LOS, Thoracic FLA LOS N/A Digital Radiography Impressions 07/15/2024 4:59 PM STRUCTURAL METAL WORKER Negative for postoperative purposes. Left thoracotomy with 2 left chest tubes. Small left-sided pneumothorax. New left perihilar consolidation/atelectasis since 07/13/2024. Increased bibasilar consolidation/atelectasis. Very low lung volumes accentuate heart size and bronchovascular markings. Narrative 07/15/2024 4:59 PM STRUCTURAL METAL WORKER EXAM: DX CHEST 1 VIEW Procedure Note Jah Elam M.D. - 07/15/2024 EXAM: DX CHEST 1 VIEW IMPRESSION: Negative for postoperative purposes. Left thoracotomy with 2 left chesttubes. Small left-sided pneumothorax. New left perihilarconsolidation/atelectasis since 07/13/2024. Increased bibasilarconsolidation/atelectasis. Very low lung volumes accentuate heart size and bronchovascular markings. Patrick Mtz M.D., Ph.D. IMG DIAGNOSTIC IMAGING PROCEDURES Final Result * Bacterial Culture, Aerobic + Susceptibility (07/15/2024 4:00 PM STRUCTURAL METAL WORKER) Bacterial Culture, Aerobic + Susc No growth after 5 days of incubation. 07/20/2024 7:42 AM STRUCTURAL METAL WORKER DTL Tissue (Pleura, Left) 07/15/2024 4:00 PM STRUCTURAL METAL WORKER Patrick Mtz M.D., Ph.D. LAB MICROBIOLOGY - GENE RAL ORDERABLES Final Result [facility] [address] [place] [address], [place] [facility] [address] [place] [address] * Fungal Smear (07/15/2024 4:00 PM STRUCTURAL METAL WORKER) Fungal Smear Negative. 07/16/2024 8:52 AM STRUCTURAL METAL WORKER DTL Tissue (Pleura, Left) 07/15/2024 4:00 PM STRUCTURAL METAL WORKER us Patrick Mtz M.D., Ph.D. LAB MICROBIOLOGY - GENE RAL ORDERABLES Final Result Performing Organization Address City/[facility]/ZIP Co de Phone Number [facility] [address] [place] [address], [facility] [address] [place] [address] * Legionella Culture (07/15/2024 4:00 PM STRUCTURAL METAL WORKER) Legionella Culture No growth of Legionella species after 7 days of incubation 07/22/2024 8:16 AM STRUCTURAL METAL WORKER DTL Tissue (Pleura, Left) 07/15/2024 4:00 PM STRUCTURAL METAL WORKER us Patrick Mtz M.D., Ph.D. LAB MICROBIOLOGY - GENE RAL ORDERABLES Final Result Performing Organization Address [facility] Co de Phone Number [facility] [address] [place] [address], [facility] [address] [place] [address] * Acid Fast Smear for Mycobacterium (07/15/2024 4:00 PM STRUCTURAL METAL WORKER) Acid Fast Smear For Mycobacterium Negative. 07/15/2024 10:18 PM STRUCTURAL METAL WORKER DTL Tissue (Pleura, Left) 07/15/2024 4:00 PM STRUCTURAL METAL WORKER us Patrick Mtz M.D., Ph.D. LAB MICROBIOLOGY - GENE RAL ORDERABLES Final Result Performing Organization Address City/[facility]/ZIP Co de Phone Number [facility] [address] [place] [address], [facility] [address] [place] [address] * Gram Stain (07/15/2024 4:00 PM STRUCTURAL METAL WORKER) Gram Stain No organisms seen. White blood cells, Many 07/15/2024 10:18 PM STRUCTURAL METAL WORKER DTL Tissue (Pleura, Left) 07/15/2024 4:00 PM STRUCTURAL METAL WORKER us Patrick Mtz M.D., Ph.D. LAB MICROBIOLOGY - GENE RAL ORDERABLES Final Result [facility] [address] [place] [address], [facility] [address] [place] [address] * Bacterial Culture, Aerobic + Susceptibility (07/15/2024 2:24 PM STRUCTURAL METAL WORKER) Bacterial Culture, Aerobic + Susc No growth after 5 days of incubation. 07/20/2024 7:42 AM STRUCTURAL METAL WORKER DTL Fluid (Pleural Fluid, Left) 07/15/2024 2:24 PM STRUCTURAL METAL WORKER Narrative [facility] - 07/20/2024 7:42 AM STRUCTURAL METAL WORKER Bacterial Culture: Placed in Bactec aerobic and Bactec anaerobic bottles us Patrick Mtz M.D., Ph.D. LAB MICROBIOLOGY - GENE RAL ORDERABLES Final Result Performing Organization Address [facility] Co de Phone Number [facility] [address] [place], [place] [id number] [place] [address] [place] [address] * Fungal Smear (07/15/2024 2:24 PM STRUCTURAL METAL WORKER) Fungal Smear Negative. 07/15/2024 7:25 PM STRUCTURAL METAL WORKER DTL Fluid (Pleural Fluid, Left) 07/15/2024 2:24 PM STRUCTURAL METAL WORKER Narrative [facility] - 07/15/2024 7:25 PM STRUCTURAL METAL WORKER Bacterial Culture: Placed in Bactec aerobic and Bactec anaerobic bottles us Patrick Mtz M.D., Ph.D. LAB MICROBIOLOGY - GENE RAL ORDERABLES Final Result Performing Organization Address City/[facility]/ZIP Co de Phone Number [facility] [address] [place] [address] * Acid Fast Smear for Mycobacterium (07/15/2024 2:24 PM STRUCTURAL METAL WORKER) [facility] Acid Fast Smear For Mycobacterium Negative. 07/15/2024 9:24 PM STRUCTURAL METAL WORKER DTL Fluid (Pleural Fluid, Left) 07/15/2024 2:24 PM STRUCTURAL METAL WORKER Narrative [facility] - 07/15/2024 9:24 PM STRUCTURAL METAL WORKER Bacterial Culture: Placed in Bactec aerobic and Bactec anaerobic bottles Patrick Mtz M.D., Ph.D. LAB MICROBIOLOGY - GENE RAL ORDERABLES Final Result Performing Organization Address City/[facility]/ZIP Co de Phone Number [facility] [address] [place] [address] * Gram Stain (07/15/2024 2:24 PM STRUCTURAL METAL WORKER) [facility] Gram Stain No organisms seen. White blood cells, Moderate 07/15/2024 8:02 PM STRUCTURAL METAL WORKER DTL Fluid (Pleural Fluid, Left) 07/15/2024 2:24 PM STRUCTURAL METAL WORKER Narrative [facility] - 07/15/2024 8:02 PM STRUCTURAL METAL WORKER Bacterial Culture: Placed in Bactec aerobic and Bactec anaerobic bottles Patrick Mtz M.D., Ph.D. LAB MICROBIOLOGY - GENE RAL ORDERABLES Final Result [facility] [address] [place], [place] [id number] [place] [address] [address] [place] [address] * Type and Screen (with Reflex Antibody ID) (07/15/2024 7:50 AM STRUCTURAL METAL WORKER) [facility] ABORh AB Pos Not applicable 07/15/2024 8:36 AM STRUCTURAL METAL WORKER STRM Antibody Screen Negative Negative 07/15/2024 8:51 AM STRUCTURAL METAL WORKER STRM Type & Screen Expiration 07/18/2024 23:59 07/15/2024 8:36 AM STRUCTURAL METAL WORKER STRM Testing Location [place] DEFAULT 07/15/2024 8:10 AM STRUCTURAL METAL WORKER STRM Blood (Blood, Venous) 07/15/2024 7:50 AM STRUCTURAL METAL WORKER 07/15/2024 8:10 AM STRUCTURAL METAL WORKER Jamie Kumar M.D. LAB BLOOD BANK TEST ORDERABLES F inal Result Performing Organization Address City/[facility]/ZIP Co de Phone Number [facility] [address] [place] [address], [facility] STRM Formerly [facility] [address] [place] [address] * Staph aureus / MRSA, Nasal, PCR (07/14/2024 10:39 AM STRUCTURAL METAL WORKER) Staphylococcus aureus, PCR Negative Negative 07/14/2024 12:55 PM STRUCTURAL METAL WORKER DTL MRSA, PCR Negative Negative 07/14/2024 12:55 PM STRUCTURAL METAL WORKER DTL Swab (Nares) 07/14/2024 10:3 9 AM STRUCTURAL METAL WORKER 07/14/2024 11:06 AM STRUCTURAL METAL WORKER Patrick Mtz M.D., Ph.D. LAB MICROBIOLOGY - GENE RAL ORDERABLES Final Result Performing Organization Address [facility] Co de Phone Number [facility] [address] [place] [address], [facility] DTL Formerly [facility] [address] [place] [address] * (ABNORMAL) Basic Metabolic Panel (07/14/2024 4:09 AM STRUCTURAL METAL WORKER) Potassium, S 3.9 3.6 - 5.2 mmol/L 07/14/2024 5:53 AM STRUCTURAL METAL WORKER DTL Sodium, S 139 135 - 145 mmol/L 07/14/2024 5:53 AM STRUCTURAL METAL WORKER DTL Chloride, S 103 98 - 107 mmol/L 07/14/2024 5:53 AM STRUCTURAL METAL WORKER DTL Bicarbonate, S 22 22 - 29 mmol/L 07/14/2024 5:53 AM STRUCTURAL METAL WORKER DTL Anion Gap 14 7 - 15 07/14/2024 5:53 AM STRUCTURAL METAL WORKER DTL BUN (Blood Urea Nitrogen), S 10 6 - 21 mg/dL 07/14/2024 5:53 AM STRUCTURAL METAL WORKER DTL Creatinine 0.57(L) 0.59 - 1.04 mg/dL 07/14/2024 5:53 AM STRUCTURAL METAL WORKER DTL Estimated GFR (eGFR) >90 >=60 mL/min/BSA 07/14/2024 5:53 AM STRUCTURAL METAL WORKER DTL Comment: Estimated GFR calculated using the 2020 CKD_EPI creatinine equation. Calcium, Total, S 9.1 8.6 - 10.0 mg/dL 07/14/2024 5:53 AM STRUCTURAL METAL WORKER DTL Glucose, S 91 70 - 140 mg/dL 07/14/2024 5:53 AM STRUCTURAL METAL WORKER DTL Blood (Blood, Venous) 07/14/2024 4:09 AM STRUCTURAL METAL WORKER 07/14/2024 5:23 AM STRUCTURAL METAL WORKER Lopez Garvey M.D. LAB BLOOD ADD-ON Final Resul t [facility] [address] [place] [address], [facility] DTL Formerly [facility] [address] [place] [address] * DX Chest Portable 1 View (07/13/2024 9:07 PM STRUCTURAL METAL WORKER) Anatomical Region Laterality Modality Chest, Thoracic RST LOS, Tho racic ARZ LOS, Thoracic FLA LOS N/A Digital Radiography Impressions 07/14/2024 7:27 AM STRUCTURAL METAL WORKER No significant change since earlier today. Bibasilar atelectasis. Small left loculated pleural effusion. Hazy opacification in the bilateral lungs, left greater than right. No discernible pneumothorax. Mildly enlarged cardiomediastinal silhouette. Narrative 07/14/2024 7:27 AM STRUCTURAL METAL WORKER EXAM: DX CHEST PORTABLE 1 VIEW Procedure Note Chaz Montelongo M.D. - 07/14/2024 EXAM: DX CHEST PORTABLE 1 VIEW IMPRESSION: No significant change since earlier today. Bibasilar atelectasis. Smallleft loculated pleural effusion. Hazy opacification in the bilaterallungs, left greater than right. No discernible pneumothorax. Mildlyenlarged cardiomediastinal silhouette. Lopez Garvey M.D. IMG DIAGNOSTIC IMAGING PROCE ASAD Final Result * (ABNORMAL) CBC without Differential (07/13/2024 8:14 PM STRUCTURAL METAL WORKER) Hemoglobin 9.7(L) 11.6 - 15.0 g/dL 07/13/2024 9:24 PM STRUCTURAL METAL WORKER DTL Hematocrit 30.1(L) 35.5 - 44.9 % 07/13/2024 9:24 PM STRUCTURAL METAL WORKER DTL Erythrocytes 3.32(L) 3.92 - 5.13 x10(12)/L 07/13/2024 9:24 PM STRUCTURAL METAL WORKER DTL MCV 90.7 78.2 - 97.9 fL 07/13/2024 9:24 PM STRUCTURAL METAL WORKER DTL RBC Distrib Width 15.3 12.2 - 16.1 % 07/13/2024 9:24 PM STRUCTURAL METAL WORKER DTL Platelet Count 788(H) 157 - 371 x10(9)/L 07/13/2024 9:24 PM STRUCTURAL METAL WORKER DTL Leukocytes 17.4(H) 3.4 - 9.6 x10(9)/L 07/13/2024 9:24 PM STRUCTURAL METAL WORKER DTL Blood (Blood, Venous) 07/13/2024 8:14 PM STRUCTURAL METAL WORKER 07/13/2024 9:16 PM STRUCTURAL METAL WORKER Lopez Garvey M.D. LAB BLOOD ADD-ON Final Resul t [facility] [address] [place] [address], [facility] DTL Formerly [facility] [address] [place] [address] documented in this encounter Visit Diagnoses Diagnosis Empyema Pleural (HCC)- Primary Empyema Pleural (HCC) documented in this encounter Admitting Diagnoses Diagnosis Empyema Pleural (HCC) documented in this encounter Administered Medications Inactive Administered Medications - up to 3 most recent administrations Medication Order MAR Action Action Date Dose Rate Site acetaminophen tablet 1,000 mg (TylenoL) 1,000 mg, oral, Every 6 hours, First dose on 07/13/24 at 2100 Given 07/20/2024 8:40 AM STRUCTURAL METAL WORKER 1,000 mg Given 07/20/2024 2:56 AM STRUCTURAL METAL WORKER 1,000 mg Given 07/19/2024 8:36 PM STRUCTURAL METAL WORKER 1,000 mg bisacodyL suppository 10 mg (Dulcolax) 10 mg, rectal, Every 12 hours PRN, constipation, Starting on 07/15/24 at 1849, If no bowel movement within 2 hours following magnesium hydroxide, do not give if patient has diarrhea. BUPivacaine 0.25 % (2.5 mg/mL) injection (Marcaine) As needed, Starting on 07/15/24 at 1615, Intra-Op Given 07/15/2024 4:15 PM STRUCTURAL METAL WORKER [address] buPROPion XL 24 hr tablet 150 mg (Wellbutrin XL) 150 mg, oral, Daily, First dose on 07/14/24 at 0900, Swallow whole. Do NOT crush, chew, or split tablet. Given 07/20/2024 8:42 AM STRUCTURAL METAL WORKER 150 mg Given 07/19/2024 8:39 AM STRUCTURAL METAL WORKER 150 mg Given 07/18/2024 7:34 AM STRUCTURAL METAL WORKER 150 mg buPROPion XL 24 hr tablet 300 mg (Wellbutrin XL) 300 mg, oral, Daily, First dose on 07/14/24 at 0900, Swallow whole. Do NOT crush, chew, or split tablet. Given 07/20/2024 8:41 AM STRUCTURAL METAL WORKER 300 mg Given 07/19/2024 8:41 AM STRUCTURAL METAL WORKER 300 mg Given 07/18/2024 7:36 AM STRUCTURAL METAL WORKER 300 mg calcium carbonate chewable tablet 400 mg of calcium (Tums) 400 mg of calcium, oral, Every 4 hours PRN, heartburn, Starting on 07/13/24 at 1953, Doses listed are in mg of elemental calcium. Take with food. 500 mg calcium carbonate contains 200 mg of elemental calcium. cariprazine capsule 4.5 mg (Vraylar) 4.5 mg, oral, Daily at bedtime, First dose (after last modification) on 07/14/24 at 2100 Given 07/19/2024 8:37 PM STRUCTURAL METAL WORKER 4.5 mg Given 07/18/2024 9:23 PM STRUCTURAL METAL WORKER 4.5 mg Given 07/17/2024 8:24 PM STRUCTURAL METAL WORKER 4.5 mg cefTRIAXone in dextrose (iso osm) IVPB 2 g (Rocephin) 2 g, intravenous, at 200 mL/hr, Administer over 15 Minutes, Every 24 hours, First dose on Mon07/17/24 at 1600, Drug Monitoring Program: Pharmacist to adjust medication dosing based on indication and drug clearance factors., Indications: empyemaIndications:empyema New Bag 07/20/2024 8:43 AM STRUCTURAL METAL WORKER 2 g 200 mL/hr New Bag 07/19/2024 11:52 AM STRUCTURAL METAL WORKER 2 g 200 mL/hr New Bag 07/18/2024 4:31 PM STRUCTURAL METAL WORKER 2 g 200 mL/hr D5W infusion 1-999 mL/hr, intravenous, As needed, Medications Incompatible with 0.9% NaCL, Starting on Mon07/18/24 at 2034, Infuse at the same rate as the piggyback until tubing clears or up to a volume of 20 mL pre and post infusion for medications incompatible with 0.9% NaCL. Use 50 mL bag then discard. DULoxetine DR capsule 60 mg (Cymbalta) 60 mg, oral, Daily, First dose on Mon07/14/24 at 0900, See tube feeding guidelines for tube feeding administration instructions. Given 07/20/2024 8:40 AM STRUCTURAL METAL WORKER 60 mg Given 07/19/2024 8:40 AM STRUCTURAL METAL WORKER 60 mg Given 07/18/2024 7:35 AM STRUCTURAL METAL WORKER 60 mg heparin (porcine) injection 5,000 Units 5,000 Units, subcutaneous, Every 8 hours scheduled, First dose on Mon07/16/24 at 0600 Given 07/20/2024 5:49 AM STRUCTURAL METAL WORKER 5,000 Units Right Upper Arm (Back) Given 07/19/2024 8:36 PM STRUCTURAL METAL WORKER 5,000 Units L eft Upper Arm (Back) Given 07/19/2024 1:45 PM STRUCTURAL METAL WORKER 5,000 Units L eft Upper Abdomen heparin (porcine) injection As needed, Starting on Mon07/15/24 at 1320, Intra-Op Given 07/15/2024 1:20 PM STRUCTURAL METAL WORKER 5,000 Units Left Lower Abdomen ibuprofen tablet 400 mg 400 mg, oral, Every 6 hours PRN, moderate pain or score 4-6 of 10, severe pain or score 7-10 of 10, Starting on Mon07/19/24 at 2135, Take with food or milk if GI disturbances occur with use. Given 07/20/2024 5:49 AM STRUCTURAL METAL WORKER 400 mg Given 07/19/2024 9:44 PM STRUCTURAL METAL WORKER 400 mg ipratropium-albuteroL 0.5-2.5 mg/3 mL nebulizer solution 3 mL (DuoNeb) 3 mL, nebulization, 4 times daily PRN, shortness of breath, Starting on 07/13/24 at 1953 lidocaine 5 % 1 patch (Lidoderm) 1 patch, transdermal, Administer over 12 Hours, Daily at bedtime, First dose (after last modification) on 07/14/24 at 2100, Remove after 12 hours. Medication Applied 07/19/2024 8:37 PM STRUCTURAL METAL WORKER 1 patch Left Upper Abdomen Medication Applied 07/18/2024 9:23 PM STRUCTURAL METAL WORKER 1 patch Other Medication Applied 07/17/2024 8:25 PM STRUCTURAL METAL WORKER 1 patch Flank LORazepam tablet 0.5 mg (Ativan) 0.5 mg, oral, Daily PRN, anxiety, Starting on 07/13/24 at 2007 magnesium hydroxide suspension 30 mL (Milk of Magnesia) 30 mL, oral, Every 12 hours PRN, constipation, Starting on 07/15/24 at 1849, If no bowel movement within 24 hours of starting Senna and Docusate, do not give if patient has diarrhea. methocarbamoL tablet 500 mg (Robaxin) 500 mg, oral, 4 times daily PRN, muscle spasms, Starting on Mon07/17/24 at 1604 Given 07/20/2024 5:49 AM STRUCTURAL METAL WORKER 500 mg Given 07/19/2024 6:05 PM STRUCTURAL METAL WORKER 500 mg Given 07/19/2024 10:43 AM STRUCTURAL METAL WORKER 500 mg metroNIDAZOLE tablet 500 mg (FlagyL) 500 mg, oral, 3 times daily, First dose on Mon07/17/24 at 2100, Drug Monitoring Program: Pharmacist to adjust medication dosing based on indication and drug clearance factors., Indications: empyemaIndications:empyema Given 07/20/2024 8:42 AM STRUCTURAL METAL WORKER 500 mg Given 07/19/2024 8:37 PM STRUCTURAL METAL WORKER 500 mg Given 07/19/2024 1:46 PM STRUCTURAL METAL WORKER 500 mg NaCl 0.9% infusion 1-999 mL/hr, intravenous, As needed, Between Consecutive Piggyback Medications, Starting on Gloria 07/18/24 at 2035, For 7 days, Infuse at the same rate as the piggyback until tubing clears or up to a volume of 20 mL. Select for IV medication administration when no maintenance IV available or when IV medications are not compatible with maintenance fluid. NaCl 0.9% infusion 1-999 mL/hr, intravenous, As needed, Post Medications (Hazardous/Low Fluid Volume), Starting on Gloria 07/18/24 at 2034, For 7 days, Infuse at the same rate as the medication until tubing cleared of medication, then discard. naloxone injection 0.2 mg (Narcan) 0.2 mg, intravenous, As needed, respiratory depression, Starting on 07/13/24 at 1952, For RASS Score -4 or less, respiratory rate of less than 8 breaths/min. Notify provider/service and rapid response team (if available at institution). ondansetron (PF) injection 4 mg (Zofran) 4 mg, intravenous, Every 6 hours PRN, nausea, vomiting, Starting on 07/13/24 at 1952, Use ondansetron before droperidol. Given 07/14/2024 3:56 AM STRUCTURAL METAL WORKER 4 mg oxyCODONE IR tablet 10 mg (Roxicodone) 10 mg, oral, Every 4 hours PRN, severe pain or score 7-10 of 10, for breakthrough pain, Starting on 07/13/24 at 1952, Pain unrelieved by other oral analgesics. Given 07/20/2024 2:55 AM STRUCTURAL METAL WORKER 10 mg Given 07/19/2024 3:03 AM STRUCTURAL METAL WORKER 10 mg Given 07/18/2024 9:07 PM STRUCTURAL METAL WORKER 10 mg oxyCODONE IR tablet 5 mg (Roxicodone) 5 mg, oral, Every 4 hours PRN, moderate pain or score 4-6 of 10, for breakthrough pain, Starting on 07/13/24 at 1952, Pain unrelieved by other oral analgesics. Given 07/20/2024 8:50 AM STRUCTURAL METAL WORKER 5 mg Given 07/19/2024 6:05 PM STRUCTURAL METAL WORKER 5 mg Given 07/19/2024 12:20 PM STRUCTURAL METAL WORKER 5 mg polyethylene glycol powder packet 1 packet (Miralax) 1 packet, oral, Daily PRN, constipation, Starting on 07/13/24 at 1952, Dissolve in 240 mLs (8 ounces) of water prior to giving. Avoid mixing with starch-based thickened liquids. pregabalin capsule 200 mg (Lyrica) 200 mg, oral, 3 times daily, First dose on 07/13/24 at 2100 Given 07/20/2024 8:42 AM STRUCTURAL METAL WORKER 200 mg Given 07/19/2024 8:37 PM STRUCTURAL METAL WORKER 200 mg Given 07/19/2024 1:45 PM STRUCTURAL METAL WORKER 200 mg prochlorperazine injection 5 mg (Compazine) 5 mg, intravenous, Every 6 hours PRN, nausea, vomiting, Starting on 07/13/24 at 1953 sennosides tablet 17.2 mg (Senokot) 17.2 mg, oral, Daily, First dose on 07/14/24 at 0900, Do not give if patient has diarrhea Given 07/19/2024 8:41 AM STRUCTURAL METAL WORKER 17.2 mg Given 07/18/2024 7:35 AM STRUCTURAL METAL WORKER 17.2 mg Given 07/17/2024 8:09 AM STRUCTURAL METAL WORKER 17.2 mg sodium chloride 0.9 % injection 10-30 mL 10-30 mL, intravenous, As needed, line care, Peripherally Inserted Central Catheter Non-Valved, Starting on Gloria 07/18/24 at 2034, Prior to and following infusion and between multiple consecutive infusions, flush 10 mL per lumen. sodium chloride 0.9 % injection 10-30 mL 10-30 mL, intravenous, Every 12 hours scheduled, First dose on Gloria 07/18/24 at 2100, Peripherally Inserted Central Catheter Non-Valved: When no infusion to maintain patency flush 10 mL per lumen. Given 07/20/2024 9:12 AM STRUCTURAL METAL WORKER 10 mL Given 07/19/2024 9:39 AM STRUCTURAL METAL WORKER 10 mL Given 07/18/2024 9:24 PM STRUCTURAL METAL WORKER 10 mL sodium chloride 0.9 % injection 20-60 mL 20-60 mL, intravenous, As needed, line care, Peripherally Inserted Central Catheter Non-Valved, Starting on Gloria 07/18/24 at 2034, Pior to and following blood sampling and post blood transfusion, flush 20 mL per lumen. documented in this encounter Active and Recently Administered Medications Times are shown in STRUCTURAL METAL WORKER. Scheduled Medication Order 07/18/2024 07/19/2024 07/20/2024 acetaminophen tablet 1,000 mg (TylenoL) 1,000 mg, oral, Every 6 hours, First dose on 07/13/24 at 2100 0242 (Given - Provider: Dandre Hollis R.N.)0735 (Given - Provider: Candi Leonard R.N.)1418 (Given - Provider: Candi Leonard R.N.)1941 (Given - Provider: Myke Alexander R.N.) 0303 (Given - Provider: Myke Alexander R.N.)0841 (Given - Provider: Malcolm Cordon R.N.)1531 (Given - Provider: Malcolm Cordon R.N.)203 (Given - Provider: Isis Flaherty R.N.) 0256 (Given - Provider: Isis Flaherty R.N.)0840 (Given - Provider: Malcolm Cordon R.N.) buPROPion XL 24 hr tablet 150 mg (Wellbutrin XL) 150 mg, oral, Daily, First dose on 07/14/24 at 0900, Swallow whole. Do NOT crush, chew, or split tablet. 0734 (Given - Provider: Candi Leonard R.N.) 0839 (Given - Provider: Malcolm Cordon R.N.) 0842 (Given - Provider: Malcolm Cordon R.N.) buPROPion XL 24 hr tablet 300 mg (Wellbutrin XL) 300 mg, oral, Daily, First dose on 07/14/24 at 0900, Swallow whole. Do NOT crush, chew, or split tablet. 0736 (Given - Provider: Candi Leonard R.N.) 0841 (Given - Provider: Malcolm Cordon R.N.) 0841 (Given - Provider: Malcolm Cordon R.N.) cariprazine capsule 4.5 mg (Vraylar) 4.5 mg, oral, Daily at bedtime, First dose (after last modification) on 07/14/24 at 2100 2123 (Given - Provider: Myke Alexander R.N.) 2037 (Given - Provider: Isis Flaherty R.N.) cefTRIAXone in dextrose (iso osm) IVPB 2 g (Rocephin) 2 g, intravenous, at 200 mL/hr, Administer over 15 Minutes, Every 24 hours, First dose on Mon07/17/24 at 1600, Drug Monitoring Program: Pharmacist to adjust medication dosing based on indication and drug clearance factors., Indications: empyema 1631 (New Bag - Provider: Candi Leonard R.N.) 1152 (New Bag - Provider: Malcolm Cordon R.N.) 0843 (New Bag - Provider: Malcolm Cordon R.N.) DULoxetine DR capsule 60 mg (Cymbalta) 60 mg, oral, Daily, First dose on Mon07/14/24 at 0900, See tube feeding guidelines for tube feeding administration instructions. 0735 (Given - Provider: Candi Leonard R.N.) 0840 (Given - Provider: Malcolm Cordon R.N.) 0840 (Given - Provider: Malcolm Cordon R.N.) heparin (porcine) injection 5,000 Units 5,000 Units, subcutaneous, Every 8 hours scheduled, First dose on Mon07/16/24 at 0600 0501 (Given - Provider: Mariluz Daniel RDmitryNDmitry)1357 (Given - Provider: Candi Leonard R.N.)2107 (Given - Provider: Myke Alexander R.N.) 0546 (Given - Provider: Myke Alexander R.N.)1345 (Given - Provider: Malcolm Cordon R.N.)2036 (Given - Provider: Isis Flaherty R.N.) 0549 (Given - Provider: Isis Flaherty R.N.) lidocaine 10 mg/mL (1 %) injection 0-10 mL (Xylocaine) 0-10 mL, intradermal, Once, On Mon07/18/24 at 1545, For 1 dose, Administer intradermally prior to PICC placement. Patient 18 years and older - 1 mL (may repeat twice up to 1 mL each PICC insertion attempt if patient complains or pain or discomfort at injection site. 1545 (Due) lidocaine 5 % 1 patch (Lidoderm) 1 patch, transdermal, Administer over 12 Hours, Daily at bedtime, First dose (after last modification) on 07/14/24 at 2100, Remove after 12 hours. 0754 (Medication Removed - Provider: Candi Leonard R.N.)2123 (Medication Applied - Provider: Myke Alexander R.N.) 0950 (Medication Removed - Provider: Malcolm Cordon R.N.)2036 (Medication Applied - Provider: Isis Flaherty R.N.) 0955 (Medication Removed - Provider: Malcolm Cordon R.N.) metroNIDAZOLE tablet 500 mg (FlagyL) 500 mg, oral, 3 times daily, First dose on 07/17/24 at 2100, Drug Monitoring Program: Pharmacist to adjust medication dosing based on indication and drug clearance factors., Indications: empyema 0735 (Given - Provider: Candi Leonard R.N.)1357 (Given - Provider: Candi Leonadr R.N.)2106 (Given - Provider: Myke Alexander R.N.) 0838 (Given - Provider: Malcolm Cordon R.N.)134 (Given - Provider: Malcolm Cordon R.N.)2036 (Given - Provider: Isis Flaherty R.N.) 0842 (Given - Provider: Malcolm Cordon R.N.) pregabalin capsule 200 mg (Lyrica) 200 mg, oral, 3 times daily, First dose on 07/13/24 at 2100 0735 (Given - Provider: Candi Leonard R.N.)1357 (Given - Provider: Candi Leonard R.N.)2106 (Given - Provider: Myke Alexander R.N.) 0838 (Given - Provider: Malcolm Cordon R.N.)1345 (Given - Provider: Malcolm Cordon R.N.)2036 (Given - Provider: Isis Flaherty R.N.) 0842 (Given - Provider: Malcolm Cordon R.N.) sennosides tablet 17.2 mg (Senokot) 17.2 mg, oral, Daily, First dose on 07/14/24 at 0900, Do not give if patient has diarrhea 0735 (Given - Provider: Candi Leonard R.N.) 0841 (Given - Provider: Malcolm Cordon R.N.) 0843 (Not Given - Provider: Malcolm Cordon R.N. - Reason: Patient/family refused) sodium chloride 0.9 % injection 10-30 mL 10-30 mL, intravenous, Once, On Gloria 07/18/24 at 1545, For 1 dose, 10 mL flush to each lumen 1545 (Due) sodium chloride 0.9 % injection 10-30 mL 10-30 mL, intravenous, Every 12 hours scheduled, First dose on Gloria 07/18/24 at 2100, Peripherally Inserted Central Catheter Non-Valved: When no infusion to maintain patency flush 10 mL per lumen. 2123 (Given - Provider: Myke Alexander R.N.) 0939 (Given - Provider: Malcolm Cordon R.N.)2120 (Not Given - Provider: Isis Flaherty R.N. - Reason: Other) 0912 (Given - Provider: Malcolm Cordon R.N.) PRN Medication Order 07/18/2024 07/19/2024 07/20/2024 bisacodyL suppository 10 mg (Dulcolax) 10 mg, rectal, Every 12 hours PRN, constipation, Starting on 07/15/24 at 1849, If no bowel movement within 2 hours following magnesium hydroxide, do not give if patient has diarrhea. calcium carbonate chewable tablet 400 mg of calcium (Tums) 400 mg of calcium, oral, Every 4 hours PRN, heartburn, Starting on 07/13/24 at 1953, Doses listed are in mg of elemental calcium. Take with food. 500 mg calcium carbonate contains 200 mg of elemental calcium. D5W infusion 1-999 mL/hr, intravenous, As needed, Medications Incompatible with 0.9% NaCL, Starting on Gloria 07/18/24 at 2035, Infuse at the same rate as the piggyback until tubing clears or up to a volume of 20 mL pre and post infusion for medications incompatible with 0.9% NaCL. Use 50 mL bag then discard. HYDROmorphone (PF) injection 0.2 mg (Dilaudid) (CANCELED) 0.2 mg, intravenous, Every 1 hour PRN, severe pain or score 7-10 of 10, Starting on Mon07/13/24 at 1953 0243 (Given - Provider: Dandre Hollis R.N.)0727 (Given - Provider: Candi Leonard RDmitryNDmitry) ibuprofen tablet 400 mg 400 mg, oral, Every 6 hours PRN, moderate pain or score 4-6 of 10, severe pain or score 7-10 of 10, Starting on Mon07/19/24 at 2135, Take with food or milk if GI disturbances occur with use. 2144 (Given - Provider: Isis Flaherty R.N.) 0549 (Given - Provider: Isis Flaherty R.N.) ipratropium-albuteroL 0.5-2.5 mg/3 mL nebulizer solution 3 mL (DuoNeb) 3 mL, nebulization, 4 times daily PRN, shortness of breath, Starting on 07/13/24 at 195 ketorolac injection 15 mg (ToradoL) (CANCELED) 15 mg, intravenous, Every 6 hours PRN, moderate pain or score 4-6 of 10, Starting on Mon07/16/24 at 0950, For 5 days, Adult IV push rate: Over 15 seconds. Peds IV push rate: Over 1 minute. Doses > 15 mg IV/IM are discouraged due to lack of additional analgesic benefit. 0243 (Given - Provider: Dandre Hollis R.N.)1228 (Given - Provider: Candi Leonard RDmitryN.)2342 (Given - Provider: Myke Alexander R.N.) 0546 (Given - Provider: Myke Alexander R.N.) LORazepam tablet 0.5 mg (Ativan) 0.5 mg, oral, Daily PRN, anxiety, Starting on 07/13/24 at 2008 magnesium hydroxide suspension 30 mL (Milk of Magnesia) 30 mL, oral, Every 12 hours PRN, constipation, Starting on Mon07/15/24 at 1849, If no bowel movement within 24 hours of starting Senna and Docusate, do not give if patient has diarrhea. methocarbamoL tablet 500 mg (Robaxin) 500 mg, oral, 4 times daily PRN, muscle spasms, Starting on Mon07/17/24 at 1604 1357 (Given - Provider: Candi Leonard R.N.)1941 (Given - Provider: Myke Alexander R.N.) 0402 (Given - Provider: Tara Stout R.N.)1043 (Given - Provider: Malcolm Cordon R.N.)1805 (Given - Provider: Malcolm Cordon R.N.) 0549 (Given - Provider: Isis Flaherty R.N.) NaCl 0.9% infusion 1-999 mL/hr, intravenous, As needed, Between Consecutive Piggyback Medications, Starting on Gloria 07/18/24 at 2034, For 7 days, Infuse at the same rate as the piggyback until tubing clears or up to a volume of 20 mL. Select for IV medication administration when no maintenance IV available or when IV medications are not compatible with maintenance fluid. NaCl 0.9% infusion 1-999 mL/hr, intravenous, As needed, Post Medications (Hazardous/Low Fluid Volume), Starting on Gloria 07/18/24 at 2034, For 7 days, Infuse at the same rate as the medication until tubing cleared of medication, then discard. naloxone injection 0.2 mg (Narcan) 0.2 mg, intravenous, As needed, respiratory depression, Starting on 07/13/24 at 1953, For RASS Score -4 or less, respiratory rate of less than 8 breaths/min. Notify provider/service and rapid response team (if available at institution). ondansetron (PF) injection 4 mg (Zofran) 4 mg, intravenous, Every 6 hours PRN, nausea, vomiting, Starting on 07/13/24 at 1953, Use ondansetron before droperidol. oxyCODONE IR tablet 10 mg (Roxicodone)(Linked Group 1) 10 mg, oral, Every 4 hours PRN, severe pain or score 7-10 of 10, for breakthrough pain, Starting on 07/13/24 at 1953, Pain unrelieved by other oral analgesics. 0044 (Given - Provider: Dandre Hollis RDmitryN.)0501 (Given - Provider: Mariluz Daniel R.N.)1646 (Given - Provider: Candi Leonard R.N.)2106 (Given - Provider: Myke Alexander R.N.) 0301 (See Alternative - Provider: Myke Alexander R.N.)0303 (Given - Provider: Myke Alexander R.N.)0840 (See Alternative - Provider: Malcolm Cordon R.N.)1220 (See Alternative - Provider: Malcolm Cordon R.N.)1805 (See Alternative - Provider: Malcolm Cordon R.N.) 0255 (Given - Provider: Isis Flaherty R.N.)0850 (See Alternative - Provider: Malcolm Cordon R.N.) oxyCODONE IR tablet 5 mg (Roxicodone)(Linked Group 1) 5 mg, oral, Every 4 hours PRN, moderate pain or score 4-6 of 10, for breakthrough pain, Starting on 07/13/24 at 1953, Pain unrelieved by other oral analgesics. 0044 (See Alternative - Provider: Dandre Hollis R.N.)0501 (See Alternative - Provider: Mariluz Daniel RSelvin)1646 (See Alternative - Provider: Candi Leonard RSelvin)2106 (See Alternative - Provider: Myke Alexander R.N.) 0301 (Not Given - Provider: Myke Alexander R.N. - Reason: Other - Comment: see alt)0303 (See Alternative - Provider: Myke Alexander R.N.)0840 (Given - Provider: Malcolm Cordon R.N.)1220 (Given - Provider: Malcolm Cordon R.N.)1805 (Given - Provider: Malcolm Cordon R.N.) 0255 (See Alternative - Provider: Isis Flaherty R.N.)0850 (Given - Provider: Malcolm Cordon R.N.) polyethylene glycol powder packet 1 packet (Miralax) 1 packet, oral, Daily PRN, constipation, Starting on 07/13/24 at 1952, Dissolve in 240 mLs (8 ounces) of water prior to giving. Avoid mixing with starch-based thickened liquids. prochlorperazine injection 5 mg (Compazine) 5 mg, intravenous, Every 6 hours PRN, nausea, vomiting, Starting on 07/13/24 at 1952 sodium chloride 0.9 % injection 10-30 mL 10-30 mL, intravenous, As needed, line care, Peripherally Inserted Central Catheter Non-Valved, Starting on Gloria 07/18/24 at 2034, Prior to and following infusion and between multiple consecutive infusions, flush 10 mL per lumen. sodium chloride 0.9 % injection 20-60 mL 20-60 mL, intravenous, As needed, line care, Peripherally Inserted Central Catheter Non-Valved, Starting on Gloria 07/18/24 at 2034, Pior to and following blood sampling and post blood transfusion, flush 20 mL per lumen. Linked Groups Order Group 1: oxyCODONE IR tablet 5 mg (Roxicodone)Jump to med 5 mg, oral, Every 4 hours PRN, moderate pain or score 4-6 of 10, for breakthrough pain, Starting on 07/13/24 at 1952, Pain unrelieved by other oral analgesics. Or oxyCODONE IR tablet 10 mg (Roxicodone)Jump to med 10 mg, oral, Every 4 hours PRN, severe pain or score 7-10 of 10, for breakthrough pain, Starting on 07/13/24 at 1952, Pain unrelieved by other oral analgesics. documented in this encounter Additional Health Concerns Assessment Noted Time PHQ-9 Depression Total Score: 22 025 7:19 PM [employer] documented as of this encounter Care Teams Tax Evaluator Relationship Specialty Start Date End Date Prudence Mena MPAS, P.A.-C. [address] [place] [address] Samantha CONNELLYDESHAUN [id number] PCP - General Internal Medicine 02/08/24 documented as of this encounter
--- OUTSIDE RECORDS SUMMARY | 2024-07-28 21:16 | XMS_ITS | Encounter Summary ---
Author Organization [facility] Address [address] [place] [id number] Care Team Providers Care Laborer [employer] Name Role Phone Prudence Mena P.A.-C. Primary Care Pro vider Reason for Referral * Outpatient (Routine) - Authorized Specialty Diagnoses / Procedures Referred By Contac t Referred To Contact Diagnoses Empyema Pleural (HCC) Procedures Perform central line up machine operator: Flush port(s), Site care Melinda Isaac APRN, C.N.P. [address] [place] [phone] Phone: tel: fax: [facility] Region Referral ID Status Reason Start Date Expiration Date V isits Requested Visits Authorized [id number] Authorized 07/19/2024 07/19/2025 1 1 CONTROL INSTRUCTOR * Outpatient (Routine) - Closed Specialty Diagnoses / Procedures Referred By Contac t Referred To Contact Diagnoses Empyema Pleural (HCC) Procedures Perform central line up machine operator: Site care, Flush port(s) Melinda Isaac APRN, C.N.P. [address] [place] [phone] Phone: tel: fax: [facility] Region Referral ID Status Reason Start Date Expiration Date Visits Re quested Visits Authorized [id number] Closed 07/19/2024 07/19/2025 1 1 CONTROL INSTRUCTOR * Outpatient (Routine) - Authorized Specialty Diagnoses / Procedures Referred By Contac t Referred To Contact Thoracic Surgery Melinda Isaac APRN, C.N.P. [address] [place] [phone] Phone: tel: fax: [facility] Referral ID Status Reason Start Date Expiration Date V isits Requested Visits Authorized [id number] Authorized 07/19/2024 01/18/2026 1 1 CONTROL INSTRUCTOR * Outpatient (Routine) - Authorized Specialty Diagnoses / Procedures Referred By Contac t Referred To Contact Diagnoses Empyema Pleural (HCC) Procedures DX Chest AP or PA and Lateral 2 Views Melinda Isaac APRN, C.N.P. [address] [place] [phone] Phone: tel: fax: [facility] Referral ID Status Reason Start Date Expiration Date V isits Requested Visits Authorized [id number] Authorized 07/19/2024 07/19/2025 1 1 CONTROL INSTRUCTOR Reason for Visit * Auth/Cert (Routine) Specialty Diagnoses / Procedures Referred By Contac t Referred To Contact Diagnoses Empyema Pleural (HCC) Pleuritic chest pain. empyema Procedures INPT Referral ID Status Reason Start Date Expiration Date Visits Re quested Visits Authorized [id number] 1 1 Encounter Details Date Type Department Care Team (Latest Contact Info) Description 07/13/2024 7:53 PM WELL CONTROL INSTRUCTOR - 07/20/2024 10:16 AM WELL CONTROL INSTRUCTOR Hospital Encounter [facility], Tenth Floor [address] [place] [phone] Patrick Mtz M.D., Ph.D. [address] [place] [phone] Empyema Pleural (HCC) (Primary Dx) Discharge Disposition: Home or Self Care Social History Tobacco Use Types Packs/Day Years Used Date Smoking Tobacco: Former Cigarettes 1.5 0.1 S tarted: 06/21/2024 Passive Smoke Exposure: Past Smokeless Tobacco: Never Alcohol Use Standard Drinks/Week Comments Yes 0 (1 standard drink = 0.6 oz pur e alcohol) socially [facility] Utilities Answer Date Recorded In the past 12 months has e [employer], gas, oil, or water [employer] threatened to shut off services in your [...] Never 07/27/2022 How often do you attend confucianism or bahai serv ices? Never 07/27/2022 Do you belong to any clubs o r organizations such as confucianism groups, unions, fraternal or athletic groups, or [...] Answer Date Recorded PHQ-2 Score 6 07/10/2024 [facility] - Occupational Stress Questionnaire Answer [...] Sign Reading Time Taken Comments Blood Pressure 146/104 07/20/2024 8:45 AM WELL CONTROL INSTRUCTOR Pulse 92 07/20/2024 9:00 AM WELL CONTROL INSTRUCTOR Temperature 36.6 C (97.9 F) 07/20/2024 8:45 AM WELL CONTROL INSTRUCTOR Respiratory Rate 16 07/20/2024 8:45 AM WELL CONTROL INSTRUCTOR Oxygen Saturation 93% 07/20/2024 9:00 AM WELL CONTROL INSTRUCTOR Inhaled Oxygen Concentration - - Weight 99.7 kg (219 lb 12.8 oz) 07/17/2024 7:14 PM WELL CONTROL INSTRUCTOR Height 163 cm (5' 4.17) 07/17/2024 3:00 PM WELL CONTROL INSTRUCTOR Body Mass Index 37.53 07/17/2024 3:00 PM WELL CONTROL INSTRUCTOR documented in this encounter Functional Status * Intimate Partner Violence Question Answer Date of Assessment Author Within the last year, have y ou been humiliated or emotionally abused in other ways by your partner or ex-partner? No 07/15/2024 8:00 PM WELL CONTROL INSTRUCTOR Helena Brady, R.N. Within the last year, have y ou been afraid of your partner or ex-partner? No 07/15/2024 8:00 PM WELL CONTROL INSTRUCTOR Helena Brady, R.N. Within the last year, have y ou been raped or forced to have any kind of sexual activity by your partner or ex-partner? No 07/15/2024 8:00 PM WELL CONTROL INSTRUCTOR Helena Brady, R.N. Within the last year, have y ou been kicked, hit, slapped, or otherwise physically hurt by your partner or ex-partner? No 07/15/2024 8:00 PM WELL CONTROL INSTRUCTOR Helena Brady R.N. documented as of this encounter Discharge Summaries * Shahram Abernathy APRN, C.N.P., M.S. - 07/20/2024 10:16 AM CST DISCHARGE SUMMARY BRIEF OVERVIEW Hospital: [facility] Discharge Provider: Patrick Mtz M.D. Primary Team: [facility] Thoracic Surgery - [place] Primary Care Providers: Prudence Mena MPAS, P.A.-C. (General) [address] [facility] [phone] Primary Care Provider Primary Care Provider Other [...] INDICATED. Patrick Mtz M.D., Ph.D.Catrina Sutton M.D. [facility] ROMB OR DISCHARGE DISPOSITION Home or [...] with any questions or issues. Admin Ast: [phone] (M-F 8 AM to 5 PM) Steel Fixer: [phone] (Thoracic Surgery Fish Housekeeper for Nights & Weekend Urgent Issues) Appointments: [phone] INFECTIOUS DISEASES THERAPY RECOMMENDATIONS Antimicrobial plan: Patient [...] of Infectious Diseases OPAT monitoring program at [phone]. Should patient be enrolled in OPAT/COPAT program: [...] 10 Appointments 07/21/2024 9:00 AM CHAIR 01 [facility] 02 INF Infusion Therapy 07/22/2024 9:00 AM CHAIR 05 [facility] 02 INF Infusion Therapy 07/23/2024 9:00 AM CHAIR 05 [facility] 02 INF Infusion Therapy 07/24/2024 9:00 AM CHAIR 03 [facility] XX INF Infusion Therapy 07/25/2024 9:00 AM CHAIR 05 [facility] 02 INF Infusion Therapy 07/26/2024 9:00 AM CHAIR 05 [facility] 02 INF Infusion Therapy 07/27/2024 9:00 AM CHAIR 01 [facility] 02 INF Infusion Therapy 07/28/2024 9:00 AM CHAIR 01 [facility] 02 INF Infusion Therapy 07/29/2024 10:00 [...] female who was a direct admission from [facility] on for a left-sided empyema. She proceeded [...] discharge services today: greater than 30 minutes. CONTROL INSTRUCTOR documented in this encounter Discharge Instructions * Attachments The following attachments cannot be sent through Care Everywhere. * Acute Pain and the Healing Process * Ceftriaxone (By injection) (Filipino) * Ibuprofen (By mouth) (Filipino) * Methocarbamol (By mouth) (Filipino) * Metronidazole (By mouth) (Filipino) * Oxycodone, Rapid Release (By mouth) (Filipino) * Laxative, Stimulant (By mouth) (Filipino) documented in this encounter Medications at Time [...] a venous catheter daily for 17 days. [facility] 07/19/2024 cholecalciferol (VITAMIN D3) 50 mcg [...] muscle spasms. 45 tablet 07/20/2024 10:13 AM WELL CONTROL INSTRUCTOR 07/19/2024 metroNIDAZOLE (FlagyL) 500 mg tabletIndication s:Empyema Take 1 tablet (500 mg total) by mouth 3 (three) times a day for 17 days Indications: Empyema. 51 tablet 07/20/2024 10:13 AM WELL CONTROL INSTRUCTOR 07/19/2024 multivitamin capsule Take 1 capsule by [...] Pain Exception. 28 tablet 07/20/2024 10:13 AM WELL CONTROL INSTRUCTOR 07/19/2024 5 documented as of this encounter Progress Notes [...] Discharge today Patient discussed with Dr. Mtz. CONTROL INSTRUCTOR * Denny Ann R.RSachi., L.R.T. - 07/20/2024 7:32 AM CST 07/20/24 0732 Nocturnal Oxygen Assessment Asleep Room Air SpO2 86 Percent Oxygen Flow Rate 1 L/min (via nasal cannula) Nocturnal oxygen assessment completed. Patient's SpO2 was at or below 88% for 5 minutes or greater.Any desaturations on trend lower than patient SpO2 is considered artifact. Electronically signed by: Denny Ann R.R.T., L.R.T. 07/20/24 7:32 AM WELL CONTROL INSTRUCTOR CONTROL INSTRUCTOR * Kusum Urena R.RDmitryT., L.R.T. - 07/19/2024 1:53 PM CST 07/19/24 [...] tolerated. Electronically signed by: Kusum Urena R.R.T., Christian 07/19/24 1:54 PM WELL CONTROL INSTRUCTOR CONTROL INSTRUCTOR * Lopez Garvey M.D. - 07/19/2024 12:18 [...] 3 completed shifts: In: 540 [P.O.:470] Out: 5 [Urine:2049; Chest Tube:95] Exam: -single chest tube remaining with serosanguinous output and now air leak Plan: - PA Lateral chest xray - Remove remaining chest tube then post pull PA lateral CXR - Preparation for home IV antibiotics - Encourage ambulance Patient discussed with Dr. Mtz. CONTROL INSTRUCTOR * Arlyn Starr, Max, L.R.T. - 07/18/2024 12:39 PM CST 07/18/24 [...] Arlyn Starr R.R.T., L.R.T. 07/18/24 12:39 PM WELL CONTROL INSTRUCTOR CONTROL INSTRUCTOR CONTROL INSTRUCTOR * Summer Anna Ailyn Earl 07/18/2024 12:26 PM CST Clinical Nutrition: Initial Assessment RECOMMENDATIONS REQUIRING MD/PROVIDER ORDER No changes at this time; continue current nutrition orders For questions about patient's nutritional care please contact pager [phone] on weekdays or [phone] on weekends/holidays. NUTRITION ASSESSMENT: Ms. Kumar is [...] from outside of the hospital such as [facility] [employer]. She currently feels likes [...] patient report. ESTIMATED NEEDS: Total Calorie Needs: 2913-5089 calories/day Method to Estimate Energy Needs: Island-St Jeor ( ) Weight Used for Equation Calculations: 96 kg Total Protein Needs: 77 - 96 grams/day Method to Estimate Protein Needs (g/kg): 0.8 - 1 gm/kg Weight Used to Calculate Protein Needs (Kg): 96 kg Nutrition Diagnosis: Clinical risk not noted Nutrition Intervention: Medical food supplement Monitoring/Evaluation: Nutrition parameter to monitor: Meals/Supplement Intake, Weight Status CONTROL INSTRUCTOR * Patrick Mtz M.D., Ph.D. - 07/18/2024 10:56 AM CST I visited face to face with the patient on NT10 this morning. We will obtain an updated chest x-raywith a view towards removing 1 of her chest tubes today. We will follow the recommendations of our Infectious Disease colleagues regarding ongoing antibiotic management. CONTROL INSTRUCTOR * Magno Fisher, Ph.D. - 07/18/2024 8:59 AM CST 07/15 RA left decortication, anterior [...] Encourage ambulance Patient discussed with Dr. Mtz. CONTROL INSTRUCTOR * Kayleigh Small M.D. - 07/18/2024 8:24 [...] Please page the ICU-ID service pager at [phone] with questions. Thank you for the consultation. Discussed with Dr. Camejo, ID service consultant and the primary team. Kayleigh Small [...] of Infectious Diseases OPAT monitoring program at [phone]. Should patient be enrolled in OPAT/COPAT program: [...] Camejo M.D., M.S. at 07/18/2024 1:06 PM WELL CONTROL INSTRUCTOR CONTROL INSTRUCTOR CONTROL INSTRUCTOR Associated attestation - Hay Camejo M.D., M.S. - 07/18/2024 1:06 PM WELL CONTROL INSTRUCTOR I saw and evaluated the patient, participating [...] note for further details. * Montrell Garland, R.R.Shefali., L.R.T. - 07/17/2024 1:04 PM CST 07/17/24 [...] Montrell Garland R.R.T., Christian 07/17/24 1:04 PM WELL CONTROL INSTRUCTOR CONTROL INSTRUCTOR * Lopez Garvey M.D. - 07/17/2024 9:19 [...] spirometer Discussed with Dr. Smith Garvey MD CONTROL INSTRUCTOR * Jarocho Belle, R.Ph. - 07/16/2024 1:12 PM CST Pharmacokinetic Consult - Vancomycin Dosing Melinda Kumar is a 39 y.o. female who has received a pharmacy consult for vancomycin therapyfor dose optimization and monitoring. Indication: Respiratory tract infection, healthcare associated Goal trough: 10-15 mcg/mL OBJECTIVE There is no height or weight on file to calculate BMI. Eagar body weight: 55.1 kg Adjusted ideal body [...] to date: LYTES - Peak/Trough: --/8.9* (07/16 1031) ASSESSMENT / PLAN Vancomycin trough was 8.9 this morning. Goal vancomycin trough of 10-15 mcg/ml. Vancomycin increased to 1900 mg IV q12h Pharmacy will continue to follow the patient's clinical progress daily. Jarocho Belle, Eleazar.Ph. CONTROL INSTRUCTOR * Gema Srinivasan R.R.T., MarcellusRSachi. - 07/16/2024 11:34 AM CST 07/16/24 1133 [...] tolerated. Electronically signed by: Gema Srinivasan R.R.T., Christian 07/16/24 11:34 AM WELL CONTROL INSTRUCTOR CONTROL INSTRUCTOR * Lopez Garvey M.D. - 07/16/2024 9:46 AM CST Ms. Kumar is POD 1 from left robotic decortication, 2 chest tubes were left in place Patient is afebrile and hemodynamically stable. She had a [address] LIGHT started overnight for pain control. She otherwise [...] Position: Pulse: 96 99 106 108 Resp: 05 17 11 15 Temp: TempSrc: Intake/Output Summary (Last [...] spirometer Discussed with Dr. Smith Garvey MD CONTROL INSTRUCTOR * Patrick Mtz M.D., Ph.D. - 07/16/2024 [...] drains will remain in place for today. CONTROL INSTRUCTOR * Lopez Garvey M.D. - 07/15/2024 7:36 AM CST Ms. Kumar is a 39-year-old female who was a direct admission from [facility] on for a left-sided empyema. Patient reports [...] female who was a direct admission from [facility] on for a left-sided empyema. She will be proceeding to the operating room tomorrow for left VATS decortication. Plan: -continue IV antibiotics -OR today Discussed with Dr. Smith Garvey MD CONTROL INSTRUCTOR * Lopez Garvey M.D. - 07/14/2024 9:00 AM CST Ms. Kumar is a 39-year-old female who was a direct admission from [facility] on for a left-sided empyema. Patient reports [...] female who was a direct admission from [facility] on for a left-sided empyema. She will be proceeding to the operating room tomorrow for left VATS decortication. Plan: -continue IV antibiotics -regular diet today, NPO at midnight -continue pain control -patient has listed, will be consented and site marked for operating room tomorrow Discussed with Dr. Smith Garvey MD CONTROL INSTRUCTOR * Maxim Freed Pharm.DDmitry, R.Ph., BCPS - 07/14/2024 8:27 AM CST Images from the original note were not included. Pharmacist Progress Note Reason for admission: direct admission from [facility] on July 13 for a left-sided empyema [...] 0.57 mg/dL (L)). No results found for: DALI ELDRIDGE VANCOPEAK Date Vancomycin dose Trough (mcg/mL) sCr [...] List Status: Pharmacy Complete Set By: Maxim Freed Pharm.D., R.Ph., BCPS at 07/14/2024 8:25AM Taking? 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 CONTROL INSTRUCTOR documented in this encounter H&P Notes * Lopez Garvey M.D. - 07/13/2024 7:38 PM CST History and Physical SUBJECTIVE Chief Complaint:pleuritic chest pain HPI: Melinda Kumar is a 39 y.o. female with a past medical history significant for fibromyalgia, chronic back pain, asthma, sleep apnea, hypertension, depression who was directly admitted for left empyema. Patient presented at the end of June to [facility] initially with pneumonia, following influenza A infection. 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 Smith Garvey MD CONTROL INSTRUCTOR documented in this encounter Procedure Notes * Rayo Finch R.N. - 07/18/2024 8:43 PM CSTAssociated Order(s): Place peripherally inserted central catheter (PICC) Place peripherally inserted central catheter (PICC) Performed by: Rayo Finch R.N. Authorized by: Eveline Mariscal, P.A.-C. Care team members present 1. Rayo Finch R.N. 2. Chas Torrez VA-BC, R.NDmitry, MARLINE PROCEDURE DETAILS Select line: PICC Line [...] with ultrasound and measured to ensure appropriate yenloyoj-us-crwe ratio of 45% or less: Right Basilic [...] to release the adhesive from the skin. [email or web address] CONTROL INSTRUCTOR documented in this encounter Consult Notes * Karen Wilkerson M.S.W., Arminda. - 07/18/2024 12:33 PM CSTAssociated Order(s): IP CONSULT TO CARE MANAGEMENT Psychosocial Assessment SUBJECTIVE ASSESSMENT INFORMATION Referral Data Referral Source: FASHION PHOTOGRAPHER/PA Referral Reason: Psychosocial assessment, Discharge Planning Previous Assessment: No Registered Private Duty Nurse Services Used: No Primary Language: Filipino Registered Private Duty Nurse Services Used: No Sexuality/Pronoun: Straight / Person(s) [...] PRESENT ILLNESS Patient is currently hospitalized at [facility] on [place] [address]. Patient shares that she cameto the hospital for Pneumonia. SOCIAL HISTORY Family / Household: Patient reports living in a multi level town home with her 4 sons ages 17, 17, 15 and 10. Support System: 4 children and family in [place] Spirituality/Quaker/Cultural Factors: None History: No Employment: disabled Psychosocial [...] functioning Family support OBJECTIVE FINANCES/INSURANCE Primary insurance: BCBS BLUE PLUS HMO Secondary insurance: N/A Financial concerns: No ADVANCE DIRECTIVES Legal Decision Maker: Self Advance Directives: N/A Advance Directives Status: N/A BASELINE FUNCTIONAL STATUS Baseline Activities of Daily Living Mobility: Independent Dressing: Independent Feeding: Independent Bathing: Independent Grooming: Independent Toileting: Independent Behavior: Pleasant, Calm, Appropriate, Oriented, Cooperative Communication: Can write, Talks, Understands speaking, Understands Filipino Shopping: Needs assistance Medication Management: Independent Housekeeping: Needs assistance Meal Prep: Independent Assistive Devices: None BASELINE SERVICES/RESOURCES Primary care clinic and provider: [facility] P.[facility].-[facility]. Services/Resources: No services or resources prior [...] current substance use. ASSESSMENT / PLAN DISCUSSION Hydrometer Tester met with patient in hospital room to provide a supportive visit, complete a psychosocial, and assist with discharge needs. Introduced self and reviewed role of inpatient Social Work, including legal responsibility as a mandated cps team lead. Patient expressed understanding of the purpose of [...] our ownership and financial relationship of the [facility] beds, home health, and hospice agencies. Reviewed [facility] medicaid insurance coverage and provided in-network options. Patient anticipates discharging home once medically ready without patient infusions at [facility]. Patient reports no further questions currently. Encouraged patient to contact Hydrometer Tester should additional needs arise. submarine worker returned to inform patient that [facility] is not open on weekends and that she willneed to go to [place]. Patient was agreeable to this. Patient's mother was in the room and shared that she had a question for psychotherapist social worker. Patient's mother asked about help with cleaning around the home. submarine worker explained the [place] through the [...] PLAN Outpatient infusions will be obtained through: [facility] Monday- Monday and [facility] on Weekends. Phone for scheduling- [phone] Phone for [phone] NURSING: - Call to arrange for the patient???s first visit Prior to 3 pm Monday if Discharging over the weekend. - Adjust the dosing schedule to accommodate [facility] schedule. - Complete documentation in the Discharge Navigator including Nursing Report Info and Facility/NextLevel of Care Info PRIMARY SERVICE: - Complete infusion therapy and lab orders in [facility] as needed. - Identify the continuing care provider, who will follow the patient while receiving outpatient infusion at [facility]. Social Work : -Will continue to follow. Anticipated barriers to the transition of care/plan: None identified at this time. Destiny Gonzales, HamletS.W. 07/18/2024 CONTROL INSTRUCTOR CONTROL INSTRUCTOR * Kayleigh Small M.D. - 07/17/2024 10:59 [...] empyema. Interval history includes initial presentation to [facility] ED 06/26/2024 and was prescribed azithromycin and prednisone for walking pneumonia. She was admitted to [facility] 06/30/2024-07/04/2024 with sepsis secondary to left lower lobe pneumonia and was treated with IV antibiotics and IV steroid. She was discharged on 07/04/2024 on oral antibiotics (doxycycline for 5 days. After d ischarge patient continued continued to have shortness of breath and left pleuritic chest pain. Dueto worsening in symptoms she presented again to [facility] where she underwent CT chest which showed worsening left pleural effusion and empyema. [facility] She underwent left robotic [...] - Date/Time Bacterial Culture, Anaerobic + Susceptibility [[id number]] Collected: 07/15/24 1600 Lab Status: Preliminary result Specimen: Tissue from Pleura, Left Updated: 07/17/24 0739 Bacterial Culture, Anaerobic + Susc No growth to date. Fungal Culture, Routine [[id number]] Collected: 07/15/24 1600 Lab Status: In process Specimen: Tissue from Pleura, Left Updated: 07/15/24 1720 Gram Stain [[id number]] Collected: 07/15/24 1600 Lab Status: Final result Specimen: Tissue from Pleura, Left Updated: 07/15/24 2218 Gram Stain No organisms seen. White blood cells, Many Acid Fast Smear for Mycobacterium [[id number]] Collected: 07/15/24 1600 Lab Status: Final result Specimen: Tissue from Pleura, Left Updated: 07/15/24 2218 Acid Fast Smear For Mycobacterium Negative. Legionella Culture [[id number]] Collected: 07/15/24 1600 Lab Status: Preliminary result Specimen: Tissue from Pleura, Left Updated: 07/17/24 0754 Legionella Culture No growth to date. Fungal Smear [[id number]] Collected: 07/15/24 1600 Lab Status: Final result Specimen: Tissue from Pleura, Left Updated: 07/16/24 0852 Fungal Smear Negative. Mycobacterial Culture [[id number]] Collected: 07/15/24 1600 Lab Status: In process Specimen: Tissue from Pleura, Left Updated: 07/15/24 1720 Actinomyces Culture [[id number]] Collected: 07/15/24 1600 Lab Status: Preliminary result Specimen: Tissue from Pleura, Left Updated: 07/17/24 0739 Actinomyces Culture No growth to date. Bacterial Culture, Aerobic + Susceptibility [[id number]] Collected: 07/15/24 1600 Lab Status: Preliminary result Specimen: Tissue from Pleura, Left Updated: 07/17/24 0847 Bacterial Culture, Aerobic + Susc No growth to date. Fungal Culture, Routine [[id number]] Collected: 07/15/241423 Lab Status: In process Specimen: Pleural Fluid, Left Updated: 07/15/24 1519 Narrative: Bacterial Culture: Placed in Bactec aerobic and Bactec anaerobic bottles Gram Stain [[id number]] Collected: 07/15/241423 Lab Status: Final result Specimen: Pleural Fluid, Left Updated: 07/15/24 2002 Gram Stain No organisms seen. White blood cells, Moderate Narrative: Bacterial Culture: Placed in Bactec aerobic and Bactec anaerobic bottles Acid Fast Smear for Mycobacterium [[id number]] Collected: 07/15/241423 Lab Status: Final result Specimen: Pleural Fluid, Left Updated: 07/15/24 2125 Acid Fast Smear For Mycobacterium Negative. Narrative: Bacterial Culture: Placed in Bactec aerobic and Bactec anaerobic bottles Fungal Smear [[id number]] Collected: 07/15/241423 Lab Status: Final result Specimen: Pleural Fluid, Left Updated: 07/15/24 1925 Fungal Smear Negative. Narrative: Bacterial Culture: Placed in Bactec aerobic and Bactec anaerobic bottles Mycobacterial Culture [[id number]] Collected: 07/15/24 142 Lab Status: In process Specimen: Pleural Fluid, Left Updated: 07/15/24 1519 Narrative: Bacterial Culture: Placed in Bactec aerobic and Bactec anaerobic bottles Bacterial Culture, Aerobic + Susceptibility [[id number]] Collected: 07/15/24 142 Lab Status: Preliminary result Specimen: Pleural Fluid, Left Updated: 07/17/24 0847 Bacterial Culture, Aerobic + Susc No growth to date. Narrative: Bacterial Culture: Placed in Bactec aerobic and Bactec anaerobic bottles Staph aureus / MRSA, Nasal, PCR [[id number]] Collected: 07/14/24 1039 Lab Status: Final result [...] Please page the ICU-ID service pager at [phone] with questions. Thank you for the consultation. Discussed with Dr. Camejo, ID service consultant and the primary team. Kayleigh Small M.D. Infectious Diseases Fellow Cosigned by Hay Camejo M.D., M.S. at 07/17/2024 2:43 PM WELL CONTROL INSTRUCTOR CONTROL INSTRUCTOR CONTROL INSTRUCTOR Associated attestation - Hay Camejo M.D., M.S. - 07/17/2024 2:43 PM WELL CONTROL INSTRUCTOR I saw and evaluated the patient, participating [...] If some point, she was admitted to [facility] at the end of June for sepsis [...] in this encounter Nursing Notes * Isis Flaherty RAlexi. - 07/20/2024 6:45 AM CST Shift Goals: Clinical Goals for the Shift: Patient will report pain control Identify possible barriers to meeting goals/advancing plan of care: None End of Shift Summary: VSS and pain well controlled with oxy, tylenol, robaxin, and ibuprofen. She ambulated safely and independently. Noc study was completed and pt qualified for [facility]. Isis Flaherty R.N. Problem: PAIN - ADULT [...] Goal: Maintain a safe environment Outcome: Progressing CONTROL INSTRUCTOR * Malcolm Cordon R.N. - 07/19/2024 4:47 [...] DC home tomorrow (07/20). Malcolm Cordon R.N. CONTROL INSTRUCTOR * Shawna Little R.N., C.M.SSilvia - 07/17/2024 10:01 PM CST Shift Goals: Clinical Goals for the Shift: Pt will state pain is tolerable after discontinuing [address]. Identify possible barriers to meeting goals/advancing plan [...] pain 6-9/10 during shift. Ice pack utilized. [address] LIGHT DC'd. Scheduled Tylenol given. PRN oxycodone, Robaxin [...] SATS above 90% Encouraged incentive spirometer use. CONTROL INSTRUCTOR * Bhumi Chawla R.N. - 07/17/2024 5:43 AM CST Shift Goals: Clinical Goals for the Shift: Patient will get adequate rest overnight and report good pain control Identify possible barriers to meeting goals/advancing plan of care: None End of Shift Summary: Sasha slept well overnight in between cares. Pain controlled with [address] LIGHT, PRN Robaxin and scheduled tylenol. She ambulated [...] Achieves optimal ventilation and oxygenation Outcome: Progressing CONTROL INSTRUCTOR * Diane Blevins R.N. - 07/15/2024 1:15 PM CST Patient came to OR with personal belongings including 4 earrings and 1 ring/piercing. Sent with patient on chart. R. Blakstad, RN CONTROL INSTRUCTOR * Candi Leonard R.N. - 07/15/2024 6:24 [...] Absence of infection during hospitalization Outcome: Progressing CONTROL INSTRUCTOR * Helena Brady R.N. - 07/14/2024 6:41 [...] Goal: Patient discharge needs identified Outcome: Progressing CONTROL INSTRUCTOR documented in this encounter OR Notes * Catrina Turcios M.D. - 07/15/2024 2:11 PM CST Pre-op Diagnosis Empyema Pleural (HCC) Post-op Diagnosis Empyema Pleural (HCC) Retention Manager A visitor information assistant actively participated and was necessary for [...] Mtz M.D., Ph.D. at 07/17/2024 8:18 AM WELL CONTROL INSTRUCTOR CONTROL INSTRUCTOR CONTROL INSTRUCTOR * Brief Op Note - Catrina Sutton M.D. - 07/15/2024 2:11 PM WELL CONTROL INSTRUCTOR Pre-op Diagnosis Empyema Pleural (HCC) Post-op Diagnosis Empyema Pleural (HCC) Findings Multiple adhesions and pockets of pus involving the pleura, lower lobe and diaphragm Complications None Catrina Cole M.D. CONTROL INSTRUCTOR documented in this encounter Miscellaneous Notes * Hospital Course - Melinda Isaac APRN, C.N.P. - 07/16/2024 8:03 AM WELL CONTROL INSTRUCTOR Ms. Kumar is a 39-year-old female who was a direct admission from [facility] on for a left-sided empyema. She proceeded [...] a general diet, and voiding without difficulty. CONTROL INSTRUCTOR CONTROL INSTRUCTOR CONTROL INSTRUCTOR CONTROL INSTRUCTOR CONTROL INSTRUCTOR CONTROL INSTRUCTOR CONTROL INSTRUCTOR CONTROL INSTRUCTOR CONTROL INSTRUCTOR CONTROL INSTRUCTOR documented in this encounter Plan of Treatment Upcoming Encounters Date Type Department Care Team (Late st Contact Info) Description 07/29/2024 10:00 AM WELL CONTROL INSTRUCTOR Infusion Department of Infusion Therapy in [address] [phone] Melinda Isaac APRN, C.N.P. [address] [place] [phone] 07/29/2024 2:20 PM WELL CONTROL INSTRUCTOR Office Visit Department of Community Internal Medicine in [address] [phone] Prudence Mena MPAS, P.A.-C. [address] [place] [phone] 07/30/2024 9:00 AM WELL CONTROL INSTRUCTOR Infusion Department of Infusion Therapy in [address] [phone] Melinda Isaac APRN, C.N.P. [address] [place] [phone] 07/31/2024 8:00 AM WELL CONTROL INSTRUCTOR Infusion Department of Infusion Therapy in [address] [phone] Melinda Isaac APRN, C.N.P. [address] [place] [phone] 08/01/2024 7:00 AM WELL CONTROL INSTRUCTOR Infusion Department of Infusion Therapy in [address] [phone] Melinda Isaac APRN, C.N.P. [address] [place] [phone] 08/02/2024 9:00 AM WELL CONTROL INSTRUCTOR Infusion Department of Infusion Therapy in [address] [phone] Melinda Isaac APRN, C.N.P. [address] [place] [phone] 08/02/2024 12:30 PM WELL CONTROL INSTRUCTOR Clinical Communication Virtual Review in [place], [place] [address] [place] [phone] 08/03/2024 9:00 AM WELL CONTROL INSTRUCTOR Infusion Department of Infusion Therapy in [address] [phone] Melinda Isaac APRN, C.N.P. [address] [place] [phone] 08/04/2024 9:00 AM WELL CONTROL INSTRUCTOR Infusion Department of Infusion Therapy in [address] [phone] Melinda Isaac APRN, C.N.P. [address] [place] [phone] 08/05/2024 8:45 AM WELL CONTROL INSTRUCTOR Appointment Department of Radiology, [facility], in [place], [place] [address] [place] [phone] Kayleigh Small M.D. [address] [place] [phone] 08/05/2024 9:00 AM WELL CONTROL INSTRUCTOR Infusion Department of Infusion Therapy in [address] [phone] Melinda Isaac APRN, C.N.P. [address] [place] [phone] 08/05/2024 11:00 AM WELL CONTROL INSTRUCTOR Office Visit Section of Infectious Diseases in [place], [place] [address] [place] [phone] Kayleigh Small M.D. [address] [place] [phone] 08/06/2024 9:00 AM WELL CONTROL INSTRUCTOR Infusion Department of Infusion Therapy in [address] [phone] Melinda Isaac APRN, C.N.P. [address] [place] [phone] 08/07/2024 9:00 AM WELL CONTROL INSTRUCTOR Infusion Department of Infusion Therapy in [address] [phone] Melinda Isaac APRN, C.N.P. [address] [place] [phone] 08/08/2024 9:00 AM WELL CONTROL INSTRUCTOR Infusion Department of Infusion Therapy in [address] [phone] Melinda Isaac APRN, C.N.P. [address] [place] [phone] 08/09/2024 9:00 AM WELL CONTROL INSTRUCTOR Infusion Department of Infusion Therapy in [address] [phone] Melinda Isaac APRN, C.N.P. [address] [place] [phone] 08/10/2024 9:00 AM WELL CONTROL INSTRUCTOR Infusion Department of Infusion Therapy in [address] [phone] Melinda Isaac APRN, C.N.P. [address] [place] [phone] 08/11/2024 9:00 AM WELL CONTROL INSTRUCTOR Infusion Department of Infusion Therapy in [address] [phone] Melinda Isaac APRN, C.N.P. [address] [place] [phone] 08/12/2024 9:00 AM WELL CONTROL INSTRUCTOR Infusion Department of Infusion Therapy in [address] [phone] Melinda Isaac APRN, C.N.P. [address] [place] [phone] 08/13/2024 8:30 AM WELL CONTROL INSTRUCTOR Infusion Department of Infusion Therapy in [address] [phone] Melinda Isaac APRN, C.N.P. [address] [place] [phone] 08/14/2024 9:00 AM WELL CONTROL INSTRUCTOR Infusion Department of Infusion Therapy in [address] [phone] Melinda Isaac APRN, C.N.P. [address] [place] [phone] 08/15/2024 9:00 AM WELL CONTROL INSTRUCTOR Infusion Department of Infusion Therapy in [address] [phone] Melinda Isaac APRN, C.N.P. [address] [place] [phone] 08/16/2024 9:00 AM WELL CONTROL INSTRUCTOR Infusion Department of Infusion Therapy in [address] [phone] Melinda Isaac APRN, C.N.P. [address] [place] [phone] 08/17/2024 9:00 AM WELL CONTROL INSTRUCTOR Infusion Department of Infusion Therapy in [address] [phone] Melinda Isaac APRN, C.N.P. [address] [place] [phone] 08/18/2024 9:00 AM WELL CONTROL INSTRUCTOR Infusion Department of Infusion Therapy in [address] [phone] Melinda Isaac APRN, C.N.P. [address] [place] [phone] Pending Results Name Type Priority Associated Diagnoses Date /Time Fungal Culture, Routine Microbiology Routine Empyema Pleural ([facility]) 07/15/2024 2:24 PM WELL CONTROL INSTRUCTOR Mycobacterial Culture Microbiology Routine Empyema Pleural ([facility]) 07/15/2024 2:24 PM WELL CONTROL INSTRUCTOR Bacterial Culture, Anaerobic + Susceptibility Microbiology Routine Empyema Pleural ([facility]) 07/15/2024 4:00 PM WELL CONTROL INSTRUCTOR Fungal Culture, Routine Microbiology Routine Empyema Pleural ([facility]) 07/15/2024 4:00 PM WELL CONTROL INSTRUCTOR Mycobacterial Culture Microbiology Routine Empyema Pleural ([facility]) 07/15/2024 4:00 PM WELL CONTROL INSTRUCTOR Actinomyces Culture Microbiology Routine Empyema Pleural ([facility]) 07/15/2024 4:00 PM WELL CONTROL INSTRUCTOR Scheduled Orders Name Type Priority Associated Diagnoses Order Schedule DX Chest AP or PA and Lateral 2 Views Imaging RAD - Routine (most inpatients and all outpatients) Empyema Pleural (HCC) Expected: 08/30/2024 (Approximate), Expires: 07/19/2027 Perform central line up machine operator: Site care, Flush port(s) Procedures Routine Empyema Pleural (HCC) Expected: 07/22/2024, Expires: 10/17/2025 Perform central line up machine operator: Flush port(s), Site care Procedures Routine Empyema [...] inpatients and all outpatients) 07/19/2024 1:04 PM WELL CONTROL INSTRUCTOR NOCTURNAL OXYGEN STUDY - RT Routine 07/19/2024 12:24 PM WELL CONTROL INSTRUCTOR DX CHEST AP OR PA AND LATERAL 2 VIEWS RAD - Routine (most inpatients and all outpatients) 07/19/2024 9:10 AM WELL CONTROL INSTRUCTOR ADULT OXYGEN THERAPY Routine 07/19/2024 8:01 AM WELL CONTROL INSTRUCTOR CBC WITHOUT DIFFERENTIAL, B Routine 07/19/2024 6:02 AM WELL CONTROL INSTRUCTOR BASIC METABOLIC PANEL, S/P Routine 07/19/2024 6:[address] PERIPHERALLY INSERTED CENTRAL CATHETER (PICC) Routine 07/18/2024 8:43 PM WELL CONTROL INSTRUCTOR ADULT OXYGEN THERAPY Routine 07/18/2024 8:01 PM WELL CONTROL INSTRUCTOR DX CHEST AP OR PA AND LATERAL 2 VIEWS RAD - Routine (most inpatients and all outpatients) 07/18/2024 10:15 AM WELL CONTROL INSTRUCTOR ADULT OXYGEN THERAPY Routine 07/18/2024 8:00 AM WELL CONTROL INSTRUCTOR ADULT OXYGEN THERAPY Routine 07/17/2024 8:01 PM WELL CONTROL INSTRUCTOR HIV-1/-2 AG AND AB SCREEN, PLASMA Routine 07/17/2024 5:05 PM WELL CONTROL INSTRUCTOR ADULT OXYGEN THERAPY Routine 07/17/2024 8:01 AM WELL CONTROL INSTRUCTOR ADULT OXYGEN THERAPY Routine 07/16/2024 8:01 PM WELL CONTROL INSTRUCTOR RESPIRATORY ASSESS AND TREAT Routine 07/16/2024 2:00 PM WELL CONTROL INSTRUCTOR VANCOMYCIN, TROUGH, S Timed 07/16/2024 10:31 AM WELL CONTROL INSTRUCTOR ADULT OXYGEN THERAPY Routine 07/16/2024 8:01 AM WELL CONTROL INSTRUCTOR ADULT OXYGEN THERAPY Routine 07/15/2024 8:01 PM WELL CONTROL INSTRUCTOR ADULT OXYGEN THERAPY Routine 07/15/2024 6:49 PM WELL CONTROL INSTRUCTOR ADULT OXYGEN THERAPY Routine 07/15/2024 6:49 PM WELL CONTROL INSTRUCTOR ADULT OXYGEN THERAPY Routine 07/15/2024 6:49 PM WELL CONTROL INSTRUCTOR DX CHEST 1 VIEW RAD - Routine (most inpatients and all outpatients) 07/15/2024 4:51 PM WELL CONTROL INSTRUCTOR BACTERIAL CULTURE, AEROBIC + SUSC Routine 07/15/2024 4:00 PM WELL CONTROL INSTRUCTOR Empyema Pleural (HCC) ACTINOMYCES CULTURE Routine 07/15/2024 4 :00 PM WELL CONTROL INSTRUCTOR Empyema Pleural (HCC) MYCOBACTERIAL CULTURE, V Routine 07/15/2024 4:00 PM WELL CONTROL INSTRUCTOR Empyema Pleural (HCC) FUNGAL SMEAR Routine 07/15/2024 4:00 PM WELL CONTROL INSTRUCTOR Empyema Pleural (HCC) LEGIONELLA CULTURE Routine 07/15/2024 4: 00 PM WELL CONTROL INSTRUCTOR Empyema Pleural (HCC) ACID FAST SMEAR FOR MYCOBACTERIUM Routine 07/15/2024 4:00 PM WELL CONTROL INSTRUCTOR Empyema Pleural (HCC) GRAM STAIN Routine 07/15/2024 4:00 PM WELL CONTROL INSTRUCTOR Empyema Pleural (HCC) FUNGAL CULTURE, ROUTINE Routine 07/15/2024 4:00 PM WELL CONTROL INSTRUCTOR Empyema Pleural (HCC) BACTERIAL CULTURE, ANAEROBIC + SUSC Routine 07/15/2024 4:00 PM WELL CONTROL INSTRUCTOR Empyema Pleural (HCC) BACTERIAL CULTURE, AEROBIC + SUSC Routine 07/15/2024 2:24 PM WELL CONTROL INSTRUCTOR Empyema Pleural (HCC) MYCOBACTERIAL CULTURE, V Routine 07/15/2024 2:24 PM WELL CONTROL INSTRUCTOR Empyema Pleural (HCC) FUNGAL SMEAR Routine 07/15/2024 2:24 PM WELL CONTROL INSTRUCTOR Empyema Pleural (HCC) ACID FAST SMEAR FOR MYCOBACTERIUM Routine 07/15/2024 2:24 PM WELL CONTROL INSTRUCTOR Empyema Pleural (HCC) GRAM STAIN Routine 07/15/2024 2:24 PM WELL CONTROL INSTRUCTOR Empyema Pleural (HCC) FUNGAL CULTURE, ROUTINE Routine 07/15/2024 2:24 PM WELL CONTROL INSTRUCTOR Empyema Pleural (HCC) THORACOSCOPY - DECORTICATION 07/15/2024 12:32 PM WELL CONTROL INSTRUCTOR Empyema Pleural (HCC) TYPE AND SCREEN STAT 07/15/2024 7:50 AM WELL CONTROL INSTRUCTOR MRSA/STAPHYLOCOCCUS AUREUS, NASAL, BY PCR Routine 07/14/2024 10:39 AM WELL CONTROL INSTRUCTOR BASIC METABOLIC PANEL, S/P Routine 07/14/2024 4:09 AM WELL CONTROL INSTRUCTOR DX CHEST PORTABLE 1 VIEW RAD - Routine (most inpatients and all outpatients) 07/13/2024 9:07 PM WELL CONTROL INSTRUCTOR CBC WITHOUT DIFFERENTIAL, B Routine 07/13/2024 8:14 PM WELL CONTROL INSTRUCTOR documented in this encounter Results * DX Chest AP or PA and Lateral 2 Views (07/19/2024 1:04 PM WELL CONTROL INSTRUCTOR) Anatomical Region Laterality Modality Chest, Thoracic RST LOS, Tho racic ARZ LOS, Thoracic FLA LOS N/A Digital Radiography Impressions 07/19/2024 1:55 PM WELL CONTROL INSTRUCTOR Since earlier today, removal of the left chest tube. Remainder not significantly changed. Trace left apical pneumothorax. Right PICC tip at the SVC/RA junction. No pleural effusions. Enlarged cardiac silhouette. Scattered subsegmental atelectasis. Narrative 07/19/2024 1:55 PM WELL CONTROL INSTRUCTOR EXAM: DX CHEST AP OR PA AND [...] atelectasis. Eveline Mariscal P.A.-C. IMG DIAGNOSTIC IMAGING [place] OCEDURES Final Result * DX Chest AP or PA and Lateral 2 Views (07/19/2024 9:10 AM WELL CONTROL INSTRUCTOR) Anatomical Region Laterality Modality Chest, Thoracic RST LOS, Tho [facility] LOS, Thoracic FLA LOS N/A Digital Radiography Impressions 07/19/2024 10:12 AM WELL CONTROL INSTRUCTOR Since 07/18/2024, right arm PICC has been inserted with tip at the SVC RA junction. One of the left chest tubes has been removed. Remainder unchanged. Trace left apical pneumothorax. No pleural effusions. Enlarged cardiac silhouette. Scattered subsegmental atelectasis. Left chest tube. Narrative 07/19/2024 10:12 AM WELL CONTROL INSTRUCTOR EXAM: DX CHEST AP OR PA AND [...] tube. Eveline Mariscal P.A.-C. IMG DIAGNOSTIC IMAGING [place] OCEDURES Final Result * Basic Metabolic Panel (07/19/2024 6:02 AM WELL CONTROL INSTRUCTOR) Pathologist [facility] Potassium, S 3.6 3.6 - 5.2 mmol/L 07/19/2024 6:59 AM WELL CONTROL INSTRUCTOR DTL Sodium, S 140 135 - 145 mmol/L 07/19/2024 6:59 AM WELL CONTROL INSTRUCTOR DTL Chloride, S 103 98 - 107 mmol/L 07/19/2024 6:59 AM WELL CONTROL INSTRUCTOR DTL Bicarbonate, S 28 22 - 29 mmol/L 07/19/2024 6:59 AM WELL CONTROL INSTRUCTOR DTL Anion Gap 9 7 - 15 07/19/2024 6:59 AM WELL CONTROL INSTRUCTOR DTL BUN (Blood Urea Nitrogen), S 11 6 - 21 mg/dL 07/19/2024 6:59 AM WELL CONTROL INSTRUCTOR DTL Creatinine 0.82 0.59 - 1.04 mg/dL 07/19/2024 6:59 AM WELL CONTROL INSTRUCTOR DTL Estimated GFR (eGFR) >90 >=60 mL/min/BSA 07/19/2024 6:59 AM WELL CONTROL INSTRUCTOR DTL Comment: Estimated GFR calculated using the 2020 CKD_EPI creatinine equation. Calcium, Total, S 8.6 8.6 - 10.0 mg/dL 07/19/2024 6:59 AM WELL CONTROL INSTRUCTOR DTL Glucose, S 90 70 - 140 mg/dL 07/19/2024 6:59 AM WELL CONTROL INSTRUCTOR DTL Blood (Blood, Venous) 07/19/2024 6:02 AM WELL CONTROL INSTRUCTOR 07/19/2024 6:42 AM WELL CONTROL INSTRUCTOR Lopez Garvey M.D. LAB BLOOD ADD-ON Final Resul t [facility] [address] [place] [address], [place] DTL [facility] [address] [place] [address] * (ABNORMAL) CBC without Differential (07/19/2024 6:02 AM WELL CONTROL INSTRUCTOR) Hemoglobin 7.6(L) 11.6 - 15.0 g/dL 07/19/2024 6:38 AM WELL CONTROL INSTRUCTOR DTL Hematocrit 24.1(L) 35.5 - 44.9 % 07/19/2024 6:38 AM WELL CONTROL INSTRUCTOR DTL Erythrocytes 2.67(L) 3.92 - 5.13 x10(12)/L 07/19/2024 6:38 AM WELL CONTROL INSTRUCTOR DTL MCV 90.3 78.2 - 97.9 fL 07/19/2024 6:38 AM WELL CONTROL INSTRUCTOR DTL RBC Distrib Width 15.6 12.2 - 16.1 % 07/19/2024 6:38 AM WELL CONTROL INSTRUCTOR DTL Platelet Count 478(H) 157 - 371 x10(9)/L 07/19/2024 6:38 AM WELL CONTROL INSTRUCTOR DTL Leukocytes 9.8(H) 3.4 - 9.6 x10(9)/L 07/19/2024 6:38 AM WELL CONTROL INSTRUCTOR DTL Blood (Blood, Venous) 07/19/2024 6:02 AM WELL CONTROL INSTRUCTOR 07/19/2024 6:26 AM WELL CONTROL INSTRUCTOR Lopez Garvey M.D. LAB BLOOD ADD-ON Final Resul t [facility] [address] [place] [address], [facility] [address] [place] [address] * Place peripherally inserted central catheter (PICC) (07/18/2024 8:43 PM WELL CONTROL INSTRUCTOR) Narrative [facility]ODAL - 07/18/2024 8:43 PM WELL CONTROL INSTRUCTOR Rayo Finch R.N. 07/18/2024 9:[address] peripherally inserted central catheter (PICC) Performed by: Rayo Finch R.N. Authorized by: Eveline Mariscal PDmitryAOnur Care team members present 1. Rayo Finch R.N. 2. Chas Torrez VA-BC, R.NDmitry, MARLINE PROCEDURE DETAILS Select line: PICC Line [...] with ultrasound and measured to ensure appropriate ipndtrcr-au-tzba ratio of 45% or less: Right Basilic [...] to release the adhesive from the skin. [email or web address]/products/[email or web address] Eveline Mariscal P.A.-C. PROCEDURE/MINOR SURGICAL ORDERABLES Final Result MMODAL NA * DX Chest AP or PA and Lateral 2 Views (07/18/2024 10:15 AM WELL CONTROL INSTRUCTOR) Anatomical Region Laterality Modality Chest, Thoracic RST LOS, Tho racic ARZ LOS, Thoracic FLA LOS N/A Digital Radiography Impressions 07/18/2024 10:22 AM WELL CONTROL INSTRUCTOR Compared with the 07/15/2024 chest radiograph. Decreased tiny left pneumothorax. Slightly improved aeration with decreased lower lung predominant presumably atelectases. Shallow inspiration with accentuation of the cardiovascular structures. Narrative 07/18/2024 10:22 AM WELL CONTROL INSTRUCTOR EXAM: DX CHEST AP OR PA AND LATERAL 2 VIEWS Procedure Note Polo Toussaint M.D. - 07/18/2024 EXAM: DX CHEST AP OR PA AND LATERAL 2 VIEWS IMPRESSION: Compared with the 07/15/2024 chest radiograph. Decreased tiny leftpneumothorax. Slightly improved aeration with decreased lower lungpredominant presumably atelectases. Shallow inspiration with accentuationof the cardiovascular structures. Eveline Mariscal P.A.-C. IMG DIAGNOSTIC IMAGING [place] OCEDURES Final Result * HIV-1/-2 Ag and Ab Screen, Plasma (07/17/2024 5:05 PM WELL CONTROL INSTRUCTOR) Pathologist [facility] HIV-1/-2 Ag and Ab Screen, P Negative Negative 07/17/2024 8:57 PM WELL CONTROL INSTRUCTOR [facility] Comment: Negative result does not rule out HIV infection. If exposure to HIV infection occurred <14 days ago, contact the laboratory to request addition of HIV-1/HIV-2 RNA detection, Plasma (HIP12). Blood (Blood, Venous) 07/17/2024 5:05 PM WELL CONTROL INSTRUCTOR 07/17/2024 7:55 PM WELL CONTROL INSTRUCTOR us Arslan Pennington APRN., M.S. LAB MICROBIOLOGY - BLOOD ORDERABLES Final Result Performing Organization Address [facility] Co de Phone Number [facility] [address] [place] [address] [facility] [address] [place] [address] * (ABNORMAL) Vancomycin, Trough (07/16/2024 10:31 AM WELL CONTROL INSTRUCTOR) [facility] Vancomycin, Trough, S 8.9(L) 10.0 - 20.0 mcg/mL 07/16/2024 12:10 PM WELL CONTROL INSTRUCTOR DTL Blood (Blood, Venous) 07/16/2024 10:31 AM WELL CONTROL INSTRUCTOR 07/16/2024 10:52 AM WELL CONTROL INSTRUCTOR us Patrick Mtz M.D., Ph.D. LAB BLOOD NON ADD-ON Fi nal Result Performing Organization Address [facility] Co de Phone Number [facility] [address] [place] [address], [facility] [address] [place] [address] * DX Chest 1 View (07/15/2024 4:51 PM WELL CONTROL INSTRUCTOR) Anatomical Region Laterality Modality Chest, Thoracic RST LOS, Tho racic ARZ LOS, Thoracic FLA LOS N/A Digital Radiography Impressions 07/15/2024 4:59 PM WELL CONTROL INSTRUCTOR Negative for postoperative purposes. Left thoracotomy with 2 left chest tubes. Small left-sided pneumothorax. New left perihilar consolidation/atelectasis since 07/13/2024. Increased bibasilar consolidation/atelectasis. Very low lung volumes accentuate heart size and bronchovascular markings. Narrative 07/15/2024 4:59 PM WELL CONTROL INSTRUCTOR EXAM: DX CHEST 1 VIEW Procedure Note Jah Elam M.D. - 07/15/2024 EXAM: DX CHEST 1 VIEW IMPRESSION: Negative for postoperative purposes. Left thoracotomy with 2 left chesttubes. Small left-sided pneumothorax. New left perihilarconsolidation/atelectasis since 07/13/2024. Increased bibasilarconsolidation/atelectasis. Very low lung volumes accentuate heart size and bronchovascular markings. us Patrick Mtz M.D., Ph.D. [facility] PROCED[facility] Final Result * Bacterial Culture, Aerobic + Susceptibility (07/15/2024 4:00 PM WELL CONTROL INSTRUCTOR) Bacterial Culture, Aerobic + Susc No growth after 5 days of incubation. 07/20/2024 7:42 AM WELL CONTROL INSTRUCTOR DTL Tissue (Pleura, Left) 07/15/2024 4:00 PM WELL CONTROL INSTRUCTOR us Patrick Mtz M.D., Ph.D. LAB MICROBIOLOGY - GENE RAL ORDERABLES Final Result [facility] [address] [place] [address], [facility] [address] [place] [address] * Fungal Smear (07/15/2024 4:00 PM WELL CONTROL INSTRUCTOR) Fungal Smear Negative. 07/16/2024 8:52 AM WELL CONTROL INSTRUCTOR DTL Tissue (Pleura, Left) 07/15/2024 4:00 PM WELL CONTROL INSTRUCTOR us Patrick Mtz M.D., Ph.D. LAB MICROBIOLOGY - GENE RAL ORDERABLES Final Result [facility] [address] [place] [address], [facility] [address] [place] [address] * Legionella Culture (07/15/2024 4:00 PM WELL CONTROL INSTRUCTOR) Legionella Culture No growth of Legionella species after 7 days of incubation 07/22/2024 8:16 AM WELL CONTROL INSTRUCTOR DTL Tissue (Pleura, Left) 07/15/2024 4:00 PM WELL CONTROL INSTRUCTOR us Patrick Mtz M.D., Ph.D. LAB MICROBIOLOGY - GENE RAL ORDERABLES Final Result [facility] [address] [place] [address], [facility] [address] [place] [address] * Acid Fast Smear for Mycobacterium (07/15/2024 4:00 PM WELL CONTROL INSTRUCTOR) Acid Fast Smear For Mycobacterium Negative. 07/15/2024 10:18 PM WELL CONTROL INSTRUCTOR DTL Tissue (Pleura, Left) 07/15/2024 4:00 PM WELL CONTROL INSTRUCTOR us Patrick Mtz M.D., Ph.D. LAB MICROBIOLOGY - GENE RAL ORDERABLES Final Result Performing Organization Address City/[facility]/ZIP Co de Phone Number [facility] [address] [place] [address], [facility] [address] [place] [address] * Gram Stain (07/15/2024 4:00 PM WELL CONTROL INSTRUCTOR) Gram Stain No organisms seen. White blood cells, Many 07/15/2024 10:18 PM WELL CONTROL INSTRUCTOR DTL Tissue (Pleura, Left) 07/15/2024 4:00 PM WELL CONTROL INSTRUCTOR us Patrick Mtz M.D., Ph.D. LAB MICROBIOLOGY - GENE RAL ORDERABLES Final Result Performing Organization Address City/[facility]/ZIP Co de Phone Number [facility] [address] [place] [address], [facility] [address] [place] [address] * Bacterial Culture, Aerobic + Susceptibility (07/15/2024 2:24 PM WELL CONTROL INSTRUCTOR) Bacterial Culture, Aerobic + Susc No growth after 5 days of incubation. 07/20/2024 7:42 AM WELL CONTROL INSTRUCTOR DTL Fluid (Pleural Fluid, Left) 07/15/2024 2:24 PM WELL CONTROL INSTRUCTOR Narrative [facility] - 07/20/2024 7:42 AM WELL CONTROL INSTRUCTOR Bacterial Culture: Placed in Bactec aerobic and Bactec anaerobic bottles us Patrick Mtz M.D., Ph.D. LAB MICROBIOLOGY - GENE RAL ORDERABLES Final Result [facility] [address] [place] [address], [facility] [address] [place] [address] * Fungal Smear (07/15/2024 2:24 PM WELL CONTROL INSTRUCTOR) Fungal Smear Negative. 07/15/2024 7:25 PM WELL CONTROL INSTRUCTOR DTL Fluid (Pleural Fluid, Left) 07/15/2024 2:24 PM WELL CONTROL INSTRUCTOR [facility] - 07/15/2024 7:25 PM WELL CONTROL INSTRUCTOR Bacterial Culture: Placed in Bactec aerobic and Bactec anaerobic bottles us Patrick Mtz M.D., Ph.D. LAB MICROBIOLOGY - GENE RAL ORDERABLES Final Result [facility] [address] [place] [address], [facility] [address] [place] [address] * Acid Fast Smear for Mycobacterium (07/15/2024 2:24 PM WELL CONTROL INSTRUCTOR) Acid Fast Smear For Mycobacterium Negative. 07/15/2024 9:24 PM WELL CONTROL INSTRUCTOR DTL Fluid (Pleural Fluid, Left) 07/15/2024 2:24 PM WELL CONTROL INSTRUCTOR Narrative [facility] - 07/15/2024 9:24 PM WELL CONTROL INSTRUCTOR Bacterial Culture: Placed in Bactec aerobic and Bactec anaerobic bottles us Patrick Mtz M.D., Ph.D. LAB MICROBIOLOGY - GENE RAL ORDERABLES Final Result Performing Organization Address [facility]/ZIP Co de Phone Number [facility] [address] [facility] [address] [place] [address] * Gram Stain (07/15/2024 2:24 PM WELL CONTROL INSTRUCTOR) Pathologist [facility] Gram Stain No organisms seen. White blood cells, Moderate 07/15/2024 8:02 PM WELL CONTROL INSTRUCTOR DTL Fluid (Pleural Fluid, Left) 07/15/2024 2:24 PM WELL CONTROL INSTRUCTOR Narrative [facility] - 07/15/2024 8:02 PM WELL CONTROL INSTRUCTOR Bacterial Culture: Placed in Bactec aerobic and Bactec anaerobic bottles us Patrick Mtz M.D., Ph.D. LAB MICROBIOLOGY - GENE RAL ORDERABLES Final Result Performing Organization Address [facility] Co de Phone Number [facility] [address] [place] [address] * Type and Screen (with Reflex Antibody ID) (07/15/2024 7:50 AM WELL CONTROL INSTRUCTOR) Pathologist [facility] ABORh AB Pos Not applicable 07/15/2024 8:36 AM WELL CONTROL INSTRUCTOR STRM Antibody Screen Negative Negative 07/15/2024 8:51 AM WELL CONTROL INSTRUCTOR STRM Type & Screen Expiration 07/18/2024 23:59 07/15/2024 8:36 AM WELL CONTROL INSTRUCTOR STRM Testing Location [place] DEFAULT 07/15/2024 8:10 AM WELL CONTROL INSTRUCTOR STRM Blood (Blood, Venous) 07/15/2024 7:50 AM WELL CONTROL INSTRUCTOR 07/15/2024 8:10 AM WELL CONTROL INSTRUCTOR us Jamie Kumar M.D. LAB BLOOD BANK TEST ORDERABLES F inal Result [facility] [address] [place] [address], [facility] STRM [facility] [address] [place] [address] * Staph aureus / MRSA, Nasal, PCR (07/14/2024 10:39 AM WELL CONTROL INSTRUCTOR) Staphylococcus aureus, PCR Negative Negative 07/14/2024 12:55 PM WELL CONTROL INSTRUCTOR DTL MRSA, PCR Negative Negative 07/14/2024 12:55 PM WELL CONTROL INSTRUCTOR DTL Swab (Nares) 07/14/2024 10:3 9 AM WELL CONTROL INSTRUCTOR 07/14/2024 11:06 AM WELL CONTROL INSTRUCTOR us Patrick Mtz M.D., Ph.D. LAB MICROBIOLOGY - GENE RAL ORDERABLES Final Result Performing Organization Address [facility] Co de Phone Number [facility] [address] [place] [address], [facility] DTL [facility] [address] [place] [address] * (ABNORMAL) Basic Metabolic Panel (07/14/2024 4:09 AM WELL CONTROL INSTRUCTOR) Potassium, S 3.9 3.6 - 5.2 mmol/L 07/14/2024 5:53 AM WELL CONTROL INSTRUCTOR DTL Sodium, S 139 135 - 145 mmol/L 07/14/2024 5:53 AM WELL CONTROL INSTRUCTOR DTL Chloride, S 103 98 - 107 mmol/L 07/14/2024 5:53 AM WELL CONTROL INSTRUCTOR DTL Bicarbonate, S 22 22 - 29 mmol/L 07/14/2024 5:53 AM WELL CONTROL INSTRUCTOR DTL Anion Gap 14 7 - 15 07/14/2024 5:53 AM WELL CONTROL INSTRUCTOR DTL BUN (Blood Urea Nitrogen), S 10 6 - 21 mg/dL 07/14/2024 5:53 AM WELL CONTROL INSTRUCTOR DTL Creatinine 0.57(L) 0.59 - 1.04 mg/dL 07/14/2024 5:53 AM WELL CONTROL INSTRUCTOR DTL Estimated GFR (eGFR) >90 >=60 mL/min/BSA 07/14/2024 5:53 AM WELL CONTROL INSTRUCTOR DTL Comment: Estimated GFR calculated using the 2020 CKD_EPI creatinine equation. Calcium, Total, S 9.1 8.6 - 10.0 mg/dL 07/14/2024 5:53 AM WELL CONTROL INSTRUCTOR DTL Glucose, S 91 70 - 140 mg/dL 07/14/2024 5:53 AM WELL CONTROL INSTRUCTOR DTL Blood (Blood, Venous) 07/14/2024 4:09 AM WELL CONTROL INSTRUCTOR 07/14/2024 5:23 AM WELL CONTROL INSTRUCTOR us Lopez Garvey M.D. LAB BLOOD ADD-ON Final Resul t [facility] [address] [place] [address], [place] [facility] [address] [place] [address] * DX Chest Portable 1 View (07/13/2024 9:07 PM WELL CONTROL INSTRUCTOR) Anatomical Region Laterality Modality Chest, Thoracic RST LOS, Tho racic ARZ LOS, Thoracic FLA LOS N/A Digital Radiography Impressions 07/14/2024 7:27 AM WELL CONTROL INSTRUCTOR No significant change since earlier today. Bibasilar atelectasis. Small left loculated pleural effusion. Hazy opacification in the bilateral lungs, left greater than right. No discernible pneumothorax. Mildly enlarged cardiomediastinal silhouette. Narrative 07/14/2024 7:27 AM WELL CONTROL INSTRUCTOR EXAM: DX CHEST PORTABLE 1 VIEW Procedure Note Chaz Montelongo M.D. - 07/14/2024 EXAM: DX CHEST PORTABLE 1 VIEW IMPRESSION: No significant change since earlier today. Bibasilar atelectasis. Smallleft loculated pleural effusion. Hazy opacification in the bilaterallungs, left greater than right. No discernible pneumothorax. Mildlyenlarged cardiomediastinal silhouette. us Lopez Garvey M.D. IMG DIAGNOSTIC IMAGING [facility] Final Result * (ABNORMAL) CBC without Differential (07/13/2024 8:14 PM WELL CONTROL INSTRUCTOR) Hemoglobin 9.7(L) 11.6 - 15.0 g/dL 07/13/2024 9:24 PM WELL CONTROL INSTRUCTOR DTL Hematocrit 30.1(L) 35.5 - 44.9 % 07/13/2024 9:24 PM WELL CONTROL INSTRUCTOR DTL Erythrocytes 3.32(L) 3.92 - 5.13 x10(12)/L 07/13/2024 9:24 PM WELL CONTROL INSTRUCTOR DTL MCV 90.7 78.2 - 97.9 fL 07/13/2024 9:24 PM WELL CONTROL INSTRUCTOR DTL RBC Distrib Width 15.3 12.2 - 16.1 % 07/13/2024 9:24 PM WELL CONTROL INSTRUCTOR DTL Platelet Count 788(H) 157 - 371 x10(9)/L 07/13/2024 9:24 PM WELL CONTROL INSTRUCTOR DTL Leukocytes 17.4(H) 3.4 - 9.6 x10(9)/L 07/13/2024 9:24 PM WELL CONTROL INSTRUCTOR DTL Blood (Blood, Venous) 07/13/2024 8:14 PM WELL CONTROL INSTRUCTOR 07/13/2024 9:16 PM WELL CONTROL INSTRUCTOR Lopez Garvey M.D. LAB BLOOD ADD-ON Final Resul t [address] [address], [facility] [address] [place] [address] documented in this encounter Visit Diagnoses Diagnosis Empyema Pleural (HCC)- Primary documented in this encounter Admitting Diagnoses Diagnosis Empyema Pleural (HCC) documented in this encounter Administered Medications Inactive Administered Medications - up to 3 most recent administrations Medication Order MAR Action Action Date Dose Rate Site acetaminophen injection 1,000 mg 1,000 mg, intravenous, at 400 mL/hr, Administer over 15 Minutes, Once, On 07/15/24 at 1730, For 1 dose, PACU (only), Restriction Criteria (Pharmacy will review and approve if criteria met): After hours OR urgent first dose New Bag 07/15/2024 5:12 PM WELL CONTROL INSTRUCTOR 1,000 mg 400 mL/hr acetaminophen tablet 1,000 mg (TylenoL) 1,000 mg, oral, Every 6 hours, First dose on 07/13/24 at 2100 Given 07/20/2024 8:40 AM WELL CONTROL INSTRUCTOR 1,000 mg Given 07/20/2024 2:56 AM WELL CONTROL INSTRUCTOR 1,000 mg Given 07/19/2024 8:36 PM WELL CONTROL INSTRUCTOR 1,000 mg bisacodyL suppository 10 mg (Dulcolax) 10 mg, rectal, Every 12 hours PRN, constipation, Starting on 07/15/24 at 1849, If no bowel movement within 2 hours following magnesium hydroxide, do not give if patient has diarrhea. buPROPion XL 24 hr tablet 150 mg (Wellbutrin XL) 150 mg, oral, Daily, First dose on 07/14/24 at 0900, Swallow whole. Do NOT crush, chew, or split tablet. Given 07/20/2024 8:42 AM WELL CONTROL INSTRUCTOR 150 mg Given 07/19/2024 8:39 AM WELL CONTROL INSTRUCTOR 150 mg Given 07/18/2024 7:34 AM WELL CONTROL INSTRUCTOR 150 mg buPROPion XL 24 hr tablet 300 mg (Wellbutrin XL) 300 mg, oral, Daily, First dose on Mon07/14/24 at 0900, Swallow whole. Do NOT crush, chew, or split tablet. Given 07/20/2024 8:41 AM WELL CONTROL INSTRUCTOR 300 mg Given 07/19/2024 8:41 AM WELL CONTROL INSTRUCTOR 300 mg Given 07/18/2024 7:36 AM WELL CONTROL INSTRUCTOR 300 mg calcium carbonate chewable tablet 400 [...] 07/14/24 at 2100 Given 07/19/2024 8:37 PM WELL CONTROL INSTRUCTOR 4.5 mg Given 07/18/2024 9:23 PM WELL CONTROL INSTRUCTOR 4.5 mg Given 07/17/2024 8:24 PM WELL CONTROL INSTRUCTOR 4.5 mg cefTRIAXone in dextrose (iso osm) IVPB 2 g (Rocephin) 2 g, intravenous, at 200 mL/hr, Administer over 15 Minutes, Every 24 hours, First dose on Mon07/17/24 at 1600, Drug Monitoring Program: Pharmacist to adjust medication dosing based on indication and drug clearance factors., Indications: empyemaIndications:empyema New Bag 07/20/2024 8:43 AM WELL CONTROL INSTRUCTOR 2 g 200 mL/hr New Bag 07/19/2024 11:52 AM WELL CONTROL INSTRUCTOR 2 g 200 mL/hr New Bag 07/18/2024 4:31 PM WELL CONTROL INSTRUCTOR 2 g 200 mL/hr D5W infusion 1-999 [...] feeding administration instructions. Given 07/20/2024 8:40 AM WELL CONTROL INSTRUCTOR 60 mg Given 07/19/2024 8:40 AM WELL CONTROL INSTRUCTOR 60 mg Given 07/18/2024 7:35 AM WELL CONTROL INSTRUCTOR 60 mg fentaNYL injection 25 mcg (Sublimaze) 25 mcg, intravenous, Every 2 min PRN, For pain 4 or greater (maximum 100 mcg). If max dose of Fentanyl is reached and if pain is greater than 4, discontinue Fentanyl: give Hydromorphone, Starting on Mon07/15/24 at 1145, PACU (only) Given 07/15/2024 5:47 PM WELL CONTROL INSTRUCTOR 25 mcg Given 07/15/2024 5:31 PM WELL CONTROL INSTRUCTOR 25 mcg Given 07/15/2024 5:24 PM WELL CONTROL INSTRUCTOR 25 mcg heparin (porcine) injection 5,000 Units 5,000 Units, subcutaneous, Every 8 hours scheduled, First dose on Mon07/14/24 at 0400 Given 07/15/2024 9:27 PM WELL CONTROL INSTRUCTOR 5,000 Units Left Lower Abdomen Given 07/14/2024 10:20 PM WELL CONTROL INSTRUCTOR 5,000 Units Left Lower Abdomen Given 07/14/2024 2:32 PM WELL CONTROL INSTRUCTOR 5,000 Units L eft Upper Arm (Back) heparin (porcine) injection 5,000 Units 5,000 Units, subcutaneous, Every 8 hours scheduled, First dose on Mon07/16/24 at 0600 Given 07/20/2024 5:49 AM WELL CONTROL INSTRUCTOR 5,000 Units Right Upper Arm (Back) Given 07/19/2024 8:36 PM WELL CONTROL INSTRUCTOR 5,000 Units L eft Upper Arm (Back) Given 07/19/2024 1:45 PM WELL CONTROL INSTRUCTOR 5,000 Units L eft Upper Abdomen HYDROmorphone (PF) injection 0.2 mg (Dilaudid) 0.2 mg, intravenous, Every 1 hour PRN, severe pain or score 7-10 of 10, Starting on 07/13/24 at 1953 Given 07/18/2024 7:27 AM WELL CONTROL INSTRUCTOR 0.2 mg Given 07/18/2024 2:43 AM WELL CONTROL INSTRUCTOR 0.2 mg Given 07/17/2024 7:17 PM WELL CONTROL INSTRUCTOR 0.2 mg HYDROmorphone (PF) injection 0.2 mg (Dilaudid) 0.2 mg, intravenous, Every 5 min PRN, moderate pain or score 4-6 of 10, severe pain or score 7-10 of 10, Starting on Mon07/15/24 at 1145, PACU (only), Up to maximum total dose of 2 mg Given 07/15/2024 6:18 PM WELL CONTROL INSTRUCTOR 0.2 mg Given 07/15/2024 6:04 PM WELL CONTROL INSTRUCTOR 0.2 mg HYDROmorphone-0.9 % NaCl 1 mg/mL [address] bag (Dilaudid) [address] Dose: 0.1 mg, [address] Lockout: 10 Minutes, Continuous Rate: 0 mg/hr, Four Hour Limit: 2 mg, intravenous, Continuous, Starting on Mon07/15/24 at 2245, Prescriber to manage. Administer with a compatible IV carrier fluid. Rate/Dose Verify 07/17/2024 3:41 AM WELL CONTROL INSTRUCTOR Rate/Dose Verify 07/17/2024 12:00 AM WELL CONTROL INSTRUCTOR Rate/Dose Verify 07/16/2024 8:18 PM WELL CONTROL INSTRUCTOR ibuprofen tablet 400 mg 400 mg, oral, Every 6 hours PRN, moderate pain or score 4-6 of 10, severe pain or score 7-10 of 10, Starting on Mon07/19/24 at 2135, Take with food or milk if GI disturbances occur with use. Given 07/20/2024 5:49 AM WELL CONTROL INSTRUCTOR 400 mg Given 07/19/2024 9:44 PM WELL CONTROL INSTRUCTOR 400 mg ipratropium-albuteroL 0.5-2.5 mg/3 mL nebulizer solution 3 mL (DuoNeb) 3 mL, nebulization, 4 times daily PRN, shortness of breath, Starting on Mon07/13/24 at 1953 ketorolac injection 15 mg (ToradoL) 15 mg, intravenous, Every 6 hours PRN, moderate pain or score 4-6 of 10, Starting on Mon07/16/24 at 0950, For 5 days, Adult IV push rate: Over 15 seconds. Peds IV push rate: Over 1 minute. Doses > 15 mg IV/IM are discouraged due to lack of additional analgesic benefit. Given 07/19/2024 5:46 AM WELL CONTROL INSTRUCTOR 15 mg Given 07/18/2024 11:42 PM WELL CONTROL INSTRUCTOR 15 mg Given 07/18/2024 12:28 PM WELL CONTROL INSTRUCTOR 15 mg Lactated Ringer's 20 mL/hr, intravenous, Continuous, Starting on Mon07/15/24 at 1700, PACU & Post-Op Continued from OR 07/15/2024 5:12 PM WELL CONTROL INSTRUCTOR 20 mL/hr 20 mL/hr lidocaine 5 % 1 patch (Lidoderm) 1 patch, transdermal, Administer over 12 Hours, Daily, First dose on Mon07/13/24 at 2030, Remove after 12 hours. Medication Applied 07/13/2024 8:35 PM WELL CONTROL INSTRUCTOR 1 patch Flank lidocaine 5 % 1 patch (Lidoderm) 1 patch, transdermal, Administer over 12 Hours, Daily at bedtime, First dose (after last modification) on Mon07/14/24 at 2100, Remove after 12 hours. Medication Applied 07/19/2024 8:37 PM WELL CONTROL INSTRUCTOR 1 patch Left Upper Abdomen Medication Applied 07/18/2024 9:23 PM WELL CONTROL INSTRUCTOR 1 patch Other Medication Applied 07/17/2024 8:25 PM WELL CONTROL INSTRUCTOR 1 patch Flank LORazepam tablet 0.5 mg (Ativan) 0.5 mg, oral, Daily PRN, anxiety, Starting on 07/13/24 at 2008 magnesium hydroxide suspension 30 mL (Milk of Magnesia) 30 mL, oral, Every 12 hours PRN, constipation, Starting on Mon07/15/24 at 1849, If no bowel movement within 24 hours of starting Senna and Docusate, do not give if patient has diarrhea. methocarbamoL 1,000 mg in NaCl 0.9% IVPB (Robaxin) 1,000 mg, intravenous, at 260 mL/hr, Administer over 60 Minutes, Every 8 hours PRN, muscle spasms, Starting on Mon07/15/24 at 1903, Do NOT refrigerate. New Bag 07/17/2024 5:40 AM WELL CONTROL INSTRUCTOR 1,000 mg 260 mL/hr New Bag 07/16/2024 9:50 PM WELL CONTROL INSTRUCTOR 1,000 mg 260 mL/hr New Bag 07/15/2024 8:18 PM WELL CONTROL INSTRUCTOR 1,000 mg 260 mL/hr methocarbamoL tablet 500 mg (Robaxin) 500 mg, oral, 4 times daily PRN, muscle spasms, Starting on Mon07/17/24 at 1604 Given 07/20/2024 5:49 AM WELL CONTROL INSTRUCTOR 500 mg Given 07/19/2024 6:05 PM WELL CONTROL INSTRUCTOR 500 mg Given 07/19/2024 10:43 AM WELL CONTROL INSTRUCTOR 500 mg metroNIDAZOLE tablet 500 mg (FlagyL) 500 mg, oral, 3 times daily, First dose on Mon07/17/24 at 2100, Drug Monitoring Program: Pharmacist to adjust medication dosing based on indication and drug clearance factors., Indications: empyemaIndications:empyema Given 07/20/2024 8:42 AM WELL CONTROL INSTRUCTOR 500 mg Given 07/19/2024 8:37 PM WELL CONTROL INSTRUCTOR 500 mg Given 07/19/2024 1:46 PM WELL CONTROL INSTRUCTOR 500 mg NaCl 0.45 % infusion 50 mL/hr, intravenous, Continuous, Starting on Mon07/15/24 at 1915, 50 mL/hr until post-operative day one at 0800, then 20 mL/hr until post-operative day two at 0800, then discontinue when oral intake greater than 600 mL/hr and [address] discontinued. Rate/Dose Verify 07/17/2024 12:00 AM WELL CONTROL INSTRUCTOR 20 mL/hr 20 mL/hr New Bag 07/16/2024 10:14 PM WELL CONTROL INSTRUCTOR 20 mL/hr 20 mL/hr Rate/Dose Verify 07/16/2024 8:18 PM WELL CONTROL INSTRUCTOR 20 mL/hr 20 mL/h r NaCl 0.45 % infusion 20 mL/hr, intravenous, Continuous, Starting on Mon07/17/24 at 0830, While [address] running, discontinue if [address] stopped Rate/Dose Verify 07/17/2024 12:00 PM WELL CONTROL INSTRUCTOR 20 mL/hr 20 mL/hr New Bag 07/17/2024 8:10 AM WELL CONTROL INSTRUCTOR 20 mL/hr 20 mL/hr NaCl 0.9% infusion 1-999 mL/hr, intravenous, As [...] needed, respiratory depression, Starting on 07/13/24 at 3, For RASS Score -4 or less, respiratory rate of less than 8 breaths/min. Notify provider/service and rapid response team (if available at institution). ondansetron (PF) injection 4 mg (Zofran) 4 mg, intravenous, Every 6 hours PRN, nausea, vomiting, Starting on 07/13/24 at 1953, Use ondansetron before droperidol. Given 07/14/2024 3:56 AM WELL CONTROL INSTRUCTOR 4 mg oxyCODONE IR tablet 10 mg (Roxicodone) 10 mg, oral, Every 4 hours PRN, severe pain or score 7-10 of 10, for breakthrough pain, Starting on 07/13/24 at 3, Pain unrelieved by other oral analgesics. Given 07/20/2024 2:55 AM WELL CONTROL INSTRUCTOR 10 mg Given 07/19/2024 3:03 AM WELL CONTROL INSTRUCTOR 10 mg Given 07/18/2024 9:07 PM WELL CONTROL INSTRUCTOR 10 mg oxyCODONE IR tablet 5 mg (Roxicodone) 5 mg, oral, Every 4 hours PRN, moderate pain or score 4-6 of 10, for breakthrough pain, Starting on 07/13/24 at 3, Pain unrelieved by other oral analgesics. Given 07/20/2024 8:50 AM WELL CONTROL INSTRUCTOR 5 mg Given 07/19/2024 6:05 PM WELL CONTROL INSTRUCTOR 5 mg Given 07/19/2024 12:20 PM WELL CONTROL INSTRUCTOR 5 mg piperacillin-tazobactam in dextrose (iso osm) IVPB 4.5 g (Zosyn) 4.5 g, intravenous, at 200 mL/hr, Administer over 0.5 Hours, Every 6 hours, First dose (after last modification) on [facility] 07/13/24 at 2100, Drug Monitoring Program: Pharmacist to adjust medication dosing based on indication and drug clearance factors., Indications: Respiratory tract infection, healthcare associatedIndications:Respiratory tract infection, healthcare associated New Bag 07/17/2024 2:23 PM WELL CONTROL INSTRUCTOR 4.5 g 200 mL/hr New Bag 07/17/2024 8:11 AM WELL CONTROL INSTRUCTOR 4.5 g 200 mL/hr New Bag 07/17/2024 3:41 AM WELL CONTROL INSTRUCTOR 4.5 g 200 mL/hr polyethylene glycol powder packet 1 packet (Miralax) 1 packet, oral, Daily PRN, constipation, Starting on [facility] 07/13/24 at 1953, Dissolve in 240 mLs (8 ounces) of water prior to giving. Avoid mixing with starch-based thickened liquids. pregabalin capsule 200 mg (Lyrica) 200 mg, oral, 3 times daily, First dose on [facility] 07/13/24 at 2100 Given 07/20/2024 8:42 AM WELL CONTROL INSTRUCTOR 200 mg Given 07/19/2024 8:37 PM WELL CONTROL INSTRUCTOR 200 mg Given 07/19/2024 1:45 PM WELL CONTROL INSTRUCTOR 200 mg prochlorperazine injection 5 mg (Compazine) 5 mg, intravenous, Every 6 hours PRN, nausea, vomiting, Starting on [facility] 07/13/24 at 1953 sennosides tablet 17.2 mg (Senokot) 17.2 mg, oral, Daily, First dose on Mon07/14/24 at 0900, Do not give if patient has diarrhea Given 07/19/2024 8:41 AM WELL CONTROL INSTRUCTOR 17.2 mg Given 07/18/2024 7:35 AM WELL CONTROL INSTRUCTOR 17.2 mg Given 07/17/2024 8:09 AM WELL CONTROL INSTRUCTOR 17.2 mg sodium chloride 0.9 % injection 10-30 mL 10-30 mL, intravenous, As needed, line care, Peripherally Inserted Central Catheter Non-Valved, Starting on [place] 07/18/24 at 2035, Prior to and following infusion and between multiple consecutive infusions, flush 10 mL per lumen. sodium chloride 0.9 % injection 10-30 mL 10-30 mL, intravenous, Every 12 hours scheduled, First dose on [place] 07/18/24 at 2100, Peripherally Inserted Central Catheter Non-Valved: When no infusion to maintain patency flush 10 mL per lumen. Given 07/20/2024 9:12 AM WELL CONTROL INSTRUCTOR 10 mL Given 07/19/2024 9:39 AM WELL CONTROL INSTRUCTOR 10 mL Given 07/18/2024 9:24 PM WELL CONTROL INSTRUCTOR 10 mL sodium chloride 0.9 % injection 20-60 mL 20-60 mL, intravenous, As needed, line care, Peripherally Inserted Central Catheter Non-Valved, Starting on [place] 07/18/24 at 2035, Pior to and following blood sampling and post blood transfusion, flush 20 mL per lumen. vancomycin 1,900 mg in NaCl 0.9% IVPB (Vancocin) 1,900 mg, intravenous, at 260 mL/hr, Administer over 120 Minutes, Every 12 hours, First dose (after last modification) on Mon07/16/24 at 2100, Drug Monitoring Program: Pharmacist to adjust medication dosing based on indication and drug clearance factors., Indications: Respiratory tract infection, healthcare associatedIndications:Respiratory tract infection, healthcare associated New Bag 07/17/2024 8:10 AM WELL CONTROL INSTRUCTOR 1,900 mg 260 mL/hr New Bag 07/16/2024 8:18 PM WELL CONTROL INSTRUCTOR 1,900 mg 260 mL/hr vancomycin in dextrose 5 % IVPB 1,500 mg 1,500 mg, intravenous, at 200 mL/hr, Administer over 90 Minutes, Every 12 hours, First dose (after last modification) on Mon07/14/24 at 2200, Drug Monitoring Program: Pharmacist to adjust medication dosing based on indication and drug clearance factors., Indications: Respiratory tract infection, healthcare associatedIndications:Respirator y tract infection, healthcare associated New Bag 07/16/2024 11:35 AM WELL CONTROL INSTRUCTOR 1,500 mg 200 mL/hr New Bag 07/15/2024 10:46 PM WELL CONTROL INSTRUCTOR 1,500 mg 200 mL/hr New Bag 07/15/2024 11:06 AM WELL CONTROL INSTRUCTOR 1,500 mg 200 mL/hr vancomycin in NaCl 0.9 % IVPB 1,000 mg 1,000 mg (rounded from 1,072.5 mg = 15 mg/kg 71.5 kg Adjusted weight), intravenous, at 200 mL/hr, Administer over 60 Minutes, Every 12 hours, First dose on Mon07/13/24 at 2100, Drug Monitoring Program: Pharmacist to adjust medication dosing based on indication and drug clearance factors., Indications: Respiratory tract infection, healthcare associatedIndications:Respiratory tract infection, healthcare associated New Bag 07/14/2024 9:47 AM WELL CONTROL INSTRUCTOR 1,000 mg 200 mL/hr New Bag 07/13/2024 9:22 PM WELL CONTROL INSTRUCTOR 1,000 mg 200 mL/hr documented in this encounter Active and Recently Administered Medications Times are shown in WELL CONTROL INSTRUCTOR. Scheduled Medication Order 07/18/2024 07/19/2024 07/20/2024 acetaminophen [...] Cordon R.N.)1531 (Given - Provider: Malcolm Cordon R.N.)2036 (Given - Provider: Isis Flaherty R.N.) 0256 [...] bedtime, First dose (after last modification) on Mon07/14/24 at 2100 2123 (Given - Provider: Myke Alexander R.N.) 203 (Given - Provider: Isis Flaherty R.N.) cefTRIAXone [...] Mon07/16/24 at 0600 0501 (Given - Provider: Roxanne TranNDmitry)1357 (Given - Provider: Candi Leonard R.N.)2107 (Given - Provider: Myke Alexander R.N.) 0546 (Given - Provider: Myke Alexander R.N.)1345 (Given - Provider: Malcolm Cordon R.N.)2036 (Given - Provider: Isis Flaherty R.N.) 0549 (Given - Provider: Isis M Burant, R.N.) lidocaine 10 mg/mL (1 %) injection 0-10 mL (Xylocaine) 0-10 mL, intradermal, Once, On Gloria 07/18/24 at 1545, For 1 dose, Administer intradermally [...] bedtime, First dose (after last modification) on Mon07/14/24 at 2100, Remove after 12 hours. 0754 (Medication Removed - Provider: Candi Leonard R.N.)2123 (Medication Applied - Provider: Myke Alexander R.N.) 0950 (Medication Removed - Provider: Malcolm Cordon R.N.)2037 (Medication Applied - Provider: Isis Flaherty R.N.) 0955 (Medication Removed - Provider: Malcolm Cordon R.N.) metroNIDAZOLE tablet 500 mg (FlagyL) 500 mg, oral, 3 times daily, First dose on Mon07/17/24 at 2100, Drug Monitoring Program: Pharmacist to adjust medication dosing based on indication and drug clearance factors., Indications: empyema 0735 (Given - Provider: Candi Leonard R.N.)1357 (Given - Provider: Candi Leonard R.N.)2107 (Given - Provider: Myke Alexander R.N.) 0838 (Given - Provider: Malcolm Cordon R.N.)1346 (Given - Provider: Malcolm Cordon R.N.)2037 (Given - Provider: Isis Flaherty R.N.) 0842 (Given - Provider: Malcolm Cordon R.N.) pregabalin capsule 200 mg (Lyrica) 200 mg, oral, 3 times daily, First dose on Mon07/13/24 at 2100 0735 (Given - Provider: Candi Leonard R.N.)1357 (Given - Provider: Candi Leonard R.N.)2107 (Given - Provider: Myke Alexander R.N.) 0838 (Given - Provider: Malcolm Cordon R.N.)1345 (Given - Provider: Malcolm Cordon R.N.)2037 (Given - Provider: Isis Flaherty R.N.) 0842 (Given - Provider: Malcolm Cordon R.N.) sennosides tablet 17.2 mg (Senokot) 17.2 mg, oral, Daily, First dose on Mon07/14/24 at 0900, Do not give if patient [...] maintain patency flush 10 mL per lumen. 2124 (Given - Provider: Myke Alexander R.N.) 0939 (Given - Provider: Malcolm Cordon R.N.)212 (Not Given - Provider: Isis Flaherty R.N. [...] or score 7-10 of 10, Starting on 07/13/24 at 1953 0243 (Given - Provider: Dandre Hollis R.N.)0727 (Given - Provider: Candi Leonard R.N.) ibuprofen tablet 400 mg 400 mg, oral, Every 6 hours PRN, moderate pain or score 4-6 of 10, severe pain or score 7-10 of 10, Starting on Mon07/19/24 at 2135, Take with food or milk if GI disturbances occur with use. 2143 (Given - Provider: Isis Flaherty R.N.) 0549 (Given - Provider: Isis Flaherty R.N.) ipratropium-albuteroL 0.5-2.5 mg/3 mL nebulizer solution 3 mL (DuoNeb) 3 mL, nebulization, 4 times daily PRN, shortness of breath, Starting on 07/13/24 at 1953 ketorolac injection 15 mg (ToradoL) (CANCELED) 15 [...] Hollis R.N.)1228 (Given - Provider: Candi Leonard R.N.)5182 (Given - Provider: Myke Alexander R.N.) 0546 (Given - Provider: Myke Alexander RDmitryN.) LORazepam tablet 0.5 mg (Ativan) 0.5 mg, [...] Leonard R.N.)1941 (Given - Provider: Myke Alexander RDmitryN.) 0402 (Given - Provider: Tara Stout RDmitryN.)1043 (Given - Provider: Malcolm Cordon RDmitryN.)1805 (Given - Provider: Malcolm Cordon RAlexi.) 0549 (Given - Provider: Isis Flaherty RDmitryN.) NaCl 0.9% infusion 1-999 mL/hr, intravenous, As [...] analgesics. 0044 (Given - Provider: Dandre Hollis R.N.)0501 (Given - Provider: Mariluz Daniel RDmitryN.)1646 (Given - Provider: Candi Leonard R.N.)2107 (Given - Provider: Myke Alexander R.N.) 0301 [...] R.N.)0501 (See Alternative - Provider: Mariluz Daniel RDmitryNDmitry)1646 (See Alternative - Provider: Candi Leonard RSelvin)2107 (See Alternative - Provider: Myke Alexander R.N.) [...] Depression Total Score: 22 025 7:19 PM WELL CONTROL INSTRUCTOR documented as of this encounter Care Teams Laborer [employer] Relationship Specialty Start Date End Date Prudence Mena MPAS, P.A.-C. [address] [facility] [place] [phone] PCP - General Internal Medicine 02/08/24 documented as of this encounter
--- OUTSIDE RECORDS SUMMARY | 2024-07-28 21:16 | XMS_ITS | Encounter Summary ---
Author Organization [facility] Address [address] [place] [address] Care Team Providers Care Hvac Engineering Technician Name Role Phone Prudence Mena P.A.-C. Primary Care Pro vider Reason for Referral * Outpatient (Routine) - Authorized Specialty Diagnoses / Procedures Referred By Contac t Referred To Contact Diagnoses Empyema Pleural (HCC) Procedures DX Chest AP or PA and Lateral 2 Views Kayleigh Small M.D. [address] [place] [address] Phone: tel: fax: [facility] Referral ID Status Reason Start Date Expiration Date V isits Requested Visits Authorized [id number] Authorized 07/18/2024 07/18/2025 1 1 CTOR PERSONAL * Outpatient (Routine) - Authorized Specialty Diagnoses / Procedures Referred By Contac t Referred To Contact Infectious Diseases Diagnoses Empyema Pleural (HCC) Kayleigh Small M.D. [address] [place] [address] Phone: tel: fax: [facility] Referral ID Status Reason Start Date Expiration Date V isits Requested Visits Authorized [id number] Authorized 07/18/2024 01/17/2026 1 1 CTOR PERSONAL Reason for Visit * Reason Onset Date Comments Post Hospital Follow-up 07/18/2024 Encounter Details Date Type Department Care Team (Latest Contact Info) Description 07/18/2024 Clinical Communication RST HIM [address] [place] [address] Kayleigh Small M.D. [address] [place] [address] Post Hospital Follow-up Social History Tobacco Use Types Packs/Day Years Used Date Smoking Tobacco: Former Cigarettes 1.5 0.1 S tarted: 06/21/2024 Passive Smoke Exposure: Past Smokeless Tobacco: Never Alcohol Use Standard Drinks/Week Comments Yes 0 (1 standard drink = 0.6 oz pur e alcohol) socially [facility] Someecardsities Answer Date Recorded In the past 12 months has e electric, gas, oil, or water [employer] threatened to shut off services in your [...] Never 07/27/2022 How often do you attend hinduism or episcopal serv ices? Never 07/27/2022 Do you belong to any clubs o r organizations such as hinduism groups, unions, fraternal or athletic groups, or [...] Date Recorded PHQ-2 Score 6 07/10/2024 [facility] of Occupat ional [facility] - Occupational Stress Questionnaire Answer [...] Contact Info) Description 07/29/2024 10:00 AM DIRECTOR PERSONAL Infusion Department of Infusion Therapy in [address] [phone] Melinda Isaac APRN, C.N.P. [address] [place] [phone] 07/29/2024 2:20 PM DIRECTOR PERSONAL Office Visit Department of Community Internal Medicine in [place], [place] 300 [place] [phone] Prudence Mena MPAS, P.A.-C. 300 [place] [phone] 07/30/2024 9:00 AM DIRECTOR PERSONAL Infusion Department of Infusion Therapy in [address] [phone] Melinda Isaac APRN, C.N.P. [address] [place] [phone] 07/31/2024 8:00 AM DIRECTOR PERSONAL Infusion Department of Infusion Therapy in [address] [phone] Melinda Isaac APRN, C.N.P. [address] [place] [phone] 08/01/2024 7:00 AM DIRECTOR PERSONAL Infusion Department of Infusion Therapy in [address] [phone] Melinda Isaac APRN, C.N.P. [address] [place] [phone] 08/02/2024 9:00 AM DIRECTOR PERSONAL Infusion Department of Infusion Therapy in [address] [phone] Melinda Isaac APRN, C.N.P. [address] [place] [phone] 08/02/2024 12:30 PM DIRECTOR PERSONAL Clinical Communication Virtual Review in [place], [place] 200 [place] [address] 08/03/2024 9:00 AM DIRECTOR PERSONAL Infusion Department of Infusion Therapy in [address] [address] Melinda Isaac APRN, C.N.P. [address] [place] [phone] 08/04/2024 9:00 AM DIRECTOR PERSONAL Infusion Department of Infusion Therapy in [address] [phone] Melinda Isaac APRN, C.N.P. [address] [place] [phone] 08/05/2024 8:45 AM DIRECTOR PERSONAL Appointment Department of Radiology, [facility], in [place], [place] [address] [place] [phone] Kayleigh Small M.D. [address] [place] [phone] 08/05/2024 9:00 AM DIRECTOR PERSONAL Infusion Department of Infusion Therapy in [address] [phone] Melinda Isaac APRN, C.N.P. [address] [place] [phone] 08/05/2024 11:00 AM DIRECTOR PERSONAL Office Visit Section of Infectious Diseases in [place], [place] [address] [place] [phone] Kayleigh Small M.D. [address] [place] [phone] 08/06/2024 9:00 AM DIRECTOR PERSONAL Infusion Department of Infusion Therapy in [address] [phone] Melinda Isaac APRN, C.N.P. [address] [place] [phone] 08/07/2024 9:00 AM DIRECTOR PERSONAL Infusion Department of Infusion Therapy in [address] [phone] Melinda Isaac APRN, C.N.P. [address] [place] [phone] 08/08/2024 9:00 AM DIRECTOR PERSONAL Infusion Department of Infusion Therapy in [address] [phone] Melinda Isaac APRN, C.N.P. [address] [place] [phone] 08/09/2024 9:00 AM DIRECTOR PERSONAL Infusion Department of Infusion Therapy in [address] [phone] Melinda Isaac APRN, C.N.P. [address] [place] [phone] 08/10/2024 9:00 AM DIRECTOR PERSONAL Infusion Department of Infusion Therapy in [address] [phone] Melinda Isaac APRN, C.N.P. [address] [place] [phone] 08/11/2024 9:00 AM DIRECTOR PERSONAL Infusion Department of Infusion Therapy in [address] [phone] Melinda Isaac APRN, C.N.P. [address] [place] [phone] 08/12/2024 9:00 AM DIRECTOR PERSONAL Infusion Department of Infusion Therapy in [address] [phone] Melinda Isaac APRN, C.N.P. [address] [place] [phone] 08/13/2024 8:30 AM DIRECTOR PERSONAL Infusion Department of Infusion Therapy in [address] [address] Melinda Isaac APRN, C.N.P. [address] [place] [phone] 08/14/2024 9:00 AM DIRECTOR PERSONAL Infusion Department of Infusion Therapy in [address] [phone] Melinda Isaac APRN, C.N.P. [address] [place] [phone] 08/15/2024 9:00 AM DIRECTOR PERSONAL Infusion Department of Infusion Therapy in [address] [address] Melinda Isaac APRN, C.N.P. [address] [place] [phone] 08/16/2024 9:00 AM DIRECTOR PERSONAL Infusion Department of Infusion Therapy in [address] [phone] Melinda Isaac APRN, C.N.P. [address] [place] [phone] 08/17/2024 9:00 AM DIRECTOR PERSONAL Infusion Department of Infusion Therapy in [address] [phone] Melinda Isaac APRN, C.N.P. [address] [place] [phone] 08/18/2024 9:00 AM DIRECTOR PERSONAL Infusion Department of Infusion Therapy in [address] [phone] Melinda Isaac, FRED, C.N.P. [address] [place] [address] Scheduled Orders Name Type Priority Associated Diagnoses Orde r Schedule DX Chest AP or PA and Lateral 2 Views Imaging RAD - Routine (most inpatients and all outpatients) Empyema Pleural (HCC) Expected: 08/05/2024 (Approximate), Expires: 07/18/2025 Scheduled Referrals Name Type Priority Associated Diagnoses Order Schedule Infectious Diseases office visit (clinic) Outpatient Referral Routine Empyema Pleural (HCC) Expected: 08/05/2024, Expires: 10/16/2025 documented as of this encounter Visit Diagnoses Diagnosis Empyema Pleural (HCC)- Primary documented in this encounter Additional Health Concerns Assessment Noted Time PHQ-9 Depression Total Score: 22 025 7:19 PM DIRECTOR PERSONAL documented as of this encounter Care Teams Hvac Engineering Technician Relationship Specialty Start Date End Date Prudence Mena MPAS, P.A.-C. [address] [place] [phone] PCP - General Internal Medicine 02/08/24 documented as of this encounter
--- OUTSIDE RECORDS SUMMARY | 2024-07-28 21:16 | XMS_ITS | Encounter Summary ---
Author Organization [facility] Address [address] [place] [address] Care Team Providers Care Academic Interventionist Name Role Phone Prudence Mena P.A.-C. Primary Care Pro vider Reason for Visit * Reason Comments Outpatient Infusion Encounter Details Date Type Department Care Team (Late st Contact Info) Description 07/21/2024 9:00 AM CARRY ALL DRIVER Infusion Department of Infusion Therapy in [address] [phone] Melinda Isaac, FRED, C.N.P. [address] [place] [phone] Empyema Pleural (HCC) (Primary Dx); Pneumonia Social History Tobacco Use Types Packs/Day Years Used Date Smoking Tobacco: Former Cigarettes 1.5 0.1 S tarted: 06/21/2024 Passive Smoke Exposure: Past Smokeless Tobacco: Never Alcohol Use Standard Drinks/Week Comments Yes 0 (1 standard drink = 0.6 oz pur e alcohol) socially [facility] Utilities Answer Date Recorded In [...] Never 07/27/2022 How often do you attend jainism or mormon serv ices? Never 07/27/2022 Do you belong to any clubs o r organizations such as jainism groups, unions, fraternal or athletic groups, or [...] Answer Date Recorded PHQ-2 Score 6 07/10/2024 [facility] of Occupat ional Health - Occupational [...] Sign Reading Time Taken Comments Blood Pressure 137/89 07/21/2024 9:19 AM CARRY ALL DRIVER Pulse 103 07/21/2024 9:19 AM CARRY ALL DRIVER Temperature 36 C (96.8 F) 07/21/2024 9:19 AM CARRY ALL DRIVER Respiratory Rate 18 07/21/2024 9:19 AM CARRY ALL DRIVER Oxygen Saturation 95% 07/21/2024 9:19 AM CARRY ALL DRIVER Inhaled Oxygen Concentration - - Weight - - Height - - Body Mass Index - - documented in this encounter Plan of Treatment Upcoming Encounters Date Type Department Care Team (Late st Contact Info) Description 07/29/2024 10:00 AM CARRY ALL DRIVER Infusion Department of Infusion Therapy in [address] [phone] Melinda Isaac APRN, C.N.P. [address] [place] [phone] 07/29/2024 2:20 PM CARRY ALL DRIVER Office Visit Department of Community Internal Medicine in [place], [place] 300 [place] [phone] Prudence Mena MPAS, P.A.-C. 300 [place] [phone] 07/30/2024 9:00 AM CARRY ALL DRIVER Infusion Department of Infusion Therapy in [address] [phone] Melinda Isaac APRN, C.N.P. [address] [place] [phone] 07/31/2024 8:00 AM CARRY ALL DRIVER Infusion Department of Infusion Therapy in [address] [phone] Melinda Isaac APRN, C.N.P. [address] [place] [phone] 08/01/2024 7:00 AM CARRY ALL DRIVER Infusion Department of Infusion Therapy in [address] [phone] Melinda Isaac APRN, C.N.P. [address] [place] [phone] 08/02/2024 9:00 AM CARRY ALL DRIVER Infusion Department of Infusion Therapy in [address] [phone] Melinda Isaac APRN, C.N.P. [address] [place] [phone] 08/02/2024 12:30 PM CARRY ALL DRIVER Clinical Communication Virtual Review in [place], [place] 200 [place] [phone] 08/03/2024 9:00 AM CARRY ALL DRIVER Infusion Department of Infusion Therapy in [address] [phone] Melinda Isaac APRN, C.N.P. [address] [place] [phone] 08/04/2024 9:00 AM CARRY ALL DRIVER Infusion Department of Infusion Therapy in [address] [phone] Melinda Isaac APRN, C.N.P. [address] [place] [phone] 08/05/2024 8:45 AM CARRY ALL DRIVER Appointment Department of Radiology, [facility], in [place], [place] [address] [place] [phone] Kayleigh Small M.D. [address] [place] [phone] 08/05/2024 9:00 AM CARRY ALL DRIVER Infusion Department of Infusion Therapy in [address] [phone] Melinda Isaac APRN, C.N.P. [address] [place] [phone] 08/05/2024 11:00 AM CARRY ALL DRIVER Office Visit Section of Infectious Diseases in [place], [place] [address] [place] [phone] Kayleigh Small M.D. [address] [place] [phone] 08/06/2024 9:00 AM CARRY ALL DRIVER Infusion Department of Infusion Therapy in [address] [phone] Melinda Isaac APRN, C.N.P. [address] [place] [phone] 08/07/2024 9:00 AM CARRY ALL DRIVER Infusion Department of Infusion Therapy in [address] [phone] Melinda Isaac APRN, C.N.P. [address] [place] [phone] 08/08/2024 9:00 AM CARRY ALL DRIVER Infusion Department of Infusion Therapy in [address] [phone] Melinda Isaac APRN, C.N.P. [address] [place] [phone] 08/09/2024 9:00 AM CARRY ALL DRIVER Infusion Department of Infusion Therapy in [address] [phone] Melinda Isaac APRN, C.N.P. [address] [place] [phone] 08/10/2024 9:00 AM CARRY ALL DRIVER Infusion Department of Infusion Therapy in [address] [phone] Melinda Isaac APRN, C.N.P. [address] [place] [phone] 08/11/2024 9:00 AM CARRY ALL DRIVER Infusion Department of Infusion Therapy in [address] [phone] Melinda Isaac APRN, C.N.P. [address] [place] [phone] 08/12/2024 9:00 AM CARRY ALL DRIVER Infusion Department of Infusion Therapy in [address] [phone] Melinda Isaac APRN, C.N.P. [address] [place] [phone] 08/13/2024 8:30 AM CARRY ALL DRIVER Infusion Department of Infusion Therapy in [address] [phone] Melinda Isaac APRN, C.N.P. [address] [place] [phone] 08/14/2024 9:00 AM CARRY ALL DRIVER Infusion Department of Infusion Therapy in [address] [phone] Melinda Isaac APRN, C.N.P. [address] [place] [phone] 08/15/2024 9:00 AM CARRY ALL DRIVER Infusion Department of Infusion Therapy in [address] [phone] Melinda Isaac APRN, C.N.P. [address] [place] [phone] 08/16/2024 9:00 AM CARRY ALL DRIVER Infusion Department of Infusion Therapy in [address] [phone] Melinda Isaac APRN, C.N.P. [address] [place] [phone] 08/17/2024 9:00 AM CARRY ALL DRIVER Infusion Department of Infusion Therapy in [address] [phone] Melinda Isaac APRN, C.N.P. [address] [place] [phone] 08/18/2024 9:00 AM CARRY ALL DRIVER Infusion Department of Infusion Therapy in [address] [phone] Melinda Isaac APRN, C.N.P. [address] [place] [phone] documented as of this encounter Procedures Procedure Name Priority Date/Time Associated Diagnosis Comments CBC WITH DIFFERENTIAL, B Routine 07/21/2024 9:24 AM CARRY ALL DRIVER Pneumonia BASIC METABOLIC PANEL, S/P Routine 07/21/2024 9:24 AM CARRY ALL DRIVER Pneumonia documented in this encounter Results * (ABNORMAL) Basic Metabolic Panel (07/21/2024 9:24 AM CARRY ALL DRIVER) Pathologist [facility] Potassium, P 3.1(L) 3.6 - 5.2 mmol/L 07/21/2024 9:55 AM CARRY ALL DRIVER [facility] Sodium, P 143 135 - 145 mmol/L 07/21/2024 9:55 AM CARRY ALL DRIVER [facility] Chloride, P 102 98 - 107 mmol/L 07/21/2024 9:55 AM CARRY ALL DRIVER [facility] Bicarbonate, P 30(H) 22 - 29 mmol/L 07/21/2024 9:55 AM CARRY ALL DRIVER [facility] Anion Gap, P 11 7 - 15 07/21/2024 9:55 AM CARRY ALL DRIVER [facility] BUN (Blood Urea Nitrogen), P 8 6 - 21 mg/dL 07/21/2024 9:55 AM CARRY ALL DRIVER [facility] Creatinine 0.69 0.59 - 1.04 mg/dL 07/21/2024 9:55 AM CARRY ALL DRIVER [facility] Estimated GFR (eGFR) >90 >=60 mL/min/BSA 07/21/2024 9:55 AM CARRY ALL DRIVER [facility] Comment: Estimated GFR calculated using the 2020 CKD_EPI creatinine equation. Calcium, Total, P 8.7 8.6 - 10.0 mg/dL 07/21/2024 9:55 AM CARRY ALL DRIVER [facility] Glucose, P 97 70 - 140 mg/dL 07/21/2024 9:55 AM CARRY ALL DRIVER [facility] Blood (Blood, Venous) 07/21/2024 9:24 AM CARRY ALL DRIVER 07/21/2024 9:32 AM CARRY ALL DRIVER Prudence TO, P.A.-C. LAB BLOOD ADD-ON Final Result [facility] [address] [address], [place] [facility] in [place] [address] [place] [phone] * (ABNORMAL) CBC with Differential, Blood (07/21/2024 9:24 AM CARRY ALL DRIVER) Hemoglobin 8.6(L) 11.6 - 15.0 g/dL 07/21/2024 9:34 AM CARRY ALL DRIVER [facility] Hematocrit 27.0(L) 35.5 - 44.9 % 07/21/2024 9:34 AM CARRY ALL DRIVER [facility] Erythrocytes 3.00(L) 3.92 - 5.13 x10(12)/L 07/21/2024 9:34 AM CARRY ALL DRIVER [facility] MCV 90.0 78.2 - 97.9 fL 07/21/2024 9:34 AM CARRY ALL DRIVER [facility] RBC Distrib Width 15.5 12.2 - 16.1 % 07/21/2024 9:34 AM CARRY ALL DRIVER [facility] Platelet Count 515(H) 157 - 371 x10(9)/L 07/21/2024 9:34 AM CARRY ALL DRIVER [facility] Leukocytes 7.9 3.4 - 9.6 x10(9)/L 07/21/2024 9:34 AM CARRY ALL DRIVER [facility] Neutrophils 5.44 1.56 - 6.45 x10(9)/L 07/21/2024 9:34 AM CARRY ALL DRIVER [facility] Lymphocytes 1.31 0.95 - 3.07 x10(9)/L 07/21/2024 9:34 AM CARRY ALL DRIVER [facility] Monocytes 0.65 0.26 - 0.81 x10(9)/L 07/21/2024 9:34 AM CARRY ALL DRIVER [facility] Eosinophils 0.45 0.03 - 0.48 x10(9)/L 07/21/2024 9:34 AM CARRY ALL DRIVER [facility] Basophils <0.03 0.01 - 0.08 x10(9)/L 07/21/2024 9:34 AM CARRY ALL DRIVER [facility] Blood (Blood, Venous) 07/21/2024 9:24 AM CARRY ALL DRIVER 07/21/2024 9:32 AM CARRY ALL DRIVER us Prudence TO, P.A.-C. LAB BLOOD ADD-ON Final Result [facility] [address] [address], [facility] R[facility] [place] [address] [phone] documented in this encounter Visit Diagnoses Diagnosis Empyema Pleural (HCC)- Primary Pneumonia documented in this encounter Administered Medications Inactive Administered Medications - up to 3 most recent administrations Medication Order MAR Action Action Date Dose Rate Site cefTRIAXone injection 2 g (Rocephin) 2 g, intravenous, Once, On 07/21/24 at 0945, For 1 dose, If needed, reconstitute vial per package insert instructions. See IVAG for administration guidelines., Drug Monitoring Program: Pharmacist to adjust medication dosing based on indication and drug clearance factors., Indications: Respiratory tract infection, community acquiredIndications:Respiratory tract infection, community acquired Given 07/21/2024 9:28 AM CARRY ALL DRIVER 2 g sodium chloride 0.9 % injection 10-30 mL 10-30 mL, intravenous, As needed, line care, Starting on 07/21/24 at 0903, Prior to and following infusion, between multiple consecutive infusions.10 mL to each lumen.Indications:Empyema Pleural (HCC) Given 07/21/2024 9:32 AM CARRY ALL DRIVER 10 mL Given 07/21/2024 9:00 AM CARRY ALL DRIVER 30 mL documented in this encounter Additional Health Concerns Assessment Noted Time PHQ-9 Depression Total Score: 22 025 7:19 PM CARRY ALL DRIVER documented as of this encounter Care Teams Academic Interventionist Relationship Specialty Start Date End Date Prudence Mena MPAS, P.A.-C. [address] [place] [phone] PCP - General Internal Medicine 02/08/24 documented as of this encounter
--- OUTSIDE RECORDS SUMMARY | 2024-07-28 21:16 | XMS_ITS | Encounter Summary ---
Author Organization [facility] Address [address] [place] [address] Care Team Providers Care Marketing Research Analyst Name Role Phone Prudence Mena P.A.-C. Primary Care Pro vider Encounter Details Date Type Department Care Team (Late st Contact Info) Description 07/19/2024 Clinical Communication Division of Thoracic Surgery in [place], [place] [address] [place] [phone] Melinda Isaac, FRED, C.N.P. [address] [place] [phone] Social History Tobacco Use Types Packs/Day Years Used Date Smoking Tobacco: Former Cigarettes 1.5 0.1 S tarted: 06/21/2024 Passive Smoke Exposure: Past Smokeless Tobacco: Never Alcohol Use Standard Drinks/Week Comments Yes 0 (1 standard drink = 0.6 oz pur e alcohol) socially [facility] Utilities Answer Date Recorded In the past 12 months has [employer], gas, oil, or water [employer] threatened to shut off services in your [...] Never 07/27/2022 How often do you attend uatsdin or samaritan serv ices? Never 07/27/2022 Do you belong to any clubs o r organizations such as uatsdin groups, unions, fraternal or athletic groups, or [...] Answer Date Recorded PHQ-2 Score 6 07/10/2024 [facility] - Occupational [...] st Contact Info) Description 07/29/2024 10:00 AM TRAINING AND DEVELOPMENT SPECIALIST Infusion Department of Infusion Therapy in [address] [phone] Melinda Isaac, WIRE CHIEF, C.N.P. 200 [facility] [place] [address] 07/29/2024 2:20 PM TRAINING AND DEVELOPMENT SPECIALIST Office Visit Department of Community Internal Medicine in [place], [place] 300 [place] [phone] Prudence Mena, MPAS, P.A.-C. 300 [place] [phone] 07/30/2024 9:00 AM TRAINING AND DEVELOPMENT SPECIALIST Infusion Department of Infusion Therapy in [address] [phone] Melinda Isaac APRN, C.N.P. [address] [place] [phone] 07/31/2024 8:00 AM TRAINING AND DEVELOPMENT SPECIALIST Infusion Department of Infusion Therapy in [address] [phone] Melinda Isaac APRN, C.N.P. [address] [place] [phone] 08/01/2024 7:00 AM TRAINING AND DEVELOPMENT SPECIALIST Infusion Department of Infusion Therapy in [address] [phone] Melinda Isaac APRN, C.N.P. [address] [place] [phone] 08/02/2024 9:00 AM TRAINING AND DEVELOPMENT SPECIALIST Infusion Department of Infusion Therapy in [address] [address] Melinda Isaac APRN, C.N.P. [address] [place] [phone] 08/02/2024 12:30 PM TRAINING AND DEVELOPMENT SPECIALIST Clinical Communication Virtual Review in [place], [place] 200 [place] [address] 08/03/2024 9:00 AM TRAINING AND DEVELOPMENT SPECIALIST Infusion Department of Infusion Therapy in [address] [phone] Melinda Isaac APRN, C.N.P. [address] [place] [phone] 08/04/2024 9:00 AM TRAINING AND DEVELOPMENT SPECIALIST Infusion Department of Infusion Therapy in [address] [phone] Melinda Isaac APRN, C.N.P. [address] [place] [phone] 08/05/2024 8:45 AM TRAINING AND DEVELOPMENT SPECIALIST Appointment Department of Radiology, [facility], in [place], [place] [address] [place] [phone] Kayleigh Small M.D. [address] [place] [phone] 08/05/2024 9:00 AM TRAINING AND DEVELOPMENT SPECIALIST Infusion Department of Infusion Therapy in [address] [phone] Melinda Isaac APRN, C.N.P. [address] [place] [phone] 08/05/2024 11:00 AM TRAINING AND DEVELOPMENT SPECIALIST Office Visit Section of Infectious Diseases in [place], [place] [address] [place] [phone] Kayleigh Small M.D. [address] [place] [phone] 08/06/2024 9:00 AM TRAINING AND DEVELOPMENT SPECIALIST Infusion Department of Infusion Therapy in [address] [phone] Melinda Isaac APRN, C.N.P. [address] [place] [phone] 08/07/2024 9:00 AM TRAINING AND DEVELOPMENT SPECIALIST Infusion Department of Infusion Therapy in [address] [address] Melinda Isaac APRN, C.N.P. [address] [place] [phone] 08/08/2024 9:00 AM TRAINING AND DEVELOPMENT SPECIALIST Infusion Department of Infusion Therapy in [address] [phone] Melinda Isaac APRN, C.N.P. [address] [place] [phone] 08/09/2024 9:00 AM TRAINING AND DEVELOPMENT SPECIALIST Infusion Department of Infusion Therapy in [address] [phone] Melinad Isaac APRN, C.N.P. [address] [place] [phone] 08/10/2024 9:00 AM TRAINING AND DEVELOPMENT SPECIALIST Infusion Department of Infusion Therapy in [address] [address] Melinda Isaac APRN, C.N.P. [address] [place] [phone] 08/11/2024 9:00 AM TRAINING AND DEVELOPMENT SPECIALIST Infusion Department of Infusion Therapy in [address] [address] Melinda Isaac APRN, C.N.P. [address] [place] [phone] 08/12/2024 9:00 AM TRAINING AND DEVELOPMENT SPECIALIST Infusion Department of Infusion Therapy in [address] [address] Melinda Isaac APRN, C.N.P. [address] [place] [phone] 08/13/2024 8:30 AM TRAINING AND DEVELOPMENT SPECIALIST Infusion Department of Infusion Therapy in [address] [address] Melinda Isaac APRN, C.N.P. [address] [place] [phone] 08/14/2024 9:00 AM TRAINING AND DEVELOPMENT SPECIALIST Infusion Department of Infusion Therapy in [address] [address] Melinda Isaac APRN, C.N.P. [address] [place] [phone] 08/15/2024 9:00 AM TRAINING AND DEVELOPMENT SPECIALIST Infusion Department of Infusion Therapy in [address] [phone] Melinda Isaac APRN, C.N.P. [address] [place] [phone] 08/16/2024 9:00 AM TRAINING AND DEVELOPMENT SPECIALIST Infusion Department of Infusion Therapy in [address] [address] Melinda Isaac APRN, C.N.P. [address] [place] [phone] 08/17/2024 9:00 AM TRAINING AND DEVELOPMENT SPECIALIST Infusion Department of Infusion Therapy in [address] [phone] Melinda Isaac APRN, C.N.P. [address] [place] [phone] 08/18/2024 9:00 AM TRAINING AND DEVELOPMENT SPECIALIST Infusion Department of Infusion Therapy in [address] [phone] Melinda Isaac APRN, C.N.P. [address] [place] [phone] documented as of this encounter Visit Diagnoses Not on filedocumented in this encounter Additional Health Concerns Assessment Noted Time PHQ-9 Depression Total Score: 22 025 7:19 PM TRAINING AND DEVELOPMENT SPECIALIST documented as of this encounter Care Teams Marketing Research Analyst Relationship Specialty Start Date End Date Prudence Mena MPAS, P.A.-C. [address] [place] [phone] PCP - General Internal Medicine 02/08/24 documented as of this encounter
--- OUTSIDE RECORDS SUMMARY | 2024-07-28 21:17 | XMS_ITS | Encounter Summary ---
Author Organization [facility] Address [address] [place] [address] Care Team Providers Care Fiberglass Roving Winder Name Role Phone Prudence Mena P.A.-C. Primary Care Pro vider Encounter Details Date Type Department Care Team (Latest Contact Info) Description 07/13/2024 [facility]ake [facility] Social History Tobacco Use Types Packs/Day Years Used Date Smoking Tobacco: Former Cigarettes 1.5 0.1 S tarted: 06/21/2024 Passive Smoke Exposure: Past Smokeless Tobacco: Never Alcohol Use Standard Drinks/Week Comments Yes 0 (1 standard drink = 0.6 oz pur e alcohol) socially [facility] Utilities Answer Date Recorded In the past 12 months has e [employer], gas, oil, or water [employer] threatened to shut off services in your [...] Never 07/27/2022 How often do you attend yarsanism or restorationism serv ices? Never 07/27/2022 Do you belong to any clubs o r organizations such as yarsanism groups, unions, fraternal or athletic groups, or [...] Answer Date Recorded PHQ-2 Score 6 07/10/2024 [facility] - Occupational Stress [...] Sign Reading Time Taken Comments Blood Pressure 124/68 07/13/2024 7:49 PM WIRE HANGER Pulse - - Temperature 36.7 C (98.1 F) 07/13/2024 2:28 PM WIRE HANGER Respiratory Rate 20 07/13/2024 7:49 PM WIRE HANGER Oxygen Saturation 95% 07/13/2024 7:49 PM WIRE HANGER Inhaled Oxygen Concentration - - Weight 96 kg (211 lb 10.3 oz) 07/13/2024 2:28 PM WIRE HANGER Height - - Body Mass Index 36.13 07/11/2024 10:32 AM WIRE HANGER documented in this encounter Functional Status * Intimate Partner Violence Question Answer Date of Assessment Author Within the last year, have y ou been humiliated or emotionally abused in other ways by your partner or ex-partner? No 07/15/2024 8:00 PM WIRE HANGER Helena Brady R.N. Within the last year, have y ou been afraid of your partner or ex-partner? No 07/15/2024 8:00 PM WIRE HANGER Helena Brady R.N. Within the last year, have y ou been raped or forced to have any kind of sexual activity by your partner or ex-partner? No 07/15/2024 8:00 PM WIRE HANGER Helena Brady R.N. Within the last year, have y ou been kicked, hit, slapped, or otherwise physically hurt by your partner or ex-partner? No 07/15/2024 8:00 PM WIRE HANGER Helena Brady R.N. documented as of this encounter Progress Notes * Khoa Delgado, M.SKisha, MonicaSDmitryW. - 07/13/2024 2:14 PM CST [facility]: ATC referral SUBJECTIVE Referral received from [facility] on 07/13/24, as part of hospital transfer request from [place], [place] (phone: [phone]). OBJECTIVE This patient was not accepted for transfer prior to the assessment process. This is a 39 y.o. year old female from [address] [place], [place] [phone]. The patient was admitted to their facility on 07/13/2024 for empyema . The physician is requesting transfer. The patient is aware of, and agrees with, the request to transfer. Reason for transfer request: Higher level of care. Patient is alert and oriented, able to make their own decisions. Referring facility reports the following information: Oxygen: Patient is not requiring supplemental oxygen. Bariatric equipment: Patient does not require bariatric equipment. Mobility: ambulating independently with no assistive device ADLs: Patient does not require assistance with activities of daily living. Prior to admission, the patient was living at home independently by self. Wound care: No concerns Diet: Regular diet Isolation precautions: Standard Dialysis: None IV Antibiotics: vancomycin, clindamycin, and ceftriaxone Behavioral concerns: No concerns Psychiatric concerns: No concerns Legal concerns: No concerns Financial concerns: No concerns Family concerns: No concerns Multiple hospitalizations: No concerns Patient has the following supports: mother Anticipated discharge disposition according to referring facility: Home Self Care ASSESSMENT / PLAN It appears that minimal barriers to discharge planning have been identified as noted above. PLAN: I have discussed that in the event the patient is transferred here the social cost of travel such as lodging, meals, and transport home are the personal responsibility of the patient and family. Theyhave agreed to relay this information to the family. Destiny Manuel, [email or web address]. 07/13/2024 HANGER documented in this encounter Plan of Treatment Upcoming Encounters Date Type Department Care Team (Late st Contact [facility]) Description 07/29/2024 10:00 AM WIRE HANGER Infusion Department of Infusion Therapy in [address] [phone] Melinda Isaac APRN, C.N.P. [address] [place] [phone] 07/29/2024 2:20 PM WIRE HANGER Office Visit Department of Community Internal Medicine in [place], [place] 300 [place] [phone] Prudence Mena MPAS, P.A.-C. 300 [place] [phone] 07/30/2024 9:00 AM WIRE HANGER Infusion Department of Infusion Therapy in [address] [phone] Melinda Isaac APRN, C.N.P. [address] [place] [phone] 07/31/2024 8:00 AM WIRE HANGER Infusion Department of Infusion Therapy in [address] [address] Melinda Isaac APRN, C.N.P. [address] [place] [phone] 08/01/2024 7:00 AM WIRE HANGER Infusion Department of Infusion Therapy in [address] [phone] Melinda Isaac APRN, C.N.P. [address] [place] [phone] 08/02/2024 9:00 AM WIRE HANGER Infusion Department of Infusion Therapy in [address] [phone] Melinda Isaac APRN, C.N.P. [address] [place] [phone] 08/02/2024 12:30 PM WIRE HANGER Clinical Communication Virtual Review in [place], [place] 200 [place] [phone] 08/03/2024 9:00 AM WIRE HANGER Infusion Department of Infusion Therapy in [address] [address] Melinda Isaac APRN, C.N.P. [address] [place] [phone] 08/04/2024 9:00 AM WIRE HANGER Infusion Department of Infusion Therapy in [address] [phone] Melinda Isaac APRN, C.N.P. [address] [place] [phone] 08/05/2024 8:45 AM WIRE HANGER Appointment Department of Radiology, [facility], in [place], [place] [address] [place] [phone] Kayleigh Small M.D. [address] [place] [phone] 08/05/2024 9:00 AM WIRE HANGER Infusion Department of Infusion Therapy in [address] [phone] Melinda Isaac APRN, C.N.P. [address] [place] [phone] 08/05/2024 11:00 AM WIRE HANGER Office Visit Section of Infectious Diseases in [place], [place] [address] [place] [phone] Kayleigh Small M.D. [address] [place] [phone] 08/06/2024 9:00 AM WIRE HANGER Infusion Department of Infusion Therapy in [address] [phone] Melinda Isaac APRN, C.N.P. [address] [place] [phone] 08/07/2024 9:00 AM WIRE HANGER Infusion Department of Infusion Therapy in [address] [address] Melinda Isaac APRN, C.N.P. [address] [place] [phone] 08/08/2024 9:00 AM WIRE HANGER Infusion Department of Infusion Therapy in [address] [address] Melinda Isaac APRN, C.N.P. [address] [place] [phone] 08/09/2024 9:00 AM WIRE HANGER Infusion Department of Infusion Therapy in [address] [phone] Melinda Isaac APRN, C.N.P. [address] [place] [phone] 08/10/2024 9:00 AM WIRE HANGER Infusion Department of Infusion Therapy in [address] [address] Melinda Isaac APRN, C.N.P. [address] [place] [phone] 08/11/2024 9:00 AM WIRE HANGER Infusion Department of Infusion Therapy in [address] [phone] Melinda Isaac APRN, C.N.P. [address] [place] [phone] 08/12/2024 9:00 AM WIRE HANGER Infusion Department of Infusion Therapy in [address] [phone] Melinda Isaac APRN, C.N.P. [address] [place] [phone] 08/13/2024 8:30 AM WIRE HANGER Infusion Department of Infusion Therapy in [address] [address] Melinda Isaac APRN, C.N.P. [address] [place] [phone] 08/14/2024 9:00 AM WIRE HANGER Infusion Department of Infusion Therapy in [address] [phone] Melinda Isaac APRN, C.N.P. [address] [place] [phone] 08/15/2024 9:00 AM WIRE HANGER Infusion Department of Infusion Therapy in [address] [phone] Melinda Isaac APRN, C.N.P. [address] [place] [phone] 08/16/2024 9:00 AM WIRE HANGER Infusion Department of Infusion Therapy in [address] [phone] Melinda Isaac APRN, C.N.P. [address] [place] [phone] 08/17/2024 9:00 AM WIRE HANGER Infusion Department of Infusion Therapy in [address] [phone] Melinda Isaac APRN, C.N.P. [address] [place] [phone] 08/18/2024 9:00 AM WIRE HANGER Infusion Department of Infusion Therapy in [address] [phone] Melinda Isaac APRN, C.N.P. [address] [place] [phone] documented as of this encounter Visit Diagnoses Not on filedocumented in this encounter Additional Health Concerns Assessment Noted Time PHQ-9 Depression Total Score: 22 025 7:19 PM WIRE HANGER documented as of this encounter Care Teams Fiberglass Roving Winder Relationship Specialty Start Date End Date Prudence Mena MPAS, P.A.-C. [address] [facility] [place] [phone] PCP - General Internal Medicine 02/08/24 documented as of this encounter
--- OUTSIDE RECORDS SUMMARY | 2024-07-28 21:17 | XMS_ITS | Encounter Summary ---
Author Organization [facility] Address [address] [place] [address] Care Team Providers Care Prepared Foods Associate Name Role Phone Prudence Mena P.A.-C. Primary Care Pro vider Reason for Visit * Reason Comments Outpatient Infusion Encounter Details Date Type Department Care Team (Late st Contact Info) Description 07/27/2024 9:00 AM ICE SCRAPER Infusion Department of Infusion Therapy in [address] [phone] Melinda Isaac, FRED, C.N.P. [address] [place] [phone] Empyema Pleural (HCC) (Primary Dx) Social History Tobacco Use Types Packs/Day Years Used Date Smoking Tobacco: Former Cigarettes 1.5 0.1 S tarted: 06/21/2024 Passive Smoke Exposure: Past Smokeless Tobacco: Never Alcohol Use Standard Drinks/Week Comments Yes 0 (1 standard drink = 0.6 oz pur e alcohol) socially [facility] Utilities Answer Date Recorded In the [...] Never 07/27/2022 How often do you attend temple or jehovah's witness serv ices? Never 07/27/2022 Do you belong to any clubs o r organizations such as temple groups, unions, fraternal or athletic groups, or [...] Answer Date Recorded PHQ-2 Score 6 07/10/2024 [facility] of Occupat ional Health - Occupational Stress [...] Sign Reading Time Taken Comments Blood Pressure 123/65 07/27/2024 9:18 AM ICE SCRAPER Pulse 110 07/27/2024 9:18 AM ICE SCRAPER Temperature 36.1 C (97 F) 07/27/2024 9:18 AM ICE SCRAPER Respiratory Rate 18 07/27/2024 9:18 AM ICE SCRAPER Oxygen Saturation 97% 07/27/2024 9:18 AM ICE SCRAPER Inhaled Oxygen Concentration - - Weight - - Height - - Body Mass Index - - documented in this encounter Plan of Treatment Upcoming Encounters Date Type Department Care Team (Late st Contact Info) Description 07/29/2024 10:00 AM ICE SCRAPER Infusion Department of Infusion Therapy in [address] [phone] Melinda Isaac APRN, C.N.P. [address] [place] [phone] 07/29/2024 2:20 PM ICE SCRAPER Office Visit Department of Community Internal Medicine in [place], [place] [address] [place] [phone] Prudence Mena MPAS, P.A.-C. 300 [place] [phone] 07/30/2024 9:00 AM ICE SCRAPER Infusion Department of Infusion Therapy in [address] [phone] Melinda Isaac APRN, C.N.P. [address] [place] [phone] 07/31/2024 8:00 AM ICE SCRAPER Infusion Department of Infusion Therapy in [address] [phone] Melinda Isaac APRN, C.N.P. [address] [place] [phone] 08/01/2024 7:00 AM ICE SCRAPER Infusion Department of Infusion Therapy in [address] [address] Melinda Isaac APRN, C.N.P. [address] [place] [phone] 08/02/2024 9:00 AM ICE SCRAPER Infusion Department of Infusion Therapy in [address] [phone] Melinda Isaac APRN, C.N.P. [address] [place] [phone] 08/02/2024 12:30 PM ICE SCRAPER Clinical Communication Virtual Review in [place], [place] 200 [place] [phone] 08/03/2024 9:00 AM ICE SCRAPER Infusion Department of Infusion Therapy in [address] [phone] Melinda Isaac APRN, C.N.P. [address] [place] [phone] 08/04/2024 9:00 AM ICE SCRAPER Infusion Department of Infusion Therapy in [address] [phone] Melinda Isaac APRN, C.N.P. [address] [place] [phone] 08/05/2024 8:45 AM ICE SCRAPER Appointment Department of Radiology, [facility], in [place], [place] [address] [place] [phone] Kayleigh Small M.D. [address] [place] [phone] 08/05/2024 9:00 AM ICE SCRAPER Infusion Department of Infusion Therapy in [address] [phone] Melinda Isaac APRN, C.N.P. [address] [place] [phone] 08/05/2024 11:00 AM ICE SCRAPER Office Visit Section of Infectious Diseases in [place], [place] [address] [place] [phone] Kayleigh Small M.D. [address] [place] [phone] 08/06/2024 9:00 AM ICE SCRAPER Infusion Department of Infusion Therapy in [address] [phone] Melinda Isaac APRN, C.N.P. [address] [place] [phone] 08/07/2024 9:00 AM ICE SCRAPER Infusion Department of Infusion Therapy in [address] [phone] Melinda Isaac APRN, C.N.P. [address] [place] [phone] 08/08/2024 9:00 AM ICE SCRAPER Infusion Department of Infusion Therapy in [address] [phone] Melinda Isaac APRN, C.N.P. [address] [place] [phone] 08/09/2024 9:00 AM ICE SCRAPER Infusion Department of Infusion Therapy in [address] [address] Melinda Isaac APRN, C.N.P. [address] [place] [phone] 08/10/2024 9:00 AM ICE SCRAPER Infusion Department of Infusion Therapy in [address] [phone] Melinda Isaac APRN, C.N.P. [address] [place] [phone] 08/11/2024 9:00 AM ICE SCRAPER Infusion Department of Infusion Therapy in [address] [phone] Melinda Isaac APRN, C.N.P. [address] [place] [phone] 08/12/2024 9:00 AM ICE SCRAPER Infusion Department of Infusion Therapy in [address] [phone] Melinda Isaac APRN, C.N.P. [address] [place] [phone] 08/13/2024 8:30 AM ICE SCRAPER Infusion Department of Infusion Therapy in [address] [address] Melinda Isaac APRN, C.N.P. [address] [place] [phone] 08/14/2024 9:00 AM ICE SCRAPER Infusion Department of Infusion Therapy in [address] [phone] Melinda Isaac APRN, C.N.P. [address] [place] [phone] 08/15/2024 9:00 AM ICE SCRAPER Infusion Department of Infusion Therapy in [address] [phone] Melinda Isaac APRN, C.N.P. [address] [place] [phone] 08/16/2024 9:00 AM ICE SCRAPER Infusion Department of Infusion Therapy in [address] [phone] Melinda Isaac APRN, C.N.P. [address] [place] [phone] 08/17/2024 9:00 AM ICE SCRAPER Infusion Department of Infusion Therapy in [address] [phone] Melinda Isaac APRN, C.N.P. [address] [place] [phone] 08/18/2024 9:00 AM ICE SCRAPER Infusion Department of Infusion Therapy in [address] [phone] Melinda Isaac APRN, C.N.P. [address] [place] [phone] documented as of this encounter Visit Diagnoses Diagnosis Empyema Pleural (HCC)- Primary documented in this encounter Administered Medications Inactive Administered Medications - up to 3 most recent administrations Medication Order MAR Action Action Date Dose Rate Site cefTRIAXone injection 2 g (Rocephin) 2 g, intravenous, Once, On 07/27/24 at 0945, For 1 dose, Every 24 hours If needed, reconstitute vial per package insert instructions. See IVAG for administration guidelines., Drug Monitoring Program: Pharmacist to adjust medication dosing based on indication and drug clearance factors., Indications: Respiratory tract infection, community acquiredIndications:Respiratory tract infection, community acquired Given 07/27/2024 9:23 AM ICE SCRAPER 2 g sodium chloride 0.9 % injection 10-30 mL 10-30 mL, intravenous, As needed, line care, Starting on 07/27/24 at 0915, Prior to and following infusion, between multiple consecutive infusions.10 mL to each lumen.Indications:Empyema Pleural (HCC) Given 07/27/2024 9:29 AM ICE SCRAPER 10 mL Given 07/27/2024 9:23 AM ICE SCRAPER 10 mL documented in this encounter Additional Health Concerns Assessment Noted Time PHQ-9 Depression Total Score: 22 025 7:19 PM ICE SCRAPER documented as of this encounter Care Teams Prepared Foods Associate Relationship Specialty Start Date End Date Prudence Mena MPAS, P.A.-C. [address] [place] [address] [place] [phone] PCP - General Internal Medicine 02/08/24 documented as of this encounter
--- OUTSIDE RECORDS SUMMARY | 2024-07-28 21:17 | XMS_ITS | Encounter Summary ---
Author Organization [facility] Address [address] [place] [address] Care Team Providers Care Marketing Automation Specialist Name Role Phone Prudence Mena P.A.-C. Primary Care Pro vider Reason for Visit * Reason Comments Outpatient Infusion Rocephin Encounter Details Date Type Department Care Team (Late st Contact Info) Description 07/28/2024 9:00 AM WOOD MACHINIST APPRENTICE Infusion Department of Infusion Therapy in [address] [phone] Melinda Isaac, FRED, C.N.P. [address] [place] [phone] Empyema Pleural (HCC) (Primary Dx) Social History Tobacco Use Types Packs/Day Years Used Date Smoking Tobacco: Former Cigarettes 1.5 0.1 S tarted: 06/21/2024 Passive Smoke Exposure: Past Smokeless Tobacco: Never Alcohol Use Standard Drinks/Week Comments Yes 0 (1 standard drink = 0.6 oz pur e alcohol) socially [facility] Utilities Answer Date Recorded In the past [...] Never 07/27/2022 How often do you attend faith or pentecostalism serv ices? Never 07/27/2022 Do you belong to any clubs o r organizations such as faith groups, unions, fraternal or athletic groups, or [...] Answer Date Recorded PHQ-2 Score 6 07/10/2024 [facility] [place] of Occupat ional Health - Occupational Stress [...] Comments Blood Pressure 138/86 07/28/2024 9:13 AM WOOD MACHINIST APPRENTICE Pulse 112 07/28/2024 9:13 AM WOOD MACHINIST APPRENTICE Temperature 35.5 C (95.9 F) 07/28/2024 9:13 AM WOOD MACHINIST APPRENTICE Respiratory Rate 18 07/28/2024 9:13 AM WOOD MACHINIST APPRENTICE Oxygen Saturation 94% 07/28/2024 9:13 AM WOOD MACHINIST APPRENTICE Inhaled Oxygen Concentration - - Weight - - Height - - Body Mass Index - - documented in this encounter Plan of Treatment Upcoming Encounters Date Type Department Care Team (Late st Contact Info) Description 07/29/2024 10:00 AM WOOD MACHINIST APPRENTICE Infusion Department of Infusion Therapy in [address] [phone] Melinda Isaac APRN, C.N.P. [address] [place] [phone] 07/29/2024 2:20 PM WOOD MACHINIST APPRENTICE Office Visit Department of Community Internal Medicine in [place], [place] 300 [place] [phone] Prudence Mena MPAS, P.A.-C. 300 [place] [phone] 07/30/2024 9:00 AM WOOD MACHINIST APPRENTICE Infusion Department of Infusion Therapy in [address] [phone] Melinda Isaac APRN, C.N.P. [address] [place] [phone] 07/31/2024 8:00 AM WOOD MACHINIST APPRENTICE Infusion Department of Infusion Therapy in [address] [address] Melinda Isaac APRN, C.N.P. [address] [place] [phone] 08/01/2024 7:00 AM WOOD MACHINIST APPRENTICE Infusion Department of Infusion Therapy in [address] [address] Melinda Isaac APRN, C.N.P. [address] [place] [phone] 08/02/2024 9:00 AM WOOD MACHINIST APPRENTICE Infusion Department of Infusion Therapy in [address] [phone] Melinda Isaac APRN, C.N.P. [address] [place] [phone] 08/02/2024 12:30 PM WOOD MACHINIST APPRENTICE Clinical Communication Virtual Review in [place], [place] 200 [place] [phone] 08/03/2024 9:00 AM WOOD MACHINIST APPRENTICE Infusion Department of Infusion Therapy in [address] [phone] Melinda Isaac APRN, C.N.P. [address] [place] [phone] 08/04/2024 9:00 AM WOOD MACHINIST APPRENTICE Infusion Department of Infusion Therapy in [address] [phone] Melinda Isaac APRN, C.N.P. [address] [place] [phone] 08/05/2024 8:45 AM WOOD MACHINIST APPRENTICE Appointment Department of Radiology, [facility], in [place], [place] [address] [place] [phone] Kayleigh Small M.D. [address] [place] [phone] 08/05/2024 9:00 AM WOOD MACHINIST APPRENTICE Infusion Department of Infusion Therapy in [address] [phone] Melinda Isaac APRN, C.N.P. [address] [place] [phone] 08/05/2024 11:00 AM WOOD MACHINIST APPRENTICE Office Visit Section of Infectious Diseases in [place], [place] [address] [place] [phone] Kayleigh Small M.D. [address] [place] [phone] 08/06/2024 9:00 AM WOOD MACHINIST APPRENTICE Infusion Department of Infusion Therapy in [address] [phone] Melinda Isaac APRN, C.N.P. [address] [place] [phone] 08/07/2024 9:00 AM WOOD MACHINIST APPRENTICE Infusion Department of Infusion Therapy in [address] [phone] Melinda Isaac APRN, C.N.P. [address] [place] [phone] 08/08/2024 9:00 AM WOOD MACHINIST APPRENTICE Infusion Department of Infusion Therapy in [address] [phone] Melinda Isaac APRN, C.N.P. [address] [place] [phone] 08/09/2024 9:00 AM WOOD MACHINIST APPRENTICE Infusion Department of Infusion Therapy in [address] [address] Melinda Isaac APRN, C.N.P. [address] [place] [phone] 08/10/2024 9:00 AM WOOD MACHINIST APPRENTICE Infusion Department of Infusion Therapy in [address] [phone] Melinda Isaac APRN, C.N.P. [address] [place] [phone] 08/11/2024 9:00 AM WOOD MACHINIST APPRENTICE Infusion Department of Infusion Therapy in [address] [phone] Melinda Isaac APRN, C.N.P. [address] [place] [phone] 08/12/2024 9:00 AM WOOD MACHINIST APPRENTICE Infusion Department of Infusion Therapy in [address] [phone] Melinda Isaac APRN, C.N.P. [address] [place] [phone] 08/13/2024 8:30 AM WOOD MACHINIST APPRENTICE Infusion Department of Infusion Therapy in [address] [phone] Melinda Isaac APRN, C.N.P. [address] [place] [phone] 08/14/2024 9:00 AM WOOD MACHINIST APPRENTICE Infusion Department of Infusion Therapy in [address] [address] Melinda Isaac APRN, C.N.P. [address] [place] [phone] 08/15/2024 9:00 AM WOOD MACHINIST APPRENTICE Infusion Department of Infusion Therapy in [address] [phone] Melinda Isaac APRN, C.N.P. [address] [place] [phone] 08/16/2024 9:00 AM WOOD MACHINIST APPRENTICE Infusion Department of Infusion Therapy in [address] [address] Melinda Isaac APRN, C.N.P. [address] [place] [phone] 08/17/2024 9:00 AM WOOD MACHINIST APPRENTICE Infusion Department of Infusion Therapy in [address] [phone] Melinda Isaac APRN, C.N.P. [address] [place] [phone] 08/18/2024 9:00 AM WOOD MACHINIST APPRENTICE Infusion Department of Infusion Therapy in [address] [phone] Melinda Isaac APRN, C.N.P. [address] [place] [phone] documented as of this encounter Visit Diagnoses Diagnosis Empyema Pleural (HCC)- Primary documented in this encounter Administered Medications Inactive Administered Medications - up to 3 most recent administrations Medication Order MAR Action Action Date Dose Rate Site cefTRIAXone injection 2 g (Rocephin) 2 g, intravenous, Once, On 07/28/24 at 0930, For 1 dose, Every 24 hours If needed, reconstitute vial per package insert instructions. See IVAG for administration guidelines., Drug Monitoring Program: Pharmacist to adjust medication dosing based on indication and drug clearance factors., Indications: Respiratory tract infection, community acquiredIndications:Respiratory tract infection, community acquired Given 07/28/2024 9:14 AM WOOD MACHINIST APPRENTICE 2 g sodium chloride 0.9 % injection 10-30 mL 10-30 mL, intravenous, As needed, line care, Starting on 07/28/24 at 0905, Prior to and following infusion, between multiple consecutive infusions.10 mL to each lumen.Indications:Empyema Pleural (HCC) Given 07/28/2024 9:23 AM WOOD MACHINIST APPRENTICE 10 mL Given 07/28/2024 9:15 AM WOOD MACHINIST APPRENTICE 10 mL documented in this encounter Additional Health Concerns Assessment Noted Time PHQ-9 Depression Total Score: 22 025 7:19 PM WOOD MACHINIST APPRENTICE documented as of this encounter Care Teams Marketing Automation Specialist Relationship Specialty Start Date End Date Prudence Mena MPAS, P.A.-C. [address] [place] [phone] PCP - General Internal Medicine 02/08/24 documented as of this encounter
--- OUTSIDE RECORDS SUMMARY | 2024-07-28 21:17 | XMS_ITS | Encounter Summary ---
Author Organization [facility] Address [address] [place] [address] Care Team Providers Care Political Science Research Assistant Name Role Phone Prudence Mena P.A.-C. Primary Care Pro vider Reason for Visit * Reason Comments Chest Wall Pain left Encounter Details Date Type Department Care Team (Late st Contact Info) Description 07/26/2024 9:14 AM [facility] - 07/26/2024 2:06 PM [facility] Emergency [place] [facility] [address] [place] [phone] Dilcia Valero, AIRCRAFT MACHINIST HELPER, C.N.P. [address] [place] [address] Pain Chest Wall (Primary Dx) Discharge Disposition: Home or Self Care Social History Tobacco Use Types Packs/Day Years Used Date Smoking Tobacco: Former Cigarettes 1.5 0.1 S tarted: 06/21/2024 Passive Smoke Exposure: Past Smokeless Tobacco: Never Alcohol Use Standard Drinks/Week Comments Yes 0 (1 standard drink = 0.6 oz pur e alcohol) socially [facility] Utilities Answer Date Recorded In the past [...] Never 07/27/2022 How often do you attend restoration or evangelical serv ices? Never 07/27/2022 Do you belong to any clubs o r organizations such as restoration groups, unions, fraternal or athletic groups, or [...] Answer Date Recorded PHQ-2 Score 6 07/10/2024 [facility] [place] of Occupat ional Health - Occupational Stress [...] Sign Reading Time Taken Comments Blood Pressure 120/82 07/26/2024 1:45 PM [facility] Pulse 101 07/26/2024 1:45 PM [facility] Temperature 37.3 C (99.1 F) 07/26/2024 9:18 AM [facility] Respiratory Rate 18 07/26/2024 9:18 AM [facility] Oxygen Saturation 96% 07/26/2024 1:45 PM [facility] Inhaled Oxygen Concentration - - Weight - - Height - - Body Mass Index - - documented in this encounter Discharge Instructions * Discharge Instructions* Dilcia Valero APRN, C.N.P. - 07/26/2024 1:28 PM [facility] Fortunately your imaging and blood work today were generally reassuring. I reviewed results with both Infectious Disease and your surgical team and both felt comfortable with results. No evidence of worsening infection either in your lungs or in the chest wall around your surgical sites. I would encourage you to continue your current pain management plan. You can try an additional 1/2 tablet of the oxycodone if needed for breakthrough pain. Since you just picked up a new oxycodone prescription yesterday, I can not write another prescription today. Follow-up with your primary care on Monday and can discuss ongoing pain management as needed. As we discussed, no test is perfect, come back to the emergency department if new or worsening symptoms such as fever, increased cough or pain. ERON * Attachments The following attachments cannot be sent through Care Everywhere. * How to Prevent Constipation After Surgery ([place] Islander) * Chest Wall Pain [id number] ([place] Island[place]) documented in this encounter Medications at Time [...] a venous catheter daily for 17 days. [facility] 07/19/2024 cholecalciferol (VITAMIN D3) 50 mcg (2,000 [...] muscle spasms. 45 tablet 07/20/2024 10:13 AM [facility] 07/19/2024 metroNIDAZOLE (FlagyL) 500 mg tabletIndication s:Empyema Take 1 tablet (500 mg total) by mouth 3 (three) times a day for 17 days Indications: Empyema. 51 tablet 07/20/2024 10:13 AM [facility] 07/19/2024 5 multivitamin capsule Take 1 capsule by mouth daily. nitrofurantoin (MACRODANTIN) 50 mg capsule TAKE ONE CAPSULE BY MOUTH ONE TIME DAILY 90 capsule 3 04/21/2023 ondansetron (Zofran) 4 mg tablet Take 1 tablet (4 mg total) by mouth every 8 (eight) hours as needed for nausea or vomiting for up to 3 days. 10 tablet 07/26/2024 oxyCODONE (Roxicodone) 5 mg immediate release tabletIndication s:Acute Pain Exception Take 1 tablet (5 mg total) by mouth every 4 (four) hours as needed for severe pain or score 7-10 of 10 Indication: Acute Pain Exception. 21 tablet 07/25/2024 polyethylene glycol (MIRALAX) 17 gram/dose oral powder [...] 4.5 mg by mouth at bedtime. 10/11/2022 documented as of this encounter Plan of Treatment Upcoming Encounters Date Type Department Care Team (Late st Contact Info) Description 07/29/2024 10:00 AM [facility] Infusion Department of Infusion Therapy in [address] [phone] Melinda Isaac APRN, C.N.P. [address] [place] [phone] 07/29/2024 2:20 PM [facility] Office Visit Department of Community Internal Medicine in [address] [phone] Prudence Mena MPAS, P.A.-C. [address] [place] [phone] 07/30/2024 9:00 AM [facility] Infusion Department of Infusion Therapy in [address] [phone] Melinda Isaac APRN, C.N.P. [address] [place] [phone] 07/31/2024 8:00 AM [facility] Infusion Department of Infusion Therapy in [address] [phone] Melinda Isaac APRN, C.N.P. [address] [place] [phone] 08/01/2024 7:00 AM [facility] Infusion Department of Infusion Therapy in [address] [phone] Melinda Isaac APRN, C.N.P. [address] [place] [phone] 08/02/2024 9:00 AM [facility] Infusion Department of Infusion Therapy in [address] [phone] Melinda Isaac APRN, C.N.P. [address] [place] [phone] 08/02/2024 12:30 PM [facility] Clinical Communication Virtual Review in [place], [place] 200 [place] [address] 08/03/2024 9:00 AM [facility] Infusion Department of Infusion Therapy in [address] [phone] Melinda Isaac APRN, C.N.P. [address] [place] [phone] 08/04/2024 9:00 AM [facility] Infusion Department of Infusion Therapy in [address] [phone] Melinda Isaac APRN, C.N.P. [address] [place] [phone] 08/05/2024 8:45 AM [facility] Appointment Department of Radiology, [facility], in [place], [place] [address] [place] [phone] Kayleigh Small M.D. [address] [place] [phone] 08/05/2024 9:00 AM [facility] Infusion Department of Infusion Therapy in [address] [phone] Melinda Isaac APRN, C.N.P. [address] [place] [phone] 08/05/2024 11:00 AM [facility] Office Visit Section of Infectious Diseases in [place], [place] [address] [place] [phone] Kayleigh Small M.D. [address] [place] [phone] 08/06/2024 9:00 AM [facility] Infusion Department of Infusion Therapy in [address] [phone] Melinda Isaac APRN, C.N.P. [address] [place] [phone] 08/07/2024 9:00 AM [facility] Infusion Department of Infusion Therapy in [address] [phone] Melinda Isaac APRN, C.N.P. [address] [place] [phone] 08/08/2024 9:00 AM [facility] Infusion Department of Infusion Therapy in [address] [phone] Melinda Isaac APRN, C.N.P. [address] [place] [phone] 08/09/2024 9:00 AM [facility] Infusion Department of Infusion Therapy in [address] [address] Melinda Isaac APRN, C.N.P. [address] [place] [phone] 08/10/2024 9:00 AM [facility] Infusion Department of Infusion Therapy in [address] [address] Melinda Isaac APRN, C.N.P. [address] [place] [phone] 08/11/2024 9:00 AM [facility] Infusion Department of Infusion Therapy in [address] [phone] Melinda Isaac APRN, C.N.P. [address] [place] [phone] 08/12/2024 9:00 AM [facility] Infusion Department of Infusion Therapy in [address] [phone] Melinda Isaac APRN, C.N.P. [address] [place] [phone] 08/13/2024 8:30 AM [facility] Infusion Department of Infusion Therapy in [address] [phone] Melinda Isaac APRN, C.N.P. [address] [place] [phone] 08/14/2024 9:00 AM [facility] Infusion Department of Infusion Therapy in [address] [phone] Melinda Isaac APRN, C.N.P. [address] [place] [phone] 08/15/2024 9:00 AM [facility] Infusion Department of Infusion Therapy in [address] [phone] Melinda Isaac APRN, C.N.P. [address] [place] [phone] 08/16/2024 9:00 AM [facility] Infusion Department of Infusion Therapy in [address] [phone] Melinda Isaac APRN, C.N.P. [address] [place] [phone] 08/17/2024 9:00 AM [facility] Infusion Department of Infusion Therapy in [address] [phone] Melinda Isaac APRN, C.N.P. [address] [place] [phone] 08/18/2024 9:00 AM [facility] Infusion Department of Infusion Therapy in [address] [phone] Melinda Isaac APRN, C.N.P. [address] [place] [phone] documented as of this encounter Procedures Procedure Name Priority Date/Time Associated Diagnosis Comments CT CHEST ANGIOGRAM AND PULMONARY ARTERIES WITH IV CONTRAST RAD - Semiurgent (Fast; most ED patients; some inpatients) 07/26/2024 10:37 AM [facility] DX CHEST AP OR PA AND LATERAL 2 VIEWS RAD - Semiurgent (Fast; most ED patients; some inpatients) 07/26/2024 9:54 AM [facility] SEDIMENTATION RATE, B STAT 07/26/2024 9:44 AM [facility] CBC WITH DIFFERENTIAL, B STAT 07/26/2024 9:44 AM [facility] C-REACTIVE PROTEIN (CRP), S/P STAT 07/26/2024 9:44 AM [facility] BASIC METABOLIC PANEL, S/P STAT 07/26/2024 9:44 AM [facility] documented in this encounter Results * CT Chest Angiogram and Pulmonary Arteries with IV Contrast (07/26/2024 10:37 AM [facility]) Anatomical Region Laterality Modality Chest, Cardiovascular RST LO S, Thoracic ARZ LOS, Thoracic FLA LOS N/A Computed Tomography 07/26/2024 10:4 2 AM [facility] Impressions 07/26/2024 10:46 AM [facility] 1. Negative for acute pulmonary embolism. 2. Similar findings of multifocal pneumonia. 3. Stable small left pleural effusion. Narrative 07/26/2024 10:46 AM [facility] EXAM: CT CHEST ANGIOGRAM AND PULMONARY ARTERIES [...] pneumonia. 3. Stable small left pleural effusion. us Dilcia Valero APRN, C.N.P. IMG CT PROCEDURE S Final Result * DX Chest AP or PA and Lateral 2 Views (07/26/2024 9:54 AM [facility]) Anatomical Region Laterality Modality Chest, Thoracic RST LOS, Tho racic ARZ LOS, Thoracic FLA LOS N/A Digital Radiography Impressions 07/26/2024 9:59 AM [facility] Right upper extremity PICC with tip projected over the right atrium. Small left pleural effusion, similar to prior. Scattered linear scarring/atelectasis. The groundglass and tree-in-bud opacities seen on prior CT are not well seen within the limits of radiography. July 24, 2024 and July 19, 2024 comparisons. Narrative 07/26/2024 9:59 AM [facility] EXAM: DX CHEST AP OR PA AND [...] 24, 2024 and July 19, 2024 comparisons. us Dilcia Valero APRN, C.N.P. IMG DIAGNOSTIC I MAGING PROCEDURES Final Result * Basic Metabolic Panel (07/26/2024 9:44 AM [facility]) Potassium, P 3.9 3.6 - 5.2 mmol/L 07/26/2024 10:15 AM [facility] CNFL Sodium, P 141 135 - 145 mmol/L 07/26/2024 10:15 AM [facility] CNFL Chloride, P 105 98 - 107 mmol/L 07/26/2024 10:15 AM [facility] CNFL Bicarbonate, P 25 22 - 29 mmol/L 07/26/2024 10:15 AM [facility] CNFL Anion Gap, P 11 7 - 15 07/26/2024 10:15 AM [facility] CNFL BUN (Blood Urea Nitrogen), P 10 6 - 21 mg/dL 07/26/2024 10:15 AM [facility] CNFL Creatinine 0.62 0.59 - 1.04 mg/dL 07/26/2024 10:15 AM [facility] CNFL Estimated GFR (eGFR) >90 >=60 mL/min/BSA 07/26/2024 10:15 AM [facility] CNFL Comment: Estimated GFR calculated using the 2020 CKD_EPI creatinine equation. Calcium, Total, P 8.8 8.6 - 10.0 mg/dL 07/26/2024 10:15 AM [facility] CNFL Glucose, P 122 70 - 140 mg/dL 07/26/2024 10:15 AM [facility] CNFL Blood (Blood, Venous) 07/26/2024 9:44 AM [facility] 07/26/2024 9:48 AM [facility] us Dilcia Valero APRN, C.N.P. LAB BLOOD ADD-ON Final Result [facility] [address] [place] [phone], [facility] CNFL [facility] in [address] [address] * (ABNORMAL) Sedimentation Rate (07/26/2024 9:44 AM [facility]) Sedimentation Rate, B 102(H) 0 - 29 mm/1 h 07/26/2024 1:33 PM [facility] RDWG Blood (Blood, Venous) 07/26/2024 9:44 AM [facility] 07/26/2024 12:52 PM [facility] Dilcia Valero APRN, C.N.P. LAB BLOOD ADD-ON Final Result Performing Organization Address [facility]/ZIP Co de Phone Number [facility] [address] [place] [phone], [facility] RDWG [facility] in [address] [phone] * (ABNORMAL) CRP (C-Reactive Protein) (07/26/2024 9:44 AM [facility]) C-Reactive Protein (CRP), P 43.3(H) <5.0 mg/L 07/26/2024 10:15 AM [facility] CNNY Blood (Blood, Venous) 07/26/2024 9:44 AM [facility] 07/26/2024 9:48 AM [facility] Dilcia Valero APRN, C.N.P. LAB BLOOD ADD-ON Final Result Performing Organization Address [facility]/ZIP Co de Phone Number [facility] [address] [place] [phone], [facility] CNFL [facility] in [address] [address] * (ABNORMAL) CBC with Differential, Blood (07/26/2024 9:44 AM [facility]) Hemoglobin 9.8(L) 11.6 - 15.0 g/dL 07/26/2024 9:55 AM [facility] CNFL Hematocrit 31.4(L) 35.5 - 44.9 % 07/26/2024 9:55 AM [facility] CNFL Erythrocytes 3.55(L) 3.92 - 5.13 x10(12)/L 07/26/2024 9:55 AM [facility] CNFL MCV 88.5 78.2 - 97.9 fL 07/26/2024 9:55 AM [facility] CNFL RBC Distrib Width 15.4 12.2 - 16.1 % 07/26/2024 9:55 AM [facility] CNFL Platelet Count 792(H) 157 - 371 x10(9)/L 07/26/2024 9:55 AM [facility] CNFL Leukocytes 11.1(H) 3.4 - 9.6 x10(9)/L 07/26/2024 9:55 AM [facility] CNFL Neutrophils 8.16(H) 1.56 - 6.45 x10(9)/L 07/26/2024 9:55 AM [facility] CNFL Lymphocytes 1.74 0.95 - 3.07 x10(9)/L 07/26/2024 9:55 AM [facility] CNFL Monocytes 0.79 0.26 - 0.81 x10(9)/L 07/26/2024 9:55 AM [facility] CNFL Eosinophils 0.36 0.03 - 0.48 x10(9)/L 07/26/2024 9:55 AM [facility] CNFL Basophils 0.07 0.01 - 0.08 x10(9)/L 07/26/2024 9:55 AM [facility] CNFL Blood (Blood, Venous) 07/26/2024 9:44 AM [facility] 07/26/2024 9:48 AM [facility] us Dilcia Valero APRN, C.N.P. LAB BLOOD ADD-ON Final Result [facility] [address] [place] [address], [facility] CNFL [facility] in [address] [address] documented in this encounter Visit Diagnoses Diagnosis Pain Chest Wall- Primary documented in this encounter Administered Medications Inactive Administered Medications - up to 3 most recent administrations Medication Order MAR Action Action Date Dose Rate Site HYDROmorphone injection 0.5 mg (Dilaudid) 0.5 mg, intravenous, Every 30 min PRN, severe pain or score 7-10 of 10, Starting on Mon07/26/24 at 1129, For 3 doses Given 07/26/2024 1:48 PM [facility] 0.5 mg Given 07/26/2024 11:39 AM [facility] 0.5 mg HYDROmorphone injection 1 mg (Dilaudid) 1 mg, intravenous, Once, On Mon07/26/24 at 0933, For 1 dose Given 07/26/2024 9:38 AM [facility] 1 mg iopromide 370 mg iodine/mL injection 100 mL (Ultravist) 100 mL, intravenous, Once in imaging, contrast, Starting on Mon07/26/24 at 1021, For 1 dose Given 07/26/2024 10:35 AM [facility] 100 mL ondansetron (PF) injection 4 mg (Zofran) 4 mg, intravenous, Once, On Mon07/26/24 at 0937, For 1 dose Given 07/26/2024 9:38 AM [facility] 4 mg sodium chloride 0.9 % flush 80 mL 80 mL, intravenous, Once in imaging, line care, Starting on Mon07/26/24 at 1021, For 1 dose Given 07/26/2024 10:35 AM [facility] 80 mL sodium chloride 0.9 % injection 10 mL 10 mL, intravenous, As needed, line care, Starting on Mon07/26/24 at 1021 Given 07/26/2024 10:35 AM [facility] 10 mL Given 07/26/2024 10:34 AM [facility] 10 mL documented in this encounter Active and Recently Administered Medications Times are shown in [facility]. Scheduled Medication Order 07/24/2024 07/25/2024 07/26/2024 HYDROmorphone injection 1 mg (Dilaudid) (COMPLETED) 1 mg, intravenous, Once, On Mon07/26/24 at 0933, For 1 dose 0938 (Given - Provid er: Alejandra Pride, R.N.) ondansetron (PF) injection 4 mg (Zofran) (COMPLETED) 4 mg, intravenous, Once, On Mon07/26/24 at 0937, For 1 dose 0938 (Given - Provid er: Alejandra Pride R.N.) PRN Medication Order 07/24/2024 07/25/2024 07/26/2024 HYDROmorphone injection 0.5 mg (Dilaudid) 0.5 mg, intravenous, Every 30 min PRN, severe pain or score 7-10 of 10, Starting on Mon07/26/24 at 1129, For 3 doses 1139 (Given - Provid er: Alejandra Pride RAlexi.)1348 (Given - Provider: Alejandra Pride R.N.) iopromide 370 mg iodine/mL injection 100 mL (Ultravist) (COMPLETED) 100 mL, intravenous, Once in imaging, contrast, Starting on Mon07/26/24 at 1021, For 1 dose 1035 (Given - Provid er: Senait Ruiz, R.T.(R)(CT), R.T.(R)) sodium chloride 0.9 % flush 80 mL (COMPLETED) 80 mL, intravenous, Once in imaging, line care, Starting on Mon07/26/24 at 1021, For 1 dose 1035 (Given - Provid er: Senait Ruiz, R.T.(R)(CT), R.T.(R)) sodium chloride 0.9 % injection 10 mL 10 mL, intravenous, As needed, line care, Starting on Mon07/26/24 at 1021 1034 (Given - Provid er: Senait Ruiz, R.T.(R)(CT), R.T.(R))1035 (Given - Provider: Senait Ruiz, R.T.(R)(CT), R.T.(R)) documented in this encounter Additional Health Concerns Assessment Noted Time PHQ-9 Depression Total Score: 22 025 7:19 PM [facility] documented as of this encounter Care Teams Political Science Research Assistant Relationship Specialty Start Date End Date Prudence Mena MPAS, P.A.-C. [address] [place] [address] [place] [address] PCP - General Internal Medicine 02/08/24 documented as of this encounter
--- OUTSIDE RECORDS SUMMARY | 2024-07-28 21:17 | XMS_ITS | Encounter Summary ---
Author Organization [facility] Address [address] [place] [address] Care Team Providers Care Import Export Agent Name Role Phone Prudence Mena P.A.-C. Primary Care Pro vider Encounter Details Date Type Department Care Team (Late st Contact Info) Description 07/26/2024 Results Follow-Up [facility] [address] [place] [phone] Lindsay Mejias, R.N. Social History Tobacco Use Types Packs/Day Years Used Date Smoking Tobacco: Former Cigarettes 1.5 0.1 S tarted: 06/21/2024 Passive Smoke Exposure: Past Smokeless Tobacco: Never Alcohol Use Standard Drinks/Week Comments Yes 0 (1 standard drink = 0.6 oz pur e alcohol) socially [facility] Utilities Answer Date Recorded In the past 12 months has [facility] [employer], gas, oil, or water [employer] threatened to shut off services in your [...] Never 07/27/2022 How often do you attend worship or synagogue serv ices? Never 07/27/2022 Do you belong to any clubs o r organizations such as worship groups, unions, fraternal or athletic groups, or [...] Score 6 07/10/2024 [facility] - [...] st Contact Info) Description 07/29/2024 10:00 AM PROGRESS CLERK Infusion Department of Infusion Therapy in [address] [phone] Melinda Isaac, FRED, C.N.P. [address] [place] [phone] 07/29/2024 2:20 PM PROGRESS CLERK Office Visit Department of Community Internal Medicine in [place], [place] [address] [facility] [phone] Prudence Mena, LATONIAS, P.A.-C. 300 [place] [phone] 07/30/2024 9:00 AM PROGRESS CLERK Infusion Department of Infusion Therapy in [address] [address] Melinda Isaac APRN, C.N.P. [address] [place] [phone] 07/31/2024 8:00 AM PROGRESS CLERK Infusion Department of Infusion Therapy in [address] [address] Melinda Isaac APRN, C.N.P. [address] [place] [phone] 08/01/2024 7:00 AM PROGRESS CLERK Infusion Department of Infusion Therapy in [address] [address] Melinda Isaac APRN, C.N.P. [address] [place] [phone] 08/02/2024 9:00 AM PROGRESS CLERK Infusion Department of Infusion Therapy in [address] [address] Melinda Isaac APRN, C.N.P. [address] [place] [phone] 08/02/2024 12:30 PM PROGRESS CLERK Clinical Communication Virtual Review in [place], [place] 200 [place] [phone] 08/03/2024 9:00 AM PROGRESS CLERK Infusion Department of Infusion Therapy in [address] [address] Melinda Isaac APRN, C.N.P. [address] [place] [phone] 08/04/2024 9:00 AM PROGRESS CLERK Infusion Department of Infusion Therapy in [address] [address] Melinda Isaac APRN, C.N.P. [address] [place] [phone] 08/05/2024 8:45 AM PROGRESS CLERK Appointment Department of Radiology, [facility], in [place], [place] [address] [place] [phone] Kayleigh Small M.D. [address] [place] [phone] 08/05/2024 9:00 AM PROGRESS CLERK Infusion Department of Infusion Therapy in [address] [address] Melinda Isaac APRN, C.N.P. [address] [place] [phone] 08/05/2024 11:00 AM PROGRESS CLERK Office Visit Section of Infectious Diseases in [place], [place] [address] [place] [phone] Kayleigh Small M.D. [address] [place] [phone] 08/06/2024 9:00 AM PROGRESS CLERK Infusion Department of Infusion Therapy in [address] [address] Melinda Isaac APRN, C.N.P. [address] [place] [phone] 08/07/2024 9:00 AM PROGRESS CLERK Infusion Department of Infusion Therapy in [address] [address] Melinda Isaac APRN, C.N.P. [address] [place] [phone] 08/08/2024 9:00 AM PROGRESS CLERK Infusion Department of Infusion Therapy in [address] [address] Melinda Isaac APRN, C.N.P. [address] [place] [phone] 08/09/2024 9:00 AM PROGRESS CLERK Infusion Department of Infusion Therapy in [address] [address] Melinda sIaac APRN, C.N.P. [address] [place] [phone] 08/10/2024 9:00 AM PROGRESS CLERK Infusion Department of Infusion Therapy in [address] [phone] Melinda Isaac APRN, C.N.P. [address] [place] [phone] 08/11/2024 9:00 AM PROGRESS CLERK Infusion Department of Infusion Therapy in [address] [address] Melinda Isaac APRN, C.N.P. [address] [place] [phone] 08/12/2024 9:00 AM PROGRESS CLERK Infusion Department of Infusion Therapy in [address] [address] Melinda Isaac APRN, C.N.P. [address] [place] [phone] 08/13/2024 8:30 AM PROGRESS CLERK Infusion Department of Infusion Therapy in [address] [address] Melinda Isaac APRN, C.N.P. [address] [place] [phone] 08/14/2024 9:00 AM PROGRESS CLERK Infusion Department of Infusion Therapy in [address] [address] Melinda Isaac APRN, C.N.P. [address] [place] [phone] 08/15/2024 9:00 AM PROGRESS CLERK Infusion Department of Infusion Therapy in [address] [address] Melinda Isaac APRN, C.N.P. [address] [place] [phone] 08/16/2024 9:00 AM PROGRESS CLERK Infusion Department of Infusion Therapy in [address] [address] Melinda Isaac APRN, C.N.P. [address] [place] [phone] 08/17/2024 9:00 AM PROGRESS CLERK Infusion Department of Infusion Therapy in [address] [address] Melinda Isaac APRN, C.N.P. [address] [place] [phone] 08/18/2024 9:00 AM PROGRESS CLERK Infusion Department of Infusion Therapy in [address] [phone] Melinda Isaac APRN, C.N.P. [address] [place] [phone] documented as of this encounter Visit Diagnoses Not on filedocumented in this encounter Additional Health Concerns Assessment Noted Time PHQ-9 Depression Total Score: 22 025 7:19 PM PROGRESS CLERK documented as of this encounter Care Teams Import Export Agent Relationship Specialty Start Date End Date Prudence Mena MPAS, P.A.-C. [address] [place] [phone] PCP - General Internal Medicine 02/08/24 documented as of this encounter
[2024-07-28 21:22] VITALS: BP 115/65; PULSE 95; RESP 18; TEMP 36.8; O2SAT 96; O2SAT 97; BMI 37.8
--- NOTE | 2024-07-28 22:23 | ED.GENADULT ---
HPI - General Adult General Date Seen: 07/28/24 Chief complaint: Unspecified Complaint, Adult Stated complaint: post op pain surgical site Time Seen by Provider: 07/28/24 21:42 History of Present Illness HPI narrative: 39-year-old female with a past medical history of asthma, recent lung infection (left-sided pneumonia) with parapneumonic effusion/empyema. She had been hospitalized at [facility] and had placement of 2 chest tubes for her empyema. Chest tubes were taken out when she was discharged last Monday (9 days ago). She was discharged with a PICC line and is getting daily IV antibiotic infusions. She was also given a prescription for oxycodone for her postoperative chest tube pain. She ran out of her oxycodone 3 days ago on Monday and was seen in the ER in [facility]. She reports that at the ER there she had a workup to check for complications. She had a repeat CT scan and lab workup. That was reassuring. She was given a refill for oxycodone through the [place] [facility] but ran out of that today. She has been trying to get a hold of her surgeons for [facility], but they are not answering her phone calls this weekend. She has an appointment to see her primary care provider tomorrow on Monday at 2:00 p.m. but came here to the ER tonshyanne requesting a short-term refill of oxycodone to manage for overnight until she can see her doctor tomorrow She has been receiving her doses of IV antibiotics. She has not had any fever. Breathing is normal. She notes that the 2 chest tube sites on her left anterolateral chest wall are still open. The front 1 is draining a small amount of clear fluid. She wants me to look at them to make sure that not infected but they have not been increasingly red Related Data Home Medications ?Medication ?Instructions ?Recorded ?Confirmed albuterol sulfate 2.5 mg/3 mL 2.5 mg inhalation Q4H PRN wheezing 08/17/23 07/13/24 (0.083 %) solution for nebulization albuterol sulfate 90 mcg/actuation 2 puff inhalation Q4H PRN wheezing 08/17/23 06/30/24 aerosol inhaler (Ventolin HFA) bupropion HCl 150 mg 24 hr tablet, 150 mg PO QAM 08/17/23 07/13/24 extended release bupropion HCl 300 mg 24 hr tablet, 300 mg PO QAM 08/17/23 07/13/24 extended release cholecalciferol (vitamin D3) 50 50 mcg PO DAILY 08/17/23 07/13/24 mcg (2,000 unit) capsule elagolix 150 mg tablet (Orilissa) 150 mg PO DAILY 08/17/23 07/13/24 fluticasone propionate 115 2 puff inhalation Q12H 08/17/23 07/13/24 mcg-salmeterol 21 mcg/actuation HFA inhaler lisinopril 10 mg tablet 10 mg PO DAILY 08/17/23 07/13/24 lorazepam 0.5 mg tablet 0.5 mg PO DAILY PRN anxiety 08/17/23 07/13/24 pregabalin 200 mg capsule 200 mg PO TID 08/17/23 07/13/24 trazodone 50 mg tablet 50 - 200 mg PO HS PRN insomnia 08/17/23 07/13/24 azithromycin 250 mg tablet 250 mg PO DAILY 06/30/24 07/13/24 cariprazine 4.5 mg capsule 4.5 mg PO DAILY 06/30/24 07/13/24 (Vraylar) dextroamphetamine sulfate 15 mg 15 mg PO DAILY 06/30/24 07/13/24 capsule,extended release dextroamphetamine-amphetamine 10 1 tab PO DAILY@1200 06/30/24 07/13/24 mg tablet duloxetine 60 mg capsule,delayed 60 mg PO DAILY 06/30/24 07/13/24 release ipratropium 0.5 mg-albuterol 3 mg 3 ml inhalation Q4H PRN 06/30/24 07/13/24 (2.5 mg base)/3 mL nebulization soln Previous Rx's ?Medication ?Instructions ?Recorded guaifenesin 600 mg tablet, 1,200 mg (2 x 600 mg) PO BID #30 07/04/24 extended release 12 hr (Mucinex) tabs Allergies Allergy/AdvReac Type Severity Reaction Status Date / Time Blood-Group Specific Allergy Unknown Uncoded 07/28/24 21:27 Substance PFSH [facility] Medical History Intervertebral disc disorder with radiculopathy of lumbar region ?M51.16 - Intervertebral disc disorders with radiculopathy, lumbar region (ICD-10) Low back pain ?M54.50 - Low back pain, unspecified (ICD-10) Major depressive disorder ?F32.9 - Major depressive disorder, single episode, unspecified (ICD-10) Anxiety ?F41.9 - Anxiety disorder, unspecified (ICD-10) Herpes zoster ?B02.9 - Zoster without complications (ICD-10) Iron deficiency anemia ?D50.9 - Iron deficiency anemia, unspecified (ICD-10) Hypertension ?I10 - Essential (primary) hypertension (ICD-10) Surgical History History of hysterectomy ?Z90.710 - Acquired absence of both cervix and uterus (ICD-10) Social History What is your current living situation?: I presently have a place to live Problems where you live: no known problems Problems where you live details: N/A In the past 12 months, utilities in danger of being shut off: no In past 12 months, lack of transportation kept you from medical appts, meetings, work, or getting things needed for daily living: no In the past 12 mos, have been you worried that your food would run out before you had money to buy more?: never true In the past 12 mos, the food you bought just didn't last and you didn't have money to buy more?: never true Highest level of school completed/degree received: high school graduate Smoking Status: Former smoker What tobacco products do you use: cigarettes Smoking quit date/years: <= 15 years ago Do you use any of these nicotine containing products: None Nicotine containing products detail: 2 weeks Second hand tobacco smoke exposure: No How often do you have a drink containing alcohol: monthly or less How often do you have six or more drinks on one occasion: Never AUDIT-C Alcohol total score: 1 Non-prescribed substance use: denies use Caffeine: Yes (Mtn Dew 1-2 daily) How often does anyone, including family, friends and others, physically hurt you: never How often does anyone, including family, friends and others, insult or talk down to you: never How often does anyone, including family, friends and others, threaten you with harm: never How often does anyone, including family, friends and others, scream or curse at you: never service: No Exam Narrative: Exam Narrative: Constitutional: Appears well-developed and well-nourished. Alert. Conversant. Non toxic. HENT: Head: Atraumatic. Nose: Nose normal. Mouth/Throat: Oral mucosa is clear and moist. no trismus. Pharynx normal. Tonsils symmetric. No tonsillar enlargement, erythema, or exudate. Eyes: Conjunctivae normal. EOM normal. Pupils equal, round, and reactive to light. No scleral icterus. Neck: Normal range of motion. Neck supple. No tracheal deviation present. Cardiovascular: Normal rate, regular rhythm. No gallop. No friction rub. No murmur heard. Symmetric radial artery pulses Pulmonary/Chest: Effort normal. No stridor. No respiratory distress. No wheezes. No rales. No rhonchi . She has 2 healing chest tube incision sites on her left anterolateral chest wall below her left breast. The anterior incision is approximately 1.5 cm in length. There is no surrounding erythema. There is some healing granulation tissue in the wound. There is a central non healed area that is roughly 1 mm x 5 mm in size. From this there is draining a small amount of clear serous fluid. No evidence that for purulent drainage no sign that this tracks all the way into her pleural cavity. The posterior incision is also 1.5 cm in length. It is largely covered and sealed by granulation tissue. There is a small submillimeter rim of erythema around the rim of the wound. No purulent drainage. No other erythema. No fluctuance. Abdominal: Soft. No distension. No mass. No tenderness. No rebound. No guarding. Musculoskeletal: RUE: Normal range of motion. No tenderness. No deformity LUE: Normal range of motion. No tenderness. No deformity RLE: Normal range of motion. No edema. No tenderness. No deformity LLE: Normal range of motion. No edema. No tenderness. No deformity Neurological: Alert and oriented to person, place, and time. Normal strength. CN II-VII intact. No sensory deficit. GCS eye subscore is 4. GCS verbal subscore is 5. GCS motor subscore is 6. Normal coordination Skin: Skin is warm and dry. No rash noted. No pallor. Normal capillary refill. Psychiatric: Normal mood. Normal affect. Const: Vital Signs, click to edit/add: Vital Signs - 24 hr 07/28/24 21:22 07/28/24 21:22 07/28/24 22:45 Temperature 98.2 F 98.2 F Pulse Rate [Right Pulse Oximeter] 95 84 Respiratory Rate 18 18 Respiratory Rate [ Left Chest/Side] 18 Blood Pressure [Le ft Upper Arm] 115/65 120/74 Pulse Oximetry 96 96 Oxygen Delivery Me thod Room Air Room Air 07/28/24 22:46 Temperature 98.2 F Pulse Rate [Right Pulse Oximeter] 84 Respiratory Rate 18 Respiratory Rate [ Left Chest/Side] Blood Pressure [Le ft Upper Arm] 120/74 Pulse Oximetry Oxygen Delivery Me thod Course Vital Signs Vital signs: Initial Vital Signs Temperature 98.2 F 07/28/24 21:22 Temperature Source Temporal Artery Scan 07/28/24 21:22 Pulse Rate 95 07/28/24 21:22 Respiratory Rate 18 07/28/24 21:22 Blood Pressure 115/65 07/28/24 21:22 Blood Pressure Mean 81 07/28/24 21:22 Blood Pressure Position Sitting 07/28/24 21:22 Pulse Oximetry 96 07/28/24 21:22 Oxygen Delivery Method Room Air 07/28/24 21:22 Vital Signs Temperature 98.2 F 07/28/24 21:22 Pulse Rate 95 07/28/24 21:22 Respiratory Rate 18 07/28/24 21:22 Blood Pressure 115/65 07/28/24 21:22 Pulse Oximetry 96 07/28/24 21:22 Oxygen Delivery Method Room Air 07/28/24 21:22 Temperature 98.2 F 07/28/24 22:46 Pulse Rate 84 07/28/24 22:46 Respiratory Rate 18 07/28/24 22:46 Blood Pressure 120/74 07/28/24 22:46 Pulse Oximetry 96 07/28/24 22:45 Oxygen Delivery Method Room Air 07/28/24 22:45 Medical Decision Making MDM Narrative Medical decision making narrative: 39-year-old female with a complex recent past medical history including pneumonia complicated by development of effusion requiring chest tubes being placed by the thoracic surgery team at [facility]. She was discharged over a week ago with the chest tubes removed and is now on PICC line antibiotics. She still having pain on her left hemithorax. She had actually been seen 2 nights ago in the ER in [place] and had a workup including repeat labs and chest CT that patient reports was reassuring. She is out of her oxycodone tonight and cannot get a hold of her surgeons or her primary care provider binh. She has an appointment to see her PCP tomorrow. She came to her ER tonight asking for refill of pain medications. I agreed to give her a short 1 time refill for oxycodone 5 mg tabs #8. Instymeds for oxycodone provided for 8 tablets. Opiate precautions reviewed. I discussed with the patient that we can not do of further pain meds refills through the ER. Opiate precautions reviewed At this point there is any evidence for any new acute infection or complication of her healing empyema. I do not think she needs repeat CT imaging, repeat labs workup, or further testing here in the ER tonight. Discharge Plan Discharge Clinical Impression: Post-operative pain Patient Disposition: Home, Self-Care Condition: Stable Instructions: Opioid Safety (ED) Additional Instructions: As we discussed right now the skin incisions from her chest tube look okay. They appear to be healing and not infected. I will give you a short prescription for oxycodone to manage her pain for overnight. It is very important for you to follow-up with your regular doctor tomorrow and with her surgeons at [facility] for your ongoing pain medication needs. We cannot give further refills for opiates through the ER for this problem. Please continue on your IV antibiotics in your other medications. Monitor your breathing in your cough carefully. If you have worsening trouble breathing, new fevers, or other concerns, please come back to the ER or see her doctor right away. Prescriptions: No Action albuterol sulfate 2.5 mg /3 mL (0.083 %) solution for nebulization 2.5 mg inhalation Q4H PRN (Reason: wheezing) trazodone 50 mg tablet 50 - 200 mg PO HS PRN (Reason: insomnia) lorazepam 0.5 mg tablet 0.5 mg PO DAILY PRN (Reason: anxiety) lisinopril 10 mg tablet 10 mg PO DAILY albuterol sulfate [Ventolin HFA] 90 mcg/actuation HFA aerosol inhaler 2 puff inhalation Q4H PRN (Reason: wheezing) bupropion HCl 300 mg tablet extended release 24 hr 300 mg PO QAM Patient Comments: TOTAL DOSE = 450MG bupropion HCl 150 mg tablet extended release 24 hr 150 mg PO QAM Patient Comments: TOTAL DOSE = 450MG pregabalin 200 mg capsule 200 mg PO TID fluticasone propion-salmeterol 115-21 mcg/actuation HFA aerosol inhaler 2 puff INHALATION Q12H cholecalciferol (vitamin D3) 50 mcg (2,000 unit) capsule 50 mcg PO DAILY Orilissa 150 mg tablet 150 mg PO DAILY azithromycin 250 mg tablet 250 mg PO DAILY dextroamphetamine sulfate 15 mg capsule, extended release 15 mg PO DAILY dextroamphetamine-amphetamine 10 mg tablet 1 tab PO DAILY@1200 Vraylar 4.5 mg capsule 4.5 mg PO DAILY duloxetine 60 mg capsule,delayed release(DR/EC) 60 mg PO DAILY ipratropium-albuterol 0.5 mg-3 mg(2.5 mg base)/3 mL solution for nebulization 3 ml inhalation Q4H PRN guaifenesin [Mucinex] 600 mg Tablet Extended Release 12hr 1,200 mg PO BID Qty: 30 0RF Follow Up/Referrals: Prudence Mena PA-C [Primary Care Provider] - Stand Alone Forms: [employer] Info Instructions
[2024-07-28 22:45] VITALS: BP 120/74; PULSE 84; RESP 18; TEMP 36.8; O2SAT 96
[2024-07-28 22:46] VITALS: BP 120/74; PULSE 84; RESP 18; TEMP 36.8
--- OUTSIDE RECORDS SUMMARY | 2024-07-28 22:46 | XMS_ITS | Clinical Summary ---
Author Organization [facility] Address [place], [place] [address] Care Team Providers Care School Patrol Name Role Phone Kevin Berrios MD Unavailable [phone] Claudia Morillo MD Primary Care Provider Allergies [...] Overview (07/04/2017): 06/13/17 Signed .Kristen Landeros DNP, THREAD MACHINE OPERATOR, RESIDENTIAL INSURANCE INSPECTOR/psyciatry/hc Acute postoperative pain Acute postoperative abdominal pain [...] ve Non-Reacti ve 11/11/2020 8:33 PM CDT [facility] Comment:HIV-1 p24 and HIV-1/ HIV-2 Ab not detected. Blood BLOOD SPECIMEN / Unknown Butterfly / Unknown 11/11/2020 1:29 PM CDT 11/11/2020 1:29 PM CDT us Claudia Morillo MD SEND OUTS Final Resul t [facility] [address] [place] [id number], * ANTI HCV (03/20/2019 2:40 PM CDT) HEPATITIS C ANTIBODY Non-React salomón Non-React salomón 03/21/2019 11:42 PM CDT [facility] Comment:Antibodies to HCV no t detected; does not exclude the possibility of exposure to HCV. Blood BLOOD SPECIMEN / Unknown Venipuncture / Unknown 03/20/2019 2:40 PM CDT 03/20/2019 2:40 PM CDT us Claudia Morillo MD SEND OUTS Final Resul t Performing Organization Address City/[facility] [address]/ZIP Co de Phone Number [facility] [address] [place] [address], from Last 3 Months or Most Recently Relevant to Health Maintenance Insurance [facility] Advance Directives * Full Code (Latest Code [...] 3:10 PM 04/16/2019 8:58 PM Care Teams School Patrol Relationship Specialty Start Date End Date Claudia Morillo MD [address] [place] [address] PCP - General Family Practice 03/04/22 Kevin Berrios MD Surgery - Urology 02/27/20
--- OUTSIDE RECORDS SUMMARY | 2024-07-28 22:46 | XMS_ITS ---
Author Organization [facility] Address [address] [place] [address] Care Team Providers Care Corset Maker Name Role Phone Prudence Mena P.A.-C. Primary Care Pro vider OPAT/COpAT Program Status:Enrolled (Active) Start date:07/18/2024 Enrollment date:07/20/2024 Related service episodes:Adult OPAT Service Episode (Active) Continued Care and Services Coordination
--- OUTSIDE RECORDS SUMMARY | 2024-07-28 22:46 | XMS_ITS ---
Author Organization [facility] Address [address] [place] [address] Care Team Providers Care Director Sports Name Role Phone Prudence Mena P.A.-C. Primary Care Pro vider Adult OPAT Service Episode Status:Enrolled (Active) Start date:07/18/2024 Enrollment date:07/20/2024 Related program episode:OPAT/COpAT Program (Active) Continued Care and Services Coordination
--- OUTSIDE RECORDS SUMMARY | 2024-07-28 22:48 | XMS_ITS | Encounter Summary ---
Author Organization [facility] Address [address] [place] [address] Care Team Providers Care Care Trainer Name Role Phone Prudence Mnea P.A.-C. Primary Care Pro vider Reason for Referral * Outpatient (Routine) - Closed Specialty Diagnoses / Procedures Referred By Contac t Referred To Contact Diagnoses Pneumonia Procedures DX Chest AP or PA and Lateral 2 Views Prudence Mena MPAS, P.A.-CDmitry [address] [place] [address] Phone: tel: fax: [facility] Referral ID Status Reason Start Date Expiration Date Visits Re quested Visits Authorized [id number] Closed 07/11/2024 07/11/2025 1 1 GE GOODS MARKER Reason for Visit * Reason Comments Post Ed Visit Follow-up [facility] follow up- would like a HGB done also per nurse * Appointment Request (Routine) - Closed Specialty Diagnoses / Procedures Referred By Contac t Referred To Contact Family Medicine Referral ID Status Reason Start Date Expiration Date Visits Re quested Visits Authorized [id number] Closed 06/11/2024 06/11/2025 1 1 Encounter Details Date Type Department Care Team (Late st Contact Info) Description 07/11/2024 10:40 AM GREIGE GOODS MARKER Office Visit Department of Community Internal Medicine in [place], [place] [address] [place] [address] Prudence Mena MPAS P.A.-C. 300 [facility] [place] [phone] Hypokalemia (Primary Dx); Pneumonia; Effusion Pleural; Blood In Stool Social History Tobacco Use Types Packs/Day Years Used Date Smoking Tobacco: Former Cigarettes 1.5 0.1 S tarted: 06/21/2024 Passive Smoke Exposure: Past Smokeless Tobacco: Never Tobacco Cessation:Counseling Given: Not Answered Alcohol Use Standard Drinks/Week Comments Yes 0 (1 standard drink = 0.6 oz pur e alcohol) socially [facility] Utilities Answer Date Recorded In the past 12 months has e electric, gas, oil, or water 1stdibs threatened to shut off services in your [...] Never 07/27/2022 How often do you attend sikh or synagogue serv ices? Never 07/27/2022 Do you belong to any clubs o r organizations such as sikh groups, unions, fraternal or athletic groups, or [...] Answer Date Recorded PHQ-2 Score 6 07/10/2024 [facility] of Occupat ional Health - Occupational Stress [...] Comments Blood Pressure 106/72 07/11/2024 11:00 AM GREIGE GOODS MARKER Pulse 85 07/11/2024 11:00 AM GREIGE GOODS MARKER Temperature 36 C (96.8 F) 07/11/2024 10:32 AM GREIGE GOODS MARKER Respiratory Rate 30 07/11/2024 10:32 AM GREIGE GOODS MARKER Oxygen Saturation 96% 07/11/2024 10:32 AM GREIGE GOODS MARKER Inhaled Oxygen Concentration - - Weight 96.2 kg (212 lb 3.1 oz) 07/11/2024 10:32 AM GREIGE GOODS MARKER Height 163 cm (5' 4.17) 07/11/2024 10:32 AM GREIGE GOODS MARKER Body Mass Index 36.23 07/11/2024 10:32 AM GREIGE GOODS MARKER documented in this encounter Progress Notes * Prudence Mena MPAS, P.A.-C. - 07/11/2024 10:40 AM CST SUBJECTIVE CHIEF COMPLAINT/REASON FOR VISIT Chief Complaint Patient presents with Post Ed Visit Follow-up [facility] follow up- would like a HGB done also per nurse HISTORY OF PRESENT ILLNESS Melinda Kumar is a pleasant 39 y.o. female who presents to the clinic today for post hospital follow-up. 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 Her condition has not improved since discharge [...] time spent: 40 minutes YOUSUF Pathak, P.A.-C. GE GOODS MARKER documented in this encounter Plan of Treatment Upcoming Encounters Date Type Department Care Team (Late st Contact Info) Description 07/29/2024 10:00 AM GREIGE GOODS MARKER Infusion Department of Infusion Therapy in [address] [address] Melinda Isaac APRN, C.N.P. [address] [place] [phone] 07/29/2024 2:20 PM GREIGE GOODS MARKER Office Visit Department of Community Internal Medicine in [address] [phone] Prudence Mena MPAS, P.A.-C. [address] [place] [phone] 07/30/2024 9:00 AM GREIGE GOODS MARKER Infusion Department of Infusion Therapy in [address] [address] Melinda Isaac APRN, C.N.P. [address] [place] [phone] 07/31/2024 8:00 AM GREIGE GOODS MARKER Infusion Department of Infusion Therapy in [address] [address] Melinda Isaac APRN, C.N.P. [address] [place] [phone] 08/01/2024 7:00 AM GREIGE GOODS MARKER Infusion Department of Infusion Therapy in [address] [address] Melinda Isaac APRN, C.N.P. [address] [place] [phone] 08/02/2024 9:00 AM GREIGE GOODS MARKER Infusion Department of Infusion Therapy in [address] [phone] Melinda Isaac APRN, C.N.P. [address] [place] [phone] 08/02/2024 12:30 PM GREIGE GOODS MARKER Clinical Communication Virtual Review in [place], [place] 200 [place] [address] 08/03/2024 9:00 AM GREIGE GOODS MARKER Infusion Department of Infusion Therapy in [address] [phone] Melinda Isaac APRN, C.N.P. [address] [place] [phone] 08/04/2024 9:00 AM GREIGE GOODS MARKER Infusion Department of Infusion Therapy in [address] [phone] Melinda Isaac APRN, C.N.P. [address] [place] [phone] 08/05/2024 8:45 AM GREIGE GOODS MARKER Appointment Department of Radiology, [facility], in [place], [place] [address] [place] [phone] Kayleigh Small M.D. [address] [place] [phone] 08/05/2024 9:00 AM GREIGE GOODS MARKER Infusion Department of Infusion Therapy in [address] [phone] Melinda Isaac APRN, C.N.P. [address] [place] [phone] 08/05/2024 11:00 AM GREIGE GOODS MARKER Office Visit Section of Infectious Diseases in [place], [place] [address] [place] [phone] Kayleigh Small M.D. [address] [place] [phone] 08/06/2024 9:00 AM GREIGE GOODS MARKER Infusion Department of Infusion Therapy in [address] [phone] Melinda Isaac APRN, C.N.P. [address] [place] [phone] 08/07/2024 9:00 AM GREIGE GOODS MARKER Infusion Department of Infusion Therapy in [address] [phone] Melinda Isaac APRN, C.N.P. [address] [place] [phone] 08/08/2024 9:00 AM GREIGE GOODS MARKER Infusion Department of Infusion Therapy in [address] [phone] Melinda Isaac APRN, C.N.P. [address] [place] [phone] 08/09/2024 9:00 AM GREIGE GOODS MARKER Infusion Department of Infusion Therapy in [address] [phone] Melinda Isaac APRN, C.N.P. [address] [place] [phone] 08/10/2024 9:00 AM GREIGE GOODS MARKER Infusion Department of Infusion Therapy in [address] [phone] Melinda Isaac APRN, C.N.P. [address] [place] [phone] 08/11/2024 9:00 AM GREIGE GOODS MARKER Infusion Department of Infusion Therapy in [address] [address] Melinda Isaac APRN, C.N.P. [address] [place] [phone] 08/12/2024 9:00 AM GREIGE GOODS MARKER Infusion Department of Infusion Therapy in [address] [address] Melinda Isaac APRN, C.N.P. [address] [place] [phone] 08/13/2024 8:30 AM GREIGE GOODS MARKER Infusion Department of Infusion Therapy in [address] [phone] Melinda Isaac APRN, C.N.P. [address] [place] [phone] 08/14/2024 9:00 AM GREIGE GOODS MARKER Infusion Department of Infusion Therapy in [address] [address] Melinda Isaac APRN, C.N.P. [address] [place] [phone] 08/15/2024 9:00 AM GREIGE GOODS MARKER Infusion Department of Infusion Therapy in [address] [address] Melinda Isaac APRN, C.N.P. [address] [place] [phone] 08/16/2024 9:00 AM GREIGE GOODS MARKER Infusion Department of Infusion Therapy in [address] [phone] Melinda Isaac APRN, C.N.P. [address] [place] [phone] 08/17/2024 9:00 AM GREIGE GOODS MARKER Infusion Department of Infusion Therapy in [address] [phone] Melinda Isaac APRN, C.N.P. [address] [place] [phone] 08/18/2024 9:00 AM GREIGE GOODS MARKER Infusion Department of Infusion Therapy in [address] [phone] Melinda Isaac APRN, C.N.P. [address] [place] [phone] Scheduled Orders Name Type Priority Associated Diagnoses Orde r Schedule HemoQuant, Feces Lab Routine Blood In Stool Expected: 08/11/2024, Expires: 10/09/2025 documented as of this encounter Results * DX Chest AP or PA and Lateral 2 Views (07/11/2024 11:26 AM GREIGE GOODS MARKER) Anatomical Region Laterality Modality Chest, Thoracic RST LOS, Tho racic ARZ LOS, Thoracic FLA LOS N/A Digital Radiography Impressions 07/11/2024 11:59 AM GREIGE GOODS MARKER No direct comparison available at time of [...] within normal limits. Narrative 07/11/2024 11:59 AM GREIGE GOODS MARKER EXAM: DX CHEST AP OR PA AND [...] (ABNORMAL) Basic Metabolic Panel (07/11/2024 11:17 AM GREIGE GOODS MARKER) Potassium, P 3.6 3.6 - 5.2 mmol/L 07/11/2024 1:43 PM GREIGE GOODS MARKER OWAT Sodium, P 141 135 - 145 mmol/L 07/11/2024 1:43 PM GREIGE GOODS MARKER OWAT Chloride, P 104 98 - 107 mmol/L 07/11/2024 1:43 PM GREIGE GOODS MARKER OWAT Bicarbonate, P 27 22 - 29 mmol/L 07/11/2024 1:43 PM GREIGE GOODS MARKER OWAT Anion Gap, P 10 7 - 15 07/11/2024 1:43 PM GREIGE GOODS MARKER OWAT BUN (Blood Urea Nitrogen), P 18 6 - 21 mg/dL 07/11/2024 1:43 PM GREIGE GOODS MARKER OWAT Creatinine 0.53(L) 0.59 - 1.04 mg/dL 07/11/2024 1:43 PM GREIGE GOODS MARKER OWAT Estimated GFR (eGFR) >90 >=60 mL/min/BSA 07/11/2024 1:43 PM GREIGE GOODS MARKER OWAT Comment: Estimated GFR calculated using the 2020 CKD_EPI creatinine equation. Calcium, Total, P 9.0 8.6 - 10.0 mg/dL 07/11/2024 1:43 PM GREIGE GOODS MARKER OWAT Glucose, P 126 70 - 140 mg/dL 07/11/2024 1:43 PM GREIGE GOODS MARKER OWAT Blood (Blood, Venous) 07/11/2024 11:17 AM GREIGE GOODS MARKER 07/11/2024 12:57 PM GREIGE GOODS MARKER us Prudence TO, P.A.-C. LAB BLOOD ADD-ON Final Result [facility] [address] [place] [address], [facility] OWAT [facility] in [place] [address] [place] [address] * (ABNORMAL) CBC with Differential, Blood (07/11/2024 11:17 AM GREIGE GOODS MARKER) Hemoglobin 10.0(L) 11.6 - 15.0 g/dL 07/11/2024 11:25 AM GREIGE GOODS MARKER FB60 Hematocrit 30.7(L) 35.5 - 44.9 % 07/11/2024 11:25 AM GREIGE GOODS MARKER FB60 Erythrocytes 3.39(L) 3.92 - 5.13 x10(12)/L 07/11/2024 11:25 AM GREIGE GOODS MARKER FB60 MCV 90.6 78.2 - 97.9 fL 07/11/2024 11:25 AM GREIGE GOODS MARKER FB60 RBC Distrib Width 14.9 12.2 - 16.1 % 07/11/2024 11:25 AM GREIGE GOODS MARKER FB60 Platelet Count 678(H) 157 - 371 x10(9)/L 07/11/2024 11:25 AM GREIGE GOODS MARKER FB60 Leukocytes 14.7(H) 3.4 - 9.6 x10(9)/L 07/11/2024 11:25 AM GREIGE GOODS MARKER FB60 Neutrophils 11.68(H) 1.56 - 6.45 x10(9)/L 07/11/2024 11:25 AM GREIGE GOODS MARKER FB60 Lymphocytes 1.65 0.95 - 3.07 x10(9)/L 07/11/2024 11:25 AM GREIGE GOODS MARKER FB60 Monocytes 1.28(H) 0.26 - 0.81 x10(9)/L 07/11/2024 11:25 AM GREIGE GOODS MARKER FB60 Eosinophils 0.06 0.03 - 0.48 x10(9)/L 07/11/2024 11:25 AM GREIGE GOODS MARKER FB60 Basophils <0.04 0.01 - 0.08 x10(9)/L 07/11/2024 11:25 AM GREIGE GOODS MARKER FB60 Blood (Blood, Venous) 07/11/2024 11:17 AM GREIGE GOODS MARKER 07/11/2024 11:17 AM GREIGE GOODS MARKER us Prudence TO, P.A.-C. LAB BLOOD ADD-ON Final Result [facility] [address] [place] [address], [facility] FB60 [facility] in [place] [address] [place] [address] documented in this encounter Visit Diagnoses Diagnosis Hypokalemia- Primary Pneumonia Effusion Pleural Blood In Stool Pneumonia documented in this encounter Additional Health Concerns Assessment Noted Time PHQ-9 Depression Total Score: 22 025 7:19 PM GREIGE GOODS MARKER documented as of this encounter Care Teams Care Trainer Relationship Specialty Start Date End Date Prudence Mena MPAS, P.A.-C. [address] [place] [address] PCP - General Internal Medicine 02/08/24 documented as of this encounter
--- OUTSIDE RECORDS SUMMARY | 2024-07-28 22:48 | XMS_ITS | Encounter Summary ---
Author Organization [facility] Address [address] [place] [address] Care Team Providers Care Management Retail Intern Name Role Phone Prudence Mena P.A.-C. Primary Care Pro vider Reason for Referral * Outpatient (Routine) - Authorized Specialty Diagnoses / Procedures Referred By Contac t Referred To Contact Community Internal Medicine Prudence Mena MPAS, P.A.-C. [address] [place] [address] Phone: tel: fax: [facility] Region Referral ID Status Reason Start Date Expiration Date V isits Requested Visits Authorized [id number] Authorized 07/11/2024 01/10/2026 1 1 STAND MANAGER Encounter Details Date Type Department Care Team (Late st Contact Info) Description 07/11/2024 Orders Only Department of Community Internal Medicine in [place], [place] [address] [place] [address] Prudence Mena MPAS, P.A.-C. [address] [place] [address] Pneumonia (Primary Dx) Social History [...] Never 07/27/2022 How often do you attend yazdanism or taoism serv ices? Never 07/27/2022 Do you belong to any clubs o r organizations such as yazdanism groups, unions, fraternal or athletic groups, or [...] Answer Date Recorded PHQ-2 Score 6 07/10/2024 [facility] [place] of Occupat ional Health - Occupational Stress [...] st Contact Info) Description 07/29/2024 10:00 AM FOOD STAND MANAGER Infusion Department of Infusion Therapy in [address] [address] Melinda Isaac APRN, C.N.P. [address] [place] [phone] 07/29/2024 2:20 PM FOOD STAND MANAGER Office Visit Department of Community Internal Medicine in [place], [place] [address] [place] [phone] Prudence Mena MPAS, P.A.-C. [address] [place] [phone] 07/30/2024 9:00 AM FOOD STAND MANAGER Infusion Department of Infusion Therapy in [address] [address] Melinda Isaac APRN, C.N.P. [address] [place] [phone] 07/31/2024 8:00 AM FOOD STAND MANAGER Infusion Department of Infusion Therapy in [address] [address] Melinda Isaac APRN, C.N.P. [address] [place] [phone] 08/01/2024 7:00 AM FOOD STAND MANAGER Infusion Department of Infusion Therapy in [address] [address] Melinda Isaac APRN, C.N.P. [address] [place] [phone] 08/02/2024 9:00 AM FOOD STAND MANAGER Infusion Department of Infusion Therapy in [address] [address] Melinda Isaac APRN, C.N.P. [address] [place] [phone] 08/02/2024 12:30 PM FOOD STAND MANAGER Clinical Communication Virtual Review in [place], [place] 200 [place] [address] 08/03/2024 9:00 AM FOOD STAND MANAGER Infusion Department of Infusion Therapy in [address] [address] Melinda Isaac APRN, C.N.P. [address] [place] [phone] 08/04/2024 9:00 AM FOOD STAND MANAGER Infusion Department of Infusion Therapy in [address] [address] Melinda Isaac APRN, C.N.P. [address] [place] [phone] 08/05/2024 8:45 AM FOOD STAND MANAGER Appointment Department of Radiology, [facility], in [place], [place] [address] [place] [phone] Kayleigh Small M.D. [address] [place] [phone] 08/05/2024 9:00 AM FOOD STAND MANAGER Infusion Department of Infusion Therapy in [address] [place] [address] Melinda Isaac APRN, C.N.P. [address] [place] [phone] 08/05/2024 11:00 AM FOOD STAND MANAGER Office Visit Section of Infectious Diseases in [place], [place] [address] [place] [phone] Kayleigh Small M.D. [address] [place] [phone] 08/06/2024 9:00 AM FOOD STAND MANAGER Infusion Department of Infusion Therapy in [address] [address] Melinda Isaac APRN, C.N.P. [address] [place] [phone] 08/07/2024 9:00 AM FOOD STAND MANAGER Infusion Department of Infusion Therapy in [address] [address] Melinda Isaac APRN, C.N.P. [address] [place] [phone] 08/08/2024 9:00 AM FOOD STAND MANAGER Infusion Department of Infusion Therapy in [address] [address] Melinda Isaac APRN, C.N.P. [address] [place] [phone] 08/09/2024 9:00 AM FOOD STAND MANAGER Infusion Department of Infusion Therapy in [address] [address] Melinda Isaac APRN, C.N.P. [address] [place] [phone] 08/10/2024 9:00 AM FOOD STAND MANAGER Infusion Department of Infusion Therapy in [address] [address] Melinda Isaac APRN, C.N.P. [address] [place] [phone] 08/11/2024 9:00 AM FOOD STAND MANAGER Infusion Department of Infusion Therapy in [address] [address] Melinda Isaac APRN, C.N.P. [address] [place] [phone] 08/12/2024 9:00 AM FOOD STAND MANAGER Infusion Department of Infusion Therapy in [address] [address] Melinda Isaac APRN, C.N.P. [address] [place] [phone] 08/13/2024 8:30 AM FOOD STAND MANAGER Infusion Department of Infusion Therapy in [address] [address] Melinda Isaac APRN, C.N.P. [address] [place] [phone] 08/14/2024 9:00 AM FOOD STAND MANAGER Infusion Department of Infusion Therapy in [address] [address] Melinda Isaac APRN, C.N.P. [address] [place] [phone] 08/15/2024 9:00 AM FOOD STAND MANAGER Infusion Department of Infusion Therapy in [address] [address] Melinda Isaac APRN, C.N.P. [address] [place] [phone] 08/16/2024 9:00 AM FOOD STAND MANAGER Infusion Department of Infusion Therapy in [address] [phone] Melinda Isaac APRN, C.N.P. [address] [place] [phone] 08/17/2024 9:00 AM FOOD STAND MANAGER Infusion Department of Infusion Therapy in [address] [address] Melinda Isaac APRN, C.N.P. [address] [place] [phone] 08/18/2024 9:00 AM FOOD STAND MANAGER Infusion Department of Infusion Therapy in [address] [address] Melinda Isaac APRN, C.N.P. [address] [place] [phone] Scheduled Referrals Name Type Priority Associated Diagnoses Orde r Schedule Community Internal Medicine office visit (clinic) Outpatient Referral Routine Expected: 07/18/2024, Expires: 10/09/2025 documented as of this encounter Results * (ABNORMAL) Basic Metabolic Panel (07/21/2024 9:24 AM FOOD STAND MANAGER) [facility] Potassium, P 3.1(L) 3.6 - 5.2 mmol/L 07/21/2024 9:55 AM FOOD STAND MANAGER RDWG Sodium, P 143 135 - 145 mmol/L 07/21/2024 9:55 AM FOOD STAND MANAGER RDWG Chloride, P 102 98 - 107 mmol/L 07/21/2024 9:55 AM FOOD STAND MANAGER RDWG Bicarbonate, P 30(H) 22 - 29 mmol/L 07/21/2024 9:55 AM FOOD STAND MANAGER RDWG Anion Gap, P 11 7 - 15 07/21/2024 9:55 AM FOOD STAND MANAGER RDWG BUN (Blood Urea Nitrogen), P 8 6 - 21 mg/dL 07/21/2024 9:55 AM FOOD STAND MANAGER RDWG Creatinine 0.69 0.59 - 1.04 mg/dL 07/21/2024 9:55 AM FOOD STAND MANAGER RDWG Estimated GFR (eGFR) >90 >=60 mL/min/BSA 07/21/2024 9:55 AM FOOD STAND MANAGER RDWG Comment: Estimated GFR calculated using the 2020 CKD_EPI creatinine equation. Calcium, Total, P 8.7 8.6 - 10.0 mg/dL 07/21/2024 9:55 AM FOOD STAND MANAGER RDWG Glucose, P 97 70 - 140 mg/dL 07/21/2024 9:55 AM FOOD STAND MANAGER RDWG Blood (Blood, Venous) 07/21/2024 9:24 AM FOOD STAND MANAGER 07/21/2024 9:32 AM FOOD STAND MANAGER Prudence TO, P.A.-C. LAB BLOOD ADD-ON Final Result [facility] [address] [facility] [place] [address], [facility] in [place] [address] [place] [address] * (ABNORMAL) CBC with Differential, Blood (07/21/2024 9:24 AM FOOD STAND MANAGER) Hemoglobin 8.6(L) 11.6 - 15.0 g/dL 07/21/2024 9:34 AM FOOD STAND MANAGER RDWG Hematocrit 27.0(L) 35.5 - 44.9 % 07/21/2024 9:34 AM FOOD STAND MANAGER RDWG Erythrocytes 3.00(L) 3.92 - 5.13 x10(12)/L 07/21/2024 9:34 AM FOOD STAND MANAGER RDWG MCV 90.0 78.2 - 97.9 fL 07/21/2024 9:34 AM FOOD STAND MANAGER RDWG RBC Distrib Width 15.5 12.2 - 16.1 % 07/21/2024 9:34 AM FOOD STAND MANAGER RDWG Platelet Count 515(H) 157 - 371 x10(9)/L 07/21/2024 9:34 AM FOOD STAND MANAGER RDWG Leukocytes 7.9 3.4 - 9.6 x10(9)/L 07/21/2024 9:34 AM FOOD STAND MANAGER RDWG Neutrophils 5.44 1.56 - 6.45 x10(9)/L 07/21/2024 9:34 AM FOOD STAND MANAGER RDWG Lymphocytes 1.31 0.95 - 3.07 x10(9)/L 07/21/2024 9:34 AM FOOD STAND MANAGER RDWG Monocytes 0.65 0.26 - 0.81 x10(9)/L 07/21/2024 9:34 AM FOOD STAND MANAGER RDWG Eosinophils 0.45 0.03 - 0.48 x10(9)/L 07/21/2024 9:34 AM FOOD STAND MANAGER RDWG Basophils <0.03 0.01 - 0.08 x10(9)/L 07/21/2024 9:34 AM FOOD STAND MANAGER RDWG Blood (Blood, Venous) 07/21/2024 9:24 AM FOOD STAND MANAGER 07/21/2024 9:32 AM FOOD STAND MANAGER Prudence TO, P.A.-C. LAB BLOOD ADD-ON Final Result [facility] [address] [place] [id number], [facility]DW[facility] in [place] [address] [place] [phone] documented in this encounter Visit Diagnoses Diagnosis Pneumonia- Primary documented in this encounter Additional Health Concerns Assessment Noted Time PHQ-9 Depression Total Score: 22 025 7:19 PM FOOD STAND MANAGER documented as of this encounter Care Teams Management Retail Intern Relationship Specialty Start Date End Date Prudence Mena MPAS, P.A.-C. [address] [facility] [place] [phone] PCP - General Internal Medicine 02/08/24 documented as of this encounter
--- OUTSIDE RECORDS SUMMARY | 2024-07-28 22:48 | XMS_ITS | Encounter Summary ---
Author Organization [facility] Address [address] [place] [address] Care Team Providers Care Pie Topper Name Role Phone Prudence Mena P.A.-CDmitry Primary Care Pro vider Encounter Details Date Type Department Care Team (Late st Contact Info) Description 07/11/2024 Clinical Communication Department of Community Internal Medicine in [place], [place] [address] [place] [address] Prudence Mena MPAS P.A.-C. 300 [place] [phone] Social History Tobacco Use Types Packs/Day Years Used Date Smoking Tobacco: Former Cigarettes 1.5 0.1 S tarted: 06/21/2024 Passive Smoke Exposure: Past Smokeless Tobacco: Never Alcohol Use Standard Drinks/Week Comments Yes 0 (1 standard drink = 0.6 oz pur e alcohol) [facility] Utilities Answer Date Recorded In the past 12 months has e [employer] gas, oil, or water [employer] threatened to shut off services in your [...] How often do you attend synagogue or mandaen serv ices? Never 07/27/2022 Do you belong [...] Answer Date Recorded PHQ-2 Score 6 07/10/2024 [facility] of Occupat ional Health - Occupational [...] Es Evans L.P.N. - 07/11/2024 3:33 PM PERL PROGRAMMER Called and notified patient of: Please call [...] CT scan and follow up with Prudence. PROGRAMMER documented in this encounter Plan of Treatment Upcoming Encounters Date Type Department Care Team (Late st Contact Info) Description 07/29/2024 10:00 AM PERL PROGRAMMER Infusion Department of Infusion Therapy in [address] [phone] Melinda Isaac APRN, C.N.P. [address] [place] [phone] 07/29/2024 2:20 PM PERL PROGRAMMER Office Visit Department of Community Internal Medicine in [place], [place] [address] [place] [phone] Prudence Mena, LATONIAS, P.A.-C. 300 [place] [address] 07/30/2024 9:00 AM PERL PROGRAMMER Infusion Department of Infusion Therapy in [address] [address] Melinda Isaac APRN, C.N.P. [address] [place] [phone] 07/31/2024 8:00 AM PERL PROGRAMMER Infusion Department of Infusion Therapy in [address] [phone] Melinda Isaac APRN, C.N.P. [address] [place] [phone] 08/01/2024 7:00 AM PERL PROGRAMMER Infusion Department of Infusion Therapy in [address] [phone] Melinda Isaac APRN, C.N.P. [address] [place] [phone] 08/02/2024 9:00 AM PERL PROGRAMMER Infusion Department of Infusion Therapy in [address] [address] Melinda Isaac APRN, C.N.P. [address] [place] [phone] 08/02/2024 12:30 PM PERL PROGRAMMER Clinical Communication Virtual Review in [place], [place] 200 [place] [address] 08/03/2024 9:00 AM PERL PROGRAMMER Infusion Department of Infusion Therapy in [address] [address] Melinda Isaac APRN, C.N.P. [address] [place] [phone] 08/04/2024 9:00 AM PERL PROGRAMMER Infusion Department of Infusion Therapy in [address] [address] Melinda Isaac APRN, C.N.P. [address] [place] [phone] 08/05/2024 8:45 AM PERL PROGRAMMER Appointment Department of Radiology, [facility], in [place], [place] [address] [place] [phone] Kayleigh Small M.D. [address] [place] [phone] 08/05/2024 9:00 AM PERL PROGRAMMER Infusion Department of Infusion Therapy in [address] [address] Melinda Isaac APRN, C.N.P. [address] [place] [phone] 08/05/2024 11:00 AM PERL PROGRAMMER Office Visit Section of Infectious Diseases in [place], [place] [address] [place] [phone] Kayleigh Small M.D. [address] [place] [phone] 08/06/2024 9:00 AM PERL PROGRAMMER Infusion Department of Infusion Therapy in [address] [phone] Melinda Isaac APRN, C.N.P. [address] [place] [phone] 08/07/2024 9:00 AM PERL PROGRAMMER Infusion Department of Infusion Therapy in [address] [address] Melinda Isaac APRN, C.N.P. [address] [place] [phone] 08/08/2024 9:00 AM PERL PROGRAMMER Infusion Department of Infusion Therapy in [address] [address] Melinda Isaac APRN, C.N.P. [address] [place] [phone] 08/09/2024 9:00 AM PERL PROGRAMMER Infusion Department of Infusion Therapy in [address] [address] Melinda Isaac APRN, C.N.P. [address] [place] [phone] 08/10/2024 9:00 AM PERL PROGRAMMER Infusion Department of Infusion Therapy in [address] [address] Melinda Isaac APRN, C.N.P. [address] [place] [phone] 08/11/2024 9:00 AM PERL PROGRAMMER Infusion Department of Infusion Therapy in [address] [address] Melinda Isaac APRN, C.N.P. [address] [place] [phone] 08/12/2024 9:00 AM PERL PROGRAMMER Infusion Department of Infusion Therapy in [address] [address] Melinda Isaac APRN, C.N.P. [address] [place] [phone] 08/13/2024 8:30 AM PERL PROGRAMMER Infusion Department of Infusion Therapy in [address] [address] Melinda Isaac APRN, C.N.P. [address] [place] [phone] 08/14/2024 9:00 AM PERL PROGRAMMER Infusion Department of Infusion Therapy in [address] [address] Melinda Isaac APRN, C.N.P. [address] [place] [phone] 08/15/2024 9:00 AM PERL PROGRAMMER Infusion Department of Infusion Therapy in [address] [address] Melinda Isaac APRN, C.N.P. [address] [place] [phone] 08/16/2024 9:00 AM PERL PROGRAMMER Infusion Department of Infusion Therapy in [address] [address] Melinda Isaac APRN, C.N.P. [address] [place] [phone] 08/17/2024 9:00 AM PERL PROGRAMMER Infusion Department of Infusion Therapy in [address] [address] Melinda Isaac APRN, C.N.P. [address] [place] [phone] 08/18/2024 9:00 AM PERL PROGRAMMER Infusion Department of Infusion Therapy in [address] [address] Melinda Isaac APRN, C.N.P. [address] [place] [address] documented as of this encounter Visit Diagnoses Not on filedocumented in this encounter Additional Health Concerns Assessment Noted Time PHQ-9 Depression Total Score: 22 025 7:19 PM PERL PROGRAMMER documented as of this encounter Care Teams Pie Topper Relationship Specialty Start Date End Date Prudence Mena MPAS, P.A.-C. [address] [place] [phone] PCP - General Internal Medicine 02/08/24 documented as of this encounter
--- OUTSIDE RECORDS SUMMARY | 2024-07-28 22:48 | XMS_ITS | Encounter Summary ---
Author Organization [facility] Address [address] [place] [address] Care Team Providers Care Vertical Mill Operator Name Role Phone Prudence Mena P.A.-CDmitry Primary Care Pro vider Encounter Details Date Type Department Care Team (Latest Contact Info) Description 07/11/2024 11:08 AM HIGH RIGGER - 07/11/2024 11:16 AM [facility] Hospital Encounter Department of Laboratory Medicine in [place], [place] 300 [place] [phone] Prudence Mena MPAS PDmitryA.-CDmitry [address] [place] [phone] Pneumonia Discharge Disposition: Home or Self Care Social History Tobacco Use Types Packs/Day Years Used Date Smoking Tobacco: Former Cigarettes 1.5 0.1 S tarted: 06/21/2024 Passive Smoke Exposure: Past Smokeless Tobacco: Never Alcohol Use Standard Drinks/Week Comments Yes 0 (1 standard drink = 0.6 oz pur e alcohol) socially [facility] Utilities Answer Date Recorded In the past 12 months has e electric, gas, oil, or water [employer] threatened to shut off services in your [...] Never 07/27/2022 How often do you attend alevism or restorationism serv ices? Never 07/27/2022 Do you belong to any clubs o r organizations such as alevism groups, unions, fraternal or athletic groups, or [...] Answer Date Recorded PHQ-2 Score 6 07/10/2024 [facility] of Occupat ional Health - Occupational Stress [...] mouth between 12pm and 2pm daily* 11/01/2023 DULoxetine (CYMBALTA) [address] capsule Take [...] capsule Take 1 capsule by mouth daily. polyethylene glycol (MIRALAX) 17 gram/dose oral powder [...] 4.5 mg by mouth at bedtime. 10/11/2022 DME CPAPIndications: Obstructive Sleep Apnea Adult DME Order 1 each 01/25/2024 nitrofurantoin (MACRODANTIN) 50 mg capsule TAKE ONE CAPSULE BY MOUTH ONE TIME DAILY 90 capsule 3 04/21/2023 fluticasone propionate (FLOVENT DISKUS) 100 mcg/actuation diskus inhaler 06/29/2018 5 documented as of this encounter Plan of Treatment Upcoming Encounters Date Type Department Care Team (Late st Contact Info) Description 07/29/2024 10:00 AM HIGH RIGGER Infusion Department of Infusion Therapy in [address] [phone] Melinda Isaac, FRED, C.N.P. [address] [place] [phone] 07/29/2024 2:20 PM HIGH RIGGER Office Visit Department of Community Internal Medicine in [address] [place] [phone] Prudence Mena, LATONIAS, P.A.-C. 300 [place] [phone] 07/30/2024 9:00 AM HIGH RIGGER Infusion Department of Infusion Therapy in [address] [address] Melinda Isaac APRN, C.N.P. [address] [place] [phone] 07/31/2024 8:00 AM HIGH RIGGER Infusion Department of Infusion Therapy in [address] [address] Melinda Isaac APRN, C.N.P. [address] [place] [phone] 08/01/2024 7:00 AM HIGH RIGGER Infusion Department of Infusion Therapy in [address] [address] Melinda Isaac APRN, C.N.P. [address] [place] [phone] 08/02/2024 9:00 AM HIGH RIGGER Infusion Department of Infusion Therapy in [address] [address] Melinda Isaac APRN, C.N.P. [address] [place] [phone] 08/02/2024 12:30 PM HIGH RIGGER Clinical Communication Virtual Review in [place], [place] 200 [place] [address] 08/03/2024 9:00 AM HIGH RIGGER Infusion Department of Infusion Therapy in [address] [address] Melinda Isaac APRN, C.N.P. [address] [place] [phone] 08/04/2024 9:00 AM HIGH RIGGER Infusion Department of Infusion Therapy in [address] [address] Melinda Isaac APRN, C.N.P. [address] [place] [phone] 08/05/2024 8:45 AM HIGH RIGGER Appointment Department of Radiology, [facility], in [place], [place] [address] [place] [phone] Kayleigh Small M.D. [address] [place] [phone] 08/05/2024 9:00 AM HIGH RIGGER Infusion Department of Infusion Therapy in [address] [address] Melinda Isaac APRN, C.N.P. [address] [place] [phone] 08/05/2024 11:00 AM HIGH RIGGER Office Visit Section of Infectious Diseases in [place], [place] [address] [place] [phone] Kayleigh Small M.D. [address] [place] [phone] 08/06/2024 9:00 AM HIGH RIGGER Infusion Department of Infusion Therapy in [address] [address] Melinda Isaac APRN, C.N.P. [address] [place] [phone] 08/07/2024 9:00 AM HIGH RIGGER Infusion Department of Infusion Therapy in [address] [address] Melinda Isaac APRN, C.N.P. [address] [place] [phone] 08/08/2024 9:00 AM HIGH RIGGER Infusion Department of Infusion Therapy in [address] [address] Melinda Isaac APRN, C.N.P. [address] [place] [phone] 08/09/2024 9:00 AM HIGH RIGGER Infusion Department of Infusion Therapy in [address] [address] Melinda Isaac APRN, C.N.P. [address] [place] [phone] 08/10/2024 9:00 AM HIGH RIGGER Infusion Department of Infusion Therapy in [address] [address] Melinda Isaac APRN, C.N.P. [address] [place] [phone] 08/11/2024 9:00 AM HIGH RIGGER Infusion Department of Infusion Therapy in [address] [address] Melinda Isaac APRN, C.N.P. [address] [place] [phone] 08/12/2024 9:00 AM HIGH RIGGER Infusion Department of Infusion Therapy in [address] [address] Melinda Isaac APRN, C.N.P. [address] [place] [phone] 08/13/2024 8:30 AM HIGH RIGGER Infusion Department of Infusion Therapy in [address] [address] Melinda Isaac APRN, C.N.P. [address] [place] [phone] 08/14/2024 9:00 AM HIGH RIGGER Infusion Department of Infusion Therapy in [address] [address] Melinda Isaac APRN, C.N.P. [address] [place] [phone] 08/15/2024 9:00 AM HIGH RIGGER Infusion Department of Infusion Therapy in [address] [address] Melinda Isaac APRN, C.N.P. [address] [place] [phone] 08/16/2024 9:00 AM HIGH RIGGER Infusion Department of Infusion Therapy in [address] [address] Melinda Isaac APRN, C.N.P. [address] [place] [phone] 08/17/2024 9:00 AM HIGH RIGGER Infusion Department of Infusion Therapy in [address] [phone] Melinda Isaac APRN, C.N.P. [address] [place] [phone] 08/18/2024 9:00 AM HIGH RIGGER Infusion Department of Infusion Therapy in [address] [phone] Melinda Isaac APRN, C.N.P. [address] [place] [phone] documented as of this encounter Procedures Procedure Name Priority Date/Time Associated Diagnosis Comments CBC WITH DIFFERENTIAL, B Routine 07/11/2024 11:17 AM HIGH RIGGER Pneumonia BASIC METABOLIC PANEL, S/P Routine 07/11/2024 11:17 AM HIGH RIGGER Pneumonia documented in this encounter Results * (ABNORMAL) Basic Metabolic Panel (07/11/2024 11:17 AM HIGH RIGGER) Potassium, P 3.6 3.6 - 5.2 mmol/L 07/11/2024 1:43 PM HIGH RIGGER OWAT Sodium, P 141 135 - 145 mmol/L 07/11/2024 1:43 PM HIGH RIGGER OWAT Chloride, P 104 98 - 107 mmol/L 07/11/2024 1:43 PM HIGH RIGGER OWAT Bicarbonate, P 27 22 - 29 mmol/L 07/11/2024 1:43 PM HIGH RIGGER OWAT Anion Gap, P 10 7 - 15 07/11/2024 1:43 PM HIGH RIGGER OWAT BUN (Blood Urea Nitrogen), P 18 6 - 21 mg/dL 07/11/2024 1:43 PM HIGH RIGGER OWAT Creatinine 0.53(L) 0.59 - 1.04 mg/dL 07/11/2024 1:43 PM HIGH RIGGER OWAT Estimated GFR (eGFR) >90 >=60 mL/min/BSA 07/11/2024 1:43 PM HIGH RIGGER OWAT Comment: Estimated GFR calculated using the 2020 CKD_EPI creatinine equation. Calcium, Total, P 9.0 8.6 - 10.0 mg/dL 07/11/2024 1:43 PM HIGH RIGGER OWAT Glucose, P 126 70 - 140 mg/dL 07/11/2024 1:43 PM HIGH RIGGER OWAT Blood (Blood, Venous) 07/11/2024 11:17 AM HIGH RIGGER 07/11/2024 12:57 PM HIGH RIGGER us Prudence TO, P.A.-C. LAB BLOOD ADD-ON Final Result [facility] [address] [place] [address], [facility] OWAT [facility] in [place] [address] [place] [address] * (ABNORMAL) CBC with Differential, Blood (07/11/2024 11:17 AM HIGH RIGGER) Hemoglobin 10.0(L) 11.6 - 15.0 g/dL 07/11/2024 11:25 AM HIGH RIGGER FB60 Hematocrit 30.7(L) 35.5 - 44.9 % 07/11/2024 11:25 AM HIGH RIGGER FB60 Erythrocytes 3.39(L) 3.92 - 5.13 x10(12)/L 07/11/2024 11:25 AM HIGH RIGGER FB60 MCV 90.6 78.2 - 97.9 fL 07/11/2024 11:25 AM HIGH RIGGER FB60 RBC Distrib Width 14.9 12.2 - 16.1 % 07/11/2024 11:25 AM HIGH RIGGER FB60 Platelet Count 678(H) 157 - 371 x10(9)/L 07/11/2024 11:25 AM HIGH RIGGER FB60 Leukocytes 14.7(H) 3.4 - 9.6 x10(9)/L 07/11/2024 11:25 AM HIGH RIGGER FB60 Neutrophils 11.68(H) 1.56 - 6.45 x10(9)/L 07/11/2024 11:25 AM HIGH RIGGER FB60 Lymphocytes 1.65 0.95 - 3.07 x10(9)/L 07/11/2024 11:25 AM HIGH RIGGER FB60 Monocytes 1.28(H) 0.26 - 0.81 x10(9)/L 07/11/2024 11:25 AM HIGH RIGGER FB60 Eosinophils 0.06 0.03 - 0.48 x10(9)/L 07/11/2024 11:25 AM HIGH RIGGER FB60 Basophils <0.04 0.01 - 0.08 x10(9)/L 07/11/2024 11:25 AM HIGH RIGGER FB60 Blood (Blood, Venous) 07/11/2024 11:17 AM HIGH RIGGER 07/11/2024 11:17 AM HIGH RIGGER us Prudence TO, P.A.-C. LAB BLOOD ADD-ON Final Result [facility] [address] [place] [address], [facility] FB60 [facility] in [place] [address] [place] [address] documented in this encounter Visit Diagnoses Diagnosis Pneumonia documented in this encounter Additional Health Concerns Assessment Noted Time PHQ-9 Depression Total Score: 22 025 7:19 PM HIGH RIGGER documented as of this encounter Care Teams Vertical Mill Operator Relationship Specialty Start Date End Date Prudence Mena MPAS, P.A.-C. [address] [place] [phone] PCP - General Internal Medicine 02/08/24 documented as of this encounter
--- OUTSIDE RECORDS SUMMARY | 2024-07-28 22:49 | XMS_ITS | Encounter Summary ---
Author Organization [facility] Address [address] [place] [address] Care Team Providers Care Morgue Librarian Name Role Phone Prudence Mena P.A.-C. Primary Care Pro vider Reason for Visit * Reason Onset Date Comments Post Hospital Follow-up 07/22/2024 Complete d - DC'd 07/20/24 @ 1016 Encounter Details Date Type Department Care Team (Latest Contact Info) Description 07/22/2024 Clinical Communication Department of Community Internal Medicine in [place] [address] [place] [address] Rosalva Galeano, R.N. Post Hospital Follow-up (Completed - DC'd 07/20/24 @ 1016) Social History Tobacco Use Types Packs/Day Years Used Date Smoking Tobacco: Former Cigarettes 1.5 0.1 S tarted: 06/21/2024 Passive Smoke Exposure: Past Smokeless Tobacco: Never Alcohol Use Standard Drinks/Week Comments Yes 0 (1 standard drink = 0.6 oz pur e alcohol) socially [facility] Utilities Answer Date Recorded In the [...] Never 07/27/2022 How often do you attend congregational or samaritan serv ices? Never 07/27/2022 Do you belong to any clubs o r organizations such as congregational groups, unions, fraternal or athletic groups, or [...] Answer Date Recorded PHQ-2 Score 6 07/10/2024 [facility] - Occupational Stress Questionnaire [...] - Venus Khalil - 07/22/2024 1:16 PM CHEMICAL MANAGER Patient has been scheduled for 07/29 ICAL MANAGER * Telephone Encounter - Rosalva Galeano R.N. - 07/22/2024 12:56 PM CHEMICAL MANAGER SUBJECTIVE REASON FOR CALL Post-Hospital follow-up phone [...] hospital discharge - she flew here from [place]. Patient identified if needing assistance, she could [...] additional f/u by RN. All questions answered. ICAL MANAGER documented in this encounter Plan of Treatment Upcoming Encounters Date Type Department Care Team (Late st Contact Info) Description 07/29/2024 10:00 AM CHEMICAL MANAGER Infusion Department of Infusion Therapy in [address] [phone] Melinda Isaac APRN, C.N.P. [address] [place] [phone] 07/29/2024 2:20 PM CHEMICAL MANAGER Office Visit Department of Community Internal Medicine in [address] [phone] Prudence Mena MPAS, P.A.-C. 300 [place] [phone] 07/30/2024 9:00 AM CHEMICAL MANAGER Infusion Department of Infusion Therapy in [address] [phone] Melinda Isaac APRN, C.N.P. [address] [place] [phone] 07/31/2024 8:00 AM CHEMICAL MANAGER Infusion Department of Infusion Therapy in [address] [address] Melinda Isaac APRN, C.N.P. [address] [place] [phone] 08/01/2024 7:00 AM CHEMICAL MANAGER Infusion Department of Infusion Therapy in [address] [phone] Melinda Isaac APRN, C.N.P. [address] [place] [phone] 08/02/2024 9:00 AM CHEMICAL MANAGER Infusion Department of Infusion Therapy in [address] [address] Melinda Isaac APRN, C.N.P. [address] [place] [phone] 08/02/2024 12:30 PM CHEMICAL MANAGER Clinical Communication Virtual Review in [place], [place] 200 [place] [phone] 08/03/2024 9:00 AM CHEMICAL MANAGER Infusion Department of Infusion Therapy in [address] [address] Melinda Isaac APRN, C.N.P. [address] [place] [phone] 08/04/2024 9:00 AM CHEMICAL MANAGER Infusion Department of Infusion Therapy in [address] [address] Melinda Isaac APRN, C.N.P. [address] [place] [phone] 08/05/2024 8:45 AM CHEMICAL MANAGER Appointment Department of Radiology, [facility], in [place], [place] [address] [place] [phone] Kayleigh Small M.D. [address] [place] [phone] 08/05/2024 9:00 AM CHEMICAL MANAGER Infusion Department of Infusion Therapy in [address] [address] Melinda Isaac APRN, C.N.P. [address] [place] [phone] 08/05/2024 11:00 AM CHEMICAL MANAGER Office Visit Section of Infectious Diseases in [place], [place] [address] [place] [phone] Kayleigh Small M.D. [address] [place] [phone] 08/06/2024 9:00 AM CHEMICAL MANAGER Infusion Department of Infusion Therapy in [address] [address] Melinda Isaac APRN, C.N.P. [address] [place] [phone] 08/07/2024 9:00 AM CHEMICAL MANAGER Infusion Department of Infusion Therapy in [address] [address] Melinda Isaac APRN, C.N.P. [address] [place] [phone] 08/08/2024 9:00 AM CHEMICAL MANAGER Infusion Department of Infusion Therapy in [address] [address] Melinda Isaac APRN, C.N.P. [address] [place] [phone] 08/09/2024 9:00 AM CHEMICAL MANAGER Infusion Department of Infusion Therapy in [address] [address] Melinda Isaac APRN, C.N.P. [address] [place] [phone] 08/10/2024 9:00 AM CHEMICAL MANAGER Infusion Department of Infusion Therapy in [address] [address] Melinda Isaac APRN, C.N.P. [address] [place] [phone] 08/11/2024 9:00 AM CHEMICAL MANAGER Infusion Department of Infusion Therapy in [address] [address] Melinda Isaac APRN, C.N.P. [address] [place] [phone] 08/12/2024 9:00 AM CHEMICAL MANAGER Infusion Department of Infusion Therapy in [address] [address] Melinda Isaac APRN, C.N.P. [address] [place] [phone] 08/13/2024 8:30 AM CHEMICAL MANAGER Infusion Department of Infusion Therapy in [address] [address] Melinda Isaac APRN, C.N.P. [address] [place] [phone] 08/14/2024 9:00 AM CHEMICAL MANAGER Infusion Department of Infusion Therapy in [address] [address] Melinda Isaac APRN, C.N.P. [address] [place] [phone] 08/15/2024 9:00 AM CHEMICAL MANAGER Infusion Department of Infusion Therapy in [address] [address] Melinda Isaac APRN, C.N.P. [address] [place] [phone] 08/16/2024 9:00 AM CHEMICAL MANAGER Infusion Department of Infusion Therapy in [address] [address] Melinda Isaac APRN, C.N.P. [address] [place] [phone] 08/17/2024 9:00 AM CHEMICAL MANAGER Infusion Department of Infusion Therapy in [address] [address] Melinda Isaac APRN, C.N.P. [address] [place] [phone] 08/18/2024 9:00 AM CHEMICAL MANAGER Infusion Department of Infusion Therapy in [address] [phone] Melinda Isaac APRN, C.N.P. [address] [place] [phone] documented as of this encounter Visit Diagnoses Not on filedocumented in this encounter Additional Health Concerns Assessment Noted Time PHQ-9 Depression Total Score: 22 025 7:19 PM CHEMICAL MANAGER documented as of this encounter Care Teams Morgue Librarian Relationship Specialty Start Date End Date Prudence Mena MPAS, P.A.-C. [address] [facility] [place] [phone] PCP - General Internal Medicine 02/08/24 documented as of this encounter
--- OUTSIDE RECORDS SUMMARY | 2024-07-28 22:49 | XMS_ITS | Encounter Summary ---
Author Organization [facility] Address [address] [place] [address] Care Team Providers Care Lmsw Name Role Phone Prudence Mena P.A.-C. Primary Care Pro vider Reason for Referral * Outpatient (Routine) - Closed Specialty Diagnoses / Procedures Referred By Talia galeas Referred To Contact Diagnoses Pneumonia Procedures DX Chest AP or PA and Lateral 2 Views Prudence Mena MPAS, P.A.-C. [address] [place] [address] Phone: tel: [facility] Referral ID Status Reason Start Date Expiration Date Visits Re quested Visits Authorized [id number] Closed 07/11/2024 07/11/2025 1 1 RAIL HOOKER Reason for Visit * Outpatient (Routine) - Closed Specialty Diagnoses / Procedures Referred By Contac t Referred To Contact Diagnoses Pneumonia Procedures DX Chest AP or PA and Lateral 2 Views Prudence Mena MPAS, P.A.-C. [address] [place] [address] Phone: tel: fax: [facility] Region Referral ID Status Reason Start Date Expiration Date Visits Re quested Visits Authorized [id number] Closed 07/11/2024 07/11/2025 1 1 Encounter Details Date Type Department Care Team (Latest Contact Info) Description 07/11/2024 11:17 AM MONORAIL HOOKER - 07/11/2024 11:59 PM MONORAIL HOOKER Hospital Encounter Department of Radiology in [place], [place] 300 [facility] [place] [phone] Prudence Mena MPAS, P.A.-C. 300 [facility] [place] [address] Pneumonia Discharge Disposition: Home or Self Care Social History Tobacco Use Types Packs/Day Years Used Date Smoking Tobacco: Former Cigarettes 1.5 0.1 S tarted: 06/21/2024 Passive Smoke Exposure: Past Smokeless Tobacco: Never Alcohol Use Standard Drinks/Week Comments Yes 0 (1 standard drink = 0.6 oz pur e alcohol) socially [facility] Utilities Answer Date Recorded In the past 12 months has e electric, gas, oil, or water [employer] threatened to shut off services in your [...] Never 07/27/2022 How often do you attend jain or zoroastrianism serv ices? Never 07/27/2022 Do you belong to any clubs o r organizations such as jain groups, unions, fraternal or athletic groups, or [...] ONE TIME DAILY 90 capsule 3 04/21/2023 levoFLOXacin (Levaquin) 750 mg tabletIndication s:Pneumonia Take 1 tablet (750 mg total) by mouth daily before morning meal. 7 tablet 07/11/2024 fluticasone propionate (FLOVENT DISKUS) 100 mcg/actuation diskus inhaler 06/29/2018 5 documented as of this encounter Miscellaneous [...] her back in clinic in 1 week. RAIL HOOKER documented in this encounter Plan of Treatment Upcoming Encounters Date Type Department Care Team (Late st Contact Info) Description 07/29/2024 10:00 AM MONORAIL HOOKER Infusion Department of Infusion Therapy in [address] [address] Melinda Isaac APRN, C.N.P. [address] [place] [phone] 07/29/2024 2:20 PM MONORAIL HOOKER Office Visit Department of Community Internal Medicine in [place], [place] 300 [place] [phone] Prudence Mena MPAS, P.A.-C. [address] [place] [phone] 07/30/2024 9:00 AM MONORAIL HOOKER Infusion Department of Infusion Therapy in [address] [address] Melinda Isaac APRN, C.N.P. [address] [place] [phone] 07/31/2024 8:00 AM MONORAIL HOOKER Infusion Department of Infusion Therapy in [address] [address] Melinda Isaac APRN, C.N.P. [address] [place] [phone] 08/01/2024 7:00 AM MONORAIL HOOKER Infusion Department of Infusion Therapy in [address] [address] Melinda Isaac APRN, C.N.P. [address] [place] [phone] 08/02/2024 9:00 AM MONORAIL HOOKER Infusion Department of Infusion Therapy in [address] [phone] Melinda Isaac APRN, C.N.P. [address] [place] [phone] 08/02/2024 12:30 PM MONORAIL HOOKER Clinical Communication Virtual Review in [place], [place] 200 [place] [address] 08/03/2024 9:00 AM MONORAIL HOOKER Infusion Department of Infusion Therapy in [address] [address] Melinda Isaac APRN, C.N.P. [address] [place] [phone] 08/04/2024 9:00 AM MONORAIL HOOKER Infusion Department of Infusion Therapy in [address] [address] Melinda Isaac APRN, C.N.P. [address] [place] [phone] 08/05/2024 8:45 AM MONORAIL HOOKER Appointment Department of Radiology, [facility], in [place], [place] [address] [place] [phone] Kayleigh Small M.D. [address] [place] [phone] 08/05/2024 9:00 AM MONORAIL HOOKER Infusion Department of Infusion Therapy in [address] [address] Melinda Isaac APRN, C.N.P. [address] [place] [phone] 08/05/2024 11:00 AM MONORAIL HOOKER Office Visit Section of Infectious Diseases in [place], [place] [address] [place] [phone] Kayleigh Small M.D. [address] [place] [phone] 08/06/2024 9:00 AM MONORAIL HOOKER Infusion Department of Infusion Therapy in [address] [address] Melinda Isaac APRN, C.N.P. [address] [place] [phone] 08/07/2024 9:00 AM MONORAIL HOOKER Infusion Department of Infusion Therapy in [address] [address] Melinda Isaac APRN, C.N.P. [address] [place] [phone] 08/08/2024 9:00 AM MONORAIL HOOKER Infusion Department of Infusion Therapy in [address] [address] Melinda Isaac APRN, C.N.P. [address] [place] [phone] 08/09/2024 9:00 AM MONORAIL HOOKER Infusion Department of Infusion Therapy in [address] [address] Melinda Isaac APRN, C.N.P. [address] [place] [phone] 08/10/2024 9:00 AM MONORAIL HOOKER Infusion Department of Infusion Therapy in [address] [address] Melinda Isaac APRN, C.N.P. [address] [place] [phone] 08/11/2024 9:00 AM MONORAIL HOOKER Infusion Department of Infusion Therapy in [address] [address] Melinda Isaac APRN, C.N.P. [address] [place] [phone] 08/12/2024 9:00 AM MONORAIL HOOKER Infusion Department of Infusion Therapy in [address] [address] Melinda Isaac APRN, C.N.P. [address] [place] [phone] 08/13/2024 8:30 AM MONORAIL HOOKER Infusion Department of Infusion Therapy in [address] [address] Melinda Isaac APRN, C.N.P. [address] [place] [phone] 08/14/2024 9:00 AM MONORAIL HOOKER Infusion Department of Infusion Therapy in [address] [address] Melinda Isaac APRN, C.N.P. [address] [place] [phone] 08/15/2024 9:00 AM MONORAIL HOOKER Infusion Department of Infusion Therapy in [address] [address] Melinda Isaac APRN, C.N.P. [address] [place] [phone] 08/16/2024 9:00 AM MONORAIL HOOKER Infusion Department of Infusion Therapy in [address] [address] Melinda Isaac APRN, C.N.P. [address] [place] [phone] 08/17/2024 9:00 AM MONORAIL HOOKER Infusion Department of Infusion Therapy in [address] [address] Melinda Isaac APRN, C.N.P. [address] [place] [phone] 08/18/2024 9:00 AM MONORAIL HOOKER Infusion Department of Infusion Therapy in [address] [phone] Melinda Isaac APRN, C.N.P. [address] [place] [phone] documented as of this encounter Procedures Procedure Name Priority Date/Time Associated Diagnosis Comments DX CHEST AP OR PA AND LATERAL 2 VIEWS RAD - Routine (most inpatients and all outpatients) 07/11/2024 11:26 AM MONORAIL HOOKER Pneumonia documented in this encounter Results * DX Chest AP or PA and Lateral 2 Views (07/11/2024 11:26 AM MONORAIL HOOKER) Anatomical Region Laterality Modality Chest, Thoracic RST LOS, Tho racic ARZ LOS, Thoracic FLA LOS N/A Digital Radiography Impressions 07/11/2024 11:59 AM MONORAIL HOOKER No direct comparison available at time of [...] within normal limits. Narrative 07/11/2024 11:59 AM MONORAIL HOOKER EXAM: DX CHEST AP OR PA AND [...] Depression Total Score: 22 025 7:19 PM MONORAIL HOOKER documented as of this encounter Care Teams Lmsw Relationship Specialty Start Date End Date Prudence Mena MPAS, P.A.-C. [address] [place] [address] [place] [address] PCP - General Internal Medicine 02/08/24 documented as of this encounter
--- OUTSIDE RECORDS SUMMARY | 2024-07-28 22:49 | XMS_ITS | Encounter Summary ---
Author Organization [facility] Address [address] [place] [address] Care Team Providers Care Food Demonstrator Name Role Phone Prudence Mena P.A.-CDmitry Primary Care Pro vider Encounter Details Date Type Department Care Team (Late st Contact Info) Description 07/24/2024 Results Follow-Up Department of Community Internal Medicine in [place], [place] [address] [place] [address] Prudence Mena MPAS P.A.-C. [address] [place] [address] Social History Tobacco Use Types Packs/Day Years Used Date Smoking Tobacco: Former Cigarettes 1.5 0.1 S tarted: 06/21/2024 Passive Smoke Exposure: Past Smokeless Tobacco: Never Alcohol Use Standard Drinks/Week Comments Yes 0 (1 standard drink = 0.6 oz pur e alcohol) socially [facility] Utilities Answer Date Recorded In the past 12 months has [facility] [employer], gas, oil, or water [employer] threatened to shut off services in your [...] How often do you attend voodoo or scientology serv ices? Never 07/27/2022 Do you belong [...] Answer Date Recorded PHQ-2 Score 6 07/10/2024 [facility] [place] of Occupat ional Health - Occupational Stress [...] st Contact Info) Description 07/29/2024 10:00 AM SWIMMING POOL SERVICER Infusion Department of Infusion Therapy in [address] [phone] Melinda Isaac, RIBBON INKER, C.N.P. [address] [place] [address] 07/29/2024 2:20 PM SWIMMING POOL SERVICER Office Visit Department of Community Internal Medicine in [place], [place] 300 [facility] [phone] Prudence Mena MPAS, P.A.-C. [address] [place] [phone] 07/30/2024 9:00 AM SWIMMING POOL SERVICER Infusion Department of Infusion Therapy in [address] [address] Melinda Isaac APRN, C.N.P. [address] [place] [phone] 07/31/2024 8:00 AM SWIMMING POOL SERVICER Infusion Department of Infusion Therapy in [address] [address] Melinda Isaac APRN, C.N.P. [address] [place] [phone] 08/01/2024 7:00 AM SWIMMING POOL SERVICER Infusion Department of Infusion Therapy in [address] [address] Melinda Isaac APRN, C.N.P. [address] [place] [phone] 08/02/2024 9:00 AM SWIMMING POOL SERVICER Infusion Department of Infusion Therapy in [address] [address] Melinda Isaac APRN, C.N.P. [address] [place] [phone] 08/02/2024 12:30 PM SWIMMING POOL SERVICER Clinical Communication Virtual Review in [place], [place] 200 [place] [address] 08/03/2024 9:00 AM SWIMMING POOL SERVICER Infusion Department of Infusion Therapy in [address] [phone] Melinda Isaac, FRED, C.N.P. [address] [place] [phone] 08/04/2024 9:00 AM SWIMMING POOL SERVICER Infusion Department of Infusion Therapy in [address] [phone] Melinda Isaac APRN, C.N.P. [address] [place] [phone] 08/05/2024 8:45 AM SWIMMING POOL SERVICER Appointment Department of Radiology, [facility], in [place], [place] [address] [place] [phone] Kayleigh Small M.D. [address] [place] [phone] 08/05/2024 9:00 AM SWIMMING POOL SERVICER Infusion Department of Infusion Therapy in [address] [phone] Melinda Isaac APRN, C.N.P. [address] [place] [phone] 08/05/2024 11:00 AM SWIMMING POOL SERVICER Office Visit Section of Infectious Diseases in [place], [place] [address] [place] [phone] Kayleigh Small M.D. [address] [place] [phone] 08/06/2024 9:00 AM SWIMMING POOL SERVICER Infusion Department of Infusion Therapy in [address] [address] Melinda Isaac APRN, C.N.P. [address] [place] [phone] 08/07/2024 9:00 AM SWIMMING POOL SERVICER Infusion Department of Infusion Therapy in [address] [address] Melinda Isaac APRN, C.N.P. [address] [place] [phone] 08/08/2024 9:00 AM SWIMMING POOL SERVICER Infusion Department of Infusion Therapy in [address] [address] Melinda Isaac APRN, C.N.P. [address] [place] [phone] 08/09/2024 9:00 AM SWIMMING POOL SERVICER Infusion Department of Infusion Therapy in [address] [address] Melinda Isaac APRN, C.N.P. [address] [place] [phone] 08/10/2024 9:00 AM SWIMMING POOL SERVICER Infusion Department of Infusion Therapy in [address] [phone] Melinda Isaac APRN, C.N.P. [address] [place] [phone] 08/11/2024 9:00 AM SWIMMING POOL SERVICER Infusion Department of Infusion Therapy in [address] [address] Melinda Isaac APRN, C.N.P. [address] [place] [phone] 08/12/2024 9:00 AM SWIMMING POOL SERVICER Infusion Department of Infusion Therapy in [address] [address] Melinda Isaac APRN, C.N.P. [address] [place] [phone] 08/13/2024 8:30 AM SWIMMING POOL SERVICER Infusion Department of Infusion Therapy in [address] [address] Melinda Isaac APRN, C.N.P. [address] [place] [phone] 08/14/2024 9:00 AM SWIMMING POOL SERVICER Infusion Department of Infusion Therapy in [address] [address] Melinda Isaac APRN, C.N.P. [address] [place] [phone] 08/15/2024 9:00 AM SWIMMING POOL SERVICER Infusion Department of Infusion Therapy in [address] [phone] Melinda Isaac APRN, C.N.P. [address] [place] [phone] 08/16/2024 9:00 AM SWIMMING POOL SERVICER Infusion Department of Infusion Therapy in [address] [address] Melinda Isaac APRN, C.N.P. [address] [place] [phone] 08/17/2024 9:00 AM SWIMMING POOL SERVICER Infusion Department of Infusion Therapy in [address] [address] Melinda Isaac APRN, C.N.P. [address] [place] [phone] 08/18/2024 9:00 AM SWIMMING POOL SERVICER Infusion Department of Infusion Therapy in [address] [address] Melinda Isaac APRN, C.N.P. [address] [place] [phone] documented as of this encounter Visit Diagnoses Not on filedocumented in this encounter Additional Health Concerns Assessment Noted Time PHQ-9 Depression Total Score: 22 025 7:19 PM SWIMMING POOL SERVICER documented as of this encounter Care Teams Food Demonstrator Relationship Specialty Start Date End Date Prudence Mena MPAS, P.A.-C. [address] [place] [phone] PCP - General Internal Medicine 02/08/24 documented as of this encounter
--- OUTSIDE RECORDS SUMMARY | 2024-07-28 22:49 | XMS_ITS | Encounter Summary ---
Author Organization [facility] Address [address] [place] [address] Care Team Providers Care Drug Safety Associate Name Role Phone Prudence Mena P.A.-CDmitry Primary Care Pro vider Reason for Referral * MRI/CAT/PET Scan (Routine) - Closed Specialty Diagnoses / Procedures Referred By Chrisac t Referred To Contact Radiology Diagnoses Pneumonia Procedures CT Chest with IV Contrast Prudence Mena MPAS, P.A.-C. [address] [place] [address] Phone: tel: fax: [facility] Region Referral ID Status Reason Start Date Expiration Date Visits Re quested Visits Authorized [id number] Closed 07/12/2024 07/12/2025 1 1 NESS MANAGEMENT SPECIALIST Reason for Visit * MRI/CAT/PET Scan (Routine) - Closed Specialty Diagnoses / Procedures Referred By Contac t Referred To Contact Radiology Diagnoses Pneumonia Procedures CT Chest with IV Contrast Prudence Mena MPAS P.A.-C. [address] [place] [address] Phone: tel: fax: [facility] Region Referral ID Status Reason Start Date Expiration Date Visits Re quested Visits Authorized [id number] Closed 07/12/2024 07/12/2025 1 1 Encounter Details Date Type Department Care Team (Latest Contact Info) Description 07/24/2024 9:03 AM BUSINESS MANAGEMENT SPECIALIST - 07/24/2024 11:59 PM BUSINESS MANAGEMENT SPECIALIST Hospital Encounter Department of Radiology in [address] [place] [address] Prudence Mena MPAS, P.A.-C. [address] [facility] [phone] Pneumonia Discharge Disposition: Home or Self Care Social History Tobacco Use Types Packs/Day Years Used Date Smoking Tobacco: Former Cigarettes 1.5 0.1 S tarted: 06/21/2024 Passive Smoke Exposure: Past Smokeless Tobacco: Never Alcohol Use Standard Drinks/Week Comments Yes 0 (1 standard drink = 0.6 oz pur e alcohol) socially [facility] Utilities Answer Date Recorded In the past 12 months has e [employer], gas, oil, or water [employer] threatened to shut off services in your [...] How often do you attend zoroastrian or adventism serv ices? Never 07/27/2022 Do you belong [...] Answer Date Recorded PHQ-2 Score 6 07/10/2024 [facility] - Occupational Stress Questionnaire Answer [...] muscle spasms. 45 tablet 07/20/2024 10:13 AM BUSINESS MANAGEMENT SPECIALIST 07/19/2024 metroNIDAZOLE (FlagyL) 500 mg tabletIndication s:Empyema Take 1 tablet (500 mg total) by mouth 3 (three) times a day for 17 days Indications: Empyema. 51 tablet 07/20/2024 10:13 AM BUSINESS MANAGEMENT SPECIALIST 07/19/2024 multivitamin capsule Take 1 capsule by [...] 4.5 mg by mouth at bedtime. 10/11/2022 cefTRIAXone in dextrose, iso osm, (Rocephin) 2 gram/50 mL IVBPIndications: Empyema Pleural (HCC) Infuse 50 mL (2 g total) into a venous catheter daily for 17 days. Victor ITC 07/19/2024 5 DME CPAPIndications: Obstructive Sleep Apnea Adult DME Order 1 each 01/25/2024 nitrofurantoin (MACRODANTIN) 50 mg capsule TAKE ONE CAPSULE BY MOUTH ONE TIME DAILY 90 capsule 3 04/21/2023 oxyCODONE (Roxicodone) 5 mg immediate release tabletIndication s:Acute Pain Exception Take 1 tablet (5 mg total) by mouth every 4 (four) hours as needed for moderate pain or score 4-6 of 10 (for breakthrough pain) Indication: Acute Pain Exception. 28 tablet 07/20/2024 10:13 AM BUSINESS MANAGEMENT SPECIALIST 07/19/2024 5 documented as of this encounter Plan of Treatment Upcoming Encounters Date Type Department Care Team (Late st Contact Info) Description 07/29/2024 10:00 AM BUSINESS MANAGEMENT SPECIALIST Infusion Department of Infusion Therapy in [address] [phone] Melinda Isaac, FRED, C.N.P. [address] [place] [phone] 07/29/2024 2:20 PM BUSINESS MANAGEMENT SPECIALIST Office Visit Department of Community Internal Medicine in [place], [place] 300 [facility] [phone] Prudence Mena MPAS, P.A.-C. [address] [place] [phone] 07/30/2024 9:00 AM BUSINESS MANAGEMENT SPECIALIST Infusion Department of Infusion Therapy in [address] [address] Melinda Isaac APRN, C.N.P. [address] [place] [phone] 07/31/2024 8:00 AM BUSINESS MANAGEMENT SPECIALIST Infusion Department of Infusion Therapy in [address] [address] Melinda Isaac APRN, C.N.P. [address] [place] [phone] 08/01/2024 7:00 AM BUSINESS MANAGEMENT SPECIALIST Infusion Department of Infusion Therapy in [address] [address] Melinda Isaac APRN, C.N.P. [address] [place] [phone] 08/02/2024 9:00 AM BUSINESS MANAGEMENT SPECIALIST Infusion Department of Infusion Therapy in [address] [address] Melinda Isaac APRN, C.N.P. [address] [place] [phone] 08/02/2024 12:30 PM BUSINESS MANAGEMENT SPECIALIST Clinical Communication Virtual Review in [place], [place] 200 [place] [phone] 08/03/2024 9:00 AM BUSINESS MANAGEMENT SPECIALIST Infusion Department of Infusion Therapy in [address] [phone] Melinda Isaac APRN, C.N.P. [address] [place] [phone] 08/04/2024 9:00 AM BUSINESS MANAGEMENT SPECIALIST Infusion Department of Infusion Therapy in [address] [phone] Melinda Isaac APRN, C.N.P. [address] [place] [phone] 08/05/2024 8:45 AM BUSINESS MANAGEMENT SPECIALIST Appointment Department of Radiology, [facility], in [place], [place] [address] [place] [phone] Kayleigh Small M.D. [address] [place] [phone] 08/05/2024 9:00 AM BUSINESS MANAGEMENT SPECIALIST Infusion Department of Infusion Therapy in [address] [phone] Melinda Isaac APRN, C.N.P. [address] [place] [phone] 08/05/2024 11:00 AM BUSINESS MANAGEMENT SPECIALIST Office Visit Section of Infectious Diseases in [place], [place] [address] [place] [phone] Kayleigh Small M.D. [address] [place] [phone] 08/06/2024 9:00 AM BUSINESS MANAGEMENT SPECIALIST Infusion Department of Infusion Therapy in [address] [phone] Melinda Isaca APRN, C.N.P. [address] [place] [phone] 08/07/2024 9:00 AM BUSINESS MANAGEMENT SPECIALIST Infusion Department of Infusion Therapy in [address] [address] Melinda Isaac APRN, C.N.P. [address] [place] [phone] 08/08/2024 9:00 AM BUSINESS MANAGEMENT SPECIALIST Infusion Department of Infusion Therapy in [address] [phone] Melinda Isaac APRN, C.N.P. [address] [place] [phone] 08/09/2024 9:00 AM BUSINESS MANAGEMENT SPECIALIST Infusion Department of Infusion Therapy in [address] [phone] Melinda Isaac APRN, C.N.P. [address] [place] [phone] 08/10/2024 9:00 AM BUSINESS MANAGEMENT SPECIALIST Infusion Department of Infusion Therapy in [address] [phone] Melinda Isaac APRN, C.N.P. [address] [place] [phone] 08/11/2024 9:00 AM BUSINESS MANAGEMENT SPECIALIST Infusion Department of Infusion Therapy in [address] [phone] Melinda Isaac APRN, C.N.P. [address] [place] [phone] 08/12/2024 9:00 AM BUSINESS MANAGEMENT SPECIALIST Infusion Department of Infusion Therapy in [address] [address] Melinda Isaac APRN, C.N.P. [address] [place] [phone] 08/13/2024 8:30 AM BUSINESS MANAGEMENT SPECIALIST Infusion Department of Infusion Therapy in [address] [phone] Melinda Isaac APRN, C.N.P. [address] [place] [phone] 08/14/2024 9:00 AM BUSINESS MANAGEMENT SPECIALIST Infusion Department of Infusion Therapy in [address] [address] Melinda Isaac APRN, C.N.P. [address] [place] [phone] 08/15/2024 9:00 AM BUSINESS MANAGEMENT SPECIALIST Infusion Department of Infusion Therapy in [address] [address] Melinda Isaac APRN, C.N.P. [address] [place] [phone] 08/16/2024 9:00 AM BUSINESS MANAGEMENT SPECIALIST Infusion Department of Infusion Therapy in [address] [place] [address] Melinda Isaac APRN, C.N.P. [address] [place] [phone] 08/17/2024 9:00 AM BUSINESS MANAGEMENT SPECIALIST Infusion Department of Infusion Therapy in [address] [address] Melinda Isaac APRN, C.N.P. [address] [place] [phone] 08/18/2024 9:00 AM BUSINESS MANAGEMENT SPECIALIST Infusion Department of Infusion Therapy in [address] [phone] Melinda Isaac APRN, C.N.P. [address] [place] [phone] documented as of this encounter Procedures Procedure Name Priority Date/Time Associated Diagnosis Comments CT CHEST WITH IV CONTRAST RAD - Routine (most inpatients and all outpatients) 07/24/2024 10:24 AM BUSINESS MANAGEMENT SPECIALIST Pneumonia documented in this encounter Results * CT Chest with IV Contrast (07/24/2024 10:24 AM BUSINESS MANAGEMENT SPECIALIST) Anatomical Region Laterality Modality Chest, Thoracic RST LOS, Tho racic ARZ LOS, Thoracic ARZ LOS, Thoracic FLA LOS N/A Computed Tomography 07/24/2024 10:2 2 AM BUSINESS MANAGEMENT SPECIALIST Impressions 07/24/2024 11:16 AM BUSINESS MANAGEMENT SPECIALIST Pneumonia and small left pleural effusion. Narrative 07/24/2024 11:16 AM BUSINESS MANAGEMENT SPECIALIST EXAM: CT CHEST WITH IV CONTRAST COMPARISON: [...] For 1 dose Given 07/24/2024 10:16 AM BUSINESS MANAGEMENT SPECIALIST 80 mL sodium chloride 0.9 % flush 80 mL 80 mL, intravenous, Once, On Mon07/24/24 at 0930, For 1 dose Given 07/24/2024 10:19 AM BUSINESS MANAGEMENT SPECIALIST 80 mL sodium chloride 0.9 % injection 10 mL 10 mL, intravenous, Once, On Mon07/24/24 at 0930, For 1 dose Given 07/24/2024 10:19 AM BUSINESS MANAGEMENT SPECIALIST 10 mL documented in this encounter Additional Health Concerns Assessment Noted Time PHQ-9 Depression Total Score: 025 7:19 PM BUSINESS MANAGEMENT SPECIALIST documented as of this encounter Care Teams Drug Safety Associate Relationship Specialty Start Date End Date Prudence Mena MPAS, P.A.-C. 300 [facility] [place] [phone] PCP - General Internal Medicine 02/08/24 documented as of this encounter
--- OUTSIDE RECORDS SUMMARY | 2024-07-28 22:49 | XMS_ITS | Encounter Summary ---
Author Organization [facility] Address [address] [place] [address] Care Team Providers Care Global Regulatory Affairs Manager Name Role Phone Prudence Mena P.A.-C. Primary Care Pro vider Reason for Visit * Reason Comments Outpatient Infusion Rocephin Encounter Details Date Type Department Care Team (Late st Contact Info) Description 07/24/2024 9:00 AM PUBLIC HEALTH TRAINING ASSISTANT Infusion Department of Infusion Therapy in [address] [phone] Melinda Isaac, FRED, C.N.P. [address] [place] [phone] Empyema Pleural (HCC) (Primary Dx) Social History Tobacco Use Types Packs/Day Years Used Date Smoking Tobacco: Former Cigarettes 1.5 0.1 S tarted: 06/21/2024 Passive Smoke Exposure: Past Smokeless Tobacco: Never Alcohol Use Standard Drinks/Week Comments Yes 0 (1 standard drink = 0.6 oz pur e alcohol) socially [facility] Utilities Answer Date Recorded In the [...] Never 07/27/2022 How often do you attend amish or congregational serv ices? Never 07/27/2022 Do you belong to any clubs o r organizations such as amish groups, unions, fraternal or athletic groups, or [...] Answer Date Recorded PHQ-2 Score 6 07/10/2024 [facility] - Occupational Stress [...] Comments Blood Pressure 131/82 07/24/2024 9:20 AM PUBLIC HEALTH TRAINING ASSISTANT Pulse 110 07/24/2024 9:20 AM PUBLIC HEALTH TRAINING ASSISTANT Temperature 36.6 C (97.9 F) 07/24/2024 9:20 AM PUBLIC HEALTH TRAINING ASSISTANT Respiratory Rate 16 07/24/2024 9:20 AM PUBLIC HEALTH TRAINING ASSISTANT Oxygen Saturation 94% 07/24/2024 9:20 AM PUBLIC HEALTH TRAINING ASSISTANT Inhaled Oxygen Concentration - - Weight - - Height - - Body Mass Index - - documented in this encounter Plan of Treatment Upcoming Encounters Date Type Department Care Team (Late st Contact Info) Description 07/29/2024 10:00 AM PUBLIC HEALTH TRAINING ASSISTANT Infusion Department of Infusion Therapy in [address] [phone] Melinda Isaac APRN, C.N.P. [address] [place] [phone] 07/29/2024 2:20 PM PUBLIC HEALTH TRAINING ASSISTANT Office Visit Department of Community Internal Medicine in [place], [place] 300 [place] [phone] Prudence Mena MPAS, P.A.-C. [address] [place] [phone] 07/30/2024 9:00 AM PUBLIC HEALTH TRAINING ASSISTANT Infusion Department of Infusion Therapy in [address] [address] Melinda Isaac APRN, C.N.P. [address] [place] [phone] 07/31/2024 8:00 AM PUBLIC HEALTH TRAINING ASSISTANT Infusion Department of Infusion Therapy in [address] [address] Melinda Isaac APRN, C.N.P. [address] [place] [phone] 08/01/2024 7:00 AM PUBLIC HEALTH TRAINING ASSISTANT Infusion Department of Infusion Therapy in [address] [address] Melinda Isaac APRN, C.N.P. [address] [place] [phone] 08/02/2024 9:00 AM PUBLIC HEALTH TRAINING ASSISTANT Infusion Department of Infusion Therapy in [address] [phone] Melinda Isaac APRN, C.N.P. [address] [place] [phone] 08/02/2024 12:30 PM PUBLIC HEALTH TRAINING ASSISTANT Clinical Communication Virtual Review in [place], [place] 200 [place] [phone] 08/03/2024 9:00 AM PUBLIC HEALTH TRAINING ASSISTANT Infusion Department of Infusion Therapy in [address] [phone] Melinda Isaac APRN, C.N.P. [address] [place] [phone] 08/04/2024 9:00 AM PUBLIC HEALTH TRAINING ASSISTANT Infusion Department of Infusion Therapy in [address] [phone] Melinda Isaac APRN, C.N.P. [address] [place] [phone] 08/05/2024 8:45 AM PUBLIC HEALTH TRAINING ASSISTANT Appointment Department of Radiology, [facility], in [place], [place] [address] [place] [phone] Kayleigh Small M.D. [address] [place] [phone] 08/05/2024 9:00 AM PUBLIC HEALTH TRAINING ASSISTANT Infusion Department of Infusion Therapy in [address] [phone] Melinda Isaac APRN, C.N.P. [address] [place] [phone] 08/05/2024 11:00 AM PUBLIC HEALTH TRAINING ASSISTANT Office Visit Section of Infectious Diseases in [place], [place] [address] [place] [phone] Kayleigh Small M.D. [address] [place] [phone] 08/06/2024 9:00 AM PUBLIC HEALTH TRAINING ASSISTANT Infusion Department of Infusion Therapy in [address] [phone] Melinda Isaac APRN, C.N.P. [address] [place] [phone] 08/07/2024 9:00 AM PUBLIC HEALTH TRAINING ASSISTANT Infusion Department of Infusion Therapy in [address] [phone] Melinda Isaac APRN, C.N.P. [address] [place] [phone] 08/08/2024 9:00 AM PUBLIC HEALTH TRAINING ASSISTANT Infusion Department of Infusion Therapy in [address] [address] Melinda Isaac APRN, C.N.P. [address] [place] [phone] 08/09/2024 9:00 AM PUBLIC HEALTH TRAINING ASSISTANT Infusion Department of Infusion Therapy in [address] [address] Melinda Isaac APRN, C.N.P. [address] [place] [phone] 08/10/2024 9:00 AM PUBLIC HEALTH TRAINING ASSISTANT Infusion Department of Infusion Therapy in [address] [phone] Melinda Isaac APRN, C.N.P. [address] [place] [phone] 08/11/2024 9:00 AM PUBLIC HEALTH TRAINING ASSISTANT Infusion Department of Infusion Therapy in [address] [address] Melinda Isaac APRN, C.N.P. [address] [place] [phone] 08/12/2024 9:00 AM PUBLIC HEALTH TRAINING ASSISTANT Infusion Department of Infusion Therapy in [address] [phone] Melinda Isaac APRN, C.N.P. [address] [place] [phone] 08/13/2024 8:30 AM PUBLIC HEALTH TRAINING ASSISTANT Infusion Department of Infusion Therapy in [address] [address] Melinda Isaac APRN, C.N.P. [address] [place] [phone] 08/14/2024 9:00 AM PUBLIC HEALTH TRAINING ASSISTANT Infusion Department of Infusion Therapy in [address] [address] Melinda Isaac APRN, C.N.P. [address] [place] [phone] 08/15/2024 9:00 AM PUBLIC HEALTH TRAINING ASSISTANT Infusion Department of Infusion Therapy in [address] [phone] Melinda Isaac APRN, C.N.P. [address] [place] [phone] 08/16/2024 9:00 AM PUBLIC HEALTH TRAINING ASSISTANT Infusion Department of Infusion Therapy in [address] [address] Melinda Isaac APRN, C.N.P. [address] [place] [phone] 08/17/2024 9:00 AM PUBLIC HEALTH TRAINING ASSISTANT Infusion Department of Infusion Therapy in [address] [address] Melinda Isaac APRN, C.N.P. [address] [place] [phone] 08/18/2024 9:00 AM PUBLIC HEALTH TRAINING ASSISTANT Infusion Department of Infusion Therapy in [address] [phone] Melinda Isaac APRN, C.N.P. [address] [place] [phone] documented as of this encounter Visit Diagnoses [...] infection, community acquired Given 07/24/2024 9:33 AM PUBLIC HEALTH TRAINING ASSISTANT 2 g sodium chloride 0.9 % injection 10-30 mL 10-30 mL, intravenous, As needed, line care, Starting on Mon07/24/24 at 0917, Prior to and following infusion, between multiple consecutive infusions.10 mL to each lumen.Indications:Empyema Pleural (HCC) Given 07/24/2024 9:43 AM PUBLIC HEALTH TRAINING ASSISTANT 10 mL Given 07/24/2024 9:30 AM PUBLIC HEALTH TRAINING ASSISTANT 10 mL documented in this encounter Additional Health Concerns Assessment Noted Time PHQ-9 Depression Total Score: 22 025 7:19 PM PUBLIC HEALTH TRAINING ASSISTANT documented as of this encounter Care Teams Global Regulatory Affairs Manager Relationship Specialty Start Date End Date Prudence Mena MPAS, P.A.-C. [address] [place] [address] PCP - General Internal Medicine 02/08/24 documented as of this encounter
--- OUTSIDE RECORDS SUMMARY | 2024-07-28 22:49 | XMS_ITS | Encounter Summary ---
Author Organization [facility] Address [address] [place] [address] Care Team Providers Care Packing Supervisor Name Role Phone Prudence Mena P.A.-C. Primary Care Pro vider Reason for Visit * Reason Onset Date Comments Reschedule 07/23/2024 Encounter Details Date Type Department Care Team (Late st Contact Info) Description 07/23/2024 Clinical Communication Department of Infusion Therapy in [place], [place] [address] [place] [phone] Tita Bell R.N. [address] [place] [phone] Reschedule Social History Tobacco Use Types Packs/Day Years Used Date Smoking Tobacco: Former Cigarettes 1.5 0.1 S tarted: 06/21/2024 Passive Smoke Exposure: Past Smokeless Tobacco: Never Alcohol Use Standard Drinks/Week Comments Yes 0 (1 standard drink = 0.6 oz pur e alcohol) socially [facility] Utilities Answer Date Recorded In the past 12 months has [facility] [email or web address], gas, oil, or water [employer] threatened to shut off services in [...] Never 07/27/2022 How often do you attend evangelical or gnosticist serv ices? Never 07/27/2022 Do you belong to any clubs o r organizations such as evangelical groups, unions, fraternal or athletic groups, or [...] Answer Date Recorded PHQ-2 Score 6 07/10/2024 [facility] [place] of Occupat ional Health - Occupational Stress [...] st Contact Info) Description 07/29/2024 10:00 AM DISABILITY SPECIALIST Infusion Department of Infusion Therapy in [address] [phone] Melinda Isaac, FRED, C.N.P. [address] [place] [address] 07/29/2024 2:20 PM DISABILITY SPECIALIST Office Visit Department of Community Internal Medicine in [place], [place] [address] [facility] [place] [phone] Prudence Mena MPAS, P.A.-C. 300 [place] [phone] 07/30/2024 9:00 AM DISABILITY SPECIALIST Infusion Department of Infusion Therapy in [address] [address] Melinda Isaac APRN, C.N.P. [address] [place] [phone] 07/31/2024 8:00 AM DISABILITY SPECIALIST Infusion Department of Infusion Therapy in [address] [address] Melinda Isaac APRN, C.N.P. [address] [place] [phone] 08/01/2024 7:00 AM DISABILITY SPECIALIST Infusion Department of Infusion Therapy in [address] [address] Melinda Isaac APRN, C.N.P. [address] [place] [phone] 08/02/2024 9:00 AM DISABILITY SPECIALIST Infusion Department of Infusion Therapy in [address] [address] Melinda Isaac APRN, C.N.P. [address] [place] [phone] 08/02/2024 12:30 PM DISABILITY SPECIALIST Clinical Communication Virtual Review in [place], [place] 200 [place] [address] 08/03/2024 9:00 AM DISABILITY SPECIALIST Infusion Department of Infusion Therapy in [address] [phone] Melinda Isaac APRN, C.N.P. [address] [place] [phone] 08/04/2024 9:00 AM DISABILITY SPECIALIST Infusion Department of Infusion Therapy in [address] [phone] Melinda Isaac APRN, C.N.P. [address] [place] [phone] 08/05/2024 8:45 AM DISABILITY SPECIALIST Appointment Department of Radiology, [facility], in [place], [place] [address] [place] [phone] Kayleigh Small M.D. [address] [place] [phone] 08/05/2024 9:00 AM DISABILITY SPECIALIST Infusion Department of Infusion Therapy in [address] [address] Melinda Isaac APRN, C.N.P. [address] [place] [phone] 08/05/2024 11:00 AM DISABILITY SPECIALIST Office Visit Section of Infectious Diseases in [address] [address] Kayleigh Small M.D. [address] [place] [phone] 08/06/2024 9:00 AM DISABILITY SPECIALIST Infusion Department of Infusion Therapy in [address] [address] Melinda Isaac APRN, C.N.P. [address] [place] [phone] 08/07/2024 9:00 AM DISABILITY SPECIALIST Infusion Department of Infusion Therapy in [address] [address] Melinda Isaac APRN, C.N.P. [address] [place] [phone] 08/08/2024 9:00 AM DISABILITY SPECIALIST Infusion Department of Infusion Therapy in [address] [address] Melinda Isaac APRN, C.N.P. [address] [place] [phone] 08/09/2024 9:00 AM DISABILITY SPECIALIST Infusion Department of Infusion Therapy in [address] [address] Melinda Isaac APRN, C.N.P. [address] [place] [phone] 08/10/2024 9:00 AM DISABILITY SPECIALIST Infusion Department of Infusion Therapy in [address] [address] Melinda Isaac APRN, C.N.P. [address] [place] [phone] 08/11/2024 9:00 AM DISABILITY SPECIALIST Infusion Department of Infusion Therapy in [address] [address] Melinda Isaac APRN, C.N.P. [address] [place] [phone] 08/12/2024 9:00 AM DISABILITY SPECIALIST Infusion Department of Infusion Therapy in [address] [address] Melinda Isaac APRN, C.N.P. [address] [place] [phone] 08/13/2024 8:30 AM DISABILITY SPECIALIST Infusion Department of Infusion Therapy in [address] [address] Melinda Isaac APRN, C.N.P. [address] [place] [phone] 08/14/2024 9:00 AM DISABILITY SPECIALIST Infusion Department of Infusion Therapy in [address] [address] Melinda Isaac APRN, C.N.P. [address] [place] [phone] 08/15/2024 9:00 AM DISABILITY SPECIALIST Infusion Department of Infusion Therapy in [address] [address] Melinda Isaac APRN, C.N.P. [address] [place] [phone] 08/16/2024 9:00 AM DISABILITY SPECIALIST Infusion Department of Infusion Therapy in [address] [address] Melinda Isaac APRN, C.N.P. [address] [place] [phone] 08/17/2024 9:00 AM DISABILITY SPECIALIST Infusion Department of Infusion Therapy in [address] [phone] Melinda Isaac APRN, C.N.P. [address] [place] [phone] 08/18/2024 9:00 AM DISABILITY SPECIALIST Infusion Department of Infusion Therapy in [address] [address] Melinda Isaac APRN, C.N.P. [address] [place] [phone] documented as of this encounter Visit Diagnoses Not on filedocumented in this encounter Additional Health Concerns Assessment Noted Time PHQ-9 Depression Total Score: 22 025 7:19 PM DISABILITY SPECIALIST documented as of this encounter Care Teams Packing Supervisor Relationship Specialty Start Date End Date Prudence Mena MPAS, P.A.-C. [address] [place] [phone] PCP - General Internal Medicine 02/08/24 documented as of this encounter
--- OUTSIDE RECORDS SUMMARY | 2024-07-28 22:49 | XMS_ITS | Encounter Summary ---
Author Organization [facility] Address [address] [place] [address] Care Team Providers Care Ordnance Equipment Worker Name Role Phone Prudence Mena P.A.-C. Primary Care Pro vider Encounter Details Date Type Department Care Team (Late st Contact Info) Description 07/25/2024 Orders Only Division of Thoracic Surgery in [place], [place] [address] [place] [phone] Eveline Mariscal, PDmitryADmitry-C. [address] [place] [address] Social History Tobacco Use Types Packs/Day Years Used Date Smoking Tobacco: Former Cigarettes 1.5 0.1 S tarted: 06/21/2024 Passive Smoke Exposure: Past Smokeless Tobacco: Never Alcohol Use Standard Drinks/Week Comments Yes 0 (1 standard drink = 0.6 oz pur e alcohol) socially [facility] Utilities Answer Date Recorded In the past 12 months has [employer], gas, oil, or water [employer] threatened to shut off services in your [...] How often do you attend buddhist or yarsanism serv ices? Never 07/27/2022 Do [...] Answer Date Recorded PHQ-2 Score 6 07/10/2024 [facility] of Occupat ional Health - [...] st Contact Info) Description 07/29/2024 10:00 AM INSPECTOR BOILER Infusion Department of Infusion Therapy in [address] [address] Melinda Isaac, FRED, C.N.P. [address] [facility] [place] [address] 07/29/2024 2:20 PM INSPECTOR BOILER Office Visit Department of Community Internal Medicine in [place], [place] 300 [place] [phone] Prudence Mena, LATONIAS, P.A.-C. 300 [place] [phone] 07/30/2024 9:00 AM INSPECTOR BOILER Infusion Department of Infusion Therapy in [address] [address] Melinda Isaac APRN, C.N.P. [address] [place] [phone] 07/31/2024 8:00 AM INSPECTOR BOILER Infusion Department of Infusion Therapy in [address] [address] Melinda Isaac APRN, C.N.P. [address] [place] [phone] 08/01/2024 7:00 AM INSPECTOR BOILER Infusion Department of Infusion Therapy in [address] [address] Melinda Isaac APRN, C.N.P. [address] [place] [phone] 08/02/2024 9:00 AM INSPECTOR BOILER Infusion Department of Infusion Therapy in [address] [address] Melinda Isaac APRN, C.N.P. [address] [place] [phone] 08/02/2024 12:30 PM INSPECTOR BOILER Clinical Communication Virtual Review in [place], [place] 200 [place] [address] 08/03/2024 9:00 AM INSPECTOR BOILER Infusion Department of Infusion Therapy in [address] [phone] Melinda Isaac APRN, C.N.P. [address] [place] [phone] 08/04/2024 9:00 AM INSPECTOR BOILER Infusion Department of Infusion Therapy in [address] [phone] Melinda Isaac APRN, C.N.P. [address] [place] [phone] 08/05/2024 8:45 AM INSPECTOR BOILER Appointment Department of Radiology, [facility], in [address] [phone] Kayleigh Small M.D. [address] [place] [phone] 08/05/2024 9:00 AM INSPECTOR BOILER Infusion Department of Infusion Therapy in [address] [address] Melinda Isaac APRN, C.N.P. [address] [place] [phone] 08/05/2024 11:00 AM INSPECTOR BOILER Office Visit Section of Infectious Diseases in [address] [address] Kayleigh Small M.D. [address] [place] [phone] 08/06/2024 9:00 AM INSPECTOR BOILER Infusion Department of Infusion Therapy in [address] [address] Melinda Isaac APRN, C.N.P. [address] [place] [phone] 08/07/2024 9:00 AM INSPECTOR BOILER Infusion Department of Infusion Therapy in [address] [address] Melinda Isaac APRN, C.N.P. [address] [place] [phone] 08/08/2024 9:00 AM INSPECTOR BOILER Infusion Department of Infusion Therapy in [address] [address] Melinda Isaac APRN, C.N.P. [address] [place] [phone] 08/09/2024 9:00 AM INSPECTOR BOILER Infusion Department of Infusion Therapy in [address] [address] Melinda Isaac APRN, C.N.P. [address] [place] [phone] 08/10/2024 9:00 AM INSPECTOR BOILER Infusion Department of Infusion Therapy in [address] [address] Melinda Isaac APRN, C.N.P. [address] [place] [phone] 08/11/2024 9:00 AM INSPECTOR BOILER Infusion Department of Infusion Therapy in [address] [address] Melinda Isaac APRN, C.N.P. [address] [place] [phone] 08/12/2024 9:00 AM INSPECTOR BOILER Infusion Department of Infusion Therapy in [address] [address] Melinda Isaac APRN, C.N.P. [address] [place] [phone] 08/13/2024 8:30 AM INSPECTOR BOILER Infusion Department of Infusion Therapy in [address] [address] Melinda Isaac APRN, C.N.P. [address] [place] [phone] 08/14/2024 9:00 AM INSPECTOR BOILER Infusion Department of Infusion Therapy in [address] [address] Melinda Isaac APRN, C.N.P. [address] [place] [phone] 08/15/2024 9:00 AM INSPECTOR BOILER Infusion Department of Infusion Therapy in [address] [address] Melinda Isaac APRN, C.N.P. [address] [place] [phone] 08/16/2024 9:00 AM INSPECTOR BOILER Infusion Department of Infusion Therapy in [address] [address] Melinda Isaac APRN, C.N.P. [address] [place] [phone] 08/17/2024 9:00 AM INSPECTOR BOILER Infusion Department of Infusion Therapy in [address] [address] Melinda Isaac APRN, C.N.P. [address] [place] [phone] 08/18/2024 9:00 AM INSPECTOR BOILER Infusion Department of Infusion Therapy in [address] [address] Melinda Isaac APRN, C.N.P. [address] [place] [phone] documented as of this encounter Visit Diagnoses Not on filedocumented in this encounter Additional Health Concerns Assessment Noted Time PHQ-9 Depression Total Score: 22 025 7:19 PM INSPECTOR BOILER documented as of this encounter Care Teams Ordnance Equipment Worker Relationship Specialty Start Date End Date Prudence Mena MPAS, P.A.-C. [address] [place] [address] PCP - General Internal Medicine 02/08/24 documented as of this encounter
--- OUTSIDE RECORDS SUMMARY | 2024-07-28 22:49 | XMS_ITS | Referral Summary ---
Author Organization [place] Address [address] [place] [address] Care Team Providers Care Slp Teacher Name Role Phone Claudia Morillo MD Primary Care Provider [phone] Social History Tobacco Use Types Packs/Day Years Used Date Smoking Tobacco: Never Assessed Comments Unknown Sex and Gender Information Value Date Recorded Sex Assigned at Not on file Legal Sex Female 3:28 PM CDT Gender Identity Not on file Sexual Orientation Not on file Plan of Treatment Not on file Care Teams Slp Teacher Relationship Specialty Start Date End Date Claudia Morillo MD [facility] [address] [place] [address] PCP - General 02/06/18
--- OUTSIDE RECORDS SUMMARY | 2024-07-28 22:49 | XMS_ITS | Encounter Summary ---
Author Organization [facility] Address [address] [place] [address] Care Team Providers Care Research Librarian Name Role Phone Prudence Mena P.A.-C. Primary Care Pro vider Encounter Details Date Type Department Care Team (Late st Contact Info) Description 07/26/2024 9:00 AM USABILITY ARCHITECT Infusion Department of Infusion Therapy in [address] [address] Melinda Isaac, FRED, C.N.P. [address] [place] [phone] Empyema Pleural (HCC) (Primary Dx) Social History [...] has e electric, gas, oil, or water [employer] threatened to shut off services in [...] Never 07/27/2022 How often do you attend methodist or confucianism serv ices? Never 07/27/2022 Do you belong to any clubs o r organizations such as methodist groups, unions, fraternal or athletic groups, or [...] Answer Date Recorded PHQ-2 Score 6 07/10/2024 [facility]ational Stress Questionnaire [...] Comments Blood Pressure 130/76 07/26/2024 9:00 AM USABILITY ARCHITECT Pulse 106 07/26/2024 9:00 AM USABILITY ARCHITECT Temperature 35.9 C (96.6 F) 07/26/2024 9:00 AM USABILITY ARCHITECT Respiratory Rate 18 07/26/2024 9:00 AM USABILITY ARCHITECT Oxygen Saturation 96% 07/26/2024 9:00 AM USABILITY ARCHITECT Inhaled Oxygen Concentration - - Weight - [...] they are in agreement with this plan. ILITY ARCHITECT documented in this encounter Plan of Treatment Upcoming Encounters Date Type Department Care Team (Late st Contact Info) Description 07/29/2024 10:00 AM USABILITY ARCHITECT Infusion Department of Infusion Therapy in [address] [address] Melinda Isaac APRN, C.N.P. [address] [place] [phone] 07/29/2024 2:20 PM USABILITY ARCHITECT Office Visit Department of Community Internal Medicine in [place], [place] 300 [place] [phone] Prudence Mena MPAS, P.A.-C. 300 [place] [phone] 07/30/2024 9:00 AM USABILITY ARCHITECT Infusion Department of Infusion Therapy in [address] [address] Melinda Isaac APRN, C.N.P. [address] [place] [phone] 07/31/2024 8:00 AM USABILITY ARCHITECT Infusion Department of Infusion Therapy in [address] [address] Melinda Isaac APRN, C.N.P. [address] [place] [phone] 08/01/2024 7:00 AM USABILITY ARCHITECT Infusion Department of Infusion Therapy in [address] [address] Melinda Isaac APRN, C.N.P. [address] [place] [phone] 08/02/2024 9:00 AM USABILITY ARCHITECT Infusion Department of Infusion Therapy in [address] [address] Melinda Isaac APRN, C.N.P. [address] [place] [phone] 08/02/2024 12:30 PM USABILITY ARCHITECT Clinical Communication Virtual Review in [place], [place] 200 [place] [address] 08/03/2024 9:00 AM USABILITY ARCHITECT Infusion Department of Infusion Therapy in [address] [address] Melinda Isaac APRN, C.N.P. [address] [place] [phone] 08/04/2024 9:00 AM USABILITY ARCHITECT Infusion Department of Infusion Therapy in [address] [address] Melinda Isaac APRN, C.N.P. [address] [place] [phone] 08/05/2024 8:45 AM USABILITY ARCHITECT Appointment Department of Radiology, [facility], in [place], [place] [address] [place] [phone] Kayleigh Small M.D. [address] [place] [phone] 08/05/2024 9:00 AM USABILITY ARCHITECT Infusion Department of Infusion Therapy in [address] [address] Melinda Isaac APRN, C.N.P. [address] [place] [phone] 08/05/2024 11:00 AM USABILITY ARCHITECT Office Visit Section of Infectious Diseases in [place], [place] [address] [place] [phone] Kayleigh Small M.D. [address] [place] [phone] 08/06/2024 9:00 AM USABILITY ARCHITECT Infusion Department of Infusion Therapy in [address] [address] Melinda Isaac APRN, C.N.P. [address] [place] [phone] 08/07/2024 9:00 AM USABILITY ARCHITECT Infusion Department of Infusion Therapy in [address] [address] Melinda Isaac APRN, C.N.P. [address] [place] [phone] 08/08/2024 9:00 AM USABILITY ARCHITECT Infusion Department of Infusion Therapy in [address] [address] Melinda Isaac APRN, C.N.P. [address] [place] [phone] 08/09/2024 9:00 AM USABILITY ARCHITECT Infusion Department of Infusion Therapy in [address] [address] Melinda Isaac APRN, C.N.P. [address] [place] [phone] 08/10/2024 9:00 AM USABILITY ARCHITECT Infusion Department of Infusion Therapy in [address] [address] Melinda Isaac APRN, C.N.P. [address] [place] [phone] 08/11/2024 9:00 AM USABILITY ARCHITECT Infusion Department of Infusion Therapy in [address] [address] Melinda Isaac APRN, C.N.P. [address] [place] [phone] 08/12/2024 9:00 AM USABILITY ARCHITECT Infusion Department of Infusion Therapy in [address] [address] Melinda Isaac APRN, C.N.P. [address] [place] [phone] 08/13/2024 8:30 AM USABILITY ARCHITECT Infusion Department of Infusion Therapy in [address] [address] Melinda Isaac APRN, C.N.P. [address] [place] [phone] 08/14/2024 9:00 AM USABILITY ARCHITECT Infusion Department of Infusion Therapy in [address] [address] Melinda Isaac APRN, C.N.P. [address] [place] [phone] 08/15/2024 9:00 AM USABILITY ARCHITECT Infusion Department of Infusion Therapy in [address] [address] Melinda Isaac APRN, C.N.P. [address] [place] [phone] 08/16/2024 9:00 AM USABILITY ARCHITECT Infusion Department of Infusion Therapy in [address] [address] Melinda Isaac APRN, C.N.P. [address] [place] [phone] 08/17/2024 9:00 AM USABILITY ARCHITECT Infusion Department of Infusion Therapy in [address] [address] Melinda Isaac APRN, C.N.P. [address] [place] [phone] 08/18/2024 9:00 AM USABILITY ARCHITECT Infusion Department of Infusion Therapy in [address] [address] Melinda Isaac APRN, C.N.P. [address] [place] [phone] documented as of this encounter Visit Diagnoses [...] infection, community acquired Given 07/26/2024 8:56 AM USABILITY ARCHITECT 2 g sodium chloride 0.9 % injection 10-30 mL 10-30 mL, intravenous, As needed, line care, Starting on Mon07/26/24 at 0844, Prior to and following infusion, between multiple consecutive infusions.10 mL to each lumen.Indications:Empyema Pleural (HCC) Given 07/26/2024 9:00 AM USABILITY ARCHITECT 10 mL Given 07/26/2024 8:56 AM USABILITY ARCHITECT 10 mL documented in this encounter Additional Health Concerns Assessment Noted Time PHQ-9 Depression Total Score: 22 025 7:19 PM USABILITY ARCHITECT documented as of this encounter Care Teams Research Librarian Relationship Specialty Start Date End Date Prudence Mena MPAS, P.A.-C. [address] [place] [address] PCP - General Internal Medicine 02/08/24 documented as of this encounter
--- OUTSIDE RECORDS SUMMARY | 2024-07-28 22:49 | XMS_ITS | Encounter Summary ---
Author Organization [facility] Address [address] [place] [address] Care Team Providers Care Special Education Case Manager Name Role Phone Prudence Mena P.ADmitry-CDmitry Primary Care Pro vider Encounter Details Date Type Department Care Team (Latest Contact Info) Description 07/11/2024 11:07 AM [facility] Hospital Encounter Department of Laboratory Medicine in [place], [place] [address] [place] [address] Prudence Mena MPAS P.A.-C. [address] [place] [address] Blood In Stool Discharge Disposition: Home or Self Care Social History Tobacco Use Types Packs/Day Years Used Date Smoking Tobacco: Former Cigarettes 1.5 0.1 S tarted: 06/21/2024 Passive Smoke Exposure: Past Smokeless Tobacco: Never Alcohol Use Standard Drinks/Week Comments Yes 0 (1 standard drink = 0.6 oz pur e alcohol) socially [facility] Utilities Answer Date Recorded In the past 12 months has e [employer], gas, oil, or water [employer] threatened to shut off services in your [...] Never 07/27/2022 How often do you attend nondenominational or islam serv ices? Never 07/27/2022 Do you belong to any clubs o r organizations such as nondenominational groups, unions, fraternal or athletic groups, or [...] Answer Date Recorded PHQ-2 Score 6 07/10/2024 [facility] [place] of Occupat ional Health - Occupational Stress [...] st Contact Info) Description 07/29/2024 10:00 AM KELLY MACHINE OPERATOR Infusion Department of Infusion Therapy in [address] [phone] Melinda Isaac APRN, C.N.P. [address] [place] [phone] 07/29/2024 2:20 PM KELLY MACHINE OPERATOR Office Visit Department of Community Internal Medicine in [address] [place] [phone] Prudence Mena MPAS, P.A.-C. 300 [facility] [phone] 07/30/2024 9:00 AM KELLY MACHINE OPERATOR Infusion Department of Infusion Therapy in [address] [address] Melinda Isaac APRN, C.N.P. [address] [place] [phone] 07/31/2024 8:00 AM KELLY MACHINE OPERATOR Infusion Department of Infusion Therapy in [address] [address] Melinda Isaac APRN, C.N.P. [address] [place] [phone] 08/01/2024 7:00 AM KELLY MACHINE OPERATOR Infusion Department of Infusion Therapy in [address] [address] Melinda Isaac APRN, C.N.P. [address] [place] [phone] 08/02/2024 9:00 AM KELLY MACHINE OPERATOR Infusion Department of Infusion Therapy in [address] [address] Melinda Isaac APRN, C.N.P. [address] [place] [phone] 08/02/2024 12:30 PM KELLY MACHINE OPERATOR Clinical Communication Virtual Review in [place], [place] 200 [place] [phone] 08/03/2024 9:00 AM KELLY MACHINE OPERATOR Infusion Department of Infusion Therapy in [address] [address] Melinda Isaac APRN, C.N.P. [address] [place] [phone] 08/04/2024 9:00 AM KELLY MACHINE OPERATOR Infusion Department of Infusion Therapy in [address] [address] Melinda Isaac APRN, C.N.P. [address] [place] [phone] 08/05/2024 8:45 AM KELLY MACHINE OPERATOR Appointment Department of Radiology, [facility], in [place], [place] [address] [place] [phone] Kayleigh Small M.D. [address] [place] [phone] 08/05/2024 9:00 AM KELLY MACHINE OPERATOR Infusion Department of Infusion Therapy in [address] [address] Melinda Isaac APRN, C.N.P. [address] [place] [phone] 08/05/2024 11:00 AM KELLY MACHINE OPERATOR Office Visit Section of Infectious Diseases in [address] [phone] Kayleigh Small M.D. [address] [place] [phone] 08/06/2024 9:00 AM KELLY MACHINE OPERATOR Infusion Department of Infusion Therapy in [address] [phone] Melinda Isaac APRN, C.N.P. [address] [place] [phone] 08/07/2024 9:00 AM KELLY MACHINE OPERATOR Infusion Department of Infusion Therapy in [address] [address] Melinda Isaac APRN, C.N.P. [address] [place] [phone] 08/08/2024 9:00 AM KELLY MACHINE OPERATOR Infusion Department of Infusion Therapy in [address] [address] Melinda Isaac APRN, C.N.P. [address] [place] [phone] 08/09/2024 9:00 AM KELLY MACHINE OPERATOR Infusion Department of Infusion Therapy in [address] [address] Melinda Isaac APRN, C.N.P. [address] [place] [phone] 08/10/2024 9:00 AM KELLY MACHINE OPERATOR Infusion Department of Infusion Therapy in [address] [address] Melinda Isaac APRN, C.N.P. [address] [place] [phone] 08/11/2024 9:00 AM KELLY MACHINE OPERATOR Infusion Department of Infusion Therapy in [address] [address] Melinda Isaac APRN, C.N.P. [address] [place] [phone] 08/12/2024 9:00 AM KELLY MACHINE OPERATOR Infusion Department of Infusion Therapy in [address] [address] Melinda Isaac APRN, C.N.P. [address] [place] [phone] 08/13/2024 8:30 AM KELLY MACHINE OPERATOR Infusion Department of Infusion Therapy in [address] [address] Melinda Isaac APRN, C.N.P. [address] [place] [phone] 08/14/2024 9:00 AM KELLY MACHINE OPERATOR Infusion Department of Infusion Therapy in [address] [address] Melinda Isaac APRN, C.N.P. [address] [place] [phone] 08/15/2024 9:00 AM KELLY MACHINE OPERATOR Infusion Department of Infusion Therapy in [address] [address] Melinda Isaac APRN, C.N.P. [address] [place] [phone] 08/16/2024 9:00 AM KELLY MACHINE OPERATOR Infusion Department of Infusion Therapy in [address] [address] Melinda Isaac APRN, C.N.P. [address] [place] [phone] 08/17/2024 9:00 AM KELLY MACHINE OPERATOR Infusion Department of Infusion Therapy in [address] [address] Melinda Isaac APRN, C.N.P. [address] [place] [phone] 08/18/2024 9:00 AM KELLY MACHINE OPERATOR Infusion Department of Infusion Therapy in [address] [address] Melinda Isaac APRN, C.N.P. [address] [place] [phone] Scheduled Orders Name Type Priority Associated Diagnoses Orde r Schedule HemoQuant, Feces Lab Routine Blood In Stool Once for 1 Occurrences starting 07/11/2024 until 07/11/2024 documented as of this encounter Visit Diagnoses Diagnosis Blood In Stool documented in this encounter Additional Health Concerns Assessment Noted Time PHQ-9 Depression Total Score: 22 025 7:19 PM KELLY MACHINE OPERATOR documented as of this encounter Care Teams Special Education Case Manager Relationship Specialty Start Date End Date Prudence Mena MPAS, P.A.-C. [address] [place] [address] PCP - General Internal Medicine 02/08/24 documented as of this encounter
--- OUTSIDE RECORDS SUMMARY | 2024-07-28 22:49 | XMS_ITS | Encounter Summary ---
Author Organization [facility] Address [address] [place] [address] Care Team Providers Care Script Developer Name Role Phone Trina Prudence TO P.A.-C. Primary Care Pro vider Encounter Details Date Type Department Care Team (Latest Contact Info) Description 07/24/2024 9:03 AM MATERIALS DIRECTOR - 07/24/2024 11:[address] [facility] Hospital Encounter Department of Laboratory Medicine in [address] [phone] Melinda Cohen MPAS P.A.-Cherelle., M.S. [address] [place] [phone] Prison Antibiotic Treatment Discharge Disposition: Home or Self Care Social History Tobacco Use Types Packs/Day Years Used Date Smoking Tobacco: Former Cigarettes 1.5 0.1 S tarted: 06/21/2024 Passive Smoke Exposure: Past Smokeless Tobacco: Never Alcohol Use Standard Drinks/Week Comments Yes 0 (1 standard drink = 0.6 oz pur e alcohol) socially [facility] Utilities Answer Date Recorded In the past 12 months has [employer], gas, oil, or water [employer] threatened to shut off services in your [...] How often do you attend synagogue or gnosticist serv ices? Never 07/27/2022 Do [...] Answer Date Recorded PHQ-2 Score 6 07/10/2024 [facility] [place] of Occupat ional Health - Occupational Stress [...] muscle spasms. 45 tablet 07/20/2024 10:13 AM MATERIALS DIRECTOR 07/19/2024 metroNIDAZOLE (FlagyL) 500 mg tabletIndication s:Empyema Take 1 tablet (500 mg total) by mouth 3 (three) times a day for 17 days Indications: Empyema. 51 tablet 07/20/2024 10:13 AM MATERIALS DIRECTOR 07/19/2024 multivitamin capsule Take 1 capsule by [...] a venous catheter daily for 17 days. [facility] 07/19/2024 5 DME CPAPIndications: Obstructive Sleep Apnea [...] Pain Exception. 28 tablet 07/20/2024 10:13 AM MATERIALS DIRECTOR 07/19/2024 documented as of this encounter Plan of Treatment Upcoming Encounters Date Type Department Care Team (Late st Contact Info) Description 07/29/2024 10:00 AM MATERIALS DIRECTOR Infusion Department of Infusion Therapy in [address] [phone] Melinda Isaac APRN, C.N.P. [address] [place] [phone] 07/29/2024 2:20 PM MATERIALS DIRECTOR Office Visit Department of Community Internal Medicine in [place], [place] [address] [place] [address] Prudence Mena MPAS, P.A.-C. [address] [place] [phone] 07/30/2024 9:00 AM MATERIALS DIRECTOR Infusion Department of Infusion Therapy in [address] [phone] Melinda Isaac APRN, C.N.P. [address] [place] [phone] 07/31/2024 8:00 AM MATERIALS DIRECTOR Infusion Department of Infusion Therapy in [address] [phone] Melinda Isaac APRN, C.N.P. [address] [place] [phone] 08/01/2024 7:00 AM MATERIALS DIRECTOR Infusion Department of Infusion Therapy in [address] [phone] Melinda Isaac APRN, C.N.P. [address] [place] [phone] 08/02/2024 9:00 AM MATERIALS DIRECTOR Infusion Department of Infusion Therapy in [address] [phone] Melinda Isaac APRN, C.N.P. [address] [place] [phone] 08/02/2024 12:30 PM MATERIALS DIRECTOR Clinical Communication Virtual Review in [place], [place] 200 [place] [phone] 08/03/2024 9:00 AM MATERIALS DIRECTOR Infusion Department of Infusion Therapy in [address] [phone] Melinda Isaac APRN, C.N.P. [address] [place] [phone] 08/04/2024 9:00 AM MATERIALS DIRECTOR Infusion Department of Infusion Therapy in [address] [address] Melinda Isaac APRN, C.N.P. [address] [place] [phone] 08/05/2024 8:45 AM MATERIALS DIRECTOR Appointment Department of Radiology, [facility], in [place], [place] [address] [place] [phone] Kayleigh Small M.D. [address] [place] [phone] 08/05/2024 9:00 AM MATERIALS DIRECTOR Infusion Department of Infusion Therapy in [address] [address] Melinda Isaac APRN, C.N.P. [address] [place] [phone] 08/05/2024 11:00 AM MATERIALS DIRECTOR Office Visit Section of Infectious Diseases in [place], [place] [address] [place] [phone] Kayleigh Small M.D. [address] [place] [phone] 08/06/2024 9:00 AM MATERIALS DIRECTOR Infusion Department of Infusion Therapy in [address] [address] Melinda Isaac APRN, C.N.P. [address] [place] [phone] 08/07/2024 9:00 AM MATERIALS DIRECTOR Infusion Department of Infusion Therapy in [address] [address] Melinda Isaac APRN, C.N.P. [address] [place] [phone] 08/08/2024 9:00 AM MATERIALS DIRECTOR Infusion Department of Infusion Therapy in [address] [phone] Melinda Isaac APRN, C.N.P. [address] [place] [phone] 08/09/2024 9:00 AM MATERIALS DIRECTOR Infusion Department of Infusion Therapy in [address] [phone] Melinda Isaac APRN, C.N.P. [address] [place] [phone] 08/10/2024 9:00 AM MATERIALS DIRECTOR Infusion Department of Infusion Therapy in [address] [phone] Melinda Isaac APRN, C.N.P. [address] [place] [phone] 08/11/2024 9:00 AM MATERIALS DIRECTOR Infusion Department of Infusion Therapy in [address] [address] Melinda Isaac APRN, C.N.P. [address] [place] [phone] 08/12/2024 9:00 AM MATERIALS DIRECTOR Infusion Department of Infusion Therapy in [address] [phone] Melinda Isaac APRN, C.N.P. [address] [place] [phone] 08/13/2024 8:30 AM MATERIALS DIRECTOR Infusion Department of Infusion Therapy in [address] [address] Melinda Isaac APRN, C.N.P. [address] [place] [phone] 08/14/2024 9:00 AM MATERIALS DIRECTOR Infusion Department of Infusion Therapy in [address] [phone] Melinda Isaac APRN, C.N.P. [address] [place] [phone] 08/15/2024 9:00 AM MATERIALS DIRECTOR Infusion Department of Infusion Therapy in [address] [phone] Melinda Isaac APRN, C.N.P. [address] [place] [phone] 08/16/2024 9:00 AM MATERIALS DIRECTOR Infusion Department of Infusion Therapy in [address] [phone] Melinda Isaac APRN, C.N.P. [address] [place] [phone] 08/17/2024 9:00 AM MATERIALS DIRECTOR Infusion Department of Infusion Therapy in [address] [address] Melinda Isaac APRN, C.N.P. [address] [place] [phone] 08/18/2024 9:00 AM MATERIALS DIRECTOR Infusion Department of Infusion Therapy in [address] [phone] Melinda Isaac APRN, C.N.P. [address] [place] [phone] documented as of this encounter Procedures Procedure Name Priority Date/Time Associated Diagnosis Comments CBC WITH DIFFERENTIAL, B Routine 025 10:02 AM MATERIALS DIRECTOR Prison Antibiotic Treatment ALANINE AMINOTRANSFERASE (ALT), S/P Routine 07/24/2024 10:02 AM MATERIALS DIRECTOR Prison Antibiotic Treatment ALKALINE PHOSPHATASE, S/P Routine 07/24/2024 10:02 AM MATERIALS DIRECTOR [employer] Antibiotic Treatment CREATININE WITH EGFR, S/P Routine 07/24/2024 10:02 AM MATERIALS DIRECTOR [employer] Antibiotic Treatment documented in this encounter Results * Alkaline Phosphatase (07/24/2024 10:02 AM MATERIALS DIRECTOR) Alkaline Phosphatase, P 86 35 - 104 U/L 07/24/2024 10:24 AM MATERIALS DIRECTOR [place] Blood (Blood, PICC) 07/24/2024 10:02 AM MATERIALS DIRECTOR 07/24/2024 10:07 AM MATERIALS DIRECTOR us Melinda TO, P.A.-C., M.S. LAB BLOOD ADD-ON Final Result Performing Organization Address City/[facility]/ZIP [place] [address], [place] [address] * ALT (Alanine Aminotransferase) (07/24/2024 10:02 AM MATERIALS DIRECTOR) Alanine Aminotransferase (ALT), P 21 7 - 45 U/L 07/24/2024 10:24 AM MATERIALS DIRECTOR [facility] Blood (Blood, PICC) 07/24/2024 10:02 AM MATERIALS DIRECTOR 07/24/2024 10:07 AM MATERIALS DIRECTOR us Melinda TO, P.A.-C., M.S. LAB BLOOD ADD-[place] [address], [place] CNFL [facility] in [address] [address] * Creatinine with Estimated GFR (07/24/2024 10:02 AM MATERIALS DIRECTOR) Creatinine 0.60 0.59 - 1.04 mg/dL 07/24/2024 10:24 AM MATERIALS DIRECTOR CNFL Estimated GFR (eGFR) >90 >=60 mL/min/BSA 07/24/2024 10:24 AM MATERIALS DIRECTOR CNFL Comment: Estimated GFR calculated using the 2020 CKD_EPI creatinine equation. Blood (Blood, PICC) 07/24/2024 10:02 AM MATERIALS DIRECTOR 07/24/2024 10:07 AM MATERIALS DIRECTOR us Melinda TO, P.A.-C., M.S. LAB BLOOD ADD-ON Final Result [facility]- [address] [address], [facility] in [address] [address] * (ABNORMAL) CBC with Differential, Blood (07/24/2024 10:02 AM MATERIALS DIRECTOR) Hemoglobin 9.4(L) 11.6 - 15.0 g/dL 07/24/2024 10:11 AM MATERIALS DIRECTOR CNFL Hematocrit 30.2(L) 35.5 - 44.9 % 07/24/2024 10:11 AM MATERIALS DIRECTOR CNFL Erythrocytes 3.40(L) 3.92 - 5.13 x10(12)/L 07/24/2024 10:11 AM MATERIALS DIRECTOR CNFL MCV 88.8 78.2 - 97.9 fL 07/24/2024 10:11 AM MATERIALS DIRECTOR CNFL RBC Distrib Width 15.5 12.2 - 16.1 % 07/24/2024 10:11 AM MATERIALS DIRECTOR CNFL Platelet Count 641(H) 157 - 371 x10(9)/L 07/24/2024 10:11 AM MATERIALS DIRECTOR CNFL Leukocytes 12.0(H) 3.4 - 9.6 x10(9)/L 07/24/2024 10:11 AM MATERIALS DIRECTOR CNFL Neutrophils 8.69(H) 1.56 - 6.45 x10(9)/L 07/24/2024 10:11 AM MATERIALS DIRECTOR CNFL Lymphocytes 1.73 0.95 - 3.07 x10(9)/L 07/24/2024 10:11 AM MATERIALS DIRECTOR CNFL Monocytes 0.99(H) 0.26 - 0.81 x10(9)/L 07/24/2024 10:11 AM MATERIALS DIRECTOR CNFL Eosinophils 0.55(H) 0.03 - 0.48 x10(9)/L 07/24/2024 10:11 AM MATERIALS DIRECTOR CNFL Basophils 0.06 0.01 - 0.08 x10(9)/L 07/24/2024 10:11 AM MATERIALS DIRECTOR CNFL Blood (Blood, PICC) 07/24/2024 10:02 AM MATERIALS DIRECTOR 07/24/2024 10:07 AM MATERIALS DIRECTOR Melinda TO, P.A.-C., M.S. LAB BLOOD ADD-ON Final Result [facility] [address] [place] [address], [facility] in [address] [address] documented in this encounter Visit Diagnoses Diagnosis Prison Antibiotic Treatment documented in this encounter Additional Health Concerns Assessment Noted Time PHQ-9 Depression Total Score: 22 025 7:19 PM MATERIALS DIRECTOR documented as of this encounter Care Teams Script Developer Relationship Specialty Start Date End Date Prudence Mena MPAS, P.A.-C. [address] [place] [address] [place] [phone] PCP - General Internal Medicine 02/08/24 documented as of this encounter
--- OUTSIDE RECORDS SUMMARY | 2024-07-28 22:49 | XMS_ITS | Encounter Summary ---
Author Organization [facility] Address [address] [place] [address] Care Team Providers Care Library Supervisor Name Role Phone Prudence Mena P.A.-C. Primary Care Pro vider Reason for Visit * Reason Comments Outpatient Infusion Encounter Details Date Type Department Care Team (Late st Contact Info) Description 07/23/2024 9:00 AM LIVER TRIMMER Infusion Department of Infusion Therapy in [address] [phone] Melinda Isaac, FRED, C.N.P. [address] [place] [phone] Empyema Pleural (HCC) (Primary Dx) Social History Tobacco Use Types Packs/Day Years Used Date Smoking Tobacco: Former Cigarettes 1.5 0.1 S tarted: 06/21/2024 Passive Smoke Exposure: Past Smokeless Tobacco: Never Alcohol Use Standard Drinks/Week Comments Yes 0 (1 standard drink = 0.6 oz pur e alcohol) socially [facility] Utilities Answer Date Recorded In [...] Never 07/27/2022 How often do you attend episcopalian or latter-day serv ices? Never 07/27/2022 Do you belong to any clubs o r organizations such as episcopalian groups, unions, fraternal or athletic groups, or [...] Answer Date Recorded PHQ-2 Score 6 07/10/[address] [facility] [place] of Occupat ional Health - Occupational Stress [...] Comments Blood Pressure 120/79 07/23/2024 9:10 AM LIVER TRIMMER Pulse 93 07/23/2024 9:10 AM LIVER TRIMMER Temperature 36.6 C (97.9 F) 07/23/2024 9:10 AM LIVER TRIMMER Respiratory Rate 18 07/23/2024 9:10 AM LIVER TRIMMER Oxygen Saturation 100% 07/23/2024 9:10 AM LIVER TRIMMER Inhaled Oxygen Concentration - - Weight - - Height - - Body Mass Index - - documented in this encounter Plan of Treatment Upcoming Encounters Date Type Department Care Team (Late st Contact Info) Description 07/29/2024 10:00 AM LIVER TRIMMER Infusion Department of Infusion Therapy in [address] [phone] Melinda Isaac APRN, C.N.P. [address] [place] [phone] 07/29/2024 2:20 PM LIVER TRIMMER Office Visit Department of Community Internal Medicine in [place], [place] [address] [place] [phone] Prudence Mena MPAS, P.A.-C. 300 [place] [phone] 07/30/2024 9:00 AM LIVER TRIMMER Infusion Department of Infusion Therapy in [address] [phone] Melinda Isaac APRN, C.N.P. [address] [place] [phone] 07/31/2024 8:00 AM LIVER TRIMMER Infusion Department of Infusion Therapy in [address] [address] Melinda Isaac APRN, C.N.P. [address] [place] [phone] 08/01/2024 7:00 AM LIVER TRIMMER Infusion Department of Infusion Therapy in [address] [address] Melinda Isaac APRN, C.N.P. [address] [place] [phone] 08/02/2024 9:00 AM LIVER TRIMMER Infusion Department of Infusion Therapy in [address] [phone] Melinda Isaac APRN, C.N.P. [address] [place] [phone] 08/02/2024 12:30 PM LIVER TRIMMER Clinical Communication Virtual Review in [place], [place] 200 [place] [phone] 08/03/2024 9:00 AM LIVER TRIMMER Infusion Department of Infusion Therapy in [address] [phone] Melinda Isaac APRN, C.N.P. [address] [place] [phone] 08/04/2024 9:00 AM LIVER TRIMMER Infusion Department of Infusion Therapy in [address] [phone] Melinda Isaac APRN, C.N.P. [address] [place] [phone] 08/05/2024 8:45 AM LIVER TRIMMER Appointment Department of Radiology, [facility], in [place], [place] [address] [place] [phone] Kayleigh Small M.D. [address] [place] [phone] 08/05/2024 9:00 AM LIVER TRIMMER Infusion Department of Infusion Therapy in [address] [phone] Melinda Isaac APRN, C.N.P. [address] [place] [phone] 08/05/2024 11:00 AM LIVER TRIMMER Office Visit Section of Infectious Diseases in [place], [place] [address] [place] [phone] Kayleigh Small M.D. [address] [place] [phone] 08/06/2024 9:00 AM LIVER TRIMMER Infusion Department of Infusion Therapy in [address] [address] Melinda Isaac APRN, C.N.P. [address] [place] [phone] 08/07/2024 9:00 AM LIVER TRIMMER Infusion Department of Infusion Therapy in [address] [address] Melinda Isaac APRN, C.N.P. [address] [place] [phone] 08/08/2024 9:00 AM LIVER TRIMMER Infusion Department of Infusion Therapy in [address] [phone] Melinda Isaac APRN, C.N.P. [address] [place] [phone] 08/09/2024 9:00 AM LIVER TRIMMER Infusion Department of Infusion Therapy in [address] [address] Melinda Isaac APRN, C.N.P. [address] [place] [phone] 08/10/2024 9:00 AM LIVER TRIMMER Infusion Department of Infusion Therapy in [address] [address] Melinda Isaac APRN, C.N.P. [address] [place] [phone] 08/11/2024 9:00 AM LIVER TRIMMER Infusion Department of Infusion Therapy in [address] [address] Melinda Isaac APRN, C.N.P. [address] [place] [phone] 08/12/2024 9:00 AM LIVER TRIMMER Infusion Department of Infusion Therapy in [address] [address] Melinda Isaac APRN, C.N.P. [address] [place] [phone] 08/13/2024 8:30 AM LIVER TRIMMER Infusion Department of Infusion Therapy in [address] [phone] Melinda Isaac APRN, C.N.P. [address] [place] [phone] 08/14/2024 9:00 AM LIVER TRIMMER Infusion Department of Infusion Therapy in [address] [phone] Melinda Isaac APRN, C.N.P. [address] [place] [phone] 08/15/2024 9:00 AM LIVER TRIMMER Infusion Department of Infusion Therapy in [address] [phone] Melinda Isaac APRN, C.N.P. [address] [place] [phone] 08/16/2024 9:00 AM LIVER TRIMMER Infusion Department of Infusion Therapy in [address] [phone] Melinda Isaac APRN, C.N.P. [address] [place] [phone] 08/17/2024 9:00 AM LIVER TRIMMER Infusion Department of Infusion Therapy in [address] [address] Melinda Isaac APRN, C.N.P. [address] [place] [phone] 08/18/2024 9:00 AM LIVER TRIMMER Infusion Department of Infusion Therapy in [address] [phone] Melinda Isaac APRN, C.N.P. [address] [place] [phone] documented as of this encounter Visit Diagnoses [...] infection, community acquired Given 07/23/2024 9:15 AM LIVER TRIMMER 2 g sodium chloride 0.9 % injection 10-30 mL 10-30 mL, intravenous, As needed, line care, Starting on Mon07/23/24 at 0858, Prior to and following infusion, between multiple consecutive infusions.10 mL to each lumen.Indications:Empyema Pleural (HCC) Given 07/23/2024 9:19 AM LIVER TRIMMER 10 mL Given 07/23/2024 9:15 AM LIVER TRIMMER 10 mL documented in this encounter Additional Health Concerns Assessment Noted Time PHQ-9 Depression Total Score: 22 025 7:19 PM LIVER TRIMMER documented as of this encounter Care Teams Library Supervisor Relationship Specialty Start Date End Date Prudence Mena MPAS, P.A.-C. [address] [place] [phone] PCP - General Internal Medicine 02/08/24 documented as of this encounter
--- OUTSIDE RECORDS SUMMARY | 2024-07-28 22:49 | XMS_ITS | Encounter Summary ---
Author Organization [facility] Address [address] [place] [address] Care Team Providers Care National Flatbed Truck Driver Name Role Phone Prudence Mena P.A.-C. Primary Care Pro vider Reason for Visit * Reason Comments Outpatient Infusion Dressing Change Encounter Details Date Type Department Care Team (Late st Contact Info) Description 07/25/2024 9:00 AM SPECTROGRAPH OPERATOR Infusion Department of Infusion Therapy in [address] [phone] Melinda Isaac, FRED, C.N.P. [address] [place] [phone] Empyema Pleural (HCC) (Primary Dx) Social History Tobacco Use Types Packs/Day Years Used Date Smoking Tobacco: Former Cigarettes 1.5 0.1 S tarted: 06/21/2024 Passive Smoke Exposure: Past Smokeless Tobacco: Never Alcohol Use Standard Drinks/Week Comments Yes 0 (1 standard drink = 0.6 oz pur e alcohol) socially [facility] Utilities Answer Date Recorded In [...] How often do you attend scientologist or pentecostalism serv ices? Never 07/27/2022 Do [...] Date Recorded PHQ-2 Score 6 07/10/2024 [facility] of Occupat ional Health - Occupational Stress [...] Comments Blood Pressure 139/95 07/25/2024 9:05 AM SPECTROGRAPH OPERATOR Pulse 103 07/25/2024 9:05 AM SPECTROGRAPH OPERATOR Temperature 36.6 C (97.9 F) 07/25/2024 9:05 AM SPECTROGRAPH OPERATOR Respiratory Rate 18 07/25/2024 9:05 AM SPECTROGRAPH OPERATOR Oxygen Saturation 100% 07/25/2024 9:05 AM SPECTROGRAPH OPERATOR Inhaled Oxygen Concentration - - Weight - - Height - - Body Mass Index - - documented in this encounter Plan of Treatment Upcoming Encounters Date Type Department Care Team (Late st Contact Info) Description 07/29/2024 10:00 AM SPECTROGRAPH OPERATOR Infusion Department of Infusion Therapy in [address] [address] Melinda Isaac APRN, C.N.P. [address] [place] [phone] 07/29/2024 2:20 PM SPECTROGRAPH OPERATOR Office Visit Department of Community Internal Medicine in [place], [place] 300 [place] [phone] Prudence Mena MPAS, P.A.-C. 300 [place] [phone] 07/30/2024 9:00 AM SPECTROGRAPH OPERATOR Infusion Department of Infusion Therapy in [address] [address] Melinda Isaac APRN, C.N.P. [address] [place] [phone] 07/31/2024 8:00 AM SPECTROGRAPH OPERATOR Infusion Department of Infusion Therapy in [address] [address] Melinda Isaac APRN, C.N.P. [address] [place] [phone] 08/01/2024 7:00 AM SPECTROGRAPH OPERATOR Infusion Department of Infusion Therapy in [address] [address] Melinda Isaac APRN, C.N.P. [address] [place] [phone] 08/02/2024 9:00 AM SPECTROGRAPH OPERATOR Infusion Department of Infusion Therapy in [address] [phone] Melinda Isaac APRN, C.N.P. [address] [place] [phone] 08/02/2024 12:30 PM SPECTROGRAPH OPERATOR Clinical Communication Virtual Review in [place], [place] 200 [place] [address] 08/03/2024 9:00 AM SPECTROGRAPH OPERATOR Infusion Department of Infusion Therapy in [address] [phone] Melinda Isaac APRN, C.N.P. [address] [place] [phone] 08/04/2024 9:00 AM SPECTROGRAPH OPERATOR Infusion Department of Infusion Therapy in [address] [phone] Melinda Isaac APRN, C.N.P. [address] [place] [phone] 08/05/2024 8:45 AM SPECTROGRAPH OPERATOR Appointment Department of Radiology, [facility], in [place], [place] [address] [place] [phone] Kayleigh Small M.D. [address] [place] [phone] 08/05/2024 9:00 AM SPECTROGRAPH OPERATOR Infusion Department of Infusion Therapy in [address] [phone] Melinda Isaac APRN, C.N.P. [address] [place] [phone] 08/05/2024 11:00 AM SPECTROGRAPH OPERATOR Office Visit Section of Infectious Diseases in [place], [place] [address] [place] [phone] Kayleigh Small M.D. [address] [place] [phone] 08/06/2024 9:00 AM SPECTROGRAPH OPERATOR Infusion Department of Infusion Therapy in [address] [address] Melinda Isaac APRN, C.N.P. [address] [place] [phone] 08/07/2024 9:00 AM SPECTROGRAPH OPERATOR Infusion Department of Infusion Therapy in [address] [address] Melinda Isaac APRN, C.N.P. [address] [place] [phone] 08/08/2024 9:00 AM SPECTROGRAPH OPERATOR Infusion Department of Infusion Therapy in [address] [address] Melinda Isaac APRN, C.N.P. [address] [place] [phone] 08/09/2024 9:00 AM SPECTROGRAPH OPERATOR Infusion Department of Infusion Therapy in [address] [address] Melinda Isaac APRN, C.N.P. [address] [place] [phone] 08/10/2024 9:00 AM SPECTROGRAPH OPERATOR Infusion Department of Infusion Therapy in [address] [address] Melinda Isaac APRN, C.N.P. [address] [place] [phone] 08/11/2024 9:00 AM SPECTROGRAPH OPERATOR Infusion Department of Infusion Therapy in [address] [address] Melinda Isaac APRN, C.N.P. [address] [place] [phone] 08/12/2024 9:00 AM SPECTROGRAPH OPERATOR Infusion Department of Infusion Therapy in [address] [address] Melinda Isaac APRN, C.N.P. [address] [place] [phone] 08/13/2024 8:30 AM SPECTROGRAPH OPERATOR Infusion Department of Infusion Therapy in [address] [address] Melinda Isaac APRN, C.N.P. [address] [place] [phone] 08/14/2024 9:00 AM SPECTROGRAPH OPERATOR Infusion Department of Infusion Therapy in [address] [address] Melinda Isaac APRN, C.N.P. [address] [place] [phone] 08/15/2024 9:00 AM SPECTROGRAPH OPERATOR Infusion Department of Infusion Therapy in [address] [address] Melinda Isaac APRN, C.N.P. [address] [place] [phone] 08/16/2024 9:00 AM SPECTROGRAPH OPERATOR Infusion Department of Infusion Therapy in [address] [address] Melinda Isaac APRN, C.N.P. [address] [place] [phone] 08/17/2024 9:00 AM SPECTROGRAPH OPERATOR Infusion Department of Infusion Therapy in [address] [address] Melinda Isaac APRN, C.N.P. [address] [place] [phone] 08/18/2024 9:00 AM SPECTROGRAPH OPERATOR Infusion Department of Infusion Therapy in [address] [phone] Melinda Isaac APRN, C.N.P. [address] [place] [phone] documented as of this encounter Visit Diagnoses [...] infection, community acquired Given 07/25/2024 9:08 AM SPECTROGRAPH OPERATOR 2 g sodium chloride 0.9 % injection 10-30 mL 10-30 mL, intravenous, As needed, line care, Starting on Gloria 07/25/24 at 0857, Prior to and following infusion, between multiple consecutive infusions.10 mL to each lumen.Indications:Empyema Pleural (HCC) Given 07/25/2024 9:13 AM SPECTROGRAPH OPERATOR 10 mL Given 07/25/2024 9:08 AM SPECTROGRAPH OPERATOR 10 mL documented in this encounter Additional Health Concerns Assessment Noted Time PHQ-9 Depression Total Score: 22 025 7:19 PM SPECTROGRAPH OPERATOR documented as of this encounter Care Teams National Flatbed Truck Driver Relationship Specialty Start Date End Date Prudence Mena MPAS, P.A.-C. [address] [place] [phone] PCP - General Internal Medicine 02/08/24 documented as of this encounter
--- OUTSIDE RECORDS SUMMARY | 2024-07-28 22:50 | XMS_ITS | Encounter Summary ---
Author Organization [facility] Address [address] [place] [id number] Care Team Providers Care Newswriter Name Role Phone [place] Prudence Ori TO Primary Care Pro vider Reason for Referral * Outpatient (Routine) - Authorized Specialty Diagnoses / Procedures Referred By Contac t Referred To Contact Diagnoses Engraver Optical Frames Antibiotic Treatment Procedures Perform central solderer production line: Site care Melinda Cohen MPAS, P.A.-C., M.S. [address] [place] [phone] Phone: tel: fax: [facility] Region Referral ID Status Reason Start Date Expiration Date V isits Requested Visits Authorized [id number] Authorized 07/22/2024 10/22/2025 1 1 FIXTURE DESIGNER Reason for Visit * Reason Comments Care Coordination Encounter Details Date Type Department Care Team (Late st Contact Info) Description 07/22/2024 Patient Outreach Section of Infectious Diseases in [place], [place] [address] [place] [phone] Sneha Barrett Care Coordination Social History Tobacco Use Types Packs/Day Years Used Date Smoking Tobacco: Former Cigarettes 1.5 0.1 S tarted: 06/21/2024 Passive Smoke Exposure: Past Smokeless Tobacco: Never Alcohol Use Standard Drinks/Week Comments Yes 0 (1 standard drink = 0.6 oz pur e alcohol) socially [facility] Utilities Answer Date Recorded In the past 12 months has th e [employer], oil, or water [employer] threatened to shut off services in your [...] How often do you attend alevism or shinto serv ices? Never 07/27/2022 Do you belong [...] PHQ-2 Score 6 07/10/2024 [facility] - Occupational Stress Questionnaire Answer Date [...] contact information for non-urgent antimicrobial related questions. FIXTURE DESIGNER documented in this encounter Nursing Notes * Johanny Contreras R.N. - 07/24/2024 12:49 PM CST OPAT NOTE - LAB REVIEW Name Phone Number OPAT Infusion/Labs: [facility]: [facility] Zafar (M-F) OPAT Infusion/Labs: [facility]: [place] (Sat/Sun) Problem: Outpatient Antimicrobial Therapy Monitoring Description: [...] for the Division of Infectious Diseases - [id number] FIXTURE DESIGNER documented in this encounter Plan of Treatment Upcoming Encounters Date Type Department Care Team (Late st Contact Info) Description 07/29/2024 10:00 AM TEST FIXTURE DESIGNER Infusion Department of Infusion Therapy in [address] [phone] Melinda Isaac APRN, C.N.P. [address] [place] [phone] 07/29/2024 2:20 PM TEST FIXTURE DESIGNER Office Visit Department of Community Internal Medicine in [place], [place] 300 [place] [phone] Prudence Mena, LATONIAS, P.A.-C. 300 [place] [phone] 07/30/2024 9:00 AM TEST FIXTURE DESIGNER Infusion Department of Infusion Therapy in [address] [phone] Melinda Isaac APRN, C.N.P. [address] [place] [phone] 07/31/2024 8:00 AM TEST FIXTURE DESIGNER Infusion Department of Infusion Therapy in [address] [phone] Melinda Isaac APRN, C.N.P. [address] [place] [phone] 08/01/2024 7:00 AM TEST FIXTURE DESIGNER Infusion Department of Infusion Therapy in [address] [phone] Melinda Isaac APRN, C.N.P. [address] [place] [phone] 08/02/2024 9:00 AM TEST FIXTURE DESIGNER Infusion Department of Infusion Therapy in [address] [phone] Melinda Isaac APRN, C.N.P. [address] [place] [phone] 08/02/2024 12:30 PM TEST FIXTURE DESIGNER Clinical Communication Virtual Review in [place], [place] 200 [place] [phone] 08/03/2024 9:00 AM TEST FIXTURE DESIGNER Infusion Department of Infusion Therapy in [address] [phone] Melinda Isaac APRN, C.N.P. [address] [place] [phone] 08/04/2024 9:00 AM TEST FIXTURE DESIGNER Infusion Department of Infusion Therapy in [address] [phone] Melinda Isaac APRN, C.N.P. [address] [place] [phone] 08/05/2024 8:45 AM TEST FIXTURE DESIGNER Appointment Department of Radiology, [facility], in [place], [place] [address] [place] [phone] Kayleigh Small M.D. [address] [place] [phone] 08/05/2024 9:00 AM TEST FIXTURE DESIGNER Infusion Department of Infusion Therapy in [address] [phone] Melinda Isaac APRN, C.N.P. [address] [place] [phone] 08/05/2024 11:00 AM TEST FIXTURE DESIGNER Office Visit Section of Infectious Diseases in [place], [place] [address] [place] [phone] Kayleigh Small M.D. [address] [place] [phone] 08/06/2024 9:00 AM TEST FIXTURE DESIGNER Infusion Department of Infusion Therapy in [address] [phone] Melinda Isaac APRN, C.N.P. [address] [place] [phone] 08/07/2024 9:00 AM TEST FIXTURE DESIGNER Infusion Department of Infusion Therapy in [address] [phone] Melinda Isaac APRN, C.N.P. [address] [place] [phone] 08/08/2024 9:00 AM TEST FIXTURE DESIGNER Infusion Department of Infusion Therapy in [address] [phone] eMlinda Isaac APRN, C.N.P. [address] [place] [phone] 08/09/2024 9:00 AM TEST FIXTURE DESIGNER Infusion Department of Infusion Therapy in [address] [phone] Melinda Isaac APRN, C.N.P. [address] [place] [phone] 08/10/2024 9:00 AM TEST FIXTURE DESIGNER Infusion Department of Infusion Therapy in [address] [phone] Melinda Isaac APRN, C.N.P. [address] [place] [phone] 08/11/2024 9:00 AM TEST FIXTURE DESIGNER Infusion Department of Infusion Therapy in [address] [phone] Melinda Isaac APRN, C.N.P. [address] [place] [phone] 08/12/2024 9:00 AM TEST FIXTURE DESIGNER Infusion Department of Infusion Therapy in [address] [phone] Melinda Isaac APRN, C.N.P. [address] [place] [phone] 08/13/2024 8:30 AM TEST FIXTURE DESIGNER Infusion Department of Infusion Therapy in [address] [phone] Melinda Isaac APRN, C.N.P. [address] [place] [phone] 08/14/2024 9:00 AM TEST FIXTURE DESIGNER Infusion Department of Infusion Therapy in [address] [phone] Melinda Isaac APRN, C.N.P. [address] [place] [phone] 08/15/2024 9:00 AM TEST FIXTURE DESIGNER Infusion Department of Infusion Therapy in [address] [phone] Melinda Isaac APRN, C.N.P. [address] [place] [phone] 08/16/2024 9:00 AM TEST FIXTURE DESIGNER Infusion Department of Infusion Therapy in [address] [phone] Melinda Isaac APRN, C.N.P. [address] [place] [phone] 08/17/2024 9:00 AM TEST FIXTURE DESIGNER Infusion Department of Infusion Therapy in [address] [phone] Melinda Isaac APRN, C.N.P. [address] [place] [phone] 08/18/2024 9:00 AM TEST FIXTURE DESIGNER Infusion Department of Infusion Therapy in [address] [phone] Melinda Isaac APRN, C.N.P. [address] [place] [phone] Scheduled Orders Name Type Priority Associated Diagnoses Orde r Schedule CBC with Differential, Blood Lab Routine Engraver Optical Frames Antibiotic Treatment weekly for 2 Occurrences starting 07/22/2024 until 10/20/2025, 1 completed Creatinine with Estimated GFR Lab Routine [employer]ver [employer] Antibiotic Treatment weekly for 2 Occurrences starting 07/22/2024 until 10/20/2025, 1 completed ALT (Alanine Aminotransferase) Lab Routine [employer] Antibiotic Treatment weekly for 2 Occurrences starting 07/22/2024 until 10/20/2025, 1 completed Alkaline Phosphatase Lab Routine [employer]raver Optical [employer]ames Antibiotic Treatment weekly for 2 Occurrences starting 07/22/2024 until 10/20/2025, 1 completed Perform central solderer production line: Site care Procedures Routine Engraver Optical Frames Antibiotic Treatment Expected: 07/29/2024, Expires: 10/20/2025 documented as of this encounter Results * Alkaline Phosphatase (07/24/2024 10:02 AM TEST FIXTURE DESIGNER) Alkaline Phosphatase, P 86 35 - 104 U/L 07/24/2024 10:24 AM TEST FIXTURE DESIGNER [facility] Blood (Blood, PICC) 07/24/2024 10:02 AM TEST FIXTURE DESIGNER 07/24/2024 10:07 AM TEST FIXTURE DESIGNER us Melinda TO, P.A.-C., M.S. LAB [place]LOOD [place] [address], [facility] [place] [address] * ALT (Alanine Aminotransferase) (07/24/2024 10:02 AM TEST FIXTURE DESIGNER) Alanine Aminotransferase (ALT), P 21 7 - 45 U/L 07/24/2024 10:24 AM TEST FIXTURE DESIGNER [place] Blood (Blood, PICC) 07/24/2024 10:02 AM TEST FIXTURE DESIGNER 07/24/2024 10:07 AM TEST FIXTURE DESIGNER us Melinda TO, P.A.-C., M.S. LAB BLOOD ADD-ON Final Result [facility] [address] [address], [facility] [address] [address] * Creatinine with Estimated GFR (07/24/2024 10:02 AM TEST FIXTURE DESIGNER) [facility] Creatinine 0.60 0.59 - 1.04 mg/dL 07/24/2024 10:24 AM TEST FIXTURE DESIGNER CNFL Estimated GFR (eGFR) >90 >=60 mL/min/BSA 07/24/2024 10:24 AM TEST FIXTURE DESIGNER CNFL Comment: Estimated GFR calculated using the 2020 CKD_EPI creatinine equation. Blood (Blood, PICC) 07/24/2024 10:02 AM TEST FIXTURE DESIGNER 07/24/2024 10:07 AM TEST FIXTURE DESIGNER us Melinda TO, P.A.-C., M.S. LAB BLOOD ADD-ON Final Result [facility] [address] [address], [facility] in [address] [address] * (ABNORMAL) CBC with Differential, Blood (07/24/2024 10:02 AM TEST FIXTURE DESIGNER) [facility] Hemoglobin 9.4(L) 11.6 - 15.0 g/dL 07/24/2024 10:11 AM TEST FIXTURE DESIGNER CNFL Hematocrit 30.2(L) 35.5 - 44.9 % 07/24/2024 10:11 AM TEST FIXTURE DESIGNER CNFL Erythrocytes 3.40(L) 3.92 - 5.13 x10(12)/L 07/24/2024 10:11 AM TEST FIXTURE DESIGNER CNFL MCV 88.8 78.2 - 97.9 fL 07/24/2024 10:11 AM TEST FIXTURE DESIGNER CNFL RBC Distrib Width 15.5 12.2 - 16.1 % 07/24/2024 10:11 AM TEST FIXTURE DESIGNER CNFL Platelet Count 641(H) 157 - 371 x10(9)/L 07/24/2024 10:11 AM TEST FIXTURE DESIGNER CNFL Leukocytes 12.0(H) 3.4 - 9.6 x10(9)/L 07/24/2024 10:11 AM TEST FIXTURE DESIGNER CNFL Neutrophils 8.69(H) 1.56 - 6.45 x10(9)/L 07/24/2024 10:11 AM TEST FIXTURE DESIGNER CNFL Lymphocytes 1.73 0.95 - 3.07 x10(9)/L 07/24/2024 10:11 AM TEST FIXTURE DESIGNER CNFL Monocytes 0.99(H) 0.26 - 0.81 x10(9)/L 07/24/2024 10:11 AM TEST FIXTURE DESIGNER CNFL Eosinophils 0.55(H) 0.03 - 0.48 x10(9)/L 07/24/2024 10:11 AM TEST FIXTURE DESIGNER CNFL Basophils 0.06 0.01 - 0.08 x10(9)/L 07/24/2024 10:11 AM TEST FIXTURE DESIGNER CNFL Blood (Blood, PICC) 07/24/2024 10:02 AM TEST FIXTURE DESIGNER 07/24/2024 10:07 AM TEST FIXTURE DESIGNER Melinda TO, P.A.-C., M.S. LAB BLOOD ADD-ON Final Result [facility] [address] [place] [address], [facility] in [address] [address] documented in this encounter Visit Diagnoses Diagnosis [facility] Antibiotic Treatment- Primary documented in this encounter Additional Health Concerns Assessment Noted Time PHQ-9 Depression Total Score: 22 025 7:19 PM TEST FIXTURE DESIGNER documented as of this encounter Care Teams Newswriter Relationship Specialty Start Date End Date Prudence Mena MPAS, P.A.-C. [address] [place] [address] [place] [phone] PCP - General Internal Medicine 02/08/24 documented as of this encounter
--- OUTSIDE RECORDS SUMMARY | 2024-07-28 22:50 | XMS_ITS | Clinical Summary ---
Author Organization [facility] Address [address] [place] [address] Care Team Providers Care Shell Assembler Name Role Phone Prudence Mena P.A.-C. Primary Care Pro vider Source Comments Patient records contain information from all sites at [facility]. For routine questions regarding patient records, call [phone] during business hours, M-F 8:00 AM - 5:00 PM Central Time. Record requests for emergency care only can be directed to [phone] at any time.[facility] Allergies Active Allergy Reactions Criticality Noted Date [...] muscle spasms. 45 tablet 5 10:13 AM LOBSTER MAN 07/19/19 25 Active metroNIDAZOLE (FlagyL) 500 mg tabletIndicat ions:Empyema Take 1 tablet (500 mg total) by mouth 3 (three) times a day for 17 days Indications: Empyema. 51 tablet 5 10:13 AM LOBSTER MAN 07/19/19 25 025 Active sennosides (senna) 8.6 mg tablet Take 2 tablets (17.2 mg total) by mouth daily. 07/20/19 25 Active cefTRIAXone in dextrose, iso osm, (Rocephin) 2 gram/50 mL IVBPIndicatio ns:Empyema Pleural (HCC) Infuse 50 mL (2 g total) into a venous catheter daily for 17 days. [place] ITC 07/19/19 25 025 Active ibuprofen 400 [...] Pain Exception. 28 tablet 5 10:13 AM LOBSTER MAN 07/19/19 25 025 Discontinued(R eorder) ibuprofen 400 [...] for Sleep Medicine consult October 2023 in [place]. I have reordered her a consult as [...] 12/03/2021 Overview (09/03/2023): Follows with Psychiatry in [place]. Attends therapy in [place]. Attention Deficit With Hyperactivity Disorder Overview (09/03/2023): Follows with Psychiatry in [place]. Attends therapy in [place]. Major Depressive Disorder, Recurrent, Unspecifie d 12/03/2021 Overview (09/03/2023): Follows with Psychiatry in [place]. Attends therapy in [place]. Headache Unspecified 07/03/2019 Fracture Fifth Metacarpal Ba [...] Department Care Team Description 07/28/2024 9:00 AM LOBSTER MAN Infusion Department of Infusion Therapy in [place], [place] [address] Melinda Isaac APRN, C.N.P. Empyema Pleural (HCC) (Primary Dx) 07/27/2024 9:00 AM LOBSTER MAN Infusion Department of Infusion Therapy in [place], [place] [address] Melinda Isaac APRN, C.NDmitryPDmitry Empyema Pleural (HCC) (Primary Dx) 07/26/2024 9:14 AM LOBSTER MAN - 07/26/2024 2:06 PM LOBSTER MAN Emergency [facility] [address] [place] [phone] Dilcia Valero APRN, C.NDmitryPDmitry Pain Chest Wall (Primary Dx) Discharge Disposition: Home or Self Care 07/26/2024 9:00 AM LOBSTER MAN Infusion Department of Infusion Therapy in [address] [phone] Melinda Isaac APRN, C.NDmitryPDmitry Empyema Pleural (HCC) (Primary Dx) 07/26/2024 Results Follow-Up [facility] [address] [place] [address] Lindsay Mejias R.N. 07/25/2024 9:00 AM LOBSTER MAN Infusion Department of Infusion Therapy in [address] [address] Melinda Isaac APRN, C.NDmitryPDmitry Empyema Pleural (HCC) (Primary Dx) 07/25/2024 Orders Only Division of Thoracic Surgery in [place], [place] [address] [place] [address] Eveline Mariscal, P.A.-C. 07/24/2024 9:03 AM LOBSTER MAN - 07/24/2024 11:59 PM LOBSTER MAN Hospital Encounter Department of Radiology in [address] [phone] Prudence Mena MPAS, P.A.-C. Pneumonia Discharge Disposition: Home or Self Care 07/24/2024 9:03 AM LOBSTER MAN - 07/24/2024 11:59 PM LOBSTER MAN Hospital Encounter Department of Laboratory Medicine in [address] [phone] Melinda Cohen MPAS P.A.-C., M.S. Drying Machine Operator Antibiotic Treatment Discharge Disposition: Home or Self Care 07/24/2024 9:00 AM LOBSTER MAN Infusion Department of Infusion Therapy in [address] [phone] Melinda Isaac APRN, C.N.P. Empyema Pleural (HCC) (Primary Dx) 07/24/2024 Results Follow-Up Department of Community Internal Medicine in [address] [address] Prudence Mena MPAS P.A.-C. 07/23/2024 9:00 AM LOBSTER MAN Infusion Department of Infusion Therapy in [address] [phone] Melinda Isaac APRN, C.N.P. Empyema Pleural (HCC) (Primary Dx) 07/23/2024 Clinical Communication Department of Infusion Therapy in [address] [phone] Tita Bell R.N. Reschedule 07/22/2024 9:00 AM LOBSTER MAN Infusion Department of Infusion Therapy in [address] [address] Melinda Isaac APRN, C.N.P. Empyema Pleural (HCC) (Primary Dx) 07/22/2024 Clinical Communication Department of Community Internal Medicine in [address] [address] Rosalva Galeano R.N. Post Hospital Follow-up (Completed - DC'd 07/20/24 @ 1016) 07/22/2024 Patient Outreach Section of Infectious Diseases in [place] [address] [place] [address] Sneha Barrett Care Coordination 07/22/2024 Results Follow-Up Department of Community Internal Medicine in [address] [place] [address] Prudence Mena MPAS, P.A.-C. 07/21/2024 9:00 AM LOBSTER MAN Infusion Department of Infusion Therapy in [address] [address] Melinda Isaac APRN, C.N.P. Empyema Pleural (HCC) (Primary Dx); Pneumonia 07/19/2024 Clinical Communication Division of Thoracic Surgery in [address] [address] Melinda Isaac APRN, C.N.P. 07/18/2024 Clinical Communication [facility] [address] [place] [phone] Kayleigh Small M.D. Post Hospital Follow-up 07/15/2024 1:10 PM LOBSTER MAN - 07/15/2024 4:33 PM LOBSTER MAN Surgery [facility] [address] [place] [phone] Patrick Mtz M.D., Ph.D. ROBOTIC THORACOSCOPY, DECORTICATION, PLEURODESIS, PROCEED INDICATED. 07/15/2024 12:57 PM LOBSTER MAN Anesthesia Event [facility] [address] [place] [phone] Lanre Hayward M.D. Aroldo Johnson, R.N. 07/13/2024 7:53 PM LOBSTER MAN - 07/20/2024 10:16 AM LOBSTER MAN Hospital Encounter [facility], Tenth Floor [address] [place] [phone] Patrick Mtz M.D., Ph.D. Empyema Pleural (HCC) (Primary Dx) Discharge Disposition: Home or Self Care 07/13/2024 Intake [facility] 07/11/2024 11:17 AM LOBSTER MAN - 07/11/2024 11:59 PM LOBSTER MAN Hospital Encounter Department of Radiology in [address] [address] Prudence Mena MPAS, P.A.-C. Pneumonia Discharge Disposition: Home or Self Care 07/11/2024 11:08 AM LOBSTER MAN - 07/11/2024 11:16 AM LOBSTER MAN Hospital Encounter Department of Laboratory Medicine in [place] [address] [place] [address] Prudence Mena MPAS, P.A.-C. Pneumonia Discharge Disposition: Home or Self Care 07/11/2024 11:07 AM LOBSTER MAN Hospital Encounter Department of Laboratory Medicine in [address] [facility] [address] Prudence Mena MPAS, P.A.-C. Blood In Stool Discharge Disposition: Home or Self Care 07/11/2024 10:40 AM LOBSTER MAN Office Visit Department of Community Internal Medicine in [address] [place] [address] Prudence Mena MPAS, P.A.-C. Hypokalemia (Primary Dx); Pneumonia; Effusion Pleural; Blood In Stool 07/11/2024 Clinical Communication Department of Community Internal Medicine in [address] [facility] [address] Prudence Mena MPAS, P.A.-C. 07/11/2024 Orders Only Department of Community Internal Medicine in [address] [place] [address] Prudence Mena MPAS, P.A.-C. Pneumonia (Primary Dx) 06/11/2024 3:30 PM LOBSTER MAN Office Visit Department of Family Medicine, [facility], in [address] [facility] [address] Kaley Jones APRN, C.N.P., D.N.P. Infection Upper Respiratory (Primary Dx) 06/11/2024 Nurse Triage Department of Community Internal Medicine in [address] [place] [phone] Eduardo Ding R.N. Cough from Last 3 [...] = 0.6 oz pur e alcohol) socially [facility] Utilities Answer Date Recorded In the past 12 months has e [employer], oil, or water [employer] threatened to shut off services in your [...] Answer Date Recorded PHQ-2 Score 6 07/10/2024 [facility] - Occupational [...] Comments Blood Pressure 138/86 07/28/2024 9:13 AM LOBSTER MAN Pulse 112 07/28/2024 9:13 AM LOBSTER MAN Temperature 35.5 C (95.9 F) 07/28/2024 9:13 AM LOBSTER MAN Respiratory Rate 18 07/28/2024 9:13 AM LOBSTER MAN Oxygen Saturation 94% 07/28/2024 9:13 AM LOBSTER MAN Inhaled Oxygen Concentration - - Weight 99.7 kg (219 lb 12.8 oz) 07/17/2024 7:14 PM LOBSTER MAN Height 163 cm (5' 4.17) 07/17/2024 3:00 PM LOBSTER MAN Body Mass Index 37.53 07/17/2024 3:00 PM LOBSTER MAN Plan of Treatment Upcoming Encounters Date Type Department Care Team (Late st Contact Info) Description 07/29/2024 10:00 AM LOBSTER MAN Infusion Department of Infusion Therapy in [address] [phone] Melinda Isaac APRN, C.N.P. [address] [place] [phone] 07/29/2024 2:20 PM LOBSTER MAN Office Visit Department of Community Internal Medicine in [address] [phone] Prudence Mena MPAS, P.A.-C. [address] [place] [phone] 07/30/2024 9:00 AM LOBSTER MAN Infusion Department of Infusion Therapy in [address] [address] Melinda Isaac APRN, C.N.P. [address] [place] [phone] 07/31/2024 8:00 AM LOBSTER MAN Infusion Department of Infusion Therapy in [address] [address] Melinda Isaac APRN, C.N.P. [address] [place] [phone] 08/01/2024 7:00 AM LOBSTER MAN Infusion Department of Infusion Therapy in [address] [address] Melinda Isaac APRN, C.N.P. [address] [place] [phone] 08/02/2024 9:00 AM LOBSTER MAN Infusion Department of Infusion Therapy in [address] [phone] Melinda Isaac APRN, C.N.P. [address] [place] [phone] 08/02/2024 12:30 PM LOBSTER MAN Clinical Communication Virtual Review in [place], [place] [address] [place] [address] 08/03/2024 9:00 AM LOBSTER MAN Infusion Department of Infusion Therapy in [address] [phone] Melinda Isaac APRN, C.N.P. [address] [place] [phone] 08/04/2024 9:00 AM LOBSTER MAN Infusion Department of Infusion Therapy in [address] [phone] Melinda Isaac APRN, C.N.P. [address] [place] [phone] 08/05/2024 8:45 AM LOBSTER MAN Appointment Department of Radiology, [facility], in [place], [place] [address] [place] [phone] Kayleigh Small M.D. [address] [place] [phone] 08/05/2024 9:00 AM LOBSTER MAN Infusion Department of Infusion Therapy in [address] [phone] Melinda Isaac APRN, C.N.P. [address] [place] [phone] 08/05/2024 11:00 AM LOBSTER MAN Office Visit Section of Infectious Diseases in [place], [place] [address] [place] [phone] Kayleigh Small M.D. [address] [place] [phone] 08/06/2024 9:00 AM LOBSTER MAN Infusion Department of Infusion Therapy in [address] [phone] Melinda Isaac APRN, C.N.P. [address] [place] [phone] 08/07/2024 9:00 AM LOBSTER MAN Infusion Department of Infusion Therapy in [address] [phone] Melinda Isaac APRN, C.N.P. [address] [place] [phone] 08/08/2024 9:00 AM LOBSTER MAN Infusion Department of Infusion Therapy in [address] [phone] Melinda Isaac APRN, C.N.P. [address] [place] [phone] 08/09/2024 9:00 AM LOBSTER MAN Infusion Department of Infusion Therapy in [address] [phone] Melinda Isaac APRN, C.N.P. [address] [place] [phone] 08/10/2024 9:00 AM LOBSTER MAN Infusion Department of Infusion Therapy in [address] [address] Melinda Isaac APRN, C.N.P. [address] [place] [phone] 08/11/2024 9:00 AM LOBSTER MAN Infusion Department of Infusion Therapy in [address] [phone] Melinda Isaac APRN, C.N.P. [address] [place] [phone] 08/12/2024 9:00 AM LOBSTER MAN Infusion Department of Infusion Therapy in [address] [phone] Melinda Isaac APRN, C.N.P. [address] [place] [phone] 08/13/2024 8:30 AM LOBSTER MAN Infusion Department of Infusion Therapy in [address] [phone] Melinda Isaac APRN, C.N.P. [address] [place] [phone] 08/14/2024 9:00 AM LOBSTER MAN Infusion Department of Infusion Therapy in [address] [phone] Melinda Isaac APRN, C.N.P. [address] [place] [phone] 08/15/2024 9:00 AM LOBSTER MAN Infusion Department of Infusion Therapy in [address] [phone] Melinda Isaac APRN, C.N.P. [address] [place] [phone] 08/16/2024 9:00 AM LOBSTER MAN Infusion Department of Infusion Therapy in [address] [phone] Melinda Isaac APRN, C.N.P. [address] [place] [phone] 08/17/2024 9:00 AM LOBSTER MAN Infusion Department of Infusion Therapy in [address] [address] Melinda Isaac APRN, C.N.P. [address] [place] [phone] 08/18/2024 9:00 AM LOBSTER MAN Infusion Department of Infusion Therapy in [address] [address] Melinda Isaac APRN, C.N.P. [address] [place] [phone] Health Maintenance Due Date Last Done Comments [...] ED patients; some inpatients) 07/26/2024 10:37 AM LOBSTER MAN DX CHEST AP OR PA AND LATERAL 2 VIEWS RAD - Semiurgent (Fast; most ED patients; some inpatients) 07/26/2024 9:54 AM LOBSTER MAN BASIC METABOLIC PANEL, S/P STAT 07/26/2024 9:44 AM LOBSTER MAN SEDIMENTATION RATE, B STAT 07/26/2024 9:44 AM LOBSTER MAN C-REACTIVE PROTEIN (CRP), S/P STAT 07/26/2024 9:44 AM LOBSTER MAN CBC WITH DIFFERENTIAL, B STAT 07/26/2024 9:[address] CHEST WITH IV CONTRAST RAD - Routine (most inpatients and all outpatients) 07/24/2024 10:24 AM LOBSTER MAN Pneumonia ALKALINE PHOSPHATASE, S/P Routine 07/24/2024 10:02 AM LOBSTER MAN Drying Machine Operator Antibiotic Treatment ALANINE AMINOTRANSFERASE (ALT), S/P Routine 07/24/2024 10:02 AM LOBSTER MAN Mcc Antibiotic Treatment CREATININE WITH EGFR, S/P Routine 07/24/2024 10:02 AM LOBSTER MAN Mcc Antibiotic Treatment CBC WITH DIFFERENTIAL, B Routine 07/24/2024 10:02 AM LOBSTER MAN Mcc Antibiotic Treatment BASIC METABOLIC PANEL, S/P Routine 07/21/2024 9:24 AM LOBSTER MAN Pneumonia CBC WITH DIFFERENTIAL, B Routine 07/21/2024 9:24 AM LOBSTER MAN Pneumonia DX CHEST AP OR PA AND LATERAL 2 VIEWS RAD - Routine (most inpatients and all outpatients) 07/19/2024 1:04 PM LOBSTER MAN NOCTURNAL OXYGEN STUDY - RT Routine 07/19/2024 12:24 PM LOBSTER MAN DX CHEST AP OR PA AND LATERAL 2 VIEWS RAD - Routine (most inpatients and all outpatients) 07/19/2024 9:10 AM LOBSTER MAN ADULT OXYGEN THERAPY Routine 07/19/2024 8:01 AM LOBSTER MAN BASIC METABOLIC PANEL, S/P Routine 07/19/2024 6:02 AM LOBSTER MAN CBC WITHOUT DIFFERENTIAL, B Routine 07/19/2024 6:[address] PERIPHERALLY INSERTED CENTRAL CATHETER (PICC) Routine 07/18/2024 8:43 PM LOBSTER MAN ADULT OXYGEN THERAPY Routine 07/18/2024 8:01 PM LOBSTER MAN DX CHEST AP OR PA AND LATERAL 2 VIEWS RAD - Routine (most inpatients and all outpatients) 07/18/2024 10:15 AM LOBSTER MAN ADULT OXYGEN THERAPY Routine 07/18/2024 8:00 AM LOBSTER MAN ADULT OXYGEN THERAPY Routine 07/17/2024 8:01 PM LOBSTER MAN HIV-1/-2 AG AND AB SCREEN, PLASMA Routine 07/17/2024 5:05 PM LOBSTER MAN ADULT OXYGEN THERAPY Routine 07/17/2024 8:01 AM LOBSTER MAN ADULT OXYGEN THERAPY Routine 07/16/2024 8:01 PM LOBSTER MAN RESPIRATORY ASSESS AND TREAT Routine 07/16/2024 2:00 PM LOBSTER MAN VANCOMYCIN, TROUGH, S Timed 07/16/2024 10:31 AM LOBSTER MAN ADULT OXYGEN THERAPY Routine 07/16/2024 8:01 AM LOBSTER MAN ADULT OXYGEN THERAPY Routine 07/15/2024 8:01 PM LOBSTER MAN ADULT OXYGEN THERAPY Routine 07/15/2024 6:49 PM LOBSTER MAN ADULT OXYGEN THERAPY Routine 07/15/2024 6:49 PM LOBSTER MAN ADULT OXYGEN THERAPY Routine 07/15/2024 6:49 PM LOBSTER MAN DX CHEST 1 VIEW RAD - Routine (most inpatients and all outpatients) 07/15/2024 4:51 PM LOBSTER MAN BACTERIAL CULTURE, AEROBIC + SUSC Routine 07/15/2024 4:00 PM LOBSTER MAN Empyema Pleural (HCC) ACTINOMYCES CULTURE Routine 07/15/2024 4 :00 PM LOBSTER MAN Empyema Pleural (HCC) MYCOBACTERIAL CULTURE, V Routine 07/15/2024 4:00 PM LOBSTER MAN Empyema Pleural (HCC) FUNGAL SMEAR Routine 07/15/2024 4:00 PM LOBSTER MAN Empyema Pleural (HCC) LEGIONELLA CULTURE Routine 07/15/2024 4: 00 PM LOBSTER MAN Empyema Pleural (HCC) ACID FAST SMEAR FOR MYCOBACTERIUM Routine 07/15/2024 4:00 PM LOBSTER MAN Empyema Pleural (HCC) GRAM STAIN Routine 07/15/2024 4:00 PM LOBSTER MAN Empyema Pleural (HCC) FUNGAL CULTURE, ROUTINE Routine 07/15/2024 4:00 PM LOBSTER MAN Empyema Pleural (HCC) BACTERIAL CULTURE, ANAEROBIC + SUSC Routine 07/15/2024 4:00 PM LOBSTER MAN Empyema Pleural (HCC) BACTERIAL CULTURE, AEROBIC + SUSC Routine 07/15/2024 2:24 PM LOBSTER MAN Empyema Pleural (HCC) MYCOBACTERIAL CULTURE, V Routine 07/15/2024 2:24 PM LOBSTER MAN Empyema Pleural (HCC) FUNGAL SMEAR Routine 07/15/2024 2:24 PM LOBSTER MAN Empyema Pleural (HCC) ACID FAST SMEAR FOR MYCOBACTERIUM Routine 07/15/2024 2:24 PM LOBSTER MAN Empyema Pleural (HCC) GRAM STAIN Routine 07/15/2024 2:24 PM LOBSTER MAN Empyema Pleural (HCC) FUNGAL CULTURE, ROUTINE Routine 07/15/2024 2:24 PM LOBSTER MAN Empyema Pleural (HCC) LDA ANE ARTERIAL LINE INSERTION Routine 07/15/2024 1:31 PM LOBSTER MAN VT ARTL CATH/CNULA MONITOR PERC Routine 07/15/2024 1:31 PM LOBSTER MAN LDA ANE ENDOTRACHEAL AIRWAY Routine 07/15/2024 1:17 PM LOBSTER MAN THORACOSCOPY - DECORTICATION 07/15/2024 12:32 PM LOBSTER MAN Empyema Pleural (HCC) TYPE AND SCREEN STAT 07/15/2024 7:50 AM LOBSTER MAN MRSA/STAPHYLOCOCCUS AUREUS, NASAL, BY PCR Routine 07/14/2024 10:39 AM LOBSTER MAN BASIC METABOLIC PANEL, S/P Routine 07/14/2024 4:09 AM LOBSTER MAN DX CHEST PORTABLE 1 VIEW RAD - Routine (most inpatients and all outpatients) 07/13/2024 9:07 PM LOBSTER MAN CBC WITHOUT DIFFERENTIAL, B Routine 07/13/2024 8:14 PM LOBSTER MAN OUTSIDE DX CHEST Routine 07/13/2024 8:40 AM LOBSTER MAN OUTSIDE CT BODY Routine 07/13/2024 12:05 AM LOBSTER MAN DX CHEST AP OR PA AND LATERAL 2 VIEWS RAD - Routine (most inpatients and all outpatients) 07/11/2024 11:26 AM LOBSTER MAN Pneumonia BASIC METABOLIC PANEL, S/P Routine 07/11/2024 11:17 AM LOBSTER MAN Pneumonia CBC WITH DIFFERENTIAL, B Routine 07/11/2024 11:17 AM LOBSTER MAN Pneumonia OUTSIDE CT BODY Routine 06/30/2024 11:45 AM LOBSTER MAN OUTSIDE DX CHEST Routine 06/30/2024 10:05 AM LOBSTER MAN OUTSIDE DX CHEST Routine 06/26/2024 2:20 PM LOBSTER MAN from Last 3 Months Results * CT Chest Angiogram and Pulmonary Arteries with IV Contrast (07/26/2024 10:37 AM LOBSTER MAN) Anatomical Region Laterality Modality Chest, Cardiovascular RST LO S, Thoracic ARZ LOS, Thoracic FLA LOS N/A Computed Tomography 07/26/2024 10:4 2 AM LOBSTER MAN Impressions 07/26/2024 10:46 AM LOBSTER MAN 1. Negative for acute pulmonary embolism. 2. Similar findings of multifocal pneumonia. 3. Stable small left pleural effusion. Narrative 07/26/2024 10:46 AM LOBSTER MAN EXAM: CT CHEST ANGIOGRAM AND PULMONARY ARTERIES [...] and Lateral 2 Views (07/26/2024 9:54 AM LOBSTER MAN) Only the most recent of5 resultswithin the time period is included. Anatomical Region Laterality Modality Chest, Thoracic RST LOS, Tho racic ARZ LOS, Thoracic FLA LOS N/A Digital Radiography Impressions 07/26/2024 9:59 AM LOBSTER MAN Right upper extremity PICC with tip projected over the right atrium. Small left pleural effusion, similar to prior. Scattered linear scarring/atelectasis. The groundglass and tree-in-bud opacities seen on prior CT are not well seen within the limits of radiography. July 24, 2024 and July 19, 2024 comparisons. Narrative 07/26/2024 9:59 AM LOBSTER MAN EXAM: DX CHEST AP OR PA AND [...] * (ABNORMAL) Sedimentation Rate (07/26/2024 9:44 AM LOBSTER MAN) Sedimentation Rate, B 102(H) 0 - 29 mm/1 h 07/26/2024 1:33 PM LOBSTER MAN RDWG Blood (Blood, Venous) 07/26/2024 9:44 AM LOBSTER MAN 07/26/2024 12:52 PM LOBSTER MAN Dilcia Valero APRN, C.N.P. LAB BLOOD ADD-ON Final Result [facility] [address] [place] [address], [facility] RDWG [facility] [place] [address] [place] [address] * (ABNORMAL) CBC with Differential, Blood (07/26/2024 9:44 AM LOBSTER MAN) Only the most recent of4 resultswithin the time period is included. Hemoglobin 9.8(L) 11.6 - 15.0 g/dL 07/26/2024 9:55 AM LOBSTER MAN CNFL Hematocrit 31.4(L) 35.5 - 44.9 % 07/26/2024 9:55 AM LOBSTER MAN CNFL Erythrocytes 3.55(L) 3.92 - 5.13 x10(12)/L 07/26/2024 9:55 AM LOBSTER MAN CNFL MCV 88.5 78.2 - 97.9 fL 07/26/2024 9:55 AM LOBSTER MAN CNFL RBC Distrib Width 15.4 12.2 - 16.1 % 07/26/2024 9:55 AM LOBSTER MAN CNFL Platelet Count 792(H) 157 - 371 x10(9)/L 07/26/2024 9:55 AM LOBSTER MAN CNFL Leukocytes 11.1(H) 3.4 - 9.6 x10(9)/L 07/26/2024 9:55 AM LOBSTER MAN CNFL Neutrophils 8.16(H) 1.56 - 6.45 x10(9)/L 07/26/2024 9:55 AM LOBSTER MAN CNFL Lymphocytes 1.74 0.95 - 3.07 x10(9)/L 07/26/2024 9:55 AM LOBSTER MAN CNFL Monocytes 0.79 0.26 - 0.81 x10(9)/L 07/26/2024 9:55 AM LOBSTER MAN CNFL Eosinophils 0.36 0.03 - 0.48 x10(9)/L 07/26/2024 9:55 AM LOBSTER MAN CNFL Basophils 0.07 0.01 - 0.08 x10(9)/L 07/26/2024 9:55 AM LOBSTER MAN CNFL Blood (Blood, Venous) 07/26/2024 9:44 AM LOBSTER MAN 07/26/2024 9:48 AM LOBSTER MAN us Dilcia Valero APRN, C.N.P. LAB BLOOD ADD-ON Final Result [facility] [address] [place] [phone], [facility] CNFL [facility] in [address] [address] * (ABNORMAL) CRP (C-Reactive Protein) (07/26/2024 9:44 AM LOBSTER MAN) C-Reactive Protein (CRP), P 43.3(H) <5.0 mg/L 07/26/2024 10:15 AM LOBSTER MAN CNFL Blood (Blood, Venous) 07/26/2024 9:44 AM LOBSTER MAN 07/26/2024 9:48 AM LOBSTER MAN Dilcia Valero APRN, C.N.P. LAB BLOOD ADD-ON Final Result [facility] [address] [place] [id number], [facility] CNFL [facility] [place] [address] * Basic Metabolic Panel (07/26/2024 9:44 AM LOBSTER MAN) Only the most recent of5 resultswithin the time period is included. Potassium, P 3.9 3.6 - 5.2 mmol/L 07/26/2024 10:15 AM LOBSTER MAN CNFL Sodium, P 141 135 - 145 mmol/L 07/26/2024 10:15 AM LOBSTER MAN CNFL Chloride, P 105 98 - 107 mmol/L 07/26/2024 10:15 AM LOBSTER MAN CNFL Bicarbonate, P 25 22 - 29 mmol/L 07/26/2024 10:15 AM LOBSTER MAN CNFL Anion Gap, P 11 7 - 15 07/26/2024 10:15 AM LOBSTER MAN CNFL BUN (Blood Urea Nitrogen), P 10 6 - 21 mg/dL 07/26/2024 10:15 AM LOBSTER MAN CNFL Creatinine 0.62 0.59 - 1.04 mg/dL 07/26/2024 10:15 AM LOBSTER MAN CNFL Estimated GFR (eGFR) >90 >=60 mL/min/BSA 07/26/2024 10:15 AM LOBSTER MAN CNFL Comment: Estimated GFR calculated using the 2020 CKD_EPI creatinine equation. Calcium, Total, P 8.8 8.6 - 10.0 mg/dL 07/26/2024 10:15 AM LOBSTER MAN CNFL Glucose, P 122 70 - 140 mg/dL 07/26/2024 10:15 AM LOBSTER MAN CNFL Blood (Blood, Venous) 07/26/2024 9:44 AM LOBSTER MAN 07/26/2024 9:48 AM LOBSTER MAN us Dilcia Valero APRN, C.N.P. LAB BLOOD ADD-ON Final Result Performing Organization Address [facility]/State[facility] Co de Phone Number [facility] [address] [place] [phone], [facility] CNFL [facility] in [address] [address] * CT Chest with IV Contrast (07/24/2024 10:24 AM LOBSTER MAN) Anatomical Region Laterality Modality Chest, Thoracic RST LOS, Tho racic ARZ LOS, Thoracic ARZ LOS, Thoracic FLA LOS N/A Computed Tomography 07/24/2024 10:2 2 AM [employer]OBSTER MAN Impressions 07/24/2024 11:16 AM [employer]OBSTER MAN Pneumonia and small left pleural effusion. Narrative 07/24/2024 11:16 AM LOBSTER MAN EXAM: CT CHEST WITH IV CONTRAST COMPARISON: [...] * ALT (Alanine Aminotransferase) (07/24/2024 10:02 AM LOBSTER MAN) Alanine Aminotransferase (ALT), P 21 7 - 45 U/L 07/24/2024 10:24 AM [employer]OB[employer] MAN CNFL Blood (Blood, PICC) 07/24/2024 10:02 AM [employer] MAN 07/24/2024 10:07 AM [employer]OB[employer] MAN Kaylie Gutierrez.Susanna., M.S. LAB BLOOD ADD-ON Final [place] [address], [facility] in [address] [address] * Alkaline Phosphatase (07/24/2024 10:02 AM LOBSTER MAN) Alkaline Phosphatase, P 86 35 - 104 U/L 07/24/2024 10:24 AM LOBSTER MAN CNFL Blood (Blood, PICC) 07/24/2024 10:02 AM LOBSTER MAN 07/24/2024 10:07 AM LOBSTER MAN Kaylie Gutierrez.Susanna., M.S. LAB [place] [address], [facility] [place] [address] * Creatinine with Estimated GFR (07/24/2024 10:02 AM LOBSTER MAN) Pathologist [facility] Creatinine 0.60 0.59 - 1.04 mg/dL 07/24/2024 10:24 AM LOBSTER MAN CNFL Estimated GFR (eGFR) >90 >=60 mL/min/BSA 07/24/2024 10:24 AM LOBSTER MAN CNFL Comment: Estimated GFR calculated using the 2020 CKD_EPI creatinine equation. Blood (Blood, PICC) 07/24/2024 10:02 AM LOBSTER MAN 07/24/2024 10:07 AM LOBSTER MAN us Melinda TO, P.A.-C., M.S. LAB BLOOD ADD-ON Final Result [facility] [address] [place] [address], [facility] [place] [address] * (ABNORMAL) CBC without Differential (07/19/2024 6:02 AM LOBSTER MAN) Only the most recent of2 resultswithin the time period is included. Pathologist [facility] Hemoglobin 7.6(L) 11.6 - 15.0 g/dL 07/19/2024 6:38 AM LOBSTER MAN DTL Hematocrit 24.1(L) 35.5 - 44.9 % 07/19/2024 6:38 AM LOBSTER MAN DTL Erythrocytes 2.67(L) 3.92 - 5.13 x10(12)/L 07/19/2024 6:38 AM LOBSTER MAN DTL MCV 90.3 78.2 - 97.9 fL 07/19/2024 6:38 AM LOBSTER MAN DTL RBC Distrib Width 15.6 12.2 - 16.1 % 07/19/2024 6:38 AM LOBSTER MAN DTL Platelet Count 478(H) 157 - 371 x10(9)/L 07/19/2024 6:38 AM LOBSTER MAN DTL Leukocytes 9.8(H) 3.4 - 9.6 x10(9)/L 07/19/2024 6:38 AM LOBSTER MAN DTL Blood (Blood, Venous) 07/19/2024 6:02 AM LOBSTER MAN 07/19/2024 6:26 AM LOBSTER MAN us Lopez Garvey M.D. LAB BLOOD ADD-ON Final Resul t [facility] [address] [place] [address], [place] DTL [facility] [address] [place] [address] * Place peripherally inserted central catheter (PICC) (07/18/2024 8:43 PM LOBSTER MAN) Narrative [facility] - 07/18/2024 8:43 PM LOBSTER MAN Rayo Finch R.N. 07/18/2024 9:[address] [...] with ultrasound and measured to ensure appropriate [id number]-[id number] ratio of 45% or less: Right Basilic [...] to release the adhesive from the skin. http://[employer]/products/secureportiv Eveline Mariscal P.A.-C. PROCEDURE/MINOR SURGICAL ORDERABLES Final Result [facility] NA * HIV-1/-2 Ag and Ab Screen, Plasma (07/17/2024 5:05 PM LOBSTER MAN) Pathologist [facility] HIV-1/-2 Ag and Ab Screen, P Negative Negative 07/17/2024 8:57 PM LOBSTER MAN [facility] Comment: Negative result does not rule out HIV infection. If exposure to HIV infection occurred <14 days ago, contact the laboratory to request addition of HIV-1/HIV-2 RNA detection, Plasma (HIP12). Blood (Blood, Venous) 07/17/2024 5:05 PM LOBSTER MAN 07/17/2024 7:55 PM LOBSTER MAN us Arslan Pennington APRN, M.S. LAB MICROBIOLOGY - BLOOD ORDERABLES Final Result Performing Organization Address City/[facility]/ZIP Co de Phone Number [facility] [address] [place] [address] [facility] [address] [place] [address] * (ABNORMAL) Vancomycin, Trough (07/16/2024 10:31 AM LOBSTER MAN) [facility] Vancomycin, Trough, S 8.9(L) 10.0 - 20.0 mcg/mL 07/16/2024 12:10 PM LOBSTER MAN DTL Blood (Blood, Venous) 07/16/2024 10:31 AM LOBSTER MAN 07/16/2024 10:52 AM LOBSTER MAN us Patrick Mtz M.D., Ph.D. LAB BLOOD NON ADD-ON Fi nal Result Performing Organization Address [facility] Co de Phone Number [facility] [address] [place] [address], [facility] [address] [place] [address] * DX Chest 1 View (07/15/2024 4:51 PM LOBSTER MAN) Anatomical Region Laterality Modality Chest, Thoracic RST LOS, Tho racic ARZ LOS, Thoracic FLA LOS N/A Digital Radiography Impressions 07/15/2024 4:59 PM LOBSTER MAN Negative for postoperative purposes. Left thoracotomy with 2 left chest tubes. Small left-sided pneumothorax. New left perihilar consolidation/atelectasis since 07/13/2024. Increased bibasilar consolidation/atelectasis. Very low lung volumes accentuate heart size and bronchovascular markings. Narrative 07/15/2024 4:59 PM LOBSTER MAN EXAM: DX CHEST 1 VIEW Procedure Note [...] Culture, Aerobic + Susceptibility (07/15/2024 4:00 PM LOBSTER MAN) Only the most recent of2 resultswithin the time period is included. Pathologist [facility] Bacterial Culture, Aerobic + Susc No growth after 5 days of incubation. 07/20/2024 7:42 AM LOBSTER MAN DTL Tissue (Pleura, Left) 07/15/2024 4:00 PM LOBSTER MAN us Patrick Mtz M.D., Ph.D. LAB MICROBIOLOGY - GENE RAL ORDERABLES Final Result Performing Organization Address City/[facility]/ZIP Co de Phone Number [facility] [address] [place] [address], [facility] [address] [place] [address] * Fungal Smear (07/15/2024 4:00 PM LOBSTER MAN) Only the most recent of2 resultswithin the time period is included. Pathologist [facility] Fungal Smear Negative. 07/16/2024 8:52 AM LOBSTER MAN DTL Tissue (Pleura, Left) 07/15/2024 4:00 PM LOBSTER MAN us Patrick Mtz M.D., Ph.D. LAB MICROBIOLOGY - GENE RAL ORDERABLES Final Result Performing Organization Address City/[facility]/ZIP Co de Phone Number [facility] [address] [place] [address], [facility] [address] [place] [address] * Legionella Culture (07/15/2024 4:00 PM LOBSTER MAN) Legionella Culture No growth of Legionella species after 7 days of incubation 07/22/2024 8:16 AM LOBSTER MAN DTL Tissue (Pleura, Left) 07/15/2024 4:00 PM LOBSTER MAN us Patrick Mtz M.D., Ph.D. LAB MICROBIOLOGY - GENE RAL ORDERABLES Final Result [facility] [address] [place] [address], [facility] [address] [place] [address] * Acid Fast Smear for Mycobacterium (07/15/2024 4:00 PM LOBSTER MAN) Only the most recent of2 resultswithin the time period is included. Pathologist [facility] Acid Fast Smear For Mycobacterium Negative. 07/15/2024 10:18 PM LOBSTER MAN DTL Tissue (Pleura, Left) 07/15/2024 4:00 PM LOBSTER MAN us Patrick Mtz M.D., Ph.D. LAB MICROBIOLOGY - GENE RAL ORDERABLES Final Result Performing Organization Address City/[facility]/ZIP Co de Phone Number [facility] [address] [place] [address], [facility] [address] [place] [address] * Gram Stain (07/15/2024 4:00 PM LOBSTER MAN) Only the most recent of2 resultswithin the time period is included. Gram Stain No organisms seen. White blood cells, Many 07/15/2024 10:18 PM LOBSTER MAN DTL Tissue (Pleura, Left) 07/15/2024 4:00 PM LOBSTER MAN us Patrick Mtz M.D., Ph.D. LAB MICROBIOLOGY - GENE RAL ORDERABLES Final Result [facility] [address] [place] [address], [place] [facility] [address] [place] [address] * [place] ARTL CATH/CNULA MONITOR PERC, DEE DEE ANE ARTERIAL LINE INSERTION (07/15/2024 1:31 PM LOBSTER MAN) Narrative Sandra May APRN, CRNA - 07/15/2024 1:31 PM LOBSTER MAN Sandra May APRN, CRNA 07/15/2024 5:03 PM [...] LDA ANE ENDOTRACHEAL AIRWAY (07/15/2024 1:17 PM LOBSTER MAN) Narrative Aroldo Johnson RDmitryNDmitry - 07/15/2024 1:17 PM LOBSTER MAN Aroldo Johnson R.N. 07/15/2024 2:03 PM Airway Date/Time: 07/15/2024 1:17 PM Performed by: Aroldo Johnson R.N. Authorized by: Jamie Kumar M.D. Patient location during procedure: OR / Procedure Area PROCEDURE DETAILS: Mask difficulty assessment: oral/nasal airway needed Final airway type: video laryngoscope Laryngeal Manipulation: no Final best view of glottic structures - Cormack/Lehane Score: grade 1 ETT location: oral VL device: glide scope [place] scope blade size: 3 Tube size: 35 [...] DLETT would not advance through vocal folds. [place] used with single ETT then exchanged over [...] (with Reflex Antibody ID) (07/15/2024 7:50 AM LOBSTER MAN) ABORh AB Pos Not applicable 07/15/2024 8:36 AM LOBSTER MAN STRM Antibody Screen Negative Negative 07/15/2024 8:51 AM LOBSTER MAN STRM Type & Screen Expiration 07/18/2024 23:59 07/15/2024 8:36 AM LOBSTER MAN STRM Testing Location [facility] 07/15/2024 8:10 AM LOBSTER MAN STRM Blood (Blood, Venous) 07/15/2024 7:50 AM LOBSTER MAN 07/15/2024 8:10 AM LOBSTER MAN us Jamie Kumar M.D. LAB BLOOD BANK TEST ORDERABLES F inal Result [facility] [address] [place] [address], [place] STRM [facility] [address] [place] [address] * Staph aureus / MRSA, Nasal, PCR (07/14/2024 10:39 AM LOBSTER MAN) Staphylococcus aureus, PCR Negative Negative 07/14/2024 12:55 PM LOBSTER MAN DTL MRSA, PCR Negative Negative 07/14/2024 12:55 PM LOBSTER MAN DTL Swab (Nares) 07/14/2024 10:3 9 AM LOBSTER MAN 07/14/2024 11:06 AM LOBSTER MAN us Patrick Mtz M.D., Ph.D. LAB MICROBIOLOGY - GENE RAL ORDERABLES Final Result [facility] [address] [place] [address], [place] [facility] [address] [place] [address] * DX Chest Portable 1 View (07/13/2024 9:07 PM LOBSTER MAN) Anatomical Region Laterality Modality Chest, Thoracic RST LOS, Tho racic ARZ LOS, Thoracic FLA LOS N/A Digital Radiography Impressions 07/14/2024 7:27 AM LOBSTER MAN No significant change since earlier today. Bibasilar atelectasis. Small left loculated pleural effusion. Hazy opacification in the bilateral lungs, left greater than right. No discernible pneumothorax. Mildly enlarged cardiomediastinal silhouette. Narrative 07/14/2024 7:27 AM LOBSTER MAN EXAM: DX CHEST PORTABLE 1 VIEW Procedure [...] chest 2V-Outside Chest Xray (07/13/2024 8:40 AM LOBSTER MAN) Only the most recent of3 resultswithin the time period is included. Narrative [facility] - 07/13/2024 2:43 PM LOBSTER MAN This order has been created and auto-finalized to support the import of outside images. If available, original interpretation can be found on the Media Tab in Chart Review, in Document Viewer, as an image in QREADS or as an Addendum. If a re-interpretation or overread is required please follow defined workflow. us Provider Not In System IM DIAGNOSTIC IMAGING [place] OCEDURES Final Result Performing Organization Address [facility] de Phone Number [facility] NA * CT Angio Chest PE Protocol-Outside CT Body (07/13/2024 12:05 AM LOBSTER MAN) Only the most recent of2 resultswithin the time period is included. Narrative [facility] - 07/13/2024 2:48 PM LOBSTER MAN This order has been created and auto-finalized [...] PROCEDURES Final R esult Performing Organization Address [facility] de Phone Number [facility] NA from Last 3 Months Insurance [facility] Advance Directives For more information, please contact: [phone] * Full Code (Latest Code Status on File) Date Activated Date Inactivated Comments 07/15/2024 6:49 PM 07/20/2024 12:21 PM Question Answer Comments Full Code: Discussed * Full Code Date Activated Date Inactivated Comments 07/13/2024 7:54 PM 07/15/2024 6:49 PM Question Answer Comments Full Code: Not Discussed Due to: Patient not available Care Teams Shell Assembler Relationship Specialty Start Date End Date Prudence Mena MPAS, P.A.-C. [address] [place] [phone] PCP - General Internal Medicine 02/08/24
--- OUTSIDE RECORDS SUMMARY | 2024-07-28 22:50 | XMS_ITS | Clinical Summary ---
Author Organization [place] Address [address] [place] [address] Care Team Providers Care Field Service Engineer Name Role Phone Claudia Morillo MD Primary Care Provider [phone] Social History Tobacco Use Types Packs/Day Years Used Date Smoking Tobacco: Never Assessed Comments Unknown Sex and Gender Information Value Date Recorded Sex Assigned at Not on file Legal Sex Female 3:28 PM CDT Gender Identity Not on file Sexual Orientation Not on file Plan of Treatment Not on file Care Teams Field Service Engineer Relationship Specialty Start Date End Date Claudia Morillo MD [facility] [address] [place] [address] PCP - General 02/06/18
--- OUTSIDE RECORDS SUMMARY | 2024-07-28 22:50 | XMS_ITS ---
Author Organization [facility] Address [address] [place] [address] Care Team Providers Care Bar Tacker Name Role Phone Unavailable Unavailable Unavailable Surgery Details Not on file Complications Check Surgery Details section. Procedure Estimated Blood Loss Check Surgery Details section. Procedure Findings Check Surgery Details section. Procedure Specimens Taken Check Surgery Details section.
--- OUTSIDE RECORDS SUMMARY | 2024-07-28 22:50 | XMS_ITS | Referral Summary ---
Author Organization [facility] Address [address] [place] [address] Care Team Providers Care Engine Wiper Name Role Phone Prudence Mena P.A.-C. Primary Care Pro vider Source Comments Patient records contain information from all sites at [facility]. For routine questions regarding patient records, call [phone] during business hours, M-F 8:00 AM - 5:00 PM Central Time. Record requests for emergency care only can be directed to [phone] at any time.[facility] Encounters Date Type Department Care Team Description 07/28/2024 9:00 AM ELECTRIC LIFT TRUCK DRIVER Infusion Department of Infusion Therapy in [address] [address] Melinda Isaac APRN, C.N.P. Empyema Pleural (HCC) (Primary Dx) 07/27/2024 9:00 AM ELECTRIC LIFT TRUCK DRIVER Infusion Department of Infusion Therapy in [address] [address] Melinda Isaac APRN, C.N.P. Empyema Pleural (HCC) (Primary Dx) 07/26/2024 Results Follow-Up [facility] [address] [address] Lindsay Mejias R.N. 07/26/2024 9:14 AM ELECTRIC LIFT TRUCK DRIVER - 07/26/2024 2:06 PM ELECTRIC LIFT TRUCK DRIVER Emergency [facility] [address] [place], [place] [address] Dilcia Valero APRN, C.N.PDmitry Pain Chest Wall (Primary Dx) Discharge Disposition: Home or Self Care 07/26/2024 9:00 AM ELECTRIC LIFT TRUCK DRIVER Infusion Department of Infusion Therapy in [address] [address] Melinda Isaac APRN, C.N.P. Empyema Pleural (HCC) (Primary Dx) 07/25/2024 Orders Only Division of Thoracic Surgery in [place] [address] [place] [address] Eveline Mariscal P.A.-CDmitry 07/25/2024 9:00 AM ELECTRIC LIFT TRUCK DRIVER Infusion Department of Infusion Therapy in [address] [address] Melinda Isaac APRN, C.N.P. Empyema Pleural (HCC) (Primary Dx) 07/24/2024 Results Follow-Up Department of Community Internal Medicine in [place] [address] [place] [address] Prudence Mena MPAS, P.A.-C. 07/24/2024 9:03 AM ELECTRIC LIFT TRUCK DRIVER - 07/24/2024 11:59 PM ELECTRIC LIFT TRUCK DRIVER Hospital Encounter Department of Laboratory Medicine in [address] [phone] Melinda Cohen MPAS, P.A.-C., M.S. Usp Antibiotic Treatment Discharge Disposition: Home or Self Care 07/24/2024 9:03 AM ELECTRIC LIFT TRUCK DRIVER - 07/24/2024 11:59 PM ELECTRIC LIFT TRUCK DRIVER Hospital Encounter Department of Radiology in [address] [phone] Prudence Mena MPAS, P.A.-C. Pneumonia Discharge Disposition: Home or Self Care 07/24/2024 9:00 AM ELECTRIC LIFT TRUCK DRIVER Infusion Department of Infusion Therapy in [address] [phone] Melinda Isaac APRN, C.N.P. Empyema Pleural (HCC) (Primary Dx) 07/23/2024 Clinical Communication Department of Infusion Therapy in [address] [phone] Tita Bell R.N. Reschedule 07/23/2024 9:00 AM ELECTRIC LIFT TRUCK DRIVER Infusion Department of Infusion Therapy in [address] [phone] Melinda Isaac APRN C.N.P. Empyema Pleural (HCC) (Primary Dx) 07/22/2024 Clinical Communication Department of Community Internal Medicine in [address] [phone] Ros[facility] Follow-[facility] (Completed - DC'd 07/20/24 @ 1016) 07/22/2024 Patient Outreach Section of Infectious Diseases in [place], [place] [address] [place] [address] Sneha Barrett Care Coordination 07/22/2024 Results Follow-Up Department of Community Internal Medicine in [address] [phone] Prudence Mena MPAS, P.A.-C. 07/22/2024 9:00 AM ELECTRIC LIFT TRUCK DRIVER Infusion Department of Infusion Therapy in [address] [address] Melinda Isaac APRN, C.N.P. Empyema Pleural (HCC) (Primary Dx) 07/21/2024 9:00 AM ELECTRIC LIFT TRUCK DRIVER Infusion Department of Infusion Therapy in [address] [address] Melinda Isaac APRN, C.N.P. Empyema Pleural (HCC) (Primary Dx); Pneumonia 07/13/2024 7:53 PM ELECTRIC LIFT TRUCK DRIVER - 07/20/2024 10:16 AM ELECTRIC LIFT TRUCK DRIVER Hospital Encounter [facility], Tenth Floor [address] [place] [phone] Patrick Mtz M.D., Ph.D. Empyema Pleural (HCC) (Primary Dx) Discharge Disposition: Home or Self Care 07/19/2024 Clinical Communication Division of Thoracic Surgery in [place], [place] [address] [place] [phone] Melinda Isaac APRN, C.N.P. 07/18/2024 Clinical Communication [facility] [address] [place] [phone] Kayleigh Small M.D. Post Hospital Follow-up 07/15/2024 12:57 PM ELECTRIC LIFT TRUCK DRIVER Anesthesia Event [facility] [address] [place] [phone] Lanre Hayward M.D. Aroldo Johnson, R.N. 07/15/2024 1:10 PM ELECTRIC LIFT TRUCK DRIVER - 07/15/2024 4:33 PM ELECTRIC LIFT TRUCK DRIVER Surgery [facility] [address] [place] [phone] Patrick Mtz M.D., Ph.D. ROBOTIC THORACOSCOPY, DECORTICATION, PLEURODESIS, PROCEED INDICATED. 07/13/2024 Intake [facility] 07/11/2024 Clinical Communication Department of Community Internal Medicine in [address] [phone] Prudence Mena MPAS, P.A.-C. 07/11/2024 Orders Only Department of Community Internal Medicine in [address] [phone] Prudence Mena MPAS, P.A.-C. Pneumonia (Primary Dx) 07/11/2024 11:17 AM ELECTRIC LIFT TRUCK DRIVER - 07/11/2024 11:59 PM ELECTRIC LIFT TRUCK DRIVER Hospital Encounter Department of Radiology in [address] [phone] Prudence Mena MPAS, P.A.-C. Pneumonia Discharge Disposition: Home or Self Care 07/11/2024 11:07 AM ELECTRIC LIFT TRUCK DRIVER Hospital Encounter Department of Laboratory Medicine in [address] [phone] Prudence Mena MPAS, P.A.-C. Blood In Stool Discharge Disposition: Home or Self Care 07/11/2024 11:08 AM ELECTRIC LIFT TRUCK DRIVER - 07/11/2024 11:16 AM ELECTRIC LIFT TRUCK DRIVER Hospital Encounter Department of Laboratory Medicine in [address] [phone] Prudence Mean MPAS, P.A.-C. Pneumonia Discharge Disposition: Home or Self Care 07/11/2024 10:40 AM ELECTRIC LIFT TRUCK DRIVER Office Visit Department of Community Internal Medicine in [address] [phone] Prudence Mena MPAS, P.A.-C. Hypokalemia (Primary Dx); Pneumonia; Effusion Pleural; Blood In Stool 06/11/2024 3:30 PM ELECTRIC LIFT TRUCK DRIVER Office Visit Department of Family Medicine, [facility], in [address] [phone] Kaley Jones APRN, C.N.P., D.N.P. Infection Upper Respiratory (Primary Dx) 06/11/2024 Nurse Triage Department of Community Internal Medicine in [address] [phone] Eduardo Ding, R.N. Cough from Last 3 [...] muscle spasms. 45 tablet 5 10:13 AM ELECTRIC LIFT TRUCK DRIVER 07/19/19 25 Active metroNIDAZOLE (FlagyL) 500 mg tabletIndicat ions:Empyema Take 1 tablet (500 mg total) by mouth 3 (three) times a day for 17 days Indications: Empyema. 51 tablet 5 10:13 AM ELECTRIC LIFT TRUCK DRIVER 07/19/19 25 025 Active sennosides (senna) 8.6 mg tablet Take 2 tablets (17.2 mg total) by mouth daily. 07/20/19 25 Active cefTRIAXone in dextrose, iso osm, (Rocephin) 2 gram/50 mL IVBPIndicatio ns:Empyema Pleural (HCC) Infuse 50 mL (2 g total) into a venous catheter daily for 17 days. [place] ITC 07/19/19 25 025 Active ibuprofen 400 [...] Acute Pain Exception. 28 tablet 10:13 AM ELECTRIC LIFT TRUCK DRIVER 07/19/19 25 025 Discontinued(R eorder) ibuprofen 400 [...] for Sleep Medicine consult October 2023 in [place]. I have reordered her a consult as [...] 12/03/2021 Overview (09/03/2023): Follows with Psychiatry in [place]. Attends therapy in [place]. Attention Deficit With Hyperactivity Disorder Overview (09/03/2023): Follows with Psychiatry in [place]. Attends therapy in [place]. Major Depressive Disorder, Recurrent, Unspecifie d 12/03/2021 Overview (09/03/2023): Follows with Psychiatry in [place]. Attends therapy in [place]. Headache Unspecified 07/03/2019 Fracture Fifth Metacarpal Ba [...] = 0.6 oz pur e alcohol) socially [employer] Answer Date Recorded In the past 12 months has e [employer], gas, oil, or water Occipital threatened to shut off services in your [...] Never 07/27/2022 How often do you attend tenriism or yarsani serv ices? Never 07/27/2022 Do you belong to any clubs o r organizations such as tenriism groups, unions, fraternal or athletic groups, or [...] Answer Date Recorded PHQ-2 Score 6 07/10/2024 [facility] [place] [facility] - [...] Comments Blood Pressure 138/86 07/28/2024 9:13 AM ELECTRIC LIFT TRUCK DRIVER Pulse 112 07/28/2024 9:13 AM ELECTRIC LIFT TRUCK DRIVER Temperature 35.5 C (95.9 F) 07/28/2024 9:13 AM ELECTRIC LIFT TRUCK DRIVER Respiratory Rate 18 07/28/2024 9:13 AM ELECTRIC LIFT TRUCK DRIVER Oxygen Saturation 94% 07/28/2024 9:13 AM ELECTRIC LIFT TRUCK DRIVER Inhaled Oxygen Concentration - - Weight 99.7 kg (219 lb 12.8 oz) 07/17/2024 7:14 PM ELECTRIC LIFT TRUCK DRIVER Height 163 cm (5' 4.17) 07/17/2024 3:00 PM ELECTRIC LIFT TRUCK DRIVER Body Mass Index 37.53 07/17/2024 3:00 PM ELECTRIC LIFT TRUCK DRIVER Plan of Treatment Upcoming Encounters Date Type Department Care Team (Late st Contact Info) Description 07/29/2024 10:00 AM ELECTRIC LIFT TRUCK DRIVER Infusion Department of Infusion Therapy in [address] [phone] Melinda Isaac, FRED, C.N.P. [address] [place] [phone] 07/29/2024 2:20 PM ELECTRIC LIFT TRUCK DRIVER Office Visit Department of Community Internal Medicine in [place], [place] [address] [facility] [place] [phone] Prudence Mena MPAS, P.A.-C. [address] [place] [address] 07/30/2024 9:00 AM ELECTRIC LIFT TRUCK DRIVER Infusion Department of Infusion Therapy in [address] [phone] Melinda Isaac APRN, C.N.P. [address] [place] [phone] 07/31/2024 8:00 AM ELECTRIC LIFT TRUCK DRIVER Infusion Department of Infusion Therapy in [address] [phone] Melinda Isaac APRN, C.N.P. [address] [place] [phone] 08/01/2024 7:00 AM ELECTRIC LIFT TRUCK DRIVER Infusion Department of Infusion Therapy in [address] [phone] Melinda Isaac APRN, C.N.P. [address] [place] [phone] 08/02/2024 9:00 AM ELECTRIC LIFT TRUCK DRIVER Infusion Department of Infusion Therapy in [address] [phone] Melinda sIaac APRN, C.N.P. [address] [place] [phone] 08/02/2024 12:30 PM ELECTRIC LIFT TRUCK DRIVER Clinical Communication Virtual Review in [place], [place] 200 [place] [address] 08/03/2024 9:00 AM ELECTRIC LIFT TRUCK DRIVER Infusion Department of Infusion Therapy in [address] [phone] Melinda Isaac APRN, C.N.P. [address] [place] [phone] 08/04/2024 9:00 AM ELECTRIC LIFT TRUCK DRIVER Infusion Department of Infusion Therapy in [address] [phone] Melinda Isaac APRN, C.N.P. [address] [place] [phone] 08/05/2024 8:45 AM ELECTRIC LIFT TRUCK DRIVER Appointment Department of Radiology, [facility], in [place], [place] [address] [place] [phone] Kayleigh Small M.D. [address] [place] [phone] 08/05/2024 9:00 AM ELECTRIC LIFT TRUCK DRIVER Infusion Department of Infusion Therapy in [address] [phone] Melinda Isaac APRN, C.N.P. [address] [place] [phone] 08/05/2024 11:00 AM ELECTRIC LIFT TRUCK DRIVER Office Visit Section of Infectious Diseases in [place], [place] [address] [place] [phone] Kayleigh Small M.D. [address] [place] [phone] 08/06/2024 9:00 AM ELECTRIC LIFT TRUCK DRIVER Infusion Department of Infusion Therapy in [address] [phone] Melinda Isaac APRN, C.N.P. [address] [place] [phone] 08/07/2024 9:00 AM ELECTRIC LIFT TRUCK DRIVER Infusion Department of Infusion Therapy in [address] [phone] Melinda Isaac APRN, C.N.P. [address] [place] [phone] 08/08/2024 9:00 AM ELECTRIC LIFT TRUCK DRIVER Infusion Department of Infusion Therapy in [address] [phone] Melinda Isaac APRN, C.N.P. [address] [place] [phone] 08/09/2024 9:00 AM ELECTRIC LIFT TRUCK DRIVER Infusion Department of Infusion Therapy in [address] [phone] Melinda Isaac APRN, C.N.P. [address] [place] [phone] 08/10/2024 9:00 AM ELECTRIC LIFT TRUCK DRIVER Infusion Department of Infusion Therapy in [address] [address] Melinda Isaac APRN, C.N.P. [address] [place] [phone] 08/11/2024 9:00 AM ELECTRIC LIFT TRUCK DRIVER Infusion Department of Infusion Therapy in [address] [phone] Melinda Isaac APRN, C.N.P. [address] [place] [phone] 08/12/2024 9:00 AM ELECTRIC LIFT TRUCK DRIVER Infusion Department of Infusion Therapy in [address] [phone] Melinda Isaac APRN, C.N.P. [address] [place] [phone] 08/13/2024 8:30 AM ELECTRIC LIFT TRUCK DRIVER Infusion Department of Infusion Therapy in [address] [phone] Melinda Isaac APRN, C.N.P. [address] [place] [phone] 08/14/2024 9:00 AM ELECTRIC LIFT TRUCK DRIVER Infusion Department of Infusion Therapy in [address] [phone] Melinda Isaac APRN, C.N.P. [address] [place] [phone] 08/15/2024 9:00 AM ELECTRIC LIFT TRUCK DRIVER Infusion Department of Infusion Therapy in [address] [phone] Melinda Isaac APRN, C.N.P. [address] [place] [phone] 08/16/2024 9:00 AM ELECTRIC LIFT TRUCK DRIVER Infusion Department of Infusion Therapy in [address] [phone] Melinda Isaac APRN, C.N.P. [address] [place] [phone] 08/17/2024 9:00 AM ELECTRIC LIFT TRUCK DRIVER Infusion Department of Infusion Therapy in [address] [address] Melinda Isaac APRN, C.N.P. [address] [place] [phone] 08/18/2024 9:00 AM ELECTRIC LIFT TRUCK DRIVER Infusion Department of Infusion Therapy in [address] [phone] Melinda Isaac APRN, C.N.P. [address] [place] [phone] Procedures Procedure Name Priority Date/Time Associated Diagnosis Comments CT CHEST ANGIOGRAM AND PULMONARY ARTERIES WITH IV CONTRAST RAD - Semiurgent (Fast; most ED patients; some inpatients) 07/26/2024 10:37 AM ELECTRIC LIFT TRUCK DRIVER DX CHEST AP OR PA AND LATERAL 2 VIEWS RAD - Semiurgent (Fast; most ED patients; some inpatients) 07/26/2024 9:54 AM ELECTRIC LIFT TRUCK DRIVER BASIC METABOLIC PANEL, S/P STAT 07/26/2024 9:44 AM ELECTRIC LIFT TRUCK DRIVER SEDIMENTATION RATE, B STAT 07/26/2024 9:44 AM ELECTRIC LIFT TRUCK DRIVER C-REACTIVE PROTEIN (CRP), S/P STAT 07/26/2024 9:44 AM ELECTRIC LIFT TRUCK DRIVER CBC WITH DIFFERENTIAL, B STAT 07/26/2024 9:44 AM ELECTRIC LIFT TRUCK DRIVER CT CHEST WITH IV CONTRAST RAD - Routine (most inpatients and all outpatients) 07/24/2024 10:24 AM ELECTRIC LIFT TRUCK DRIVER Pneumonia ALKALINE PHOSPHATASE, S/P Routine 07/24/2024 10:02 AM ELECTRIC LIFT TRUCK DRIVER Usp Antibiotic Treatment ALANINE AMINOTRANSFERASE (ALT), S/P Routine 07/24/2024 10:02 AM ELECTRIC LIFT TRUCK DRIVER Peer Counselor Antibiotic Treatment CREATININE WITH EGFR, S/P Routine 07/24/2024 10:02 AM ELECTRIC LIFT TRUCK DRIVER Peer Counselor Antibiotic Treatment CBC WITH DIFFERENTIAL, B Routine 07/24/2024 10:02 AM ELECTRIC LIFT TRUCK DRIVER Usp Antibiotic Treatment BASIC METABOLIC PANEL, S/P Routine 07/21/2024 9:24 AM ELECTRIC LIFT TRUCK DRIVER Pneumonia CBC WITH DIFFERENTIAL, B Routine 07/21/2024 9:24 AM ELECTRIC LIFT TRUCK DRIVER Pneumonia DX CHEST AP OR PA AND LATERAL 2 VIEWS RAD - Routine (most inpatients and all outpatients) 07/19/2024 1:04 PM ELECTRIC LIFT TRUCK DRIVER NOCTURNAL OXYGEN STUDY - RT Routine 07/19/2024 12:24 PM ELECTRIC LIFT TRUCK DRIVER DX CHEST AP OR PA AND LATERAL 2 VIEWS RAD - Routine (most inpatients and all outpatients) 07/19/2024 9:10 AM ELECTRIC LIFT TRUCK DRIVER ADULT OXYGEN THERAPY Routine 07/19/2024 8:01 AM ELECTRIC LIFT TRUCK DRIVER BASIC METABOLIC PANEL, S/P Routine 07/19/2024 6:02 AM ELECTRIC LIFT TRUCK DRIVER CBC WITHOUT DIFFERENTIAL, B Routine 07/19/2024 6:02 AM ELECTRIC LIFT TRUCK DRIVER PLACE PERIPHERALLY INSERTED CENTRAL CATHETER (PICC) Routine 07/18/2024 8:43 PM ELECTRIC LIFT TRUCK DRIVER ADULT OXYGEN THERAPY Routine 07/18/2024 8:01 PM ELECTRIC LIFT TRUCK DRIVER DX CHEST AP OR PA AND LATERAL 2 VIEWS RAD - Routine (most inpatients and all outpatients) 07/18/2024 10:15 AM ELECTRIC LIFT TRUCK DRIVER ADULT OXYGEN THERAPY Routine 07/18/2024 8:00 AM ELECTRIC LIFT TRUCK DRIVER ADULT OXYGEN THERAPY Routine 07/17/2024 8:01 PM ELECTRIC LIFT TRUCK DRIVER HIV-1/-2 AG AND AB SCREEN, PLASMA Routine 07/17/2024 5:05 PM ELECTRIC LIFT TRUCK DRIVER ADULT OXYGEN THERAPY Routine 07/17/2024 8:01 AM ELECTRIC LIFT TRUCK DRIVER ADULT OXYGEN THERAPY Routine 07/16/2024 8:01 PM ELECTRIC LIFT TRUCK DRIVER RESPIRATORY ASSESS AND TREAT Routine 07/16/2024 2:00 PM ELECTRIC LIFT TRUCK DRIVER VANCOMYCIN, TROUGH, S Timed 07/16/2024 10:31 AM ELECTRIC LIFT TRUCK DRIVER ADULT OXYGEN THERAPY Routine 07/16/2024 8:01 AM ELECTRIC LIFT TRUCK DRIVER ADULT OXYGEN THERAPY Routine 07/15/2024 8:01 PM ELECTRIC LIFT TRUCK DRIVER ADULT OXYGEN THERAPY Routine 07/15/2024 6:49 PM ELECTRIC LIFT TRUCK DRIVER ADULT OXYGEN THERAPY Routine 07/15/2024 6:49 PM ELECTRIC LIFT TRUCK DRIVER ADULT OXYGEN THERAPY Routine 07/15/2024 6:49 PM ELECTRIC LIFT TRUCK DRIVER DX CHEST 1 VIEW RAD - Routine (most inpatients and all outpatients) 07/15/2024 4:51 PM ELECTRIC LIFT TRUCK DRIVER BACTERIAL CULTURE, AEROBIC + SUSC Routine 07/15/2024 4:00 PM ELECTRIC LIFT TRUCK DRIVER Empyema Pleural (HCC) ACTINOMYCES CULTURE Routine 07/15/2024 4 :00 PM ELECTRIC LIFT TRUCK DRIVER Empyema Pleural (HCC) MYCOBACTERIAL CULTURE, V Routine 07/15/2024 4:00 PM ELECTRIC LIFT TRUCK DRIVER Empyema Pleural (HCC) FUNGAL SMEAR Routine 07/15/2024 4:00 PM ELECTRIC LIFT TRUCK DRIVER Empyema Pleural (HCC) LEGIONELLA CULTURE Routine 07/15/2024 4: 00 PM ELECTRIC LIFT TRUCK DRIVER Empyema Pleural (HCC) ACID FAST SMEAR FOR MYCOBACTERIUM Routine 07/15/2024 4:00 PM ELECTRIC LIFT TRUCK DRIVER Empyema Pleural (HCC) GRAM STAIN Routine 07/15/2024 4:00 PM ELECTRIC LIFT TRUCK DRIVER Empyema Pleural (HCC) FUNGAL CULTURE, ROUTINE Routine 07/15/2024 4:00 PM ELECTRIC LIFT TRUCK DRIVER Empyema Pleural (HCC) BACTERIAL CULTURE, ANAEROBIC + SUSC Routine 07/15/2024 4:00 PM ELECTRIC LIFT TRUCK DRIVER Empyema Pleural (HCC) BACTERIAL CULTURE, AEROBIC + SUSC Routine 07/15/2024 2:24 PM ELECTRIC LIFT TRUCK DRIVER Empyema Pleural (HCC) MYCOBACTERIAL CULTURE, V Routine 07/15/2024 2:24 PM ELECTRIC LIFT TRUCK DRIVER Empyema Pleural (HCC) FUNGAL SMEAR Routine 07/15/2024 2:24 PM ELECTRIC LIFT TRUCK DRIVER Empyema Pleural (HCC) ACID FAST SMEAR FOR MYCOBACTERIUM Routine 07/15/2024 2:24 PM ELECTRIC LIFT TRUCK DRIVER Empyema Pleural (HCC) GRAM STAIN Routine 07/15/2024 2:24 PM ELECTRIC LIFT TRUCK DRIVER Empyema Pleural (HCC) FUNGAL CULTURE, ROUTINE Routine 07/15/2024 2:24 PM ELECTRIC LIFT TRUCK DRIVER Empyema Pleural (HCC) LDA ANE ARTERIAL LINE INSERTION Routine 07/15/2024 1:31 PM ELECTRIC LIFT TRUCK DRIVER [place] ARTL CATH/CNULA MONITOR PERC Routine 07/15/2024 1:31 PM ELECTRIC LIFT TRUCK DRIVER LDA ANE ENDOTRACHEAL AIRWAY Routine 07/15/2024 1:17 PM ELECTRIC LIFT TRUCK DRIVER THORACOSCOPY - DECORTICATION 07/15/2024 12:32 PM ELECTRIC LIFT TRUCK DRIVER Empyema Pleural (HCC) TYPE AND SCREEN STAT 07/15/2024 7:50 AM ELECTRIC LIFT TRUCK DRIVER MRSA/STAPHYLOCOCCUS AUREUS, NASAL, BY PCR Routine 07/14/2024 10:39 AM ELECTRIC LIFT TRUCK DRIVER BASIC METABOLIC PANEL, S/P Routine 07/14/2024 4:09 AM ELECTRIC LIFT TRUCK DRIVER DX CHEST PORTABLE 1 VIEW RAD - Routine (most inpatients and all outpatients) 07/13/2024 9:07 PM ELECTRIC LIFT TRUCK DRIVER CBC WITHOUT DIFFERENTIAL, B Routine 07/13/2024 8:14 PM ELECTRIC LIFT TRUCK DRIVER OUTSIDE DX CHEST Routine 07/13/2024 8:40 AM ELECTRIC LIFT TRUCK DRIVER OUTSIDE CT BODY Routine 07/13/2024 12:05 AM ELECTRIC LIFT TRUCK DRIVER DX CHEST AP OR PA AND LATERAL 2 VIEWS RAD - Routine (most inpatients and all outpatients) 07/11/2024 11:26 AM ELECTRIC LIFT TRUCK DRIVER Pneumonia BASIC METABOLIC PANEL, S/P Routine 07/11/2024 11:17 AM ELECTRIC LIFT TRUCK DRIVER Pneumonia CBC WITH DIFFERENTIAL, B Routine 07/11/2024 11:17 AM ELECTRIC LIFT TRUCK DRIVER Pneumonia OUTSIDE CT BODY Routine 06/30/2024 11:45 AM ELECTRIC LIFT TRUCK DRIVER OUTSIDE DX CHEST Routine 06/30/2024 10:05 AM ELECTRIC LIFT TRUCK DRIVER OUTSIDE DX CHEST Routine 06/26/2024 2:20 PM ELECTRIC LIFT TRUCK DRIVER from Last 3 Months Results * CT Chest Angiogram and Pulmonary Arteries with IV Contrast (07/26/2024 10:37 AM ELECTRIC LIFT TRUCK DRIVER) Anatomical Region Laterality Modality Chest, Cardiovascular RST LO S, Thoracic ARZ LOS, Thoracic FLA LOS N/A Computed Tomography 07/26/2024 10:4 2 AM ELECTRIC LIFT TRUCK DRIVER Impressions 07/26/2024 10:46 AM ELECTRIC LIFT TRUCK DRIVER 1. Negative for acute pulmonary embolism. 2. Similar findings of multifocal pneumonia. 3. Stable small left pleural effusion. Narrative 07/26/2024 10:46 AM ELECTRIC LIFT TRUCK DRIVER EXAM: CT CHEST ANGIOGRAM AND PULMONARY ARTERIES [...] and Lateral 2 Views (07/26/2024 9:54 AM ELECTRIC LIFT TRUCK DRIVER) Only the most recent of5 resultswithin the time period is included. Anatomical Region Laterality Modality Chest, Thoracic RST LOS, Tho racic ARZ LOS, Thoracic FLA LOS N/A Digital Radiography Impressions 07/26/2024 9:59 AM ELECTRIC LIFT TRUCK DRIVER Right upper extremity PICC with tip projected over the right atrium. Small left pleural effusion, similar to prior. Scattered linear scarring/atelectasis. The groundglass and tree-in-bud opacities seen on prior CT are not well seen within the limits of radiography. July 24, 2024 and July 19, 2024 comparisons. Narrative 07/26/2024 9:59 AM ELECTRIC LIFT TRUCK DRIVER EXAM: DX CHEST AP OR PA AND [...] * (ABNORMAL) Sedimentation Rate (07/26/2024 9:44 AM ELECTRIC LIFT TRUCK DRIVER) Pathologist [facility] Sedimentation Rate, B 102(H) 0 - 29 mm/1 h 07/26/2024 1:33 PM ELECTRIC LIFT TRUCK DRIVER RDWG Blood (Blood, Venous) 07/26/2024 9:44 AM ELECTRIC LIFT TRUCK DRIVER 07/26/2024 12:52 PM ELECTRIC LIFT TRUCK DRIVER Dilcia Valero APRN, C.N.P. LAB BLOOD ADD-ON Final Result [facility] [address] [place] [address], [facility]DW[facility] [place] [address] [place] [address] * (ABNORMAL) CBC with Differential, Blood (07/26/2024 9:44 AM ELECTRIC LIFT TRUCK DRIVER) Only the most recent of4 resultswithin the time period is included. Hemoglobin 9.8(L) 11.6 - 15.0 g/dL 07/26/2024 9:55 AM ELECTRIC LIFT TRUCK DRIVER CNFL Hematocrit 31.4(L) 35.5 - 44.9 % 07/26/2024 9:55 AM ELECTRIC LIFT TRUCK DRIVER CNFL Erythrocytes 3.55(L) 3.92 - 5.13 x10(12)/L 07/26/2024 9:55 AM ELECTRIC LIFT TRUCK DRIVER CNFL MCV 88.5 78.2 - 97.9 fL 07/26/2024 9:55 AM ELECTRIC LIFT TRUCK DRIVER CNFL RBC Distrib Width 15.4 12.2 - 16.1 % 07/26/2024 9:55 AM ELECTRIC LIFT TRUCK DRIVER CNFL Platelet Count 792(H) 157 - 371 x10(9)/L 07/26/2024 9:55 AM ELECTRIC LIFT TRUCK DRIVER CNFL Leukocytes 11.1(H) 3.4 - 9.6 x10(9)/L 07/26/2024 9:55 AM ELECTRIC LIFT TRUCK DRIVER CNFL Neutrophils 8.16(H) 1.56 - 6.45 x10(9)/L 07/26/2024 9:55 AM ELECTRIC LIFT TRUCK DRIVER CNFL Lymphocytes 1.74 0.95 - 3.07 x10(9)/L 07/26/2024 9:55 AM [employer] Monocytes 0.79 0.26 - 0.81 x10(9)/L 07/26/2024 9:55 AM [employer] [facility] Eosinophils 0.36 0.03 - 0.48 x10(9)/L 07/26/2024 9:55 AM [employer] [facility] Basophils 0.07 0.01 - 0.08 x10(9)/L 07/26/2024 9:55 AM [employer] [facility] Blood (Blood, Venous) 07/26/2024 9:44 AM [employer] DRIVER 07/26/2024 9:48 AM ELECT[employer] L[employer] TR[employer] DRIVER us Dilcia Valero APRN, C.N.P. LAB BLOOD ADD-ON Final Result Performing Organization Address City/State/[facility] [[email or web address]] Co de Phone Number [facility] [address] [place] [id number], [facility] CNFL [facility] in [address] [address] * (ABNORMAL) CRP (C-Reactive Protein) (07/26/2024 9:44 AM ELECTRIC LIFT TRUCK DRIVER) Pathologist [facility] C-Reactive Protein (CRP), P 43.3(H) <5.0 mg/L 07/26/2024 10:15 AM ELECTRIC LIFT TRUCK DRIVER CNFL Blood (Blood, Venous) 07/26/2024 9:44 AM ELECTRIC LIFT TRUCK DRIVER 07/26/2024 9:48 AM ELECTRIC LIFT TRUCK DRIVER us Dilcia Valero APRN, C.N.P. LAB BLOOD ADD-ON Final Result Performing Organization Address [facility]/State/ZIP Co de Phone Number [facility] [address] [place] [phone], [facility] CNFL [facility] in [address] [address] * Basic Metabolic Panel (07/26/2024 9:44 AM ELECTRIC LIFT TRUCK DRIVER) Only the most recent of5 resultswithin the time period is included. 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 CNFL Sodium, P 141 135 - 145 mmol/L 07/26/2024 10:15 AM ELECTRIC LIFT TRUCK DRIVER CNFL Chloride, P 105 98 - 107 mmol/L 07/26/2024 10:15 AM ELECTRIC LIFT TRUCK DRIVER CNFL Bicarbonate, P 25 22 - 29 mmol/L 07/26/2024 10:15 AM ELECTRIC LIFT TRUCK DRIVER CNFL Anion Gap, P 11 7 - 15 07/26/2024 10:15 AM ELECTRIC LIFT TRUCK DRIVER CNFL BUN (Blood Urea Nitrogen), P 10 6 - 21 mg/dL 07/26/2024 10:15 AM ELECTRIC LIFT TRUCK DRIVER CNFL Creatinine 0.62 0.59 - 1.04 mg/dL 07/26/2024 10:15 AM ELECTRIC LIFT TRUCK DRIVER CNFL Estimated GFR (eGFR) >90 >=60 mL/min/BSA 07/26/2024 10:15 AM ELECTRIC LIFT TRUCK DRIVER CNFL Comment: Estimated GFR calculated using the 2020 CKD_EPI creatinine equation. Calcium, Total, P 8.8 8.6 - 10.0 mg/dL 07/26/2024 10:15 AM ELECTRIC LIFT TRUCK DRIVER CNFL Glucose, P 122 70 - 140 mg/dL 07/26/2024 10:15 AM ELECTRIC LIFT TRUCK DRIVER CNFL Blood (Blood, Venous) 07/26/2024 9:44 AM ELECTRIC LIFT TRUCK DRIVER 07/26/2024 9:48 AM ELECTRIC LIFT TRUCK DRIVER us Dilcia Valero APRN, C.N.P. LAB BLOOD ADD-ON Final Result [facility] [address] [place] [phone], [facility] CNFL [facility] in [address] [place] [address] * CT Chest with IV Contrast (07/24/2024 10:24 AM ELECTRIC LIFT TRUCK DRIVER) Anatomical Region Laterality Modality Chest, Thoracic RST LOS, Tho racic ARZ LOS, Thoracic ARZ LOS, Thoracic FLA LOS N/A Computed Tomography 07/24/2024 10:2 2 AM ELECTRIC LIFT TRUCK DRIVER Impressions 07/24/2024 11:16 AM ELECTRIC LIFT TRUCK DRIVER Pneumonia and small left pleural effusion. Narrative 07/24/2024 11:16 AM ELECTRIC LIFT TRUCK DRIVER EXAM: CT CHEST WITH IV CONTRAST COMPARISON: [...] * ALT (Alanine Aminotransferase) (07/24/2024 10:02 AM ELECTRIC LIFT TRUCK DRIVER) Alanine Aminotransferase (ALT), P 21 7 - 45 U/L 07/24/2024 10:24 AM ELECTRIC LIFT TRUCK DRIVER CNFL Blood (Blood, PICC) 07/24/2024 10:02 AM ELECTRIC LIFT TRUCK DRIVER 07/24/2024 10:07 AM ELECTRIC LIFT TRUCK DRIVER us Melinda TO P.A.-C., M.S. LAB BLOOD ADD[place] [address], [place] [address] * Alkaline Phosphatase (07/24/2024 10:02 AM ELECTRIC LIFT TRUCK DRIVER) Alkaline Phosphatase, P 86 35 - 104 U/L 07/24/2024 10:24 AM ELECTRIC LIFT TRUCK DRIVER CNFL Blood (Blood, PICC) 07/24/2024 10:02 AM ELECTRIC LIFT TRUCK DRIVER 07/24/2024 10:07 AM ELECTRIC LIFT TRUCK DRIVER us Melinda TO P.A.-C., M.S. LAB BLOOD ADD-[place] [address], [place] [address] * Creatinine with Estimated GFR (07/24/2024 10:02 AM ELECTRIC LIFT TRUCK DRIVER) Creatinine 0.60 0.59 - 1.04 mg/dL 07/24/2024 10:24 AM ELECTRIC LIFT TRUCK DRIVER CNFL Estimated GFR (eGFR) >90 >=60 mL/min/BSA 07/24/2024 10:24 AM ELECTRIC LIFT TRUCK DRIVER CNFL Comment: Estimated GFR calculated using the 2020 CKD_EPI creatinine equation. Blood (Blood, PICC) 07/24/2024 10:02 AM ELECTRIC LIFT TRUCK DRIVER 07/24/2024 10:07 AM ELECTRIC LIFT TRUCK DRIVER us Melinda TO, PDmitryA.-C., M.S. LAB BLOOD ADD-ON Final Result [facility] [address] [place] [address], [facility] CNFL [facility] in [address] [address] * (ABNORMAL) CBC without Differential (07/19/2024 6:02 AM ELECTRIC LIFT TRUCK DRIVER) Only the most recent of2 resultswithin the time period is included. Hemoglobin 7.6(L) 11.6 - 15.0 g/dL 07/19/2024 6:38 AM ELECTRIC LIFT TRUCK DRIVER DTL Hematocrit 24.1(L) 35.5 - 44.9 % 07/19/2024 6:38 AM ELECTRIC LIFT TRUCK DRIVER DTL Erythrocytes 2.67(L) 3.92 - 5.13 x10(12)/L 07/19/2024 6:38 AM ELECTRIC LIFT TRUCK DRIVER DTL MCV 90.3 78.2 - 97.9 fL 07/19/2024 6:38 AM ELECTRIC LIFT TRUCK DRIVER DTL RBC Distrib Width 15.6 12.2 - 16.1 % 07/19/2024 6:38 AM ELECTRIC LIFT TRUCK DRIVER DTL Platelet Count 478(H) 157 - 371 x10(9)/L 07/19/2024 6:38 AM ELECTRIC LIFT TRUCK DRIVER DTL Leukocytes 9.8(H) 3.4 - 9.6 x10(9)/L 07/19/2024 6:38 AM ELECTRIC LIFT TRUCK DRIVER DTL Blood (Blood, Venous) 07/19/2024 6:02 AM ELECTRIC LIFT TRUCK DRIVER 07/19/2024 6:26 AM ELECTRIC LIFT TRUCK DRIVER us Lopez Garvey M.D. LAB BLOOD ADD-ON Final Resul t [facility] [address] [place], [place] [address] [address] [place] [address] * Place peripherally inserted central catheter (PICC) (07/18/2024 8:43 PM ELECTRIC LIFT TRUCK DRIVER) Narrative MMODAL - 07/18/2024 8:43 PM ELECTRIC LIFT TRUCK DRIVER Rayo Finch R.N. 07/18/2024 9:[address] [...] with ultrasound and measured to ensure appropriate bfzkefxe-[id number]-ydbn ratio of 45% or less: Right Basilic [...] to release the adhesive from the skin. [email or web address] us Eveline Mariscal P.A.-C. PROCEDURE/MINOR SURGICAL ORDERABLES Final Result Performing Organization Address City/[facility] [[email or web address]] Co de Phone Number MMODAL NA * HIV-1/-2 Ag and Ab Screen, Plasma (07/17/2024 5:05 PM ELECTRIC LIFT TRUCK DRIVER) [facility] HIV-1/-2 Ag and Ab Screen, P Negative Negative 07/17/2024 8:57 PM ELECTRIC LIFT TRUCK DRIVER [facility] Comment: Negative result does not rule out HIV infection. If exposure to HIV infection occurred <14 days ago, contact the laboratory to request addition of HIV-1/HIV-2 RNA detection, Plasma (HIP12). Blood (Blood, Venous) 07/17/2024 5:05 PM ELECTRIC LIFT TRUCK DRIVER 07/17/2024 7:55 PM ELECTRIC LIFT TRUCK DRIVER Shahram Abernathy APRN, C.N .P., M.S. LAB MICROBIOLOGY - BLOOD ORDERABLES Final Result Performing Organization Address City/[facility]/ZIP Co de Phone Number [facility] [address] [place] [address] [facility] [address] [place] [address] * (ABNORMAL) Vancomycin, Trough (07/16/2024 10:31 AM ELECTRIC LIFT TRUCK DRIVER) Vancomycin, Trough, S 8.9(L) 10.0 - 20.0 mcg/mL 07/16/2024 12:10 PM ELECTRIC LIFT TRUCK DRIVER DTL Blood (Blood, Venous) 07/16/2024 10:31 AM ELECTRIC LIFT TRUCK DRIVER 07/16/2024 10:52 AM ELECTRIC LIFT TRUCK DRIVER us Patrick Mtz M.D., Ph.D. LAB BLOOD NON ADD-ON Fi nal Result [facility] [address] [place] [address], [facility] [address] [place] [address] * DX Chest 1 View (07/15/2024 4:51 PM ELECTRIC LIFT TRUCK DRIVER) Anatomical Region Laterality Modality Chest, Thoracic RST LOS, Tho racic ARZ LOS, Thoracic FLA LOS N/A Digital Radiography Impressions 07/15/2024 4:59 PM ELECTRIC LIFT TRUCK DRIVER Negative for postoperative purposes. Left thoracotomy with 2 left chest tubes. Small left-sided pneumothorax. New left perihilar consolidation/atelectasis since 07/13/2024. Increased bibasilar consolidation/atelectasis. Very low lung volumes accentuate heart size and bronchovascular markings. Narrative 07/15/2024 4:59 PM ELECTRIC LIFT TRUCK DRIVER EXAM: DX CHEST 1 VIEW Procedure Note [...] Culture, Aerobic + Susceptibility (07/15/2024 4:00 PM ELECTRIC LIFT TRUCK DRIVER) Only the most recent of2 resultswithin the time period is included. Bacterial Culture, Aerobic + Susc No growth after 5 days of incubation. 07/20/2024 7:42 AM ELECTRIC LIFT TRUCK DRIVER DTL Tissue (Pleura, Left) 07/15/2024 4:00 PM ELECTRIC LIFT TRUCK DRIVER us Patrick Mtz M.D., Ph.D. LAB MICROBIOLOGY - GENE RAL ORDERABLES Final Result Performing Organization Address City[facility] [[email or web address]] Co de Phone Number [facility] [address] [place] [address] * Fungal Smear (07/15/2024 4:00 PM ELECTRIC LIFT TRUCK DRIVER) Only the most recent of2 resultswithin the time period is included. Fungal Smear Negative. 07/16/2024 8:52 AM ELECTRIC LIFT TRUCK DRIVER DTL Tissue (Pleura, Left) 07/15/2024 4:00 PM ELECTRIC LIFT TRUCK DRIVER Result Emma Mtz M.D., Ph.D. LAB MICROBIOLOGY - GENE RAL ORDERABLES Final Result Performing Organization Address City[facility]/ZIP Co de Phone Number [facility] [address] [place] [address], [place] [address] * Legionella Culture (07/15/2024 4:00 PM ELECTRIC LIFT TRUCK DRIVER) Legionella Culture No growth of Legionella species after 7 days of incubation 07/22/2024 8:16 AM ELECTRIC LIFT TRUCK DRIVER DTL Tissue (Pleura, Left) 07/15/2024 4:00 PM ELECTRIC LIFT TRUCK DRIVER us Patrick Mtz M.D., Ph.D. LAB MICROBIOLOGY - GENE RAL ORDERABLES Final Result Performing Organization Address [facility] [[email or web address]] Co de Phone Number [facility] [address] [place] [address] * Acid Fast Smear for Mycobacterium (07/15/2024 4:00 PM ELECTRIC LIFT TRUCK DRIVER) Only the most recent of2 resultswithin the time period is included. Acid Fast Smear For Mycobacterium Negative. 07/15/2024 10:18 PM ELECTRIC LIFT TRUCK DRIVER DTL Tissue (Pleura, Left) 07/15/2024 4:00 PM ELECTRIC LIFT TRUCK DRIVER Patrick Mtz M.D., Ph.D. LAB MICROBIOLOGY - GENE RAL ORDERABLES Final Result Performing Organization Address [facility] [[email or web address]] Co de Phone Number [facility] [address] [place] [address] * Gram Stain (07/15/2024 4:00 PM ELECTRIC LIFT TRUCK DRIVER) Only the most recent of2 resultswithin the time period is included. Pathologist [facility] Gram Stain No organisms seen. White blood cells, Many 07/15/2024 10:18 PM ELECTRIC LIFT TRUCK DRIVER DTL Tissue (Pleura, Left) 07/15/2024 4:00 PM ELECTRIC LIFT TRUCK DRIVER Patrick Mtz M.D., Ph.D. LAB MICROBIOLOGY - GENE RAL ORDERABLES Final Result Performing Organization Address City[facility] [[email or web address]] Co de Phone Number [facility] [address] [place] [address] * [place] ARTL CATH/CNULA MONITOR PERC, LDA ANE ARTERIAL LINE INSERTION (07/15/2024 1:31 PM ELECTRIC LIFT TRUCK DRIVER) Narrative Sandra May, BALER OPERATOR, VIBRATING SCREED OPERATOR - 07/15/2024 1:31 PM ELECTRIC LIFT TRUCK DRIVER Sandra May APRN, CRNA 07/15/2024 5:03 PM [...] LDA ANE ENDOTRACHEAL AIRWAY (07/15/2024 1:17 PM ELECTRIC LIFT TRUCK DRIVER) Narrative Aroldo Johnson RDmitryNDmitry - 07/15/2024 1:17 PM ELECTRIC LIFT TRUCK DRIVER Aroldo Johnson R.NDmitry 07/15/2024 2:03 PM Airway Date/Time: 07/15/2024 1:17 PM Performed by: Aroldo Johnson R.N. Authorized by: Jamie Kumar M.D. Patient location during procedure: OR / Procedure Area PROCEDURE DETAILS: Mask difficulty assessment: oral/nasal airway needed Final airway type: video laryngoscope Laryngeal Manipulation: no Final best view of glottic structures - Cormack/Lehane Score: grade 1 ETT location: oral VL device: glide scope [place] scope blade size: 3 Tube size: 35 [...] DLETT would not advance through vocal folds. [place] used with single ETT then exchanged over [...] (with Reflex Antibody ID) (07/15/2024 7:50 AM ELECTRIC LIFT TRUCK DRIVER) Pathologist [facility] ABORh AB Pos Not applicable 07/15/2024 8:36 AM ELECTRIC LIFT TRUCK DRIVER STRM Antibody Screen Negative Negative 07/15/2024 8:51 AM ELECTRIC LIFT TRUCK DRIVER STRM Type & Screen Expiration 07/18/2024 23:59 07/15/2024 8:36 AM ELECTRIC LIFT TRUCK DRIVER STRM Testing Location Sanjiv DEFAULT 07/15/2024 8:10 AM ELECTRIC LIFT TRUCK DRIVER STRM Blood (Blood, Venous) 07/15/2024 7:50 AM ELECTRIC LIFT TRUCK DRIVER 07/15/2024 8:10 AM ELECTRIC LIFT TRUCK DRIVER us Jamie Kumar M.D. LAB BLOOD BANK TEST ORDERABLES F inal Result [facility] [address] [place] [address], [facility] [address] [place] [address] * Staph aureus / MRSA, Nasal, PCR (07/14/2024 10:39 AM ELECTRIC LIFT TRUCK DRIVER) Pathologist [facility] Staphylococcus aureus, PCR Negative Negative 07/14/2024 12:55 PM ELECTRIC LIFT TRUCK DRIVER DTL MRSA, PCR Negative Negative 07/14/2024 12:55 PM ELECTRIC LIFT TRUCK DRIVER DTL Swab (Nares) 07/14/2024 10:3 9 AM ELECTRIC LIFT TRUCK DRIVER 07/14/2024 11:06 AM ELECTRIC LIFT TRUCK DRIVER us Patrick Mtz M.D., Ph.D. LAB MICROBIOLOGY - GENE RAL ORDERABLES Final Result [facility] [address] [place] [address], [facility] [address] [place] [address] * DX Chest Portable 1 View (07/13/2024 9:07 PM ELECTRIC LIFT TRUCK DRIVER) Anatomical Region Laterality Modality Chest, Thoracic RST LOS, Tho racic ARZ LOS, Thoracic FLA LOS N/A Digital Radiography Impressions 07/14/2024 7:27 AM ELECTRIC LIFT TRUCK DRIVER No significant change since earlier today. Bibasilar atelectasis. Small left loculated pleural effusion. Hazy opacification in the bilateral lungs, left greater than right. No discernible pneumothorax. Mildly enlarged cardiomediastinal silhouette. Narrative 07/14/2024 7:27 AM ELECTRIC LIFT TRUCK DRIVER EXAM: DX CHEST PORTABLE 1 VIEW Procedure [...] chest 2V-Outside Chest Xray (07/13/2024 8:40 AM ELECTRIC LIFT TRUCK DRIVER) Only the most recent of3 resultswithin the time period is included. Narrative IIMS - 07/13/2024 2:43 PM ELECTRIC LIFT TRUCK DRIVER This order has been created and auto-finalized to support the import of outside images. If available, original interpretation can be found on the Media Tab in Chart Review, in Document Viewer, as an image in QREADS or as an Addendum. If a re-interpretation or overread is required please follow defined workflow. us Provider Not In System [facility] DI[facility] [place] OCEDURES Final Result Performing Organization Address City[facility] [[email or web address]] Co de Phone Number II NA * CT Angio Chest PE Protocol-Outside CT Body (07/13/2024 12:05 AM ELECTRIC LIFT TRUCK DRIVER) Only the most recent of2 resultswithin the time period is included. Narrative IIMS - 07/13/2024 2:48 PM ELECTRIC LIFT TRUCK DRIVER This order has been created and auto-finalized [...] PROCEDURES Final R esult Performing Organization Address City[facility] [[email or web address]] Co de Phone Number II NA from Last 3 Months Insurance [facility] Advance Directives For more information, please contact: [phone] * Full Code (Latest Code Status on File) Date Activated Date Inactivated Comments 07/15/2024 6:49 PM 07/20/2024 12:21 PM Question Answer Comments Full Code: Discussed * Full Code Date Activated Date Inactivated Comments 07/13/2024 7:54 PM 07/15/2024 6:49 PM Question Answer Comments Full Code: Not Discussed Due to: Patient not available Care Teams Engine Wiper Relationship Specialty Start Date End Date Prudence Mena MPAS, P.A.-C. [address] [facility] [place] [address] PCP - General Internal Medicine 02/08/24
--- OUTSIDE RECORDS SUMMARY | 2024-07-28 22:50 | XMS_ITS | Encounter Summary ---
Author Organization [facility] Address [address] [place] [address] Care Team Providers Care Assistant Art Director Name Role Phone Prudence Mena P.A.-C. Primary Care Pro vider Reason for Visit * Reason Comments Outpatient Infusion Encounter Details Date Type Department Care Team (Late st Contact Info) Description 07/21/2024 9:00 AM DIRECTOR ENTERPRISE SALES Infusion Department of Infusion Therapy in [address] [phone] Melinda Isaac, FRED, C.N.P. [address] [place] [phone] Empyema Pleural (HCC) (Primary Dx); Pneumonia Social History Tobacco Use Types Packs/Day Years Used Date Smoking Tobacco: Former Cigarettes 1.5 0.1 S tarted: 06/21/2024 Passive Smoke Exposure: Past Smokeless Tobacco: Never Alcohol Use Standard Drinks/Week Comments Yes 0 (1 standard drink = 0.6 oz pur e alcohol) socially [facility] Utilities Answer Date Recorded In [...] Never 07/27/2022 How often do you attend jew or nondenominational serv ices? Never 07/27/2022 Do you belong to any clubs o r organizations such as jew groups, unions, fraternal or athletic groups, or [...] Answer Date Recorded PHQ-2 Score 6 07/10/2024 [facility] [place] [facility] Occupat ional [facility] - Occupational Stress [...] Comments Blood Pressure 137/89 07/21/2024 9:19 AM DIRECTOR ENTERPRISE SALES Pulse 103 07/21/2024 9:19 AM DIRECTOR [employer]TER[employer]ISE SALES Temperature 36 C (96.8 F) 07/21/2024 9:19 AM DIRECTOR ENTERPRISE SALES Respiratory Rate 18 07/21/2024 9:19 AM DIRECTOR ENTERPRISE SALES Oxygen Saturation 95% 07/21/2024 9:19 AM DIRECTOR ENTERPRISE SALES Inhaled Oxygen Concentration - - Weight - - Height - - Body Mass Index - - documented in this encounter Plan of Treatment Upcoming Encounters Date Type Department Care Team (Late st Contact Info) Description 07/29/2024 10:00 AM DIRECTOR ENTERPRISE SALES Infusion Department of Infusion Therapy in [address] [phone] Melinda Isaac APRN, C.N.P. [address] [place] [phone] 07/29/2024 2:20 PM DIRECTOR ENTER[employer]ISE SAL[employer] Office Visit Department of Community Internal Medicine in [place], [place] [address] [place] [phone] Prudence Mena MPAS, P.A.-C. 300 [place] [phone] 07/30/2024 9:00 AM DIRECTOR ENTERPRISE SALES Infusion Department of Infusion Therapy in [address] [phone] Melinda Isaac APRN, C.N.P. [address] [place] [phone] 07/31/2024 8:00 AM DIRECTOR ENTERPRISE SALES Infusion Department of Infusion Therapy in [address] [phone] Melinda Isaac APRN, C.N.P. [address] [place] [phone] 08/01/2024 7:00 AM DIRECTOR ENTERPRISE SALES Infusion Department of Infusion Therapy in [address] [phone] Melinda Isaac APRN, C.N.P. [address] [place] [phone] 08/02/2024 9:00 AM DIRECTOR ENTERPRISE SALES Infusion Department of Infusion Therapy in [address] [phone] Melinda Isaac APRN, C.N.P. [address] [place] [phone] 08/02/2024 12:30 PM DIRECTOR ENTERPRISE SALES Clinical Communication Virtual Review in [place], [place] 200 [place] [address] 08/03/2024 9:00 AM DIRECTOR ENTERPRISE SALES Infusion Department of Infusion Therapy in [address] [phone] Melinda Isaac APRN, C.N.P. [address] [place] [phone] 08/04/2024 9:00 AM DIRECTOR ENTERPRISE SALES Infusion Department of Infusion Therapy in [address] [phone] Melinda Isaac APRN, C.N.P. [address] [place] [phone] 08/05/2024 8:45 AM DIRECTOR ENTERPRISE SALES Appointment Department of Radiology, [facility], in [place], [place] [address] [place] [phone] Kayleigh Small M.D. [address] [place] [phone] 08/05/2024 9:00 AM DIRECTOR ENTERPRISE SALES Infusion Department of Infusion Therapy in [address] [phone] Melinda Isaac APRN, C.N.P. [address] [place] [phone] 08/05/2024 11:00 AM DIRECTOR ENTER[employer]ISE [employer]ES Office Visit Section of Infectious Diseases in [place], [place] [address] [place] [phone] Kayleigh Small M.D. [address] [place] [phone] 08/06/2024 9:00 AM DIRECTOR ENTERPRISE SALES Infusion Department of Infusion Therapy in [address] [phone] Melinda Isaac APRN, C.N.P. [address] [place] [phone] 08/07/2024 9:00 AM DIRECTOR ENTERPRISE SALES Infusion Department of Infusion Therapy in [address] [phone] Melinda Isaac APRN, C.N.P. [address] [place] [phone] 08/08/2024 9:00 AM DIRECTOR ENTERPRISE SALES Infusion Department of Infusion Therapy in [address] [phone] Melinda Isaac APRN, C.N.P. [address] [place] [phone] 08/09/2024 9:00 AM DIRECTOR ENTERPRISE SALES Infusion Department of Infusion Therapy in [address] [phone] Melinda Isaac APRN, C.N.P. [address] [place] [phone] 08/10/2024 9:00 AM DIRECTOR ENTERPRISE SALES Infusion Department of Infusion Therapy in [address] [phone] Melinda Isaac APRN, C.N.P. [address] [place] [phone] 08/11/2024 9:00 AM DIRECTOR ENTERPRISE SALES Infusion Department of Infusion Therapy in [address] [phone] Melinda Isaac APRN, C.N.P. [address] [place] [phone] 08/12/2024 9:00 AM DIRECTOR ENTERPRISE SALES Infusion Department of Infusion Therapy in [address] [phone] Melinda Isaac APRN, C.N.P. [address] [place] [phone] 08/13/2024 8:30 AM DIRECTOR ENTERPRISE SALES Infusion Department of Infusion Therapy in [address] [phone] Melinda Isaac APRN, C.N.P. [address] [place] [phone] 08/14/2024 9:00 AM DIRECTOR ENTERPRISE SALES Infusion Department of Infusion Therapy in [address] [phone] Melinda Isaac APRN, C.N.P. [address] [place] [phone] 08/15/2024 9:00 AM DIRECTOR ENTERPRISE SALES Infusion Department of Infusion Therapy in [address] [phone] Melinda Iasac APRN, C.N.P. [address] [place] [phone] 08/16/2024 9:00 AM DIRECTOR ENTERPRISE SALES Infusion Department of Infusion Therapy in [address] [phone] Melinda Isaac APRN, C.N.P. [address] [place] [phone] 08/17/2024 9:00 AM DIRECTOR ENTERPRISE SALES Infusion Department of Infusion Therapy in [address] [phone] Melinda Isaac APRN, C.N.P. [address] [place] [phone] 08/18/2024 9:00 AM DIRECTOR ENTERPRISE SALES Infusion Department of Infusion Therapy in [address] [phone] Melinda Isaac APRN, C.N.P. [address] [place] [phone] documented as of this encounter Procedures Procedure Name Priority Date/Time Associated Diagnosis Comments CBC WITH DIFFERENTIAL, B Routine 07/21/2024 9:24 AM DIRECTOR ENTER[employer]ISE SALES Pneumonia BASIC METABOLIC PANEL, S/P Routine 07/21/2024 9:24 AM DIRECTOR [employer]ISE SALES Pneumonia documented in this encounter Results * (ABNORMAL) Basic Metabolic Panel (07/21/2024 9:24 AM DIRECTOR [employer]ISE SAL[employer]) Pathologist [facility] Potassium, P 3.1(L) 3.6 - 5.2 mmol/L 07/21/2024 9:55 AM DIRECTOR ENTERPRISE SALES [facility] Sodium, P 143 135 - 145 mmol/L 07/21/2024 9:55 AM DIRECTOR ENTERPRISE SALES [facility] Chloride, P 102 98 - 107 mmol/L 07/21/2024 9:55 AM DIRECTOR ENTER[employer]ISE SALES [facility] Bicarbonate, P 30(H) 22 - 29 mmol/L 07/21/2024 9:55 AM DIRECTOR ENTERPRISE SALES [facility] Anion Gap, P 11 7 - 15 07/21/2024 9:55 AM DIRECTOR ENTERPRISE [employer]ES [facility] BUN (Blood Urea Nitrogen), P 8 6 - 21 mg/dL 07/21/2024 9:55 AM DIRECTOR ENTERPRISE SALES [facility] Creatinine 0.69 0.59 - 1.04 mg/dL 07/21/2024 9:55 AM DIRECTOR ENTERPRISE SALES [facility] Estimated GFR (eGFR) >90 >=60 mL/min/BSA 07/21/2024 9:55 AM DIRECTOR ENTERPRISE SALES [facility] Comment: Estimated GFR calculated using the 2020 CKD_EPI creatinine equation. Calcium, Total, P 8.7 8.6 - 10.0 mg/dL 07/21/2024 9:55 AM DIRECTOR ENTERPRISE SALES [facility] Glucose, P 97 70 - 140 mg/dL 07/21/2024 9:55 AM DIRECTOR ENTERPRISE SALES [facility] Blood (Blood, Venous) 07/21/2024 9:24 AM DIRECTOR EN[employer]ISE SALES 07/21/2024 9:32 AM DIRECTOR ENTER[employer]ISE SALES Prudence TO, P.A.-C. LAB BLOOD ADD-ON Final Result [facility] [address] [address], [place] [facility] [place] [address] [place] [address] * (ABNORMAL) CBC with Differential, Blood (07/21/2024 9:24 AM DIRECTOR [employer]ISE [employer]ES) Hemoglobin 8.6(L) 11.6 - 15.0 g/dL 07/21/2024 9:34 AM DIRECTOR ENTERPRISE SALES [facility] Hematocrit 27.0(L) 35.5 - 44.9 % 07/21/2024 9:34 AM DIRECTOR ENTERPRISE SALES [facility] Erythrocytes 3.00(L) 3.92 - 5.13 x10(12)/L 07/21/2024 9:34 AM DIRECTOR ENTERPRISE SALES [facility] MCV 90.0 78.2 - 97.9 fL 07/21/2024 9:34 AM DIRECTOR ENTERPRISE SALES [facility] RBC Distrib Width 15.5 12.2 - 16.1 % 07/21/2024 9:34 AM DIRECTOR ENTERPRISE SALES [facility] Platelet Count 515(H) 157 - 371 x10(9)/L 07/21/2024 9:34 AM DIRECTOR ENTERPRISE SALES [facility] Leukocytes 7.9 3.4 - 9.6 x10(9)/L 07/21/2024 9:34 AM DIRECTOR ENTERPRISE SALES [facility] Neutrophils 5.44 1.56 - 6.45 x10(9)/L 07/21/2024 9:34 AM DIRECTOR ENTERPRISE SALES [facility] Lymphocytes 1.31 0.95 - 3.07 x10(9)/L 07/21/2024 9:34 AM DIRECTOR ENTERPRISE SALES [facility] Monocytes 0.65 0.26 - 0.81 x10(9)/L 07/21/2024 9:34 AM DIRECTOR ENTERPRISE SALES [facility] Eosinophils 0.45 0.03 - 0.48 x10(9)/L 07/21/2024 9:34 AM DIRECTOR ENTERPRISE SALES [facility] Basophils <0.03 0.01 - 0.08 x10(9)/L 07/21/2024 9:34 AM DIRECTOR ENTERPRISE SALES [facility] Blood (Blood, Venous) 07/21/2024 9:24 AM DIRECTOR EN[employer]ISE SALES 07/21/2024 9:32 AM DIRECTOR ENTER[employer]ISE SALES us Prudence TO, P.A.-C. LAB BLOOD ADD-ON Final Result [facility] [address] [address], [facility] [place] [address] [phone] documented in this encounter Visit Diagnoses Diagnosis [...] infection, community acquired Given 07/21/2024 9:28 AM DIRECTOR EN[employer]ISE SALES 2 g sodium chloride 0.9 % injection 10-30 mL 10-30 mL, intravenous, As needed, line care, Starting on 07/21/24 at 0903, Prior to and following infusion, between multiple consecutive infusions.10 mL to each lumen.Indications:Empyema Pleural (HCC) Given 07/21/2024 9:32 AM DIRECTOR EN[employer]ISE SALES 10 mL Given 07/21/2024 9:00 AM DIRECTOR [employer]ISE SALES 30 mL documented in this encounter Additional Health Concerns Assessment Noted Time PHQ-9 Depression Total Score: 22 025 7:19 PM DIRECTOR [employer]ISE SALES documented as of this encounter Care Teams Assistant Art Director Relationship Specialty Start Date End Date Prudence Mena MPAS, P.A.-C. [address] [place] [phone] PCP - General Internal Medicine 02/08/24 documented as of this encounter
--- OUTSIDE RECORDS SUMMARY | 2024-07-28 22:50 | XMS_ITS | Encounter Summary ---
Author Organization [facility] Address [address] [place] [address] Care Team Providers Care Calculation Reviewer Name Role Phone Prudence Mena P.A.-C. Primary Care Pro vider Reason for Visit * Reason Comments Outpatient Infusion Rocephin * Outpatient (Routine) - Closed Specialty Diagnoses / Procedures Referred By Contac t Referred To Contact Diagnoses Empyema Pleural (HCC) Procedures Perform central line erector apprentice: Site care, Flush port(s) Melinda Isaac APRN, C.N.P. [address] [place] [phone] Phone: tel: fax: [facility] Referral ID Status Reason Start Date Expiration Date Visits Re quested Visits Authorized [id number] Closed 07/19/2024 07/19/2025 1 1 Encounter Details Date Type Department Care Team (Late st Contact Info) Description 07/22/2024 9:00 AM RETAIL KEY HOLDER Infusion Department of Infusion Therapy in [address] [phone] Melinda Isaac APRN, C.N.P. [address] [place] [phone] Empyema Pleural (HCC) (Primary Dx) Social [...] Never 07/27/2022 How often do you attend baptist or yazidism serv ices? Never 07/27/2022 Do you belong to any clubs o r organizations such as baptist groups, unions, fraternal or athletic groups, or [...] Answer Date Recorded PHQ-2 Score 6 07/10/2024 [facility] - Occupational Stress Questionnaire Answer Date [...] Comments Blood Pressure 125/82 07/22/2024 9:12 AM RETAIL KEY HOLDER Pulse 102 07/22/2024 9:12 AM RETAIL KEY HOLDER Temperature 36.2 C (97.2 F) 07/22/2024 9:12 AM RETAIL KEY HOLDER Respiratory Rate 20 07/22/2024 9:12 AM RETAIL KEY HOLDER Oxygen Saturation 96% 07/22/2024 9:12 AM RETAIL KEY HOLDER Inhaled Oxygen Concentration - - Weight - [...] mother stated feeling good about this plan. [place] KEY HOLDER documented in this encounter Plan of Treatment Upcoming Encounters Date Type Department Care Team (Late st Contact Info) Description 07/29/2024 10:00 AM RETAIL KEY HOLDER Infusion Department of Infusion Therapy in [address] [phone] Melinda Isaac APRN, C.N.P. [address] [place] [address] 07/29/2024 2:20 PM RETAIL KEY HOLDER Office Visit Department of Community Internal Medicine in [place], [place] [address] [place] [phone] Prudence Mena, LATONIAS, P.A.-C. 300 [place] [phone] 07/30/2024 9:00 AM RETAIL KEY HOLDER Infusion Department of Infusion Therapy in [address] [phone] Melinda Isaac APRN, C.N.P. [address] [place] [phone] 07/31/2024 8:00 AM RETAIL KEY HOLDER Infusion Department of Infusion Therapy in [address] [phone] Melinda Isaac APRN, C.N.P. [address] [place] [phone] 08/01/2024 7:00 AM RETAIL KEY HOLDER Infusion Department of Infusion Therapy in [address] [phone] Melinda Isaac APRN, C.N.P. [address] [place] [phone] 08/02/2024 9:00 AM RETAIL KEY HOLDER Infusion Department of Infusion Therapy in [address] [phone] Melinda Isaac APRN, C.N.P. [address] [place] [phone] 08/02/2024 12:30 PM RETAIL KEY HOLDER Clinical Communication Virtual Review in [place], [place] 200 [place] [address] 08/03/2024 9:00 AM RETAIL KEY HOLDER Infusion Department of Infusion Therapy in [address] [address] Melinda Isaac APRN, C.N.P. [address] [place] [phone] 08/04/2024 9:00 AM RETAIL KEY HOLDER Infusion Department of Infusion Therapy in [address] [address] Melinda Isaac APRN, C.N.P. [address] [place] [phone] 08/05/2024 8:45 AM RETAIL KEY HOLDER Appointment Department of Radiology, [facility], in [place], [place] [address] [place] [phone] Kayleigh Small M.D. [address] [place] [phone] 08/05/2024 9:00 AM RETAIL KEY HOLDER Infusion Department of Infusion Therapy in [address] [phone] Melinda Isaac APRN, C.N.P. [address] [place] [phone] 08/05/2024 11:00 AM RETAIL KEY HOLDER Office Visit Section of Infectious Diseases in [address] [phone] Kayleigh Small M.D. [address] [place] [phone] 08/06/2024 9:00 AM RETAIL KEY HOLDER Infusion Department of Infusion Therapy in [address] [place] [address] Melinda Isaac APRN, C.N.P. [address] [place] [phone] 08/07/2024 9:00 AM RETAIL KEY HOLDER Infusion Department of Infusion Therapy in [address] [address] Melinda Isaac APRN, C.N.P. [address] [place] [phone] 08/08/2024 9:00 AM RETAIL KEY HOLDER Infusion Department of Infusion Therapy in [address] [address] Melinda Isaac APRN, C.N.P. [address] [place] [phone] 08/09/2024 9:00 AM RETAIL KEY HOLDER Infusion Department of Infusion Therapy in [address] [phone] Melinda Isaac APRN, C.N.P. [address] [place] [phone] 08/10/2024 9:00 AM RETAIL KEY HOLDER Infusion Department of Infusion Therapy in [address] [phone] Melinda Isaac APRN, C.N.P. [address] [place] [phone] 08/11/2024 9:00 AM RETAIL KEY HOLDER Infusion Department of Infusion Therapy in [address] [phone] Melinda Isaac APRN, C.N.P. [address] [place] [phone] 08/12/2024 9:00 AM RETAIL KEY HOLDER Infusion Department of Infusion Therapy in [address] [address] Melinda Isaac APRN, C.N.P. [address] [place] [phone] 08/13/2024 8:30 AM RETAIL KEY HOLDER Infusion Department of Infusion Therapy in [address] [address] Melinda Isaac APRN, C.N.P. [address] [place] [phone] 08/14/2024 9:00 AM RETAIL KEY HOLDER Infusion Department of Infusion Therapy in [address] [address] Melinda Isaac APRN, C.N.P. [address] [place] [phone] 08/15/2024 9:00 AM RETAIL KEY HOLDER Infusion Department of Infusion Therapy in [address] [phone] Melinda Isaac APRN, C.N.P. [address] [place] [phone] 08/16/2024 9:00 AM RETAIL KEY HOLDER Infusion Department of Infusion Therapy in [address] [phone] Melinda Isaac APRN, C.N.P. [address] [place] [phone] 08/17/2024 9:00 AM RETAIL KEY HOLDER Infusion Department of Infusion Therapy in [address] [phone] Melinda Isaac APRN, C.N.P. [address] [place] [phone] 08/18/2024 9:00 AM RETAIL KEY HOLDER Infusion Department of Infusion Therapy in [address] [phone] Melinda Isaac APRN, C.N.P. [address] [place] [phone] documented as of this encounter Visit Diagnoses [...] infection, community acquired Given 07/22/2024 9:20 AM RETAIL KEY HOLDER 2 g sodium chloride 0.9 % injection 10-30 mL 10-30 mL, intravenous, As needed, line care, Starting on Mon07/22/24 at 0905, Prior to and following infusion, between multiple consecutive infusions.10 mL to each lumen.Indications:Empyema Pleural (HCC) Given 07/22/2024 9:24 AM RETAIL KEY HOLDER 10 mL Given 07/22/2024 9:19 AM RETAIL KEY HOLDER 10 mL documented in this encounter Additional Health Concerns Assessment Noted Time PHQ-9 Depression Total Score: 22 025 7:19 PM RETAIL KEY HOLDER documented as of this encounter Care Teams Calculation Reviewer Relationship Specialty Start Date End Date Prudence Mena MPAS, P.A.-C. [address] [place], [place] [address]marta [place]HAUN [phone] PCP - General Internal Medicine 02/08/24 documented as of this encounter
--- OUTSIDE RECORDS SUMMARY | 2024-07-28 22:50 | XMS_ITS | Encounter Summary ---
Author Organization [facility] Address [address] [place] [address] Care Team Providers Care Folded Towel Machine Operator Name Role Phone Prudence Mena P.A.-CDmitry Primary Care Pro vider Encounter Details Date Type Department Care Team (Late st Contact Info) Description 07/22/2024 Results Follow-Up Department of Community Internal Medicine in [place], [place] [address] [place] [address] Prudence Mena MPAS P.A.-C. [address] [place] [address] Social History Tobacco Use Types Packs/Day Years Used Date Smoking Tobacco: Former Cigarettes 1.5 0.1 S tarted: 06/21/2024 Passive Smoke Exposure: Past Smokeless Tobacco: Never Alcohol Use Standard Drinks/Week Comments Yes 0 (1 standard drink = 0.6 oz pur e alcohol) socially [facility] Utilities Answer Date Recorded In the past 12 months has [facility] [employer], gas, oil, or water [employer] threatened to shut off services in your [...] Never 07/27/2022 How often do you attend denominational or religion serv ices? Never 07/27/2022 Do you belong to any clubs o r organizations such as denominational groups, unions, fraternal or athletic groups, or [...] Answer Date Recorded PHQ-2 Score 6 07/10/2024 [facility] [place] of Occupat ional Health - Occupational Stress [...] st Contact Info) Description 07/29/2024 10:00 AM OUTSIDE SALES ACCOUNT EXECUTIVE Infusion Department of Infusion Therapy in [address] [phone] Melinda Isaac, DAIRY TRUCK DRIVER, C.N.P. [address] [place] [address] 07/29/2024 2:20 PM OUTSIDE SALES ACCOUNT EXECUTIVE Office Visit Department of Community Internal Medicine in [place], [place] 300 [facility] [place] [phone] Prudence Mena MPAS, P.A.-C. 300 [place] [phone] 07/30/2024 9:00 AM OUTSIDE SALES ACCOUNT EXECUTIVE Infusion Department of Infusion Therapy in [address] [phone] Melinda Isaac APRN, C.N.P. [address] [place] [phone] 07/31/2024 8:00 AM OUTSIDE SALES ACCOUNT EXECUTIVE Infusion Department of Infusion Therapy in [address] [address] Melinda Isaac APRN, C.N.P. [address] [place] [phone] 08/01/2024 7:00 AM OUTSIDE SALES ACCOUNT EXECUTIVE Infusion Department of Infusion Therapy in [address] [address] Melinda Isaac APRN, C.N.P. [address] [place] [phone] 08/02/2024 9:00 AM OUTSIDE SALES ACCOUNT EXECUTIVE Infusion Department of Infusion Therapy in [address] [address] Melinda Isaac APRN, C.N.P. [address] [place] [phone] 08/02/2024 12:30 PM OUTSIDE SALES ACCOUNT EXECUTIVE Clinical Communication Virtual Review in [place], [place] 200 [place] [address] 08/03/2024 9:00 AM OUTSIDE SALES ACCOUNT EXECUTIVE Infusion Department of Infusion Therapy in [address] [phone] Melinda Isaac, FRED, C.N.P. [address] [place] [phone] 08/04/2024 9:00 AM OUTSIDE SALES ACCOUNT EXECUTIVE Infusion Department of Infusion Therapy in [address] [phone] Melinda Isaac APRN, C.N.P. [address] [place] [phone] 08/05/2024 8:45 AM OUTSIDE SALES ACCOUNT EXECUTIVE Appointment Department of Radiology, [facility], in [place], [place] [address] [place] [phone] Kayleigh Small M.D. [address] [place] [phone] 08/05/2024 9:00 AM OUTSIDE SALES ACCOUNT EXECUTIVE Infusion Department of Infusion Therapy in [address] [phone] Melinda Isaac APRN, C.N.P. [address] [place] [phone] 08/05/2024 11:00 AM OUTSIDE SALES ACCOUNT EXECUTIVE Office Visit Section of Infectious Diseases in [place], [place] [address] [place] [phone] Kayleigh Small M.D. [address] [place] [phone] 08/06/2024 9:00 AM OUTSIDE SALES ACCOUNT EXECUTIVE Infusion Department of Infusion Therapy in [address] [address] Melinda Isaac APRN, C.N.P. [address] [place] [phone] 08/07/2024 9:00 AM OUTSIDE SALES ACCOUNT EXECUTIVE Infusion Department of Infusion Therapy in [address] [address] Melinda Isaac APRN, C.N.P. [address] [place] [phone] 08/08/2024 9:00 AM OUTSIDE SALES ACCOUNT EXECUTIVE Infusion Department of Infusion Therapy in [address] [address] Melinda Isaac APRN, C.N.P. [address] [place] [phone] 08/09/2024 9:00 AM OUTSIDE SALES ACCOUNT EXECUTIVE Infusion Department of Infusion Therapy in [address] [address] Melinda Isaac APRN, C.N.P. [address] [place] [phone] 08/10/2024 9:00 AM OUTSIDE SALES ACCOUNT EXECUTIVE Infusion Department of Infusion Therapy in [address] [address] Melinda Isaac APRN, C.N.P. [address] [place] [phone] 08/11/2024 9:00 AM OUTSIDE SALES ACCOUNT EXECUTIVE Infusion Department of Infusion Therapy in [address] [address] Melinda Isaac APRN, C.N.P. [address] [place] [phone] 08/12/2024 9:00 AM OUTSIDE SALES ACCOUNT EXECUTIVE Infusion Department of Infusion Therapy in [address] [address] Melinda Isaac APRN, C.N.P. [address] [place] [phone] 08/13/2024 8:30 AM OUTSIDE SALES ACCOUNT EXECUTIVE Infusion Department of Infusion Therapy in [address] [address] Melinda Isaac APRN, C.N.P. [address] [place] [phone] 08/14/2024 9:00 AM OUTSIDE SALES ACCOUNT EXECUTIVE Infusion Department of Infusion Therapy in [address] [address] Melinda Isaac APRN, C.N.P. [address] [place] [phone] 08/15/2024 9:00 AM OUTSIDE SALES ACCOUNT EXECUTIVE Infusion Department of Infusion Therapy in [address] [address] Melinda Isaac APRN, C.N.P. [address] [place] [phone] 08/16/2024 9:00 AM OUTSIDE SALES ACCOUNT EXECUTIVE Infusion Department of Infusion Therapy in [address] [address] Melinda Isaac APRN, C.N.P. [address] [place] [phone] 08/17/2024 9:00 AM OUTSIDE SALES ACCOUNT EXECUTIVE Infusion Department of Infusion Therapy in [address] [address] Melinda Isaac APRN, C.N.P. [address] [place] [phone] 08/18/2024 9:00 AM OUTSIDE SALES ACCOUNT EXECUTIVE Infusion Department of Infusion Therapy in [address] [address] Melinda Isaac APRN, C.N.P. [address] [place] [phone] documented as of this encounter Visit Diagnoses Not on filedocumented in this encounter Additional Health Concerns Assessment Noted Time PHQ-9 Depression Total Score: 22 025 7:19 PM OUTSIDE SALES ACCOUNT EXECUTIVE documented as of this encounter Care Teams Folded Towel Machine Operator Relationship Specialty Start Date End Date Prudence Mena MPAS, P.A.-C. [address] [place] [phone] PCP - General Internal Medicine 02/08/24 documented as of this encounter
--- OUTSIDE RECORDS SUMMARY | 2024-07-28 22:51 | XMS_ITS | Encounter Summary ---
Author Organization [facility] Address [address] [place] [phone] Care Team Providers Care Metal Punch Press Operator Name Role Phone Prudence Mena P.A.-C. Primary Care Pro vider Reason for Visit * Auth/Cert (Routine) Specialty Diagnoses / Procedures Referred By Contac t Referred To Contact Diagnoses Empyema Pleural (HCC) Pleuritic chest pain. empyema Procedures INPT Referral ID Status Reason Start Date Expiration Date Visits Re quested Visits Authorized [id number] 1 1 Encounter Details Date Type Department Care Team (Late st Contact Info) Description 07/15/2024 12:57 PM COMMERCIAL DRAFTER Anesthesia Event RST ROMB MAIN OR [address] [place] [phone] Lanre Hayward M.D. [address] [place] [phone] Aroldo Johnson, RDmitryNDmitry Anesthesia Record Procedure Summary [...] DLETT would not advance through vocal folds. [place] used with single ETT then exchanged over [...] 0.6 oz pur e alcohol) socially [facility] Utilities Answer Date Recorded In the past 12 months has [employer], gas, oil, or water [employer] threatened to shut off services in your [...] How often do you attend denominational or mandaen serv ices? Never 07/27/2022 Do [...] Answer Date Recorded PHQ-2 Score 6 07/10/2024 [facility] [place] of Occupat ional Health - Occupational Stress [...] partner or ex-partner? No 07/15/2024 8:00 PM COMMERCIAL DRAFTER Helena Brady RDmitryN. Within the last year, have y ou been afraid of your partner or ex-partner? No 07/15/2024 8:00 PM COMMERCIAL DRAFTER Helena Brady R.N. Within the last year, have y ou been raped or forced to have any kind of sexual activity by your partner or ex-partner? No 07/15/2024 8:00 PM COMMERCIAL DRAFTER Helena Brady RDmitryN. Within the last year, have y ou been kicked, hit, slapped, or otherwise physically hurt by your partner or ex-partner? No 07/15/2024 8:00 PM COMMERCIAL DRAFTER Helena Brady R.N. documented as of this encounter OR Notes * Anesthesia Postprocedure Evaluation - Lanre Hayward M.D. - 07/15/2024 6:45 PM CST Patient: Melinda Kumar Procedure Summary Date: 07/15/24 Room / Location: [address] [facility] / [facility] in [place], [place] Anesthesia Start: 1257 Anesthesia Stop: 1702 [...] post-op. Notable Events No notable events documented. ERCIAL DRAFTER * Anesthesia Procedure Notes - Sandra May [...] turn: yes Notable Events - arterial: none ERCIAL DRAFTER ERCIAL DRAFTER * Anesthesia Procedure Notes - Aroldo Johnson R.N. - 07/15/2024 2:01 PM COMMERCIAL DRAFTER Associated Order(s): Airway Airway Date/Time: 07/15/2024 1:17 PM Performed by: Aroldo Johnson R.N. Authorized by: Jamie Kumar M.D. Patient location during procedure: OR / Procedure Area PROCEDURE DETAILS: Mask difficulty assessment: oral/nasal airway needed Final airway type: video laryngoscope Laryngeal Manipulation: no Final best view of glottic structures - Cormack/Lehane Score: grade 1 ETT location: oral VL device: glide scope [place] scope blade size: 3 Tube size: 35 [...] DLETT would not advance through vocal folds. [place] used with single ETT then exchanged over boujie for DLETT. Verified placement with fiberoptic PRE PROCEDURE DETAILS: Pre evaluation for airway management: procedure Urgency: elective Preop assessment of probable difficulty: questionable / suspicious difficult airway Preoxygenation: bag valve mask SEDATION / ANESTHESIA Anesthesia method: anesthesia POST PROCEDURE DETAILS: Procedure outcome: successful Notable Events: no complications ERCIAL DRAFTER * Anesthesia Preprocedure Evaluation - Jamie Kumar M.D. - 07/15/2024 11:43 AM CST Preprocedure Anesthesia & H&P Assessment Procedure Summary Date/Time: 07/15/24 1310 Procedure: ROBOTIC THORACOSCOPY, DECORTICATION, PLEURODESIS, POSSIBLE THORACOTOMY, PROCEED INDICATED. (Left) Diagnosis: Empyema Pleural (HCC) [J86.9] Pre-op diagnosis: Left empyema. Location: [address] / [facility] in [place], [place] Providers: Patrick Mtz M.D., Ph.D. Pertinent [...] with patient /legal guardian or through an respiratory care assistant. Risks/Benefits/Alternatives of Blood transfusion discussed with patient / legal guardian, includingan opportunity to ask questions and/or decline some or all transfusion therapies. The patient / legal guardian consented to the use of all blood products, as deemed medically necessary Approval to Proceed: approved for anesthesia ERCIAL DRAFTER documented in this encounter Plan of Treatment Upcoming Encounters Date Type Department Care Team (Late st Contact Info) Description 07/29/2024 10:00 AM COMMERCIAL DRAFTER Infusion Department of Infusion Therapy in [address] [phone] Melinda Isaac APRN, C.N.P. [address] [place] [phone] 07/29/2024 2:20 PM COMMERCIAL DRAFTER Office Visit Department of Community Internal Medicine in [place], [place] 300 [place] [phone] Prudence Mena MPAS, P.A.-C. 300 [place] [phone] 07/30/2024 9:00 AM COMMERCIAL DRAFTER Infusion Department of Infusion Therapy in [address] [address] Melinda Isaac APRN, C.N.P. [address] [place] [phone] 07/31/2024 8:00 AM COMMERCIAL DRAFTER Infusion Department of Infusion Therapy in [address] [place] [address] Melinda Isaac APRN, C.N.P. [address] [place] [phone] 08/01/2024 7:00 AM COMMERCIAL DRAFTER Infusion Department of Infusion Therapy in [address] [phone] Melinda Isaac APRN, C.N.P. [address] [place] [phone] 08/02/2024 9:00 AM COMMERCIAL DRAFTER Infusion Department of Infusion Therapy in [address] [address] Melinda Isaac APRN, C.N.P. [address] [place] [phone] 08/02/2024 12:30 PM COMMERCIAL DRAFTER Clinical Communication Virtual Review in [place], [place] 200 [place] [phone] 08/03/2024 9:00 AM COMMERCIAL DRAFTER Infusion Department of Infusion Therapy in [address] [address] Melinda Isaac APRN, C.N.P. [address] [place] [phone] 08/04/2024 9:00 AM COMMERCIAL DRAFTER Infusion Department of Infusion Therapy in [address] [phone] Melinda Isaac APRN, C.N.P. [address] [place] [phone] 08/05/2024 8:45 AM COMMERCIAL DRAFTER Appointment Department of Radiology, [facility], in [place], [place] [address] [place] [phone] Kayleigh Small M.D. [address] [place] [phone] 08/05/2024 9:00 AM COMMERCIAL DRAFTER Infusion Department of Infusion Therapy in [address] [address] Melinda Isaac APRN, C.N.P. [address] [place] [phone] 08/05/2024 11:00 AM COMMERCIAL DRAFTER Office Visit Section of Infectious Diseases in [place], [place] [address] [place] [phone] Kayleigh Small M.D. [address] [place] [phone] 08/06/2024 9:00 AM COMMERCIAL DRAFTER Infusion Department of Infusion Therapy in [address] [address] Melinda Isaac APRN, C.N.P. [address] [place] [phone] 08/07/2024 9:00 AM COMMERCIAL DRAFTER Infusion Department of Infusion Therapy in [address] [address] Melinda Isaac APRN, C.N.P. [address] [place] [phone] 08/08/2024 9:00 AM COMMERCIAL DRAFTER Infusion Department of Infusion Therapy in [address] [address] Melinda Isaac APRN, C.N.P. [address] [place] [phone] 08/09/2024 9:00 AM COMMERCIAL DRAFTER Infusion Department of Infusion Therapy in [address] [phone] Melinda Isaac APRN, C.N.P. [address] [place] [phone] 08/10/2024 9:00 AM COMMERCIAL DRAFTER Infusion Department of Infusion Therapy in [address] [address] Melinda Isaac APRN, C.N.P. [address] [place] [phone] 08/11/2024 9:00 AM COMMERCIAL DRAFTER Infusion Department of Infusion Therapy in [address] [address] Melinda Isaac APRN, C.N.P. [address] [place] [phone] 08/12/2024 9:00 AM COMMERCIAL DRAFTER Infusion Department of Infusion Therapy in [address] [phone] Melinda Isaac APRN, C.N.P. [address] [place] [phone] 08/13/2024 8:30 AM COMMERCIAL DRAFTER Infusion Department of Infusion Therapy in [address] [address] Melinda Isaac APRN, C.N.P. [address] [place] [phone] 08/14/2024 9:00 AM COMMERCIAL DRAFTER Infusion Department of Infusion Therapy in [address] [address] Melinda Isaac APRN, C.N.P. [address] [place] [phone] 08/15/2024 9:00 AM COMMERCIAL DRAFTER Infusion Department of Infusion Therapy in [address] [address] Melinda Isaac APRN, C.N.P. [address] [place] [phone] 08/16/2024 9:00 AM COMMERCIAL DRAFTER Infusion Department of Infusion Therapy in [address] [address] Melinda Isaac APRN, C.N.P. [address] [place] [phone] 08/17/2024 9:00 AM COMMERCIAL DRAFTER Infusion Department of Infusion Therapy in [address] [phone] Melinda Isaac APRN, C.N.P. [address] [place] [phone] 08/18/2024 9:00 AM COMMERCIAL DRAFTER Infusion Department of Infusion Therapy in [address] [address] Melinda Isaac APRN, C.N.P. [address] [place] [phone] documented as of this encounter Procedures Procedure Name Priority Date/Time Associated Diagnosis Comments LDA ANE ARTERIAL LINE INSERTION Routine 07/15/2024 1:31 PM COMMERCIAL DRAFTER OH ARTL CATH/CNULA MONITOR PERC Routine 07/15/2024 1:31 PM COMMERCIAL DRAFTER LDA ANE ENDOTRACHEAL AIRWAY Routine 07/15/2024 1:17 PM COMMERCIAL DRAFTER documented in this encounter Results * OH ARTL CATH/CNULA MONITOR PERC, LDA ANE ARTERIAL LINE INSERTION (07/15/2024 1:31 PM COMMERCIAL DRAFTER) Narrative Sandra May APRN, CRNA - 07/15/2024 1:31 PM COMMERCIAL DRAFTER Sandra May APRN, CRNA 07/15/2024 5:03 PM [...] LDA ANE ENDOTRACHEAL AIRWAY (07/15/2024 1:17 PM COMMERCIAL DRAFTER) Narrative Aroldo Johnson R.N. - 07/15/2024 1:17 PM COMMERCIAL DRAFTER Aroldo Johnson R.N. 07/15/2024 2:03 PM Airway Date/Time: 07/15/2024 1:17 PM Performed by: Aroldo Johnson R.N. Authorized by: Jamie Kumar M.D. Patient location during procedure: OR / Procedure Area PROCEDURE DETAILS: Mask difficulty assessment: oral/nasal airway needed Final airway type: video laryngoscope Laryngeal Manipulation: no Final best view of glottic structures - Cormack/Lehane Score: grade 1 ETT location: oral VL device: glide scope [place] scope blade size: 3 Tube size: 35 [...] DLETT would not advance through vocal folds. [place] used with single ETT then exchanged over [...] 1456, Anesthesia Intra-op Given 07/15/2024 3:06 PM COMMERCIAL DRAFTER 250 mL Given 07/15/2024 2:56 PM COMMERCIAL DRAFTER 250 mL ceFAZolin injection (Ancef) intravenous, As needed, Starting on Mon07/15/24 at 1407, Anesthesia Intra-op Given 07/15/2024 2:07 PM COMMERCIAL DRAFTER 2 g dexAMETHasone injection (Decadron) intravenous, As needed, Starting on Mon07/15/24 at 1415, Anesthesia Intra-op Given 07/15/2024 2:15 PM COMMERCIAL DRAFTER 8 mg fentaNYL injection (Sublimaze) intravenous, As needed, Starting on Mon07/15/24 at 1307, Anesthesia Intra-op Given 07/15/2024 1:07 PM COMMERCIAL DRAFTER 100 mcg HYDROmorphone (PF) injection (Dilaudid) intravenous, As needed, Starting on Mon07/15/24 at 1420, Anesthesia Intra-op Given 07/15/2024 3:20 PM COMMERCIAL DRAFTER 0.2 mg Given 07/15/2024 2:33 PM COMMERCIAL DRAFTER 0.4 mg Given 07/15/2024 2:20 PM COMMERCIAL DRAFTER 0.4 mg ketamine injection (Ketalar) intravenous, As needed, Starting on Mon07/15/24 at 1418, Anesthesia Intra-op Given 07/15/2024 3:58 PM COMMERCIAL DRAFTER 10 mg Given 07/15/2024 3:06 PM COMMERCIAL DRAFTER 10 mg Given 07/15/2024 2:18 PM COMMERCIAL DRAFTER 10 mg Lactated Ringer's intravenous, Continuous Infusion: Per Instructions PRN, Starting on Mon07/15/24 at 1307, Anesthesia Intra-op New Bag 07/15/2024 1:07 PM COMMERCIAL DRAFTER lidocaine (PF) (cardiac) injection intravenous, As needed, Starting on Mon07/15/24 at 1307, Anesthesia Intra-op Given 07/15/2024 1:07 PM COMMERCIAL DRAFTER 80 mg ondansetron (PF) injection (Zofran) intravenous, As needed, Starting on Mon07/15/24 at 1606, Anesthesia Intra-op Given 07/15/2024 4:06 PM COMMERCIAL DRAFTER 4 mg phenylephrine injection intravenous, As needed, Starting on Mon07/15/24 at 1618, Anesthesia Intra-op Given 07/15/2024 4:18 PM COMMERCIAL DRAFTER 100 mcg piperacillin-tazobactam in dextrose (iso osm) IVPB 4.5 g (Zosyn) 4.5 g, intravenous, at 200 mL/hr, Administer over 0.5 Hours, Every 6 hours, First dose (after last modification) on Mon07/13/24 at 2100, Drug Monitoring Program: Pharmacist to adjust medication dosing based on indication and drug clearance factors., Indications: Respiratory tract infection, healthcare associatedIndications:Respiratory tract infection, healthcare associated New Bag 07/17/2024 2:23 PM COMMERCIAL DRAFTER 4.5 g 200 mL/hr New Bag 07/17/2024 8:11 AM COMMERCIAL DRAFTER 4.5 g 200 mL/hr New Bag 07/17/2024 3:41 AM COMMERCIAL DRAFTER 4.5 g 200 mL/hr propofol 10 mg/mL infusion (Diprivan) intravenous, As needed, Starting on Mon07/15/24 at 1307, Anesthesia Intra-op Rate/Dose Change 07/15/2024 2:58 PM COMMERCIAL DRAFTER 50 mcg/kg/min 28.8 mL/hr Rate/Dose Change 07/15/2024 1:20 PM COMMERCIAL DRAFTER 75 mcg/kg/min 43.2 mL/hr New Bag 07/15/2024 1:07 PM COMMERCIAL DRAFTER 50 mcg/kg/min 28.8 mL/hr propofoL injection (Diprivan) intravenous, As needed, Starting on Mon07/15/24 at 1307, Anesthesia Intra-op Given 07/15/2024 1:07 PM COMMERCIAL DRAFTER 200 mg rocuronium injection (Zemuron) intravenous, As needed, Starting on Mon07/15/24 at 1307, Anesthesia Intra-op Given 07/15/2024 4:01 PM COMMERCIAL DRAFTER 10 mg Given 07/15/2024 3:20 PM COMMERCIAL DRAFTER 20 mg Given 07/15/2024 2:28 PM COMMERCIAL DRAFTER 20 mg sugammadex injection (Bridion) intravenous, As needed, Starting on Mon07/15/24 at 1619, Anesthesia Intra-op Given 07/15/2024 4:41 PM COMMERCIAL DRAFTER 100 mg Given 07/15/2024 4:39 PM COMMERCIAL DRAFTER 100 mg Given 07/15/2024 4:19 PM COMMERCIAL DRAFTER 200 mg documented in this encounter Additional Health Concerns Assessment Noted Time PHQ-9 Depression Total Score: 22 025 7:19 PM COMMERCIAL DRAFTER documented as of this encounter Care Teams Metal Punch Press Operator Relationship Specialty Start Date End Date Prudence Mena MPAS, P.A.-C. [address] [place] [address] DESHAUN Orta [phone] PCP - General Internal Medicine 02/08/24 documented as of this encounter
--- OUTSIDE RECORDS SUMMARY | 2024-07-28 22:51 | XMS_ITS | Encounter Summary ---
Author Organization [facility] Address [address] [place] [address] Care Team Providers Care Hoisting Machine Operator Name Role Phone Prudence Mena P.A.-C. Primary Care Pro vider Encounter Details Date Type Department Care Team (Late st Contact Info) Description 07/19/2024 Clinical Communication Division of Thoracic Surgery in [place], [place] [address] [place] [phone] Melinda Isaac, FRED, C.N.P. [address] [place] [phone] Social History Tobacco Use Types Packs/Day Years Used Date Smoking Tobacco: Former Cigarettes 1.5 0.1 S tarted: 06/21/2024 Passive Smoke Exposure: Past Smokeless Tobacco: Never Alcohol Use Standard Drinks/Week Comments Yes 0 (1 standard drink = 0.6 oz pur e alcohol) socially [facility] Utilities Answer Date Recorded In the past 12 months has [employer], gas, oil, or water [employer] threatened to shut off services in your [...] Never 07/27/2022 How often do you attend jewish or confucianism serv ices? Never 07/27/2022 Do you belong to any clubs o r organizations such as jewish groups, unions, fraternal or athletic groups, or [...] Contact Info) Description 07/29/2024 10:00 AM DIRECTOR HARDWARE Infusion Department of Infusion Therapy in [address] [phone] Melinda Isaac, RESIN FILTERER, C.N.P. [address] [facility] [place] [address] 07/29/2024 2:20 PM DIRECTOR HARDWARE Office Visit Department of Community Internal Medicine in [place], [place] 300 [place] [phone] Prudence Mena, MPAS, P.A.-C. 300 [place] [phone] 07/30/2024 9:00 AM DIRECTOR HARDWARE Infusion Department of Infusion Therapy in [address] [address] eMlinda Isaac APRN, C.N.P. [address] [place] [phone] 07/31/2024 8:00 AM DIRECTOR HARDWARE Infusion Department of Infusion Therapy in [address] [address] Melinda Isaac APRN, C.N.P. [address] [place] [phone] 08/01/2024 7:00 AM DIRECTOR HARDWARE Infusion Department of Infusion Therapy in [address] [address] Melinda Isaac APRN, C.N.P. [address] [place] [phone] 08/02/2024 9:00 AM DIRECTOR HARDWARE Infusion Department of Infusion Therapy in [address] [address] Melinda Isaac APRN, C.N.P. [address] [place] [phone] 08/02/2024 12:30 PM DIRECTOR HARDWARE Clinical Communication Virtual Review in [place], [place] 200 [place] [address] 08/03/2024 9:00 AM DIRECTOR HARDWARE Infusion Department of Infusion Therapy in [address] [address] Melinda Isaac APRN, C.N.P. [address] [place] [phone] 08/04/2024 9:00 AM DIRECTOR HARDWARE Infusion Department of Infusion Therapy in [address] [address] Melinda Isaac APRN, C.N.P. [address] [place] [address] 08/05/2024 8:45 AM DIRECTOR HARDWARE Appointment Department of Radiology, [facility], in [place], [place] [address] [place] [phone] Kayleigh Small M.D. [address] [place] [phone] 08/05/2024 9:00 AM DIRECTOR HARDWARE Infusion Department of Infusion Therapy in [address] [address] Melinda Isaac APRN, C.N.P. [address] [place] [phone] 08/05/2024 11:00 AM DIRECTOR HARDWARE Office Visit Section of Infectious Diseases in [place], [place] [address] [place] [phone] Kayleigh Small M.D. [address] [place] [phone] 08/06/2024 9:00 AM DIRECTOR HARDWARE Infusion Department of Infusion Therapy in [address] [address] Melinda Isaac APRN, C.N.P. [address] [place] [address] 08/07/2024 9:00 AM DIRECTOR HARDWARE Infusion Department of Infusion Therapy in [address] [address] Melinda Isaac APRN, C.N.P. [address] [place] [address] 08/08/2024 9:00 AM DIRECTOR HARDWARE Infusion Department of Infusion Therapy in [address] [address] Melinda Isaac APRN, C.N.P. [address] [place] [address] 08/09/2024 9:00 AM DIRECTOR HARDWARE Infusion Department of Infusion Therapy in [address] [address] Melinda Isaac APRN, C.N.P. [address] [place] [phone] 08/10/2024 9:00 AM DIRECTOR HARDWARE Infusion Department of Infusion Therapy in [address] [address] Melinda Isaac APRN, C.N.P. [address] [place] [phone] 08/11/2024 9:00 AM DIRECTOR HARDWARE Infusion Department of Infusion Therapy in [address] [address] Melinda Isaac APRN, C.N.P. [address] [place] [address] 08/12/2024 9:00 AM DIRECTOR HARDWARE Infusion Department of Infusion Therapy in [address] [address] Melinda Isaac APRN, C.N.P. [address] [place] [address] 08/13/2024 8:30 AM DIRECTOR HARDWARE Infusion Department of Infusion Therapy in [address] [address] Melinda Isaac APRN, C.N.P. [address] [place] [address] 08/14/2024 9:00 AM DIRECTOR HARDWARE Infusion Department of Infusion Therapy in [address] [address] Melinda Isaac APRN, C.N.P. [address] [place] [phone] 08/15/2024 9:00 AM DIRECTOR HARDWARE Infusion Department of Infusion Therapy in [address] [address] Melinda Isaac APRN, C.N.P. [address] [place] [address] 08/16/2024 9:00 AM DIRECTOR HARDWARE Infusion Department of Infusion Therapy in [address] [address] Melinda Isaac APRN, C.N.P. [address] [place] [address] 08/17/2024 9:00 AM DIRECTOR HARDWARE Infusion Department of Infusion Therapy in [address] [address] Melinda Isaac APRN, C.N.P. [address] [place] [phone] 08/18/2024 9:00 AM DIRECTOR HARDWARE Infusion Department of Infusion Therapy in [address] [phone] Melinda Isaac APRN, C.N.P. [address] [place] [phone] documented as of this encounter Visit Diagnoses Not on filedocumented in this encounter Additional Health Concerns Assessment Noted Time PHQ-9 Depression Total Score: 22 025 7:19 PM DIRECTOR HARDWARE documented as of this encounter Care Teams Hoisting Machine Operator Relationship Specialty Start Date End Date Prudence Mena MPAS, P.A.-C. [address] [place] [phone] PCP - General Internal Medicine 02/08/24 documented as of this encounter
--- OUTSIDE RECORDS SUMMARY | 2024-07-28 22:51 | XMS_ITS | Encounter Summary ---
Author Organization [facility] Address [address] [place] [address] Care Team Providers Care Fountain Waitress/Waiter Name Role Phone Prudence Mena P.A.-C. Primary Care Pro vider Reason for Referral * Outpatient (Routine) - Authorized Specialty Diagnoses / Procedures Referred By Contac t Referred To Contact Diagnoses Empyema Pleural (HCC) Procedures DX Chest AP or PA and Lateral 2 Views Kayleigh Small M.D. 200 [place] [address] Phone: tel: fax: [facility] Referral ID Status Reason Start Date Expiration Date V isits Requested Visits Authorized [id number] Authorized 07/18/2024 07/18/2025 1 1 TRAINER * Outpatient (Routine) - Authorized Specialty Diagnoses / Procedures Referred By Contac t Referred To Contact Infectious Diseases Diagnoses Empyema Pleural (HCC) Kayleigh Small M.D. 200 [place] [address] Phone: tel: fax: [facility] Referral ID Status Reason Start Date Expiration Date V isits Requested Visits Authorized [id number] Authorized 07/18/2024 01/17/2026 1 1 TRAINER Reason for Visit * Reason Onset Date Comments Post Hospital Follow-up 07/18/2024 Encounter Details Date Type Department Care Team (Latest Contact Info) Description 07/18/2024 Clinical Communication [facility] [address] [place] [address] Kayleigh Small M.D. [address] [place] [address] Post Hospital Follow-up Social History Tobacco Use Types Packs/Day Years Used Date Smoking Tobacco: Former Cigarettes 1.5 0.1 S tarted: 06/21/2024 Passive Smoke Exposure: Past Smokeless Tobacco: Never Alcohol Use Standard Drinks/Week Comments Yes 0 (1 standard drink = 0.6 oz pur e alcohol) socially [facility] [employer] Answer Date Recorded In the past 12 months has e electric, gas, oil, or water [employer] threatened to shut off services in your [...] Never 07/27/2022 How often do you attend oriental orthodox or hindu serv ices? Never 07/27/2022 Do you belong to any clubs o r organizations such as oriental orthodox groups, unions, fraternal or athletic groups, [...] Answer Date Recorded PHQ-2 Score 6 07/10/2024 [facility] - Occupational Stress Questionnaire Answer [...] st Contact Info) Description 07/29/2024 10:00 AM NET TRAINER Infusion Department of Infusion Therapy in [address] [address] Melinda Isaac APRN, C.N.P. [address] [place] [phone] 07/29/2024 2:20 PM NET TRAINER Office Visit Department of Community Internal Medicine in [place], [place] 300 [place] [phone] Prudence Mena MPAS, P.A.-C. 300 [place] [phone] 07/30/2024 9:00 AM NET TRAINER Infusion Department of Infusion Therapy in [address] [address] Melinda Isaac APRN, C.N.P. [address] [place] [phone] 07/31/2024 8:00 AM NET TRAINER Infusion Department of Infusion Therapy in [address] [address] Melinda Isaac APRN, C.N.P. [address] [place] [phone] 08/01/2024 7:00 AM NET TRAINER Infusion Department of Infusion Therapy in [address] [address] Melinda Isaac APRN, C.N.P. [address] [place] [address] 08/02/2024 9:00 AM NET TRAINER Infusion Department of Infusion Therapy in [address] [address] Melinda Isaac APRN, C.N.P. [address] [place] [phone] 08/02/2024 12:30 PM NET TRAINER Clinical Communication Virtual Review in [place], [place] 200 [place] [address] 08/03/2024 9:00 AM NET TRAINER Infusion Department of Infusion Therapy in [address] [address] Melinda Isaac APRN, C.N.P. [address] [place] [address] 08/04/2024 9:00 AM NET TRAINER Infusion Department of Infusion Therapy in [address] [address] Melinda Isaac APRN, C.N.P. [address] [place] [phone] 08/05/2024 8:45 AM NET TRAINER Appointment Department of Radiology, [facility], in [place], [place] [address] [place] [phone] Kayleigh Small M.D. [address] [place] [phone] 08/05/2024 9:00 AM NET TRAINER Infusion Department of Infusion Therapy in [address] [phone] Melinda Isaac APRN, C.N.P. [address] [place] [phone] 08/05/2024 11:00 AM NET TRAINER Office Visit Section of Infectious Diseases in [place], [place] [address] [place] [phone] aKyleigh Small M.D. [address] [place] [phone] 08/06/2024 9:00 AM NET TRAINER Infusion Department of Infusion Therapy in [address] [phone] Melinda Isaac APRN, C.N.P. [address] [place] [address] 08/07/2024 9:00 AM NET TRAINER Infusion Department of Infusion Therapy in [address] [phone] Melinda Isaac APRN, C.N.P. [address] [place] [phone] 08/08/2024 9:00 AM NET TRAINER Infusion Department of Infusion Therapy in [address] [address] Melinda Isaac APRN, C.N.P. [address] [place] [phone] 08/09/2024 9:00 AM NET TRAINER Infusion Department of Infusion Therapy in [address] [address] Melinda Isaac APRN, C.N.P. [address] [place] [address] 08/10/2024 9:00 AM NET TRAINER Infusion Department of Infusion Therapy in [address] [address] Melinda Isaac APRN, C.N.P. [address] [place] [address] 08/11/2024 9:00 AM NET TRAINER Infusion Department of Infusion Therapy in [address] [address] Melinda Isaac APRN, C.N.P. [address] [place] [address] 08/12/2024 9:00 AM NET TRAINER Infusion Department of Infusion Therapy in [address] [address] Melinda Isaac APRN, C.N.P. [address] [place] [phone] 08/13/2024 8:30 AM NET TRAINER Infusion Department of Infusion Therapy in [address] [address] Melinda Isaac APRN, C.N.P. [address] [place] [address] 08/14/2024 9:00 AM NET TRAINER Infusion Department of Infusion Therapy in [address] [address] Melinda Isaac APRN, C.N.P. [address] [place] [address] 08/15/2024 9:00 AM NET TRAINER Infusion Department of Infusion Therapy in [address] [address] Melinda Isaac APRN, C.N.P. [address] [place] [address] 08/16/2024 9:00 AM NET TRAINER Infusion Department of Infusion Therapy in [address] [address] Melinda Isaac APRN, C.N.P. [address] [place] [phone] 08/17/2024 9:00 AM NET TRAINER Infusion Department of Infusion Therapy in [address] [address] Melinda Isaac APRN, C.N.P. [address] [place] [phone] 08/18/2024 9:00 AM NET TRAINER Infusion Department of Infusion Therapy in [address] [phone] Melinda Isaac, FRED, C.N.P. [address] [place] [address] Scheduled Orders Name Type Priority Associated Diagnoses [...] Depression Total Score: 22 025 7:19 PM NET TRAINER documented as of this encounter Care Teams Fountain Waitress/Waiter Relationship Specialty Start Date End Date Prudence Mena MPAS, P.A.-C. [address] [place] [phone] PCP - General Internal Medicine 02/08/24 documented as of this encounter
--- OUTSIDE RECORDS SUMMARY | 2024-07-28 22:51 | XMS_ITS | Encounter Summary ---
Author Organization [facility] Address [address] [place] [address] Care Team Providers Care Motorbike Courier Name Role Phone Prudence Mena P.A.-C. Primary [...] e alcohol) socially [facility] Utilities Answer Date Recorded In the past 12 months has e [employer], gas, oil, or water [employer] threatened to shut off services in your [...] Never 07/27/2022 How often do you attend restorationist or gnosticism serv ices? Never 07/27/2022 Do you belong to any clubs o r organizations such as restorationist groups, unions, fraternal or athletic groups, or [...] PHQ-2 Score 6 07/10/2024 [facility] - Occupational [...] Comments Blood Pressure 124/68 07/13/2024 7:49 PM MEDICAL EQUIPMENT SALES Pulse - - Temperature 36.7 C (98.1 F) 07/13/2024 2:28 PM MEDICAL EQUIPMENT SALES Respiratory Rate 20 07/13/2024 7:49 PM MEDICAL EQUIPMENT SALES Oxygen Saturation 95% 07/13/2024 7:49 PM MEDICAL EQUIPMENT SALES Inhaled Oxygen Concentration - - Weight 96 kg (211 lb 10.3 oz) 07/13/2024 2:28 PM MEDICAL EQUIPMENT SALES Height - - Body Mass Index 36.13 07/11/2024 10:32 AM MEDICAL EQUIPMENT SALES documented in this encounter Functional Status * Intimate Partner Violence Question Answer Date of Assessment Author Within the last year, have y ou been humiliated or emotionally abused in other ways by your partner or ex-partner? No 07/15/2024 8:00 PM MEDICAL EQUIPMENT SALES Helena Brady R.N. Within the last year, have y ou been afraid of your partner or ex-partner? No 07/15/2024 8:00 PM MEDICAL EQUIPMENT SALES Helena Brady R.N. Within the last year, have y ou been raped or forced to have any kind of sexual activity by your partner or ex-partner? No 07/15/2024 8:00 PM MEDICAL EQUIPMENT SALES Helena Brady R.N. Within the last year, have y ou been kicked, hit, slapped, or otherwise physically hurt by your partner or ex-partner? No 07/15/2024 8:00 PM MEDICAL EQUIPMENT SALES Helena Brady R.N. documented as of this encounter Progress Notes * Khoa Delgado, M.SKisha, MonicaSDmitryW. - 07/13/2024 2:14 PM CST [facility]: ATC referral SUBJECTIVE Referral received from [facility] on 07/13/24, as part of hospital transfer request from [place], [place] (phone: [phone]). OBJECTIVE This patient was not accepted for transfer prior to the assessment process. This is a 39 y.o. year old female from [address] [place], [place] [phone]. The patient was admitted to their facility [...] to the family. Destiny Manuel, Tiana.[email or web address]. 07/13/2024 [employer] EQUIPMENT SALES documented in this encounter Plan of Treatment Upcoming Encounters Date Type Department Care Team (Late st Contact [facility]) Description 07/29/2024 10:00 AM MEDICAL EQUIPMENT SALES Infusion Department of Infusion Therapy in [address] [phone] Melinda Isaac APRN, C.N.P. [address] [place] [phone] 07/29/2024 2:20 PM MEDICAL EQUIPMENT SALES Office Visit Department of Community Internal Medicine in [place], [place] 300 [place] [phone] Prduence Mena MPAS, P.A.-C. 300 [place] [phone] 07/30/2024 9:00 AM MEDICAL EQUIPMENT SALES Infusion Department of Infusion Therapy in [address] [address] Melinda Isaac APRN, C.N.P. [address] [place] [phone] 07/31/2024 8:00 AM MEDICAL EQUIPMENT SALES Infusion Department of Infusion Therapy in [address] [address] Melinda Isaac APRN, C.N.P. [address] [place] [address] 08/01/2024 7:00 AM MEDICAL EQUIPMENT SALES Infusion Department of Infusion Therapy in [address] [phone] Melinda Isaac APRN, C.N.P. [address] [place] [address] 08/02/2024 9:00 AM MEDICAL EQUIPMENT SALES Infusion Department of Infusion Therapy in [address] [phone] Melinda Isaac APRN, C.N.P. [address] [place] [phone] 08/02/2024 12:30 PM MEDICAL EQUIPMENT SALES Clinical Communication Virtual Review in [place], [place] 200 [place] [address] 08/03/2024 9:00 AM MEDICAL EQUIPMENT SALES Infusion Department of Infusion Therapy in [address] [address] Melinda Isaac APRN, C.N.P. [address] [place] [address] 08/04/2024 9:00 AM MEDICAL EQUIPMENT SALES Infusion Department of Infusion Therapy in [address] [address] Melinda Isaac APRN, C.N.P. [address] [place] [address] 08/05/2024 8:45 AM MEDICAL EQUIPMENT SALES Appointment Department of Radiology, [facility], in [place], [place] [address] [place] [phone] Kayleigh Small M.D. [address] [place] [phone] 08/05/2024 9:00 AM MEDICAL EQUIPMENT SALES Infusion Department of Infusion Therapy in [address] [address] Melinda Isaac APRN, C.N.P. [address] [place] [phone] 08/05/2024 11:00 AM MEDICAL EQUIPMENT SALES Office Visit Section of Infectious Diseases in [place], [place] [address] [place] [phone] Kayleigh Small M.D. [address] [place] [phone] 08/06/2024 9:00 AM MEDICAL EQUIPMENT SALES Infusion Department of Infusion Therapy in [address] [address] Melinda Isaac APRN, C.N.P. [address] [place] [address] 08/07/2024 9:00 AM MEDICAL EQUIPMENT SALES Infusion Department of Infusion Therapy in [address] [address] Melinda Isaac APRN, C.N.P. [address] [place] [address] 08/08/2024 9:00 AM MEDICAL EQUIPMENT SALES Infusion Department of Infusion Therapy in [address] [address] Melinda Isaac APRN, C.N.P. [address] [place] [phone] 08/09/2024 9:00 AM MEDICAL EQUIPMENT SALES Infusion Department of Infusion Therapy in [address] [phone] Melinda Isaac APRN, C.N.P. [address] [place] [address] 08/10/2024 9:00 AM MEDICAL EQUIPMENT SALES Infusion Department of Infusion Therapy in [address] [address] Melinda Isaac APRN, C.N.P. [address] [place] [phone] 08/11/2024 9:00 AM MEDICAL EQUIPMENT SALES Infusion Department of Infusion Therapy in [address] [address] Melinda Isaac APRN, C.N.P. [address] [place] [phone] 08/12/2024 9:00 AM MEDICAL EQUIPMENT SALES Infusion Department of Infusion Therapy in [address] [phone] Melinda Isaac APRN, C.N.P. [address] [place] [phone] 08/13/2024 8:30 AM MEDICAL EQUIPMENT SALES Infusion Department of Infusion Therapy in [address] [address] Melinda Isaac APRN, C.N.P. [address] [place] [phone] 08/14/2024 9:00 AM MEDICAL EQUIPMENT SALES Infusion Department of Infusion Therapy in [address] [address] Melinda Isaac APRN, C.N.P. [address] [place] [address] 08/15/2024 9:00 AM MEDICAL EQUIPMENT SALES Infusion Department of Infusion Therapy in [address] [address] Melinda Isaac APRN, C.N.P. [address] [place] [phone] 08/16/2024 9:00 AM MEDICAL EQUIPMENT SALES Infusion Department of Infusion Therapy in [address] [address] Melnida Isaac APRN, C.N.P. [address] [place] [phone] 08/17/2024 9:00 AM MEDICAL EQUIPMENT SALES Infusion Department of Infusion Therapy in [address] [address] Melinda Isaac APRN, C.N.P. [address] [place] [phone] 08/18/2024 9:00 AM MEDICAL EQUIPMENT SALES Infusion Department of Infusion Therapy in [address] [address] Melinda Isaac APRN, C.N.P. [address] [place] [phone] documented as of this encounter Visit Diagnoses Not on filedocumented in this encounter Additional Health Concerns Assessment Noted Time PHQ-9 Depression Total Score: 22 025 7:19 PM MEDICAL EQUIPMENT SALES documented as of this encounter Care Teams Motorbike Courier Relationship Specialty Start Date End Date Prudence Mena MPAS, P.A.-C. 300 [facility] [place] [address] PCP - General Internal Medicine 02/08/24 documented as of this encounter
--- OUTSIDE RECORDS SUMMARY | 2024-07-28 22:51 | XMS_ITS | Encounter Summary ---
Author Organization [facility] Address [address] [place] [id number] Care Team Providers Care Harness Mender Name Role Phone Prudence Mena P.A.-C. Primary Care Pro vider Reason for Visit * Auth/Cert (Routine) Specialty Diagnoses / Procedures Referred By Contac t Referred To Contact Diagnoses Empyema Pleural (HCC) Pleuritic chest pain. empyema Procedures INPT Referral ID Status Reason Start Date Expiration Date Visits Re quested Visits Authorized [id number] 1 1 Encounter Details Date Type Department Care Team (Late st Contact Info) Description 07/15/2024 1:10 PM EXPLOSIVES OPERATOR - 07/15/2024 4:33 PM EXPLOSIVES OPERATOR Surgery RST ROMB MAIN OR [address] [place] [phone] Patrick Mtz M.D., Ph.D. [address] [place] [phone] ROBOTIC THORACOSCOPY, DECORTICATION, PLEURODESIS, PROCEED INDICATED. Social History Tobacco Use Types Packs/Day Years Used Date Smoking Tobacco: Former Cigarettes 1.5 0.1 S tarted: 06/21/2024 Passive Smoke Exposure: Past Smokeless Tobacco: Never Alcohol Use Standard Drinks/Week Comments Yes 0 (1 standard drink = 0.6 oz pur e alcohol) socially [facility] Utilities Answer Date Recorded In [...] Never 07/27/2022 How often do you attend druze or bahai serv ices? Never 07/27/2022 Do you belong to any clubs o r organizations such as druze groups, unions, fraternal or athletic groups, or [...] Recorded PHQ-2 Score 6 07/10/2024 [facility] [...] Comments Blood Pressure 132/87 07/15/2024 8:30 AM EXPLOSIVES OPERATOR Pulse 99 07/15/2024 8:30 AM EXPLOSIVES OPERATOR Temperature 36.8 C (98.2 F) 07/15/2024 8:30 AM EXPLOSIVES OPERATOR Respiratory Rate 22 07/15/2024 8:30 AM EXPLOSIVES OPERATOR Oxygen Saturation 98% 07/15/2024 8:30 AM EXPLOSIVES OPERATOR Inhaled Oxygen Concentration - - Weight 96 kg (211 lb 10.3 oz) 07/13/2024 8:00 PM EXPLOSIVES OPERATOR Height - - Body Mass Index 37.53 07/17/2024 3:00 PM EXPLOSIVES OPERATOR documented in this encounter Discharge Summaries * Shahram Abernathy, FRED, C.N.P., M.S. - 07/20/2024 10:16 AM CST DISCHARGE SUMMARY BRIEF OVERVIEW Hospital: [facility] Discharge Provider: Patrick tMz M.D. Primary Team: [facility] Thoracic Surgery - [place] Primary Care Providers: Prudence Mena MPAS, P.A.-CDmitry (General) [address] [place] [phone] Primary Care Provider Primary Care Provider Other [...] INDICATED. Patrick Mtz M.D., Ph.D.Catrina Sutton M.D. [facility] ROMB OR DISCHARGE DISPOSITION Home [...] with any questions or issues. Admin Ast: [phone] (M-F 8 AM to 5 PM) Customer Retention Specialist: [phone] (Thoracic Surgery Specialty Sales Representative for Nights & Weekend Urgent Issues) Appointments: [phone] INFECTIOUS DISEASES THERAPY RECOMMENDATIONS Antimicrobial plan: Patient [...] of Infectious Diseases OPAT monitoring program at [phone]. Should patient be enrolled in OPAT/COPAT program: [...] 10 Appointments 07/21/2024 9:00 AM CHAIR 01 [facility] 02 INF Infusion Therapy 07/22/2024 9:00 AM CHAIR 05 [facility] 02 INF Infusion Therapy 07/23/2024 9:00 AM CHAIR 05 [facility] 02 INF Infusion Therapy 07/24/2024 9:00 AM CHAIR 03 [facility] XX INF Infusion Therapy 07/25/2024 9:00 AM CHAIR 05 [facility] 02 INF Infusion Therapy 07/26/2024 9:00 AM CHAIR 05 [facility] 02 INF Infusion Therapy 07/27/2024 9:00 AM CHAIR 01 [facility] 02 INF Infusion Therapy 07/28/2024 9:00 AM CHAIR 01 [facility] 02 INF Infusion Therapy 07/29/2024 10:00 AM [...] female who was a direct admission from [facility] on for a left-sided empyema. [...] LEGIONELLA CULTURE Pleura, Left Collected By: Patrick Mzt M.D., Ph.D. 07/15/2024 4:01 PM Should the [...] discharge services today: greater than 30 minutes. OSIVES OPERATOR documented in this encounter Discharge Instructions * Attachments The following attachments cannot be sent through Care Everywhere. * Acute Pain and the Healing Process * Ceftriaxone (By injection) (Slovak) * Ibuprofen (By mouth) (Slovak) * Methocarbamol (By mouth) (Slovak) * Metronidazole (By mouth) (Slovak) * Oxycodone, Rapid Release (By mouth) (Slovak) * Laxative, Stimulant (By mouth) (Slovak) documented in this encounter Medications at Time [...] muscle spasms. 45 tablet 07/20/2024 10:13 AM EXPLOSIVES OPERATOR 07/19/2024 metroNIDAZOLE (FlagyL) 500 mg tabletIndication s:Empyema Take 1 tablet (500 mg total) by mouth 3 (three) times a day for 17 days Indications: Empyema. 51 tablet 07/20/2024 10:13 AM EXPLOSIVES OPERATOR 07/19/2024 multivitamin capsule Take 1 capsule by [...] a venous catheter daily for 17 days. [facility] 07/19/2024 5 DME CPAPIndications: Obstructive Sleep [...] Pain Exception. 28 tablet 07/20/2024 10:13 AM EXPLOSIVES OPERATOR 07/19/2024 documented as of this encounter Progress [...] Discharge today Patient discussed with Dr. Mtz. OSIVES OPERATOR * Denny Ann R.RDmitryT., L.R.T. - 07/20/2024 [...] Denny Ann R.R.T., L.R.T. 07/20/24 7:32 AM EXPLOSIVES OPERATOR OSIVES OPERATOR * Kusum Urena R.R.T., L.R.T. - 07/19/2024 [...] Kusum Urena R.R.T., LDmitryR.T. 07/19/24 1:54 PM EXPLOSIVES OPERATOR OSIVES OPERATOR * Lopez Garvey M.D. - 07/19/2024 12:18 [...] Encourage ambulance Patient discussed with Dr. Mtz. OSIVES OPERATOR * Arlyn Starr R.RElizabeth, L.R.T. - 07/18/2024 [...] Arlyn Starr R.R.T., L.R.T. 07/18/24 12:39 PM EXPLOSIVES OPERATOR OSIVES OPERATOR OSIVES OPERATOR * Anna Wheeler - 07/18/2024 12:26 PM CST Clinical Nutrition: Initial Assessment RECOMMENDATIONS REQUIRING MD/PROVIDER ORDER No changes at this time; continue current nutrition orders For questions about patient's nutritional care please contact pager [phone] on weekdays or [phone] on weekends/holidays. NUTRITION ASSESSMENT: Ms. Kumar is [...] patient report. ESTIMATED NEEDS: Total Calorie Needs: 5791-6653 calories/day Method to Estimate Energy Needs: [place] ( ) Weight Used for Equation Calculations: 96 kg Total Protein Needs: 77 - 96 grams/day Method to Estimate Protein Needs (g/kg): 0.8 - 1 gm/kg Weight Used to Calculate Protein Needs (Kg): 96 kg Nutrition Diagnosis: Clinical risk not noted Nutrition Intervention: Medical food supplement Monitoring/Evaluation: Nutrition parameter to monitor: Meals/Supplement Intake, Weight Status OSIVES OPERATOR * Patrick Mtz M.D., Ph.D. - 07/18/2024 10:56 AM CST I visited face to face with the patient on NT10 this morning. We will obtain an updated chest x-raywith a view towards removing 1 of her chest tubes today. We will follow the recommendations of our Infectious Disease colleagues regarding ongoing antibiotic management. OSIVES OPERATOR * Magno Fisher, Ph.D. - 07/18/2024 8:59 [...] Encourage ambulance Patient discussed with Dr. Mtz. OSIVES OPERATOR * Kayleigh Small M.D. - 07/18/2024 8:24 [...] Please page the ICU-ID service pager at [phone] with questions. Thank you for the consultation. Discussed with Dr. Camejo, ID customer care consultant and the primary team. Kayleigh Small [...] of Infectious Diseases OPAT monitoring program at [phone]. Should patient be enrolled in OPAT/COPAT program: [...] Camejo M.D., M.S. at 07/18/2024 1:06 PM EXPLOSIVES OPERATOR OSIVES OPERATOR OSIVES OPERATOR Associated attestation - Hay Camejo M.D., M.S. - 07/18/2024 1:06 PM EXPLOSIVES OPERATOR I saw and evaluated the patient, participating [...] Montrell Garland R.R.T., Christian 07/17/24 1:04 PM EXPLOSIVES OPERATOR OSIVES OPERATOR * Lopez Garvey M.D. - 07/17/2024 9:19 [...] spirometer Discussed with Dr. Smith Garvey MD OSIVES OPERATOR * Jarocho Belle, Eleazar.Ph. - 07/16/2024 1:12 PM CST Pharmacokinetic Consult - Vancomycin Dosing Melinda Kumar is a 39 y.o. female who has received a pharmacy consult for vancomycin therapyfor dose optimization and monitoring. Indication: Respiratory tract infection, healthcare associated Goal trough: 10-15 mcg/mL OBJECTIVE There is no height or weight on file to calculate BMI. [place] body weight: 55.1 kg Adjusted ideal body [...] patient's clinical progress daily. Jarocho Belle, R.Ph. OSIVES OPERATOR * Gema Srinivasan R.R.T., L.R.T. - 07/16/2024 [...] Gema Srinivasan R.R.T., L.R.T. 07/16/24 11:34 AM EXPLOSIVES OPERATOR OSIVES OPERATOR * Lopez Garvey M.D. - 07/16/2024 9:46 AM CST Ms. Kumar is POD 1 from left robotic decortication, 2 chest tubes were left in place Patient is afebrile and hemodynamically stable. She had a PEANUT SEPARATOR started overnight for pain control. She otherwise [...] spirometer Discussed with Dr. Smith Garvey MD OSIVES OPERATOR * Patrick Mtz M.D., Ph.D. - 07/16/2024 [...] female who was a direct admission from [facility] on for a left-sided empyema. [...] female who was a direct admission from [facility] on for a left-sided empyema. She will be proceeding to the operating room tomorrow for left VATS decortication. Plan: -continue IV antibiotics -OR today Discussed with Dr. Smith Garvey MD OSIVES OPERATOR * Lopez Garvey M.D. - 07/14/2024 9:00 AM CST Ms. Kumar is a 39-year-old female who was a direct admission from [facility] on for a left-sided empyema. [...] female who was a direct admission from [facility] on for a left-sided empyema. She will be proceeding to the operating room tomorrow for left VATS decortication. Plan: -continue IV antibiotics -regular diet today, NPO at midnight -continue pain control -patient has listed, will be consented and site marked for operating room tomorrow Discussed with Dr. Smith Garvey MD OSIVES OPERATOR * Maxim Freed Pharm.D., R.Ph., [facility] - 07/14/2024 8:27 AM CST Images from the original note were not included. Pharmacist Progress Note Reason for admission: direct admission from [facility] on July 13 for a [...] DME Order Patient stated she needs to leaf size picker DULoxetine (CYMBALTA) [address] capsule 07/13/2024 [...] information available at the time of documentation. OSIVES OPERATOR documented in this encounter H&P Notes * Lopez Garvey M.D. - 07/13/2024 7:38 PM CST History and Physical SUBJECTIVE Chief Complaint:pleuritic chest pain HPI: Melinda Kumar is a 39 y.o. female with a past medical history significant for fibromyalgia, chronic back pain, asthma, sleep apnea, hypertension, depression who was directly admitted for left empyema. Patient presented at the end of June to [facility] initially with pneumonia, following influenza [...] to worsening symptoms she presented again to [facility] where she underwent a CT [...] AGENT; Surgeon: Yobany Soares M.D., Ph.D.; Location: [facility] OR HYDRODISTENSION BLADDER WITH CYSTOSCOPY N/A 06/30/2023 Procedure: HYDRODISTENSION BLADDER WITH CYSTOSCOPY; Surgeon: Yobany Soares M.D., Ph.D.; Location: [facility] OR INJECTION BOTOX Bilateral 06/30/2023 Procedure: INJECTION BOTOX PELVIC FLOOR; Surgeon: Yobany Soares M.D., Ph.D.; Location: [facility] OR OTHER SURGICAL HISTORY 10/2017 [...] DME Order Patient stated she needs to leaf size picker), Disp: 1 each, Rfl: 0 DULoxetine [...] room Discussed with Dr. Smith Garvey MD OSIVES OPERATOR documented in this encounter Procedure Notes * [...] with ultrasound and measured to ensure appropriate fsnjzjup-bw-cpac ratio of 45% or less: Right Basilic [...] to release the adhesive from the skin. [email or web address] OSIVES OPERATOR documented in this encounter Consult Notes * Karen Wilkerson M.S.W., HamletSDmitryW. - 07/18/2024 12:33 PM CSTAssociated Order(s): IP CONSULT TO CARE MANAGEMENT Psychosocial Assessment SUBJECTIVE ASSESSMENT INFORMATION Referral Data Referral Source: FURNACE CARETAKER/PA Referral Reason: Psychosocial assessment, Discharge Planning Previous Assessment: No Desk Reporter Services Used: No Primary Language: Slovak Desk Reporter Services Used: No Sexuality/Pronoun: Straight / Person(s) [...] PRESENT ILLNESS Patient is currently hospitalized at [facility] on [facility] [address]. Patient shares that she cameto the hospital for Pneumonia. SOCIAL HISTORY Family / Household: Patient reports living in a multi level town home with her 4 sons ages 17, 17, 15 and 10. Support System: 4 children and family in [place] Spirituality/Spiritism/Cultural Factors: None History: No Employment: disabled Psychosocial [...] functioning Family support OBJECTIVE FINANCES/INSURANCE Primary insurance: [employer] HMO Secondary insurance: N/A Financial concerns: No ADVANCE DIRECTIVES Legal Decision Maker: Self Advance Directives: N/A Advance Directives Status: N/A BASELINE FUNCTIONAL STATUS Baseline Activities of Daily Living Mobility: Independent Dressing: Independent Feeding: Independent Bathing: Independent Grooming: Independent Toileting: Independent Behavior: Pleasant, Calm, Appropriate, Oriented, Cooperative Communication: Can write, Talks, Understands speaking, Understands Slovak Shopping: Needs assistance Medication Management: Independent Housekeeping: [...] current substance use. ASSESSMENT / PLAN DISCUSSION Blood Splatter Analyst met with patient in hospital room to provide a supportive visit, complete a psychosocial, and assist with discharge needs. 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 Patient expressed understanding of the purpose of [...] our ownership and financial relationship of the [facility] beds, home health, and hospice agencies. Reviewed [facility] medicaid insurance coverage and provided in-network options. Patient anticipates discharging home once medically ready without patient infusions at [facility]. Patient reports no further questions currently. Encouraged patient to contact Blood Splatter Analyst should additional needs arise. livestock farmworker returned to inform patient that [facility] is not open on weekends and that she willneed to go to [place]. Patient was agreeable to this. Patient's mother was in the room and shared that she had a question for manager social responsibility. Patient's mother asked about help with cleaning around the home. livestock farmworker [place] [...] PLAN Outpatient infusions will be obtained through: [facility] Monday- Monday and [facility] on Weekends. Phone for scheduling- [phone] Phone for [phone] NURSING: - Call to arrange for the patient???s first visit Prior to 3 pm Monday if Discharging over the weekend. - Adjust the dosing schedule to accommodate [facility] schedule. - Complete documentation in the Discharge Navigator including Nursing Report Info and Facility/NextLevel of Care Info PRIMARY SERVICE: - Complete infusion therapy and lab orders in [facility] as needed. - Identify the continuing care provider, who will follow the patient while receiving outpatient infusion at [facility]. Social Work : -Will continue to follow. Anticipated barriers to the transition of care/plan: None identified at this time. Destiny Gonzales, Melida.I.C.S.W. 07/18/2024 OSIVES OPERATOR OSIVES OPERATOR * Kayleigh Small M.D. - 07/17/2024 10:59 AM CSTAssociated Order(s): IP CONSULT TO INFECTIOUS DISEASES Infectious Diseases ICU Consulting Service Consult Note SUBJECTIVE REASON FOR CONSULT We are seeing Ms. Kmuar at the request of Patrick Mtz M.D., Ph.* to give further recommendations for evaluation and management of Acromial recommendations. HISTORY OF PRESENT ILLNESS Melinda Kumar is a 39 y.o. female with past medical history of fibromyalgia, chronic back pain, asthma, sleep apnea, hypertension, depression who was admitted for left empyema. Interval history includes initial presentation to [facility] ED 06/26/2024 and was prescribed azithromycin and prednisone for walking pneumonia. She was admitted to [facility] 06/30/2024-07/04/2024 with sepsis secondary to left lower lobe pneumonia and was treated with IV antibiotics and IV steroid. She was discharged on 07/04/2024 on oral antibiotics (doxycycline for 5 days. After d ischarge patient continued continued to have shortness of breath and left pleuritic chest pain. Dueto worsening in symptoms she presented again to [facility] where she underwent CT chest which showed worsening left pleural effusion and empyema. [facility] She underwent left [...] - Date/Time Bacterial Culture, Anaerobic + Susceptibility [[id number]] Collected: 07/15/24 1600 Lab Status: Preliminary result Specimen: Tissue from Pleura, Left Updated: 07/17/24 0739 Bacterial Culture, Anaerobic + Susc No growth to date. Fungal Culture, Routine [[id number]] Collected: 07/15/24 1600 Lab Status: In process Specimen: Tissue from Pleura, Left Updated: 07/15/24 1720 Gram Stain [[id number]] Collected: 07/15/24 1600 Lab Status: Final result Specimen: Tissue from Pleura, Left Updated: 07/15/24 2218 Gram Stain No organisms seen. White blood cells, Many Acid Fast Smear for Mycobacterium [[id number]] Collected: 07/15/24 1600 Lab Status: Final result Specimen: Tissue from Pleura, Left Updated: 07/15/24 2218 Acid Fast Smear For Mycobacterium Negative. Legionella Culture [[id number]] Collected: 07/15/24 1600 Lab Status: Preliminary result Specimen: Tissue from Pleura, Left Updated: 07/17/24 0754 Legionella Culture No growth to date. Fungal Smear [[id number]] Collected: 07/15/241599 Lab Status: Final result Specimen: Tissue from Pleura, Left Updated: 07/16/24 0852 Fungal Smear Negative. Mycobacterial Culture [[id number]] Collected: 07/15/24 1600 Lab Status: In process Specimen: Tissue from Pleura, Left Updated: 07/15/24 1720 Actinomyces Culture [[id number]] Collected: 07/15/24 1600 Lab Status: Preliminary result Specimen: Tissue from Pleura, Left Updated: 07/17/24 0739 Actinomyces Culture No growth to date. Bacterial Culture, Aerobic + Susceptibility [[id number]] Collected: 07/15/24 1600 Lab Status: Preliminary result Specimen: Tissue from Pleura, Left Updated: 07/17/24 0847 Bacterial Culture, Aerobic + Susc No growth to date. Fungal Culture, Routine [[id number]] Collected: 07/15/24 1424 Lab Status: In process Specimen: Pleural Fluid, Left Updated: 07/15/24 1519 Narrative: Bacterial Culture: Placed in Bactec aerobic and Bactec anaerobic bottles Gram Stain [[id number]] Collected: 07/15/24 142 Lab Status: Final result Specimen: Pleural Fluid, Left Updated: 07/15/24 2002 Gram Stain No organisms seen. White blood cells, Moderate Narrative: Bacterial Culture: Placed in Bactec aerobic and Bactec anaerobic bottles Acid Fast Smear for Mycobacterium [[id number]] Collected: 07/15/24 1424 Lab Status: Final result Specimen: Pleural Fluid, Left Updated: 07/15/24 2125 Acid Fast Smear For Mycobacterium Negative. Narrative: Bacterial Culture: Placed in Bactec aerobic and Bactec anaerobic bottles Fungal Smear [[id number]] Collected: 07/15/24 1424 Lab Status: Final result Specimen: Pleural Fluid, Left Updated: 07/15/24 1925 Fungal Smear Negative. Narrative: Bacterial Culture: Placed in Bactec aerobic and Bactec anaerobic bottles Mycobacterial Culture [[id number]] Collected: 07/15/24 1424 Lab Status: In process Specimen: Pleural Fluid, Left Updated: 07/15/24 1519 Narrative: Bacterial Culture: Placed in Bactec aerobic and Bactec anaerobic bottles Bacterial Culture, Aerobic + Susceptibility [[id number]] Collected: 07/15/24 1424 Lab Status: Preliminary result Specimen: Pleural Fluid, Left Updated: 07/17/24 0847 Bacterial Culture, Aerobic + Susc No growth to date. Narrative: Bacterial Culture: Placed in Bactec aerobic and Bactec anaerobic bottles Staph aureus / MRSA, Nasal, PCR [[id number]] Collected: 07/14/24 1039 Lab Status: Final result [...] Please page the ICU-ID service pager at [phone] with questions. Thank you for the consultation. Discussed with Dr. Camejo, ID customer care consultant and the primary team. Kayleigh Small M.D. Infectious Diseases Fellow Cosigned by Hay Camejo M.D., M.S. at 07/17/2024 2:43 PM EXPLOSIVES OPERATOR OSIVES OPERATOR OSIVES OPERATOR Associated attestation - Hay Camejo M.D., M.S. - 07/17/2024 2:43 PM EXPLOSIVES OPERATOR I saw and evaluated the patient, participating [...] If some point, she was admitted to [facility] at the end of June for sepsis [...] Goal: Maintain a safe environment Outcome: Progressing OSIVES OPERATOR * Malcolm Cordon R.N. - 07/19/2024 4:47 [...] DC home tomorrow (07/20). Malcolm Cordon R.N. OSIVES OPERATOR * Shawna Little R.N., C.M.S.R.NDmitry - 07/17/2024 10:01 PM CST Shift Goals: Clinical Goals for the Shift: Pt will state pain is tolerable after discontinuing PEANUT SEPARATOR. Identify possible barriers to meeting goals/advancing plan [...] pain 6-9/10 during shift. Ice pack utilized. PEANUT SEPARATOR DC'd. Scheduled Tylenol given. PRN oxycodone, Robaxin [...] SATS above 90% Encouraged incentive spirometer use. OSIVES OPERATOR * Bhumi Chawla R.NDmitry - 07/17/2024 5:43 AM CST Shift Goals: Clinical Goals for the Shift: Patient will get adequate rest overnight and report good pain control Identify possible barriers to meeting goals/advancing plan of care: None End of Shift Summary: Sasha slept well overnight in between cares. Pain controlled with PEANUT SEPARATOR, PRN Robaxin and scheduled tylenol. She ambulated [...] Achieves optimal ventilation and oxygenation Outcome: Progressing OSIVES OPERATOR * Diane Blevins R.N. - 07/15/2024 1:15 PM CST Patient came to OR with personal belongings including 4 earrings and 1 ring/piercing. Sent with patient on chart. Roxanne Blevins RN OSIVES OPERATOR * Candi Leonard R.N. - 07/15/2024 6:24 [...] Absence of infection during hospitalization Outcome: Progressing OSIVES OPERATOR * Helena Brady R.N. - 07/14/2024 6:41 [...] Goal: Patient discharge needs identified Outcome: Progressing OSIVES OPERATOR documented in this encounter OR Notes * Op Note - Catrina Sutton M.D. - 07/15/2024 2:11 PM CST Pre-op Diagnosis Empyema Pleural (HCC) Post-op Diagnosis Empyema Pleural (HCC) Gelatin Dynamite Packing Operator A facility assistant actively participated and was necessary for [...] Mtz M.D., Ph.D. at 07/17/2024 8:18 AM EXPLOSIVES OPERATOR OSIVES OPERATOR OSIVES OPERATOR * Brief Op Note - Catrina Sutton M.D. - 07/15/2024 2:11 PM EXPLOSIVES OPERATOR Pre-op Diagnosis Empyema Pleural (HCC) Post-op Diagnosis Empyema Pleural (HCC) Findings Multiple adhesions and pockets of pus involving the pleura, lower lobe and diaphragm Complications None Catrina Cole M.D. OSIVES OPERATOR documented in this encounter Miscellaneous Notes * Hospital Course - Melinda Isaac APRN, C.N.P. - 07/16/2024 8:03 AM EXPLOSIVES OPERATOR Ms. Kumar is a 39-year-old female who was a direct admission from [facility] on for a left-sided empyema. [...] a general diet, and voiding without difficulty. OSIVES OPERATOR OSIVES OPERATOR OSIVES OPERATOR OSIVES OPERATOR OSIVES OPERATOR OSIVES OPERATOR OSIVES OPERATOR OSIVES OPERATOR OSIVES OPERATOR OSIVES OPERATOR documented in this encounter Plan of Treatment Upcoming Encounters Date Type Department Care Team (Late st Contact Info) Description 07/29/2024 10:00 AM EXPLOSIVES OPERATOR Infusion Department of Infusion Therapy in [address] [phone] Melinda Isaac APRN, C.N.P. [address] [place] [phone] 07/29/2024 2:20 PM EXPLOSIVES OPERATOR Office Visit Department of Community Internal Medicine in [address] [phone] Prudence Mena MPAS, P.A.-C. [address] [place] [phone] 07/30/2024 9:00 AM EXPLOSIVES OPERATOR Infusion Department of Infusion Therapy in [address] [phone] Melinda Isaac APRN, C.N.P. [address] [place] [phone] 07/31/2024 8:00 AM EXPLOSIVES OPERATOR Infusion Department of Infusion Therapy in [address] [phone] Melinda Isaac APRN, C.N.P. [address] [place] [phone] 08/01/2024 7:00 AM EXPLOSIVES OPERATOR Infusion Department of Infusion Therapy in [address] [phone] Melinda Isaac APRN, C.N.P. [address] [place] [phone] 08/02/2024 9:00 AM EXPLOSIVES OPERATOR Infusion Department of Infusion Therapy in [address] [phone] Melinda Isaac APRN, C.N.P. [address] [place] [phone] 08/02/2024 12:30 PM EXPLOSIVES OPERATOR Clinical Communication Virtual Review in [place], [place] 200 [place] [address] 08/03/2024 9:00 AM EXPLOSIVES OPERATOR Infusion Department of Infusion Therapy in [address] [address] Melinda Isaac APRN, C.N.P. [address] [place] [phone] 08/04/2024 9:00 AM EXPLOSIVES OPERATOR Infusion Department of Infusion Therapy in [address] [phone] Melinda Isaac APRN, C.N.P. [address] [place] [phone] 08/05/2024 8:45 AM EXPLOSIVES OPERATOR Appointment Department of Radiology, [facility], in [place], [place] [address] [place] [phone] Kayleigh Small M.D. [address] [place] [phone] 08/05/2024 9:00 AM EXPLOSIVES OPERATOR Infusion Department of Infusion Therapy in [address] [phone] Melinda Isaac APRN, C.N.P. [address] [place] [phone] 08/05/2024 11:00 AM EXPLOSIVES OPERATOR Office Visit Section of Infectious Diseases in [place], [place] [address] [place] [phone] Kayleigh Small M.D. [address] [place] [phone] 08/06/2024 9:00 AM EXPLOSIVES OPERATOR Infusion Department of Infusion Therapy in [address] [phone] Melinda Isaac APRN, C.N.P. [address] [place] [phone] 08/07/2024 9:00 AM EXPLOSIVES OPERATOR Infusion Department of Infusion Therapy in [address] [phone] Melinda Isaac APRN, C.N.P. [address] [place] [phone] 08/08/2024 9:00 AM EXPLOSIVES OPERATOR Infusion Department of Infusion Therapy in [address] [phone] Melinda Isaac APRN, C.N.P. [address] [place] [phone] 08/09/2024 9:00 AM EXPLOSIVES OPERATOR Infusion Department of Infusion Therapy in [address] [place] [address] Melinda Isaac APRN, C.N.P. [address] [place] [phone] 08/10/2024 9:00 AM EXPLOSIVES OPERATOR Infusion Department of Infusion Therapy in [address] [phone] Melinda Isaac APRN, C.N.P. [address] [place] [phone] 08/11/2024 9:00 AM EXPLOSIVES OPERATOR Infusion Department of Infusion Therapy in [address] [phone] Melinda Isaac APRN, C.N.P. [address] [place] [phone] 08/12/2024 9:00 AM EXPLOSIVES OPERATOR Infusion Department of Infusion Therapy in [address] [phone] Melinda Isaac APRN, C.N.P. [address] [place] [phone] 08/13/2024 8:30 AM EXPLOSIVES OPERATOR Infusion Department of Infusion Therapy in [address] [phone] Melinda Isaac APRN, C.N.P. [address] [place] [phone] 08/14/2024 9:00 AM EXPLOSIVES OPERATOR Infusion Department of Infusion Therapy in [address] [address] Melinda Isaac APRN, C.N.P. [address] [place] [phone] 08/15/2024 9:00 AM EXPLOSIVES OPERATOR Infusion Department of Infusion Therapy in [address] [phone] Melinda Isaac APRN, C.N.P. [address] [place] [phone] 08/16/2024 9:00 AM EXPLOSIVES OPERATOR Infusion Department of Infusion Therapy in [address] [phone] Melinda Isaac APRN, C.N.P. [address] [place] [phone] 08/17/2024 9:00 AM EXPLOSIVES OPERATOR Infusion Department of Infusion Therapy in [address] [phone] Melinda Isaac APRN, C.N.P. [address] [place] [phone] 08/18/2024 9:00 AM EXPLOSIVES OPERATOR Infusion Department of Infusion Therapy in [address] [phone] Melinda Isaac APRN, C.N.P. [address] [place] [phone] Pending Results Name Type Priority Associated Diagnoses Date /Time Fungal Culture, Routine Microbiology Routine Empyema Pleural ([facility]) 07/15/2024 2:24 PM EXPLOSIVES OPERATOR Mycobacterial Culture Microbiology Routine Empyema Pleural ([facility]) 07/15/2024 2:24 PM EXPLOSIVES OPERATOR Bacterial Culture, Anaerobic + Susceptibility Microbiology Routine Empyema Pleural ([facility]) 07/15/2024 4:00 PM EXPLOSIVES OPERATOR Fungal Culture, Routine Microbiology Routine Empyema Pleural (HCC) 07/15/2024 4:00 PM EXPLOSIVES OPERATOR Mycobacterial Culture Microbiology Routine Empyema Pleural (HCC) 07/15/2024 4:00 PM EXPLOSIVES OPERATOR Actinomyces Culture Microbiology Routine Empyema Pleural (HCC) 07/15/2024 4:00 PM EXPLOSIVES OPERATOR Scheduled Orders Name Type Priority Associated Diagnoses Order Schedule DX Chest AP or PA and Lateral 2 Views Imaging RAD - Routine (most inpatients and all outpatients) Empyema Pleural (HCC) Expected: 08/30/2024 (Approximate), Expires: 07/19/2027 Perform central millinery copyist: Site care, Flush port(s) Procedures Routine Empyema Pleural (HCC) Expected: 07/22/2024, Expires: 10/17/2025 Perform central millinery copyist: Flush port(s), Site care Procedures Routine Empyema [...] inpatients and all outpatients) 07/19/2024 1:04 PM EXPLOSIVES OPERATOR NOCTURNAL OXYGEN STUDY - RT Routine 07/19/2024 12:24 PM EXPLOSIVES OPERATOR DX CHEST AP OR PA AND LATERAL 2 VIEWS RAD - Routine (most inpatients and all outpatients) 07/19/2024 9:10 AM EXPLOSIVES OPERATOR ADULT OXYGEN THERAPY Routine 07/19/2024 8:01 AM EXPLOSIVES OPERATOR CBC WITHOUT DIFFERENTIAL, B Routine 07/19/2024 6:02 AM EXPLOSIVES OPERATOR BASIC METABOLIC PANEL, S/P Routine 07/19/2024 6:[address] PERIPHERALLY INSERTED CENTRAL CATHETER (PICC) Routine 07/18/2024 8:43 PM EXPLOSIVES OPERATOR ADULT OXYGEN THERAPY Routine 07/18/2024 8:01 PM EXPLOSIVES OPERATOR DX CHEST AP OR PA AND LATERAL 2 VIEWS RAD - Routine (most inpatients and all outpatients) 07/18/2024 10:15 AM EXPLOSIVES OPERATOR ADULT OXYGEN THERAPY Routine 07/18/2024 8:00 AM EXPLOSIVES OPERATOR ADULT OXYGEN THERAPY Routine 07/17/2024 8:01 PM EXPLOSIVES OPERATOR HIV-1/-2 AG AND AB SCREEN, PLASMA Routine 07/17/2024 5:05 PM EXPLOSIVES OPERATOR ADULT OXYGEN THERAPY Routine 07/17/2024 8:01 AM EXPLOSIVES OPERATOR ADULT OXYGEN THERAPY Routine 07/16/2024 8:01 PM EXPLOSIVES OPERATOR RESPIRATORY ASSESS AND TREAT Routine 07/16/2024 2:00 PM EXPLOSIVES OPERATOR VANCOMYCIN, TROUGH, S Timed 07/16/2024 10:31 AM EXPLOSIVES OPERATOR ADULT OXYGEN THERAPY Routine 07/16/2024 8:01 AM EXPLOSIVES OPERATOR ADULT OXYGEN THERAPY Routine 07/15/2024 8:01 PM EXPLOSIVES OPERATOR ADULT OXYGEN THERAPY Routine 07/15/2024 6:49 PM EXPLOSIVES OPERATOR ADULT OXYGEN THERAPY Routine 07/15/2024 6:49 PM EXPLOSIVES OPERATOR ADULT OXYGEN THERAPY Routine 07/15/2024 6:49 PM EXPLOSIVES OPERATOR DX CHEST 1 VIEW RAD - Routine (most inpatients and all outpatients) 07/15/2024 4:51 PM EXPLOSIVES OPERATOR BACTERIAL CULTURE, AEROBIC + SUSC Routine 07/15/2024 4:00 PM EXPLOSIVES OPERATOR Empyema Pleural (HCC) ACTINOMYCES CULTURE Routine 07/15/2024 4 :00 PM EXPLOSIVES OPERATOR Empyema Pleural (HCC) MYCOBACTERIAL CULTURE, V Routine 07/15/2024 4:00 PM EXPLOSIVES OPERATOR Empyema Pleural (HCC) FUNGAL SMEAR Routine 07/15/2024 4:00 PM EXPLOSIVES OPERATOR Empyema Pleural (HCC) LEGIONELLA CULTURE Routine 07/15/2024 4: 00 PM EXPLOSIVES OPERATOR Empyema Pleural (HCC) ACID FAST SMEAR FOR MYCOBACTERIUM Routine 07/15/2024 4:00 PM EXPLOSIVES OPERATOR Empyema Pleural (HCC) GRAM STAIN Routine 07/15/2024 4:00 PM EXPLOSIVES OPERATOR Empyema Pleural (HCC) FUNGAL CULTURE, ROUTINE Routine 07/15/2024 4:00 PM EXPLOSIVES OPERATOR Empyema Pleural (HCC) BACTERIAL CULTURE, ANAEROBIC + SUSC Routine 07/15/2024 4:00 PM EXPLOSIVES OPERATOR Empyema Pleural (HCC) BACTERIAL CULTURE, AEROBIC + SUSC Routine 07/15/2024 2:24 PM EXPLOSIVES OPERATOR Empyema Pleural (HCC) MYCOBACTERIAL CULTURE, V Routine 07/15/2024 2:24 PM EXPLOSIVES OPERATOR Empyema Pleural (HCC) FUNGAL SMEAR Routine 07/15/2024 2:24 PM EXPLOSIVES OPERATOR Empyema Pleural (HCC) ACID FAST SMEAR FOR MYCOBACTERIUM Routine 07/15/2024 2:24 PM EXPLOSIVES OPERATOR Empyema Pleural (HCC) GRAM STAIN Routine 07/15/2024 2:24 PM EXPLOSIVES OPERATOR Empyema Pleural (HCC) FUNGAL CULTURE, ROUTINE Routine 07/15/2024 2:24 PM EXPLOSIVES OPERATOR Empyema Pleural (HCC) THORACOSCOPY - DECORTICATION 07/15/2024 12:32 PM EXPLOSIVES OPERATOR Empyema Pleural (HCC) TYPE AND SCREEN STAT 07/15/2024 7:50 AM EXPLOSIVES OPERATOR MRSA/STAPHYLOCOCCUS AUREUS, NASAL, BY PCR Routine 07/14/2024 10:39 AM EXPLOSIVES OPERATOR BASIC METABOLIC PANEL, S/P Routine 07/14/2024 4:09 AM EXPLOSIVES OPERATOR DX CHEST PORTABLE 1 VIEW RAD - Routine (most inpatients and all outpatients) 07/13/2024 9:07 PM EXPLOSIVES OPERATOR CBC WITHOUT DIFFERENTIAL, B Routine 07/13/2024 8:14 PM EXPLOSIVES OPERATOR documented in this encounter Results * DX Chest AP or PA and Lateral 2 Views (07/19/2024 1:04 PM EXPLOSIVES OPERATOR) Anatomical Region Laterality Modality Chest, Thoracic RST LOS, Tho racic ARZ LOS, Thoracic FLA LOS N/A Digital Radiography Impressions 07/19/2024 1:55 PM EXPLOSIVES OPERATOR Since earlier today, removal of the left chest tube. Remainder not significantly changed. Trace left apical pneumothorax. Right PICC tip at the SVC/RA junction. No pleural effusions. Enlarged cardiac silhouette. Scattered subsegmental atelectasis. Narrative 07/19/2024 1:55 PM EXPLOSIVES OPERATOR EXAM: DX CHEST AP OR PA AND [...] and Lateral 2 Views (07/19/2024 9:10 AM EXPLOSIVES OPERATOR) Anatomical Region Laterality Modality Chest, Thoracic RST LOS, Tho racic ARZ LOS, Thoracic FLA LOS N/A Digital Radiography Impressions 07/19/2024 10:12 AM EXPLOSIVES OPERATOR Since 07/18/2024, right arm PICC has been inserted with tip at the SVC RA junction. One of the left chest tubes has been removed. Remainder unchanged. Trace left apical pneumothorax. No pleural effusions. Enlarged cardiac silhouette. Scattered subsegmental atelectasis. Left chest tube. Narrative 07/19/2024 10:12 AM EXPLOSIVES OPERATOR EXAM: DX CHEST AP OR PA AND [...] * Basic Metabolic Panel (07/19/2024 6:02 AM EXPLOSIVES OPERATOR) Potassium, S 3.6 3.6 - 5.2 mmol/L 07/19/2024 6:59 AM EXPLOSIVES OPERATOR DTL Sodium, S 140 135 - 145 mmol/L 07/19/2024 6:59 AM EXPLOSIVES OPERATOR DTL Chloride, S 103 98 - 107 mmol/L 07/19/2024 6:59 AM EXPLOSIVES OPERATOR DTL Bicarbonate, S 28 22 - 29 mmol/L 07/19/2024 6:59 AM EXPLOSIVES OPERATOR DTL Anion Gap 9 7 - 15 07/19/2024 6:59 AM EXPLOSIVES OPERATOR DTL BUN (Blood Urea Nitrogen), S 11 6 - 21 mg/dL 07/19/2024 6:59 AM EXPLOSIVES OPERATOR DTL Creatinine 0.82 0.59 - 1.04 mg/dL 07/19/2024 6:59 AM EXPLOSIVES OPERATOR DTL Estimated GFR (eGFR) >90 >=60 mL/min/BSA 07/19/2024 6:59 AM EXPLOSIVES OPERATOR DTL Comment: Estimated GFR calculated using the 2020 CKD_EPI creatinine equation. Calcium, Total, S 8.6 8.6 - 10.0 mg/dL 07/19/2024 6:59 AM EXPLOSIVES OPERATOR DTL Glucose, S 90 70 - 140 mg/dL 07/19/2024 6:59 AM EXPLOSIVES OPERATOR DTL Blood (Blood, Venous) 07/19/2024 6:02 AM EXPLOSIVES OPERATOR 07/19/2024 6:42 AM EXPLOSIVES OPERATOR Lopez Garvey M.D. LAB BLOOD ADD-ON Final Resul t Performing Organization Address [facility] Co de Phone Number [facility] [address] [place], [place] [id number] [place] [address] DTL [facility] 200 [place] [address] * (ABNORMAL) CBC without Differential (07/19/2024 6:02 AM EXPLOSIVES OPERATOR) [facility] Hemoglobin 7.6(L) 11.6 - 15.0 g/dL 07/19/2024 6:38 AM EXPLOSIVES OPERATOR DTL Hematocrit 24.1(L) 35.5 - 44.9 % 07/19/2024 6:38 AM EXPLOSIVES OPERATOR DTL Erythrocytes 2.67(L) 3.92 - 5.13 x10(12)/L 07/19/2024 6:38 AM EXPLOSIVES OPERATOR DTL MCV 90.3 78.2 - 97.9 fL 07/19/2024 6:38 AM EXPLOSIVES OPERATOR DTL RBC Distrib Width 15.6 12.2 - 16.1 % 07/19/2024 6:38 AM EXPLOSIVES OPERATOR DTL Platelet Count 478(H) 157 - 371 x10(9)/L 07/19/2024 6:38 AM EXPLOSIVES OPERATOR DTL Leukocytes 9.8(H) 3.4 - 9.6 x10(9)/L 07/19/2024 6:38 AM EXPLOSIVES OPERATOR DTL Blood (Blood, Venous) 07/19/2024 6:02 AM EXPLOSIVES OPERATOR 07/19/2024 6:26 AM EXPLOSIVES OPERATOR us Lopez Garvey M.D. LAB BLOOD ADD-ON Final Resul t Performing Organization Address City/[facility]/ZIP Co de Phone Number [facility] [address] [place], [place] [phone] [place] [address] DTL [facility] 200 [place] [address] * Place peripherally inserted central catheter (PICC) (07/18/2024 8:43 PM EXPLOSIVES OPERATOR) Narrative [facility] - 07/18/2024 8:43 PM EXPLOSIVES OPERATOR Rayo Finch R.N. 07/18/2024 9:[address] [...] with ultrasound and measured to ensure appropriate [id number]-toll ratio of 45% or less: Right Basilic [...] to release the adhesive from the skin. [email or web address] Eveline Mariscal P.A.-C. PROCEDURE/MINOR SURGICAL ORDERABLES Final Result [facility] NA * DX Chest AP or PA and Lateral 2 Views (07/18/2024 10:15 AM EXPLOSIVES OPERATOR) Anatomical Region Laterality Modality Chest, Thoracic RST LOS, Tho racic ARZ LOS, Thoracic FLA LOS N/A Digital Radiography Impressions 07/18/2024 10:22 AM EXPLOSIVES OPERATOR Compared with the 07/15/2024 chest radiograph. Decreased tiny left pneumothorax. Slightly improved aeration with decreased lower lung predominant presumably atelectases. Shallow inspiration with accentuation of the cardiovascular structures. Narrative 07/18/2024 10:22 AM EXPLOSIVES OPERATOR EXAM: DX CHEST AP OR PA AND [...] and Ab Screen, Plasma (07/17/2024 5:05 PM EXPLOSIVES OPERATOR) HIV-1/-2 Ag and Ab Screen, P Negative Negative 07/17/2024 8:57 PM EXPLOSIVES OPERATOR [facility] Comment: Negative result does not rule out HIV infection. If exposure to HIV infection occurred <14 days ago, contact the laboratory to request addition of HIV-1/HIV-2 RNA detection, Plasma (HIP12). Blood (Blood, Venous) 07/17/2024 5:05 PM EXPLOSIVES OPERATOR 07/17/2024 7:55 PM EXPLOSIVES OPERATOR Cherelle Pennington APRN.N .P., M.S. LAB MICROBIOLOGY - BLOOD ORDERABLES Final Result [facility] [address] [place] [address] [place] [address] * (ABNORMAL) Vancomycin, Trough (07/16/2024 10:31 AM EXPLOSIVES OPERATOR) Pathologist [facility] Vancomycin, Trough, S 8.9(L) 10.0 - 20.0 mcg/mL 07/16/2024 12:10 PM EXPLOSIVES OPERATOR DTL Blood (Blood, Venous) 07/16/2024 10:31 AM EXPLOSIVES OPERATOR 07/16/2024 10:52 AM EXPLOSIVES OPERATOR us Patrick Mtz M.D., Ph.D. LAB BLOOD NON ADD-ON Fi nal Result [facility] [address] [place] [address], [place] [facility] [address] [place] [address] * DX Chest 1 View (07/15/2024 4:51 PM EXPLOSIVES OPERATOR) Anatomical Region Laterality Modality Chest, Thoracic RST LOS, Tho racic ARZ LOS, Thoracic FLA LOS N/A Digital Radiography Impressions 07/15/2024 4:59 PM EXPLOSIVES OPERATOR Negative for postoperative purposes. Left thoracotomy with 2 left chest tubes. Small left-sided pneumothorax. New left perihilar consolidation/atelectasis since 07/13/2024. Increased bibasilar consolidation/atelectasis. Very low lung volumes accentuate heart size and bronchovascular markings. Narrative 07/15/2024 4:59 PM EXPLOSIVES OPERATOR EXAM: DX CHEST 1 VIEW Procedure Note [...] Culture, Aerobic + Susceptibility (07/15/2024 4:00 PM EXPLOSIVES OPERATOR) Bacterial Culture, Aerobic + Susc No growth after 5 days of incubation. 07/20/2024 7:42 AM EXPLOSIVES OPERATOR DTL Tissue (Pleura, Left) 07/15/2024 4:00 PM EXPLOSIVES OPERATOR Patrick Mtz M.D., Ph.D. LAB MICROBIOLOGY - GENE RAL ORDERABLES Final Result [facility] [address] [place] [address], [place] [facility] [address] [place] [address] * Fungal Smear (07/15/2024 4:00 PM EXPLOSIVES OPERATOR) Fungal Smear Negative. 07/16/2024 8:52 AM EXPLOSIVES OPERATOR DTL Tissue (Pleura, Left) 07/15/2024 4:00 PM EXPLOSIVES OPERATOR us Patrick Mtz M.D., Ph.D. LAB MICROBIOLOGY - GENE RAL ORDERABLES Final Result Performing Organization Address City/[facility]/ZIP Co de Phone Number [facility] [address] [place] [address], [facility] [address] [place] [address] * Legionella Culture (07/15/2024 4:00 PM EXPLOSIVES OPERATOR) Legionella Culture No growth of Legionella species after 7 days of incubation 07/22/2024 8:16 AM EXPLOSIVES OPERATOR DTL Tissue (Pleura, Left) 07/15/2024 4:00 PM EXPLOSIVES OPERATOR us Patrick Mtz M.D., Ph.D. LAB MICROBIOLOGY - GENE RAL ORDERABLES Final Result Performing Organization Address [facility] Co de Phone Number [facility] [address] [place] [address], [facility] [address] [place] [address] * Acid Fast Smear for Mycobacterium (07/15/2024 4:00 PM EXPLOSIVES OPERATOR) Acid Fast Smear For Mycobacterium Negative. 07/15/2024 10:18 PM EXPLOSIVES OPERATOR DTL Tissue (Pleura, Left) 07/15/2024 4:00 PM EXPLOSIVES OPERATOR us Patrick Mtz M.D., Ph.D. LAB MICROBIOLOGY - GENE RAL ORDERABLES Final Result Performing Organization Address City/[facility]/ZIP Co de Phone Number [facility] [address] [place] [address], [facility] [address] [place] [address] * Gram Stain (07/15/2024 4:00 PM EXPLOSIVES OPERATOR) Gram Stain No organisms seen. White blood cells, Many 07/15/2024 10:18 PM EXPLOSIVES OPERATOR DTL Tissue (Pleura, Left) 07/15/2024 4:00 PM EXPLOSIVES OPERATOR us Patrick Mtz M.D., Ph.D. LAB MICROBIOLOGY - GENE RAL ORDERABLES Final Result [facility] [address] [place] [address], [facility] [address] [place] [address] * Bacterial Culture, Aerobic + Susceptibility (07/15/2024 2:24 PM EXPLOSIVES OPERATOR) Bacterial Culture, Aerobic + Susc No growth after 5 days of incubation. 07/20/2024 7:42 AM EXPLOSIVES OPERATOR DTL Fluid (Pleural Fluid, Left) 07/15/2024 2:24 PM EXPLOSIVES OPERATOR Narrative [facility] - 07/20/2024 7:42 AM EXPLOSIVES OPERATOR Bacterial Culture: Placed in Bactec aerobic and Bactec anaerobic bottles us Patrick Mtz M.D., Ph.D. LAB MICROBIOLOGY - GENE RAL ORDERABLES Final Result Performing Organization Address [facility] Co de Phone Number [facility] [address] [place], [place] [phone] [place] [address] [place] [address] * Fungal Smear (07/15/2024 2:24 PM EXPLOSIVES OPERATOR) Fungal Smear Negative. 07/15/2024 7:25 PM EXPLOSIVES OPERATOR DTL Fluid (Pleural Fluid, Left) 07/15/2024 2:24 PM EXPLOSIVES OPERATOR Narrative [facility] - 07/15/2024 7:25 PM EXPLOSIVES OPERATOR Bacterial Culture: Placed in Bactec aerobic and Bactec anaerobic bottles us Patrick Mtz M.D., Ph.D. LAB MICROBIOLOGY - GENE RAL ORDERABLES Final Result Performing Organization Address City/[facility]/ZIP Co de Phone Number [facility] [address] [place] [address] * Acid Fast Smear for Mycobacterium (07/15/2024 2:24 PM EXPLOSIVES OPERATOR) [facility] Acid Fast Smear For Mycobacterium Negative. 07/15/2024 9:24 PM EXPLOSIVES OPERATOR DTL Fluid (Pleural Fluid, Left) 07/15/2024 2:24 PM EXPLOSIVES OPERATOR Narrative [facility] - 07/15/2024 9:24 PM EXPLOSIVES OPERATOR Bacterial Culture: Placed in Bactec aerobic and Bactec anaerobic bottles Patrick Mtz M.D., Ph.D. LAB MICROBIOLOGY - GENE RAL ORDERABLES Final Result Performing Organization Address City/[facility]/ZIP Co de Phone Number [facility] [address] [place] [address] * Gram Stain (07/15/2024 2:24 PM EXPLOSIVES OPERATOR) [facility] Gram Stain No organisms seen. White blood cells, Moderate 07/15/2024 8:02 PM EXPLOSIVES OPERATOR DTL Fluid (Pleural Fluid, Left) 07/15/2024 2:24 PM EXPLOSIVES OPERATOR Narrative [facility] - 07/15/2024 8:02 PM EXPLOSIVES OPERATOR Bacterial Culture: Placed in Bactec aerobic and Bactec anaerobic bottles Patrick Mtz M.D., Ph.D. LAB MICROBIOLOGY - GENE RAL ORDERABLES Final Result [facility] [address] [place], [place] [phone] [place] [address] 200 [place] [address] * Type and Screen (with Reflex Antibody ID) (07/15/2024 7:50 AM EXPLOSIVES OPERATOR) [facility] ABORh AB Pos Not applicable 07/15/2024 8:36 AM EXPLOSIVES OPERATOR STRM Antibody Screen Negative Negative 07/15/2024 8:51 AM EXPLOSIVES OPERATOR STRM Type & Screen Expiration 07/18/2024 23:59 07/15/2024 8:36 AM EXPLOSIVES OPERATOR STRM Testing Location [place] DEFAULT 07/15/2024 8:10 AM EXPLOSIVES OPERATOR STRM Blood (Blood, Venous) 07/15/2024 7:50 AM EXPLOSIVES OPERATOR 07/15/2024 8:10 AM EXPLOSIVES OPERATOR Jamie Kumar M.D. LAB BLOOD BANK TEST ORDERABLES F inal Result Performing Organization Address City/[facility]/ZIP Co de Phone Number [facility] [address] [place] [address], [place] STRM [facility] [address] [place] [address] * Staph aureus / MRSA, Nasal, PCR (07/14/2024 10:39 AM EXPLOSIVES OPERATOR) Staphylococcus aureus, PCR Negative Negative 07/14/2024 12:55 PM EXPLOSIVES OPERATOR DTL MRSA, PCR Negative Negative 07/14/2024 12:55 PM EXPLOSIVES OPERATOR DTL Swab (Nares) 07/14/2024 10:3 9 AM EXPLOSIVES OPERATOR 07/14/2024 11:06 AM EXPLOSIVES OPERATOR Patrick Mtz M.D., Ph.D. LAB MICROBIOLOGY - GENE RAL ORDERABLES Final Result Performing Organization Address [facility] Co de Phone Number [facility] [address] [place] [address], [place] DTL [facility] [address] [place] [address] * (ABNORMAL) Basic Metabolic Panel (07/14/2024 4:09 AM EXPLOSIVES OPERATOR) Potassium, S 3.9 3.6 - 5.2 mmol/L 07/14/2024 5:53 AM EXPLOSIVES OPERATOR DTL Sodium, S 139 135 - 145 mmol/L 07/14/2024 5:53 AM EXPLOSIVES OPERATOR DTL Chloride, S 103 98 - 107 mmol/L 07/14/2024 5:53 AM EXPLOSIVES OPERATOR DTL Bicarbonate, S 22 22 - 29 mmol/L 07/14/2024 5:53 AM EXPLOSIVES OPERATOR DTL Anion Gap 14 7 - 15 07/14/2024 5:53 AM EXPLOSIVES OPERATOR DTL BUN (Blood Urea Nitrogen), S 10 6 - 21 mg/dL 07/14/2024 5:53 AM EXPLOSIVES OPERATOR DTL Creatinine 0.57(L) 0.59 - 1.04 mg/dL 07/14/2024 5:53 AM EXPLOSIVES OPERATOR DTL Estimated GFR (eGFR) >90 >=60 mL/min/BSA 07/14/2024 5:53 AM EXPLOSIVES OPERATOR DTL Comment: Estimated GFR calculated using the 2020 CKD_EPI creatinine equation. Calcium, Total, S 9.1 8.6 - 10.0 mg/dL 07/14/2024 5:53 AM EXPLOSIVES OPERATOR DTL Glucose, S 91 70 - 140 mg/dL 07/14/2024 5:53 AM EXPLOSIVES OPERATOR DTL Blood (Blood, Venous) 07/14/2024 4:09 AM EXPLOSIVES OPERATOR 07/14/2024 5:23 AM EXPLOSIVES OPERATOR Lopez Garvey M.D. LAB BLOOD ADD-ON Final Resul t [facility] [address] [place] [address], RUST DTL [facility] [address] [place] [address] * DX Chest Portable 1 View (07/13/2024 9:07 PM EXPLOSIVES OPERATOR) Anatomical Region Laterality Modality Chest, Thoracic RST LOS, Tho racic ARZ LOS, Thoracic FLA LOS N/A Digital Radiography Impressions 07/14/2024 7:27 AM EXPLOSIVES OPERATOR No significant change since earlier today. Bibasilar atelectasis. Small left loculated pleural effusion. Hazy opacification in the bilateral lungs, left greater than right. No discernible pneumothorax. Mildly enlarged cardiomediastinal silhouette. Narrative 07/14/2024 7:27 AM EXPLOSIVES OPERATOR EXAM: DX CHEST PORTABLE 1 VIEW Procedure [...] (ABNORMAL) CBC without Differential (07/13/2024 8:14 PM EXPLOSIVES OPERATOR) Hemoglobin 9.7(L) 11.6 - 15.0 g/dL 07/13/2024 9:24 PM EXPLOSIVES OPERATOR DTL Hematocrit 30.1(L) 35.5 - 44.9 % 07/13/2024 9:24 PM EXPLOSIVES OPERATOR DTL Erythrocytes 3.32(L) 3.92 - 5.13 x10(12)/L 07/13/2024 9:24 PM EXPLOSIVES OPERATOR DTL MCV 90.7 78.2 - 97.9 fL 07/13/2024 9:24 PM EXPLOSIVES OPERATOR DTL RBC Distrib Width 15.3 12.2 - 16.1 % 07/13/2024 9:24 PM EXPLOSIVES OPERATOR DTL Platelet Count 788(H) 157 - 371 x10(9)/L 07/13/2024 9:24 PM EXPLOSIVES OPERATOR DTL Leukocytes 17.4(H) 3.4 - 9.6 x10(9)/L 07/13/2024 9:24 PM EXPLOSIVES OPERATOR DTL Blood (Blood, Venous) 07/13/2024 8:14 PM EXPLOSIVES OPERATOR 07/13/2024 9:16 PM EXPLOSIVES OPERATOR Lopez Garvey M.D. LAB BLOOD ADD-ON Final Resul t [facility] [address] [place] [address], RUST DTL [facility] [address] [place] [address] documented in this encounter Visit Diagnoses Diagnosis [...] 07/13/24 at 2100 Given 07/20/2024 8:40 AM EXPLOSIVES OPERATOR 1,000 mg Given 07/20/2024 2:56 AM EXPLOSIVES OPERATOR 1,000 mg Given 07/19/2024 8:36 PM EXPLOSIVES OPERATOR 1,000 mg bisacodyL suppository 10 mg (Dulcolax) 10 mg, rectal, Every 12 hours PRN, constipation, Starting on 07/15/24 at 1849, If no bowel movement within 2 hours following magnesium hydroxide, do not give if patient has diarrhea. BUPivacaine 0.25 % (2.5 mg/mL) injection (Marcaine) As needed, Starting on 07/15/24 at 1615, Intra-Op Given 07/15/2024 4:15 PM EXPLOSIVES OPERATOR [address] buPROPion XL 24 hr tablet 150 mg (Wellbutrin XL) 150 mg, oral, Daily, First dose on 07/14/24 at 0900, Swallow whole. Do NOT crush, chew, or split tablet. Given 07/20/2024 8:42 AM EXPLOSIVES OPERATOR 150 mg Given 07/19/2024 8:39 AM EXPLOSIVES OPERATOR 150 mg Given 07/18/2024 7:34 AM EXPLOSIVES OPERATOR 150 mg buPROPion XL 24 hr tablet 300 mg (Wellbutrin XL) 300 mg, oral, Daily, First dose on 07/14/24 at 0900, Swallow whole. Do NOT crush, chew, or split tablet. Given 07/20/2024 8:41 AM EXPLOSIVES OPERATOR 300 mg Given 07/19/2024 8:41 AM EXPLOSIVES OPERATOR 300 mg Given 07/18/2024 7:36 AM EXPLOSIVES OPERATOR 300 mg calcium carbonate chewable tablet 400 [...] 07/14/24 at 2100 Given 07/19/2024 8:37 PM EXPLOSIVES OPERATOR 4.5 mg Given 07/18/2024 9:23 PM EXPLOSIVES OPERATOR 4.5 mg Given 07/17/2024 8:24 PM EXPLOSIVES OPERATOR 4.5 mg cefTRIAXone in dextrose (iso osm) IVPB 2 g (Rocephin) 2 g, intravenous, at 200 mL/hr, Administer over 15 Minutes, Every 24 hours, First dose on Mon07/17/24 at 1600, Drug Monitoring Program: Pharmacist to adjust medication dosing based on indication and drug clearance factors., Indications: empyemaIndications:empyema New Bag 07/20/2024 8:43 AM EXPLOSIVES OPERATOR 2 g 200 mL/hr New Bag 07/19/2024 11:52 AM EXPLOSIVES OPERATOR 2 g 200 mL/hr New Bag 07/18/2024 4:31 PM EXPLOSIVES OPERATOR 2 g 200 mL/hr D5W infusion 1-999 [...] feeding administration instructions. Given 07/20/2024 8:40 AM EXPLOSIVES OPERATOR 60 mg Given 07/19/2024 8:40 AM EXPLOSIVES OPERATOR 60 mg Given 07/18/2024 7:35 AM EXPLOSIVES OPERATOR 60 mg heparin (porcine) injection 5,000 Units 5,000 Units, subcutaneous, Every 8 hours scheduled, First dose on Mon07/16/24 at 0600 Given 07/20/2024 5:49 AM EXPLOSIVES OPERATOR 5,000 Units Right Upper Arm (Back) Given 07/19/2024 8:36 PM EXPLOSIVES OPERATOR 5,000 Units L eft Upper Arm (Back) Given 07/19/2024 1:45 PM EXPLOSIVES OPERATOR 5,000 Units L eft Upper Abdomen heparin (porcine) injection As needed, Starting on Mon07/15/24 at 1320, Intra-Op Given 07/15/2024 1:20 PM EXPLOSIVES OPERATOR 5,000 Units Left Lower Abdomen ibuprofen tablet 400 mg 400 mg, oral, Every 6 hours PRN, moderate pain or score 4-6 of 10, severe pain or score 7-10 of 10, Starting on Mon07/19/24 at 2135, Take with food or milk if GI disturbances occur with use. Given 07/20/2024 5:49 AM EXPLOSIVES OPERATOR 400 mg Given 07/19/2024 9:44 PM EXPLOSIVES OPERATOR 400 mg ipratropium-albuteroL 0.5-2.5 mg/3 mL nebulizer solution 3 mL (DuoNeb) 3 mL, nebulization, 4 times daily PRN, shortness of breath, Starting on 07/13/24 at 1953 lidocaine 5 % 1 patch (Lidoderm) 1 patch, transdermal, Administer over 12 Hours, Daily at bedtime, First dose (after last modification) on 07/14/24 at 2100, Remove after 12 hours. Medication Applied 07/19/2024 8:37 PM EXPLOSIVES OPERATOR 1 patch Left Upper Abdomen Medication Applied 07/18/2024 9:23 PM EXPLOSIVES OPERATOR 1 patch Other Medication Applied 07/17/2024 8:25 PM EXPLOSIVES OPERATOR 1 patch Flank LORazepam tablet 0.5 mg [...] Mon07/17/24 at 1604 Given 07/20/2024 5:49 AM EXPLOSIVES OPERATOR 500 mg Given 07/19/2024 6:05 PM EXPLOSIVES OPERATOR 500 mg Given 07/19/2024 10:43 AM EXPLOSIVES OPERATOR 500 mg metroNIDAZOLE tablet 500 mg (FlagyL) 500 mg, oral, 3 times daily, First dose on Mon07/17/24 at 2100, Drug Monitoring Program: Pharmacist to adjust medication dosing based on indication and drug clearance factors., Indications: empyemaIndications:empyema Given 07/20/2024 8:42 AM EXPLOSIVES OPERATOR 500 mg Given 07/19/2024 8:37 PM EXPLOSIVES OPERATOR 500 mg Given 07/19/2024 1:46 PM EXPLOSIVES OPERATOR 500 mg NaCl 0.9% infusion 1-999 mL/hr, [...] ondansetron before droperidol. Given 07/14/2024 3:56 AM EXPLOSIVES OPERATOR 4 mg oxyCODONE IR tablet 10 mg (Roxicodone) 10 mg, oral, Every 4 hours PRN, severe pain or score 7-10 of 10, for breakthrough pain, Starting on 07/13/24 at 1952, Pain unrelieved by other oral analgesics. Given 07/20/2024 2:55 AM EXPLOSIVES OPERATOR 10 mg Given 07/19/2024 3:03 AM EXPLOSIVES OPERATOR 10 mg Given 07/18/2024 9:07 PM EXPLOSIVES OPERATOR 10 mg oxyCODONE IR tablet 5 mg (Roxicodone) 5 mg, oral, Every 4 hours PRN, moderate pain or score 4-6 of 10, for breakthrough pain, Starting on 07/13/24 at 1952, Pain unrelieved by other oral analgesics. Given 07/20/2024 8:50 AM EXPLOSIVES OPERATOR 5 mg Given 07/19/2024 6:05 PM EXPLOSIVES OPERATOR 5 mg Given 07/19/2024 12:20 PM EXPLOSIVES OPERATOR 5 mg polyethylene glycol powder packet 1 packet (Miralax) 1 packet, oral, Daily PRN, constipation, Starting on 07/13/24 at 1952, Dissolve in 240 mLs (8 ounces) of water prior to giving. Avoid mixing with starch-based thickened liquids. pregabalin capsule 200 mg (Lyrica) 200 mg, oral, 3 times daily, First dose on 07/13/24 at 2100 Given 07/20/2024 8:42 AM EXPLOSIVES OPERATOR 200 mg Given 07/19/2024 8:37 PM EXPLOSIVES OPERATOR 200 mg Given 07/19/2024 1:45 PM EXPLOSIVES OPERATOR 200 mg prochlorperazine injection 5 mg (Compazine) 5 mg, intravenous, Every 6 hours PRN, nausea, vomiting, Starting on 07/13/24 at 1953 sennosides tablet 17.2 mg (Senokot) 17.2 mg, oral, Daily, First dose on 07/14/24 at 0900, Do not give if patient has diarrhea Given 07/19/2024 8:41 AM EXPLOSIVES OPERATOR 17.2 mg Given 07/18/2024 7:35 AM EXPLOSIVES OPERATOR 17.2 mg Given 07/17/2024 8:09 AM EXPLOSIVES OPERATOR 17.2 mg sodium chloride 0.9 % injection [...] mL per lumen. Given 07/20/2024 9:12 AM EXPLOSIVES OPERATOR 10 mL Given 07/19/2024 9:39 AM EXPLOSIVES OPERATOR 10 mL Given 07/18/2024 9:24 PM EXPLOSIVES OPERATOR 10 mL sodium chloride 0.9 % injection 20-60 mL 20-60 mL, intravenous, As needed, line care, Peripherally Inserted Central Catheter Non-Valved, Starting on Gloria 07/18/24 at 2034, Pior to and following blood sampling and post blood transfusion, flush 20 mL per lumen. documented in this encounter Active and Recently Administered Medications Times are shown in EXPLOSIVES OPERATOR. Scheduled Medication Order 07/18/2024 07/19/2024 07/20/2024 acetaminophen [...] with use. 2144 (Given - Provider: Isis Flaheryt R.N.) 0549 (Given - Provider: Isis Flaherty [...] Depression Total Score: 22 025 7:19 PM EXPLOSIVES OPERATOR documented as of this encounter Care Teams Harness Mender Relationship Specialty Start Date End Date Prudence Mena MPAS, P.A.-C. [address] [place] [address] Samantha CONNELLYDESHAUN [id number] PCP - General Internal Medicine 02/08/24 documented as of this encounter
--- OUTSIDE RECORDS SUMMARY | 2024-07-28 22:51 | XMS_ITS | Encounter Summary ---
Author Organization [facility] Address [address] [place] [id number] Care Team Providers Care Turbine Subassembler Name Role Phone Prudence Mena P.A.-C. Primary Care Pro vider Reason for Referral * Outpatient (Routine) - Authorized Specialty Diagnoses / Procedures Referred By Contac t Referred To Contact Diagnoses Empyema Pleural (HCC) Procedures Perform central line rider: Flush port(s), Site care Melinda Isaac APRN, C.N.P. [address] [place] [phone] Phone: tel: fax: [facility] Region Referral ID Status Reason Start Date Expiration Date V isits Requested Visits Authorized [id number] Authorized 07/19/2024 07/19/[address] OPER[address] ENGINEER * Outpatient (Routine) - Closed Specialty Diagnoses / Procedures Referred By Contac t Referred To Contact Diagnoses Empyema Pleural (HCC) Procedures Perform central line rider: Site care, Flush port(s) Melinda Isaac APRN, C.N.P. [address] [place] [phone] Phone: tel: fax: [facility] Region Referral ID Status Reason Start Date Expiration Date Visits Re quested Visits Authorized [id number] Closed 07/19/2024 07/19/[address] OPER[address] ENGINEER * Outpatient (Routine) - Authorized Specialty Diagnoses / Procedures Referred By Contac t Referred To Contact Thoracic Surgery Melinda Isaac APRN, C.N.P. [address] [place] [phone] Phone: tel: fax: [facility] Referral ID Status Reason Start Date Expiration Date V isits Requested Visits Authorized [id number] Authorized 07/19/2024 01/18/[address] OPER[address] ENGINEER * Outpatient (Routine) - Authorized Specialty Diagnoses / Procedures Referred By Contac t Referred To Contact Diagnoses Empyema Pleural (HCC) Procedures DX Chest AP or PA and Lateral 2 Views Melinda Isaac APRN, C.N.P. [address] [place] [phone] Phone: tel: fax: [facility] Referral ID Status Reason Start Date Expiration Date V isits Requested Visits Authorized [id number] Authorized 07/19/2024 07/19/[address]PER[address] ENGINEER Reason for Visit * Auth/Cert (Routine) Specialty Diagnoses / Procedures Referred By Contac t Referred To Contact Diagnoses Empyema Pleural (HCC) Pleuritic chest pain. empyema Procedures INPT Referral ID Status Reason Start Date Expiration Date Visits Re quested Visits Authorized [id number] 1 1 Encounter Details Date Type Department Care Team (Latest Contact Info) Description 07/13/2024 7:53 PM RAILROAD OPERATING ENGINEER - 07/20/2024 10:16 [address] RAILROAD OPERATING ENGINEER Hospital Encounter [facility], Tenth Floor [address] [place] [phone] Patrick Mtz M.D., Ph.D. [address] [place] [phone] Empyema Pleural (HCC) (Primary Dx) Discharge Disposition: Home or Self Care Social History Tobacco Use Types Packs/Day Years Used Date Smoking Tobacco: Former Cigarettes 1.5 0.1 S tarted: 06/21/2024 Passive Smoke Exposure: Past Smokeless Tobacco: Never Alcohol Use Standard Drinks/Week Comments Yes 0 (1 standard drink = 0.6 oz pur e alcohol) socially [facility] Utilities Answer Date Recorded In the past 12 months has e [employer], gas, oil, or water Tindie threatened to shut off services in your [...] How often do you attend judaism or jehovah's witness serv ices? Never 07/27/2022 [...] Answer Date Recorded PHQ-2 Score 6 07/10/2024 [facility] - Occupational Stress Questionnaire Answer [...] Comments Blood Pressure 146/104 07/20/2024 8:45 AM RAILROAD OPERATING ENGINEER Pulse 92 07/20/2024 9:00 AM RAILROAD OPERATING ENGINEER Temperature 36.6 C (97.9 F) 07/20/2024 8:45 AM RAILROAD OPERATING ENGINEER Respiratory Rate 16 07/20/2024 8:45 AM RAILROAD OPERATING ENGINEER Oxygen Saturation 93% 07/20/2024 9:00 AM RAILROAD OPERATING ENGINEER Inhaled Oxygen Concentration - - Weight 99.7 kg (219 lb 12.8 oz) 07/17/2024 7:14 PM RAILROAD OPERATING ENGINEER Height 163 cm (5' 4.17) 07/17/2024 3:00 PM RAILROAD OPERATING ENGINEER Body Mass Index 37.53 07/17/2024 3:00 PM RAILROAD OPERATING ENGINEER documented in this encounter Functional Status * Intimate Partner Violence Question Answer Date of Assessment Author Within the last year, have y ou been humiliated or emotionally abused in other ways by your partner or ex-partner? No 07/15/2024 8:00 PM RAILROAD OPERATING ENGINEER Helena Brady, R.N. Within the last year, have y ou been afraid of your partner or ex-partner? No 07/15/2024 8:00 PM RAILROAD OPERATING ENGINEER Helena Brady, R.N. Within the last year, have y ou been raped or forced to have any kind of sexual activity by your partner or ex-partner? No 07/15/2024 8:00 PM RAILROAD OPERATING ENGINEER Helena Brady, R.N. Within the last year, have y ou been kicked, hit, slapped, or otherwise physically hurt by your partner or ex-partner? No 07/15/2024 8:00 PM RAILROAD OPERATING ENGINEER Helena Brady R.N. documented as of this encounter Discharge Summaries * Shahram Abernathy APRN, C.N.P., M.S. - 07/20/2024 10:16 AM CST DISCHARGE SUMMARY BRIEF OVERVIEW Hospital: [facility] Discharge Provider: Patrick Mtz M.D. Primary Team: [facility] Thoracic Surgery - [place] Primary Care Providers: Prudence Mena MPAS, P.A.-C. (General) [address] [facility] [phone] Primary Care Provider Primary Care Provider Other [...] INDICATED. Patrick Mtz M.D., Ph.D.Catrina Sutton M.D. [facility] ROMB OR DISCHARGE DISPOSITION Home or Self [...] with any questions or issues. Admin Ast: [phone] (M-F 8 AM to 5 PM) Museum Tour Guide: [phone] (Thoracic Surgery Chuck Tender for Nights & Weekend Urgent Issues) Appointments: [phone] INFECTIOUS DISEASES THERAPY RECOMMENDATIONS Antimicrobial plan: Patient [...] of Infectious Diseases OPAT monitoring program at [phone]. Should patient be enrolled in OPAT/COPAT program: [...] 10 Appointments 07/21/2024 9:00 AM CHAIR 01 [facility] 02 INF Infusion Therapy 07/22/2024 9:00 AM CHAIR 05 [facility] 02 INF Infusion Therapy 07/23/2024 9:00 AM CHAIR 05 [facility] 02 INF Infusion Therapy 07/24/2024 9:00 AM CHAIR 03 [facility] XX INF Infusion Therapy 07/25/2024 9:00 AM CHAIR 05 [facility] 02 INF Infusion Therapy 07/26/2024 9:00 AM CHAIR 05 [facility] 02 INF Infusion Therapy 07/27/2024 9:00 AM CHAIR 01 [facility] 02 INF Infusion Therapy 07/28/2024 9:00 AM CHAIR 01 [facility] 02 INF Infusion Therapy 07/29/2024 10:00 AM [...] female who was a direct admission from [facility] on for a left-sided empyema. She [...] discharge services today: greater than [address] OPERATING ENGINEER documented in this encounter Discharge Instructions * Attachments The following attachments cannot be sent through Care Everywhere. * Acute Pain and the Healing Process * Ceftriaxone (By injection) (Russian) * Ibuprofen (By mouth) (Russian) * Methocarbamol (By mouth) (Russian) * Metronidazole (By mouth) (Russian) * Oxycodone, Rapid Release (By mouth) (Russian) * Laxative, Stimulant (By mouth) (Russian) documented in this encounter Medications at Time [...] muscle spasms. 45 tablet 07/20/2024 10:13 AM RAILROAD OPERATING ENGINEER 07/19/2024 metroNIDAZOLE (FlagyL) 500 mg tabletIndication s:Empyema Take 1 tablet (500 mg total) by mouth 3 (three) times a day for 17 days Indications: Empyema. 51 tablet 07/20/2024 10:13 AM RAILROAD OPERATING ENGINEER 07/19/2024 multivitamin capsule Take 1 capsule by [...] for 17 days. [facility] 07/19/2024 5 DME CPAPIndications: Obstructive Sleep Apnea [...] Pain Exception. 28 tablet 07/20/2024 10:13 AM RAILROAD OPERATING ENGINEER 07/19/2024 5 documented as of this encounter [...] Discharge today Patient discussed with Dr. Mtz. ROAD OPERATING ENGINEER * Denny Ann R.RSachi., L.R.T. - 07/20/2024 [...] Denny Ann R.R.T., L.R.T. 07/20/24 7:32 AM RAILROAD OPERATING ENGINEER ROAD OPERATING ENGINEER * Kusum Urena R.RDmitryT., L.R.T. - 07/19/2024 [...] Kusum Urena R.R.T., Christian 07/19/24 1:54 PM RAILROAD OPERATING ENGINEER ROAD OPERATING ENGINEER * Lopez Garvey M.D. - 07/19/2024 12:18 [...] Encourage ambulance Patient discussed with Dr. Mtz. ROAD OPERATING ENGINEER * Arlyn Starr, Max, L.R.T. - 07/18/2024 [...] Arlyn Starr R.R.T., L.R.T. 07/18/24 12:39 PM RAILROAD OPERATING ENGINEER ROAD OPERATING ENGINEER ROAD OPERATING ENGINEER * Summer Anna Ailyn Earl 07/18/2024 12:26 PM CST Clinical Nutrition: Initial Assessment RECOMMENDATIONS REQUIRING MD/PROVIDER ORDER No changes at this time; continue current nutrition orders For questions about patient's nutritional care please contact pager [phone] on weekdays or [phone] on weekends/holidays. NUTRITION ASSESSMENT: Ms. Kumar is [...] from outside of the hospital such as [employer] and [employer]. She currently feels likes [...] patient report. ESTIMATED NEEDS: Total Calorie Needs: 7504-4283 calories/day Method to Estimate Energy Needs: Hale-St Jeor ( ) Weight Used for Equation Calculations: 96 kg Total Protein Needs: 77 - 96 grams/day Method to Estimate Protein Needs (g/kg): 0.8 - 1 gm/kg Weight Used to Calculate Protein Needs (Kg): 96 kg Nutrition Diagnosis: Clinical risk not noted Nutrition Intervention: Medical food supplement Monitoring/Evaluation: Nutrition parameter to monitor: Meals/Supplement Intake, Weight Status ROAD OPERATING ENGINEER * Patrick Mtz M.D., Ph.D. - 07/18/2024 10:56 AM CST I visited face to face with the patient on NT10 this morning. We will obtain an updated chest x-raywith a view towards removing 1 of her chest tubes today. We will follow the recommendations of our Infectious Disease colleagues regarding ongoing antibiotic management. ROAD OPERATING ENGINEER * Magno Fisher, Ph.D. - 07/18/2024 8:59 [...] Encourage ambulance Patient discussed with Dr. Mtz. ROAD OPERATING ENGINEER * Kayleigh Small M.D. - 07/18/2024 8:24 [...] Please page the ICU-ID service pager at [phone] with questions. Thank you for the consultation. Discussed with Dr. Camejo, ID business travel consultant and the primary team. Kayleigh Small [...] of Infectious Diseases OPAT monitoring program at [phone]. Should patient be enrolled in OPAT/COPAT program: [...] Camejo M.D., M.S. at 07/18/2024 1:06 PM RAILROAD OPERATING ENGINEER ROAD OPERATING ENGINEER ROAD OPERATING ENGINEER Associated attestation - Hay Camejo M.D., M.S. - 07/18/2024 1:06 PM RAILROAD OPERATING ENGINEER I saw and evaluated the patient, participating [...] Montrell Garland R.R.T., Christian 07/17/24 1:04 PM RAILROAD OPERATING ENGINEER ROAD OPERATING ENGINEER * Lopez Garvey M.D. - 07/17/2024 9:19 [...] spirometer Discussed with Dr. Smith Garvey MD ROAD OPERATING ENGINEER * Jarocho Belle, R.Ph. - 07/16/2024 1:12 PM CST Pharmacokinetic Consult - Vancomycin Dosing Melinda Kumar is a 39 y.o. female who has received a pharmacy consult for vancomycin therapyfor dose optimization and monitoring. Indication: Respiratory tract infection, healthcare associated Goal trough: 10-15 mcg/mL OBJECTIVE There is no height or weight on file to calculate BMI. [place] body weight: 55.1 kg Adjusted ideal body [...] patient's clinical progress daily. Jarocho Belle, Eleazar.Ph. ROAD OPERATING ENGINEER * Gema Srinivasan R.R.T., MarcellusRSachi. - 07/16/2024 [...] Gema Srinivasan R.R.T., Christian 07/16/24 11:34 AM RAILROAD OPERATING ENGINEER ROAD OPERATING ENGINEER * Lopez Garvey M.D. - 07/16/2024 9:46 AM CST Ms. Kumar is POD 1 from left robotic decortication, 2 chest tubes were left in place Patient is afebrile and hemodynamically stable. She had a POULTRY HATCHERY MAN started overnight for pain control. She otherwise [...] spirometer Discussed with Dr. Smith Garvey MD ROAD OPERATING ENGINEER * Patrick Mtz M.D., Ph.D. - 07/16/2024 [...] drains will remain in place for today. ROAD OPERATING ENGINEER * Lopez Garvey M.D. - 07/15/2024 7:36 AM CST Ms. Kumar is a 39-year-old female who was a direct admission from [facility] on for a left-sided empyema. Patient [...] female who was a direct admission from [facility] on for a left-sided empyema. She will be proceeding to the operating room tomorrow for left VATS decortication. Plan: -continue IV antibiotics -OR today Discussed with Dr. Smith Garvey MD ROAD OPERATING ENGINEER * Lopez Garvey M.D. - 07/14/2024 9:00 AM CST Ms. Kumar is a 39-year-old female who was a direct admission from [facility] on for a left-sided empyema. Patient [...] female who was a direct admission from [facility] on for a left-sided empyema. She will be proceeding to the operating room tomorrow for left VATS decortication. Plan: -continue IV antibiotics -regular diet today, NPO at midnight -continue pain control -patient has listed, will be consented and site marked for operating room tomorrow Discussed with Dr. Smith Garvey MD ROAD OPERATING ENGINEER * Maxim Freed Pharm.DDmitry, R.Ph., BCPS - 07/14/2024 8:27 AM CST Images from the original note were not included. Pharmacist Progress Note Reason for admission: direct admission from [facility] on July 13 for a left-sided [...] to follow for medicationuse optimization Ken Freed PharmDmityrD., R.Ph., BCPS Admission Medication History Note Adherence [...] Order Patient stated she needs to pick pulling machine operator DULoxetine (CYMBALTA) [address] capsule [...] information available at the time of documentation. ROAD OPERATING ENGINEER documented in this encounter H&P Notes * Lopez Garvey M.D. - 07/13/2024 7:38 PM CST History and Physical SUBJECTIVE Chief Complaint:pleuritic chest pain HPI: Melinda Kumar is a 39 y.o. female with a past medical history significant for fibromyalgia, chronic back pain, asthma, sleep apnea, hypertension, depression who was directly admitted for left empyema. Patient presented at the end of June to [facility] initially with pneumonia, following influenza A [...] to worsening symptoms she presented again to [facility] where she underwent a CT scan [...] AGENT; Surgeon: Yobany Soares M.D., Ph.D.; Location: [facility] OR HYDRODISTENSION BLADDER WITH CYSTOSCOPY N/A 06/30/2023 Procedure: HYDRODISTENSION BLADDER WITH CYSTOSCOPY; Surgeon: Yobany Soares M.D., Ph.D.; Location: [facility] OR INJECTION BOTOX Bilateral 06/30/2023 Procedure: INJECTION BOTOX PELVIC FLOOR; Surgeon: Yobany Soares M.D., Ph.D.; Location: [facility] OR OTHER SURGICAL HISTORY 10/2017 Hysterectomy that [...] Order Patient stated she needs to pick pulling machine operator), Disp: 1 each, Rfl: 0 DULoxetine [...] room Discussed with Dr. Smith Garvey MD ROAD OPERATING ENGINEER documented in this encounter Procedure Notes * [...] with ultrasound and measured to ensure appropriate nwrzdleo-mg-bsjn ratio of 45% or less: Right Basilic [...] to release the adhesive from the skin. [email or web address]/[email or web address] ROAD OPERATING ENGINEER documented in this encounter Consult Notes * Karen Wilkerson M.S.W., Arminda. - 07/18/2024 12:33 PM CSTAssociated Order(s): IP CONSULT TO CARE MANAGEMENT Psychosocial Assessment SUBJECTIVE ASSESSMENT INFORMATION Referral Data Referral Source: HAND HEEL SEAT FITTER/PA Referral Reason: Psychosocial assessment, Discharge Planning Previous Assessment: No Hair Worker Services Used: No Primary Language: Russian Hair Worker Services Used: No Sexuality/Pronoun: Straight / Person(s) [...] PRESENT ILLNESS Patient is currently hospitalized at [facility] on [place] [address]. Patient shares that she cameto the hospital for Pneumonia. SOCIAL HISTORY Family / Household: Patient reports living in a multi level town home with her 4 sons ages 17, 17, 15 and 10. Support System: 4 children and family in [place] Spirituality/Presybeterian/Cultural Factors: None History: No Employment: disabled Psychosocial [...] Communication: Can write, Talks, Understands speaking, Understands Russian Shopping: Needs assistance Medication Management: Independent Housekeeping: [...] current substance use. ASSESSMENT / PLAN DISCUSSION Sample Examiner met with patient in hospital room to provide a supportive visit, complete a psychosocial, and assist with discharge needs. Introduced self and reviewed role of inpatient Social Work, including legal responsibility as a mandated city bailiff. Patient expressed understanding of the purpose of [...] our ownership and financial relationship of the [facility] [place] beds, home health, and hospice agencies. Reviewed [facility] medicaid insurance coverage and provided in-network options. Patient anticipates discharging home once medically ready without patient infusions at [facility]. Patient reports no further questions currently. Encouraged patient to contact Sample Examiner should additional needs arise. long term care social worker returned to inform patient that [facility] is not open on weekends and that she willneed to go to [place]. Patient was agreeable to this. Patient's mother was in the room and shared that she had a question for group social worker. Patient's mother asked about help with cleaning around the home. long term care social worker explained the [place]choice assessment through the [...] PLAN Outpatient infusions will be obtained through: [facility] Monday- Monday and [facility] on Weekends. Phone for scheduling- [phone] Phone for [phone] NURSING: - Call to arrange for the patient???s first visit Prior to 3 pm Monday if Discharging over the weekend. - Adjust the dosing schedule to accommodate [facility] schedule. - Complete documentation in the Discharge Navigator including Nursing Report Info and Facility/NextLevel of Care Info PRIMARY SERVICE: - Complete infusion therapy and lab orders in [facility] as needed. - Identify the continuing care provider, who will follow the patient while receiving outpatient infusion at [facility]. Social Work : -Will continue to follow. Anticipated barriers to the transition of care/plan: None identified at this time. Destiny Gonzales, HamletS.W. 07/18/2024 [address] OPER[address] ENGINEER ROAD OPERATING ENGINEER * Kayleigh Small M.D. - 07/17/2024 10:59 [...] empyema. Interval history includes initial presentation to [facility] ED 06/26/2024 and was prescribed azithromycin and prednisone for walking pneumonia. She was admitted to [facility] 06/30/2024-07/04/2024 with sepsis secondary to left lower lobe pneumonia and was treated with IV antibiotics and IV steroid. She was discharged on 07/04/2024 on oral antibiotics (doxycycline for 5 days. After d ischarge patient continued continued to have shortness of breath and left pleuritic chest pain. Dueto worsening in symptoms she presented again to [facility] where she underwent CT chest which [...] - Date/Time Bacterial Culture, Anaerobic + Susceptibility [[id number]] Collected: 07/15/24 1600 Lab Status: Preliminary result Specimen: Tissue from Pleura, Left Updated: 07/17/24 0739 Bacterial Culture, Anaerobic + Susc No growth to date. Fungal Culture, Routine [[id number]] Collected: 07/15/24 1600 Lab Status: In process Specimen: Tissue from Pleura, Left Updated: 07/15/24 1720 Gram Stain [[id number]] Collected: 07/15/24 1600 Lab Status: Final result Specimen: Tissue from Pleura, Left Updated: 07/15/24 2218 Gram Stain No organisms seen. White blood cells, Many Acid Fast Smear for Mycobacterium [[id number]] Collected: 07/15/24 1600 Lab Status: Final result Specimen: Tissue from Pleura, Left Updated: 07/15/24 2218 Acid Fast Smear For Mycobacterium Negative. Legionella Culture [[id number]] Collected: 07/15/24 1600 Lab Status: Preliminary result Specimen: Tissue from Pleura, Left Updated: 07/17/24 0754 Legionella Culture No growth to date. Fungal Smear [[id number]] Collected: 07/15/24 1600 Lab Status: Final result Specimen: Tissue from Pleura, Left Updated: 07/16/24 0852 Fungal Smear Negative. Mycobacterial Culture [[id number]] Collected: 07/15/24 1600 Lab Status: In process Specimen: Tissue from Pleura, Left Updated: 07/15/24 1720 Actinomyces Culture [[id number]] Collected: 07/15/24 1600 Lab Status: Preliminary result Specimen: Tissue from Pleura, Left Updated: 07/17/24 0739 Actinomyces Culture No growth to date. Bacterial Culture, Aerobic + Susceptibility [[id number]] Collected: 07/15/24 1600 Lab Status: Preliminary result Specimen: Tissue from Pleura, Left Updated: 07/17/24 0847 Bacterial Culture, Aerobic + Susc No growth to date. Fungal Culture, Routine [[id number]] Collected: 07/15/241423 Lab Status: In process Specimen: Pleural Fluid, Left Updated: 07/15/24 1519 Narrative: Bacterial Culture: Placed in Bactec aerobic and Bactec anaerobic bottles Gram Stain [[id number]] Collected: 07/15/241423 Lab Status: Final result Specimen: Pleural Fluid, Left Updated: 07/15/24 2002 Gram Stain No organisms seen. White blood cells, Moderate Narrative: Bacterial Culture: Placed in Bactec aerobic and Bactec anaerobic bottles Acid Fast Smear for Mycobacterium [[id number]] Collected: 07/15/241423 Lab Status: Final result Specimen: Pleural Fluid, Left Updated: 07/15/24 2125 Acid Fast Smear For Mycobacterium Negative. Narrative: Bacterial Culture: Placed in Bactec aerobic and Bactec anaerobic bottles Fungal Smear [[id number]] Collected: 07/15/241423 Lab Status: Final result Specimen: Pleural Fluid, Left Updated: 07/15/24 1925 Fungal Smear Negative. Narrative: Bacterial Culture: Placed in Bactec aerobic and Bactec anaerobic bottles Mycobacterial Culture [[id number]] Collected: 07/15/24 142 Lab Status: In process Specimen: Pleural Fluid, Left Updated: 07/15/24 1519 Narrative: Bacterial Culture: Placed in Bactec aerobic and Bactec anaerobic bottles Bacterial Culture, Aerobic + Susceptibility [[id number]] Collected: 07/15/24 142 Lab Status: Preliminary result Specimen: Pleural Fluid, Left Updated: 07/17/24 0847 Bacterial Culture, Aerobic + Susc No growth to date. Narrative: Bacterial Culture: Placed in Bactec aerobic and Bactec anaerobic bottles Staph aureus / MRSA, Nasal, PCR [[id number]] Collected: 07/14/24 1039 Lab Status: Final result [...] Please page the ICU-ID service pager at [phone] with questions. Thank you for the consultation. Discussed with Dr. Camejo, ID business travel consultant and the primary team. Kayleigh Small M.D. Infectious Diseases Fellow Cosigned by Hay Camejo M.D., M.S. at 07/17/2024 2:43 PM RAILROAD OPERATING ENGINEER ROAD OPERATING ENGINEER ROAD OPERATING ENGINEER Associated attestation - Hay Camejo M.D., M.S. - 07/17/2024 2:43 PM RAILROAD OPERATING ENGINEER I saw and evaluated the patient, participating [...] If some point, she was admitted to [facility] at the end of June for [...] study was completed and pt qualified for [facility]. Isis Flaherty R.N. Problem: PAIN - ADULT [...] Goal: Maintain a safe environment Outcome: Progressing ROAD OPERATING ENGINEER * Malcolm Cordon R.N. - 07/19/2024 4:47 [...] DC home tomorrow (07/20). Malcolm Cordon R.N. ROAD OPERATING ENGINEER * Shawna Little R.N., C.M.SSilvia - 07/17/2024 10:01 PM CST Shift Goals: Clinical Goals for the Shift: Pt will state pain is tolerable after discontinuing POULTRY HATCHERY MAN. Identify possible barriers to meeting goals/advancing plan [...] pain 6-9/10 during shift. Ice pack utilized. POULTRY HATCHERY MAN DC'd. Scheduled Tylenol given. PRN oxycodone, Robaxin [...] SATS above 90% Encouraged incentive spirometer use. ROAD OPERATING ENGINEER * Bhumi Chawla R.N. - 07/17/2024 5:43 AM CST Shift Goals: Clinical Goals for the Shift: Patient will get adequate rest overnight and report good pain control Identify possible barriers to meeting goals/advancing plan of care: None End of Shift Summary: Sasha slept well overnight in between cares. Pain controlled with POULTRY HATCHERY MAN, PRN Robaxin and scheduled tylenol. She ambulated [...] Achieves optimal ventilation and oxygenation Outcome: Progressing ROAD OPERATING ENGINEER * Diane Blevins R.N. - 07/15/2024 1:15 PM CST Patient came to OR with personal belongings including 4 earrings and 1 ring/piercing. Sent with patient on chart. R. Blakstad, RN ROAD OPERATING ENGINEER * Candi Leonard R.N. - 07/15/2024 6:24 [...] Absence of infection during hospitalization Outcome: Progressing ROAD OPERATING ENGINEER * Helena Brady R.N. - 07/14/2024 6:41 [...] Goal: Patient discharge needs identified Outcome: Progressing ROAD OPERATING ENGINEER documented in this encounter OR Notes * Catrina Turcios M.D. - 07/15/2024 2:11 PM CST Pre-op Diagnosis Empyema Pleural (HCC) Post-op Diagnosis Empyema Pleural (HCC) Industrial Maintenance Repairer Helper A clinical nursing assistant actively participated and was necessary for [...] Mtz M.D., Ph.D. at 07/17/2024 8:18 AM RAILROAD OPERATING ENGINEER ROAD OPERATING ENGINEER ROAD OPERATING ENGINEER * Brief Op Note - Catrina Sutton M.D. - 07/15/2024 2:11 PM RAILROAD OPERATING ENGINEER Pre-op Diagnosis Empyema Pleural (HCC) Post-op Diagnosis Empyema Pleural (HCC) Findings Multiple adhesions and pockets of pus involving the pleura, lower lobe and diaphragm Complications None Catrina Cole M.D. ROAD OPERATING ENGINEER documented in this encounter Miscellaneous Notes * Hospital Course - Melinda Isaac APRN, C.N.P. - 07/16/2024 8:03 AM RAILROAD OPERATING ENGINEER Ms. Kumar is a 39-year-old female who was a direct admission from [facility] on for a left-sided empyema. She [...] a general diet, and voiding without difficulty. ROAD OPERATING ENGINEER ROAD OPERATING ENGINEER ROAD OPERATING ENGINEER ROAD OPERATING ENGINEER ROAD OPERATING ENGINEER ROAD OPERATING ENGINEER ROAD OPERATING ENGINEER ROAD OPERATING ENGINEER ROAD OPERATING ENGINEER ROAD OPERATING ENGINEER documented in this encounter Plan of Treatment Upcoming Encounters Date Type Department Care Team (Late st Contact Info) Description 07/29/2024 10:00 AM RAILROAD OPERATING ENGINEER Infusion Department of Infusion Therapy in [address] [phone] Melinda Isaac APRN, C.N.P. [address] [place] [phone] 07/29/2024 2:20 PM RAILROAD OPERATING ENGINEER Office Visit Department of Community Internal Medicine in [address] [phone] Prudence Mena MPAS, P.A.-C. [address] [place] [phone] 07/30/2024 9:00 AM RAILROAD OPERATING ENGINEER Infusion Department of Infusion Therapy in [address] [phone] Melinda Isaac APRN, C.N.P. [address] [place] [phone] 07/31/2024 8:00 AM RAILROAD OPERATING ENGINEER Infusion Department of Infusion Therapy in [address] [phone] Melinda Isaac APRN, C.N.P. [address] [place] [phone] 08/01/2024 7:00 AM RAILROAD OPERATING ENGINEER Infusion Department of Infusion Therapy in [address] [phone] Melinda Isaac APRN, C.N.P. [address] [place] [phone] 08/02/2024 9:00 AM RAILROAD OPERATING ENGINEER Infusion Department of Infusion Therapy in [address] [phone] Melinda Isaac APRN, C.N.P. [address] [place] [phone] 08/02/2024 12:30 PM RAILROAD OPERATING ENGINEER Clinical Communication Virtual Review in [place], [place] 200 [place] [phone] 08/03/2024 9:00 AM RAILROAD OPERATING ENGINEER Infusion Department of Infusion Therapy in [address] [phone] Melinda Isaac APRN, C.N.P. [address] [place] [phone] 08/04/2024 9:00 AM RAILROAD OPERATING ENGINEER Infusion Department of Infusion Therapy in [address] [phone] Melinda Isaac APRN, C.N.P. [address] [place] [phone] 08/05/2024 8:45 AM RAILROAD OPERATING ENGINEER Appointment Department of Radiology, [facility], in [place], [place] [address] [place] [phone] Kayleigh Small M.D. [address] [place] [phone] 08/05/2024 9:00 AM RAILROAD OPERATING ENGINEER Infusion Department of Infusion Therapy in [address] [phone] Melinda Isaac APRN, C.N.P. [address] [place] [phone] 08/05/2024 11:00 AM RAILROAD OPERATING ENGINEER Office Visit Section of Infectious Diseases in [place], [place] [address] [place] [phone] Kayleigh Small M.D. [address] [place] [phone] 08/06/2024 9:00 AM RAILROAD OPERATING ENGINEER Infusion Department of Infusion Therapy in [address] [phone] Melinda Isaac APRN, C.N.P. [address] [place] [phone] 08/07/2024 9:00 AM RAILROAD OPERATING ENGINEER Infusion Department of Infusion Therapy in [address] [phone] Melinda Isaac APRN, C.N.P. [address] [place] [phone] 08/08/2024 9:00 AM RAILROAD OPERATING ENGINEER Infusion Department of Infusion Therapy in [address] [phone] Melinda Isaac APRN, C.N.P. [address] [place] [phone] 08/09/2024 9:00 AM RAILROAD OPERATING ENGINEER Infusion Department of Infusion Therapy in [address] [phone] Melinda Isaac APRN, C.N.P. [address] [place] [phone] 08/10/2024 9:00 AM RAILROAD OPERATING ENGINEER Infusion Department of Infusion Therapy in [address] [phone] Melinda Isaac APRN, C.N.P. [address] [place] [phone] 08/11/2024 9:00 AM RAILROAD OPERATING ENGINEER Infusion Department of Infusion Therapy in [address] [phone] Melinda Isaac APRN, C.N.P. [address] [place] [phone] 08/12/2024 9:00 AM RAILROAD OPERATING ENGINEER Infusion Department of Infusion Therapy in [address] [phone] Melinda Isaac APRN, C.N.P. [address] [place] [phone] 08/13/2024 8:30 AM RAILROAD OPERATING ENGINEER Infusion Department of Infusion Therapy in [address] [phone] Melinda Isaac APRN, C.N.P. [address] [place] [phone] 08/14/2024 9:00 AM RAILROAD OPERATING ENGINEER Infusion Department of Infusion Therapy in [address] [phone] Melinda Isaac APRN, C.N.P. [address] [place] [phone] 08/15/2024 9:00 AM RAILROAD OPERATING ENGINEER Infusion Department of Infusion Therapy in [address] [phone] Melinda Isaac APRN, C.N.P. [address] [place] [phone] 08/16/2024 9:00 AM RAILROAD OPERATING ENGINEER Infusion Department of Infusion Therapy in [address] [phone] Melinda Isaac APRN, C.N.P. [address] [place] [phone] 08/17/2024 9:00 AM RAILROAD OPERATING ENGINEER Infusion Department of Infusion Therapy in [address] [phone] Melinda Isaac APRN, C.N.P. [address] [place] [phone] 08/18/2024 9:00 AM RAILROAD OPERATING ENGINEER Infusion Department of Infusion Therapy in [address] [phone] Melinda Isaac APRN, C.N.P. [address] [place] [phone] Pending Results Name Type Priority Associated Diagnoses Date /Time Fungal Culture, Routine Microbiology Routine Empyema Pleural ([facility]) 07/15/2024 2:24 PM RAILROAD OPERATING ENGINEER Mycobacterial Culture Microbiology Routine Empyema Pleural ([facility]) 07/15/2024 2:24 PM RAILROAD OPERATING ENGINEER Bacterial Culture, Anaerobic + Susceptibility Microbiology Routine Empyema Pleural ([facility]) 07/15/2024 4:00 PM RAILROAD OPERATING ENGINEER Fungal Culture, Routine Microbiology Routine Empyema Pleural ([facility]) 07/15/2024 4:00 PM RAILROAD OPERATING ENGINEER Mycobacterial Culture Microbiology Routine Empyema Pleural ([facility]) 07/15/2024 4:00 PM RAILROAD OPERATING ENGINEER Actinomyces Culture Microbiology Routine Empyema Pleural ([facility]) 07/15/2024 4:00 PM RAILROAD OPERATING ENGINEER Scheduled Orders Name Type Priority Associated Diagnoses Order Schedule DX Chest AP or PA and Lateral 2 Views Imaging RAD - Routine (most inpatients and all outpatients) Empyema Pleural (HCC) Expected: 08/30/2024 (Approximate), Expires: 07/19/2027 Perform central line rider: Site care, Flush port(s) Procedures Routine Empyema Pleural (HCC) Expected: 07/22/2024, Expires: 10/17/2025 Perform central line rider: Flush port(s), Site care Procedures Routine Empyema [...] inpatients and all outpatients) 07/19/2024 1:04 PM RAILROAD OPERATING ENGINEER NOCTURNAL OXYGEN STUDY - RT Routine 07/19/2024 12:24 PM RAILROAD OPERATING ENGINEER DX CHEST AP OR PA AND LATERAL 2 VIEWS RAD - Routine (most inpatients and all outpatients) 07/19/2024 9:10 AM RAILROAD OPERATING ENGINEER ADULT OXYGEN THERAPY Routine 07/19/2024 8:01 AM RAILROAD OPERATING ENGINEER CBC WITHOUT DIFFERENTIAL, B Routine 07/19/2024 6:02 AM RAILROAD OPERATING ENGINEER BASIC METABOLIC PANEL, S/P Routine 07/19/2024 6:02 [address] OPERATING ENGINE[address] PL[address] PERIPHERALLY INSERTED CENTRAL CATHETER (PICC) Routine 07/18/2024 8:43 PM RAILROAD OPERATING ENGINEER ADULT OXYGEN THERAPY Routine 07/18/2024 8:01 PM RAILROAD OPERATING ENGINEER DX CHEST AP OR PA AND LATERAL 2 VIEWS RAD - Routine (most inpatients and all outpatients) 07/18/2024 10:15 AM RAILROAD OPERATING ENGINEER ADULT OXYGEN THERAPY Routine 07/18/2024 8:00 AM RAILROAD OPERATING ENGINEER ADULT OXYGEN THERAPY Routine 07/17/2024 8:01 PM RAILROAD OPERATING ENGINEER HIV-1/-2 AG AND AB SCREEN, PLASMA Routine 07/17/2024 5:05 PM RAILROAD OPERATING ENGINEER ADULT OXYGEN THERAPY Routine 07/17/2024 8:01 AM RAILROAD OPERATING ENGINEER ADULT OXYGEN THERAPY Routine 07/16/2024 8:01 PM RAILROAD OPERATING ENGINEER RESPIRATORY ASSESS AND TREAT Routine 07/16/2024 2:00 PM RAILROAD OPERATING ENGINEER VANCOMYCIN, TROUGH, S Timed 07/16/2024 10:31 AM RAILROAD OPERATING ENGINEER ADULT OXYGEN THERAPY Routine 07/16/2024 8:01 AM RAILROAD OPERATING ENGINEER ADULT OXYGEN THERAPY Routine 07/15/2024 8:01 PM RAILROAD OPERATING ENGINEER ADULT OXYGEN THERAPY Routine 07/15/2024 6:49 PM RAILROAD OPERATING ENGINEER ADULT OXYGEN THERAPY Routine 07/15/2024 6:49 PM RAILROAD OPERATING ENGINEER ADULT OXYGEN THERAPY Routine 07/15/2024 6:49 PM RAILROAD OPERATING ENGINEER DX CHEST 1 VIEW RAD - Routine (most inpatients and all outpatients) 07/15/2024 4:51 PM RAILROAD OPERATING ENGINEER BACTERIAL CULTURE, AEROBIC + SUSC Routine 07/15/2024 4:00 PM RAILROAD OPERATING ENGINEER Empyema Pleural (HCC) ACTINOMYCES CULTURE Routine 07/15/2024 4 :00 PM RAILROAD OPERATING ENGINEER Empyema Pleural (HCC) MYCOBACTERIAL CULTURE, V Routine 07/15/2024 4:00 PM RAILROAD OPERATING ENGINEER Empyema Pleural (HCC) FUNGAL SMEAR Routine 07/15/2024 4:00 PM RAILROAD OPERATING ENGINEER Empyema Pleural (HCC) LEGIONELLA CULTURE Routine 07/15/2024 4: 00 PM RAILROAD OPERATING ENGINEER Empyema Pleural (HCC) ACID FAST SMEAR FOR MYCOBACTERIUM Routine 07/15/2024 4:00 PM RAILROAD OPERATING ENGINEER Empyema Pleural (HCC) GRAM STAIN Routine 07/15/2024 4:00 PM RAILROAD OPERATING ENGINEER Empyema Pleural (HCC) FUNGAL CULTURE, ROUTINE Routine 07/15/2024 4:00 PM RAILROAD OPERATING ENGINEER Empyema Pleural (HCC) BACTERIAL CULTURE, ANAEROBIC + SUSC Routine 07/15/2024 4:00 PM RAILROAD OPERATING ENGINEER Empyema Pleural (HCC) BACTERIAL CULTURE, AEROBIC + SUSC Routine 07/15/2024 2:24 PM RAILROAD OPERATING ENGINEER Empyema Pleural (HCC) MYCOBACTERIAL CULTURE, V Routine 07/15/2024 2:24 PM RAILROAD OPERATING ENGINEER Empyema Pleural (HCC) FUNGAL SMEAR Routine 07/15/2024 2:24 PM RAILROAD OPERATING ENGINEER Empyema Pleural (HCC) ACID FAST SMEAR FOR MYCOBACTERIUM Routine 07/15/2024 2:24 PM RAILROAD OPERATING ENGINEER Empyema Pleural (HCC) GRAM STAIN Routine 07/15/2024 2:24 PM RAILROAD OPERATING ENGINEER Empyema Pleural (HCC) FUNGAL CULTURE, ROUTINE Routine 07/15/2024 2:24 PM RAILROAD OPERATING ENGINEER Empyema Pleural (HCC) THORACOSCOPY - DECORTICATION 07/15/2024 12:32 PM RAILROAD OPERATING ENGINEER Empyema Pleural (HCC) TYPE AND SCREEN STAT 07/15/2024 7:50 AM RAILROAD OPERATING ENGINEER MRSA/STAPHYLOCOCCUS AUREUS, NASAL, BY PCR Routine 07/14/2024 10:39 AM RAILROAD OPERATING ENGINEER BASIC METABOLIC PANEL, S/P Routine 07/14/2024 4:09 AM RAILROAD OPERATING ENGINEER DX CHEST PORTABLE 1 VIEW RAD - Routine (most inpatients and all outpatients) 07/13/2024 9:07 PM RAILROAD OPERATING ENGINEER CBC WITHOUT DIFFERENTIAL, B Routine 07/13/2024 8:14 PM RAILROAD OPERATING ENGINEER documented in this encounter Results * DX Chest AP or PA and Lateral 2 Views (07/19/2024 1:04 PM RAILROAD OPERATING ENGINEER) Anatomical Region Laterality Modality Chest, Thoracic RST LOS, Tho racic ARZ LOS, Thoracic FLA LOS N/A Digital Radiography Impressions 07/19/2024 1:55 PM RAILROAD OPERATING ENGINEER Since earlier today, removal of the left chest tube. Remainder not significantly changed. Trace left apical pneumothorax. Right PICC tip at the SVC/RA junction. No pleural effusions. Enlarged cardiac silhouette. Scattered subsegmental atelectasis. Narrative 07/19/2024 1:55 PM RAILROAD OPERATING ENGINEER EXAM: DX CHEST AP OR PA AND [...] atelectasis. Eveline Mariscal P.A.-C. IMG DIAGNOSTIC IMAGING ME OCEDURES Final Result * DX Chest AP or PA and Lateral 2 Views (07/19/2024 9:10 AM RAILROAD OPERATING ENGINEER) Anatomical Region Laterality Modality Chest, Thoracic RST LOS, Tho [facility] LOS, Thoracic FLA LOS N/A Digital Radiography Impressions 07/19/2024 10:12 AM RAILROAD OPERATING ENGINEER Since 07/18/2024, right arm PICC has been inserted with tip at the SVC RA junction. One of the left chest tubes has been removed. Remainder unchanged. Trace left apical pneumothorax. No pleural effusions. Enlarged cardiac silhouette. Scattered subsegmental atelectasis. Left chest tube. Narrative 07/19/2024 10:12 AM RAILROAD OPERATING ENGINEER EXAM: DX CHEST AP OR PA AND [...] tube. Eveline Mariscal P.A.-C. IMG DIAGNOSTIC IMAGING ME OCEDURES Final Result * Basic Metabolic Panel (07/19/2024 6:02 AM RAILROAD OPERATING ENGINEER) Pathologist [facility] Potassium, S 3.6 3.6 - 5.2 mmol/L 07/19/2024 6:59 AM RAILROAD OPERATING ENGINEER DTL Sodium, S 140 135 - 145 mmol/L 07/19/2024 6:59 AM RAILROAD OPERATING ENGINEER DTL Chloride, S 103 98 - 107 mmol/L 07/19/2024 6:59 AM RAILROAD OPERATING ENGINEER DTL Bicarbonate, S 28 22 - 29 mmol/L 07/19/2024 6:59 AM RAILROAD OPERATING ENGINEER DTL Anion Gap 9 7 - 15 07/19/2024 6:59 AM RAILROAD OPERATING ENGINEER DTL BUN (Blood Urea Nitrogen), S 11 6 - 21 mg/dL 07/19/2024 6:59 AM RAILROAD OPERATING ENGINEER DTL Creatinine 0.82 0.59 - 1.04 mg/dL 07/19/2024 6:59 AM RAILROAD OPERATING ENGINEER DTL Estimated GFR (eGFR) >90 >=60 mL/min/BSA 07/19/2024 6:59 AM RAILROAD OPERATING ENGINEER DTL Comment: Estimated GFR calculated using the 2020 CKD_EPI creatinine equation. Calcium, Total, S 8.6 8.6 - 10.0 mg/dL 07/19/2024 6:59 AM RAILROAD OPERATING ENGINEER DTL Glucose, S 90 70 - 140 mg/dL 07/19/2024 6:59 AM RAILROAD OPERATING ENGINEER DTL Blood (Blood, Venous) 07/19/2024 6:02 AM RAILROAD OPERATING ENGINEER 07/19/2024 6:42 AM RAILROAD OPERATING ENGINEER Lopez Garvey M.D. LAB BLOOD ADD-ON Final Resul t [facility] [address] [place] [address], [place] DTL [facility] [address] [place] [address] * (ABNORMAL) CBC without Differential (07/19/2024 6:02 AM RAILROAD OPERATING ENGINEER) Hemoglobin 7.6(L) 11.6 - 15.0 g/dL 07/19/2024 6:38 AM RAILROAD OPERATING ENGINEER DTL Hematocrit 24.1(L) 35.5 - 44.9 % 07/19/2024 6:38 AM RAILROAD OPERATING ENGINEER DTL Erythrocytes 2.67(L) 3.92 - 5.13 x10(12)/L 07/19/2024 6:38 AM RAILROAD OPERATING ENGINEER DTL MCV 90.3 78.2 - 97.9 fL 07/19/2024 6:38 AM RAILROAD OPERATING ENGINEER DTL RBC Distrib Width 15.6 12.2 - 16.1 % 07/19/2024 6:38 AM RAILROAD OPERATING ENGINEER DTL Platelet Count 478(H) 157 - 371 x10(9)/L 07/19/2024 6:38 AM RAILROAD OPERATING ENGINEER DTL Leukocytes 9.8(H) 3.4 - 9.6 x10(9)/L 07/19/2024 6:38 AM RAILROAD OPERATING ENGINEER DTL Blood (Blood, Venous) 07/19/2024 6:02 AM RAILROAD OPERATING ENGINEER 07/19/2024 6:26 AM RAILROAD OPERATING ENGINEER Lopez Garvey M.D. LAB BLOOD ADD-ON Final Resul t [facility] [address] [place] [address], [facility] [address] [place] [address] * Place peripherally inserted central catheter (PICC) (07/18/2024 8:43 PM RAILROAD OPERATING ENGINEER) Narrative [facility] - 07/18/2024 8:43 PM RAILROAD OPERATING ENGINEER Rayo Finch R.N. 07/18/2024 9:[address] [...] with ultrasound and measured to ensure appropriate yvfmiipu-cn-uecy ratio of 45% or less: Right Basilic [...] to release the adhesive from the skin. http://[employer]/products/secureportiv Eveline Mariscal P.A.-C. PROCEDURE/MINOR SURGICAL ORDERABLES Final Result [facility] NA * DX Chest AP or PA and Lateral 2 Views (07/18/2024 10:15 AM RAILROAD OPERATING ENGINEER) Anatomical Region Laterality Modality Chest, Thoracic RST LOS, Tho racic ARZ LOS, Thoracic FLA LOS N/A Digital Radiography Impressions 07/18/2024 10:22 AM RAILROAD OPERATING ENGINEER Compared with the 07/15/2024 chest radiograph. Decreased tiny left pneumothorax. Slightly improved aeration with decreased lower lung predominant presumably atelectases. Shallow inspiration with accentuation of the cardiovascular structures. Narrative 07/18/2024 10:22 AM RAILROAD OPERATING ENGINEER EXAM: DX CHEST AP OR PA AND LATERAL 2 VIEWS Procedure Note Polo Toussaint M.D. - 07/18/2024 EXAM: DX CHEST AP OR PA AND LATERAL 2 VIEWS IMPRESSION: Compared with the 07/15/2024 chest radiograph. Decreased tiny leftpneumothorax. Slightly improved aeration with decreased lower lungpredominant presumably atelectases. Shallow inspiration with accentuationof the cardiovascular structures. Eveline Mariscal P.A.-C. IMG DIAGNOSTIC IMAGING ME OCEDURES Final Result * HIV-1/-2 Ag and Ab Screen, Plasma (07/17/2024 5:05 PM RAILROAD OPERATING ENGINEER) Pathologist [facility] HIV-1/-2 Ag and Ab Screen, P Negative Negative 07/17/2024 8:57 PM RAILROAD OPERATING ENGINEER [facility] Comment: Negative result does not rule out HIV infection. If exposure to HIV infection occurred <14 days ago, contact the laboratory to request addition of HIV-1/HIV-2 RNA detection, Plasma (HIP12). Blood (Blood, Venous) 07/17/2024 5:05 PM RAILROAD OPERATING ENGINEER 07/17/2024 7:55 PM RAILROAD OPERATING ENGINEER us Arslan Pennington APRN., M.S. LAB MICROBIOLOGY - BLOOD ORDERABLES Final Result Performing Organization Address [facility] Co de Phone Number [facility] [address] [place] [address] [facility] [address] [place] [address] * (ABNORMAL) Vancomycin, Trough (07/16/2024 10:31 AM RAILROAD OPERATING ENGINEER) [facility] Vancomycin, Trough, S 8.9(L) 10.0 - 20.0 mcg/mL 07/16/2024 12:10 PM RAILROAD OPERATING ENGINEER DTL Blood (Blood, Venous) 07/16/2024 10:31 AM RAILROAD OPERATING ENGINEER 07/16/2024 10:52 AM RAILROAD OPERATING ENGINEER us Patrick Mtz M.D., Ph.D. LAB BLOOD NON ADD-ON Fi nal Result Performing Organization Address [facility] Co de Phone Number [facility] [address] [place] [address], [facility] [address] [place] [address] * DX Chest 1 View (07/15/2024 4:51 PM RAILROAD OPERATING ENGINEER) Anatomical Region Laterality Modality Chest, Thoracic RST LOS, Tho racic ARZ LOS, Thoracic FLA LOS N/A Digital Radiography Impressions 07/15/2024 4:59 PM RAILROAD OPERATING ENGINEER Negative for postoperative purposes. Left thoracotomy with 2 left chest tubes. Small left-sided pneumothorax. New left perihilar consolidation/atelectasis since 07/13/2024. Increased bibasilar consolidation/atelectasis. Very low lung volumes accentuate heart size and bronchovascular markings. Narrative 07/15/2024 4:59 PM RAILROAD OPERATING ENGINEER EXAM: DX CHEST 1 VIEW Procedure Note Jah Elam M.D. - 07/15/2024 EXAM: DX CHEST 1 VIEW IMPRESSION: Negative for postoperative purposes. Left thoracotomy with 2 left chesttubes. Small left-sided pneumothorax. New left perihilarconsolidation/atelectasis since 07/13/2024. Increased bibasilarconsolidation/atelectasis. Very low lung volumes accentuate heart size and bronchovascular markings. us Patrick Mtz M.D., Ph.D. [facility] DIAGNOSTIC IMAGING PROCEDURES Final Result * Bacterial Culture, Aerobic + Susceptibility (07/15/2024 4:00 PM RAILROAD OPERATING ENGINEER) Bacterial Culture, Aerobic + Susc No growth after 5 days of incubation. 07/20/2024 7:42 AM RAILROAD OPERATING ENGINEER DTL Tissue (Pleura, Left) 07/15/2024 4:00 PM RAILROAD OPERATING ENGINEER us Patrick Mtz M.D., Ph.D. LAB MICROBIOLOGY - GENE RAL ORDERABLES Final Result [facility] [address] [place] [address], [facility] [address] [place] [address] * Fungal Smear (07/15/2024 4:00 PM RAILROAD OPERATING ENGINEER) Fungal Smear Negative. 07/16/2024 8:52 AM RAILROAD OPERATING ENGINEER DTL Tissue (Pleura, Left) 07/15/2024 4:00 PM RAILROAD OPERATING ENGINEER us Patrick Mtz M.D., Ph.D. LAB MICROBIOLOGY - GENE RAL ORDERABLES Final Result [facility] [address] [place] [address], [facility] [address] [place] [address] * Legionella Culture (07/15/2024 4:00 PM RAILROAD OPERATING ENGINEER) Legionella Culture No growth of Legionella species after 7 days of incubation 07/22/2024 8:16 AM RAILROAD OPERATING ENGINEER DTL Tissue (Pleura, Left) 07/15/2024 4:00 PM RAILROAD OPERATING ENGINEER us Patrick Mtz M.D., Ph.D. LAB MICROBIOLOGY - GENE RAL ORDERABLES Final Result [facility] [address] [place] [address], [facility] [address] [place] [address] * Acid Fast Smear for Mycobacterium (07/15/2024 4:00 PM RAILROAD OPERATING ENGINEER) Acid Fast Smear For Mycobacterium Negative. 07/15/2024 10:18 PM RAILROAD OPERATING ENGINEER DTL Tissue (Pleura, Left) 07/15/2024 4:00 PM RAILROAD OPERATING ENGINEER us Patrick Mtz M.D., Ph.D. LAB MICROBIOLOGY - GENE RAL ORDERABLES Final Result Performing Organization Address City/[facility]/ZIP Co de Phone Number [facility] [address] [place] [address], [facility] [address] [place] [address] * Gram Stain (07/15/2024 4:00 PM RAILROAD OPERATING ENGINEER) Gram Stain No organisms seen. White blood cells, Many 07/15/2024 10:18 PM RAILROAD OPERATING ENGINEER DTL Tissue (Pleura, Left) 07/15/2024 4:00 PM RAILROAD OPERATING ENGINEER us Patrick Mtz M.D., Ph.D. LAB MICROBIOLOGY - GENE RAL ORDERABLES Final Result Performing Organization Address City/[facility]/ZIP Co de Phone Number [facility] [address] [place] [address], [facility] [address] [place] [address] * Bacterial Culture, Aerobic + Susceptibility (07/15/2024 2:24 PM RAILROAD OPERATING ENGINEER) Bacterial Culture, Aerobic + Susc No growth after 5 days of incubation. 07/20/2024 7:42 AM RAILROAD OPERATING ENGINEER DTL Fluid (Pleural Fluid, Left) 07/15/2024 2:24 PM RAILROAD OPERATING ENGINEER Narrative [facility] - 07/20/2024 7:42 AM RAILROAD OPERATING ENGINEER Bacterial Culture: Placed in Bactec aerobic and Bactec anaerobic bottles us Patrick Mtz M.D., Ph.D. LAB MICROBIOLOGY - GENE RAL ORDERABLES Final Result [facility] [address] [place] [address], [facility] [address] [place] [address] * Fungal Smear (07/15/2024 2:24 PM RAILROAD OPERATING ENGINEER) Fungal Smear Negative. 07/15/2024 7:25 PM RAILROAD OPERATING ENGINEER DTL Fluid (Pleural Fluid, Left) 07/15/2024 2:24 PM RAILROAD OPERATING ENGINEER [facility] - 07/15/2024 7:25 PM RAILROAD OPERATING ENGINEER Bacterial Culture: Placed in Bactec aerobic and Bactec anaerobic bottles us Patrick Mtz M.D., Ph.D. LAB MICROBIOLOGY - GENE RAL ORDERABLES Final Result [facility] [address] [place] [address], [facility] [address] [place] [address] * Acid Fast Smear for Mycobacterium (07/15/2024 2:24 PM RAILROAD OPERATING ENGINEER) Acid Fast Smear For Mycobacterium Negative. 07/15/2024 9:24 PM RAILROAD OPERATING ENGINEER DTL Fluid (Pleural Fluid, Left) 07/15/2024 2:24 PM RAILROAD OPERATING ENGINEER Narrative [facility] - 07/15/2024 9:24 PM RAILROAD OPERATING ENGINEER Bacterial Culture: Placed in Bactec aerobic and Bactec anaerobic bottles us Patrick Mtz M.D., Ph.D. LAB MICROBIOLOGY - GENE RAL ORDERABLES Final Result Performing Organization Address [facility]/ZIP Co de Phone Number [facility] [address] [facility] [address] [place] [address] * Gram Stain (07/15/2024 2:24 PM RAILROAD OPERATING ENGINEER) Pathologist [facility] Gram Stain No organisms seen. White blood cells, Moderate 07/15/2024 8:02 PM RAILROAD OPERATING ENGINEER DTL Fluid (Pleural Fluid, Left) 07/15/2024 2:24 PM RAILROAD OPERATING ENGINEER Narrative [facility] - 07/15/2024 8:02 PM RAILROAD OPERATING ENGINEER Bacterial Culture: Placed in Bactec aerobic and Bactec anaerobic bottles us Patrick Mtz M.D., Ph.D. LAB MICROBIOLOGY - GENE RAL ORDERABLES Final Result Performing Organization Address [facility] Co de Phone Number [facility] [address] [place] [address] * Type and Screen (with Reflex Antibody ID) (07/15/2024 7:50 AM RAILROAD OPERATING ENGINEER) Pathologist [facility] ABORh AB Pos Not applicable 07/15/2024 8:36 AM RAILROAD OPERATING ENGINEER STRM Antibody Screen Negative Negative 07/15/2024 8:51 AM RAILROAD OPERATING ENGINEER STRM Type & Screen Expiration 07/18/2024 23:59 07/15/2024 8:36 AM RAILROAD OPERATING ENGINEER STRM Testing Location [place] DEFAULT 07/15/2024 8:10 AM RAILROAD OPERATING ENGINEER STRM Blood (Blood, Venous) 07/15/2024 7:50 AM RAILROAD OPERATING ENGINEER 07/15/2024 8:10 AM RAILROAD OPERATING ENGINEER us Jamie Kumar M.D. LAB BLOOD BANK TEST ORDERABLES F inal Result [facility] [address] [place] [address], [facility] STRM [facility] [address] [place] [address] * Staph aureus / MRSA, Nasal, PCR (07/14/2024 10:39 AM RAILROAD OPERATING ENGINEER) Staphylococcus aureus, PCR Negative Negative 07/14/2024 12:55 PM RAILROAD OPERATING ENGINEER DTL MRSA, PCR Negative Negative 07/14/2024 12:55 PM RAILROAD OPERATING ENGINEER DTL Swab (Nares) 07/14/2024 10:3 9 AM RAILROAD OPERATING ENGINEER 07/14/2024 11:06 AM RAILROAD OPERATING ENGINEER us Patrick Mtz M.D., Ph.D. LAB MICROBIOLOGY - GENE RAL ORDERABLES Final Result Performing Organization Address [facility] Co de Phone Number [facility] [address] [place] [address], [facility] DTL [facility] [address] [place] [address] * (ABNORMAL) Basic Metabolic Panel (07/14/2024 4:09 AM RAILROAD OPERATING ENGINEER) Potassium, S 3.9 3.6 - 5.2 mmol/L 07/14/2024 5:53 AM RAILROAD OPERATING ENGINEER DTL Sodium, S 139 135 - 145 mmol/L 07/14/2024 5:53 AM RAILROAD OPERATING ENGINEER DTL Chloride, S 103 98 - 107 mmol/L 07/14/2024 5:53 AM RAILROAD OPERATING ENGINEER DTL Bicarbonate, S 22 22 - 29 mmol/L 07/14/2024 5:53 AM RAILROAD OPERATING ENGINEER DTL Anion Gap 14 7 - 15 07/14/2024 5:53 AM RAILROAD OPERATING ENGINEER DTL BUN (Blood Urea Nitrogen), S 10 6 - 21 mg/dL 07/14/2024 5:53 AM RAILROAD OPERATING ENGINEER DTL Creatinine 0.57(L) 0.59 - 1.04 mg/dL 07/14/2024 5:53 AM RAILROAD OPERATING ENGINEER DTL Estimated GFR (eGFR) >90 >=60 mL/min/BSA 07/14/2024 5:53 AM RAILROAD OPERATING ENGINEER DTL Comment: Estimated GFR calculated using the 2020 CKD_EPI creatinine equation. Calcium, Total, S 9.1 8.6 - 10.0 mg/dL 07/14/2024 5:53 AM RAILROAD OPERATING ENGINEER DTL Glucose, S 91 70 - 140 mg/dL 07/14/2024 5:53 AM RAILROAD OPERATING ENGINEER DTL Blood (Blood, Venous) 07/14/2024 4:09 AM RAILROAD OPERATING ENGINEER 07/14/2024 5:23 AM RAILROAD OPERATING ENGINEER us Lopez Garvey M.D. LAB BLOOD ADD-ON Final Resul t [facility] [address] [place] [address], [place] [facility] [address] [place] [address] * DX Chest Portable 1 View (07/13/2024 9:07 PM RAILROAD OPERATING ENGINEER) Anatomical Region Laterality Modality Chest, Thoracic RST LOS, Tho racic ARZ LOS, Thoracic FLA LOS N/A Digital Radiography Impressions 07/14/2024 7:27 AM RAILROAD OPERATING ENGINEER No significant change since earlier today. Bibasilar atelectasis. Small left loculated pleural effusion. Hazy opacification in the bilateral lungs, left greater than right. No discernible pneumothorax. Mildly enlarged cardiomediastinal silhouette. Narrative 07/14/2024 7:27 AM RAILROAD OPERATING ENGINEER EXAM: DX CHEST PORTABLE 1 VIEW Procedure Note Chaz Montelongo M.D. - 07/14/2024 EXAM: DX CHEST PORTABLE 1 VIEW IMPRESSION: No significant change since earlier today. Bibasilar atelectasis. Smallleft loculated pleural effusion. Hazy opacification in the bilaterallungs, left greater than right. No discernible pneumothorax. Mildlyenlarged cardiomediastinal silhouette. us Lopez Garvey M.D. IMG DIAGNOSTIC IMAGING [facility] Final Result * (ABNORMAL) CBC without Differential (07/13/2024 8:14 PM RAILROAD OPERATING ENGINEER) Hemoglobin 9.7(L) 11.6 - 15.0 g/dL 07/13/2024 9:24 PM RAILROAD OPERATING ENGINEER DTL Hematocrit 30.1(L) 35.5 - 44.9 % 07/13/2024 9:24 PM RAILROAD OPERATING ENGINEER DTL Erythrocytes 3.32(L) 3.92 - 5.13 x10(12)/L 07/13/2024 9:24 PM RAILROAD OPERATING ENGINEER DTL MCV 90.7 78.2 - 97.9 fL 07/13/2024 9:24 PM RAILROAD OPERATING ENGINEER DTL RBC Distrib Width 15.3 12.2 - 16.1 % 07/13/2024 9:24 PM RAILROAD OPERATING ENGINEER DTL Platelet Count 788(H) 157 - 371 x10(9)/L 07/13/2024 9:24 PM RAILROAD OPERATING ENGINEER DTL Leukocytes 17.4(H) 3.4 - 9.6 x10(9)/L 07/13/2024 9:24 PM RAILROAD OPERATING ENGINEER DTL Blood (Blood, Venous) 07/13/2024 8:14 PM RAILROAD OPERATING ENGINEER 07/13/2024 9:16 PM RAILROAD OPERATING ENGINEER Lopez Garvey M.D. LAB BLOOD ADD-ON Final Resul t [address] [address], [facility] [address] [place] [address] documented in this encounter Visit Diagnoses Diagnosis [...] first dose New Bag 07/15/2024 5:12 PM RAILROAD OPERATING ENGINEER 1,000 mg 400 mL/hr acetaminophen tablet 1,000 mg (TylenoL) 1,000 mg, oral, Every 6 hours, First dose on 07/13/24 at 2100 Given 07/20/2024 8:40 AM RAILROAD OPERATING ENGINEER 1,000 mg Given 07/20/2024 2:56 AM RAILROAD OPERATING ENGINEER 1,000 mg Given 07/19/2024 8:36 PM RAILROAD OPERATING ENGINEER 1,000 mg bisacodyL suppository 10 mg (Dulcolax) [...] or split tablet. Given 07/20/2024 8:42 AM RAILROAD OPERATING ENGINEER 150 mg Given 07/19/2024 8:39 AM RAILROAD OPERATING ENGINEER 150 mg Given 07/18/2024 7:34 AM RAILROAD OPERATING ENGINEER 150 mg buPROPion XL 24 hr tablet 300 mg (Wellbutrin XL) 300 mg, oral, Daily, First dose on Mon07/14/24 at 0900, Swallow whole. Do NOT crush, chew, or split tablet. Given 07/20/2024 8:41 AM RAILROAD OPERATING ENGINEER 300 mg Given 07/19/2024 8:41 AM RAILROAD OPERATING ENGINEER 300 mg Given 07/18/2024 7:36 AM RAILROAD OPERATING ENGINEER 300 mg calcium carbonate chewable tablet 400 [...] 07/14/24 at 2100 Given 07/19/2024 8:37 PM RAILROAD OPERATING ENGINEER 4.5 mg Given 07/18/2024 9:23 PM RAILROAD OPERATING ENGINEER 4.5 mg Given 07/17/2024 8:24 PM RAILROAD OPERATING ENGINEER 4.5 mg cefTRIAXone in dextrose (iso osm) IVPB 2 g (Rocephin) 2 g, intravenous, at 200 mL/hr, Administer over 15 Minutes, Every 24 hours, First dose on Mon07/17/24 at 1600, Drug Monitoring Program: Pharmacist to adjust medication dosing based on indication and drug clearance factors., Indications: empyemaIndications:empyema New Bag 07/20/2024 8:43 AM RAILROAD OPERATING ENGINEER 2 g 200 mL/hr New Bag 07/19/2024 11:52 AM RAILROAD OPERATING ENGINEER 2 g 200 mL/hr New Bag 07/18/2024 4:31 PM RAILROAD OPERATING ENGINEER 2 g 200 mL/hr D5W infusion 1-999 [...] feeding administration instructions. Given 07/20/2024 8:40 AM RAILROAD OPERATING ENGINEER 60 mg Given 07/19/2024 8:40 AM RAILROAD OPERATING ENGINEER 60 mg Given 07/18/2024 7:35 AM RAILROAD OPERATING ENGINEER 60 mg fentaNYL injection 25 mcg (Sublimaze) 25 mcg, intravenous, Every 2 min PRN, For pain 4 or greater (maximum 100 mcg). If max dose of Fentanyl is reached and if pain is greater than 4, discontinue Fentanyl: give Hydromorphone, Starting on Mon07/15/24 at 1145, PACU (only) Given 07/15/2024 5:47 PM RAILROAD OPERATING ENGINEER 25 mcg Given 07/15/2024 5:31 PM RAILROAD OPERATING ENGINEER 25 mcg Given 07/15/2024 5:24 PM RAILROAD OPERATING ENGINEER 25 mcg heparin (porcine) injection 5,000 Units 5,000 Units, subcutaneous, Every 8 hours scheduled, First dose on Mon07/14/24 at 0400 Given 07/15/2024 9:27 PM RAILROAD OPERATING ENGINEER 5,000 Units Left Lower Abdomen Given 07/14/2024 10:20 PM RAILROAD OPERATING ENGINEER 5,000 Units Left Lower Abdomen Given 07/14/2024 2:32 PM RAILROAD OPERATING ENGINEER 5,000 Units L eft Upper Arm (Back) heparin (porcine) injection 5,000 Units 5,000 Units, subcutaneous, Every 8 hours scheduled, First dose on Mon07/16/24 at 0600 Given 07/20/2024 5:49 AM RAILROAD OPERATING ENGINEER 5,000 Units Right Upper Arm (Back) Given 07/19/2024 8:36 PM RAILROAD OPERATING ENGINEER 5,000 Units L eft Upper Arm (Back) Given 07/19/2024 1:45 PM RAILROAD OPERATING ENGINEER 5,000 Units L eft Upper Abdomen HYDROmorphone (PF) injection 0.2 mg (Dilaudid) 0.2 mg, intravenous, Every 1 hour PRN, severe pain or score 7-10 of 10, Starting on 07/13/24 at 1953 Given 07/18/2024 7:27 AM RAILROAD OPERATING ENGINEER 0.2 mg Given 07/18/2024 2:43 AM RAILROAD OPERATING ENGINEER 0.2 mg Given 07/17/2024 7:17 PM RAILROAD OPERATING ENGINEER 0.2 mg HYDROmorphone (PF) injection 0.2 mg (Dilaudid) 0.2 mg, intravenous, Every 5 min PRN, moderate pain or score 4-6 of 10, severe pain or score 7-10 of 10, Starting on Mon07/15/24 at 1145, PACU (only), Up to maximum total dose of 2 mg Given 07/15/2024 6:18 PM RAILROAD OPERATING ENGINEER 0.2 mg Given 07/15/2024 6:04 PM RAILROAD OPERATING ENGINEER 0.2 mg HYDROmorphone-0.9 % NaCl 1 mg/mL POULTRY HATCHERY MAN bag (Dilaudid) POULTRY HATCHERY MAN Dose: 0.1 mg, POULTRY HATCHERY MAN Lockout: 10 Minutes, Continuous Rate: 0 mg/hr, Four Hour Limit: 2 mg, intravenous, Continuous, Starting on Mon07/15/24 at 2245, Prescriber to manage. Administer with a compatible IV carrier fluid. Rate/Dose Verify 07/17/2024 3:41 AM RAILROAD OPERATING ENGINEER Rate/Dose Verify 07/17/2024 12:00 AM RAILROAD OPERATING ENGINEER Rate/Dose Verify 07/16/2024 8:18 PM RAILROAD OPERATING ENGINEER ibuprofen tablet 400 mg 400 mg, oral, Every 6 hours PRN, moderate pain or score 4-6 of 10, severe pain or score 7-10 of 10, Starting on Mon07/19/24 at 2135, Take with food or milk if GI disturbances occur with use. Given 07/20/2024 5:49 AM RAILROAD OPERATING ENGINEER 400 mg Given 07/19/2024 9:44 PM RAILROAD OPERATING ENGINEER 400 mg ipratropium-albuteroL 0.5-2.5 mg/3 mL nebulizer [...] additional analgesic benefit. Given 07/19/2024 5:46 AM RAILROAD OPERATING ENGINEER 15 mg Given 07/18/2024 11:42 PM RAILROAD OPERATING ENGINEER 15 mg Given 07/18/2024 12:28 PM RAILROAD OPERATING ENGINEER 15 mg Lactated Ringer's 20 mL/hr, intravenous, Continuous, Starting on Mon07/15/24 at 1700, PACU & Post-Op Continued from OR 07/15/2024 5:12 PM RAILROAD OPERATING ENGINEER 20 mL/hr 20 mL/hr lidocaine 5 % 1 patch (Lidoderm) 1 patch, transdermal, Administer over 12 Hours, Daily, First dose on Mon07/13/24 at 2030, Remove after 12 hours. Medication Applied 07/13/2024 8:35 PM RAILROAD OPERATING ENGINEER 1 patch Flank lidocaine 5 % 1 patch (Lidoderm) 1 patch, transdermal, Administer over 12 Hours, Daily at bedtime, First dose (after last modification) on Mon07/14/24 at 2100, Remove after 12 hours. Medication Applied 07/19/2024 8:37 PM RAILROAD OPERATING ENGINEER 1 patch Left Upper Abdomen Medication Applied 07/18/2024 9:23 PM RAILROAD OPERATING ENGINEER 1 patch Other Medication Applied 07/17/2024 8:25 PM RAILROAD OPERATING ENGINEER 1 patch Flank LORazepam tablet 0.5 mg [...] NOT refrigerate. New Bag 07/17/2024 5:40 AM RAILROAD OPERATING ENGINEER 1,000 mg 260 mL/hr New Bag 07/16/2024 9:50 PM RAILROAD OPERATING ENGINEER 1,000 mg 260 mL/hr New Bag 07/15/2024 8:18 PM RAILROAD OPERATING ENGINEER 1,000 mg 260 mL/hr methocarbamoL tablet 500 mg (Robaxin) 500 mg, oral, 4 times daily PRN, muscle spasms, Starting on Mon07/17/24 at 1604 Given 07/20/2024 5:49 AM RAILROAD OPERATING ENGINEER 500 mg Given 07/19/2024 6:05 PM RAILROAD OPERATING ENGINEER 500 mg Given 07/19/2024 10:43 AM RAILROAD OPERATING ENGINEER 500 mg metroNIDAZOLE tablet 500 mg (FlagyL) 500 mg, oral, 3 times daily, First dose on Mon07/17/24 at 2100, Drug Monitoring Program: Pharmacist to adjust medication dosing based on indication and drug clearance factors., Indications: empyemaIndications:empyema Given 07/20/2024 8:42 AM RAILROAD OPERATING ENGINEER 500 mg Given 07/19/2024 8:37 PM RAILROAD OPERATING ENGINEER 500 mg Given 07/19/2024 1:46 PM RAILROAD OPERATING ENGINEER 500 mg NaCl 0.45 % infusion 50 mL/hr, intravenous, Continuous, Starting on Mon07/15/24 at 1915, 50 mL/hr until post-operative day one at 0800, then 20 mL/hr until post-operative day two at 0800, then discontinue when oral intake greater than 600 mL/hr and POULTRY HATCHERY MAN discontinued. Rate/Dose Verify 07/17/2024 12:00 AM RAILROAD OPERATING ENGINEER 20 mL/hr 20 mL/hr New Bag 07/16/2024 10:14 PM RAILROAD OPERATING ENGINEER 20 mL/hr 20 mL/hr Rate/Dose Verify 07/16/2024 8:18 PM RAILROAD OPERATING ENGINEER 20 mL/hr 20 mL/h r NaCl 0.45 % infusion 20 mL/hr, intravenous, Continuous, Starting on Mon07/17/24 at 0830, While POULTRY HATCHERY MAN running, discontinue if POULTRY HATCHERY MAN stopped Rate/Dose Verify 07/17/2024 12:00 PM RAILROAD OPERATING ENGINEER 20 mL/hr 20 mL/hr New Bag 07/17/2024 8:10 AM RAILROAD OPERATING ENGINEER 20 mL/hr 20 mL/hr NaCl 0.9% infusion [...] ondansetron before droperidol. Given 07/14/2024 3:56 AM RAILROAD OPERATING ENGINEER 4 mg oxyCODONE IR tablet 10 mg (Roxicodone) 10 mg, oral, Every 4 hours PRN, severe pain or score 7-10 of 10, for breakthrough pain, Starting on 07/13/24 at 3, Pain unrelieved by other oral analgesics. Given 07/20/2024 2:55 AM RAILROAD OPERATING ENGINEER 10 mg Given 07/19/2024 3:03 AM RAILROAD OPERATING ENGINEER 10 mg Given 07/18/2024 9:07 PM RAILROAD OPERATING ENGINEER 10 mg oxyCODONE IR tablet 5 mg (Roxicodone) 5 mg, oral, Every 4 hours PRN, moderate pain or score 4-6 of 10, for breakthrough pain, Starting on 07/13/24 at 3, Pain unrelieved by other oral analgesics. Given 07/20/2024 8:50 AM RAILROAD OPERATING ENGINEER 5 mg Given 07/19/2024 6:05 PM RAILROAD OPERATING ENGINEER 5 mg Given 07/19/2024 12:20 PM RAILROAD OPERATING ENGINEER 5 mg piperacillin-tazobactam in dextrose (iso osm) IVPB 4.5 g (Zosyn) 4.5 g, intravenous, at 200 mL/hr, Administer over 0.5 Hours, Every 6 hours, First dose (after last modification) on [facility] 07/13/24 at 2100, Drug Monitoring Program: Pharmacist to adjust medication dosing based on indication and drug clearance factors., Indications: Respiratory tract infection, healthcare associatedIndications:Respiratory tract infection, healthcare associated New Bag 07/17/2024 2:23 PM RAILROAD OPERATING ENGINEER 4.5 g 200 mL/hr New Bag 07/17/2024 8:11 AM RAILROAD OPERATING ENGINEER 4.5 g 200 mL/hr New Bag 07/17/2024 3:41 AM RAILROAD OPERATING ENGINEER 4.5 g 200 mL/hr polyethylene glycol powder packet 1 packet (Miralax) 1 packet, oral, Daily PRN, constipation, Starting on [facility] 07/13/24 at 1953, Dissolve in 240 mLs (8 ounces) of water prior to giving. Avoid mixing with starch-based thickened liquids. pregabalin capsule 200 mg (Lyrica) 200 mg, oral, 3 times daily, First dose on [facility] 07/13/24 at 2100 Given 07/20/2024 8:42 AM RAILROAD OPERATING ENGINEER 200 mg Given 07/19/2024 8:37 PM RAILROAD OPERATING ENGINEER 200 mg Given 07/19/2024 1:45 PM RAILROAD OPERATING ENGINEER 200 mg prochlorperazine injection 5 mg (Compazine) 5 mg, intravenous, Every 6 hours PRN, nausea, vomiting, Starting on [facility] 07/13/24 at 1953 sennosides tablet 17.2 mg (Senokot) 17.2 mg, oral, Daily, First dose on Mon07/14/24 at 0900, Do not give if patient has diarrhea Given 07/19/2024 8:41 AM RAILROAD OPERATING ENGINEER 17.2 mg Given 07/18/2024 7:35 AM RAILROAD OPERATING ENGINEER 17.2 mg Given 07/17/2024 8:09 AM RAILROAD OPERATING ENGINEER 17.2 mg sodium chloride 0.9 % injection [...] mL per lumen. Given 07/20/2024 9:12 AM RAILROAD OPERATING ENGINEER 10 mL Given 07/19/2024 9:39 AM RAILROAD OPERATING ENGINEER 10 mL Given 07/18/2024 9:24 PM RAILROAD OPERATING ENGINEER 10 mL sodium chloride 0.9 % injection [...] healthcare associated New Bag 07/17/2024 8:10 AM RAILROAD OPERATING ENGINEER 1,900 mg 260 mL/hr New Bag 07/16/2024 8:18 PM RAILROAD OPERATING ENGINEER 1,900 mg 260 mL/hr vancomycin in dextrose [...] healthcare associated New Bag 07/16/2024 11:35 AM RAILROAD OPERATING ENGINEER 1,500 mg 200 mL/hr New Bag 07/15/2024 10:46 PM RAILROAD OPERATING ENGINEER 1,500 mg 200 mL/hr New Bag 07/15/2024 11:06 AM RAILROAD OPERATING ENGINEER 1,500 mg 200 mL/hr vancomycin in NaCl [...] healthcare associated New Bag 07/14/2024 9:47 AM RAILROAD OPERATING ENGINEER 1,000 mg 200 mL/hr New Bag 07/13/2024 9:22 PM RAILROAD OPERATING ENGINEER 1,000 mg 200 mL/hr documented in this encounter Active and Recently Administered Medications Times are shown in RAILROAD OPERATING ENGINEER. Scheduled Medication Order 07/18/2024 07/19/2024 07/20/2024 acetaminophen [...] Hollis R.N.)1228 (Given - Provider: Candi Leonard R.N.)7102 (Given - Provider: Myke Alexander R.N.) 0546 [...] Leonard R.N.)1941 (Given - Provider: Myke Alexander RDimtryN.) 0402 (Given - Provider: Tara Stout RDmitryN.)1043 [...] Depression Total Score: 22 025 7:19 PM RAILROAD OPERATING ENGINEER documented as of this encounter Care Teams Turbine Subassembler Relationship Specialty Start Date End Date Prudence Mena MPAS, P.A.-C. [address] [facility] [place] [id number] PCP - General Internal Medicine 02/08/24 documented as of this encounter
--- OUTSIDE RECORDS SUMMARY | 2024-07-28 22:52 | XMS_ITS | Encounter Summary ---
Author Organization [facility] Address [address] [place] [address] Care Team Providers Care Nurse Sexual Assault Name Role Phone Prudence Mena P.A.-C. Primary Care Pro vider Encounter Details Date Type Department Care Team (Late st Contact Info) Description 07/26/2024 Results Follow-Up [facility] [address] [place] [phone] Lindsay Mejias, R.N. Social History Tobacco Use Types Packs/Day Years Used Date Smoking Tobacco: Former Cigarettes 1.5 0.1 S tarted: 06/21/2024 Passive Smoke Exposure: Past Smokeless Tobacco: Never Alcohol Use Standard Drinks/Week Comments Yes 0 (1 standard drink = 0.6 oz pur e alcohol) socially [facility] Utilities Answer Date Recorded In the past 12 months has [facility] [employer], gas, oil, or water [employer]) threatened to shut off services in your [...] How often do you attend judaism or sikh serv ices? Never 07/27/2022 Do you belong [...] Answer Date Recorded PHQ-2 Score 6 07/10/2024 [facility] - Occupational [...] st Contact Info) Description 07/29/2024 10:00 AM DELICATESSEN SLICER Infusion Department of Infusion Therapy in [address] [phone] Melinda Isaac, FRED, C.N.P. [address] [place] [phone] 07/29/2024 2:20 PM DELICATESSEN SLICER Office Visit Department of Community Internal Medicine in [place], [place] 300 [facility] [place] [phone] Prudence Mena, LATONIAS, P.A.-C. 300 [place] [phone] 07/30/2024 9:00 AM DELICATESSEN SLICER Infusion Department of Infusion Therapy in [address] [address] Melinda Isaac APRN, C.N.P. [address] [place] [phone] 07/31/2024 8:00 AM DELICATESSEN SLICER Infusion Department of Infusion Therapy in [address] [address] Melinda Isaac APRN, C.N.P. [address] [place] [phone] 08/01/2024 7:00 AM DELICATESSEN SLICER Infusion Department of Infusion Therapy in [address] [address] Melinda Isaac APRN, C.N.P. [address] [place] [phone] 08/02/2024 9:00 AM DELICATESSEN SLICER Infusion Department of Infusion Therapy in [address] [address] Melinda Isaac APRN, C.N.P. [address] [place] [phone] 08/02/2024 12:30 PM DELICATESSEN SLICER Clinical Communication Virtual Review in [place], [place] 200 [place] [phone] 08/03/2024 9:00 AM DELICATESSEN SLICER Infusion Department of Infusion Therapy in [address] [address] Melinda Isaac APRN, C.N.P. [address] [place] [phone] 08/04/2024 9:00 AM DELICATESSEN SLICER Infusion Department of Infusion Therapy in [address] [phone] Melinda Isaac APRN, C.N.P. [address] [place] [phone] 08/05/2024 8:45 AM DELICATESSEN SLICER Appointment Department of Radiology, [facility], in [place], [place] [address] [place] [phone] Kayleigh Small M.D. [address] [place] [phone] 08/05/2024 9:00 AM DELICATESSEN SLICER Infusion Department of Infusion Therapy in [address] [address] Melinda Isaac APRN, C.N.P. [address] [place] [phone] 08/05/2024 11:00 AM DELICATESSEN SLICER Office Visit Section of Infectious Diseases in [place], [place] [address] [place] [phone] Kayleigh Small M.D. [address] [place] [phone] 08/06/2024 9:00 AM DELICATESSEN SLICER Infusion Department of Infusion Therapy in [address] [address] Melinda Isaac APRN, C.N.P. [address] [place] [phone] 08/07/2024 9:00 AM DELICATESSEN SLICER Infusion Department of Infusion Therapy in [address] [address] Melinda Isaac APRN, C.N.P. [address] [place] [phone] 08/08/2024 9:00 AM DELICATESSEN SLICER Infusion Department of Infusion Therapy in [address] [address] Melinda Isaac APRN, C.N.P. [address] [place] [phone] 08/09/2024 9:00 AM DELICATESSEN SLICER Infusion Department of Infusion Therapy in [address] [address] Melinda Isaac APRN, C.N.P. [address] [place] [phone] 08/10/2024 9:00 AM DELICATESSEN SLICER Infusion Department of Infusion Therapy in [address] [address] Melinda Isaac APRN, C.N.P. [address] [place] [phone] 08/11/2024 9:00 AM DELICATESSEN SLICER Infusion Department of Infusion Therapy in [address] [address] Melinda Isaac APRN, C.N.P. [address] [place] [phone] 08/12/2024 9:00 AM DELICATESSEN SLICER Infusion Department of Infusion Therapy in [address] [address] Melinda Isaac APRN, C.N.P. [address] [place] [phone] 08/13/2024 8:30 AM DELICATESSEN SLICER Infusion Department of Infusion Therapy in [address] [address] Melinda Isaac APRN, C.N.P. [address] [place] [phone] 08/14/2024 9:00 AM DELICATESSEN SLICER Infusion Department of Infusion Therapy in [address] [address] Melinda Isaac APRN, C.N.P. [address] [place] [phone] 08/15/2024 9:00 AM DELICATESSEN SLICER Infusion Department of Infusion Therapy in [address] [address] Melinda Isaac APRN, C.N.P. [address] [place] [phone] 08/16/2024 9:00 AM DELICATESSEN SLICER Infusion Department of Infusion Therapy in [address] [address] Melinda Isaac APRN, C.N.P. [address] [place] [phone] 08/17/2024 9:00 AM DELICATESSEN SLICER Infusion Department of Infusion Therapy in [address] [address] Melinda Isaac APRN, C.N.P. [address] [place] [phone] 08/18/2024 9:00 AM DELICATESSEN SLICER Infusion Department of Infusion Therapy in [address] [phone] Melinda Isaac APRN, C.N.P. [address] [place] [phone] documented as of this encounter Visit Diagnoses Not on filedocumented in this encounter Additional Health Concerns Assessment Noted Time PHQ-9 Depression Total Score: 22 025 7:19 PM DELICATESSEN SLICER documented as of this encounter Care Teams Nurse Sexual Assault Relationship Specialty Start Date End Date Prudence Mena MPAS, P.A.-C. [address] [place] [phone] PCP - General Internal Medicine 02/08/24 documented as of this encounter
--- OUTSIDE RECORDS SUMMARY | 2024-07-28 22:52 | XMS_ITS | Encounter Summary ---
Author Organization [facility] Address [address] [place] [address] Care Team Providers Care Target Protection Specialist Name Role Phone Prudence Mena P.A.-C. Primary Care Pro vider Reason for Visit * Reason Comments Chest Wall Pain left Encounter Details Date Type Department Care Team (Late st Contact Info) Description 07/26/2024 9:14 AM BLOOD AND PLASMA LABORATORY ASSISTANT - 07/26/2024 2:06 PM [facility] Emergency [facility] [address] [place] [phone] Dilcia Valero, FITNESS STUDIES TEACHER, C.N.P. [address] [place] [address] Pain Chest Wall (Primary Dx) Discharge [...] How often do you attend shinto or hindu serv ices? Never 07/27/2022 Do [...] Answer Date Recorded PHQ-2 Score 6 07/10/2024 [facility] Occupat [facility] - Occupational Stress [...] Comments Blood Pressure 120/82 07/26/2024 1:45 PM BLOOD AND PLASMA LABORATORY ASSISTANT Pulse 101 07/26/2024 1:45 PM BLOOD AND PLASMA LABORATORY ASSISTANT Temperature 37.3 C (99.1 F) 07/26/2024 9:18 AM BLOOD AND PLASMA LABORATORY ASSISTANT Respiratory Rate 18 07/26/2024 9:18 AM BLOOD AND PLASMA LABORATORY ASSISTANT Oxygen Saturation 96% 07/26/2024 1:45 PM BLOOD AND PLASMA LABORATORY ASSISTANT Inhaled Oxygen Concentration - - Weight - - Height - - Body Mass Index - - documented in this encounter Discharge Instructions * Discharge Instructions* Dilcia Valero APRN, C.N.P. - 07/26/2024 1:28 PM BLOOD AND PLASMA LABORATORY ASSISTANT Fortunately your imaging and blood work today [...] such as fever, increased cough or pain. D AND PLASMA LABORATORY ASSISTANT * Attachments The following attachments cannot be sent through Care Everywhere. * How to Prevent Constipation After Surgery (Tongan) * Chest Wall Pain Xmab-df-Puts (Tongan) documented in this encounter Medications at Time [...] muscle spasms. 45 tablet 07/20/2024 10:13 AM BLOOD AND PLASMA LABORATORY ASSISTANT 07/19/2024 metroNIDAZOLE (FlagyL) 500 mg tabletIndication s:Empyema Take 1 tablet (500 mg total) by mouth 3 (three) times a day for 17 days Indications: Empyema. 51 tablet 07/20/2024 10:13 AM BLOOD AND PLASMA LABORATORY ASSISTANT 07/19/2024 multivitamin capsule Take 1 capsule by [...] a venous catheter daily for 17 days. [facility] 07/19/2024 5 DME CPAPIndications: Obstructive Sleep [...] Indication: Acute Pain Exception. 21 tablet 07/25/2024 documented as of this encounter Plan of Treatment Upcoming Encounters Date Type Department Care Team (Late st Contact Info) Description 07/29/2024 10:00 AM BLOOD AND PLASMA LABORATORY ASSISTANT Infusion Department of Infusion Therapy in [address] [phone] Melinda Isaac APRN, C.N.P. [address] [place] [phone] 07/29/2024 2:20 PM BLOOD AND PLASMA LABORATORY ASSISTANT Office Visit Department of Community Internal Medicine in [address] [phone] Prudence Mena MPAS, P.A.-C. 300 [place] [phone] 07/30/2024 9:00 AM BLOOD AND PLASMA LABORATORY ASSISTANT Infusion Department of Infusion Therapy in [address] [address] Melinda Isaac APRN, C.N.P. [address] [place] [phone] 07/31/2024 8:00 AM BLOOD AND PLASMA LABORATORY ASSISTANT Infusion Department of Infusion Therapy in [address] [address] Melinda Isaac APRN, C.N.P. [address] [place] [phone] 08/01/2024 7:00 AM BLOOD AND PLASMA LABORATORY ASSISTANT Infusion Department of Infusion Therapy in [address] [address] Melinda Isaac APRN, C.N.P. [address] [place] [phone] 08/02/2024 9:00 AM BLOOD AND PLASMA LABORATORY ASSISTANT Infusion Department of Infusion Therapy in [address] [phone] Melinda Isaac APRN, C.N.P. [address] [place] [phone] 08/02/2024 12:30 PM BLOOD AND PLASMA LABORATORY ASSISTANT Clinical Communication Virtual Review in [place], [place] 200 [place] [address] 08/03/2024 9:00 AM BLOOD AND PLASMA LABORATORY ASSISTANT Infusion Department of Infusion Therapy in [address] [phone] Melinda Isaac APRN, C.N.P. [address] [place] [phone] 08/04/2024 9:00 AM BLOOD AND PLASMA LABORATORY ASSISTANT Infusion Department of Infusion Therapy in [address] [address] Melinda Isaac APRN, C.N.P. [address] [place] [phone] 08/05/2024 8:45 AM BLOOD AND PLASMA LABORATORY ASSISTANT Appointment Department of Radiology, [facility], in [place], [place] [address] [place] [phone] Kayleigh Small M.D. [address] [place] [phone] 08/05/2024 9:00 AM BLOOD AND PLASMA LABORATORY ASSISTANT Infusion Department of Infusion Therapy in [address] [phone] Melinda Isaac APRN, C.N.P. [address] [place] [phone] 08/05/2024 11:00 AM BLOOD AND PLASMA LABORATORY ASSISTANT Office Visit Section of Infectious Diseases in [place], [place] [address] [place] [phone] Kayleigh Small M.D. [address] [place] [phone] 08/06/2024 9:00 AM BLOOD AND PLASMA LABORATORY ASSISTANT Infusion Department of Infusion Therapy in [address] [address] Melinda Isaac APRN, C.N.P. [address] [place] [phone] 08/07/2024 9:00 AM BLOOD AND PLASMA LABORATORY ASSISTANT Infusion Department of Infusion Therapy in [address] [address] Melinda Isaac APRN, C.N.P. [address] [place] [phone] 08/08/2024 9:00 AM BLOOD AND PLASMA LABORATORY ASSISTANT Infusion Department of Infusion Therapy in [address] [address] Melinda Isaac APRN, C.N.P. [address] [place] [phone] 08/09/2024 9:00 AM BLOOD AND PLASMA LABORATORY ASSISTANT Infusion Department of Infusion Therapy in [address] [address] Melinda Isaac APRN, C.N.P. [address] [place] [phone] 08/10/2024 9:00 AM BLOOD AND PLASMA LABORATORY ASSISTANT Infusion Department of Infusion Therapy in [address] [address] Melinda Isaac APRN, C.N.P. [address] [place] [phone] 08/11/2024 9:00 AM BLOOD AND PLASMA LABORATORY ASSISTANT Infusion Department of Infusion Therapy in [address] [phone] Melinda Isaac APRN, C.N.P. [address] [place] [phone] 08/12/2024 9:00 AM BLOOD AND PLASMA LABORATORY ASSISTANT Infusion Department of Infusion Therapy in [address] [phone] Melinda Isaac APRN, C.N.P. [address] [place] [phone] 08/13/2024 8:30 AM BLOOD AND PLASMA LABORATORY ASSISTANT Infusion Department of Infusion Therapy in [address] [address] Melinda Isaac APRN, C.N.P. [address] [place] [phone] 08/14/2024 9:00 AM BLOOD AND PLASMA LABORATORY ASSISTANT Infusion Department of Infusion Therapy in [address] [address] Melinda Isaac APRN, C.N.P. [address] [place] [phone] 08/15/2024 9:00 AM BLOOD AND PLASMA LABORATORY ASSISTANT Infusion Department of Infusion Therapy in [address] [address] Melinda Isaac APRN, C.N.P. [address] [place] [phone] 08/16/2024 9:00 AM BLOOD AND PLASMA LABORATORY ASSISTANT Infusion Department of Infusion Therapy in [address] [address] Melinda Isaac APRN, C.N.P. [address] [place] [phone] 08/17/2024 9:00 AM BLOOD AND PLASMA LABORATORY ASSISTANT Infusion Department of Infusion Therapy in [address] [phone] Melinda Isaac APRN, C.N.P. [address] [place] [phone] 08/18/2024 9:00 AM BLOOD AND PLASMA LABORATORY ASSISTANT Infusion Department of Infusion Therapy in [address] [phone] Melinda Isaac APRN, C.N.P. [address] [place] [phone] documented as of this encounter Procedures Procedure Name Priority Date/Time Associated Diagnosis Comments CT CHEST ANGIOGRAM AND PULMONARY ARTERIES WITH IV CONTRAST RAD - Semiurgent (Fast; most ED patients; some inpatients) 07/26/2024 10:37 AM BLOOD AND PLASMA LABORATORY ASSISTANT DX CHEST AP OR PA AND LATERAL 2 VIEWS RAD - Semiurgent (Fast; most ED patients; some inpatients) 07/26/2024 9:54 AM BLOOD AND PLASMA LABORATORY ASSISTANT SEDIMENTATION RATE, B STAT 07/26/2024 9:44 AM BLOOD AND PLASMA LABORATORY ASSISTANT CBC WITH DIFFERENTIAL, B STAT 07/26/2024 9:44 AM BLOOD AND PLASMA LABORATORY ASSISTANT C-REACTIVE PROTEIN (CRP), S/P STAT 07/26/2024 9:44 AM BLOOD AND PLASMA LABORATORY ASSISTANT BASIC METABOLIC PANEL, S/P STAT 07/26/2024 9:44 AM BLOOD AND PLASMA LABORATORY ASSISTANT documented in this encounter Results * CT Chest Angiogram and Pulmonary Arteries with IV Contrast (07/26/2024 10:37 AM BLOOD AND PLASMA LABORATORY ASSISTANT) Anatomical Region Laterality Modality Chest, Cardiovascular RST LO S, Thoracic ARZ LOS, Thoracic FLA LOS N/A Computed Tomography 07/26/2024 10:4 2 AM BLOOD AND PLASMA LABORATORY ASSISTANT Impressions 07/26/2024 10:46 AM BLOOD AND PLASMA LABORATORY ASSISTANT 1. Negative for acute pulmonary embolism. 2. Similar findings of multifocal pneumonia. 3. Stable small left pleural effusion. Narrative 07/26/2024 10:46 AM BLOOD AND PLASMA LABORATORY ASSISTANT EXAM: CT CHEST ANGIOGRAM AND PULMONARY ARTERIES [...] and Lateral 2 Views (07/26/2024 9:54 AM BLOOD AND PLASMA LABORATORY ASSISTANT) Anatomical Region Laterality Modality Chest, Thoracic RST LOS, Tho racic ARZ LOS, Thoracic FLA LOS N/A Digital Radiography Impressions 07/26/2024 9:59 AM BLOOD AND PLASMA LABORATORY ASSISTANT Right upper extremity PICC with tip projected over the right atrium. Small left pleural effusion, similar to prior. Scattered linear scarring/atelectasis. The groundglass and tree-in-bud opacities seen on prior CT are not well seen within the limits of radiography. July 24, 2024 and July 19, 2024 comparisons. Narrative 07/26/2024 9:59 AM BLOOD AND PLASMA LABORATORY ASSISTANT EXAM: DX CHEST AP OR PA [...] * Basic Metabolic Panel (07/26/2024 9:44 AM BLOOD AND PLASMA LABORATORY ASSISTANT) Potassium, P 3.9 3.6 - 5.2 mmol/L 07/26/2024 10:15 AM BLOOD AND PLASMA LABORATORY ASSISTANT CNFL Sodium, P 141 135 - 145 mmol/L 07/26/2024 10:15 AM BLOOD AND PLASMA LABORATORY ASSISTANT CNFL Chloride, P 105 98 - 107 mmol/L 07/26/2024 10:15 AM BLOOD AND PLASMA LABORATORY ASSISTANT CNFL Bicarbonate, P 25 22 - 29 mmol/L 07/26/2024 10:15 AM BLOOD AND PLASMA LABORATORY ASSISTANT CNFL Anion Gap, P 11 7 - 15 07/26/2024 10:15 AM BLOOD AND PLASMA LABORATORY ASSISTANT CNFL BUN (Blood Urea Nitrogen), P 10 6 - 21 mg/dL 07/26/2024 10:15 AM BLOOD AND PLASMA LABORATORY ASSISTANT CNFL Creatinine 0.62 0.59 - 1.04 mg/dL 07/26/2024 10:15 AM BLOOD AND PLASMA LABORATORY ASSISTANT CNFL Estimated GFR (eGFR) >90 >=60 mL/min/BSA 07/26/2024 10:15 AM BLOOD AND PLASMA LABORATORY ASSISTANT CNFL Comment: Estimated GFR calculated using the 2020 CKD_EPI creatinine equation. Calcium, Total, P 8.8 8.6 - 10.0 mg/dL 07/26/2024 10:15 AM BLOOD AND PLASMA LABORATORY ASSISTANT CNFL Glucose, P 122 70 - 140 mg/dL 07/26/2024 10:15 AM BLOOD AND PLASMA LABORATORY ASSISTANT CNFL Blood (Blood, Venous) 07/26/2024 9:44 AM BLOOD AND PLASMA LABORATORY ASSISTANT 07/26/2024 9:48 AM BLOOD AND PLASMA LABORATORY ASSISTANT us Dilcia Valero APRN, C.N.P. LAB BLOOD ADD-ON Final Result [facility] [address] [place] [address], [facility] CNFL [facility] in [address] [address] * (ABNORMAL) Sedimentation Rate (07/26/2024 9:44 AM BLOOD AND PLASMA LABORATORY ASSISTANT) Sedimentation Rate, B 102(H) 0 - 29 mm/1 h 07/26/2024 1:33 PM BLOOD AND PLASMA LABORATORY ASSISTANT RDWG Blood (Blood, Venous) 07/26/2024 9:44 AM BLOOD AND PLASMA LABORATORY ASSISTANT 07/26/2024 12:52 PM BLOOD AND PLASMA LABORATORY ASSISTANT Dilcia Valero APRN, C.N.P. LAB BLOOD ADD-ON Final Result Performing Organization Address [facility]/ZIP Co de Phone Number [facility] [address] [place] [phone], [facility] RDWG [facility] in [address] [phone] * (ABNORMAL) CRP (C-Reactive Protein) (07/26/2024 9:44 AM BLOOD AND PLASMA LABORATORY ASSISTANT) C-Reactive Protein (CRP), P 43.3(H) <5.0 mg/L 07/26/2024 10:15 AM BLOOD AND PLASMA LABORATORY ASSISTANT CNTN Blood (Blood, Venous) 07/26/2024 9:44 AM BLOOD AND PLASMA LABORATORY ASSISTANT 07/26/2024 9:48 AM BLOOD AND PLASMA LABORATORY ASSISTANT Dilcia Valero APRN, C.N.P. LAB BLOOD ADD-ON Final Result Performing Organization Address [facility]/ZIP Co de Phone Number [facility] [address] [place] [phone], [facility] CNFL [facility] in [address] [address] * (ABNORMAL) CBC with Differential, Blood (07/26/2024 9:44 AM BLOOD AND PLASMA LABORATORY ASSISTANT) Hemoglobin 9.8(L) 11.6 - 15.0 g/dL 07/26/2024 9:55 AM BLOOD AND PLASMA LABORATORY ASSISTANT CNFL Hematocrit 31.4(L) 35.5 - 44.9 % 07/26/2024 9:55 AM BLOOD AND PLASMA LABORATORY ASSISTANT CNFL Erythrocytes 3.55(L) 3.92 - 5.13 x10(12)/L 07/26/2024 9:55 AM BLOOD AND PLASMA LABORATORY ASSISTANT CNFL MCV 88.5 78.2 - 97.9 fL 07/26/2024 9:55 AM BLOOD AND PLASMA LABORATORY ASSISTANT CNFL RBC Distrib Width 15.4 12.2 - 16.1 % 07/26/2024 9:55 AM BLOOD AND PLASMA LABORATORY ASSISTANT CNFL Platelet Count 792(H) 157 - 371 x10(9)/L 07/26/2024 9:55 AM BLOOD AND PLASMA LABORATORY ASSISTANT CNFL Leukocytes 11.1(H) 3.4 - 9.6 x10(9)/L 07/26/2024 9:55 AM BLOOD AND PLASMA LABORATORY ASSISTANT CNFL Neutrophils 8.16(H) 1.56 - 6.45 x10(9)/L 07/26/2024 9:55 AM BLOOD AND PLASMA LABORATORY ASSISTANT CNFL Lymphocytes 1.74 0.95 - 3.07 x10(9)/L 07/26/2024 9:55 AM BLOOD AND PLASMA LABORATORY ASSISTANT CNFL Monocytes 0.79 0.26 - 0.81 x10(9)/L 07/26/2024 9:55 AM BLOOD AND PLASMA LABORATORY ASSISTANT CNFL Eosinophils 0.36 0.03 - 0.48 x10(9)/L 07/26/2024 9:55 AM BLOOD AND PLASMA LABORATORY ASSISTANT CNFL Basophils 0.07 0.01 - 0.08 x10(9)/L 07/26/2024 9:55 AM BLOOD AND PLASMA LABORATORY ASSISTANT CNFL Blood (Blood, Venous) 07/26/2024 9:44 AM BLOOD AND PLASMA LABORATORY ASSISTANT 07/26/2024 9:48 AM BLOOD AND PLASMA LABORATORY ASSISTANT us Dilcia Valero APRN, C.N.P. LAB BLOOD ADD-ON Final Result [facility] [address] [place] [phone], [facility] CNFL [facility] in [address] [address] documented in this encounter Visit Diagnoses Diagnosis [...] For 3 doses Given 07/26/2024 1:48 PM BLOOD AND PLASMA LABORATORY ASSISTANT 0.5 mg Given 07/26/2024 11:39 AM BLOOD AND PLASMA LABORATORY ASSISTANT 0.5 mg HYDROmorphone injection 1 mg (Dilaudid) 1 mg, intravenous, Once, On Mon07/26/24 at 0933, For 1 dose Given 07/26/2024 9:38 AM BLOOD AND PLASMA LABORATORY ASSISTANT 1 mg iopromide 370 mg iodine/mL injection 100 mL (Ultravist) 100 mL, intravenous, Once in imaging, contrast, Starting on Mon07/26/24 at 1021, For 1 dose Given 07/26/2024 10:35 AM BLOOD AND PLASMA LABORATORY ASSISTANT 100 mL ondansetron (PF) injection 4 mg (Zofran) 4 mg, intravenous, Once, On Mon07/26/24 at 0937, For 1 dose Given 07/26/2024 9:38 AM BLOOD AND PLASMA LABORATORY ASSISTANT 4 mg sodium chloride 0.9 % flush 80 mL 80 mL, intravenous, Once in imaging, line care, Starting on Mon07/26/24 at 1021, For 1 dose Given 07/26/2024 10:35 AM BLOOD AND PLASMA LABORATORY ASSISTANT 80 mL sodium chloride 0.9 % injection 10 mL 10 mL, intravenous, As needed, line care, Starting on Mon07/26/24 at 1021 Given 07/26/2024 10:35 AM BLOOD AND PLASMA LABORATORY ASSISTANT 10 mL Given 07/26/2024 10:34 AM BLOOD AND PLASMA LABORATORY ASSISTANT 10 mL documented in this encounter Active and Recently Administered Medications Times are shown in BLOOD AND PLASMA LABORATORY ASSISTANT. Scheduled Medication Order 07/24/2024 07/25/2024 07/26/2024 HYDROmorphone [...] Depression Total Score: 22 025 7:19 PM BLOOD AND PLASMA LABORATORY ASSISTANT documented as of this encounter Care Teams Target Protection Specialist Relationship Specialty Start Date End Date Prudence Mena MPAS, P.A.-C. [address] [place] [address] [place] [address] PCP - General Internal Medicine 02/08/24 documented as of this encounter
--- OUTSIDE RECORDS SUMMARY | 2024-07-28 22:52 | XMS_ITS | Encounter Summary ---
Author Organization [facility] Address [address] [place] [address] Care Team Providers Care Matcher Name Role Phone Prudence Mena P.A.-C. Primary Care Pro vider Reason for Visit * Reason Comments Outpatient Infusion Encounter Details Date Type Department Care Team (Late st Contact Info) Description 07/27/2024 9:00 AM REVIEW APPRAISER Infusion Department of Infusion Therapy in [address] [phone] Melinda Isaac, FRED, C.N.P. [address] [place] [phone] Empyema Pleural (HCC) (Primary Dx) Social History Tobacco Use Types Packs/Day Years Used Date Smoking Tobacco: Former Cigarettes 1.5 0.1 S tarted: 06/21/2024 Passive Smoke Exposure: Past Smokeless Tobacco: Never Alcohol Use Standard Drinks/Week Comments Yes 0 (1 standard drink = 0.6 oz pur e alcohol) socially [facility] Utilities Answer Date Recorded In the [...] often do you attend oriental orthodox or roman catholic serv ices? Never 07/27/2022 Do you belong [...] Answer Date Recorded PHQ-2 Score 6 07/10/2024 [facility] of Occupat ional Health - Occupational Stress [...] Comments Blood Pressure 123/65 07/27/2024 9:18 AM REVIEW APPRAISER Pulse 110 07/27/2024 9:18 AM REVIEW APPRAISER Temperature 36.1 C (97 F) 07/27/2024 9:18 AM REVIEW APPRAISER Respiratory Rate 18 07/27/2024 9:18 AM REVIEW APPRAISER Oxygen Saturation 97% 07/27/2024 9:18 AM REVIEW APPRAISER Inhaled Oxygen Concentration - - Weight - - Height - - Body Mass Index - - documented in this encounter Plan of Treatment Upcoming Encounters Date Type Department Care Team (Late st Contact Info) Description 07/29/2024 10:00 AM REVIEW APPRAISER Infusion Department of Infusion Therapy in [address] [phone] Melinda Isaac APRN, C.N.P. [address] [place] [phone] 07/29/2024 2:20 PM REVIEW APPRAISER Office Visit Department of Community Internal Medicine in [place], [place] 300 [place] [phone] Prudence Mena MPAS, P.A.-C. 300 [place] [phone] 07/30/2024 9:00 AM REVIEW APPRAISER Infusion Department of Infusion Therapy in [address] [phone] Melinda Isaac APRN, C.N.P. [address] [place] [phone] 07/31/2024 8:00 AM REVIEW APPRAISER Infusion Department of Infusion Therapy in [address] [phone] Melinda Isaac APRN, C.N.P. [address] [place] [phone] 08/01/2024 7:00 AM REVIEW APPRAISER Infusion Department of Infusion Therapy in [address] [address] Melinda Isaac APRN, C.N.P. [address] [place] [phone] 08/02/2024 9:00 AM REVIEW APPRAISER Infusion Department of Infusion Therapy in [address] [phone] Melinda Isaac APRN, C.N.P. [address] [place] [phone] 08/02/2024 12:30 PM REVIEW APPRAISER Clinical Communication Virtual Review in [place], [place] 200 [place] [address] 08/03/2024 9:00 AM REVIEW APPRAISER Infusion Department of Infusion Therapy in [address] [phone] Melinda Isaac APRN, C.N.P. [address] [place] [phone] 08/04/2024 9:00 AM REVIEW APPRAISER Infusion Department of Infusion Therapy in [address] [phone] Melinda Isaac APRN, C.N.P. [address] [place] [phone] 08/05/2024 8:45 AM REVIEW APPRAISER Appointment Department of Radiology, [facility], in [place], [place] [address] [place] [phone] Kayleigh Small M.D. [address] [place] [phone] 08/05/2024 9:00 AM REVIEW APPRAISER Infusion Department of Infusion Therapy in [address] [phone] Melinda Isaac APRN, C.N.P. [address] [place] [phone] 08/05/2024 11:00 AM REVIEW APPRAISER Office Visit Section of Infectious Diseases in [place], [place] [address] [place] [phone] Kayleigh Small M.D. [address] [place] [phone] 08/06/2024 9:00 AM REVIEW APPRAISER Infusion Department of Infusion Therapy in [address] [phone] Melinda Isaac APRN, C.N.P. [address] [place] [phone] 08/07/2024 9:00 AM REVIEW APPRAISER Infusion Department of Infusion Therapy in [address] [phone] Melinda Isaac APRN, C.N.P. [address] [place] [phone] 08/08/2024 9:00 AM REVIEW APPRAISER Infusion Department of Infusion Therapy in [address] [phone] Melinda Isaac APRN, C.N.P. [address] [place] [phone] 08/09/2024 9:00 AM REVIEW APPRAISER Infusion Department of Infusion Therapy in [address] [address] Melinda Isaac APRN, C.N.P. [address] [place] [phone] 08/10/2024 9:00 AM REVIEW APPRAISER Infusion Department of Infusion Therapy in [address] [phone] Melinda Isaac APRN, C.N.P. [address] [place] [phone] 08/11/2024 9:00 AM REVIEW APPRAISER Infusion Department of Infusion Therapy in [address] [address] Melinda Isaac APRN, C.N.P. [address] [place] [phone] 08/12/2024 9:00 AM REVIEW APPRAISER Infusion Department of Infusion Therapy in [address] [phone] Melinda Isaac APRN, C.N.P. [address] [place] [phone] 08/13/2024 8:30 AM REVIEW APPRAISER Infusion Department of Infusion Therapy in [address] [address] Melinda Isaac APRN, C.N.P. [address] [place] [phone] 08/14/2024 9:00 AM REVIEW APPRAISER Infusion Department of Infusion Therapy in [address] [address] Melinda Isaac APRN, C.N.P. [address] [place] [phone] 08/15/2024 9:00 AM REVIEW APPRAISER Infusion Department of Infusion Therapy in [address] [phone] Melinda Isaac APRN, C.N.P. [address] [place] [phone] 08/16/2024 9:00 AM REVIEW APPRAISER Infusion Department of Infusion Therapy in [address] [phone] Melinda Isaac APRN, C.N.P. [address] [place] [phone] 08/17/2024 9:00 AM REVIEW APPRAISER Infusion Department of Infusion Therapy in [address] [phone] Melinda Isaac APRN, C.N.P. [address] [place] [phone] 08/18/2024 9:00 AM REVIEW APPRAISER Infusion Department of Infusion Therapy in [address] [phone] Melinda Isaac APRN, C.N.P. [address] [place] [phone] documented as of this encounter Visit Diagnoses [...] infection, community acquired Given 07/27/2024 9:23 AM REVIEW APPRAISER 2 g sodium chloride 0.9 % injection 10-30 mL 10-30 mL, intravenous, As needed, line care, Starting on 07/27/24 at 0915, Prior to and following infusion, between multiple consecutive infusions.10 mL to each lumen.Indications:Empyema Pleural (HCC) Given 07/27/2024 9:29 AM REVIEW APPRAISER 10 mL Given 07/27/2024 9:23 AM REVIEW APPRAISER 10 mL documented in this encounter Additional Health Concerns Assessment Noted Time PHQ-9 Depression Total Score: 22 025 7:19 PM REVIEW APPRAISER documented as of this encounter Care Teams Matcher Relationship Specialty Start Date End Date Prudence Mena MPAS, P.A.-C. [address] [place] [address] [place] [address] PCP - General Internal Medicine 02/08/24 documented as of this encounter
--- OUTSIDE RECORDS SUMMARY | 2024-07-28 22:52 | XMS_ITS | Encounter Summary ---
Author Organization [facility] Address [address] [place] [address] Care Team Providers Care Money Room Teller Name Role Phone Prudence Mena P.A.-C. Primary Care Pro vider Reason for Visit * Reason Comments Outpatient Infusion Rocephin Encounter Details Date Type Department Care Team (Late st Contact Info) Description 07/28/2024 9:00 AM FARM IMPLEMENT MECHANIC Infusion Department of Infusion Therapy in [address] [phone] Melinda Isaac, FRED, C.N.P. [address] [place] [phone] Empyema Pleural (HCC) (Primary Dx) Social History Tobacco Use Types Packs/Day Years Used Date Smoking Tobacco: Former Cigarettes 1.5 0.1 S tarted: 06/21/2024 Passive Smoke Exposure: Past Smokeless Tobacco: Never Alcohol Use Standard Drinks/Week Comments Yes 0 (1 standard drink = 0.6 oz pur e alcohol) socially [facility] Utilities Answer Date Recorded In the past [...] How often do you attend mosque or anabaptism serv ices? Never 07/27/2022 Do you belong [...] Score 6 07/10/2024 [facility] [place] of Occupat ional Health - Occupational Stress [...] Comments Blood Pressure 138/86 07/28/2024 9:13 AM FARM IMPLEMENT MECHANIC Pulse 112 07/28/2024 9:13 AM FARM IMPLEMENT MECHANIC Temperature 35.5 C (95.9 F) 07/28/2024 9:13 AM FARM IMPLEMENT MECHANIC Respiratory Rate 18 07/28/2024 9:13 AM FARM IMPLEMENT MECHANIC Oxygen Saturation 94% 07/28/2024 9:13 AM FARM IMPLEMENT MECHANIC Inhaled Oxygen Concentration - - Weight - - Height - - Body Mass Index - - documented in this encounter Plan of Treatment Upcoming Encounters Date Type Department Care Team (Late st Contact Info) Description 07/29/2024 10:00 AM FARM IMPLEMENT MECHANIC Infusion Department of Infusion Therapy in [address] [phone] Melinda Isaac APRN, C.N.P. [address] [place] [phone] 07/29/2024 2:20 PM FARM IMPLEMENT MECHANIC Office Visit Department of Community Internal Medicine in [place], [place] 300 [place] [phone] Prudence Mena MPAS, P.A.-C. 300 [place] [phone] 07/30/2024 9:00 AM FARM IMPLEMENT MECHANIC Infusion Department of Infusion Therapy in [address] [phone] Melinda Isaac APRN, C.N.P. [address] [place] [phone] 07/31/2024 8:00 AM FARM IMPLEMENT MECHANIC Infusion Department of Infusion Therapy in [address] [address] Melinda Isaac APRN, C.N.P. [address] [place] [phone] 08/01/2024 7:00 AM FARM IMPLEMENT MECHANIC Infusion Department of Infusion Therapy in [address] [address] Melinda Isaac APRN, C.N.P. [address] [place] [phone] 08/02/2024 9:00 AM FARM IMPLEMENT MECHANIC Infusion Department of Infusion Therapy in [address] [phone] Melinda Isaac APRN, C.N.P. [address] [place] [phone] 08/02/2024 12:30 PM FARM IMPLEMENT MECHANIC Clinical Communication Virtual Review in [place], [place] 200 [place] [address] 08/03/2024 9:00 AM FARM IMPLEMENT MECHANIC Infusion Department of Infusion Therapy in [address] [address] Melinda Isaac APRN, C.N.P. [address] [place] [phone] 08/04/2024 9:00 AM FARM IMPLEMENT MECHANIC Infusion Department of Infusion Therapy in [address] [phone] Mleinda Isaac APRN, C.N.P. [address] [place] [phone] 08/05/2024 8:45 AM FARM IMPLEMENT MECHANIC Appointment Department of Radiology, [facility], in [place], [place] [address] [place] [phone] Kayleigh Small M.D. [address] [place] [phone] 08/05/2024 9:00 AM FARM IMPLEMENT MECHANIC Infusion Department of Infusion Therapy in [address] [phone] Melinda Isaac APRN, C.N.P. [address] [place] [phone] 08/05/2024 11:00 AM FARM IMPLEMENT MECHANIC Office Visit Section of Infectious Diseases in [place], [place] [address] [place] [phone] Kayleigh Small M.D. [address] [place] [phone] 08/06/2024 9:00 AM FARM IMPLEMENT MECHANIC Infusion Department of Infusion Therapy in [address] [phone] Melinda Isaac APRN, C.N.P. [address] [place] [phone] 08/07/2024 9:00 AM FARM IMPLEMENT MECHANIC Infusion Department of Infusion Therapy in [address] [address] Melinda Isaac APRN, C.N.P. [address] [place] [phone] 08/08/2024 9:00 AM FARM IMPLEMENT MECHANIC Infusion Department of Infusion Therapy in [address] [phone] Melinda Isaac APRN, C.N.P. [address] [place] [phone] 08/09/2024 9:00 AM FARM IMPLEMENT MECHANIC Infusion Department of Infusion Therapy in [address] [phone] Melinda Isaac APRN, C.N.P. [address] [place] [phone] 08/10/2024 9:00 AM FARM IMPLEMENT MECHANIC Infusion Department of Infusion Therapy in [address] [phone] Melinda Isaac APRN, C.N.P. [address] [place] [phone] 08/11/2024 9:00 AM FARM IMPLEMENT MECHANIC Infusion Department of Infusion Therapy in [address] [phone] Melinda Isaac APRN, C.N.P. [address] [place] [phone] 08/12/2024 9:00 AM FARM IMPLEMENT MECHANIC Infusion Department of Infusion Therapy in [address] [phone] Melinda Isaac APRN, C.N.P. [address] [place] [phone] 08/13/2024 8:30 AM FARM IMPLEMENT MECHANIC Infusion Department of Infusion Therapy in [address] [address] Melinda Isaac APRN, C.N.P. [address] [place] [phone] 08/14/2024 9:00 AM FARM IMPLEMENT MECHANIC Infusion Department of Infusion Therapy in [address] [address] Melinda Isaac APRN, C.N.P. [address] [place] [phone] 08/15/2024 9:00 AM FARM IMPLEMENT MECHANIC Infusion Department of Infusion Therapy in [address] [address] Melinda Isaac APRN, C.N.P. [address] [place] [phone] 08/16/2024 9:00 AM FARM IMPLEMENT MECHANIC Infusion Department of Infusion Therapy in [address] [address] Melinda Isaac APRN, C.N.P. [address] [place] [phone] 08/17/2024 9:00 AM FARM IMPLEMENT MECHANIC Infusion Department of Infusion Therapy in [address] [address] Melinda Isaac APRN, C.N.P. [address] [place] [phone] 08/18/2024 9:00 AM FARM IMPLEMENT MECHANIC Infusion Department of Infusion Therapy in [address] [phone] Melinda Isaac APRN, C.N.P. [address] [place] [phone] documented as of this encounter Visit Diagnoses [...] infection, community acquired Given 07/28/2024 9:14 AM FARM IMPLEMENT MECHANIC 2 g sodium chloride 0.9 % injection 10-30 mL 10-30 mL, intravenous, As needed, line care, Starting on 07/28/24 at 0905, Prior to and following infusion, between multiple consecutive infusions.10 mL to each lumen.Indications:Empyema Pleural (HCC) Given 07/28/2024 9:23 AM FARM IMPLEMENT MECHANIC 10 mL Given 07/28/2024 9:15 AM FARM IMPLEMENT MECHANIC 10 mL documented in this encounter Additional Health Concerns Assessment Noted Time PHQ-9 Depression Total Score: 22 025 7:19 PM FARM IMPLEMENT MECHANIC documented as of this encounter Care Teams Money Room Teller Relationship Specialty Start Date End Date Prudence Mena MPAS, P.A.-C. 300 [place] [phone] PCP - General Internal Medicine 02/08/24 documented as of this encounter
== END 2024-07-28 22:46 | disposition home or self-care (01) ==
LOC: ED 22:43
PROVIDERS: Emergency Provider Emergency Medicine; PCP Internal Medicine
DX: G89.18 Other acute postprocedural pain (principal)
CPT/HCPCS: 99282; 99283

== ENCOUNTER 2024-08-28 18:10 | Emergency (ER) | payer BC, SELFPAY ==
[2024-08-28] VITALS (23 sets, daily range): BP systolic 131–160; BP diastolic 93–111; PULSE 81–108; RESP 16–18; TEMP 35.7–36.8; O2SAT 95–100; BMI 31.8
--- OUTSIDE RECORDS SUMMARY | 2024-08-28 18:13 | XMS_ITS | Encounter Summary ---
Author Organization [facility] Address [address] [place] [address] Care Team Providers Care Tire Center Supervisor Name Role Phone Prudence Mena P.A.-C. Primary Care Pro vider Reason for Visit * Reason Onset Date Comments Med Refill 08/23/2024 Encounter Details Date Type Department Care Team (Late st Contact Info) Description 08/23/2024 Refill Department of Community Internal Medicine in [place], [place] 300 [place] [address] Prudence Mena MPAS, P.ADmitry-CDmitry 300 [place] [address] Med Refill Social History Tobacco Use Types Packs/Day Years Used Date Smoking Tobacco: Former Cigarettes 1.5 0.2 S tarted: 06/21/2024 Passive Smoke Exposure: Past Smokeless Tobacco: Never Alcohol Use Standard Drinks/Week Comments Yes 0 (1 standard drink = 0.6 oz pur e alcohol) socially [facility] Utilities Answer Date Recorded In [...] How often do you attend zoroastrian or catholic serv ices? Never 07/27/2022 Do you [...] Answer Date Recorded PHQ-2 Score 6 07/10/2024 [facility] of Occupat ional Health - [...] encounter Miscellaneous Notes * Telephone Encounter - Ayala Wheeler R.N. - 08/28/2024 3:18 PM CST Left message for patient to return call to clinic. Does the patient need to speak to nursing? yes Action needed: Please relay message from Prudence Mena: Please notify the patient that I reviewed clinical encounter with thoracic surgery and oxycodone recommendations. I agree with the recommendation to transition oxycodone to bedtime prescription as needed. It looks like other interventions for her pain were provided by thoracic surgery team. I gave a short refill of oxycodone of 5 tablets.I will see her back in clinic later this week. SIGN INSTALLER documented in this encounter Plan of Treatment Upcoming Encounters Date Type Department Care Team (Late st Contact Info) Description 08/30/2024 9:00 AM NEON SIGN INSTALLER Office Visit Department of Community Internal Medicine in [place], [place] 300 [place] [phone] Prudence Mena MPAS, P.A.-C. 300 [place] [phone] documented as of this encounter Visit Diagnoses Not on filedocumented in this encounter Additional Health Concerns Assessment Noted Time PHQ-9 Depression Total Score: 22 025 7:19 PM NEON SIGN INSTALLER documented as of this encounter Care Teams Tire Center Supervisor Relationship Specialty Start Date End Date Prudence Mena MPAS, P.A.-C. 300 [place] [phone] PCP - General Internal Medicine 02/08/24 documented as of this encounter
--- OUTSIDE RECORDS SUMMARY | 2024-08-28 18:13 | XMS_ITS | Clinical Summary ---
Author Organization [facility] Address [facility] [place] [address] Care Team Providers Care Historical Society Director Name Role Phone Kevin Berrios MD Unavailable [phone] Claudia Morillo MD Primary Care Provider [phone] Allergies Active Allergy Reactions Criticality Noted Date [...] major depressive disorder, unspecified depression episode severity TAKE 1 TABLET(100 MG) BY MOUTH EVERY [...] major depressive disorder, unspecified depression episode severity Take 1 Tablet (100 mg) by mouth every morning. 30 Tablet 2 01/26/20 21 Active gabapentin (NEURONTIN) 300 mg capsuleIndication s:Anxiety Take 3 Capsules (900 mg) by mouth 3 times daily. 270 Capsule 2 01/26/20 21 Active mirtazapine (REMERON) 30 mg tabletIndications :Episode of recurrent major depressive disorder, unspecified depression episode severity,Anxiety, Psychophysiologic al insomnia TAKE 1 TABLET(30 MG) BY MOUTH AT BEDTIME 30 Tablet 2 01/26/20 21 Active lisdexamfetamine (Vyvanse) 50 mg capsuleIndication s:Attention deficit hyperactivity disorder (ADHD), predominantly inattentive type Take 1 Capsule (50 mg) by mouth once daily. 30 Capsule 02/21/20 21 Active lurasidone (LATUDA) 20 mg tabletIndications :Episode of recurrent major depressive disorder, unspecified depression episode severity Take 1 Tablet (20 mg) by mouth [...] food with a 150 mg capSULE. 02/23/20 22 Active Active Problems Problem Noted Date Diagnosed [...] Overview (07/04/2017): 06/13/17 Signed .Kristen Landeros DNP, LESSON INSTRUCTOR, GOVERNMENT CONTRACTS MANAGER/psyciatry/hc Acute postoperative pain Acute postoperative abdominal pain [...] 8:33 PM CDT [facility] Comment:HIV-1 p24 and HIV-1/ HIV-2 Ab not detected. Blood BLOOD SPECIMEN / Unknown Butterfly / Unknown 11/11/2020 1:29 PM CDT 11/11/2020 1:29 PM CDT us Claudia Morillo MD SEND OUTS Final Resul t [facility] [address] [place] [address], * ANTI HCV (03/20/2019 2:40 PM CDT) HEPATITIS C ANTIBODY Non-React salomón Non-React salomón 03/21/2019 11:42 PM CDT [facility] Comment:Antibodies to HCV no t detected; does not exclude the possibility of exposure to HCV. Blood BLOOD SPECIMEN / Unknown Venipuncture / Unknown 03/20/2019 2:40 PM CDT 03/20/2019 2:40 PM CDT us lCaudia Morillo MD SEND OUTS Final Resul t Performing Organization Address City/[facility]/ZIP Co de Phone Number [facility] [address] [place] [address], from Last 3 Months or Most Recently Relevant to Health Maintenance Insurance [facility] Advance Directives * Full Code (Latest [...] 3:10 PM 04/16/2019 8:58 PM Care Teams Historical Society Director Relationship Specialty Start Date End Date Claudia Morillo MD [address] [place] [address] PCP - General Family Practice 03/04/22 Kevin Berrios MD Surgery - Urology 02/27/20
--- OUTSIDE RECORDS SUMMARY | 2024-08-28 18:13 | XMS_ITS | Encounter Summary ---
Author Organization [facility] Address [address] [place] [address] Care Team Providers Care Auto Air Conditioning Installer Name Role Phone Prudence Mena P.A.-C. Primary Care Pro vider Encounter Details Date Type Department Care Team (Late st Contact Info) Description 08/21/2024 Results Follow-Up Department of Community Internal Medicine in [place], [place] 300 [place] [address] Prudence Mena MPAS P.A.-C. 300 [place] [phone] CBC with Differential, Blood Social History Tobacco Use Types Packs/Day Years Used Date Smoking Tobacco: Former Cigarettes 1.5 0.2 S tarted: 06/21/2024 Passive Smoke Exposure: Past Smokeless Tobacco: Never Alcohol Use Standard Drinks/Week Comments Yes 0 (1 standard drink = 0.6 oz pur e alcohol) socially [facility] Utilities Answer Date Recorded In the past 12 months has [employer], gas, oil, or water [employer] threatened to shut off services in your [...] How often do you attend baptist or restoration serv ices? Never 07/27/2022 Do [...] Answer Date Recorded PHQ-2 Score 6 07/10/2024 [facility] of Occupat ional Health - Occupational [...] st Contact Info) Description 08/30/2024 9:00 AM MACHINE GUIDE BASE WINDER Office Visit Department of Community Internal Medicine in [place], [place] 300 [facility] [place] [address] Prudence Mena MPAS, P.A.-C. 300 [place] [address] documented as of this encounter Visit Diagnoses Not on filedocumented in this encounter Additional Health Concerns Assessment Noted Time PHQ-9 Depression Total Score: 22 025 7:19 PM MACHINE GUIDE BASE WINDER documented as of this encounter Care Teams Auto Air Conditioning Installer Relationship Specialty Start Date End Date Prudence Mena MPAS, P.A.-C. [address] [place] [address] DESHAUN Orta [address] PCP - General Internal Medicine 02/08/24 documented as of this encounter
--- OUTSIDE RECORDS SUMMARY | 2024-08-28 18:13 | XMS_ITS | Encounter Summary ---
Author Organization [facility] Address [address] [place] [address] Care Team Providers Care Campground Cleaning Attendant Name Role Phone Prudence Mena P.A.-C. Primary Care Pro vider Reason for Visit * Reason Onset Date Comments Med Refill 08/16/2024 Encounter Details Date Type Department Care Team (Late st Contact Info) Description 08/16/2024 Refill Department of Community Internal Medicine in [place], [place] [address] [place] [address] Prudence Mena MPAS, P.ADmitry-CDmitry [address] [place] [address] Med Refill Social History Tobacco Use Types Packs/Day Years Used Date Smoking Tobacco: Former Cigarettes 1.5 0.2 S tarted: 06/21/2024 Passive Smoke Exposure: Past Smokeless Tobacco: Never Alcohol Use Standard Drinks/Week Comments Yes 0 (1 standard drink = 0.6 oz pur e alcohol) socially [facility] Utilities Answer Date Recorded In the [...] How often do you attend christian or adventism serv ices? Never 07/27/2022 Do [...] Answer Date Recorded PHQ-2 Score 6 07/10/2024 [facility] Occupat ional Health - Occupational [...] st Contact Info) Description 08/30/2024 9:00 AM OIL PUMPER Office Visit Department of Community Internal Medicine in [place], [place] [address] [place] [address] Prudence Mena MPAS, P.A.-C. 300 [facility] [place] [address] documented as of this encounter Visit Diagnoses Not on filedocumented in this encounter Additional Health Concerns Assessment Noted Time PHQ-9 Depression Total Score: 22 025 7:19 PM OIL PUMPER documented as of this encounter Care Teams Campground Cleaning Attendant Relationship Specialty Start Date End Date Prudence Mena MPAS, P.A.-C. 300 [facility] [place] [address] PCP - General Internal Medicine 02/08/24 documented as of this encounter
--- OUTSIDE RECORDS SUMMARY | 2024-08-28 18:13 | XMS_ITS | Encounter Summary ---
Author Organization [facility] Address [address] [place] [address] Care Team Providers Care Academic Hospitalist Name Role Phone Prudence Mena P.A.-C. Primary Care Pro vider Encounter Details Date Type Department Care Team (Late st Contact Info) Description 08/12/2024 8:20 AM PROCESS SAFETY MANAGEMENT ENGINEER Ancillary Procedure Department of Family Medicine Social History Tobacco Use Types Packs/Day Years Used Date Smoking Tobacco: Former Cigarettes 1.5 0.2 S tarted: 06/21/2024 Passive Smoke Exposure: Past Smokeless Tobacco: Never Alcohol Use Standard Drinks/Week Comments Yes 0 (1 standard drink = 0.6 oz pur e alcohol) socially [facility] Utilities Answer Date Recorded In the past 12 months has e electric, gas, oil, or water [facility] threatened to shut off services in your [...] Never 07/27/2022 How often do you attend caodaism or mormon serv ices? Never 07/27/2022 Do you belong to any clubs o r organizations such as caodaism groups, unions, fraternal or athletic groups, or [...] st Contact Info) Description 08/30/2024 9:00 AM PROCESS SAFETY MANAGEMENT ENGINEER Office Visit Department of Community Internal Medicine in [place], [place] [address] [place] [phone] Prudence Mena MPAS, P.A.-C. 300 [place] [phone] documented as of this encounter Procedures Procedure Name Priority Date/Time Associated Diagnosis Comments FAMILY MEDICINE IMAGE EXAM Routine 08/12/2024 8:19 AM PROCESS SAFETY MANAGEMENT ENGINEER documented in this encounter Results * Chest-Family Medicine Image Exam (08/12/2024 8:19 AM PROCESS SAFETY MANAGEMENT ENGINEER) 08/12/2024 8:17 AM PROCESS SAFETY MANAGEMENT ENGINEER Narrative [facility]IMS - 08/12/2024 8:19 AM PROCESS SAFETY MANAGEMENT ENGINEER This order has been created and auto-finalized to support the import of images acquired without order. The clinical documentation to support these images can be found on the encounter that produced images. us Provider Not In System IMG NON RAD IMAGING PROCE DURES Final Result [facility] NA documented in this encounter Visit Diagnoses Not on filedocumented in this encounter Additional Health Concerns Assessment Noted Time PHQ-9 Depression Total Score: 22 025 7:19 PM PROCESS SAFETY MANAGEMENT ENGINEER documented as of this encounter Care Teams Academic Hospitalist Relationship Specialty Start Date End Date Prudence Mena MPAS, P.A.-C. [address] [place] [phone] PCP - General Internal Medicine 02/08/24 documented as of this encounter
--- OUTSIDE RECORDS SUMMARY | 2024-08-28 18:13 | XMS_ITS | Encounter Summary ---
Author Organization [facility] Address [address] [place] [address] Care Team Providers Care Director Fundraising Name Role Phone Prudence Mena P.A.-CDmitry Primary Care Pro vider Encounter Details Date Type Department Care Team (Latest Contact Info) Description 08/21/2024 8:34 AM EXERCISE INSTRUCTOR - 08/21/2024 11:59 PM [facility] Hospital Encounter Department of Laboratory Medicine in [place], [place] [address] [place] [address] Prudence Mena MPAS, P.A.-CDmitry [address] [place] [address] Anemia Discharge Disposition: Home or Self Care Social History Tobacco Use Types Packs/Day Years Used Date Smoking Tobacco: Former Cigarettes 1.5 0.2 S tarted: 06/21/2024 Passive Smoke Exposure: Past Smokeless Tobacco: Never Alcohol Use Standard Drinks/Week Comments Yes 0 (1 standard drink = 0.6 oz pur e alcohol) socially [facility] Utilities Answer Date Recorded In the past 12 months has e electric, gas, oil, or water [employer] threatened to shut off services in your [...] How often do you attend judaism or moravian serv ices? Never 07/27/2022 Do you belong [...] Answer Date Recorded PHQ-2 Score 6 07/10/2024 [facility] [place] of Occupat ional Health - Occupational Stress [...] 6 (six) hours as needed for pain. 0 albuterol 2.5 mg /3 mL nebulizer solution Inhale 3 mL (2.5 mg total) by nebulization every 4 (four) hours as needed for wheezing or shortness of breath. 75 mL 2 4 buPROPion XL (WELLBUTRIN XL) 150 mg 24 hr tablet Take 1 tablet (150 mg total) by mouth every morning. Take with 300 mg tablet for a total daily dose of 450 mg. 90 tablet 2 3 buPROPion XL (WELLBUTRIN XL) 300 mg 24 hr tablet Take 1 tablet (300 mg total) by mouth every morning. Take with 150 mg tablet for a total daily dose of 450 mg daily. 90 tablet 2 3 cholecalciferol (VITAMIN D3) 50 mcg (2,000 Unit) capsule Take 50 mcg by mouth daily. 3 dextroamphetamine sulfate (Dexedrine Spansule) 15 mg ER capsule Take 1 capsule by mouth every morning. 4 dextroamphetamine-a mphetamine (ADDERALL) 10 mg tablet Take 1 tablet by mouth between 12pm and 2pm daily* 4 DME CPAPIndications:Obs tructive Sleep Apnea Adult DME Order 1 each 4 DULoxetine (CYMBALTA) [address] capsule Take 60 mg by mouth every morning. 3 elagolix (Orilissa) 150 mg tablet tablet Take 1 tablet (150 mg total) by mouth daily. 30 tablet 11 3 estradioL (ESTRACE) 0.1 mg/g (0.01%) vaginal cream Insert 1 g into the vagina 3 (three) times a week. Nightly for first week. 42 g 3 2 fluticasone propion-salmeteroL (Advair HFA) 115-21 mcg/actuation inhaler Inhale 2 puffs 2 (two) times a day. 12 g 3 3 guaiFENesin (Mucinex) 600 mg 12 hr tablet Take 1,200 mg by mouth 2 (two) times a day. ipratropium-albuter oL (DuoNeb) 0.5-2.5 mg/3 mL nebulizer solution Inhale 3 mL by nebulization 4 (four) times a day as needed for shortness of breath. 180 mL 3 4 ketoconazole (Nizoral) 2 % cream Apply 1 Application topically daily. Apply to affected area. 30 g 5 lidocaine (Lidoderm) 5 % adhesive patch,medicated Place 1 patch on the skin daily. Apply to painful area 12 hours per day, remove for 12 hours. 10 patch 5 lisinopriL 10 mg tablet Take 1 tablet (10 mg total) by mouth daily. 90 tablet 3 4 LORazepam (Ativan) 0.5 mg tablet Take 0.5 mg by mouth daily as needed for anxiety. 4 multivitamin capsule Take 1 capsule by mouth daily. nystatin (Nystop) 100,000 unit/gram powder Apply 1 Application topically 3 (three) times a day. Apply to affected area. 30 g 1 5 ondansetron ODT (Zofran-ODT) 4 mg disintegrating tablet Dissolve 1 tablet (4 mg total) in the mouth every 8 (eight) hours as needed for nausea or vomiting. 20 tablet 5 polyethylene glycol (MIRALAX) 17 gram/dose oral powder Take 17 g by mouth daily. Dissolve each 17 g dose in 240 mL (8 ounces) of beverage. 850 g 3 3 pregabalin (Lyrica) 200 mg capsuleIndications: Fibromyalgia Take 1 capsule (200 mg total) by mouth 3 (three) times a day. 90 capsule 3 4 traZODone (DESYREL) 50 mg tablet TAKE 1-4 TABLETS BY MOUTH ONCE DAILY AT BEDTIME. 2 Ventolin HFA 90 mcg/actuation inhaler INHALE 2 PUFFS EVERY 4 HOURS NEEDED FOR WHEEZING OR SHORTNESS OF BREATH. 54 g 3 4 Vraylar 4.5 mg capsule Take 4.5 mg by mouth at bedtime. 3 methocarbamoL (Robaxin) 500 mg tablet Take 1 tablet (500 mg total) by mouth 3 (three) times a day as needed for muscle spasms. 45 tablet 5 08/27/19 25 oxyCODONE (Roxicodone) 5 mg immediate release tabletIndications:A cute Pain Take 1.5 tablets (7.5 mg total) by mouth every 4 (four) hours as needed for pain Indication: Acute Pain. 27 tablet 5 08/23/19 25 documented as of this encounter Plan of Treatment Upcoming Encounters Date Type Department Care Team (Late st Contact Info) Description 08/30/2024 9:00 AM EXERCISE INSTRUCTOR Office Visit Department of Community Internal Medicine in [place], [place] 300 [facility] [place] [phone] Prudence Mena MPAS, P.A.-C. 300 [facility] [place] [phone] documented as of this encounter Procedures Procedure Name Priority Date/Time Associated Diagnosis Comments CBC WITH DIFFERENTIAL, B Routine 08/21/2024 8:46 AM EXERCISE INSTRUCTOR Anemia documented in this encounter Results * (ABNORMAL) CBC with Differential, Blood (08/21/2024 8:46 AM EXERCISE INSTRUCTOR) Hemoglobin 10.9(L) 11.6 - 15.0 g/dL 08/21/2024 8:55 AM EXERCISE INSTRUCTOR FB60 Hematocrit 35.4(L) 35.5 - 44.9 % 08/21/2024 8:55 AM EXERCISE INSTRUCTOR FB60 Erythrocytes 4.28 3.92 - 5.13 x10(12)/L 08/21/2024 8:55 AM EXERCISE INSTRUCTOR FB60 MCV 82.7 78.2 - 97.9 fL 08/21/2024 8:55 AM EXERCISE INSTRUCTOR FB60 RBC Distrib Width 16.6(H) 12.2 - 16.1 % 08/21/2024 8:55 AM EXERCISE INSTRUCTOR FB60 Platelet Count 634(H) 157 - 371 x10(9)/L 08/21/2024 8:55 AM EXERCISE INSTRUCTOR FB60 Leukocytes 10.5(H) 3.4 - 9.6 x10(9)/L 08/21/2024 8:55 AM EXERCISE INSTRUCTOR FB60 Neutrophils 8.01(H) 1.56 - 6.45 x10(9)/L 08/21/2024 8:55 AM EXERCISE INSTRUCTOR FB60 Lymphocytes 1.40 0.95 - 3.07 x10(9)/L 08/21/2024 8:55 AM EXERCISE INSTRUCTOR FB60 Monocytes 0.58 0.26 - 0.81 x10(9)/L 08/21/2024 8:55 AM EXERCISE INSTRUCTOR FB60 Eosinophils 0.47 0.03 - 0.48 x10(9)/L 08/21/2024 8:55 AM EXERCISE INSTRUCTOR FB60 Basophils <0.04 0.01 - 0.08 x10(9)/L 08/21/2024 8:55 AM EXERCISE INSTRUCTOR FB60 Blood (Blood, Venous) 08/21/2024 8:46 AM EXERCISE INSTRUCTOR 08/21/2024 8:47 AM EXERCISE INSTRUCTOR us Prudence TO, P.A.-C. LAB BLOOD ADD-ON Final Result [facility] [address] [place] [address], [facility] FB60 [facility] in [place] [address] [place] [address] documented in this encounter Visit Diagnoses Diagnosis Anemia documented in this encounter Additional Health Concerns Assessment Noted Time PHQ-9 Depression Total Score: 22 025 7:19 PM EXERCISE INSTRUCTOR documented as of this encounter Care Teams Director Fundraising Relationship Specialty Start Date End Date Prudence Mena MPAS, P.A.-C. [address] [place] [address] PCP - General Internal Medicine 02/08/24 documented as of this encounter
--- OUTSIDE RECORDS SUMMARY | 2024-08-28 18:13 | XMS_ITS | Encounter Summary ---
Author Organization [facility] Address [address] [place] [address] Care Team Providers Care Bundle Cutter Name Role Phone Prudence Mena P.A.-C. Primary Care Pro vider Encounter Details Date Type Department Care Team (Latest Contact Info) Description 08/14/2024 Results Follow-Up Department of Family Medicine, [facility], in [place], [place] [address] [place] [address] Carmine Carrasco P.A.-C. 300 [place] [phone] Bacterial Culture, Aerobic + Susceptibility Social History Tobacco Use Types Packs/Day Years Used Date Smoking Tobacco: Former Cigarettes 1.5 0.2 S tarted: 06/21/2024 Passive Smoke Exposure: Past Smokeless Tobacco: Never Alcohol Use Standard Drinks/Week Comments Yes 0 (1 standard drink = 0.6 oz pur e alcohol) socially [facility] Utilities Answer Date Recorded In the past 12 months has e [employer], gas, oil, or water [employer] threatened to shut off services in [...] How often do you attend orthodoxy or oriental orthodox serv ices? Never 07/27/2022 [...] Answer Date Recorded PHQ-2 Score 6 07/10/2024 [facility] of Occupat ional Health - Occupational Stress [...] st Contact Info) Description 08/30/2024 9:00 AM SUCTION ROLLER Office Visit Department of Community Internal Medicine in [place], [place] [address] [place] [address] Prudence Mena MPAS, P.A.-C. [address] [place] [address] documented as of this encounter Visit Diagnoses Not on filedocumented in this encounter Additional Health Concerns Assessment Noted Time PHQ-9 Depression Total Score: 22 025 7:19 PM SUCTION ROLLER documented as of this encounter Care Teams Bundle Cutter Relationship Specialty Start Date End Date Prudence Mena MPAS, P.A.-C. [address] [place] [address] [place] [phone] PCP - General Internal Medicine 02/08/24 documented as of this encounter
--- OUTSIDE RECORDS SUMMARY | 2024-08-28 18:13 | XMS_ITS ---
Author Organization [facility] Address [address] [place] [address] Care Team Providers Care Connie Cleaner Name Role Phone Prudence Mena P.A.-C. Primary Care Pro vider Adult OPAT Service Episode Status:Closed (Closed) Start date:07/18/2024 Enrollment date:07/20/2024 End date:08/06/2024 Close reason:Therapy Completed Related program episode:OPAT/COpAT Program (Closed) Continued Care and Services Coordination
--- OUTSIDE RECORDS SUMMARY | 2024-08-28 18:13 | XMS_ITS | Encounter Summary ---
Author Organization [facility] Address [address] [place] [address] Care Team Providers Care Construction Secretary Name Role Phone Prudence Mena P.A.-C. Primary Care Pro vider Reason for Referral * Outpatient (Routine) - Closed Specialty Diagnoses / Procedures Referred By Contac t Referred To Contact Diagnoses Empyema Pleural (HCC) Procedures DX Chest AP or PA and Lateral 2 Views Melinda Isaac APRN, C.N.P. [address] [place] [address] Phone: tel: fax: [facility] Referral ID Status Reason Start Date Expiration Date Visits Re quested Visits Authorized [id number] Closed 07/19/2024 07/19/2025 1 1 R DESIGN ENGINEER Reason for Visit * Outpatient (Routine) - Closed Specialty Diagnoses / Procedures Referred By Contac t Referred To Contact Diagnoses Empyema Pleural (HCC) Procedures DX Chest AP or PA and Lateral 2 Views Melinda Isaac APRN, C.N.P. [address] [place] [phone] Phone: tel: fax: [facility] Referral ID Status Reason Start Date Expiration Date Visits Re quested Visits Authorized [id number] Closed 07/19/2024 07/19/2025 1 1 Encounter Details Date Type Department Care Team (Latest Contact Info) Description 08/27/2024 10:09 AM SOLAR DESIGN ENGINEER - 08/27/2024 11:59 PM SOLAR DESIGN ENGINEER Hospital Encounter Department of Radiology, [facility], in [place], [place] [address] [place] [phone] Melinda Isaac, FRED, C.N.P. [address] [place] [address] Empyema Pleural (HCC) Discharge Disposition: Home or Self Care Social History Tobacco Use Types Packs/Day Years Used Date Smoking Tobacco: Former Cigarettes 1.5 0.2 S tarted: 06/21/2024 Passive Smoke Exposure: Past Smokeless Tobacco: Never Alcohol Use Standard Drinks/Week Comments Yes 0 (1 standard drink = 0.6 oz pur e alcohol) socially [facility] Utilities Answer Date Recorded In the past 12 months has e [employer], gas, oil, or water [employer] threatened to shut off services in your [...] How often do you attend orthodox or shinto serv ices? Never 07/27/2022 Do [...] Date Recorded PHQ-2 Score 6 07/10/2024 [facility] of Occupat ional [facility] - Occupational Stress Questionnaire Answer Date [...] Answer Date Recorded Employment status Temporarily disabled 4 Housing Stability Answer Date Recorded What is [...] this encounter Medications at Time of Discharge methocarbamoL (Robaxin) 500 mg tablet Take 1 tablet (500 mg total) by mouth 3 (three) times a day as needed for muscle spasms. 45 tablet 5 acetaminophen (TYLENOL) 500 mg tablet Take 1,000 [...] for nausea or vomiting. 20 tablet 5 oxyCODONE (Roxicodone) 5 mg immediate release tabletIndications:A cute Pain Take 1.5 tablets (7.5 mg total) by mouth at bedtime as needed for pain Indication: Acute Pain. 5 tablet 5 polyethylene glycol (MIRALAX) 17 gram/dose [...] 4.5 mg by mouth at bedtime. 3 documented as of this encounter Plan of Treatment Upcoming Encounters Date Type Department Care Team (Late st Contact Info) Description 08/30/2024 9:00 AM SOLAR DESIGN ENGINEER Office Visit Department of Community Internal Medicine in [place], [place] [address] [place] [address] Prudence Mena MPAS, P.A.-C. [address] [place] [address] documented as of this encounter Procedures Procedure Name Priority Date/Time Associated Diagnosis Comments DX CHEST AP OR PA AND LATERAL 2 VIEWS RAD - Routine (most inpatients and all outpatients) 08/27/2024 10:18 AM SOLAR DESIGN ENGINEER Empyema Pleural (HCC) documented in this encounter Results * DX Chest AP or PA and Lateral 2 Views (08/27/2024 10:18 AM SOLAR DESIGN ENGINEER) Anatomical Region Laterality Modality Chest, Thoracic RST LOS, Tho racic ARZ LOS, Thoracic FLA LOS N/A Digital Radiography Impressions 08/27/2024 10:25 AM SOLAR DESIGN ENGINEER Compared to 08/05/2024, multifocal linear subsegmental atelectasis or scarring and mild septal thickening in the left hemithorax is decreased but not resolved. Trace left pleural effusion is decreased. Improved aeration of the left lung base with decrease in previous mild patchy groundglass opacities. No new consolidation. Interval removal of right PICC. Chest otherwise negative. Narrative 08/27/2024 10:25 AM SOLAR DESIGN ENGINEER EXAM: DX CHEST AP OR PA AND LATERAL 2 VIEWS CLINICAL HISTORY: Left Decortication - Thoracoscopy, Pleurodesis (07/15/2024). Empyema Pleural. COMPARISON: Chest radiograph 08/05/2024. CT chest 07/26/2024. Procedure Note Rajwinder Hernandez M.D. - 08/27/2024 EXAM: DX CHEST AP OR PA AND LATERAL 2 VIEWS CLINICAL HISTORY: Left Decortication - Thoracoscopy, Pleurodesis(07/15/2024). Empyema Pleural. COMPARISON: Chest radiograph 08/05/2024. CT chest 07/26/2024. IMPRESSION: Compared to 08/05/2024, multifocal linear subsegmental atelectasis orscarring and mild septal thickening in the left hemithorax is decreasedbut not resolved. Trace left pleural effusion is decreased. Improvedaeration of the left lung base with decrease in previous mild patchy groundglass opacities. No newconsolidation. Interval removal of right PICC. Chest otherwise negative. us Melinda Isaac APRN, C.N.P. IMG DIAGNOSTIC IM AGING PROCEDURES Final Result documented in this encounter Visit Diagnoses Diagnosis Empyema Pleural (HCC) documented in this encounter Additional Health Concerns Assessment Noted Time PHQ-9 Depression Total Score: 22 025 7:19 PM SOLAR DESIGN ENGINEER documented as of this encounter Care Teams Construction Secretary Relationship Specialty Start Date End Date Prudence Mena MPAS, P.A.-C. [address] [place], [place] [address]marta [place] [phone] PCP - General Internal Medicine 02/08/24 documented as of this encounter
--- OUTSIDE RECORDS SUMMARY | 2024-08-28 18:13 | XMS_ITS | Encounter Summary ---
Author Organization [facility] Address [address] [place] [phone] Care Team Providers Care Accounting Manager Name Role Phone Prudence Mena P.A.-C. Primary Care Pro vider Reason for Visit * Outpatient (Routine) - Closed Specialty Diagnoses / Procedures Referred By Contac t Referred To Contact Thoracic Surgery Melinda Isaac APRN, C.N.P. [address] [place] [phone] Phone: tel: fax: [facility] Referral ID Status Reason Start Date Expiration Date Visits Re quested Visits Authorized [id number] Closed 07/19/2024 01/18/2026 1 1 Encounter Details Date Type Department Care Team (Latest Contact Info) Description 08/27/2024 11:30 AM NIGHT CLERK Office Visit Division of Thoracic Surgery in [place], [place] [address] [place] [phone] Lola Lambert APRN, C.N.P., M.S.N. [address] [place] [phone] Follow Up Examination Postoperative Visit (Primary Dx); Empyema Pleural (HCC) Social History Tobacco Use Types Packs/Day Years Used Date Smoking Tobacco: Former Cigarettes 1.5 0.2 S tarted: 06/21/2024 Passive Smoke Exposure: Past Smokeless Tobacco: Never Alcohol Use Standard Drinks/Week Comments Yes 0 (1 standard drink = 0.6 oz pur e alcohol) socially [facility] Utilities Answer Date Recorded In the past [...] How often do you attend jainism or episcopal serv ices? Never 07/27/2022 Do [...] Answer Date Recorded PHQ-2 Score 6 07/10/2024 [facility] - Occupational Stress Questionnaire Answer Date [...] as of this encounter Progress Notes * Lola Lambert APRN, C.N.P., M.S.N. - 08/27/2024 11:30 AM CST SUBJECTIVE Melinda Kumar is a 39 y.o. female who presents today for a post-operative follow up visit. She underwent left VATS decortication with Dr. Mtz on 07/15/2024 and was discharged on 07/20/2024. She continues to be followed by ID and last saw them on August 05. Operative cultures were negativeas she had already had prolonged empiric antibiotic treatment. They elected to stop the ceftriaxoneand metronidazole and switch to ongoing treatment with Augmentin 875 mg p.o. twice daily for another 10 days. She finished this on August 16. She continues to take 7.5 mg of oxycodone every 4 hours for pain, and the prescription has been renewed by her primary care provider. After further questioning, she is experiencing neuropathic pain on the left anterior and posterior chest. She does not find Tylenol or ibuprofen helpful. She already takes Lyrica for fibromyalgia. She is experiencing nausea as well. OBJECTIVE Post-Op Diagnostics EXAM: DX CHEST AP OR PA AND LATERAL 2 VIEWS CLINICAL HISTORY: Left Decortication - Thoracoscopy, Pleurodesis (07/15/2024). Empyema Pleural. COMPARISON: Chest radiograph 08/05/2024. CT chest 07/26/2024. IMPRESSION: Compared to 08/05/2024, multifocal linear subsegmental atelectasis or scarring and mild septal thickening in the left hemithorax is decreased but not resolved. Trace left pleural effusion is decreased.Improved aeration of the left lung base with decrease in previous mild patchy groundglass opacities. No new consolidation. Interval removalof right PICC. Chest otherwise negative. ASSESSMENT / PLAN #1 Follow Up Examination Postoperative Visit #2 Empyema Pleural (HCC) I have examined her incisions today. They do appears slightly erythematous, especially the one under the left breast, but does not appear infected. I have asked her to keep that incision open to airas much as possible. Appreciate her primary care provider's help in managing that. As far as ongoing pain management, we discussed that her skin and lungs are both healing nicely but that nerves takelonger to heal. Typically I would start gabapentin or Lyrica, but she is already on Lyrica for her fibromyalgia. We also discussed how fibromyalgia can amplify postoperative pain. The nausea is likely secondary to her significant oxycodone use. The interventions we came up with are as follows: -continue to use Lyrica -Ibuprofen 600 mg with food three times daily -methocarbamol 500 mg three times daily with the ibuprofen -Ice (30 mins on and 30 mins off) -lidocaine patches OTC (12 hours on and 12 hours off) -Daily 30 minute walks -discontinue acetaminophen -only use oxycodone at bedtime IF NEEDED If her neuropathic pain is not improving 3-6 months out from surgery, would be happy to refer her to the Pain Clinic for help with management. T CLERK documented in this encounter Plan of Treatment Upcoming Encounters Date Type Department Care Team (Late st Contact Info) Description 08/30/2024 9:00 AM NIGHT CLERK Office Visit Department of Community Internal Medicine in [place], [place] 300 [place] [phone] Prudence Mena MPAS, P.A.-C. 300 [place] [address] documented as of this encounter Visit Diagnoses Diagnosis Follow Up Examination Postoperative Visit- Primary Empyema Pleural (HCC) documented in this encounter Additional Health Concerns Assessment Noted Time PHQ-9 Depression Total Score: 22 025 7:19 PM NIGHT CLERK documented as of this encounter Care Teams Accounting Manager Relationship Specialty Start Date End Date Prudence Mena MPAS, P.A.-C. 300 [place] [phone] PCP - General Internal Medicine 02/08/24 documented as of this encounter
--- OUTSIDE RECORDS SUMMARY | 2024-08-28 18:13 | XMS_ITS ---
Author Organization [facility] Address [address] [place] [address] Care Team Providers Care Railroad Worker Name Role Phone Prudence Mena P.A.-C. Primary Care Pro vider OPAT/COpAT Program Status:Closed (Closed) Start date:07/18/2024 Enrollment date:07/20/2024 End date:08/06/2024 Close reason:Therapy Completed Related service episodes:Adult OPAT Service Episode (Closed) Continued Care and Services Coordination
--- OUTSIDE RECORDS SUMMARY | 2024-08-28 18:13 | XMS_ITS | Encounter Summary ---
Author Organization [facility] Address [address] [place] [phone] Care Team Providers Care Major General Name Role Phone Prudence Mena P.A.-C. Primary Care Pro vider Reason for Visit * Reason Onset Date Comments Post-op Problem 08/28/2024 Encounter Details Date Type Department Care Team (Latest Contact Info) Description 08/28/2024 Clinical Communication Division of Thoracic Surgery in [place], [place] [address] [place] [phone] Patrick Mtz M.D., Ph.D. [address] [place] [phone] Post-op Problem Social History Tobacco Use Types Packs/Day Years Used Date Smoking Tobacco: Former Cigarettes 1.5 0.2 S tarted: 06/21/2024 Passive Smoke Exposure: Past Smokeless Tobacco: Never Alcohol Use Standard Drinks/Week Comments Yes 0 (1 standard drink = 0.6 oz pur e alcohol) socially [facility] Utilities Answer Date Recorded In the past 12 months has e electric, gas, oil, or water [employer] threatened to shut off services in your [...] Never 07/27/2022 How often do you attend zoroastrianism or episcopalian serv ices? Never 07/27/2022 Do you belong to any clubs o r organizations such as zoroastrianism groups, unions, fraternal or athletic groups, or [...] Answer Date Recorded PHQ-2 Score 6 07/10/2024 [facility] of Occupat ional Health - Occupational Stress [...] encounter Miscellaneous Notes * Telephone Encounter - Kate Blum R.N. - 08/28/2024 3:42 PM HAND PACKAGER SUBJECTIVE CHIEF COMPLAINT / REASON FOR CALL Post-op Problem PLAN The following information was provided: Spoke with Melinda Kumar to return her call. She is s/p L VATS Decortication with Dr. Mtz on 07/15/2024. She is having ongoing issues with dehydration, not keeping fluids down, not urinating as of yesterday, and increase in pain. I let her know that I reviewed with Lola who saw her yesterday and she recommends going into [facility] to work things up and provide recommendations. She was agreeable to this and was appreciate of my call to confirm that was the right thing to do. Information/Education: patient/caller able to teach back The following references were used: nursing clinical judgement and provider Lola Lambert, ROLL OPERATOR, MSN PACKAGER documented in this encounter Plan of Treatment Upcoming Encounters Date Type Department Care Team (Late st Contact Info) Description 08/30/2024 9:00 AM HAND PACKAGER Office Visit Department of Community Internal Medicine in [place], [place] 300 [place] [address] Prudence Mena MPAS, P.A.-C. [address] [place] [phone] documented as of this encounter Visit Diagnoses Not on filedocumented in this encounter Additional Health Concerns Assessment Noted Time PHQ-9 Depression Total Score: 22 025 7:19 PM HAND PACKAGER documented as of this encounter Care Teams Major General Relationship Specialty Start Date End Date Prudence Mena MPAS, P.A.-C. [address] [place] [phone] PCP - General Internal Medicine 02/08/24 documented as of this encounter
--- OUTSIDE RECORDS SUMMARY | 2024-08-28 18:13 | XMS_ITS | Encounter Summary ---
Author Organization [facility] Address [address] [place] [address] Care Team Providers Care Corporate Intern Name Role Phone Prudence Mena P.A.-C. Primary Care Pro vider Reason for Referral * Outpatient (Routine) - Authorized Specialty Diagnoses / Procedures Referred By Talia galeas Referred To Contact Community Internal Medicine Prudence Mena MPAS, P.A.-C. [address] [place] [address] Phone: tel: fax: [facility] Region Referral ID Status Reason Start Date Expiration Date V isits Requested Visits Authorized [id number] Authorized 08/21/2024 02/20/2026 1 1 STRAPPER Reason for Visit * Reason Comments Follow-up 2 week from surgery * Outpatient (Routine) - Closed Specialty Diagnoses / Procedures Referred By Contac t Referred To Contact [facility] Internal Medicine Purdence Mena MPAS, P.AMieshaCDmitry [address] [place] [address] Phone: tel: fax: [facility] Region Referral ID Status Reason Start Date Expiration Date Visits Re quested Visits Authorized [id number] Closed 08/12/2024 02/11/2026 1 1 Encounter Details Date Type Department Care Team (Late st Contact Info) Description 08/21/2024 8:00 AM COIL STRAPPER Office Visit Department of Community Internal Medicine in [place], [place] 300 [facility] [place] [phone] Prudence Mena MPAS, P.A.-C. 300 [facility] [place] [phone] Empyema Pleural (HCC) (Primary Dx); Candidiasis Intertrigo; Anemia; Stool Positive Occult Blood Social History Tobacco Use Types Packs/Day Years Used Date Smoking Tobacco: Former Cigarettes 1.5 0.2 S tarted: 06/21/2024 Passive Smoke Exposure: Past Smokeless Tobacco: Never Tobacco Cessation:Counseling Given: Not Answered Alcohol Use Standard Drinks/Week Comments Yes 0 (1 standard drink = 0.6 oz pur e alcohol) socially [facility] [employer] Answer Date Recorded In the past 12 months has e [employer], gas, oil, or water [employer] threatened to shut off services in [...] Never 07/27/2022 How often do you attend rastafari or temple serv ices? Never 07/27/2022 Do you belong to any clubs o r organizations such as rastafari groups, unions, fraternal or athletic groups, or [...] Answer Date Recorded PHQ-2 Score 6 07/10/2024 [facility]at [facility] - Occupational Stress Questionnaire Answer [...] ded PHQ-9 Total Score (max 27) 22 01/08 /2025 Nutrition Answer Date Recorded On average, how [...] Sign Reading Time Taken Comments Blood Pressure 105/74 08/21/2024 8:02 AM COIL STRAPPER Pulse 108 08/21/2024 8:02 AM COIL STRAPPER Temperature 36.1 C (97 F) 08/21/2024 8:02 AM COIL STRAPPER Respiratory Rate - - Oxygen Saturation 98% 08/21/2024 8:02 AM COIL STRAPPER Inhaled Oxygen Concentration - - Weight 88 kg (194 lb 0.1 oz) 08/21/2024 8:02 AM COIL STRAPPER Height 165 cm (5' 4.96) 08/21/2024 8:02 AM COIL STRAPPER Body Mass Index 32.32 08/21/2024 8:02 AM COIL STRAPPER documented in this encounter Progress Notes * Prudence Mena MPAS, P.A.-C. - 08/21/2024 8:00 AM CST SUBJECTIVE CHIEF COMPLAINT/REASON FOR VISIT Chief Complaint Patient presents with Follow-up 2 week from surgery HISTORY OF PRESENT ILLNESS Melinda Kumar is a pleasant 39 y.o. 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 She has completed oral Augmentin. She has follow up scheduled with thoracic surgery team next week. She continues to have left sided chest wall pain for which she is using oxycodone 7.5 mg every 4 hours. She is out of oxycodone prescription and did not sleep due to pain. She has not noticed side effects to this prescription. No constipation. She has been applying ketoconazole cream as directed to skin rash under left breast andsays incision in this area is improving. She has no concerns with her breathing and no fevers. She says her Zofran prescription sent at our last visit was not received by the pharmacy. The following portions of the patient's history were reviewed and updated as appropriate: current medications and problem list. Problem List[1] ALLERGIES/CONTRAINDICATIONS Allergies[2] CURRENT MEDICATIONS Current Medications[3] OBJECTIVE VITAL SIGNS Vitals: 08/21/24 0802 BP: 105/74 Pulse: 108 Temp: 36.1 ??C SpO2: 98% PHYSICAL EXAMINATION General: Well-nourished, well-developed 39 y.o. in no apparent distress. Awake, alert, age appropriate. Lungs: Clear to auscultation bilaterally with no adventitious sounds Skin: Erythema surrounding infection under left breast with erythematous papules. Similar appearance to photo taken at last visit and uploaded to chart via [facility] photo exam lacey. ASSESSMENT / PLAN IMPRESSION/REPORT/PLAN: #1 Empyema Pleural (HCC) Patient continues to recover from VATS decortication surgery Jul 2024. Thoracic chest wall pain continues to be managed with oxycodone 7.5 mg every 4 hours. Refill provided today. Discussed that nausea maybe a side effect of oxycodone. Refill of Zofran provided. She has CXR and follow up with Thoracic Surgery team next week. #2 Candidiasis Intertrigo Incision under left breast was cultured at last visit and returned with lesley infection. On exam today, there has not been much improvement in appearance of incision or surrounding rash with ketoconazole cream. We will transitioned to nystatin powder to be applied three times daily. Encouraged tokeep area clean and dry. Follow up in 1 - 2 weeks. #3 Anemia #4 Stool Positive Occult Blood #5 Thrombocytosis Recall positive fecal occult blood test Jun 2024 at [facility]. Hemoglobin level checked today shows mild improvement compared to previous. Platelet count improving, suspect previously elevated secondary to infection. Re-check in 1 month. - CBC with Differential, Blood; Future; Expected date: 08/21/2024 Other orders - Community Internal Medicine office visit (clinic) - Community Internal Medicine office visit (clinic) - ondansetron ODT (Zofran-ODT) 4 mg disintegrating tablet; Dissolve 1 tablet (4 mg total) in the mouth every 8 (eight) hours as needed for nausea or vomiting., Starting Mon08/21/2024, Normal - oxyCODONE (Roxicodone) 5 mg immediate release tablet; Take 1.5 tablets (7.5 mg total) by mouth every 4 (four) hours as needed for pain Indication: Acute Pain., Starting Mon08/21/2024, Normal - nystatin (Nystop) 100,000 unit/gram powder; Apply 1 Application topically 3 (three) times a day. Apply to affected area., Starting Mon08/21/2024, Normal - Community Internal Medicine office visit (clinic); Future; Expected date: 08/29/2024 If symptoms worsen or do not improve, patient is instructed to seek further medical attention. All questions have been answered. Patient demonstrated understanding and verbalized agreement with the plan. Total time spent: 35 minutes YOUSUF Pathak, P.A.-C. [1] Patient Active Problem List Diagnosis Hysterectomy Status [...] Asthma (HCC) Hemorrhage Gastrointestinal Empyema Pleural (HCC) Stool Positive Occult Blood [2] Allergies Allergen Reactions Blood-Group Specific Substance Other (see comments) ..Patient has warm Auto antibody. Blood products may be delayed. Draw patient 24 hours prior to transfusion. Draw one red top and two purple top tubes for all type and screen orders. [3] Current Outpatient Medications: acetaminophen (TYLENOL) 500 mg tablet, Take 1,000 mg by mouth every 6 (six) hours as needed for pain., Disp: , Rfl: albuterol 2.5 mg /3 [...] ER capsule, Take 1 capsule by mouth every morning., Disp: , Rfl: dextroamphetamine-amphetamine (ADDERALL) 10 mg tablet, Take 1 tablet by mouth between 12pm and 2pm daily*, Disp: , Rfl: DULoxetine (CYMBALTA) [address] capsule, Take 60 mg by mouth every morning., Disp: , Rfl: elagolix (Orilissa) 150 mg [...] 10 days., Disp: 16 g, Rfl: 0 ibuprofen 400 mg tablet, Take 1 tablet (400 mg total) by mouth every 6 (six) hours as needed for moderate pain or score 4-6 of 10 or severe pain or score 7- 10 of 10 for up to 3 days., Disp: 12 tablet, Rfl: 0 ipratropium-albuteroL (DuoNeb) 0.5-2.5 mg/3 mL nebulizer solution, Inhale 3 mL by nebulization 4 (four) times a day as needed for shortness of breath., Disp: 180 mL, Rfl: 3 ketoconazole (Nizoral) 2 % cream, Apply 1 Application topically daily. Apply to affected area., Disp: 30 g, Rfl: 0 lidocaine (Lidoderm) 5 % adhesive patch,medicated, Place 1 patch on the skin daily. Apply to painful area 12 hours per day, remove for 12 hours., Disp: 10 patch, Rfl: 0 lisinopriL 10 mg tablet, Take 1 tablet (10 mg total) by mouth daily., Disp: 90 tablet, Rfl: 3 LORazepam (Ativan) 0.5 mg tablet, Take 0.5 mg by mouth daily as needed for anxiety., Disp: , Rfl: methocarbamoL (Robaxin) 500 mg tablet, Take 1 tablet (500 mg total) by mouth 3 (three) times a day as needed for muscle spasms., Disp: 45 tablet, Rfl: 0 multivitamin capsule, Take 1 capsule by mouth daily., Disp: , Rfl: ondansetron ODT (Zofran-ODT) 4 mg disintegrating tablet, Dissolve 1 tablet (4 mg total) in the mouth every 8 (eight) hours as needed for nausea or vomiting., Disp: 20 tablet, Rfl: 0 oxyCODONE (Roxicodone) 5 mg immediate release tablet, Take 1.5 tablets (7.5 mg total) by mouth every 4 (four) hours as needed for pain Indication: Acute Pain., Disp: 27 tablet, Rfl: 0 polyethylene glycol (MIRALAX) 17 gram/dose oral powder, [...] g, Rfl: 3 Vraylar 4.5 mg capsule, Take 4.5 mg by mouth at bedtime., Disp: , Rfl: DME CPAP, DME Order (Patient not taking: Reported on 08/21/2024), Disp: 1 each, Rfl: 0 guaiFENesin (Mucinex) 600 mg 12 hr tablet, Take 1,200 mg by mouth 2 (two) times a day. (Patient nottaking: Reported on 08/21/2024), Disp: , Rfl: nystatin (Nystop) 100,000 unit/gram powder, Apply 1 Application topically 3 (three) times a day. Apply to affected area., Disp: 30 g, Rfl: 1 STRAPPER documented in this encounter Plan of Treatment Upcoming Encounters Date Type Department Care Team (Late st Contact Info) Description 08/30/2024 9:00 AM COIL STRAPPER Office Visit Department of Community Internal Medicine in [address] [phone] Prudence Mena MPAS, P.A.-C. [address] [place] [phone] Scheduled Orders Name Type Priority Associated Diagnoses Orde r Schedule CBC with Differential, Blood Lab Routine Anemia Stool Positive Occult Blood Expected: 09/18/2024, Expires: 11/18/2025 Scheduled Referrals Name Type Priority Associated Diagnoses Orde r Schedule Community Internal Medicine office visit (clinic) Outpatient Referral Routine Expected: 08/29/2024, Expires: 11/18/2025 documented as of this encounter Results * (ABNORMAL) CBC with Differential, Blood (08/21/2024 8:46 AM COIL STRAPPER) Hemoglobin 10.9(L) 11.6 - 15.0 g/dL 08/21/2024 8:55 AM COIL STRAPPER FB60 Hematocrit 35.4(L) 35.5 - 44.9 % 08/21/2024 8:55 AM COIL STRAPPER FB60 Erythrocytes 4.28 3.92 - 5.13 x10(12)/L 08/21/2024 8:55 AM COIL STRAPPER FB60 MCV 82.7 78.2 - 97.9 fL 08/21/2024 8:55 AM COIL STRAPPER FB60 RBC Distrib Width 16.6(H) 12.2 - 16.1 % 08/21/2024 8:55 AM COIL STRAPPER FB60 Platelet Count 634(H) 157 - 371 x10(9)/L 08/21/2024 8:55 AM COIL STRAPPER FB60 Leukocytes 10.5(H) 3.4 - 9.6 x10(9)/L 08/21/2024 8:55 AM COIL STRAPPER FB60 Neutrophils 8.01(H) 1.56 - 6.45 x10(9)/L 08/21/2024 8:55 AM COIL STRAPPER FB60 Lymphocytes 1.40 0.95 - 3.07 x10(9)/L 08/21/2024 8:55 AM COIL STRAPPER FB60 Monocytes 0.58 0.26 - 0.81 x10(9)/L 08/21/2024 8:55 AM COIL STRAPPER FB60 Eosinophils 0.47 0.03 - 0.48 x10(9)/L 08/21/2024 8:55 AM COIL STRAPPER FB60 Basophils <0.04 0.01 - 0.08 x10(9)/L 08/21/2024 8:55 AM COIL STRAPPER FB60 Blood (Blood, Venous) 08/21/2024 8:46 AM COIL STRAPPER 08/21/2024 8:47 AM COIL STRAPPER us Prudence TO, P.A.-C. LAB BLOOD ADD-ON Final Result [facility] [address] [place] [address], [facility] FB[address] [facility] [place] [address] [place] [address] documented in this encounter Visit Diagnoses Diagnosis Empyema Pleural (HCC)- Primary Candidiasis Intertrigo Anemia Stool Positive Occult Blood documented in this encounter Additional Health Concerns Assessment Noted Time PHQ-9 Depression Total Score: 22 07/10/ 025 7:19 PM COIL STRAPPER documented as of this encounter Care Teams Corporate Intern Relationship Specialty Start Date End Date Prudence Mena MPAS, P.A.-C. [address] [place] [address] [place], [place] [phone] PCP - General Internal Medicine 02/08/24 documented as of this encounter
--- OUTSIDE RECORDS SUMMARY | 2024-08-28 18:14 | XMS_ITS | Encounter Summary ---
Author Organization [facility] Address [address] [place] [address] Care Team Providers Care Credit Administration Specialist Name Role Phone Prudence Mena P.A.-C. Primary Care Pro vider Reason for Visit * Reason Onset Date Comments New Med Request 08/06/2024 Encounter Details Date Type Department Care Team (Latest Contact Info) Description 08/06/2024 Clinical Communication Department of Community Internal Medicine in [place], [place] 300 [place] [address] Prudence Mena MPAS, P.A.-CDmitry [address] [place] [phone] New Med Request Social History Tobacco Use Types Packs/Day Years Used Date Smoking Tobacco: Former Cigarettes 1.5 0.2 S tarted: 06/21/2024 Passive Smoke Exposure: Past Smokeless Tobacco: Never Alcohol Use Standard Drinks/Week Comments Yes 0 (1 standard drink = 0.6 oz pur e alcohol) socially [facility] Utilities Answer Date Recorded In the past [...] Never 07/27/2022 How often do you attend congregation or faith serv ices? Never 07/27/2022 Do you belong to any clubs o r organizations such as congregation groups, unions, fraternal or athletic groups, or [...] Answer Date Recorded PHQ-2 Score 6 07/10/2024 [facility] of Occupat ional Health - Occupational [...] Telephone Encounter - Ayala Wheeler R.N. - 08/06/2024 12:23 PM CST Left detailed message for patient: Does the patient need to speak to nursing? no Action needed: Please let the patient know prescription has been sent. GRITY ASSESSOR documented in this encounter Plan of Treatment Upcoming Encounters Date Type Department Care Team (Late st Contact Info) Description 08/30/2024 9:00 AM INTEGRITY ASSESSOR Office Visit Department of Community Internal Medicine in [place], [place] 300 [facility] [place] [address] Prudence Mena MPAS, PDmitryA.-C. 300 [facility] [place] [place] [phone] documented as of this encounter Visit Diagnoses Not on filedocumented in this encounter Additional Health Concerns Assessment Noted Time PHQ-9 Depression Total Score: 22 025 7:19 PM INTEGRITY ASSESSOR documented as of this encounter Care Teams Credit Administration Specialist Relationship Specialty Start Date End Date Prudence Mena MPAS, P.A.-C. 300 [facility] [place] [phone] PCP - General Internal Medicine 02/08/24 documented as of this encounter
--- OUTSIDE RECORDS SUMMARY | 2024-08-28 18:14 | XMS_ITS | Encounter Summary ---
Author Organization [facility] Address [address] [place] [address] Care Team Providers Care Him Specialists Name Role Phone Prudence Mena P.A.-C. Primary Care Pro vider Reason for Referral * Outpatient (Routine) - Closed Specialty Diagnoses / Procedures Referred By Talia galeas Referred To Contact Diagnoses Empyema Pleural (HCC) Procedures DX Chest AP or PA and Lateral 2 Views Kayleigh Small M.D. [address] [place] [phone] Phone: tel: fax: [facility] Referral ID Status Reason Start Date Expiration Date Visits Re quested Visits Authorized [id number] Closed 07/18/2024 07/18/2025 1 1 SHELLER OPERATOR Reason for Visit * Outpatient (Routine) - Closed Specialty Diagnoses / Procedures Referred By Contac t Referred To Contact Diagnoses Empyema Pleural (HCC) Procedures DX Chest AP or PA and Lateral 2 Views Kayleigh Small M.D. [address] [place] [phone] Phone: tel: fax: [facility] Referral ID Status Reason Start Date Expiration Date Visits Re quested Visits Authorized [id number] Closed 07/18/2024 07/18/2025 1 1 Encounter Details Date Type Department Care Team (Latest Contact Info) Description 08/05/2024 8:20 AM CORN SHELLER OPERATOR - 08/05/2024 11:59 PM CORN SHELLER OPERATOR Hospital Encounter Department of Radiology, [facility], in [place], [place] 200 [place] [address] Kayleigh Small M.D. 200 [place] [address] Empyema Pleural (HCC) Discharge Disposition: Home or Self Care Social History Tobacco Use Types Packs/Day Years Used Date Smoking Tobacco: Former Cigarettes 1.5 0.2 S tarted: 06/21/2024 Passive Smoke Exposure: Past Smokeless Tobacco: Never Alcohol Use Standard Drinks/Week Comments Yes 0 (1 standard drink = 0.6 oz pur e alcohol) socially [facility] [employer] Answer Date Recorded In the past 12 months has e [employer], gas, oil, or water [employer] threatened to shut off services in your [...] How often do you attend catholic or quaker serv ices? Never 07/27/2022 Do you belong [...] times a day. 12 g 3 3 fluticasone propionate (Flonase) 50 mcg/actuation nasal spray Administer 2 sprays into each nostril daily for 10 days. 16 g 4 guaiFENesin (Mucinex) 600 mg 12 hr tablet Take 1,200 mg by mouth 2 (two) times a day. ibuprofen 400 mg tablet Take 1 tablet (400 mg total) by mouth every 6 (six) hours as needed for moderate pain or score 4-6 of 10 or severe pain or score 7-10 of 10 for up to 3 days. 12 tablet 5 ipratropium-albuter oL (DuoNeb) 0.5-2.5 mg/3 mL nebulizer solution Inhale 3 mL by nebulization 4 (four) times a day as needed for shortness of breath. 180 mL 3 4 lidocaine (Lidoderm) 5 % adhesive patch,medicated Place [...] 4.5 mg by mouth at bedtime. 3 amoxicillin-pot clavulanate (Augmentin) 875-125 mg per tabletIndications:E mpyema Pleural (HCC) Take 1 tablet by mouth every 12 (twelve) hours for 10 days. 20 tablet 5 08/15/19 25 methocarbamoL (Robaxin) 500 mg tablet Take 1 tablet (500 mg total) by mouth 3 (three) times a day as needed for muscle spasms. 45 tablet 5 08/27/19 25 ondansetron ODT (Zofran-ODT) 4 mg disintegrating tablet Dissolve 1 tablet (4 mg total) in the mouth every 8 (eight) hours as needed for nausea or vomiting. 20 tablet 5 08/12/19 25 oxyCODONE (Roxicodone) 5 mg immediate release tabletIndications:A cute Pain Take 1.5 tablets (7.5 mg total) by mouth every 4 (four) hours as needed for pain Indication: Acute Pain. 27 tablet 5 08/06/19 25 sennosides (senna) 8.6 mg tablet Take 2 tablets (17.2 mg total) by mouth daily. 5 08/12/19 25 documented as of this encounter Plan of Treatment Upcoming Encounters Date Type Department Care Team (Late st Contact Info) Description 08/30/2024 9:00 AM CORN SHELLER OPERATOR Office Visit Department of Community Internal Medicine in [address] [place] [address] Prudence Mena MPAS, P.A.-C. 300 [facility] [place] [phone] documented as of this encounter Procedures Procedure Name Priority Date/Time Associated Diagnosis Comments DX CHEST AP OR PA AND LATERAL 2 VIEWS RAD - Routine (most inpatients and all outpatients) 08/05/2024 8:24 AM CORN SHELLER OPERATOR Empyema Pleural (HCC) documented in this encounter Results * DX Chest AP or PA and Lateral 2 Views (08/05/2024 8:24 AM CORN SHELLER OPERATOR) Anatomical Region Laterality Modality Chest, Thoracic RST LOS, Tho racic ARZ LOS, Thoracic FLA LOS N/A Digital Radiography Impressions 08/05/2024 8:30 AM CORN SHELLER OPERATOR Compared with 07/26/2024. Stable areas of pleural and parenchymal scarring on the left. The small posterior left pleural effusion appears decreased. Right basilar atelectasis has resolved. Right PICC line in the upper right atrium. Chest otherwise negative. Narrative 08/05/2024 8:30 AM CORN SHELLER OPERATOR EXAM: DX CHEST AP OR PA AND LATERAL 2 VIEWS Procedure Note Rashid Baig M.D. - 08/05/2024 EXAM: DX CHEST AP OR PA AND LATERAL 2 VIEWS IMPRESSION: Compared with 07/26/2024. Stable areas of pleural and parenchymal scarringon the left. The small posterior left pleural effusion appears decreased.Right basilar atelectasis has resolved. Right PICC line in the upper rightatrium. Chest otherwise negative. Kayleigh [facility]ALES DIAGNOST[facility] IMAGING PROCEDURES Final Result documented in this encounter Visit Diagnoses Diagnosis Empyema Pleural (HCC) documented in this encounter Additional Health Concerns Assessment Noted Time PHQ-9 Depression Total Score: 22 025 7:19 PM CORN SHELLER OPERATOR documented as of this encounter Care Teams Him Specialists Relationship Specialty Start Date End Date Prudence Mena MPAS, P.A.-C. [address] [place] [phone] PCP - General Internal Medicine 02/08/24 documented as of this encounter
--- OUTSIDE RECORDS SUMMARY | 2024-08-28 18:14 | XMS_ITS | Encounter Summary ---
Author Organization [facility] Address [address] [place] [address] Care Team Providers Care Air Brake Man Name Role Phone Prudence Mena P.A.-C. Primary Care Pro vider Reason for Visit * Reason Onset Date Comments Med Refill 08/05/2024 Encounter Details Date Type Department Care Team (Late st Contact Info) Description 08/05/2024 Refill Department of Community Internal Medicine in [place], [place] 300 [place] [address] Prudence Mena MPAS, P.A.-CDmitry 300 [place] [address] Med Refill Social History Tobacco Use Types Packs/Day Years Used Date Smoking Tobacco: Former Cigarettes 1.5 0.2 S tarted: 06/21/2024 Passive Smoke Exposure: Past Smokeless Tobacco: Never Alcohol Use Standard Drinks/Week Comments Yes 0 (1 standard drink = 0.6 oz pur e alcohol) socially [facility] Utilities Answer Date Recorded In the [...] How often do you attend mormon or christianity serv ices? Never 07/27/2022 Do you belong [...] Answer Date Recorded PHQ-2 Score 6 07/10/2024 [facility] - Occupational [...] st Contact Info) Description 08/30/2024 9:00 AM CAPTAIN/CHECK AIRMAN Office Visit Department of Community Internal Medicine in [place], [place] 300 [place] [address] Prudence Mena MPAS, P.A.-C. [address] [facility] [place] [address] documented as of this encounter Visit Diagnoses Not on filedocumented in this encounter Additional Health Concerns Assessment Noted Time PHQ-9 Depression Total Score: 22 025 7:19 PM CAPTAIN/CHECK AIRMAN documented as of this encounter Care Teams Air Brake Man Relationship Specialty Start Date End Date Prudence Mena MPAS, P.A.-C. 300 [facility] [place] [address] PCP - General Internal Medicine 02/08/24 documented as of this encounter
--- OUTSIDE RECORDS SUMMARY | 2024-08-28 18:14 | XMS_ITS | Encounter Summary ---
Author Organization [facility] Address [address] [place] [address] Care Team Providers Care Pillowcase Cutter Name Role Phone Prudence Mena P.A.-C. Primary Care Pro vider Reason for Visit * Reason Onset Date Comments Med Refill 08/09/2024 Encounter Details Date Type Department Care Team (Late st Contact Info) Description 08/09/2024 Refill Department of Community Internal Medicine in [place], [place] [address] [place] [address] Prudence Mena MPAS, P.ADmitry-CDmitry 300 [place] [address] Med Refill Social History Tobacco [...] How often do you attend mosque or spiritism serv ices? Never 07/27/2022 Do [...] st Contact Info) Description 08/30/2024 9:00 AM BABY COUNSELOR Office Visit Department of Community Internal Medicine in [place], [place] [address] [place] [address] Prudence Mena MPAS, P.A.-C. 300 [place] [address] documented as of this encounter Visit Diagnoses Not on filedocumented in this encounter Additional Health Concerns Assessment Noted Time PHQ-9 Depression Total Score: 22 025 7:19 PM BABY COUNSELOR documented as of this encounter Care Teams Pillowcase Cutter Relationship Specialty Start Date End Date Prudence Mena MPAS, P.A.-C. 300 [facility] [place] [address] PCP - General Internal Medicine 02/08/24 documented as of this encounter
--- OUTSIDE RECORDS SUMMARY | 2024-08-28 18:14 | XMS_ITS | Encounter Summary ---
Author Organization [facility] Address [address] [place] [address] Care Team Providers Care Supervisor Cigar Making Machine Name Role Phone Prudence Mena P.A.-C. Primary Care Pro vider Reason for Visit * Reason Comments OPAT Monitoring Complete Encounter Details Date Type Department Care Team ([facility] st Contact Info) Description 08/06/2024 Patient Outreach Section of Infectious Diseases in [place], [place] [address] [place] [phone] Karla Stein R.N. OPAT (Monitoring Complete) Social History Tobacco Use Types Packs/Day Years Used Date Smoking Tobacco: Former Cigarettes 1.5 0.2 S tarted: 06/21/2024 Passive Smoke Exposure: Past Smokeless Tobacco: Never Alcohol Use Standard Drinks/Week Comments Yes 0 (1 standard drink = 0.6 oz pur e alcohol) socially [facility] Utilities Answer Date Recorded In the past 12 months has [facility] [employer], gas, oil, or water [employer] threatened to shut off services in your [...] Never 07/27/2022 How often do you attend restorationism or worship serv ices? Never 07/27/2022 Do you belong to any clubs o r organizations such as restorationism groups, unions, fraternal or athletic groups, or [...] Answer Date Recorded PHQ-2 Score 6 07/10/2024 [facility] Occupat ional Health - [...] PM CDT documented as of this encounter Nursing Notes * Karla Stein R.N. - 08/06/2024 8:43 AM CST OPAT NOTE- Monitoring Complete Name Phone Number OPAT Infusion/Labs: [facility]: Richard Zafar (M-F) OPAT Infusion/Labs: [facility]: Amaury Hunt (Sat/Sun) Patient completed IV antimicrobial therapy on 08/05/24 and their PICC (temporary, non-tunneled) was removed on 08/05/[address] Yee 08/05, I recommended treatment with Augmentin 875 mg p.o. twice daily for another 10 days. This does not require lab monitoring per OPAT guideline. The patient's OPAT Episode will now be completed and they will be removed from OPAT monitoring. PRESSER documented in this encounter Plan of Treatment Upcoming Encounters Date Type Department Care Team (Late st Contact Info) Description 08/30/2024 9:00 AM BAG PRESSER Office Visit Department of Community Internal Medicine in [place], [place] [address] [place] [address] Prudence Mena MPAS, P.A.-C. 300 [facility] [place] [address] documented as of this encounter Visit Diagnoses Not on filedocumented in this encounter Additional Health Concerns Assessment Noted Time PHQ-9 Depression Total Score: 22 025 7:19 PM BAG PRESSER documented as of this encounter Care Teams Supervisor Cigar Making Machine Relationship Specialty Start Date End Date Prudence Mena MPAS, P.A.-C. 300 [facility] [place] [address] PCP - General Internal Medicine 02/08/24 documented as of this encounter
--- OUTSIDE RECORDS SUMMARY | 2024-08-28 18:14 | XMS_ITS | Encounter Summary ---
Author Organization [facility] Address [address] [place] [address] Care Team Providers Care Senior Telecommunications Consultant Name Role Phone Prudence Mena P.A.-C. Primary Care Pro vider Reason for Referral * Outpatient (Routine) - Closed Specialty Diagnoses / Procedures Referred By Talia galeas Referred To Contact Community Internal Medicine Prudence Mena MPAS, P.A.-CDmitry 300 [place] [address] Phone: tel: fax: [facility] Region Referral ID Status Reason Start Date Expiration Date Visits Re quested Visits Authorized [id number] Closed 08/12/2024 02/11/2026 1 1 ECTION PRINTER Reason for Visit * Reason Comments Follow-up * Appointment Request (Routine) - Closed Specialty Diagnoses / Procedures Referred By Talia galeas Referred To Contact Community Internal Medicine Referral ID Status Reason Start Date Expiration Date Visits Re quested Visits Authorized [id number] Closed 08/06/2024 11/06/2025 1 1 Encounter Details Date Type Department Care Team (Late st Contact Info) Description 08/12/2024 8:00 AM PROJECTION PRINTER Office Visit Department of Community Internal Medicine in [place], [place] 300 [place] [address] Prudence Mena MPAS, P.A.-C. 300 [place] [address] Empyema Pleural (HCC) (Primary Dx); Candidiasis Intertrigo Social History Tobacco Use Types Packs/Day Years Used Date Smoking Tobacco: Former Cigarettes 1.5 0.2 S tarted: 06/21/2024 Passive Smoke Exposure: Past Smokeless Tobacco: Never Tobacco Cessation:Counseling Given: Not Answered Alcohol Use Standard Drinks/Week Comments Yes 0 (1 standard drink = 0.6 oz pur e alcohol) socially [facility] [employer] Answer Date Recorded In the past 12 months has e [employer], gas, oil, or water [employer] threatened to shut off services in your [...] Never 07/27/2022 How often do you attend muslim or evangelical serv ices? Never 07/27/2022 Do you belong to any clubs o r organizations such as muslim groups, unions, fraternal or athletic groups, or [...] Answer Date Recorded PHQ-2 Score 6 07/10/2024 [facility] of Occupat ional Health - [...] Sign Reading Time Taken Comments Blood Pressure 128/84 08/12/2024 8:01 AM PROJECTION PRINTER Pulse 113 08/12/2024 8:01 AM PROJECTION PRINTER Temperature 36 C (96.8 F) 08/12/2024 8:01 AM PROJECTION PRINTER Respiratory Rate 16 08/12/2024 8:01 AM PROJECTION PRINTER Oxygen Saturation 98% 08/12/2024 8:01 AM PROJECTION PRINTER Inhaled Oxygen Concentration - - Weight 90.2 kg (198 lb 13.6 oz) 08/12/2024 8:01 AM PROJECTION PRINTER Height - - Body Mass Index 33.95 07/29/2024 2:12 PM PROJECTION PRINTER documented in this encounter Progress Notes * Prudence Mena MPAS, P.A.-C. - 08/12/2024 8:00 AM CST SUBJECTIVE CHIEF COMPLAINT/REASON FOR VISIT Chief Complaint Patient presents with Follow-up HISTORY OF PRESENT ILLNESS Melinda Kumar is a pleasant 39 y.o. female who presents to the clinic today for follow up. Since our last visit, she had a consult with Infectious Disease 1 week ago. She completed course of ceftriaxone and metronidazole. Nausea has improved now that she is not taking metronidazole however this is still an issue. She continues on Zofran 4 mg every 8 hours. She feels her nausea is worsened by pain which continues to be present left chest wall near area of previous incisions. She did find dose increase in oxycodone helpful at our last visit. She continues on oxycodone 7.5 mg every 4 hours. She is using ice, heat, and pain patches for her pain. She does not feel constipated from the oxycodone. She was started on oral Augmentin by Infectious Disease 1 week ago. She has 3 days of antibiotic left. She has not had a fever at home. The following portions of the patient's history were reviewed and updated as appropriate: current medications and problem list. Problem List[1] ALLERGIES/CONTRAINDICATIONS Allergies[2] CURRENT MEDICATIONS Current Medications[3] OBJECTIVE VITAL SIGNS Vitals: 08/12/24 0801 BP: 128/84 Pulse: (!) 113 Resp: 16 Temp: 36 ??C SpO2: 98% PHYSICAL EXAMINATION General: Well-nourished, well-developed 39 y.o. in no apparent distress. Awake, alert, age appropriate. Skin: 2 cm incision left chest wall under left breast with surrounding erythema and yellow/white purulent drainage. Erythematous papules scattered under left breast and near incision. See photo uploaded to chart ASSESSMENT / PLAN IMPRESSION/REPORT/PLAN: #1 Empyema Pleural (HCC) #2 Candidiasis Intertrigo Melinda is recovering from left pleural empyema s/p robotic thoracoscopy decortication 07/15/2024 and community-acquired pneumonia. She is in the process of completing course of oral Augmentin. A recent chest x-ray did not show any evidence of pneumonia and showed decreased size of left pleural effusion. She has been afebrile. She continues to have nausea and left-sided chest wall pain after hersurgery which we will continue to manage with Zofran and oxycodone. I have sent refills to her pharmacy today. We examined her incisions from thoracic surgery and there is one incision under left breast that appears infected. This was cultured today. There is surrounding new development of an intertrigo rash around this incision. Topical ketoconazole cream has been prescribed for this to be applied once daily. I stressed the importance of keeping this area clean and dry. Follow-up in 1 week. - Bacterial Culture, Aerobic + Susceptibility; Future; Expected date: 08/12/2024 - Bacterial Culture, Aerobic + Susceptibility Other orders - ondansetron ODT (Zofran-ODT) 4 mg disintegrating tablet; Dissolve 1 tablet (4 mg total) in the mouth every 8 (eight) hours as needed for nausea or vomiting., Starting 08/12/2024, Normal - oxyCODONE (Roxicodone) 5 mg immediate release tablet; Take 1.5 tablets (7.5 mg total) by mouth every 4 (four) hours as needed for pain Indication: Acute Pain., Starting 08/12/2024, Normal - Community Internal Medicine office visit (clinic); Future; Expected date: 08/19/2024 - ketoconazole (Nizoral) 2 % cream; Apply 1 Application topically daily. Apply to affected area., Starting Mon08/12/2024, Normal If symptoms worsen or do not improve, patient is instructed to seek further medical attention. All questions have been answered. Patient demonstrated understanding and verbalized agreement with the plan. Total time spent: 35 minutes FOLLOW UP: 1 week YOUSUF Pathak, P.A.-C. [1] Patient Active Problem [...] of breath., Disp: 75 mL, Rfl: 2 amoxicillin-pot clavulanate (Augmentin) 875-125 mg per tablet, Take 1 tablet by mouth every 12 (twelve) hours for 10 days., Disp: 20 tablet, Rfl: 0 buPROPion XL (WELLBUTRIN XL) 150 mg 24 [...] 10 days., Disp: 16 g, Rfl: 0 guaiFENesin (Mucinex) 600 mg 12 hr tablet, Take 1,200 mg by mouth 2 (two) times a day., Disp: , Rfl: ibuprofen 400 mg tablet, Take 1 tablet [...] of breath., Disp: 180 mL, Rfl: 3 lidocaine (Lidoderm) 5 % adhesive patch,medicated, Place [...] bedtime., Disp: , Rfl: DME CPAP, DME Order, Disp: 1 each, Rfl: 0 ketoconazole (Nizoral) 2 % cream, Apply 1 Application topically daily. Apply to affected area., Disp: 30 g, Rfl: 0 ECTION PRINTER documented in this encounter Plan of Treatment Upcoming Encounters Date Type Department Care Team (Late st Contact Info) Description 08/30/2024 9:00 AM PROJECTION PRINTER Office Visit Department of Community Internal Medicine in [place], [place] [address] [place] [address] Prudence Mena MPAS, P.A.-C. 300 [place] [place] [address] Scheduled Referrals Name Type Priority Associated Diagnoses Orde r Schedule Community Internal Medicine office visit (clinic) Outpatient Referral Routine Expected: 08/19/2024, Expires: 11/09/2025 documented as of this encounter Procedures Procedure Name Priority Date/Time Associated Diagnosis Comments BACTERIAL CULTURE, AEROBIC + SUSC Routine 08/12/2024 8:35 AM PROJECTION PRINTER Empyema Pleural (HCC) documented in this encounter Results * (ABNORMAL) Bacterial Culture, Aerobic + Susceptibility (08/12/2024 8:35 AM PROJECTION PRINTER) Bacterial Culture, Aerobic + Susc YEAST 2+ (A) 08/14/2024 11:12 AM PROJECTION PRINTER MKTO Comment:No further identific ation Skin (Chest, Left) 08/12/2024 8:35 AM PROJECTION PRINTER 08/12/2024 6:46 PM PROJECTION PRINTER Comment:Specimen Source Site : Skin us Prudence TO, P.A.-C. LAB MICROBIOLOGY - GENERAL ORDERABLES Final Result [facility] [address] [place] [address], [facility] MKTO [facility] in [place] [address] [place] [address] documented in this encounter Visit Diagnoses Diagnosis Empyema Pleural (HCC)- Primary Candidiasis Intertrigo documented in this encounter Additional Health Concerns Assessment Noted Time PHQ-9 Depression Total Score: 22 025 7:19 PM PROJECTION PRINTER documented as of this encounter Care Teams Senior Telecommunications Consultant Relationship Specialty Start Date End Date Prudence Mena MPAS, P.A.-C. [address] [place] [address] PCP - General Internal Medicine 02/08/24 documented as of this encounter
--- OUTSIDE RECORDS SUMMARY | 2024-08-28 18:14 | XMS_ITS | Encounter Summary ---
Author Organization [facility] Address [address] [place] [phone] Care Team Providers Care Data Modeler Name Role Phone Prudence Mena P.A.-C. Primary Care Pro vider Reason for Visit * Outpatient (Routine) - Closed Specialty Diagnoses / Procedures Referred By Contac t Referred To Contact Infectious Diseases Diagnoses Empyema Pleural (HCC) Kayleigh Small M.D. [address] [place] [phone] Phone: tel: fax: [facility] Referral ID Status Reason Start Date Expiration Date Visits Re quested Visits Authorized [id number] Closed 07/18/2024 01/17/2026 1 1 Encounter Details Date Type Department Care Team (Late st Contact Info) Description 08/05/2024 11:00 AM FARM MANAGEMENT PROFESSOR Office Visit Section of Infectious Diseases in [place], [place] [address] [place] [address] [phone] Kayleigh Small M.D. [address] [place] [address] [phone] Nimco Yee M.D. [address] [place] [address] [phone] Empyema Pleural (HCC) Social History Tobacco Use Types Packs/Day Years Used Date Smoking Tobacco: Former Cigarettes 1.5 0.2 S tarted: 06/21/2024 Passive Smoke Exposure: Past Smokeless Tobacco: Never Alcohol Use Standard Drinks/Week Comments Yes 0 (1 standard drink = 0.6 oz pur e alcohol) socially [facility] Utilities Answer Date Recorded In the past 12 months has e electric, gas, oil, or water [employer] threatened to shut off services in your [...] How often do you attend jain or hinduism serv ices? Never 07/27/2022 Do [...] Answer Date Recorded PHQ-2 Score 6 07/10/2024 [facility] - [...] Sign Reading Time Taken Comments Blood Pressure - - Pulse - - Temperature 35.5 C (95.9 F) 08/05/2024 10:20 AM FARM MANAGEMENT PROFESSOR Respiratory Rate - - Oxygen Saturation - - Inhaled Oxygen Concentration - - Weight 91.5 kg (201 lb 11.5 oz) 025 10:20 AM FARM MANAGEMENT PROFESSOR Height - - Body Mass Index 34.44 07/29/2024 2:12 PM FARM MANAGEMENT PROFESSOR documented in this encounter Consult Notes * Nimco Yee M.D. - 08/05/2024 11:00 AM CST SUBJECTIVE Referring Provider: Kayleigh Small M.D. REASON FOR CONSULT Patient is a 39 y.o. female being seen by Infectious Diseases for left pleural empyema status post decortication. HISTORY OF PRESENT ILLNESS Ms. Kumar is a 39-year-old woman from [place], [place] with history of asthma, hypertension, obesity (BMI 34), sleep apnea and depression. The patient initially presented to an outside hospital on 06/26/2024 with respiratory symptoms and was given empiric treatment as outpatient. She required admission from 06/30/2024 through 07/04/2024for worsening symptoms. Was treated with intravenous antibiotics and discharged on doxycycline. Following discharge the patient continued having dyspnea and left pleuritic chest pain. She re-presented to the ED. Chest CT scan showed worsening left pleural effusion and empyema. Was transferred to [place]. Underwent left robotic VATS decortication on 07/15/2024. Pockets of pus and left lower lobe adhesions were noted. Two chest tubes were placed. Intraoperative culture was no growth. The patient was discharged on ceftriaxone 2 g IV every 24 hours and metronidazole 500 mg p.o. t.i.d. with plan to complete a 3 week course. The patient re-presented to the ED on 07/26/2024 reporting increased pain on the left chest wall. Chest CT angiogram on 07/26/2024 showed stable small left pleural effusion. Scattered patchy interstitial and airspace opacities. No pulmonary embolism. On today's visit, the patient reports ongoing sharp left-sided chest pain. This has slightly improved compared to her admission. She is still taking oxycodone. She denies any fevers. She endorses minor cough with mucus expectoration. She reports dyspnea on exertion. Metronidazole has been causing nausea. Today's chest x-ray shows stable areas of pleural and parenchymal scarring on the left. REVIEW OF SYSTEMS Pertinent items are noted in HPI; all other review of systems was negative. Allergies Allergen Reactions Blood-Group Specific Substance Other (see comments) ..Patient has warm Auto antibody. Blood products may be delayed. Draw patient 24 hours prior to transfusion. Draw one red top and two purple top tubes for all type and screen orders. Medical History[1] Surgical History[2] Family History[3] Social History[4] Encounter Medications[5] OBJECTIVE Vitals: 08/05/24 1020 Temp: (!) 35.5 ??C Weight: 91.5 kg TempSrc: Tympanic PHYSICAL EXAMINATION General: Well appearing, no distress Heart: Regular rate, normal rhythm, no murmur Lungs: Decreased left lung breath sounds, no pleural rub. Well-healed port sites without signs of inflammation. DIAGNOSTICS WBC 16.2 (neutrophils 13.51), hemoglobin 10.8, platelets 795 Estimated Creatinine Clearance: 190.8 mL/min (A) (by C-G formula based on SCr of 0.44 mg/dL (L)). ALT 10, ALP 106 On 07/26/2024 CRP was 43.3 and ESR 102. ASSESSMENT / PLAN #1 Left pleural empyema following community-acquired multifocal pneumonia #2 Status post VATS decortication (July 15, 2024) #3 Asthma #4 Obesity (wt 91 kg, BMI 34) #5 HIV screen negative Mrs. Kumar is recovering from left pleural empyema. Operative cultures were negative (collected after prolonged empiric antibiotic treatment). She reports ongoing left-sided chest pain. Recent chest CT scan reassuringly shows a small left pleural effusion. Today's chest x-ray similarly shows left pleural scarring. The patient received 3 weeks of ceftriaxone and oral metronidazole following VATS decortication. She reports nausea which is likely related to the metronidazole. I will stop ceftriaxone and metronidazole, as planned. Given her ongoing pain and leukocytosis/thrombocytosis, I recommended treatment with Augmentin 875 mg p.o. twice daily for another 10 days. I sent a prescription to her pharmacy. I advised her to follow-up with her primary care provider after completion of oral antibiotic treatment. She should also discuss management of asthma. Of note, she has not been compliant with inhalertreatment. I advised her to contact me if she develops fevers, worsening chest pain or worsening shortness of breath. Nimco Yee MD [1] Past Medical History: Diagnosis Date Anemia Anxiety Generalized Disorder Apnea Sleep Obstructive Asthma NOS Blood Transfusion No Diagnosis Depressive Disorder Fibromyalgia Hypertension NOS Hypothyroidism Infection Urinary Tract Acute Migraine Headache Stone Kidney Zoster Without Complications 12/02/2019 [2] Past Surgical History: Procedure Laterality Date BLADDER SURGERY 1997 SECTION 07/26/2006 SECTION 10/22/2008 SECTION 02/03/2014 CYSTOSCOPY WITH INJECTION THERAPEUTIC AGENT N/A 06/30/2023 Procedure: CYSTOSCOPY WITH INJECTION THERAPEUTIC AGENT; Surgeon: Yobany Soares M.D., Ph.D.; Location: [facility] OR DECORTICATION - THORACOSCOPY (VATS) Left 07/15/2024 Procedure: ROBOTIC THORACOSCOPY, DECORTICATION, PLEURODESIS, PROCEED INDICATED.; Surgeon: Patrick Mtz M.D., Ph.D.; Location: [email or web address]] ROMB OR HYDRODISTENSION BLADDER WITH CYSTOSCOPY N/A 06/30/2023 Procedure: HYDRODISTENSION BLADDER WITH CYSTOSCOPY; Surgeon: Yobany Soares M.D., Ph.D.; Location: [facility] OR INJECTION BOTOX Bilateral 06/30/2023 Procedure: INJECTION BOTOX PELVIC FLOOR; Surgeon: Yobany Soares M.D., Ph.D.; Location: [facility] OR OTHER SURGICAL HISTORY 10/2017 Hysterectomy that didn't go well. TOTAL HYSTERECTOMY 2018 URETER SURGERY 1998 [3] Family History Problem Relation Name Age of Onset Hypertension Mother Kandice [place] Thyroid disease Mother Kandice [place] Sleep apnea Mother Kandice Dallas Alcohol abuse Mother Kandice Dallas Anxiety disorder Mother Kandice Dallas Depression Mother Kandice Dallas Breast cancer Maternal Grandmother Bonnie Bear Had breast cancer and one breast removed Stroke Maternal Grandmother Bonnie Bear Had a massive stroke Hypertension Maternal Grandmother Bonnie Bear Anxiety disorder Maternal Grandmother Bonnie Bear Depression Maternal Grandmother Bonnie Bear [4] Social History Socioeconomic History Marital status: Highest education level: GED or equivalent Tobacco Use Smoking status: Former Current packs/day: 1.50 Average packs/day: 1.5 packs/day for 0.1 years (0.2 ttl pk-yrs) Types: Cigarettes Start date: 06/21/2024 Passive exposure: Past Smokeless tobacco: Never Vaping Use Vaping status: never used Substance and Sexual Activity Alcohol use: Yes Comment: socially Drug use: Not Currently Sexual activity: Yes Partners: Male control/protection: Other Comment: hysterectomy Social Drivers of Health Food Insecurity: Food Insecurity Present (07/15/2024) Hunger Vital Sign Worried About Running Out of Food in the Last Year: Sometimes true Ran Out of Food in the Last Year: Sometimes true Transportation Needs: No Transportation Needs (07/15/2024) PRAPARE - Transportation Lack of Transportation (Medical): No Lack of Transportation (Non-Medical): No Physical Activity: Insufficiently Active (08/30/2023) Exercise Vital Sign Days of Exercise per Week: 2 days Minutes of Exercise per Session: 10 min Intimate Partner Violence: Not At Risk (07/15/2024) Humiliation, Afraid, Rape, and Kick questionnaire Fear of Current or Ex-Partner: No Emotionally Abused: No Physically Abused: No Sexually Abused: No Housing Stability: Medium Risk (07/15/2024) Housing Stability Housing: Living Situation: I have a place to live today, but I am worried about losing it in the future [5] Outpatient Encounter Medications as of 08/05/2024 Medication Sig Dispense Refill acetaminophen (TYLENOL) 500 mg tablet Take 1,000 mg by mouth every 6 (six) hours as needed for pain. albuterol 2.5 mg /3 mL nebulizer solution Inhale 3 mL (2.5 mg total) by nebulization every 4 (four)hours as needed for wheezing or shortness of breath. 75 mL 2 amoxicillin-pot clavulanate (Augmentin) 875-125 mg per tablet Take 1 tablet by mouth every 12 (twelve) hours for 10 days. 20 tablet 0 buPROPion XL (WELLBUTRIN XL) 150 mg 24 hr tablet Take 1 tablet (150 mg total) by mouth every morning. Take with 300 mg tablet for a total daily dose of 450 mg. 90 tablet 2 buPROPion XL (WELLBUTRIN XL) 300 mg 24 hr tablet Take 1 tablet (300 mg total) by mouth every morning. Take with 150 mg tablet for a total daily dose of 450 mg daily. 90 tablet 2 cholecalciferol (VITAMIN D3) 50 mcg (2,000 Unit) capsule Take 50 mcg by mouth daily. dextroamphetamine sulfate (Dexedrine Spansule) 15 mg ER capsule Take 1 capsule by mouth every morning. dextroamphetamine-amphetamine (ADDERALL) 10 mg tablet Take 1 tablet by mouth between 12pm and 2pm daily* DME CPAP DME Order 1 each 0 DULoxetine (CYMBALTA) [address] capsule Take 60 mg by mouth every morning. elagolix (Orilissa) 150 mg tablet tablet Take 1 tablet (150 mg total) by mouth daily. 30 tablet 11 estradioL (ESTRACE) 0.1 mg/g (0.01%) vaginal cream Insert 1 g into the vagina 3 (three) times a week. Nightly for first week. 42 g 3 fluticasone propion-salmeteroL (Advair HFA) 115-21 mcg/actuation inhaler Inhale 2 puffs 2 (two) times a day. 12 g 3 fluticasone propionate (Flonase) 50 mcg/actuation nasal spray Administer 2 sprays into each nostrildaily for 10 days. 16 g 0 guaiFENesin (Mucinex) 600 mg 12 hr tablet Take 1,200 mg by mouth 2 (two) times a day. ibuprofen 400 mg tablet Take 1 tablet (400 mg total) by mouth every 6 (six) hours as needed for moderate pain or score 4-6 of 10 or severe pain or score 7- 10 of 10 for up to 3 days. 12 tablet 0 ipratropium-albuteroL (DuoNeb) 0.5-2.5 mg/3 mL nebulizer solution Inhale 3 mL by nebulization 4 (four) times a day as needed for shortness of breath. 180 mL 3 lidocaine (Lidoderm) 5 % adhesive patch,medicated Place 1 patch on the skin daily. Apply to painfularea 12 hours per day, remove for 12 hours. 10 patch 0 lisinopriL 10 mg tablet Take 1 tablet (10 mg total) by mouth daily. 90 tablet 3 LORazepam (Ativan) 0.5 mg tablet Take 0.5 mg by mouth daily as needed for anxiety. methocarbamoL (Robaxin) 500 mg tablet Take 1 tablet (500 mg total) by mouth 3 (three) times a day as needed for muscle spasms. 45 tablet 0 multivitamin capsule Take 1 capsule by mouth daily. ondansetron ODT (Zofran-ODT) 4 mg disintegrating tablet Dissolve 1 tablet (4 mg total) in the mouthevery 8 (eight) hours as needed for nausea or vomiting. 20 tablet 0 oxyCODONE (Roxicodone) 5 mg immediate release tablet Take 1.5 tablets (7.5 mg total) by mouth every4 (four) hours as needed for pain Indication: Acute Pain. 27 tablet 0 polyethylene glycol (MIRALAX) 17 gram/dose oral powder Take 17 g by mouth daily. Dissolve each 17 gdose in 240 mL (8 ounces) of beverage. 850 g 3 pregabalin (Lyrica) 200 mg capsule Take 1 capsule (200 mg total) by mouth 3 (three) times a day. 90capsule 3 sennosides (senna) 8.6 mg tablet Take 2 tablets (17.2 mg total) by mouth daily. traZODone (DESYREL) 50 mg tablet TAKE 1-4 TABLETS BY MOUTH ONCE DAILY AT BEDTIME. Ventolin HFA 90 mcg/actuation inhaler INHALE 2 PUFFS EVERY 4 HOURS NEEDED FOR WHEEZING OR SHORTNESS OF BREATH. 54 g 3 Vraylar 4.5 mg capsule Take 4.5 mg by mouth at bedtime. [DISCONTINUED] cefTRIAXone in dextrose, iso osm, (Rocephin) 2 gram/50 mL IVBP Infuse 50 mL (2 g total) into a venous catheter daily for 17 days. Miles ITC [DISCONTINUED] metroNIDAZOLE (FlagyL) 500 mg tablet Take 1 tablet (500 mg total) by mouth 3 (three)times a day for 17 days Indications: Empyema. 51 tablet 0 [DISCONTINUED] sodium chloride 0.9 % injection 10-30 mL No facility-administered encounter medications on file as of 08/05/2024. MANAGEMENT PROFESSOR documented in this encounter Plan of Treatment Upcoming Encounters Date Type Department Care Team (Late st Contact Info) Description 08/30/2024 9:00 AM FARM MANAGEMENT PROFESSOR Office Visit Department of Community Internal Medicine in [place], [place] [address] [facility] [place] [phone] Prudence Mena MPAS, P.A.-C. 300 [facility] [place] [phone] Scheduled Orders Name Type Priority Associated Diagnoses Orde r Schedule CRP (C-Reactive Protein) Lab Add-On Empyema Pleural (HCC) Expected: 08/05/2024, Expires: 11/02/2025 documented as of this encounter Visit Diagnoses Diagnosis Empyema Pleural (HCC) documented in this encounter Additional Health Concerns Assessment Noted Time PHQ-9 Depression Total Score: 22 025 7:19 PM FARM MANAGEMENT PROFESSOR documented as of this encounter Care Teams Data Modeler Relationship Specialty Start Date End Date Prudence Mena MPAS, P.A.-C. 300 [facility] [place] [phone] PCP - General Internal Medicine 02/08/24 documented as of this encounter
--- OUTSIDE RECORDS SUMMARY | 2024-08-28 18:14 | XMS_ITS | Encounter Summary ---
Author Organization [facility] Address [address] [place] [address] Care Team Providers Care Engagement Engineer Name Role Phone Prudence Mena P.A.-C. Primary Care Pro vider Reason for Referral * Outpatient (Routine) - Closed Specialty Diagnoses / Procedures Referred By Contray t Referred To Contact Community Internal Medicine Prudence Mena MPAS, P.A.-C. [address] [place] [address] Phone: tel: fax: [facility] Region Referral ID Status Reason Start Date Expiration Date Visits Re quested Visits Authorized [id number] Closed 08/06/2024 02/05/2026 1 1 E SURGEON Encounter Details Date Type Department Care Team (Late st Contact Info) Description 08/06/2024 Orders Only Department of Community Internal Medicine in [place], [place] 300 [place] [phone] Prudence Mena MPAS, P.A.-C. [address] [place] [phone] Social History Tobacco Use Types [...] How often do you attend tenriism or quaker serv ices? Never 07/27/2022 Do [...] Answer Date Recorded PHQ-2 Score 6 07/10/2024 [facility] - Occupational Stress Questionnaire Answer Date [...] st Contact Info) Description 08/30/2024 9:00 AM SPINE SURGEON Office Visit Department of Community Internal Medicine in [place], [place] [address] [facility] [place] [phone] Prudence Mena MPAS, P.A.-C. 300 [facility] [place] [address] Scheduled Referrals Name Type Priority Associated Diagnoses Orde r Schedule Community Internal Medicine office visit (clinic) Outpatient Referral Routine Expected: 08/20/2024, Expires: 11/03/2025 documented as of this encounter Visit Diagnoses Not on filedocumented in this encounter Additional Health Concerns Assessment Noted Time PHQ-9 Depression Total Score: 22 025 7:19 PM SPINE SURGEON documented as of this encounter Care Teams Engagement Engineer Relationship Specialty Start Date End Date Prudence Mena MPAS, P.A.-C. 300 [facility] [place] [address] PCP - General Internal Medicine 02/08/24 documented as of this encounter
--- OUTSIDE RECORDS SUMMARY | 2024-08-28 18:14 | XMS_ITS | Encounter Summary ---
Author Organization [facility] Address [address] [place] [address] Care Team Providers Care Explosive Specialist Name Role Phone Prudence Mena P.A.-C. Primary Care Pro vider Reason for Visit * Reason Comments Procedure PICC removal * Outpatient (Routine) - Closed Specialty Diagnoses / Procedures Referred By Contac t Referred To Contact Diagnoses [place] Folder Antibiotic Treatment Procedures Remove PICC (non-tunneled) or Midline Catheter Shanel Starr, P.A.-C. [address] [place] [phone] Phone: tel: fax: [facility] Referral ID Status Reason Start Date Expiration Date Visits Re quested Visits Authorized [id number] Closed 07/30/2024 10/30/2025 1 1 Encounter Details Date Type Department Care Team (Late st Contact Info) Description 08/05/2024 12:30 PM AUTOMOTIVE ELECTRICAL FITTER Infusion Department of Infusion Therapy in [place], [place] [address] [place] [phone] Shanel Starr, P.A.-C. [address] [place] [phone] Longterm Antibiotic Treatment Social History Tobacco Use Types Packs/Day Years Used Date Smoking Tobacco: Former Cigarettes 1.5 0.2 S tarted: 06/21/2024 Passive Smoke Exposure: Past Smokeless Tobacco: Never Alcohol Use Standard Drinks/Week Comments Yes 0 (1 standard drink = 0.6 oz pur e alcohol) socially [facility] Utilities Answer Date Recorded In the [...] How often do you attend confucianism or sikh serv ices? Never 07/27/2022 Do [...] Date Recorded PHQ-2 Score 6 07/10/2024 [facility] Questionnaire Answer [...] Sign Reading Time Taken Comments Blood Pressure 120/74 08/05/2024 12:27 PM AUTOMOTIVE ELECTRICAL FITTER Pulse 115 08/05/2024 12:53 PM AUTOMOTIVE ELECTRICAL FITTER Temperature 36.3 C (97.3 F) 08/05/2024 11:57 AM AUTOMOTIVE ELECTRICAL FITTER Respiratory Rate 18 08/05/2024 12:27 PM AUTOMOTIVE ELECTRICAL FITTER Oxygen Saturation 95% 08/05/2024 12:53 PM AUTOMOTIVE ELECTRICAL FITTER Inhaled Oxygen Concentration - - Weight - - Height - - Body Mass Index - - documented in this encounter Plan of Treatment Upcoming Encounters Date Type Department Care Team (Late st Contact Info) Description 08/30/2024 9:00 AM AUTOMOTIVE ELECTRICAL FITTER Office Visit Department of Community Internal Medicine in [place], [place] 300 [place] [address] Prudence Mena MPAS, P.A.-C. 300 [place] [phone] documented as of this encounter Visit Diagnoses Diagnosis [place] Folder Antibiotic Treatment documented in this encounter Additional Health Concerns Assessment Noted Time PHQ-9 Depression Total Score: 22 025 7:19 PM AUTOMOTIVE ELECTRICAL FITTER documented as of this encounter Care Teams Explosive Specialist Relationship Specialty Start Date End Date Prudence Mena MPAS, P.A.-C. 300 [place] [phone] PCP - General Internal Medicine 02/08/24 documented as of this encounter
--- OUTSIDE RECORDS SUMMARY | 2024-08-28 18:14 | XMS_ITS | Encounter Summary ---
Author Organization [facility] Address [address] [place] [address] Care Team Providers Care Meeting Manager Name Role Phone Prudence Mena P.A.-C. Primary Care Pro vider Reason for Visit * Reason Comments Outpatient Infusion Rocephin/lab draw Encounter Details Date Type Department Care Team (Late st Contact Info) Description 08/04/2024 9:00 AM HOT ROLLER Infusion Department of Infusion Therapy in [address] [phone] Melinda Isaac, FRED, C.N.P. [address] [place] [phone] Empyema Pleural (HCC) (Primary Dx); Nursing Home Antibiotic Treatment Social History Tobacco Use Types Packs/Day Years Used Date Smoking Tobacco: Former Cigarettes 1.5 0.2 S tarted: 06/21/2024 Passive Smoke Exposure: Past Smokeless Tobacco: Never Alcohol Use Standard Drinks/Week Comments Yes 0 (1 standard drink = 0.6 oz pur e alcohol) socially [facility] Utilities Answer Date Recorded In the past 12 months has e [employer], gas, oil, or water [employer] threatened to shut off services in your [...] How often do you attend caodaism or yazidism serv ices? Never 07/27/2022 Do [...] Answer Date Recorded PHQ-2 Score 6 07/10/2024 [facility] of Occupat ional Health - Occupational Stress [...] Sign Reading Time Taken Comments Blood Pressure 154/98 08/04/2024 9:23 AM HOT ROLLER Pulse 101 08/04/2024 9:23 AM HOT ROLLER Temperature 35.9 C (96.6 F) 08/04/2024 9:23 AM HOT ROLLER Respiratory Rate 18 08/04/2024 9:23 AM HOT ROLLER Oxygen Saturation 100% 08/04/2024 9:23 AM HOT ROLLER Inhaled Oxygen Concentration - - Weight - - Height - - Body Mass Index - - documented in this encounter Plan of Treatment Upcoming Encounters Date Type Department Care Team (Late st Contact Info) Description 08/30/2024 9:00 AM HOT ROLLER Office Visit Department of Community Internal Medicine in [place], [place] 300 [facility] [place] [phone] Prudence Mena MPAS, P.A.-C. 300 [place] [phone] documented as of this encounter Procedures Procedure Name Priority Date/Time Associated Diagnosis Comments CBC WITH DIFFERENTIAL, B Routine 025 9:11 AM HOT ROLLER Nursing Home Antibiotic Treatment ALANINE AMINOTRANSFERASE (ALT), S/P Routine 08/04/2024 9:11 AM HOT ROLLER Motorcycle Subassembly Repairer Antibiotic Treatment ALKALINE PHOSPHATASE, S/P Routine 08/04/2024 9:11 AM HOT ROLLER Motorcycle Subassembly Repairer Antibiotic Treatment CREATININE WITH EGFR, S/P Routine 08/04/2024 9:11 AM HOT ROLLER Motorcycle Subassembly Repairer Antibiotic Treatment documented in this encounter Results * (ABNORMAL) Alkaline Phosphatase (08/04/2024 9:11 AM HOT ROLLER) Alkaline Phosphatase, P 106(H) 35 - 104 U/L 08/04/2024 9:42 AM HOT ROLLER RDWG Blood (Blood, PICC) 08/04/2024 9:11 AM HOT ROLLER 08/04/2024 9:21 AM HOT ROLLER us Melinda TO, P.A.-C., M.S. LAB BLOOD ADD-ON Final Result [facility] [address] [place] [address] RDW[facility] in [place] [address] * ALT (Alanine Aminotransferase) (08/04/2024 9:11 AM HOT ROLLER) Alanine Aminotransferase (ALT), P 10 7 - 45 U/L 08/04/2024 9:42 AM HOT ROLLER RDWG Blood (Blood, PICC) 08/04/2024 9:11 AM HOT ROLLER 08/04/2024 9:21 AM HOT ROLLER us Melinda TO, P.A.-C., M.S. LAB BLOOD ADD-ON Final Result [facility] [place] [address], [facility] R[facility] in [place] [address] [place] [address] * (ABNORMAL) Creatinine with Estimated GFR (08/04/2024 9:11 AM HOT ROLLER) Creatinine 0.44(L) 0.59 - 1.04 mg/dL 08/04/2024 9:42 AM HOT ROLLER RDWG Estimated GFR (eGFR) >90 >=60 mL/min/BSA 08/04/2024 9:42 AM HOT ROLLER RDWG Comment: Estimated GFR calculated using the 2020 CKD_EPI creatinine equation. Blood (Blood, PICC) 08/04/2024 9:11 AM HOT ROLLER 08/04/2024 9:21 AM HOT ROLLER us Melinda TO, P.A.-C., M.S. LAB BLOOD ADD-ON Final Result [facility] [place] [address], [facility] [place] [address] * (ABNORMAL) CBC with Differential, Blood (08/04/2024 9:11 AM HOT ROLLER) Hemoglobin 10.8(L) 11.6 - 15.0 g/dL 08/04/2024 9:24 AM HOT ROLLER RDWG Hematocrit 35.3(L) 35.5 - 44.9 % 08/04/2024 9:24 AM HOT ROLLER RDWG Erythrocytes 4.14 3.92 - 5.13 x10(12)/L 08/04/2024 9:24 AM HOT ROLLER RDWG MCV 85.3 78.2 - 97.9 fL 08/04/2024 9:24 AM HOT ROLLER RDWG RBC Distrib Width 15.4 12.2 - 16.1 % 08/04/2024 9:24 AM HOT ROLLER RDWG Platelet Count 795(H) 157 - 371 x10(9)/L 08/04/2024 9:24 AM HOT ROLLER RDWG Leukocytes 16.2(H) 3.4 - 9.6 x10(9)/L 08/04/2024 9:24 AM HOT ROLLER RDWG Neutrophils 13.51(H) 1.56 - 6.45 x10(9)/L 08/04/2024 9:24 AM HOT ROLLER RDWG Lymphocytes 1.65 0.95 - 3.07 x10(9)/L 08/04/2024 9:24 AM HOT ROLLER RDWG Monocytes 0.65 0.26 - 0.81 x10(9)/L 08/04/2024 9:24 AM HOT ROLLER RDWG Eosinophils 0.28 0.03 - 0.48 x10(9)/L 08/04/2024 9:24 AM HOT ROLLER RDWG Basophils 0.08 0.01 - 0.08 x10(9)/L 08/04/2024 9:24 AM HOT ROLLER RDWG Blood (Blood, PICC) 08/04/2024 9:11 AM HOT ROLLER 08/04/2024 9:21 AM HOT ROLLER us Melinda TO, P.A.-C., M.S. LAB BLOOD ADD-ON Final Result [facility] [address] [address], [facility] RDWG [facility] in [place] [address] [phone] documented in this encounter Visit Diagnoses Diagnosis Empyema Pleural (HCC)- Primary Motorcycle Subassembly Repairer Antibiotic Treatment documented in this encounter Administered Medications Inactive Administered Medications - up to 3 most recent administrations Medication Order MAR Action Action Date Dose Rate Site cefTRIAXone injection 2 g (Rocephin) 2 g, intravenous, Once, On 08/04/24 at 0915, For 1 dose, Every 24 hours If needed, reconstitute vial per package insert instructions. See IVAG for administration guidelines., Drug Monitoring Program: Pharmacist to adjust medication dosing based on indication and drug clearance factors., Indications: Respiratory tract infection, community acquiredIndications:Respiratory tract infection, community acquired Given 08/04/2024 9:18 AM HOT ROLLER 2 g sodium chloride 0.9 % injection 10-30 mL 10-30 mL, intravenous, As needed, line care, Starting on 08/04/24 at 0855, Prior to and following infusion, between multiple consecutive infusions.10 mL to each lumen.Indications:Empyema Pleural (HCC) Given 08/04/2024 9:19 AM HOT ROLLER 20 mL Given 08/04/2024 9:18 AM HOT ROLLER 10 mL documented in this encounter Additional Health Concerns Assessment Noted Time PHQ-9 Depression Total Score: 22 025 7:19 PM HOT ROLLER documented as of this encounter Care Teams Meeting Manager Relationship Specialty Start Date End Date Prudence Mena MPAS, P.A.-C. [address] [place] [address] [address] [place] [phone] PCP - General Internal Medicine 02/08/24 documented as of this encounter
--- OUTSIDE RECORDS SUMMARY | 2024-08-28 18:15 | XMS_ITS | Encounter Summary ---
Author Organization [facility] Address [address] [place] [address] Care Team Providers Care Hardware Supplies Sales Representative Name Role Phone Prudence Mena P.A.-C. Primary Care Pro vider Reason for Visit * Reason Comments Outpatient Infusion Encounter Details Date Type Department Care Team (Late st Contact Info) Description 07/31/2024 8:00 AM VALVE INSPECTOR Infusion Department of Infusion Therapy in [address] [phone] Melinda Isaac, FRED, C.N.P. [address] [place] [phone] Empyema Pleural (HCC) (Primary Dx) Social History Tobacco Use Types Packs/Day Years Used Date Smoking Tobacco: Former Cigarettes 1.5 0.2 S tarted: 06/21/2024 Passive Smoke Exposure: Past Smokeless Tobacco: Never Alcohol Use Standard Drinks/Week Comments Yes 0 (1 standard drink = 0.6 oz pur e alcohol) socially [facility] Utilities Answer Date Recorded In [...] Never 07/27/2022 How often do you attend religious or orthodoxy serv ices? Never 07/27/2022 Do you belong to any clubs o r organizations such as religious groups, unions, fraternal or athletic groups, or [...] Date Recorded PHQ-2 Score 6 07/10/2024 [facility] [place] of Occupat ional Health - Occupational Stress [...] Sign Reading Time Taken Comments Blood Pressure 148/92 07/31/2024 8:14 AM VALVE INSPECTOR Pulse 113 07/31/2024 8:14 AM VALVE INSPECTOR Temperature 35.6 C (96.1 F) 07/31/2024 8:14 AM VALVE INSPECTOR Respiratory Rate 18 07/31/2024 8:14 AM VALVE INSPECTOR Oxygen Saturation 96% 07/31/2024 8:14 AM VALVE INSPECTOR Inhaled Oxygen Concentration - - Weight - - Height - - Body Mass Index - - documented in this encounter Plan of Treatment Upcoming Encounters Date Type Department Care Team (Late st Contact Info) Description 08/30/2024 9:00 AM VALVE INSPECTOR Office Visit Department of Community Internal Medicine in [place], [place] 300 [facility] [place] [phone] Prudence Mena MPAS, P.A.-C. 300 [place] [phone] documented as of this encounter Visit Diagnoses Diagnosis Empyema Pleural (HCC)- Primary documented in this encounter Administered Medications Inactive Administered Medications - up to 3 most recent administrations Medication Order MAR Action Action Date Dose Rate Site cefTRIAXone injection 2 g (Rocephin) 2 g, intravenous, Once, On Mon07/31/24 at 0830, For 1 dose, Every 24 hours If needed, reconstitute vial per package insert instructions. See IVAG for administration guidelines., Drug Monitoring Program: Pharmacist to adjust medication dosing based on indication and drug clearance factors., Indications: Respiratory tract infection, community acquiredIndications:Respiratory tract infection, community acquired Given 07/31/2024 8:16 AM VALVE INSPECTOR 2 g sodium chloride 0.9 % injection 10-30 mL 10-30 mL, intravenous, As needed, line care, Starting on Mon07/31/24 at 0757, Prior to and following infusion, between multiple consecutive infusions.10 mL to each lumen.Indications:Empyema Pleural (HCC) Given 07/31/2024 8:21 AM VALVE INSPECTOR 10 mL Given 07/31/2024 8:15 AM VALVE INSPECTOR 10 mL documented in this encounter Additional Health Concerns Assessment Noted Time PHQ-9 Depression Total Score: 22 025 7:19 PM VALVE INSPECTOR documented as of this encounter Care Teams Hardware Supplies Sales Representative Relationship Specialty Start Date End Date Prudence Mena MPAS, P.A.-C. 300 [place] [phone] PCP - General Internal Medicine 02/08/24 documented as of this encounter
--- OUTSIDE RECORDS SUMMARY | 2024-08-28 18:15 | XMS_ITS | Encounter Summary ---
Author Organization [facility] Address [address] [place] [address] Care Team Providers Care Basket Person Name Role Phone Prudence Mena P.A.-C. Primary Care Pro vider Reason for Visit * Reason Onset Date Comments Results 07/29/2024 Encounter Details Date Type Department Care Team (Late st Contact Info) Description 07/29/2024 Clinical Communication Department of Oncology in [place], [place] [address] [place] [phone] Denae Headley R.N. [address] [place] [phone] Results Social History Tobacco Use Types Packs/Day Years Used Date Smoking Tobacco: Former Cigarettes 1.5 0.2 S tarted: 06/21/2024 Passive Smoke Exposure: Past Smokeless Tobacco: Never Alcohol Use Standard Drinks/Week Comments Yes 0 (1 standard drink = 0.6 oz pur e alcohol) socially [facility] Utilities Answer Date Recorded In the past 12 months has [employer], gas, oil, or water [employer] threatened to shut off services in your [...] Never 07/27/2022 How often do you attend anabaptism or episcopalian serv ices? Never 07/27/2022 Do you belong to any clubs o r organizations such as anabaptism groups, unions, fraternal or athletic groups, or [...] Answer Date Recorded PHQ-2 Score 6 07/10/2024 [facility] of Occupat ional Health - [...] st Contact Info) Description 08/30/2024 9:00 AM SENIOR COMPUTER SPECIALIST Office Visit Department of Community Internal Medicine in [place], [place] 300 [facility] [place] [phone] Prudence Mena MPAS, P.A.-C. 300 [facility] [place] [phone] documented as of this encounter Visit Diagnoses Not on filedocumented in this encounter Additional Health Concerns Assessment Noted Time PHQ-9 Depression Total Score: 22 025 7:19 PM SENIOR COMPUTER SPECIALIST documented as of this encounter Care Teams Basket Person Relationship Specialty Start Date End Date Prudence Mena MPAS, P.A.-C. 300 [place] [phone] PCP - General Internal Medicine 02/08/24 documented as of this encounter
--- OUTSIDE RECORDS SUMMARY | 2024-08-28 18:15 | XMS_ITS | Encounter Summary ---
Author Organization [facility] Address [address] [place] [address] Care Team Providers Care Real Estate Assessor Name Role Phone Prudence Mena P.ADmitry-CDmitry Primary Care Pro vider Reason for Visit * Reason Comments Follow-up [place] [facility] to [facility]- surgery * Appointment Request (Routine) - Pending Review Specialty Diagnoses / Procedures Referred By Talia galeas Referred To Contact Community Internal Medicine Referral ID Status Reason Start Date Expiration Date V isits Requested Visits Authorized [id number] Pending Review 07/22/2024 10/22/2025 1 1 Encounter Details Date Type Department Care Team (Late st Contact Info) Description 07/29/2024 2:20 PM ENGINEER THIRD ASSISTANT Office Visit Department of Community Internal Medicine in [place], [place] 300 [place] [phone] Prudence Mena MPAS P.A.-CDmitry 300 [place] [phone] Stool Positive Occult Blood (Primary Dx); Empyema Pleural (HCC); Nausea; Major Depressive Disorder, Recurrent, Unspecified (HCC); Asthma (HCC) Social History Tobacco Use Types Packs/Day Years Used Date Smoking Tobacco: Former Cigarettes 1.5 0.2 S tarted: 06/21/2024 Passive Smoke Exposure: Past Smokeless Tobacco: Never Tobacco Cessation:Counseling Given: Not Answered Alcohol Use Standard Drinks/Week Comments Yes 0 (1 standard drink = 0.6 oz pur e alcohol) socially [facility] Utilities Answer Date Recorded In the past 12 months has th e electric, [employer], oil, or water [employer] threatened to shut off services in your [...] Never 07/27/2022 How often do you attend adventism or yazidism serv ices? Never 07/27/2022 Do you belong to any clubs o r organizations such as adventism groups, unions, fraternal or athletic groups, or [...] Answer Date Recorded PHQ-2 Score 6 07/10/2024 [facility] [place] of Occupat ional Health - Occupational Stress [...] Sign Reading Time Taken Comments Blood Pressure 140/93 07/29/2024 2:28 PM ENGINEER THIRD ASSISTANT Pulse 106 07/29/2024 2:28 PM ENGINEER THIRD ASSISTANT Temperature 36 C (96.8 F) 07/29/2024 2:12 PM ENGINEER THIRD ASSISTANT Respiratory Rate - - Oxygen Saturation 97% 07/29/2024 2:12 PM ENGINEER THIRD ASSISTANT Inhaled Oxygen Concentration - - Weight 92 kg (202 lb 13.2 oz) 07/29/2024 2:12 PM ENGINEER THIRD ASSISTANT Height 163 cm (5' 4.17) 07/29/2024 2:12 PM ENGINEER THIRD ASSISTANT Body Mass Index 34.63 07/29/2024 2:12 PM ENGINEER THIRD ASSISTANT documented in this encounter Progress Notes * Prudence Mena MPAS, P.A.-C. - 07/29/2024 2:20 PM CST SUBJECTIVE CHIEF COMPLAINT/REASON FOR VISIT Chief Complaint Patient presents with Follow-up [place] [facility] to [facility]- surgery HISTORY OF PRESENT ILLNESS Melinda Kumar is a pleasant 39 y.o. female who presents to the clinic today for post hospital follow-up. She was admitted to [facility] 07/13/2024 and discharged 07/20/2024 with a principal diagnosis of pleural empyema. She had a robotic thoracoscopy decortication on 07/15. She was discharged on IV ceftriaxone and oral metronidazole. Follow-up was arranged with the Infectious Disease at hospital discharge, upcoming clinic visit scheduled next week. She was seen in the ED 07/[address] chest continued to show pulmonary interstitial and airspace opacities compatible with pneumonia and small left pleural effusion. She has been taking oxycodone for pain management at adose of 5 mg every 4 hours since hospital discharge but does not feel her pain is well managed. Shetakes Tylenol 500 mg every 4 hours. She is unable to take NSAID medication as this upsets her stomach even when she takes this medication with food. She plans to resume use of pain patches. She feelsnauseous due to pain when she feels oxycodone is wearing off. She has been taking Zofran 4 mg every8 hours. She denies fevers. She is using her spirometer at home. She feels shortness a breath has improved compared to our previous clinic visit together. She is also no longer needing to prop herself up with pillows at night. She has a mild cough. No vomiting. She is receiving her infusion antibiot ic therapy in [place]. The following portions of the patient's history were reviewed and updated as appropriate: current medications and problem list. Pertinent positive ROS are listed above in HPI. Problem List[1] ALLERGIES/CONTRAINDICATIONS Allergies[2] CURRENT MEDICATIONS Current Medications[3] OBJECTIVE VITAL SIGNS Vitals: 07/29/24 1428 BP: (!) 140/93 Pulse: 106 Temp: SpO2: PHYSICAL EXAMINATION General: Well-nourished, well-developed 39 y.o. in no apparent distress. Awake, alert, age appropriate. Cardiovascular: Regular rate and rhythm without murmurs. Lungs: Decreased breath sounds left lung base Skin: Incisions healing well. Incision under left breast remains open, has not scabbed over like other incisions. No pus drainage. Neurologic: Alert and oriented x3. ASSESSMENT / PLAN IMPRESSION/REPORT/PLAN: #1 Empyema Pleural (HCC) Patient has improved clinically compared to my last visit with her just prior to her recent hospital admission. She continues on antibiotic therapy as outlined by ID Team and will continue with dailyinfusions. She has lab monitoring once weekly while on antibiotic therapy. Her incisions from her thoracic surgery are overall healing well. I asked that she make sure incision under left breast is getting cleaned regularly as it looks like the healing is a bit delayed given the location under breast tissue. She continues to have pain over left chest wall. We will increase oxycodone from 5 mg to 7.5 mg every 4 hours. She will continue scheduled Tylenol and will resume use of pain patches. Reminded patient she is not able to drive when taking this medication. I have sent this prescription to her pharmacy. She will follow-up with Infectious Disease next week. #2 Nausea This seems to be an issue mostly when she is in pain. I have refilled Zofran 4 mg every 8 hours. #3 Stool Positive Occult Blood We discussed this at previous clinic visit. Reminder that patient will complete stool hemoquant test when she has recovered from above. #4 Major Depressive Disorder, Recurrent, Unspecified (HCC) She will continue to follow with her psychiatrist. #5 Asthma (HCC) Continue fluticasone inhaler and albuterol/DuoNeb as needed. Other orders - ondansetron ODT (Zofran-ODT) 4 mg disintegrating tablet; Dissolve 1 tablet (4 mg total) in the mouth every 8 (eight) hours as needed for nausea or vomiting., Starting Mon07/29/2024, Normal - oxyCODONE (Roxicodone) 5 mg immediate release tablet; Take 1.5 tablets (7.5 mg total) by mouth every 4 (four) hours as needed for pain Indication: Acute Pain., Starting Mon07/29/2024, Normal If symptoms worsen or do not improve, patient is instructed to seek further medical attention. All questions have been answered. Patient demonstrated understanding and verbalized agreement with the plan. Total time spent: 30 minutes YOUSUF Pathak, P.A.-C. [1] Patient Active [...] mg daily., Disp: 90 tablet, Rfl: 2 cefTRIAXone in dextrose, iso osm, (Rocephin) 2 gram/50 mL IVBP, Infuse 50 mL (2 g total) into a venous catheter daily for 17 days. [facility], Disp: , Rfl: cholecalciferol (VITAMIN D3) 50 mcg (2,000 Unit) [...] muscle spasms., Disp: 45 tablet, Rfl: 0 metroNIDAZOLE (FlagyL) 500 mg tablet, Take 1 tablet (500 mg total) by mouth 3 (three) times a day for 17 days Indications: Empyema., Disp: 51 tablet, Rfl: 0 multivitamin capsule, Take 1 capsule by mouth daily., Disp: , Rfl: ondansetron (Zofran) 4 mg tablet, Take 1 tablet (4 mg total) by mouth every 8 (eight) hours as needed for nausea or vomiting for up to 3 days., Disp: 10 tablet, Rfl: 0 polyethylene glycol (MIRALAX) 17 gram/dose oral powder, Take 17 g by mouth daily. Dissolve each 17 g dose in 240 mL (8 ounces) of beverage., Disp: 850 g, Rfl: 3 pregabalin (Lyrica) 200 mg capsule, Take 1 capsule (200 mg total) by mouth 3 (three) times a day., Disp: 90 capsule, Rfl: 3 sennosides (senna) 8.6 mg tablet, Take 2 tablets (17.2 mg total) by mouth daily., Disp: , Rfl: traZODone (DESYREL) 50 mg tablet, TAKE 1-4 TABLETS BY MOUTH ONCE DAILY AT BEDTIME., Disp: , Rfl: Ventolin HFA 90 mcg/actuation inhaler, INHALE 2 PUFFS EVERY 4 HOURS NEEDED FOR WHEEZING OR SHORTNESS OF BREATH., Disp: 54 g, Rfl: 3 Vraylar 4.5 mg capsule, Take 4.5 mg by mouth at bedtime., Disp: , Rfl: DME CPAP, DME Order (Patient not taking: Reported on 07/29/2024), Disp: 1 each, Rfl: 0 ondansetron ODT (Zofran-ODT) 4 mg disintegrating tablet, Dissolve 1 tablet (4 mg total) in the mouth every 8 (eight) hours as needed for nausea or vomiting., Disp: 20 tablet, Rfl: 0 oxyCODONE (Roxicodone) 5 mg immediate release tablet, Take 1.5 tablets (7.5 mg total) by mouth every 4 (four) hours as needed for pain Indication: Acute Pain., Disp: 27 tablet, Rfl: 0 No current facility-administered medications for this visit. NEER THIRD ASSISTANT documented in this encounter Plan of Treatment Upcoming Encounters Date Type Department Care Team (Late st Contact Info) Description 08/30/2024 9:00 AM ENGINEER THIRD ASSISTANT Office Visit Department of Community Internal Medicine in [place], [place] [address] [place] [phone] Prudence Mena MPAS, P.A.-C. 300 [place] [phone] documented as of this encounter Visit Diagnoses Diagnosis Stool Positive Occult Blood- Primary Empyema Pleural (HCC) Nausea Major Depressive Disorder, Recurrent, Unspecified (HCC) Asthma (HCC) documented in this encounter Additional Health Concerns Assessment Noted Time PHQ-9 Depression Total Score: 22 025 7:19 PM ENGINEER THIRD ASSISTANT documented as of this encounter Care Teams Real Estate Assessor Relationship Specialty Start Date End Date Prudence Mena MPAS, P.A.-C. 300 [place] [phone] PCP - General Internal Medicine 02/08/24 documented as of this encounter
--- OUTSIDE RECORDS SUMMARY | 2024-08-28 18:15 | XMS_ITS | Encounter Summary ---
Author Organization [facility] Address [address] [place] [address] Care Team Providers Care Color Stripper Name Role Phone Prudence Mena P.A.-C. Primary Care Pro vider Reason for Visit * Reason Onset Date Comments Med Refill 08/01/2024 Encounter Details Date Type Department Care Team (Late st Contact Info) Description 08/01/2024 Refill Department of Community Internal Medicine in [place], [place] [address] [place] [address] Prudence Mena MPAS, P.A.-CDmitry 300 [place] [address] Med Refill Social History Tobacco Use Types Packs/Day Years Used Date Smoking Tobacco: Former Cigarettes 1.5 0.2 S tarted: 06/21/2024 Passive Smoke Exposure: Past Smokeless Tobacco: Never Alcohol Use Standard Drinks/Week Comments Yes 0 (1 standard drink = 0.6 oz pur e alcohol) socially [facility] Utilities Answer Date Recorded In the [...] How often do you attend worship or hindu serv ices? Never 07/27/2022 Do [...] Answer Date Recorded PHQ-2 Score 6 07/10/2024 [facility] - Occupational [...] st Contact Info) Description 08/30/2024 9:00 AM HEATER PLANER OPERATOR Office Visit Department of Community Internal Medicine in [place], [place] [address] [place] [address] Prudence Mena MPAS, P.A.-C. 300 [facility] [place] [address] documented as of this encounter Visit Diagnoses Not on filedocumented in this encounter Additional Health Concerns Assessment Noted Time PHQ-9 Depression Total Score: 22 025 7:19 PM HEATER PLANER OPERATOR documented as of this encounter Care Teams Color Stripper Relationship Specialty Start Date End Date Prudence Mena MPAS, P.A.-C. 300 [facility] [place] [address] PCP - General Internal Medicine 02/08/24 documented as of this encounter
--- OUTSIDE RECORDS SUMMARY | 2024-08-28 18:15 | XMS_ITS | Encounter Summary ---
Author Organization [facility] Address [address] [place] [address] Care Team Providers Care Pump Station Operator Name Role Phone Prudence Mena P.A.-C. Primary Care Pro vider Reason for Visit * Reason Comments Central line draw Outpatient Infusion * Outpatient (Routine) - Closed Specialty Diagnoses / Procedures Referred By Contac t Referred To Contact Diagnoses Empyema Pleural (HCC) Procedures Perform central pipeline gang supervisor: Flush port(s), Site care Melinda Isaac APRN, C.N.P. [address] [place] [phone] Phone: tel: fax: [facility] Referral ID Status Reason Start Date Expiration Date Visits Re quested Visits Authorized [id number] Closed 07/19/2024 07/19/2025 1 1 Encounter Details Date Type Department Care Team (Late st Contact Info) Description 07/29/2024 10:00 AM COLLECTION CORRESPONDENT Infusion Department of Infusion Therapy in [address] [phone] Melinda Isaac APRN, C.N.P. [address] [place] [phone] Empyema Pleural (HCC) (Primary Dx) Social History Tobacco Use Types Packs/Day Years Used Date Smoking Tobacco: Former Cigarettes 1.5 0.2 S tarted: 06/21/2024 Passive Smoke Exposure: Past Smokeless Tobacco: Never Alcohol Use Standard Drinks/Week Comments Yes 0 (1 standard drink = 0.6 oz pur e alcohol) socially [facility] Utilities Answer Date Recorded In [...] Never 07/27/2022 How often do you attend episcopal or jehovah's witness serv ices? Never 07/27/2022 Do you belong to any clubs o r organizations such as episcopal groups, unions, fraternal or athletic groups, or [...] Answer Date Recorded PHQ-2 Score 6 07/10/2024 [facility] - Occupational Stress Questionnaire Answer [...] Sign Reading Time Taken Comments Blood Pressure 134/99 07/29/2024 10:22 AM COLLECTION CORRESPONDENT Pulse 18 07/29/2024 10:22 AM COLLECTION CORRESPONDENT Temperature 36 C (96.8 F) 07/29/2024 10:22 AM COLLECTION CORRESPONDENT Respiratory Rate 18 07/29/2024 10:22 AM COLLECTION CORRESPONDENT Oxygen Saturation 92% 07/29/2024 10:22 AM COLLECTION CORRESPONDENT Inhaled Oxygen Concentration - - Weight - - Height - - Body Mass Index - - documented in this encounter Progress Notes * Denae Headley, R.N. - 07/29/2024 10:00 AM CST Melinda Kumar reported to the [facility] for her scheduled Rocephin and weekly PICC lab draw. She reports increased pain on her LLQ abdomen that is not going away. She stated that she contacted the surgery team and was advised to contact [facility]. This RN forwarded her concerns to the IFD in- basket asking that the patient be contacted by phone [phone] when lab results are reviewed. ECTION CORRESPONDENT documented in this encounter Plan of Treatment Upcoming Encounters Date Type Department Care Team (Late st Contact Info) Description 08/30/2024 9:00 AM COLLECTION CORRESPONDENT Office Visit Department of Community Internal Medicine in [place], [place] 300 [place] [phone] Prudence Mena MPAS, P.A.-C. 300 [place] [phone] documented as of this encounter Procedures Procedure Name Priority Date/Time Associated Diagnosis Comments CBC WITH DIFFERENTIAL, B Routine 025 10:15 AM COLLECTION CORRESPONDENT Empyema Pleural (HCC) ALANINE AMINOTRANSFERASE (ALT), S/P Routine 07/29/2024 10:15 AM COLLECTION CORRESPONDENT Empyema Pleural (HCC) ALKALINE PHOSPHATASE, S/P Routine 07/29/2024 10:15 AM COLLECTION CORRESPONDENT Empyema Pleural (HCC) CREATININE WITH EGFR, S/P Routine 07/29/2024 10:15 AM COLLECTION CORRESPONDENT Empyema Pleural (HCC) documented in this encounter Results * (ABNORMAL) Creatinine with Estimated GFR (07/29/2024 10:15 AM COLLECTION CORRESPONDENT) Creatinine 0.53(L) 0.59 - 1.04 mg/dL 07/29/2024 10:39 AM COLLECTION CORRESPONDENT CNFL Estimated GFR (eGFR) >90 >=60 mL/min/BSA 07/29/2024 10:39 AM COLLECTION CORRESPONDENT CNFL Comment: Estimated GFR calculated using the 2020 CKD_EPI creatinine equation. Blood (Blood, PICC) 07/29/2024 10:15 AM COLLECTION CORRESPONDENT 07/29/2024 10:18 AM COLLECTION CORRESPONDENT us Melinda Isaac APRN, C.N.P. LAB BLOOD ADD-ON Final Result Performing Organization Address City/[facility]/ZIP Co de Phone Number [facility] [address] [place] [address], [facility] [place] [address] * Alkaline Phosphatase (07/29/2024 10:15 AM COLLECTION CORRESPONDENT) Alkaline Phosphatase, P 97 35 - 104 U/L 07/29/2024 10:39 AM COLLECTION CORRESPONDENT CNFL Blood (Blood, PICC) 07/29/2024 10:15 AM COLLECTION CORRESPONDENT 07/29/2024 10:18 AM COLLECTION CORRESPONDENT us Melinda Isaac APRN, C.N.P. LAB BLOOD ADD-ON Final Result [facility] [address] [place] [address], [address] [address] * ALT (Alanine Aminotransferase) (07/29/2024 10:15 AM COLLECTION CORRESPONDENT) Alanine Aminotransferase (ALT), P 15 7 - 45 U/L 07/29/2024 10:39 AM COLLECTION CORRESPONDENT CNFL Blood (Blood, PICC) 07/29/2024 10:15 AM COLLECTION CORRESPONDENT 07/29/2024 10:18 AM COLLECTION CORRESPONDENT Melinda Isaac APRN, C.N.P. LAB BLOOD ADD-ON Final Result [address] [address], [facility] in [address] [address] * (ABNORMAL) CBC with Differential, Blood (07/29/2024 10:15 AM COLLECTION CORRESPONDENT) Hemoglobin 10.2(L) 11.6 - 15.0 g/dL 07/29/2024 10:28 AM COLLECTION CORRESPONDENT CNFL Hematocrit 33.5(L) 35.5 - 44.9 % 07/29/2024 10:28 AM COLLECTION CORRESPONDENT CNFL Erythrocytes 3.82(L) 3.92 - 5.13 x10(12)/L 07/29/2024 10:28 AM COLLECTION CORRESPONDENT CNFL MCV 87.7 78.2 - 97.9 fL 07/29/2024 10:28 AM COLLECTION CORRESPONDENT CNFL RBC Distrib Width 14.9 12.2 - 16.1 % 07/29/2024 10:28 AM COLLECTION CORRESPONDENT CNFL Platelet Count 837(H) 157 - 371 x10(9)/L 07/29/2024 10:28 AM COLLECTION CORRESPONDENT CNFL Leukocytes 16.0(H) 3.4 - 9.6 x10(9)/L 07/29/2024 10:28 AM COLLECTION CORRESPONDENT CNFL Neutrophils 13.54(H) 1.56 - 6.45 x10(9)/L 07/29/2024 10:28 AM COLLECTION CORRESPONDENT CNFL Lymphocytes 1.31 0.95 - 3.07 x10(9)/L 07/29/2024 10:28 AM COLLECTION CORRESPONDENT CNFL Monocytes 0.62 0.26 - 0.81 x10(9)/L 07/29/2024 10:28 AM COLLECTION CORRESPONDENT CNFL Eosinophils 0.39 0.03 - 0.48 x10(9)/L 07/29/2024 10:28 AM COLLECTION CORRESPONDENT CNFL Basophils 0.12(H) 0.01 - 0.08 x10(9)/L 07/29/2024 10:28 AM COLLECTION CORRESPONDENT CNFL Blood (Blood, PICC) 07/29/2024 10:15 AM COLLECTION CORRESPONDENT 07/29/2024 10:18 AM COLLECTION CORRESPONDENT us Melinda Isaac APRN, C.N.P. LAB BLOOD ADD-ON Final Result Performing Organization Address City/State/[facility] Co de Phone Number [facility] [address] [place] [address], [facility] CNFL [facility] [place] [address] documented in this encounter Visit Diagnoses Diagnosis Empyema Pleural (HCC)- Primary documented in this encounter Administered Medications Inactive Administered Medications - up to 3 most recent administrations Medication Order MAR Action Action Date Dose Rate Site cefTRIAXone injection 2 g (Rocephin) 2 g, intravenous, Once, On Mon07/29/24 at 1030, For 1 dose, Every 24 hours If needed, reconstitute vial per package insert instructions. See IVAG for administration guidelines., Drug Monitoring Program: Pharmacist to adjust medication dosing based on indication and drug clearance factors., Indications: Respiratory tract infection, community acquiredIndications:Respiratory tract infection, community acquired Given 07/29/2024 10:36 AM COLLECTION CORRESPONDENT 2 g sodium chloride 0.9 % injection 10-30 mL 10-30 mL, intravenous, As needed, line care, Starting on Mon07/29/24 at 1004, When no infusion to maintain patency. Flush every 7 days to each lumen. 10 mL to each lumenIndications:Empyema Pleural (HCC) Given 07/29/2024 10:41 AM COLLECTION CORRESPONDENT 10 mL Given 07/29/2024 10:35 AM COLLECTION CORRESPONDENT 10 mL documented in this encounter Additional Health Concerns Assessment Noted Time PHQ-9 Depression Total Score: 22 025 7:19 PM COLLECTION CORRESPONDENT documented as of this encounter Care Teams Pump Station Operator Relationship Specialty Start Date End Date Prudence Mena MPAS, P.A.-C. [address] [place] [address] [place] [phone] PCP - General Internal Medicine 02/08/24 documented as of this encounter
--- OUTSIDE RECORDS SUMMARY | 2024-08-28 18:15 | XMS_ITS | Encounter Summary ---
Author Organization [facility] Address [address] [place] [address] Care Team Providers Care Sugar Laboratory Assistant Name Role Phone [place] Prudence Jatin TOADmitry-Demarcus Primary Care Pro vider Reason for Visit * Outpatient (Routine) - Closed Specialty Diagnoses / Procedures Referred By Contac t Referred To Contact Diagnoses Fpc Antibiotic Treatment Procedures Perform central interline clerk: Site care Melinda Cohen MPAS P.A.-C., M.S. 200 [place] [address] Phone: tel: fax: [facility] Region Referral ID Status Reason Start Date Expiration Date Visits Re quested Visits Authorized [id number] Closed 07/22/2024 10/22/2025 1 1 Encounter Details Date Type Department Care Team (Late st Contact Info) Description 08/01/2024 7:00 AM NASCAR RACER Infusion Department of Infusion Therapy in [address] [phone] Melinda Isaac APRN, C.N.P. [address] [place] [phone] Empyema Pleural (HCC) (Primary Dx); Fpc Antibiotic Treatment Social History Tobacco Use Types Packs/Day Years Used Date Smoking Tobacco: Former Cigarettes 1.5 0.2 S tarted: 06/21/2024 Passive Smoke Exposure: Past Smokeless Tobacco: Never Alcohol Use Standard Drinks/Week Comments Yes 0 (1 standard drink = 0.6 oz pur e alcohol) socially [facility] Utilities Answer Date Recorded In the past [...] How often do you attend yarsani or oriental orthodox serv ices? Never 07/27/2022 [...] Answer Date Recorded PHQ-2 Score 6 07/10/2024 [facility] Occupat [facility] - Occupational Stress Questionnaire Answer Date [...] Sign Reading Time Taken Comments Blood Pressure 116/69 08/01/2024 7:21 AM NASCAR RACER Pulse 110 08/01/2024 7:21 AM NASCAR RACER Temperature 35.9 C (96.6 F) 08/01/2024 7:21 AM NASCAR RACER Respiratory Rate 18 08/01/2024 7:21 AM NASCAR RACER Oxygen Saturation 94% 08/01/2024 7:21 AM NASCAR RACER Inhaled Oxygen Concentration - - Weight - - Height - - Body Mass Index - - documented in this encounter Plan of Treatment Upcoming Encounters Date Type Department Care Team (Late st Contact Info) Description 08/30/2024 9:00 AM NASCAR RACER Office Visit Department of Community Internal Medicine in [place], [place] 300 [place] [address] Prudence Mena, MPAS, P.A.-C. 300 [place] [address] documented as of this encounter Procedures Procedure Name Priority Date/Time Associated Diagnosis Comments CBC WITH DIFFERENTIAL, B Routine 08/01/2024 7:19 AM NASCAR RACER Empyema Pleural (HCC) Director Of Restaurant Operations Antibiotic Treatment documented in this encounter Results * (ABNORMAL) CBC with Differential, Blood (08/01/2024 7:19 AM NASCAR RACER) Hemoglobin 10.2(L) 11.6 - 15.0 g/dL 08/01/2024 7:38 AM NASCAR RACER CNFL Hematocrit 33.0(L) 35.5 - 44.9 % 08/01/2024 7:38 AM NASCAR RACER CNFL Erythrocytes 3.81(L) 3.92 - 5.13 x10(12)/L 08/01/2024 7:38 AM NASCAR RACER CNFL MCV 86.6 78.2 - 97.9 fL 08/01/2024 7:38 AM NASCAR RACER CNFL RBC Distrib Width 15.2 12.2 - 16.1 % 08/01/2024 7:38 AM NASCAR RACER CNFL Platelet Count 787(H) 157 - 371 x10(9)/L 08/01/2024 7:38 AM NASCAR RACER CNFL Leukocytes 13.8(H) 3.4 - 9.6 x10(9)/L 08/01/2024 7:38 AM NASCAR RACER CNFL Neutrophils 9.76(H) 1.56 - 6.45 x10(9)/L 08/01/2024 7:38 AM NASCAR RACER CNFL Lymphocytes 2.05 0.95 - 3.07 x10(9)/L 08/01/2024 7:38 AM NASCAR RACER CNFL Monocytes 1.47(H) 0.26 - 0.81 x10(9)/L 08/01/2024 7:38 AM NASCAR RACER CNFL Eosinophils 0.38 0.03 - 0.48 x10(9)/L 08/01/2024 7:38 AM NASCAR RACER CNFL Basophils 0.09(H) 0.01 - 0.08 x10(9)/L 08/01/2024 7:38 AM NASCAR RACER CNFL Blood (Blood, Venous) 08/01/2024 7:19 AM NASCAR RACER 08/01/2024 7:34 AM NASCAR RACER us Kayleigh Small M.D. LAB BLOOD ADD-ON Final Result Performing Organization Address [facility]/State/[facility] Co de Phone Number [facility] [address] [place] [address], [facility] in [address] [address] documented in this encounter Visit Diagnoses Diagnosis Empyema Pleural (HCC)- Primary Director Of Restaurant Operations Antibiotic Treatment documented in this encounter Administered Medications Inactive Administered Medications - up to 3 most recent administrations Medication Order MAR Action Action Date Dose Rate Site cefTRIAXone injection 2 g (Rocephin) 2 g, intravenous, Once, On Gloria 08/01/24 at 0730, For 1 dose, Every 24 hours If needed, reconstitute vial per package insert instructions. See IVAG for administration guidelines., Drug Monitoring Program: Pharmacist to adjust medication dosing based on indication and drug clearance factors., Indications: Respiratory tract infection, community acquiredIndications:Respiratory tract infection, community acquired Given 08/01/2024 7:19 AM NASCAR RACER 2 g sodium chloride 0.9 % injection 20-60 mL 20-60 mL, intravenous, As needed, line care, Starting on Gloria 08/01/24 at 0714, Prior to blood sampling, post blood transfusion or post blood sampling. 20 mL to each lumen.Indications:Empyema Pleural (HCC) Given 08/01/2024 7:24 AM NASCAR RACER 10 mL Given 08/01/2024 7:19 AM NASCAR RACER 10 mL documented in this encounter Additional Health Concerns Assessment Noted Time PHQ-9 Depression Total Score: 22 025 7:19 PM NASCAR RACER documented as of this encounter Care Teams Sugar Laboratory Assistant Relationship Specialty Start Date End Date Prudence Mena MPAS, P.A.-C. [address] [place] [phone] PCP - General Internal Medicine 02/08/24 documented as of this encounter
--- OUTSIDE RECORDS SUMMARY | 2024-08-28 18:15 | XMS_ITS | Encounter Summary ---
Author Organization [facility] Address [address] [place] [address] Care Team Providers Care It Solutions Sales Consultant Name Role Phone Prudence Mena P.A.-C. Primary Care Pro vider Reason for Visit * Reason Comments Outpatient Infusion Encounter Details Date Type Department Care Team (Late st Contact Info) Description 07/30/2024 9:00 AM COGNOS Infusion Department of Infusion Therapy in [address] [phone] Melinda Isaac, FRED, C.N.P. [address] [place] [phone] Empyema Pleural (HCC) (Primary Dx) Social History Tobacco Use Types Packs/Day Years Used Date Smoking Tobacco: Former Cigarettes 1.5 0.2 S tarted: 06/21/2024 Passive Smoke Exposure: Past Smokeless Tobacco: Never Alcohol Use Standard Drinks/Week Comments Yes 0 (1 standard drink = 0.6 oz pur e alcohol) socially [facility] Utilities Answer Date Recorded In the [...] often do you attend jehovah's witness or denominational serv ices? Never 07/27/2022 Do you belong [...] Answer Date Recorded PHQ-2 Score 6 07/10/2024 [facility] [place] of Occupat ional Health - Occupational Stress [...] Sign Reading Time Taken Comments Blood Pressure 138/90 07/30/2024 9:22 AM COGNOS Pulse 98 07/30/2024 9:22 AM COGNOS Temperature 35 C (95 F) 07/30/2024 9:22 AM COGNOS Respiratory Rate 16 07/30/2024 9:22 AM COGNOS Oxygen Saturation 100% 07/30/2024 9:22 AM COGNOS Inhaled Oxygen Concentration - - Weight - - Height - - Body Mass Index - - documented in this encounter Plan of Treatment Upcoming Encounters Date Type Department Care Team (Late st Contact Info) Description 08/30/2024 9:00 AM COGNOS Office Visit Department of Community Internal Medicine in [place], [place] 300 [facility] [place] [address] Prudence Mena MPAS, P.A.-C. 300 [place] [address] documented as of this encounter Visit Diagnoses Diagnosis Empyema Pleural (HCC)- Primary documented in this encounter Administered Medications Inactive Administered Medications - up to 3 most recent administrations Medication Order MAR Action Action Date Dose Rate Site cefTRIAXone injection 2 g (Rocephin) 2 g, intravenous, Once, On Mon07/30/24 at 0930, For 1 dose, Every 24 hours If needed, reconstitute vial per package insert instructions. See IVAG for administration guidelines., Drug Monitoring Program: Pharmacist to adjust medication dosing based on indication and drug clearance factors., Indications: Respiratory tract infection, community acquiredIndications:Respiratory tract infection, community acquired Given 07/30/2024 9:24 AM COGNOS 2 g sodium chloride 0.9 % injection 10-30 mL 10-30 mL, intravenous, As needed, line care, Starting on Mon07/30/24 at 0902, Prior to and following infusion, between multiple consecutive infusions.10 mL to each lumen.Indications:Empyema Pleural (HCC) Given 07/30/2024 9:34 AM COGNOS 10 mL Given 07/30/2024 9:20 AM COGNOS 10 mL documented in this encounter Additional Health Concerns Assessment Noted Time PHQ-9 Depression Total Score: 22 025 7:19 PM COGNOS documented as of this encounter Care Teams It Solutions Sales Consultant Relationship Specialty Start Date End Date Prudence Mena MPAS, P.A.-C. 300 [facility] [place] [address] PCP - General Internal Medicine 02/08/24 documented as of this encounter
--- OUTSIDE RECORDS SUMMARY | 2024-08-28 18:15 | XMS_ITS | Encounter Summary ---
Author Organization [facility] Address [address] [place] [address] Care Team Providers Care Obstetrics Gyn Physician Name Role Phone Prudence Mena P.A.-C. Primary Care Pro vider Reason for Visit * Reason Comments Outpatient Infusion ceftriaxone Encounter Details Date Type Department Care Team (Late st Contact Info) Description 08/02/2024 9:00 AM CHIEF SCIENTIFIC OFFICER Infusion Department of Infusion Therapy in [address] [address] Melinda Isaac, FRED, C.N.P. [address] [place] [phone] Empyema Pleural (HCC) (Primary Dx) Social History Tobacco Use Types Packs/Day Years Used Date Smoking Tobacco: Former Cigarettes 1.5 0.2 S tarted: 06/21/2024 Passive Smoke Exposure: Past Smokeless Tobacco: Never Alcohol Use Standard Drinks/Week Comments Yes 0 (1 standard drink = 0.6 oz pur e alcohol) socially [facility] Utilities Answer Date Recorded In the [...] How often do you attend episcopal or pentecostal serv ices? Never 07/27/2022 Do you belong [...] Answer Date Recorded PHQ-2 Score 6 07/10/2024 [facility] [place] of Occupat ional Health - Occupational Stress [...] Sign Reading Time Taken Comments Blood Pressure 122/89 08/02/2024 9:22 AM CHIEF SCIENTIFIC OFFICER Pulse 105 08/02/2024 9:22 AM CHIEF SCIENTIFIC OFFICER Temperature 36.1 C (97 F) 08/02/2024 9:22 AM CHIEF SCIENTIFIC OFFICER Respiratory Rate 18 08/02/2024 9:22 AM CHIEF SCIENTIFIC OFFICER Oxygen Saturation 94% 08/02/2024 9:22 AM CHIEF SCIENTIFIC OFFICER Inhaled Oxygen Concentration - - Weight - - Height - - Body Mass Index - - documented in this encounter Plan of Treatment Upcoming Encounters Date Type Department Care Team (Late st Contact Info) Description 08/30/2024 9:00 AM CHIEF SCIENTIFIC OFFICER Office Visit Department of Community Internal Medicine in [place], [place] 300 [facility] [place] [address] Prudence Mena MPAS, P.A.-C. 300 [facility] [place] [address] documented as of this encounter Visit Diagnoses Diagnosis Empyema Pleural (HCC)- Primary documented in this encounter Administered Medications Inactive Administered Medications - up to 3 most recent administrations Medication Order MAR Action Action Date Dose Rate Site cefTRIAXone injection 2 g (Rocephin) 2 g, intravenous, Once, On Mon08/02/24 at 0930, For 1 dose, Every 24 hours If needed, reconstitute vial per package insert instructions. See IVAG for administration guidelines., Drug Monitoring Program: Pharmacist to adjust medication dosing based on indication and drug clearance factors., Indications: Respiratory tract infection, community acquiredIndications:Respiratory tract infection, community acquired Given 08/02/2024 9:23 AM CHIEF SCIENTIFIC OFFICER 2 g documented in this encounter Additional Health Concerns Assessment Noted Time PHQ-9 Depression Total Score: 22 025 7:19 PM CHIEF SCIENTIFIC OFFICER documented as of this encounter Care Teams Obstetrics Gyn Physician Relationship Specialty Start Date End Date Prudence Mena MPAS, P.A.-C. 300 [facility] [place] [address] PCP - General Internal Medicine 02/08/24 documented as of this encounter
--- OUTSIDE RECORDS SUMMARY | 2024-08-28 18:15 | XMS_ITS | Encounter Summary ---
Author Organization [facility] Address [address] [place] [address] Care Team Providers Care Cattle Farmer Name Role Phone Prudence Mena P.A.-C. Primary Care Pro vider Reason for Visit * Reason Comments Outpatient Infusion rocephin Encounter Details Date Type Department Care Team (Late st Contact Info) Description 08/03/2024 9:00 AM WHEEL MOLDER Infusion Department of Infusion Therapy in [address] [phone] Melinda Isaac, FRED, C.N.P. [address] [place] [phone] Empyema Pleural (HCC) (Primary Dx) Social History Tobacco Use Types Packs/Day Years Used Date Smoking Tobacco: Former Cigarettes 1.5 0.2 S tarted: 06/21/2024 Passive Smoke Exposure: Past Smokeless Tobacco: Never Alcohol Use Standard Drinks/Week Comments Yes 0 (1 standard drink = 0.6 oz pur e alcohol) socially [facility] Utilities Answer Date Recorded In the [...] Never 07/27/2022 How often do you attend quaker or episcopal serv ices? Never 07/27/2022 Do you belong to any clubs o r organizations such as quaker groups, unions, fraternal or athletic groups, or [...] Recorded PHQ-2 Score 6 07/10/2024 [facility] of Occupat ional Health - Occupational Stress [...] Sign Reading Time Taken Comments Blood Pressure 138/82 08/03/2024 9:02 AM WHEEL MOLDER Pulse 110 08/03/2024 9:02 AM WHEEL MOLDER Temperature 35.9 C (96.6 F) 08/03/2024 9:02 AM WHEEL MOLDER Respiratory Rate 18 08/03/2024 9:02 AM WHEEL MOLDER Oxygen Saturation 95% 08/03/2024 9:02 AM WHEEL MOLDER Inhaled Oxygen Concentration - - Weight - - Height - - Body Mass Index - - documented in this encounter Plan of Treatment Upcoming Encounters Date Type Department Care Team (Late st Contact Info) Description 08/30/2024 9:00 AM WHEEL MOLDER Office Visit Department of Community Internal Medicine in [place], [place] 300 [facility] [place] [phone] Prudence Mena MPAS, P.A.-C. 300 [place] [phone] documented as of this encounter Visit Diagnoses Diagnosis Empyema Pleural (HCC)- Primary documented in this encounter Administered Medications Inactive Administered Medications - up to 3 most recent administrations Medication Order MAR Action Action Date Dose Rate Site cefTRIAXone injection 2 g (Rocephin) 2 g, intravenous, Once, On 08/03/24 at 0915, For 1 dose, Every 24 hours If needed, reconstitute vial per package insert instructions. See IVAG for administration guidelines., Drug Monitoring Program: Pharmacist to adjust medication dosing based on indication and drug clearance factors., Indications: Respiratory tract infection, community acquiredIndications:Respiratory tract infection, community acquired Given 08/03/2024 9:04 AM WHEEL MOLDER 2 g sodium chloride 0.9 % injection 10-30 mL 10-30 mL, intravenous, As needed, line care, Starting on 08/03/24 at 0855, Prior to and following infusion, between multiple consecutive infusions.10 mL to each lumen.Indications:Empyema Pleural (HCC) Given 08/03/2024 9:15 AM WHEEL MOLDER 10 mL Given 08/03/2024 9:04 AM WHEEL MOLDER 10 mL documented in this encounter Additional Health Concerns Assessment Noted Time PHQ-9 Depression Total Score: 22 025 7:19 PM WHEEL MOLDER documented as of this encounter Care Teams Cattle Farmer Relationship Specialty Start Date End Date Prudence Mena MPAS, P.A.-C. 300 [facility] [place] [phone] PCP - General Internal Medicine 02/08/24 documented as of this encounter
--- OUTSIDE RECORDS SUMMARY | 2024-08-28 18:15 | XMS_ITS | Encounter Summary ---
Author Organization [facility] Address [address] [place] [address] Care Team Providers Care Copy Center Specialist Name Role Phone Prudence Mena P.A.-C. Primary Care Pro vider Reason for Referral * Outpatient (Routine) - Closed Specialty Diagnoses / Procedures Referred By Contray t Referred To Contact Diagnoses Cargo Inspector Antibiotic Treatment Procedures Remove PICC (non-tunneled) or Midline Catheter Shanel Starr P.A.-CDmitry [address] [place] [phone] Phone: tel: fax: [facility] Referral ID Status Reason Start Date Expiration Date Visits Re quested Visits Authorized [id number] Closed 07/30/2024 10/30/2025 1 1 RPTION OPERATOR Reason for Visit * Reason Comments OPAT Encounter Details Date Type Department Care Team ([facility] st Contact Info) Description 07/29/2024 Patient Outreach Section of Infectious Diseases in [place], [place] [address] [place] [phone] Lashell Greene R.N. [address] [place] [phone] OPAT Social History Tobacco Use Types Packs/Day Years [...] often do you attend roman catholic or buddhism serv ices? Never 07/27/2022 Do you belong [...] Answer Date Recorded PHQ-2 Score 6 07/10/2024 [facility] of Occupat ional Health - Occupational Stress [...] as of this encounter Progress Notes * Abby Jones, PharmWashington, R.Ph. - 08/01/2024 2:10 PM CST OPAT Pharmacist Review for Laboratory Result and OPAT Plan Clarification The patient was not seen in person or examined, and the findings are based on chart review only Additional CBC with diff ordered by my colleague Denny Barajas PharmD given thrombocytosis and leukocytosis on the weekly 07/29 check. This CBC is improved from prior with WBC 13.8 (16.0) and PLT 787 (837). Based on 07/29 visit with ROLANDO ROBERTS, she reports nausea due to pain, improved shortness of breath, and no longer needing to prop herself with pillows at night. I interpret this report as normal post-surgical pain and improvement of her lungs s/p decortication of her empyema. Based on information from the 07/29 visit and chart review, no concern for new or worsening infection for her at this time. She has ID follow-up scheduledon Monday08/05/2024. Continue with the current antimicrobials at this time. For monitoring: No need for additional CBC monitoring at this time and can return to weekly checks as previously planned. If urgent issues, patient should be referred back to ED for further evaluation. RPTION OPERATOR RPTION OPERATOR * Denny Barajas, PharmLottie., R.Ph. - 07/29/2024 3:52 PM CST OPAT Pharmacist Review for Laboratory Result The patient was not seen in person or examined, and the findings are based on chart review only Pertinent labs and antimicrobial regimen as indicated per chart review were assessed. Patient is onceftriaxone and metronidazole for pulmonary infection (left empyema s/p pleural decortication on 07/15/2024). Leukocytosis and thrombocytosis are both moderate. Relevant microbiology results were reviewed and reveal there is not concern for inadequately covered organism(s) with the current regimen (cultures are all unremarkable so treated empirically). These lab changes are almost certainly reactive in nature - CRP and ESR are also elevated. Patient was evaluated in ED on 07/26 and 07/28 without intervention other than renewal of pain medications (both ID and THS teams were consulted). Today, patient reported ongoing LLQ pain to ITC staff this morning, though our OPAT RN was unable to reach the patient to discuss further. In review of chart, patient was at PCP appt at time of outreach. PCP's note not yet signed, though review of vitals show normotensive and afebrile. PE of abdomen reported as follows: Bowel sounds present in all quadrants. Soft, non-tender with no palpable organomegaly. Assessment/Plan The patient has been evaluated by several other providers over the past week (including today). Theassumption is that her pain is expected after her surgical procedure. From an antibiotic perspective: Continue with the current antimicrobials at this time. For monitoring: I am going to order another CBC with diff for later this week (to check again before the weekend). Await further decision making from PCP visit today. If urgent issues, patient should be referred back to ED for further evaluation. RPTION OPERATOR RPTION OPERATOR RPTION OPERATOR RPTION OPERATOR RPTION OPERATOR RPTION OPERATOR documented in this encounter Nursing Notes * Sheri Baltazar, R.N. - 08/01/2024 1:46 PM CST OPAT NOTE - LAB REVIEW Name Phone Number OPAT Infusion/Labs: [facility]: [facility] (M-F) OPAT Infusion/Labs: [facility]: [place] (Sat/Sun) Problem: Outpatient Antimicrobial Therapy Monitoring Description: OPAT/COpAT: -Follow up scheduled 08/05/2024 -IFD Managing Service/Provider: ID ICU Medications: IV Ceftriaxone Start Date: 07/17/2024, End date: 08/05/2024 Tentative PO Metronidazole Start Date: 07/17/2024, End date: 08/05/2024 Tentative Goal: Patient will obtain safety monitoring labs Description: Labs required: CBC w/ diff, Creatinine, ALT, and Alk Phos weekly Baseline Creatinine: 0.69, Date: 07/21/2024 Outcome: Intervention Intervention: Labs reviewed Note: (CBC recheck)Lab results from 08/01/24 are viewable in the MCR record. CBC abnormality Interpretation and Action: [facility] CBC abnormals (platelets and WBC). Results are improving from previous draw on 07/29/24. Will see if Pharmacist has new parametersor wants to make changes to lab schedule based on results from 08/01/24 Reference used: Guideline for Antimicrobial Therapy Monitoring for the Division of Infectious Diseases - [id number] RPTION OPERATOR * Lashell Greene RDmitryNDmitry - 07/29/2024 2:44 PM CST OPAT NOTE - LAB REVIEW Name Phone Number OPAT Infusion/Labs: [facility]: [facility] (M-F) OPAT Infusion/Labs: [facility]: [place] (Sat/Sun) Problem: Outpatient Antimicrobial Therapy Monitoring Description: OPAT/COpAT: -Follow up scheduled 08/05/2024 -IFD Managing Service/Provider: ID ICU Medications: IV Ceftriaxone Start Date: 07/17/2024, End date: 08/05/2024 Tentative PO Metronidazole Start Date: 07/17/2024, End date: 08/05/2024 Tentative Goal: Patient will obtain safety monitoring labs Description: Labs required: CBC w/ diff, Creatinine, ALT, and Alk Phos weekly Baseline Creatinine: 0.69, Date: 07/21/2024 Outcome: Intervention Intervention: Labs reviewed Note: Lab results from 07/29/24 are viewable in the MCR record. CBC abnormality - attempted to contact Melinda to do a symptom assessment however pt did not answer and unable to leave VM due to it being full. See below Interpretation and Action: Will review with OPAT pharmacist regarding elevated platelets, Leukocytes Reference used: Guideline for Antimicrobial Therapy Monitoring for the Division of Infectious Diseases - [id number] Of note: This was sent to the inbasket from Denae Headley RN, Melinda Kumar reported to the [facility] for her scheduled Rocephin and weekly PICC lab draw. She reports increased pain on her LLQ abdomen that is not going away. She stated that she contacted the surgery team andwas advised to contact IFD. This RN forwarded her concerns to the IFD in-basket asking that the patient be contacted by phone [phone] when lab results are reviewed. RPTION OPERATOR * Lashell Greene R.N. - 07/29/2024 2:33 PM CST Error RPTION OPERATOR documented in this encounter Miscellaneous Notes * Addendum Note - Denny Barajas, Pharm.D., R.Ph. - 07/29/2024 4:29 PM ABSORPTION OPERATOR Addended by: DENNY BARAJAS on: 07/29/2024 04:29 PM Modules accepted: Orders RPTION OPERATOR * Addendum Note - Ezio Barrett - 07/29/2024 2:32 PM CSTAddended by: EZIO BARRETT on: 07/30/2024 11:47 AM Modules accepted: Orders RPTION OPERATOR documented in this encounter Plan of Treatment Upcoming Encounters Date Type Department Care Team (Late st Contact Info) Description 08/30/2024 9:00 AM ABSORPTION OPERATOR Office Visit Department of Community Internal Medicine in [place], [place] 300 [facility] [place] [phone] Prudence Mena MPAS, P.A.-C. 300 [facility] [place] [phone] Scheduled Orders Name Type Priority Associated Diagnoses Orde r Schedule Remove PICC (non-tunneled) or Midline Catheter Procedures Routine Skilled Nursing Antibiotic Treatment Expected: 08/05/2024, Expires: 10/28/2025 documented as of this encounter Results * (ABNORMAL) CBC with Differential, Blood (08/01/2024 7:19 AM ABSORPTION OPERATOR) Hemoglobin 10.2(L) 11.6 - 15.0 g/dL 08/01/2024 7:38 AM ABSORPTION OPERATOR CNFL Hematocrit 33.0(L) 35.5 - 44.9 % 08/01/2024 7:38 AM ABSORPTION OPERATOR CNFL Erythrocytes 3.81(L) 3.92 - 5.13 x10(12)/L 08/01/2024 7:38 AM ABSORPTION OPERATOR CNFL MCV 86.6 78.2 - 97.9 fL 08/01/2024 7:38 AM ABSORPTION OPERATOR CNFL RBC Distrib Width 15.2 12.2 - 16.1 % 08/01/2024 7:38 AM ABSORPTION OPERATOR CNFL Platelet Count 787(H) 157 - 371 x10(9)/L 08/01/2024 7:38 AM ABSORPTION OPERATOR CNFL Leukocytes 13.8(H) 3.4 - 9.6 x10(9)/L 08/01/2024 7:38 AM ABSORPTION OPERATOR CNFL Neutrophils 9.76(H) 1.56 - 6.45 x10(9)/L 08/01/2024 7:38 AM ABSORPTION OPERATOR CNFL Lymphocytes 2.05 0.95 - 3.07 x10(9)/L 08/01/2024 7:38 AM ABSORPTION OPERATOR CNFL Monocytes 1.47(H) 0.26 - 0.81 x10(9)/L 08/01/2024 7:38 AM ABSORPTION OPERATOR CNFL Eosinophils 0.38 0.03 - 0.48 x10(9)/L 08/01/2024 7:38 AM ABSORPTION OPERATOR CNFL Basophils 0.09(H) 0.01 - 0.08 x10(9)/L 08/01/2024 7:38 AM ABSORPTION OPERATOR CNFL Blood (Blood, Venous) 08/01/2024 7:19 AM ABSORPTION OPERATOR 08/01/2024 7:34 AM ABSORPTION OPERATOR us Kayleigh Small M.D. LAB BLOOD ADD-ON Final Result [facility] [address] [place] [id number], [facility] CNFL [facility] in [address] [phone] documented in this encounter Visit Diagnoses Diagnosis Empyema Pleural (HCC)- Primary Skilled Nursing Antibiotic Treatment documented in this encounter Additional Health Concerns Assessment Noted Time PHQ-9 Depression Total Score: 22 025 7:19 PM ABSORPTION OPERATOR documented as of this encounter Care Teams Copy Center Specialist Relationship Specialty Start Date End Date Prudence Mena MPAS, P.A.-C. [address] [place] [phone] PCP - General Internal Medicine 02/08/24 documented as of this encounter
--- OUTSIDE RECORDS SUMMARY | 2024-08-28 18:16 | XMS_ITS | Encounter Summary ---
Author Organization [facility] Address [address] [place] [address] Care Team Providers Care Stevedore Hold Name Role Phone Prudence Mena P.A.-CDmitry Primary Care Pro vider Encounter Details Date Type Department Care Team (Late st Contact Info) Description 07/24/2024 Results Follow-Up Department of Community Internal Medicine in [place], [place] 300 [place] [phone] Prudence Mena MPAS, P.A.-C. 300 [place] [phone] CT Chest with IV Contrast Social History Tobacco Use Types Packs/Day Years Used Date Smoking Tobacco: Former Cigarettes 1.5 0.2 S tarted: 06/21/2024 Passive Smoke Exposure: Past Smokeless Tobacco: Never Alcohol Use Standard Drinks/Week Comments Yes 0 (1 standard drink = 0.6 oz pur e alcohol) socially [facility] Utilities Answer Date Recorded In the past 12 months has [employer], gas, oil, or water [employer] threatened to shut off services in your [...] Never 07/27/2022 How often do you attend yazidi or restorationist serv ices? Never 07/27/2022 Do you belong to any clubs o r organizations such as yazidi groups, unions, fraternal or athletic groups, or [...] Answer Date Recorded PHQ-2 Score 6 07/10/2024 [facility] of Occupat ional Health - Occupational [...] st Contact Info) Description 08/30/2024 9:00 AM MECHANICAL ENGINEERING MANAGER Office Visit Department of Community Internal Medicine in [place], [place] 300 [facility] [place] [phone] Prudence Mena MPAS, P.A.-C. 300 [place] [phone] documented as of this encounter Visit Diagnoses Not on filedocumented in this encounter Additional Health Concerns Assessment Noted Time PHQ-9 Depression Total Score: 22 025 7:19 PM MECHANICAL ENGINEERING MANAGER documented as of this encounter Care Teams Stevedore Hold Relationship Specialty Start Date End Date Prudence Mena MPAS, P.A.-C. [address] [place] [address] [place] [phone] PCP - General Internal Medicine 02/08/24 documented as of this encounter
--- OUTSIDE RECORDS SUMMARY | 2024-08-28 18:16 | XMS_ITS | Encounter Summary ---
Author Organization [facility] Address [address] [place] [address] Care Team Providers Care Build And Deployment Engineer Name Role Phone Prudence Mena P.A.-Demarcus Primary Care Pro vider Encounter Details Date Type Department Care Team (Late st Contact Info) Description 07/11/2024 Clinical Communication Department of Community Internal Medicine in [place], [place] 300 [place] [phone] Prudence Mena MPAS P.A.-C. 300 [place] [phone] Social History Tobacco Use Types Packs/Day Years Used Date Smoking Tobacco: Former Cigarettes 1.5 0.2 S tarted: 06/21/2024 Passive Smoke Exposure: Past Smokeless Tobacco: Never Alcohol Use Standard Drinks/Week Comments Yes 0 (1 standard drink = 0.6 oz pur e alcohol) [facility] Utilities Answer Date Recorded In the past 12 months has e [employer] gas, oil, or water [employer] threatened to shut off services in your [...] How often do you attend shinto or confucianist serv ices? Never 07/27/2022 Do you belong [...] partner or ex-partner? No 07/15/2024 8:00 PM MANAGER ELIGIBILITY Helena Brady, R.N. Within the last year, have y ou been afraid of your partner or ex-partner? No 07/15/2024 8:00 PM Helena Resendiz, R.N. Within the last year, have y ou been raped or forced to have any kind of sexual activity by your partner or ex-partner? No 07/15/2024 8:00 PM MANAGER ELIGIBILITY Helena Brady R.N. Within the last year, have y ou been kicked, hit, slapped, or otherwise physically hurt by your partner or ex-partner? No 07/15/2024 8:00 PM MANAGER ELIGIBILITY Helena Brady R.N. documented as of this encounter Miscellaneous Notes * Telephone Encounter - Es Evans L.P.N. - 07/11/2024 3:33 PM MANAGER ELIGIBILITY Called and notified patient of: Please call [...] CT scan and follow up with Prudence. GER ELIGIBILITY documented in this encounter Plan of Treatment Upcoming Encounters Date Type Department Care Team (Late st Contact Info) Description 08/30/2024 9:00 AM MANAGER ELIGIBILITY Office Visit Department of Community Internal Medicine in [place], [place] 300 [place] [phone] Prudence Mena MPAS, P.A.-C. 300 [place] [phone] documented as of this encounter Visit Diagnoses Not on filedocumented in this encounter Additional Health Concerns Assessment Noted Time PHQ-9 Depression Total Score: 22 025 7:19 PM MANAGER ELIGIBILITY documented as of this encounter Care Teams Build And Deployment Engineer Relationship Specialty Start Date End Date Prudence Mena MPAS, P.A.-C. 300 [facility] [place] [phone] PCP - General Internal Medicine 02/08/24 documented as of this encounter
--- OUTSIDE RECORDS SUMMARY | 2024-08-28 18:16 | XMS_ITS | Encounter Summary ---
Author Organization [facility] Address [address] [place] [address] Care Team Providers Care Supervisor Intermediates Name Role Phone Prudence Mena P.A.-C. Primary Care Pro vider Encounter Details Date Type Department Care Team (Late st Contact Info) Description 07/26/2024 9:00 AM PIT CLERK Infusion Department of Infusion Therapy in [address] [phone] Melinda Isaac, FRED, C.N.P. [address] [place] [phone] Empyema Pleural (HCC) (Primary Dx) Social History Tobacco Use Types Packs/Day Years Used Date Smoking Tobacco: Former Cigarettes 1.5 0.2 S tarted: 06/21/2024 Passive Smoke Exposure: Past Smokeless Tobacco: Never Alcohol Use Standard Drinks/Week Comments Yes 0 (1 standard drink = 0.6 oz pur e alcohol) socially [facility] Utilities Answer Date Recorded In the past 12 months has e electric, gas, oil, or water [employer] threatened to shut off services in your [...] Never 07/27/2022 How often do you attend anabaptist or uatsdin serv ices? Never 07/27/2022 Do you belong to any clubs o r organizations such as anabaptist groups, unions, fraternal or athletic groups, or [...] PHQ-2 Score 6 07/10/2024 [facility] - Occupational Stress [...] Comments Blood Pressure 130/76 07/26/2024 9:00 AM PIT CLERK Pulse 106 07/26/2024 9:00 AM PIT CLERK Temperature 35.9 C (96.6 F) 07/26/2024 9:00 AM PIT CLERK Respiratory Rate 18 07/26/2024 9:00 AM PIT CLERK Oxygen Saturation 96% 07/26/2024 9:00 AM PIT CLERK Inhaled Oxygen Concentration - - Weight - [...] they are in agreement with this plan. CLERK documented in this encounter Plan of Treatment Upcoming Encounters Date Type Department Care Team (Late st Contact Info) Description 08/30/2024 9:00 AM PIT CLERK Office Visit Department of Community Internal Medicine in [place], [place] 300 [place] [address] Prudence Mena MPAS, P.A.-C. 300 [place] [phone] documented as of this encounter Visit Diagnoses [...] infection, community acquired Given 07/26/2024 8:56 AM PIT CLERK 2 g sodium chloride 0.9 % injection 10-30 mL 10-30 mL, intravenous, As needed, line care, Starting on Mon07/26/24 at 0844, Prior to and following infusion, between multiple consecutive infusions.10 mL to each lumen.Indications:Empyema Pleural (HCC) Given 07/26/2024 9:00 AM PIT CLERK 10 mL Given 07/26/2024 8:56 AM PIT CLERK 10 mL documented in this encounter Additional Health Concerns Assessment Noted Time PHQ-9 Depression Total Score: 22 025 7:19 PM PIT CLERK documented as of this encounter Care Teams Supervisor Intermediates Relationship Specialty Start Date End Date Prudence Mena MPAS, P.A.-C. 300 [facility] [place] [phone] PCP - General Internal Medicine 02/08/24 documented as of this encounter
--- OUTSIDE RECORDS SUMMARY | 2024-08-28 18:16 | XMS_ITS | Encounter Summary ---
Author Organization [facility] Address [address] [place] [address] Care Team Providers Care First Aid Nurse Name Role Phone Prudence Mena P.A.-C. Primary Care Pro vider Encounter Details Date Type Department Care Team (Late st Contact Info) Description 07/25/2024 Orders Only Division of Thoracic Surgery in [place], [place] [address] [place] [phone] Eveline Mariscal, PDmitryADmitry-CDmitry [address] [place] [phone] Social History Tobacco Use Types Packs/Day Years Used Date Smoking Tobacco: Former Cigarettes 1.5 0.2 S tarted: 06/21/2024 Passive Smoke Exposure: Past Smokeless Tobacco: Never Alcohol Use Standard Drinks/Week Comments Yes 0 (1 standard drink = 0.6 oz pur e alcohol) socially [facility] Utilities Answer Date Recorded In the past 12 months has [employer], gas, oil, or water [employer] threatened to shut off services in your [...] How often do you attend druze or latter day serv ices? Never 07/27/2022 Do you belong [...] Date Recorded PHQ-2 Score 6 07/10/2024 [facility] of Occupat ional Health - Occupational [...] st Contact Info) Description 08/30/2024 9:00 AM PUBLIC AFFAIRS OFFICER Office Visit Department of Community Internal Medicine in [place], [place] 300 [facility] [place] [phone] Prudence Mena MPAS, P.A.-C. 300 [facility] [place] [phone] documented as of this encounter Visit Diagnoses Not on filedocumented in this encounter Additional Health Concerns Assessment Noted Time PHQ-9 Depression Total Score: 22 025 7:19 PM PUBLIC AFFAIRS OFFICER documented as of this encounter Care Teams First Aid Nurse Relationship Specialty Start Date End Date Prudence Mena MPAS, P.A.-C. [address] [place] [phone] PCP - General Internal Medicine 02/08/24 documented as of this encounter
--- OUTSIDE RECORDS SUMMARY | 2024-08-28 18:16 | XMS_ITS | Encounter Summary ---
Author Organization [facility] Address [address] [place] [address] Care Team Providers Care Graphics Programmer Name Role Phone Prudence Mena P.A.-C. Primary Care Pro vider Reason for Visit * Reason Comments Outpatient Infusion Dressing Change Encounter Details Date Type Department Care Team (Late st Contact Info) Description 07/25/2024 9:00 AM DIRECTOR OF PROCUREMENT Infusion Department of Infusion Therapy in [address] [phone] Melinda Isaac, FRED, C.N.P. [address] [place] [phone] Empyema Pleural (HCC) (Primary Dx) Social History Tobacco Use Types Packs/Day Years Used Date Smoking Tobacco: Former Cigarettes 1.5 0.2 S tarted: 06/21/2024 Passive Smoke Exposure: Past Smokeless Tobacco: Never Alcohol Use Standard Drinks/Week Comments Yes 0 (1 standard drink = 0.6 oz pur e alcohol) socially [facility] Utilities Answer Date Recorded In [...] Never 07/27/2022 How often do you attend taoism or scientology serv ices? Never 07/27/2022 Do you belong to any clubs o r organizations such as taoism groups, unions, fraternal or athletic groups, or [...] Date Recorded PHQ-2 Score 6 07/10/2024 [facility] [place] of Occupat ional Health - Occupational Stress [...] Comments Blood Pressure 139/95 07/25/2024 9:05 AM DIRECTOR OF PROCUREMENT Pulse 103 07/25/2024 9:05 AM DIRECTOR OF PROCUREMENT Temperature 36.6 C (97.9 F) 07/25/2024 9:05 AM DIRECTOR OF PROCUREMENT Respiratory Rate 18 07/25/2024 9:05 AM DIRECTOR OF PROCUREMENT Oxygen Saturation 100% 07/25/2024 9:05 AM DIRECTOR OF PROCUREMENT Inhaled Oxygen Concentration - - Weight - - Height - - Body Mass Index - - documented in this encounter Plan of Treatment Upcoming Encounters Date Type Department Care Team (Late st Contact Info) Description 08/30/2024 9:00 AM DIRECTOR OF PROCUREMENT Office Visit Department of Community Internal Medicine in [place], [place] 300 [facility] [phone] Prudence Mena MPAS, P.A.-C. 300 [place] [phone] documented as of this encounter Visit Diagnoses [...] infection, community acquired Given 07/25/2024 9:08 AM DIRECTOR OF PROCUREMENT 2 g sodium chloride 0.9 % injection 10-30 mL 10-30 mL, intravenous, As needed, line care, Starting on Gloria 07/25/24 at 0857, Prior to and following infusion, between multiple consecutive infusions.10 mL to each lumen.Indications:Empyema Pleural (HCC) Given 07/25/2024 9:13 AM DIRECTOR OF PROCUREMENT 10 mL Given 07/25/2024 9:08 AM DIRECTOR OF PROCUREMENT 10 mL documented in this encounter Additional Health Concerns Assessment Noted Time PHQ-9 Depression Total Score: 22 025 7:19 PM DIRECTOR OF PROCUREMENT documented as of this encounter Care Teams Graphics Programmer Relationship Specialty Start Date End Date Prudence Mena MPAS, P.A.-C. 300 [facility] [place] [facility] [place] [address] PCP - General Internal Medicine 02/08/24 documented as of this encounter
--- OUTSIDE RECORDS SUMMARY | 2024-08-28 18:16 | XMS_ITS | CCD ---
Author Name Interface, [id number]ity Address [address] [facility] [address] [address] [facility] Address [address] [facility] [address] [address] Care Team Providers Care Technical Asst Name Role Phone Karen Daley Unavailable Allergies and Adverse Reactions Medication/Group Name Reaction Severity Date No known allergies Reason for Visit RC - 605 6 MONTH RC - 605 6 MONTH RC Medications Date Name Route Dose Frequency Instructions Start Date End Date Status 018 Mirtazapine Oral PO 1.0 TABLET (S) QHS 018 active 018 Acetaminophen Oral PO 2.0 TABLET (S) as directed 018 active 018 Ibuprofen Oral PO 1.0 TABLET (S) Q8H PRN pain 018 active 018 Belladonna Alkaloids-Opium Suppository 16.2 mg-30 mg P.R. 1.0 SUPP(S ) Q8H PRN 018 active 018 Fluticasone Inhaler 100 mcg/actuation By inhalation 1.0 INHALA TION(S ) BID 018 active 018 Albuterol HFA Inhaler 90 mcg/actuation By inhalation 2.0 INHALA TION(S ) prn 018 active 018 Lamotrigine Oral PO 1.0 TABLET (S) daily 018 active 018 Oxycodone Oral PO 5.0 MG Q3-4H PRN 018 active 018 Fluoxetine Oral PO 1.0 CAPSUL E(S) daily 018 active 018 Bupropion (XL) Oral 24 hr Tab PO 1.0 TABLET (S) daily 018 active 018 Lorazepam Oral PO 1.0 TABLET (S) Q4H PRN nausea 018 active Problems Diagnosis Status Date of Diagnosi s Body mass index (BMI) 32.0-32.9, adult Inactive Kidney stone (disorder) Active Anismus (disorder) Active Chronic urinary bladder pain (finding) Active Neurogenic bladder (finding) Active Long-term current use of opiate analgesic Active Cyst of ovary (disorder) Active Candidal vulvovaginitis (disorder) Inactive Social History Date Name Value Sex Female
--- OUTSIDE RECORDS SUMMARY | 2024-08-28 18:17 | XMS_ITS | Encounter Summary ---
Author Organization [facility] Address [address] [place] [address] Care Team Providers Care Band Tacker Name Role Phone Prudence Mena P.A.-C. Primary Care Pro vider Reason for Visit * Reason Onset Date Comments Reschedule 07/23/2024 Encounter Details Date Type Department Care Team (Late st Contact Info) Description 07/23/2024 Clinical Communication Department of Infusion Therapy in [place], [place] [address] [place] [phone] Tita Bell R.N. 701 [place] [phone] Reschedule Social History Tobacco Use Types Packs/Day Years Used Date Smoking Tobacco: Former Cigarettes 1.5 0.2 S tarted: 06/21/2024 Passive Smoke Exposure: Past Smokeless Tobacco: Never Alcohol Use Standard Drinks/Week Comments Yes 0 (1 standard drink = 0.6 oz pur e alcohol) socially [facility] Utilities Answer Date Recorded In the past 12 months has [facility] [employer], gas, oil, or water [employer] threatened to shut off services in your [...] Never 07/27/2022 How often do you attend religion or scientologist serv ices? Never 07/27/2022 Do you belong to any clubs o r organizations such as religion groups, unions, fraternal or athletic groups, or [...] Date Recorded PHQ-2 Score 6 07/10/2024 [facility] [place] of Occupat ional Health - Occupational Stress [...] st Contact Info) Description 08/30/2024 9:00 AM PROPULSION MACHINERY SERVICE ENGINEER Office Visit Department of Community Internal Medicine in [place], [place] 300 [facility] [place] [address] Prudence Mena MPAS, P.A.-C. 300 [place] [phone] documented as of this encounter Visit Diagnoses Not on filedocumented in this encounter Additional Health Concerns Assessment Noted Time PHQ-9 Depression Total Score: 22 025 7:19 PM PROPULSION MACHINERY SERVICE ENGINEER documented as of this encounter Care Teams Band Tacker Relationship Specialty Start Date End Date Prudence Mena MPAS, P.A.-C. [address] [place] [address] [place] [phone] PCP - General Internal Medicine 02/08/24 documented as of this encounter
--- OUTSIDE RECORDS SUMMARY | 2024-08-28 18:17 | XMS_ITS | Encounter Summary ---
Author Organization [facility] Address [address] [place] [address] Care Team Providers Care Paving And Surfacing Labourer Name Role Phone Prudence Mena P.A.-C. Primary Care Pro vider Reason for Visit * Reason Comments Outpatient Infusion Rocephin * Outpatient (Routine) - Closed Specialty Diagnoses / Procedures Referred By Contac t Referred To Contact Diagnoses Empyema Pleural (HCC) Procedures Perform central airline attendant: Site care, Flush port(s) Melnida Isaac APRN, C.N.P. [address] [place] [phone] Phone: tel: fax: [facility] Referral ID Status Reason Start Date Expiration Date Visits Re quested Visits Authorized [id number] Closed 07/19/2024 07/19/2025 1 1 Encounter Details Date Type Department Care Team (Late st Contact Info) Description 07/22/2024 9:00 AM UNIFIED COMMUNICATIONS ARCHITECT Infusion Department of Infusion Therapy in [address] [phone] Melinda Isaac APRN, C.N.P. [address] [place] [phone] Empyema Pleural (HCC) (Primary Dx) Social [...] Never 07/27/2022 How often do you attend samaritan or scientologist serv ices? Never 07/27/2022 Do you belong to any clubs o r organizations such as samaritan groups, unions, fraternal or athletic groups, or [...] Answer Date Recorded PHQ-2 Score 6 07/10/2024 [facility] - Occupational Stress Questionnaire Answer [...] Comments Blood Pressure 125/82 07/22/2024 9:12 AM UNIFIED COMMUNICATIONS ARCHITECT Pulse 102 07/22/2024 9:12 AM UNIFIED COMMUNICATIONS ARCHITECT Temperature 36.2 C (97.2 F) 07/22/2024 9:12 AM UNIFIED COMMUNICATIONS ARCHITECT Respiratory Rate 20 07/22/2024 9:12 AM UNIFIED COMMUNICATIONS ARCHITECT Oxygen Saturation 96% 07/22/2024 9:12 AM UNIFIED COMMUNICATIONS ARCHITECT Inhaled Oxygen Concentration - - Weight [...] mother stated feeling good about this plan. IED COMMUNICATIONS ARCHITECT documented in this encounter Plan of Treatment Upcoming Encounters Date Type Department Care Team (Late st Contact Info) Description 08/30/2024 9:00 AM UNIFIED COMMUNICATIONS ARCHITECT Office Visit Department of Community Internal Medicine in [place], [place] 300 [place] [phone] Prudence Mena MPAS, P.A.-C. 300 [place] [address] documented as of this encounter Visit Diagnoses [...] infection, community acquired Given 07/22/2024 9:20 AM UNIFIED COMMUNICATIONS ARCHITECT 2 g sodium chloride 0.9 % injection 10-30 mL 10-30 mL, intravenous, As needed, line care, Starting on Mon07/22/24 at 0905, Prior to and following infusion, between multiple consecutive infusions.10 mL to each lumen.Indications:Empyema Pleural (HCC) Given 07/22/2024 9:24 AM UNIFIED COMMUNICATIONS ARCHITECT 10 mL Given 07/22/2024 9:19 AM UNIFIED COMMUNICATIONS ARCHITECT 10 mL documented in this encounter Additional Health Concerns Assessment Noted Time PHQ-9 Depression Total Score: 22 025 7:19 PM UNIFIED COMMUNICATIONS ARCHITECT documented as of this encounter Care Teams Paving And Surfacing Labourer Relationship Specialty Start Date End Date Prudence Mena MPAS, P.A.-C. 300 [place] [phone] PCP - General Internal Medicine 02/08/24 documented as of this encounter
--- OUTSIDE RECORDS SUMMARY | 2024-08-28 18:17 | XMS_ITS | Encounter Summary ---
Author Organization [facility] Address [address] [place] [address] Care Team Providers Care Paralegals Name Role Phone Trina Prudence Ori TO Primary Care Pro vider Reason for Referral * Outpatient (Routine) - Closed Specialty Diagnoses / Procedures Referred By Contac t Referred To Contact Diagnoses Fishing Vessel Deckhand Antibiotic Treatment Procedures Perform central toll lineman: Site care Melinda Cohen MPAS, P.A.-C., M.S. [address] [place] [phone] Phone: tel: fax: [facility] Region Referral ID Status Reason Start Date Expiration Date Visits Re quested Visits Authorized [id number] Closed 07/22/2024 10/22/2025 1 1 T PHYSIOLOGY TEACHER Reason for Visit * Reason Comments Care Coordination Encounter Details Date Type Department Care Team (Late st Contact Info) Description 07/22/2024 Patient Outreach Section of Infectious Diseases in [place], [place] [address] [place] [phone] Sneha Barrett Care Coordination Social History Tobacco Use Types Packs/Day Years Used Date Smoking Tobacco: Former Cigarettes 1.5 0.2 S tarted: 06/21/2024 Passive Smoke Exposure: Past Smokeless Tobacco: Never Alcohol Use Standard Drinks/Week Comments Yes 0 (1 standard drink = 0.6 oz pur e alcohol) socially [facility] Utilities Answer Date Recorded In the past 12 months has th e [employer], [employer], oil, or water [employer] threatened to shut off services in your [...] How often do you attend pentecostal or taoist serv ices? Never 07/27/2022 Do you belong [...] 6 07/10/2024 [facility] of Occupat ional [facility] - Occupational Stress Questionnaire Answer Date [...] contact information for non-urgent antimicrobial related questions. T PHYSIOLOGY TEACHER documented in this encounter Nursing Notes * Johanny Contreras R.N. - 07/24/2024 12:49 PM CST OPAT NOTE - LAB REVIEW Name Phone Number OPAT Infusion/Labs: [facility]: [facility] (M-F) OPAT Infusion/Labs: [facility]: [place] (Sat/Sun) Problem: Outpatient Antimicrobial Therapy Monitoring Description: [...] for the Division of Infectious Diseases - [id number] T PHYSIOLOGY TEACHER documented in this encounter Plan of Treatment Upcoming Encounters Date Type Department Care Team (Late st Contact Info) Description 08/30/2024 9:00 AM PLANT PHYSIOLOGY TEACHER Office Visit Department of Community Internal Medicine in [place], [place] 300 [place] [phone] Prudence Mena MPAS, P.A.-C. 300 [place] [phone] Scheduled Orders Name Type Priority Associated Diagnoses Orde r Schedule Perform central toll lineman: Site care Procedures Routine Halfway Antibiotic Treatment Expected: 07/29/2024, Expires: 10/20/2025 documented as of this encounter Results * (ABNORMAL) Alkaline Phosphatase (08/04/2024 9:11 AM PLANT PHYSIOLOGY TEACHER) Alkaline Phosphatase, P 106(H) 35 - 104 U/L 08/04/2024 9:42 AM PLANT PHYSIOLOGY TEACHER RDWG Blood (Blood, PICC) 08/04/2024 9:11 AM PLANT PHYSIOLOGY TEACHER 08/04/2024 9:21 AM PLANT PHYSIOLOGY TEACHER us Melinda TO, P.A.-C., M.S. LAB BLOOD ADD-ON Final Result - [facility] [address] [address], [facility] in [place] [address] [place] [address] * ALT (Alanine Aminotransferase) (08/04/2024 9:11 AM PLANT PHYSIOLOGY TEACHER) Alanine Aminotransferase (ALT), P 10 7 - 45 U/L 08/04/2024 9:42 AM PLANT PHYSIOLOGY TEACHER RDWG Blood (Blood, PICC) 08/04/2024 9:11 AM PLANT PHYSIOLOGY TEACHER 08/04/2024 9:21 AM PLANT PHYSIOLOGY TEACHER us Melinda TO, P.A.-C., M.S. LAB BLOOD ADD-ON Final Result - [facility] [address] [place] [address], [facility] in [place] [address] [place] [address], [place] [phone] * (ABNORMAL) Creatinine with Estimated GFR (08/04/2024 9:11 AM PLANT PHYSIOLOGY TEACHER) Creatinine 0.44(L) 0.59 - 1.04 mg/dL 08/04/2024 9:42 AM PLANT PHYSIOLOGY TEACHER RDWG Estimated GFR (eGFR) >90 >=60 mL/min/BSA 08/04/2024 9:42 AM PLANT PHYSIOLOGY TEACHER RDWG Comment: Estimated GFR calculated using the 2020 CKD_EPI creatinine equation. Blood (Blood, PICC) 08/04/2024 9:11 AM PLANT PHYSIOLOGY TEACHER 08/04/2024 9:21 AM PLANT PHYSIOLOGY TEACHER us Melinda TO, P.A.-C., M.S. LAB BLOOD ADD-ON Final Result - [facility] [address] [place] [address], [place] RDW[facility] in [place] 701 [place] [address] * (ABNORMAL) CBC with Differential, Blood (08/04/2024 9:11 AM PLANT PHYSIOLOGY TEACHER) Hemoglobin 10.8(L) 11.6 - 15.0 g/dL 08/04/2024 9:24 AM PLANT PHYSIOLOGY TEACHER RDWG Hematocrit 35.3(L) 35.5 - 44.9 % 08/04/2024 9:24 AM PLANT PHYSIOLOGY TEACHER RDWG Erythrocytes 4.14 3.92 - 5.13 x10(12)/L 08/04/2024 9:24 AM PLANT PHYSIOLOGY TEACHER RDWG MCV 85.3 78.2 - 97.9 fL 08/04/2024 9:24 AM PLANT PHYSIOLOGY TEACHER RDWG RBC Distrib Width 15.4 12.2 - 16.1 % 08/04/2024 9:24 AM PLANT PHYSIOLOGY TEACHER RDWG Platelet Count 795(H) 157 - 371 x10(9)/L 08/04/2024 9:24 AM PLANT PHYSIOLOGY TEACHER RDWG Leukocytes 16.2(H) 3.4 - 9.6 x10(9)/L 08/04/2024 9:24 AM PLANT PHYSIOLOGY TEACHER RDWG Neutrophils 13.51(H) 1.56 - 6.45 x10(9)/L 08/04/2024 9:24 AM PLANT PHYSIOLOGY TEACHER RDWG Lymphocytes 1.65 0.95 - 3.07 x10(9)/L 08/04/2024 9:24 AM PLANT PHYSIOLOGY TEACHER RDWG Monocytes 0.65 0.26 - 0.81 x10(9)/L 08/04/2024 9:24 AM PLANT PHYSIOLOGY TEACHER RDWG Eosinophils 0.28 0.03 - 0.48 x10(9)/L 08/04/2024 9:24 AM PLANT PHYSIOLOGY TEACHER RDWG Basophils 0.08 0.01 - 0.08 x10(9)/L 08/04/2024 9:24 AM PLANT PHYSIOLOGY TEACHER RDWG Blood (Blood, PICC) 08/04/2024 9:11 AM PLANT PHYSIOLOGY TEACHER 08/04/2024 9:21 AM PLANT PHYSIOLOGY TEACHER us Melinda TO, P.A.-C., M.S. LAB BLOOD ADD-ON Final Result - [facility] [address] [place] [address], [facility] [place] [address] [place] [address] * Alkaline Phosphatase (07/24/2024 10:02 AM PLANT PHYSIOLOGY TEACHER) Alkaline Phosphatase, P 86 35 - 104 U/L 07/24/2024 10:24 AM PLANT PHYSIOLOGY TEACHER CNFL Blood (Blood, PICC) 07/24/2024 10:02 AM PLANT PHYSIOLOGY TEACHER 07/24/2024 10:07 AM PLANT PHYSIOLOGY TEACHER us Melinda TO, P.A.-C., M.S. LAB BLOOD ADD-ON Final Result [address] [address], [address] [address] * ALT (Alanine Aminotransferase) (07/24/2024 10:02 AM PLANT PHYSIOLOGY TEACHER) Alanine Aminotransferase (ALT), P 21 7 - 45 U/L 07/24/2024 10:24 AM PLANT PHYSIOLOGY TEACHER CNFL Blood (Blood, PICC) 07/24/2024 10:02 AM PLANT PHYSIOLOGY TEACHER 07/24/2024 10:07 AM PLANT PHYSIOLOGY TEACHER us Melinda TO, P.A.-C., M.S. LAB BLOOD ADD-ON Final Result [address] [address], [address] [address] * Creatinine with Estimated GFR (07/24/2024 10:02 AM PLANT PHYSIOLOGY TEACHER) Creatinine 0.60 0.59 - 1.04 mg/dL 07/24/2024 10:24 AM PLANT PHYSIOLOGY TEACHER CNFL Estimated GFR (eGFR) >90 >=60 mL/min/BSA 07/24/2024 10:24 AM PLANT PHYSIOLOGY TEACHER CNFL Comment: Estimated GFR calculated using the 2020 CKD_EPI creatinine equation. Blood (Blood, PICC) 07/24/2024 10:02 AM PLANT PHYSIOLOGY TEACHER 07/24/2024 10:07 AM PLANT PHYSIOLOGY TEACHER us Melinda TO, P.A.-C., M.S. LAB BLOOD ADD-ON Final Result - [facility] [address] [place] [address], [facility] CN[facility] [place] [address] * (ABNORMAL) CBC with Differential, Blood (07/24/2024 10:02 AM PLANT PHYSIOLOGY TEACHER) Hemoglobin 9.4(L) 11.6 - 15.0 g/dL 07/24/2024 10:11 AM PLANT PHYSIOLOGY TEACHER CNFL Hematocrit 30.2(L) 35.5 - 44.9 % 07/24/2024 10:11 AM PLANT PHYSIOLOGY TEACHER CNFL Erythrocytes 3.40(L) 3.92 - 5.13 x10(12)/L 07/24/2024 10:11 AM PLANT PHYSIOLOGY TEACHER CNFL MCV 88.8 78.2 - 97.9 fL 07/24/2024 10:11 AM PLANT PHYSIOLOGY TEACHER CNFL RBC Distrib Width 15.5 12.2 - 16.1 % 07/24/2024 10:11 AM PLANT PHYSIOLOGY TEACHER CNFL Platelet Count 641(H) 157 - 371 x10(9)/L 07/24/2024 10:11 AM PLANT PHYSIOLOGY TEACHER CNFL Leukocytes 12.0(H) 3.4 - 9.6 x10(9)/L 07/24/2024 10:11 AM PLANT PHYSIOLOGY TEACHER CNFL Neutrophils 8.69(H) 1.56 - 6.45 x10(9)/L 07/24/2024 10:11 AM PLANT PHYSIOLOGY TEACHER CNFL Lymphocytes 1.73 0.95 - 3.07 x10(9)/L 07/24/2024 10:11 AM PLANT PHYSIOLOGY TEACHER CNFL Monocytes 0.99(H) 0.26 - 0.81 x10(9)/L 07/24/2024 10:11 AM PLANT PHYSIOLOGY TEACHER CNFL Eosinophils 0.55(H) 0.03 - 0.48 x10(9)/L 07/24/2024 10:11 AM PLANT PHYSIOLOGY TEACHER CNFL Basophils 0.06 0.01 - 0.08 x10(9)/L 07/24/2024 10:11 AM PLANT PHYSIOLOGY TEACHER CNFL Blood (Blood, PICC) 07/24/2024 10:02 AM PLANT PHYSIOLOGY TEACHER 07/24/2024 10:07 AM PLANT PHYSIOLOGY TEACHER us Melinda TO, P.A.-C., M.S. LAB BLOOD ADD-ON Final Result - [facility] [address] [place] [address], [facility] CN[facility] in [address] [address] documented in this encounter Visit Diagnoses Diagnosis Fishing Vessel Deckhand Antibiotic Treatment- Primary documented in this encounter Additional Health Concerns Assessment Noted Time PHQ-9 Depression Total Score: 22 025 7:19 PM PLANT PHYSIOLOGY TEACHER documented as of this encounter Care Teams Paralegals Relationship Specialty Start Date End Date Prudence Mena MPAS, P.A.-C. [address] [place] [address] [place] [address] PCP - General Internal Medicine 02/08/24 documented as of this encounter
--- OUTSIDE RECORDS SUMMARY | 2024-08-28 18:17 | XMS_ITS | Clinical Summary ---
Author Organization [facility] Address [address] [place] [address] Care Team Providers Care Golf Club Assembler Name Role Phone Claudia Morillo MD Primary Care Provider [phone] Social History Tobacco Use Types Packs/Day Years Used Date Smoking Tobacco: Never Assessed Comments Unknown Sex and Gender Information Value Date Recorded Sex Assigned at Not on file Legal Sex Female 3:28 PM CDT Gender Identity Not on file Sexual Orientation Not on file Plan of Treatment Not on file Care Teams Golf Club Assembler Relationship Specialty Start Date End Date Claudia Morillo MD [facility] [address] [place] [address] PCP - General 02/06/18
--- OUTSIDE RECORDS SUMMARY | 2024-08-28 18:17 | XMS_ITS | Encounter Summary ---
Author Organization [facility] Address [address] [place] [address] Care Team Providers Care Technical Customer Support Specialist Name Role Phone Prudence Mena P.A.-C. Primary Care Pro vider Reason for Visit * Reason Comments Outpatient Infusion Rocephin Encounter Details Date Type Department Care Team (Late st Contact Info) Description 07/24/2024 9:00 AM HUMAN RESOURCE ADVISOR Infusion Department of Infusion Therapy in [address] [phone] Melinda Isaac, FRED, C.N.P. [address] [place] [phone] Empyema Pleural (HCC) (Primary Dx) Social History Tobacco Use Types Packs/Day Years Used Date Smoking Tobacco: Former Cigarettes 1.5 0.2 S tarted: 06/21/2024 Passive Smoke Exposure: Past Smokeless Tobacco: Never Alcohol Use Standard Drinks/Week Comments Yes 0 (1 standard drink = 0.6 oz pur e alcohol) socially [facility] Utilities Answer Date Recorded In the [...] How often do you attend gnosticist or caodaism serv ices? Never 07/27/2022 Do you belong [...] Answer Date Recorded PHQ-2 Score 6 07/10/2024 [facility] of Occupat ional Health - Occupational Stress [...] Comments Blood Pressure 131/82 07/24/2024 9:20 AM HUMAN RESOURCE ADVISOR Pulse 110 07/24/2024 9:20 AM HUMAN RESOURCE ADVISOR Temperature 36.6 C (97.9 F) 07/24/2024 9:20 AM HUMAN RESOURCE ADVISOR Respiratory Rate 16 07/24/2024 9:20 AM HUMAN RESOURCE ADVISOR Oxygen Saturation 94% 07/24/2024 9:20 AM HUMAN RESOURCE ADVISOR Inhaled Oxygen Concentration - - Weight - - Height - - Body Mass Index - - documented in this encounter Plan of Treatment Upcoming Encounters Date Type Department Care Team (Late st Contact Info) Description 08/30/2024 9:00 AM HUMAN RESOURCE ADVISOR Office Visit Department of Community Internal Medicine in [place], [place] 300 [facility] [place] [phone] Prudence Mena MPAS, P.A.-C. 300 [place] [phone] documented as of this encounter Visit Diagnoses [...] infection, community acquired Given 07/24/2024 9:33 AM HUMAN RESOURCE ADVISOR 2 g sodium chloride 0.9 % injection 10-30 mL 10-30 mL, intravenous, As needed, line care, Starting on Mon07/24/24 at 0917, Prior to and following infusion, between multiple consecutive infusions.10 mL to each lumen.Indications:Empyema Pleural (HCC) Given 07/24/2024 9:43 AM HUMAN RESOURCE ADVISOR 10 mL Given 07/24/2024 9:30 AM HUMAN RESOURCE ADVISOR 10 mL documented in this encounter Additional Health Concerns Assessment Noted Time PHQ-9 Depression Total Score: 22 025 7:19 PM HUMAN RESOURCE ADVISOR documented as of this encounter Care Teams Technical Customer Support Specialist Relationship Specialty Start Date End Date Prudence Mena MPAS, P.A.-C. 300 [facility] [place] [phone] PCP - General Internal Medicine 02/08/24 documented as of this encounter
--- OUTSIDE RECORDS SUMMARY | 2024-08-28 18:17 | XMS_ITS | Encounter Summary ---
Author Organization [facility] Address [address] [place] [address] Care Team Providers Care Dinkey Engine Firer/Fireman Name Role Phone Prudence eMna P.A.-CDmitry Primary Care Pro vider Reason for Referral * MRI/CAT/PET Scan (Routine) - Closed Specialty Diagnoses / Procedures Referred By Chrisac t Referred To Contact Radiology Diagnoses Pneumonia Procedures CT Chest with IV Contrast Prudence Mena MPAS, P.A.-C. [address] [place] [address] Phone: tel: fax: [facility] Region Referral ID Status Reason Start Date Expiration Date Visits Re quested Visits Authorized [id number] Closed 07/12/2024 07/12/2025 1 1 YTICAL CONSULTANT Reason for Visit * MRI/CAT/PET Scan (Routine) - Closed Specialty Diagnoses / Procedures Referred By Contac t Referred To Contact Radiology Diagnoses Pneumonia Procedures CT Chest with IV Contrast Prudence Mean MPAS P.A.-CDmitry [address] [place] [address] Phone: tel: fax: [facility] Region Referral ID Status Reason Start Date Expiration Date Visits Re quested Visits Authorized [id number] Closed 07/12/2024 07/12/2025 1 1 Encounter Details Date Type Department Care Team (Latest Contact Info) Description 07/24/2024 9:03 AM ANALYTICAL CONSULTANT - 07/24/2024 11:59 PM ANALYTICAL CONSULTANT Hospital Encounter Department of Radiology in [address] [place] [address] Prudence Mena MPAS, P.A.-C. [address] [facility] [phone] Pneumonia Discharge Disposition: Home or Self Care Social History Tobacco Use Types Packs/Day Years Used Date Smoking Tobacco: Former Cigarettes 1.5 0.2 S tarted: 06/21/2024 Passive Smoke Exposure: Past Smokeless Tobacco: Never Alcohol Use Standard Drinks/Week Comments Yes 0 (1 standard drink = 0.6 oz pur e alcohol) socially [facility] Utilities Answer Date Recorded In the past 12 months has e [employer], gas, oil, or water [employer] threatened to shut off services in [...] How often do you attend muslim or restorationism serv ices? Never 07/27/2022 Do [...] 6 07/10/2024 [facility] - Occupational Stress Questionnaire Answer Date [...] daily for 10 days. 16 g 06/11/2024 guaiFENesin (Mucinex) 600 mg 12 hr tablet [...] a venous catheter daily for [address] [facility] 07/19/2024 5 methocarbamoL (Robaxin) 500 mg tablet Take 1 tablet (500 mg total) by mouth 3 (three) times a day as needed for muscle spasms. 45 tablet 07/20/2024 10:13 AM ANALYTICAL CONSULTANT 07/19/2024 5 metroNIDAZOLE (FlagyL) 500 mg tabletIndication s:Empyema Take 1 tablet (500 mg total) by mouth 3 (three) times a day for 17 days Indications: Empyema. 51 tablet 07/20/2024 10:13 AM ANALYTICAL CONSULTANT 07/19/2024 5 nitrofurantoin (MACRODANTIN) 50 mg capsule TAKE ONE CAPSULE BY MOUTH ONE TIME DAILY 90 capsule 3 04/21/2023 5 oxyCODONE (Roxicodone) 5 mg immediate release tabletIndication s:Acute Pain Exception Take 1 tablet (5 mg total) by mouth every 4 (four) hours as needed for moderate pain or score 4-6 of 10 (for breakthrough pain) Indication: Acute Pain Exception. 28 tablet 07/20/2024 10:13 AM ANALYTICAL CONSULTANT 07/19/2024 5 sennosides (senna) 8.6 mg tablet Take 2 tablets (17.2 mg total) by mouth daily. 07/20/2024 documented as of this encounter Plan of Treatment Upcoming Encounters Date Type Department Care Team (Late st Contact Info) Description 08/30/2024 9:00 AM ANALYTICAL CONSULTANT Office Visit Department of Community Internal Medicine in [place], [place] [address] [facility] [address] Prudence Mena MPAS, PDmitryA.-C. [address] Located [place] [address] documented as of this encounter Procedures Procedure Name Priority Date/Time Associated Diagnosis Comments CT CHEST WITH IV CONTRAST RAD - Routine (most inpatients and all outpatients) 07/24/2024 10:24 AM ANALYTICAL CONSULTANT Pneumonia documented in this encounter Results * CT Chest with IV Contrast (07/24/2024 10:24 AM ANALYTICAL CONSULTANT) Anatomical Region Laterality Modality Chest, Thoracic RST LOS, Tho racic ARZ LOS, Thoracic ARZ LOS, Thoracic FLA LOS N/A Computed Tomography 07/24/2024 10:2 2 AM ANALYTICAL CONSULTANT Impressions 07/24/2024 11:16 AM ANALYTICAL CONSULTANT Pneumonia and small left pleural effusion. Narrative 07/24/2024 11:16 AM ANALYTICAL CONSULTANT EXAM: CT CHEST WITH IV CONTRAST COMPARISON: [...] For 1 dose Given 07/24/2024 10:16 AM ANALYTICAL CONSULTANT 80 mL sodium chloride 0.9 % flush 80 mL 80 mL, intravenous, Once, On Mon07/24/24 at 0930, For 1 dose Given 07/24/2024 10:19 AM ANALYTICAL CONSULTANT 80 mL sodium chloride 0.9 % injection 10 mL 10 mL, intravenous, Once, On Mon07/24/24 at 0930, For 1 dose Given 07/24/2024 10:19 AM ANALYTICAL CONSULTANT 10 mL documented in this encounter Additional Health Concerns Assessment Noted Time PHQ-9 Depression Total Score: 22 025 7:19 PM ANALYTICAL CONSULTANT documented as of this encounter Care Teams Dinkey Engine Firer/Fireman Relationship Specialty Start Date End Date Prudence Mena MPAS, P.A.-C. [address] [facility] [place] [address] PCP - General Internal Medicine 02/08/24 documented as of this encounter
--- OUTSIDE RECORDS SUMMARY | 2024-08-28 18:17 | XMS_ITS | Encounter Summary ---
Author Organization [facility] Address [address] [place] [address] Care Team Providers Care Air Compressor Operator Name Role Phone Prudence Mena P.A.-C. Primary Care Pro vider Reason for Visit * Reason Comments Outpatient Infusion Encounter Details Date Type Department Care Team (Late st Contact Info) Description 07/21/2024 9:00 AM TIPPING MACHINE OPERATOR Infusion Department of Infusion Therapy in [address] [phone] Melinda Isaac, FRED, C.N.P. [address] [place] [phone] Empyema Pleural (HCC) (Primary Dx); Pneumonia Social [...] How often do you attend hinduism or taoist serv ices? Never 07/27/2022 Do [...] Answer Date Recorded PHQ-2 Score 6 07/10/2024 [facility] Occupat ional [facility] - Occupational Stress [...] Comments Blood Pressure 137/89 07/21/2024 9:19 AM TIPPING MACHINE OPERATOR Pulse 103 07/21/2024 9:19 AM TIPPING MACHINE OPERATOR Temperature 36 C (96.8 F) 07/21/2024 9:19 AM TIPPING MACHINE OPERATOR Respiratory Rate 18 07/21/2024 9:19 AM TIPPING MACHINE OPERATOR Oxygen Saturation 95% 07/21/2024 9:19 AM TIPPING MACHINE OPERATOR Inhaled Oxygen Concentration - - Weight - - Height - - Body Mass Index - - documented in this encounter Plan of Treatment Upcoming Encounters Date Type Department Care Team (Late st Contact Info) Description 08/30/2024 9:00 AM TIPPING MACHINE OPERATOR Office Visit Department of Community Internal Medicine in [place], [place] [address] [facility] [place] [address] Prudence Mena MPAS, P.A.-C. [address] [place] [phone] documented as of this encounter Procedures Procedure Name Priority Date/Time Associated Diagnosis Comments CBC WITH DIFFERENTIAL, B Routine 07/21/2024 9:24 AM TIPPING MACHINE OPERATOR Pneumonia BASIC METABOLIC PANEL, S/P Routine 07/21/2024 9:24 AM TIPPING MACHINE OPERATOR Pneumonia documented in this encounter Results * (ABNORMAL) Basic Metabolic Panel (07/21/2024 9:24 AM TIPPING MACHINE OPERATOR) Potassium, P 3.1(L) 3.6 - 5.2 mmol/L 07/21/2024 9:55 AM TIPPING MACHINE OPERATOR RDWG Sodium, P 143 135 - 145 mmol/L 07/21/2024 9:55 AM TIPPING MACHINE OPERATOR RDWG Chloride, P 102 98 - 107 mmol/L 07/21/2024 9:55 AM TIPPING MACHINE OPERATOR RDWG Bicarbonate, P 30(H) 22 - 29 mmol/L 07/21/2024 9:55 AM TIPPING MACHINE OPERATOR RDWG Anion Gap, P 11 7 - 15 07/21/2024 9:55 AM TIPPING MACHINE OPERATOR RDWG BUN (Blood Urea Nitrogen), P 8 6 - 21 mg/dL 07/21/2024 9:55 AM TIPPING MACHINE OPERATOR RDWG Creatinine 0.69 0.59 - 1.04 mg/dL 07/21/2024 9:55 AM TIPPING MACHINE OPERATOR RDWG Estimated GFR (eGFR) >90 >=60 mL/min/BSA 07/21/2024 9:55 AM TIPPING MACHINE OPERATOR RDWG Comment: Estimated GFR calculated using the 2020 CKD_EPI creatinine equation. Calcium, Total, P 8.7 8.6 - 10.0 mg/dL 07/21/2024 9:55 AM TIPPING MACHINE OPERATOR RDWG Glucose, P 97 70 - 140 mg/dL 07/21/2024 9:55 AM TIPPING MACHINE OPERATOR RDWG Blood (Blood, Venous) 07/21/2024 9:24 AM TIPPING MACHINE OPERATOR 07/21/2024 9:32 AM TIPPING MACHINE OPERATOR Prudence TO, P.A.-C. LAB BLOOD ADD-ON Final Result [facility] [address] [place] [address], RUST RDWG [facility] [place] [address] [place] [address] * (ABNORMAL) CBC with Differential, Blood (07/21/2024 9:24 AM TIPPING MACHINE OPERATOR) Hemoglobin 8.6(L) 11.6 - 15.0 g/dL 07/21/2024 9:34 AM TIPPING MACHINE OPERATOR RDWG Hematocrit 27.0(L) 35.5 - 44.9 % 07/21/2024 9:34 AM TIPPING MACHINE OPERATOR RDWG Erythrocytes 3.00(L) 3.92 - 5.13 x10(12)/L 07/21/2024 9:34 AM TIPPING MACHINE OPERATOR RDWG MCV 90.0 78.2 - 97.9 fL 07/21/2024 9:34 AM TIPPING MACHINE OPERATOR RDWG RBC Distrib Width 15.5 12.2 - 16.1 % 07/21/2024 9:34 AM TIPPING MACHINE OPERATOR RDWG Platelet Count 515(H) 157 - 371 x10(9)/L 07/21/2024 9:34 AM TIPPING MACHINE OPERATOR RDWG Leukocytes 7.9 3.4 - 9.6 x10(9)/L 07/21/2024 9:34 AM TIPPING MACHINE OPERATOR RDWG Neutrophils 5.44 1.56 - 6.45 x10(9)/L 07/21/2024 9:34 AM TIPPING MACHINE OPERATOR RDWG Lymphocytes 1.31 0.95 - 3.07 x10(9)/L 07/21/2024 9:34 AM TIPPING MACHINE OPERATOR RDWG Monocytes 0.65 0.26 - 0.81 x10(9)/L 07/21/2024 9:34 AM TIPPING MACHINE OPERATOR RDWG Eosinophils 0.45 0.03 - 0.48 x10(9)/L 07/21/2024 9:34 AM TIPPING MACHINE OPERATOR RDWG Basophils <0.03 0.01 - 0.08 x10(9)/L 07/21/2024 9:34 AM TIPPING MACHINE OPERATOR RDWG Blood (Blood, Venous) 07/21/2024 9:24 AM TIPPING MACHINE OPERATOR 07/21/2024 9:32 AM TIPPING MACHINE OPERATOR us Prudence TO, P.A.-C. LAB BLOOD ADD-ON Final Result [facility] [address] [place] [address], RUST RDWG [facility] [place] [address] [place] [address] documented in this encounter Visit Diagnoses Diagnosis [...] infection, community acquired Given 07/21/2024 9:28 AM TIPPING MACHINE OPERATOR 2 g sodium chloride 0.9 % injection 10-30 mL 10-30 mL, intravenous, As needed, line care, Starting on 07/21/24 at 0903, Prior to and following infusion, between multiple consecutive infusions.10 mL to each lumen.Indications:Empyema Pleural (HCC) Given 07/21/2024 9:32 AM TIPPING MACHINE OPERATOR 10 mL Given 07/21/2024 9:00 AM TIPPING MACHINE OPERATOR 30 mL documented in this encounter Additional Health Concerns Assessment Noted Time PHQ-9 Depression Total Score: 22 025 7:19 PM TIPPING MACHINE OPERATOR documented as of this encounter Care Teams Air Compressor Operator Relationship Specialty Start Date End Date Prudence Mena MPAS, P.A.-C. [address] [place] [address] [place] [phone] PCP - General Internal Medicine 02/08/24 documented as of this encounter
--- OUTSIDE RECORDS SUMMARY | 2024-08-28 18:17 | XMS_ITS | Clinical Summary ---
Author Organization [facility] Address [address] [place] [address] Care Team Providers Care Assistant [employer] Name Role Phone Prudence Mena P.A.-C. Primary Care Pro vider Source Comments Patient records contain information from all sites at [facility]. For routine questions regarding patient records, call [phone] during business hours, M-F 8:00 AM - 5:00 PM Central Time. Record requests for emergency care only can be directed to [phone] at any time.[facility] Allergies Active Allergy Reactions Criticality Noted Date [...] 6 (six) hours as needed for pain. 020 Active traZODone (DESYREL) 50 mg tablet TAKE 1-4 TABLETS BY MOUTH ONCE DAILY AT BEDTIME. 022 Active estradioL (ESTRACE) 0.1 mg/g (0.01%) vaginal cream Insert 1 g into the vagina 3 (three) times a week. Nightly for first week. 42 g 3 022 Active multivitamin capsule Take 1 capsule by mouth daily. Active cholecalciferol (VITAMIN D3) 50 mcg (2,000 Unit) capsule Take 50 mcg by mouth daily. 023 Active Vraylar 4.5 mg capsule Take 4.5 mg by mouth at bedtime. 023 Active fluticasone propion-salmetero L (Advair HFA) 115-21 mcg/actuation inhaler Inhale 2 puffs 2 (two) times a day. 12 g 3 023 Active buPROPion XL (WELLBUTRIN XL) 150 mg 24 hr tablet Take 1 tablet (150 mg total) by mouth every morning. Take with 300 mg tablet for a total daily dose of 450 mg. 90 tablet 2 023 Active buPROPion XL (WELLBUTRIN XL) 300 mg 24 hr tablet Take 1 tablet (300 mg total) by mouth every morning. Take with 150 mg tablet for a total daily dose of 450 mg daily. 90 tablet 2 023 Active polyethylene glycol (MIRALAX) 17 gram/dose oral powder Take 17 g by mouth daily. Dissolve each 17 g dose in 240 mL (8 ounces) of beverage. 850 g 3 023 Active elagolix (Orilissa) 150 mg tablet tablet Take 1 tablet (150 mg total) by mouth daily. 30 tablet 11 023 Active DULoxetine (CYMBALTA) [address] capsule Take 60 mg by mouth every morning. 023 Active dextroamphetamine -amphetamine (ADDERALL) 10 mg tablet Take 1 tablet by mouth between 12pm and 2pm daily* Active dextroamphetamine sulfate (Dexedrine Spansule) 15 mg ER capsule Take 1 capsule by mouth every morning. Active DME CPAPIndications:O bstructive Sleep Apnea Adult DME Order 1 each Active Additional Information Patient not taking.Informant: Self, Reported on 08/21/2024 lisinopriL 10 mg tablet Take 1 tablet (10 mg total) by mouth daily. 90 tablet 3 024 Active Ventolin HFA 90 mcg/actuation inhaler INHALE 2 PUFFS EVERY 4 HOURS NEEDED FOR WHEEZING OR SHORTNESS OF BREATH. 54 g 3 024 Active pregabalin (Lyrica) 200 mg capsuleIndication s:Fibromyalgia Take 1 capsule (200 mg total) by mouth 3 (three) times a day. 90 capsule 3 024 Active fluticasone propionate (Flonase) 50 mcg/actuation nasal spray Administer 2 sprays into each nostril daily for 10 days. 16 g 024 Active albuterol 2.5 mg /3 mL nebulizer solution Inhale 3 mL (2.5 mg total) by nebulization every 4 (four) hours as needed for wheezing or shortness of breath. 75 mL 2 024 Active ipratropium-albut [place] (DuoNeb) 0.5-2.5 mg/3 mL nebulizer solution Inhale 3 mL by nebulization 4 (four) times a day as needed for shortness of breath. 180 mL 3 024 Active LORazepam (Ativan) 0.5 mg tablet Take 0.5 mg by mouth daily as needed for anxiety. 024 Active lidocaine (Lidoderm) 5 % adhesive patch,medicated Place 1 patch on the skin daily. Apply to painful area 12 hours per day, remove for 12 hours. 10 patch 025 Active guaiFENesin (Mucinex) 600 mg 12 hr tablet Take 1,200 mg by mouth 2 (two) times a day. Active ibuprofen 400 mg tablet Take 1 tablet (400 mg total) by mouth every 6 (six) hours as needed for moderate pain or score 4-6 of 10 or severe pain or score 7-10 of 10 for up to 3 days. 12 tablet 025 Active ketoconazole (Nizoral) 2 % cream Apply 1 Application topically daily. Apply to affected area. 30 g 025 Active ondansetron ODT (Zofran-ODT) 4 mg disintegrating tablet Dissolve 1 tablet (4 mg total) in the mouth every 8 (eight) hours as needed for nausea or vomiting. 20 tablet 025 Active nystatin (Nystop) 100,000 unit/gram powder Apply 1 Application topically 3 (three) times a day. Apply to affected area. 30 g 1 025 Active oxyCODONE (Roxicodone) 5 mg immediate release tabletIndications :Acute Pain Take 1.5 tablets (7.5 mg total) by mouth at bedtime as needed for pain Indication: Acute Pain. 5 tablet Active methocarbamoL (Robaxin) 500 mg tablet Take 1 tablet (500 mg total) by mouth 3 (three) times a day as needed for muscle spasms. 45 tablet Active methocarbamoL (Robaxin) 500 mg tablet Take 1 tablet (500 mg total) by mouth 3 (three) times a day as needed for muscle spasms. 45 tablet 07/20/19 25 10:13 AM TURNTABLE MAN 025 2024 Discontinued(R eorder) metroNIDAZOLE (FlagyL) 500 mg tabletIndications :Empyema Take 1 tablet (500 mg total) by mouth 3 (three) times a day for 17 days Indications: Empyema. 51 tablet 07/20/19 10:13 AM TURNTABLE MAN 025 2024 Discontinued(T herapy completed) sennosides (senna) 8.6 mg tablet Take 2 tablets (17.2 mg total) by mouth daily. 025 2024 Discontinued cefTRIAXone in dextrose, iso osm, (Rocephin) 2 gram/50 mL IVBPIndications:E mpyema Pleural (HCC) Infuse 50 mL (2 g total) into a venous catheter daily for 17 days. [facility] 025 2024 Discontinued(T herapy completed) ondansetron (Zofran) 4 mg tablet Take 1 tablet (4 mg total) by mouth every 8 (eight) hours as needed for nausea or vomiting for up to 3 days. 10 tablet 025 2024 ondansetron ODT (Zofran-ODT) 4 mg disintegrating tablet Dissolve 1 tablet (4 mg total) in the mouth every 8 (eight) hours as needed for nausea or vomiting. 20 tablet 025 2024 Discontinued(R eorder) oxyCODONE (Roxicodone) 5 mg immediate release tabletIndications :Acute Pain Take 1.5 tablets (7.5 mg total) by mouth every 4 (four) hours as needed for pain Indication: Acute Pain. 27 tablet 025 2024 Discontinued(R eorder) oxyCODONE (Roxicodone) 5 mg immediate release tabletIndications :Acute Pain Take 1.5 tablets (7.5 mg total) by mouth every 4 (four) hours as needed for pain Indication: Acute Pain. 27 tablet 025 2024 Discontinued(R eorder) methocarbamoL (Robaxin) 500 mg tablet Take 1 tablet (500 mg total) by mouth 3 (three) times a day as needed for muscle spasms. 45 tablet 025 2024 Discontinued(R eorder) amoxicillin-pot clavulanate (Augmentin) 875-125 mg per tabletIndications :Empyema Pleural (HCC) Take 1 tablet by mouth every 12 (twelve) hours for 10 days. 20 tablet 025 2024 oxyCODONE (Roxicodone) 5 mg immediate release tabletIndications :Acute Pain Take 1.5 tablets (7.5 mg total) by mouth every 4 (four) hours as needed for pain Indication: Acute Pain. 27 tablet 025 2024 Discontinued(R eorder) oxyCODONE (Roxicodone) 5 mg immediate release tabletIndications :Acute Pain Take 1.5 tablets (7.5 mg total) by mouth every 4 (four) hours as needed for pain Indication: Acute Pain. 27 tablet 025 2024 Discontinued(R eorder) ondansetron ODT (Zofran-ODT) 4 mg disintegrating tablet Dissolve 1 tablet (4 mg total) in the mouth every 8 (eight) hours as needed for nausea or vomiting. 20 tablet 025 2024 Discontinued(R eorder) oxyCODONE (Roxicodone) 5 mg immediate release tabletIndications :Acute Pain Take 1.5 tablets (7.5 mg total) by mouth every 4 (four) hours as needed for pain Indication: Acute Pain. 27 tablet 025 2024 Discontinued(R eorder) oxyCODONE (Roxicodone) 5 mg immediate release tabletIndications :Acute Pain Take 1.5 tablets (7.5 mg total) by mouth every 4 (four) hours as needed for pain Indication: Acute Pain. 10 tablet 025 2024 Discontinued(R eorder) oxyCODONE (Roxicodone) 5 mg immediate release tabletIndications :Acute Pain Take 1.5 tablets (7.5 mg total) by mouth every 4 (four) hours as needed for pain Indication: Acute Pain. 27 tablet 025 2024 Discontinued(R eorder) Active Problems Problem Noted Date Diagnosed Date Stool Positive Occult Blood 07/29/2024 Empyema Pleural 07/13/2024 Asthma 07/11/2024 Hemorrhage Gastrointestinal [...] for Sleep Medicine consult October 2023 in [place]. I have reordered her a consult as [...] 12/03/2021 Overview (09/03/2023): Follows with Psychiatry in [place]. Attends therapy in [place]. Attention Deficit With Hyperactivity Disorder Overview (09/03/2023): Follows with Psychiatry in [place]. Attends therapy in [place]. Major Depressive Disorder, Recurrent, Unspecifie d 12/03/2021 Overview (09/03/2023): Follows with Psychiatry in [place]. Attends therapy in [place]. Headache Unspecified 07/03/2019 Fracture Fifth Metacarpal Ba [...] Encounters Date Type Department Care Team Description 08/28/2024 Clinical Communication Division of Thoracic Surgery in [place], [place] [address] [place] [address] Patrick Mtz M.D., Ph.D. Post-op Problem 08/27/2024 11:30 AM TURNTABLE MAN Office Visit Division of Thoracic Surgery in [place], [place] [address] [place] [address] Lola Lambert APRN, C.N.P., M.S.N. Follow Up Examination Postoperative Visit (Primary Dx); Empyema Pleural (HCC) 08/27/2024 10:09 AM TURNTABLE MAN - 08/27/2024 11:59 PM TURNTABLE MAN Hospital Encounter Department of Radiology, [facility], in [place], [place] [address] [place] [address] Melinda Isaac APRN C.N.P. Empyema Pleural (HCC) Discharge Disposition: Home or Self Care 08/23/2024 Refill Department of Community Internal Medicine in [address] [phone] Prudence Mena MPAS, P.A.-C. Med Refill 08/21/2024 8:34 AM TURNTABLE MAN - 08/21/2024 11:59 PM TURNTABLE MAN Hospital Encounter Department of Laboratory Medicine in [address] [phone] Prudence Mena MPAS, P.A.-C. Anemia Discharge Disposition: Home or Self Care 08/21/2024 8:00 AM TURNTABLE MAN Office Visit Department of Community Internal Medicine in [address] [phone] Prudence Mena MPAS, P.A.-C. Empyema Pleural (HCC) (Primary Dx); Candidiasis Intertrigo; Anemia; Stool Positive Occult Blood 08/21/2024 Results Follow-Up Department of [facility] in [address] [phone] Prudence Mena MPAS, P.A.-C. CBC with Differential, Blood 08/16/2024 Refill Department of Community Internal Medicine in [address] [phone] Prudence Mena MPAS, P.A.-C. Med Refill 08/14/2024 Results Follow-Up Department of Family Medicine, [facility], in [address] [phone] Carmine Carrasco P.A.-C. Bacterial Culture, Aerobic + Susceptibility 08/12/2024 8:20 AM TURNTABLE MAN Ancillary Procedure Department of Family Medicine 08/12/2024 8:00 AM TURNTABLE MAN Office Visit Department of Community Internal Medicine in [address] [phone] Prudence Mena MPAS, P.A.-C. Empyema Pleural (HCC) (Primary Dx); Candidiasis Intertrigo 08/09/2024 Refill Department of Community Internal Medicine in [address] [place] [address] Prudence Mena MPAS, P.A.-C. Med Refill 08/06/2024 Clinical Communication Department of Community Internal Medicine in [address] [place] [address] Prudence Mena MPAS P.A.-C. New Med Request 08/06/2024 Orders Only Department of Community Internal Medicine in [address] [phone] Prudence Mena MPAS P.A.-C. 08/06/2024 Patient Outreach Section of Infectious Diseases in [place], [place] [address] [place] [phone] Karla Stein R.N. OPAT (Monitoring Complete) 08/05/2024 12:30 PM TURNTABLE MAN Infusion Department of Infusion Therapy in [place], [place] [address] [place] [phone] Shanel Starr P.A.-C. Hydraulic Strainer Operator Antibiotic Treatment 08/05/2024 11:00 AM TURNTABLE MAN Office Visit Section of Infectious Diseases in [place], [place] [address] [place] [phone] Kayleigh Small M.D. Vergidis, Paschalis, M.D. Empyema Pleural (HCC) 08/05/2024 8:20 AM TURNTABLE MAN - 08/05/2024 11:59 PM TURNTABLE MAN Hospital Encounter Department of Radiology, [facility], in [place], [place] [address] [place] [address] Kayleigh Small M.D. Empyema Pleural (HCC) Discharge Disposition: Home or Self Care 08/05/2024 Refill Department of Community Internal Medicine in [place] [address] [place] [address] Prudence Mena MPAS, P.A.-C. Med Refill 08/04/2024 9:00 AM TURNTABLE MAN Infusion Department of Infusion Therapy in [address] [phone] Melinda Isaac APRN, C.N.P. Empyema Pleural (HCC) (Primary Dx); Senior Living Antibiotic Treatment 08/03/2024 9:00 AM TURNTABLE MAN Infusion Department of Infusion Therapy in [address] [phone] Melinda Isaac APRN, C.N.P. Empyema Pleural (HCC) (Primary Dx) 08/02/2024 9:00 AM TURNTABLE MAN Infusion Department of Infusion Therapy in [address] [address] Melinda Isaac APRN, C.N.P. Empyema Pleural (HCC) (Primary Dx) 08/01/2024 7:00 AM TURNTABLE MAN Infusion Department of Infusion Therapy in [address] [phone] Melinda Isaac APRN, C.N.P. Empyema Pleural (HCC) (Primary Dx); Senior Living Antibiotic Treatment 08/01/2024 Refill Department of Community Internal Medicine in [place], [place] [address] [place] [address] Prudence Mena MPAS, P.A.-C. Med Refill 07/31/2024 8:00 AM TURNTABLE MAN Infusion Department of Infusion Therapy in [address] [phone] Melinda Isaac APRN CDmitryN.P. Empyema Pleural (HCC) (Primary Dx) 07/30/2024 9:00 AM TURNTABLE MAN Infusion Department of Infusion Therapy in [address] [phone] Melinda Isaac APRN C.N.P. Empyema Pleural (HCC) (Primary Dx) 07/29/2024 2:20 PM TURNTABLE MAN Office Visit Department of Community Internal Medicine in [address] [phone] Prudence Mena MPAS, P.A.-C. Stool Positive Occult Blood (Primary Dx); Empyema Pleural (HCC); Nausea; Major Depressive Disorder, Recurrent, Unspecified (HCC); Asthma (HCC) 07/29/2024 10:00 AM TURNTABLE MAN Infusion Department of Infusion Therapy in [address] [phone] Melinda Isaac APRN, C.N.P. Empyema Pleural (HCC) (Primary Dx) 07/29/2024 Patient Outreach Section of Infectious Diseases in [place], [place] [address] [place] [phone] Lashell Greene R.N. OPAT 07/29/2024 Clinical Communication Department of Oncology in [place], [place] [address] [place] [address] Denae Headley R.N. Results 07/28/2024 9:00 AM TURNTABLE MAN Infusion Department of Infusion Therapy in [address] [phone] Melinda Isaac APRN, C.N.P. Empyema Pleural (HCC) (Primary Dx) 07/27/2024 9:00 AM TURNTABLE MAN Infusion Department of Infusion Therapy in [place], [place] [address] [place] [phone] Melinda Isaac APRN, C.N.P. Empyema Pleural (HCC) (Primary Dx) 07/26/2024 9:14 AM TURNTABLE MAN - 07/26/2024 2:06 PM TURNTABLE MAN Emergency [facility] [address] [place] [phone] Dilcia Valero APRN, C.N.P. Pain Chest Wall (Primary Dx) Discharge Disposition: Home or Self Care 07/26/2024 9:00 AM TURNTABLE MAN Infusion Department of Infusion Therapy in [address] [phone] Melinda Isaac APRN, C.N.P. Empyema Pleural (HCC) (Primary Dx) 07/26/2024 Results Follow-Up [facility] [address] [place] [address] Lindsay Mejias R.N. Sedimentation Rate 07/25/2024 9:00 AM TURNTABLE MAN Infusion Department of Infusion Therapy in [address] [phone] Melinda Isaac APRN, C.N.P. Empyema Pleural (HCC) (Primary Dx) 07/25/2024 Orders Only Division of Thoracic Surgery in [place], [place] [address] [place] [address] Eveline Mariscal, PDmitryA.-Cherelle. 07/24/2024 9:03 AM TURNTABLE MAN - 07/24/2024 11:59 PM TURNTABLE MAN Hospital Encounter Department of Radiology in [address] [phone] DeaPrudence fernandez MPAS, P.A.-C. Pneumonia Discharge Disposition: Home or Self Care 07/24/2024 9:03 AM TURNTABLE MAN - 07/24/2024 11:59 PM TURNTABLE MAN Hospital Encounter Department of Laboratory Medicine in [address] [phone] Melinda Cohen MPAS P.A.-C., M.S. Senior Living Antibiotic Treatment Discharge Disposition: Home or Self Care 07/24/2024 9:00 AM TURNTABLE MAN Infusion Department of Infusion Therapy in [address] [phone] Melinda Isaac APRN, C.N.P. Empyema Pleural (HCC) (Primary Dx) 07/24/2024 Results Follow-Up Department of Community Internal Medicine in [address] [phone] Prudence Mena MPAS, P.A.-C. CT Chest with IV Contrast 07/23/2024 9:00 AM TURNTABLE MAN Infusion Department of Infusion Therapy in [address] [phone] Melinda Isaac APRN, C.N.P. Empyema Pleural (HCC) (Primary Dx) 07/23/2024 Clinical Communication Department of Infusion Therapy in [address] [phone] Tita Bell R.N. Reschedule 07/22/2024 9:00 AM TURNTABLE MAN Infusion Department of Infusion Therapy in [address] [address] Melinda Isaac APRN, C.N.P. Empyema Pleural (HCC) (Primary Dx) 07/22/2024 Clinical Communication Department of Community Internal Medicine in [address] [phone] Rosalva Galeano R.N. Post Hospital Follow-up (Completed - DC'd 07/20/24 @ 1016) 07/22/2024 Patient Outreach Section of Infectious Diseases in [place], [place] [address] [place] [address] Sneha Barrett Care Coordination 07/22/2024 Results Follow-Up Department of Community Internal Medicine in [place], [place] [address] [place] [phone] Prudence Mena MPAS, P.A.-C. CBC with Differential, Blood, Basic Metabolic Panel 07/21/2024 9:00 AM TURNTABLE MAN Infusion Department of Infusion Therapy in [place], [place] [address] [place] [phone] Melinda Isaac APRN, C.N.P. Empyema Pleural (HCC) (Primary Dx); Pneumonia 07/19/2024 Clinical Communication Division of Thoracic Surgery in [place], [place] [address] [place] [address] Melinda Isaac APRN, C.N.P. 07/18/2024 Clinical Communication [facility] [address] [place] [phone] Kayleigh Small M.D. Post Hospital Follow-up 07/15/2024 1:10 PM TURNTABLE MAN - 07/15/2024 4:33 PM TURNTABLE MAN Surgery [facility] [address] [place] [phone] Patrick Mzt M.D., Ph.D. ROBOTIC THORACOSCOPY, DECORTICATION, PLEURODESIS, PROCEED INDICATED. 07/15/2024 12:57 PM TURNTABLE MAN Anesthesia Event [facility] [address] [place] [phone] Lanre Hayward M.D. Aroldo Johnson, R.N. 07/13/2024 7:53 PM TURNTABLE MAN - 07/20/2024 10:16 AM TURNTABLE MAN Hospital Encounter [facility], Tenth Floor [address] [place] [phone] Patrick Mtz M.D., Ph.D. Empyema Pleural (HCC) (Primary Dx) Discharge Disposition: Home or Self Care 07/13/2024 Intake [facility] 07/11/2024 11:17 AM TURNTABLE MAN - 07/11/2024 11:59 PM TURNTABLE MAN Hospital Encounter Department of Radiology in [address] [phone] Prudence Mena MPAS, P.A.-C. Pneumonia Discharge Disposition: Home or Self Care 07/11/2024 11:08 AM TURNTABLE MAN - 07/11/2024 11:16 AM TURNTABLE MAN Hospital Encounter Department of Laboratory Medicine in [address] [phone] Prudence Mena MPAS, P.A.-C. Pneumonia Discharge Disposition: Home or Self Care 07/11/2024 11:07 AM TURNTABLE MAN Hospital Encounter Department of Laboratory Medicine in [address] [phone] Prudence Mena MPAS, P.A.-C. Blood In Stool Discharge Disposition: Home or Self Care 07/11/2024 10:40 AM TURNTABLE MAN Office Visit Department of [facility] in [address] [phone] Prudence Mena MPAS, P.A.-C. Hypokalemia (Primary Dx); Pneumonia; Effusion Pleural; Blood In Stool 07/11/2024 Clinical Communication Department of [facility] in [address] [phone] Prudence Mena MPAS, P.A.-C. 07/11/2024 Orders Only Department of Community Internal Medicine in [address] [phone] Prudence Mena MPAS, P.A.-C. Pneumonia (Primary Dx) 06/11/2024 3:30 PM TURNTABLE MAN Office Visit Department of Family Medicine, [facility], in [place], [place] [address] [place] [address] Kaley Jones APRN, C.N.P., Bari.N.P. Infection Upper Respiratory (Primary Dx) 06/11/2024 Nurse Triage Department of Community Internal Medicine in [place], [place] [address] [place] [address] Eduardo Ding RDmitryN. Cough from Last 3 Months Immunizations Immunization [...] disorder Mother Kandice Haynes Depression Mother Kandice [place] Hypertension Mother Kandice Haynes Sleep apnea Mother Kandice [place] Thyroid disease Mother Kandice Haynes Relation Name [...] Never 07/27/2022 How often do you attend christianity or episcopalian serv ices? Never 07/27/2022 Do you belong to any clubs o r organizations such as christianity groups, unions, fraternal or athletic groups, or [...] 6 07/10/2024 [facility] Questionnaire Answer [...] Comments Blood Pressure 105/74 08/21/2024 8:02 AM TURNTABLE MAN Pulse 108 08/21/2024 8:02 AM TURNTABLE MAN Temperature 36.1 C (97 F) 08/21/2024 8:02 AM TURNTABLE MAN Respiratory Rate 16 08/12/2024 8:01 AM TURNTABLE MAN Oxygen Saturation 98% 08/21/2024 8:02 AM TURNTABLE MAN Inhaled Oxygen Concentration - - Weight 88 kg (194 lb 0.1 oz) 08/21/2024 8:02 AM TURNTABLE MAN Height 165 cm (5' 4.96) 08/21/2024 8:02 AM TURNTABLE MAN Body Mass Index 32.32 08/21/2024 8:02 AM TURNTABLE MAN Plan of Treatment Upcoming Encounters Date Type Department Care Team (Late st Contact Info) Description 08/30/2024 9:00 AM TURNTABLE MAN Office Visit Department of Community Internal Medicine in [place], [place] [address] [place] [phone] Prudence Mena, YOUSUF, P.A.-C. [address] [place] [phone] Health Maintenance Due Date Last Done Comments Hepatitis B Screening 1986 Hepatitis B Vaccines (1 of 3 - 19+ 3-dose series) 2005 Pneumococcal vaccine (0-49 years) (1 of 2 - PCV) 2005 DTaP,Tdap,and Td Vaccines (2 - Td or Tdap) 11/08/2023 11/07/2013 COVID-19 Vaccine (2023- season) 2024 08/23/2022, 12/23/2021, 12/02/2021 Influenza Vaccine (#1) 2024 09/13/2013 Visit: Chronic Disease, age 18+ 06/05/2024 06/05/2023 Depression Monitoring (PHQ-9 for quality tracking) 07/03/2024 Asthma Action Plan 07/11/2024 Asthma Control Test Questionnaire 07/11/2024 Asthma Management/Exacerbation Questionnaire (AMQ/AEQ) 07/11/2024 Depression Monitoring (PHQ-9) 11/07/2024 07/10/2024 Glucose Test for Med Monitoring 07/26/2025 07/26/2024, 07/21/2024, 07/19/2024, Additional history exists Potassium Level 07/26/2025 07/26/2024, 07/03, 07/19/2024, Additional history exists Sodium Level 07/26/2025 07/26/2024, 07/03, 07/19/2024, Additional history exists Creatinine Level (Kidney Function Test) 08/04/2025 08/04/2024, 07/29/2024, 07/26/2024, Additional history exists Office Visit for Blood Pressure Check / Re-check 08/21/2025 08/21/2024 Lipid (Cholesterol) Screening 10/08/2025 10/08/2020 HIV Screening [...] inpatients and all outpatients) 08/27/2024 10:18 AM TURNTABLE MAN Empyema Pleural (HCC) CBC WITH DIFFERENTIAL, B Routine 08/21/2024 8:46 AM TURNTABLE MAN Anemia BACTERIAL CULTURE, AEROBIC + SUSC Routine 08/12/2024 8:35 AM TURNTABLE MAN Empyema Pleural (HCC) FAMILY MEDICINE IMAGE EXAM Routine 08/12/2024 8:19 AM TURNTABLE MAN DX CHEST AP OR PA AND LATERAL 2 VIEWS RAD - Routine (most inpatients and all outpatients) 08/05/2024 8:24 AM TURNTABLE MAN Empyema Pleural (HCC) ALKALINE PHOSPHATASE, S/P Routine 08/04/2024 9:11 AM TURNTABLE MAN Senior Living Antibiotic Treatment ALANINE AMINOTRANSFERASE (ALT), S/P Routine 08/04/2024 9:11 AM TURNTABLE MAN Senior Living Antibiotic Treatment CREATININE WITH EGFR, S/P Routine 08/04/2024 9:11 AM TURNTABLE MAN Senior Living Antibiotic Treatment CBC WITH DIFFERENTIAL, B Routine 08/04/2024 9:11 AM TURNTABLE MAN Senior Living Antibiotic Treatment CBC WITH DIFFERENTIAL, B Routine 08/01/2024 7:19 AM TURNTABLE MAN Empyema Pleural (HCC) Senior Living Antibiotic Treatment CREATININE WITH EGFR, S/P Routine 07/29/2024 10:15 AM TURNTABLE MAN Empyema Pleural (HCC) ALKALINE PHOSPHATASE, S/P Routine 07/29/2024 10:15 AM TURNTABLE MAN Empyema Pleural (HCC) ALANINE AMINOTRANSFERASE (ALT), S/P Routine 07/29/2024 10:15 AM TURNTABLE MAN Empyema Pleural (HCC) CBC WITH DIFFERENTIAL, B Routine 07/29/2024 10:15 AM TURNTABLE MAN Empyema Pleural (HCC) CT CHEST ANGIOGRAM AND PULMONARY ARTERIES WITH IV CONTRAST RAD - Semiurgent (Fast; most ED patients; some inpatients) 07/26/2024 10:37 AM TURNTABLE MAN DX CHEST AP OR PA AND LATERAL 2 VIEWS RAD - Semiurgent (Fast; most ED patients; some inpatients) 07/26/2024 9:54 AM TURNTABLE MAN BASIC METABOLIC PANEL, S/P STAT 07/26/2024 9:44 AM TURNTABLE MAN SEDIMENTATION RATE, B STAT 07/26/2024 9:44 AM TURNTABLE MAN C-REACTIVE PROTEIN (CRP), S/P STAT 07/26/2024 9:44 AM TURNTABLE MAN CBC WITH DIFFERENTIAL, B STAT 07/26/2024 9:[address] CHEST WITH IV CONTRAST RAD - Routine (most inpatients and all outpatients) 07/24/2024 10:24 AM TURNTABLE MAN Pneumonia ALKALINE PHOSPHATASE, S/P Routine 07/24/2024 10:02 AM TURNTABLE MAN Senior Living Antibiotic Treatment ALANINE AMINOTRANSFERASE (ALT), S/P Routine 07/24/2024 10:02 AM TURNTABLE MAN Senior Living Antibiotic Treatment CREATININE WITH EGFR, S/P Routine 07/24/2024 10:02 AM TURNTABLE MAN Hydraulic Strainer Operator Antibiotic Treatment CBC WITH DIFFERENTIAL, B Routine 07/24/2024 10:02 AM TURNTABLE MAN Hydraulic Strainer Operator Antibiotic Treatment BASIC METABOLIC PANEL, S/P Routine 07/21/2024 9:24 AM TURNTABLE MAN Pneumonia CBC WITH DIFFERENTIAL, B Routine 07/21/2024 9:24 AM TURNTABLE MAN Pneumonia DX CHEST AP OR PA AND LATERAL 2 VIEWS RAD - Routine (most inpatients and all outpatients) 07/19/2024 1:04 PM TURNTABLE MAN NOCTURNAL OXYGEN STUDY - RT Routine 07/19/2024 12:24 PM TURNTABLE MAN DX CHEST AP OR PA AND LATERAL 2 VIEWS RAD - Routine (most inpatients and all outpatients) 07/19/2024 9:10 AM TURNTABLE MAN ADULT OXYGEN THERAPY Routine 07/19/2024 8:01 AM TURNTABLE MAN BASIC METABOLIC PANEL, S/P Routine 07/19/2024 6:02 AM TURNTABLE MAN CBC WITHOUT DIFFERENTIAL, B Routine 07/19/2024 6:[address] PERIPHERALLY INSERTED CENTRAL CATHETER (PICC) Routine 07/18/2024 8:43 PM TURNTABLE MAN ADULT OXYGEN THERAPY Routine 07/18/2024 8:01 PM TURNTABLE MAN DX CHEST AP OR PA AND LATERAL 2 VIEWS RAD - Routine (most inpatients and all outpatients) 07/18/2024 10:15 AM TURNTABLE MAN ADULT OXYGEN THERAPY Routine 07/18/2024 8:00 AM TURNTABLE MAN ADULT OXYGEN THERAPY Routine 07/17/2024 8:01 PM TURNTABLE MAN HIV-1/-2 AG AND AB SCREEN, PLASMA Routine 07/17/2024 5:05 PM TURNTABLE MAN ADULT OXYGEN THERAPY Routine 07/17/2024 8:01 AM TURNTABLE MAN ADULT OXYGEN THERAPY Routine 07/16/2024 8:01 PM TURNTABLE MAN RESPIRATORY ASSESS AND TREAT Routine 07/16/2024 2:00 PM TURNTABLE MAN VANCOMYCIN, TROUGH, S Timed 07/16/2024 10:31 AM TURNTABLE MAN ADULT OXYGEN THERAPY Routine 07/16/2024 8:01 AM TURNTABLE MAN ADULT OXYGEN THERAPY Routine 07/15/2024 8:01 PM TURNTABLE MAN ADULT OXYGEN THERAPY Routine 07/15/2024 6:49 PM TURNTABLE MAN ADULT OXYGEN THERAPY Routine 07/15/2024 6:49 PM TURNTABLE MAN ADULT OXYGEN THERAPY Routine 07/15/2024 6:49 PM TURNTABLE MAN DX CHEST 1 VIEW RAD - Routine (most inpatients and all outpatients) 07/15/2024 4:51 PM TURNTABLE MAN BACTERIAL CULTURE, AEROBIC + SUSC Routine 07/15/2024 4:00 PM TURNTABLE MAN Empyema Pleural (HCC) ACTINOMYCES CULTURE Routine 07/15/2024 4 :00 PM TURNTABLE MAN Empyema Pleural (HCC) MYCOBACTERIAL CULTURE, V Routine 07/15/2024 4:00 PM TURNTABLE MAN Empyema Pleural (HCC) FUNGAL SMEAR Routine 07/15/2024 4:00 PM TURNTABLE MAN Empyema Pleural (HCC) LEGIONELLA CULTURE Routine 07/15/2024 4: 00 PM TURNTABLE MAN Empyema Pleural (HCC) ACID FAST SMEAR FOR MYCOBACTERIUM Routine 07/15/2024 4:00 PM TURNTABLE MAN Empyema Pleural (HCC) GRAM STAIN Routine 07/15/2024 4:00 PM TURNTABLE MAN Empyema Pleural (HCC) FUNGAL CULTURE, ROUTINE Routine 07/15/2024 4:00 PM TURNTABLE MAN Empyema Pleural (HCC) BACTERIAL CULTURE, ANAEROBIC + SUSC Routine 07/15/2024 4:00 PM TURNTABLE MAN Empyema Pleural (HCC) BACTERIAL CULTURE, AEROBIC + SUSC Routine 07/15/2024 2:24 PM TURNTABLE MAN Empyema Pleural (HCC) MYCOBACTERIAL CULTURE, V Routine 07/15/2024 2:24 PM TURNTABLE MAN Empyema Pleural (HCC) FUNGAL SMEAR Routine 07/15/2024 2:24 PM TURNTABLE MAN Empyema Pleural (HCC) ACID FAST SMEAR FOR MYCOBACTERIUM Routine 07/15/2024 2:24 PM TURNTABLE MAN Empyema Pleural (HCC) GRAM STAIN Routine 07/15/2024 2:24 PM TURNTABLE MAN Empyema Pleural (HCC) FUNGAL CULTURE, ROUTINE Routine 07/15/2024 2:24 PM TURNTABLE MAN Empyema Pleural (HCC) LDA ANE ARTERIAL LINE INSERTION Routine 07/15/2024 1:31 PM TURNTABLE MAN LA ARTL CATH/CNULA MONITOR PERC Routine 07/15/2024 1:31 PM TURNTABLE MAN LDA ANE ENDOTRACHEAL AIRWAY Routine 07/15/2024 1:17 PM TURNTABLE MAN THORACOSCOPY - DECORTICATION 07/15/2024 12:32 PM TURNTABLE MAN Empyema Pleural (HCC) TYPE AND SCREEN STAT 07/15/2024 7:50 AM TURNTABLE MAN MRSA/STAPHYLOCOCCUS AUREUS, NASAL, BY PCR Routine 07/14/2024 10:39 AM TURNTABLE MAN BASIC METABOLIC PANEL, S/P Routine 07/14/2024 4:09 AM TURNTABLE MAN DX CHEST PORTABLE 1 VIEW RAD - Routine (most inpatients and all outpatients) 07/13/2024 9:07 PM TURNTABLE MAN CBC WITHOUT DIFFERENTIAL, B Routine 07/13/2024 8:14 PM TURNTABLE MAN OUTSIDE DX CHEST Routine 07/13/2024 8:40 AM TURNTABLE MAN OUTSIDE CT BODY Routine 07/13/2024 12:05 AM TURNTABLE MAN DX CHEST AP OR PA AND LATERAL 2 VIEWS RAD - Routine (most inpatients and all outpatients) 07/11/2024 11:26 AM TURNTABLE MAN Pneumonia BASIC METABOLIC PANEL, S/P Routine 07/11/2024 11:17 AM TURNTABLE MAN Pneumonia CBC WITH DIFFERENTIAL, B Routine 07/11/2024 11:17 AM TURNTABLE MAN Pneumonia OUTSIDE CT BODY Routine 06/30/2024 11:45 AM TURNTABLE MAN OUTSIDE DX CHEST Routine 06/30/2024 10:05 AM TURNTABLE MAN OUTSIDE DX CHEST Routine 06/26/2024 2:20 PM TURNTABLE MAN from Last 3 Months Results * DX Chest AP or PA and Lateral 2 Views (08/27/2024 10:18 AM TURNTABLE MAN) Only the most recent of7 resultswithin the time period is included. Anatomical Region Laterality Modality Chest, Thoracic RST LOS, Tho racic ARZ LOS, Thoracic FLA LOS N/A Digital Radiography Impressions 08/27/2024 10:25 AM TURNTABLE MAN Compared to 08/05/2024, multifocal linear subsegmental atelectasis or scarring and mild septal thickening in the left hemithorax is decreased but not resolved. Trace left pleural effusion is decreased. Improved aeration of the left lung base with decrease in previous mild patchy groundglass opacities. No new consolidation. Interval removal of right PICC. Chest otherwise negative. Narrative 08/27/2024 10:25 AM TURNTABLE MAN EXAM: DX CHEST AP OR PA [...] removal of right PICC. Chest otherwise negative. Melinda Isaac APRN, C.N.P. IMG DIAGNOSTIC IM AGING PROCEDURES Final Result * (ABNORMAL) CBC with Differential, Blood (08/21/2024 8:46 AM TURNTABLE MAN) Only the most recent of8 resultswithin the time period is included. Hemoglobin 10.9(L) 11.6 - 15.0 g/dL 08/21/2024 8:55 AM TURNTABLE MAN FB60 Hematocrit 35.4(L) 35.5 - 44.9 % 08/21/2024 8:55 AM TURNTABLE MAN FB60 Erythrocytes 4.28 3.92 - 5.13 x10(12)/L 08/21/2024 8:55 AM TURNTABLE MAN FB60 MCV 82.7 78.2 - 97.9 fL 08/21/2024 8:55 AM TURNTABLE MAN FB60 RBC Distrib Width 16.6(H) 12.2 - 16.1 % 08/21/2024 8:55 AM TURNTABLE MAN FB60 Platelet Count 634(H) 157 - 371 x10(9)/L 08/21/2024 8:55 AM TURNTABLE MAN FB60 Leukocytes 10.5(H) 3.4 - 9.6 x10(9)/L 08/21/2024 8:55 AM TURNTABLE MAN FB60 Neutrophils 8.01(H) 1.56 - 6.45 x10(9)/L 08/21/2024 8:55 AM TURNTABLE MAN FB60 Lymphocytes 1.40 0.95 - 3.07 x10(9)/L 08/21/2024 8:55 AM TURNTABLE MAN FB60 Monocytes 0.58 0.26 - 0.81 x10(9)/L 08/21/2024 8:55 AM TURNTABLE MAN FB60 Eosinophils 0.47 0.03 - 0.48 x10(9)/L 08/21/2024 8:55 AM TURNTABLE MAN FB60 Basophils <0.04 0.01 - 0.08 x10(9)/L 08/21/2024 8:55 AM TURNTABLE MAN FB60 Blood (Blood, Venous) 08/21/2024 8:46 AM TURNTABLE MAN 08/21/2024 8:47 AM TURNTABLE MAN us Prudence TO, P.A.-C. LAB BLOOD ADD-ON Final Result Performing Organization Address City/[facility] Co de Phone Number [facility] [address] [place] [address], [facility] FB60 [facility] [place] [address] [place] [address] * (ABNORMAL) Bacterial Culture, Aerobic + Susceptibility (08/12/2024 8:35 AM TURNTABLE MAN) Only the most recent of3 resultswithin the time period is included. Bacterial Culture, Aerobic + Susc YEAST 2+ (A) 08/14/2024 11:12 AM TURNTABLE MAN MKTO Comment:No further identific ation Skin (Chest, Left) 08/12/2024 8:35 AM TURNTABLE MAN 08/12/2024 6:46 PM TURNTABLE MAN Comment:Specimen Source Site : Skin us Prudence TO, P.A.-C. LAB MICROBIOLOGY - GENERAL ORDERABLES Final Result [facility] [address] [place] [address], [place] MKTO [address] [address] * Chest-Family Medicine Image Exam (08/12/2024 8:19 AM TURNTABLE MAN) 08/12/2024 8:17 AM TURNTABLE MAN Narrative IIMS - 08/12/2024 8:19 AM TURNTABLE MAN This order has been created and auto-finalized to support the import of images acquired without order. The clinical documentation to support these images can be found on the encounter that produced images. us Provider Not In System IMG NON RAD IMAGING PROCE DURES Final Result Performing Organization Address City/[facility] Co de Phone Number IIUT NA * ALT (Alanine Aminotransferase) (08/04/2024 9:11 AM TURNTABLE MAN) Only the most recent of3 resultswithin the time period is included. Alanine Aminotransferase (ALT), P 10 7 - 45 U/L 08/04/2024 9:42 AM TURNTABLE MAN RDWG Blood (Blood, PICC) 08/04/2024 9:11 AM TURNTABLE MAN 08/04/2024 9:21 AM TURNTABLE MAN us Melinda TO, P.A.-C., M.S. LAB BLOOD ADD-ON Final Result Performing Organization Address [facility] Co de Phone Number [facility] [address] [place] [address], [facility] RDWG [facility] [place] [address] [facility] [place] [address] * (ABNORMAL) Alkaline Phosphatase (08/04/2024 9:11 AM TURNTABLE MAN) Only the most recent of3 resultswithin the time period is included. Alkaline Phosphatase, P 106(H) 35 - 104 U/L 08/04/2024 9:42 AM TURNTABLE MAN RDWG Blood (Blood, PICC) 08/04/2024 9:11 AM TURNTABLE MAN 08/04/2024 9:21 AM TURNTABLE MAN Melinda TO, P.A.-C., M.S. LAB BLOOD ADD-ON Final Result [facility] [address] [place] [address], [facility] RDWG [facility] [place] [address] * (ABNORMAL) Creatinine with Estimated GFR (08/04/2024 9:11 AM TURNTABLE MAN) Only the most recent of3 resultswithin the time period is included. Creatinine 0.44(L) 0.59 - 1.04 mg/dL 08/04/2024 9:42 AM TURNTABLE MAN RDWG Estimated GFR (eGFR) >90 >=60 mL/min/BSA 08/04/2024 9:42 AM TURNTABLE MAN RDWG Comment: Estimated GFR calculated using the 2020 CKD_EPI creatinine equation. Blood (Blood, PICC) 08/04/2024 9:11 AM TURNTABLE MAN 08/04/2024 9:21 AM TURNTABLE MAN us Melinda Cohen [facility] CORPORATIONNikolai, P.Paul.Susanna., M.S. LAB BLOOD ADD-ON Final Result [facility] [address] [place] [address], [facility] RDWG [facility] [place] [address] * CT Chest Angiogram and Pulmonary Arteries with IV Contrast (07/26/2024 10:37 AM TURNTABLE MAN) Anatomical Region Laterality Modality Chest, Cardiovascular RST LO S, Thoracic ARZ LOS, Thoracic FLA LOS N/A Computed Tomography 07/26/2024 10:4 2 AM TURNTABLE MAN Impressions 07/26/2024 10:46 AM TURNTABLE MAN 1. Negative for acute pulmonary embolism. 2. Similar findings of multifocal pneumonia. 3. Stable small left pleural effusion. Narrative 07/26/2024 10:46 AM TURNTABLE MAN EXAM: CT CHEST ANGIOGRAM AND PULMONARY [...] pleural effusion. us Dilcia Valero APRN, C.N.P. IM CT PROCEDURE S Final Result * (ABNORMAL) Sedimentation Rate (07/26/2024 9:44 AM TURNTABLE MAN) Sedimentation Rate, B 102(H) 0 - 29 mm/1 h 07/26/2024 1:33 PM TURNTABLE MAN RDWG Blood (Blood, Venous) 07/26/2024 9:44 AM TURNTABLE MAN 07/26/2024 12:52 PM TURNTABLE MAN us Dilcia Valero APRN, C.N.P. LAB BLOOD ADD-ON Final Result [facility] [address] [place] [address], [place] RDWG [facility] [place] [address] [facility] [place] [address] * (ABNORMAL) CRP (C-Reactive Protein) (07/26/2024 9:44 AM TURNTABLE MAN) C-Reactive Protein (CRP), P 43.3(H) <5.0 mg/L 07/26/2024 10:15 AM TURNTABLE MAN CNFL Blood (Blood, Venous) 07/26/2024 9:44 AM TURNTABLE MAN 07/26/2024 9:48 AM TURNTABLE MAN us Dilcia Valero APRN, C.N.P. LAB BLOOD ADD-ON Final Result Performing Organization Address City/[facility]/ZIP Co de Phone Number [facility] [address] [place] [address], [facility] CNFL [facility] in [address] [address] * Basic Metabolic Panel (07/26/2024 9:44 AM TURNTABLE MAN) Only the most recent of5 resultswithin the time period is included. Potassium, P 3.9 3.6 - 5.2 mmol/L 07/26/2024 10:15 AM TURNTABLE MAN CNFL Sodium, P 141 135 - 145 mmol/L 07/26/2024 10:15 AM TURNTABLE MAN CNFL Chloride, P 105 98 - 107 mmol/L 07/26/2024 10:15 AM TURNTABLE MAN CNFL Bicarbonate, P 25 22 - 29 mmol/L 07/26/2024 10:15 AM TURNTABLE MAN CNFL Anion Gap, P 11 7 - 15 07/26/2024 10:15 AM TURNTABLE MAN CNFL BUN (Blood Urea Nitrogen), P 10 6 - 21 mg/dL 07/26/2024 10:15 AM TURNTABLE MAN CNFL Creatinine 0.62 0.59 - 1.04 mg/dL 07/26/2024 10:15 AM TURNTABLE MAN CNFL Estimated GFR (eGFR) >90 >=60 mL/min/BSA 07/26/2024 10:15 AM TURNTABLE MAN CNFL Comment: Estimated GFR calculated using the 2020 CKD_EPI creatinine equation. Calcium, Total, P 8.8 8.6 - 10.0 mg/dL 07/26/2024 10:15 AM TURNTABLE MAN CNFL Glucose, P 122 70 - 140 mg/dL 07/26/2024 10:15 AM TURNTABLE MAN CNFL Blood (Blood, Venous) 07/26/2024 9:44 AM TURNTABLE MAN 07/26/2024 9:48 AM TURNTABLE MAN us Dilcia Valero APRN, C.N.P. LAB BLOOD ADD-ON Final Result [facility] [address] [place] [address], [facility] CNFL [facility] in [address] [address] * CT Chest with IV Contrast (07/24/2024 10:24 AM TURNTABLE MAN) Anatomical Region Laterality Modality Chest, Thoracic RST LOS, Tho racic ARZ LOS, Thoracic ARZ LOS, Thoracic FLA LOS N/A Computed Tomography 07/24/2024 10:2 2 AM TURNTABLE MAN Impressions 07/24/2024 11:16 AM TURNTABLE MAN Pneumonia and small left pleural effusion. Narrative 07/24/2024 11:16 AM TURNTABLE MAN EXAM: CT CHEST WITH IV CONTRAST [...] P.A.-C. IMG CT PROCEDURES Final Result * (ABNORMAL) CBC without Differential (07/19/2024 6:02 AM TURNTABLE MAN) Only the most recent of2 resultswithin the time period is included. Hemoglobin 7.6(L) 11.6 - 15.0 g/dL 07/19/2024 6:38 AM TURNTABLE MAN DTL Hematocrit 24.1(L) 35.5 - 44.9 % 07/19/2024 6:38 AM TURNTABLE MAN DTL Erythrocytes 2.67(L) 3.92 - 5.13 x10(12)/L 07/19/2024 6:38 AM TURNTABLE MAN DTL MCV 90.3 78.2 - 97.9 fL 07/19/2024 6:38 AM TURNTABLE MAN DTL RBC Distrib Width 15.6 12.2 - 16.1 % 07/19/2024 6:38 AM TURNTABLE MAN DTL Platelet Count 478(H) 157 - 371 x10(9)/L 07/19/2024 6:38 AM TURNTABLE MAN DTL Leukocytes 9.8(H) 3.4 - 9.6 x10(9)/L 07/19/2024 6:38 AM TURNTABLE MAN DTL Blood (Blood, Venous) 07/19/2024 6:02 AM TURNTABLE MAN 07/19/2024 6:26 AM TURNTABLE MAN us Lopez Garvey M.D. LAB BLOOD ADD-ON Final Resul t [facility] [address] [place] [address], [place] [facility] [address] [place] [address] * Place peripherally inserted central catheter (PICC) (07/18/2024 8:43 PM TURNTABLE MAN) Narrative MMODAL - 07/18/2024 8:43 PM TURNTABLE MAN Rayo Finch R.N. 07/18/2024 9:11 PM [...] with ultrasound and measured to ensure appropriate [id number] ratio of 45% or less: Right Basilic [...] to release the adhesive from the skin. [email or web address] Eveline Mariscal P.A.-C. PROCEDURE/MINOR SURGICAL ORDERABLES Final Result MMODAL NA * HIV-1/-2 Ag and Ab Screen, Plasma (07/17/2024 5:05 PM TURNTABLE MAN) Pathologist [facility] HIV-1/-2 Ag and Ab Screen, P Negative Negative 07/17/2024 8:57 PM TURNTABLE MAN [facility] Comment: Negative result does not rule out HIV infection. If exposure to HIV infection occurred <14 days ago, contact the laboratory to request addition of HIV-1/HIV-2 RNA detection, Plasma (HIP12). Blood (Blood, Venous) 07/17/2024 5:05 PM TURNTABLE MAN 07/17/2024 7:55 PM TURNTABLE MAN Arslan Pennington APRN, M.S. LAB MICROBIOLOGY - BLOOD ORDERABLES Final Result Performing Organization Address [facility] Co de Phone Number [facility] [address] [place] [address] [facility] [place] [address] [place] [address] * (ABNORMAL) Vancomycin, Trough (07/16/2024 10:31 AM TURNTABLE MAN) [facility] Vancomycin, Trough, S 8.9(L) 10.0 - 20.0 mcg/mL 07/16/2024 12:10 PM TURNTABLE MAN DTL Blood (Blood, Venous) 07/16/2024 10:31 AM TURNTABLE MAN 07/16/2024 10:52 AM TURNTABLE MAN Patrick Mtz M.D., Ph.D. LAB BLOOD NON ADD-ON Fi nal Result Performing Organization Address [facility] Co de Phone Number [facility] [address] [place] [address], [facility] [address] [place] [address] * DX Chest 1 View (07/15/2024 4:51 PM TURNTABLE MAN) Anatomical Region Laterality Modality Chest, Thoracic RST LOS, Tho racic ARZ LOS, Thoracic FLA LOS N/A Digital Radiography Impressions 07/15/2024 4:59 PM TURNTABLE MAN Negative for postoperative purposes. Left thoracotomy with 2 left chest tubes. Small left-sided pneumothorax. New left perihilar consolidation/atelectasis since 07/13/2024. Increased bibasilar consolidation/atelectasis. Very low lung volumes accentuate heart size and bronchovascular markings. Narrative 07/15/2024 4:59 PM TURNTABLE MAN EXAM: DX CHEST 1 VIEW Procedure Note Jah Elam M.D. - 07/15/2024 EXAM: DX CHEST 1 VIEW IMPRESSION: Negative for postoperative purposes. Left thoracotomy with 2 left chesttubes. Small left-sided pneumothorax. New left perihilarconsolidation/atelectasis since 07/13/2024. Increased bibasilarconsolidation/atelectasis. Very low lung volumes accentuate heart size and bronchovascular markings. us Patrick Mtz M.D., Ph.D. [facility] DIAGNOSTIC IMAGING PROCEDURES Final Result * Actinomyces Culture (07/15/2024 4:00 PM TURNTABLE MAN) Actinomyces Culture No growth after 14 days of incubation . 07/29/2024 7:33 AM TURNTABLE MAN DTL Tissue (Pleura, Left) 07/15/2024 4:00 PM TURNTABLE MAN us Patrick Mtz M.D., Ph.D. LAB MICROBIOLOGY - GENE RAL ORDERABLES Final Result Performing Organization Address City/[facility]/ZIP Co de Phone Number [facility] [address] [place] [address], [facility] [address] [place] [address] * Mycobacterial Culture (07/15/2024 4:00 PM TURNTABLE MAN) Only the most recent of2 resultswithin the time period is included. Mycobacterial Culture No growth after 42 days of incubation . 08/27/2024 1:02 AM TURNTABLE MAN DTL Tissue (Pleura, Left) 07/15/2024 4:00 PM TURNTABLE MAN us Patrick Mtz M.D., Ph.D. LAB MICROBIOLOGY - GENE RAL ORDERABLES Final Result Performing Organization Address City/[facility]/ZIP Co de Phone Number [facility] [address] [place] [address], [facility] [address] [facility] [address] [place] [address] * Fungal Smear (07/15/2024 4:00 PM TURNTABLE MAN) Only the most recent of2 resultswithin the time period is included. Fungal Smear Negative. 07/16/2024 8:52 AM TURNTABLE MAN DTL Tissue (Pleura, Left) 07/15/2024 4:00 PM TURNTABLE MAN us Patrick Mtz M.D., Ph.D. LAB MICROBIOLOGY - GENE RAL ORDERABLES Final Result Performing Organization Address City/[facility]/ZIP Co de Phone Number [facility] [address] [place] [address] * Legionella Culture (07/15/2024 4:00 PM TURNTABLE MAN) Legionella Culture No growth of Legionella species after 7 days of incubation 07/22/2024 8:16 AM TURNTABLE MAN DTL Tissue (Pleura, Left) 07/15/2024 4:00 PM TURNTABLE MAN us Patrick Mtz M.D., Ph.D. LAB MICROBIOLOGY - GENE RAL ORDERABLES Final Result Performing Organization Address City/[facility]/ZIP Co de Phone Number [facility] [address] [place] [address], [facility] [address] [place] [phone] * Acid Fast Smear for Mycobacterium (07/15/2024 4:00 PM TURNTABLE MAN) Only the most recent of2 resultswithin the time period is included. Acid Fast Smear For Mycobacterium Negative. 07/15/2024 10:18 PM TURNTABLE MAN DTL Tissue (Pleura, Left) 07/15/2024 4:00 PM TURNTABLE MAN us Patrick Mtz M.D., Ph.D. LAB MICROBIOLOGY - GENE RAL ORDERABLES Final Result Performing Organization Address City/[facility]/ZIP Co de Phone Number [facility] [address] [place] [phone], [facility] [address] [place] [address] * Gram Stain (07/15/2024 4:00 PM TURNTABLE MAN) Only the most recent of2 resultswithin the time period is included. Gram Stain No organisms seen. White blood cells, Many 07/15/2024 10:18 PM TURNTABLE MAN DTL Tissue (Pleura, Left) 07/15/2024 4:00 PM TURNTABLE MAN us Patrick Mtz M.D., Ph.D. LAB MICROBIOLOGY - GENE RAL ORDERABLES Final Result Performing Organization Address City/[facility]/[place] [address] * Fungal Culture, Routine (07/15/2024 4:00 PM TURNTABLE MAN) Only the most recent of2 resultswithin the time period is included. Fungal Culture, Routine No growth after 24 days of incubation. 08/09/2024 1:02 AM TURNTABLE MAN DTL Tissue (Pleura, Left) 07/15/2024 4:00 PM TURNTABLE MAN Result Emma Mtz M.D., Ph.D. LAB MICROBIOLOGY - GENE RAL ORDERABLES Final Result Performing Organization Address City/[facility]/ZIP Co de Phone Number [facility] [address] [place] [address] * Bacterial Culture, Anaerobic + Susceptibility (07/15/2024 4:00 PM TURNTABLE MAN) Bacterial Culture, Anaerobic + Susc No growth after 14 days of incubation. 07/29/2024 7:33 AM TURNTABLE MAN DTL Tissue (Pleura, Left) 07/15/2024 4:00 PM TURNTABLE MAN us Patrick Wigle M.D., Ph.D. LAB MICROBIOLOGY - GENE RAL ORDERABLES Final Result [facility] [address] [place] [address], [facility] [address] [facility] [address] [place] [address] * LA ARTL CATH/CNULA MONITOR PERC, LDA ANE ARTERIAL LINE INSERTION (07/15/2024 1:31 PM TURNTABLE MAN) Narrative Sandra May APRN, CRNA - 07/15/2024 1:31 PM TURNTABLE MAN Sandra May APRN, CRNA 07/15/2024 5:03 [...] LDA ANE ENDOTRACHEAL AIRWAY (07/15/2024 1:17 PM TURNTABLE MAN) Narrative Aroldo Johnson R.N. - 07/15/2024 1:17 PM TURNTABLE MAN Aroldo Johnson R.N. 07/15/2024 2:03 PM [...] ETT location: oral VL device: glide scope [place] scope blade size: 3 Tube size: 35 [...] DLETT would not advance through vocal folds. [place] used with single ETT then exchanged over [...] (with Reflex Antibody ID) (07/15/2024 7:50 AM TURNTABLE MAN) ABORh AB Pos Not applicable 07/15/2024 8:36 AM TURNTABLE MAN STRM Antibody Screen Negative Negative 07/15/2024 8:51 AM TURNTABLE MAN STRM Type & Screen Expiration 07/18/2024 23:59 07/15/2024 8:36 AM TURNTABLE MAN STRM Testing Location [place] DEFAULT 07/15/2024 8:10 AM TURNTABLE MAN STRM Blood (Blood, Venous) 07/15/2024 7:50 AM TURNTABLE MAN 07/15/2024 8:10 AM TURNTABLE MAN Jamie Kumar M.D. LAB BLOOD BANK TEST ORDERABLES F inal Result [facility] [address] STRM [facility] [address] [place] [address] * Staph aureus / MRSA, Nasal, PCR (07/14/2024 10:39 AM TURNTABLE MAN) Staphylococcus aureus, PCR Negative Negative 07/14/2024 12:55 PM TURNTABLE MAN DTL MRSA, PCR Negative Negative 07/14/2024 12:55 PM TURNTABLE MAN DTL Swab (Nares) 07/14/2024 10:3 9 AM TURNTABLE MAN 07/14/2024 11:06 AM TURNTABLE MAN us Patrick Mtz M.D., Ph.D. LAB MICROBIOLOGY - GENE RAL ORDERABLES Final Result [facility] [address] [place] [address], [facility] [place] [facility] [address] [place] [address] * DX Chest Portable 1 View (07/13/2024 9:07 PM TURNTABLE MAN) Anatomical Region Laterality Modality Chest, Thoracic RST LOS, Tho racic ARZ LOS, Thoracic FLA LOS N/A Digital Radiography Impressions 07/14/2024 7:27 AM TURNTABLE MAN No significant change since earlier today. Bibasilar atelectasis. Small left loculated pleural effusion. Hazy opacification in the bilateral lungs, left greater than right. No discernible pneumothorax. Mildly enlarged cardiomediastinal silhouette. Narrative 07/14/2024 7:27 AM TURNTABLE MAN EXAM: DX CHEST PORTABLE 1 VIEW [...] chest 2V-Outside Chest Xray (07/13/2024 8:40 AM TURNTABLE MAN) Only the most recent of3 resultswithin the time period is included. Narrative IIUT - 07/13/2024 2:43 PM TURNTABLE MAN This order has been created and auto-finalized to support the import of outside images. If available, original interpretation can be found on the Media Tab in Chart Review, in Document Viewer, as an image in QREADS or as an Addendum. If a re-interpretation or overread is required please follow defined workflow. us Provider Not In System IM DIAGNOSTIC IMAGING LA OCEDURES Final Result Performing Organization Address [facility] de Phone Number [facility] NA * CT Angio Chest PE Protocol-Outside CT Body (07/13/2024 12:05 AM TURNTABLE MAN) Only the most recent of2 resultswithin the time period is included. Narrative IIUT - 07/13/2024 2:48 PM TURNTABLE MAN This order has been created and auto-finalized to support the import of outside images. If available, original interpretation can be found on the Media Tab in Chart Review, in Document Viewer, as an image in QREADS or as an Addendum. If a re-interpretation or overread is required please follow defined workflow. us Provider Not In System [facility] CT PROCEDURES Final R esult Performing Organization Address [facility] Co de Phone Number [facility]S NA from Last 3 Months Insurance [facility] [address] Advance Directives For more information, please contact: [phone] * Full Code (Latest Code Status on File) Date Activated Date Inactivated Comments 07/15/2024 6:49 PM 07/20/2024 12:21 PM Question Answer Comments Full Code: Discussed * Full Code Date Activated Date Inactivated Comments 07/13/2024 7:54 PM 07/15/2024 6:49 PM Question Answer Comments Full Code: Not Discussed Due to: Patient not available Care Teams Assistant Federal Public Defender Relationship Specialty Start Date End Date Prudence Mena MPAS, P.A.-C. [address] [place] [address] KATHYОЛЕГCANDACEDESHAUN [phone] PCP - General Internal Medicine 02/08/24
--- OUTSIDE RECORDS SUMMARY | 2024-08-28 18:17 | XMS_ITS | Encounter Summary ---
Author Organization [facility] Address [address] [place] [address] Care Team Providers Care Lining Presser Name Role Phone Prudence Mena P.A.-CDmitry Primary Care Pro vider Encounter Details Date Type Department Care Team (Late st Contact Info) Description 07/22/2024 Results Follow-Up Department of Community Internal Medicine in [place], [place] [address] [place] [address] Prudence Mena MPAS P.A.-C. [address] [place] [phone] CBC with Differential, Blood, Basic Metabolic Panel Social History Tobacco Use Types Packs/Day Years Used Date Smoking Tobacco: Former Cigarettes 1.5 0.2 S tarted: 06/21/2024 Passive Smoke Exposure: Past Smokeless Tobacco: Never Alcohol Use Standard Drinks/Week Comments Yes 0 (1 standard drink = 0.6 oz pur e alcohol) socially [facility] Utilities Answer Date Recorded In the past 12 months has e [employer], gas, oil, or water [employer] threatened to shut off services in [...] How often do you attend congregational or orthodoxy serv ices? Never 07/27/2022 Do [...] Answer Date Recorded PHQ-2 Score 6 07/10/2024 [facility] of Occupat ional Health - Occupational [...] st Contact Info) Description 08/30/2024 9:00 AM WATER CHEMIST Office Visit Department of Community Internal Medicine in [place], [place] [address] [place] [address] Prudence Mena MPAS, P.A.-C. [address] [place] [phone] documented as of this encounter Visit Diagnoses Not on filedocumented in this encounter Additional Health Concerns Assessment Noted Time PHQ-9 Depression Total Score: 22 025 7:19 PM WATER CHEMIST documented as of this encounter Care Teams Lining Presser Relationship Specialty Start Date End Date Prudence Mena MPAS, P.A.-C. [address] [place] [address] DESHAUN CONNELLY [phone] PCP - General Internal Medicine 02/08/24 documented as of this encounter
--- OUTSIDE RECORDS SUMMARY | 2024-08-28 18:17 | XMS_ITS | Encounter Summary ---
Author Organization [facility] Address [address] [place] [address] Care Team Providers Care Computer Application Developer Name Role Phone Trina Prudence TO P.A.-C. Primary Care Pro vider Encounter Details Date Type Department Care Team (Latest Contact Info) Description 07/24/2024 9:03 AM PORCELAIN ENAMEL LABORER - 07/24/2024 11:59 PM [facility] Hospital Encounter Department of Laboratory Medicine in [address] [phone] Melinda Cohen MPAS P.A.-Cherelle., M.S. [address] [place] [phone] Fdc Antibiotic Treatment Discharge Disposition: Home or Self Care Social History Tobacco Use Types Packs/Day Years Used Date Smoking Tobacco: Former Cigarettes 1.5 0.2 S tarted: 06/21/2024 Passive Smoke Exposure: Past Smokeless Tobacco: Never Alcohol Use Standard Drinks/Week Comments Yes 0 (1 standard drink = 0.6 oz pur e alcohol) socially [facility] Utilities Answer Date Recorded In the past 12 months has [employer], gas, oil, or water [employer] threatened to shut off services in your [...] How often do you attend evangelical or muslim serv ices? Never 07/27/2022 Do you belong [...] Answer Date Recorded PHQ-2 Score 6 07/10/2024 [facility] [place] of Occupat ional Health - Occupational Stress [...] a venous catheter daily for 17 days. [place] ITC 07/19/2024 methocarbamoL (Robaxin) 500 mg tablet Take 1 tablet (500 mg total) by mouth 3 (three) times a day as needed for muscle spasms. 45 tablet 07/20/2024 10:13 AM PORCELAIN ENAMEL LABORER 07/19/2024 5 metroNIDAZOLE (FlagyL) 500 mg tabletIndication s:Empyema Take 1 tablet (500 mg total) by mouth 3 (three) times a day for 17 days Indications: Empyema. 51 tablet 07/20/2024 10:13 AM PORCELAIN ENAMEL LABORER 07/19/2024 5 nitrofurantoin (MACRODANTIN) 50 mg capsule [...] Pain Exception. 28 tablet 07/20/2024 10:13 AM PORCELAIN ENAMEL LABORER 07/19/2024 5 sennosides (senna) 8.6 mg tablet Take 2 tablets (17.2 mg total) by mouth daily. 07/20/2024 5 documented as of this encounter Plan of Treatment Upcoming Encounters Date Type Department Care Team (Late st Contact Info) Description 08/30/2024 9:00 AM PORCELAIN ENAMEL LABORER Office Visit Department of Community Internal Medicine in [place], [place] [address] [place] [phone] Prudence Mena MPAS, P.A.-C. [address] [place] [address] documented as of this encounter Procedures Procedure Name Priority Date/Time Associated Diagnosis Comments CBC WITH DIFFERENTIAL, B Routine 025 10:02 AM PORCELAIN ENAMEL LABORER Fdc Antibiotic Treatment ALANINE AMINOTRANSFERASE (ALT), S/P Routine 07/24/2024 10:02 AM PORCELAIN ENAMEL LABORER Fdc Antibiotic Treatment ALKALINE PHOSPHATASE, S/P Routine 07/24/2024 10:02 AM PORCELAIN ENAMEL LABORER Fdc Antibiotic Treatment CREATININE WITH EGFR, S/P Routine 07/24/2024 10:02 AM PORCELAIN ENAMEL LABORER Fdc Antibiotic Treatment documented in this encounter Results * Alkaline Phosphatase (07/24/2024 10:02 AM PORCELAIN ENAMEL LABORER) Alkaline Phosphatase, P 86 35 - 104 U/L 07/24/2024 10:24 AM PORCELAIN ENAMEL LABORER CNFL Blood (Blood, PICC) 07/24/2024 10:02 AM PORCELAIN ENAMEL LABORER 07/24/2024 10:07 AM PORCELAIN ENAMEL LABORER us Marimar Gutierrez.Paul.-Cherelle., M.S. LAB [place] [address], [place] [address] * ALT (Alanine Aminotransferase) (07/24/2024 10:02 AM PORCELAIN ENAMEL LABORER) Alanine Aminotransferase (ALT), P 21 7 - 45 U/L 07/24/2024 10:24 AM PORCELAIN ENAMEL LABORER CNFL Blood (Blood, PICC) 07/24/2024 10:02 AM PORCELAIN ENAMEL LABORER 07/24/2024 10:07 AM PORCELAIN ENAMEL LABORER us Melinda TO, P.A.-C., M.S. LAB [place] [address], [place] [address] * Creatinine with Estimated GFR (07/24/2024 10:02 AM PORCELAIN ENAMEL LABORER) Creatinine 0.60 0.59 - 1.04 mg/dL 07/24/2024 10:24 AM PORCELAIN ENAMEL LABORER CNFL Estimated GFR (eGFR) >90 >=60 mL/min/BSA 07/24/2024 10:24 AM PORCELAIN ENAMEL LABORER [place] Comment: Estimated GFR calculated using the 2020 CKD_EPI creatinine equation. Blood (Blood, PICC) 07/24/2024 10:02 AM PORCELAIN ENAMEL LABORER 07/24/2024 10:07 AM PORCELAIN ENAMEL LABORER us Melinda TO, P.A.-C., M.S. LAB BLOOD ADD-ON Final Result [facility] [address] [place] [address], [facility] CNFL [facility] [place] [address] * (ABNORMAL) CBC with Differential, Blood (07/24/2024 10:02 AM PORCELAIN ENAMEL LABORER) Hemoglobin 9.4(L) 11.6 - 15.0 g/dL 07/24/2024 10:11 AM PORCELAIN ENAMEL LABORER CNFL Hematocrit 30.2(L) 35.5 - 44.9 % 07/24/2024 10:11 AM PORCELAIN ENAMEL LABORER CNFL Erythrocytes 3.40(L) 3.92 - 5.13 x10(12)/L 07/24/2024 10:11 AM PORCELAIN ENAMEL LABORER CNFL MCV 88.8 78.2 - 97.9 fL 07/24/2024 10:11 AM PORCELAIN ENAMEL LABORER CNFL RBC Distrib Width 15.5 12.2 - 16.1 % 07/24/2024 10:11 AM PORCELAIN ENAMEL LABORER CNFL Platelet Count 641(H) 157 - 371 x10(9)/L 07/24/2024 10:11 AM PORCELAIN ENAMEL LABORER CNFL Leukocytes 12.0(H) 3.4 - 9.6 x10(9)/L 07/24/2024 10:11 AM PORCELAIN ENAMEL LABORER CNFL Neutrophils 8.69(H) 1.56 - 6.45 x10(9)/L 07/24/2024 10:11 AM PORCELAIN ENAMEL LABORER CNFL Lymphocytes 1.73 0.95 - 3.07 x10(9)/L 07/24/2024 10:11 AM PORCELAIN ENAMEL LABORER CNFL Monocytes 0.99(H) 0.26 - 0.81 x10(9)/L 07/24/2024 10:11 AM PORCELAIN ENAMEL LABORER CNFL Eosinophils 0.55(H) 0.03 - 0.48 x10(9)/L 07/24/2024 10:11 AM PORCELAIN ENAMEL LABORER CNFL Basophils 0.06 0.01 - 0.08 x10(9)/L 07/24/2024 10:11 AM PORCELAIN ENAMEL LABORER CNFL Blood (Blood, PICC) 07/24/2024 10:02 AM PORCELAIN ENAMEL LABORER 07/24/2024 10:07 AM PORCELAIN ENAMEL LABORER us Melinda TO, P.A.-C., M.S. LAB BLOOD ADD-ON Final Result Performing Organization Address [facility] Co de Phone Number [facility] [address] [place] [address], [facility] CNFL [facility] in [address] [address] documented in this encounter Visit Diagnoses Diagnosis Fdc Antibiotic Treatment documented in this encounter Additional Health Concerns Assessment Noted Time PHQ-9 Depression Total Score: 025 7:19 PM PORCELAIN ENAMEL LABORER documented as of this encounter Care Teams Computer Application Developer Relationship Specialty Start Date End Date Prudence Mena MPAS, P.A.-C. [address] [place] [address] [place] [phone] PCP - General Internal Medicine 02/08/24 documented as of this encounter
--- OUTSIDE RECORDS SUMMARY | 2024-08-28 18:17 | XMS_ITS | Encounter Summary ---
Author Organization [facility] Address [address] [place] [address] Care Team Providers Care Premix Operator Concentrate Name Role Phone Prudence Mena P.A.-C. Primary Care Pro vider Reason for Visit * Reason Comments Outpatient Infusion Encounter Details Date Type Department Care Team (Late st Contact Info) Description 07/23/2024 9:00 AM COMMUNITY ORGANIZATION AIDE Infusion Department of Infusion Therapy in [address] [phone] Melinda Isaac, FRED, C.N.P. [address] [place] [phone] Empyema Pleural (HCC) (Primary Dx) Social History Tobacco Use Types Packs/Day Years Used Date Smoking Tobacco: Former Cigarettes 1.5 0.2 S tarted: 06/21/2024 Passive Smoke Exposure: Past Smokeless Tobacco: Never Alcohol Use Standard Drinks/Week Comments Yes 0 (1 standard drink = 0.6 oz pur e alcohol) socially [facility] Utilities Answer Date Recorded In the [...] How often do you attend mormonism or latter day serv ices? Never 07/27/2022 [...] Recorded PHQ-2 Score 6 07/10/2024 [facility] [place] of Occupat ional Health - Occupational Stress [...] Comments Blood Pressure 120/79 07/23/2024 9:10 AM COMMUNITY ORGANIZATION AIDE Pulse 93 07/23/2024 9:10 AM COMMUNITY ORGANIZATION AIDE Temperature 36.6 C (97.9 F) 07/23/2024 9:10 AM COMMUNITY ORGANIZATION AIDE Respiratory Rate 18 07/23/2024 9:10 AM COMMUNITY ORGANIZATION AIDE Oxygen Saturation 100% 07/23/2024 9:10 AM COMMUNITY ORGANIZATION AIDE Inhaled Oxygen Concentration - - Weight - - Height - - Body Mass Index - - documented in this encounter Plan of Treatment Upcoming Encounters Date Type Department Care Team (Late st Contact Info) Description 08/30/2024 9:00 AM COMMUNITY ORGANIZATION AIDE Office Visit Department of Community Internal Medicine in [place], [place] [address] [place] [address] Prudence Mena MPAS, P.A.-C. [address] [place] [address] documented as of this encounter Visit Diagnoses [...] infection, community acquired Given 07/23/2024 9:15 AM COMMUNITY ORGANIZATION AIDE 2 g sodium chloride 0.9 % injection 10-30 mL 10-30 mL, intravenous, As needed, line care, Starting on Mon07/23/24 at 0858, Prior to and following infusion, between multiple consecutive infusions.10 mL to each lumen.Indications:Empyema Pleural (HCC) Given 07/23/2024 9:19 AM COMMUNITY ORGANIZATION AIDE 10 mL Given 07/23/2024 9:15 AM COMMUNITY ORGANIZATION AIDE 10 mL documented in this encounter Additional Health Concerns Assessment Noted Time PHQ-9 Depression Total Score: 22 025 7:19 PM COMMUNITY ORGANIZATION AIDE documented as of this encounter Care Teams Premix Operator Concentrate Relationship Specialty Start Date End Date Prudence Mena MPAS, P.A.-C. [address] [place] [phone] PCP - General Internal Medicine 02/08/24 documented as of this encounter
--- OUTSIDE RECORDS SUMMARY | 2024-08-28 18:17 | XMS_ITS | Encounter Summary ---
Author Organization [facility] Address [address] [place] [address] Care Team Providers Care Tire Mold Engraver Name Role Phone Prudence Mena P.A.-C. Primary Care Pro vider Reason for Visit * Reason Onset Date Comments Post Hospital Follow-up 07/22/2024 Complete d - DC'd 07/20/24 @ 1016 Encounter Details Date Type Department Care Team (Latest Contact Info) Description 07/22/2024 Clinical Communication Department of Community Internal Medicine in [place] [address] [place] [address] Rosalva Galeano, R.N. Post Hospital Follow-up (Completed [...] Never 07/27/2022 How often do you attend moravian or scientologist serv ices? Never 07/27/2022 Do you belong to any clubs o r organizations such as moravian groups, unions, fraternal or athletic groups, or [...] Answer Date Recorded PHQ-2 Score 6 07/10/2024 [facility] - Occupational Stress Questionnaire [...] - Venus Khalil - 07/22/2024 1:16 PM FABRIC STRETCHER Patient has been scheduled for 07/29 IC STRETCHER * Telephone Encounter - Rosalva Galeano R.N. - 07/22/2024 12:56 PM FABRIC STRETCHER SUBJECTIVE REASON FOR CALL Post-Hospital follow-up phone [...] hospital discharge - she flew here from [place]. Patient identified if needing assistance, she could [...] additional f/u by RN. All questions answered. IC STRETCHER documented in this encounter Plan of Treatment Upcoming Encounters Date Type Department Care Team (Late st Contact Info) Description 08/30/2024 9:00 AM FABRIC STRETCHER Office Visit Department of Community Internal Medicine in [place], [place] [address] [place] [address] Prudence Mena MPAS, P.A.-C. 300 [place] [phone] documented as of this encounter Visit Diagnoses Not on filedocumented in this encounter Additional Health Concerns Assessment Noted Time PHQ-9 Depression Total Score: 22 025 7:19 PM FABRIC STRETCHER documented as of this encounter Care Teams Tire Mold Engraver Relationship Specialty Start Date End Date Prudence Mena MPAS, P.A.-C. [address] [place] [phone] PCP - General Internal Medicine 02/08/24 documented as of this encounter
--- OUTSIDE RECORDS SUMMARY | 2024-08-28 18:18 | XMS_ITS | Encounter Summary ---
Author Organization [facility] Address [address] [place] [id number] Care Team Providers Care Keyboard Instrument Tuner Name Role Phone Prudence Mena P.A.-C. Primary Care Pro vider Reason for Visit * Auth/Cert (Routine) Specialty Diagnoses / Procedures Referred By Contac t Referred To Contact Diagnoses Empyema Pleural (HCC) Pleuritic chest pain. empyema Procedures INPT Referral ID Status Reason Start Date Expiration Date Visits Re quested Visits Authorized [id number] 1 1 Encounter Details Date Type Department Care Team (Late st Contact Info) Description 07/15/2024 12:57 PM SHADE CLASSIFIER Anesthesia Event RST ROMB MAIN OR [address] [place] [phone] Lanre Hayward M.D. [address] [place] [phone] Aroldo Johnson, RDmitryNDmitry Anesthesia Record Procedure Summary [...] DLETT would not advance through vocal folds. [place] used with single ETT then exchanged over [...] oz pur e alcohol) socially [facility] Utilities Answer Date Recorded In the past 12 months has [email or web address], gas, oil, or water [employer] threatened to shut off services in your [...] How often do you attend evangelical or yazdanism serv ices? Never 07/27/2022 Do you belong [...] Answer Date Recorded PHQ-2 Score 6 07/10/2024 [facility] [place] Occupat ional [facility] - Occupational Stress [...] partner or ex-partner? No 07/15/2024 8:00 PM SHADE CLASSIFIER Helena Brady RDmitryN. Within the last year, have y ou been afraid of your partner or ex-partner? No 07/15/2024 8:00 PM SHADE CLASSIFIER Helena Brady R.N. Within the last year, have y ou been raped or forced to have any kind of sexual activity by your partner or ex-partner? No 07/15/2024 8:00 PM SHADE CLASSIFIER Helena Brady RDmitryN. Within the last year, have y ou been kicked, hit, slapped, or otherwise physically hurt by your partner or ex-partner? No 07/15/2024 8:00 PM SHADE CLASSIFIER Helena Brady R.N. documented as of this encounter OR Notes * Anesthesia Postprocedure Evaluation - Lanre Hayward M.D. - 07/15/2024 6:45 PM CST Patient: Melinda Kumar Procedure Summary Date: 07/15/24 Room / Location: [address] [facility] / [facility] [place], [place] Anesthesia Start: 1257 Anesthesia Stop: 1702 [...] post-op. Notable Events No notable events documented. E CLASSIFIER * Anesthesia Procedure Notes - Sandra May [...] turn: yes Notable Events - arterial: none E CLASSIFIER E CLASSIFIER * Anesthesia Procedure Notes - Aroldo Johnson R.N. - 07/15/2024 2:01 PM SHADE CLASSIFIER Associated Order(s): Airway Airway Date/Time: 07/15/2024 1:17 PM Performed by: Aroldo Johnson R.N. Authorized by: Jamie Kumar M.D. Patient location during procedure: OR / Procedure Area PROCEDURE DETAILS: Mask difficulty assessment: oral/nasal airway needed Final airway type: video laryngoscope Laryngeal Manipulation: no Final best view of glottic structures - Cormack/Lehane Score: grade 1 ETT location: oral VL device: glide scope [place] scope blade size: 3 Tube size: 35 [...] DLETT would not advance through vocal folds. [place] used with single ETT then exchanged over boujie for DLETT. Verified placement with fiberoptic PRE PROCEDURE DETAILS: Pre evaluation for airway management: procedure Urgency: elective Preop assessment of probable difficulty: questionable / suspicious difficult airway Preoxygenation: bag valve mask SEDATION / ANESTHESIA Anesthesia method: anesthesia POST PROCEDURE DETAILS: Procedure outcome: successful Notable Events: no complications E CLASSIFIER * Anesthesia Preprocedure Evaluation - Jamie Kumar M.D. - 07/15/2024 11:43 AM CST Preprocedure Anesthesia & H&P Assessment Procedure Summary Date/Time: 07/15/24 1310 Procedure: ROBOTIC THORACOSCOPY, DECORTICATION, PLEURODESIS, POSSIBLE THORACOTOMY, PROCEED INDICATED. (Left) Diagnosis: Empyema Pleural (HCC) [J86.9] Pre-op diagnosis: Left empyema. Location: [address] / [facility] in [place], [place] Providers: Patrick Mtz M.D., Ph.D. Pertinent [...] with patient /legal guardian or through an placement secretary. Risks/Benefits/Alternatives of Blood transfusion discussed with patient / legal guardian, includingan opportunity to ask questions and/or decline some or all transfusion therapies. The patient / legal guardian consented to the use of all blood products, as deemed medically necessary Approval to Proceed: approved for anesthesia E CLASSIFIER documented in this encounter Plan of Treatment Upcoming Encounters Date Type Department Care Team (Late st Contact Info) Description 08/30/2024 9:00 AM SHADE CLASSIFIER Office Visit [facility] in [place], [place] [address] [place] [phone] Prudence Mena MPAS, P.A.-C. [address] [place] [phone] documented as of this encounter Procedures Procedure Name Priority Date/Time Associated Diagnosis Comments LDA ANE ARTERIAL LINE INSERTION Routine 07/15/2024 1:31 PM SHADE CLASSIFIER NE ARTL CATH/CNULA MONITOR PERC Routine 07/15/2024 1:31 PM SHADE CLASSIFIER LDA ANE ENDOTRACHEAL AIRWAY Routine 07/15/2024 1:17 PM SHADE CLASSIFIER documented in this encounter Results * NE ARTL CATH/CNULA MONITOR PERC, LDA ANE ARTERIAL LINE INSERTION (07/15/2024 1:31 PM SHADE CLASSIFIER) Narrative Sandra May APRN, CRNA - 07/15/2024 1:31 PM SHADE CLASSIFIER Sandra May APRN, CRNA 07/15/2024 5:03 PM [...] LDA ANE ENDOTRACHEAL AIRWAY (07/15/2024 1:17 PM SHADE CLASSIFIER) Narrative Aroldo Johnson R.NDmitry - 07/15/2024 1:17 PM SHADE CLASSIFIER Aroldo Johnson R.N. 07/15/2024 2:03 PM Airway Date/Time: 07/15/2024 1:17 PM Performed by: Aroldo Johnson R.N. Authorized by: Jamie Kumar M.D. Patient location during procedure: OR / Procedure Area PROCEDURE DETAILS: Mask difficulty assessment: oral/nasal airway needed Final airway type: video laryngoscope Laryngeal Manipulation: no Final best view of glottic structures - Cormack/Lehane Score: grade 1 ETT location: oral VL device: glide scope [place] scope blade size: 3 Tube size: 35 [...] DLETT would not advance through vocal folds. [place] used with single ETT then exchanged over [...] 1456, Anesthesia Intra-op Given 07/15/2024 3:06 PM SHADE CLASSIFIER 250 mL Given 07/15/2024 2:56 PM SHADE CLASSIFIER 250 mL ceFAZolin injection (Ancef) intravenous, As needed, Starting on Mon07/15/24 at 1407, Anesthesia Intra-op Given 07/15/2024 2:07 PM SHADE CLASSIFIER 2 g dexAMETHasone injection (Decadron) intravenous, As needed, Starting on Mon07/15/24 at 1415, Anesthesia Intra-op Given 07/15/2024 2:15 PM SHADE CLASSIFIER 8 mg fentaNYL injection (Sublimaze) intravenous, As needed, Starting on Mon07/15/24 at 1307, Anesthesia Intra-op Given 07/15/2024 1:07 PM SHADE CLASSIFIER 100 mcg HYDROmorphone (PF) injection (Dilaudid) intravenous, As needed, Starting on Mon07/15/24 at 1420, Anesthesia Intra-op Given 07/15/2024 3:20 PM SHADE CLASSIFIER 0.2 mg Given 07/15/2024 2:33 PM SHADE CLASSIFIER 0.4 mg Given 07/15/2024 2:20 PM SHADE CLASSIFIER 0.4 mg ketamine injection (Ketalar) intravenous, As needed, Starting on Mon07/15/24 at 1418, Anesthesia Intra-op Given 07/15/2024 3:58 PM SHADE CLASSIFIER 10 mg Given 07/15/2024 3:06 PM SHADE CLASSIFIER 10 mg Given 07/15/2024 2:18 PM SHADE CLASSIFIER 10 mg Lactated Ringer's intravenous, Continuous Infusion: Per Instructions PRN, Starting on Mon07/15/24 at 1307, Anesthesia Intra-op New Bag 07/15/2024 1:07 PM SHADE CLASSIFIER lidocaine (PF) (cardiac) injection intravenous, As needed, Starting on Mon07/15/24 at 1307, Anesthesia Intra-op Given 07/15/2024 1:07 PM SHADE CLASSIFIER 80 mg ondansetron (PF) injection (Zofran) intravenous, As needed, Starting on Mon07/15/24 at 1606, Anesthesia Intra-op Given 07/15/2024 4:06 PM SHADE CLASSIFIER 4 mg phenylephrine injection intravenous, As needed, Starting on Mon07/15/24 at 1618, Anesthesia Intra-op Given 07/15/2024 4:18 PM SHADE CLASSIFIER 100 mcg piperacillin-tazobactam in dextrose (iso osm) IVPB 4.5 g (Zosyn) 4.5 g, intravenous, at 200 mL/hr, Administer over 0.5 Hours, Every 6 hours, First dose (after last modification) on Mon07/13/24 at 2100, Drug Monitoring Program: Pharmacist to adjust medication dosing based on indication and drug clearance factors., Indications: Respiratory tract infection, healthcare associatedIndications:Respiratory tract infection, healthcare associated New Bag 07/17/2024 2:23 PM SHADE CLASSIFIER 4.5 g 200 mL/hr New Bag 07/17/2024 8:11 AM SHADE CLASSIFIER 4.5 g 200 mL/hr New Bag 07/17/2024 3:41 AM SHADE CLASSIFIER 4.5 g 200 mL/hr propofol 10 mg/mL infusion (Diprivan) intravenous, As needed, Starting on Mon07/15/24 at 1307, Anesthesia Intra-op Rate/Dose Change 07/15/2024 2:58 PM SHADE CLASSIFIER 50 mcg/kg/min 28.8 mL/hr Rate/Dose Change 07/15/2024 1:20 PM SHADE CLASSIFIER 75 mcg/kg/min 43.2 mL/hr New Bag 07/15/2024 1:07 PM SHADE CLASSIFIER 50 mcg/kg/min 28.8 mL/hr propofoL injection (Diprivan) intravenous, As needed, Starting on Mon07/15/24 at 1307, Anesthesia Intra-op Given 07/15/2024 1:07 PM SHADE CLASSIFIER 200 mg rocuronium injection (Zemuron) intravenous, As needed, Starting on Mon07/15/24 at 1307, Anesthesia Intra-op Given 07/15/2024 4:01 PM SHADE CLASSIFIER 10 mg Given 07/15/2024 3:20 PM SHADE CLASSIFIER 20 mg Given 07/15/2024 2:28 PM SHADE CLASSIFIER 20 mg sugammadex injection (Bridion) intravenous, As needed, Starting on Mon07/15/24 at 1619, Anesthesia Intra-op Given 07/15/2024 4:41 PM SHADE CLASSIFIER 100 mg Given 07/15/2024 4:39 PM SHADE CLASSIFIER 100 mg Given 07/15/2024 4:19 PM SHADE CLASSIFIER 200 mg documented in this encounter Additional Health Concerns Assessment Noted Time PHQ-9 Depression Total Score: 22 025 7:19 PM SHADE CLASSIFIER documented as of this encounter Care Teams Keyboard Instrument Tuner Relationship Specialty Start Date End Date Prudence Mena MPAS, P.A.-C. [address] [place] [phone] PCP - General Internal Medicine 02/08/24 documented as of this encounter
--- OUTSIDE RECORDS SUMMARY | 2024-08-28 18:18 | XMS_ITS | Encounter Summary ---
Author Organization [facility] Address [address] [place] [address] Care Team Providers Care Wheel Borer Name Role Phone Prudence Mena P.A.-C. Primary Care Pro vider Reason for Visit * Auth/Cert (Routine) Specialty Diagnoses / Procedures Referred By Contac t Referred To Contact Diagnoses Empyema Pleural (HCC) Pleuritic chest pain. empyema Procedures INPT Referral ID Status Reason Start Date Expiration Date Visits Re quested Visits Authorized [id number] 1 1 Encounter Details Date Type Department Care Team (Late st Contact Info) Description 07/15/2024 1:10 PM FLATWORK SUPERVISOR - 07/15/2024 4:33 PM FLATWORK SUPERVISOR Surgery RST [facility] MAIN OR [address] [place] [phone] Patrick Mtz M.D., Ph.D. [address] [place] [phone] ROBOTIC THORACOSCOPY, DECORTICATION, PLEURODESIS, PROCEED INDICATED. Social History Tobacco Use Types Packs/Day Years Used Date Smoking Tobacco: Former Cigarettes 1.5 0.2 S tarted: 06/21/2024 Passive Smoke Exposure: Past Smokeless Tobacco: Never Alcohol Use Standard Drinks/Week Comments Yes 0 (1 standard drink = 0.6 oz pur e alcohol) socially [facility] Utilities Answer Date Recorded In the past [...] Never 07/27/2022 How often do you attend protestant or adventism serv ices? Never 07/27/2022 Do you belong to any clubs o r organizations such as protestant groups, unions, fraternal or athletic groups, or [...] Date Recorded PHQ-2 Score 6 07/10/2024 [facility] [...] Comments Blood Pressure 132/87 07/15/2024 8:30 AM FLATWORK SUPERVISOR Pulse 99 07/15/2024 8:30 AM FLATWORK SUPERVISOR Temperature 36.8 C (98.2 F) 07/15/2024 8:30 AM FLATWORK SUPERVISOR Respiratory Rate 22 07/15/2024 8:30 AM FLATWORK SUPERVISOR Oxygen Saturation 98% 07/15/2024 8:30 AM FLATWORK SUPERVISOR Inhaled Oxygen Concentration - - Weight 96 kg (211 lb 10.3 oz) 07/13/2024 8:00 PM FLATWORK SUPERVISOR Height - - Body Mass Index 37.53 07/17/2024 3:00 PM FLATWORK SUPERVISOR documented in this encounter Discharge Summaries * Shahram Abernathy, FRED, C.N.P., M.S. - 07/20/2024 10:16 AM CST DISCHARGE SUMMARY BRIEF OVERVIEW Hospital: [facility] Discharge Provider: Patrick Mtz M.D. Primary Team: [facility] Thoracic Surgery - [place] Primary Care Providers: Prudence Mena MPAS, P.A.-CDmitry (General) [address] [place] [phone] Primary Care Provider Primary Care Provider Other [...] INDICATED. Patrick Mtz M.D., Ph.D.Catrina Sutton M.D. [facility] ROMB OR DISCHARGE DISPOSITION [...] with any questions or issues. Admin Ast: [phone] (M-F 8 AM to 5 PM) Process Validation Engineer: [phone] (Thoracic Surgery Paperback Machine Operator for Nights & Weekend Urgent Issues) Appointments: [phone] INFECTIOUS DISEASES THERAPY RECOMMENDATIONS Antimicrobial plan: Patient [...] of Infectious Diseases OPAT monitoring program at [phone]. Should patient be enrolled in OPAT/COPAT program: [...] 10 Appointments 07/21/2024 9:00 AM CHAIR 01 [facility] 02 INF Infusion Therapy 07/22/2024 9:00 AM CHAIR 05 [facility] 02 INF Infusion Therapy 07/23/2024 9:00 AM CHAIR 05 [facility] 02 INF Infusion Therapy 07/24/2024 9:00 AM CHAIR 03 [facility] XX INF Infusion Therapy 07/25/2024 9:00 AM CHAIR 05 [facility] 02 INF Infusion Therapy 07/26/2024 9:00 AM CHAIR 05 [facility] 02 INF Infusion Therapy 07/27/2024 9:00 AM CHAIR 01 [facility] 02 INF Infusion Therapy 07/28/2024 9:00 AM CHAIR 01 [facility] 02 INF Infusion Therapy 07/29/2024 10:00 [...] female who was a direct admission from [facility] on for a left-sided empyema. She proceeded [...] discharge services today: greater than 30 minutes. WORK SUPERVISOR documented in this encounter Discharge Instructions * Attachments The following attachments cannot be sent through Care Everywhere. * Acute Pain and the Healing Process * Ceftriaxone (By injection) (Nepalese) * Ibuprofen (By mouth) (Nepalese) * Methocarbamol (By mouth) (Nepalese) * Metronidazole (By mouth) (Nepalese) * Oxycodone, Rapid Release (By mouth) (Nepalese) * Laxative, Stimulant (By mouth) (Nepalese) documented in this encounter Medications at Time [...] catheter daily for [address] [facility] 07/19/2024 5 methocarbamoL (Robaxin) 500 mg tablet Take 1 tablet (500 mg total) by mouth 3 (three) times a day as needed for muscle spasms. 45 tablet 07/20/2024 10:13 AM FLATWORK SUPERVISOR 07/19/2024 5 metroNIDAZOLE (FlagyL) 500 mg tabletIndication s:Empyema Take 1 tablet (500 mg total) by mouth 3 (three) times a day for 17 days Indications: Empyema. 51 tablet 07/20/2024 10:13 AM FLATWORK SUPERVISOR 07/19/2024 5 nitrofurantoin (MACRODANTIN) 50 mg capsule [...] Pain Exception. 28 tablet 07/20/2024 10:13 AM FLATWORK SUPERVISOR 07/19/2024 5 sennosides (senna) 8.6 mg tablet Take 2 tablets (17.2 mg total) by mouth daily. 07/20/2024 5 documented as of this encounter Progress [...] Discharge today Patient discussed with Dr. Mtz. WORK SUPERVISOR * Denny Ann R.R.T., L.R.T. - 07/20/2024 7:32 AM CST 07/20/24 0732 Nocturnal Oxygen Assessment Asleep Room Air SpO2 86 Percent Oxygen Flow Rate 1 L/min (via nasal cannula) Nocturnal oxygen assessment completed. Patient's SpO2 was at or below 88% for 5 minutes or greater.Any desaturations on trend lower than patient SpO2 is considered artifact. Electronically signed by: Denny Ann R.R.T., L.R.T. 07/20/24 7:32 AM FLATWORK SUPERVISOR WORK SUPERVISOR * Kusum Urena R.R.T., L.R.T. - 07/19/2024 [...] tolerated. Electronically signed by: Kusum Urena R.R.T., aMrcellusRDmitryTDmitry 07/19/24 1:54 PM FLATWORK SUPERVISOR WORK SUPERVISOR * Lopez Garvey M.D. - 07/19/2024 12:18 [...] Encourage ambulance Patient discussed with Dr. Mtz. WORK SUPERVISOR * Arlyn Starr R.R.T., L.R.T. - 07/18/2024 12:39 PM CST 07/18/24 [...] tomorrow. Electronically signed by: Arlyn Starr R.R.T., Melida.R.TDmitry 07/18/24 12:39 PM FLATWORK SUPERVISOR WORK SUPERVISOR WORK SUPERVISOR * Anna Wheeler - 07/18/2024 12:26 PM CST Clinical Nutrition: Initial Assessment RECOMMENDATIONS REQUIRING MD/PROVIDER ORDER No changes at this time; continue current nutrition orders For questions about patient's nutritional care please contact pager [phone] on weekdays or [phone] on weekends/holidays. NUTRITION ASSESSMENT: Ms. Kumar is [...] patient report. ESTIMATED NEEDS: Total Calorie Needs: 6320-5288 calories/day Method to Estimate Energy Needs: [place] Je[place] ( ) Weight Used for Equation Calculations: 96 kg Total Protein Needs: 77 - 96 grams/day Method to Estimate Protein Needs (g/kg): 0.8 - 1 gm/kg Weight Used to Calculate Protein Needs (Kg): 96 kg Nutrition Diagnosis: Clinical risk not noted Nutrition Intervention: Medical food supplement Monitoring/Evaluation: Nutrition parameter to monitor: Meals/Supplement Intake, Weight Status WORK SUPERVISOR * Patrick Mtz M.D., Ph.D. - 07/18/2024 10:56 AM CST I visited face to face with the patient on NT10 this morning. We will obtain an updated chest x-raywith a view towards removing 1 of her chest tubes today. We will follow the recommendations of our Infectious Disease colleagues regarding ongoing antibiotic management. WORK SUPERVISOR * Magno Fisher, Ph.D. - 07/18/2024 8:59 [...] 3 completed shifts: In: 2897.8 [P.O.:2150] Out: 2234 [Urine:2024; Chest Tube:210] Plan: - Two view CXR in the morning - Possible remove anterior chest tube after CXR - PICC for home IV antibiotics per ID suggestion - Encourage ambulance Patient discussed with Dr. Mtz. WORK SUPERVISOR * Kayleigh Small M.D. - 07/18/2024 8:24 [...] Please page the ICU-ID service pager at [phone] with questions. Thank you for the consultation. Discussed with Dr. Camejo, ID medical consultant and the primary team. Kayleigh Small [...] of Infectious Diseases OPAT monitoring program at [phone]. Should patient be enrolled in OPAT/COPAT program: [...] Camejo M.D., M.S. at 07/18/2024 1:06 PM FLATWORK SUPERVISOR WORK SUPERVISOR WORK SUPERVISOR Associated attestation - Hay Camejo M.D., M.S. - 07/18/2024 1:06 PM FLATWORK SUPERVISOR I saw and evaluated the patient, participating [...] see associated note for further details. * Dada, Montrell Moctezuma R.R.T., MarcellusRDmitryT. - 07/17/2024 1:04 PM CST 07/17/24 0930 Pulmonary Rehab Pulmonary Rehab Patient Evaluation Pulmonary rehabilitation ordered;Chart and history reviewed Monitored Exercise Session Details see note $Monitored Exercise Session 45 minutes Inpatient Pulmonary Rehab: Follow-up Needed Yes Inpatient Pulmonary Rehab: Next Date 07/18/24 Inpatient Pulmonary Rehab: Patient to be Seen Next by RT Patient exercised using [employer] Total Body Recumbent Stepper for 7 minutes [...] Montrell Garland R.R.T., Christian 07/17/24 1:04 PM FLATWORK SUPERVISOR WORK SUPERVISOR * Lopez Garvey M.D. - 07/17/2024 9:19 [...] spirometer Discussed with Dr. Smith Garvey MD WORK SUPERVISOR * Jarocho Belle, R.Ph. - 07/16/2024 1:12 PM CST Pharmacokinetic Consult - Vancomycin Dosing Melinda Kumar is a 39 y.o. female who has received a pharmacy consult for vancomycin therapyfor dose optimization and monitoring. Indication: Respiratory tract infection, healthcare associated Goal trough: 10-15 mcg/mL OBJECTIVE There is no height or weight on file to calculate BMI. [place] body weight: 55.1 kg Adjusted ideal body [...] patient's clinical progress daily. Jarocho Belle, R.Ph. WORK SUPERVISOR * Gema Srinivasan R.R.T., L.R.T. - 07/16/2024 [...] Gema Srinivasan R.R.T., L.R.T. 07/16/24 11:34 AM FLATWORK SUPERVISOR WORK SUPERVISOR * Lopez Garvey M.D. - 07/16/2024 9:46 AM CST Ms. Kumar is POD 1 from left robotic decortication, 2 chest tubes were left in place Patient is afebrile and hemodynamically stable. She had a INSPECTOR CRYSTAL started overnight for pain control. She otherwise [...] spirometer Discussed with Dr. Smith Garvey MD Patrick Muñoz M.D., Ph.D. - 07/16/2024 7:44 AM CST [...] drains will remain in place for today. Lopez Sifuentes M.D. - 07/15/2024 7:36 AM CST Ms. Kumar is a 39-year-old female who was a direct admission from [facility] on for a left-sided empyema. Patient reports [...] female who was a direct admission from [facility] on for a left-sided empyema. She will be proceeding to the operating room tomorrow for left VATS decortication. Plan: -continue IV antibiotics -OR today Discussed with Dr. Smith Garvey MD WORK SUPERVISOR * Lopez Garvey M.D. - 07/14/2024 9:00 AM CST Ms. Kumar is a 39-year-old female who was a direct admission from [facility] on for a left-sided empyema. Patient reports [...] female who was a direct admission from [facility] on for a left-sided empyema. She will be proceeding to the operating room tomorrow for left VATS decortication. Plan: -continue IV antibiotics -regular diet today, NPO at midnight -continue pain control -patient has listed, will be consented and site marked for operating room tomorrow Discussed with Dr. Smith Garvey MD WORK SUPERVISOR * Maxim Freed Pharm.D., R.Ph., BCPS - 07/14/2024 8:27 AM CST Images from the original note were not included. Pharmacist Progress Note Reason for admission: direct admission from [facility] on July 13 for a left-sided empyema [...] for medicationuse optimization Ken Freed PharmDmitryD., R.Ph., [facility] Admission Medication History Note Adherence issues: Ran out of chronic suppression nitrofurantoin more than one month ago Medication list source: Patient, recent filling Hx Medication related information: pt is ok to do without dextroamphetamine 15 mg ER and Adderall 10 mg while hospitalized Prior to Admission Medications Med List Status: Pharmacy Complete Set By: Maxim Freed Pharm.D., R.Ph., [facility] at 07/14/2024 8:25AM Taking? Last Dose Informant [...] DME Order Patient stated she needs to flower picker DULoxetine (CYMBALTA) [address] capsule [...] information available at the time of documentation. WORK SUPERVISOR documented in this encounter H&P Notes * Lopez Garvey M.D. - 07/13/2024 7:38 PM CST History and Physical SUBJECTIVE Chief Complaint:pleuritic chest pain HPI: Melinda Kumar is a 39 y.o. female with a past medical history significant for fibromyalgia, chronic back pain, asthma, sleep apnea, hypertension, depression who was directly admitted for left empyema. Patient presented at the end of June to [facility] initially with pneumonia, following influenza A infection. [...] to worsening symptoms she presented again to [facility] where she underwent a CT scan that [...] AGENT; Surgeon: Yobany Soares M.D., Ph.D.; Location: [facility] OR HYDRODISTENSION BLADDER WITH CYSTOSCOPY N/A 06/30/2023 Procedure: HYDRODISTENSION BLADDER WITH CYSTOSCOPY; Surgeon: Yobany Soares M.D., Ph.D.; Location: [facility] OR INJECTION BOTOX Bilateral 06/30/2023 Procedure: INJECTION BOTOX PELVIC FLOOR; Surgeon: Yobany Soares M.D., Ph.D.; Location: [facility] OR OTHER SURGICAL HISTORY 10/2017 Hysterectomy that [...] DME Order Patient stated she needs to flower picker), Disp: 1 each, Rfl: 0 DULoxetine [...] room Discussed with Dr. Smith Garvey MD WORK SUPERVISOR documented in this encounter Procedure Notes * [...] with ultrasound and measured to ensure appropriate nqsbctdm-zy-ecro ratio of 45% or less: Right Basilic [...] to release the adhesive from the skin. [email or web address]/products/[email or web address] WORK SUPERVISOR documented in this encounter Consult Notes * Karen Wilkerson M.SAnton., HamletS.W. - 07/18/2024 12:33 PM CSTAssociated Order(s): IP CONSULT TO CARE MANAGEMENT Psychosocial Assessment SUBJECTIVE ASSESSMENT INFORMATION Referral Data Referral Source: SOUP PERSON/PA Referral Reason: Psychosocial assessment, Discharge Planning Previous Assessment: No Production Control Expediter Services Used: No Primary Language: Nepalese Production Control Expediter Services Used: No Sexuality/Pronoun: Straight / Person(s) [...] PRESENT ILLNESS Patient is currently hospitalized at [facility] on [facility] [address]. Patient shares that she [facility] hospital for Pneumonia. SOCIAL HISTORY Family / Household: Patient reports living in a multi level town home with her 4 sons ages 17, 17, 15 and 10. Support System: 4 children and family in [place] Spirituality/Holiness/Cultural Factors: None History: No Employment: disabled Psychosocial [...] functioning Family support OBJECTIVE FINANCES/INSURANCE Primary insurance: [employer] HMO Secondary insurance: N/A Financial concerns: No ADVANCE DIRECTIVES Legal Decision Maker: Self Advance Directives: N/A Advance Directives Status: N/A BASELINE FUNCTIONAL STATUS Baseline Activities of Daily Living Mobility: Independent Dressing: Independent Feeding: Independent Bathing: Independent Grooming: Independent Toileting: Independent Behavior: Pleasant, Calm, Appropriate, Oriented, Cooperative Communication: Can write, Talks, Understands speaking, Understands Nepalese Shopping: Needs assistance Medication Management: Independent Housekeeping: Needs assistance Meal Prep: Independent Assistive Devices: None BASELINE SERVICES/RESOURCES Primary care clinic and provider: [facility] Services/Resources: No services or resources prior to [...] current substance use. ASSESSMENT / PLAN DISCUSSION Electroneurodiagnostic Technologist met with patient in hospital room to provide a supportive visit, complete a psychosocial, and assist with discharge needs. Introduced self and reviewed role of inpatient Social Work, including legal responsibility as a mandated manager presentation. Patient expressed understanding of the purpose of [...] our ownership and financial relationship of the [facility] beds, home health, and hospice agencies. Reviewed [facility] medicaid insurance coverage and provided in-network options. Patient anticipates discharging home once medically ready without patient infusions at [facility]. Patient reports no further questions currently. Encouraged patient to contact Electroneurodiagnostic Technologist should additional needs arise. biofuels plant construction worker returned to inform patient that [facility] is not open on weekends and that she willneed to go to [place]. Patient was agreeable to this. Patient's mother was in the room and shared that she had a question for social research assistant. Patient's mother asked about help with cleaning around the home. biofuels plant construction worker explained the [place] assessment through the [...] not provided due to not being a [place] resident and/or 60 + years old. PLAN Outpatient infusions will be obtained through: [facility] Monday- Monday and [facility] Week[facility]. Phone for scheduling- [phone] Phone for [phone] NURSING: - Call to arrange for the patient???s first visit Prior to 3 pm Monday if Discharging over the weekend. - Adjust the dosing schedule to accommodate [facility] schedule. - Complete documentation in the Discharge Navigator including Nursing Report Info and Facility/NextLevel of Care Info PRIMARY SERVICE: - Complete infusion therapy and lab orders in [facility] as needed. - Identify the continuing care provider, who will follow the patient while receiving outpatient infusion at [facility]. Social Work : -Will continue to follow. Anticipated barriers to the transition of care/plan: None identified at this time. Uri Gonzales., L.I.C.S.W. 07/18/2024 WORK SUPERVISOR WORK SUPERVISOR * Kayleigh Small M.D. - 07/17/2024 10:59 [...] empyema. Interval history includes initial presentation to [facility] ED 06/26/2024 and was prescribed azithromycin and prednisone for walking pneumonia. She was admitted to [facility] 06/30/2024-07/04/2024 with sepsis secondary to left lower lobe pneumonia and was treated with IV antibiotics and IV steroid. She was discharged on 07/04/2024 on oral antibiotics (doxycycline for 5 days. After d ischarge patient continued continued to have shortness of breath and left pleuritic chest pain. Dueto worsening in symptoms she presented again to [facility] where she underwent CT chest which showed worsening left pleural effusion and empyema. [facility] She underwent left [...] - Date/Time Bacterial Culture, Anaerobic + Susceptibility [[id number]] Collected: 07/15/24 1600 Lab Status: Preliminary result Specimen: Tissue from Pleura, Left Updated: 07/17/24 0739 Bacterial Culture, Anaerobic + Susc No growth to date. Fungal Culture, Routine [[id number]] Collected: 07/15/24 1600 Lab Status: In process Specimen: Tissue from Pleura, Left Updated: 07/15/24 1720 Gram Stain [[id number]] Collected: 07/15/24 1600 Lab Status: Final result Specimen: Tissue from Pleura, Left Updated: 07/15/24 2218 Gram Stain No organisms seen. White blood cells, Many Acid Fast Smear for Mycobacterium [[id number]] Collected: 07/15/24 1600 Lab Status: Final result Specimen: Tissue from Pleura, Left Updated: 07/15/24 2218 Acid Fast Smear For Mycobacterium Negative. Legionella Culture [[id number]] Collected: 07/15/24 1600 Lab Status: Preliminary result Specimen: Tissue from Pleura, Left Updated: 07/17/24 0754 Legionella Culture No growth to date. Fungal Smear [[id number]] Collected: 07/15/24 1600 Lab Status: Final result Specimen: Tissue from Pleura, Left Updated: 07/16/24 0852 Fungal Smear Negative. Mycobacterial Culture [[id number]] Collected: 07/15/24 1600 Lab Status: In process Specimen: Tissue from Pleura, Left Updated: 07/15/24 1720 Actinomyces Culture [[id number]] Collected: 07/15/24 1600 Lab Status: Preliminary result Specimen: Tissue from Pleura, Left Updated: 07/17/24 0739 Actinomyces Culture No growth to date. Bacterial Culture, Aerobic + Susceptibility [[id number]] Collected: 07/15/24 1600 Lab Status: Preliminary result Specimen: Tissue from Pleura, Left Updated: 07/17/24 0847 Bacterial Culture, Aerobic + Susc No growth to date. Fungal Culture, Routine [[id number]] Collected: 07/15/24 1424 Lab Status: In process Specimen: Pleural Fluid, Left Updated: 07/15/24 1519 Narrative: Bacterial Culture: Placed in Bactec aerobic and Bactec anaerobic bottles Gram Stain [[id number]] Collected: 07/15/24 1424 Lab Status: Final result Specimen: Pleural Fluid, Left Updated: 07/15/24 2002 Gram Stain No organisms seen. White blood cells, Moderate Narrative: Bacterial Culture: Placed in Bactec aerobic and Bactec anaerobic bottles Acid Fast Smear for Mycobacterium [[id number]] Collected: 07/15/24 1424 Lab Status: Final result Specimen: Pleural Fluid, Left Updated: 07/15/24 2125 Acid Fast Smear For Mycobacterium Negative. Narrative: Bacterial Culture: Placed in Bactec aerobic and Bactec anaerobic bottles Fungal Smear [[id number]] Collected: 07/15/24 1424 Lab Status: Final result Specimen: Pleural Fluid, Left Updated: 07/15/24 1925 Fungal Smear Negative. Narrative: Bacterial Culture: Placed in Bactec aerobic and Bactec anaerobic bottles Mycobacterial Culture [[id number]] Collected: 07/15/24 1424 Lab Status: In process Specimen: Pleural Fluid, Left Updated: 07/15/24 1519 Narrative: Bacterial Culture: Placed in Bactec aerobic and Bactec anaerobic bottles Bacterial Culture, Aerobic + Susceptibility [[id number]] Collected: 07/15/24 1424 Lab Status: Preliminary result Specimen: Pleural Fluid, Left Updated: 07/17/24 0847 Bacterial Culture, Aerobic + Susc No growth to date. Narrative: Bacterial Culture: Placed in Bactec aerobic and Bactec anaerobic bottles Staph aureus / MRSA, Nasal, PCR [[id number]] Collected: 07/14/24 1039 Lab Status: Final result [...] Please page the ICU-ID service pager at [phone] with questions. Thank you for the consultation. Discussed with Dr. Camejo, ID medical consultant and the primary team. Kayleigh Small M.D. Infectious Diseases Fellow Cosigned by Hay Camejo M.D., M.S. at 07/17/2024 2:43 PM FLATWORK SUPERVISOR WORK SUPERVISOR WORK SUPERVISOR Associated attestation - Hay Camejo M.D., M.S. - 07/17/2024 2:43 PM FLATWORK SUPERVISOR I saw and evaluated the patient, participating [...] If some point, she was admitted to [facility] at the end of June for [...] this encounter Nursing Notes * Isis Flaherty R.N. - 07/20/2024 6:45 AM CST Shift Goals: Clinical Goals for the Shift: Patient will report pain control Identify possible barriers to meeting goals/advancing plan of care: None End of Shift Summary: VSS and pain well controlled with oxy, tylenol, robaxin, and ibuprofen. She ambulated safely and independently. Noc study was completed and pt qualified for [facility]. Isis Flaherty R.N. Problem: PAIN - [...] Goal: Maintain a safe environment Outcome: Progressing WORK SUPERVISOR * Malcolm Cordon R.N. - 07/19/2024 4:47 [...] DC home tomorrow (07/20). Malcolm Cordon R.N. WORK SUPERVISOR * Shawna Little R.N., C.M.S.RDmitryNDmitry - 07/17/2024 10:01 PM CST Shift Goals: Clinical Goals for the Shift: Pt will state pain is tolerable after discontinuing INSPECTOR CRYSTAL. Identify possible barriers to meeting goals/advancing plan [...] pain 6-9/10 during shift. Ice pack utilized. INSPECTOR CRYSTAL DC'd. Scheduled Tylenol given. PRN oxycodone, Robaxin [...] SATS above 90% Encouraged incentive spirometer use. WORK SUPERVISOR * Bhumi Chawla R.NDmitry - 07/17/2024 5:43 AM CST Shift Goals: Clinical Goals for the Shift: Patient will get adequate rest overnight and report good pain control Identify possible barriers to meeting goals/advancing plan of care: None End of Shift Summary: Sasha slept well overnight in between cares. Pain controlled with INSPECTOR CRYSTAL, PRN Robaxin and scheduled tylenol. She ambulated [...] Achieves optimal ventilation and oxygenation Outcome: Progressing WORK SUPERVISOR * Diane Blevins R.N. - 07/15/2024 1:15 PM CST Patient came to OR with personal belongings including 4 earrings and 1 ring/piercing. Sent with patient on chart. Roxanne Blevins RN WORK SUPERVISOR * Candi Leonard R.N. - 07/15/2024 6:24 [...] Absence of infection during hospitalization Outcome: Progressing WORK SUPERVISOR * Helena Brady RSelvin - 07/14/2024 6:41 PM CST Shift Goals: [...] Goal: Patient discharge needs identified Outcome: Progressing WORK SUPERVISOR documented in this encounter OR Notes * Op Note - Catrina Sutton M.D. - 07/15/2024 2:11 PM CST Pre-op Diagnosis Empyema Pleural (HCC) Post-op Diagnosis Empyema Pleural (HCC) Taxation Consultant A commercial loan assistant actively participated and was necessary for [...] Mtz M.D., Ph.D. at 07/17/2024 8:18 AM FLATWORK SUPERVISOR WORK SUPERVISOR WORK SUPERVISOR * Brief Op Note - Catrina Sutton M.D. - 07/15/2024 2:11 PM FLATWORK SUPERVISOR Pre-op Diagnosis Empyema Pleural (HCC) Post-op Diagnosis Empyema Pleural (HCC) Findings Multiple adhesions and pockets of pus involving the pleura, lower lobe and diaphragm Complications None Catrina Cole M.D. WORK SUPERVISOR documented in this encounter Miscellaneous Notes * Hospital Course - Melinda Isaac APRN, C.N.PDmitry - 07/16/2024 8:03 AM FLATWORK SUPERVISOR Ms. Kumar is a 39-year-old female who was a direct admission from [facility] on for a left-sided empyema. She proceeded [...] a general diet, and voiding without difficulty. WORK SUPERVISOR WORK SUPERVISOR WORK SUPERVISOR WORK SUPERVISOR WORK SUPERVISOR WORK SUPERVISOR WORK SUPERVISOR WORK SUPERVISOR WORK SUPERVISOR WORK SUPERVISOR documented in this encounter Plan of Treatment Upcoming Encounters Date Type Department Care Team (Late st Contact Info) Description 08/30/2024 9:00 AM FLATWORK SUPERVISOR Office Visit Department of [facility] in [place], [place] [address] [place] [address] Prudence Mena MPAS, P.A.-C. [address] [place] [address] Scheduled Orders Name Type Priority Associated Diagnoses Orde r Schedule Perform central dragline operator: Site care, Flush port(s) Procedures Routine Empyema Pleural (HCC) Expected: 07/22/2024, Expires: 10/17/2025 Perform central dragline operator: Flush port(s), Site care Procedures Routine [...] inpatients and all outpatients) 07/19/2024 1:04 PM FLATWORK SUPERVISOR NOCTURNAL OXYGEN STUDY - RT Routine 07/19/2024 12:24 PM FLATWORK SUPERVISOR DX CHEST AP OR PA AND LATERAL 2 VIEWS RAD - Routine (most inpatients and all outpatients) 07/19/2024 9:10 AM FLATWORK SUPERVISOR ADULT OXYGEN THERAPY Routine 07/19/2024 8:01 AM FLATWORK SUPERVISOR CBC WITHOUT DIFFERENTIAL, B Routine 07/19/2024 6:02 AM FLATWORK SUPERVISOR BASIC METABOLIC PANEL, S/P Routine 07/19/2024 6:[address] PERIPHERALLY INSERTED CENTRAL CATHETER (PICC) Routine 07/18/2024 8:43 PM FLATWORK SUPERVISOR ADULT OXYGEN THERAPY Routine 07/18/2024 8:01 PM FLATWORK SUPERVISOR DX CHEST AP OR PA AND LATERAL 2 VIEWS RAD - Routine (most inpatients and all outpatients) 07/18/2024 10:15 AM FLATWORK SUPERVISOR ADULT OXYGEN THERAPY Routine 07/18/2024 8:00 AM FLATWORK SUPERVISOR ADULT OXYGEN THERAPY Routine 07/17/2024 8:01 PM FLATWORK SUPERVISOR HIV-1/-2 AG AND AB SCREEN, PLASMA Routine 07/17/2024 5:05 PM FLATWORK SUPERVISOR ADULT OXYGEN THERAPY Routine 07/17/2024 8:01 AM FLATWORK SUPERVISOR ADULT OXYGEN THERAPY Routine 07/16/2024 8:01 PM FLATWORK SUPERVISOR RESPIRATORY ASSESS AND TREAT Routine 07/16/2024 2:00 PM FLATWORK SUPERVISOR VANCOMYCIN, TROUGH, S Timed 07/16/2024 10:31 AM FLATWORK SUPERVISOR ADULT OXYGEN THERAPY Routine 07/16/2024 8:01 AM FLATWORK SUPERVISOR ADULT OXYGEN THERAPY Routine 07/15/2024 8:01 PM FLATWORK SUPERVISOR ADULT OXYGEN THERAPY Routine 07/15/2024 6:49 PM FLATWORK SUPERVISOR ADULT OXYGEN THERAPY Routine 07/15/2024 6:49 PM FLATWORK SUPERVISOR ADULT OXYGEN THERAPY Routine 07/15/2024 6:49 PM FLATWORK SUPERVISOR DX CHEST 1 VIEW RAD - Routine (most inpatients and all outpatients) 07/15/2024 4:51 PM FLATWORK SUPERVISOR BACTERIAL CULTURE, AEROBIC + SUSC Routine 07/15/2024 4:00 PM FLATWORK SUPERVISOR Empyema Pleural (HCC) ACTINOMYCES CULTURE Routine 07/15/2024 4 :00 PM FLATWORK SUPERVISOR Empyema Pleural (HCC) MYCOBACTERIAL CULTURE, V Routine 07/15/2024 4:00 PM FLATWORK SUPERVISOR Empyema Pleural (HCC) FUNGAL SMEAR Routine 07/15/2024 4:00 PM FLATWORK SUPERVISOR Empyema Pleural (HCC) LEGIONELLA CULTURE Routine 07/15/2024 4: 00 PM FLATWORK SUPERVISOR Empyema Pleural (HCC) ACID FAST SMEAR FOR MYCOBACTERIUM Routine 07/15/2024 4:00 PM FLATWORK SUPERVISOR Empyema Pleural (HCC) GRAM STAIN Routine 07/15/2024 4:00 PM FLATWORK SUPERVISOR Empyema Pleural (HCC) FUNGAL CULTURE, ROUTINE Routine 07/15/2024 4:00 PM FLATWORK SUPERVISOR Empyema Pleural (HCC) BACTERIAL CULTURE, ANAEROBIC + SUSC Routine 07/15/2024 4:00 PM FLATWORK SUPERVISOR Empyema Pleural (HCC) BACTERIAL CULTURE, AEROBIC + SUSC Routine 07/15/2024 2:24 PM FLATWORK SUPERVISOR Empyema Pleural (HCC) MYCOBACTERIAL CULTURE, V Routine 07/15/2024 2:24 PM FLATWORK SUPERVISOR Empyema Pleural (HCC) FUNGAL SMEAR Routine 07/15/2024 2:24 PM FLATWORK SUPERVISOR Empyema Pleural (HCC) ACID FAST SMEAR FOR MYCOBACTERIUM Routine 07/15/2024 2:24 PM FLATWORK SUPERVISOR Empyema Pleural (HCC) GRAM STAIN Routine 07/15/2024 2:24 PM FLATWORK SUPERVISOR Empyema Pleural (HCC) FUNGAL CULTURE, ROUTINE Routine 07/15/2024 2:24 PM FLATWORK SUPERVISOR Empyema Pleural (HCC) THORACOSCOPY - DECORTICATION 07/15/2024 12:32 PM FLATWORK SUPERVISOR Empyema Pleural (HCC) TYPE AND SCREEN STAT 07/15/2024 7:50 AM FLATWORK SUPERVISOR MRSA/STAPHYLOCOCCUS AUREUS, NASAL, BY PCR Routine 07/14/2024 10:39 AM FLATWORK SUPERVISOR BASIC METABOLIC PANEL, S/P Routine 07/14/2024 4:09 AM FLATWORK SUPERVISOR DX CHEST PORTABLE 1 VIEW RAD - Routine (most inpatients and all outpatients) 07/13/2024 9:07 PM FLATWORK SUPERVISOR CBC WITHOUT DIFFERENTIAL, B Routine 07/13/2024 8:14 PM FLATWORK SUPERVISOR documented in this encounter Results * DX Chest AP or PA and Lateral 2 Views (08/27/2024 10:18 AM FLATWORK SUPERVISOR) Anatomical Region Laterality Modality Chest, Thoracic RST LOS, Tho racic ARZ LOS, Thoracic FLA LOS N/A Digital Radiography Impressions 08/27/2024 10:25 AM FLATWORK SUPERVISOR Compared to 08/05/2024, multifocal linear subsegmental atelectasis or scarring and mild septal thickening in the left hemithorax is decreased but not resolved. Trace left pleural effusion is decreased. Improved aeration of the left lung base with decrease in previous mild patchy groundglass opacities. No new consolidation. Interval removal of right PICC. Chest otherwise negative. Narrative 08/27/2024 10:25 AM FLATWORK SUPERVISOR EXAM: DX CHEST AP OR PA AND [...] IM AGING PROCEDURES Final Result * (ABNORMAL) Creatinine with Estimated GFR (07/29/2024 10:15 AM FLATWORK SUPERVISOR) Creatinine 0.53(L) 0.59 - 1.04 mg/dL 07/29/2024 10:39 AM FLATWORK SUPERVISOR CNFL Estimated GFR (eGFR) >90 >=60 mL/min/BSA 07/29/2024 10:39 AM FLATWORK SUPERVISOR CNFL Comment: Estimated GFR calculated using the 2020 CKD_EPI creatinine equation. Blood (Blood, PICC) 07/29/2024 10:15 AM FLATWORK SUPERVISOR 07/29/2024 10:18 AM FLATWORK SUPERVISOR us Melinda Isaac APRN, C.N.P. LAB [place] [address], [place] [address] * Alkaline Phosphatase (07/29/2024 10:15 AM FLATWORK SUPERVISOR) Alkaline Phosphatase, P 97 35 - 104 U/L 07/29/2024 10:39 AM FLATWORK SUPERVISOR CNFL Blood (Blood, PICC) 07/29/2024 10:15 AM FLATWORK SUPERVISOR 07/29/2024 10:18 AM FLATWORK SUPERVISOR Melinda Isaac APRN, C.N.P. LAB [place] [address], [facility] [place] [facility] in [address] [address] * ALT (Alanine Aminotransferase) (07/29/2024 10:15 AM FLATWORK SUPERVISOR) Pathologist [facility] Alanine Aminotransferase (ALT), P 15 7 - 45 U/L 07/29/2024 10:39 AM FLATWORK SUPERVISOR CNFL Blood (Blood, PICC) 07/29/2024 10:15 AM FLATWORK SUPERVISOR 07/29/2024 10:18 AM FLATWORK SUPERVISOR us Melinda Isaac APRN, C.N.P. LAB BLOOD ADD-ON Final Result [facility] [address] [place] [address], [facility] in [address] [address] * (ABNORMAL) CBC with Differential, Blood (07/29/2024 10:15 AM FLATWORK SUPERVISOR) Pathologist [facility] Hemoglobin 10.2(L) 11.6 - 15.0 g/dL 07/29/2024 10:28 AM FLATWORK SUPERVISOR CNFL Hematocrit 33.5(L) 35.5 - 44.9 % 07/29/2024 10:28 AM FLATWORK SUPERVISOR CNFL Erythrocytes 3.82(L) 3.92 - 5.13 x10(12)/L 07/29/2024 10:28 AM FLATWORK SUPERVISOR CNFL MCV 87.7 78.2 - 97.9 fL 07/29/2024 10:28 AM FLATWORK SUPERVISOR CNFL RBC Distrib Width 14.9 12.2 - 16.1 % 07/29/2024 10:28 AM FLATWORK SUPERVISOR CNFL Platelet Count 837(H) 157 - 371 x10(9)/L 07/29/2024 10:28 AM FLATWORK SUPERVISOR CNFL Leukocytes 16.0(H) 3.4 - 9.6 x10(9)/L 07/29/2024 10:28 AM FLATWORK SUPERVISOR CNFL Neutrophils 13.54(H) 1.56 - 6.45 x10(9)/L 07/29/2024 10:28 AM FLATWORK SUPERVISOR CNFL Lymphocytes 1.31 0.95 - 3.07 x10(9)/L 07/29/2024 10:28 AM FLATWORK SUPERVISOR CNFL Monocytes 0.62 0.26 - 0.81 x10(9)/L 07/29/2024 10:28 AM FLATWORK SUPERVISOR CNFL Eosinophils 0.39 0.03 - 0.48 x10(9)/L 07/29/2024 10:28 AM FLATWORK SUPERVISOR CNFL Basophils 0.12(H) 0.01 - 0.08 x10(9)/L 07/29/2024 10:28 AM FLATWORK SUPERVISOR CNFL Blood (Blood, PICC) 07/29/2024 10:15 AM FLATWORK SUPERVISOR 07/29/2024 10:18 AM FLATWORK SUPERVISOR us Melinda Isaac APRN, C.N.P. LAB BLOOD ADD-ON Final Result Performing Organization Address City/State/[facility] Co de Phone Number [facility] [address] [place] [address], [facility] CNFL [facility] in [place] [id number] * DX Chest AP or PA and Lateral 2 Views (07/19/2024 1:04 PM FLATWORK SUPERVISOR) Anatomical Region Laterality Modality Chest, Thoracic RST LOS, Tho racic ARZ LOS, Thoracic FLA LOS N/A Digital Radiography Impressions 07/19/2024 1:55 PM FLATWORK SUPERVISOR Since earlier today, removal of the left chest tube. Remainder not significantly changed. Trace left apical pneumothorax. Right PICC tip at the SVC/RA junction. No pleural effusions. Enlarged cardiac silhouette. Scattered subsegmental atelectasis. Narrative 07/19/2024 1:55 PM FLATWORK SUPERVISOR EXAM: DX CHEST AP OR PA AND LATERAL 2 VIEWS Procedure Note Jt Valenzuela M.D. - 07/19/2024 EXAM: DX CHEST AP OR PA AND LATERAL 2 VIEWS IMPRESSION: Since earlier today, removal of the left chest tube. Remainder notsignificantly changed. Trace left apical pneumothorax. Right PICC tip atthe SVC/RA junction. No pleural effusions. Enlarged cardiac silhouette.Scattered subsegmental atelectasis. Eveline Mariscal P.A.-C. [facility] [place] OCEDURES Final Result * DX Chest AP or PA and Lateral 2 Views (07/19/2024 9:10 AM FLATWORK SUPERVISOR) Anatomical Region Laterality Modality Chest, Thoracic RST LOS, Tho racic ARZ LOS, Thoracic FLA LOS N/A Digital Radiography Impressions 07/19/2024 10:12 AM FLATWORK SUPERVISOR Since 07/18/2024, right arm PICC has been inserted with tip at the SVC RA junction. One of the left chest tubes has been removed. Remainder unchanged. Trace left apical pneumothorax. No pleural effusions. Enlarged cardiac silhouette. Scattered subsegmental atelectasis. Left chest tube. Narrative 07/19/2024 10:12 AM FLATWORK SUPERVISOR EXAM: DX CHEST AP OR PA AND [...] subsegmental atelectasis. Leftchest tube. Eveline Mariscal P.A.-C. [facility] [place] OCEDURES Final Result * Basic Metabolic Panel (07/19/2024 6:02 AM FLATWORK SUPERVISOR) Potassium, S 3.6 3.6 - 5.2 mmol/L 07/19/2024 6:59 AM FLATWORK SUPERVISOR DTL Sodium, S 140 135 - 145 mmol/L 07/19/2024 6:59 AM FLATWORK SUPERVISOR DTL Chloride, S 103 98 - 107 mmol/L 07/19/2024 6:59 AM FLATWORK SUPERVISOR DTL Bicarbonate, S 28 22 - 29 mmol/L 07/19/2024 6:59 AM FLATWORK SUPERVISOR DTL Anion Gap 9 7 - 15 07/19/2024 6:59 AM FLATWORK SUPERVISOR DTL BUN (Blood Urea Nitrogen), S 11 6 - 21 mg/dL 07/19/2024 6:59 AM FLATWORK SUPERVISOR DTL Creatinine 0.82 0.59 - 1.04 mg/dL 07/19/2024 6:59 AM FLATWORK SUPERVISOR DTL Estimated GFR (eGFR) >90 >=60 mL/min/BSA 07/19/2024 6:59 AM FLATWORK SUPERVISOR DTL Comment: Estimated GFR calculated using the 2020 CKD_EPI creatinine equation. Calcium, Total, S 8.6 8.6 - 10.0 mg/dL 07/19/2024 6:59 AM FLATWORK SUPERVISOR DTL Glucose, S 90 70 - 140 mg/dL 07/19/2024 6:59 AM FLATWORK SUPERVISOR DTL Blood (Blood, Venous) 07/19/2024 6:02 AM FLATWORK SUPERVISOR 07/19/2024 6:42 AM FLATWORK SUPERVISOR Lpoez Garvey M.D. LAB BLOOD ADD-ON Final Resul t [place] [address] [place] [address], [facility] [address] [place] [address] * (ABNORMAL) CBC without Differential (07/19/2024 6:02 AM FLATWORK SUPERVISOR) Hemoglobin 7.6(L) 11.6 - 15.0 g/dL 07/19/2024 6:38 AM FLATWORK SUPERVISOR DTL Hematocrit 24.1(L) 35.5 - 44.9 % 07/19/2024 6:38 AM FLATWORK SUPERVISOR DTL Erythrocytes 2.67(L) 3.92 - 5.13 x10(12)/L 07/19/2024 6:38 AM FLATWORK SUPERVISOR DTL MCV 90.3 78.2 - 97.9 fL 07/19/2024 6:38 AM FLATWORK SUPERVISOR DTL RBC Distrib Width 15.6 12.2 - 16.1 % 07/19/2024 6:38 AM FLATWORK SUPERVISOR DTL Platelet Count 478(H) 157 - 371 x10(9)/L 07/19/2024 6:38 AM FLATWORK SUPERVISOR DTL Leukocytes 9.8(H) 3.4 - 9.6 x10(9)/L 07/19/2024 6:38 AM FLATWORK SUPERVISOR DTL Blood (Blood, Venous) 07/19/2024 6:02 AM FLATWORK SUPERVISOR 07/19/2024 6:26 AM FLATWORK SUPERVISOR Lopez Garvey M.D. LAB BLOOD ADD-ON Final Resul t [facility] [place] [address] [place] [address], [facility] [address] [place] [address] * Place peripherally inserted central catheter (PICC) (07/18/2024 8:43 PM FLATWORK SUPERVISOR) Narrative MMODAL - 07/18/2024 8:43 PM FLATWORK SUPERVISOR Rayo Finch R.N. 07/18/2024 9:[address] peripherally inserted central catheter (PICC) Performed by: Rayo Finch R.N. Authorized by: Eveline Mariscal, P.AmDitry-CDmitry Care team members present 1. Rayo Finch R.N. 2. Chas Torrez VA-LAURA RDmitryNDmitry, MARLINE PROCEDURE DETAILS Select line: PICC Line [...] with ultrasound and measured to ensure appropriate [id number] ratio of 45% or less: Right Basilic [...] to release the adhesive from the skin. http://Notizza/products/secureportiv us Eveline Mariscal P.A.-C. PROCEDURE/MINOR SURGICAL ORDERABLES Final Result MMODAL NA * DX Chest AP or PA and Lateral 2 Views (07/18/2024 10:15 AM FLATWORK SUPERVISOR) Anatomical Region Laterality Modality Chest, Thoracic RST LOS, Tho racic ARZ LOS, Thoracic FLA LOS N/A Digital Radiography Impressions 07/18/2024 10:22 AM FLATWORK SUPERVISOR Compared with the 07/15/2024 chest radiograph. Decreased tiny left pneumothorax. Slightly improved aeration with decreased lower lung predominant presumably atelectases. Shallow inspiration with accentuation of the cardiovascular structures. Narrative 07/18/2024 10:22 AM FLATWORK SUPERVISOR EXAM: DX CHEST AP OR PA AND LATERAL 2 VIEWS Procedure Note Polo Toussaint M.D. - 07/18/2024 EXAM: DX CHEST AP OR PA AND LATERAL 2 VIEWS IMPRESSION: Compared with the 07/15/2024 chest radiograph. Decreased tiny leftpneumothorax. Slightly improved aeration with decreased lower lungpredominant presumably atelectases. Shallow inspiration with accentuationof the cardiovascular structures. Eveline Mariscal P.A.-C. [facility] [place] OCEDURES Final Result * HIV-1/-2 Ag and Ab Screen, Plasma (07/17/2024 5:05 PM FLATWORK SUPERVISOR) [facility] HIV-1/-2 Ag and Ab Screen, P Negative Negative 07/17/2024 8:57 PM FLATWORK SUPERVISOR [facility] Comment: Negative result does not rule out HIV infection. If exposure to HIV infection occurred <14 days ago, contact the laboratory to request addition of HIV-1/HIV-2 RNA detection, Plasma (HIP12). Blood (Blood, Venous) 07/17/2024 5:05 PM FLATWORK SUPERVISOR 07/17/2024 7:55 PM FLATWORK SUPERVISOR Shahram Abernathy APRN, C.N .P., M.S. LAB MICROBIOLOGY - BLOOD ORDERABLES Final Result [facility] [address] [place] [address] [facility] [address] [place] [address] * (ABNORMAL) Vancomycin, Trough (07/16/2024 10:31 AM FLATWORK SUPERVISOR) [facility] Vancomycin, Trough, S 8.9(L) 10.0 - 20.0 mcg/mL 07/16/2024 12:10 PM FLATWORK SUPERVISOR DTL Blood (Blood, Venous) 07/16/2024 10:31 AM FLATWORK SUPERVISOR 07/16/2024 10:52 AM FLATWORK SUPERVISOR us Patrick Mtz M.D., Ph.D. LAB BLOOD NON ADD-ON Fi nal Result [facility] [place] [address] [place] [address], [facility] [address] [place] [address] * DX Chest 1 View (07/15/2024 4:51 PM FLATWORK SUPERVISOR) Anatomical Region Laterality Modality Chest, Thoracic RST LOS, Tho racic ARZ LOS, Thoracic FLA LOS N/A Digital Radiography Impressions 07/15/2024 4:59 PM FLATWORK SUPERVISOR Negative for postoperative purposes. Left thoracotomy with 2 left chest tubes. Small left-sided pneumothorax. New left perihilar consolidation/atelectasis since 07/13/2024. Increased bibasilar consolidation/atelectasis. Very low lung volumes accentuate heart size and bronchovascular markings. Narrative 07/15/2024 4:59 PM FLATWORK SUPERVISOR EXAM: DX CHEST 1 VIEW Procedure Note [...] Culture, Aerobic + Susceptibility (07/15/2024 4:00 PM FLATWORK SUPERVISOR) Bacterial Culture, Aerobic + Susc No growth after 5 days of incubation. 07/20/2024 7:42 AM FLATWORK SUPERVISOR DTL Tissue (Pleura, Left) 07/15/2024 4:00 PM FLATWORK SUPERVISOR us Patrick Mtz M.D., Ph.D. LAB MICROBIOLOGY - GENE RAL ORDERABLES Final Result Performing Organization Address City/[facility]/ZIP Co de Phone Number [facility] [place] [address] [place] [address], [facility] [address] [place] [address] * Actinomyces Culture (07/15/2024 4:00 PM FLATWORK SUPERVISOR) Actinomyces Culture No growth after 14 days of incubation . 07/29/2024 7:33 AM FLATWORK SUPERVISOR DTL Tissue (Pleura, Left) 07/15/2024 4:00 PM FLATWORK SUPERVISOR us Patrick Mtz M.D., Ph.D. LAB MICROBIOLOGY - GENE RAL ORDERABLES Final Result Performing Organization Address [facility] Co de Phone Number [facility] [place] [address] [place] [address], [facility] [address] [place] [address] * Mycobacterial Culture (07/15/2024 4:00 PM FLATWORK SUPERVISOR) Mycobacterial Culture No growth after 42 days of incubation . 08/27/2024 1:02 AM FLATWORK SUPERVISOR DTL Tissue (Pleura, Left) 07/15/2024 4:00 PM FLATWORK SUPERVISOR us Patrick Mtz M.D., Ph.D. LAB MICROBIOLOGY - GENE RAL ORDERABLES Final Result Performing Organization Address City/[facility] Co de Phone Number [facility] [place] [address] [place] [address], [facility] [address] [place] [address] * Fungal Smear (07/15/2024 4:00 PM FLATWORK SUPERVISOR) Fungal Smear Negative. 07/16/2024 8:52 AM FLATWORK SUPERVISOR DTL Tissue (Pleura, Left) 07/15/2024 4:00 PM FLATWORK SUPERVISOR us Patrick Mtz M.D., Ph.D. LAB MICROBIOLOGY - GENE RAL ORDERABLES Final Result Performing Organization Address City/[facility]/ZIP Co de Phone Number [facility] [place] [address] [place] [address], [facility] [address] [place] [address] * Legionella Culture (07/15/2024 4:00 PM FLATWORK SUPERVISOR) Legionella Culture No growth of Legionella species after 7 days of incubation 07/22/2024 8:16 AM FLATWORK SUPERVISOR DTL Tissue (Pleura, Left) 07/15/2024 4:00 PM FLATWORK SUPERVISOR us Patrick Mtz M.D., Ph.D. LAB MICROBIOLOGY - GENE RAL ORDERABLES Final Result Performing Organization Address City/[facility] Co de Phone Number [facility] [place] [address] [place] [address], [facility] [address] [place] [address] * Acid Fast Smear for Mycobacterium (07/15/2024 4:00 PM FLATWORK SUPERVISOR) Acid Fast Smear For Mycobacterium Negative. 07/15/2024 10:18 PM FLATWORK SUPERVISOR DTL Tissue (Pleura, Left) 07/15/2024 4:00 PM FLATWORK SUPERVISOR us Patrick Mtz M.D., Ph.D. LAB MICROBIOLOGY - GENE RAL ORDERABLES Final Result Performing Organization Address City/[facility]/ZIP Co de Phone Number [facility] [place] [address] [place] [address], [facility] [address] [place] [address] * Gram Stain (07/15/2024 4:00 PM FLATWORK SUPERVISOR) Gram Stain No organisms seen. White blood cells, Many 07/15/2024 10:18 PM FLATWORK SUPERVISOR DTL Tissue (Pleura, Left) 07/15/2024 4:00 PM FLATWORK SUPERVISOR us Patrick Mtz M.D., Ph.D. LAB MICROBIOLOGY - GENE RAL ORDERABLES Final Result Performing Organization Address City/[facility]/ZIP Co de Phone Number [facility] [place] [address] [place] [address], [facility] [address] [place] [address] * Fungal Culture, Routine (07/15/2024 4:00 PM FLATWORK SUPERVISOR) Fungal Culture, Routine No growth after 24 days of incubation. 08/09/2024 1:02 AM FLATWORK SUPERVISOR DTL Tissue (Pleura, Left) 07/15/2024 4:00 PM FLATWORK SUPERVISOR us Patrick Mtz M.D., Ph.D. LAB MICROBIOLOGY - GENE RAL ORDERABLES Final Result Performing Organization Address City/[facility]/ZIP Co de Phone Number [facility] [place] [address] [place] [address], [facility] [address] [place] [address] * Bacterial Culture, Anaerobic + Susceptibility (07/15/2024 4:00 PM FLATWORK SUPERVISOR) Bacterial Culture, Anaerobic + Susc No growth after 14 days of incubation. 07/29/2024 7:33 AM FLATWORK SUPERVISOR DTL Tissue (Pleura, Left) 07/15/2024 4:00 PM FLATWORK SUPERVISOR us Patrick Mtz M.D., Ph.D. LAB MICROBIOLOGY - GENE RAL ORDERABLES Final Result [facility] [place] [address] [place] [address], [facility] [address] [place] [address] * Bacterial Culture, Aerobic + Susceptibility (07/15/2024 2:24 PM FLATWORK SUPERVISOR) Bacterial Culture, Aerobic + Susc No growth after 5 days of incubation. 07/20/2024 7:42 AM FLATWORK SUPERVISOR DTL Fluid (Pleural Fluid, Left) 07/15/2024 2:24 PM FLATWORK SUPERVISOR [facility] - 07/20/2024 7:42 AM FLATWORK SUPERVISOR Bacterial Culture: Placed in Bactec aerobic and Bactec anaerobic bottles us Patrick Mtz M.D., Ph.D. LAB MICROBIOLOGY - GENE RAL ORDERABLES Final Result Performing Organization Address City/[facility]/ZIP Co de Phone Number [facility] [place] [address] [place] [address] * Mycobacterial Culture (07/15/2024 2:24 PM FLATWORK SUPERVISOR) Mycobacterial Culture No growth after 42 days of incubation . 08/27/2024 1:02 AM FLATWORK SUPERVISOR DTL Fluid (Pleural Fluid, Left) 07/15/2024 2:24 PM FLATWORK SUPERVISOR [facility] - 08/27/2024 1:02 AM FLATWORK SUPERVISOR Bacterial Culture: Placed in Bactec aerobic and Bactec anaerobic bottles us Patrick Mtz M.D., Ph.D. LAB MICROBIOLOGY - GENE RAL ORDERABLES Final Result Performing Organization Address City/[facility]/ZIP Co de Phone Number [facility] [place] [address] [place] [address], [facility] [address] [place] [address] * Fungal Smear (07/15/2024 2:24 PM FLATWORK SUPERVISOR) Fungal Smear Negative. 07/15/2024 7:25 PM FLATWORK SUPERVISOR DTL Fluid (Pleural Fluid, Left) 07/15/2024 2:24 PM FLATWORK SUPERVISOR [facility] - 07/15/2024 7:25 PM FLATWORK SUPERVISOR Bacterial Culture: Placed in Bactec aerobic and Bactec anaerobic bottles us Patrick Mtz M.D., Ph.D. LAB MICROBIOLOGY - GENE RAL ORDERABLES Final Result [facility] [place] [address] [place] [address], [facility] ([facility] [address] [place] [address] * Acid Fast Smear for Mycobacterium (07/15/2024 2:24 PM FLATWORK SUPERVISOR) Acid Fast Smear For Mycobacterium Negative. 07/15/2024 9:24 PM FLATWORK SUPERVISOR DTL Fluid (Pleural Fluid, Left) 07/15/2024 2:24 PM FLATWORK SUPERVISOR Narrative [facility] [place] - 07/15/2024 9:24 PM FLATWORK SUPERVISOR Bacterial Culture: Placed in Bactec aerobic and Bactec anaerobic bottles us Patrick Mtz M.D., Ph.D. LAB MICROBIOLOGY - GENE RAL ORDERABLES Final Result Performing Organization Address City/[facility]/ZIP Co de Phone Number [facility] [place] [address] [place] [address], [facility] [address] [place] [address] * Gram Stain (07/15/2024 2:24 PM FLATWORK SUPERVISOR) Gram Stain No organisms seen. White blood cells, Moderate 07/15/2024 8:02 PM FLATWORK SUPERVISOR DTL Fluid (Pleural Fluid, Left) 07/15/2024 2:24 PM FLATWORK SUPERVISOR Narrative [facility] [place] - 07/15/2024 8:02 PM FLATWORK SUPERVISOR Bacterial Culture: Placed in Bactec aerobic and Bactec anaerobic bottles us Patrick Mtz M.D., Ph.D. LAB MICROBIOLOGY - GENE RAL ORDERABLES Final Result [facility] [place] [address] [place] [address], [facility] [address] [place] [address] * Fungal Culture, Routine (07/15/2024 2:24 PM FLATWORK SUPERVISOR) [facility] Fungal Culture, Routine No growth after 24 days of incubation. 08/09/2024 1:02 AM FLATWORK SUPERVISOR DTL Fluid (Pleural Fluid, Left) 07/15/2024 2:24 PM FLATWORK SUPERVISOR Narrative [facility] [place] - 08/09/2024 1:02 AM FLATWORK SUPERVISOR Bacterial Culture: Placed in Bactec aerobic and Bactec anaerobic bottles Patrick Mtz M.D., Ph.D. LAB MICROBIOLOGY - GENE RAL ORDERABLES Final Result Performing Organization Address City/[facility]/ZIP Co de Phone Number [facility] [place] [address] [place] [address], [facility] [address] [place] [address] * Type and Screen (with Reflex Antibody ID) (07/15/2024 7:50 AM FLATWORK SUPERVISOR) [facility] ABORh AB Pos Not applicable 07/15/2024 8:36 AM FLATWORK SUPERVISOR STRM Antibody Screen Negative Negative 07/15/2024 8:51 AM FLATWORK SUPERVISOR STRM Type & Screen Expiration 07/18/2024 23:59 07/15/2024 8:36 AM FLATWORK SUPERVISOR STRM Testing Location Sanjiv DEFAULT 07/15/2024 8:10 AM FLATWORK SUPERVISOR STRM Blood (Blood, Venous) 07/15/2024 7:50 AM FLATWORK SUPERVISOR 07/15/2024 8:10 AM FLATWORK SUPERVISOR Jamie Kumar M.D. LAB BLOOD BANK TEST ORDERABLES F inal Result [facility] [place] [address] [place] [address], [facility] STRM [facility] [address] [place] [address] * Staph aureus / MRSA, Nasal, PCR (07/14/2024 10:39 AM FLATWORK SUPERVISOR) [facility] Staphylococcus aureus, PCR Negative Negative 07/14/2024 12:55 PM FLATWORK SUPERVISOR DT MRSA, PCR Negative Negative 07/14/2024 12:55 PM FLATWORK SUPERVISOR DTL Swab (Nares) 07/14/2024 10:3 9 AM FLATWORK SUPERVISOR 07/14/2024 11:06 AM FLATWORK SUPERVISOR us Patrick Mtz M.D., Ph.D. LAB MICROBIOLOGY - GENE RAL ORDERABLES Final Result [facility] [place] [address] [place] [address], [facility] DTL [facility] [address] [place] [address] * (ABNORMAL) Basic Metabolic Panel (07/14/2024 4:09 AM FLATWORK SUPERVISOR) Potassium, S 3.9 3.6 - 5.2 mmol/L 07/14/2024 5:53 AM FLATWORK SUPERVISOR DTL Sodium, S 139 135 - 145 mmol/L 07/14/2024 5:53 AM FLATWORK SUPERVISOR DTL Chloride, S 103 98 - 107 mmol/L 07/14/2024 5:53 AM FLATWORK SUPERVISOR DTL Bicarbonate, S 22 22 - 29 mmol/L 07/14/2024 5:53 AM FLATWORK SUPERVISOR DTL Anion Gap 14 7 - 15 07/14/2024 5:53 AM FLATWORK SUPERVISOR DTL BUN (Blood Urea Nitrogen), S 10 6 - 21 mg/dL 07/14/2024 5:53 AM FLATWORK SUPERVISOR DTL Creatinine 0.57(L) 0.59 - 1.04 mg/dL 07/14/2024 5:53 AM FLATWORK SUPERVISOR DTL Estimated GFR (eGFR) >90 >=60 mL/min/BSA 07/14/2024 5:53 AM FLATWORK SUPERVISOR DTL Comment: Estimated GFR calculated using the 2020 CKD_EPI creatinine equation. Calcium, Total, S 9.1 8.6 - 10.0 mg/dL 07/14/2024 5:53 AM FLATWORK SUPERVISOR DTL Glucose, S 91 70 - 140 mg/dL 07/14/2024 5:53 AM FLATWORK SUPERVISOR DTL Blood (Blood, Venous) 07/14/2024 4:09 AM FLATWORK SUPERVISOR 07/14/2024 5:23 AM FLATWORK SUPERVISOR us Lopez Garvey M.D. LAB BLOOD ADD-ON Final Resul t [facility] [address] [place] [address], [facility] DTL [facility] [address] [place] [address] * DX Chest Portable 1 View (07/13/2024 9:07 PM FLATWORK SUPERVISOR) Anatomical Region Laterality Modality Chest, Thoracic RST LOS, Tho racic ARZ LOS, Thoracic FLA LOS N/A Digital Radiography Impressions 07/14/2024 7:27 AM FLATWORK SUPERVISOR No significant change since earlier today. Bibasilar atelectasis. Small left loculated pleural effusion. Hazy opacification in the bilateral lungs, left greater than right. No discernible pneumothorax. Mildly enlarged cardiomediastinal silhouette. Narrative 07/14/2024 7:27 AM FLATWORK SUPERVISOR EXAM: DX CHEST PORTABLE 1 VIEW Procedure Note Chaz Montelongo M.D. - 07/14/2024 EXAM: DX CHEST PORTABLE 1 VIEW IMPRESSION: No significant change since earlier today. Bibasilar atelectasis. Smallleft loculated pleural effusion. Hazy opacification in the bilaterallungs, left greater than right. No discernible pneumothorax. Mildlyenlarged cardiomediastinal silhouette. Lopez Garvey M.D. IMG DIAGNOSTIC IMAGING [facility] Final Result * (ABNORMAL) CBC without Differential (07/13/2024 8:14 PM FLATWORK SUPERVISOR) Hemoglobin 9.7(L) 11.6 - 15.0 g/dL 07/13/2024 9:24 PM FLATWORK SUPERVISOR DTL Hematocrit 30.1(L) 35.5 - 44.9 % 07/13/2024 9:24 PM FLATWORK SUPERVISOR DTL Erythrocytes 3.32(L) 3.92 - 5.13 x10(12)/L 07/13/2024 9:24 PM FLATWORK SUPERVISOR DTL MCV 90.7 78.2 - 97.9 fL 07/13/2024 9:24 PM FLATWORK SUPERVISOR DTL RBC Distrib Width 15.3 12.2 - 16.1 % 07/13/2024 9:24 PM FLATWORK SUPERVISOR DTL Platelet Count 788(H) 157 - 371 x10(9)/L 07/13/2024 9:24 PM FLATWORK SUPERVISOR DTL Leukocytes 17.4(H) 3.4 - 9.6 x10(9)/L 07/13/2024 9:24 PM FLATWORK SUPERVISOR DTL Blood (Blood, Venous) 07/13/2024 8:14 PM FLATWORK SUPERVISOR 07/13/2024 9:16 PM FLATWORK SUPERVISOR us Lopez Garvey M.D. LAB BLOOD ADD-ON Final Resul t [facility] [place] [address] [place] [address], [facility] [address] [place] [address] documented in this encounter Visit Diagnoses Diagnosis Empyema Pleural (HCC)- Primary Empyema Pleural (HCC) Empyema Pleural (HCC) documented in this encounter Admitting Diagnoses Diagnosis Empyema Pleural (HCC) documented in this encounter Administered Medications Inactive Administered Medications - up to 3 most recent administrations Medication Order MAR Action Action Date Dose Rate Site acetaminophen tablet 1,000 mg (TylenoL) 1,000 mg, oral, Every 6 hours, First dose on 07/13/24 at 2100 Given 07/20/2024 8:40 AM FLATWORK SUPERVISOR 1,000 mg Given 07/20/2024 2:56 AM FLATWORK SUPERVISOR 1,000 mg Given 07/19/2024 8:36 PM FLATWORK SUPERVISOR 1,000 mg bisacodyL suppository 10 mg (Dulcolax) 10 mg, rectal, Every 12 hours PRN, constipation, Starting on Mon07/15/24 at 1849, If no bowel movement within 2 hours following magnesium hydroxide, do not give if patient has diarrhea. BUPivacaine 0.25 % (2.5 mg/mL) injection (Marcaine) As needed, Starting on Mon07/15/24 at 1615, Intra-Op Given 07/15/2024 4:15 PM FLATWORK SUPERVISOR [address] buPROPion XL 24 hr tablet 150 mg (Wellbutrin XL) 150 mg, oral, Daily, First dose on Mon07/14/24 at 0900, Swallow whole. Do NOT crush, chew, or split tablet. Given 07/20/2024 8:42 AM FLATWORK SUPERVISOR 150 mg Given 07/19/2024 8:39 AM FLATWORK SUPERVISOR 150 mg Given 07/18/2024 7:34 AM FLATWORK SUPERVISOR 150 mg buPROPion XL 24 hr tablet 300 mg (Wellbutrin XL) 300 mg, oral, Daily, First dose on 07/14/24 at 0900, Swallow whole. Do NOT crush, chew, or split tablet. Given 07/20/2024 8:41 AM FLATWORK SUPERVISOR 300 mg Given 07/19/2024 8:41 AM FLATWORK SUPERVISOR 300 mg Given 07/18/2024 7:36 AM FLATWORK SUPERVISOR 300 mg calcium carbonate chewable tablet 400 [...] 07/14/24 at 2100 Given 07/19/2024 8:37 PM FLATWORK SUPERVISOR 4.5 mg Given 07/18/2024 9:23 PM FLATWORK SUPERVISOR 4.5 mg Given 07/17/2024 8:24 PM FLATWORK SUPERVISOR 4.5 mg cefTRIAXone in dextrose (iso osm) IVPB 2 g (Rocephin) 2 g, intravenous, at 200 mL/hr, Administer over 15 Minutes, Every 24 hours, First dose on Mon07/17/24 at 1600, Drug Monitoring Program: Pharmacist to adjust medication dosing based on indication and drug clearance factors., Indications: empyemaIndications:empyema New Bag 07/20/2024 8:43 AM FLATWORK SUPERVISOR 2 g 200 mL/hr New Bag 07/19/2024 11:52 AM FLATWORK SUPERVISOR 2 g 200 mL/hr New Bag 07/18/2024 4:31 PM FLATWORK SUPERVISOR 2 g 200 mL/hr D5W infusion 1-999 mL/hr, intravenous, As needed, Medications Incompatible with 0.9% NaCL, Starting on Gloria 07/18/24 at 2034, Infuse at the same rate [...] feeding administration instructions. Given 07/20/2024 8:40 AM FLATWORK SUPERVISOR 60 mg Given 07/19/2024 8:40 AM FLATWORK SUPERVISOR 60 mg Given 07/18/2024 7:35 AM FLATWORK SUPERVISOR 60 mg heparin (porcine) injection 5,000 Units 5,000 Units, subcutaneous, Every 8 hours scheduled, First dose on Mon07/16/24 at 0600 Given 07/20/2024 5:49 AM FLATWORK SUPERVISOR 5,000 Units Right Upper Arm (Back) Given 07/19/2024 8:36 PM FLATWORK SUPERVISOR 5,000 Units L eft Upper Arm (Back) Given 07/19/2024 1:45 PM FLATWORK SUPERVISOR 5,000 Units L eft Upper Abdomen heparin (porcine) injection As needed, Starting on 07/15/24 at 1320, Intra-Op Given 07/15/2024 1:20 PM FLATWORK SUPERVISOR 5,000 Units Left Lower Abdomen ibuprofen tablet 400 mg 400 mg, oral, Every 6 hours PRN, moderate pain or score 4-6 of 10, severe pain or score 7-10 of 10, Starting on Mon07/19/24 at 2135, Take with food or milk if GI disturbances occur with use. Given 07/20/2024 5:49 AM FLATWORK SUPERVISOR 400 mg Given 07/19/2024 9:44 PM FLATWORK SUPERVISOR 400 mg ipratropium-albuteroL 0.5-2.5 mg/3 mL nebulizer solution 3 mL (DuoNeb) 3 mL, nebulization, 4 times daily PRN, shortness of breath, Starting on 07/13/24 at 1953 lidocaine 5 % 1 patch (Lidoderm) 1 patch, transdermal, Administer over 12 Hours, Daily at bedtime, First dose (after last modification) on Mon07/14/24 at 2100, Remove after 12 hours. Medication Applied 07/19/2024 8:37 PM FLATWORK SUPERVISOR 1 patch Left Upper Abdomen Medication Applied 07/18/2024 9:23 PM FLATWORK SUPERVISOR 1 patch Other Medication Applied 07/17/2024 8:25 PM FLATWORK SUPERVISOR 1 patch Flank LORazepam tablet 0.5 mg [...] Mon07/17/24 at 1604 Given 07/20/2024 5:49 AM FLATWORK SUPERVISOR 500 mg Given 07/19/2024 6:05 PM FLATWORK SUPERVISOR 500 mg Given 07/19/2024 10:43 AM FLATWORK SUPERVISOR 500 mg metroNIDAZOLE tablet 500 mg (FlagyL) 500 mg, oral, 3 times daily, First dose on Mon07/17/24 at 2100, Drug Monitoring Program: Pharmacist to adjust medication dosing based on indication and drug clearance factors., Indications: empyemaIndications:empyema Given 07/20/2024 8:42 AM FLATWORK SUPERVISOR 500 mg Given 07/19/2024 8:37 PM FLATWORK SUPERVISOR 500 mg Given 07/19/2024 1:46 PM FLATWORK SUPERVISOR 500 mg NaCl 0.9% infusion 1-999 mL/hr, [...] ondansetron before droperidol. Given 07/14/2024 3:56 AM FLATWORK SUPERVISOR 4 mg oxyCODONE IR tablet 10 mg (Roxicodone) 10 mg, oral, Every 4 hours PRN, severe pain or score 7-10 of 10, for breakthrough pain, Starting on 07/13/24 at 1953, Pain unrelieved by other oral analgesics. Given 07/20/2024 2:55 AM FLATWORK SUPERVISOR 10 mg Given 07/19/2024 3:03 AM FLATWORK SUPERVISOR 10 mg Given 07/18/2024 9:07 PM FLATWORK SUPERVISOR 10 mg oxyCODONE IR tablet 5 mg (Roxicodone) 5 mg, oral, Every 4 hours PRN, moderate pain or score 4-6 of 10, for breakthrough pain, Starting on 07/13/24 at 1953, Pain unrelieved by other oral analgesics. Given 07/20/2024 8:50 AM FLATWORK SUPERVISOR 5 mg Given 07/19/2024 6:05 PM FLATWORK SUPERVISOR 5 mg Given 07/19/2024 12:20 PM FLATWORK SUPERVISOR 5 mg polyethylene glycol powder packet 1 packet (Miralax) 1 packet, oral, Daily PRN, constipation, Starting on 07/13/24 at 1953, Dissolve in 240 mLs (8 ounces) of water prior to giving. Avoid mixing with starch-based thickened liquids. pregabalin capsule 200 mg (Lyrica) 200 mg, oral, 3 times daily, First dose on 07/13/24 at 2100 Given 07/20/2024 8:42 AM FLATWORK SUPERVISOR 200 mg Given 07/19/2024 8:37 PM FLATWORK SUPERVISOR 200 mg Given 07/19/2024 1:45 PM FLATWORK SUPERVISOR 200 mg prochlorperazine injection 5 mg (Compazine) 5 mg, intravenous, Every 6 hours PRN, nausea, vomiting, Starting on 07/13/24 at 1953 sennosides tablet 17.2 mg (Senokot) 17.2 mg, oral, Daily, First dose on 07/14/24 at 0900, Do not give if patient has diarrhea Given 07/19/2024 8:41 AM FLATWORK SUPERVISOR 17.2 mg Given 07/18/2024 7:35 AM FLATWORK SUPERVISOR 17.2 mg Given 07/17/2024 8:09 AM FLATWORK SUPERVISOR 17.2 mg sodium chloride 0.9 % injection [...] mL per lumen. Given 07/20/2024 9:12 AM FLATWORK SUPERVISOR 10 mL Given 07/19/2024 9:39 AM FLATWORK SUPERVISOR 10 mL Given 07/18/2024 9:24 PM FLATWORK SUPERVISOR 10 mL sodium chloride 0.9 % injection 20-60 mL 20-60 mL, intravenous, As needed, line care, Peripherally Inserted Central Catheter Non-Valved, Starting on Gloria 07/18/24 at 2034, Pior to and following blood sampling and post blood transfusion, flush 20 mL per lumen. documented in this encounter Active and Recently Administered Medications Times are shown in FLATWORK SUPERVISOR. Scheduled Medication Order 07/18/2024 07/19/2024 07/20/2024 acetaminophen [...] Isis Flaherty R.N.)0840 (Given - Provider: Malcolm A Bravo, R.N.) buPROPion XL 24 hr tablet 150 mg (Wellbutrin XL) 150 mg, oral, Daily, First dose on Mon07/14/24 [...] 2123 (Given - Provider: Myke Alexander R.N.) 2036 (Given - Provider: Isis Flaherty R.N.) cefTRIAXone [...] Leonard R.N.) 0840 (Given - Provider: Malcolm A Bravo, R.N.) 0840 (Given - Provider: Malcolm Cordon R.N.) heparin (porcine) injection 5,000 Units 5,000 Units, subcutaneous, Every 8 hours scheduled, First dose on Mon07/16/24 at 0600 0501 (Given - Provider: Mariluz Daniel R.N.)1357 (Given - Provider: Candi Leonard R.N.)2107 [...] Cordon R.N.)1346 (Given - Provider: Malcolm Cordon R.N.)2036 (Given [...] mL per lumen. 2124 (Given - Provider: Shalom M Wanyonyi, R.N.) 0939 (Given - Provider: Malcolm Cordon R.N.)2121 (Not Given - Provider: Isis Flaherty R.N. [...] 0.9% NaCL, Starting on Gloria 07/18/24 at 203, Infuse at the same rate as the [...] 1953 0243 (Given - Provider: Dandre Hollis RSelvin)0727 (Given - Provider: Candi Leonard R.N.) ibuprofen tablet 400 mg 400 mg, oral, Every 6 hours PRN, moderate pain or score 4-6 of 10, severe pain or score 7-10 of 10, Starting on Mon07/19/24 at 2135, Take with food or milk if GI disturbances occur with use. 2143 (Given - Provider: Isis Flaherty R.N.) 0553 (Given - Provider: Isis Flaherty R.N.) ipratropium-albuteroL 0.5-2.5 mg/3 mL nebulizer solution 3 mL (DuoNeb) 3 mL, nebulization, 4 times daily PRN, shortness of breath, Starting on 07/13/24 at 1953 ketorolac injection 15 mg (ToradoL) (CANCELED) 15 mg, intravenous, Every 6 hours PRN, moderate pain or score 4-6 of 10, Starting on Tu07/16/24 at 0950, For 5 days, Adult IV push rate: Over 15 seconds. Peds IV push rate: Over 1 minute. Doses > 15 mg IV/IM are discouraged due to lack of additional analgesic benefit. 0243 (Given - Provider: Dandre Hollis R.N.)1228 (Given - Provider: Roxanne PriestN.)2342 (Given - Provider: Roxanne HooverNDmitry) 0546 (Given - Provider: Roxanne HooverN.) LORazepam tablet 0.5 mg (Ativan) 0.5 mg, [...] 1604 1357 (Given - Provider: Candi Leonard RDmitryNDmitry)1941 (Given - Provider: Myke Alexander RSelvin) 0402 (Given - Provider: Tara Stout RDmitryN.)1043 (Given - Provider: Malcolm Cordon R.N.)1805 (Given - Provider: Malcolm Cordon RDmitryN.) 0551 (Given - Provider: Isis Flaherty RDmitryN.) NaCl [...] Fluid Volume), Starting on Gloria 07/18/24 at 5, For 7 days, Infuse at the same rate as the medication until tubing cleared of medication, then discard. naloxone injection 0.2 mg (Narcan) 0.2 mg, intravenous, As needed, respiratory depression, Starting on 07/13/24 at 195, For RASS Score -4 or less, respiratory rate of less than 8 breaths/min. Notify provider/service and rapid response team (if available at institution). ondansetron (PF) injection 4 mg (Zofran) 4 mg, intravenous, Every 6 hours PRN, nausea, vomiting, Starting on 07/13/24 at 1952, Use ondansetron before droperidol. oxyCODONE IR tablet 10 mg (Roxicodone)(Linked Group 1) 10 mg, oral, Every 4 hours PRN, severe pain or score 7-10 of 10, for breakthrough pain, Starting on 07/13/24 at 1952, Pain unrelieved by other oral analgesics. 0044 (Given - Provider: Dandre Hollis RDmitryN.)0501 (Given - Provider: Mariluz Daniel R.N.)1646 (Given - Provider: Candi Leonard R.N.)2107 (Given - Provider: Myke Alexander RAlexi.) 0301 (See Alternative - Provider: Myke Alexander R.N.)0303 (Given - Provider: Myke Alexander R.N.)0840 (See Alternative - Provider: Malcolm Cordon RSelvin)1220 (See Alternative - Provider: Malcolm Cordon R.Linda.)1805 (See Alternative - Provider: Malcolm Cordon R.N.) 0255 (Given - Provider: Roxanne GiffordN.)0850 (See Alternative - Provider: Malcolm Cordon R.N.) oxyCODONE IR tablet 5 mg (Roxicodone)(Linked Group 1) 5 mg, oral, Every 4 hours PRN, moderate pain or score 4-6 of 10, for breakthrough pain, Starting on 07/13/24 at 1952, Pain unrelieved by other oral analgesics. 0044 (See Alternative - Provider: Dandre Hollis RDmitryNDmitry)0501 (See Alternative - Provider: Mariluz Daniel R.N.)1646 (See Alternative - Provider: Candi Leonard R.N.)2107 (See Alternative - Provider: Eleazar Hoover.N.) 0301 (Not Given - Provider: Myke Alexander R.N. - Reason: Other - Comment: see alt)0303 (See Alternative - Provider: Myke Alexander RAlexi.)0840 (Given - Provider: Malcolm Cordon RDmitryN.)1220 (Given - Provider: Malcolm Cordon R.N.)1805 (Given - Provider: Malcolm Cordon R.N.) 0255 (See Alternative - Provider: Isis Flaherty R.N.)0850 (Given - Provider: Malcolm Cordon RDmitryN.) polyethylene glycol powder packet 1 packet (Miralax) [...] 1953, Pain unrelieved by other oral analgesics. Or oxyCODONE IR tablet 10 mg (Roxicodone)Jump to med 10 mg, oral, Every 4 hours PRN, severe pain or score 7-10 of 10, for breakthrough pain, Starting on 07/13/24 at 1953, Pain unrelieved by other oral analgesics. documented in this encounter Additional Health Concerns Assessment Noted Time PHQ-9 Depression Total Score: 22 025 7:19 PM FLATWORK SUPERVISOR documented as of this encounter Care Teams Wheel Borer Relationship Specialty Start Date End Date Prudence Mena MPAS, P.A.-C. [address] [place] [phone] PCP - General Internal Medicine 02/08/24 documented as of this encounter
--- OUTSIDE RECORDS SUMMARY | 2024-08-28 18:18 | XMS_ITS | Encounter Summary ---
Author Organization [facility] Address [address] [place] [address] Care Team Providers Care Vascular Surgeon Name Role Phone Prudence Mena P.A.-C. Primary Care Pro vider Encounter Details Date Type Department Care Team (Late st Contact Info) Description 07/19/2024 Clinical Communication Division of Thoracic Surgery in [place], [place] [address] [place] [phone] Melinda Isaac, FRED, C.N.P. [address] [place] [phone] Social History Tobacco Use Types Packs/Day Years Used Date Smoking Tobacco: Former Cigarettes 1.5 0.2 S tarted: 06/21/2024 Passive Smoke Exposure: Past Smokeless Tobacco: Never Alcohol Use Standard Drinks/Week Comments Yes 0 (1 standard drink = 0.6 oz pur e alcohol) socially [facility] Utilities Answer Date Recorded In the past 12 months has [employer], gas, oil, or water [employer] threatened to shut off services in your [...] How often do you attend religious or nondenominational serv ices? 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 [address] [place] [phone] documented as of this encounter Visit Diagnoses Not on filedocumented in this encounter Additional Health Concerns Assessment Noted Time PHQ-9 Depression Total Score: 22 025 7:19 PM WIND TUNNEL ENGINEER documented as of this encounter Care Teams Vascular Surgeon Relationship Specialty Start Date End Date Prudence Mena MPAS, P.A.-C. [address] [place], [place] [address], [place] [phone] PCP - General Internal Medicine 02/08/24 documented as of this encounter
--- OUTSIDE RECORDS SUMMARY | 2024-08-28 18:18 | XMS_ITS | Encounter Summary ---
Author Organization [facility] Address [address] [place] [id number] Care Team Providers Care Lead Net Software Developer Name Role Phone Prudence Mena P.A.-C. Primary Care Pro vider Reason for Referral * Outpatient (Routine) - Closed Specialty Diagnoses / Procedures Referred By Contac t Referred To Contact Diagnoses Empyema Pleural (HCC) Procedures Perform central lockstitch waistline joiner: Flush port(s), Site care Melinda Isaac APRN, C.N.P. [address] [place] [phone] Phone: tel: fax: [facility] Region Referral ID Status Reason Start Date Expiration Date Visits Re quested Visits Authorized [id number] Closed 07/19/2024 07/19/2025 1 1 SMITH * Outpatient (Routine) - Closed Specialty Diagnoses / Procedures Referred By Contac t Referred To Contact Diagnoses Empyema Pleural (HCC) Procedures Perform central lockstitch waistline joiner: Site care, Flush port(s) Melinda Isaac APRN, C.N.P. [address] [place] [phone] Phone: tel: fax: [facility] Region Referral ID Status Reason Start Date Expiration Date Visits Re quested Visits Authorized [id number] Closed 07/19/2024 07/19/2025 1 1 SMITH * Outpatient (Routine) - Closed Specialty Diagnoses / Procedures Referred By Contac t Referred To Contact Thoracic Surgery Melinda Isaac APRN, C.N.P. [address] [place] [phone] Phone: tel: fax: [facility] Referral ID Status Reason Start Date Expiration Date Visits Re quested Visits Authorized [id number] Closed 07/19/2024 01/18/2026 1 1 SMITH * Outpatient (Routine) - Closed Specialty Diagnoses / Procedures Referred By Contac t Referred To Contact Diagnoses Empyema Pleural (HCC) Procedures DX Chest AP or PA and Lateral 2 Views Melinda Isaac APRN, C.N.P. [address] [place] [phone] Phone: tel: fax: [facility] Referral ID Status Reason Start Date Expiration Date Visits Re quested Visits Authorized [id number] Closed 07/19/2024 07/19/2025 1 1 SMITH Reason for Visit * Auth/Cert (Routine) Specialty Diagnoses / Procedures Referred By Contac t Referred To Contact Diagnoses Empyema Pleural (HCC) Pleuritic chest pain. empyema Procedures INPT Referral ID Status Reason Start Date Expiration Date Visits Re quested Visits Authorized [id number] 1 1 Encounter Details Date Type Department Care Team (Latest Contact Info) Description 07/13/2024 7:53 PM LOCKSMITH - 07/20/2024 10:16 AM LOCKSMITH Hospital Encounter [facility], Tenth Floor [address] [place] [phone] Patrick Mtz M.D., Ph.D. [address] [place] [phone] Empyema Pleural (HCC) (Primary Dx) Discharge Disposition: [...] In the past 12 months has e [employer], gas, oil, or water [employer] threatened to shut off services in your [...] How often do you attend tenriism or taoist serv ices? Never 07/27/2022 Do [...] Answer Date Recorded PHQ-2 Score 6 07/10/2024 [facility] Occupat ional [facility] - Occupational Stress Questionnaire Answer Date Recorded [...] Comments Blood Pressure 146/104 07/20/2024 8:45 AM LOCKSMITH Pulse 92 07/20/2024 9:00 AM LOCKSMITH Temperature 36.6 C (97.9 F) 07/20/2024 8:45 AM LOCKSMITH Respiratory Rate 16 07/20/2024 8:45 AM LOCKSMITH Oxygen Saturation 93% 07/20/2024 9:00 AM LOCKSMITH Inhaled Oxygen Concentration - - Weight 99.7 kg (219 lb 12.8 oz) 07/17/2024 7:14 PM LOCKSMITH Height 163 cm (5' 4.17) 07/17/2024 3:00 PM LOCKSMITH Body Mass Index 37.53 07/17/2024 3:00 PM LOCKSMITH documented in this encounter Functional Status * Intimate Partner Violence Question Answer Date of Assessment Author Within the last year, have y ou been humiliated or emotionally abused in other ways by your partner or ex-partner? No 07/15/2024 8:00 PM LOCKSMITH Helena Brady, R.N. Within the last year, have y ou been afraid of your partner or ex-partner? No 07/15/2024 8:00 PM LOCKSMITH Helena Brady, R.N. Within the last year, have y ou been raped or forced to have any kind of sexual activity by your partner or ex-partner? No 07/15/2024 8:00 PM LOCKSMITH Helena Brady, R.N. Within the last year, have y ou been kicked, hit, slapped, or otherwise physically hurt by your partner or ex-partner? No 07/15/2024 8:00 PM LOCKSMITH Helena Brady R.N. documented as of this encounter Discharge Summaries * Shahram Abernathy APRN, C.N.P., M.S. - 07/20/2024 10:16 AM CST DISCHARGE SUMMARY BRIEF OVERVIEW Hospital: [facility] Discharge Provider: Patrick Mtz M.D. Primary Team: [facility] Thoracic Surgery - Smith Primary Care Providers: Prudence Mena MPAS, P.A.-C. (General) [address] [facility] [phone] Primary Care Provider Primary Care Provider Other [...] INDICATED. Patrick Mtz M.D., Ph.D.Catrina Sutton M.D. [facility] OR DISCHARGE DISPOSITION Home [...] with any questions or issues. Admin Ast: [phone] (M-F 8 AM to 5 PM) Superintendent Greens: [phone] (Thoracic Surgery Landscape Architect for Nights & Weekend Urgent Issues) Appointments: [phone] INFECTIOUS DISEASES THERAPY RECOMMENDATIONS Antimicrobial plan: Patient [...] of Infectious Diseases OPAT monitoring program at [phone]. Should patient be enrolled in OPAT/COPAT program: [...] 10 Appointments 07/21/2024 9:[address] [facility] 02 INF Infusion Therapy 07/22/2024 9:00 AM CHAIR 05 [facility] 02 INF Infusion Therapy 07/23/2024 9:00 AM CHAIR 05 [facility] 02 INF Infusion Therapy 07/24/2024 9:00 AM CHAIR 03 [facility] XX INF Infusion Therapy 07/25/2024 9:00 AM CHAIR 05 [facility] 02 INF Infusion Therapy 07/26/2024 9:00 AM CHAIR 05 [facility] 02 INF Infusion Therapy 07/27/2024 9:[address] [facility] 02 INF Infusion Therapy 07/28/2024 9:[address] [facility] 02 INF Infusion Therapy 07/29/2024 10:00 [...] female who was a direct admission from [facility] on for a left-sided empyema. She [...] ROUTINE Pleural Fluid, Left Collected By: Patrick Mzt M.D., Ph.D. 07/15/2024 2:32PM Should the communication [...] discharge services today: greater than 30 minutes. SMITH documented in this encounter Discharge Instructions * Attachments The following attachments cannot be sent through Care Everywhere. * Acute Pain and the Healing Process * Ceftriaxone (By injection) (Armenian) * Ibuprofen (By mouth) (Armenian) * Methocarbamol (By mouth) (Armenian) * Metronidazole (By mouth) (Armenian) * Oxycodone, Rapid Release (By mouth) (Armenian) * Laxative, Stimulant (By mouth) (Armenian) documented in this encounter Medications at Time [...] a venous catheter daily for 17 days. [facility] 07/19/2024 5 methocarbamoL (Robaxin) 500 mg tablet Take 1 tablet (500 mg total) by mouth 3 (three) times a day as needed for muscle spasms. 45 tablet 07/20/2024 10:13 AM LOCKSMITH 07/19/2024 5 metroNIDAZOLE (FlagyL) 500 mg tabletIndication s:Empyema Take 1 tablet (500 mg total) by mouth 3 (three) times a day for 17 days Indications: Empyema. 51 tablet 07/20/2024 10:13 AM LOCKSMITH 07/19/2024 5 nitrofurantoin (MACRODANTIN) 50 mg capsule [...] Pain Exception. 28 tablet 07/20/2024 10:13 AM LOCKSMITH 07/19/2024 5 sennosides (senna) 8.6 mg tablet [...] Discharge today Patient discussed with Dr. Mtz. SMITH * Denny Ann R.R.T., L.R.T. - 07/20/2024 [...] Denny Ann R.R.T., L.R.T. 07/20/24 7:32 AM LOCKSMITH SMITH * Kusum Urena R.R.T., L.R.T. - 07/19/2024 [...] Kusum Urena R.R.T., Christian 07/19/24 1:54 PM LOCKSMITH SMITH * Lopez Garvey M.D. - 07/19/2024 12:18 [...] Encourage ambulance Patient discussed with Dr. Mtz. SMITH * Arlyn Starr R.R.T., L.R.T. - 07/18/2024 12:39 PM CST 07/18/24 1238 Pulmonary Rehab Pulmonary Rehab Patient Evaluation Pulmonary rehabilitation ordered;Chart and history reviewed Monitored Exercise Session Details see note $Monitored Exercise Session 15 minutes Inpatient Pulmonary Rehab: Follow-up Needed Yes Inpatient Pulmonary Rehab: Next Date 01/17/25 Inpatient Pulmonary Rehab: Patient to be Seen [...] Arlyn Starr R.R.T., L.R.T. 07/18/24 12:39 PM LOCKSMITH SMITH SMITH * Anna Wheeler - 07/18/2024 12:26 PM CST Clinical Nutrition: Initial Assessment RECOMMENDATIONS REQUIRING MD/PROVIDER ORDER No changes at this time; continue current nutrition orders For questions about patient's nutritional care please contact pager [phone] on weekdays or [phone] on weekends/holidays. NUTRITION ASSESSMENT: Ms. Kumar is [...] from outside of the hospital such as [facility] and [employer]. She currently feels likes [...] patient report. ESTIMATED NEEDS: Total Calorie Needs: 3970-3304 calories/day Method to Estimate Energy Needs: Rankin-St Jeor ( ) Weight Used for Equation Calculations: 96 kg Total Protein Needs: 77 - 96 grams/day Method to Estimate Protein Needs (g/kg): 0.8 - 1 gm/kg Weight Used to Calculate Protein Needs (Kg): 96 kg Nutrition Diagnosis: Clinical risk not noted Nutrition Intervention: Medical food supplement Monitoring/Evaluation: Nutrition parameter to monitor: Meals/Supplement Intake, Weight Status SMITH * Patrick Mtz M.D., Ph.D. - 07/18/2024 10:56 AM CST I visited face to face with the patient on NT10 this morning. We will obtain an updated chest x-raywith a view towards removing 1 of her chest tubes today. We will follow the recommendations of our Infectious Disease colleagues regarding ongoing antibiotic management. SMITH * Magno Fisher, Ph.D. - 07/18/2024 8:59 [...] Encourage ambulance Patient discussed with Dr. Mtz. SMITH * Kayleigh Small M.D. - 07/18/2024 8:24 [...] Please page the ICU-ID service pager at [phone] with questions. Thank you for the consultation. Discussed with Dr. Camejo, ID retirement sales consultant and the primary team. Kayleigh Small [...] of Infectious Diseases OPAT monitoring program at [phone]. Should patient be enrolled in OPAT/COPAT program: [...] Camejo M.D., M.S. at 07/18/2024 1:06 PM LOCKSMITH SMITH SMITH Associated attestation - Hay Camejo M.D., M.S. - 07/18/2024 1:06 PM LOCKSMITH I saw and evaluated the patient, participating [...] completed. Electronically signed by: Montrell Garland R.R.T., L.R.T. 07/17/24 1:04 PM LOCKSMITH SMITH * Lopez Garvey M.D. - 07/17/2024 9:19 [...] spirometer Discussed with Dr. [place] Garvey MD SMITH * Jarocho Belle, R.Ph. - 07/16/2024 1:12 PM CST Pharmacokinetic Consult - Vancomycin Dosing Melinda Kumar is a 39 y.o. female who has received a pharmacy consult for vancomycin therapyfor dose optimization and monitoring. Indication: Respiratory tract infection, healthcare associated Goal trough: 10-15 mcg/mL OBJECTIVE There is no height or weight on file to calculate BMI. [place] body weight: 55.1 kg Adjusted ideal body [...] patient's clinical progress daily. Jarocho Belle, R.Ph. SMITH * Gema Srinivasan R.R.T., L.R.T. - 07/16/2024 [...] tolerated. Electronically signed by: Gema Srinivasan R.R.T., MarcellusRDmitryTDmitry 07/16/24 11:34 AM LOCKSMITH SMITH * Lopez Garvey M.D. - 07/16/2024 9:46 AM CST Ms. Kumar is POD 1 from left robotic decortication, 2 chest tubes were left in place Patient is afebrile and hemodynamically stable. She had a DATA ENTRY TECHNICIAN started overnight for pain control. She otherwise [...] spirometer Discussed with Dr. Smith Garvey MD SMITH * Patrick Mtz M.D., Ph.D. - 07/16/2024 [...] female who was a direct admission from [facility] on for a left-sided empyema. Patient [...] female who was a direct admission from [facility] on for a left-sided empyema. She will be proceeding to the operating room tomorrow for left VATS decortication. Plan: -continue IV antibiotics -OR today Discussed with Dr. [place] Garvey MD SMITH * Lopez Garvey M.D. - 07/14/2024 9:00 AM CST Ms. Kumar is a 39-year-old female who was a direct admission from [facility] on for a left-sided empyema. Patient reports feeling well this morning she continues to have pleuritic chest pain. She otherwiseis saturating well on 1 L nasal cannula. She was able to tolerate oral intake yesterday. She remains to be hemodynamically stable and afebrile. Her labs are notable for a hemoglobin 9.7, white bloodcell count of 17.4, creatinine 0.57. She also received a chest x-ray that demonstrated a left-sidedpleural effusion. Recent Results (from the past 24 [...] female who was a direct admission from [facility] on for a left-sided empyema. She will be proceeding to the operating room tomorrow for left VATS decortication. Plan: -continue IV antibiotics -regular diet today, NPO at midnight -continue pain control -patient has listed, will be consented and site marked for operating room tomorrow Discussed with Dr. [place] Garvey MD SMITH * Maxim Freed Pharm.DDmitry, R.Ph., BCPS - 07/14/2024 8:27 AM CST Images from the original note were not included. Pharmacist Progress Note Reason for admission: direct admission from [facility] on July 13 for a left-sided [...] continue to follow for medicationuse optimization Ken Freed, PharmDmitryD., R.Ph., BCPS Admission Medication History Note Adherence issues: Ran out of chronic suppression nitrofurantoin more than one month ago Medication list source: Patient, recent filling Hx Medication related information: pt is ok to do without dextroamphetamine 15 mg ER and Adderall 10 mg while hospitalized Prior to Admission Medications Med List Status: Pharmacy Complete Set By: Maxim Freed, PharmWashington, R.Ph., BCPS at 07/14/2024 8:25AM Taking? Last [...] Order Patient stated she needs to picker packer DULoxetine (CYMBALTA) [address] capsule 07/13/2024 [...] information available at the time of documentation. SMITH documented in this encounter H&P Notes * Lopez Garvey M.D. - 07/13/2024 7:38 PM CST History and Physical SUBJECTIVE Chief Complaint:pleuritic chest pain HPI: Melinda Kumar is a 39 y.o. female with a past medical history significant for fibromyalgia, chronic back pain, asthma, sleep apnea, hypertension, depression who was directly admitted for left empyema. Patient presented at the end of June to [facility] initially with pneumonia, following influenza A [...] to worsening symptoms she presented again to [facility] where she underwent a CT scan [...] AGENT; Surgeon: Yobany Soares M.D., Ph.D.; Location: [facility] OR HYDRODISTENSION BLADDER WITH CYSTOSCOPY N/A 06/30/2023 Procedure: HYDRODISTENSION BLADDER WITH CYSTOSCOPY; Surgeon: Yobany Soares M.D., Ph.D.; Location: [facility] OR INJECTION BOTOX Bilateral 06/30/2023 Procedure: INJECTION BOTOX PELVIC FLOOR; Surgeon: Yobany Soares M.D., Ph.D.; Location: [facility] OR OTHER SURGICAL HISTORY 10/2017 Hysterectomy that [...] Order Patient stated she needs to picker packer), Disp: 1 each, Rfl: 0 DULoxetine (CYMBALTA) [...] room Discussed with Dr. [place] Garvey MD SMITH documented in this encounter Procedure Notes * Rayo Finch R.N. - 07/18/2024 8:43 PM CSTAssociated Order(s): Place peripherally inserted central catheter (PICC) Place peripherally inserted central catheter (PICC) Performed by: Rayo Finch R.N. Authorized by: Eveline Mariscal, P.A.-C. Care team members present 1. Rayo Finch R.N. 2. Chas Torrez VA-BC RSelvin, MARLINE PROCEDURE DETAILS Select line: PICC Line [...] with ultrasound and measured to ensure appropriate lmcckmlw-aq-bhso ratio of 45% or less: Right Basilic [...] to release the adhesive from the skin. [email or web address] SMITH documented in this encounter Consult Notes * Karen Wilkerson M.SAnton., LShaan.S.W. - 07/18/2024 12:33 PM CSTAssociated Order(s): IP CONSULT TO CARE MANAGEMENT Psychosocial Assessment SUBJECTIVE ASSESSMENT INFORMATION Referral Data Referral Source: POLEYARD SUPERVISOR/PA Referral Reason: Psychosocial assessment, Discharge Planning Previous Assessment: No Slots Manager Services Used: No Primary Language: Armenian Slots Manager Services Used: No Sexuality/Pronoun: Straight / Person(s) [...] PRESENT ILLNESS Patient is [facility] Patient shares that she cameto the hospital for Pneumonia. SOCIAL HISTORY Family / Household: Patient reports living in a multi level town home with her 4 sons ages 17, 17, 15 and 10. Support System: 4 children and family in [place] Spirituality/Restorationist/Cultural Factors: None History: No Employment: disabled Psychosocial [...] Communication: Can write, Talks, Understands speaking, Understands Armenian Shopping: Needs assistance Medication Management: Independent Housekeeping: Needs assistance Meal Prep: Independent Assistive Devices: None BASELINE SERVICES/RESOURCES Primary care clinic and provider: [facility] Services/Resources: No services or resources prior to [...] current substance use. ASSESSMENT / PLAN DISCUSSION Financial Institution Branch Manager met with patient in hospital room to provide a supportive visit, complete a psychosocial, and assist with discharge needs. Introduced self and reviewed role of inpatient Social Work, including legal responsibility as a mandated cub reporter. Patient expressed understanding of the purpose of [...] our ownership and financial relationship of the [facility] beds, home health, and hospice agencies. Reviewed [facility] medicaid insurance coverage and provided in-network options. Patient anticipates discharging home once medically ready without patient infusions at [facility]. Patient reports no further questions currently. Encouraged patient to contact Financial Institution Branch Manager should additional needs arise. thermometer production worker returned to inform patient that community health is not open on weekends and that she willneed to go to [place]. Patient was agreeable to this. Patient's mother was in the room and shared that she had a question for social media coordinator. Patient's mother asked about help with cleaning around the home. thermometer production worker explained the [place] assessment through the [...] building Solution focused Education provided regarding the [place] LinkAge Line. The Patient was not provided due to not being a [place] resident and/or 60 + years old. PLAN Outpatient infusions will be obtained through: [facility] Monday- Monday and [facility] on Weekends. Phone for scheduling- [phone] Phone for [phone] NURSING: - Call to arrange for the patient???s first visit Prior to 3 pm Monday if Discharging over the weekend. - Adjust the dosing schedule to accommodate PSYCHIATRIC schedule. - Complete documentation in the Discharge Navigator including Nursing Report Info and Facility/NextLevel of Care Info PRIMARY SERVICE: - Complete infusion therapy and lab orders in Epic as needed. - Identify the continuing care provider, who will follow the patient while receiving outpatient infusion at [facility]. Social Work : -Will continue to follow. Anticipated barriers to the transition of care/plan: None identified at this time. Destiny Gonzales, MarcellusI.C.S.W. 07/18/2024 SMITH SMITH * Kayleigh Small M.D. - 07/17/2024 10:59 [...] empyema. Interval history includes initial presentation to [facility] ED 06/26/2024 and was prescribed azithromycin and prednisone for walking pneumonia. She was admitted to [facility] 06/30/2024-07/04/2024 with sepsis secondary to left lower lobe pneumonia and was treated with IV antibiotics and IV steroid. She was discharged on 07/04/2024 on oral antibiotics (doxycycline for 5 days. After d ischarge patient continued continued to have shortness of breath and left pleuritic chest pain. Dueto worsening in symptoms she presented again to [facility] where she underwent CT chest which showed worsening left pleural effusion and [facility]pyema. [facility] She underwent left robotic [...] - Date/Time Bacterial Culture, Anaerobic + Susceptibility [[id number]] Collected: 07/15/24 1600 Lab Status: Preliminary result Specimen: Tissue from Pleura, Left Updated: 07/17/24 0739 Bacterial Culture, Anaerobic + Susc No growth to date. Fungal Culture, Routine [[id number]] Collected: 07/15/24 1600 Lab Status: In process Specimen: Tissue from Pleura, Left Updated: 07/15/24 1720 Gram Stain [[id number]] Collected: 07/15/24 1600 Lab Status: Final result Specimen: Tissue from Pleura, Left Updated: 07/15/24 2218 Gram Stain No organisms seen. White blood cells, Many Acid Fast Smear for Mycobacterium [[id number]] Collected: 07/15/24 1600 Lab Status: Final result Specimen: Tissue from Pleura, Left Updated: 07/15/24 2218 Acid Fast Smear For Mycobacterium Negative. Legionella Culture [[id number]] Collected: 07/15/24 1600 Lab Status: Preliminary result Specimen: Tissue from Pleura, Left Updated: 07/17/24 0754 Legionella Culture No growth to date. Fungal Smear [[id number]] Collected: 07/15/24 1600 Lab Status: Final result Specimen: Tissue from Pleura, Left Updated: 07/16/24 0852 Fungal Smear Negative. Mycobacterial Culture [[id number]] Collected: 07/15/241599 Lab Status: In process Specimen: Tissue from Pleura, Left Updated: 07/15/24 1720 Actinomyces Culture [[id number]] Collected: 07/15/24 1600 Lab Status: Preliminary result Specimen: Tissue from Pleura, Left Updated: 07/17/24 0739 Actinomyces Culture No growth to date. Bacterial Culture, Aerobic + Susceptibility [[id number]] Collected: 07/15/24 1600 Lab Status: Preliminary result Specimen: Tissue from Pleura, Left Updated: 07/17/24 0847 Bacterial Culture, Aerobic + Susc No growth to date. Fungal Culture, Routine [[id number]] Collected: 07/15/241423 Lab Status: In process Specimen: Pleural Fluid, Left Updated: 07/15/24 1519 Narrative: Bacterial Culture: Placed in Bactec aerobic and Bactec anaerobic bottles Gram Stain [[id number]] Collected: 07/15/241423 Lab Status: Final result Specimen: Pleural Fluid, Left Updated: 07/15/242001 Gram Stain No organisms seen. White blood cells, Moderate Narrative: Bacterial Culture: Placed in Bactec aerobic and Bactec anaerobic bottles Acid Fast Smear for Mycobacterium [[id number]] Collected: 07/15/241423 Lab Status: Final result Specimen: Pleural Fluid, Left Updated: 07/15/24 2125 Acid Fast Smear For Mycobacterium Negative. Narrative: Bacterial Culture: Placed in Bactec aerobic and Bactec anaerobic bottles Fungal Smear [[id number]] Collected: 07/15/24 142 Lab Status: Final result Specimen: Pleural Fluid, Left Updated: 07/15/24 1925 Fungal Smear Negative. Narrative: Bacterial Culture: Placed in Bactec aerobic and Bactec anaerobic bottles Mycobacterial Culture [[id number]] Collected: 07/15/24 142 Lab Status: In process Specimen: Pleural Fluid, Left Updated: 07/15/24 1519 Narrative: Bacterial Culture: Placed in Bactec aerobic and Bactec anaerobic bottles Bacterial Culture, Aerobic + Susceptibility [[id number]] Collected: 07/15/24 1424 Lab Status: Preliminary result Specimen: Pleural Fluid, Left Updated: 07/17/24 0847 Bacterial Culture, Aerobic + Susc No growth to date. Narrative: Bacterial Culture: Placed in Bactec aerobic and Bactec anaerobic bottles Staph aureus / MRSA, Nasal, PCR [[id number]] Collected: 07/14/24 1039 Lab Status: Final result [...] Please page the ICU-ID service pager at [phone] with questions. Thank you for the consultation. Discussed with Dr. Camejo, ID retirement sales consultant and the primary team. Kayleigh Small M.D. Infectious Diseases Fellow Cosigned by Hay Camejo M.D., M.S. at 07/17/2024 2:43 PM LOCKSMITH SMITH SMITH Associated attestation - Hay Camejo M.D., M.S. - 07/17/2024 2:43 PM LOCKSMITH I saw and evaluated the patient, participating [...] If some point, she was admitted to [facility] at the end of June for [...] Goal: Maintain a safe environment Outcome: Progressing SMITH * Malcolm Cordon R.N. - 07/19/2024 4:47 [...] DC home tomorrow (07/20). Malcolm Cordon R.N. SMITH * Shawna Little R.N., C.M.SHumaNDmitry - 07/17/2024 10:01 PM CST Shift Goals: Clinical Goals for the Shift: Pt will state pain is tolerable after discontinuing DATA ENTRY TECHNICIAN. Identify possible barriers to meeting goals/advancing plan [...] pain 6-9/10 during shift. Ice pack utilized. DATA ENTRY TECHNICIAN DC'd. Scheduled Tylenol given. PRN oxycodone, Robaxin [...] SATS above 90% Encouraged incentive spirometer use. SMITH * Bhumi Chawla R.N. - 07/17/2024 5:43 AM CST Shift Goals: Clinical Goals for the Shift: Patient will get adequate rest overnight and report good pain control Identify possible barriers to meeting goals/advancing plan of care: None End of Shift Summary: Sasha slept well overnight in between cares. Pain controlled with DATA ENTRY TECHNICIAN, PRN Robaxin and scheduled tylenol. She ambulated [...] Achieves optimal ventilation and oxygenation Outcome: Progressing SMITH * Diane Blevins R.N. - 07/15/2024 1:15 PM CST Patient came to OR with personal belongings including 4 earrings and 1 ring/piercing. Sent with patient on chart. Roxanne Blevins RN SMITH * Candi Leonard R.N. - 07/15/2024 6:24 [...] Absence of infection during hospitalization Outcome: Progressing SMITH * Helena Brady RDmitryN. - 07/14/2024 6:41 PM CST Shift Goals: [...] Goal: Patient discharge needs identified Outcome: Progressing SMITH documented in this encounter OR Notes * Op Note - Catrina Sutton M.D. - 07/15/2024 2:11 PM CST Pre-op Diagnosis Empyema Pleural (HCC) Post-op Diagnosis Empyema Pleural (HCC) Customer Care Manager A geriatric assistant actively participated and was necessary for [...] Mtz M.D., Ph.D. at 07/17/2024 8:18 AM LOCKSMITH SMITH SMITH * Brief Op Note - Catrina Sutton M.D. - 07/15/2024 2:11 PM LOCKSMITH Pre-op Diagnosis Empyema Pleural (HCC) Post-op Diagnosis Empyema Pleural (HCC) Findings Multiple adhesions and pockets of pus involving the pleura, lower lobe and diaphragm Complications None Catrina Cole M.D. SMITH documented in this encounter Miscellaneous Notes * Hospital Course - Melinda Isaac APRN, C.N.P. - 07/16/2024 8:03 AM LOCKSMITH Ms. Kumar is a 39-year-old female who was a direct admission from [facility] on for a left-sided empyema. She [...] a general diet, and voiding without difficulty. SMITH SMITH SMITH SMITH SMITH SMITH SMITH SMITH SMITH SMITH documented in this encounter Plan of Treatment Upcoming Encounters Date Type Department Care Team (Late st Contact Info) Description 08/30/2024 9:00 AM LOCKSMITH Office Visit Department of [facility] in [place], [place] [address] [place] [address] Prudence Mena MPAS, P.A.-C. [address] [place] [address] Scheduled Orders Name Type Priority Associated Diagnoses Orde r Schedule Perform central lockstitch waistline joiner: Site care, Flush port(s) Procedures Routine Empyema Pleural (HCC) Expected: 07/22/2024, Expires: 10/17/2025 Perform central lockstitch waistline joiner: Flush port(s), Site care Procedures Routine Empyema [...] inpatients and all outpatients) 07/19/2024 1:04 PM LOCKSMITH NOCTURNAL OXYGEN STUDY - RT Routine 07/19/2024 12:24 PM LOCKSMITH DX CHEST AP OR PA AND LATERAL 2 VIEWS RAD - Routine (most inpatients and all outpatients) 07/19/2024 9:10 AM LOCKSMITH ADULT OXYGEN THERAPY Routine 07/19/2024 8:01 AM LOCKSMITH CBC WITHOUT DIFFERENTIAL, B Routine 07/19/2024 6:02 AM LOCKSMITH BASIC METABOLIC PANEL, S/P Routine 07/19/2024 6:[address] PERIPHERALLY INSERTED CENTRAL CATHETER (PICC) Routine 07/18/2024 8:43 PM LOCKSMITH ADULT OXYGEN THERAPY Routine 07/18/2024 8:01 PM LOCKSMITH DX CHEST AP OR PA AND LATERAL 2 VIEWS RAD - Routine (most inpatients and all outpatients) 07/18/2024 10:15 AM LOCKSMITH ADULT OXYGEN THERAPY Routine 07/18/2024 8:00 AM LOCKSMITH ADULT OXYGEN THERAPY Routine 07/17/2024 8:01 PM LOCKSMITH HIV-1/-2 AG AND AB SCREEN, PLASMA Routine 07/17/2024 5:05 PM LOCKSMITH ADULT OXYGEN THERAPY Routine 07/17/2024 8:01 AM LOCKSMITH ADULT OXYGEN THERAPY Routine 07/16/2024 8:01 PM LOCKSMITH RESPIRATORY ASSESS AND TREAT Routine 07/16/2024 2:00 PM LOCKSMITH VANCOMYCIN, TROUGH, S Timed 07/16/2024 10:31 AM LOCKSMITH ADULT OXYGEN THERAPY Routine 07/16/2024 8:01 AM LOCKSMITH ADULT OXYGEN THERAPY Routine 07/15/2024 8:01 PM LOCKSMITH ADULT OXYGEN THERAPY Routine 07/15/2024 6:49 PM LOCKSMITH ADULT OXYGEN THERAPY Routine 07/15/2024 6:49 PM LOCKSMITH ADULT OXYGEN THERAPY Routine 07/15/2024 6:49 PM LOCKSMITH DX CHEST 1 VIEW RAD - Routine (most inpatients and all outpatients) 07/15/2024 4:51 PM LOCKSMITH BACTERIAL CULTURE, AEROBIC + SUSC Routine 07/15/2024 4:00 PM LOCKSMITH Empyema Pleural (HCC) ACTINOMYCES CULTURE Routine 07/15/2024 4 :00 PM LOCKSMITH Empyema Pleural (HCC) MYCOBACTERIAL CULTURE, V Routine 07/15/2024 4:00 PM LOCKSMITH Empyema Pleural (HCC) FUNGAL SMEAR Routine 07/15/2024 4:00 PM LOCKSMITH Empyema Pleural (HCC) LEGIONELLA CULTURE Routine 07/15/2024 4: 00 PM LOCKSMITH Empyema Pleural (HCC) ACID FAST SMEAR FOR MYCOBACTERIUM Routine 07/15/2024 4:00 PM LOCKSMITH Empyema Pleural (HCC) GRAM STAIN Routine 07/15/2024 4:00 PM LOCKSMITH Empyema Pleural (HCC) FUNGAL CULTURE, ROUTINE Routine 07/15/2024 4:00 PM LOCKSMITH Empyema Pleural (HCC) BACTERIAL CULTURE, ANAEROBIC + SUSC Routine 07/15/2024 4:00 PM LOCKSMITH Empyema Pleural (HCC) BACTERIAL CULTURE, AEROBIC + SUSC Routine 07/15/2024 2:24 PM LOCKSMITH Empyema Pleural (HCC) MYCOBACTERIAL CULTURE, V Routine 07/15/2024 2:24 PM LOCKSMITH Empyema Pleural (HCC) FUNGAL SMEAR Routine 07/15/2024 2:24 PM LOCKSMITH Empyema Pleural (HCC) ACID FAST SMEAR FOR MYCOBACTERIUM Routine 07/15/2024 2:24 PM LOCKSMITH Empyema Pleural (HCC) GRAM STAIN Routine 07/15/2024 2:24 PM LOCKSMITH Empyema Pleural (HCC) FUNGAL CULTURE, ROUTINE Routine 07/15/2024 2:24 PM LOCKSMITH Empyema Pleural (HCC) THORACOSCOPY - DECORTICATION 07/15/2024 12:32 PM LOCKSMITH Empyema Pleural (HCC) TYPE AND SCREEN STAT 07/15/2024 7:50 AM LOCKSMITH MRSA/STAPHYLOCOCCUS AUREUS, NASAL, BY PCR Routine 07/14/2024 10:39 AM LOCKSMITH BASIC METABOLIC PANEL, S/P Routine 07/14/2024 4:09 AM LOCKSMITH DX CHEST PORTABLE 1 VIEW RAD - Routine (most inpatients and all outpatients) 07/13/2024 9:07 PM LOCKSMITH CBC WITHOUT DIFFERENTIAL, B Routine 07/13/2024 8:14 PM LOCKSMITH documented in this encounter Results * DX Chest AP or PA and Lateral 2 Views (08/27/2024 10:18 AM LOCKSMITH) Anatomical Region Laterality Modality Chest, Thoracic RST LOS, Tho racic ARZ LOS, Thoracic FLA LOS N/A Digital Radiography Impressions 08/27/2024 10:25 AM LOCKSMITH Compared to 08/05/2024, multifocal linear subsegmental atelectasis or scarring and mild septal thickening in the left hemithorax is decreased but not resolved. Trace left pleural effusion is decreased. Improved aeration of the left lung base with decrease in previous mild patchy groundglass opacities. No new consolidation. Interval removal of right PICC. Chest otherwise negative. Narrative 08/27/2024 10:25 AM LOCKSMITH EXAM: DX CHEST AP OR PA AND [...] PICC. Chest otherwise negative. us Melinda Isaac DIRECTOR CHILD, C.N.P. IMG DIAGNOSTIC IM AGING PROCEDURES Final Result * (ABNORMAL) Creatinine with Estimated GFR (07/29/2024 10:15 AM LOCKSMITH) Creatinine 0.53(L) 0.59 - 1.04 mg/dL 07/29/2024 10:39 AM LOCKSMITH [place] Estimated GFR (eGFR) >90 >=60 mL/min/BSA 07/29/2024 10:39 AM LOCKSMITH [facility] Comment: Estimated GFR calculated using the 2020 CKD_EPI creatinine equation. Blood (Blood, PICC) 07/29/2024 10:15 AM LOCKSMITH 07/29/2024 10:18 AM LOCKSMITH us Melinda Isaac APRN, C.N.P. LAB [place] [address], [place] [address] * Alkaline Phosphatase (07/29/2024 10:15 AM LOCKSMITH) Alkaline Phosphatase, P 97 35 - 104 U/L 07/29/2024 10:39 AM LOCKSMITH [facility] Blood (Blood, PICC) 07/29/2024 10:15 AM LOCKSMITH 07/29/2024 10:18 AM LOCKSMITH us Melinda Isaac APRN, C.N.P. LAB [place] [address], [place] [address] * ALT (Alanine Aminotransferase) (07/29/2024 10:15 AM LOCKSMITH) Alanine Aminotransferase (ALT), P 15 7 - 45 U/L 07/29/2024 10:39 AM LOCKSMITH [facility] Blood (Blood, PICC) 07/29/2024 10:15 AM LOCKSMITH 07/29/2024 10:18 AM LOCKSMITH us Melinda Isaac APRN, C.N.P. LAB BLOOD ADD-ON Final Result [facility] [address] [place] [address], [place] CNFL [facility] in [address] [address] * (ABNORMAL) CBC with Differential, Blood (07/29/2024 10:15 AM LOCKSMITH) Hemoglobin 10.2(L) 11.6 - 15.0 g/dL 07/29/2024 10:28 AM LOCKSMITH CNFL Hematocrit 33.5(L) 35.5 - 44.9 % 07/29/2024 10:28 AM LOCKSMITH CNFL Erythrocytes 3.82(L) 3.92 - 5.13 x10(12)/L 07/29/2024 10:28 AM LOCKSMITH CNFL MCV 87.7 78.2 - 97.9 fL 07/29/2024 10:28 AM LOCKSMITH CNFL RBC Distrib Width 14.9 12.2 - 16.1 % 07/29/2024 10:28 AM LOCKSMITH CNFL Platelet Count 837(H) 157 - 371 x10(9)/L 07/29/2024 10:28 AM LOCKSMITH CNFL Leukocytes 16.0(H) 3.4 - 9.6 x10(9)/L 07/29/2024 10:28 AM LOCKSMITH CNFL Neutrophils 13.54(H) 1.56 - 6.45 x10(9)/L 07/29/2024 10:28 AM LOCKSMITH CNFL Lymphocytes 1.31 0.95 - 3.07 x10(9)/L 07/29/2024 10:28 AM LOCKSMITH CNFL Monocytes 0.62 0.26 - 0.81 x10(9)/L 07/29/2024 10:28 AM LOCKSMITH CNFL Eosinophils 0.39 0.03 - 0.48 x10(9)/L 07/29/2024 10:28 AM LOCKSMITH CNFL Basophils 0.12(H) 0.01 - 0.08 x10(9)/L 07/29/2024 10:28 AM LOCKSMITH CNFL Blood (Blood, PICC) 07/29/2024 10:15 AM LOCKSMITH 07/29/2024 10:18 AM LOCKSMITH us Melinda Isaac APRN CDmitryNDmitryPDmitry LAB BLOOD ADD-ON Final Result Performing Organization Address City/State/[facility] Co de Phone Number [facility] [address] [place] [address], [place] CNFL [facility] in [address] [address] * DX Chest AP or PA and Lateral 2 Views (07/19/2024 1:04 PM LOCKSMITH) Anatomical Region Laterality Modality Chest, Thoracic RST LOS, Tho racic ARZ LOS, Thoracic FLA LOS N/A Digital Radiography Impressions 07/19/2024 1:55 PM LOCKSMITH Since earlier today, removal of the left chest tube. Remainder not significantly changed. Trace left apical pneumothorax. Right PICC tip at the SVC/RA junction. No pleural effusions. Enlarged cardiac silhouette. Scattered subsegmental atelectasis. Narrative 07/19/2024 1:55 PM LOCKSMITH EXAM: DX CHEST AP OR PA AND LATERAL 2 VIEWS Procedure Note Jt Valenzuela M.D. - 07/19/2024 EXAM: DX CHEST AP OR PA AND LATERAL 2 VIEWS IMPRESSION: Since earlier today, removal of the left chest tube. Remainder notsignificantly changed. Trace left apical pneumothorax. Right PICC tip atthe SVC/RA junction. No pleural effusions. Enlarged cardiac silhouette.Scattered subsegmental atelectasis. us Eveline Mariscal P.A.-C. IMG DIAGNOSTIC IMAGING [place] OCEDURES Final Result * DX Chest AP or PA and Lateral 2 Views (07/19/2024 9:10 AM LOCKSMITH) Anatomical Region Laterality Modality Chest, Thoracic RST LOS, Tho racic ARZ LOS, Thoracic FLA LOS N/A Digital Radiography Impressions 07/19/2024 10:12 AM LOCKSMITH Since 07/18/2024, right arm PICC has been inserted with tip at the SVC RA junction. One of the left chest tubes has been removed. Remainder unchanged. Trace left apical pneumothorax. No pleural effusions. Enlarged cardiac silhouette. Scattered subsegmental atelectasis. Left chest tube. Narrative 07/19/2024 10:12 AM LOCKSMITH EXAM: DX CHEST AP OR PA AND [...] tube. Eveline Mariscal P.A.-C. IMG DIAGNOSTIC IMAGING [place] OCEDURES Final Result * Basic Metabolic Panel (07/19/2024 6:02 AM LOCKSMITH) Potassium, S 3.6 3.6 - 5.2 mmol/L 07/19/2024 6:59 AM LOCKSMITH DTL Sodium, S 140 135 - 145 mmol/L 07/19/2024 6:59 AM LOCKSMITH DTL Chloride, S 103 98 - 107 mmol/L 07/19/2024 6:59 AM LOCKSMITH DTL Bicarbonate, S 28 22 - 29 mmol/L 07/19/2024 6:59 AM LOCKSMITH DTL Anion Gap 9 7 - 15 07/19/2024 6:59 AM LOCKSMITH DTL BUN (Blood Urea Nitrogen), S 11 6 - 21 mg/dL 07/19/2024 6:59 AM LOCKSMITH DTL Creatinine 0.82 0.59 - 1.04 mg/dL 07/19/2024 6:59 AM LOCKSMITH DTL Estimated GFR (eGFR) >90 >=60 mL/min/BSA 07/19/2024 6:59 AM LOCKSMITH DTL Comment: Estimated GFR calculated using the 2020 CKD_EPI creatinine equation. Calcium, Total, S 8.6 8.6 - 10.0 mg/dL 07/19/2024 6:59 AM LOCKSMITH DTL Glucose, S 90 70 - 140 mg/dL 07/19/2024 6:59 AM LOCKSMITH DTL Blood (Blood, Venous) 07/19/2024 6:02 AM LOCKSMITH 07/19/2024 6:42 AM LOCKSMITH Lopez Garvey M.D. LAB BLOOD ADD-ON Final Resul t [facility] [address] [place] [address], [facility] [address] [place] [address] * (ABNORMAL) CBC without Differential (07/19/2024 6:02 AM LOCKSMITH) Hemoglobin 7.6(L) 11.6 - 15.0 g/dL 07/19/2024 6:38 AM LOCKSMITH DTL Hematocrit 24.1(L) 35.5 - 44.9 % 07/19/2024 6:38 AM LOCKSMITH DTL Erythrocytes 2.67(L) 3.92 - 5.13 x10(12)/L 07/19/2024 6:38 AM LOCKSMITH DTL MCV 90.3 78.2 - 97.9 fL 07/19/2024 6:38 AM LOCKSMITH DTL RBC Distrib Width 15.6 12.2 - 16.1 % 07/19/2024 6:38 AM LOCKSMITH DTL Platelet Count 478(H) 157 - 371 x10(9)/L 07/19/2024 6:38 AM LOCKSMITH DTL Leukocytes 9.8(H) 3.4 - 9.6 x10(9)/L 07/19/2024 6:38 AM LOCKSMITH DTL Blood (Blood, Venous) 07/19/2024 6:02 AM LOCKSMITH 07/19/2024 6:26 AM LOCKSMITH Lopez Garvey M.D. LAB BLOOD ADD-ON Final Resul t [facility] [address] [place] [address], [place] DTL [facility] [address] [place] [address] * Place peripherally inserted central catheter (PICC) (07/18/2024 8:43 PM LOCKSMITH) Narrative MMODAL - 07/18/2024 8:43 PM LOCKSMITH Rayo Finch R.N. 07/18/2024 9:[address] [...] with ultrasound and measured to ensure appropriate [id number] ratio of 45% or less: Right Basilic [...] to release the adhesive from the skin. [email or web address]/[email or web address] Eveline Mariscal P.A.-C. PROCEDURE/MINOR SURGICAL ORDERABLES Final Result MMODAL NA * DX Chest AP or PA and Lateral 2 Views (07/18/2024 10:15 AM LOCKSMITH) Anatomical Region Laterality Modality Chest, Thoracic RST LOS, Tho racic ARZ LOS, Thoracic FLA LOS N/A Digital Radiography Impressions 07/18/2024 10:22 AM LOCKSMITH Compared with the 07/15/2024 chest radiograph. Decreased tiny left pneumothorax. Slightly improved aeration with decreased lower lung predominant presumably atelectases. Shallow inspiration with accentuation of the cardiovascular structures. Narrative 07/18/2024 10:22 AM LOCKSMITH EXAM: DX CHEST AP OR PA AND LATERAL 2 VIEWS Procedure Note Polo Toussaint M.D. - 07/18/2024 EXAM: DX CHEST AP OR PA AND LATERAL 2 VIEWS IMPRESSION: Compared with the 07/15/2024 chest radiograph. Decreased tiny leftpneumothorax. Slightly improved aeration with decreased lower lungpredominant presumably atelectases. Shallow inspiration with accentuationof the cardiovascular structures. Eveline Mariscal P.A.-C. IMG DIAGNOSTIC IMAGING [place] OCEDURES Final Result * HIV-1/-2 Ag and Ab Screen, Plasma (07/17/2024 5:05 PM LOCKSMITH) [facility] HIV-1/-2 Ag and Ab Screen, P Negative Negative 07/17/2024 8:57 PM LOCKSMITH [facility] Comment: Negative result does not rule out HIV infection. If exposure to HIV infection occurred <14 days ago, contact the laboratory to request addition of HIV-1/HIV-2 RNA detection, Plasma (HIP12). Blood (Blood, Venous) 07/17/2024 5:05 PM LOCKSMITH 07/17/2024 7:55 PM LOCKSMITH Demarcus Pennington APRNN DmitryP., M.S. LAB MICROBIOLOGY - BLOOD ORDERABLES Final Result Performing Organization Address City/[facility]/ZIP Co de Phone Number [facility] [address] [place] [address] [facility] [address] [place] [address] * (ABNORMAL) Vancomycin, Trough (07/16/2024 10:31 AM LOCKSMITH) [facility] Vancomycin, Trough, S 8.9(L) 10.0 - 20.0 mcg/mL 07/16/2024 12:10 PM LOCKSMITH DTL Blood (Blood, Venous) 07/16/2024 10:31 AM LOCKSMITH 07/16/2024 10:52 AM LOCKSMITH Patrick Mtz M.D., Ph.D. LAB BLOOD NON ADD-ON Fi nal Result Performing Organization Address City/[facility]/ZIP Co de Phone Number [facility] [address] [place] [address], [facility] [address] [place] [address] * DX Chest 1 View (07/15/2024 4:51 PM LOCKSMITH) Anatomical Region Laterality Modality Chest, Thoracic RST LOS, Tho racic ARZ LOS, Thoracic FLA LOS N/A Digital Radiography Impressions 07/15/2024 4:59 PM LOCKSMITH Negative for postoperative purposes. Left thoracotomy with 2 left chest tubes. Small left-sided pneumothorax. New left perihilar consolidation/atelectasis since 07/13/2024. Increased bibasilar consolidation/atelectasis. Very low lung volumes accentuate heart size and bronchovascular markings. Narrative 07/15/2024 4:59 PM LOCKSMITH EXAM: DX CHEST 1 VIEW Procedure Note [...] Culture, Aerobic + Susceptibility (07/15/2024 4:00 PM LOCKSMITH) Bacterial Culture, Aerobic + Susc No growth after 5 days of incubation. 07/20/2024 7:42 AM LOCKSMITH DTL Tissue (Pleura, Left) 07/15/2024 4:00 PM LOCKSMITH us Patrick Mtz M.D., Ph.D. LAB MICROBIOLOGY - GENE RAL ORDERABLES Final Result [facility] [address] [place] [address], [facility] [address] [place] [address] * Actinomyces Culture (07/15/2024 4:00 PM LOCKSMITH) Actinomyces Culture No growth after 14 days of incubation . 07/29/2024 7:33 AM LOCKSMITH DTL Tissue (Pleura, Left) 07/15/2024 4:00 PM LOCKSMITH us Patrick Mtz M.D., Ph.D. LAB MICROBIOLOGY - GENE RAL ORDERABLES Final Result [facility] [address] [place] [address], [facility] [address] [place] [address] * Mycobacterial Culture (07/15/2024 4:00 PM LOCKSMITH) Mycobacterial Culture No growth after 42 days of incubation . 08/27/2024 1:02 AM LOCKSMITH DTL Tissue (Pleura, Left) 07/15/2024 4:00 PM LOCKSMITH Result Emma Mtz M.D., Ph.D. LAB MICROBIOLOGY - GENE RAL ORDERABLES Final Result [facility] [address] [place] [address], [facility] [address] [place] [address] * Fungal Smear (07/15/2024 4:00 PM LOCKSMITH) Fungal Smear Negative. 07/16/2024 8:52 AM LOCKSMITH DTL Tissue (Pleura, Left) 07/15/2024 4:00 PM LOCKSMITH Result Emma Mtz M.D., Ph.D. LAB MICROBIOLOGY - GENE RAL ORDERABLES Final Result [facility] [address] [place] [address], [place] [facility] [address] [place] [address] * Legionella Culture (07/15/2024 4:00 PM LOCKSMITH) Legionella Culture No growth of Legionella species after 7 days of incubation 07/22/2024 8:16 AM LOCKSMITH DTL Tissue (Pleura, Left) 07/15/2024 4:00 PM LOCKSMITH us Patrick Mtz M.D., Ph.D. LAB MICROBIOLOGY - GENE RAL ORDERABLES Final Result [facility] [address] [place] [address], [facility] [address] [place] [address] * Acid Fast Smear for Mycobacterium (07/15/2024 4:00 PM LOCKSMITH) Acid Fast Smear For Mycobacterium Negative. 07/15/2024 10:18 PM LOCKSMITH DT Tissue (Pleura, Left) 07/15/2024 4:00 PM LOCKSMITH us Patrick Mtz M.D., Ph.D. LAB MICROBIOLOGY - GENE RAL ORDERABLES Final Result Performing Organization Address City/[facility]/ZIP Co de Phone Number [facility] [address] [place] [address], [facility] [address] [place] [address] * Gram Stain (07/15/2024 4:00 PM LOCKSMITH) Gram Stain No organisms seen. White blood cells, Many 07/15/2024 10:18 PM LOCKSMITH DTL Tissue (Pleura, Left) 07/15/2024 4:00 PM LOCKSMITH us Patrick Mtz M.D., Ph.D. LAB MICROBIOLOGY - GENE RAL ORDERABLES Final Result [facility] [address] [place] [address], [facility] [address] [place] [address] * Fungal Culture, Routine (07/15/2024 4:00 PM LOCKSMITH) Fungal Culture, Routine No growth after 24 days of incubation. 08/09/2024 1:02 AM LOCKSMITH DTL Tissue (Pleura, Left) 07/15/2024 4:00 PM LOCKSMITH us Patrick Mtz M.D., Ph.D. LAB MICROBIOLOGY - GENE RAL ORDERABLES Final Result Performing Organization Address City/[facility]/ZIP Co de Phone Number [facility] [address] [place] [address], [facility] [address] [place] [address] * Bacterial Culture, Anaerobic + Susceptibility (07/15/2024 4:00 PM LOCKSMITH) Bacterial Culture, Anaerobic + Susc No growth after 14 days of incubation. 07/29/2024 7:33 AM LOCKSMITH DTL Tissue (Pleura, Left) 07/15/2024 4:00 PM LOCKSMITH us Patrick Mtz M.D., Ph.D. LAB MICROBIOLOGY - GENE RAL ORDERABLES Final Result Performing Organization Address City/[facility]/ZIP Co de Phone Number [facility] [address] [place] [address], [facility] [address] [place] [address] * Bacterial Culture, Aerobic + Susceptibility (07/15/2024 2:24 PM LOCKSMITH) Bacterial Culture, Aerobic + Susc No growth after 5 days of incubation. 07/20/2024 7:42 AM LOCKSMITH DTL Fluid (Pleural Fluid, Left) 07/15/2024 2:24 PM LOCKSMITH Narrative [facility] - 07/20/2024 7:42 AM LOCKSMITH Bacterial Culture: Placed in Bactec aerobic and Bactec anaerobic bottles us Patrick Mtz M.D., Ph.D. LAB MICROBIOLOGY - GENE RAL ORDERABLES Final Result [facility] [address] [place] [address], [facility] [address] [place] [address] * Mycobacterial Culture (07/15/2024 2:24 PM LOCKSMITH) Mycobacterial Culture No growth after 42 days of incubation . 08/27/2024 1:02 AM LOCKSMITH DTL Fluid (Pleural Fluid, Left) 07/15/2024 2:24 PM LOCKSMITH Narrative [facility] - 08/27/2024 1:02 AM LOCKSMITH Bacterial Culture: Placed in Bactec aerobic and Bactec anaerobic bottles us Patrick Mtz M.D., Ph.D. LAB MICROBIOLOGY - GENE RAL ORDERABLES Final Result Performing Organization Address City/[facility] Co de Phone Number [facility] [address] [place] [address], [facility] [address] [place] [address] * Fungal Smear (07/15/2024 2:24 PM LOCKSMITH) Fungal Smear Negative. 07/15/2024 7:25 PM LOCKSMITH DTL Fluid (Pleural Fluid, Left) 07/15/2024 2:24 PM LOCKSMITH Narrative [facility] - 07/15/2024 7:25 PM LOCKSMITH Bacterial Culture: Placed in Bactec aerobic and Bactec anaerobic bottles us Patrick Mtz M.D., Ph.D. LAB MICROBIOLOGY - GENE RAL ORDERABLES Final Result [facility] [address] [place] [address], [facility] [address] [place] [address] * Acid Fast Smear for Mycobacterium (07/15/2024 2:24 PM LOCKSMITH) Acid Fast Smear For Mycobacterium Negative. 07/15/2024 9:24 PM LOCKSMITH DTL Fluid (Pleural Fluid, Left) 07/15/2024 2:24 PM LOCKSMITH Narrative [facility] - 07/15/2024 9:24 PM LOCKSMITH Bacterial Culture: Placed in Bactec aerobic and Bactec anaerobic bottles us Patrick Mtz M.D., Ph.D. LAB MICROBIOLOGY - GENE RAL ORDERABLES Final Result Performing Organization Address City/[facility]/ZIP Co de Phone Number [facility] [address] [place] [address], [facility] [address] [place] [address] * Gram Stain (07/15/2024 2:24 PM LOCKSMITH) Gram Stain No organisms seen. White blood cells, Moderate 07/15/2024 8:02 PM LOCKSMITH DTL Fluid (Pleural Fluid, Left) 07/15/2024 2:24 PM LOCKSMITH [facility] - 07/15/2024 8:02 PM LOCKSMITH Bacterial Culture: Placed in Bactec aerobic and Bactec anaerobic bottles us Patrick Mtz M.D., Ph.D. LAB MICROBIOLOGY - GENE RAL ORDERABLES Final Result Performing Organization Address City/[facility]/ZIP Co de Phone Number [facility] [address] [place] [address], [facility] [address] [place] [address] * Fungal Culture, Routine (07/15/2024 2:24 PM LOCKSMITH) Fungal Culture, Routine No growth after 24 days of incubation. 08/09/2024 1:02 AM LOCKSMITH DTL Fluid (Pleural Fluid, Left) 07/15/2024 2:24 PM LOCKSMITH [facility] - 08/09/2024 1:02 AM LOCKSMITH Bacterial Culture: Placed in Bactec aerobic and Bactec anaerobic bottles us Patrick Mtz M.D., Ph.D. LAB MICROBIOLOGY - GENE RAL ORDERABLES Final Result Performing Organization Address City/[facility]/ZIP Co de Phone Number [facility] [address] [place] [address], [place] D[place] [facility] [address] [place] [address] * Type and Screen (with Reflex Antibody ID) (07/15/2024 7:50 AM LOCKSMITH) Pathologist [facility] ABORh AB Pos Not applicable 07/15/2024 8:36 AM LOCKSMITH STRM Antibody Screen Negative Negative 07/15/2024 8:51 AM LOCKSMITH STRM Type & Screen Expiration 07/18/2024 23:59 07/15/2024 8:36 AM LOCKSMITH STRM Testing Location [place] DEFAULT 07/15/2024 8:10 AM LOCKSMITH STRM Blood (Blood, Venous) 07/15/2024 7:50 AM LOCKSMITH 07/15/2024 8:10 AM LOCKSMITH us Jamie Kumar M.D. LAB BLOOD BANK TEST ORDERABLES F inal Result Performing Organization Address [facility] Co de Phone Number [facility] [address] [place] [address], [place] STRM [facility] [address] [place] [address] * Staph aureus / MRSA, Nasal, PCR (07/14/2024 10:39 AM LOCKSMITH) [facility] Staphylococcus aureus, PCR Negative Negative 07/14/2024 12:55 PM LOCKSMITH DTL MRSA, PCR Negative Negative 07/14/2024 12:55 PM LOCKSMITH DTL Swab (Nares) 07/14/2024 10:3 9 AM LOCKSMITH 07/14/2024 11:06 AM LOCKSMITH us Patrick Mtz M.D., Ph.D. LAB MICROBIOLOGY - GENE RAL ORDERABLES Final Result [facility] [address] [place] [address], [place] DTL [facility] [address] [place] [address] * (ABNORMAL) Basic Metabolic Panel (07/14/2024 4:09 AM LOCKSMITH) Potassium, S 3.9 3.6 - 5.2 mmol/L 07/14/2024 5:53 AM LOCKSMITH DTL Sodium, S 139 135 - 145 mmol/L 07/14/2024 5:53 AM LOCKSMITH DTL Chloride, S 103 98 - 107 mmol/L 07/14/2024 5:53 AM LOCKSMITH DTL Bicarbonate, S 22 22 - 29 mmol/L 07/14/2024 5:53 AM LOCKSMITH DTL Anion Gap 14 7 - 15 07/14/2024 5:53 AM LOCKSMITH DTL BUN (Blood Urea Nitrogen), S 10 6 - 21 mg/dL 07/14/2024 5:53 AM LOCKSMITH DTL Creatinine 0.57(L) 0.59 - 1.04 mg/dL 07/14/2024 5:53 AM LOCKSMITH DTL Estimated GFR (eGFR) >90 >=60 mL/min/BSA 07/14/2024 5:53 AM LOCKSMITH DTL Comment: Estimated GFR calculated using the 2020 CKD_EPI creatinine equation. Calcium, Total, S 9.1 8.6 - 10.0 mg/dL 07/14/2024 5:53 AM LOCKSMITH DTL Glucose, S 91 70 - 140 mg/dL 07/14/2024 5:53 AM LOCKSMITH DTL Blood (Blood, Venous) 07/14/2024 4:09 AM LOCKSMITH 07/14/2024 5:23 AM LOCKSMITH us Lopez Garvey M.D. LAB BLOOD ADD-ON Final Resul t [address] [address], [facility] [address] [place] [address] * DX Chest Portable 1 View (07/13/2024 9:07 PM LOCKSMITH) Anatomical Region Laterality Modality Chest, Thoracic RST LOS, Tho racic ARZ LOS, Thoracic FLA LOS N/A Digital Radiography Impressions 07/14/2024 7:27 AM LOCKSMITH No significant change since earlier today. Bibasilar atelectasis. Small left loculated pleural effusion. Hazy opacification in the bilateral lungs, left greater than right. No discernible pneumothorax. Mildly enlarged cardiomediastinal silhouette. Narrative 07/14/2024 7:27 AM LOCKSMITH EXAM: DX CHEST PORTABLE 1 VIEW Procedure Note Chaz Montelongo M.D. - 07/14/2024 EXAM: DX CHEST PORTABLE 1 VIEW IMPRESSION: No significant change since earlier today. Bibasilar atelectasis. Smallleft loculated pleural effusion. Hazy opacification in the bilaterallungs, left greater than right. No discernible pneumothorax. Mildlyenlarged cardiomediastinal silhouette. Lopez Garvey M.D. [facility] Final Result * (ABNORMAL) CBC without Differential (07/13/2024 8:14 PM LOCKSMITH) Hemoglobin 9.7(L) 11.6 - 15.0 g/dL 07/13/2024 9:24 PM LOCKSMITH DTL Hematocrit 30.1(L) 35.5 - 44.9 % 07/13/2024 9:24 PM LOCKSMITH DTL Erythrocytes 3.32(L) 3.92 - 5.13 x10(12)/L 07/13/2024 9:24 PM LOCKSMITH DTL MCV 90.7 78.2 - 97.9 fL 07/13/2024 9:24 PM LOCKSMITH DTL RBC Distrib Width 15.3 12.2 - 16.1 % 07/13/2024 9:24 PM LOCKSMITH DTL Platelet Count 788(H) 157 - 371 x10(9)/L 07/13/2024 9:24 PM LOCKSMITH DTL Leukocytes 17.4(H) 3.4 - 9.6 x10(9)/L 07/13/2024 9:24 PM LOCKSMITH DTL Blood (Blood, Venous) 07/13/2024 8:14 PM LOCKSMITH 07/13/2024 9:16 PM LOCKSMITH us Lopez Garvey M.D. LAB BLOOD ADD-ON Final Resul t [facility] [address] [place] [address], [place] DTL [facility] [address] [place] [address] documented in this encounter Visit Diagnoses Diagnosis [...] mL/hr, Administer over 15 Minutes, Once, On Mon07/15/24 at 1730, For 1 dose, PACU (only), Restriction Criteria (Pharmacy will review and approve if criteria met): After hours OR urgent first dose New Bag 07/15/2024 5:12 PM LOCKSMITH 1,000 mg 400 mL/hr acetaminophen tablet 1,000 mg (TylenoL) 1,000 mg, oral, Every 6 hours, First dose on Mon07/13/24 at 2100 Given 07/20/2024 8:40 AM LOCKSMITH 1,000 mg Given 07/20/2024 2:56 AM LOCKSMITH 1,000 mg Given 07/19/2024 8:36 PM LOCKSMITH 1,000 mg bisacodyL suppository 10 mg (Dulcolax) [...] or split tablet. Given 07/20/2024 8:42 AM LOCKSMITH 150 mg Given 07/19/2024 8:39 AM LOCKSMITH 150 mg Given 07/18/2024 7:34 AM LOCKSMITH 150 mg buPROPion XL 24 hr tablet 300 mg (Wellbutrin XL) 300 mg, oral, Daily, First dose on Mon07/14/24 at 0900, Swallow whole. Do NOT crush, chew, or split tablet. Given 07/20/2024 8:41 AM LOCKSMITH 300 mg Given 07/19/2024 8:41 AM LOCKSMITH 300 mg Given 07/18/2024 7:36 AM LOCKSMITH 300 mg calcium carbonate chewable tablet 400 [...] (after last modification) on Mon07/14/24 at 2100 Given 07/19/2024 8:37 PM LOCKSMITH 4.5 mg Given 07/18/2024 9:23 PM LOCKSMITH 4.5 mg Given 07/17/2024 8:24 PM LOCKSMITH 4.5 mg cefTRIAXone in dextrose (iso osm) IVPB 2 g (Rocephin) 2 g, intravenous, at 200 mL/hr, Administer over 15 Minutes, Every 24 hours, First dose on Mon07/17/24 at 1600, Drug Monitoring Program: Pharmacist to adjust medication dosing based on indication and drug clearance factors., Indications: empyemaIndications:empyema New Bag 07/20/2024 8:43 AM LOCKSMITH 2 g 200 mL/hr New Bag 07/19/2024 11:52 AM LOCKSMITH 2 g 200 mL/hr New Bag 07/18/2024 4:31 PM LOCKSMITH 2 g 200 mL/hr D5W infusion 1-999 [...] feeding administration instructions. Given 07/20/2024 8:40 AM LOCKSMITH 60 mg Given 07/19/2024 8:40 AM LOCKSMITH 60 mg Given 07/18/2024 7:35 AM LOCKSMITH 60 mg fentaNYL injection 25 mcg (Sublimaze) 25 mcg, intravenous, Every 2 min PRN, For pain 4 or greater (maximum 100 mcg). If max dose of Fentanyl is reached and if pain is greater than 4, discontinue Fentanyl: give Hydromorphone, Starting on Mon07/15/24 at 1145, PACU (only) Given 07/15/2024 5:47 PM LOCKSMITH 25 mcg Given 07/15/2024 5:31 PM LOCKSMITH 25 mcg Given 07/15/2024 5:24 PM LOCKSMITH 25 mcg heparin (porcine) injection 5,000 Units 5,000 Units, subcutaneous, Every 8 hours scheduled, First dose on Mon07/14/24 at 0400 Given 07/15/2024 9:27 PM LOCKSMITH 5,000 Units Left Lower Abdomen Given 07/14/2024 10:20 PM LOCKSMITH 5,000 Units Left Lower Abdomen Given 07/14/2024 2:32 PM LOCKSMITH 5,000 Units L eft Upper Arm (Back) heparin (porcine) injection 5,000 Units 5,000 Units, subcutaneous, Every 8 hours scheduled, First dose on Mon07/16/24 at 0600 Given 07/20/2024 5:49 AM LOCKSMITH 5,000 Units Right Upper Arm (Back) Given 07/19/2024 8:36 PM LOCKSMITH 5,000 Units L eft Upper Arm (Back) Given 07/19/2024 1:45 PM LOCKSMITH 5,000 Units L eft Upper Abdomen HYDROmorphone (PF) injection 0.2 mg (Dilaudid) 0.2 mg, intravenous, Every 1 hour PRN, severe pain or score 7-10 of 10, Starting on 07/13/24 at 1953 Given 07/18/2024 7:27 AM LOCKSMITH 0.2 mg Given 07/18/2024 2:43 AM LOCKSMITH 0.2 mg Given 07/17/2024 7:17 PM LOCKSMITH 0.2 mg HYDROmorphone (PF) injection 0.2 mg (Dilaudid) 0.2 mg, intravenous, Every 5 min PRN, moderate pain or score 4-6 of 10, severe pain or score 7-10 of 10, Starting on Mon07/15/24 at 1145, PACU (only), Up to maximum total dose of 2 mg Given 07/15/2024 6:18 PM LOCKSMITH 0.2 mg Given 07/15/2024 6:04 PM LOCKSMITH 0.2 mg HYDROmorphone-0.9 % NaCl 1 mg/mL DATA ENTRY TECHNICIAN bag (Dilaudid) DATA ENTRY TECHNICIAN Dose: 0.1 mg, DATA ENTRY TECHNICIAN Lockout: 10 Minutes, Continuous Rate: 0 mg/hr, Four Hour Limit: 2 mg, intravenous, Continuous, Starting on Mon07/15/24 at 2245, Prescriber to manage. Administer with a compatible IV carrier fluid. Rate/Dose Verify 07/17/2024 3:41 AM LOCKSMITH Rate/Dose Verify 07/17/2024 12:00 AM LOCKSMITH Rate/Dose Verify 07/16/2024 8:18 PM LOCKSMITH ibuprofen tablet 400 mg 400 mg, oral, Every 6 hours PRN, moderate pain or score 4-6 of 10, severe pain or score 7-10 of 10, Starting on Mon07/19/24 at 2135, Take with food or milk if GI disturbances occur with use. Given 07/20/2024 5:49 AM LOCKSMITH 400 mg Given 07/19/2024 9:44 PM LOCKSMITH 400 mg ipratropium-albuteroL 0.5-2.5 mg/3 mL nebulizer [...] additional analgesic benefit. Given 07/19/2024 5:46 AM LOCKSMITH 15 mg Given 07/18/2024 11:42 PM LOCKSMITH 15 mg Given 07/18/2024 12:28 PM LOCKSMITH 15 mg Lactated Ringer's 20 mL/hr, intravenous, Continuous, Starting on Mon07/15/24 at 1700, PACU & Post-Op Continued from OR 07/15/2024 5:12 PM LOCKSMITH 20 mL/hr 20 mL/hr lidocaine 5 % 1 patch (Lidoderm) 1 patch, transdermal, Administer over 12 Hours, Daily, First dose on 07/13/24 at 2030, Remove after 12 hours. Medication Applied 07/13/2024 8:35 PM LOCKSMITH 1 patch Flank lidocaine 5 % 1 patch (Lidoderm) 1 patch, transdermal, Administer over 12 Hours, Daily at bedtime, First dose (after last modification) on Mon07/14/24 at 2100, Remove after 12 hours. Medication Applied 07/19/2024 8:37 PM LOCKSMITH 1 patch Left Upper Abdomen Medication Applied 07/18/2024 9:23 PM LOCKSMITH 1 patch Other Medication Applied 07/17/2024 8:25 PM LOCKSMITH 1 patch Flank LORazepam tablet 0.5 mg [...] NOT refrigerate. New Bag 07/17/2024 5:40 AM LOCKSMITH 1,000 mg 260 mL/hr New Bag 07/16/2024 9:50 PM LOCKSMITH 1,000 mg 260 mL/hr New Bag 07/15/2024 8:18 PM LOCKSMITH 1,000 mg 260 mL/hr methocarbamoL tablet 500 mg (Robaxin) 500 mg, oral, 4 times daily PRN, muscle spasms, Starting on Mon07/17/24 at 1604 Given 07/20/2024 5:49 AM LOCKSMITH 500 mg Given 07/19/2024 6:05 PM LOCKSMITH 500 mg Given 07/19/2024 10:43 AM LOCKSMITH 500 mg metroNIDAZOLE tablet 500 mg (FlagyL) 500 mg, oral, 3 times daily, First dose on Mon07/17/24 at 2100, Drug Monitoring Program: Pharmacist to adjust medication dosing based on indication and drug clearance factors., Indications: empyemaIndications:empyema Given 07/20/2024 8:42 AM LOCKSMITH 500 mg Given 07/19/2024 8:37 PM LOCKSMITH 500 mg Given 07/19/2024 1:46 PM LOCKSMITH 500 mg NaCl 0.45 % infusion 50 mL/hr, intravenous, Continuous, Starting on Mon07/15/24 at 1915, 50 mL/hr until post-operative day one at 0800, then 20 mL/hr until post-operative day two at 0800, then discontinue when oral intake greater than 600 mL/hr and DATA ENTRY TECHNICIAN discontinued. Rate/Dose Verify 07/17/2024 12:00 AM LOCKSMITH 20 mL/hr 20 mL/hr New Bag 07/16/2024 10:14 PM LOCKSMITH 20 mL/hr 20 mL/hr Rate/Dose Verify 07/16/2024 8:18 PM LOCKSMITH 20 mL/hr 20 mL/h r NaCl 0.45 % infusion 20 mL/hr, intravenous, Continuous, Starting on Mon07/17/24 at 0830, While DATA ENTRY TECHNICIAN running, discontinue if DATA ENTRY TECHNICIAN stopped Rate/Dose Verify 07/17/2024 12:00 PM LOCKSMITH 20 mL/hr 20 mL/hr New Bag 07/17/2024 8:10 AM LOCKSMITH 20 mL/hr 20 mL/hr NaCl 0.9% infusion [...] ondansetron before droperidol. Given 07/14/2024 3:56 AM LOCKSMITH 4 mg oxyCODONE IR tablet 10 mg (Roxicodone) 10 mg, oral, Every 4 hours PRN, severe pain or score 7-10 of 10, for breakthrough pain, Starting on 07/13/24 at 1953, Pain unrelieved by other oral analgesics. Given 07/20/2024 2:55 AM LOCKSMITH 10 mg Given 07/19/2024 3:03 AM LOCKSMITH 10 mg Given 07/18/2024 9:07 PM LOCKSMITH 10 mg oxyCODONE IR tablet 5 mg (Roxicodone) 5 mg, oral, Every 4 hours PRN, moderate pain or score 4-6 of 10, for breakthrough pain, Starting on 07/13/24 at 1953, Pain unrelieved by other oral analgesics. Given 07/20/2024 8:50 AM LOCKSMITH 5 mg Given 07/19/2024 6:05 PM LOCKSMITH 5 mg Given 07/19/2024 12:20 PM LOCKSMITH 5 mg piperacillin-tazobactam in dextrose (iso osm) IVPB 4.5 g (Zosyn) 4.5 g, intravenous, at 200 mL/hr, Administer over 0.5 Hours, Every 6 hours, First dose (after last modification) on 07/13/24 at 2100, Drug Monitoring Program: Pharmacist to adjust medication dosing based on indication and drug clearance factors., Indications: Respiratory tract infection, healthcare associatedIndications:Respiratory tract infection, healthcare associated New Bag 07/17/2024 2:23 PM LOCKSMITH 4.5 g 200 mL/hr New Bag 07/17/2024 8:11 AM LOCKSMITH 4.5 g 200 mL/hr New Bag 07/17/2024 3:41 AM LOCKSMITH 4.5 g 200 mL/hr polyethylene glycol powder packet 1 packet (Miralax) 1 packet, oral, Daily PRN, constipation, Starting on 07/13/24 at 1953, Dissolve in 240 mLs (8 ounces) of water prior to giving. Avoid mixing with starch-based thickened liquids. pregabalin capsule 200 mg (Lyrica) 200 mg, oral, 3 times daily, First dose on 07/13/24 at 2100 Given 07/20/2024 8:42 AM LOCKSMITH 200 mg Given 07/19/2024 8:37 PM LOCKSMITH 200 mg Given 07/19/2024 1:45 PM LOCKSMITH 200 mg prochlorperazine injection 5 mg (Compazine) 5 mg, intravenous, Every 6 hours PRN, nausea, vomiting, Starting on 07/13/24 at 1953 sennosides tablet 17.2 mg (Senokot) 17.2 mg, oral, Daily, First dose on Mon07/14/24 at 0900, Do not give if patient has diarrhea Given 07/19/2024 8:41 AM LOCKSMITH 17.2 mg Given 07/18/2024 7:35 AM LOCKSMITH 17.2 mg Given 07/17/2024 8:09 AM LOCKSMITH 17.2 mg sodium chloride 0.9 % injection [...] mL per lumen. Given 07/20/2024 9:12 AM LOCKSMITH 10 mL Given 07/19/2024 9:39 AM LOCKSMITH 10 mL Given 07/18/2024 9:24 PM LOCKSMITH 10 mL sodium chloride 0.9 % injection [...] healthcare associated New Bag 07/17/2024 8:10 AM LOCKSMITH 1,900 mg 260 mL/hr New Bag 07/16/2024 8:18 PM LOCKSMITH 1,900 mg 260 mL/hr vancomycin in dextrose 5 % IVPB 1,500 mg 1,500 mg, intravenous, at 200 mL/hr, Administer over 90 Minutes, Every 12 hours, First dose (after last modification) on 07/14/24 at 2200, Drug Monitoring Program: Pharmacist to adjust medication dosing based on indication and drug clearance factors., Indications: Respiratory tract infection, healthcare associatedIndications:Respirator y tract infection, healthcare associated New Bag 07/16/2024 11:35 AM LOCKSMITH 1,500 mg 200 mL/hr New Bag 07/15/2024 10:46 PM LOCKSMITH 1,500 mg 200 mL/hr New Bag 07/15/2024 11:06 AM LOCKSMITH 1,500 mg 200 mL/hr vancomycin in NaCl 0.9 % IVPB 1,000 mg 1,000 mg (rounded from 1,072.5 mg = 15 mg/kg 71.5 kg Adjusted weight), intravenous, at 200 mL/hr, Administer over 60 Minutes, Every 12 hours, First dose on 07/13/24 at 2100, Drug Monitoring Program: Pharmacist to adjust medication dosing based on indication and drug clearance factors., Indications: Respiratory tract infection, healthcare associatedIndications:Respiratory tract infection, healthcare associated New Bag 07/14/2024 9:47 AM LOCKSMITH 1,000 mg 200 mL/hr New 07/13/2024 9:22 PM LOCKSMITH 1,000 mg 200 mL/hr documented in this encounter Active and Recently Administered Medications Times are shown in LOCKSMITH. Scheduled Medication Order 07/18/2024 07/19/2024 07/20/2024 acetaminophen tablet 1,000 mg (TylenoL) 1,000 mg, oral, Every 6 hours, First dose on 07/13/24 at 2100 0242 (Given - Provider: Dandre Hollis RDmitryN.)0738 (Given - Provider: Candi Leonard RDmitryN.)1413 (Given - Provider: Roxanne PriestN.)1942 (Given - Provider: Myke Alexander Noreen) 0303 (Given - Provider: Myke Alexander R.N.)0841 [...] Leonard R.N.)1357 (Given - Provider: Candi Leonard R.N.)210 (Given - Provider: Myke Alexander R.N.) 0838 (Given - Provider: Malcolm Cordon R.N.)1346 (Given - Provider: Malcolm Cordon R.N.)203 (Given - Provider: Isis Flaherty R.N.) 0842 (Given - Provider: Malcolm Cordon R.N.) pregabalin capsule 200 mg (Lyrica) 200 mg, oral, 3 times daily, First dose on Mon07/13/24 at 2100 0735 (Given - Provider: Candi Leonard R.N.)1357 (Given - Provider: Candi Leonard R.N.)210 (Given - Provider: Myke Alexander R.N.) 0838 (Given - Provider: Malcolm Cordon R.N.)1345 (Given - Provider: Malcolm Cordon R.N.)203 (Given - Provider: Isis Flaherty R.N.) 0842 [...] 2123 (Given - Provider: Myke Alexander R.N.) 938 (Given - Provider: Malcolm Cordon R.N.)2120 (Not Given - Provider: Isis Flaherty R.N. - Reason: Other) 911 (Given - Provider: Malcolm Cordon R.N.) PRN [...] use. 2144 (Given - Provider: Isis Flaherty RAlexi.) 0549 (Given - Provider: Roxanne GiffordN.) ipratropium-albuteroL 0.5-2.5 mg/3 mL nebulizer solution 3 [...] benefit. 0243 (Given - Provider: Dandre Hollis RDmitryN.)1228 (Given - Provider: Candi Leonard RDmitryN.)2342 (Given - Provider: Myke Alexander R.N.) 0546 (Given - Provider: yMke Alexander RAlexi.) LORazepam tablet 0.5 mg (Ativan) 0.5 mg, [...] 1604 1357 (Given - Provider: Candi Leonard RDmitryN.)1941 (Given - Provider: Myke Alexander R.N.) 0402 (Given - Provider: Tara Stout RDmitryN.)1043 (Given - Provider: Malcolm Cordon RAlexi.)1805 (Given - Provider: Malcolm Cordon R.N.) 0549 [...] Dandre Hollis R.N.)0501 (Given - Provider: Mariluz Daniel, R.N.)1646 (Given - Provider: Candi Leonard R.N.)2107 [...] 3, Pain unrelieved by other oral analgesics. 0044 (See Alternative - Provider: Dandre Hollis R.N.)0501 (See Alternative - Provider: Mariluz Daniel RDmitryNDmitry)1646 (See Alternative - Provider: Roxanne PriestNDmitry)2107 (See Alternative - Provider: Myke Alexander R.N.) [...] nausea, vomiting, Starting on 07/13/24 at 1953 sodium chloride 0.9 % injection 10-30 mL [...] Catheter Non-Valved, Starting on Gloria 07/18/24 at 5, Pior to and following blood sampling and [...] Depression Total Score: 22 025 7:19 PM LOCKSMITH documented as of this encounter Care Teams Lead Net Software Developer Relationship Specialty Start Date End Date Prudence Mena MPAS, P.A.-C. [address] [place] [address] [place] [address] PCP - General Internal Medicine 02/08/24 documented as of this encounter
--- OUTSIDE RECORDS SUMMARY | 2024-08-28 18:18 | XMS_ITS | Encounter Summary ---
Author Organization [facility] Address [address] [place] [address] Care Team Providers Care Commercial Administrator Name Role Phone Prudence Mena P.A.-C. Primary Care Pro vider Reason for Referral * Outpatient (Routine) - Closed Specialty Diagnoses / Procedures Referred By Contac t Referred To Contact Diagnoses Empyema Pleural (HCC) Procedures DX Chest AP or PA and Lateral 2 Views Kayleigh Small M.D. [address] [place] [address] Phone: tel: fax: [facility] Referral ID Status Reason Start Date Expiration Date Visits Re quested Visits Authorized [id number] Closed 07/18/2024 07/18/2025 1 1 WARE QUALITY ASSURANCE ENGINEER * Outpatient (Routine) - Closed Specialty Diagnoses / Procedures Referred By Contac t Referred To Contact Infectious Diseases Diagnoses Empyema Pleural (HCC) Kayleigh Small M.D. [address] [place] [address] Phone: tel: fax: [facility] Referral ID Status Reason Start Date Expiration Date Visits Re quested Visits Authorized [id number] Closed 07/18/2024 01/17/2026 1 1 WARE QUALITY ASSURANCE ENGINEER Reason for Visit * Reason Onset Date Comments Post Hospital Follow-up 07/18/2024 Encounter Details Date Type Department Care Team (Latest Contact Info) Description 07/18/2024 Clinical Communication [facility] [address] [place] [address] Kayleigh Samll M.D. [address] [place] [address] Post Hospital Follow-up Social History Tobacco Use Types Packs/Day Years Used Date Smoking Tobacco: Former Cigarettes 1.5 0.2 S tarted: 06/21/2024 Passive Smoke Exposure: Past Smokeless Tobacco: Never Alcohol Use Standard Drinks/Week Comments Yes 0 (1 standard drink = 0.6 oz pur e alcohol) socially [facility] [employer] Answer Date Recorded In the past 12 months has e electric, gas, oil, or water [employer] threatened to shut off services in your [...] Never 07/27/2022 How often do you attend rastafarian or baptist serv ices? Never 07/27/2022 Do you belong to any clubs o r organizations such as rastafarian groups, unions, fraternal or athletic groups, or [...] Score 6 07/10/2024 [facility] - Occupational Stress Questionnaire Answer Date Recorded [...] st Contact Info) Description 08/30/2024 9:00 AM SOFTWARE QUALITY ASSURANCE ENGINEER Office Visit Department of Community Internal Medicine in [place], [place] [address] [place] [address] Prudence Mena, LATONIAS, P.A.-C. [address] [place] [address] Scheduled Referrals Name Type Priority Associated Diagnoses Order Schedule Infectious Diseases office visit (clinic) Outpatient Referral Routine Empyema Pleural (HCC) Expected: 08/05/2024, Expires: 10/16/2025 documented as of this encounter Results * DX Chest AP or PA and Lateral 2 Views (08/05/2024 8:24 AM SOFTWARE QUALITY ASSURANCE ENGINEER) Anatomical Region Laterality Modality Chest, Thoracic RST LOS, Tho racic ARZ LOS, Thoracic FLA LOS N/A Digital Radiography Impressions 08/05/2024 8:30 AM SOFTWARE QUALITY ASSURANCE ENGINEER Compared with 07/26/2024. Stable areas of pleural and parenchymal scarring on the left. The small posterior left pleural effusion appears decreased. Right basilar atelectasis has resolved. Right PICC line in the upper right atrium. Chest otherwise negative. Narrative 08/05/2024 8:30 AM SOFTWARE QUALITY ASSURANCE ENGINEER EXAM: DX CHEST AP OR PA AND LATERAL 2 VIEWS Procedure Note Rashid Baig M.D. - 08/05/2024 EXAM: DX CHEST AP OR PA AND LATERAL 2 VIEWS IMPRESSION: Compared with 07/26/2024. Stable areas of pleural and parenchymal scarringon the left. The small posterior left pleural effusion appears decreased.Right basilar atelectasis has resolved. Right PICC line in the upper rightatrium. Chest otherwise negative. us Kayleigh Small M.D. [facility] DIAGNOSTIC IMAGING PROCEDURES Final Result documented in this encounter Visit Diagnoses Diagnosis Empyema Pleural (HCC)- Primary Empyema Pleural (HCC) documented in this encounter Additional Health Concerns Assessment Noted Time PHQ-9 Depression Total Score: 22 025 7:19 PM SOFTWARE QUALITY ASSURANCE ENGINEER documented as of this encounter Care Teams Commercial Administrator Relationship Specialty Start Date End Date Prudence Mena MPAS, P.A.-C. [address] [place] [phone] PCP - General Internal Medicine 02/08/24 documented as of this encounter
--- OUTSIDE RECORDS SUMMARY | 2024-08-28 18:19 | XMS_ITS | CCD ---
Author Name Interface, [id number] lity Address [address] [facility] [address] [address] [facility] Address [address] [facility] [address] [address] Care Team Providers Care Double Needle Stitcher Name Role Phone Karen Daley Unavailable Allergies [...] 32.0-32.9, adult Inactive Kidney stone (disorder) Active Chronic urinary bladder pain (finding) Active Neurogenic bladder (finding) Active Long-term current use of opiate analgesic Active Cyst of ovary (disorder) Active Candidal vulvovaginitis (disorder) Inactive Anismus (disorder) Active Social History Date Name Value Sex Female
--- OUTSIDE RECORDS SUMMARY | 2024-08-28 18:19 | XMS_ITS | Encounter Summary ---
Author Organization [facility] Address [address] [place] [id number] Care Team Providers Care Powerhouse Tender Name Role Phone Prudence Mena P.A.-C. Primary Care Pro vider Reason for Visit * Reason Comments Outpatient Infusion Encounter Details Date Type Department Care Team (Late st Contact Info) Description 07/27/2024 9:00 AM SKATE SHOP ATTENDANT Infusion Department of Infusion Therapy in [address] [phone] Melinda Isaac, FRED, C.N.P. [address] [place] [phone] Empyema Pleural (HCC) (Primary Dx) Social History Tobacco Use Types Packs/Day Years Used Date Smoking Tobacco: Former Cigarettes 1.5 0.2 S tarted: 06/21/2024 Passive Smoke Exposure: Past Smokeless Tobacco: Never Alcohol Use Standard Drinks/Week Comments Yes 0 (1 standard drink = 0.6 oz pur e alcohol) socially [facility] Utilities Answer Date Recorded [...] Never 07/27/2022 How often do you attend bahai or congregational serv ices? Never 07/27/2022 Do you belong to any clubs o r organizations such as bahai groups, unions, fraternal or athletic groups, or [...] Answer Date Recorded PHQ-2 Score 6 07/10/2024 [facility] of Occupat ional Health - Occupational Stress [...] Comments Blood Pressure 123/65 07/27/2024 9:18 AM SKATE SHOP ATTENDANT Pulse 110 07/27/2024 9:18 AM SKATE SHOP ATTENDANT Temperature 36.1 C (97 F) 07/27/2024 9:18 AM SKATE SHOP ATTENDANT Respiratory Rate 18 07/27/2024 9:18 AM SKATE SHOP ATTENDANT Oxygen Saturation 97% 07/27/2024 9:18 AM SKATE SHOP ATTENDANT Inhaled Oxygen Concentration - - Weight - - Height - - Body Mass Index - - documented in this encounter Plan of Treatment Upcoming Encounters Date Type Department Care Team (Late st Contact Info) Description 08/30/2024 9:00 AM SKATE SHOP ATTENDANT Office Visit Department of Community Internal Medicine in [place], [place] [address] [facility] [place] [phone] Prudence Mena MPAS, P.A.-C. [address] [place] [phone] documented as of this encounter Visit Diagnoses [...] infection, community acquired Given 07/27/2024 9:23 AM SKATE SHOP ATTENDANT 2 g sodium chloride 0.9 % injection 10-30 mL 10-30 mL, intravenous, As needed, line care, Starting on 07/27/24 at 0915, Prior to and following infusion, between multiple consecutive infusions.10 mL to each lumen.Indications:Empyema Pleural (HCC) Given 07/27/2024 9:29 AM SKATE SHOP ATTENDANT 10 mL Given 07/27/2024 9:23 AM SKATE SHOP ATTENDANT 10 mL documented in this encounter Additional Health Concerns Assessment Noted Time PHQ-9 Depression Total Score: 22 025 7:19 PM SKATE SHOP ATTENDANT documented as of this encounter Care Teams Powerhouse Tender Relationship Specialty Start Date End Date Prudence Mena MPAS, P.A.-C. [address] [facility] [place] [phone] PCP - General Internal Medicine 02/08/24 documented as of this encounter
--- OUTSIDE RECORDS SUMMARY | 2024-08-28 18:19 | XMS_ITS | Encounter Summary ---
Author Organization [facility] Address [address] [place] [address] Care Team Providers Care Master Certified Rv Technician Name Role Phone Prudence Mena P.A.-C. Primary Care Pro vider Encounter Details Date Type Department Care Team (Late st Contact Info) Description 07/26/2024 Results Follow-Up [facility] [address] [place] [phone] Lindsay Mejias, R.N. Sedimentation Rate Social History Tobacco Use Types Packs/Day Years Used Date Smoking Tobacco: Former Cigarettes 1.5 0.2 S tarted: 06/21/2024 Passive Smoke Exposure: Past Smokeless Tobacco: Never Alcohol Use Standard Drinks/Week Comments Yes 0 (1 standard drink = 0.6 oz pur e alcohol) socially [facility] Utilities Answer Date Recorded In the past 12 months has e [employer], gas, oil, or water [employer] threatened to shut off services in your [...] How often do you attend taoism or mandaen serv ices? Never 07/27/2022 Do [...] Answer Date Recorded PHQ-2 Score 6 07/10/2024 [facility] - Occupational Stress [...] st Contact Info) Description 08/30/2024 9:00 AM STRAIGHT KNIFE CUTTER MACHINE Office Visit Department of Community Internal Medicine in [place], [place] 300 [facility] [phone] Prudence Mena MPAS, P.A.-C. 300 [facility] [place] [facility] [place] [phone] documented as of this encounter Visit Diagnoses Not on filedocumented in this encounter Additional Health Concerns Assessment Noted Time PHQ-9 Depression Total Score: 22 025 7:19 PM STRAIGHT KNIFE CUTTER MACHINE documented as of this encounter Care Teams Master Certified Rv Technician Relationship Specialty Start Date End Date Prudence Mena MPAS, P.A.-C. [address] [place] [phone] PCP - General Internal Medicine 02/08/24 documented as of this encounter
--- OUTSIDE RECORDS SUMMARY | 2024-08-28 18:19 | XMS_ITS | Encounter Summary ---
Author Organization [facility] Address [address] [place] [address] Care Team Providers Care Lead Painter Name Role Phone Prudence Mena P.A.-C. Primary [...] oz pur e alcohol) socially [facility] Utilities Answer Date Recorded In the past 12 months has e [employer], gas, oil, or water [employer] threatened to shut off services in your [...] How often do you attend sabianist or jainism serv ices? Never 07/27/2022 Do [...] [facility] of Occupat ional Health - Occupational Stress [...] Comments Blood Pressure 124/68 07/13/2024 7:49 PM TOURIST AGENT Pulse - - Temperature 36.7 C (98.1 F) 07/13/2024 2:28 PM TOURIST AGENT Respiratory Rate 20 07/13/2024 7:49 PM TOURIST AGENT Oxygen Saturation 95% 07/13/2024 7:49 PM TOURIST AGENT Inhaled Oxygen Concentration - - Weight 96 kg (211 lb 10.3 oz) 07/13/2024 2:28 PM TOURIST AGENT Height - - Body Mass Index 36.13 07/11/2024 10:32 AM TOURIST AGENT documented in this encounter Functional Status * Intimate Partner Violence Question Answer Date of Assessment Author Within the last year, have y ou been humiliated or emotionally abused in other ways by your partner or ex-partner? No 07/15/2024 8:00 PM TOURIST AGENT Helena Brady R.N. Within the last year, have y ou been afraid of your partner or ex-partner? No 07/15/2024 8:00 PM TOURIST AGENT Helena Brady R.N. Within the last year, have y ou been raped or forced to have any kind of sexual activity by your partner or ex-partner? No 07/15/2024 8:00 PM TOURIST AGENT Helena Brady R.N. Within the last year, have y ou been kicked, hit, slapped, or otherwise physically hurt by your partner or ex-partner? No 07/15/2024 8:00 PM TOURIST AGENT Helena Brady R.N. documented as of this encounter Progress Notes * Khoa Delgado, M.SKisha, MonicaSDmitryW. - 07/13/2024 2:14 PM CST [facility]: ATC referral SUBJECTIVE Referral received from [facility] on 07/13/24, as part of hospital transfer request from [place], [place] (phone: [phone]). OBJECTIVE This patient was not accepted for transfer prior to the assessment process. This is a 39 y.o. year old female from [address] [place], [place] [phone]. The patient was admitted to their facility [...] this information to the family. Destiny Manuel, MonicaSDmitryW. 07/13/2024 IST AGENT documented in this encounter Plan of Treatment Upcoming Encounters Date Type Department Care Team (Late st Contact Info) Description 08/30/2024 9:00 AM TOURIST AGENT Office Visit Department of Community Internal Medicine in [place], [place] [address] [place] [phone] Prudence Mena MPAS, P.A.-C. [address] [place] [phone] documented as of this encounter Visit Diagnoses Not on filedocumented in this encounter Additional Health Concerns Assessment Noted Time PHQ-9 Depression Total Score: 22 025 7:19 PM TOURIST AGENT documented as of this encounter Care Teams Lead Painter Relationship Specialty Start Date End Date Prudence Mena MPAS, P.A.-C. [address] [place] [phone] PCP - General Internal Medicine 02/08/24 documented as of this encounter
--- OUTSIDE RECORDS SUMMARY | 2024-08-28 18:19 | XMS_ITS | Encounter Summary ---
Author Organization [facility] Address [address] [place] [address] Care Team Providers Care Supervisor Shop Name Role Phone Prudence Mena P.A.-C. Primary Care Pro vider Reason for Visit * Reason Comments Chest Wall Pain left Encounter Details Date Type Department Care Team (Late st Contact Info) Description 07/26/2024 9:14 AM CRUISE STAFF MEMBER - 07/26/2024 2:06 PM [facility] Emergency [facility] [address] [place] [phone] Dilcia Valero, SURVEY ANALYST, C.N.P. [address] [place] [phone] Pain Chest Wall (Primary Dx) Discharge Disposition: Home or Self Care Social History Tobacco Use Types Packs/Day Years Used Date Smoking Tobacco: Former Cigarettes 1.5 0.2 S tarted: 06/21/2024 Passive Smoke Exposure: Past Smokeless Tobacco: Never Alcohol Use Standard Drinks/Week Comments Yes 0 (1 standard drink = 0.6 oz pur e alcohol) socially [facility] Utilities Answer Date Recorded In the [...] How often do you attend yarsanism or christianity serv ices? Never 07/27/2022 Do [...] Answer Date Recorded PHQ-2 Score 6 07/10/2024 [facility] [place] of Occupat ional Health - Occupational Stress [...] Comments Blood Pressure 120/82 07/26/2024 1:45 PM CRUISE STAFF MEMBER Pulse 101 07/26/2024 1:45 PM CRUISE STAFF MEMBER Temperature 37.3 C (99.1 F) 07/26/2024 9:18 AM CRUISE STAFF MEMBER Respiratory Rate 18 07/26/2024 9:18 AM CRUISE STAFF MEMBER Oxygen Saturation 96% 07/26/2024 1:45 PM CRUISE STAFF MEMBER Inhaled Oxygen Concentration - - Weight - - Height - - Body Mass Index - - documented in this encounter Discharge Instructions * Discharge Instructions* Dilcia Valero APRN, C.N.P. - 07/26/2024 1:28 PM CRUISE STAFF MEMBER Fortunately your imaging and blood work today [...] such as fever, increased cough or pain. SE STAFF MEMBER * Attachments The following attachments cannot be sent through Care Everywhere. * How to Prevent Constipation After Surgery (Bahamian) * Chest Wall Pain Dwfs-un-Pqzp (Bahamian) documented in this encounter Medications at Time [...] 4.5 mg by mouth at bedtime. 10/11/2022 ondansetron (Zofran) 4 mg tablet Take 1 tablet (4 mg total) by mouth every 8 (eight) hours as needed for nausea or vomiting for up to 3 days. 10 tablet 07/26/2024 5 cefTRIAXone in dextrose, iso osm, (Rocephin) 2 gram/50 mL IVBPIndications: Empyema Pleural (HCC) Infuse 50 mL (2 g total) into a venous catheter daily for 17 days. [place] ITC 07/19/2024 5 methocarbamoL (Robaxin) 500 mg tablet Take 1 tablet (500 mg total) by mouth 3 (three) times a day as needed for muscle spasms. 45 tablet 07/20/2024 10:13 AM CRUISE STAFF MEMBER 07/19/2024 5 metroNIDAZOLE (FlagyL) 500 mg tabletIndication s:Empyema Take 1 tablet (500 mg total) by mouth 3 (three) times a day for 17 days Indications: Empyema. 51 tablet 07/20/2024 10:13 AM CRUISE STAFF MEMBER 07/19/2024 5 nitrofurantoin (MACRODANTIN) 50 mg capsule TAKE ONE CAPSULE BY MOUTH ONE TIME DAILY 90 capsule 3 04/21/2023 5 oxyCODONE (Roxicodone) 5 mg immediate release tabletIndication s:Acute Pain Exception Take 1 tablet (5 mg total) by mouth every 4 (four) hours as needed for severe pain or score 7-10 of 10 Indication: Acute Pain Exception. 21 tablet 07/25/2024 5 sennosides (senna) 8.6 mg tablet Take 2 tablets (17.2 mg total) by mouth daily. 07/20/2024 5 documented as of this encounter ED Notes * Dilcia Valero, FRED, C.N.P. - 07/26/2024 10:04 AM CST The patient verbally consented to an audio recording of their visit to assist with the completion of documentation. SUBJECTIVE CHIEF COMPLAINT/REASON FOR VISIT Chest Wall Pain (left) HISTORY OF PRESENT ILLNESS Melinda Kumar is a 39 y.o. 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 She comes to the emergency department today reporting increased pain on her left chest wall. She states she was doing well for the 1st 3 or 4 days after being discharged from the hospital but for the last 2 days has had increased pain to the left chest wall to the point where she is having trouble sleeping of the pressure on that side. She reports some increased cough and chest tightness as well. Has not had a fever. Procedure on 07/15/24, she had robotic thoracoscopy, surgeon noted left lower lobe adhesions to chest wall with pockets of pus. REVIEW OF SYSTEMS OBJECTIVE Initial Vitals Temperature 07/26/24 0918 37.3 ??C Pulse Rate 07/26/24 0918 105 Heart Rate -- Resp Rate 07/26/24 0918 18 Blood Pressure 07/26/24 0918 122/78 SpO2 07/26/24 0918 96 % Pain Score 07/26/24 0915 10 - Worst possible pain PHYSICAL EXAMINATION Constitutional: Nursing note and vitals reviewed. No distress. HENT: Head: Normocephalic and atraumatic. Mouth/Throat: Mucous membranes are moist. Eyes: Conjunctivae are normal. Neck: Neck supple. Cardiovascular: Normal rate, regular rhythm and normal heart sounds. Capillary refill: takes less than 3 secondsEdema: no edema noted No lower extremity swelling Pulmonary/Chest: Effort normal and breath sounds normal. There is normal air entry. No respiratory distress. Lungs are clear with good air movement Abdominal: Soft. Bowel sounds are normal. exhibits no distension. There is no abdominal tenderness.There is no rebound and no guarding. Musculoskeletal: General: No deformity or edema. Normal range of motion. Cervical back: Normal range of motion and neck supple. Neurological: Alert and oriented to person, place, and time. Skin: Skin is warm, dry and intact. She is not diaphoretic. She is floor surgical incisions on the left chest wall. The 1 underneath her left breast is just slightly open and we incision posterior to that is about 1 mm open, the other 2 are well approximated.None of them have erythema, edema, induration or purulent discharge. She is very tender to palpation, particularly around the posterior incision site. Psychiatric: She has a normal mood and affect. Behavior is normal. Judgment and thought content normal. ASSESSMENT/PLAN Assessment and Plan DIFFERENTIAL DIAGNOSES Increased pain in the setting of ongoing treatment for pleural empyema, concerning for worsening ofinfection, failure of outpatient treatment, chest wall infection associated with the procedure. Also considered pulmonary embolism.. I reviewed the following external records: inpatient records. ED Course as of 07/29/24 0906 MonJul 26, 2024 0934 She had blood work completed 2 days ago, white blood cell count was elevated at 12 which was up from 7 at time of discharge. 0957 CBC today shows leukocyte count of 11.1 which is actually slightly improved from 2 days ago. However platelet count continues to rise now at 792. Hemoglobin stable. 1005 DX Chest AP or PA and Lateral 2 Views Right upper extremity PICC with tip projected over the right atrium. Small left pleural effusion, similar to prior. Scattered linear scarring/atelectasis. The groundglass and tree-in-bud opacities seen on prior CT are not well seen within the limits of radiography. 1016 C-Reactive Protein (CRP), P(!): 43.3 Elevated, no recent for comparison 1017 Chemistry panel unremarkable 1106 No significant changes from most usually CT chest, 1128 Contact ATC Pat for ID consult 1147 Dr. Sharma, ID, not unusual to continue to see the pneumonia. Especially if afebrile and no jumpin her white count. ATC will contact surgical team. [address] Bauman, surgeon, he reviewed imaging, no concerning findings either intrathoracic or on her chest wall. Not uncommon to have pain control issues. Make sure has pain medication and taking consistently. 1336 Sedimentation Rate, B(!): 102 Final Diagnoses: as of 07/29/24 0906 Pain Chest Wall The following tests were considered but ultimately not performed: CT abdomen, did not have abdominal tenderness on exam. Escalation of care, including admission/observation, considered: Patient feeling a little better, bloodwork and imaging stable, has outpatient treatment plan and appropriate follow up.. I discussed the management of the patient with: Infectious disease, pulmonary surgery. Dilcia Valero APRN, C.N.P. 07/29/24 0920 SE STAFF MEMBER documented in this encounter Plan of Treatment Upcoming Encounters Date Type Department Care Team (Late st Contact Info) Description 08/30/2024 9:00 AM CRUISE STAFF MEMBER Office Visit Department of Community Internal Medicine in [place], [place] [address] [place] [phone] Prudence Mena MPAS, P.A.-C. [address] [place] [phone] documented as of this encounter Procedures Procedure Name Priority Date/Time Associated Diagnosis Comments CT CHEST ANGIOGRAM AND PULMONARY ARTERIES WITH IV CONTRAST RAD - Semiurgent (Fast; most ED patients; some inpatients) 07/26/2024 10:37 AM CRUISE STAFF MEMBER DX CHEST AP OR PA AND LATERAL 2 VIEWS RAD - Semiurgent (Fast; most ED patients; some inpatients) 07/26/2024 9:54 AM CRUISE STAFF MEMBER SEDIMENTATION RATE, B STAT 07/26/2024 9:44 AM CRUISE STAFF MEMBER CBC WITH DIFFERENTIAL, B STAT 07/26/2024 9:44 AM CRUISE STAFF MEMBER C-REACTIVE PROTEIN (CRP), S/P STAT 07/26/2024 9:44 AM CRUISE STAFF MEMBER BASIC METABOLIC PANEL, S/P STAT 07/26/2024 9:44 AM CRUISE STAFF MEMBER documented in this encounter Results * CT Chest Angiogram and Pulmonary Arteries with IV Contrast (07/26/2024 10:37 AM CRUISE STAFF MEMBER) Anatomical Region Laterality Modality Chest, Cardiovascular RST LO S, Thoracic ARZ LOS, Thoracic FLA LOS N/A Computed Tomography 07/26/2024 10:4 2 AM CRUISE STAFF MEMBER Impressions 07/26/2024 10:46 AM CRUISE STAFF MEMBER 1. Negative for acute pulmonary embolism. 2. Similar findings of multifocal pneumonia. 3. Stable small left pleural effusion. Narrative 07/26/2024 10:46 AM CRUISE STAFF MEMBER EXAM: CT CHEST ANGIOGRAM AND PULMONARY ARTERIES [...] left pleural effusion. Dilcia Valero APRN, C.N.P. IMG CT PROCEDURE S Final Result * DX Chest AP or PA and Lateral 2 Views (07/26/2024 9:54 AM CRUISE STAFF MEMBER) Anatomical Region Laterality Modality Chest, Thoracic RST LOS, Tho racic ARZ LOS, Thoracic FLA LOS N/A Digital Radiography Impressions 07/26/2024 9:59 AM CRUISE STAFF MEMBER Right upper extremity PICC with tip projected over the right atrium. Small left pleural effusion, similar to prior. Scattered linear scarring/atelectasis. The groundglass and tree-in-bud opacities seen on prior CT are not well seen within the limits of radiography. July 24, 2024 and July 19, 2024 comparisons. Narrative 07/26/2024 9:59 AM CRUISE STAFF MEMBER EXAM: DX CHEST AP OR PA AND [...] * Basic Metabolic Panel (07/26/2024 9:44 AM CRUISE STAFF MEMBER) Potassium, P 3.9 3.6 - 5.2 mmol/L 07/26/2024 10:15 AM CRUISE STAFF MEMBER CNFL Sodium, P 141 135 - 145 mmol/L 07/26/2024 10:15 AM CRUISE STAFF MEMBER CNFL Chloride, P 105 98 - 107 mmol/L 07/26/2024 10:15 AM CRUISE STAFF MEMBER CNFL Bicarbonate, P 25 22 - 29 mmol/L 07/26/2024 10:15 AM CRUISE STAFF MEMBER CNFL Anion Gap, P 11 7 - 15 07/26/2024 10:15 AM CRUISE STAFF MEMBER CNFL BUN (Blood Urea Nitrogen), P 10 6 - 21 mg/dL 07/26/2024 10:15 AM CRUISE STAFF MEMBER CNFL Creatinine 0.62 0.59 - 1.04 mg/dL 07/26/2024 10:15 AM CRUISE STAFF MEMBER CNFL Estimated GFR (eGFR) >90 >=60 mL/min/BSA 07/26/2024 10:15 AM CRUISE STAFF MEMBER CNFL Comment: Estimated GFR calculated using the 2020 CKD_EPI creatinine equation. Calcium, Total, P 8.8 8.6 - 10.0 mg/dL 07/26/2024 10:15 AM CRUISE STAFF MEMBER CNFL Glucose, P 122 70 - 140 mg/dL 07/26/2024 10:15 AM CRUISE STAFF MEMBER CNFL Blood (Blood, Venous) 07/26/2024 9:44 AM CRUISE STAFF MEMBER 07/26/2024 9:48 AM CRUISE STAFF MEMBER us Dilcia Valero APRN, C.N.P. LAB BLOOD ADD-ON Final Result [facility] [address] [place] [phone], [facility] CNFL [facility] in [address] [address] * (ABNORMAL) Sedimentation Rate (07/26/2024 9:44 AM CRUISE STAFF MEMBER) Sedimentation Rate, B 102(H) 0 - 29 mm/1 h 07/26/2024 1:33 PM CRUISE STAFF MEMBER RDWG Blood (Blood, Venous) 07/26/2024 9:44 AM CRUISE STAFF MEMBER 07/26/2024 12:52 PM CRUISE STAFF MEMBER us Dilcia Valero APRN, C.N.P. LAB BLOOD ADD-ON Final Result Performing Organization Address City/[facility]/ZIP Co de Phone Number [facility] [address] [place] [address], [facility] RDWG [facility] in [place] [address] [place] [phone] * (ABNORMAL) CRP (C-Reactive Protein) (07/26/2024 9:44 AM CRUISE STAFF MEMBER) C-Reactive Protein (CRP), P 43.3(H) <5.0 mg/L 07/26/2024 10:15 AM CRUISE STAFF MEMBER CNFL Blood (Blood, Venous) 07/26/2024 9:44 AM CRUISE STAFF MEMBER 07/26/2024 9:48 AM CRUISE STAFF MEMBER us Dilcia Valero APRN, C.N.P. LAB BLOOD ADD-ON Final Result Performing Organization Address City/[facility]/ZIP Co de Phone Number [facility] [address] [place] [phone], [place] CNFL [facility] in [address] [address] * (ABNORMAL) CBC with Differential, Blood (07/26/2024 9:44 AM CRUISE STAFF MEMBER) Hemoglobin 9.8(L) 11.6 - 15.0 g/dL 07/26/2024 9:55 AM CRUISE STAFF MEMBER CNFL Hematocrit 31.4(L) 35.5 - 44.9 % 07/26/2024 9:55 AM CRUISE STAFF MEMBER CNFL Erythrocytes 3.55(L) 3.92 - 5.13 x10(12)/L 07/26/2024 9:55 AM CRUISE STAFF MEMBER CNFL MCV 88.5 78.2 - 97.9 fL 07/26/2024 9:55 AM CRUISE STAFF MEMBER CNFL RBC Distrib Width 15.4 12.2 - 16.1 % 07/26/2024 9:55 AM CRUISE STAFF MEMBER CNFL Platelet Count 792(H) 157 - 371 x10(9)/L 07/26/2024 9:55 AM CRUISE STAFF MEMBER CNFL Leukocytes 11.1(H) 3.4 - 9.6 x10(9)/L 07/26/2024 9:55 AM CRUISE STAFF MEMBER CNFL Neutrophils 8.16(H) 1.56 - 6.45 x10(9)/L 07/26/2024 9:55 AM CRUISE STAFF MEMBER CNFL Lymphocytes 1.74 0.95 - 3.07 x10(9)/L 07/26/2024 9:55 AM CRUISE STAFF MEMBER CNFL Monocytes 0.79 0.26 - 0.81 x10(9)/L 07/26/2024 9:55 AM CRUISE STAFF MEMBER CNFL Eosinophils 0.36 0.03 - 0.48 x10(9)/L 07/26/2024 9:55 AM CRUISE STAFF MEMBER CNFL Basophils 0.07 0.01 - 0.08 x10(9)/L 07/26/2024 9:55 AM CRUISE STAFF MEMBER CNFL Blood (Blood, Venous) 07/26/2024 9:44 AM CRUISE STAFF MEMBER 07/26/2024 9:48 AM CRUISE STAFF MEMBER us Dilcia Valero APRN, C.N.P. LAB BLOOD ADD-ON Final Result Performing Organization Address City/State/RUST Co de Phone Number [facility] [address] [place] [phone], [facility] CNFL [facility] in [address] [phone] documented in this encounter Visit Diagnoses Diagnosis [...] For 3 doses Given 07/26/2024 1:48 PM CRUISE STAFF MEMBER 0.5 mg Given 07/26/2024 11:39 AM CRUISE STAFF MEMBER 0.5 mg HYDROmorphone injection 1 mg (Dilaudid) 1 mg, intravenous, Once, On Mon07/26/24 at 0933, For 1 dose Given 07/26/2024 9:38 AM CRUISE STAFF MEMBER 1 mg iopromide 370 mg iodine/mL injection 100 mL (Ultravist) 100 mL, intravenous, Once in imaging, contrast, Starting on Mon07/26/24 at 1021, For 1 dose Given 07/26/2024 10:35 AM CRUISE STAFF MEMBER 100 mL ondansetron (PF) injection 4 mg (Zofran) 4 mg, intravenous, Once, On Mon07/26/24 at 0937, For 1 dose Given 07/26/2024 9:38 AM CRUISE STAFF MEMBER 4 mg sodium chloride 0.9 % flush 80 mL 80 mL, intravenous, Once in imaging, line care, Starting on Mon07/26/24 at 1021, For 1 dose Given 07/26/2024 10:35 AM CRUISE STAFF MEMBER 80 mL sodium chloride 0.9 % injection 10 mL 10 mL, intravenous, As needed, line care, Starting on Mon07/26/24 at 1021 Given 07/26/2024 10:35 AM CRUISE STAFF MEMBER 10 mL Given 07/26/2024 10:34 AM CRUISE STAFF MEMBER 10 mL documented in this encounter Active and Recently Administered Medications Times are shown in CRUISE STAFF MEMBER. Scheduled Medication Order 07/24/2024 07/25/2024 07/26/2024 HYDROmorphone [...] 1139 (Given - Provid er: Alejandra Pride R.N.)1348 (Given - Provider: Alejandra Pride R.N.) iopromide 370 mg iodine/mL injection 100 mL (Ultravist) (COMPLETED) 100 mL, intravenous, Once in imaging, contrast, Starting on Mon07/26/24 at 1021, For 1 dose 1035 (Given - Provid er: Senait Ruiz R.T.(R)(CT), R.T.(R)) sodium chloride 0.9 % flush [...] Senait Ruiz, R.T.(R)(CT), R.T.(R))1035 (Given - Provider: Eleazar Franklin.T.(R)(CT), R.T.(R)) documented in this encounter Additional Health Concerns Assessment Noted Time PHQ-9 Depression Total Score: 22 025 7:19 PM CRUISE STAFF MEMBER documented as of this encounter Care Teams Supervisor Shop Relationship Specialty Start Date End Date Prudence Mena MPAS, P.A.-C. [address] [place] [phone] PCP - General Internal Medicine 02/08/24 documented as of this encounter
--- OUTSIDE RECORDS SUMMARY | 2024-08-28 18:19 | XMS_ITS | Encounter Summary ---
Author Organization [facility] Address [address] [place] [phone] Care Team Providers Care Precision Honing Machine Operator Name Role Phone Prudence Mena P.A.-C. Primary Care Pro vider Reason for Visit * Reason Comments Outpatient Infusion Rocephin Encounter Details Date Type Department Care Team (Late st Contact Info) Description 07/28/2024 9:00 AM EXTRACTOR OPERATOR HELPER Infusion Department of Infusion Therapy in [address] [phone] Melinda Isaac, FRED, C.N.P. [address] [place] [phone] Empyema Pleural (HCC) (Primary Dx) Social History Tobacco Use Types Packs/Day Years Used Date Smoking Tobacco: Former Cigarettes 1.5 0.2 S tarted: 06/21/2024 Passive Smoke Exposure: Past Smokeless Tobacco: Never Alcohol Use Standard Drinks/Week Comments Yes 0 (1 standard drink = 0.6 oz pur e alcohol) socially [facility] Utilities Answer Date Recorded In [...] Never 07/27/2022 How often do you attend sabianism or anabaptism serv ices? Never 07/27/2022 Do you belong to any clubs o r organizations such as sabianism groups, unions, fraternal or athletic groups, or [...] Answer Date Recorded PHQ-2 Score 6 07/10/2024 [facility] [place] of Occupat ional Health - Occupational Stress [...] Comments Blood Pressure 138/86 07/28/2024 9:13 AM EXTRACTOR OPERATOR HELPER Pulse 112 07/28/2024 9:13 AM EXTRACTOR OPERATOR HELPER Temperature 35.5 C (95.9 F) 07/28/2024 9:13 AM EXTRACTOR OPERATOR HELPER Respiratory Rate 18 07/28/2024 9:13 AM EXTRACTOR OPERATOR HELPER Oxygen Saturation 94% 07/28/2024 9:13 AM EXTRACTOR OPERATOR HELPER Inhaled Oxygen Concentration - - Weight - - Height - - Body Mass Index - - documented in this encounter Plan of Treatment Upcoming Encounters Date Type Department Care Team (Late st Contact Info) Description 08/30/2024 9:00 AM EXTRACTOR OPERATOR HELPER Office Visit Department of Community Internal Medicine in [place], [place] [address] [facility] [place] [phone] Prudence Mena MPAS, P.A.-C. [address] [place] [phone] documented as of this encounter Visit Diagnoses [...] infection, community acquired Given 07/28/2024 9:14 AM EXTRACTOR OPERATOR HELPER 2 g sodium chloride 0.9 % injection 10-30 mL 10-30 mL, intravenous, As needed, line care, Starting on 07/28/24 at 0905, Prior to and following infusion, between multiple consecutive infusions.10 mL to each lumen.Indications:Empyema Pleural (HCC) Given 07/28/2024 9:23 AM EXTRACTOR OPERATOR HELPER 10 mL Given 07/28/2024 9:15 AM EXTRACTOR OPERATOR HELPER 10 mL documented in this encounter Additional Health Concerns Assessment Noted Time PHQ-9 Depression Total Score: 22 025 7:19 PM EXTRACTOR OPERATOR HELPER documented as of this encounter Care Teams Precision Honing Machine Operator Relationship Specialty Start Date End Date Prudence Mena MPAS, P.A.-C. [address] [facility] [place] [phone] PCP - General Internal Medicine 02/08/24 documented as of this encounter
--- NOTE | 2024-08-28 20:39 | ED_ITS ---
HPI - General Adult General Chief complaint: Nausea/Vomiting Stated complaint: nausea, post op Time Seen by Provider: 08/28/24 20:39 History of Present Illness HPI narrative: Nausea and vomiting since Sat Post-op appt yesterday- told to go off oxycodone. Took oxy last yesterday and vomiting got worse. Last void was yesterday. Diarrhea as well 39-year-old woman presenting to the emergency department with concern of vomiting and diarrhea. Has abdominal pain as well. Diagnosed here with parapneumonic effusion and pneumonia on June 30 and ultimately treated at [place] with placement of chest tubes per report. Did have her postop follow-up yesterday. Had been struggling with nausea throughout the course course and had been vomiting. Thoracic surgeon told her to discontinue oxycodone. Yesterday chest x-ray was done she says that overall looked in improved with only a very small effusion remaining. She is not reporting increased shortness of breath. Did yet take 1 tablet of oxycodone yesterday morning. With this postop follow- up was prescribed methocarbamol but has not yet filled this prescription. Has been vomiting now 4th or 5th day. No fever. Does have some pleuritic pain or at least with deeper inspiratory effort. Was seen 1 month ago with postop pain in this emergency department and refilled of some oxycodone. No hematemesis or hematochezia noted. Is very thirsty. Less voiding. Has had rather loose or diarrheal stools she says since her surgery and has gotten somewhat worse. Related Data Home Medications ?Medication ?Instructions ?Recorded ?Confirmed albuterol sulfate 2.5 mg/3 mL 2.5 mg inhalation Q4H PRN wheezing 08/17/23 08/28/24 (0.083 %) solution for nebulization albuterol sulfate 90 mcg/actuation 2 puff inhalation Q4H PRN wheezing 08/17/23 08/28/24 aerosol inhaler (Ventolin HFA) bupropion HCl 150 mg 24 hr tablet, 150 mg PO QAM 08/17/23 08/28/24 extended release bupropion HCl 300 mg 24 hr tablet, 300 mg PO QAM 08/17/23 08/28/24 extended release cholecalciferol (vitamin D3) 50 50 mcg PO DAILY 08/17/23 08/28/24 mcg (2,000 unit) capsule elagolix 150 mg tablet (Orilissa) 150 mg PO DAILY 08/17/23 08/28/24 fluticasone propionate 115 2 puff inhalation Q12H 08/17/23 08/28/24 mcg-salmeterol 21 mcg/actuation HFA inhaler lisinopril 10 mg tablet 10 mg PO DAILY 08/17/23 08/28/24 lorazepam 0.5 mg tablet 0.5 mg PO DAILY PRN anxiety 08/17/23 08/28/24 pregabalin 200 mg capsule 200 mg PO TID 08/17/23 08/28/24 trazodone 50 mg tablet 50 - 200 mg PO HS PRN insomnia 08/17/23 08/28/24 cariprazine 4.5 mg capsule 4.5 mg PO DAILY 06/30/24 08/28/24 (Vraylar) dextroamphetamine sulfate 15 mg 15 mg PO DAILY 06/30/24 08/28/24 capsule,extended release dextroamphetamine-amphetamine 10 1 tab PO DAILY@1200 06/30/24 08/28/24 mg tablet duloxetine 60 mg capsule,delayed 60 mg PO DAILY 06/30/24 08/28/24 release ipratropium 0.5 mg-albuterol 3 mg 3 ml inhalation Q4H PRN 06/30/24 08/28/24 (2.5 mg base)/3 mL nebulization soln Previous Rx's ?Medication ?Instructions ?Recorded famotidine 20 mg tablet 20 mg PO BID #60 tabs 08/28/24 potassium chloride 20 mEq oral 20 meq PO DAILY #30 ea 08/28/24 packet promethazine 25 mg rectal 25 mg WV Q6H PRN nausea and 08/28/24 suppository vomiting #12 ea Allergies Allergy/AdvReac Type Severity Reaction Status Date / Time Blood-Group Specific Allergy Unknown Uncoded 07/28/24 21:27 Substance Review of Systems Status of ROS: Reports: 6 or more systems reviewed and unremarkable except as noted in History and below [facility] Medical History Parapneumonic effusion ?J18.9 - Pneumonia, unspecified organism (ICD-10) ?J91.8 - Pleural effusion in other conditions classified elsewhere (ICD-10) Intervertebral disc disorder with radiculopathy of lumbar region ?M51.16 - Intervertebral disc disorders with radiculopathy, lumbar region (ICD-10) Low back pain ?M54.50 - Low back pain, unspecified (ICD-10) Major depressive disorder ?F32.9 - Major depressive disorder, single episode, unspecified (ICD-10) Anxiety ?F41.9 - Anxiety disorder, unspecified (ICD-10) Herpes zoster ?B02.9 - Zoster without complications (ICD-10) Iron deficiency anemia ?D50.9 - Iron deficiency anemia, unspecified (ICD-10) Hypertension ?I10 - Essential (primary) hypertension (ICD-10) Surgical History History of hysterectomy ?Z90.710 - Acquired absence of both cervix and uterus (ICD-10) Social History What is your current living situation?: I presently have a place to live Problems where you live: no known problems Problems where you live details: N/A In the past 12 months, utilities in danger of being shut off: no In past 12 months, lack of transportation kept you from medical appts, meetings, work, or getting things needed for daily living: no In the past 12 mos, have been you worried that your food would run out before you had money to buy more?: never true In the past 12 mos, the food you bought just didn't last and you didn't have money to buy more?: never true Highest level of school completed/degree received: high school graduate Smoking Status: Former smoker What tobacco products do you use: cigarettes Smoking quit date/years: <= 15 years ago Do you use any of these nicotine containing products: None Nicotine containing products detail: 2 weeks Second hand tobacco smoke exposure: No How often do you have a drink containing alcohol: monthly or less How often do you have six or more drinks on one occasion: Never AUDIT-C Alcohol total score: 1 Non-prescribed substance use: denies use Caffeine: Yes (Mtn Dew 1-2 daily) How often does anyone, including family, friends and others, physically hurt you : never How often does anyone, including family, friends and others, insult or talk down to you: never How often does anyone, including family, friends and others, threaten you with harm: never How often does anyone, including family, friends and others, scream or curse at you: never service: No Exam Narrative: Exam Narrative: Pleasant. Has plastic bag inside waste can at the ready. Looks general little uncomfortable. Subtly labored in breathing. Lungs actually appear to be clear. She is not tachypneic. Oropharynx is sticky. Neck is supple without lymphadenopathy. Heart is in elevated rate and regular rhythm. Abdomen is full soft and tender diffusely without peritoneal signs. Extremities are well perfused without edema. Const: Vital Signs, click to edit/add: Vital Signs - 24 hr 08/28/24 18:50 08/28/24 21:08 08/28/24 21:17 Temperature 96.3 F L 96.3 F L Pulse Rate 95 Pulse Rate [Pulse Oximeter] 108 H Respiratory Rate 18 Blood Pressure 147/111 H Blood Pressure [Le ft Upper Arm] 131/93 H Pulse Oximetry 97 98 Oxygen Delivery Me thod Room Air 08/28/24 21:18 08/28/24 21:30 08/28/24 21:31 Temperature Pulse Rate 94 99 94 Pulse Rate [Pulse Oximeter] Respiratory Rate Blood Pressure 145/101 H Blood Pressure [Le ft Upper Arm] Pulse Oximetry 97 99 100 Oxygen Delivery Me thod 08/28/24 21:45 08/28/24 22:00 08/28/24 22:01 Temperature Pulse Rate 95 84 92 Pulse Rate [Pulse Oximeter] Respiratory Rate Blood Pressure 160/105 H Blood Pressure [Le ft Upper Arm] Pulse Oximetry 99 98 99 Oxygen Delivery Me thod 08/28/24 22:15 08/28/24 22:30 08/28/24 22:32 Temperature Pulse Rate 81 101 H 99 Pulse Rate [Pulse Oximeter] Respiratory Rate Blood Pressure 155/104 H Blood Pressure [Le ft Upper Arm] Pulse Oximetry 99 99 95 Oxygen Delivery Me thod 08/28/24 22:45 08/28/24 22:49 08/28/24 22:50 Temperature 98.3 F Pulse Rate 95 89 Pulse Rate [Pulse Oximeter] 90 Respiratory Rate 16 Blood Pressure 156/97 H Blood Pressure [Le ft Upper Arm] 156/97 H Pulse Oximetry 98 98 98 Oxygen Delivery Me thod Room Air 08/28/24 22:51 08/28/24 23:00 08/28/24 23:01 Temperature Pulse Rate 92 101 H 99 Pulse Rate [Pulse Oximeter] Respiratory Rate Blood Pressure 158/104 H Blood Pressure [Le ft Upper Arm] Pulse Oximetry 96 100 97 Oxygen Delivery Me thod 08/28/24 23:15 08/28/24 23:30 08/28/24 23:32 Temperature Pulse Rate 92 90 85 Pulse Rate [Pulse Oximeter] Respiratory Rate Blood Pressure 149/103 H Blood Pressure [Le ft Upper Arm] Pulse Oximetry 97 97 96 Oxygen Delivery Me thod 08/28/24 23:33 08/28/24 23:45 Temperature Pulse Rate 91 95 Pulse Rate [Pulse Oximeter] Respiratory Rate Blood Pressure Blood Pressure [Le ft Upper Arm] Pulse Oximetry 97 97 Oxygen Delivery Me thod Documenting provider has reviewed patient's vital signs: yes Course Vital Signs Vital signs: Initial Vital Signs Temperature 96.3 F L 08/28/24 18:50 Temperature Source Temporal Artery Scan 08/28/24 18:50 Pulse Rate 108 H 08/28/24 18:50 Respiratory Rate 18 08/28/24 18:50 Blood Pressure 131/93 H 08/28/24 18:50 Blood Pressure Mean 105 08/28/24 18:50 Blood Pressure Position Sitting 08/28/24 18:50 Pulse Oximetry 97 08/28/24 18:50 Oxygen Delivery Method Room Air 08/28/24 18:50 Vital Signs Temperature 96.3 F L 08/28/24 18:50 Pulse Rate 108 H 08/28/24 18:50 Respiratory Rate 18 08/28/24 18:50 Blood Pressure 131/93 H 08/28/24 18:50 Pulse Oximetry 97 08/28/24 18:50 Oxygen Delivery Method Room Air 08/28/24 18:50 Temperature 98.3 F 08/28/24 22:49 Pulse Rate 95 08/28/24 23:45 Respiratory Rate 16 08/28/24 22:49 Blood Pressure 149/103 H 08/28/24 23:32 Pulse Oximetry 97 08/28/24 23:45 Oxygen Delivery Method Room Air 08/28/24 22:49 Medications Administered Medications: Discontinued Medications Generic Name Dose Route Start Last Admin Trade Name Freq PRN Reason Stop Dose Admin Hyoscyamine 0.25 mg 08/28/24 20:54 02/26/25 21:08 Hyoscyamine Sulfate 0.125 Mg Tab SUBLINGUAL 08/28/24 20:55 0.25 mg ONCE ONE Administration Sodium Chloride 1,000 mls @ 1,000 mls/hr 08/28/24 20:54 08/28/24 21:08 0.9 % Sodium Chloride 1000 Ml IV 08/28/24 21:53 1,000 mls/hr .Q1H ONE Administration Metoclopramide HCl 10 mg/ 102 mls @ 306 mls/hr 08/28/24 20:54 08/28/24 21:06 Sodium Chloride IVPB 08/28/24 20:55 306 mls/hr ONCE ONE Administration Potassium Chloride 10 meq in 100 mls @ 100 mls/hr 08/28/24 21:41 08/28/24 21:50 Potassium Chloride IVPB 08/28/24 22:40 100 mls/hr ONCE ONE Administration Lactated Ringer's 1,000 mls @ 1,000 mls/hr 08/28/24 21:48 08/28/24 22:25 Lactated Ringers 1000 Ml IV 08/28/24 22:47 1,000 mls/hr .Q1H ONE Administration Ketorolac Tromethamine 30 mg 08/28/24 20:54 08/28/24 21:08 Ketorolac 30 Mg/Ml Inj IVP 08/28/24 20:55 30 mg ONCE ONE Administration Morphine Sulfate 4 mg 08/28/24 22:02 08/28/24 22:26 Morphine 4 Mg/Ml Inj IVP 08/28/24 22:03 4 mg ONCE ONE Administration Morphine Sulfate 4 mg 08/28/24 23:46 08/28/24 23:57 Morphine 4 Mg/Ml Inj IVP 08/28/24 23:47 4 mg ONCE ONE Administration Ondansetron HCl 4 mg 08/28/24 22:02 08/28/24 22:25 Ondansetron 2 Mg/Ml Inj IVP 08/28/24 22:03 4 mg ONCE ONE Administration Pantoprazole Sodium 40 mg 08/28/24 23:06 08/28/24 23:11 Pantoprazole Sodium 40 Mg Inj IVP 08/28/24 23:07 40 mg ONCE ONE Administration Potassium Bicarbonate 25 meq 08/28/24 21:41 08/28/24 21:51 Potassium Bicarb 25 Meq Effervescent Tab PO 08/28/24 21:42 25 meq ONCE ONE Administration Promethazine HCl 12.5 mg 08/28/24 23:46 08/28/24 23:55 Promethazine 25 Mg/Ml Inj IVP 08/28/24 23:47 12.5 mg ONCE ONE Administration Medical Decision Making MDM Narrative Medical decision making narrative: Nausea and vomiting of unclear etiology. I suppose some of this could be withdrawal. It seems to have vomiting and diarrheal illness of unclear etiology with soft abdomen. Might have Clostridium difficile considering rounds of antibiotics recently. Appears well otherwise from a respiratory standpoint. Would hydrate. Check labs to prompt further workup. Recent chest x-ray, yesterday, was reportedly reassuring. She has been hypokalemic in the past. Will try to offer symptom relief. Does have Zofran available was has not been particularly helpful. Will try Reglan initially. Swab for COVID and influenza. On reassessment still with pain and nausea. Also given ketorolac. Labs are reassuring at this point with normal white count and hemoglobin although potassium other low at 2.7. Reviewing records has been somewhat hypokalemic in the past. Reassessed still with pain and would appreciate morphine when offered. Given IV potassium bump along with 25 meq oral. Reports now finally improved. Nausea improved. Abdomen is soft on reexamination with only minimal generalized tenderness. Pain, but particularly nausea escalated again and treated with IV promethazine and 1 more dose of morphine. Had not completely finished oral potassium at time of departure from the emergency department. She intends to take more as outpatient. Continue to focus on hydration. Consider reconstituting Gatorade or Powerade powder for electrolyte drink. Can continue with Zofran but also prescribing promethazine suppositories for [place]. Prescribing famotidine for acid reduction in your stomach that I would like you to take for a couple of weeks. Prescribing also potassium supplementation. Would like you to recheck potassium then early next week or at least within 1 week. If diarrhea continues, would collect for stool culture and assessment again for Clostridium difficile. This can be dropped here or at your clinic. Medical Records Medical records reviewed: Yes I reviewed the patient's medical records Lab Data Lab results reviewed: Yes I reviewed the patient's lab results Labs: Lab Results 08/28/24 08/28/24 Range/Units 21:10 23:03 WBC 10.87 (4.50-11.00) K/uL RBC 4.77 (4.00-5.20) m/uL Hgb 11.9 L (12.0-16.0) gm/dL Hct 38.9 (33.0-51.0) % MCV 82 (80-100) fL MCH 25 L (26-34) pg MCHC 31 L (32-36) gm/dL RDW Coeff of Mayank 16.5 H (11.5-15.5) % Plt Count 765 H (140-440) K/uL Neut % (Auto) 68.9 (42.0-72.0) % Lymph % (Auto) 21.3 (20-44) % [place] % (Auto) 7.3 (0.0-11.0) % Eos % (Auto) 1.9 (0.0-7.0) % Baso % (Auto) 0.5 (0.0-3.0) % Neut # (Auto) 7.49 H (1.7-7.0) K/uL Lymph # (Auto) 2.32 (0.90-2.90) K/uL [place] # (Auto) 0.80 (0.00-0.90) K/UL Eos # (Auto) 0.21 (0.00-0.50) K/uL Baso # (Auto) 0.05 (0.00-0.30) K/uL Abs Immat Gran (auto) 0.01 (0.00-0.30) K/uL Imm/Tot Granulo (auto) 0.1 % Sodium 143 (135-149) mmol/L Potassium 2.7 L* (3.6-5.1) mmol/L Chloride 101 (96-114) mmol/L Carbon Dioxide 23 (20-32) mmol/L Anion Gap 19 H (7-15) mEq/L BUN 13 (5-24) mg/dL Creatinine 0.6 (0.5-1.5) mg/dL Estimated Creat Clear 109.78 Estimated GFR 118 ml/min Glucose 95 (60-115) mg/dL Lactate 1.1 (0.5-1.9) mmol/L Calcium 9.9 (8.4-10.6) mg/dL Magnesium 1.7 (1.5-2.6) mg/dL Total Bilirubin 0.4 (0.1-1.5) mg/dL Direct Bilirubin 0.3 (0.0-0.5) mg/dL AST 19 (12-35) U/L ALT 12 (4-35) U/L Alkaline Phosphatase 91 (40-150) U/L C-Reactive Protein 1.6 H (0.5-1.0) mg/dL Total Protein 8.0 (6.0-8.3) g/dL Albumin 4.9 (3.3-5.0) g/dL Lipase 122 (23-300) U/L SARS-CoV-2 (PCR) Negative SARS-CoV-2 (Negative) Influenza Type A (PCR) Negative PCR FLU A (Negative) Influenza Type B (PCR) Negative PCR FLU B (Negative) RSV (PCR) Negative PCR RSV (Negative) Lab Acknowledgement Test Added Discharge Plan Discharge Clinical Impression: Vomiting, Dehydration, Diarrhea, Hypokalemia, Abdominal pain Patient Disposition: Home w/ Parent or Adult Condition: Improved Additional Instructions: Continue to focus on hydration. Consider reconstituting Gatorade or Powerade powder for electrolyte drink. Can continue with Zofran but also prescribing promethazine suppositories for nausea. Prescribing famotidine for acid reduction in your stomach that I would like you to take for a couple of weeks. Prescribing also potassium supplementation. Would like you to recheck potassium then early next week or at least within 1 week. If diarrhea continues, would collect for stool culture and assessment again for Clostridium difficile. This can be dropped here or at your clinic. Prescriptions: New promethazine 25 mg suppository 25 mg WV Q6H PRN (Reason: nausea and vomiting) Qty: 12 1RF famotidine 20 mg tablet 20 mg PO BID Qty: 60 2RF potassium chloride 20 mEq packet 20 meq PO DAILY Qty: 30 0RF No Action albuterol sulfate 2.5 mg /3 mL (0.083 %) solution for nebulization 2.5 mg inhalation Q4H PRN (Reason: wheezing) trazodone 50 mg tablet 50 - 200 mg PO HS PRN (Reason: insomnia) lorazepam 0.5 mg tablet 0.5 mg PO DAILY PRN (Reason: anxiety) lisinopril 10 mg tablet 10 mg PO DAILY albuterol sulfate [Ventolin HFA] 90 mcg/actuation HFA aerosol inhaler 2 puff inhalation Q4H PRN (Reason: wheezing) bupropion HCl 300 mg tablet extended release 24 hr 300 mg PO QAM Patient Comments: TOTAL DOSE = 450MG bupropion HCl 150 mg tablet extended release 24 hr 150 mg PO QAM Patient Comments: TOTAL DOSE = 450MG pregabalin 200 mg capsule 200 mg PO TID fluticasone propion-salmeterol 115-21 mcg/actuation HFA aerosol inhaler 2 puff INHALATION Q12H cholecalciferol (vitamin D3) 50 mcg (2,000 unit) capsule 50 mcg PO DAILY Orilissa 150 mg tablet 150 mg PO DAILY dextroamphetamine sulfate 15 mg capsule, extended release 15 mg PO DAILY dextroamphetamine-amphetamine 10 mg tablet 1 tab PO DAILY@1200 Vraylar 4.5 mg capsule 4.5 mg PO DAILY duloxetine 60 mg capsule,delayed release(DR/EC) 60 mg PO DAILY ipratropium-albuterol 0.5 mg-3 mg(2.5 mg base)/3 mL solution for nebulization 3 ml inhalation Q4H PRN Follow Up/Referrals: Prudence Mena PA-C [Primary Care Provider] - Stand Alone Forms: [facility] Info Instructions
[2024-08-28] MEDS: METOCLOPRAMIDE HCL 10 MG in 0.9 % SODIUM CHLORIDE 100 ml 100 ML 306 MG IVPB (21:06)
[2024-08-28] MEDS: KETOROLAC 30 MG/ML inj IVP (21:08)
[2024-08-28] MEDS: HYOSCYAMINE SULFATE 0.125 MG TAB 0.25 MG SUBLINGUAL (21:08)
[2024-08-28] MEDS: 0.9 % SODIUM CHLORIDE 1000 ml 1,000 ML IV (21:08)
[2024-08-28 21:18] LABS: Basophils Absolute Auto 0.05 K/uL (0.00-0.30); Basophils Percent Auto 0.5 % (0.0-3.0); Eosinophils Absolute Auto 0.21 K/uL (0.00-0.50); Eosinophils Percent Auto 1.9 % (0.0-7.0); Hematocrit 38.9 % (33.0-51.0); Hemoglobin* 11.9 gm/dL (12.0-16.0); Immature Granulocytes Abs Auto 0.01 K/uL (0.00-0.30); Immature Granulocytes Pct Auto 0.1 %; Lactate* 1.1 mmol/L (0.5-1.9); Lymphocytes Absolute Auto 2.32 K/uL (0.90-2.90); Lymphocytes Percent Auto 21.3 % (20-44); Mean Corpuscular HGB Conc 31 gm/dL (32-36); Mean Corpuscular Hemoglobin 25 pg (26-34); Mean Corpuscular Volume 82 fL (80-100); Monocytes Percent Auto 7.3 % (0.0-11.0); Neutrophils Absolute Auto 7.49 K/uL (1.7-7.0); Neutrophils Percent Auto 68.9 % (42.0-72.0); Platelet Count* 765 K/uL (140-440); RDW Coefficient of Variation % 16.5 % (11.5-15.5); Red Blood Count 4.77 m/uL (4.00-5.20); White Blood Count* 10.87 K/uL (4.50-11.00)
[2024-08-28 21:24] LABS: Slide Review Reflex No
[2024-08-28 21:32] LABS: Albumin* 4.9 g/dL (3.3-5.0); Chloride* 101 mmol/L (96-114)
[2024-08-28 21:33] LABS: Sodium* 143 mmol/L (135-149)
[2024-08-28 21:35] LABS: Blood Urea Nitrogen* 13 mg/dL (5-24); Creatinine* 0.6 mg/dL (0.5-1.5); Est. Creatinine Clearance* 109.78; Estimated Glomerular Filt Rate 118 ml/min
[2024-08-28 21:36] LABS: Alanine Aminotransferase* 12 U/L (4-35); Alkaline Phosphatase* 91 U/L (40-150); Anion Gap 19 mEq/L (7-15); Aspartate Amino Transferase* 19 U/L (12-35); Bilirubin Direct* 0.3 mg/dL (0.0-0.5); Bilirubin Total* 0.4 mg/dL (0.1-1.5); Calcium* 9.9 mg/dL (8.4-10.6); Carbon Dioxide* 23 mmol/L (20-32); Glucose* 95 mg/dL (60-115); Lipase* 122 U/L (23-300)
[2024-08-28 21:39] LABS: C Reactive Protein* 1.6 mg/dL (0.5-1.0)
[2024-08-28 21:40] LABS: Potassium* 2.7 mmol/L (3.6-5.1)
[2024-08-28] MEDS: POTASSIUM CHLORIDE 10 MEQ/100 ML PIGGYBACK 100 MEQ IVPB (21:50)
[2024-08-28] MEDS: POTASSIUM BICARB 25 MEQ EFFERVESCENT TAB PO (21:51)
--- OUTSIDE RECORDS SUMMARY | 2024-08-28 21:57 | XMS_ITS | Encounter Summary ---
Author Organization [facility] Address [address] [place] [id number] Care Team Providers Care Chief Executive Or Managing Director Name Role Phone Prudence Mena P.A.-C. Primary Care Pro vider Reason for Visit * Reason Onset Date Comments Post-op Problem 08/28/2024 Encounter Details Date Type Department Care Team (Latest Contact Info) Description 08/28/2024 Clinical Communication Division of Thoracic Surgery in [place], [place] [address] [place] [phone] Patrick Mtz M.D., Ph.D. [address] [place] [phone] Post-op Problem Social History Tobacco Use Types Packs/Day Years Used Date Smoking Tobacco: Former Cigarettes 1.5 0.2 S tarted: 06/21/2024 Passive Smoke Exposure: Past Smokeless Tobacco: Never Alcohol Use Standard Drinks/Week Comments Yes 0 (1 standard drink = 0.6 oz pur e alcohol) socially [facility] Utilities Answer Date Recorded In the past 12 months has e electric, gas, oil, or water [employer] threatened to shut off services in your [...] How often do you attend episcopal or yazidism serv ices? Never 07/27/2022 Do [...] Date Recorded PHQ-2 Score 6 07/10/2024 [facility] of Occupat ional Health - Occupational Stress [...] Kate Blum R.N. - 08/28/2024 3:42 PM [facility] SUBJECTIVE CHIEF COMPLAINT / REASON FOR CALL [...] her yesterday and she recommends going into [place] ED to work things up and provide recommendations. She was agreeable to this and was appreciate of my call to confirm that was the right thing to do. Information/Education: patient/caller able to teach back The following references were used: nursing clinical judgement and provider Lola Lambert, FACING BASTER, MSN [facility] documented in this encounter Plan of Treatment Upcoming Encounters Date Type Department Care Team (Late st Contact Info) Description 08/30/2024 9:00 AM [facility] Office Visit Department of Community Internal Medicine in [place], [place] [address] [place] [phone] Prudence Mena MPAS, P.A.-C. [address] [place] [phone] documented as of this encounter Visit Diagnoses Not on filedocumented in this encounter Additional Health Concerns Assessment Noted Time PHQ-9 Depression Total Score: 22 025 7:19 PM [facility] documented as of this encounter Care Teams Chief Executive Or Managing Director Relationship Specialty Start Date End Date Prudence Mena MPAS, P.A.-C. [address] [place] [phone] PCP - General Internal Medicine 02/08/24 documented as of this encounter
--- OUTSIDE RECORDS SUMMARY | 2024-08-28 21:57 | XMS_ITS | Encounter Summary ---
Author Organization [facility] Address [address] [place] [address] Care Team Providers Care Supply Room Clerk Name Role Phone Prudence Mena P.A.-C. Primary Care Pro vider Reason for Visit * Outpatient (Routine) - Closed Specialty Diagnoses / Procedures Referred By Contac t Referred To Contact Thoracic Surgery Melinda Isaac APRN, C.N.P. [address] [place] [phone] Phone: tel: fax: [facility] Referral ID Status Reason Start Date Expiration Date Visits Re quested Visits Authorized [id number] Closed 07/19/2024 01/18/2026 1 1 Encounter Details Date Type Department Care Team (Latest Contact Info) Description 08/27/2024 11:30 AM [facility] Office Visit Division of Thoracic Surgery in [place], [place] [address] [place] [phone] Lola Lambert APRN, C.N.P., M.S.N. [address] [place] [phone] Follow Up Examination Postoperative Visit (Primary Dx); Empyema Pleural (HCC) Social History Tobacco Use Types Packs/Day Years Used Date Smoking Tobacco: Former Cigarettes 1.5 0.2 S tarted: 06/21/2024 Passive Smoke Exposure: Past Smokeless Tobacco: Never Alcohol Use Standard Drinks/Week Comments Yes 0 (1 standard drink = 0.6 oz pur e alcohol) socially [facility] Utilities Answer Date Recorded In [...] How often do you attend rastafari or mormonism serv ices? Never 07/27/2022 Do [...] Answer Date Recorded PHQ-2 Score 6 07/10/2024 [facility] - Occupational Stress Questionnaire Answer Date Recorded [...] the Pain Clinic for help with management. WORKERS documented in this encounter Plan of Treatment Upcoming Encounters Date Type Department Care Team (Late st Contact Info) Description 08/30/2024 9:00 AM [facility] Office Visit Department of Community Internal Medicine in [place], [place] [address] [place] [phone] Prudence Mena MPAS, P.A.-C. [address] [place] [phone] documented as of this encounter Visit Diagnoses Diagnosis Follow Up Examination Postoperative Visit- Primary Empyema Pleural (HCC) documented in this encounter Additional Health Concerns Assessment Noted Time PHQ-9 Depression Total Score: 22 025 7:19 PM [employer] documented as of this encounter Care Teams Supply Room Clerk Relationship Specialty Start Date End Date Prudence Mena MPAS, P.A.-C. [address] [place] [phone] PCP - General Internal Medicine 02/08/24 documented as of this encounter
--- OUTSIDE RECORDS SUMMARY | 2024-08-28 21:57 | XMS_ITS | Encounter Summary ---
Author Organization [facility] Address [address] [place] [address] Care Team Providers Care Trap Setter Name Role Phone Prudence Mena P.A.-C. Primary Care Pro vider Reason for Referral * Outpatient (Routine) - Closed Specialty Diagnoses / Procedures Referred By Contray t Referred To Contact Community Internal Medicine Prudence Mena MPAS, P.A.-C. [address] [place] [address] Phone: tel: fax: [facility] Region Referral ID Status Reason Start Date Expiration Date Visits Re quested Visits Authorized [id number] Closed 08/06/2024 02/05/2026 1 1 BREAKDOWN PROCESSOR Encounter Details Date Type Department Care Team (Late st Contact Info) Description 08/06/2024 Orders Only Department of Community Internal Medicine in [place], [place] [address] [place] [address] Prudence Mena MPAS, P.A.-C. [address] [place] [address] Social History Tobacco Use Types Packs/Day Years Used Date Smoking Tobacco: Former Cigarettes 1.5 0.2 S tarted: 06/21/2024 Passive Smoke Exposure: Past Smokeless Tobacco: Never Alcohol Use Standard Drinks/Week Comments Yes 0 (1 standard drink = 0.6 oz pur e alcohol) socially [facility] Utilities Answer Date Recorded In [...] How often do you attend buddhist or taoism serv ices? Never 07/27/2022 Do [...] [facility] - Occupational Stress Questionnaire Answer Date Recorded [...] st Contact Info) Description 08/30/2024 9:00 AM FLAT BREAKDOWN PROCESSOR Office Visit Department of Community Internal Medicine in [place], [place] 300 [facility] [place] [address] Prudence Mena MPAS, P.A.-C. 300 [facility] [place] [address] Scheduled Referrals Name Type Priority Associated Diagnoses Orde r Schedule Community Internal Medicine office visit (clinic) Outpatient Referral Routine Expected: 08/20/2024, Expires: 11/03/2025 documented as of this encounter Visit Diagnoses Not on filedocumented in this encounter Additional Health Concerns Assessment Noted Time PHQ-9 Depression Total Score: 22 025 7:19 PM FLAT BREAKDOWN PROCESSOR documented as of this encounter Care Teams Trap Setter Relationship Specialty Start Date End Date Prudence Mena MPAS, P.A.-C. 300 [facility] [address] PCP - General Internal Medicine 02/08/24 documented as of this encounter
--- OUTSIDE RECORDS SUMMARY | 2024-08-28 21:57 | XMS_ITS | Encounter Summary ---
Author Organization [facility] Address [address] [place] [address] Care Team Providers Care Optical Worker Name Role Phone Prudence Mena P.A.-C. Primary Care Pro vider Reason for Referral * Outpatient (Routine) - Closed Specialty Diagnoses / Procedures Referred By Contac t Referred To Contact Diagnoses Empyema Pleural (HCC) Procedures DX Chest AP or PA and Lateral 2 Views Melinda Isaac APRN, C.N.P. 200 [place] [address] Phone: tel: fax: [facility] Referral ID Status Reason Start Date Expiration Date Visits Re quested Visits Authorized [id number] Closed 07/19/2024 07/19/2025 1 1 GER UNIVERSAL Reason for Visit * Outpatient (Routine) - Closed Specialty Diagnoses / Procedures Referred By Contac t Referred To Contact Diagnoses Empyema Pleural (HCC) Procedures DX Chest AP or PA and Lateral 2 Views Melinda Isaac APRN, C.N.P. [address] [place] [phone] Phone: tel: fax: [facility] Referral ID Status Reason Start Date Expiration Date Visits Re quested Visits Authorized [id number] Closed 07/19/2024 07/19/2025 1 1 Encounter Details Date Type Department Care Team (Latest Contact Info) Description 08/27/2024 10:09 AM MANAGER UNIVERSAL - 08/27/2024 11:59 PM MANAGER UNIVERSAL Hospital Encounter Department of Radiology, [facility], in [place], [place] [address] [place] [phone] Melinda Isaac, FRED, C.N.P. [address] [place] [address] Empyema Pleural (HCC) Discharge Disposition: Home or Self Care Social History Tobacco Use Types Packs/Day Years Used Date Smoking Tobacco: Former Cigarettes 1.5 0.2 S tarted: 06/21/2024 Passive Smoke Exposure: Past Smokeless Tobacco: Never Alcohol Use Standard Drinks/Week Comments Yes 0 (1 standard drink = 0.6 oz pur e alcohol) socially [facility] Utilities Answer Date Recorded In the past 12 months has e [employer], gas, oil, or water [employer] threatened to shut off services in your [...] How often do you attend christianity or latter-day serv ices? Never 07/27/2022 Do [...] 07/10/2024 [facility] of Occupat ional [facility] - Occupational Stress Questionnaire Answer Date [...] Contact Info) Description 08/30/2024 9:00 AM MANAGER UNIVERSAL Office Visit Department of Community Internal Medicine in [place], [place] [address] [place] [address] Prudence Mena MPAS, P.A.-C. [address] [place] [address] documented as of this encounter Procedures Procedure Name Priority Date/Time Associated Diagnosis Comments DX CHEST AP OR PA AND LATERAL 2 VIEWS RAD - Routine (most inpatients and all outpatients) 08/27/2024 10:18 AM MANAGER UNIVERSAL Empyema Pleural (HCC) documented in this encounter Results * DX Chest AP or PA and Lateral 2 Views (08/27/2024 10:18 AM MANAGER UNIVERSAL) Anatomical Region Laterality Modality Chest, Thoracic RST LOS, Tho racic ARZ LOS, Thoracic FLA LOS N/A Digital Radiography Impressions 08/27/2024 10:25 AM MANAGER UNIVERSAL Compared to 08/05/2024, multifocal linear subsegmental atelectasis or scarring and mild septal thickening in the left hemithorax is decreased but not resolved. Trace left pleural effusion is decreased. Improved aeration of the left lung base with decrease in previous mild patchy groundglass opacities. No new consolidation. Interval removal of right PICC. Chest otherwise negative. Narrative 08/27/2024 10:25 AM MANAGER UNIVERSAL EXAM: DX CHEST AP OR PA AND [...] Total Score: 22 025 7:19 PM MANAGER UNIVERSAL documented as of this encounter Care Teams Optical Worker Relationship Specialty Start Date End Date Prudence Mena MPAS, P.A.-C. [address] [place], [place] [address]marta [place] [phone] PCP - General Internal Medicine 02/08/24 documented as of this encounter
--- OUTSIDE RECORDS SUMMARY | 2024-08-28 21:57 | XMS_ITS ---
Author Organization [facility] Address [address] [place] [address] Care Team Providers Care Rn Palliative Care Name Role Phone Prudence Mena P.A.-C. Primary Care Pro vider Adult OPAT Service Episode Status:Closed (Closed) Start date:07/18/2024 Enrollment date:07/20/2024 End date:08/06/2024 Close reason:Therapy Completed Related program episode:OPAT/COpAT Program (Closed) Continued Care and Services Coordination
--- OUTSIDE RECORDS SUMMARY | 2024-08-28 21:57 | XMS_ITS | Encounter Summary ---
Author Organization [facility] Address [address] [place] [address] Care Team Providers Care Appliance Parts Counter Clerk Name Role Phone Prudence Mena P.A.-C. Primary Care Pro vider Encounter Details Date Type Department Care Team (Latest Contact Info) Description 08/14/2024 Results Follow-Up Department of Family Medicine, [facility], in [place], [place] [address] [place] [address] Carmine Carrasco P.A.-C. [address] [place] [address] Bacterial Culture, Aerobic + Susceptibility Social History Tobacco Use Types Packs/Day Years Used Date Smoking Tobacco: Former Cigarettes 1.5 0.2 S tarted: 06/21/2024 Passive Smoke Exposure: Past Smokeless Tobacco: Never Alcohol Use Standard Drinks/Week Comments Yes 0 (1 standard drink = 0.6 oz pur e alcohol) socially [facility] Utilities Answer Date Recorded In the past 12 months has e [employer], gas, oil, or water [employer] threatened to shut off services in your [...] How often do you attend scientology or spiritism serv ices? Never 07/27/2022 Do [...] Answer Date Recorded PHQ-2 Score 6 07/10/2024 [facility] of Occupat ional Health - Occupational [...] st Contact Info) Description 08/30/2024 9:00 AM ENDOSCOPIC TECHNICIAN Office Visit Department of Community Internal Medicine in [place], [place] [address] [place] [address] Prudence Mena MPAS, P.A.-C. 300 [place] [address] documented as of this encounter Visit Diagnoses Not on filedocumented in this encounter Additional Health Concerns Assessment Noted Time PHQ-9 Depression Total Score: 22 025 7:19 PM ENDOSCOPIC TECHNICIAN documented as of this encounter Care Teams Appliance Parts Counter Clerk Relationship Specialty Start Date End Date Prudence Mena MPAS, P.A.-C. [address] [place] [address] [place] [phone] PCP - General Internal Medicine 02/08/24 documented as of this encounter
--- OUTSIDE RECORDS SUMMARY | 2024-08-28 21:57 | XMS_ITS | Encounter Summary ---
Author Organization [facility] Address [address] [place] [address] Care Team Providers Care Flatwork Catcher Name Role Phone Prudence Mena P.A.-C. Primary Care Pro vider Reason for Visit * Reason Onset Date Comments Med Refill 08/23/2024 Encounter Details Date Type Department Care Team (Late st Contact Info) Description 08/23/2024 Refill Department of Community Internal Medicine in [place], [place] [address] [place] [address] Prudence Mena MPAS, P.ADmitry-CDmitry 300 [place] [address] Med Refill Social History Tobacco Use Types Packs/Day Years Used Date Smoking Tobacco: Former Cigarettes 1.5 0.2 S tarted: 06/21/2024 Passive Smoke Exposure: Past Smokeless Tobacco: Never Alcohol Use Standard Drinks/Week Comments Yes 0 (1 standard drink = 0.6 oz pur e alcohol) socially [facility] Utilities Answer Date Recorded In the past [...] Never 07/27/2022 How often do you attend anglican or jainism serv ices? Never 07/27/2022 Do you belong to any clubs o r organizations such as anglican groups, unions, fraternal or athletic groups, or [...] Answer Date Recorded PHQ-2 Score 6 07/10/2024 [facility] of Occupat ional Health - Occupational [...] her back in clinic later this week. RMATION RESOURCES MANAGER documented in this encounter Plan of Treatment Upcoming Encounters Date Type Department Care Team (Late st Contact Info) Description 08/30/2024 9:00 AM INFORMATION RESOURCES MANAGER Office Visit Department of Community Internal Medicine in [place], [place] [address] [place] [phone] Prudence Mena MPAS, P.A.-C. [address] [place] [address] documented as of this encounter Visit Diagnoses Not on filedocumented in this encounter Additional Health Concerns Assessment Noted Time PHQ-9 Depression Total Score: 22 025 7:19 PM INFORMATION RESOURCES MANAGER documented as of this encounter Care Teams Flatwork Catcher Relationship Specialty Start Date End Date Prudence Mena MPAS, P.A.-C. [address] [place] [phone] PCP - General Internal Medicine 02/08/24 documented as of this encounter
--- OUTSIDE RECORDS SUMMARY | 2024-08-28 21:57 | XMS_ITS ---
Author Organization [facility] Address [address] [place] [address] Care Team Providers Care Flux Mixer Name Role Phone Prudence Mena P.A.-C. Primary Care Pro vider OPAT/COpAT Program Status:Closed (Closed) Start date:07/18/2024 Enrollment date:07/20/2024 End date:08/06/2024 Close reason:Therapy Completed Related service episodes:Adult OPAT Service Episode (Closed) Continued Care and Services Coordination
--- OUTSIDE RECORDS SUMMARY | 2024-08-28 21:57 | XMS_ITS | CCD ---
Author Name Interface, [id number] Address [address] [place], [place] [address] [place] [address] [facility] Address [address] [facility] [address] [place] [address] Care Team Providers Care Automotive Glass Specialist Name Role Phone Karen Daley Unavailable Allergies and Adverse Reactions Reason for Visit Medications Problems Social History
--- OUTSIDE RECORDS SUMMARY | 2024-08-28 21:57 | XMS_ITS | Encounter Summary ---
Author Organization [facility] Address [address] [place] [address] Care Team Providers Care Professor Of Religion Name Role Phone Prudence Mena P.A.-C. Primary Care Pro vider Encounter Details Date Type Department Care Team (Late st Contact Info) Description 08/21/2024 Results Follow-Up Department of Community Internal Medicine in [place], [place] 300 [place] [address] Prudence Mena MPAS P.A.-C. 300 [place] [address] CBC with Differential, Blood Social History Tobacco Use Types Packs/Day Years Used Date Smoking Tobacco: Former Cigarettes 1.5 0.2 S tarted: 06/21/2024 Passive Smoke Exposure: Past Smokeless Tobacco: Never Alcohol Use Standard Drinks/Week Comments Yes 0 (1 standard drink = 0.6 oz pur e alcohol) socially [facility] Utilities Answer Date Recorded In the past 12 months has [employer], gas, oil, or water [employer] threatened to shut off services in your [...] How often do you attend muslim or pentecostalism serv ices? Never 07/27/2022 Do [...] 07/10/2024 [facility] of Occupat ional Health - Occupational [...] st Contact Info) Description 08/30/2024 9:00 AM DOWEL INSPECTOR Office Visit Department of Community Internal Medicine in [place], [place] [address] [facility] [place] [address] Prudence Mena MPAS, P.A.-C. [address] [place] [address] documented as of this encounter Visit Diagnoses Not on filedocumented in this encounter Additional Health Concerns Assessment Noted Time PHQ-9 Depression Total Score: 22 025 7:19 PM DOWEL INSPECTOR documented as of this encounter Care Teams Professor Of Religion Relationship Specialty Start Date End Date Prudence Mena MPAS, P.A.-C. [address] [place] [address] DESHAUN Orta [phone] PCP - General Internal Medicine 02/08/24 documented as of this encounter
--- OUTSIDE RECORDS SUMMARY | 2024-08-28 21:57 | XMS_ITS | Encounter Summary ---
Author Organization [facility] Address [address] [place] [address] Care Team Providers Care Solar Energy Specialist Name Role Phone Prudence Mena P.A.-CDmitry Primary Care Pro vider Encounter Details Date Type Department Care Team (Latest Contact Info) Description 08/21/2024 8:34 AM DIP TANKER - 08/21/2024 11:59 PM [facility] Encounter Department of Laboratory Medicine in [place], [place] [address] [place] [address] Prudence Mena MPAS, P.A.-CDmitry [address] [place] [address] Anemia Discharge Disposition: Home or Self Care Social History Tobacco Use Types Packs/Day Years Used Date Smoking Tobacco: Former Cigarettes 1.5 0.2 S tarted: 06/21/2024 Passive Smoke Exposure: Past Smokeless Tobacco: Never Alcohol Use Standard Drinks/Week Comments Yes 0 (1 standard drink = 0.6 oz pur e alcohol) socially [facility] Utilities Answer Date Recorded In the past 12 months has e electric, gas, oil, or water [employer] threatened to shut off services in your [...] Never 07/27/2022 How often do you attend presybeterian or latter day serv ices? Never 07/27/2022 Do you belong to any clubs o r organizations such as presybeterian groups, unions, fraternal or athletic groups, or [...] Recorded PHQ-2 Score 6 07/10/2024 [facility] of Occupat ional Health - Occupational Stress [...] st Contact Info) Description 08/30/2024 9:00 AM DIP TANKER Office Visit Department of Community Internal Medicine in [place], [place] 300 [facility] [place] [phone] Prudence Mena MPAS, P.A.-C. 300 [place] [phone] documented as of this encounter Procedures Procedure Name Priority Date/Time Associated Diagnosis Comments CBC WITH DIFFERENTIAL, B Routine 08/21/2024 8:46 AM DIP TANKER Anemia documented in this encounter Results * (ABNORMAL) CBC with Differential, Blood (08/21/2024 8:46 AM DIP TANKER) Hemoglobin 10.9(L) 11.6 - 15.0 g/dL 08/21/2024 8:55 AM DIP TANKER FB60 Hematocrit 35.4(L) 35.5 - 44.9 % 08/21/2024 8:55 AM DIP TANKER FB60 Erythrocytes 4.28 3.92 - 5.13 x10(12)/L 08/21/2024 8:55 AM DIP TANKER FB60 MCV 82.7 78.2 - 97.9 fL 08/21/2024 8:55 AM DIP TANKER FB60 RBC Distrib Width 16.6(H) 12.2 - 16.1 % 08/21/2024 8:55 AM DIP TANKER FB60 Platelet Count 634(H) 157 - 371 x10(9)/L 08/21/2024 8:55 AM DIP TANKER FB60 Leukocytes 10.5(H) 3.4 - 9.6 x10(9)/L 08/21/2024 8:55 AM DIP TANKER FB60 Neutrophils 8.01(H) 1.56 - 6.45 x10(9)/L 08/21/2024 8:55 AM DIP TANKER FB60 Lymphocytes 1.40 0.95 - 3.07 x10(9)/L 08/21/2024 8:55 AM DIP TANKER FB60 Monocytes 0.58 0.26 - 0.81 x10(9)/L 08/21/2024 8:55 AM DIP TANKER FB60 Eosinophils 0.47 0.03 - 0.48 x10(9)/L 08/21/2024 8:55 AM DIP TANKER FB60 Basophils <0.04 0.01 - 0.08 x10(9)/L 08/21/2024 8:55 AM DIP TANKER FB60 Blood (Blood, Venous) 08/21/2024 8:46 AM DIP TANKER 08/21/2024 8:47 AM DIP TANKER us Prudence TO, P.A.-C. LAB BLOOD ADD-ON Final Result [facility] [address] [place] [address], [facility] FB60 [facility] in [place] [address] [place] [address] documented in this encounter Visit Diagnoses Diagnosis Anemia documented in this encounter Additional Health Concerns Assessment Noted Time PHQ-9 Depression Total Score: 22 025 7:19 PM DIP TANKER documented as of this encounter Care Teams Solar Energy Specialist Relationship Specialty Start Date End Date Prudence Mena MPAS, P.A.-C. [address] [place] [address] PCP - General Internal Medicine 02/08/24 documented as of this encounter
--- OUTSIDE RECORDS SUMMARY | 2024-08-28 21:57 | XMS_ITS | Encounter Summary ---
Author Organization [facility] Address [address] [place] [address] Care Team Providers Care Hematology Nurse Name Role Phone Prudence Mena P.A.-C. Primary Care Pro vider Encounter Details Date Type Department Care Team (Late st Contact Info) Description 08/12/2024 8:20 AM ETL INFORMATICA ARCHITECT Ancillary Procedure Department of Family Medicine Social History Tobacco Use Types Packs/Day Years Used Date Smoking Tobacco: Former Cigarettes 1.5 0.2 S tarted: 06/21/2024 Passive Smoke Exposure: Past Smokeless Tobacco: Never Alcohol Use Standard Drinks/Week Comments Yes 0 (1 standard drink = 0.6 oz pur e alcohol) socially [facility] Utilities Answer Date Recorded In the past 12 months has e electric, gas, oil, or water [email or web address] threatened to shut off services in your [...] How often do you attend uatsdin or christian serv ices? Never 07/27/2022 Do you belong [...] st Contact Info) Description 08/30/2024 9:00 AM ETL INFORMATICA ARCHITECT Office Visit Department of Community Internal Medicine in [place], [place] [address] [place] [phone] Prudence Mena MPAS, P.A.-C. [address] [place] [phone] documented as of this encounter Procedures Procedure Name Priority Date/Time Associated Diagnosis Comments FAMILY MEDICINE IMAGE EXAM Routine 08/12/2024 8:19 AM ETL INFORMATICA ARCHITECT documented in this encounter Results * Chest-Family Medicine Image Exam (08/12/2024 8:19 AM ETL INFORMATICA ARCHITECT) 08/12/2024 8:17 AM ETL INFORMATICA ARCHITECT Narrative IIMS - 08/12/2024 8:19 AM ETL INFORMATICA ARCHITECT This order has been created and auto-finalized [...] Depression Total Score: 22 025 7:19 PM ETL INFORMATICA ARCHITECT documented as of this encounter Care Teams Hematology Nurse Relationship Specialty Start Date End Date Prudence Mena MPAS, P.A.-C. [address] [place] [phone] PCP - General Internal Medicine 02/08/24 documented as of this encounter
--- OUTSIDE RECORDS SUMMARY | 2024-08-28 21:57 | XMS_ITS | Encounter Summary ---
Author Organization [facility] Address [address] [place] [address] Care Team Providers Care Electricians Top Helper Name Role Phone Prudence Mena P.A.-C. Primary Care Pro vider Reason for Referral * Outpatient (Routine) - Authorized Specialty Diagnoses / Procedures Referred By Talia galeas Referred To Contact Community Internal Medicine Prudence Mena MPAS, P.A.-C. [address] [place] [address] Phone: tel: fax: [facility] Region Referral ID Status Reason Start Date Expiration Date V isits Requested Visits Authorized [id number] Authorized 08/21/2024 02/20/2026 1 1 NOLOGIES DIVISION CHAIR Reason for Visit * Reason Comments Follow-up 2 week from surgery * Outpatient (Routine) - Closed Specialty Diagnoses / Procedures Referred By Contac t Referred To Contact [facility] Internal Medicine Prudence Mena MPAS, P.AMieshaCDmitry [address] [place] [address] Phone: tel: fax: [facility] Region Referral ID Status Reason Start Date Expiration Date Visits Re quested Visits Authorized [id number] Closed 08/12/2024 02/11/2026 1 1 Encounter Details Date Type Department Care Team (Late st Contact Info) Description 08/21/2024 8:00 AM TECHNOLOGIES DIVISION CHAIR Office Visit Department of Community Internal Medicine in [place], [place] 300 [facility] [address] Prudence Mena MPAS, P.A.-C. 300 [facility] [place] [address] Empyema Pleural (HCC) (Primary Dx); Candidiasis Intertrigo; Anemia; Stool Positive Occult Blood Social History Tobacco Use Types Packs/Day Years Used Date Smoking Tobacco: Former Cigarettes 1.5 0.2 S tarted: 06/21/2024 Passive Smoke Exposure: Past Smokeless Tobacco: Never Tobacco Cessation:Counseling Given: Not Answered Alcohol Use Standard Drinks/Week Comments Yes 0 (1 standard drink = 0.6 oz pur e alcohol) socially [facility] [employer] Answer Date Recorded In the past 12 months has e [employer], gas, oil, or water [employer] threatened to shut off services in your [...] How often do you attend pentecostal or mandaeism serv ices? Never 07/27/2022 Do you belong [...] Answer Date Recorded PHQ-2 Score 6 07/10/2024 [facility]at ional [facility] - Occupational Stress Questionnaire Answer [...] Comments Blood Pressure 105/74 08/21/2024 8:02 AM TECHNOLOGIES DIVISION CHAIR Pulse 108 08/21/2024 8:02 AM TECHNOLOGIES DIVISION CHAIR Temperature 36.1 C (97 F) 08/21/2024 8:02 AM TECHNOLOGIES DIVISION CHAIR Respiratory Rate - - Oxygen Saturation 98% 08/21/2024 8:02 AM TECHNOLOGIES DIVISION CHAIR Inhaled Oxygen Concentration - - Weight 88 kg (194 lb 0.1 oz) 08/21/2024 8:02 AM TECHNOLOGIES DIVISION CHAIR Height 165 cm (5' 4.96) 08/21/2024 8:02 AM TECHNOLOGIES DIVISION CHAIR Body Mass Index 32.32 08/21/2024 8:02 AM TECHNOLOGIES DIVISION CHAIR documented in this encounter Progress Notes * [...] and uploaded to chart via [facility] photo exam lacey. ASSESSMENT / PLAN IMPRESSION/REPORT/PLAN: [...] fecal occult blood test Jun 2024 at [facility]. Hemoglobin level checked today shows mild improvement [...] affected area., Disp: 30 g, Rfl: 1 NOLOGIES DIVISION CHAIR documented in this encounter Plan of Treatment Upcoming Encounters Date Type Department Care Team (Late st Contact Info) Description 08/30/2024 9:00 AM TECHNOLOGIES DIVISION CHAIR Office Visit Department of Community Internal Medicine in [address] [phone] Prudence Mena MPAS, P.A.-C. [address] [place] [phone] Scheduled Orders Name Type Priority Associated Diagnoses Orde r Schedule CBC with Differential, Blood Lab Routine Anemia Stool Positive Occult Blood Expected: 09/18/2024, Expires: 11/18/2025 Scheduled Referrals Name Type Priority Associated Diagnoses Orde r Schedule Community Internal Medicine office visit (clinic) Outpatient Referral Routine Expected: 08/29/2024, Expires: 11/18/2025 documented as of this encounter Results * (ABNORMAL) CBC with Differential, Blood (08/21/2024 8:46 AM TECHNOLOGIES DIVISION CHAIR) Hemoglobin 10.9(L) 11.6 - 15.0 g/dL 08/21/2024 8:55 AM TECHNOLOGIES DIVISION CHAIR FB60 Hematocrit 35.4(L) 35.5 - 44.9 % 08/21/2024 8:55 AM TECHNOLOGIES DIVISION CHAIR FB60 Erythrocytes 4.28 3.92 - 5.13 x10(12)/L 08/21/2024 8:55 AM TECHNOLOGIES DIVISION CHAIR FB60 MCV 82.7 78.2 - 97.9 fL 08/21/2024 8:55 AM TECHNOLOGIES DIVISION CHAIR FB60 RBC Distrib Width 16.6(H) 12.2 - 16.1 % 08/21/2024 8:55 AM TECHNOLOGIES DIVISION CHAIR FB60 Platelet Count 634(H) 157 - 371 x10(9)/L 08/21/2024 8:55 AM TECHNOLOGIES DIVISION CHAIR FB60 Leukocytes 10.5(H) 3.4 - 9.6 x10(9)/L 08/21/2024 8:55 AM TECHNOLOGIES DIVISION CHAIR FB60 Neutrophils 8.01(H) 1.56 - 6.45 x10(9)/L 08/21/2024 8:55 AM TECHNOLOGIES DIVISION CHAIR FB60 Lymphocytes 1.40 0.95 - 3.07 x10(9)/L 08/21/2024 8:55 AM TECHNOLOGIES DIVISION CHAIR FB60 Monocytes 0.58 0.26 - 0.81 x10(9)/L 08/21/2024 8:55 AM TECHNOLOGIES DIVISION CHAIR FB60 Eosinophils 0.47 0.03 - 0.48 x10(9)/L 08/21/2024 8:55 AM TECHNOLOGIES DIVISION CHAIR FB60 Basophils <0.04 0.01 - 0.08 x10(9)/L 08/21/2024 8:55 AM TECHNOLOGIES DIVISION CHAIR FB60 Blood (Blood, Venous) 08/21/2024 8:46 AM TECHNOLOGIES DIVISION CHAIR 08/21/2024 8:47 AM TECHNOLOGIES DIVISION CHAIR us Prudence TO, P.A.-C. LAB BLOOD ADD-ON Final Result [facility] [address] [place] [address], [facility] FB60 [facility] [place] [address] [place] [address] documented in this encounter Visit Diagnoses Diagnosis Empyema Pleural (HCC)- Primary Candidiasis Intertrigo Anemia Stool Positive Occult Blood documented in this encounter Additional Health Concerns Assessment Noted Time PHQ-9 Depression Total Score: 22 07/10/ 025 7:19 PM TECHNOLOGIES DIVISION CHAIR documented as of this encounter Care Teams Electricians Top Helper Relationship Specialty Start Date End Date Prudence Mena MPAS, P.A.-C. [address] [place] [address] [place], [place] [phone] PCP - General Internal Medicine 02/08/24 documented as of this encounter
--- OUTSIDE RECORDS SUMMARY | 2024-08-28 21:57 | XMS_ITS | Clinical Summary ---
Author Organization [employer] [facility] Address [facility] [place] [address] Care Team Providers Care Verification Lead Name Role Phone Kevin Berrios MD Unavailable [phone] Claudia Morillo MD Primary Care Provider Allergies [...] Overview (07/04/2017): 06/13/17 Signed .Kristen Landeros DNP, RAIL GRINDER, DIRECTOR OF CLINICAL APPLICATIONS/psyciatry/hc Acute postoperative pain Acute postoperative abdominal pain [...] Non-Reacti ve 11/11/2020 8:33 PM CDT [facility] Comment:HIV-1 p24 and HIV-1/ HIV-2 Ab not detected. Blood BLOOD SPECIMEN / Unknown Butterfly / Unknown 11/11/2020 1:29 PM CDT 11/11/2020 1:29 PM CDT us Claudia Morillo MD SEND OUTS Final Resul t [facility] [address] [place] [address], * ANTI HCV (03/20/2019 2:40 PM CDT) HEPATITIS C ANTIBODY Non-React salomón Non-React salomón 03/21/2019 11:42 PM CDT [facility] Comment:Antibodies to HCV no t detected; does not exclude the possibility of exposure to HCV. Blood BLOOD SPECIMEN / Unknown Venipuncture / Unknown 03/20/2019 2:40 PM CDT 03/20/2019 2:40 PM CDT us Claudia Morillo MD SEND OUTS Final Resul t Performing Organization Address City/[facility]/ZIP Co de Phone Number [facility] [address] [place] [address], from Last 3 Months or Most Recently Relevant to Health Maintenance Insurance [facility] Advance Directives * Full Code (Latest Code [...] 3:10 PM 04/16/2019 8:58 PM Care Teams Verification Lead Relationship Specialty Start Date End Date Claudia Morillo MD [address] [place] [address] PCP - General Family Practice 03/04/22 Kevin Berrios MD Surgery - Urology 02/27/20
--- OUTSIDE RECORDS SUMMARY | 2024-08-28 21:57 | XMS_ITS | Encounter Summary ---
Author Organization [facility] Address [address] [place] [address] Care Team Providers Care Bicycle Inspector Name Role Phone Prudence Mena P.A.-C. Primary Care Pro vider Reason for Visit * Reason Onset Date Comments Med Refill 08/16/2024 Encounter Details Date Type Department Care Team (Late st Contact Info) Description 08/16/2024 Refill Department of Community Internal Medicine in [place], [place] 300 [place] [address] Prudence Mena MPAS, P.ADmitry-CDmitry 300 [place] [address] Med Refill Social History Tobacco [...] Never 07/27/2022 How often do you attend pentecostalism or episcopalian serv ices? Never 07/27/2022 Do you belong to any clubs o r organizations such as pentecostalism groups, unions, fraternal or athletic groups, or [...] 07/10/2024 [facility] Occupat ional Health - Occupational Stress [...] st Contact Info) Description 08/30/2024 9:00 AM HEALTHCARE ANALYST Office Visit Department of Community Internal Medicine in [place], [place] 300 [place] [address] Prudence Mena MPAS, P.A.-C. [address] [facility] [place] [address] documented as of this encounter Visit Diagnoses Not on filedocumented in this encounter Additional Health Concerns Assessment Noted Time PHQ-9 Depression Total Score: 22 025 7:19 PM HEALTHCARE ANALYST documented as of this encounter Care Teams Bicycle Inspector Relationship Specialty Start Date End Date Prudence Mena MPAS, P.A.-C. 300 [facility] [place] [address] PCP - General Internal Medicine 02/08/24 documented as of this encounter
--- OUTSIDE RECORDS SUMMARY | 2024-08-28 21:58 | XMS_ITS | Encounter Summary ---
Author Organization [facility] Address [address] [place] [address] Care Team Providers Care Insole Bottom Filler Name Role Phone Prudence Mena P.A.-C. Primary Care Pro vider Reason for Visit * Reason Onset Date Comments Results 07/29/2024 Encounter Details Date Type Department Care Team (Late st Contact Info) Description 07/29/2024 Clinical Communication Department of Oncology in [place], [place] [address] [place] [phone] Denae Headley R.N. [address] [place] [phone] Results Social History Tobacco Use Types Packs/Day Years Used Date Smoking Tobacco: Former Cigarettes 1.5 0.2 S tarted: 06/21/2024 Passive Smoke Exposure: Past Smokeless Tobacco: Never Alcohol Use Standard Drinks/Week Comments Yes 0 (1 standard drink = 0.6 oz pur e alcohol) socially [facility] Utilities Answer Date Recorded In the past 12 months has [employer], gas, oil, or water [employer] threatened to shut off services in your [...] Never 07/27/2022 How often do you attend mandaen or gnosticism serv ices? Never 07/27/2022 Do you belong to any clubs o r organizations such as mandaen groups, unions, fraternal or athletic groups, or [...] st Contact Info) Description 08/30/2024 9:00 AM ORTHOPEDIC CODER Office Visit Department of Community Internal Medicine in [place], [place] 300 [facility] [place] [phone] Prudence Mena MPAS, P.A.-C. 300 [facility] [place] [address] documented as of this encounter Visit Diagnoses Not on filedocumented in this encounter Additional Health Concerns Assessment Noted Time PHQ-9 Depression Total Score: 22 025 7:19 PM ORTHOPEDIC CODER documented as of this encounter Care Teams Insole Bottom Filler Relationship Specialty Start Date End Date Prudence Mena MPAS, P.A.-C. 300 [place] [address] PCP - General Internal Medicine 02/08/24 documented as of this encounter
--- OUTSIDE RECORDS SUMMARY | 2024-08-28 21:58 | XMS_ITS | Encounter Summary ---
Author Organization [facility] Address [address] [place] [address] Care Team Providers Care Engineering Librarian Name Role Phone Prudence Mena P.A.-C. Primary Care Pro vider Reason for Visit * Reason Onset Date Comments Med Refill 08/09/2024 Encounter Details Date Type Department Care Team (Late st Contact Info) Description 08/09/2024 Refill Department of Community Internal Medicine in [place], [place] 300 [place] [address] Prudence Mena MPAS, P.ADmitry-CDmitry 300 [place] [address] Med Refill Social History Tobacco [...] How often do you attend anglican or confucianist serv ices? Never 07/27/2022 Do [...] [facility] of Occupat ional Health - [...] st Contact Info) Description 08/30/2024 9:00 AM CERAMIC SAW TENDER Office Visit Department of Community Internal Medicine in [place], [place] 300 [place] [address] Prudence Mena MPAS, P.A.-C. 300 [facility] [place] [address] documented as of this encounter Visit Diagnoses Not on filedocumented in this encounter Additional Health Concerns Assessment Noted Time PHQ-9 Depression Total Score: 22 025 7:19 PM CERAMIC SAW TENDER documented as of this encounter Care Teams Engineering Librarian Relationship Specialty Start Date End Date Prudence Mena MPAS, P.A.-C. 300 [facility] [place] [address] PCP - General Internal Medicine 02/08/24 documented as of this encounter
--- OUTSIDE RECORDS SUMMARY | 2024-08-28 21:58 | XMS_ITS | Encounter Summary ---
Author Organization [facility] Address [address] [place] [address] Care Team Providers Care Manufacturing Technician Name Role Phone Prudence Mena P.A.-C. Primary Care Pro vider Reason for Visit * Reason Comments Procedure PICC removal * Outpatient (Routine) - Closed Specialty Diagnoses / Procedures Referred By Contac t Referred To Contact Diagnoses Audio Production Instructor Antibiotic Treatment Procedures Remove PICC (non-tunneled) or Midline Catheter Shanel Starr, P.A.-C. [address] [place] [phone] Phone: tel: fax: [facility] Referral ID Status Reason Start Date Expiration Date Visits Re quested Visits Authorized [id number] Closed 07/30/2024 10/30/2025 1 1 Encounter Details Date Type Department Care Team (Late st Contact Info) Description 08/05/2024 12:30 PM RETORT COOLER Infusion Department of Infusion Therapy in [place], [place] [address] [place] [phone] Shanel Starr, P.A.-C. [address] [place] [phone] Jail Antibiotic Treatment Social History Tobacco Use Types [...] How often do you attend episcopalian or christianity serv ices? Never 07/27/2022 Do [...] Answer Date Recorded PHQ-2 Score 6 07/10/2024 [facility] - Occupational Stress Questionnaire Answer [...] Comments Blood Pressure 120/74 08/05/2024 12:27 PM RETORT COOLER Pulse 115 08/05/2024 12:53 PM RETORT COOLER Temperature 36.3 C (97.3 F) 08/05/2024 11:57 AM RETORT COOLER Respiratory Rate 18 08/05/2024 12:27 PM RETORT COOLER Oxygen Saturation 95% 08/05/2024 12:53 PM RETORT COOLER Inhaled Oxygen Concentration - - Weight - - Height - - Body Mass Index - - documented in this encounter Plan of Treatment Upcoming Encounters Date Type Department Care Team (Late st Contact Info) Description 08/30/2024 9:00 AM RETORT COOLER Office Visit Department of Community Internal Medicine in [place], [place] 300 [place] [address] Prudenec Mena MPAS, P.A.-C. 300 [place] [address] documented as of this encounter Visit Diagnoses Diagnosis Audio Production Instructor Antibiotic Treatment documented in this encounter Additional Health Concerns Assessment Noted Time PHQ-9 Depression Total Score: 22 025 7:19 PM RETORT COOLER documented as of this encounter Care Teams Manufacturing Technician Relationship Specialty Start Date End Date Prudence Mena MPAS, P.A.-C. 300 [place] [address] PCP - General Internal Medicine 02/08/24 documented as of this encounter
--- OUTSIDE RECORDS SUMMARY | 2024-08-28 21:58 | XMS_ITS | Encounter Summary ---
Author Organization [facility] Address [address] [place] [address] Care Team Providers Care Lollypop Machine Operator Name Role Phone Prudence Mena P.A.-C. Primary Care Pro vider Reason for Visit * Reason Onset Date Comments Med Refill 08/05/2024 Encounter Details Date Type Department Care Team (Late st Contact Info) Description 08/05/2024 Refill Department of Community Internal Medicine in [place], [place] 300 [place] [address] Prudence Mena MPAS, P.A.-CDmitry 300 [place] [address] Med Refill Social History Tobacco [...] How often do you attend amish or sikh serv ices? Never 07/27/2022 Do [...] st Contact Info) Description 08/30/2024 9:00 AM CIRCLE SHEAR OPERATOR Office Visit Department of Community Internal Medicine in [place], [place] 300 [place] [address] Prudence Mena MPAS, P.A.-C. 300 [facility] [place] [address] documented as of this encounter Visit Diagnoses Not on filedocumented in this encounter Additional Health Concerns Assessment Noted Time PHQ-9 Depression Total Score: 22 025 7:19 PM CIRCLE SHEAR OPERATOR documented as of this encounter Care Teams Lollypop Machine Operator Relationship Specialty Start Date End Date Prudence Mena MPAS, P.A.-C. 300 [facility] [place] [address] PCP - General Internal Medicine 02/08/24 documented as of this encounter
--- OUTSIDE RECORDS SUMMARY | 2024-08-28 21:58 | XMS_ITS | Encounter Summary ---
Author Organization [facility] Address [address] [place] [address] Care Team Providers Care Senior Environmental Technician Name Role Phone Prudence Mena P.A.-C. Primary Care Pro vider Reason for Visit * Reason Comments OPAT Monitoring Complete Encounter Details Date Type Department Care Team ([facility] st Contact Info) Description 08/06/2024 Patient Outreach Section of Infectious Diseases in [place], [place] [address] [place] [phone] Karla Stein R.N. OPAT (Monitoring Complete) Social History Tobacco Use Types Packs/Day Years Used Date Smoking Tobacco: Former Cigarettes 1.5 0.2 S tarted: 06/21/2024 Passive Smoke Exposure: Past Smokeless Tobacco: Never Alcohol Use Standard Drinks/Week Comments Yes 0 (1 standard drink = 0.6 oz pur e alcohol) socially [facility] Utilities Answer Date Recorded In the past 12 months has [facility] [employer], gas, oil, or water [employer] threatened to shut off services in [...] Never 07/27/2022 How often do you attend latter day or sabianist serv ices? Never 07/27/2022 Do you belong to any clubs o r organizations such as latter day groups, unions, fraternal or athletic groups, or [...] they will be removed from OPAT monitoring. O TELEVISION TECHNICAL DIRECTOR documented in this encounter Plan of Treatment Upcoming Encounters Date Type Department Care Team (Late st Contact Info) Description 08/30/2024 9:00 AM RADIO TELEVISION TECHNICAL DIRECTOR Office Visit Department of Community Internal Medicine in [place], [place] 300 [place] [address] Prudence Mena MPAS, P.A.-C. 300 [facility] [place] [address] documented as of this encounter Visit Diagnoses Not on filedocumented in this encounter Additional Health Concerns Assessment Noted Time PHQ-9 Depression Total Score: 22 025 7:19 PM RADIO TELEVISION TECHNICAL DIRECTOR documented as of this encounter Care Teams Senior Environmental Technician Relationship Specialty Start Date End Date Prudence Mena MPAS, P.A.-C. 300 [facility] [place] [address] PCP - General Internal Medicine 02/08/24 documented as of this encounter
--- OUTSIDE RECORDS SUMMARY | 2024-08-28 21:58 | XMS_ITS | Encounter Summary ---
Author Organization [facility] Address [address] [place] [address] Care Team Providers Care Substation Operator Helper Generation Name Role Phone Prudence Mena P.A.-C. Primary Care Pro vider Reason for Visit * Outpatient (Routine) - Closed Specialty Diagnoses / Procedures Referred By Contac t Referred To Contact Infectious Diseases Diagnoses Empyema Pleural (HCC) Kayleigh Small M.D. [address] [place] [phone] Phone: tel: fax: [facility] Referral ID Status Reason Start Date Expiration Date Visits Re quested Visits Authorized [id number] Closed 07/18/2024 01/17/2026 1 1 Encounter Details Date Type Department Care Team (Late st Contact Info) Description 08/05/2024 11:00 AM SUPPLY CHAIN TECHNICIAN Office Visit Section of Infectious Diseases in [place], [place] [address] [place] [address] [phone] Kayleigh Small M.D. [address] [place] [address] [phone] Nimco Yee M.D. [address] [place] [address] [phone] Empyema Pleural (HCC) Social History Tobacco Use Types Packs/Day Years Used Date Smoking Tobacco: Former Cigarettes 1.5 0.2 S tarted: 06/21/2024 Passive Smoke Exposure: Past Smokeless Tobacco: Never Alcohol Use Standard Drinks/Week Comments Yes 0 (1 standard drink = 0.6 oz pur e alcohol) socially [facility] Utilities Answer Date Recorded In the past 12 months has e electric, gas, oil, or water [employer] threatened to shut off services in your [...] Never 07/27/2022 How often do you attend lutheran or sikhism serv ices? Never 07/27/2022 Do you belong to any clubs o r organizations such as lutheran groups, unions, fraternal or athletic groups, or [...] Answer Date Recorded PHQ-2 Score 6 07/10/2024 [facility] of Occupat ional Health - [...] 35.5 C (95.9 F) 08/05/2024 10:20 AM SUPPLY CHAIN TECHNICIAN Respiratory Rate - - Oxygen Saturation - - Inhaled Oxygen Concentration - - Weight 91.5 kg (201 lb 11.5 oz) 025 10:20 AM SUPPLY CHAIN TECHNICIAN Height - - Body Mass Index 34.44 07/29/2024 2:12 PM SUPPLY CHAIN TECHNICIAN documented in this encounter Consult Notes * Nimco Yee M.D. - 08/05/2024 11:00 AM CST SUBJECTIVE Referring Provider: Kayleigh Small M.D. REASON FOR CONSULT Patient is a 39 y.o. female being seen by Infectious Diseases for left pleural empyema status post decortication. HISTORY OF PRESENT ILLNESS Ms. Kumar is a 39-year-old woman from [place], [place] with history of asthma, hypertension, obesity [...] pleural effusion and empyema. Was transferred to [place]. Underwent left robotic VATS decortication on 07/15/2024. [...] AGENT; Surgeon: Yobany Soares M.D., Ph.D.; Location: [facility] OR DECORTICATION - THORACOSCOPY (VATS) Left 07/15/2024 Procedure: ROBOTIC THORACOSCOPY, DECORTICATION, PLEURODESIS, PROCEED INDICATED.; Surgeon: Patrick Mtz M.D., Ph.D.; Location: [facility] OR HYDRODISTENSION BLADDER WITH CYSTOSCOPY N/A 06/30/2023 Procedure: HYDRODISTENSION BLADDER WITH CYSTOSCOPY; Surgeon: Yobany Soares M.D., Ph.D.; Location: [facility] OR INJECTION BOTOX Bilateral 06/30/2023 Procedure: INJECTION BOTOX PELVIC FLOOR; Surgeon: Yobany Soares M.D., Ph.D.; Location: [facility] OR OTHER SURGICAL HISTORY 10/2017 Hysterectomy that [...] encounter medications on file as of 08/05/2024. LY CHAIN TECHNICIAN documented in this encounter Plan of Treatment Upcoming Encounters Date Type Department Care Team (Late st Contact Info) Description 08/30/2024 9:00 AM SUPPLY CHAIN TECHNICIAN Office Visit Department of Community Internal Medicine in [place], [place] 300 [facility] [phone] Prudence Mena MPAS, P.A.-C. [address] [facility] [place] [phone] Scheduled Orders Name Type Priority Associated Diagnoses Orde r Schedule CRP (C-Reactive Protein) Lab Add-On Empyema Pleural (HCC) Expected: 08/05/2024, Expires: 11/02/2025 documented as of this encounter Visit Diagnoses Diagnosis Empyema Pleural (HCC) documented in this encounter Additional Health Concerns Assessment Noted Time PHQ-9 Depression Total Score: 22 025 7:19 PM SUPPLY CHAIN TECHNICIAN documented as of this encounter Care Teams Substation Operator Helper Generation Relationship Specialty Start Date End Date Prudence Mena MPAS, P.A.-C. [address] [facility] [place] [phone] PCP - General Internal Medicine 02/08/24 documented as of this encounter
--- OUTSIDE RECORDS SUMMARY | 2024-08-28 21:58 | XMS_ITS | Encounter Summary ---
Author Organization [facility] Address [address] [place] [address] Care Team Providers Care Systems Software Developer Name Role Phone Prudence Mena P.A.-C. Primary Care Pro vider Reason for Visit * Reason Onset Date Comments Med Refill 08/01/2024 Encounter Details Date Type Department Care Team (Late st Contact Info) Description 08/01/2024 Refill Department of Community Internal Medicine in [place], [place] 300 [place] [phone] Prudence Mena MPAS, P.A.-CDmitry 300 [place] [phone] Med Refill Social History Tobacco Use Types Packs/Day Years Used Date Smoking Tobacco: Former Cigarettes 1.5 0.2 S tarted: 06/21/2024 Passive Smoke Exposure: Past Smokeless Tobacco: Never Alcohol Use Standard Drinks/Week Comments Yes 0 (1 standard drink = 0.6 oz pur e alcohol) socially [facility] Utilities Answer Date Recorded In the [...] How often do you attend episcopalian or adventist serv ices? Never 07/27/2022 Do you belong [...] 07/10/2024 [facility] of Occupat ional Health - [...] st Contact Info) Description 08/30/2024 9:00 AM ENGINEERING AND OPERATIONS DIRECTOR Office Visit Department of Community Internal Medicine in [place], [place] 300 [place] [phone] Prudence Mena MPAS, P.A.-C. [address] [facility] [place] [phone] documented as of this encounter Visit Diagnoses Not on filedocumented in this encounter Additional Health Concerns Assessment Noted Time PHQ-9 Depression Total Score: 22 025 7:19 PM ENGINEERING AND OPERATIONS DIRECTOR documented as of this encounter Care Teams Systems Software Developer Relationship Specialty Start Date End Date Prudence Mena MPAS, P.A.-C. 300 [facility] [place] [address] PCP - General Internal Medicine 02/08/24 documented as of this encounter
--- OUTSIDE RECORDS SUMMARY | 2024-08-28 21:58 | XMS_ITS | Encounter Summary ---
Author Organization [facility] Address [address] [place] [address] Care Team Providers Care Sales Center Associate Name Role Phone Prudence Mena P.A.-C. Primary Care Pro vider Reason for Referral * Outpatient (Routine) - Closed Specialty Diagnoses / Procedures Referred By Talia galeas Referred To Contact Community Internal Medicine Prudence Mena MPAS, P.A.-CDmitry 300 [place] [address] Phone: tel: fax: [facility] Region Referral ID Status Reason Start Date Expiration Date Visits Re quested Visits Authorized [id number] Closed 08/12/2024 02/11/2026 1 1 ESS CONTROL TECH Reason for Visit * Reason Comments Follow-up * Appointment Request (Routine) - Closed Specialty Diagnoses / Procedures Referred By Talia galeas Referred To Contact Community Internal Medicine Referral ID Status Reason Start Date Expiration Date Visits Re quested Visits Authorized [id number] Closed 08/06/2024 11/06/2025 1 1 Encounter Details Date Type Department Care Team (Late st Contact Info) Description 08/12/2024 8:00 AM PROCESS CONTROL TECH Office Visit Department of Community Internal Medicine in [place], [place] 300 [place] [phone] Prudence Mena MPAS, P.A.-C. 300 [place] [phone] Empyema Pleural (HCC) (Primary Dx); Candidiasis Intertrigo Social History Tobacco Use Types Packs/Day Years Used Date Smoking Tobacco: Former Cigarettes 1.5 0.2 S tarted: 06/21/2024 Passive Smoke Exposure: Past Smokeless Tobacco: Never Tobacco Cessation:Counseling Given: Not Answered Alcohol Use Standard Drinks/Week Comments Yes 0 (1 standard drink = 0.6 oz pur e alcohol) socially [facility] [employer]ities Answer Date Recorded In the past 12 months has e [place], gas, oil, or water [employer] threatened to shut off services in your [...] How often do you attend methodist or nondenominational serv ices? Never 07/27/2022 Do [...] Date Recorded PHQ-2 Score 6 07/10/2024 [facility] of Occupat ional Health - [...] Comments Blood Pressure 128/84 08/12/2024 8:01 AM PROCESS CONTROL TECH Pulse 113 08/12/2024 8:01 AM PROCESS CONTROL TECH Temperature 36 C (96.8 F) 08/12/2024 8:01 AM PROCESS CONTROL TECH Respiratory Rate 16 08/12/2024 8:01 AM PROCESS CONTROL TECH Oxygen Saturation 98% 08/12/2024 8:01 AM PROCESS CONTROL TECH Inhaled Oxygen Concentration - - Weight 90.2 kg (198 lb 13.6 oz) 08/12/2024 8:01 AM PROCESS CONTROL TECH Height - - Body Mass Index 33.95 07/29/2024 2:12 PM PROCESS CONTROL TECH documented in this encounter Progress Notes * [...] affected area., Disp: 30 g, Rfl: 0 ESS CONTROL TECH documented in this encounter Plan of Treatment Upcoming Encounters Date Type Department Care Team (Late st Contact Info) Description 08/30/2024 9:00 AM PROCESS CONTROL TECH Office Visit Department of Community Internal Medicine in [place], [place] 300 [place] [address] Prudence Mena MPAS, P.A.-C. 300 [facility] [place] [address] Scheduled Referrals Name Type Priority Associated Diagnoses Orde r Schedule Community Internal Medicine office visit (clinic) Outpatient Referral Routine Expected: 08/19/2024, Expires: 11/09/2025 documented as of this encounter Procedures Procedure Name Priority Date/Time Associated Diagnosis Comments BACTERIAL CULTURE, AEROBIC + SUSC Routine 08/12/2024 8:35 AM PROCESS CONTROL TECH Empyema Pleural (HCC) documented in this encounter Results * (ABNORMAL) Bacterial Culture, Aerobic + Susceptibility (08/12/2024 8:35 AM PROCESS CONTROL TECH) Bacterial Culture, Aerobic + Susc YEAST 2+ (A) 08/14/2024 11:12 AM PROCESS CONTROL TECH MKTO Comment:No further identific ation Skin (Chest, Left) 08/12/2024 8:35 AM PROCESS CONTROL TECH 08/12/2024 6:46 PM PROCESS CONTROL TECH Comment:Specimen Source Site : Skin us Prudence TO, P.A.-C. LAB MICROBIOLOGY - GENERAL ORDERABLES Final Result [facility] [address] [place] [address], [facility] MKTO [facility] in [place] [address] [place] [address] documented in this encounter Visit Diagnoses Diagnosis Empyema Pleural (HCC)- Primary Candidiasis Intertrigo documented in this encounter Additional Health Concerns Assessment Noted Time PHQ-9 Depression Total Score: 22 025 7:19 PM PROCESS CONTROL TECH documented as of this encounter Care Teams Sales Center Associate Relationship Specialty Start Date End Date Prudence Mena MPAS, P.A.-C. 300 [place] [phone] PCP - General Internal Medicine 02/08/24 documented as of this encounter
--- OUTSIDE RECORDS SUMMARY | 2024-08-28 21:58 | XMS_ITS | Encounter Summary ---
Author Organization [facility] Address [address] [place] [address] Care Team Providers Care Seat Covers Trimmer Name Role Phone Prudence Mena P.A.-C. Primary Care Pro vider Reason for Visit * Reason Comments Outpatient Infusion ceftriaxone Encounter Details Date Type Department Care Team (Late st Contact Info) Description 08/02/2024 9:00 AM SUPERVISOR CARTON AND CAN SUPPLY Infusion Department of Infusion Therapy in [address] [phone] Melinda Isaac, FRED, C.N.P. [address] [place] [phone] Empyema Pleural (HCC) (Primary Dx) Social History Tobacco Use Types Packs/Day Years Used Date Smoking Tobacco: Former Cigarettes 1.5 0.2 S tarted: 06/21/2024 Passive Smoke Exposure: Past Smokeless Tobacco: Never Alcohol Use Standard Drinks/Week Comments Yes 0 (1 standard drink = 0.6 oz pur e alcohol) socially [facility] Utilities Answer Date Recorded In [...] How often do you attend sabianism or orthodoxy serv ices? Never 07/27/2022 Do [...] Answer Date Recorded PHQ-2 Score 6 07/10/2024 [facility] of Occupat ional Health - Occupational Stress [...] Comments Blood Pressure 122/89 08/02/2024 9:22 AM SUPERVISOR CARTON AND CAN SUPPLY Pulse 105 08/02/2024 9:22 AM SUPERVISOR CARTON AND CAN SUPPLY Temperature 36.1 C (97 F) 08/02/2024 9:22 AM SUPERVISOR CARTON AND CAN SUPPLY Respiratory Rate 18 08/02/2024 9:22 AM SUPERVISOR CARTON AND CAN SUPPLY Oxygen Saturation 94% 08/02/2024 9:22 AM SUPERVISOR CARTON AND CAN SUPPLY Inhaled Oxygen Concentration - - Weight - - Height - - Body Mass Index - - documented in this encounter Plan of Treatment Upcoming Encounters Date Type Department Care Team (Late st Contact Info) Description 08/30/2024 9:00 AM SUPERVISOR CARTON AND CAN SUPPLY Office Visit Department of Community Internal Medicine in [place], [place] [address] [facility] [place] [phone] Prudence Mena MPAS, P.A.-C. 300 [facility] [place] [address] documented as of this encounter Visit Diagnoses [...] infection, community acquired Given 08/02/2024 9:23 AM SUPERVISOR CARTON AND CAN SUPPLY 2 g documented in this encounter Additional Health Concerns Assessment Noted Time PHQ-9 Depression Total Score: 22 025 7:19 PM SUPERVISOR CARTON AND CAN SUPPLY documented as of this encounter Care Teams Seat Covers Trimmer Relationship Specialty Start Date End Date Prudence Mena MPAS, P.A.-C. 300 [facility] [place] [phone] PCP - General Internal Medicine 02/08/24 documented as of this encounter
--- OUTSIDE RECORDS SUMMARY | 2024-08-28 21:58 | XMS_ITS | Encounter Summary ---
Author Organization [facility] Address [address] [place] [address] Care Team Providers Care Soda Fountain Operator Name Role Phone Prudence Mena P.A.-C. Primary Care Pro vider Reason for Visit * Reason Comments Outpatient Infusion rocephin Encounter Details Date Type Department Care Team (Late st Contact Info) Description 08/03/2024 9:00 AM KNITTER HAND Infusion Department of Infusion Therapy in [address] [phone] Melinda Isaac, FRED, C.N.P. [address] [place] [phone] Empyema Pleural (HCC) (Primary Dx) Social History Tobacco Use Types Packs/Day Years Used Date Smoking Tobacco: Former Cigarettes 1.5 0.2 S tarted: 06/21/2024 Passive Smoke Exposure: Past Smokeless Tobacco: Never Alcohol Use Standard Drinks/Week Comments Yes 0 (1 standard drink = 0.6 oz pur e alcohol) socially [facility] Utilities Answer Date Recorded In the [...] How often do you attend uatsdin or shinto serv ices? Never 07/27/2022 Do [...] Answer Date Recorded PHQ-2 Score 6 07/10/2024 [facility] of Occupat ional Health - Occupational Stress [...] Comments Blood Pressure 138/82 08/03/2024 9:02 AM KNITTER HAND Pulse 110 08/03/2024 9:02 AM KNITTER HAND Temperature 35.9 C (96.6 F) 08/03/2024 9:02 AM KNITTER HAND Respiratory Rate 18 08/03/2024 9:02 AM KNITTER HAND Oxygen Saturation 95% 08/03/2024 9:02 AM KNITTER HAND Inhaled Oxygen Concentration - - Weight - - Height - - Body Mass Index - - documented in this encounter Plan of Treatment Upcoming Encounters Date Type Department Care Team (Late st Contact Info) Description 08/30/2024 9:00 AM KNITTER HAND Office Visit Department of Community Internal Medicine in [place], [place] 300 [facility] [place] [phone] Prudence Mena MPAS, P.A.-C. 300 [place] [address] documented as of this encounter Visit Diagnoses [...] infection, community acquired Given 08/03/2024 9:04 AM KNITTER HAND 2 g sodium chloride 0.9 % injection 10-30 mL 10-30 mL, intravenous, As needed, line care, Starting on 08/03/24 at 0855, Prior to and following infusion, between multiple consecutive infusions.10 mL to each lumen.Indications:Empyema Pleural (HCC) Given 08/03/2024 9:15 AM KNITTER HAND 10 mL Given 08/03/2024 9:04 AM KNITTER HAND 10 mL documented in this encounter Additional Health Concerns Assessment Noted Time PHQ-9 Depression Total Score: 22 025 7:19 PM KNITTER HAND documented as of this encounter Care Teams Soda Fountain Operator Relationship Specialty Start Date End Date Prudence Mena MPAS, P.A.-C. 300 [facility] [phone] PCP - General Internal Medicine 02/08/24 documented as of this encounter
--- OUTSIDE RECORDS SUMMARY | 2024-08-28 21:58 | XMS_ITS | Encounter Summary ---
Author Organization [facility] Address [address] [place] [address] Care Team Providers Care Access Services Assistant Name Role Phone Prudence Mena P.A.-C. Primary Care Pro vider Reason for Referral * Outpatient (Routine) - Closed Specialty Diagnoses / Procedures Referred By Talia galeas Referred To Contact Diagnoses Empyema Pleural (HCC) Procedures DX Chest AP or PA and Lateral 2 Views Kayleigh Small M.D. [address] [place] [phone] Phone: tel: fax: [facility] Referral ID Status Reason Start Date Expiration Date Visits Re quested Visits Authorized [id number] Closed 07/18/2024 07/18/2025 1 1 Y FARM SUPERVISOR Reason for Visit * Outpatient (Routine) - Closed Specialty Diagnoses / Procedures Referred By Contac t Referred To Contact Diagnoses Empyema Pleural (HCC) Procedures DX Chest AP or PA and Lateral 2 Views Kayleigh Small M.D. [address] [place] [phone] Phone: tel: fax: [facility] Referral ID Status Reason Start Date Expiration Date Visits Re quested Visits Authorized [id number] Closed 07/18/2024 07/18/2025 1 1 Encounter Details Date Type Department Care Team (Latest Contact Info) Description 08/05/2024 8:20 AM DAIRY FARM SUPERVISOR - 08/05/2024 11:59 PM DAIRY FARM SUPERVISOR Hospital Encounter Department of Radiology, [facility], in [place], [place] [address] [place] [address] Kayleigh Small M.D. 200 [place] [address] Empyema Pleural (HCC) Discharge Disposition: Home or Self Care Social History Tobacco Use Types Packs/Day Years Used Date Smoking Tobacco: Former Cigarettes 1.5 0.2 S tarted: 06/21/2024 Passive Smoke Exposure: Past Smokeless Tobacco: Never Alcohol Use Standard Drinks/Week Comments Yes 0 (1 standard drink = 0.6 oz pur e alcohol) socially [facility] Twitterities Answer Date Recorded In the past 12 months has e [employer], gas, oil, or water [employer] threatened to shut off services in your [...] How often do you attend anabaptist or anabaptist serv ices? Never 07/27/2022 Do you belong [...] [facility] of Occupat ional Health - Occupational [...] st Contact Info) Description 08/30/2024 9:00 AM DAIRY FARM SUPERVISOR Office Visit Department of Community Internal Medicine in [address] [place] [phone] Prudence Mena MPAS, P.A.-C. 300 [facility] [place] [phone] documented as of this encounter Procedures Procedure Name Priority Date/Time Associated Diagnosis Comments DX CHEST AP OR PA AND LATERAL 2 VIEWS RAD - Routine (most inpatients and all outpatients) 08/05/2024 8:24 AM DAIRY FARM SUPERVISOR Empyema Pleural (HCC) documented in this encounter Results * DX Chest AP or PA and Lateral 2 Views (08/05/2024 8:24 AM DAIRY FARM SUPERVISOR) Anatomical Region Laterality Modality Chest, Thoracic RST LOS, Tho racic ARZ LOS, Thoracic FLA LOS N/A Digital Radiography Impressions 08/05/2024 8:30 AM DAIRY FARM SUPERVISOR Compared with 07/26/2024. Stable areas of pleural and parenchymal scarring on the left. The small posterior left pleural effusion appears decreased. Right basilar atelectasis has resolved. Right PICC line in the upper right atrium. Chest otherwise negative. Narrative 08/05/2024 8:30 AM DAIRY FARM SUPERVISOR EXAM: DX CHEST AP OR PA [...] Depression Total Score: 22 025 7:19 PM DAIRY FARM SUPERVISOR documented as of this encounter Care Teams Access Services Assistant Relationship Specialty Start Date End Date Prudence Mena MPAS, P.A.-C. [address] [place] [phone] PCP - General Internal Medicine 02/08/24 documented as of this encounter
--- OUTSIDE RECORDS SUMMARY | 2024-08-28 21:58 | XMS_ITS | Encounter Summary ---
Author Organization [facility] Address [address] [place] [address] Care Team Providers Care Auto Tech Name Role Phone [place] Prudence Jatin TOADmitry-Demarcus Primary Care Pro vider Reason for Visit * Outpatient (Routine) - Closed Specialty Diagnoses / Procedures Referred By Contac t Referred To Contact Diagnoses Skilled Nursing Antibiotic Treatment Procedures Perform central molding line operator: Site care Melinda Cohen MPAS P.A.-C., M.S. 200 [place] [address] Phone: tel: fax: [facility] Region Referral ID Status Reason Start Date Expiration Date Visits Re quested Visits Authorized [id number] Closed 07/22/2024 10/22/2025 1 1 Encounter Details Date Type Department Care Team (Late st Contact Info) Description 08/01/2024 7:00 AM BLOW TORCH BURNER Infusion Department of Infusion Therapy in [address] [phone] Melinda Isaac APRN, C.N.P. [address] [place] [phone] Empyema Pleural (HCC) (Primary Dx); Skilled Nursing Antibiotic Treatment Social History Tobacco Use Types Packs/Day Years Used Date Smoking Tobacco: Former Cigarettes 1.5 0.2 S tarted: 06/21/2024 Passive Smoke Exposure: Past Smokeless Tobacco: Never Alcohol Use Standard Drinks/Week Comments Yes 0 (1 standard drink = 0.6 oz pur e alcohol) socially [facility] Utilities Answer Date Recorded In [...] Never 07/27/2022 How often do you attend latter-day or muslim serv ices? Never 07/27/2022 Do you belong to any clubs o r organizations such as latter-day groups, unions, fraternal or athletic groups, or [...] Answer Date Recorded PHQ-2 Score 6 07/10/2024 [facility] of Occupat ional [facility] - Occupational Stress Questionnaire Answer Date [...] Comments Blood Pressure 116/69 08/01/2024 7:21 AM BLOW TORCH BURNER Pulse 110 08/01/2024 7:21 AM BLOW TORCH BURNER Temperature 35.9 C (96.6 F) 08/01/2024 7:21 AM BLOW TORCH BURNER Respiratory Rate 18 08/01/2024 7:21 AM BLOW TORCH BURNER Oxygen Saturation 94% 08/01/2024 7:21 AM BLOW TORCH BURNER Inhaled Oxygen Concentration - - Weight - - Height - - Body Mass Index - - documented in this encounter Plan of Treatment Upcoming Encounters Date Type Department Care Team (Late st Contact Info) Description 08/30/2024 9:00 AM BLOW TORCH BURNER Office Visit Department of Community Internal Medicine in [place], [place] 300 [place] [phone] Prudence Mena, MPAS, P.A.-C. 300 [place] [address] documented as of this encounter Procedures Procedure Name Priority Date/Time Associated Diagnosis Comments CBC WITH DIFFERENTIAL, B Routine 08/01/2024 7:19 AM BLOW TORCH BURNER Empyema Pleural (HCC) Punch Press Feeder Antibiotic Treatment documented in this encounter Results * (ABNORMAL) CBC with Differential, Blood (08/01/2024 7:19 AM BLOW TORCH BURNER) Hemoglobin 10.2(L) 11.6 - 15.0 g/dL 08/01/2024 7:38 AM BLOW TORCH BURNER CNFL Hematocrit 33.0(L) 35.5 - 44.9 % 08/01/2024 7:38 AM BLOW TORCH BURNER CNFL Erythrocytes 3.81(L) 3.92 - 5.13 x10(12)/L 08/01/2024 7:38 AM BLOW TORCH BURNER CNFL MCV 86.6 78.2 - 97.9 fL 08/01/2024 7:38 AM BLOW TORCH BURNER CNFL RBC Distrib Width 15.2 12.2 - 16.1 % 08/01/2024 7:38 AM BLOW TORCH BURNER CNFL Platelet Count 787(H) 157 - 371 x10(9)/L 08/01/2024 7:38 AM BLOW TORCH BURNER CNFL Leukocytes 13.8(H) 3.4 - 9.6 x10(9)/L 08/01/2024 7:38 AM BLOW TORCH BURNER CNFL Neutrophils 9.76(H) 1.56 - 6.45 x10(9)/L 08/01/2024 7:38 AM BLOW TORCH BURNER CNFL Lymphocytes 2.05 0.95 - 3.07 x10(9)/L 08/01/2024 7:38 AM BLOW TORCH BURNER CNFL Monocytes 1.47(H) 0.26 - 0.81 x10(9)/L 08/01/2024 7:38 AM BLOW TORCH BURNER CNFL Eosinophils 0.38 0.03 - 0.48 x10(9)/L 08/01/2024 7:38 AM BLOW TORCH BURNER CNFL Basophils 0.09(H) 0.01 - 0.08 x10(9)/L 08/01/2024 7:38 AM BLOW TORCH BURNER CNFL Blood (Blood, Venous) 08/01/2024 7:19 AM BLOW TORCH BURNER 08/01/2024 7:34 AM BLOW TORCH BURNER us Kayleigh Small M.D. LAB BLOOD ADD-ON Final Result Performing Organization Address [facility]/State/[facility] Co de Phone Number [facility] [address] [place] [address], [facility] in [address] [address] documented in this encounter Visit Diagnoses Diagnosis Empyema Pleural (HCC)- Primary Punch Press Feeder Antibiotic Treatment documented in this encounter Administered [...] infection, community acquired Given 08/01/2024 7:19 AM BLOW TORCH BURNER 2 g sodium chloride 0.9 % injection 20-60 mL 20-60 mL, intravenous, As needed, line care, Starting on Gloria 08/01/24 at 0714, Prior to blood sampling, post blood transfusion or post blood sampling. 20 mL to each lumen.Indications:Empyema Pleural (HCC) Given 08/01/2024 7:24 AM BLOW TORCH BURNER 10 mL Given 08/01/2024 7:19 AM BLOW TORCH BURNER 10 mL documented in this encounter Additional Health Concerns Assessment Noted Time PHQ-9 Depression Total Score: 22 025 7:19 PM BLOW TORCH BURNER documented as of this encounter Care Teams Auto Tech Relationship Specialty Start Date End Date Prudence Mena MPAS, P.A.-C. [address] [place] [phone] PCP - General Internal Medicine 02/08/24 documented as of this encounter
--- OUTSIDE RECORDS SUMMARY | 2024-08-28 21:58 | XMS_ITS | Encounter Summary ---
Author Organization [facility] Address [address] [place] [address] Care Team Providers Care Supervisor Statement Clerks Name Role Phone Prudence Mena P.A.-C. Primary Care Pro vider Reason for Referral * Outpatient (Routine) - Closed Specialty Diagnoses / Procedures Referred By Contray t Referred To Contact Diagnoses Custodian Blood Bank Antibiotic Treatment Procedures Remove PICC (non-tunneled) or Midline Catheter Shanel Starr P.A.-CDmitry [address] [place] [phone] Phone: tel: fax: [facility] Referral ID Status Reason Start Date Expiration Date Visits Re quested Visits Authorized [id number] Closed 07/30/2024 10/30/2025 1 1 UNT GROUP SUPERVISOR Reason for Visit * Reason Comments OPAT Encounter Details Date Type Department Care Team ([facility] st Contact Info) Description 07/29/2024 Patient Outreach Section of Infectious Diseases in [place], [place] [address] [place] [phone] Lashell Greene R.N. [address] [place] [phone] OPAT Social History Tobacco Use Types Packs/Day Years Used Date Smoking Tobacco: Former Cigarettes 1.5 0.2 S tarted: 06/21/2024 Passive Smoke Exposure: Past Smokeless Tobacco: Never Alcohol Use Standard Drinks/Week Comments Yes 0 (1 standard drink = 0.6 oz pur e alcohol) socially [facility] Utilities Answer Date Recorded In the [...] How often do you attend uatsdin or tenriism serv ices? Never 07/27/2022 Do you belong [...] Answer Date Recorded PHQ-2 Score 6 07/10/2024 [facility] [place] of Occupat ional Health - Occupational Stress [...] referred back to ED for further evaluation. UNT GROUP SUPERVISOR UNT GROUP SUPERVISOR * Denny Barajas, PharmLottie., R.Ph. - 07/29/2024 [...] referred back to ED for further evaluation. UNT GROUP SUPERVISOR UNT GROUP SUPERVISOR UNT GROUP SUPERVISOR UNT GROUP SUPERVISOR UNT GROUP SUPERVISOR UNT GROUP SUPERVISOR documented in this encounter Nursing Notes * Sheri Baltazar, R.N. - 08/01/2024 1:46 PM CST OPAT NOTE - LAB REVIEW Name Phone Number OPAT Infusion/Labs: [facility]: [facility] (M-F) OPAT Infusion/Labs: [facility]: [facility] (Sat/Sun) Problem: Outpatient Antimicrobial Therapy Monitoring Description: [...] abnormality Interpretation and Action: [facility] regarding CBC abnormals (platelets and WBC). Results are improving from previous draw on 07/29/24. Will see if Pharmacist has new parametersor wants to make changes to lab schedule based on results from 08/01/24 Reference used: Guideline for Antimicrobial Therapy Monitoring for the Division of Infectious Diseases - [id number] UNT GROUP SUPERVISOR * Lashell Greene RDmitryNDmitry - 07/29/2024 2:44 PM CST OPAT NOTE - LAB REVIEW Name Phone Number OPAT Infusion/Labs: [facility]: [facility] (M-F) OPAT Infusion/Labs: [facility]: [facility] (Sat/Sun) Problem: Outpatient Antimicrobial Therapy Monitoring Description: [...] for the Division of Infectious Diseases - [id number] Of note: This was sent to the inbasket from Denae Headley RN, Melinda Kumar reported to the [facility] for her scheduled Rocephin and weekly PICC lab draw. She reports increased pain on her LLQ abdomen that is not going away. She stated that she contacted the surgery team andwas advised to contact IFD. This RN forwarded her concerns to the IFD in-basket asking that the patient be contacted by phone [phone] when lab results are reviewed. UNT GROUP SUPERVISOR * Lashell Greene R.N. - 07/29/2024 2:33 PM CST Error UNT GROUP SUPERVISOR documented in this encounter Miscellaneous Notes * Addendum Note - Denny Barajas, Pharm.D., R.Ph. - 07/29/2024 4:29 PM ACCOUNT GROUP SUPERVISOR Addended by: DENNY BARAJAS on: 07/29/2024 04:29 PM Modules accepted: Orders UNT GROUP SUPERVISOR * Addendum Note - Ezio Barrett - 07/29/2024 2:32 PM CSTAddended by: EZIO BARRETT on: 07/30/2024 11:47 AM Modules accepted: Orders UNT GROUP SUPERVISOR documented in this encounter Plan of Treatment Upcoming Encounters Date Type Department Care Team (Late st Contact Info) Description 08/30/2024 9:00 AM ACCOUNT GROUP SUPERVISOR Office Visit Department of Community Internal Medicine in [place], [place] 300 [facility] [place] [phone] Prudence Mena MPAS, P.A.-C. 300 [facility] [place] [phone] Scheduled Orders Name Type Priority Associated Diagnoses Orde r Schedule Remove PICC (non-tunneled) or Midline Catheter Procedures Routine Alf Antibiotic Treatment Expected: 08/05/2024, Expires: 10/28/2025 documented as of this encounter Results * (ABNORMAL) CBC with Differential, Blood (08/01/2024 7:19 AM ACCOUNT GROUP SUPERVISOR) Hemoglobin 10.2(L) 11.6 - 15.0 g/dL 08/01/2024 7:38 AM ACCOUNT GROUP SUPERVISOR CNFL Hematocrit 33.0(L) 35.5 - 44.9 % 08/01/2024 7:38 AM ACCOUNT GROUP SUPERVISOR CNFL Erythrocytes 3.81(L) 3.92 - 5.13 x10(12)/L 08/01/2024 7:38 AM ACCOUNT GROUP SUPERVISOR CNFL MCV 86.6 78.2 - 97.9 fL 08/01/2024 7:38 AM ACCOUNT GROUP SUPERVISOR CNFL RBC Distrib Width 15.2 12.2 - 16.1 % 08/01/2024 7:38 AM ACCOUNT GROUP SUPERVISOR CNFL Platelet Count 787(H) 157 - 371 x10(9)/L 08/01/2024 7:38 AM ACCOUNT GROUP SUPERVISOR CNFL Leukocytes 13.8(H) 3.4 - 9.6 x10(9)/L 08/01/2024 7:38 AM ACCOUNT GROUP SUPERVISOR CNFL Neutrophils 9.76(H) 1.56 - 6.45 x10(9)/L 08/01/2024 7:38 AM ACCOUNT GROUP SUPERVISOR CNFL Lymphocytes 2.05 0.95 - 3.07 x10(9)/L 08/01/2024 7:38 AM ACCOUNT GROUP SUPERVISOR CNFL Monocytes 1.47(H) 0.26 - 0.81 x10(9)/L 08/01/2024 7:38 AM ACCOUNT GROUP SUPERVISOR CNFL Eosinophils 0.38 0.03 - 0.48 x10(9)/L 08/01/2024 7:38 AM ACCOUNT GROUP SUPERVISOR CNFL Basophils 0.09(H) 0.01 - 0.08 x10(9)/L 08/01/2024 7:38 AM ACCOUNT GROUP SUPERVISOR CNFL Blood (Blood, Venous) 08/01/2024 7:19 AM ACCOUNT GROUP SUPERVISOR 08/01/2024 7:34 AM ACCOUNT GROUP SUPERVISOR us Kayleigh Small M.D. LAB BLOOD ADD-ON Final Result [facility] [address] [place] [address], [facility] CNFL [facility] in [address] [address] documented in this encounter Visit Diagnoses Diagnosis Empyema Pleural (HCC)- Primary Alf Antibiotic Treatment documented in this encounter Additional Health Concerns Assessment Noted Time PHQ-9 Depression Total Score: 22 025 7:19 PM ACCOUNT GROUP SUPERVISOR documented as of this encounter Care Teams Supervisor Statement Clerks Relationship Specialty Start Date End Date Prudence Mena MPAS, P.A.-C. [address] [place] [phone] PCP - General Internal Medicine 02/08/24 documented as of this encounter
--- OUTSIDE RECORDS SUMMARY | 2024-08-28 21:58 | XMS_ITS | Encounter Summary ---
Author Organization [facility] Address [address] [place] [address] Care Team Providers Care Instant Print Operator Name Role Phone Prudence Mena P.A.-C. Primary Care Pro vider Reason for Visit * Reason Onset Date Comments New Med Request 08/06/2024 Encounter Details Date Type Department Care Team (Latest Contact Info) Description 08/06/2024 Clinical Communication Department of Community Internal Medicine in [place], [place] 300 [place] [phone] Prudence Mena MPAS, P.A.-CDmitry 300 [place] [phone] New Med Request Social History [...] How often do you attend adventism or congregation serv ices? Never 07/27/2022 Do you belong [...] 6 07/10/2024 [facility] of Occupat ional Health - [...] the patient know prescription has been sent. [employer] FOOTBALL COACH documented in this encounter Plan of Treatment Upcoming Encounters Date Type Department Care Team (Late st Contact Info) Description 08/30/2024 9:00 AM MIDDLE SCHOOL FOOTBALL COACH Office Visit Department of Community Internal Medicine in [place], [place] 300 [facility] [place] [address] Prudence Mena MPAS, PDmitryA.-C. 300 [facility] [phone] documented as of this encounter Visit Diagnoses Not on filedocumented in this encounter Additional Health Concerns Assessment Noted Time PHQ-9 Depression Total Score: 22 025 7:19 PM MIDDLE SCHOOL FOOTBALL COACH documented as of this encounter Care Teams Instant Print Operator Relationship Specialty Start Date End Date Prudence Mena MPAS, P.A.-C. 300 [facility] [place] [phone] PCP - General Internal Medicine 02/08/24 documented as of this encounter
--- OUTSIDE RECORDS SUMMARY | 2024-08-28 21:58 | XMS_ITS | Encounter Summary ---
Author Organization [facility] Address [address] [place] [address] Care Team Providers Care Budget Clerk Name Role Phone Prudence Mena P.A.-C. Primary Care Pro vider Reason for Visit * Reason Comments Outpatient Infusion Rocephin/lab draw Encounter Details Date Type Department Care Team (Late st Contact Info) Description 08/04/2024 9:00 AM MID TEACHER Infusion Department of Infusion Therapy in [address] [phone] Melinda Isaac, FRED, C.N.P. [address] [place] [phone] Empyema Pleural (HCC) (Primary Dx); Penitentiary Antibiotic Treatment Social History Tobacco Use Types Packs/Day Years Used Date Smoking Tobacco: Former Cigarettes 1.5 0.2 S tarted: 06/21/2024 Passive Smoke Exposure: Past Smokeless Tobacco: Never Alcohol Use Standard Drinks/Week Comments Yes 0 (1 standard drink = 0.6 oz pur e alcohol) socially [facility] Utilities Answer Date Recorded In the past 12 months has e [employer], gas, oil, or water [employer] threatened to shut off services in your [...] Never 07/27/2022 How often do you attend buddhism or sabianism serv ices? Never 07/27/2022 Do you belong to any clubs o r organizations such as buddhism groups, unions, fraternal or athletic groups, or [...] PHQ-2 Score 6 07/10/2024 [facility] of Occupat ional Health - Occupational Stress [...] Comments Blood Pressure 154/98 08/04/2024 9:23 AM MID TEACHER Pulse 101 08/04/2024 9:23 AM MID TEACHER Temperature 35.9 C (96.6 F) 08/04/2024 9:23 AM MID TEACHER Respiratory Rate 18 08/04/2024 9:23 AM MID TEACHER Oxygen Saturation 100% 08/04/2024 9:23 AM MID TEACHER Inhaled Oxygen Concentration - - Weight - - Height - - Body Mass Index - - documented in this encounter Plan of Treatment Upcoming Encounters Date Type Department Care Team (Late st Contact Info) Description 08/30/2024 9:00 AM MID TEACHER Office Visit Department of Community Internal Medicine in [place], [place] 300 [facility] [phone] Prudence Mena MPAS, P.A.-C. 300 [place] [phone] documented as of this encounter Procedures Procedure Name Priority Date/Time Associated Diagnosis Comments CBC WITH DIFFERENTIAL, B Routine 025 9:11 AM MID TEACHER Penitentiary Antibiotic Treatment ALANINE AMINOTRANSFERASE (ALT), S/P Routine 08/04/2024 9:11 AM MID TEACHER Visitor Services Associate Antibiotic Treatment ALKALINE PHOSPHATASE, S/P Routine 08/04/2024 9:11 AM MID TEACHER Visitor Services Associate Antibiotic Treatment CREATININE WITH EGFR, S/P Routine 08/04/2024 9:11 AM MID TEACHER Visitor Services Associate Antibiotic Treatment documented in this encounter Results * (ABNORMAL) Alkaline Phosphatase (08/04/2024 9:11 AM MID TEACHER) Alkaline Phosphatase, P 106(H) 35 - 104 U/L 08/04/2024 9:42 AM MID TEACHER RDWG Blood (Blood, PICC) 08/04/2024 9:11 AM MID TEACHER 08/04/2024 9:21 AM MID TEACHER us Melinda TO, P.A.-C., M.S. LAB BLOOD ADD-ON Final Result [facility] [address] [place] [address] RDWG [facility] [place] [address] * ALT (Alanine Aminotransferase) (08/04/2024 9:11 AM MID TEACHER) Alanine Aminotransferase (ALT), P 10 7 - 45 U/L 08/04/2024 9:42 AM MID TEACHER RDWG Blood (Blood, PICC) 08/04/2024 9:11 AM MID TEACHER 08/04/2024 9:21 AM MID TEACHER us Melinda TO, P.A.-C., M.S. LAB BLOOD ADD-ON Final Result [facility] [place] [address], [facility] RDWG [facility] in [place] [address] [place] [address] * (ABNORMAL) Creatinine with Estimated GFR (08/04/2024 9:11 AM MID TEACHER) Creatinine 0.44(L) 0.59 - 1.04 mg/dL 08/04/2024 9:42 AM MID TEACHER RDWG Estimated GFR (eGFR) >90 >=60 mL/min/BSA 08/04/2024 9:42 AM MID TEACHER RDWG Comment: Estimated GFR calculated using the 2020 CKD_EPI creatinine equation. Blood (Blood, PICC) 08/04/2024 9:11 AM MID TEACHER 08/04/2024 9:21 AM MID TEACHER us Melinda TO, P.A.-C., M.S. LAB BLOOD ADD-ON Final Result [facility] [place] [address], [facility] [place] [address] * (ABNORMAL) CBC with Differential, Blood (08/04/2024 9:11 AM MID TEACHER) Hemoglobin 10.8(L) 11.6 - 15.0 g/dL 08/04/2024 9:24 AM MID TEACHER RDWG Hematocrit 35.3(L) 35.5 - 44.9 % 08/04/2024 9:24 AM MID TEACHER RDWG Erythrocytes 4.14 3.92 - 5.13 x10(12)/L 08/04/2024 9:24 AM MID TEACHER RDWG MCV 85.3 78.2 - 97.9 fL 08/04/2024 9:24 AM MID TEACHER RDWG RBC Distrib Width 15.4 12.2 - 16.1 % 08/04/2024 9:24 AM MID TEACHER RDWG Platelet Count 795(H) 157 - 371 x10(9)/L 08/04/2024 9:24 AM MID TEACHER RDWG Leukocytes 16.2(H) 3.4 - 9.6 x10(9)/L 08/04/2024 9:24 AM MID TEACHER RDWG Neutrophils 13.51(H) 1.56 - 6.45 x10(9)/L 08/04/2024 9:24 AM MID TEACHER RDWG Lymphocytes 1.65 0.95 - 3.07 x10(9)/L 08/04/2024 9:24 AM MID TEACHER RDWG Monocytes 0.65 0.26 - 0.81 x10(9)/L 08/04/2024 9:24 AM MID TEACHER RDWG Eosinophils 0.28 0.03 - 0.48 x10(9)/L 08/04/2024 9:24 AM MID TEACHER RDWG Basophils 0.08 0.01 - 0.08 x10(9)/L 08/04/2024 9:24 AM MID TEACHER RDWG Blood (Blood, PICC) 08/04/2024 9:11 AM MID TEACHER 08/04/2024 9:21 AM MID TEACHER us Melinda TO, P.A.-C., M.S. LAB BLOOD ADD-ON Final Result [facility] [address] [address], [facility] RDWG [facility] [place] [address] [phone] documented in this encounter Visit Diagnoses Diagnosis Empyema Pleural (HCC)- Primary Visitor Services Associate Antibiotic Treatment documented in this encounter Administered [...] infection, community acquired Given 08/04/2024 9:18 AM MID TEACHER 2 g sodium chloride 0.9 % injection 10-30 mL 10-30 mL, intravenous, As needed, line care, Starting on 08/04/24 at 0855, Prior to and following infusion, between multiple consecutive infusions.10 mL to each lumen.Indications:Empyema Pleural (HCC) Given 08/04/2024 9:19 AM MID TEACHER 20 mL Given 08/04/2024 9:18 AM MID TEACHER 10 mL documented in this encounter Additional Health Concerns Assessment Noted Time PHQ-9 Depression Total Score: 22 025 7:19 PM MID TEACHER documented as of this encounter Care Teams Budget Clerk Relationship Specialty Start Date End Date Prudence Mena MPAS, P.A.-C. [address] [place] [address] [place] [phone] PCP - General Internal Medicine 02/08/24 documented as of this encounter
--- OUTSIDE RECORDS SUMMARY | 2024-08-28 21:58 | XMS_ITS | Encounter Summary ---
Author Organization [facility] Address [address] [place] [address] Care Team Providers Care Manager Of Transportation Name Role Phone Prudence Mena P.ADmitry-CDmitry Primary Care Pro vider Reason for Visit * Reason Comments Follow-up [facility] to [facility]- surgery * Appointment Request (Routine) - Pending Review Specialty Diagnoses / Procedures Referred By Talia galeas Referred To Contact Community Internal Medicine Referral ID Status Reason Start Date Expiration Date V isits Requested Visits Authorized [id number] Pending Review 07/22/2024 10/22/2025 1 1 Encounter Details Date Type Department Care Team (Late st Contact Info) Description 07/29/2024 2:20 PM LEASING PROPERTY MANAGER Office Visit Department of Community Internal Medicine in [place], [place] [address] [place] [address] Prudence Mena MPAS P.A.-CDmitry [address] [place] [address] Stool Positive Occult Blood (Primary [...] = 0.6 oz pur e alcohol) socially [facility] Utilities Answer Date Recorded In the past 12 months has th e electric, [employer], oil, or water [employer] threatened to shut off services in your [...] Never 07/27/2022 How often do you attend adventist or rastafarian serv ices? Never 07/27/2022 Do you belong to any clubs o r organizations such as adventist groups, unions, fraternal or athletic groups, or [...] Answer Date Recorded PHQ-2 Score 6 07/10/2024 [place] of Occupat ional Health - Occupational Stress [...] Comments Blood Pressure 140/93 07/29/2024 2:28 PM LEASING PROPERTY MANAGER Pulse 106 07/29/2024 2:28 PM LEASING PROPERTY MANAGER Temperature 36 C (96.8 F) 07/29/2024 2:12 PM LEASING PROPERTY MANAGER Respiratory Rate - - Oxygen Saturation 97% 07/29/2024 2:12 PM LEASING PROPERTY MANAGER Inhaled Oxygen Concentration - - Weight 92 kg (202 lb 13.2 oz) 07/29/2024 2:12 PM LEASING PROPERTY MANAGER Height 163 cm (5' 4.17) 07/29/2024 2:12 PM LEASING PROPERTY MANAGER Body Mass Index 34.63 07/29/2024 2:12 PM LEASING PROPERTY MANAGER documented in this encounter Progress Notes * Prudence Mena MPAS, P.A.-C. - 07/29/2024 2:20 PM CST SUBJECTIVE CHIEF COMPLAINT/REASON FOR VISIT Chief Complaint Patient presents with Follow-up [facility] to [facility]- surgery HISTORY OF PRESENT ILLNESS Melinda Kumar is a pleasant 39 y.o. female who presents to the clinic today for post hospital follow-up. She was admitted to [facility] 07/13/2024 and discharged 07/20/2024 with a [...] receiving her infusion antibiot ic therapy in [place]. The following portions of the patient's history [...] a venous catheter daily for 17 days. [facility], Disp: , Rfl: cholecalciferol (VITAMIN D3) [...] No current facility-administered medications for this visit. ING PROPERTY MANAGER documented in this encounter Plan of Treatment Upcoming Encounters Date Type Department Care Team (Late st Contact Info) Description 08/30/2024 9:00 AM LEASING PROPERTY MANAGER Office Visit Department of Community Internal Medicine in [place], [place] [address] [place] [address] Prudence Mena MPAS, P.A.-C. [address] [place] [address] documented as of this encounter Visit Diagnoses Diagnosis Stool Positive Occult Blood- Primary Empyema Pleural (HCC) Nausea Major Depressive Disorder, Recurrent, Unspecified (HCC) Asthma (HCC) documented in this encounter Additional Health Concerns Assessment Noted Time PHQ-9 Depression Total Score: 22 025 7:19 PM LEASING PROPERTY MANAGER documented as of this encounter Care Teams Manager Of Transportation Relationship Specialty Start Date End Date Prudence Mena MPAS, P.A.-C. [address] [place] [address] PCP - General Internal Medicine 02/08/24 documented as of this encounter
--- OUTSIDE RECORDS SUMMARY | 2024-08-28 21:58 | XMS_ITS | Encounter Summary ---
Author Organization [facility] Address [address] [place] [address] Care Team Providers Care Reservations Manager Name Role Phone Prudence Mena P.A.-C. Primary Care Pro vider Reason for Visit * Reason Comments Outpatient Infusion Encounter Details Date Type Department Care Team (Late st Contact Info) Description 07/30/2024 9:00 AM HOT DOG VENDER Infusion Department of Infusion Therapy in [address] [phone] Melinda Isaac, FRED, C.N.P. [address] [place] [phone] Empyema Pleural (HCC) (Primary Dx) Social History Tobacco Use Types Packs/Day Years Used Date Smoking Tobacco: Former Cigarettes 1.5 0.2 S tarted: 06/21/2024 Passive Smoke Exposure: Past Smokeless Tobacco: Never Alcohol Use Standard Drinks/Week Comments Yes 0 (1 standard drink = 0.6 oz pur e alcohol) socially [facility] Utilities Answer Date Recorded In [...] How often do you attend rastafari or yazdanism serv ices? Never 07/27/2022 Do [...] PHQ-2 Score 6 07/10/2024 [facility] of Occupat ional Health - Occupational Stress [...] Comments Blood Pressure 138/90 07/30/2024 9:22 AM HOT DOG VENDER Pulse 98 07/30/2024 9:22 AM HOT DOG VENDER Temperature 35 C (95 F) 07/30/2024 9:22 AM HOT DOG VENDER Respiratory Rate 16 07/30/2024 9:22 AM HOT DOG VENDER Oxygen Saturation 100% 07/30/2024 9:22 AM HOT DOG VENDER Inhaled Oxygen Concentration - - Weight - - Height - - Body Mass Index - - documented in this encounter Plan of Treatment Upcoming Encounters Date Type Department Care Team (Late st Contact Info) Description 08/30/2024 9:00 AM HOT DOG VENDER Office Visit Department of Community Internal Medicine in [place], [place] 300 [facility] [place] [id number] Prudence Mena MPAS, P.A.-C. [address] [place] [address] documented as of this encounter Visit Diagnoses [...] infection, community acquired Given 07/30/2024 9:24 AM HOT DOG VENDER 2 g sodium chloride 0.9 % injection 10-30 mL 10-30 mL, intravenous, As needed, line care, Starting on Mon07/30/24 at 0902, Prior to and following infusion, between multiple consecutive infusions.10 mL to each lumen.Indications:Empyema Pleural (HCC) Given 07/30/2024 9:34 AM HOT DOG VENDER 10 mL Given 07/30/2024 9:20 AM HOT DOG VENDER 10 mL documented in this encounter Additional Health Concerns Assessment Noted Time PHQ-9 Depression Total Score: 22 025 7:19 PM HOT DOG VENDER documented as of this encounter Care Teams Reservations Manager Relationship Specialty Start Date End Date Prudence Mena MPAS, P.A.-C. 300 [facility] [place] [place] [phone] PCP - General Internal Medicine 02/08/24 documented as of this encounter
--- OUTSIDE RECORDS SUMMARY | 2024-08-28 21:58 | XMS_ITS | Encounter Summary ---
Author Organization [facility] Address [address] [place] [address] Care Team Providers Care Shafting Cleaner Name Role Phone Prudence Mena P.A.-C. Primary Care Pro vider Reason for Visit * Reason Comments Outpatient Infusion Encounter Details Date Type Department Care Team (Late st Contact Info) Description 07/31/2024 8:00 AM JEWEL CUPPING MACHINE OPERATOR Infusion Department of Infusion Therapy in [address] [phone] Melinda Isaac, FRED, C.N.P. [address] [place] [phone] Empyema Pleural (HCC) (Primary Dx) Social History Tobacco Use Types Packs/Day Years Used Date Smoking Tobacco: Former Cigarettes 1.5 0.2 S tarted: 06/21/2024 Passive Smoke Exposure: Past Smokeless Tobacco: Never Alcohol Use Standard Drinks/Week Comments Yes 0 (1 standard drink = 0.6 oz pur e alcohol) socially [facility] Utilities Answer Date Recorded In [...] How often do you attend congregational or lutheran serv ices? Never 07/27/2022 Do you belong [...] Answer Date Recorded PHQ-2 Score 6 07/10/2024 [facility] [place] of Occupat ional Health - Occupational Stress [...] Comments Blood Pressure 148/92 07/31/2024 8:14 AM JEWEL CUPPING MACHINE OPERATOR Pulse 113 07/31/2024 8:14 AM JEWEL CUPPING MACHINE OPERATOR Temperature 35.6 C (96.1 F) 07/31/2024 8:14 AM JEWEL CUPPING MACHINE OPERATOR Respiratory Rate 18 07/31/2024 8:14 AM JEWEL CUPPING MACHINE OPERATOR Oxygen Saturation 96% 07/31/2024 8:14 AM JEWEL CUPPING MACHINE OPERATOR Inhaled Oxygen Concentration - - Weight - - Height - - Body Mass Index - - documented in this encounter Plan of Treatment Upcoming Encounters Date Type Department Care Team (Late st Contact Info) Description 08/30/2024 9:00 AM JEWEL CUPPING MACHINE OPERATOR Office Visit Department of Community Internal Medicine in [place], [place] 300 [facility] [place] [address] Prudence Mena MPAS, P.A.-C. [address] [place] [address] documented as of this encounter Visit Diagnoses [...] infection, community acquired Given 07/31/2024 8:16 AM JEWEL CUPPING MACHINE OPERATOR 2 g sodium chloride 0.9 % injection 10-30 mL 10-30 mL, intravenous, As needed, line care, Starting on Mon07/31/24 at 0757, Prior to and following infusion, between multiple consecutive infusions.10 mL to each lumen.Indications:Empyema Pleural (HCC) Given 07/31/2024 8:21 AM JEWEL CUPPING MACHINE OPERATOR 10 mL Given 07/31/2024 8:15 AM JEWEL CUPPING MACHINE OPERATOR 10 mL documented in this encounter Additional Health Concerns Assessment Noted Time PHQ-9 Depression Total Score: 22 025 7:19 PM JEWEL CUPPING MACHINE OPERATOR documented as of this encounter Care Teams Shafting Cleaner Relationship Specialty Start Date End Date Prudence Mena MPAS, P.A.-C. [address] [place] [address] PCP - General Internal Medicine 02/08/24 documented as of this encounter
--- OUTSIDE RECORDS SUMMARY | 2024-08-28 21:59 | XMS_ITS | Encounter Summary ---
Author Organization [facility] Address [address] [place] [address] Care Team Providers Care Varnish Maker Helper Name Role Phone Prudence Mena P.A.-C. Primary Care Pro vider Reason for Visit * Reason Comments Central line draw Outpatient Infusion * Outpatient (Routine) - Closed Specialty Diagnoses / Procedures Referred By Contac t Referred To Contact Diagnoses Empyema Pleural (HCC) Procedures Perform central online merchandiser: Flush port(s), Site care Melinda Isaac APRN, C.N.P. [address] [place] [phone] Phone: tel: fax: [facility] Referral ID Status Reason Start Date Expiration Date Visits Re quested Visits Authorized [id number] Closed 07/19/2024 07/19/2025 1 1 Encounter Details Date Type Department Care Team (Late st Contact Info) Description 07/29/2024 10:00 AM WATER ANALYST Infusion Department of Infusion Therapy in [address] [phone] Melinda Isaac APRN, C.N.P. [address] [place] [phone] Empyema Pleural (HCC) (Primary Dx) Social History Tobacco Use Types Packs/Day Years Used Date Smoking Tobacco: Former Cigarettes 1.5 0.2 S tarted: 06/21/2024 Passive Smoke Exposure: Past Smokeless Tobacco: Never Alcohol Use Standard Drinks/Week Comments Yes 0 (1 standard drink = 0.6 oz pur e alcohol) socially [facility] Utilities Answer Date Recorded In [...] How often do you attend mandaen or muslim serv ices? Never 07/27/2022 Do [...] 07/10/2024 [facility] - Occupational Stress Questionnaire Answer Date [...] Comments Blood Pressure 134/99 07/29/2024 10:22 AM WATER ANALYST Pulse 18 07/29/2024 10:22 AM WATER ANALYST Temperature 36 C (96.8 F) 07/29/2024 10:22 AM WATER ANALYST Respiratory Rate 18 07/29/2024 10:22 AM WATER ANALYST Oxygen Saturation 92% 07/29/2024 10:22 AM WATER ANALYST Inhaled Oxygen Concentration - - Weight - - Height - - Body Mass Index - - documented in this encounter Progress Notes * Denae Headley, R.N. - 07/29/2024 10:00 AM CST Melinda Kumar reported to the [facility] for her scheduled Rocephin and weekly PICC lab draw. She reports increased pain on her LLQ abdomen that is not going away. She stated that she contacted the surgery team and was advised to contact [facility]. This RN forwarded her concerns to the [facility] in- basket asking that the patient be contacted by phone [phone] when lab results are reviewed. R ANALYST documented in this encounter Plan of Treatment Upcoming Encounters Date Type Department Care Team (Late st Contact Info) Description 08/30/2024 9:00 AM WATER ANALYST Office Visit Department of Community Internal Medicine in [place], [place] [address] [place] [phone] Prudence Mena MPAS, P.A.-C. 300 [place] [phone] documented as of this encounter Procedures Procedure Name Priority Date/Time Associated Diagnosis Comments CBC WITH DIFFERENTIAL, B Routine 025 10:15 AM WATER ANALYST Empyema Pleural (HCC) ALANINE AMINOTRANSFERASE (ALT), S/P Routine 07/29/2024 10:15 AM WATER ANALYST Empyema Pleural (HCC) ALKALINE PHOSPHATASE, S/P Routine 07/29/2024 10:15 AM WATER ANALYST Empyema Pleural (HCC) CREATININE WITH EGFR, S/P Routine 07/29/2024 10:15 AM WATER ANALYST Empyema Pleural (HCC) documented in this encounter Results * (ABNORMAL) Creatinine with Estimated GFR (07/29/2024 10:15 AM WATER ANALYST) Creatinine 0.53(L) 0.59 - 1.04 mg/dL 07/29/2024 10:39 AM WATER ANALYST CNFL Estimated GFR (eGFR) >90 >=60 mL/min/BSA 07/29/2024 10:39 AM WATER ANALYST CNFL Comment: Estimated GFR calculated using the 2020 CKD_EPI creatinine equation. Blood (Blood, PICC) 07/29/2024 10:15 AM WATER ANALYST 07/29/2024 10:18 AM WATER ANALYST us Melinda Isaac APRN, C.N.P. LAB BLOOD ADD-ON Final Result Performing Organization Address City/[facility]/ZIP Co de Phone Number [facility] [address] [place] [address], [facility] [place] [address] * Alkaline Phosphatase (07/29/2024 10:15 AM WATER ANALYST) Alkaline Phosphatase, P 97 35 - 104 U/L 07/29/2024 10:39 AM WATER ANALYST CNFL Blood (Blood, PICC) 07/29/2024 10:15 AM WATER ANALYST 07/29/2024 10:18 AM WATER ANALYST us Melinda Isaac APRN, C.N.P. LAB BLOOD ADD-ON Final Result [facility] [address] [place] [address], [address] [address] * ALT (Alanine Aminotransferase) (07/29/2024 10:15 AM WATER ANALYST) Alanine Aminotransferase (ALT), P 15 7 - 45 U/L 07/29/2024 10:39 AM WATER ANALYST CNFL Blood (Blood, PICC) 07/29/2024 10:15 AM WATER ANALYST 07/29/2024 10:18 AM WATER ANALYST Melinda Isaac APRN, C.N.P. LAB BLOOD ADD-ON Final Result [address] [address], [facility] in [address] [address] * (ABNORMAL) CBC with Differential, Blood (07/29/2024 10:15 AM WATER ANALYST) Hemoglobin 10.2(L) 11.6 - 15.0 g/dL 07/29/2024 10:28 AM WATER ANALYST CNFL Hematocrit 33.5(L) 35.5 - 44.9 % 07/29/2024 10:28 AM WATER ANALYST CNFL Erythrocytes 3.82(L) 3.92 - 5.13 x10(12)/L 07/29/2024 10:28 AM WATER ANALYST CNFL MCV 87.7 78.2 - 97.9 fL 07/29/2024 10:28 AM WATER ANALYST CNFL RBC Distrib Width 14.9 12.2 - 16.1 % 07/29/2024 10:28 AM WATER ANALYST CNFL Platelet Count 837(H) 157 - 371 x10(9)/L 07/29/2024 10:28 AM WATER ANALYST CNFL Leukocytes 16.0(H) 3.4 - 9.6 x10(9)/L 07/29/2024 10:28 AM WATER ANALYST CNFL Neutrophils 13.54(H) 1.56 - 6.45 x10(9)/L 07/29/2024 10:28 AM WATER ANALYST CNFL Lymphocytes 1.31 0.95 - 3.07 x10(9)/L 07/29/2024 10:28 AM WATER ANALYST CNFL Monocytes 0.62 0.26 - 0.81 x10(9)/L 07/29/2024 10:28 AM WATER ANALYST CNFL Eosinophils 0.39 0.03 - 0.48 x10(9)/L 07/29/2024 10:28 AM WATER ANALYST CNFL Basophils 0.12(H) 0.01 - 0.08 x10(9)/L 07/29/2024 10:28 AM WATER ANALYST CNFL Blood (Blood, PICC) 07/29/2024 10:15 AM WATER ANALYST 07/29/2024 10:18 AM WATER ANALYST us Melinda Isaac APRN, C.N.P. LAB BLOOD ADD-ON Final Result Performing Organization Address City/State/[facility] Co de Phone Number [facility] [address] [place] [address], [facility] CNFL [place] [address] documented in this encounter Visit Diagnoses Diagnosis [...] infection, community acquired Given 07/29/2024 10:36 AM WATER ANALYST 2 g sodium chloride 0.9 % injection 10-30 mL 10-30 mL, intravenous, As needed, line care, Starting on Mon07/29/24 at 1004, When no infusion to maintain patency. Flush every 7 days to each lumen. 10 mL to each lumenIndications:Empyema Pleural (HCC) Given 07/29/2024 10:41 AM WATER ANALYST 10 mL Given 07/29/2024 10:35 AM WATER ANALYST 10 mL documented in this encounter Additional Health Concerns Assessment Noted Time PHQ-9 Depression Total Score: 22 025 7:19 PM WATER ANALYST documented as of this encounter Care Teams Varnish Maker Helper Relationship Specialty Start Date End Date Prudence Mena MPAS, P.A.-C. [address] [place] [address] [place] [phone] PCP - General Internal Medicine 02/08/24 documented as of this encounter
--- OUTSIDE RECORDS SUMMARY | 2024-08-28 22:00 | XMS_ITS | Encounter Summary ---
Author Organization [facility] Address [address] [place] [address] Care Team Providers Care Software Development Advisor Name Role Phone Prudence Mena P.A.-C. Primary Care Pro vider Reason for Visit * Reason Comments Outpatient Infusion Rocephin Encounter Details Date Type Department Care Team (Late st Contact Info) Description 07/24/2024 9:00 AM PHYSICIAN SCRIBE Infusion Department of Infusion Therapy in [address] [phone] Melinda Isaac, FRED, C.N.P. [address] [place] [phone] Empyema Pleural (HCC) (Primary Dx) Social History [...] How often do you attend samaritan or jew serv ices? Never 07/27/2022 Do you belong [...] Answer Date Recorded PHQ-2 Score 6 07/10/2024 [facility] of Occupat ional Health - Occupational Stress [...] Comments Blood Pressure 131/82 07/24/2024 9:20 AM PHYSICIAN SCRIBE Pulse 110 07/24/2024 9:20 AM PHYSICIAN SCRIBE Temperature 36.6 C (97.9 F) 07/24/2024 9:20 AM PHYSICIAN SCRIBE Respiratory Rate 16 07/24/2024 9:20 AM PHYSICIAN SCRIBE Oxygen Saturation 94% 07/24/2024 9:20 AM PHYSICIAN SCRIBE Inhaled Oxygen Concentration - - Weight - - Height - - Body Mass Index - - documented in this encounter Plan of Treatment Upcoming Encounters Date Type Department Care Team (Late st Contact Info) Description 08/30/2024 9:00 AM PHYSICIAN SCRIBE Office Visit Department of Community Internal Medicine in [place], [place] 300 [facility] [place] [phone] Prudence Mena MPAS, P.A.-C. 300 [place] [phone] documented as of this encounter Visit Diagnoses [...] infection, community acquired Given 07/24/2024 9:33 AM PHYSICIAN SCRIBE 2 g sodium chloride 0.9 % injection 10-30 mL 10-30 mL, intravenous, As needed, line care, Starting on Mon07/24/24 at 0917, Prior to and following infusion, between multiple consecutive infusions.10 mL to each lumen.Indications:Empyema Pleural (HCC) Given 07/24/2024 9:43 AM PHYSICIAN SCRIBE 10 mL Given 07/24/2024 9:30 AM PHYSICIAN SCRIBE 10 mL documented in this encounter Additional Health Concerns Assessment Noted Time PHQ-9 Depression Total Score: 22 025 7:19 PM PHYSICIAN SCRIBE documented as of this encounter Care Teams Software Development Advisor Relationship Specialty Start Date End Date Prudence Mena MPAS, P.A.-C. [address] [facility] [place] [phone] PCP - General Internal Medicine 02/08/24 documented as of this encounter
--- OUTSIDE RECORDS SUMMARY | 2024-08-28 22:00 | XMS_ITS | Encounter Summary ---
Author Organization [facility] Address [address] [place] [address] Care Team Providers Care Production Supervisor Trainee Name Role Phone Prudence Mena P.A.-C. Primary Care Pro vider Reason for Visit * Reason Onset Date Comments Post Hospital Follow-up 07/22/2024 Complete d - DC'd 07/20/24 @ 1016 Encounter Details Date Type Department Care Team (Latest Contact Info) Description 07/22/2024 Clinical Communication Department of Community Internal Medicine in [place] [address] [place] [address] Rosalva Galeano, R.N. Post Hospital Follow-up (Completed - DC'd 07/20/24 @ 1016) Social History Tobacco Use Types Packs/Day Years Used Date Smoking Tobacco: Former Cigarettes 1.5 0.2 S tarted: 06/21/2024 Passive Smoke Exposure: Past Smokeless Tobacco: Never Alcohol Use Standard Drinks/Week Comments Yes 0 (1 standard drink = 0.6 oz pur e alcohol) socially [facility] Utilities Answer Date Recorded In the past [...] How often do you attend restorationist or oriental orthodox serv ices? Never 07/27/2022 [...] PHQ-2 Score 6 07/10/2024 [facility] - Occupational Stress Questionnaire [...] - Venus Khalil - 07/22/2024 1:16 PM PARKING CASHIER Patient has been scheduled for 07/29 ING CASHIER * Telephone Encounter - Rosalva Galeano R.N. - 07/22/2024 12:56 PM PARKING CASHIER SUBJECTIVE REASON FOR CALL Post-Hospital follow-up phone [...] hospital discharge - she flew here from [place]. Patient identified if needing assistance, she could [...] additional f/u by RN. All questions answered. ING CASHIER documented in this encounter Plan of Treatment Upcoming Encounters Date Type Department Care Team (Late st Contact Info) Description 08/30/2024 9:00 AM PARKING CASHIER Office Visit Department of Community Internal Medicine in [place], [place] 300 [place] [address] Prudence Mena MPAS, P.A.-C. 300 [place] [phone] documented as of this encounter Visit Diagnoses Not on filedocumented in this encounter Additional Health Concerns Assessment Noted Time PHQ-9 Depression Total Score: 22 025 7:19 PM PARKING CASHIER documented as of this encounter Care Teams Production Supervisor Trainee Relationship Specialty Start Date End Date Prudence Mena MPAS, P.A.-C. 300 [place] [phone] PCP - General Internal Medicine 02/08/24 documented as of this encounter
--- OUTSIDE RECORDS SUMMARY | 2024-08-28 22:00 | XMS_ITS | Encounter Summary ---
Author Organization [facility] Address [address] [place] [address] Care Team Providers Care Spiritual Advisor Name Role Phone Prudence Mena P.A.-C. Primary Care Pro vider Reason for Visit * Reason Comments Outpatient Infusion Encounter Details Date Type Department Care Team (Late st Contact Info) Description 07/23/2024 9:00 AM KENO ATTENDANT Infusion Department of Infusion Therapy in [address] [phone] Melinda Isaac, FRED, C.N.P. [address] [place] [phone] Empyema Pleural (HCC) (Primary Dx) Social History [...] often do you attend latter day or christian serv ices? Never 07/27/2022 Do [...] Answer Date Recorded PHQ-2 Score 6 07/10/2024 [facility] of Occupat ional Health - Occupational Stress [...] Comments Blood Pressure 120/79 07/23/2024 9:10 AM KENO ATTENDANT Pulse 93 07/23/2024 9:10 AM KENO ATTENDANT Temperature 36.6 C (97.9 F) 07/23/2024 9:10 AM KENO ATTENDANT Respiratory Rate 18 07/23/2024 9:10 AM KENO ATTENDANT Oxygen Saturation 100% 07/23/2024 9:10 AM KENO ATTENDANT Inhaled Oxygen Concentration - - Weight - - Height - - Body Mass Index - - documented in this encounter Plan of Treatment Upcoming Encounters Date Type Department Care Team (Late st Contact Info) Description 08/30/2024 9:00 AM KENO ATTENDANT Office Visit Department of Community Internal Medicine in [place], [place] 300 [place] [address] Prudence Mena MPAS, P.A.-C. 300 [place] [address] documented as of this encounter Visit Diagnoses [...] infection, community acquired Given 07/23/2024 9:15 AM KENO ATTENDANT 2 g sodium chloride 0.9 % injection 10-30 mL 10-30 mL, intravenous, As needed, line care, Starting on Mon07/23/24 at 0858, Prior to and following infusion, between multiple consecutive infusions.10 mL to each lumen.Indications:Empyema Pleural (HCC) Given 07/23/2024 9:19 AM KENO ATTENDANT 10 mL Given 07/23/2024 9:15 AM KENO ATTENDANT 10 mL documented in this encounter Additional Health Concerns Assessment Noted Time PHQ-9 Depression Total Score: 22 025 7:19 PM KENO ATTENDANT documented as of this encounter Care Teams Spiritual Advisor Relationship Specialty Start Date End Date Prudence Mena MPAS, P.A.-C. 300 [place] [address] PCP - General Internal Medicine 02/08/24 documented as of this encounter
--- OUTSIDE RECORDS SUMMARY | 2024-08-28 22:00 | XMS_ITS | Encounter Summary ---
Author Organization [facility] Address [address] [place] [address] Care Team Providers Care Hand Candy Molder Name Role Phone Prudence Mena P.A.-CDmitry Primary Care Pro vider Reason for Referral * MRI/CAT/PET Scan (Routine) - Closed Specialty Diagnoses / Procedures Referred By Chrisac t Referred To Contact Radiology Diagnoses Pneumonia Procedures CT Chest with IV Contrast Prudence Mena MPAS, P.A.-C. 300 [place] [address] Phone: tel: fax: [facility] Region Referral ID Status Reason Start Date Expiration Date Visits Re quested Visits Authorized [id number] Closed 07/12/2024 07/12/2025 1 1 SECTION IRONER Reason for Visit * MRI/CAT/PET Scan (Routine) - Closed Specialty Diagnoses / Procedures Referred By Contac t Referred To Contact Radiology Diagnoses Pneumonia Procedures CT Chest with IV Contrast Prudence Mena MPAS P.A.-CDmitry 300 [place] [address] Phone: tel: fax: [facility] Region Referral ID Status Reason Start Date Expiration Date Visits Re quested Visits Authorized [id number] Closed 07/12/2024 07/12/2025 1 1 Encounter Details Date Type Department Care Team (Latest Contact Info) Description 07/24/2024 9:03 AM HALF SECTION IRONER - 07/24/2024 11:59 PM HALF SECTION IRONER Hospital Encounter Department of Radiology in [address] [place] [address] Prudence Mena MPAS, P.A.-C. 300 [facility] [phone] Pneumonia Discharge Disposition: Home or Self Care Social History Tobacco Use Types Packs/Day Years Used Date Smoking Tobacco: Former Cigarettes 1.5 0.2 S tarted: 06/21/2024 Passive Smoke Exposure: Past Smokeless Tobacco: Never Alcohol Use Standard Drinks/Week Comments Yes 0 (1 standard drink = 0.6 oz pur e alcohol) socially [facility] Utilities Answer Date Recorded In the past 12 months has e [employer], gas, oil, or water [employer] threatened to shut off services in your [...] How often do you attend faith or hinduism serv ices? Never 07/27/2022 Do [...] 07/10/2024 [facility] of Occupat ional [facility] - Occupational Stress Questionnaire Answer Date [...] catheter daily for [address] [facility] 07/19/2024 5 methocarbamoL (Robaxin) 500 mg tablet Take 1 tablet (500 mg total) by mouth 3 (three) times a day as needed for muscle spasms. 45 tablet 07/20/2024 10:13 AM HALF SECTION IRONER 07/19/2024 5 metroNIDAZOLE (FlagyL) 500 mg tabletIndication s:Empyema Take 1 tablet (500 mg total) by mouth 3 (three) times a day for 17 days Indications: Empyema. 51 tablet 07/20/2024 10:13 AM HALF SECTION IRONER 07/19/2024 5 nitrofurantoin (MACRODANTIN) 50 mg capsule [...] Pain Exception. 28 tablet 07/20/2024 10:13 AM HALF SECTION IRONER 07/19/2024 5 sennosides (senna) 8.6 mg tablet Take 2 tablets (17.2 mg total) by mouth daily. 07/20/2024 documented as of this encounter Plan of Treatment Upcoming Encounters Date Type Department Care Team (Late st Contact Info) Description 08/30/2024 9:00 AM HALF SECTION IRONER Office Visit Department of Community Internal Medicine in [place], [place] 300 [facility] [place] [address] Prudence Mena MPAS, PDmitryA.-C. 300 [place] [address] documented as of this encounter Procedures Procedure Name Priority Date/Time Associated Diagnosis Comments CT CHEST WITH IV CONTRAST RAD - Routine (most inpatients and all outpatients) 07/24/2024 10:24 AM HALF SECTION IRONER Pneumonia documented in this encounter Results * CT Chest with IV Contrast (07/24/2024 10:24 AM HALF SECTION IRONER) Anatomical Region Laterality Modality Chest, Thoracic RST LOS, Tho racic ARZ LOS, Thoracic ARZ LOS, Thoracic FLA LOS N/A Computed Tomography 07/24/2024 10:2 2 AM HALF SECTION IRONER Impressions 07/24/2024 11:16 AM HALF SECTION IRONER Pneumonia and small left pleural effusion. Narrative 07/24/2024 11:16 AM HALF SECTION IRONER EXAM: CT CHEST WITH IV CONTRAST COMPARISON: [...] For 1 dose Given 07/24/2024 10:16 AM HALF SECTION IRONER 80 mL sodium chloride 0.9 % flush 80 mL 80 mL, intravenous, Once, On Mon07/24/24 at 0930, For 1 dose Given 07/24/2024 10:19 AM HALF SECTION IRONER 80 mL sodium chloride 0.9 % injection 10 mL 10 mL, intravenous, Once, On Mon07/24/24 at 0930, For 1 dose Given 07/24/2024 10:19 AM HALF SECTION IRONER 10 mL documented in this encounter Additional Health Concerns Assessment Noted Time PHQ-9 Depression Total Score: 22 025 7:19 PM HALF SECTION IRONER documented as of this encounter Care Teams Hand Candy Molder Relationship Specialty Start Date End Date Prudence Mena MPAS, P.A.-C. 300 [facility] [place] [address] PCP - General Internal Medicine 02/08/24 documented as of this encounter
--- OUTSIDE RECORDS SUMMARY | 2024-08-28 22:00 | XMS_ITS | Encounter Summary ---
Author Organization [facility] Address [address] [place] [address] Care Team Providers Care Golf Course Patroller Name Role Phone Trina Prudence TO P.A.-C. Primary Care Pro vider Encounter Details Date Type Department Care Team (Latest Contact Info) Description 07/24/2024 9:03 AM TRAFFIC CIRCUIT ENGINEER - 07/24/2024 11:59 PM [facility] Hospital Encounter Department of Laboratory Medicine in [address] [phone] Melinda Cohen MPAS P.A.-Cherelle., M.S. [address] [place] [phone] Intermediate Antibiotic Treatment Discharge Disposition: Home or Self Care Social History Tobacco Use Types Packs/Day Years Used Date Smoking Tobacco: Former Cigarettes 1.5 0.2 S tarted: 06/21/2024 Passive Smoke Exposure: Past Smokeless Tobacco: Never Alcohol Use Standard Drinks/Week Comments Yes 0 (1 standard drink = 0.6 oz pur e alcohol) socially [facility] Utilities Answer Date Recorded In the past 12 months has [employer], gas, oil, or water [employer] threatened to shut off services in your [...] How often do you attend congregational or latter day serv ices? Never 07/27/2022 [...] Answer Date Recorded PHQ-2 Score 6 07/10/2024 [facility] [place] of Occupat ional Health - Occupational Stress [...] a venous catheter daily for 17 days. [facility] 07/19/2024 methocarbamoL (Robaxin) 500 mg tablet Take 1 tablet (500 mg total) by mouth 3 (three) times a day as needed for muscle spasms. 45 tablet 07/20/2024 10:13 AM TRAFFIC CIRCUIT ENGINEER 07/19/2024 5 metroNIDAZOLE (FlagyL) 500 mg tabletIndication s:Empyema Take 1 tablet (500 mg total) by mouth 3 (three) times a day for 17 days Indications: Empyema. 51 tablet 07/20/2024 10:13 AM TRAFFIC CIRCUIT ENGINEER 07/19/2024 5 nitrofurantoin (MACRODANTIN) 50 mg capsule [...] Pain Exception. 28 tablet 07/20/2024 10:13 AM TRAFFIC CIRCUIT ENGINEER 07/19/2024 5 sennosides (senna) 8.6 mg tablet Take 2 tablets (17.2 mg total) by mouth daily. 07/20/2024 5 documented as of this encounter Plan of Treatment Upcoming Encounters Date Type Department Care Team (Late st Contact Info) Description 08/30/2024 9:00 AM TRAFFIC CIRCUIT ENGINEER Office Visit Department of Community Internal Medicine in [place], [place] 300 [place] [phone] Prudence Mena MPAS, P.A.-C. 300 [place] [address] documented as of this encounter Procedures Procedure Name Priority Date/Time Associated Diagnosis Comments CBC WITH DIFFERENTIAL, B Routine 025 10:02 AM TRAFFIC CIRCUIT ENGINEER Intermediate Antibiotic Treatment ALANINE AMINOTRANSFERASE (ALT), S/P Routine 07/24/2024 10:02 AM TRAFFIC CIRCUIT ENGINEER Intermediate Antibiotic Treatment ALKALINE PHOSPHATASE, S/P Routine 07/24/2024 10:02 AM TRAFFIC CIRCUIT ENGINEER Intermediate Antibiotic Treatment CREATININE WITH EGFR, S/P Routine 07/24/2024 10:02 AM TRAFFIC CIRCUIT ENGINEER Intermediate Antibiotic Treatment documented in this encounter Results * Alkaline Phosphatase (07/24/2024 10:02 AM TRAFFIC CIRCUIT ENGINEER) Alkaline Phosphatase, P 86 35 - 104 U/L 07/24/2024 10:24 AM TRAFFIC CIRCUIT ENGINEER CNFL Blood (Blood, PICC) 07/24/2024 10:02 AM TRAFFIC CIRCUIT ENGINEER 07/24/2024 10:07 AM TRAFFIC CIRCUIT ENGINEER us Marimar Gutierrez.Paul.-Cherelle., M.S. LAB BLOOD [place] [address], [place] [address] * ALT (Alanine Aminotransferase) (07/24/2024 10:02 AM TRAFFIC CIRCUIT ENGINEER) Alanine Aminotransferase (ALT), P 21 7 - 45 U/L 07/24/2024 10:24 AM TRAFFIC CIRCUIT ENGINEER CNFL Blood (Blood, PICC) 07/24/2024 10:02 AM TRAFFIC CIRCUIT ENGINEER 07/24/2024 10:07 AM TRAFFIC CIRCUIT ENGINEER us Melinda TO, P.A.-C., M.S. LAB BLOOD [place] [address], [place] [address] * Creatinine with Estimated GFR (07/24/2024 10:02 AM TRAFFIC CIRCUIT ENGINEER) Creatinine 0.60 0.59 - 1.04 mg/dL 07/24/2024 10:24 AM TRAFFIC CIRCUIT ENGINEER CNFL Estimated GFR (eGFR) >90 >=60 mL/min/BSA 07/24/2024 10:24 AM TRAFFIC CIRCUIT ENGINEER FL Comment: Estimated GFR calculated using the 2020 CKD_EPI creatinine equation. Blood (Blood, PICC) 07/24/2024 10:02 AM TRAFFIC CIRCUIT ENGINEER 07/24/2024 10:07 AM TRAFFIC CIRCUIT ENGINEER us Melinda TO, P.A.-C., M.S. LAB BLOOD ADD-ON Final Result [facility] [address] [place] [address], [facility] CNFL [facility] [place] [address] * (ABNORMAL) CBC with Differential, Blood (07/24/2024 10:02 AM TRAFFIC CIRCUIT ENGINEER) Hemoglobin 9.4(L) 11.6 - 15.0 g/dL 07/24/2024 10:11 AM TRAFFIC CIRCUIT ENGINEER CNFL Hematocrit 30.2(L) 35.5 - 44.9 % 07/24/2024 10:11 AM TRAFFIC CIRCUIT ENGINEER CNFL Erythrocytes 3.40(L) 3.92 - 5.13 x10(12)/L 07/24/2024 10:11 AM TRAFFIC CIRCUIT ENGINEER CNFL MCV 88.8 78.2 - 97.9 fL 07/24/2024 10:11 AM TRAFFIC CIRCUIT ENGINEER CNFL RBC Distrib Width 15.5 12.2 - 16.1 % 07/24/2024 10:11 AM TRAFFIC CIRCUIT ENGINEER CNFL Platelet Count 641(H) 157 - 371 x10(9)/L 07/24/2024 10:11 AM TRAFFIC CIRCUIT ENGINEER CNFL Leukocytes 12.0(H) 3.4 - 9.6 x10(9)/L 07/24/2024 10:11 AM TRAFFIC CIRCUIT ENGINEER CNFL Neutrophils 8.69(H) 1.56 - 6.45 x10(9)/L 07/24/2024 10:11 AM TRAFFIC CIRCUIT ENGINEER CNFL Lymphocytes 1.73 0.95 - 3.07 x10(9)/L 07/24/2024 10:11 AM TRAFFIC CIRCUIT ENGINEER CNFL Monocytes 0.99(H) 0.26 - 0.81 x10(9)/L 07/24/2024 10:11 AM TRAFFIC CIRCUIT ENGINEER CNFL Eosinophils 0.55(H) 0.03 - 0.48 x10(9)/L 07/24/2024 10:11 AM TRAFFIC CIRCUIT ENGINEER CNFL Basophils 0.06 0.01 - 0.08 x10(9)/L 07/24/2024 10:11 AM TRAFFIC CIRCUIT ENGINEER CNFL Blood (Blood, PICC) 07/24/2024 10:02 AM TRAFFIC CIRCUIT ENGINEER 07/24/2024 10:07 AM TRAFFIC CIRCUIT ENGINEER us Melinda TO, P.A.-C., M.S. LAB BLOOD ADD-ON Final Result Performing Organization Address [facility] Co de Phone Number [facility] [address] [place] [address], [facility] CNFL [facility] in [address] [address] documented in this encounter Visit Diagnoses Diagnosis Intermediate Antibiotic Treatment documented in this encounter Additional Health Concerns Assessment Noted Time PHQ-9 Depression Total Score: 025 7:19 PM TRAFFIC CIRCUIT ENGINEER documented as of this encounter Care Teams Golf Course Patroller Relationship Specialty Start Date End Date Prudence Mena MPAS, P.A.-C. [address] [place] [address] [place] [phone] PCP - General Internal Medicine 02/08/24 documented as of this encounter
--- OUTSIDE RECORDS SUMMARY | 2024-08-28 22:00 | XMS_ITS | Encounter Summary ---
Author Organization [facility] Address [address] [place] [address] Care Team Providers Care Wood Mechanist Name Role Phone Prudence Mena P.A.-Demarcus Primary Care Pro vider Encounter Details Date Type Department Care Team (Late st Contact Info) Description 07/11/2024 Clinical Communication Department of Community Internal Medicine in [place], [place] 300 [place] [address] Prudence Mena MPAS P.A.-C. 300 [place] [phone] Social History Tobacco Use Types Packs/Day Years Used Date Smoking Tobacco: Former Cigarettes 1.5 0.2 S tarted: 06/21/2024 Passive Smoke Exposure: Past Smokeless Tobacco: Never Alcohol Use Standard Drinks/Week Comments Yes 0 (1 standard drink = 0.6 oz pur e alcohol) [facility] Utilities Answer Date Recorded In the past 12 months has e [facility] gas, oil, or water [employer] threatened to shut off services in your [...] How often do you attend taoist or presybeterian serv ices? Never 07/27/2022 Do you belong [...] Answer Date Recorded PHQ-2 Score 6 07/10/2024 [facility] of Occupat ional Health - Occupational Stress [...] partner or ex-partner? No 07/15/2024 8:00 PM METAL REFINER Helena Brady, R.N. Within the last year, have y ou been afraid of your partner or ex-partner? No 07/15/2024 8:00 PM Helena Resendiz, R.N. Within the last year, have y ou been raped or forced to have any kind of sexual activity by your partner or ex-partner? No 07/15/2024 8:00 PM METAL REFINER Helena Brady R.N. Within the last year, have y ou been kicked, hit, slapped, or otherwise physically hurt by your partner or ex-partner? No 07/15/2024 8:00 PM METAL REFINER Helena Brady R.N. documented as of this encounter Miscellaneous Notes * Telephone Encounter - Es Evans L.P.N. - 07/11/2024 3:33 PM METAL REFINER Called and notified patient of: Please call [...] CT scan and follow up with Prudence. L REFINER documented in this encounter Plan of Treatment Upcoming Encounters Date Type Department Care Team (Late st Contact Info) Description 08/30/2024 9:00 AM METAL REFINER Office Visit Department of Community Internal Medicine in [place], [place] [address] [place] [address] Prudence Mena MPAS, P.A.-C. 300 [place] [address] documented as of this encounter Visit Diagnoses Not on filedocumented in this encounter Additional Health Concerns Assessment Noted Time PHQ-9 Depression Total Score: 22 025 7:19 PM METAL REFINER documented as of this encounter Care Teams Wood Mechanist Relationship Specialty Start Date End Date Prudence Mena MPAS, P.A.-C. 300 [facility] [place] [phone] PCP - General Internal Medicine 02/08/24 documented as of this encounter
--- OUTSIDE RECORDS SUMMARY | 2024-08-28 22:00 | XMS_ITS | CCD ---
Author Name Interface, [id number] lity Address [address] [place] [address] [facility] Address [address] [address] Care Team Providers Care Web Mobile Designer Name Role Phone Karen Daley Unavailable Allergies [...]
--- OUTSIDE RECORDS SUMMARY | 2024-08-28 22:00 | XMS_ITS | Encounter Summary ---
Author Organization [facility] Address [address] [place] [address] Care Team Providers Care Entry Level Chemist Name Role Phone Prudence Mena P.A.-CDmitry Primary Care Pro vider Encounter Details Date Type Department Care Team (Late st Contact Info) Description 07/24/2024 Results Follow-Up Department of Community Internal Medicine in [place], [place] 300 [place] [address] Prudence Mena MPAS, P.A.-C. 300 [place] [phone] CT Chest with IV Contrast Social History Tobacco Use Types Packs/Day Years Used Date Smoking Tobacco: Former Cigarettes 1.5 0.2 S tarted: 06/21/2024 Passive Smoke Exposure: Past Smokeless Tobacco: Never Alcohol Use Standard Drinks/Week Comments Yes 0 (1 standard drink = 0.6 oz pur e alcohol) socially [facility] Utilities Answer Date Recorded In the past 12 months has [employer], gas, oil, or water [employer] threatened to shut off services in your [...] How often do you attend jain or spiritism serv ices? Never 07/27/2022 Do [...] st Contact Info) Description 08/30/2024 9:00 AM DELIVERER MERCHANDISE Office Visit Department of Community Internal Medicine in [place], [place] 300 [facility] [place] [address] Prudence Mena MPAS, P.A.-C. 300 [place] [address] documented as of this encounter Visit Diagnoses Not on filedocumented in this encounter Additional Health Concerns Assessment Noted Time PHQ-9 Depression Total Score: 22 025 7:19 PM DELIVERER MERCHANDISE documented as of this encounter Care Teams Entry Level Chemist Relationship Specialty Start Date End Date Prudence Mena MPAS, P.A.-C. [address] [place] [address] [place] [address] PCP - General Internal Medicine 02/08/24 documented as of this encounter
--- OUTSIDE RECORDS SUMMARY | 2024-08-28 22:00 | XMS_ITS | Encounter Summary ---
Author Organization [facility] Address [address] [place] [address] Care Team Providers Care Pediatric Speech Language Pathologist Name Role Phone Prudence Mena P.A.-C. Primary Care Pro vider Reason for Visit * Reason Onset Date Comments Reschedule 07/23/2024 Encounter Details Date Type Department Care Team (Late st Contact Info) Description 07/23/2024 Clinical Communication Department of Infusion Therapy in [place], [place] [address] [place] [phone] Tita Bell R.N. [address] [place] [phone] Reschedule Social History Tobacco Use Types Packs/Day Years Used Date Smoking Tobacco: Former Cigarettes 1.5 0.2 S tarted: 06/21/2024 Passive Smoke Exposure: Past Smokeless Tobacco: Never Alcohol Use Standard Drinks/Week Comments Yes 0 (1 standard drink = 0.6 oz pur e alcohol) socially [facility] Utilities Answer Date Recorded In the past 12 months has [facility] [employer], gas, oil, or water [employer] threatened to shut off services in your [...] How often do you attend protestant or yazidism serv ices? Never 07/27/2022 Do [...] Date Recorded PHQ-2 Score 6 07/10/2024 [facility] [place] of Occupat ional Health - Occupational Stress [...] st Contact Info) Description 08/30/2024 9:00 AM GRAB DRIVER Office Visit Department of Community Internal Medicine in [place], [place] 300 [facility] [place] [address] Prudence Mena MPAS, P.A.-C. 300 [place] [address] documented as of this encounter Visit Diagnoses Not on filedocumented in this encounter Additional Health Concerns Assessment Noted Time PHQ-9 Depression Total Score: 22 025 7:19 PM GRAB DRIVER documented as of this encounter Care Teams Pediatric Speech Language Pathologist Relationship Specialty Start Date End Date Prudence Mena MPAS, P.A.-C. [address] [place] [address] [place] [phone] PCP - General Internal Medicine 02/08/24 documented as of this encounter
--- OUTSIDE RECORDS SUMMARY | 2024-08-28 22:00 | XMS_ITS | Encounter Summary ---
Author Organization [facility] Address [address] [place] [address] Care Team Providers Care Regional Maintenance Manager Name Role Phone Prudence Mena P.A.-C. Primary Care Pro vider Encounter Details Date Type Department Care Team (Late st Contact Info) Description 07/26/2024 9:00 AM TWISTER DOFFER Infusion Department of Infusion Therapy in [address] [phone] Melinda Isaac, FRED, C.N.P. [address] [place] [phone] Empyema Pleural (HCC) (Primary Dx) Social History Tobacco Use Types Packs/Day Years Used Date Smoking Tobacco: Former Cigarettes 1.5 0.2 S tarted: 06/21/2024 Passive Smoke Exposure: Past Smokeless Tobacco: Never Alcohol Use Standard Drinks/Week Comments Yes 0 (1 standard drink = 0.6 oz pur e alcohol) socially [facility] Utilities Answer Date Recorded In the past 12 months has e electric, gas, oil, or water [employer] threatened to shut off services in your [...] How often do you attend amish or presybeterian serv ices? Never 07/27/2022 Do [...] Answer Date Recorded PHQ-2 Score 6 07/10/2024 [facility] - Occupational Stress Questionnaire [...] Comments Blood Pressure 130/76 07/26/2024 9:00 AM TWISTER DOFFER Pulse 106 07/26/2024 9:00 AM TWISTER DOFFER Temperature 35.9 C (96.6 F) 07/26/2024 9:00 AM TWISTER DOFFER Respiratory Rate 18 07/26/2024 9:00 AM TWISTER DOFFER Oxygen Saturation 96% 07/26/2024 9:00 AM TWISTER DOFFER Inhaled Oxygen Concentration - - Weight - [...] they are in agreement with this plan. TER DOFFER documented in this encounter Plan of Treatment Upcoming Encounters Date Type Department Care Team (Late st Contact Info) Description 08/30/2024 9:00 AM TWISTER DOFFER Office Visit Department of Community Internal Medicine in [place], [place] 300 [place] [address] Prudence Mena MPAS, P.A.-C. 300 [place] [address] documented as of this encounter Visit Diagnoses [...] infection, community acquired Given 07/26/2024 8:56 AM TWISTER DOFFER 2 g sodium chloride 0.9 % injection 10-30 mL 10-30 mL, intravenous, As needed, line care, Starting on Mon07/26/24 at 0844, Prior to and following infusion, between multiple consecutive infusions.10 mL to each lumen.Indications:Empyema Pleural (HCC) Given 07/26/2024 9:00 AM TWISTER DOFFER 10 mL Given 07/26/2024 8:56 AM TWISTER DOFFER 10 mL documented in this encounter Additional Health Concerns Assessment Noted Time PHQ-9 Depression Total Score: 22 025 7:19 PM TWISTER DOFFER documented as of this encounter Care Teams Regional Maintenance Manager Relationship Specialty Start Date End Date Prudence Mena MPAS, P.A.-C. 300 [facility] [place] [phone] PCP - General Internal Medicine 02/08/24 documented as of this encounter
--- OUTSIDE RECORDS SUMMARY | 2024-08-28 22:00 | XMS_ITS | Encounter Summary ---
Author Organization [facility] Address [address] [place] [address] Care Team Providers Care Repairer Auto Clocks Name Role Phone Prudence Mena P.A.-C. Primary Care Pro vider Reason for Visit * Reason Comments Outpatient Infusion Dressing Change Encounter Details Date Type Department Care Team (Late st Contact Info) Description 07/25/2024 9:00 AM WAREHOUSE ORDER SELECTOR Infusion Department of Infusion Therapy in [address] [phone] Melinda Isaac, FRED, C.N.P. [address] [place] [phone] Empyema Pleural (HCC) (Primary Dx) Social History [...] How often do you attend tenriism or pentecostalism serv ices? Never 07/27/2022 Do [...] Answer Date Recorded PHQ-2 Score 6 07/10/2024 [facility] of Occupat ional Health - Occupational Stress [...] Comments Blood Pressure 139/95 07/25/2024 9:05 AM WAREHOUSE ORDER SELECTOR Pulse 103 07/25/2024 9:05 AM WAREHOUSE ORDER SELECTOR Temperature 36.6 C (97.9 F) 07/25/2024 9:05 AM WAREHOUSE ORDER SELECTOR Respiratory Rate 18 07/25/2024 9:05 AM WAREHOUSE ORDER SELECTOR Oxygen Saturation 100% 07/25/2024 9:05 AM WAREHOUSE ORDER SELECTOR Inhaled Oxygen Concentration - - Weight - - Height - - Body Mass Index - - documented in this encounter Plan of Treatment Upcoming Encounters Date Type Department Care Team (Late st Contact Info) Description 08/30/2024 9:00 AM WAREHOUSE ORDER SELECTOR Office Visit Department of Community Internal Medicine in [place], [place] 300 [facility] [place] [address] Prudence Mena MPAS, P.A.-C. 300 [place] [phone] documented as of this encounter Visit Diagnoses [...] infection, community acquired Given 07/25/2024 9:08 AM WAREHOUSE ORDER SELECTOR 2 g sodium chloride 0.9 % injection 10-30 mL 10-30 mL, intravenous, As needed, line care, Starting on Gloria 07/25/24 at 0857, Prior to and following infusion, between multiple consecutive infusions.10 mL to each lumen.Indications:Empyema Pleural (HCC) Given 07/25/2024 9:13 AM WAREHOUSE ORDER SELECTOR 10 mL Given 07/25/2024 9:08 AM WAREHOUSE ORDER SELECTOR 10 mL documented in this encounter Additional Health Concerns Assessment Noted Time PHQ-9 Depression Total Score: 22 025 7:19 PM WAREHOUSE ORDER SELECTOR documented as of this encounter Care Teams Repairer Auto Clocks Relationship Specialty Start Date End Date Prudence Mena MPAS, P.A.-C. 300 [place] [address] PCP - General Internal Medicine 02/08/24 documented as of this encounter
--- OUTSIDE RECORDS SUMMARY | 2024-08-28 22:00 | XMS_ITS | Encounter Summary ---
Author Organization [facility] Address [address] [place] [address] Care Team Providers Care Qc Chemist Name Role Phone Prudence Mena P.A.-C. Primary Care Pro vider Encounter Details Date Type Department Care Team (Late st Contact Info) Description 07/25/2024 Orders Only Division of Thoracic Surgery in [place], [place] [address] [place] [phone] Eveline Mariscal, PDmitryADmitry-CDmitry [address] [place] [address] Social History Tobacco Use Types Packs/Day Years Used Date Smoking Tobacco: Former Cigarettes 1.5 0.2 S tarted: 06/21/2024 Passive Smoke Exposure: Past Smokeless Tobacco: Never Alcohol Use Standard Drinks/Week Comments Yes 0 (1 standard drink = 0.6 oz pur e alcohol) socially [facility] Utilities Answer Date Recorded In the past 12 months has [employer], gas, oil, or water [employer] threatened to shut off services in your [...] How often do you attend voodoo or episcopalian serv ices? Never 07/27/2022 Do [...] Answer Date Recorded PHQ-2 Score 6 07/10/2024 [facility] of Occupat ional Health [...] st Contact Info) Description 08/30/2024 9:00 AM CONTAINER SHOP WELDER Office Visit Department of Community Internal Medicine in [place], [place] 300 [facility] [phone] Prudence Mena MPAS, P.A.-C. 300 [place] [phone] documented as of this encounter Visit Diagnoses Not on filedocumented in this encounter Additional Health Concerns Assessment Noted Time PHQ-9 Depression Total Score: 22 025 7:19 PM CONTAINER SHOP WELDER documented as of this encounter Care Teams Qc Chemist Relationship Specialty Start Date End Date Prudence Mena MPAS, P.A.-C. [address] [place] [phone] PCP - General Internal Medicine 02/08/24 documented as of this encounter
--- OUTSIDE RECORDS SUMMARY | 2024-08-28 22:01 | XMS_ITS | Encounter Summary ---
Author Organization [facility] Address [address] [place] [address] Care Team Providers Care Breading Machine Tender Name Role Phone Prudence Mena P.A.-C. Primary Care Pro vider Encounter Details Date Type Department Care Team (Late st Contact Info) Description 07/19/2024 Clinical Communication Division of Thoracic Surgery in [place], [place] [address] [place] [phone] Melinda Isaac, FRED, C.N.P. [address] [place] [phone] Social History Tobacco Use Types Packs/Day Years Used Date Smoking Tobacco: Former Cigarettes 1.5 0.2 S tarted: 06/21/2024 Passive Smoke Exposure: Past Smokeless Tobacco: Never Alcohol Use Standard Drinks/Week Comments Yes 0 (1 standard drink = 0.6 oz pur e alcohol) socially [facility] Utilities Answer Date Recorded In the past 12 months has [employer], gas, oil, or water [employer] threatened to shut off services in your [...] How often do you attend voodoo or quaker serv ices? Never 07/27/2022 Do [...] Recorded PHQ-2 Score 6 07/10/2024 [facility] of Occupat ional Health - Occupational [...] st Contact Info) Description 08/30/2024 9:00 AM PLASTICS PLATER Office Visit Department of Community Internal Medicine in [place], [place] 300 [facility] [place] [phone] Prudence Mena MPAS, P.A.-C. 300 [facility] [place] [phone] documented as of this encounter Visit Diagnoses Not on filedocumented in this encounter Additional Health Concerns Assessment Noted Time PHQ-9 Depression Total Score: 22 025 7:19 PM PLASTICS PLATER documented as of this encounter Care Teams Breading Machine Tender Relationship Specialty Start Date End Date Prudence Mena MPAS, P.A.-C. [address] [place], [place] [address], [place] [phone] PCP - General Internal Medicine 02/08/24 documented as of this encounter
--- OUTSIDE RECORDS SUMMARY | 2024-08-28 22:01 | XMS_ITS | Encounter Summary ---
Author Organization [facility] Address [address] [place] [address] Care Team Providers Care Vendor Analyst Name Role Phone Prudence Mena P.A.-C. Primary Care Pro vider Reason for Visit * Reason Comments Outpatient Infusion Encounter Details Date Type Department Care Team (Late st Contact Info) Description 07/21/2024 9:00 AM TRUCKER Infusion Department of Infusion Therapy in [address] [phone] Melinda Isaac, FRED, C.N.P. [address] [place] [phone] Empyema Pleural (HCC) (Primary Dx); Pneumonia Social History Tobacco Use Types Packs/Day Years Used Date Smoking Tobacco: Former Cigarettes 1.5 0.2 S tarted: 06/21/2024 Passive Smoke Exposure: Past Smokeless Tobacco: Never Alcohol Use Standard Drinks/Week Comments Yes 0 (1 standard drink = 0.6 oz pur e alcohol) socially [facility] Utilities Answer Date Recorded In the past [...] How often do you attend cheondoism or taoism serv ices? Never 07/27/2022 Do [...] Answer Date Recorded PHQ-2 Score 6 07/10/2024 [facility] [place] of Occupat ional Health - Occupational Stress [...] Comments Blood Pressure 137/89 07/21/2024 9:19 AM TRUCKER Pulse 103 07/21/2024 9:19 AM TRUCKER Temperature 36 C (96.8 F) 07/21/2024 9:19 AM TRUCKER Respiratory Rate 18 07/21/2024 9:19 AM TRUCKER Oxygen Saturation 95% 07/21/2024 9:19 AM TRUCKER Inhaled Oxygen Concentration - - Weight - - Height - - Body Mass Index - - documented in this encounter Plan of Treatment Upcoming Encounters Date Type Department Care Team (Late st Contact Info) Description 08/30/2024 9:00 AM TRUCKER Office Visit Department of Community Internal Medicine in [place], [place] 300 [place] [phone] Prudence Mena MPAS, P.A.-C. 300 [place] [phone] documented as of this encounter Procedures Procedure Name Priority Date/Time Associated Diagnosis Comments CBC WITH DIFFERENTIAL, B Routine 07/21/2024 9:24 AM TRUCKER Pneumonia BASIC METABOLIC PANEL, S/P Routine 07/21/2024 9:24 AM TRUCKER Pneumonia documented in this encounter Results * (ABNORMAL) Basic Metabolic Panel (07/21/2024 9:24 AM TRUCKER) Potassium, P 3.1(L) 3.6 - 5.2 mmol/L 07/21/2024 9:55 AM TRUCKER RDWG Sodium, P 143 135 - 145 mmol/L 07/21/2024 9:55 AM TRUCKER RDWG Chloride, P 102 98 - 107 mmol/L 07/21/2024 9:55 AM TRUCKER RDWG Bicarbonate, P 30(H) 22 - 29 mmol/L 07/21/2024 9:55 AM TRUCKER RDWG Anion Gap, P 11 7 - 15 07/21/2024 9:55 AM TRUCKER RDWG BUN (Blood Urea Nitrogen), P 8 6 - 21 mg/dL 07/21/2024 9:55 AM TRUCKER RDWG Creatinine 0.69 0.59 - 1.04 mg/dL 07/21/2024 9:55 AM TRUCKER RDWG Estimated GFR (eGFR) >90 >=60 mL/min/BSA 07/21/2024 9:55 AM TRUCKER RDWG Comment: Estimated GFR calculated using the 2020 CKD_EPI creatinine equation. Calcium, Total, P 8.7 8.6 - 10.0 mg/dL 07/21/2024 9:55 AM TRUCKER RDWG Glucose, P 97 70 - 140 mg/dL 07/21/2024 9:55 AM TRUCKER RDWG Blood (Blood, Venous) 07/21/2024 9:24 AM TRUCKER 07/21/2024 9:32 AM TRUCKER Prudence TO, P.A.-C. LAB BLOOD ADD-ON Final Result [facility] [address] [facility] [place] [address], [facility] RDWG [facility] [place] 701 [place] [phone] * (ABNORMAL) CBC with Differential, Blood (07/21/2024 9:24 AM TRUCKER) Hemoglobin 8.6(L) 11.6 - 15.0 g/dL 07/21/2024 9:34 AM TRUCKER RDWG Hematocrit 27.0(L) 35.5 - 44.9 % 07/21/2024 9:34 AM TRUCKER RDWG Erythrocytes 3.00(L) 3.92 - 5.13 x10(12)/L 07/21/2024 9:34 AM TRUCKER RDWG MCV 90.0 78.2 - 97.9 fL 07/21/2024 9:34 AM TRUCKER RDWG RBC Distrib Width 15.5 12.2 - 16.1 % 07/21/2024 9:34 AM TRUCKER RDWG Platelet Count 515(H) 157 - 371 x10(9)/L 07/21/2024 9:34 AM TRUCKER RDWG Leukocytes 7.9 3.4 - 9.6 x10(9)/L 07/21/2024 9:34 AM TRUCKER RDWG Neutrophils 5.44 1.56 - 6.45 x10(9)/L 07/21/2024 9:34 AM TRUCKER RDWG Lymphocytes 1.31 0.95 - 3.07 x10(9)/L 07/21/2024 9:34 AM TRUCKER RDWG Monocytes 0.65 0.26 - 0.81 x10(9)/L 07/21/2024 9:34 AM TRUCKER RDWG Eosinophils 0.45 0.03 - 0.48 x10(9)/L 07/21/2024 9:34 AM TRUCKER RDWG Basophils <0.03 0.01 - 0.08 x10(9)/L 07/21/2024 9:34 AM TRUCKER RDWG Blood (Blood, Venous) 07/21/2024 9:24 AM TRUCKER 07/21/2024 9:32 AM TRUCKER us Prudence TO, P.A.-C. LAB BLOOD ADD-ON Final Result [facility] 701 [place] [address], [facility] RDWG [facility] [place] 701 [place] [phone] documented in this encounter Visit Diagnoses Diagnosis [...] infection, community acquired Given 07/21/2024 9:28 AM TRUCKER 2 g sodium chloride 0.9 % injection 10-30 mL 10-30 mL, intravenous, As needed, line care, Starting on 07/21/24 at 0903, Prior to and following infusion, between multiple consecutive infusions.10 mL to each lumen.Indications:Empyema Pleural (HCC) Given 07/21/2024 9:32 AM TRUCKER 10 mL Given 07/21/2024 9:00 AM TRUCKER 30 mL documented in this encounter Additional Health Concerns Assessment Noted Time PHQ-9 Depression Total Score: 22 025 7:19 PM TRUCKER documented as of this encounter Care Teams Vendor Analyst Relationship Specialty Start Date End Date Prudence Mena MPAS, P.A.-C. [address] [place] [address] [place] [phone] PCP - General Internal Medicine 02/08/24 documented as of this encounter
--- OUTSIDE RECORDS SUMMARY | 2024-08-28 22:01 | XMS_ITS | Encounter Summary ---
Author Organization [facility] Address [address] [place] [address] Care Team Providers Care Client Development Consultant Name Role Phone Prudence Mena P.A.-C. Primary Care Pro vider Reason for Visit * Reason Comments Outpatient Infusion Rocephin * Outpatient (Routine) - Closed Specialty Diagnoses / Procedures Referred By Contac t Referred To Contact Diagnoses Empyema Pleural (HCC) Procedures Perform central ground crew linesman: Site care, Flush port(s) Melinda Isaac APRN, C.N.P. [address] [place] [phone] Phone: tel: fax: [facility] Referral ID Status Reason Start Date Expiration Date Visits Re quested Visits Authorized [id number] Closed 07/19/2024 07/19/2025 1 1 Encounter Details Date Type Department Care Team (Late st Contact Info) Description 07/22/2024 9:00 AM CISCO NETWORK ENGINEER Infusion Department of Infusion Therapy in [address] [phone] Melinda Isaac APRN, C.N.P. [address] [place] [phone] Empyema Pleural (HCC) (Primary Dx) Social History Tobacco Use Types Packs/Day Years Used Date Smoking Tobacco: Former Cigarettes 1.5 0.2 S tarted: 06/21/2024 Passive Smoke Exposure: Past Smokeless Tobacco: Never Alcohol Use Standard Drinks/Week Comments Yes 0 (1 standard drink = 0.6 oz pur e alcohol) socially [facility] Utilities Answer Date Recorded In [...] How often do you attend yazidi or synagogue serv ices? Never 07/27/2022 Do [...] 6 07/10/2024 [facility] - Occupational Stress Questionnaire Answer Date [...] Comments Blood Pressure 125/82 07/22/2024 9:12 AM CISCO NETWORK ENGINEER Pulse 102 07/22/2024 9:12 AM CISCO NETWORK ENGINEER Temperature 36.2 C (97.2 F) 07/22/2024 9:12 AM CISCO NETWORK ENGINEER Respiratory Rate 20 07/22/2024 9:12 AM CISCO NETWORK ENGINEER Oxygen Saturation 96% 07/22/2024 9:12 AM CISCO NETWORK ENGINEER Inhaled Oxygen Concentration - - Weight - [...] mother stated feeling good about this plan. O NETWORK ENGINEER documented in this encounter Plan of Treatment Upcoming Encounters Date Type Department Care Team (Late st Contact Info) Description 08/30/2024 9:00 AM CISCO NETWORK ENGINEER Office Visit Department of Community Internal Medicine in [place], [place] 300 [place] [phone] Prudence Mena MPAS, P.A.-C. 300 [place] [phone] documented as of this encounter Visit Diagnoses [...] infection, community acquired Given 07/22/2024 9:20 AM CISCO NETWORK ENGINEER 2 g sodium chloride 0.9 % injection 10-30 mL 10-30 mL, intravenous, As needed, line care, Starting on Mon07/22/24 at 0905, Prior to and following infusion, between multiple consecutive infusions.10 mL to each lumen.Indications:Empyema Pleural (HCC) Given 07/22/2024 9:24 AM CISCO NETWORK ENGINEER 10 mL Given 07/22/2024 9:19 AM CISCO NETWORK ENGINEER 10 mL documented in this encounter Additional Health Concerns Assessment Noted Time PHQ-9 Depression Total Score: 22 025 7:19 PM CISCO NETWORK ENGINEER documented as of this encounter Care Teams Client Development Consultant Relationship Specialty Start Date End Date Prudence Mena MPAS, P.A.-C. 300 [place] [phone] PCP - General Internal Medicine 02/08/24 documented as of this encounter
--- OUTSIDE RECORDS SUMMARY | 2024-08-28 22:01 | XMS_ITS | Encounter Summary ---
Author Organization [facility] Address [address] [place] [address] Care Team Providers Care Data Operations Director Name Role Phone Prudence Mena P.A.-CDmitry Primary Care Pro vider Encounter Details Date Type Department Care Team (Late st Contact Info) Description 07/22/2024 Results Follow-Up Department of Community Internal Medicine in [place], [place] 300 [place] [phone] Prudence Mena MPAS P.A.-C. 300 [place] [phone] CBC with Differential, Blood, Basic [...] In the past 12 months has [facility], gas, oil, or water [employer] threatened to shut off services in your [...] How often do you attend zoroastrian or yazidi serv ices? Never 07/27/2022 Do you belong [...] st Contact Info) Description 08/30/2024 9:00 AM UTILITY SPRAY OPERATOR Office Visit Department of Community Internal Medicine in [place], [place] 300 [place] [address] Prudence Mena MPAS, P.A.-C. 300 [place] [phone] documented as of this encounter Visit Diagnoses Not on filedocumented in this encounter Additional Health Concerns Assessment Noted Time PHQ-9 Depression Total Score: 22 025 7:19 PM UTILITY SPRAY OPERATOR documented as of this encounter Care Teams Data Operations Director Relationship Specialty Start Date End Date Prudence Mena MPAS, P.A.-C. [address] [place] [address] [place] [phone] PCP - General Internal Medicine 02/08/24 documented as of this encounter
--- OUTSIDE RECORDS SUMMARY | 2024-08-28 22:01 | XMS_ITS | Encounter Summary ---
Author Organization [facility] Address [address] [place] [phone] Care Team Providers Care Early Childhood Education Specialist Name Role Phone Trina Prudence Ori TO Primary Care Pro vider Reason for Referral * Outpatient (Routine) - Closed Specialty Diagnoses / Procedures Referred By Contac t Referred To Contact Diagnoses Aircraft Time Clerk Antibiotic Treatment Procedures Perform central online program coordinator: Site care Melinda Cohen MPAS, P.A.-C., M.S. [address] [place] [phone] Phone: tel: fax: [facility] Region Referral ID Status Reason Start Date Expiration Date Visits Re quested Visits Authorized [id number] Closed 07/22/2024 10/22/2025 1 1 R SHAPER Reason for Visit * Reason Comments Care Coordination Encounter Details Date Type Department Care Team (Late st Contact Info) Description 07/22/2024 Patient Outreach Section of Infectious Diseases in [place], [place] [address] [place] [phone] Sneha Barrett Care Coordination Social History Tobacco Use Types Packs/Day Years Used Date Smoking Tobacco: Former Cigarettes 1.5 0.2 S tarted: 06/21/2024 Passive Smoke Exposure: Past Smokeless Tobacco: Never Alcohol Use Standard Drinks/Week Comments Yes 0 (1 standard drink = 0.6 oz pur e alcohol) socially [facility] Utilities Answer Date Recorded In the past 12 months has th e [facility], [employer], oil, or water [employer] threatened to shut off services in your [...] How often do you attend buddhist or adventist serv ices? Never 07/27/2022 Do [...] Answer Date Recorded PHQ-2 Score 6 07/10/2024 [facility] - Occupational Stress Questionnaire Answer Date [...] contact information for non-urgent antimicrobial related questions. R SHAPER documented in this encounter Nursing Notes * Johanny Contreras R.N. - 07/24/2024 12:49 PM CST OPAT NOTE - LAB REVIEW Name Phone Number OPAT Infusion/Labs: [facility]: [facility] (M-F) OPAT Infusion/Labs: [facility]: [place] (Sat/Sun) Problem: Outpatient Antimicrobial Therapy Monitoring Description: [...] for the Division of Infectious Diseases - [id number] R SHAPER documented in this encounter Plan of Treatment Upcoming Encounters Date Type Department Care Team (Late st Contact Info) Description 08/30/2024 9:00 AM UPPER SHAPER Office Visit Department of Community Internal Medicine in [place], [place] [address] [place] [phone] Prudence Mena MPAS, P.A.-C. [address] [place] [phone] Scheduled Orders Name Type Priority Associated Diagnoses Orde r Schedule Perform central online program coordinator: Site care Procedures Routine Senior Care Antibiotic Treatment Expected: 07/29/2024, Expires: 10/20/2025 documented as of this encounter Results * (ABNORMAL) Alkaline Phosphatase (08/04/2024 9:11 AM UPPER SHAPER) Alkaline Phosphatase, P 106(H) 35 - 104 U/L 08/04/2024 9:42 AM UPPER SHAPER RDWG Blood (Blood, PICC) 08/04/2024 9:11 AM UPPER SHAPER 08/04/2024 9:21 AM UPPER SHAPER us Melinda TO, P.A.-C., M.S. LAB BLOOD ADD-ON Final Result [facility] [address] [place] [address], [facility] RDWG [facility] in [place] [address] [place] [phone] * ALT (Alanine Aminotransferase) (08/04/2024 9:11 AM UPPER SHAPER) Alanine Aminotransferase (ALT), P 10 7 - 45 U/L 08/04/2024 9:42 AM UPPER SHAPER RDWG Blood (Blood, PICC) 08/04/2024 9:11 AM UPPER SHAPER 08/04/2024 9:21 AM UPPER SHAPER us Melinda TO, P.A.-C., M.S. LAB BLOOD ADD-ON Final Result [facility] [address] [facility] [place] [address], [facility] RDWG [facility] in [place] [address] [place] [address], [place] [phone] * (ABNORMAL) Creatinine with Estimated GFR (08/04/2024 9:11 AM UPPER SHAPER) Creatinine 0.44(L) 0.59 - 1.04 mg/dL 08/04/2024 9:42 AM UPPER SHAPER RDWG Estimated GFR (eGFR) >90 >=60 mL/min/BSA 08/04/2024 9:42 AM UPPER SHAPER RDWG Comment: Estimated GFR calculated using the 2020 CKD_EPI creatinine equation. Blood (Blood, PICC) 08/04/2024 9:11 AM UPPER SHAPER 08/04/2024 9:21 AM UPPER SHAPER us Melinda TO, P.A.-C., M.S. LAB BLOOD ADD-ON Final Result [facility] [address] [facility] [place] [address], [place] RDWG [facility] in [place] [address] [place] [address] * (ABNORMAL) CBC with Differential, Blood (08/04/2024 9:11 AM UPPER SHAPER) Hemoglobin 10.8(L) 11.6 - 15.0 g/dL 08/04/2024 9:24 AM UPPER SHAPER RDWG Hematocrit 35.3(L) 35.5 - 44.9 % 08/04/2024 9:24 AM UPPER SHAPER RDWG Erythrocytes 4.14 3.92 - 5.13 x10(12)/L 08/04/2024 9:24 AM UPPER SHAPER RDWG MCV 85.3 78.2 - 97.9 fL 08/04/2024 9:24 AM UPPER SHAPER RDWG RBC Distrib Width 15.4 12.2 - 16.1 % 08/04/2024 9:24 AM UPPER SHAPER RDWG Platelet Count 795(H) 157 - 371 x10(9)/L 08/04/2024 9:24 AM UPPER SHAPER RDWG Leukocytes 16.2(H) 3.4 - 9.6 x10(9)/L 08/04/2024 9:24 AM UPPER SHAPER RDWG Neutrophils 13.51(H) 1.56 - 6.45 x10(9)/L 08/04/2024 9:24 AM UPPER SHAPER RDWG Lymphocytes 1.65 0.95 - 3.07 x10(9)/L 08/04/2024 9:24 AM UPPER SHAPER RDWG Monocytes 0.65 0.26 - 0.81 x10(9)/L 08/04/2024 9:24 AM UPPER SHAPER RDWG Eosinophils 0.28 0.03 - 0.48 x10(9)/L 08/04/2024 9:24 AM UPPER SHAPER RDWG Basophils 0.08 0.01 - 0.08 x10(9)/L 08/04/2024 9:24 AM UPPER SHAPER RDWG Blood (Blood, PICC) 08/04/2024 9:11 AM UPPER SHAPER 08/04/2024 9:21 AM UPPER SHAPER us Melinda TO, P.A.-C., M.S. LAB BLOOD ADD-ON Final Result [facility] [address] [place] [address], [facility] RDWG [facility] [place] [address] [place] [address] * Alkaline Phosphatase (07/24/2024 10:02 AM UPPER SHAPER) Alkaline Phosphatase, P 86 35 - 104 U/L 07/24/2024 10:24 AM UPPER SHAPER CNFL Blood (Blood, PICC) 07/24/2024 10:02 AM UPPER SHAPER 07/24/2024 10:07 AM UPPER SHAPER us Melinda TO, P.A.-C., M.S. LAB BLOOD ADD-ON Final Result [address] [address], [address] [address] * ALT (Alanine Aminotransferase) (07/24/2024 10:02 AM UPPER SHAPER) Alanine Aminotransferase (ALT), P 21 7 - 45 U/L 07/24/2024 10:24 AM UPPER SHAPER CNFL Blood (Blood, PICC) 07/24/2024 10:02 AM UPPER SHAPER 07/24/2024 10:07 AM UPPER SHAPER us Melinda TO, P.A.-C., M.S. LAB BLOOD ADD-ON Final Result [address] [address], [address] [address] * Creatinine with Estimated GFR (07/24/2024 10:02 AM UPPER SHAPER) Creatinine 0.60 0.59 - 1.04 mg/dL 07/24/2024 10:24 AM UPPER SHAPER CNFL Estimated GFR (eGFR) >90 >=60 mL/min/BSA 07/24/2024 10:24 AM UPPER SHAPER CNFL Comment: Estimated GFR calculated using the 2020 CKD_EPI creatinine equation. Blood (Blood, PICC) 07/24/2024 10:02 AM UPPER SHAPER 07/24/2024 10:07 AM UPPER SHAPER us Melinda TO, P.A.-C., M.S. LAB BLOOD ADD-ON Final Result [facility] [address] [place] [address], [facility] CNFL [facility] [place] [address] * (ABNORMAL) CBC with Differential, Blood (07/24/2024 10:02 AM UPPER SHAPER) Hemoglobin 9.4(L) 11.6 - 15.0 g/dL 07/24/2024 10:11 AM UPPER SHAPER CNFL Hematocrit 30.2(L) 35.5 - 44.9 % 07/24/2024 10:11 AM UPPER SHAPER CNFL Erythrocytes 3.40(L) 3.92 - 5.13 x10(12)/L 07/24/2024 10:11 AM UPPER SHAPER CNFL MCV 88.8 78.2 - 97.9 fL 07/24/2024 10:11 AM UPPER SHAPER CNFL RBC Distrib Width 15.5 12.2 - 16.1 % 07/24/2024 10:11 AM UPPER SHAPER CNFL Platelet Count 641(H) 157 - 371 x10(9)/L 07/24/2024 10:11 AM UPPER SHAPER CNFL Leukocytes 12.0(H) 3.4 - 9.6 x10(9)/L 07/24/2024 10:11 AM UPPER SHAPER CNFL Neutrophils 8.69(H) 1.56 - 6.45 x10(9)/L 07/24/2024 10:11 AM UPPER SHAPER CNFL Lymphocytes 1.73 0.95 - 3.07 x10(9)/L 07/24/2024 10:11 AM UPPER SHAPER CNFL Monocytes 0.99(H) 0.26 - 0.81 x10(9)/L 07/24/2024 10:11 AM UPPER SHAPER CNFL Eosinophils 0.55(H) 0.03 - 0.48 x10(9)/L 07/24/2024 10:11 AM UPPER SHAPER CNFL Basophils 0.06 0.01 - 0.08 x10(9)/L 07/24/2024 10:11 AM UPPER SHAPER CNFL Blood (Blood, PICC) 07/24/2024 10:02 AM UPPER SHAPER 07/24/2024 10:07 AM UPPER SHAPER us Melinda TO, P.A.-C., M.S. LAB BLOOD ADD-ON Final Result [facility] [address] [place] [address], [facility] CNFL [facility] in [address] [address] documented in this encounter Visit Diagnoses Diagnosis Aircraft Time Clerk Antibiotic Treatment- Primary documented in this encounter Additional Health Concerns Assessment Noted Time PHQ-9 Depression Total Score: 22 025 7:19 PM UPPER SHAPER documented as of this encounter Care Teams Early Childhood Education Specialist Relationship Specialty Start Date End Date Prudence Mena MPAS, P.A.-C. [address] [place] [address] [place] [phone] PCP - General Internal Medicine 02/08/24 documented as of this encounter
--- OUTSIDE RECORDS SUMMARY | 2024-08-28 22:01 | XMS_ITS | Clinical Summary ---
Author Organization [facility] Address [address] [place] [address] Care Team Providers Care Territory Service Representative Name Role Phone Prudence Mena P.A.-C. Primary Care Pro vider Source Comments Patient records contain information from all sites at [facility]. For routine questions regarding patient records, call [phone] during business hours, M-F 8:00 AM - 5:00 PM Central Time. Record requests for emergency care only can be directed to [phone] at any time.[facility] Allergies Active Allergy Reactions Criticality Noted Date [...] spasms. 45 tablet 07/20/19 25 10:13 AM PRODUCT MARKETING ANALYST 025 2024 Discontinued(R eorder) metroNIDAZOLE (FlagyL) 500 mg tabletIndications :Empyema Take 1 tablet (500 mg total) by mouth 3 (three) times a day for 17 days Indications: Empyema. 51 tablet 07/20/19 10:13 AM PRODUCT MARKETING ANALYST 025 2024 Discontinued(T herapy completed) sennosides (senna) 8.6 mg tablet Take 2 tablets (17.2 mg total) by mouth daily. 025 2024 Discontinued cefTRIAXone in dextrose, iso osm, (Rocephin) 2 gram/50 mL IVBPIndications:E mpyema Pleural (HCC) Infuse 50 mL (2 g total) into a venous catheter daily for 17 days. [facility] 025 2024 Discontinued(T herapy completed) ondansetron (Zofran) [...] for Sleep Medicine consult October 2023 in [place]. I have reordered her a consult as [...] 12/03/2021 Overview (09/03/2023): Follows with Psychiatry in [place]. Attends therapy in [place]. Attention Deficit With Hyperactivity Disorder Overview (09/03/2023): Follows with Psychiatry in [place]. Attends therapy in [place]. Major Depressive Disorder, Recurrent, Unspecifie d 12/03/2021 Overview (09/03/2023): Follows with Psychiatry in [place]. Attends therapy in [place]. Headache Unspecified 07/03/2019 Fracture Fifth Metacarpal Ba [...] Clinical Communication Division of Thoracic Surgery in [place], [place] [address] [place] [address] Patrick Mtz M.D., Ph.D. Post-op Problem 08/27/2024 11:30 AM PRODUCT MARKETING ANALYST Office Visit Division of Thoracic Surgery in [place], [place] [address] [place] [address] Lola Lambert APRN, C.N.P., M.S.N. Follow Up Examination Postoperative Visit (Primary Dx); Empyema Pleural (HCC) 08/27/2024 10:09 AM PRODUCT MARKETING ANALYST - 08/27/2024 11:59 PM PRODUCT MARKETING ANALYST Hospital Encounter Department of Radiology, [facility], in [place], [place] [address] [place] [address] Melinda Isaac APRN C.N.P. Empyema Pleural (HCC) Discharge Disposition: Home or Self Care 08/23/2024 Refill Department of Community Internal Medicine in [address] [phone] Prudence Mena MPAS, P.A.-C. Med Refill 08/21/2024 8:34 AM PRODUCT MARKETING ANALYST - 08/21/2024 11:59 PM PRODUCT MARKETING ANALYST Hospital Encounter Department of Laboratory Medicine in [address] [phone] Prudence Mena MPAS, P.A.-C. Anemia Discharge Disposition: Home or Self Care 08/21/2024 8:00 AM PRODUCT MARKETING ANALYST Office Visit Department of Community Internal Medicine in [address] [phone] Prudence Mena MPAS, P.A.-C. Empyema Pleural (HCC) (Primary Dx); Candidiasis Intertrigo; Anemia; Stool Positive Occult Blood 08/21/2024 Results Follow-Up Department of Community Internal Medicine in [address] [phone] Prudence Mena MPAS, P.A.-C. CBC with Differential, Blood 08/16/2024 Refill Department of Community Internal Medicine in [address] [phone] Prudence Mena MPAS, P.A.-C. Med Refill 08/14/2024 Results Follow-Up Department of Family Medicine, [facility], in [address] [phone] Carmine Carrasco P.A.-C. Bacterial Culture, Aerobic + Susceptibility 08/12/2024 8:20 AM PRODUCT MARKETING ANALYST Ancillary Procedure Department of Family Medicine 08/12/2024 8:00 AM PRODUCT MARKETING ANALYST Office Visit Department of Community Internal Medicine in [address] [phone] Prudence Mena MPAS, P.A.-C. Empyema Pleural (HCC) (Primary Dx); Candidiasis Intertrigo 08/09/2024 Refill Department of Community Internal Medicine in [address] [place] [address] Prudence Mena MPAS, P.A.-C. Med Refill 08/06/2024 Clinical Communication Department of Community Internal Medicine in [address] [place] [address] Prudence Mena MPAS P.A.-C. New Med Request 08/06/2024 Orders Only Department of Community Internal Medicine in [address] [phone] Prudence eMna MPAS P.A.-C. 08/06/2024 Patient Outreach Section of Infectious Diseases in [place], [place] [address] [place] [phone] Karla Stein R.N. OPAT (Monitoring Complete) 08/05/2024 12:30 PM PRODUCT MARKETING ANALYST Infusion Department of Infusion Therapy in [place], [place] [address] [place] [phone] Shanel Starr P.A.-C. Director Airport Antibiotic Treatment 08/05/2024 11:00 AM PRODUCT MARKETING ANALYST Office Visit Section of Infectious Diseases in [place], [place] [address] [place] [phone] Kayleigh Small M.D. Vergidis, Paschalis, M.D. Empyema Pleural (HCC) 08/05/2024 8:20 AM PRODUCT MARKETING ANALYST - 08/05/2024 11:59 PM PRODUCT MARKETING ANALYST Hospital Encounter Department of Radiology, [facility], in [place], [place] [address] [place] [address] Kayleigh Small M.D. Empyema Pleural (HCC) Discharge Disposition: Home or Self Care 08/05/2024 Refill Department of Community Internal Medicine in [place] [address] [place] [address] Prudence Mena MPAS, P.A.-C. Med Refill 08/04/2024 9:00 AM PRODUCT MARKETING ANALYST Infusion Department of Infusion Therapy in [address] [phone] Melinda Isaac APRN, C.N.P. Empyema Pleural (HCC) (Primary Dx); Half-Way Antibiotic Treatment 08/03/2024 9:00 AM PRODUCT MARKETING ANALYST Infusion Department of Infusion Therapy in [address] [phone] Melinda Isaac APRN, C.N.P. Empyema Pleural (HCC) (Primary Dx) 08/02/2024 9:00 AM PRODUCT MARKETING ANALYST Infusion Department of Infusion Therapy in [address] [phone] Melinda Isaac APRN, C.N.P. Empyema Pleural (HCC) (Primary Dx) 08/01/2024 7:00 AM PRODUCT MARKETING ANALYST Infusion Department of Infusion Therapy in [address] [phone] Melinda Isaac APRN, C.N.P. Empyema Pleural (HCC) (Primary Dx); Half-Way Antibiotic Treatment 08/01/2024 Refill Department of Community Internal Medicine in [place], [place] [address] [place] [address] Prudence Mena MPAS, P.A.-C. Med Refill 07/31/2024 8:00 AM PRODUCT MARKETING ANALYST Infusion Department of Infusion Therapy in [address] [phone] Melinda Isaac APRN CDmitryN.P. Empyema Pleural (HCC) (Primary Dx) 07/30/2024 9:00 AM PRODUCT MARKETING ANALYST Infusion Department of Infusion Therapy in [address] [phone] Melinda Isaac APRN C.N.P. Empyema Pleural (HCC) (Primary Dx) 07/29/2024 2:20 PM PRODUCT MARKETING ANALYST Office Visit Department of Community Internal Medicine in [address] [phone] Prudence Mena MPAS, P.A.-C. Stool Positive Occult Blood (Primary Dx); Empyema Pleural (HCC); Nausea; Major Depressive Disorder, Recurrent, Unspecified (HCC); Asthma (HCC) 07/29/2024 10:00 AM PRODUCT MARKETING ANALYST Infusion Department of Infusion Therapy in [address] [phone] Melinda Isaac APRN, C.N.P. Empyema Pleural (HCC) (Primary Dx) 07/29/2024 Patient Outreach Section of Infectious Diseases in [place], [place] [address] [place] [phone] Lashell Greene R.N. OPAT 07/29/2024 Clinical Communication Department of Oncology in [place], [place] [address] [place] [address] Denae Headley R.N. Results 07/28/2024 9:00 AM PRODUCT MARKETING ANALYST Infusion Department of Infusion Therapy in [address] [phone] Melinda Isaac APRN, C.N.P. Empyema Pleural (HCC) (Primary Dx) 07/27/2024 9:00 AM PRODUCT MARKETING ANALYST Infusion Department of Infusion Therapy in [place], [place] [address] [place] [phone] Melinda Isaac APRN, C.N.P. Empyema Pleural (HCC) (Primary Dx) 07/26/2024 9:14 AM PRODUCT MARKETING ANALYST - 07/26/2024 2:06 PM PRODUCT MARKETING ANALYST Emergency [facility] [address] [place] [phone] Dilcia Valero APRN, C.N.P. Pain Chest Wall (Primary Dx) Discharge Disposition: Home or Self Care 07/26/2024 9:00 AM PRODUCT MARKETING ANALYST Infusion Department of Infusion Therapy in [address] [phone] Melinda Isaac APRN, C.N.P. Empyema Pleural (HCC) (Primary Dx) 07/26/2024 Results Follow-Up [facility] [address] [place] [address] Lindsay Mejias R.N. Sedimentation Rate 07/25/2024 9:00 AM PRODUCT MARKETING ANALYST Infusion Department of Infusion Therapy in [address] [phone] Melinda Isaac APRN, C.N.P. Empyema Pleural (HCC) (Primary Dx) 07/25/2024 Orders Only Division of Thoracic Surgery in [place], [place] [address] [place] [address] Eveline Mariscal, PDmitryA.-Cherelle. 07/24/2024 9:03 AM PRODUCT MARKETING ANALYST - 07/24/2024 11:59 PM PRODUCT MARKETING ANALYST Hospital Encounter Department of Radiology in [address] [phone] DeaPrudence fernandez MPAS, P.A.-C. Pneumonia Discharge Disposition: Home or Self Care 07/24/2024 9:03 AM PRODUCT MARKETING ANALYST - 07/24/2024 11:59 PM PRODUCT MARKETING ANALYST Hospital Encounter Department of Laboratory Medicine in [address] [phone] Melinda Cohen MPAS P.A.-C., M.S. Half-Way Antibiotic Treatment Discharge Disposition: Home or Self Care 07/24/2024 9:00 AM PRODUCT MARKETING ANALYST Infusion Department of Infusion Therapy in [address] [phone] Melinda Isaac APRN, C.N.P. Empyema Pleural (HCC) (Primary Dx) 07/24/2024 Results Follow-Up Department of Community Internal Medicine in [address] [phone] Prudence Mena MPAS, P.A.-C. CT Chest with IV Contrast 07/23/2024 9:00 AM PRODUCT MARKETING ANALYST Infusion Department of Infusion Therapy in [address] [phone] Melinda Isaac APRN, C.N.P. Empyema Pleural (HCC) (Primary Dx) 07/23/2024 Clinical Communication Department of Infusion Therapy in [address] [phone] Tita Bell R.N. Reschedule 07/22/2024 9:00 AM PRODUCT MARKETING ANALYST Infusion Department of Infusion Therapy in [address] [phone] Melinda Isaac APRN, C.N.P. Empyema Pleural (HCC) (Primary Dx) 07/22/2024 Clinical Communication Department of Community Internal Medicine in [address] [phone] Rosalva Galeano R.N. Post Hospital Follow-up (Completed - DC'd 07/20/24 @ 1016) 07/22/2024 Patient Outreach Section of Infectious Diseases in [place], [place] [address] [place] [address] Sneha Barrett Care Coordination 07/22/2024 Results Follow-Up Department of Community Internal Medicine in [place], [place] [address] [place] [phone] Prudence Mena MPAS, P.A.-C. CBC with Differential, Blood, Basic Metabolic Panel 07/21/2024 9:00 AM PRODUCT MARKETING ANALYST Infusion Department of Infusion Therapy in [place], [place] [address] [place] [phone] Melinda Isaac APRN, C.N.P. Empyema Pleural (HCC) (Primary Dx); Pneumonia 07/19/2024 Clinical Communication Division of Thoracic Surgery in [place], [place] [address] [place] [address] Melinda Isaac APRN, C.N.P. 07/18/2024 Clinical Communication [facility] [address] [place] [phone] Kayleigh Small M.D. Post Hospital Follow-up 07/15/2024 1:10 PM PRODUCT MARKETING ANALYST - 07/15/2024 4:33 PM PRODUCT MARKETING ANALYST Surgery [facility] [address] [place] [phone] Patrick Mtz M.D., Ph.D. ROBOTIC THORACOSCOPY, DECORTICATION, PLEURODESIS, PROCEED INDICATED. 07/15/2024 12:57 PM PRODUCT MARKETING ANALYST Anesthesia Event [facility] [address] [place] [phone] Lanre Hayward M.D. Aroldo Johnson, R.N. 07/13/2024 7:53 PM PRODUCT MARKETING ANALYST - 07/20/2024 10:16 AM PRODUCT MARKETING ANALYST Hospital Encounter [facility], Tenth Floor [address] [place] [phone] Patrick Mtz M.D., Ph.D. Empyema Pleural (HCC) (Primary Dx) Discharge Disposition: Home or Self Care 07/13/2024 Intake [facility] 07/11/2024 11:17 AM PRODUCT MARKETING ANALYST - 07/11/2024 11:59 PM PRODUCT MARKETING ANALYST Hospital Encounter Department of Radiology in [address] [phone] Prudence Mena MPAS, P.A.-C. Pneumonia Discharge Disposition: Home or Self Care 07/11/2024 11:08 AM PRODUCT MARKETING ANALYST - 07/11/2024 11:16 AM PRODUCT MARKETING ANALYST Hospital Encounter Department of Laboratory Medicine in [address] [phone] Prudence Mena MPAS, P.A.-C. Pneumonia Discharge Disposition: Home or Self Care 07/11/2024 11:07 AM PRODUCT MARKETING ANALYST Hospital Encounter Department of Laboratory Medicine in [address] [phone] Prudence Mena MPAS, P.A.-C. Blood In Stool Discharge Disposition: Home or Self Care 07/11/2024 10:40 AM PRODUCT MARKETING ANALYST Office Visit Department of Community Internal Medicine in [address] [phone] Prudence Mena MPAS, P.A.-C. Hypokalemia (Primary Dx); Pneumonia; Effusion Pleural; Blood In Stool 07/11/2024 Clinical Communication Department of Community Internal Medicine in [address] [address] Prudence Mena MPAS, P.A.-C. 07/11/2024 Orders Only Department of Community Internal Medicine in [address] [phone] Prudence Mena MPAS, P.A.-C. Pneumonia (Primary Dx) 06/11/2024 3:30 PM PRODUCT MARKETING ANALYST Office Visit Department of Family Medicine, [facility], in [place], [place] [address] [place] [address] Kaley Jones APRN, C.N.P., Bari.N.P. Infection Upper Respiratory (Primary Dx) 06/11/2024 Nurse Triage Department of Community Internal Medicine in [place], [place] [address] [place] [address] Eduardo Ding RDmitryN. Cough from Last 3 [...] How often do you attend anabaptist or latter-day serv ices? Never 07/27/2022 Do [...] Score 6 07/10/2024 [facility] - Occupational Stress Questionnaire Answer [...] Comments Blood Pressure 105/74 08/21/2024 8:02 AM PRODUCT MARKETING ANALYST Pulse 108 08/21/2024 8:02 AM PRODUCT MARKETING ANALYST Temperature 36.1 C (97 F) 08/21/2024 8:02 AM PRODUCT MARKETING ANALYST Respiratory Rate 16 08/12/2024 8:01 AM PRODUCT MARKETING ANALYST Oxygen Saturation 98% 08/21/2024 8:02 AM PRODUCT MARKETING ANALYST Inhaled Oxygen Concentration - - Weight 88 kg (194 lb 0.1 oz) 08/21/2024 8:02 AM PRODUCT MARKETING ANALYST Height 165 cm (5' 4.96) 08/21/2024 8:02 AM PRODUCT MARKETING ANALYST Body Mass Index 32.32 08/21/2024 8:02 AM PRODUCT MARKETING ANALYST Plan of Treatment Upcoming Encounters Date Type Department Care Team (Late st Contact Info) Description 08/30/2024 9:00 AM PRODUCT MARKETING ANALYST Office Visit Department of Community Internal Medicine in [place], [place] [address] [place] [phone] Prudence Mena, YOUSUF, P.A.-C. [address] [place] [phone] Health Maintenance Due Date Last Done Comments [...] inpatients and all outpatients) 08/27/2024 10:18 AM PRODUCT MARKETING ANALYST Empyema Pleural (HCC) CBC WITH DIFFERENTIAL, B Routine 08/21/2024 8:46 AM PRODUCT MARKETING ANALYST Anemia BACTERIAL CULTURE, AEROBIC + SUSC Routine 08/12/2024 8:35 AM PRODUCT MARKETING ANALYST Empyema Pleural (HCC) FAMILY MEDICINE IMAGE EXAM Routine 08/12/2024 8:19 AM PRODUCT MARKETING ANALYST DX CHEST AP OR PA AND LATERAL 2 VIEWS RAD - Routine (most inpatients and all outpatients) 08/05/2024 8:24 AM PRODUCT MARKETING ANALYST Empyema Pleural (HCC) ALKALINE PHOSPHATASE, S/P Routine 08/04/2024 9:11 AM PRODUCT MARKETING ANALYST Half-Way Antibiotic Treatment ALANINE AMINOTRANSFERASE (ALT), S/P Routine 08/04/2024 9:11 AM PRODUCT MARKETING ANALYST Half-Way Antibiotic Treatment CREATININE WITH EGFR, S/P Routine 08/04/2024 9:11 AM PRODUCT MARKETING ANALYST Half-Way Antibiotic Treatment CBC WITH DIFFERENTIAL, B Routine 08/04/2024 9:11 AM PRODUCT MARKETING ANALYST Half-Way Antibiotic Treatment CBC WITH DIFFERENTIAL, B Routine 08/01/2024 7:19 AM PRODUCT MARKETING ANALYST Empyema Pleural (HCC) Half-Way Antibiotic Treatment CREATININE WITH EGFR, S/P Routine 07/29/2024 10:15 AM PRODUCT MARKETING ANALYST Empyema Pleural (HCC) ALKALINE PHOSPHATASE, S/P Routine 07/29/2024 10:15 AM PRODUCT MARKETING ANALYST Empyema Pleural (HCC) ALANINE AMINOTRANSFERASE (ALT), S/P Routine 07/29/2024 10:15 AM PRODUCT MARKETING ANALYST Empyema Pleural (HCC) CBC WITH DIFFERENTIAL, B Routine 07/29/2024 10:15 AM PRODUCT MARKETING ANALYST Empyema Pleural (HCC) CT CHEST ANGIOGRAM AND PULMONARY ARTERIES WITH IV CONTRAST RAD - Semiurgent (Fast; most ED patients; some inpatients) 07/26/2024 10:37 AM PRODUCT MARKETING ANALYST DX CHEST AP OR PA AND LATERAL 2 VIEWS RAD - Semiurgent (Fast; most ED patients; some inpatients) 07/26/2024 9:54 AM PRODUCT MARKETING ANALYST BASIC METABOLIC PANEL, S/P STAT 07/26/2024 9:44 AM PRODUCT MARKETING ANALYST SEDIMENTATION RATE, B STAT 07/26/2024 9:44 AM PRODUCT MARKETING ANALYST C-REACTIVE PROTEIN (CRP), S/P STAT 07/26/2024 9:44 AM PRODUCT MARKETING ANALYST CBC WITH DIFFERENTIAL, B STAT 07/26/2024 9:44 AM [address] MARKETING A[address]LYST CT CHEST WITH IV CONTRAST RAD - Routine (most inpatients and all outpatients) 07/24/2024 10:24 AM PRODUCT MARKETING ANALYST Pneumonia ALKALINE PHOSPHATASE, S/P Routine 07/24/2024 10:02 AM PRODUCT MARKETING ANALYST Half-Way Antibiotic Treatment ALANINE AMINOTRANSFERASE (ALT), S/P Routine 07/24/2024 10:02 AM PRODUCT MARKETING ANALYST Half-Way Antibiotic Treatment CREATININE WITH EGFR, S/P Routine 07/24/2024 10:02 AM PRODUCT MARKETING ANALYST Director Airport Antibiotic Treatment CBC WITH DIFFERENTIAL, B Routine 07/24/2024 10:02 AM PRODUCT MARKETING ANALYST Director Airport Antibiotic Treatment BASIC METABOLIC PANEL, S/P Routine 07/21/2024 9:24 AM PRODUCT MARKETING ANALYST Pneumonia CBC WITH DIFFERENTIAL, B Routine 07/21/2024 9:24 AM PRODUCT MARKETING ANALYST Pneumonia DX CHEST AP OR PA AND LATERAL 2 VIEWS RAD - Routine (most inpatients and all outpatients) 07/19/2024 1:04 PM PRODUCT MARKETING ANALYST NOCTURNAL OXYGEN STUDY - RT Routine 07/19/2024 12:24 PM PRODUCT MARKETING ANALYST DX CHEST AP OR PA AND LATERAL 2 VIEWS RAD - Routine (most inpatients and all outpatients) 07/19/2024 9:10 AM PRODUCT MARKETING ANALYST ADULT OXYGEN THERAPY Routine 07/19/2024 8:01 AM PRODUCT MARKETING ANALYST BASIC METABOLIC PANEL, S/P Routine 07/19/2024 6:02 AM PRODUCT MARKETING ANALYST CBC WITHOUT DIFFERENTIAL, B Routine 07/19/2024 6:[address] PERIPHERALLY INSERTED CENTRAL CATHETER (PICC) Routine 07/18/2024 8:43 PM PRODUCT MARKETING ANALYST ADULT OXYGEN THERAPY Routine 07/18/2024 8:01 PM PRODUCT MARKETING ANALYST DX CHEST AP OR PA AND LATERAL 2 VIEWS RAD - Routine (most inpatients and all outpatients) 07/18/2024 10:15 AM PRODUCT MARKETING ANALYST ADULT OXYGEN THERAPY Routine 07/18/2024 8:00 AM PRODUCT MARKETING ANALYST ADULT OXYGEN THERAPY Routine 07/17/2024 8:01 PM PRODUCT MARKETING ANALYST HIV-1/-2 AG AND AB SCREEN, PLASMA Routine 07/17/2024 5:05 PM PRODUCT MARKETING ANALYST ADULT OXYGEN THERAPY Routine 07/17/2024 8:01 AM PRODUCT MARKETING ANALYST ADULT OXYGEN THERAPY Routine 07/16/2024 8:01 PM PRODUCT MARKETING ANALYST RESPIRATORY ASSESS AND TREAT Routine 07/16/2024 2:00 PM PRODUCT MARKETING ANALYST VANCOMYCIN, TROUGH, S Timed 07/16/2024 10:31 AM PRODUCT MARKETING ANALYST ADULT OXYGEN THERAPY Routine 07/16/2024 8:01 AM PRODUCT MARKETING ANALYST ADULT OXYGEN THERAPY Routine 07/15/2024 8:01 PM PRODUCT MARKETING ANALYST ADULT OXYGEN THERAPY Routine 07/15/2024 6:49 PM PRODUCT MARKETING ANALYST ADULT OXYGEN THERAPY Routine 07/15/2024 6:49 PM PRODUCT MARKETING ANALYST ADULT OXYGEN THERAPY Routine 07/15/2024 6:49 PM PRODUCT MARKETING ANALYST DX CHEST 1 VIEW RAD - Routine (most inpatients and all outpatients) 07/15/2024 4:51 PM PRODUCT MARKETING ANALYST BACTERIAL CULTURE, AEROBIC + SUSC Routine 07/15/2024 4:00 PM PRODUCT MARKETING ANALYST Empyema Pleural (HCC) ACTINOMYCES CULTURE Routine 07/15/2024 4 :00 PM PRODUCT MARKETING ANALYST Empyema Pleural (HCC) MYCOBACTERIAL CULTURE, V Routine 07/15/2024 4:00 PM PRODUCT MARKETING ANALYST Empyema Pleural (HCC) FUNGAL SMEAR Routine 07/15/2024 4:00 PM PRODUCT MARKETING ANALYST Empyema Pleural (HCC) LEGIONELLA CULTURE Routine 07/15/2024 4: 00 PM PRODUCT MARKETING ANALYST Empyema Pleural (HCC) ACID FAST SMEAR FOR MYCOBACTERIUM Routine 07/15/2024 4:00 PM PRODUCT MARKETING ANALYST Empyema Pleural (HCC) GRAM STAIN Routine 07/15/2024 4:00 PM PRODUCT MARKETING ANALYST Empyema Pleural (HCC) FUNGAL CULTURE, ROUTINE Routine 07/15/2024 4:00 PM PRODUCT MARKETING ANALYST Empyema Pleural (HCC) BACTERIAL CULTURE, ANAEROBIC + SUSC Routine 07/15/2024 4:00 PM PRODUCT MARKETING ANALYST Empyema Pleural (HCC) BACTERIAL CULTURE, AEROBIC + SUSC Routine 07/15/2024 2:24 PM PRODUCT MARKETING ANALYST Empyema Pleural (HCC) MYCOBACTERIAL CULTURE, V Routine 07/15/2024 2:24 PM PRODUCT MARKETING ANALYST Empyema Pleural (HCC) FUNGAL SMEAR Routine 07/15/2024 2:24 PM PRODUCT MARKETING ANALYST Empyema Pleural (HCC) ACID FAST SMEAR FOR MYCOBACTERIUM Routine 07/15/2024 2:24 PM PRODUCT MARKETING ANALYST Empyema Pleural (HCC) GRAM STAIN Routine 07/15/2024 2:24 PM PRODUCT MARKETING ANALYST Empyema Pleural (HCC) FUNGAL CULTURE, ROUTINE Routine 07/15/2024 2:24 PM PRODUCT MARKETING ANALYST Empyema Pleural (HCC) LDA ANE ARTERIAL LINE INSERTION Routine 07/15/2024 1:31 PM PRODUCT MARKETING ANALYST SD ARTL CATH/CNULA MONITOR PERC Routine 07/15/2024 1:31 PM PRODUCT MARKETING ANALYST LDA ANE ENDOTRACHEAL AIRWAY Routine 07/15/2024 1:17 PM PRODUCT MARKETING ANALYST THORACOSCOPY - DECORTICATION 07/15/2024 12:32 PM PRODUCT MARKETING ANALYST Empyema Pleural (HCC) TYPE AND SCREEN STAT 07/15/2024 7:50 AM PRODUCT MARKETING ANALYST MRSA/STAPHYLOCOCCUS AUREUS, NASAL, BY PCR Routine 07/14/2024 10:39 AM PRODUCT MARKETING ANALYST BASIC METABOLIC PANEL, S/P Routine 07/14/2024 4:09 AM PRODUCT MARKETING ANALYST DX CHEST PORTABLE 1 VIEW RAD - Routine (most inpatients and all outpatients) 07/13/2024 9:07 PM PRODUCT MARKETING ANALYST CBC WITHOUT DIFFERENTIAL, B Routine 07/13/2024 8:14 PM PRODUCT MARKETING ANALYST OUTSIDE DX CHEST Routine 07/13/2024 8:40 AM PRODUCT MARKETING ANALYST OUTSIDE CT BODY Routine 07/13/2024 12:05 AM PRODUCT MARKETING ANALYST DX CHEST AP OR PA AND LATERAL 2 VIEWS RAD - Routine (most inpatients and all outpatients) 07/11/2024 11:26 AM PRODUCT MARKETING ANALYST Pneumonia BASIC METABOLIC PANEL, S/P Routine 07/11/2024 11:17 AM PRODUCT MARKETING ANALYST Pneumonia CBC WITH DIFFERENTIAL, B Routine 07/11/2024 11:17 AM PRODUCT MARKETING ANALYST Pneumonia OUTSIDE CT BODY Routine 06/30/2024 11:45 AM PRODUCT MARKETING ANALYST OUTSIDE DX CHEST Routine 06/30/2024 10:05 AM PRODUCT MARKETING ANALYST OUTSIDE DX CHEST Routine 06/26/2024 2:20 PM PRODUCT MARKETING ANALYST from Last 3 Months Results * DX Chest AP or PA and Lateral 2 Views (08/27/2024 10:18 AM PRODUCT MARKETING ANALYST) Only the most recent of7 resultswithin the time period is included. Anatomical Region Laterality Modality Chest, Thoracic RST LOS, Tho racic ARZ LOS, Thoracic FLA LOS N/A Digital Radiography Impressions 08/27/2024 10:25 AM PRODUCT MARKETING ANALYST Compared to 08/05/2024, multifocal linear subsegmental atelectasis or scarring and mild septal thickening in the left hemithorax is decreased but not resolved. Trace left pleural effusion is decreased. Improved aeration of the left lung base with decrease in previous mild patchy groundglass opacities. No new consolidation. Interval removal of right PICC. Chest otherwise negative. Narrative 08/27/2024 10:25 AM PRODUCT MARKETING ANALYST EXAM: DX CHEST AP OR PA AND [...] CBC with Differential, Blood (08/21/2024 8:46 AM PRODUCT MARKETING ANALYST) Only the most recent of8 resultswithin the time period is included. Hemoglobin 10.9(L) 11.6 - 15.0 g/dL 08/21/2024 8:55 AM PRODUCT MARKETING ANALYST FB60 Hematocrit 35.4(L) 35.5 - 44.9 % 08/21/2024 8:55 AM PRODUCT MARKETING ANALYST FB60 Erythrocytes 4.28 3.92 - 5.13 x10(12)/L 08/21/2024 8:55 AM PRODUCT MARKETING ANALYST FB60 MCV 82.7 78.2 - 97.9 fL 08/21/2024 8:55 AM PRODUCT MARKETING ANALYST FB60 RBC Distrib Width 16.6(H) 12.2 - 16.1 % 08/21/2024 8:55 AM PRODUCT MARKETING ANALYST FB60 Platelet Count 634(H) 157 - 371 x10(9)/L 08/21/2024 8:55 AM PRODUCT MARKETING ANALYST FB60 Leukocytes 10.5(H) 3.4 - 9.6 x10(9)/L 08/21/2024 8:55 AM PRODUCT MARKETING ANALYST FB60 Neutrophils 8.01(H) 1.56 - 6.45 x10(9)/L 08/21/2024 8:55 AM PRODUCT MARKETING ANALYST FB60 Lymphocytes 1.40 0.95 - 3.07 x10(9)/L 08/21/2024 8:55 AM PRODUCT MARKETING ANALYST FB60 Monocytes 0.58 0.26 - 0.81 x10(9)/L 08/21/2024 8:55 AM PRODUCT MARKETING ANALYST FB60 Eosinophils 0.47 0.03 - 0.48 x10(9)/L 08/21/2024 8:55 AM PRODUCT MARKETING ANALYST FB60 Basophils <0.04 0.01 - 0.08 x10(9)/L 08/21/2024 8:55 AM PRODUCT MARKETING ANALYST FB60 Blood (Blood, Venous) 08/21/2024 8:46 AM PRODUCT MARKETING ANALYST 08/21/2024 8:47 AM PRODUCT MARKETING ANALYST us Prudence TO, P.A.-C. LAB BLOOD ADD-ON Final Result Performing Organization Address City/[facility] Co de Phone Number [facility] [address] [place] [address], [facility] FB60 [facility] [place] [address] [place] [address] * (ABNORMAL) Bacterial Culture, Aerobic + Susceptibility (08/12/2024 8:35 AM PRODUCT MARKETING ANALYST) Only the most recent of3 resultswithin the time period is included. Bacterial Culture, Aerobic + Susc YEAST 2+ (A) 08/14/2024 11:12 AM PRODUCT MARKETING ANALYST MKTO Comment:No further identific ation Skin (Chest, Left) 08/12/2024 8:35 AM PRODUCT MARKETING ANALYST 08/12/2024 6:46 PM PRODUCT MARKETING ANALYST Comment:Specimen Source Site : Skin us Prudence TO, P.A.-C. LAB MICROBIOLOGY - GENERAL ORDERABLES Final Result [facility] [address] [place] [address], [place] MKTO [address] [address] * Chest-Family Medicine Image Exam (08/12/2024 8:19 AM PRODUCT MARKETING ANALYST) 08/12/2024 8:17 AM PRODUCT MARKETING ANALYST Narrative IIMS - 08/12/2024 8:19 AM PRODUCT MARKETING ANALYST This order has been created and auto-finalized to support the import of images acquired without order. The clinical documentation to support these images can be found on the encounter that produced images. us Provider Not In System IMG NON RAD IMAGING PROCE DURES Final Result Performing Organization Address City/[facility] Co de Phone Number IINH NA * ALT (Alanine Aminotransferase) (08/04/2024 9:11 AM PRODUCT MARKETING ANALYST) Only the most recent of3 resultswithin the time period is included. Alanine Aminotransferase (ALT), P 10 7 - 45 U/L 08/04/2024 9:42 AM PRODUCT MARKETING ANALYST RDWG Blood (Blood, PICC) 08/04/2024 9:11 AM PRODUCT MARKETING ANALYST 08/04/2024 9:21 AM PRODUCT MARKETING ANALYST us Melinda TO, P.A.-C., M.S. LAB BLOOD ADD-ON Final Result Performing Organization Address [facility] Co de Phone Number [facility] [address] [place] [address], [facility] RDWG [facility] [place] [address] [place] [address] * (ABNORMAL) Alkaline Phosphatase (08/04/2024 9:11 AM PRODUCT MARKETING ANALYST) Only the most recent of3 resultswithin the time period is included. Alkaline Phosphatase, P 106(H) 35 - 104 U/L 08/04/2024 9:42 AM PRODUCT MARKETING ANALYST RDWG Blood (Blood, PICC) 08/04/2024 9:11 AM PRODUCT MARKETING ANALYST 08/04/2024 9:21 AM PRODUCT MARKETING ANALYST Melinda TO, P.A.-C., M.S. LAB BLOOD ADD-ON Final Result [facility] [address] [place] [address], [facility] RDWG [facility] [place] [address] * (ABNORMAL) Creatinine with Estimated GFR (08/04/2024 9:11 AM PRODUCT MARKETING ANALYST) Only the most recent of3 resultswithin the time period is included. Creatinine 0.44(L) 0.59 - 1.04 mg/dL 08/04/2024 9:42 AM PRODUCT MARKETING ANALYST RDWG Estimated GFR (eGFR) >90 >=60 mL/min/BSA 08/04/2024 9:42 AM PRODUCT MARKETING ANALYST RDWG Comment: Estimated GFR calculated using the 2020 CKD_EPI creatinine equation. Blood (Blood, PICC) 08/04/2024 9:11 AM PRODUCT MARKETING ANALYST 08/04/2024 9:21 AM PRODUCT MARKETING ANALYST us Melinda Cohen [facility]ITAL[facility]olai, P.Paul.Susanna., M.S. LAB BLOOD ADD-ON Final Result [facility] [address] [place] [address], [facility] RDWG [facility] [place] [address] * CT Chest Angiogram and Pulmonary Arteries with IV Contrast (07/26/2024 10:37 AM PRODUCT MARKETING ANALYST) Anatomical Region Laterality Modality Chest, Cardiovascular RST LO S, Thoracic ARZ LOS, Thoracic FLA LOS N/A Computed Tomography 07/26/2024 10:4 2 AM PRODUCT MARKETING ANALYST Impressions 07/26/2024 10:46 AM PRODUCT MARKETING ANALYST 1. Negative for acute pulmonary embolism. 2. Similar findings of multifocal pneumonia. 3. Stable small left pleural effusion. Narrative 07/26/2024 10:46 AM PRODUCT MARKETING ANALYST EXAM: CT CHEST ANGIOGRAM AND PULMONARY ARTERIES [...] * (ABNORMAL) Sedimentation Rate (07/26/2024 9:44 AM PRODUCT MARKETING ANALYST) Sedimentation Rate, B 102(H) 0 - 29 mm/1 h 07/26/2024 1:33 PM PRODUCT MARKETING ANALYST RDWG Blood (Blood, Venous) 07/26/2024 9:44 AM PRODUCT MARKETING ANALYST 07/26/2024 12:52 PM PRODUCT MARKETING ANALYST us Dilcia Valero APRN, C.N.P. LAB BLOOD ADD-ON Final Result [facility] [address] [place] [address], [place] RDWG [facility] [place] [address] [place] [address] * (ABNORMAL) CRP (C-Reactive Protein) (07/26/2024 9:44 AM PRODUCT MARKETING ANALYST) C-Reactive Protein (CRP), P 43.3(H) <5.0 mg/L 07/26/2024 10:15 AM PRODUCT MARKETING ANALYST CNFL Blood (Blood, Venous) 07/26/2024 9:44 AM PRODUCT MARKETING ANALYST 07/26/2024 9:48 AM PRODUCT MARKETING ANALYST us Dilcia Valero APRN, C.N.P. LAB BLOOD ADD-ON Final Result Performing Organization Address City/[facility]/ZIP Co de Phone Number [facility] [address] [place] [address], [facility] CNFL [facility] in [address] [address] * Basic Metabolic Panel (07/26/2024 9:44 AM PRODUCT MARKETING ANALYST) Only the most recent of5 resultswithin the time period is included. Potassium, P 3.9 3.6 - 5.2 mmol/L 07/26/2024 10:15 AM PRODUCT MARKETING ANALYST CNFL Sodium, P 141 135 - 145 mmol/L 07/26/2024 10:15 AM PRODUCT MARKETING ANALYST CNFL Chloride, P 105 98 - 107 mmol/L 07/26/2024 10:15 AM PRODUCT MARKETING ANALYST CNFL Bicarbonate, P 25 22 - 29 mmol/L 07/26/2024 10:15 AM PRODUCT MARKETING ANALYST CNFL Anion Gap, P 11 7 - 15 07/26/2024 10:15 AM PRODUCT MARKETING ANALYST CNFL BUN (Blood Urea Nitrogen), P 10 6 - 21 mg/dL 07/26/2024 10:15 AM PRODUCT MARKETING ANALYST CNFL Creatinine 0.62 0.59 - 1.04 mg/dL 07/26/2024 10:15 AM PRODUCT MARKETING ANALYST CNFL Estimated GFR (eGFR) >90 >=60 mL/min/BSA 07/26/2024 10:15 AM PRODUCT MARKETING ANALYST CNFL Comment: Estimated GFR calculated using the 2020 CKD_EPI creatinine equation. Calcium, Total, P 8.8 8.6 - 10.0 mg/dL 07/26/2024 10:15 AM PRODUCT MARKETING ANALYST CNFL Glucose, P 122 70 - 140 mg/dL 07/26/2024 10:15 AM PRODUCT MARKETING ANALYST CNFL Blood (Blood, Venous) 07/26/2024 9:44 AM PRODUCT MARKETING ANALYST 07/26/2024 9:48 AM PRODUCT MARKETING ANALYST us Dilcia Valero APRN, C.N.P. LAB BLOOD ADD-ON Final Result [facility] [address] [place] [address], [facility] CNFL [facility] in [address] [address] * CT Chest with IV Contrast (07/24/2024 10:24 AM PRODUCT MARKETING ANALYST) Anatomical Region Laterality Modality Chest, Thoracic RST LOS, Tho racic ARZ LOS, Thoracic ARZ LOS, Thoracic FLA LOS N/A Computed Tomography 07/24/2024 10:2 2 AM PRODUCT MARKETING ANALYST Impressions 07/24/2024 11:16 AM PRODUCT MARKETING ANALYST Pneumonia and small left pleural effusion. Narrative 07/24/2024 11:16 AM PRODUCT MARKETING ANALYST EXAM: CT CHEST WITH IV CONTRAST COMPARISON: [...] (ABNORMAL) CBC without Differential (07/19/2024 6:02 AM PRODUCT MARKETING ANALYST) Only the most recent of2 resultswithin the time period is included. Hemoglobin 7.6(L) 11.6 - 15.0 g/dL 07/19/2024 6:38 AM PRODUCT MARKETING ANALYST DTL Hematocrit 24.1(L) 35.5 - 44.9 % 07/19/2024 6:38 AM PRODUCT MARKETING ANALYST DTL Erythrocytes 2.67(L) 3.92 - 5.13 x10(12)/L 07/19/2024 6:38 AM PRODUCT MARKETING ANALYST DTL MCV 90.3 78.2 - 97.9 fL 07/19/2024 6:38 AM PRODUCT MARKETING ANALYST DTL RBC Distrib Width 15.6 12.2 - 16.1 % 07/19/2024 6:38 AM PRODUCT MARKETING ANALYST DTL Platelet Count 478(H) 157 - 371 x10(9)/L 07/19/2024 6:38 AM PRODUCT MARKETING ANALYST DTL Leukocytes 9.8(H) 3.4 - 9.6 x10(9)/L 07/19/2024 6:38 AM PRODUCT MARKETING ANALYST DTL Blood (Blood, Venous) 07/19/2024 6:02 AM PRODUCT MARKETING ANALYST 07/19/2024 6:26 AM PRODUCT MARKETING ANALYST us Lopez Garvey M.D. LAB BLOOD ADD-ON Final Resul t [facility] [address] [place] [address], [place] [facility] [address] [place] [address] * Place peripherally inserted central catheter (PICC) (07/18/2024 8:43 PM PRODUCT MARKETING ANALYST) Narrative MMODAL - 07/18/2024 8:43 PM PRODUCT MARKETING ANALYST Rayo Finch R.N. 07/18/2024 9:[address] [...] with ultrasound and measured to ensure appropriate hyvodjka-[id number]-btdm ratio of 45% or less: Right Basilic [...] to release the adhesive from the skin. [email or web address] Eveline Mariscal P.A.-C. PROCEDURE/MINOR SURGICAL ORDERABLES Final Result MMODAL NA * HIV-1/-2 Ag and Ab Screen, Plasma (07/17/2024 5:05 PM PRODUCT MARKETING ANALYST) Pathologist [facility] [place] HIV-1/-2 Ag and Ab Screen, P Negative Negative 07/17/2024 8:57 PM PRODUCT MARKETING ANALYST [facility] Comment: Negative result does not rule out HIV infection. If exposure to HIV infection occurred <14 days ago, contact the laboratory to request addition of HIV-1/HIV-2 RNA detection, Plasma (HIP12). Blood (Blood, Venous) 07/17/2024 5:05 PM PRODUCT MARKETING ANALYST 07/17/2024 7:55 PM PRODUCT MARKETING ANALYST Arslan Pennington APRN, M.S. LAB MICROBIOLOGY - BLOOD ORDERABLES Final Result Performing Organization Address [facility] Co de Phone Number [facility] [address] [place] [address] [facility] [address] [place] [address] * (ABNORMAL) Vancomycin, Trough (07/16/2024 10:31 AM PRODUCT MARKETING ANALYST) [facility] Vancomycin, Trough, S 8.9(L) 10.0 - 20.0 mcg/mL 07/16/2024 12:10 PM PRODUCT MARKETING ANALYST DTL Blood (Blood, Venous) 07/16/2024 10:31 AM PRODUCT MARKETING ANALYST 07/16/2024 10:52 AM PRODUCT MARKETING ANALYST Patrick Mtz M.D., Ph.D. LAB BLOOD NON ADD-ON Fi nal Result Performing Organization Address [facility] Co de Phone Number [facility] [address] [place] [address], [facility] [place] [address] [place] [address] * DX Chest 1 View (07/15/2024 4:51 PM PRODUCT MARKETING ANALYST) Anatomical Region Laterality Modality Chest, Thoracic RST LOS, Tho racic ARZ LOS, Thoracic FLA LOS N/A Digital Radiography Impressions 07/15/2024 4:59 PM PRODUCT MARKETING ANALYST Negative for postoperative purposes. Left thoracotomy with 2 left chest tubes. Small left-sided pneumothorax. New left perihilar consolidation/atelectasis since 07/13/2024. Increased bibasilar consolidation/atelectasis. Very low lung volumes accentuate heart size and bronchovascular markings. Narrative 07/15/2024 4:59 PM PRODUCT MARKETING ANALYST EXAM: DX CHEST 1 VIEW Procedure Note Jah Elam M.D. - 07/15/2024 EXAM: DX CHEST 1 VIEW IMPRESSION: Negative for postoperative purposes. Left thoracotomy with 2 left chesttubes. Small left-sided pneumothorax. New left perihilarconsolidation/atelectasis since 07/13/2024. Increased bibasilarconsolidation/atelectasis. Very low lung volumes accentuate heart size and bronchovascular markings. us Patrick Mtz M.D., Ph.D. [facility] DIAGNOSTIC IMAGING PROCEDURES Final Result * Actinomyces Culture (07/15/2024 4:00 PM PRODUCT MARKETING ANALYST) Actinomyces Culture No growth after 14 days of incubation . 07/29/2024 7:33 AM PRODUCT MARKETING ANALYST DTL Tissue (Pleura, Left) 07/15/2024 4:00 PM PRODUCT MARKETING ANALYST us Patrick Mtz M.D., Ph.D. LAB MICROBIOLOGY - GENE RAL ORDERABLES Final Result Performing Organization Address City/[facility]/ZIP Co de Phone Number [facility] [address] [place] [address], [facility] [address] [place] [address] * Mycobacterial Culture (07/15/2024 4:00 PM PRODUCT MARKETING ANALYST) Only the most recent of2 resultswithin the time period is included. Mycobacterial Culture No growth after 42 days of incubation . 08/27/2024 1:02 AM PRODUCT MARKETING ANALYST DTL Tissue (Pleura, Left) 07/15/2024 4:00 PM PRODUCT MARKETING ANALYST us Patrick Mtz M.D., Ph.D. LAB MICROBIOLOGY - GENE RAL ORDERABLES Final Result Performing Organization Address City/[facility]/ZIP Co de Phone Number [facility] [address] [place] [address], [facility] [place] [address] [place] [address] * Fungal Smear (07/15/2024 4:00 PM PRODUCT MARKETING ANALYST) Only the most recent of2 resultswithin the time period is included. Fungal Smear Negative. 07/16/2024 8:52 AM PRODUCT MARKETING ANALYST DTL Tissue (Pleura, Left) 07/15/2024 4:00 PM PRODUCT MARKETING ANALYST us Patrick Mtz M.D., Ph.D. LAB MICROBIOLOGY - GENE RAL ORDERABLES Final Result Performing Organization Address City/[facility]/ZIP Co de Phone Number [facility] [address] [place] [address] * Legionella Culture (07/15/2024 4:00 PM PRODUCT MARKETING ANALYST) Legionella Culture No growth of Legionella species after 7 days of incubation 07/22/2024 8:16 AM PRODUCT MARKETING ANALYST DTL Tissue (Pleura, Left) 07/15/2024 4:00 PM PRODUCT MARKETING ANALYST us Patrick Mtz M.D., Ph.D. LAB MICROBIOLOGY - GENE RAL ORDERABLES Final Result Performing Organization Address City/[facility]/ZIP Co de Phone Number [facility] [address] [place] [address], [facility] [address] [place] [id number] * Acid Fast Smear for Mycobacterium (07/15/2024 4:00 PM PRODUCT MARKETING ANALYST) Only the most recent of2 resultswithin the time period is included. Acid Fast Smear For Mycobacterium Negative. 07/15/2024 10:18 PM PRODUCT MARKETING ANALYST DTL Tissue (Pleura, Left) 07/15/2024 4:00 PM PRODUCT MARKETING ANALYST us Patrick Mtz M.D., Ph.D. LAB MICROBIOLOGY - GENE RAL ORDERABLES Final Result Performing Organization Address City/[facility]/ZIP Co de Phone Number [facility] [address] [place] [phone], [facility] [address] [place] [address] * Gram Stain (07/15/2024 4:00 PM PRODUCT MARKETING ANALYST) Only the most recent of2 resultswithin the time period is included. Gram Stain No organisms seen. White blood cells, Many 07/15/2024 10:18 PM PRODUCT MARKETING ANALYST DTL Tissue (Pleura, Left) 07/15/2024 4:00 PM PRODUCT MARKETING ANALYST us Patrick Mtz M.D., Ph.D. LAB MICROBIOLOGY - GENE RAL ORDERABLES Final Result Performing Organization Address City/[facility]/[place] [address] * Fungal Culture, Routine (07/15/2024 4:00 PM PRODUCT MARKETING ANALYST) Only the most recent of2 resultswithin the time period is included. Fungal Culture, Routine No growth after 24 days of incubation. 08/09/2024 1:02 AM PRODUCT MARKETING ANALYST DTL Tissue (Pleura, Left) 07/15/2024 4:00 PM PRODUCT MARKETING ANALYST Result Emma Mtz M.D., Ph.D. LAB MICROBIOLOGY - GENE RAL ORDERABLES Final Result Performing Organization Address City/[facility]/ZIP Co de Phone Number [facility] [address] [place] [address] * Bacterial Culture, Anaerobic + Susceptibility (07/15/2024 4:00 PM PRODUCT MARKETING ANALYST) Bacterial Culture, Anaerobic + Susc No growth after 14 days of incubation. 07/29/2024 7:33 AM PRODUCT MARKETING ANALYST DTL Tissue (Pleura, Left) 07/15/2024 4:00 PM PRODUCT MARKETING ANALYST us Patrick Wigle M.D., Ph.D. LAB MICROBIOLOGY - GENE RAL ORDERABLES Final Result [facility] [address] [place] [address], [facility] [place] [address] [place] [address] * SD ARTL CATH/CNULA MONITOR PERC, LDA ANE ARTERIAL LINE INSERTION (07/15/2024 1:31 PM PRODUCT MARKETING ANALYST) Narrative Sandra May APRN, CRNA - 07/15/2024 1:31 PM PRODUCT MARKETING ANALYST Sandra May APRN, CRNA 07/15/2024 5:03 PM [...] LDA ANE ENDOTRACHEAL AIRWAY (07/15/2024 1:17 PM PRODUCT MARKETING ANALYST) Narrative Aroldo Johnson R.N. - 07/15/2024 1:17 PM PRODUCT MARKETING ANALYST Aroldo Johnson R.N. 07/15/2024 2:03 PM Airway Date/Time: 07/15/2024 1:17 PM Performed by: Aroldo Johnson R.N. Authorized by: Jamie Kumar M.D. Patient location during procedure: OR / Procedure Area PROCEDURE DETAILS: Mask difficulty assessment: oral/nasal airway needed Final airway type: video laryngoscope Laryngeal Manipulation: no Final best view of glottic structures - Cormack/Lehane Score: grade 1 ETT location: oral VL device: glide scope [place] scope blade size: 3 Tube size: 35 [...] DLETT would not advance through vocal folds. [place] used with single ETT then exchanged over [...] (with Reflex Antibody ID) (07/15/2024 7:50 AM PRODUCT MARKETING ANALYST) ABORh AB Pos Not applicable 07/15/2024 8:36 AM PRODUCT MARKETING ANALYST STRM Antibody Screen Negative Negative 07/15/2024 8:51 AM PRODUCT MARKETING ANALYST STRM Type & Screen Expiration 07/18/2024 23:59 07/15/2024 8:36 AM PRODUCT MARKETING ANALYST STRM Testing Location [place] DEFAULT 07/15/2024 8:10 AM PRODUCT MARKETING ANALYST STRM Blood (Blood, Venous) 07/15/2024 7:50 AM PRODUCT MARKETING ANALYST 07/15/2024 8:10 AM PRODUCT MARKETING ANALYST Jamie Kumar M.D. LAB BLOOD BANK TEST ORDERABLES F inal Result [facility] [address] STRM [facility] [address] [place] [address] * Staph aureus / MRSA, Nasal, PCR (07/14/2024 10:39 AM PRODUCT MARKETING ANALYST) Staphylococcus aureus, PCR Negative Negative 07/14/2024 12:55 PM PRODUCT MARKETING ANALYST DTL MRSA, PCR Negative Negative 07/14/2024 12:55 PM PRODUCT MARKETING ANALYST DTL Swab (Nares) 07/14/2024 10:3 9 AM PRODUCT MARKETING ANALYST 07/14/2024 11:06 AM PRODUCT MARKETING ANALYST us Patrick Mtz M.D., Ph.D. LAB MICROBIOLOGY - GENE RAL ORDERABLES Final Result [facility] [address] [place] [address], [facility] [place] [address] [place] [address] * DX Chest Portable 1 View (07/13/2024 9:07 PM PRODUCT MARKETING ANALYST) Anatomical Region Laterality Modality Chest, Thoracic RST LOS, Tho racic ARZ LOS, Thoracic FLA LOS N/A Digital Radiography Impressions 07/14/2024 7:27 AM PRODUCT MARKETING ANALYST No significant change since earlier today. Bibasilar atelectasis. Small left loculated pleural effusion. Hazy opacification in the bilateral lungs, left greater than right. No discernible pneumothorax. Mildly enlarged cardiomediastinal silhouette. Narrative 07/14/2024 7:27 AM PRODUCT MARKETING ANALYST EXAM: DX CHEST PORTABLE 1 VIEW Procedure [...] chest 2V-Outside Chest Xray (07/13/2024 8:40 AM PRODUCT MARKETING ANALYST) Only the most recent of3 resultswithin the time period is included. Narrative IINH - 07/13/2024 2:43 PM PRODUCT MARKETING ANALYST This order has been created and auto-finalized to support the import of outside images. If available, original interpretation can be found on the Media Tab in Chart Review, in Document Viewer, as an image in QREADS or as an Addendum. If a re-interpretation or overread is required please follow defined workflow. us Provider Not In System IM DIAGNOSTIC IMAGING SD OCEDURES Final Result Performing Organization Address [facility] de Phone Number IIMS NA * CT Angio Chest PE Protocol-Outside CT Body (07/13/2024 12:05 AM PRODUCT MARKETING ANALYST) Only the most recent of2 resultswithin the time period is included. Narrative IINH - 07/13/2024 2:48 PM PRODUCT MARKETING ANALYST This order has been created and auto-finalized to support the import of outside images. If available, original interpretation can be found on the Media Tab in Chart Review, in Document Viewer, as an image in QREADS or as an Addendum. If a re-interpretation or overread is required please follow defined workflow. us Provider Not In System [facility] CT PROCEDURES Final R esult Performing Organization Address City/[facility] Co de Phone Number IIMS NA from Last 3 Months Insurance [facility] [place] [address] Advance Directives For more information, please contact: [phone] * Full Code (Latest Code Status on File) Date Activated Date Inactivated Comments 07/15/2024 6:49 PM 07/20/2024 12:21 PM Question Answer Comments Full Code: Discussed * Full Code Date Activated Date Inactivated Comments 07/13/2024 7:54 PM 07/15/2024 6:49 PM Question Answer Comments Full Code: Not Discussed Due to: Patient not available Care Teams Territory Service Representative Relationship Specialty Start Date End Date Prudence Mena MPAS, P.A.-C. [address] [place] [address] [place] [id number] PCP - General Internal Medicine 02/08/24
--- OUTSIDE RECORDS SUMMARY | 2024-08-28 22:01 | XMS_ITS | Clinical Summary ---
Author Organization [facility] Address [address] [place] [address] Care Team Providers Care C Consultant Name Role Phone Claudia Morillo MD Primary Care Provider [phone] Social History Tobacco Use Types Packs/Day Years Used Date Smoking Tobacco: Never Assessed Comments Unknown Sex and Gender Information Value Date Recorded Sex Assigned at Not on file Legal Sex Female 3:28 PM CDT Gender Identity Not on file Sexual Orientation Not on file Plan of Treatment Not on file Care Teams C Consultant Relationship Specialty Start Date End Date Claudia Morillo MD [facility] [address] [place] [address] PCP - General 02/06/18
--- OUTSIDE RECORDS SUMMARY | 2024-08-28 22:01 | XMS_ITS | Encounter Summary ---
Author Organization [facility] Address [address] [place] [address] Care Team Providers Care Privacy Officer Name Role Phone Prudence Mena P.A.-C. Primary Care Pro vider Reason for Visit * Auth/Cert (Routine) Specialty Diagnoses / Procedures Referred By Contac t Referred To Contact Diagnoses Empyema Pleural (HCC) Pleuritic chest pain. empyema Procedures INPT Referral ID Status Reason Start Date Expiration Date Visits Re quested Visits Authorized [id number] 1 1 Encounter Details Date Type Department Care Team (Late st Contact Info) Description 07/15/2024 12:57 PM STUDENT FINANCIAL AID MANAGER Anesthesia Event [facility] OR [address] [place] [phone] Lanre Hayward M.D. [address] [place] [phone] Aroldo Johnson, RDmitryNDmitry Anesthesia Record Procedure Summary [...] DLETT would not advance through vocal folds. Barnwell used with single ETT then exchanged over [...] oz pur e alcohol) socially [facility] Utilities Answer Date Recorded In the past 12 months has [employer], gas, oil, or water [employer] threatened to shut off services in your [...] How often do you attend zoroastrianism or jainism serv ices? Never 07/27/2022 Do [...] Date Recorded PHQ-2 Score 6 07/10/2024 [facility] [place] of Occupat ional Health - Occupational Stress [...] partner or ex-partner? No 07/15/2024 8:00 PM STUDENT FINANCIAL AID MANAGER Helena Brady RDmitryN. Within the last year, have y ou been afraid of your partner or ex-partner? No 07/15/2024 8:00 PM STUDENT FINANCIAL AID MANAGER Helena Brady R.N. Within the last year, have y ou been raped or forced to have any kind of sexual activity by your partner or ex-partner? No 07/15/2024 8:00 PM STUDENT FINANCIAL AID MANAGER Helena Brady RDmitryN. Within the last year, have y ou been kicked, hit, slapped, or otherwise physically hurt by your partner or ex-partner? No 07/15/2024 8:00 PM STUDENT FINANCIAL AID MANAGER Helena Brady R.N. documented as of this encounter OR Notes * Anesthesia Postprocedure Evaluation - Lanre Hayward M.D. - 07/15/2024 6:45 PM CST Patient: Melinda Kumar Procedure Summary Date: 07/15/24 Room / Location: [address] [facility] in [place], [place] Anesthesia Start: 1257 Anesthesia Stop: 1702 [...] post-op. Notable Events No notable events documented. ENT FINANCIAL AID MANAGER * Anesthesia Procedure Notes - Sandra May [...] turn: yes Notable Events - arterial: none ENT FINANCIAL AID MANAGER ENT FINANCIAL AID MANAGER * Anesthesia Procedure Notes - Aroldo Johnson R.N. - 07/15/2024 2:01 PM STUDENT FINANCIAL AID MANAGER Associated Order(s): Airway Airway Date/Time: 07/15/2024 1:17 PM Performed by: Aroldo Johnson R.N. Authorized by: Jamie Kumar M.D. Patient location during procedure: OR / Procedure Area PROCEDURE DETAILS: Mask difficulty assessment: oral/nasal airway needed Final airway type: video laryngoscope Laryngeal Manipulation: no Final best view of glottic structures - Cormack/Lehane Score: grade 1 ETT location: oral VL device: glide scope Barnwell scope blade size: 3 Tube size: 35 [...] DLETT would not advance through vocal folds. Barnwell used with single ETT then exchanged over boujie for DLETT. Verified placement with fiberoptic PRE PROCEDURE DETAILS: Pre evaluation for airway management: procedure Urgency: elective Preop assessment of probable difficulty: questionable / suspicious difficult airway Preoxygenation: bag valve mask SEDATION / ANESTHESIA Anesthesia method: anesthesia POST PROCEDURE DETAILS: Procedure outcome: successful Notable Events: no complications ENT FINANCIAL AID MANAGER * Anesthesia Preprocedure Evaluation - Jamie Kumar M.D. - 07/15/2024 11:43 AM CST Preprocedure Anesthesia & H&P Assessment Procedure Summary Date/Time: 07/15/24 1310 Procedure: ROBOTIC THORACOSCOPY, DECORTICATION, PLEURODESIS, POSSIBLE THORACOTOMY, PROCEED INDICATED. (Left) Diagnosis: Empyema Pleural (HCC) [J86.9] Pre-op diagnosis: Left empyema. Location: [address] / [facility] in [place], [place] Providers: Patrick Mtz M.D., Ph.D. Pertinent [...] with patient /legal guardian or through an accounts receivable manager. Risks/Benefits/Alternatives of Blood transfusion discussed with patient / legal guardian, includingan opportunity to ask questions and/or decline some or all transfusion therapies. The patient / legal guardian consented to the use of all blood products, as deemed medically necessary Approval to Proceed: approved for anesthesia ENT FINANCIAL AID MANAGER documented in this encounter Plan of Treatment Upcoming Encounters Date Type Department Care Team (Late st Contact Info) Description 08/30/2024 9:00 AM STUDENT FINANCIAL AID MANAGER Office Visit Department of Community Internal Medicine in [place], [place] [address] [place] [phone] Prudence Mena MPAS, P.A.-C. [address] [place] [phone] documented as of this encounter Procedures Procedure Name Priority Date/Time Associated Diagnosis Comments LDA ANE ARTERIAL LINE INSERTION Routine 07/15/2024 1:31 PM STUDENT FINANCIAL AID MANAGER NM ARTL CATH/CNULA MONITOR PERC Routine 07/15/2024 1:31 PM STUDENT FINANCIAL AID MANAGER LDA ANE ENDOTRACHEAL AIRWAY Routine 07/15/2024 1:17 PM STUDENT FINANCIAL AID MANAGER documented in this encounter Results * NM ARTL CATH/CNULA MONITOR PERC, LDA ANE ARTERIAL LINE INSERTION (07/15/2024 1:31 PM STUDENT FINANCIAL AID MANAGER) Narrative Sandra May APRN, CRNA - 07/15/2024 1:31 PM STUDENT FINANCIAL AID MANAGER Sandra May APRN, CRNA 07/15/2024 5:03 PM [...] turn: yes Notable Events - arterial: none aLnre Hayward M.D. PROCEDURE/MINOR SURGICAL ORD ERABLES Edited Result - Final * LDA ANE ENDOTRACHEAL AIRWAY (07/15/2024 1:17 PM STUDENT FINANCIAL AID MANAGER) Narrative Aroldo Johnson R.NDmitry - 07/15/2024 1:17 PM STUDENT FINANCIAL AID MANAGER Aroldo Johnson R.N. 07/15/2024 2:03 PM Airway Date/Time: 07/15/2024 1:17 PM Performed by: Aroldo Johnson R.N. Authorized by: Jamie Kumar M.D. Patient location during procedure: OR / Procedure Area PROCEDURE DETAILS: Mask difficulty assessment: oral/nasal airway needed Final airway type: video laryngoscope Laryngeal Manipulation: no Final best view of glottic structures - Cormack/Lehane Score: grade 1 ETT location: oral VL device: glide scope Barnwell scope blade size: 3 Tube size: 35 [...] DLETT would not advance through vocal folds. Barnwell used with single ETT then exchanged over [...] 1456, Anesthesia Intra-op Given 07/15/2024 3:06 PM STUDENT FINANCIAL AID MANAGER 250 mL Given 07/15/2024 2:56 PM STUDENT FINANCIAL AID MANAGER 250 mL ceFAZolin injection (Ancef) intravenous, As needed, Starting on Mon07/15/24 at 1407, Anesthesia Intra-op Given 07/15/2024 2:07 PM STUDENT FINANCIAL AID MANAGER 2 g dexAMETHasone injection (Decadron) intravenous, As needed, Starting on Mon07/15/24 at 1415, Anesthesia Intra-op Given 07/15/2024 2:15 PM STUDENT FINANCIAL AID MANAGER 8 mg fentaNYL injection (Sublimaze) intravenous, As needed, Starting on Mon07/15/24 at 1307, Anesthesia Intra-op Given 07/15/2024 1:07 PM STUDENT FINANCIAL AID MANAGER 100 mcg HYDROmorphone (PF) injection (Dilaudid) intravenous, As needed, Starting on Mon07/15/24 at 1420, Anesthesia Intra-op Given 07/15/2024 3:20 PM STUDENT FINANCIAL AID MANAGER 0.2 mg Given 07/15/2024 2:33 PM STUDENT FINANCIAL AID MANAGER 0.4 mg Given 07/15/2024 2:20 PM STUDENT FINANCIAL AID MANAGER 0.4 mg ketamine injection (Ketalar) intravenous, As needed, Starting on Mon07/15/24 at 1418, Anesthesia Intra-op Given 07/15/2024 3:58 PM STUDENT FINANCIAL AID MANAGER 10 mg Given 07/15/2024 3:06 PM STUDENT FINANCIAL AID MANAGER 10 mg Given 07/15/2024 2:18 PM STUDENT FINANCIAL AID MANAGER 10 mg Lactated Ringer's intravenous, Continuous Infusion: Per Instructions PRN, Starting on Mon07/15/24 at 1307, Anesthesia Intra-op New Bag 07/15/2024 1:07 PM STUDENT FINANCIAL AID MANAGER lidocaine (PF) (cardiac) injection intravenous, As needed, Starting on Mon07/15/24 at 1307, Anesthesia Intra-op Given 07/15/2024 1:07 PM STUDENT FINANCIAL AID MANAGER 80 mg ondansetron (PF) injection (Zofran) intravenous, As needed, Starting on Mon07/15/24 at 1606, Anesthesia Intra-op Given 07/15/2024 4:06 PM STUDENT FINANCIAL AID MANAGER 4 mg phenylephrine injection intravenous, As needed, Starting on Mon07/15/24 at 1618, Anesthesia Intra-op Given 07/15/2024 4:18 PM STUDENT FINANCIAL AID MANAGER 100 mcg piperacillin-tazobactam in dextrose (iso osm) IVPB 4.5 g (Zosyn) 4.5 g, intravenous, at 200 mL/hr, Administer over 0.5 Hours, Every 6 hours, First dose (after last modification) on Mon07/13/24 at 2100, Drug Monitoring Program: Pharmacist to adjust medication dosing based on indication and drug clearance factors., Indications: Respiratory tract infection, healthcare associatedIndications:Respiratory tract infection, healthcare associated New Bag 07/17/2024 2:23 PM STUDENT FINANCIAL AID MANAGER 4.5 g 200 mL/hr New Bag 07/17/2024 8:11 AM STUDENT FINANCIAL AID MANAGER 4.5 g 200 mL/hr New Bag 07/17/2024 3:41 AM STUDENT FINANCIAL AID MANAGER 4.5 g 200 mL/hr propofol 10 mg/mL infusion (Diprivan) intravenous, As needed, Starting on Mon07/15/24 at 1307, Anesthesia Intra-op Rate/Dose Change 07/15/2024 2:58 PM STUDENT FINANCIAL AID MANAGER 50 mcg/kg/min 28.8 mL/hr Rate/Dose Change 07/15/2024 1:20 PM STUDENT FINANCIAL AID MANAGER 75 mcg/kg/min 43.2 mL/hr New Bag 07/15/2024 1:07 PM STUDENT FINANCIAL AID MANAGER 50 mcg/kg/min 28.8 mL/hr propofoL injection (Diprivan) intravenous, As needed, Starting on Mon07/15/24 at 1307, Anesthesia Intra-op Given 07/15/2024 1:07 PM STUDENT FINANCIAL AID MANAGER 200 mg rocuronium injection (Zemuron) intravenous, As needed, Starting on Mon07/15/24 at 1307, Anesthesia Intra-op Given 07/15/2024 4:01 PM STUDENT FINANCIAL AID MANAGER 10 mg Given 07/15/2024 3:20 PM STUDENT FINANCIAL AID MANAGER 20 mg Given 07/15/2024 2:28 PM STUDENT FINANCIAL AID MANAGER 20 mg sugammadex injection (Bridion) intravenous, As needed, Starting on Mon07/15/24 at 1619, Anesthesia Intra-op Given 07/15/2024 4:41 PM STUDENT FINANCIAL AID MANAGER 100 mg Given 07/15/2024 4:39 PM STUDENT FINANCIAL AID MANAGER 100 mg Given 07/15/2024 4:19 PM STUDENT FINANCIAL AID MANAGER 200 mg documented in this encounter Additional Health Concerns Assessment Noted Time PHQ-9 Depression Total Score: 22 025 7:19 PM STUDENT FINANCIAL AID MANAGER documented as of this encounter Care Teams Privacy Officer Relationship Specialty Start Date End Date Prudence Mena MPAS, P.A.-C. [address] [place] [phone] PCP - General Internal Medicine 02/08/24 documented as of this encounter
--- OUTSIDE RECORDS SUMMARY | 2024-08-28 22:01 | XMS_ITS | Encounter Summary ---
Author Organization [facility] Address [address] [place] [address] Care Team Providers Care Track Laying Supervisor Name Role Phone Prudence Mena P.A.-C. Primary Care Pro vider Reason for Referral * Outpatient (Routine) - Closed Specialty Diagnoses / Procedures Referred By Contac t Referred To Contact Diagnoses Empyema Pleural (HCC) Procedures DX Chest AP or PA and Lateral 2 Views Kayleigh Small M.D. [address] [place] [address] Phone: tel: fax: [facility] Referral ID Status Reason Start Date Expiration Date Visits Re quested Visits Authorized [id number] Closed 07/18/2024 07/18/2025 1 1 [place] SALES REPRESENTATIVE * Outpatient (Routine) - Closed Specialty Diagnoses / Procedures Referred By Contac t Referred To Contact Infectious Diseases Diagnoses Empyema Pleural (HCC) Kayleigh Small M.D. [address] [place] [address] Phone: tel: fax: [facility] Referral ID Status Reason Start Date Expiration Date Visits Re quested Visits Authorized [id number] Closed 07/18/2024 01/17/2026 1 1 [place] SALES REPRESENTATIVE Reason for Visit * Reason Onset Date Comments Post Hospital Follow-up 07/18/2024 Encounter Details Date Type Department Care Team (Latest Contact Info) Description 07/18/2024 Clinical Communication [facility] [address] [place] [address] Kayleigh Small M.D. [address] [place] [address] Post Hospital Follow-up Social History Tobacco Use Types Packs/Day Years Used Date Smoking Tobacco: Former Cigarettes 1.5 0.2 S tarted: 06/21/2024 Passive Smoke Exposure: Past Smokeless Tobacco: Never Alcohol Use Standard Drinks/Week Comments Yes 0 (1 standard drink = 0.6 oz pur e alcohol) socially [facility] [employer] Answer Date Recorded In the past 12 months has e electric, gas, oil, or water [employer] threatened to shut off services in your [...] How often do you attend mandaen or hoahaoism serv ices? Never 07/27/2022 Do [...] Recorded PHQ-2 Score 6 07/10/2024 [facility] of Occupat ional [facility] - Occupational Stress Questionnaire Answer Date [...] st Contact Info) Description 08/30/2024 9:00 AM RETAIL SALES REPRESENTATIVE Office Visit Department of Community Internal Medicine in [place], [place] [address] [place] [address] Prudence Mena, LATONIAS, P.A.-C. [address] [place] [address] Scheduled Referrals Name Type Priority Associated Diagnoses Order Schedule Infectious Diseases office visit (clinic) Outpatient Referral Routine Empyema Pleural (HCC) Expected: 08/05/2024, Expires: 10/16/2025 documented as of this encounter Results * DX Chest AP or PA and Lateral 2 Views (08/05/2024 8:24 AM RETAIL SALES REPRESENTATIVE) Anatomical Region Laterality Modality Chest, Thoracic RST LOS, Tho racic ARZ LOS, Thoracic FLA LOS N/A Digital Radiography Impressions 08/05/2024 8:30 AM RETAIL SALES REPRESENTATIVE Compared with 07/26/2024. Stable areas of pleural and parenchymal scarring on the left. The small posterior left pleural effusion appears decreased. Right basilar atelectasis has resolved. Right PICC line in the upper right atrium. Chest otherwise negative. Narrative 08/05/2024 8:30 AM RETAIL SALES REPRESENTATIVE EXAM: DX CHEST AP OR PA AND [...] Total Score: 22 025 7:19 PM RETAIL SALES REPRESENTATIVE documented as of this encounter Care Teams Track Laying Supervisor Relationship Specialty Start Date End Date Prudence Mena MPAS, P.A.-C. [address] [place] [phone] PCP - General Internal Medicine 02/08/24 documented as of this encounter
--- OUTSIDE RECORDS SUMMARY | 2024-08-28 22:01 | XMS_ITS | Encounter Summary ---
Author Organization [facility] Address [address] [place] [id number] Care Team Providers Care Float Builder Name Role Phone Prudence Mena P.A.-C. Primary Care Pro vider Reason for Referral * Outpatient (Routine) - Closed Specialty Diagnoses / Procedures Referred By Contac t Referred To Contact Diagnoses Empyema Pleural (HCC) Procedures Perform central online project manager: Flush port(s), Site care Melinda Isaac APRN, C.N.P. [address] [place] [phone] Phone: tel: fax: [facility] Region Referral ID Status Reason Start Date Expiration Date Visits Re quested Visits Authorized [id number] Closed 07/19/2024 07/19/2025 1 1 AND MACHINE OPERATOR * Outpatient (Routine) - Closed Specialty Diagnoses / Procedures Referred By Contac t Referred To Contact Diagnoses Empyema Pleural (HCC) Procedures Perform central online project manager: Site care, Flush port(s) Melinda Isaac APRN, C.N.P. [address] [place] [phone] Phone: tel: fax: [facility] Region Referral ID Status Reason Start Date Expiration Date Visits Re quested Visits Authorized [id number] Closed 07/19/2024 07/19/2025 1 1 AND MACHINE OPERATOR * Outpatient (Routine) - Closed Specialty Diagnoses / Procedures Referred By Contac t Referred To Contact Thoracic Surgery Melinda Isaac APRN, C.N.P. [address] [place] [phone] Phone: tel: fax: [facility] Referral ID Status Reason Start Date Expiration Date Visits Re quested Visits Authorized [id number] Closed 07/19/2024 01/18/2026 1 1 AND MACHINE OPERATOR * Outpatient (Routine) - Closed Specialty Diagnoses / Procedures Referred By Contac t Referred To Contact Diagnoses Empyema Pleural (HCC) Procedures DX Chest AP or PA and Lateral 2 Views Melinda Isaac APRN, C.N.P. [address] [place] [phone] Phone: tel: fax: [facility] Referral ID Status Reason Start Date Expiration Date Visits Re quested Visits Authorized [id number] Closed 07/19/2024 07/19/2025 1 1 AND MACHINE OPERATOR Reason for Visit * Auth/Cert (Routine) Specialty Diagnoses / Procedures Referred By Contac t Referred To Contact Diagnoses Empyema Pleural (HCC) Pleuritic chest pain. empyema Procedures INPT Referral ID Status Reason Start Date Expiration Date Visits Re quested Visits Authorized [id number] 1 1 Encounter Details Date Type Department Care Team (Latest Contact Info) Description 07/13/2024 7:53 PM GARLAND MACHINE OPERATOR - 07/20/2024 10:16 AM GARLAND MACHINE OPERATOR Hospital Encounter [facility], Tenth Floor [address] [place] [phone] Patrick Mtz M.D., Ph.D. [address] [place] [phone] Empyema Pleural (HCC) (Primary Dx) Discharge Disposition: Home or Self Care Social History Tobacco Use Types Packs/Day Years Used Date Smoking Tobacco: Former Cigarettes 1.5 0.2 S tarted: 06/21/2024 Passive Smoke Exposure: Past Smokeless Tobacco: Never Alcohol Use Standard Drinks/Week Comments Yes 0 (1 standard drink = 0.6 oz pur e alcohol) socially [facility] Utilities Answer Date Recorded In the past 12 months has e [employer], gas, oil, or water [facility] threatened to shut off services in your [...] How often do you attend cheondoism or pentecostalism serv ices? Never 07/27/2022 Do [...] Answer Date Recorded PHQ-2 Score 6 07/10/2024 [facility] - Occupational Stress Questionnaire Answer Date [...] Comments Blood Pressure 146/104 07/20/2024 8:45 AM GARLAND MACHINE OPERATOR Pulse 92 07/20/2024 9:00 AM GARLAND MACHINE OPERATOR Temperature 36.6 C (97.9 F) 07/20/2024 8:45 AM GARLAND MACHINE OPERATOR Respiratory Rate 16 07/20/2024 8:45 AM GARLAND MACHINE OPERATOR Oxygen Saturation 93% 07/20/2024 9:00 AM GARLAND MACHINE OPERATOR Inhaled Oxygen Concentration - - Weight 99.7 kg (219 lb 12.8 oz) 07/17/2024 7:14 PM GARLAND MACHINE OPERATOR Height 163 cm (5' 4.17) 07/17/2024 3:00 PM GARLAND MACHINE OPERATOR Body Mass Index 37.53 07/17/2024 3:00 PM GARLAND MACHINE OPERATOR documented in this encounter Functional Status * Intimate Partner Violence Question Answer Date of Assessment Author Within the last year, have y ou been humiliated or emotionally abused in other ways by your partner or ex-partner? No 07/15/2024 8:00 PM GARLAND MACHINE OPERATOR Helena Brady, R.N. Within the last year, have y ou been afraid of your partner or ex-partner? No 07/15/2024 8:00 PM GARLAND MACHINE OPERATOR Helena Brady, R.N. Within the last year, have y ou been raped or forced to have any kind of sexual activity by your partner or ex-partner? No 07/15/2024 8:00 PM GARLAND MACHINE OPERATOR Helena Brady, R.N. Within the last year, have y ou been kicked, hit, slapped, or otherwise physically hurt by your partner or ex-partner? No 07/15/2024 8:00 PM GARLAND MACHINE OPERATOR Helena Brady R.N. documented as of this encounter Discharge Summaries * Shahram Abernathy APRN, C.N.P., M.S. - 07/20/2024 10:16 AM CST DISCHARGE SUMMARY BRIEF OVERVIEW Hospital: [facility] Discharge Provider: Patrick Mtz M.D. Primary Team: [facility] Thoracic Surgery - [place] Primary Care Providers: Prudence Mena MPAS, P.A.-C. (General) [address] [facility] [phone] Primary Care Provider Primary Care Provider Other [...] INDICATED. Patrick Mtz M.D., Ph.D.Catrina Sutton M.D. [facility] ROMB OR DISCHARGE DISPOSITION Home or Self [...] with any questions or issues. Admin Ast: [phone] (M-F 8 AM to 5 PM) Concrete Mixer: [phone] (Thoracic Surgery Fourth Mate for Nights & Weekend Urgent Issues) Appointments: [phone] INFECTIOUS DISEASES THERAPY RECOMMENDATIONS Antimicrobial plan: Patient [...] of Infectious Diseases OPAT monitoring program at [phone]. Should patient be enrolled in OPAT/COPAT program: [...] 10 Appointments 07/21/2024 9:00 AM CHAIR 01 [facility] 02 INF Infusion Therapy 07/22/2024 9:00 AM CHAIR 05 [facility] 02 INF Infusion Therapy 07/23/2024 9:00 AM CHAIR 05 [facility] 02 INF Infusion Therapy 07/24/2024 9:00 AM CHAIR 03 [facility] XX INF Infusion Therapy 07/25/2024 9:00 AM CHAIR 05 [facility] 02 INF Infusion Therapy 07/26/2024 9:00 AM CHAIR 05 [facility] 02 INF Infusion Therapy 07/27/2024 9:00 AM CHAIR 01 [facility] 02 INF Infusion Therapy 07/28/2024 9:00 AM CHAIR 01 [facility] 02 INF Infusion Therapy 07/29/2024 10:00 [...] female who was a direct admission from [facility] on for a left-sided empyema. She proceeded [...] discharge services today: greater than 30 minutes. AND MACHINE OPERATOR documented in this encounter Discharge Instructions * Attachments The following attachments cannot be sent through Care Everywhere. * Acute Pain and the Healing Process * Ceftriaxone (By injection) (Italian) * Ibuprofen (By mouth) (Italian) * Methocarbamol (By mouth) (Italian) * Metronidazole (By mouth) (Italian) * Oxycodone, Rapid Release (By mouth) (Italian) * Laxative, Stimulant (By mouth) (Italian) documented in this encounter Medications at Time [...] a venous catheter daily for 17 days. [facility] 07/19/2024 5 methocarbamoL (Robaxin) 500 mg tablet Take 1 tablet (500 mg total) by mouth 3 (three) times a day as needed for muscle spasms. 45 tablet 07/20/2024 10:13 AM GARLAND MACHINE OPERATOR 07/19/2024 5 metroNIDAZOLE (FlagyL) 500 mg tabletIndication s:Empyema Take 1 tablet (500 mg total) by mouth 3 (three) times a day for 17 days Indications: Empyema. 51 tablet 07/20/2024 10:13 AM GARLAND MACHINE OPERATOR 07/19/2024 5 nitrofurantoin (MACRODANTIN) 50 mg capsule [...] Pain Exception. 28 tablet 07/20/2024 10:13 AM GARLAND MACHINE OPERATOR 07/19/2024 5 sennosides (senna) 8.6 mg tablet [...] Discharge today Patient discussed with Dr. Mtz. AND MACHINE OPERATOR * Denny Ann R.R.T., L.R.T. - 07/20/2024 [...] Denny Ann R.R.T., L.R.T. 07/20/24 7:32 AM GARLAND MACHINE OPERATOR AND MACHINE OPERATOR * Kusum Urena R.R.T., L.R.T. - [...] Kusum Urena R.R.T., Christian 07/19/24 1:54 PM GARLAND MACHINE OPERATOR AND MACHINE OPERATOR * Lopez Garvey M.D. - 07/19/2024 [...] Encourage ambulance Patient discussed with Dr. Mtz. AND MACHINE OPERATOR * Arlyn Starr R.R.T., L.R.T. - 07/18/2024 12:39 PM CST 07/18/24 1238 Pulmonary Rehab Pulmonary Rehab Patient Evaluation Pulmonary rehabilitation ordered;Chart and history reviewed Monitored Exercise Session Details see note $Monitored Exercise Session 15 minutes Inpatient Pulmonary Rehab: Follow-up Needed Yes Inpatient Pulmonary Rehab: Next Date 01/17/25 Inpatient Pulmonary Rehab: Patient to be Seen Next by RT RT unable to see Melinda Kuamr due to patient refusal. Pt initially requested to wait until pain medications given. Returned 1hr 15 min later and she was having chest tubes removed. Returned 1 hour later and she was still feeling tired and requested we reschedule for tomorrow. Will attempt to see patient tomorrow. Electronically signed by: Arlyn Starr R.R.T., L.R.T. 07/18/24 12:39 PM GARLAND MACHINE OPERATOR AND MACHINE OPERATOR AND MACHINE OPERATOR * Anna Wheeler - 07/18/2024 12:26 PM CST Clinical Nutrition: Initial Assessment RECOMMENDATIONS REQUIRING MD/PROVIDER ORDER No changes at this time; continue current nutrition orders For questions about patient's nutritional care please contact pager [phone] on weekdays or [phone] on weekends/holidays. NUTRITION ASSESSMENT: Ms. Kumar is [...] from outside of the hospital such as [employer] and [employer]. She currently feels likes [...] patient report. ESTIMATED NEEDS: Total Calorie Needs: 5422-3516 calories/day Method to Estimate Energy Needs: Bell-St Jeor ( ) Weight Used for Equation Calculations: 96 kg Total Protein Needs: 77 - 96 grams/day Method to Estimate Protein Needs (g/kg): 0.8 - 1 gm/kg Weight Used to Calculate Protein Needs (Kg): 96 kg Nutrition Diagnosis: Clinical risk not noted Nutrition Intervention: Medical food supplement Monitoring/Evaluation: Nutrition parameter to monitor: Meals/Supplement Intake, Weight Status AND MACHINE OPERATOR * Patrick Mtz M.D., Ph.D. - 07/18/2024 10:56 AM CST I visited face to face with the patient on NT10 this morning. We will obtain an updated chest x-raywith a view towards removing 1 of her chest tubes today. We will follow the recommendations of our Infectious Disease colleagues regarding ongoing antibiotic management. AND MACHINE OPERATOR * Magno Fisher, Ph.D. - 07/18/2024 [...] Encourage ambulance Patient discussed with Dr. Mtz. AND MACHINE OPERATOR * Kayleigh Small M.D. - 07/18/2024 [...] Please page the ICU-ID service pager at [phone] with questions. Thank you for the consultation. Discussed with Dr. Camejo, ID universal branch consultant and the primary team. Kayleigh Small [...] of Infectious Diseases OPAT monitoring program at [phone]. Should patient be enrolled in OPAT/COPAT program: [...] Camejo M.D., M.S. at 07/18/2024 1:06 PM GARLAND MACHINE OPERATOR AND MACHINE OPERATOR AND MACHINE OPERATOR Associated attestation - Hay Camejo M.D., M.S. - 07/18/2024 1:06 PM GARLAND MACHINE OPERATOR I saw and evaluated the patient, [...] Montrell Garland R.R.T., L.R.T. 07/17/24 1:04 PM GARLAND MACHINE OPERATOR AND MACHINE OPERATOR * Lopez Garvey M.D. - 07/17/2024 [...] spirometer Discussed with Dr. Smith Garvey MD AND MACHINE OPERATOR * Jarocho Belle, R.Ph. - 07/16/2024 1:12 PM CST Pharmacokinetic Consult - Vancomycin Dosing Melinda Kumar is a 39 y.o. female who has received a pharmacy consult for vancomycin therapyfor dose optimization and monitoring. Indication: Respiratory tract infection, healthcare associated Goal trough: 10-15 mcg/mL OBJECTIVE There is no height or weight on file to calculate BMI. Katy body weight: 55.1 kg Adjusted ideal body [...] patient's clinical progress daily. Jarocho Belle, R.Ph. AND MACHINE OPERATOR * Gema Srinivasan R.R.T., L.R.T. - [...] Gema Srinivasan R.R.T., MarcellusRDmitryTDmitry 07/16/24 11:34 AM GARLAND MACHINE OPERATOR AND MACHINE OPERATOR * Lopez Garvey M.D. - 07/16/2024 9:46 AM CST Ms. Kumar is POD 1 from left robotic decortication, 2 chest tubes were left in place Patient is afebrile and hemodynamically stable. She had a METAL SPRAYER MACHINED PARTS started overnight for pain control. She otherwise [...] spirometer Discussed with Dr. Smith Garvey MD AND MACHINE OPERATOR * Patrick Mtz M.D., Ph.D. - [...] female who was a direct admission from [facility] on for a left-sided empyema. Patient reports [...] female who was a direct admission from [facility] on for a left-sided empyema. She will be proceeding to the operating room tomorrow for left VATS decortication. Plan: -continue IV antibiotics -OR today Discussed with Dr. Smith Garvey MD AND MACHINE OPERATOR * Lopez Garvey M.D. - 07/14/2024 9:00 AM CST Ms. Kumar is a 39-year-old female who was a direct admission from [facility] on for a left-sided empyema. Patient reports [...] female who was a direct admission from [facility] on for a left-sided empyema. She will be proceeding to the operating room tomorrow for left VATS decortication. Plan: -continue IV antibiotics -regular diet today, NPO at midnight -continue pain control -patient has listed, will be consented and site marked for operating room tomorrow Discussed with Dr. Smith Garvey MD AND MACHINE OPERATOR * Maxim Freed Pharm.DDmitry, R.Ph., BCPS - 07/14/2024 8:27 AM CST Images from the original note were not included. Pharmacist Progress Note Reason for admission: direct admission from [facility] on July 13 for a left-sided empyema [...] DME Order Patient stated she needs to pickle maker DULoxetine (CYMBALTA) [address] capsule 07/13/2024 [...] information available at the time of documentation. AND MACHINE OPERATOR documented in this encounter H&P Notes * Lopez Garvey M.D. - 07/13/2024 7:38 PM CST History and Physical SUBJECTIVE Chief Complaint:pleuritic chest pain HPI: Melnida Kumar is a 39 y.o. female with a past medical history significant for fibromyalgia, chronic back pain, asthma, sleep apnea, hypertension, depression who was directly admitted for left empyema. Patient presented at the end of June to [facility] initially with pneumonia, following influenza A infection. [...] to worsening symptoms she presented again to [facility] where she underwent a CT scan that [...] AGENT; Surgeon: Yobany Soares M.D., Ph.D.; Location: [facility] OR HYDRODISTENSION BLADDER WITH CYSTOSCOPY N/A 06/30/2023 Procedure: HYDRODISTENSION BLADDER WITH CYSTOSCOPY; Surgeon: Yobany Soares M.D., Ph.D.; Location: [facility] OR INJECTION BOTOX Bilateral 06/30/2023 Procedure: INJECTION BOTOX PELVIC FLOOR; Surgeon: Yobany Soares M.D., Ph.D.; Location: [facility] OR OTHER SURGICAL HISTORY 10/2017 [...] DME Order Patient stated she needs to pickle maker), Disp: 1 each, Rfl: 0 DULoxetine (CYMBALTA) [...] room Discussed with Dr. Smith Garvey MD AND MACHINE OPERATOR documented in this encounter Procedure Notes [...] with ultrasound and measured to ensure appropriate jllncvjq-[id number]-hbdg ratio of 45% or less: Right Basilic [...] to release the adhesive from the skin. [email or web address] AND MACHINE OPERATOR documented in this encounter Consult Notes * Karen Wilkerson M.SAnton., LShaan.S.W. - 07/18/2024 12:33 PM CSTAssociated Order(s): IP CONSULT TO CARE MANAGEMENT Psychosocial Assessment SUBJECTIVE ASSESSMENT INFORMATION Referral Data Referral Source: BETA TESTER/PA Referral Reason: Psychosocial assessment, Discharge Planning Previous Assessment: No Legal Researcher Services Used: No Primary Language: Italian Legal Researcher Services Used: No Sexuality/Pronoun: Straight / Person(s) [...] is [facility] Patient shares that she cameto the hospital for Pneumonia. SOCIAL HISTORY Family / Household: Patient reports living in a multi level town home with her 4 sons ages 17, 17, 15 and 10. Support System: 4 children and family in [place] Spirituality/Oriental Orthodox/Cultural Factors: None History: No Employment: disabled Psychosocial [...] Communication: Can write, Talks, Understands speaking, Understands Italian Shopping: Needs assistance Medication Management: Independent Housekeeping: [...] current substance use. ASSESSMENT / PLAN DISCUSSION Litigation Secretary met with patient in hospital room to provide a supportive visit, complete a psychosocial, and assist with discharge needs. 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 Patient expressed understanding of the purpose of [...] our ownership and financial relationship of the [facility] beds, home health, and hospice agencies. Reviewed [facility] medicaid insurance coverage and provided in-network options. Patient anticipates discharging home once medically ready without patient infusions at [facility]. Patient reports no further questions currently. Encouraged patient to contact Litigation Secretary should additional needs arise. warehouse worker 2nd shift returned to inform patient that [facility] is not open on weekends and that she willneed to go to [place]. Patient was agreeable to this. Patient's mother was in the room and shared that she had a question for public health social worker. Patient's mother asked about help with cleaning around the home. warehouse worker 2nd shift explained [place] [...] building Solution focused Education provided regarding the [place] Senior LinkAge Line. The Patient was not provided due to not being a [place] resident and/or 60 + years old. PLAN Outpatient infusions will be obtained through: [facility] Monday- Monday and [facility] on Weekends. Phone for scheduling- [phone] Phone for [phone] NURSING: - Call to arrange for the patient???s first visit Prior to 3 pm Monday if Discharging over the weekend. - Adjust the dosing schedule to accommodate [facility] schedule. - Complete documentation in the Discharge Navigator including Nursing Report Info and Facility/NextLevel of Care Info PRIMARY SERVICE: - Complete infusion therapy and lab orders in Epic as needed. - Identify the continuing care provider, who will follow the patient while receiving outpatient infusion at [facility]. Social Work : -Will continue to follow. Anticipated barriers to the transition of care/plan: None identified at this time. Destiny Gonzales, MarcellusI.C.S.W. 07/18/2024 AND MACHINE OPERATOR AND MACHINE OPERATOR * Kayleigh Small M.D. - 07/17/2024 [...] empyema. Interval history includes initial presentation to [facility] ED 06/26/2024 and was prescribed azithromycin and prednisone for walking pneumonia. She was admitted to [facility] 06/30/2024-07/04/2024 with sepsis secondary to left lower lobe pneumonia and was treated with IV antibiotics and IV steroid. She was discharged on 07/04/2024 on oral antibiotics (doxycycline for 5 days. After d ischarge patient continued continued to have shortness of breath and left pleuritic chest pain. Dueto worsening in symptoms she presented again to [facility] where she underwent CT chest which showed worsening left pleural effusion and empyema. [facility] She underwent left robotic [...] - Date/Time Bacterial Culture, Anaerobic + Susceptibility [[id number]] Collected: 07/15/24 1600 Lab Status: Preliminary result Specimen: Tissue from Pleura, Left Updated: 07/17/24 0739 Bacterial Culture, Anaerobic + Susc No growth to date. Fungal Culture, Routine [[id number]] Collected: 07/15/24 1600 Lab Status: In process Specimen: Tissue from Pleura, Left Updated: 07/15/24 1720 Gram Stain [[id number]] Collected: 07/15/24 1600 Lab Status: Final result Specimen: Tissue from Pleura, Left Updated: 07/15/24 2218 Gram Stain No organisms seen. White blood cells, Many Acid Fast Smear for Mycobacterium [[id number]] Collected: 07/15/24 1600 Lab Status: Final result Specimen: Tissue from Pleura, Left Updated: 07/15/24 2218 Acid Fast Smear For Mycobacterium Negative. Legionella Culture [[id number]] Collected: 07/15/24 1600 Lab Status: Preliminary result Specimen: Tissue from Pleura, Left Updated: 07/17/24 0754 Legionella Culture No growth to date. Fungal Smear [[id number]] Collected: 07/15/24 1600 Lab Status: Final result Specimen: Tissue from Pleura, Left Updated: 07/16/24 0852 Fungal Smear Negative. Mycobacterial Culture [[id number]] Collected: 07/15/241599 Lab Status: In process Specimen: Tissue from Pleura, Left Updated: 07/15/24 1720 Actinomyces Culture [[id number]] Collected: 07/15/24 1600 Lab Status: Preliminary result Specimen: Tissue from Pleura, Left Updated: 07/17/24 0739 Actinomyces Culture No growth to date. Bacterial Culture, Aerobic + Susceptibility [[id number]] Collected: 07/15/24 1600 Lab Status: Preliminary result Specimen: Tissue from Pleura, Left Updated: 07/17/24 0847 Bacterial Culture, Aerobic + Susc No growth to date. Fungal Culture, Routine [[id number]] Collected: 07/15/241423 Lab Status: In process Specimen: Pleural Fluid, Left Updated: 07/15/24 1519 Narrative: Bacterial Culture: Placed in Bactec aerobic and Bactec anaerobic bottles Gram Stain [[id number]] Collected: 07/15/241423 Lab Status: Final result Specimen: Pleural Fluid, Left Updated: 07/15/242001 Gram Stain No organisms seen. White blood cells, Moderate Narrative: Bacterial Culture: Placed in Bactec aerobic and Bactec anaerobic bottles Acid Fast Smear for Mycobacterium [[id number]] Collected: 07/15/241423 Lab Status: Final result Specimen: Pleural Fluid, Left Updated: 07/15/24 2125 Acid Fast Smear For Mycobacterium Negative. Narrative: Bacterial Culture: Placed in Bactec aerobic and Bactec anaerobic bottles Fungal Smear [[id number]] Collected: 07/15/24 142 Lab Status: Final result Specimen: Pleural Fluid, Left Updated: 07/15/24 1925 Fungal Smear Negative. Narrative: Bacterial Culture: Placed in Bactec aerobic and Bactec anaerobic bottles Mycobacterial Culture [[id number]] Collected: 07/15/24 142 Lab Status: In process Specimen: Pleural Fluid, Left Updated: 07/15/24 1519 Narrative: Bacterial Culture: Placed in Bactec aerobic and Bactec anaerobic bottles Bacterial Culture, Aerobic + Susceptibility [[id number]] Collected: 07/15/24 1424 Lab Status: Preliminary result Specimen: Pleural Fluid, Left Updated: 07/17/24 0847 Bacterial Culture, Aerobic + Susc No growth to date. Narrative: Bacterial Culture: Placed in Bactec aerobic and Bactec anaerobic bottles Staph aureus / MRSA, Nasal, PCR [[id number]] Collected: 07/14/24 1039 Lab Status: Final result [...] Please page the ICU-ID service pager at [phone] with questions. Thank you for the consultation. Discussed with Dr. Camejo, ID universal branch consultant and the primary team. Kayleigh Small M.D. Infectious Diseases Fellow Cosigned by Hay Camejo M.D., M.S. at 07/17/2024 2:43 PM GARLAND MACHINE OPERATOR AND MACHINE OPERATOR AND MACHINE OPERATOR Associated attestation - Hay Camejo M.D., M.S. - 07/17/2024 2:43 PM GARLAND MACHINE OPERATOR I saw and evaluated the patient, [...] If some point, she was admitted to [facility] at the end of June for [...] Goal: Maintain a safe environment Outcome: Progressing AND MACHINE OPERATOR * Malcolm Cordon R.N. - 07/19/2024 [...] DC home tomorrow (07/20). Malcolm Cordon R.N. AND MACHINE OPERATOR * Shawna Little R.N., C.M.SHumaNDmitry - 07/17/2024 10:01 PM CST Shift Goals: Clinical Goals for the Shift: Pt will state pain is tolerable after discontinuing METAL SPRAYER MACHINED PARTS. Identify possible barriers to meeting goals/advancing plan [...] pain 6-9/10 during shift. Ice pack utilized. METAL SPRAYER MACHINED PARTS DC'd. Scheduled Tylenol given. PRN oxycodone, Robaxin [...] SATS above 90% Encouraged incentive spirometer use. AND MACHINE OPERATOR * Bhumi Chawla R.N. - 07/17/2024 5:43 AM CST Shift Goals: Clinical Goals for the Shift: Patient will get adequate rest overnight and report good pain control Identify possible barriers to meeting goals/advancing plan of care: None End of Shift Summary: Sasha slept well overnight in between cares. Pain controlled with METAL [employer]ACH[employer], PRN Robaxin and scheduled tylenol. She ambulated [...] Achieves optimal ventilation and oxygenation Outcome: Progressing AND MACHINE OPERATOR * Diane Blevins R.N. - 07/15/2024 1:15 PM CST Patient came to OR with personal belongings including 4 earrings and 1 ring/piercing. Sent with patient on chart. Roxanne Blevins RN AND MACHINE OPERATOR * Candi Leonard R.N. - 07/15/2024 [...] Absence of infection during hospitalization Outcome: Progressing AND MACHINE OPERATOR * Helena Brady RDmitryN. - 07/14/2024 6:41 [...] Goal: Patient discharge needs identified Outcome: Progressing AND MACHINE OPERATOR documented in this encounter OR Notes * Op Note - Catrina Sutton M.D. - 07/15/2024 2:11 PM CST Pre-op Diagnosis Empyema Pleural (HCC) Post-op Diagnosis Empyema Pleural (HCC) Reproduction Specialist A tv production assistant actively participated and was necessary for [...] Mtz M.D., Ph.D. at 07/17/2024 8:18 AM GARLAND MACHINE OPERATOR AND MACHINE OPERATOR AND MACHINE OPERATOR * Brief Op Note - Catrina Sutton M.D. - 07/15/2024 2:11 PM GARLAND MACHINE OPERATOR Pre-op Diagnosis Empyema Pleural (HCC) Post-op Diagnosis Empyema Pleural (HCC) Findings Multiple adhesions and pockets of pus involving the pleura, lower lobe and diaphragm Complications None Catrina Cole M.D. AND MACHINE OPERATOR documented in this encounter Miscellaneous Notes * Hospital Course - Melinda Isaac APRN, C.N.P. - 07/16/2024 8:03 AM GARLAND MACHINE OPERATOR Ms. Kumar is a 39-year-old female who was a direct admission from [facility] on for a left-sided empyema. She proceeded [...] a general diet, and voiding without difficulty. AND MACHINE OPERATOR AND MACHINE OPERATOR AND MACHINE OPERATOR AND MACHINE OPERATOR AND MACHINE OPERATOR AND MACHINE OPERATOR AND MACHINE OPERATOR AND MACHINE OPERATOR AND MACHINE OPERATOR AND MACHINE OPERATOR documented in this encounter Plan of Treatment Upcoming Encounters Date Type Department Care Team (Late st Contact Info) Description 08/30/2024 9:00 AM GARLAND MACHINE OPERATOR Office Visit Department of [facility] in [place], [place] [address] [place] [address] Prudence Mena MPAS, P.A.-C. [address] [place] [address] Scheduled Orders Name Type Priority Associated Diagnoses Orde r Schedule Perform central online project manager: Site care, Flush port(s) Procedures Routine Empyema Pleural (HCC) Expected: 07/22/2024, Expires: 10/17/2025 Perform central online project manager: Flush port(s), Site care Procedures Routine Empyema [...] inpatients and all outpatients) 07/19/2024 1:04 PM GARLAND MACHINE OPERATOR NOCTURNAL OXYGEN STUDY - RT Routine 07/19/2024 12:24 PM GARLAND MACHINE OPERATOR DX CHEST AP OR PA AND LATERAL 2 VIEWS RAD - Routine (most inpatients and all outpatients) 07/19/2024 9:10 AM GARLAND MACHINE OPERATOR ADULT OXYGEN THERAPY Routine 07/19/2024 8:01 AM GARLAND MACHINE OPERATOR CBC WITHOUT DIFFERENTIAL, B Routine 07/19/2024 6:02 AM GARLAND MACHINE OPERATOR BASIC METABOLIC PANEL, S/P Routine 07/19/2024 6:02 AM GARLAND MACHINE OPERATOR PLACE PERIPHERALLY INSERTED CENTRAL CATHETER (PICC) Routine 07/18/2024 8:43 PM GARLAND MACHINE OPERATOR ADULT OXYGEN THERAPY Routine 07/18/2024 8:01 PM GARLAND MACHINE OPERATOR DX CHEST AP OR PA AND LATERAL 2 VIEWS RAD - Routine (most inpatients and all outpatients) 07/18/2024 10:15 AM GARLAND MACHINE OPERATOR ADULT OXYGEN THERAPY Routine 07/18/2024 8:00 AM GARLAND MACHINE OPERATOR ADULT OXYGEN THERAPY Routine 07/17/2024 8:01 PM GARLAND MACHINE OPERATOR HIV-1/-2 AG AND AB SCREEN, PLASMA Routine 07/17/2024 5:05 PM GARLAND MACHINE OPERATOR ADULT OXYGEN THERAPY Routine 07/17/2024 8:01 AM GARLAND MACHINE OPERATOR ADULT OXYGEN THERAPY Routine 07/16/2024 8:01 PM GARLAND MACHINE OPERATOR RESPIRATORY ASSESS AND TREAT Routine 07/16/2024 2:00 PM GARLAND MACHINE OPERATOR VANCOMYCIN, TROUGH, S Timed 07/16/2024 10:31 AM GARLAND MACHINE OPERATOR ADULT OXYGEN THERAPY Routine 07/16/2024 8:01 AM GARLAND MACHINE OPERATOR ADULT OXYGEN THERAPY Routine 07/15/2024 8:01 PM GARLAND MACHINE OPERATOR ADULT OXYGEN THERAPY Routine 07/15/2024 6:49 PM GARLAND MACHINE OPERATOR ADULT OXYGEN THERAPY Routine 07/15/2024 6:49 PM GARLAND MACHINE OPERATOR ADULT OXYGEN THERAPY Routine 07/15/2024 6:49 PM GARLAND MACHINE OPERATOR DX CHEST 1 VIEW RAD - Routine (most inpatients and all outpatients) 07/15/2024 4:51 PM GARLAND MACHINE OPERATOR BACTERIAL CULTURE, AEROBIC + SUSC Routine 07/15/2024 4:00 PM GARLAND MACHINE OPERATOR Empyema Pleural (HCC) ACTINOMYCES CULTURE Routine 07/15/2024 4 :00 PM GARLAND MACHINE OPERATOR Empyema Pleural (HCC) MYCOBACTERIAL CULTURE, V Routine 07/15/2024 4:00 PM GARLAND MACHINE OPERATOR Empyema Pleural (HCC) FUNGAL SMEAR Routine 07/15/2024 4:00 PM GARLAND MACHINE OPERATOR Empyema Pleural (HCC) LEGIONELLA CULTURE Routine 07/15/2024 4: 00 PM GARLAND MACHINE OPERATOR Empyema Pleural (HCC) ACID FAST SMEAR FOR MYCOBACTERIUM Routine 07/15/2024 4:00 PM GARLAND MACHINE OPERATOR Empyema Pleural (HCC) GRAM STAIN Routine 07/15/2024 4:00 PM GARLAND MACHINE OPERATOR Empyema Pleural (HCC) FUNGAL CULTURE, ROUTINE Routine 07/15/2024 4:00 PM GARLAND MACHINE OPERATOR Empyema Pleural (HCC) BACTERIAL CULTURE, ANAEROBIC + SUSC Routine 07/15/2024 4:00 PM GARLAND MACHINE OPERATOR Empyema Pleural (HCC) BACTERIAL CULTURE, AEROBIC + SUSC Routine 07/15/2024 2:24 PM GARLAND MACHINE OPERATOR Empyema Pleural (HCC) MYCOBACTERIAL CULTURE, V Routine 07/15/2024 2:24 PM GARLAND MACHINE OPERATOR Empyema Pleural (HCC) FUNGAL SMEAR Routine 07/15/2024 2:24 PM GARLAND MACHINE OPERATOR Empyema Pleural (HCC) ACID FAST SMEAR FOR MYCOBACTERIUM Routine 07/15/2024 2:24 PM GARLAND MACHINE OPERATOR Empyema Pleural (HCC) GRAM STAIN Routine 07/15/2024 2:24 PM GARLAND MACHINE OPERATOR Empyema Pleural (HCC) FUNGAL CULTURE, ROUTINE Routine 07/15/2024 2:24 PM GARLAND MACHINE OPERATOR Empyema Pleural (HCC) THORACOSCOPY - DECORTICATION 07/15/2024 12:32 PM GARLAND MACHINE OPERATOR Empyema Pleural (HCC) TYPE AND SCREEN STAT 07/15/2024 7:50 AM GARLAND MACHINE OPERATOR MRSA/STAPHYLOCOCCUS AUREUS, NASAL, BY PCR Routine 07/14/2024 10:39 AM GARLAND MACHINE OPERATOR BASIC METABOLIC PANEL, S/P Routine 07/14/2024 4:09 AM GARLAND MACHINE OPERATOR DX CHEST PORTABLE 1 VIEW RAD - Routine (most inpatients and all outpatients) 07/13/2024 9:07 PM GARLAND MACHINE OPERATOR CBC WITHOUT DIFFERENTIAL, B Routine 07/13/2024 8:14 PM GARLAND MACHINE OPERATOR documented in this encounter Results * DX Chest AP or PA and Lateral 2 Views (08/27/2024 10:18 AM GARLAND MACHINE OPERATOR) Anatomical Region Laterality Modality Chest, Thoracic RST LOS, Tho racic ARZ LOS, Thoracic FLA LOS N/A Digital Radiography Impressions 08/27/2024 10:25 AM GARLAND MACHINE OPERATOR Compared to 08/05/2024, multifocal linear subsegmental atelectasis or scarring and mild septal thickening in the left hemithorax is decreased but not resolved. Trace left pleural effusion is decreased. Improved aeration of the left lung base with decrease in previous mild patchy groundglass opacities. No new consolidation. Interval removal of right PICC. Chest otherwise negative. Narrative 08/27/2024 10:25 AM GARLAND MACHINE OPERATOR EXAM: DX CHEST AP OR PA [...] PICC. Chest otherwise negative. us Melinda Isaac REGISTERED RESPIRATORY TECHNICIAN, C.N.P. IMG DIAGNOSTIC IM AGING PROCEDURES Final Result * (ABNORMAL) Creatinine with Estimated GFR (07/29/2024 10:15 AM GARLAND MACHINE OPERATOR) Creatinine 0.53(L) 0.59 - 1.04 mg/dL 07/29/2024 10:39 AM GARLAND MACHINE OPERATOR [place] Estimated GFR (eGFR) >90 >=60 mL/min/BSA 07/29/2024 10:39 AM GARLAND MACHINE OPERATOR [facility] Comment: Estimated GFR calculated using the 2020 CKD_EPI creatinine equation. Blood (Blood, PICC) 07/29/2024 10:15 AM GARLAND MACHINE OPERATOR 07/29/2024 10:18 AM GARLAND MACHINE OPERATOR us Melinda Isaac APRN, C.N.P. LAB [place] [address], [place] [address] * Alkaline Phosphatase (07/29/2024 10:15 AM GARLAND MACHINE OPERATOR) Alkaline Phosphatase, P 97 35 - 104 U/L 07/29/2024 10:39 AM GARLAND MACHINE OPERATOR [facility] Blood (Blood, PICC) 07/29/2024 10:15 AM GARLAND MACHINE OPERATOR 07/29/2024 10:18 AM GARLAND MACHINE OPERATOR us Melinda Isaac APRN, C.N.P. LAB [place] [address], [place] [address] * ALT (Alanine Aminotransferase) (07/29/2024 10:15 AM GARLAND MACHINE OPERATOR) Alanine Aminotransferase (ALT), P 15 7 - 45 U/L 07/29/2024 10:39 AM GARLAND MACHINE OPERATOR [facility] Blood (Blood, PICC) 07/29/2024 10:15 AM GARLAND MACHINE OPERATOR 07/29/2024 10:18 AM GARLAND MACHINE OPERATOR us Melinda Isaac APRN, C.N.P. LAB BLOOD ADD-ON Final Result [facility] [address] [place] [id number], [facility] in [address] [address] * (ABNORMAL) CBC with Differential, Blood (07/29/2024 10:15 AM GARLAND MACHINE OPERATOR) Hemoglobin 10.2(L) 11.6 - 15.0 g/dL 07/29/2024 10:28 AM GARLAND MACHINE OPERATOR [facility]FL Hematocrit 33.5(L) 35.5 - 44.9 % 07/29/2024 10:28 AM GARLAND MACHINE OPERATOR [facility] Erythrocytes 3.82(L) 3.92 - 5.13 x10(12)/L 07/29/2024 10:28 AM GARLAND MACHINE OPERATOR [facility] MCV 87.7 78.2 - 97.9 fL 07/29/2024 10:28 AM GARLAND MACHINE OPERATOR [facility] RBC Distrib Width 14.9 12.2 - 16.1 % 07/29/2024 10:28 AM GARLAND MACHINE OPERATOR [facility] Platelet Count 837(H) 157 - 371 x10(9)/L 07/29/2024 10:28 AM GARLAND MACHINE OPERATOR [facility] Leukocytes 16.0(H) 3.4 - 9.6 x10(9)/L 07/29/2024 10:28 AM GARLAND MACHINE OPERATOR [facility] Neutrophils 13.54(H) 1.56 - 6.45 x10(9)/L 07/29/2024 10:28 AM GARLAND MACHINE OPERATOR [facility] Lymphocytes 1.31 0.95 - 3.07 x10(9)/L 07/29/2024 10:28 AM GARLAND MACHINE OPERATOR [facility] Monocytes 0.62 0.26 - 0.81 x10(9)/L 07/29/2024 10:28 AM GARLAND MACHINE OPERATOR [facility] Eosinophils 0.39 0.03 - 0.48 x10(9)/L 07/29/2024 10:28 AM GARLAND MACHINE OPERATOR [facility] Basophils 0.12(H) 0.01 - 0.08 x10(9)/L 07/29/2024 10:28 AM GARLAND MACHINE OPERATOR [facility] Blood (Blood, PICC) 07/29/2024 10:15 AM GARLAND MACHINE OPERATOR 07/29/2024 10:18 AM GARLAND MACHINE OPERATOR us Melinda Isaac APRN CDmitryNDmitryPDmitry LAB BLOOD ADD-ON Final Result Performing Organization Address City/State/[facility] Co de Phone Number [facility] [address] [place] [id number], [facility] in [address] [address] * DX Chest AP or PA and Lateral 2 Views (07/19/2024 1:04 PM GARLAND MACHINE OPERATOR) Anatomical Region Laterality Modality Chest, Thoracic RST LOS, Tho racic ARZ LOS, Thoracic FLA LOS N/A Digital Radiography Impressions 07/19/2024 1:55 PM GARLAND MACHINE OPERATOR Since earlier today, removal of the left chest tube. Remainder not significantly changed. Trace left apical pneumothorax. Right PICC tip at the SVC/RA junction. No pleural effusions. Enlarged cardiac silhouette. Scattered subsegmental atelectasis. Narrative 07/19/2024 1:55 PM GARLAND MACHINE OPERATOR EXAM: DX CHEST AP OR PA [...] us Eveline Mariscal P.A.-C. IMG DIAGNOSTIC IMAGING PA OCEDURES Final Result * DX Chest AP or PA and Lateral 2 Views (07/19/2024 9:10 AM GARLAND MACHINE OPERATOR) Anatomical Region Laterality Modality Chest, Thoracic RST LOS, Tho racic ARZ LOS, Thoracic FLA LOS N/A Digital Radiography Impressions 07/19/2024 10:12 AM GARLAND MACHINE OPERATOR Since 07/18/2024, right arm PICC has been inserted with tip at the SVC RA junction. One of the left chest tubes has been removed. Remainder unchanged. Trace left apical pneumothorax. No pleural effusions. Enlarged cardiac silhouette. Scattered subsegmental atelectasis. Left chest tube. Narrative 07/19/2024 10:12 AM GARLAND MACHINE OPERATOR EXAM: DX CHEST AP OR PA [...] tube. Eveline Mariscal P.A.-C. IMG DIAGNOSTIC IMAGING PA OCEDURES Final Result * Basic Metabolic Panel (07/19/2024 6:02 AM GARLAND MACHINE OPERATOR) Potassium, S 3.6 3.6 - 5.2 mmol/L 07/19/2024 6:59 AM GARLAND MACHINE OPERATOR DTL Sodium, S 140 135 - 145 mmol/L 07/19/2024 6:59 AM GARLAND MACHINE OPERATOR DTL Chloride, S 103 98 - 107 mmol/L 07/19/2024 6:59 AM GARLAND MACHINE OPERATOR DTL Bicarbonate, S 28 22 - 29 mmol/L 07/19/2024 6:59 AM GARLAND MACHINE OPERATOR DTL Anion Gap 9 7 - 15 07/19/2024 6:59 AM GARLAND MACHINE OPERATOR DTL BUN (Blood Urea Nitrogen), S 11 6 - 21 mg/dL 07/19/2024 6:59 AM GARLAND MACHINE OPERATOR DTL Creatinine 0.82 0.59 - 1.04 mg/dL 07/19/2024 6:59 AM GARLAND MACHINE OPERATOR DTL Estimated GFR (eGFR) >90 >=60 mL/min/BSA 07/19/2024 6:59 AM GARLAND MACHINE OPERATOR DTL Comment: Estimated GFR calculated using the 2020 CKD_EPI creatinine equation. Calcium, Total, S 8.6 8.6 - 10.0 mg/dL 07/19/2024 6:59 AM GARLAND MACHINE OPERATOR DTL Glucose, S 90 70 - 140 mg/dL 07/19/2024 6:59 AM GARLAND MACHINE OPERATOR DTL Blood (Blood, Venous) 07/19/2024 6:02 AM GARLAND MACHINE OPERATOR 07/19/2024 6:42 AM GARLAND MACHINE OPERATOR Lopez Garvey M.D. LAB BLOOD ADD-ON Final Resul t [facility] [address] [place] [address], [facility] [address] [place] [address] * (ABNORMAL) CBC without Differential (07/19/2024 6:02 AM GARLAND MACHINE OPERATOR) Hemoglobin 7.6(L) 11.6 - 15.0 g/dL 07/19/2024 6:38 AM GARLAND MACHINE OPERATOR DTL Hematocrit 24.1(L) 35.5 - 44.9 % 07/19/2024 6:38 AM GARLAND MACHINE OPERATOR DTL Erythrocytes 2.67(L) 3.92 - 5.13 x10(12)/L 07/19/2024 6:38 AM GARLAND MACHINE OPERATOR DTL MCV 90.3 78.2 - 97.9 fL 07/19/2024 6:38 AM GARLAND MACHINE OPERATOR DTL RBC Distrib Width 15.6 12.2 - 16.1 % 07/19/2024 6:38 AM GARLAND MACHINE OPERATOR DTL Platelet Count 478(H) 157 - 371 x10(9)/L 07/19/2024 6:38 AM GARLAND MACHINE OPERATOR DTL Leukocytes 9.8(H) 3.4 - 9.6 x10(9)/L 07/19/2024 6:38 AM GARLAND MACHINE OPERATOR DTL Blood (Blood, Venous) 07/19/2024 6:02 AM GARLAND MACHINE OPERATOR 07/19/2024 6:26 AM GARLAND MACHINE OPERATOR Lopez Garvey M.D. LAB BLOOD ADD-ON Final Resul t [facility] [address] [place] [address], [place] DTL [facility] [address] [place] [address] * Place peripherally inserted central catheter (PICC) (07/18/2024 8:43 PM GARLAND MACHINE OPERATOR) Narrative [facility] - 07/18/2024 8:43 PM GARLAND MACHINE OPERATOR Rayo Finch R.N. 07/18/2024 9:11 PM [...] with ultrasound and measured to ensure appropriate qpnaznlw-[id number]-[id number] ratio of 45% or less: Right Basilic [...] to release the adhesive from the skin. http://[employer]/products/secureportiv Eveline Mariscal P.A.-C. PROCEDURE/MINOR SURGICAL ORDERABLES Final Result [facility] NA * DX Chest AP or PA and Lateral 2 Views (07/18/2024 10:15 AM GARLAND MACHINE OPERATOR) Anatomical Region Laterality Modality Chest, Thoracic RST LOS, Tho racic ARZ LOS, Thoracic FLA LOS N/A Digital Radiography Impressions 07/18/2024 10:22 AM GARLAND MACHINE OPERATOR Compared with the 07/15/2024 chest radiograph. Decreased tiny left pneumothorax. Slightly improved aeration with decreased lower lung predominant presumably atelectases. Shallow inspiration with accentuation of the cardiovascular structures. Narrative 07/18/2024 10:22 AM GARLAND MACHINE OPERATOR EXAM: DX CHEST AP OR PA AND LATERAL 2 VIEWS Procedure Note Polo Toussaint M.D. - 07/18/2024 EXAM: DX CHEST AP OR PA AND LATERAL 2 VIEWS IMPRESSION: Compared with the 07/15/2024 chest radiograph. Decreased tiny leftpneumothorax. Slightly improved aeration with decreased lower lungpredominant presumably atelectases. Shallow inspiration with accentuationof the cardiovascular structures. Eveline Mariscal P.A.-C. IMG DIAGNOSTIC IMAGING PA OCEDURES Final Result * HIV-1/-2 Ag and Ab Screen, Plasma (07/17/2024 5:05 PM GARLAND MACHINE OPERATOR) [facility] HIV-1/-2 Ag and Ab Screen, P Negative Negative 07/17/2024 8:57 PM GARLAND MACHINE OPERATOR [facility] Comment: Negative result does not rule out HIV infection. If exposure to HIV infection occurred <14 days ago, contact the laboratory to request addition of HIV-1/HIV-2 RNA detection, Plasma (HIP12). Blood (Blood, Venous) 07/17/2024 5:05 PM GARLAND MACHINE OPERATOR 07/17/2024 7:55 PM GARLAND MACHINE OPERATOR Demarcus Pennington APRNN DmitryP., M.S. LAB MICROBIOLOGY - BLOOD ORDERABLES Final Result Performing Organization Address City/[facility]/ZIP Co de Phone Number [facility] [address] [place] [address] [facility] [address] [place] [address] * (ABNORMAL) Vancomycin, Trough (07/16/2024 10:31 AM GARLAND MACHINE OPERATOR) [facility] Vancomycin, Trough, S 8.9(L) 10.0 - 20.0 mcg/mL 07/16/2024 12:10 PM GARLAND MACHINE OPERATOR DTL Blood (Blood, Venous) 07/16/2024 10:31 AM GARLAND MACHINE OPERATOR 07/16/2024 10:52 AM GARLAND MACHINE OPERATOR Patrick Mtz M.D., Ph.D. LAB BLOOD NON ADD-ON Fi nal Result Performing Organization Address City/[facility]/ZIP Co de Phone Number [facility] [address] [place] [address], [facility] [address] [place] [address] * DX Chest 1 View (07/15/2024 4:51 PM GARLAND MACHINE OPERATOR) Anatomical Region Laterality Modality Chest, Thoracic RST LOS, Tho racic ARZ LOS, Thoracic FLA LOS N/A Digital Radiography Impressions 07/15/2024 4:59 PM GARLAND MACHINE OPERATOR Negative for postoperative purposes. Left thoracotomy with 2 left chest tubes. Small left-sided pneumothorax. New left perihilar consolidation/atelectasis since 07/13/2024. Increased bibasilar consolidation/atelectasis. Very low lung volumes accentuate heart size and bronchovascular markings. Narrative 07/15/2024 4:59 PM GARLAND MACHINE OPERATOR EXAM: DX CHEST 1 VIEW Procedure [...] Culture, Aerobic + Susceptibility (07/15/2024 4:00 PM GARLAND MACHINE OPERATOR) Bacterial Culture, Aerobic + Susc No growth after 5 days of incubation. 07/20/2024 7:42 AM GARLAND MACHINE OPERATOR DTL Tissue (Pleura, Left) 07/15/2024 4:00 PM GARLAND MACHINE OPERATOR us Patrick Mtz M.D., Ph.D. LAB MICROBIOLOGY - GENE RAL ORDERABLES Final Result [facility] [address] [place] [address], [facility] [address] [place] [address] * Actinomyces Culture (07/15/2024 4:00 PM GARLAND MACHINE OPERATOR) Actinomyces Culture No growth after 14 days of incubation . 07/29/2024 7:33 AM GARLAND MACHINE OPERATOR DTL Tissue (Pleura, Left) 07/15/2024 4:00 PM GARLAND MACHINE OPERATOR us Patrick Mtz M.D., Ph.D. LAB MICROBIOLOGY - GENE RAL ORDERABLES Final Result [facility] [address] [place] [address], [facility] [address] [place] [address] * Mycobacterial Culture (07/15/2024 4:00 PM GARLAND MACHINE OPERATOR) Mycobacterial Culture No growth after 42 days of incubation . 08/27/2024 1:02 AM GARLAND MACHINE OPERATOR DTL Tissue (Pleura, Left) 07/15/2024 4:00 PM GARLAND MACHINE OPERATOR Result Emma Mtz M.D., Ph.D. LAB MICROBIOLOGY - GENE RAL ORDERABLES Final Result [facility] [address] [place] [address], [facility] [address] [place] [address] * Fungal Smear (07/15/2024 4:00 PM GARLAND MACHINE OPERATOR) Fungal Smear Negative. 07/16/2024 8:52 AM GARLAND MACHINE OPERATOR DTL Tissue (Pleura, Left) 07/15/2024 4:00 PM GARLAND MACHINE OPERATOR Result Emma Mtz M.D., Ph.D. LAB MICROBIOLOGY - GENE RAL ORDERABLES Final Result [facility] [address] [place] [address], [place] [facility] [address] [place] [address] * Legionella Culture (07/15/2024 4:00 PM GARLAND MACHINE OPERATOR) Legionella Culture No growth of Legionella species after 7 days of incubation 07/22/2024 8:16 AM GARLAND MACHINE OPERATOR DTL Tissue (Pleura, Left) 07/15/2024 4:00 PM GARLAND MACHINE OPERATOR us Patrick Mtz M.D., Ph.D. LAB MICROBIOLOGY - GENE RAL ORDERABLES Final Result [facility] [address] [place] [address], [facility] [address] [place] [address] * Acid Fast Smear for Mycobacterium (07/15/2024 4:00 PM GARLAND MACHINE OPERATOR) Acid Fast Smear For Mycobacterium Negative. 07/15/2024 10:18 PM GARLAND MACHINE OPERATOR DT Tissue (Pleura, Left) 07/15/2024 4:00 PM GARLAND MACHINE OPERATOR us Patrick Mtz M.D., Ph.D. LAB MICROBIOLOGY - GENE RAL ORDERABLES Final Result Performing Organization Address City/[facility]/ZIP Co de Phone Number [facility] [address] [place] [address], [facility] [address] [place] [address] * Gram Stain (07/15/2024 4:00 PM GARLAND MACHINE OPERATOR) Gram Stain No organisms seen. White blood cells, Many 07/15/2024 10:18 PM GARLAND MACHINE OPERATOR DTL Tissue (Pleura, Left) 07/15/2024 4:00 PM GARLAND MACHINE OPERATOR us Patrick Mtz M.D., Ph.D. LAB MICROBIOLOGY - GENE RAL ORDERABLES Final Result [facility] [address] [place] [address], [facility] [address] [place] [address] * Fungal Culture, Routine (07/15/2024 4:00 PM GARLAND MACHINE OPERATOR) Fungal Culture, Routine No growth after 24 days of incubation. 08/09/2024 1:02 AM GARLAND MACHINE OPERATOR DTL Tissue (Pleura, Left) 07/15/2024 4:00 PM GARLAND MACHINE OPERATOR us Patrick Mtz M.D., Ph.D. LAB MICROBIOLOGY - GENE RAL ORDERABLES Final Result Performing Organization Address City/[facility]/ZIP Co de Phone Number [facility] [address] [place] [address], [facility] [address] [place] [address] * Bacterial Culture, Anaerobic + Susceptibility (07/15/2024 4:00 PM GARLAND MACHINE OPERATOR) Bacterial Culture, Anaerobic + Susc No growth after 14 days of incubation. 07/29/2024 7:33 AM GARLAND MACHINE OPERATOR DTL Tissue (Pleura, Left) 07/15/2024 4:00 PM GARLAND MACHINE OPERATOR us Patrick Mtz M.D., Ph.D. LAB MICROBIOLOGY - GENE RAL ORDERABLES Final Result Performing Organization Address City/[facility]/ZIP Co de Phone Number [facility] [address] [place] [address], [facility] [address] [place] [address] * Bacterial Culture, Aerobic + Susceptibility (07/15/2024 2:24 PM GARLAND MACHINE OPERATOR) Bacterial Culture, Aerobic + Susc No growth after 5 days of incubation. 07/20/2024 7:42 AM GARLAND MACHINE OPERATOR DTL Fluid (Pleural Fluid, Left) 07/15/2024 2:24 PM GARLAND MACHINE OPERATOR Narrative [facility] - 07/20/2024 7:42 AM GARLAND MACHINE OPERATOR Bacterial Culture: Placed in Bactec aerobic and Bactec anaerobic bottles us Patrick Mtz M.D., Ph.D. LAB MICROBIOLOGY - GENE RAL ORDERABLES Final Result [facility] [address] [place] [address], [facility] [address] [place] [address] * Mycobacterial Culture (07/15/2024 2:24 PM GARLAND MACHINE OPERATOR) Mycobacterial Culture No growth after 42 days of incubation . 08/27/2024 1:02 AM GARLAND MACHINE OPERATOR DTL Fluid (Pleural Fluid, Left) 07/15/2024 2:24 PM GARLAND MACHINE OPERATOR Narrative [facility] - 08/27/2024 1:02 AM GARLAND MACHINE OPERATOR Bacterial Culture: Placed in Bactec aerobic and Bactec anaerobic bottles us Patrick Mtz M.D., Ph.D. LAB MICROBIOLOGY - GENE RAL ORDERABLES Final Result Performing Organization Address City/[facility] Co de Phone Number [facility] [address] [place], [place] [id number], [facility] [address] [place] [address] * Fungal Smear (07/15/2024 2:24 PM GARLAND MACHINE OPERATOR) Fungal Smear Negative. 07/15/2024 7:25 PM GARLAND MACHINE OPERATOR DTL Fluid (Pleural Fluid, Left) 07/15/2024 2:24 PM GARLAND MACHINE OPERATOR Narrative [facility] - 07/15/2024 7:25 PM GARLAND MACHINE OPERATOR Bacterial Culture: Placed in Bactec aerobic and Bactec anaerobic bottles us Patrick Mtz M.D., Ph.D. LAB MICROBIOLOGY - GENE RAL ORDERABLES Final Result [facility] [address] [place] [address], [facility] [address] [place] [address] * Acid Fast Smear for Mycobacterium (07/15/2024 2:24 PM GARLAND MACHINE OPERATOR) Acid Fast Smear For Mycobacterium Negative. 07/15/2024 9:24 PM GARLAND MACHINE OPERATOR DTL Fluid (Pleural Fluid, Left) 07/15/2024 2:24 PM GARLAND MACHINE OPERATOR Narrative [facility] - 07/15/2024 9:24 PM GARLAND MACHINE OPERATOR Bacterial Culture: Placed in Bactec aerobic and Bactec anaerobic bottles us Patrick Mtz M.D., Ph.D. LAB MICROBIOLOGY - GENE RAL ORDERABLES Final Result Performing Organization Address City/[facility]/ZIP Co de Phone Number [facility] [address] [place] [address], [facility] [address] [place] [address] * Gram Stain (07/15/2024 2:24 PM GARLAND MACHINE OPERATOR) Gram Stain No organisms seen. White blood cells, Moderate 07/15/2024 8:02 PM GARLAND MACHINE OPERATOR DTL Fluid (Pleural Fluid, Left) 07/15/2024 2:24 PM GARLAND MACHINE OPERATOR [facility] - 07/15/2024 8:02 PM GARLAND MACHINE OPERATOR Bacterial Culture: Placed in Bactec aerobic and Bactec anaerobic bottles us Patrick Mtz M.D., Ph.D. LAB MICROBIOLOGY - GENE RAL ORDERABLES Final Result Performing Organization Address City/[facility]/ZIP Co de Phone Number [facility] [address] [place] [address], [facility] [address] [place] [address] * Fungal Culture, Routine (07/15/2024 2:24 PM GARLAND MACHINE OPERATOR) Fungal Culture, Routine No growth after 24 days of incubation. 08/09/2024 1:02 AM GARLAND MACHINE OPERATOR DTL Fluid (Pleural Fluid, Left) 07/15/2024 2:24 PM GARLAND MACHINE OPERATOR [facility] - 08/09/2024 1:02 AM GARLAND MACHINE OPERATOR Bacterial Culture: Placed in Bactec aerobic and Bactec anaerobic bottles us Patrick Mtz M.D., Ph.D. LAB MICROBIOLOGY - GENE RAL ORDERABLES Final Result Performing Organization Address City/[facility]/ZIP Co de Phone Number [facility] [address] [place] [address], [facility] DTL [facility] [address] [place] [address] * Type and Screen (with Reflex Antibody ID) (07/15/2024 7:50 AM GARLAND MACHINE OPERATOR) Pathologist [facility] ABORh AB Pos Not applicable 07/15/2024 8:36 AM GARLAND MACHINE OPERATOR STRM Antibody Screen Negative Negative 07/15/2024 8:51 AM GARLAND MACHINE OPERATOR STRM Type & Screen Expiration 07/18/2024 23:59 07/15/2024 8:36 AM GARLAND MACHINE OPERATOR STRM Testing Location [place] DEFAULT 07/15/2024 8:10 AM GARLAND MACHINE OPERATOR STRM Blood (Blood, Venous) 07/15/2024 7:50 AM GARLAND MACHINE OPERATOR 07/15/2024 8:10 AM GARLAND MACHINE OPERATOR us Jamie Kumar M.D. LAB BLOOD BANK TEST ORDERABLES F inal Result Performing Organization Address [facility] Co de Phone Number [facility] [address] [place] [address], [facility] STRM [facility] [address] [place] [address] * Staph aureus / MRSA, Nasal, PCR (07/14/2024 10:39 AM GARLAND MACHINE OPERATOR) [facility] Staphylococcus aureus, PCR Negative Negative 07/14/2024 12:55 PM GARLAND MACHINE OPERATOR DTL MRSA, PCR Negative Negative 07/14/2024 12:55 PM GARLAND MACHINE OPERATOR DTL Swab (Nares) 07/14/2024 10:3 9 AM GARLAND MACHINE OPERATOR 07/14/2024 11:06 AM GARLAND MACHINE OPERATOR us Patrick Mtz M.D., Ph.D. LAB MICROBIOLOGY - GENE RAL ORDERABLES Final Result [facility] [address] [place] [address], [facility] DTL [facility] [address] [place] [address] * (ABNORMAL) Basic Metabolic Panel (07/14/2024 4:09 AM GARLAND MACHINE OPERATOR) Potassium, S 3.9 3.6 - 5.2 mmol/L 07/14/2024 5:53 AM GARLAND MACHINE OPERATOR DTL Sodium, S 139 135 - 145 mmol/L 07/14/2024 5:53 AM GARLAND MACHINE OPERATOR DTL Chloride, S 103 98 - 107 mmol/L 07/14/2024 5:53 AM GARLAND MACHINE OPERATOR DTL Bicarbonate, S 22 22 - 29 mmol/L 07/14/2024 5:53 AM GARLAND MACHINE OPERATOR DTL Anion Gap 14 7 - 15 07/14/2024 5:53 AM GARLAND MACHINE OPERATOR DTL BUN (Blood Urea Nitrogen), S 10 6 - 21 mg/dL 07/14/2024 5:53 AM GARLAND MACHINE OPERATOR DTL Creatinine 0.57(L) 0.59 - 1.04 mg/dL 07/14/2024 5:53 AM GARLAND MACHINE OPERATOR DTL Estimated GFR (eGFR) >90 >=60 mL/min/BSA 07/14/2024 5:53 AM GARLAND MACHINE OPERATOR DTL Comment: Estimated GFR calculated using the 2020 CKD_EPI creatinine equation. Calcium, Total, S 9.1 8.6 - 10.0 mg/dL 07/14/2024 5:53 AM GARLAND MACHINE OPERATOR DTL Glucose, S 91 70 - 140 mg/dL 07/14/2024 5:53 AM GARLAND MACHINE OPERATOR DTL Blood (Blood, Venous) 07/14/2024 4:09 AM GARLAND MACHINE OPERATOR 07/14/2024 5:23 AM GARLAND MACHINE OPERATOR us Lopez Garvey M.D. LAB BLOOD ADD-ON Final Resul t [address] [address], [facility] [address] [place] [address] * DX Chest Portable 1 View (07/13/2024 9:07 PM GARLAND MACHINE OPERATOR) Anatomical Region Laterality Modality Chest, Thoracic RST LOS, Tho racic ARZ LOS, Thoracic FLA LOS N/A Digital Radiography Impressions 07/14/2024 7:27 AM GARLAND MACHINE OPERATOR No significant change since earlier today. Bibasilar atelectasis. Small left loculated pleural effusion. Hazy opacification in the bilateral lungs, left greater than right. No discernible pneumothorax. Mildly enlarged cardiomediastinal silhouette. Narrative 07/14/2024 7:27 AM GARLAND MACHINE OPERATOR EXAM: DX CHEST PORTABLE 1 VIEW Procedure Note Chaz Montelongo M.D. - 07/14/2024 EXAM: DX CHEST PORTABLE 1 VIEW IMPRESSION: No significant change since earlier today. Bibasilar atelectasis. Smallleft loculated pleural effusion. Hazy opacification in the bilaterallungs, left greater than right. No discernible pneumothorax. Mildlyenlarged cardiomediastinal silhouette. Lopez Garvey M.D. [facility] Final Result * (ABNORMAL) CBC without Differential (07/13/2024 8:14 PM GARLAND MACHINE OPERATOR) Hemoglobin 9.7(L) 11.6 - 15.0 g/dL 07/13/2024 9:24 PM GARLAND MACHINE OPERATOR DTL Hematocrit 30.1(L) 35.5 - 44.9 % 07/13/2024 9:24 PM GARLAND MACHINE OPERATOR DTL Erythrocytes 3.32(L) 3.92 - 5.13 x10(12)/L 07/13/2024 9:24 PM GARLAND MACHINE OPERATOR DTL MCV 90.7 78.2 - 97.9 fL 07/13/2024 9:24 PM GARLAND MACHINE OPERATOR DTL RBC Distrib Width 15.3 12.2 - 16.1 % 07/13/2024 9:24 PM GARLAND MACHINE OPERATOR DTL Platelet Count 788(H) 157 - 371 x10(9)/L 07/13/2024 9:24 PM GARLAND MACHINE OPERATOR DTL Leukocytes 17.4(H) 3.4 - 9.6 x10(9)/L 07/13/2024 9:24 PM GARLAND MACHINE OPERATOR DTL Blood (Blood, Venous) 07/13/2024 8:14 PM GARLAND MACHINE OPERATOR 07/13/2024 9:16 PM GARLAND MACHINE OPERATOR us Lopez Garvey M.D. LAB BLOOD ADD-ON Final Resul t [facility] [address] [place] [address], [place] DTL [facility] [address] [place] [address] documented in this encounter Visit Diagnoses Diagnosis [...] first dose New Bag 07/15/2024 5:12 PM GARLAND MACHINE OPERATOR 1,000 mg 400 mL/hr acetaminophen tablet 1,000 mg (TylenoL) 1,000 mg, oral, Every 6 hours, First dose on Mon07/13/24 at 2100 Given 07/20/2024 8:40 AM GARLAND MACHINE OPERATOR 1,000 mg Given 07/20/2024 2:56 AM GARLAND MACHINE OPERATOR 1,000 mg Given 07/19/2024 8:36 PM GARLAND MACHINE OPERATOR 1,000 mg bisacodyL suppository 10 mg [...] or split tablet. Given 07/20/2024 8:42 AM GARLAND MACHINE OPERATOR 150 mg Given 07/19/2024 8:39 AM GARLAND MACHINE OPERATOR 150 mg Given 07/18/2024 7:34 AM GARLAND MACHINE OPERATOR 150 mg buPROPion XL 24 hr tablet 300 mg (Wellbutrin XL) 300 mg, oral, Daily, First dose on Mon07/14/24 at 0900, Swallow whole. Do NOT crush, chew, or split tablet. Given 07/20/2024 8:41 AM GARLAND MACHINE OPERATOR 300 mg Given 07/19/2024 8:41 AM GARLAND MACHINE OPERATOR 300 mg Given 07/18/2024 7:36 AM GARLAND MACHINE OPERATOR 300 mg calcium carbonate chewable tablet [...] Mon07/14/24 at 2100 Given 07/19/2024 8:37 PM GARLAND MACHINE OPERATOR 4.5 mg Given 07/18/2024 9:23 PM GARLAND MACHINE OPERATOR 4.5 mg Given 07/17/2024 8:24 PM GARLAND MACHINE OPERATOR 4.5 mg cefTRIAXone in dextrose (iso osm) IVPB 2 g (Rocephin) 2 g, intravenous, at 200 mL/hr, Administer over 15 Minutes, Every 24 hours, First dose on Mon07/17/24 at 1600, Drug Monitoring Program: Pharmacist to adjust medication dosing based on indication and drug clearance factors., Indications: empyemaIndications:empyema New Bag 07/20/2024 8:43 AM GARLAND MACHINE OPERATOR 2 g 200 mL/hr New Bag 07/19/2024 11:52 AM GARLAND MACHINE OPERATOR 2 g 200 mL/hr New Bag 07/18/2024 4:31 PM GARLAND MACHINE OPERATOR 2 g 200 mL/hr D5W infusion [...] feeding administration instructions. Given 07/20/2024 8:40 AM GARLAND MACHINE OPERATOR 60 mg Given 07/19/2024 8:40 AM GARLAND MACHINE OPERATOR 60 mg Given 07/18/2024 7:35 AM GARLAND MACHINE OPERATOR 60 mg fentaNYL injection 25 mcg (Sublimaze) 25 mcg, intravenous, Every 2 min PRN, For pain 4 or greater (maximum 100 mcg). If max dose of Fentanyl is reached and if pain is greater than 4, discontinue Fentanyl: give Hydromorphone, Starting on Mon07/15/24 at 1145, PACU (only) Given 07/15/2024 5:47 PM GARLAND MACHINE OPERATOR 25 mcg Given 07/15/2024 5:31 PM GARLAND MACHINE OPERATOR 25 mcg Given 07/15/2024 5:24 PM GARLAND MACHINE OPERATOR 25 mcg heparin (porcine) injection 5,000 Units 5,000 Units, subcutaneous, Every 8 hours scheduled, First dose on Mon07/14/24 at 0400 Given 07/15/2024 9:27 PM GARLAND MACHINE OPERATOR 5,000 Units Left Lower Abdomen Given 07/14/2024 10:20 PM GARLAND MACHINE OPERATOR 5,000 Units Left Lower Abdomen Given 07/14/2024 2:32 PM GARLAND MACHINE OPERATOR 5,000 Units L eft Upper Arm (Back) heparin (porcine) injection 5,000 Units 5,000 Units, subcutaneous, Every 8 hours scheduled, First dose on Mon07/16/24 at 0600 Given 07/20/2024 5:49 AM GARLAND MACHINE OPERATOR 5,000 Units Right Upper Arm (Back) Given 07/19/2024 8:36 PM GARLAND MACHINE OPERATOR 5,000 Units L eft Upper Arm (Back) Given 07/19/2024 1:45 PM GARLAND MACHINE OPERATOR 5,000 Units L eft Upper Abdomen HYDROmorphone (PF) injection 0.2 mg (Dilaudid) 0.2 mg, intravenous, Every 1 hour PRN, severe pain or score 7-10 of 10, Starting on 07/13/24 at 1953 Given 07/18/2024 7:27 AM GARLAND MACHINE OPERATOR 0.2 mg Given 07/18/2024 2:43 AM GARLAND MACHINE OPERATOR 0.2 mg Given 07/17/2024 7:17 PM GARLAND MACHINE OPERATOR 0.2 mg HYDROmorphone (PF) injection 0.2 mg (Dilaudid) 0.2 mg, intravenous, Every 5 min PRN, moderate pain or score 4-6 of 10, severe pain or score 7-10 of 10, Starting on Mon07/15/24 at 1145, PACU (only), Up to maximum total dose of 2 mg Given 07/15/2024 6:18 PM GARLAND MACHINE OPERATOR 0.2 mg Given 07/15/2024 6:04 PM GARLAND MACHINE OPERATOR 0.2 mg HYDROmorphone-0.9 % NaCl 1 mg/mL METAL SPRAYER MACHINED PARTS bag (Dilaudid) [employer] Dose: 0.1 mg, [employer]ACH[employer] Lockout: 10 Minutes, Continuous Rate: 0 mg/hr, Four Hour Limit: 2 mg, intravenous, Continuous, Starting on Mon07/15/24 at 2245, Prescriber to manage. Administer with a compatible IV carrier fluid. Rate/Dose Verify 07/17/2024 3:41 AM GARLAND MACHINE OPERATOR Rate/Dose Verify 07/17/2024 12:00 AM GARLAND MACHINE OPERATOR Rate/Dose Verify 07/16/2024 8:18 PM GARLAND MACHINE OPERATOR ibuprofen tablet 400 mg 400 mg, oral, Every 6 hours PRN, moderate pain or score 4-6 of 10, severe pain or score 7-10 of 10, Starting on Mon07/19/24 at 2135, Take with food or milk if GI disturbances occur with use. Given 07/20/2024 5:49 AM GARLAND MACHINE OPERATOR 400 mg Given 07/19/2024 9:44 PM GARLAND MACHINE OPERATOR 400 mg ipratropium-albuteroL 0.5-2.5 mg/3 mL [...] additional analgesic benefit. Given 07/19/2024 5:46 AM GARLAND MACHINE OPERATOR 15 mg Given 07/18/2024 11:42 PM GARLAND MACHINE OPERATOR 15 mg Given 07/18/2024 12:28 PM GARLAND MACHINE OPERATOR 15 mg Lactated Ringer's 20 mL/hr, intravenous, Continuous, Starting on Mon07/15/24 at 1700, PACU & Post-Op Continued from OR 07/15/2024 5:12 PM GARLAND MACHINE OPERATOR 20 mL/hr 20 mL/hr lidocaine 5 % 1 patch (Lidoderm) 1 patch, transdermal, Administer over 12 Hours, Daily, First dose on 07/13/24 at 2030, Remove after 12 hours. Medication Applied 07/13/2024 8:35 PM GARLAND MACHINE OPERATOR 1 patch Flank lidocaine 5 % 1 patch (Lidoderm) 1 patch, transdermal, Administer over 12 Hours, Daily at bedtime, First dose (after last modification) on Mon07/14/24 at 2100, Remove after 12 hours. Medication Applied 07/19/2024 8:37 PM GARLAND MACHINE OPERATOR 1 patch Left Upper Abdomen Medication Applied 07/18/2024 9:23 PM GARLAND MACHINE OPERATOR 1 patch Other Medication Applied 07/17/2024 8:25 PM GARLAND MACHINE OPERATOR 1 patch Flank LORazepam tablet 0.5 [...] NOT refrigerate. New Bag 07/17/2024 5:40 AM GARLAND MACHINE OPERATOR 1,000 mg 260 mL/hr New Bag 07/16/2024 9:50 PM GARLAND MACHINE OPERATOR 1,000 mg 260 mL/hr New Bag 07/15/2024 8:18 PM GARLAND MACHINE OPERATOR 1,000 mg 260 mL/hr methocarbamoL tablet 500 mg (Robaxin) 500 mg, oral, 4 times daily PRN, muscle spasms, Starting on Mon07/17/24 at 1604 Given 07/20/2024 5:49 AM GARLAND MACHINE OPERATOR 500 mg Given 07/19/2024 6:05 PM GARLAND MACHINE OPERATOR 500 mg Given 07/19/2024 10:43 AM GARLAND MACHINE OPERATOR 500 mg metroNIDAZOLE tablet 500 mg (FlagyL) 500 mg, oral, 3 times daily, First dose on Mon07/17/24 at 2100, Drug Monitoring Program: Pharmacist to adjust medication dosing based on indication and drug clearance factors., Indications: empyemaIndications:empyema Given 07/20/2024 8:42 AM GARLAND MACHINE OPERATOR 500 mg Given 07/19/2024 8:37 PM GARLAND MACHINE OPERATOR 500 mg Given 07/19/2024 1:46 PM GARLAND MACHINE OPERATOR 500 mg NaCl 0.45 % infusion 50 mL/hr, intravenous, Continuous, Starting on Mon07/15/24 at 1915, 50 mL/hr until post-operative day one at 0800, then 20 mL/hr until post-operative day two at 0800, then discontinue when oral intake greater than 600 mL/hr and [employer] discontinued. Rate/Dose Verify 07/17/2024 12:00 AM GARLAND MACHINE OPERATOR 20 mL/hr 20 mL/hr New Bag 07/16/2024 10:14 PM GARLAND MACHINE OPERATOR 20 mL/hr 20 mL/hr Rate/Dose Verify 07/16/2024 8:18 PM GARLAND MACHINE OPERATOR 20 mL/hr 20 mL/h r NaCl 0.45 % infusion 20 mL/hr, intravenous, Continuous, Starting on Mon07/17/24 at 0830, While METAL [employer] running, discontinue if [employer] stopped Rate/Dose Verify 07/17/2024 12:00 PM GARLAND MACHINE OPERATOR 20 mL/hr 20 mL/hr New Bag 07/17/2024 8:10 AM GARLAND MACHINE OPERATOR 20 mL/hr 20 mL/hr NaCl 0.9% infusion [...] ondansetron before droperidol. Given 07/14/2024 3:56 AM GARLAND MACHINE OPERATOR 4 mg oxyCODONE IR tablet 10 mg (Roxicodone) 10 mg, oral, Every 4 hours PRN, severe pain or score 7-10 of 10, for breakthrough pain, Starting on 07/13/24 at 1953, Pain unrelieved by other oral analgesics. Given 07/20/2024 2:55 AM GARLAND MACHINE OPERATOR 10 mg Given 07/19/2024 3:03 AM GARLAND MACHINE OPERATOR 10 mg Given 07/18/2024 9:07 PM GARLAND MACHINE OPERATOR 10 mg oxyCODONE IR tablet 5 mg (Roxicodone) 5 mg, oral, Every 4 hours PRN, moderate pain or score 4-6 of 10, for breakthrough pain, Starting on 07/13/24 at 1953, Pain unrelieved by other oral analgesics. Given 07/20/2024 8:50 AM GARLAND MACHINE OPERATOR 5 mg Given 07/19/2024 6:05 PM GARLAND MACHINE OPERATOR 5 mg Given 07/19/2024 12:20 PM GARLAND MACHINE OPERATOR 5 mg piperacillin-tazobactam in dextrose (iso osm) IVPB 4.5 g (Zosyn) 4.5 g, intravenous, at 200 mL/hr, Administer over 0.5 Hours, Every 6 hours, First dose (after last modification) on 07/13/24 at 2100, Drug Monitoring Program: Pharmacist to adjust medication dosing based on indication and drug clearance factors., Indications: Respiratory tract infection, healthcare associatedIndications:Respiratory tract infection, healthcare associated New Bag 07/17/2024 2:23 PM GARLAND MACHINE OPERATOR 4.5 g 200 mL/hr New Bag 07/17/2024 8:11 AM GARLAND MACHINE OPERATOR 4.5 g 200 mL/hr New Bag 07/17/2024 3:41 AM GARLAND MACHINE OPERATOR 4.5 g 200 mL/hr polyethylene glycol powder packet 1 packet (Miralax) 1 packet, oral, Daily PRN, constipation, Starting on 07/13/24 at 1953, Dissolve in 240 mLs (8 ounces) of water prior to giving. Avoid mixing with starch-based thickened liquids. pregabalin capsule 200 mg (Lyrica) 200 mg, oral, 3 times daily, First dose on 07/13/24 at 2100 Given 07/20/2024 8:42 AM GARLAND MACHINE OPERATOR 200 mg Given 07/19/2024 8:37 PM GARLAND MACHINE OPERATOR 200 mg Given 07/19/2024 1:45 PM GARLAND MACHINE OPERATOR 200 mg prochlorperazine injection 5 mg (Compazine) 5 mg, intravenous, Every 6 hours PRN, nausea, vomiting, Starting on 07/13/24 at 1953 sennosides tablet 17.2 mg (Senokot) 17.2 mg, oral, Daily, First dose on Mon07/14/24 at 0900, Do not give if patient has diarrhea Given 07/19/2024 8:41 AM GARLAND MACHINE OPERATOR 17.2 mg Given 07/18/2024 7:35 AM GARLAND MACHINE OPERATOR 17.2 mg Given 07/17/2024 8:09 AM GARLAND MACHINE OPERATOR 17.2 mg sodium chloride 0.9 % [...] mL per lumen. Given 07/20/2024 9:12 AM GARLAND MACHINE OPERATOR 10 mL Given 07/19/2024 9:39 AM GARLAND MACHINE OPERATOR 10 mL Given 07/18/2024 9:24 PM GARLAND MACHINE OPERATOR 10 mL sodium chloride 0.9 % [...] healthcare associated New Bag 07/17/2024 8:10 AM GARLAND MACHINE OPERATOR 1,900 mg 260 mL/hr New Bag 07/16/2024 8:18 PM GARLAND MACHINE OPERATOR 1,900 mg 260 mL/hr vancomycin in dextrose [...] healthcare associated New Bag 07/16/2024 11:35 AM GARLAND MACHINE OPERATOR 1,500 mg 200 mL/hr New Bag 07/15/2024 10:46 PM GARLAND MACHINE OPERATOR 1,500 mg 200 mL/hr New Bag 07/15/2024 11:06 AM GARLAND MACHINE OPERATOR 1,500 mg 200 mL/hr vancomycin in NaCl [...] healthcare associated New Bag 07/14/2024 9:47 AM GARLAND MACHINE OPERATOR 1,000 mg 200 mL/hr New 07/13/2024 9:22 PM GARLAND MACHINE OPERATOR 1,000 mg 200 mL/hr documented in this encounter Active and Recently Administered Medications Times are shown in GARLAND MACHINE OPERATOR. Scheduled Medication Order 07/18/2024 07/19/2024 07/20/2024 acetaminophen tablet 1,000 mg (TylenoL) 1,000 mg, oral, Every 6 hours, First dose on 07/13/24 at 2100 0242 (Given - Provider: Dandre Hollis RDmitryN.)0780 (Given - Provider: Candi Leonard RDmitryN.)141 (Given - Provider: Roxanne PriestN.)194 (Given - Provider: Myke Alexander Noreen) 0303 [...] R.N.) 0546 (Given - Provider: Myke Alexander RAlexi.) LORazepam tablet 0.5 mg (Ativan) [...] Cordon R.N.)1805 (See Alternative - Provider: Malcolm Codron R.N.) 0255 (Given - Provider: Isis Flaherty [...] Depression Total Score: 22 025 7:19 PM GARLAND MACHINE OPERATOR documented as of this encounter Care Teams Float Builder Relationship Specialty Start Date End Date Prudence Mena MPAS, P.A.-C. [address] [place] [address] [place] [address] PCP - General Internal Medicine 02/08/24 documented as of this encounter
[2024-08-28 22:02] LABS: PCR FLU A Negative PCR FLU A (Negative); PCR FLU B Negative PCR FLU B (Negative); PCR RSV Negative PCR RSV (Negative); SARS PCR* Negative SARS-CoV-2 (Negative)
--- OUTSIDE RECORDS SUMMARY | 2024-08-28 22:02 | XMS_ITS | Encounter Summary ---
Author Organization [facility] Address [address] [place] [address] Care Team Providers Care Radiologic Technologist Name Role Phone Prudence Mena P.A.-C. Primary Care Pro vider Encounter Details Date Type Department Care Team (Late st Contact Info) Description 07/26/2024 Results Follow-Up [facility] [address] [place] [id number] Lindsay Mejias, R.N. Sedimentation Rate Social History Tobacco Use Types Packs/Day Years Used Date Smoking Tobacco: Former Cigarettes 1.5 0.2 S tarted: 06/21/2024 Passive Smoke Exposure: Past Smokeless Tobacco: Never Alcohol Use Standard Drinks/Week Comments Yes 0 (1 standard drink = 0.6 oz pur e alcohol) socially [facility] Utilities Answer Date Recorded In the past 12 months has e [employer], gas, oil, or water Pulsity threatened to shut off services in your [...] How often do you attend voodoo or taoist serv ices? Never 07/27/2022 Do [...] PHQ-2 Score 6 07[facility]/2024 [facility] - Occupational Stress Questionnaire Answer Date Recorded [...] st Contact Info) Description 08/30/2024 9:00 AM PNEUMATIC TUBE REPAIRER Office Visit Department of Community Internal Medicine in [place], [place] [address] [facility] [place] [phone] Prudence Mena MPAS, P.A.-C. [address] [place] [phone] documented as of this encounter Visit Diagnoses Not on filedocumented in this encounter Additional Health Concerns Assessment Noted Time PHQ-9 Depression Total Score: 22 025 7:19 PM PNEUMATIC TUBE REPAIRER documented as of this encounter Care Teams Radiologic Technologist Relationship Specialty Start Date End Date Prudence Mena MPAS, P.A.-C. [address] [place] [address] PCP - General Internal Medicine 02/08/24 documented as of this encounter
--- OUTSIDE RECORDS SUMMARY | 2024-08-28 22:02 | XMS_ITS | Encounter Summary ---
Author Organization [facility] Address [address] [place] [id number] Care Team Providers Care Flight Engineer Instructor Name Role Phone Prudence Mena P.A.-C. Primary Care Pro vider Reason for Visit * Reason Comments Outpatient Infusion Rocephin Encounter Details Date Type Department Care Team (Late st Contact Info) Description 07/28/2024 9:00 AM [employer] ATTENDANT Infusion Department of Infusion Therapy in [address] [phone] Melinda Isaac, FRED, C.N.P. [address] [place] [phone] Empyema Pleural (HCC) (Primary Dx) Social History [...] How often do you attend mormonism or judaism serv ices? Never 07/27/2022 Do [...] Answer Date Recorded PHQ-2 Score 6 07/10/2024 [facility] Occup[facility] ional [facility] - Occupational Stress [...] Comments Blood Pressure 138/86 07/28/2024 9:13 AM [employer] ATTENDANT Pulse 112 07/28/2024 9:13 AM [employer] ATTENDANT Temperature 35.5 C (95.9 F) 07/28/2024 9:13 AM [employer] ATTENDANT Respiratory Rate 18 07/28/2024 9:13 AM [employer] ATTENDANT Oxygen Saturation 94% 07/28/2024 9:13 AM [employer] ATTENDANT Inhaled Oxygen Concentration - - Weight - - Height - - Body Mass Index - - documented in this encounter Plan of Treatment Upcoming Encounters Date Type Department Care Team (Late st Contact Info) Description 08/30/2024 9:00 AM [employer] ATTENDANT Office Visit Department of Community Internal Medicine in [place], [place] [address] [facility] [place] [phone] Prudence Mena MPAS, P.A.-C. [address] [place] [phone] documented as of this encounter Visit Diagnoses [...] infection, community acquired Given 07/28/2024 9:14 AM [employer] ATTENDANT 2 g sodium chloride 0.9 % injection 10-30 mL 10-30 mL, intravenous, As needed, line care, Starting on 07/28/24 at 0905, Prior to and following infusion, between multiple consecutive infusions.10 mL to each lumen.Indications:Empyema Pleural (HCC) Given 07/28/2024 9:23 AM [employer] ATTENDANT 10 mL Given 07/28/2024 9:15 AM [employer]ING ATTENDANT 10 mL documented in this encounter Additional Health Concerns Assessment Noted Time PHQ-9 Depression Total Score: 22 025 7:19 PM [employer] ATTENDANT documented as of this encounter Care Teams Flight Engineer Instructor Relationship Specialty Start Date End Date Prudence Mena MPAS, P.A.-C. [address] [facility] [place] [phone] PCP - General Internal Medicine 02/08/24 documented as of this encounter
--- OUTSIDE RECORDS SUMMARY | 2024-08-28 22:02 | XMS_ITS | Encounter Summary ---
Author Organization [facility] Address [address] [place] [id number] Care Team Providers Care Chief Pharmacist Name Role Phone Prudence Mena P.A.-C. Primary Care Pro vider Reason for Visit * Auth/Cert (Routine) Specialty Diagnoses / Procedures Referred By Contac t Referred To Contact Diagnoses Empyema Pleural (HCC) Pleuritic chest pain. empyema Procedures INPT Referral ID Status Reason Start Date Expiration Date Visits Re quested Visits Authorized [id number] 1 1 Encounter Details Date Type Department Care Team (Late st Contact Info) Description 07/15/2024 1:10 PM PORTABLE POWER TOOL REPAIRER - 07/15/2024 4:33 PM PORTABLE POWER TOOL REPAIRER Surgery RST ROMB MAIN OR [address] [place] [phone] Patrick Mtz M.D., Ph.D. [address] [place] [phone] ROBOTIC THORACOSCOPY, DECORTICATION, PLEURODESIS, PROCEED INDICATED. Social [...] How often do you attend evangelical or yarsanism serv ices? Never 07/27/2022 Do [...] Answer Date Recorded PHQ-2 Score 6 07/10/2024 [facility] - Occupational Stress Questionnaire [...] Comments Blood Pressure 132/87 07/15/2024 8:30 AM PORTABLE POWER TOOL REPAIRER Pulse 99 07/15/2024 8:30 AM PORTABLE POWER TOOL REPAIRER Temperature 36.8 C (98.2 F) 07/15/2024 8:30 AM PORTABLE POWER TOOL REPAIRER Respiratory Rate 22 07/15/2024 8:30 AM PORTABLE POWER TOOL REPAIRER Oxygen Saturation 98% 07/15/2024 8:30 AM PORTABLE POWER TOOL REPAIRER Inhaled Oxygen Concentration - - Weight 96 kg (211 lb 10.3 oz) 07/13/2024 8:00 PM PORTABLE POWER TOOL REPAIRER Height - - Body Mass Index 37.53 07/17/2024 3:00 PM PORTABLE POWER TOOL REPAIRER documented in this encounter Discharge Summaries * Shahram Abernathy, FRED, C.N.P., M.S. - 07/20/2024 10:16 AM CST DISCHARGE SUMMARY BRIEF OVERVIEW Hospital: [facility] Discharge Provider: Patrick Mtz M.D. Primary Team: [facility] Thoracic Surgery - [place] Primary Care Providers: Prudence Mena MPAS, P.A.-CDmitry (General) [address] [place] [phone] Primary Care Provider Primary Care Provider Other [...] INDICATED. Patrick Mtz M.D., Ph.D.Catrina Sutton M.D. [facility] ROMB OR DISCHARGE DISPOSITION Home or [...] with any questions or issues. Admin Ast: [phone] (M-F 8 AM to 5 PM) Goodwill Representative: [phone] (Thoracic Surgery [facility] for Nights & Weekend Urgent Issues) Appointments: [phone] INFECTIOUS DISEASES THERAPY RECOMMENDATIONS Antimicrobial plan: Patient [...] of Infectious Diseases OPAT monitoring program at [phone]. Should patient be enrolled in OPAT/COPAT program: [...] discharge services today: greater than 30 minutes. ABLE POWER TOOL REPAIRER documented in this encounter Discharge Instructions * Attachments The following attachments cannot be sent through Care Everywhere. * Acute Pain and the Healing Process * Ceftriaxone (By injection) (Danish) * Ibuprofen (By mouth) (Danish) * Methocarbamol (By mouth) (Danish) * Metronidazole (By mouth) (Danish) * Oxycodone, Rapid Release (By mouth) (Danish) * Laxative, Stimulant (By mouth) (Danish) documented in this encounter Medications at Time [...] a venous catheter daily for 17 days. [facility] 07/19/2024 5 methocarbamoL (Robaxin) 500 mg tablet Take 1 tablet (500 mg total) by mouth 3 (three) times a day as needed for muscle spasms. 45 tablet 07/20/2024 10:13 AM PORTABLE POWER TOOL REPAIRER 07/19/2024 5 metroNIDAZOLE (FlagyL) 500 mg tabletIndication s:Empyema Take 1 tablet (500 mg total) by mouth 3 (three) times a day for 17 days Indications: Empyema. 51 tablet 07/20/2024 10:13 AM PORTABLE POWER TOOL REPAIRER 07/19/2024 5 nitrofurantoin (MACRODANTIN) 50 mg capsule [...] Pain Exception. 28 tablet 07/20/2024 10:13 AM PORTABLE POWER TOOL REPAIRER 07/19/2024 5 sennosides (senna) 8.6 mg tablet [...] Discharge today Patient discussed with Dr. Mtz. ABLE POWER TOOL REPAIRER * Denny Ann R.R.T., L.R.T. - 07/20/2024 [...] Denny Ann R.R.T., L.R.T. 07/20/24 7:32 AM PORTABLE POWER TOOL REPAIRER ABLE POWER TOOL REPAIRER * Kusum Urena R.R.T., L.R.T. - 07/19/2024 [...] tolerated. Electronically signed by: Kusum Urena R.R.T., MarcellusRDmitryTDmitry 07/19/24 1:54 PM PORTABLE POWER TOOL REPAIRER ABLE POWER TOOL REPAIRER * Lopez Garvey M.D. - 07/19/2024 12:18 [...] Encourage ambulance Patient discussed with Dr. Mtz. ABLE POWER TOOL REPAIRER * Arlyn Starr R.R.T., L.R.T. - 07/18/2024 [...] Arlyn Starr R.R.T., Melida.R.TDmitry 07/18/24 12:39 PM PORTABLE POWER TOOL REPAIRER ABLE POWER TOOL REPAIRER ABLE POWER TOOL REPAIRER * Anna Wheeler - 07/18/2024 12:26 PM CST Clinical Nutrition: Initial Assessment RECOMMENDATIONS REQUIRING MD/PROVIDER ORDER No changes at this time; continue current nutrition orders For questions about patient's nutritional care please contact pager [phone] on weekdays or [phone] on weekends/holidays. NUTRITION ASSESSMENT: Ms. Kumar is [...] patient report. ESTIMATED NEEDS: Total Calorie Needs: 7206-0649 calories/day Method to Estimate Energy Needs: Taylor-St Jeor ( ) Weight Used for Equation Calculations: 96 kg Total Protein Needs: 77 - 96 grams/day Method to Estimate Protein Needs (g/kg): 0.8 - 1 gm/kg Weight Used to Calculate Protein Needs (Kg): 96 kg Nutrition Diagnosis: Clinical risk not noted Nutrition Intervention: Medical food supplement Monitoring/Evaluation: Nutrition parameter to monitor: Meals/Supplement Intake, Weight Status ABLE POWER TOOL REPAIRER * Patrick Mtz M.D., Ph.D. - 07/18/2024 10:56 AM CST I visited face to face with the patient on NT10 this morning. We will obtain an updated chest x-raywith a view towards removing 1 of her chest tubes today. We will follow the recommendations of our Infectious Disease colleagues regarding ongoing antibiotic management. ABLE POWER TOOL REPAIRER * Magno Fisher, Ph.D. - 07/18/2024 8:59 [...] Encourage ambulance Patient discussed with Dr. Mtz. ABLE POWER TOOL REPAIRER * Kayleigh Small M.D. - 07/18/2024 8:24 [...] Please page the ICU-ID service pager at [phone] with questions. Thank you for the consultation. Discussed with Dr. Camejo, ID residential solar sales consultant and the primary team. Kayleigh [...] of Infectious Diseases OPAT monitoring program at [phone]. Should patient be enrolled in OPAT/COPAT program: [...] Camejo M.D., M.S. at 07/18/2024 1:06 PM PORTABLE POWER TOOL REPAIRER ABLE POWER TOOL REPAIRER ABLE POWER TOOL REPAIRER Associated attestation - Hay Camejo M.D., M.S. - 07/18/2024 1:06 PM PORTABLE POWER TOOL REPAIRER I saw and evaluated the patient, participating [...] Seen Next by RT Patient exercised using [employer]step Total Body Recumbent Stepper for 7 minutes [...] Montrell Garland R.R.T., Christian 07/17/24 1:04 PM PORTABLE POWER TOOL REPAIRER ABLE POWER TOOL REPAIRER * Lopez Garvey M.D. - 07/17/2024 9:19 [...] spirometer Discussed with Dr. Smith Garvey MD ABLE POWER TOOL REPAIRER * Jarocho Belle, R.Ph. - 07/16/2024 1:12 PM CST Pharmacokinetic Consult - Vancomycin Dosing Melinda Kumar is a 39 y.o. female who has received a pharmacy consult for vancomycin therapyfor dose optimization and monitoring. Indication: Respiratory tract infection, healthcare associated Goal trough: 10-15 mcg/mL OBJECTIVE There is no height or weight on file to calculate BMI. [place] body weight: 55.1 kg Adjusted ideal body [...] patient's clinical progress daily. Jarocho Belle, R.Ph. ABLE POWER TOOL REPAIRER * Gema Srinivasan R.R.T., L.R.T. - 07/16/2024 [...] Gema Srinivasan R.R.T., L.R.T. 07/16/24 11:34 AM PORTABLE POWER TOOL REPAIRER ABLE POWER TOOL REPAIRER * Lopez Garvey M.D. - 07/16/2024 9:46 AM CST Ms. Kumar is POD 1 from left robotic decortication, 2 chest tubes were left in place Patient is afebrile and hemodynamically stable. She had a ASSEMBLER CORNCOB PIPES started overnight for pain control. She otherwise [...] today Discussed with Dr. Smith Garvey MD ABLE POWER TOOL REPAIRER * Lopez Garvey M.D. - 07/14/2024 9:00 [...] tomorrow Discussed with Dr. Smith Garvey MD ABLE POWER TOOL REPAIRER * Maxim Freed Pharm.D., R.Ph., BCPS - [...] for medicationuse optimization Ken Freed PharmDmitryD., R.Ph., [facility] Admission Medication History Note Adherence issues: Ran out of chronic suppression nitrofurantoin more than one month ago Medication list source: Patient, recent filling Hx Medication related information: pt is ok to do without dextroamphetamine 15 mg ER and Adderall 10 mg while hospitalized Prior to Admission Medications Med List Status: Pharmacy Complete Set By: Maxim Freed Pharm.D., R.Ph., [facility] at 07/14/2024 8:25AM Taking? Last Dose Informant [...] DME Order Patient stated she needs to bead picker DULoxetine (CYMBALTA) [address] capsule [...] information available at the time of documentation. ABLE POWER TOOL REPAIRER documented in this encounter H&P Notes * [...] M.D., Ph.D.; Location: [facility] OR HYDRODISTENSION BLADDER WITH CYSTOSCOPY N/A [...] DME Order Patient stated she needs to bead picker), Disp: 1 each, Rfl: 0 DULoxetine [...] room Discussed with Dr. Smith Garvey MD ABLE POWER TOOL REPAIRER documented in this encounter Procedure Notes * [...] with ultrasound and measured to ensure appropriate wyrlddrx-qz-gfin ratio of 45% or less: Right Basilic [...] to release the adhesive from the skin. [email or web address]/products/[email or web address] ABLE POWER TOOL REPAIRER documented in this encounter Consult Notes * Karen Wilkerson M.SAnton., HamletS.W. - 07/18/2024 12:33 PM CSTAssociated Order(s): IP CONSULT TO CARE MANAGEMENT Psychosocial Assessment SUBJECTIVE ASSESSMENT INFORMATION Referral Data Referral Source: IT SALES EXECUTIVE/PA Referral Reason: Psychosocial assessment, Discharge Planning Previous Assessment: No Customer Advocate Services Used: No Primary Language: Danish Customer Advocate Services Used: No Sexuality/Pronoun: Straight / Person(s) [...] PRESENT ILLNESS Patient is currently hospitalized at [facility] on [facility] [address]. Patient shares that [...] functioning Family support OBJECTIVE FINANCES/INSURANCE Primary insurance: [employer] HMO Secondary insurance: N/A Financial concerns: No ADVANCE DIRECTIVES Legal Decision Maker: Self Advance Directives: N/A Advance Directives Status: N/A BASELINE FUNCTIONAL STATUS Baseline Activities of Daily Living Mobility: Independent Dressing: Independent Feeding: Independent Bathing: Independent Grooming: Independent Toileting: Independent Behavior: Pleasant, Calm, Appropriate, Oriented, Cooperative Communication: Can write, Talks, Understands speaking, Understands Danish Shopping: Needs assistance Medication Management: Independent Housekeeping: [...] current substance use. ASSESSMENT / PLAN DISCUSSION Bear Keeper met with patient in hospital room to provide a supportive visit, complete a psychosocial, and assist with discharge needs. 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 Patient expressed understanding of the purpose [...] our ownership and financial relationship of the [facility] beds, home health, and hospice agencies. Reviewed [facility] medicaid insurance coverage and provided in-network options. Patient anticipates discharging home once medically ready without patient infusions at [facility]. Patient reports no further questions currently. Encouraged patient to contact Bear Keeper should additional needs arise. trailhead construction worker returned to inform patient that critical access hospital is not open on weekends and that she willneed to go to [place]. Patient was agreeable to this. Patient's mother was in the room and shared that she had a question for manager social services. Patient's mother asked about help with cleaning around the home. trailhead construction worker explained the [place] through [...] not provided due to not being a [place] resident and/or 60 + years old. PLAN Outpatient infusions will be obtained through: [facility] Monday- Monday and [employer] [facility] on Weekends. Phone for scheduling- [phone] Phone for [phone] NURSING: - Call to arrange for the patient???s first visit Prior to 3 pm Monday if Discharging over the weekend. - Adjust the dosing schedule to accommodate [facility] schedule. - Complete documentation in the Discharge Navigator including Nursing Report Info and Facility/NextLevel of Care Info PRIMARY SERVICE: - Complete infusion therapy and lab orders in [facility] as needed. - Identify the continuing care provider, who will follow the patient while receiving outpatient infusion at [facility]. Social Work : -Will continue to follow. Anticipated barriers to the transition of care/plan: None identified at this time. Uri Gonzales., L.I.C.S.W. 07/18/2024 ABLE POWER TOOL REPAIRER ABLE POWER TOOL REPAIRER * Kayleigh Small M.D. - 07/17/2024 10:59 [...] empyema. Interval history includes initial presentation to [facility] ED 06/26/2024 and was prescribed azithromycin and prednisone for walking pneumonia. She was admitted to [facility] 06/30/2024-07/04/2024 with sepsis secondary [...] effusion and empyema. [facility] She underwent left [...] - Date/Time Bacterial Culture, Anaerobic + Susceptibility [[id number]] Collected: 07/15/24 1600 Lab Status: Preliminary result Specimen: Tissue from Pleura, Left Updated: 07/17/24 0739 Bacterial Culture, Anaerobic + Susc No growth to date. Fungal Culture, Routine [[id number]] Collected: 07/15/24 1600 Lab Status: In process Specimen: Tissue from Pleura, Left Updated: 07/15/24 1720 Gram Stain [[id number]] Collected: 07/15/24 1600 Lab Status: Final result Specimen: Tissue from Pleura, Left Updated: 07/15/24 2218 Gram Stain No organisms seen. White blood cells, Many Acid Fast Smear for Mycobacterium [[id number]] Collected: 07/15/24 1600 Lab Status: Final result Specimen: Tissue from Pleura, Left Updated: 07/15/24 2218 Acid Fast Smear For Mycobacterium Negative. Legionella Culture [[id number]] Collected: 07/15/24 1600 Lab Status: Preliminary result Specimen: Tissue from Pleura, Left Updated: 07/17/24 0754 Legionella Culture No growth to date. Fungal Smear [[id number]] Collected: 07/15/24 1600 Lab Status: Final result Specimen: Tissue from Pleura, Left Updated: 07/16/24 0852 Fungal Smear Negative. Mycobacterial Culture [[id number]] Collected: 07/15/24 1600 Lab Status: In process Specimen: Tissue from Pleura, Left Updated: 07/15/24 1720 Actinomyces Culture [[id number]] Collected: 07/15/24 1600 Lab Status: Preliminary result Specimen: Tissue from Pleura, Left Updated: 07/17/24 0739 Actinomyces Culture No growth to date. Bacterial Culture, Aerobic + Susceptibility [[id number]] Collected: 07/15/24 1600 Lab Status: Preliminary result Specimen: Tissue from Pleura, Left Updated: 07/17/24 0847 Bacterial Culture, Aerobic + Susc No growth to date. Fungal Culture, Routine [[id number]] Collected: 07/15/24 1424 Lab Status: In process Specimen: Pleural Fluid, Left Updated: 07/15/24 1519 Narrative: Bacterial Culture: Placed in Bactec aerobic and Bactec anaerobic bottles Gram Stain [[id number]] Collected: 07/15/24 1424 Lab Status: Final result Specimen: Pleural Fluid, Left Updated: 07/15/24 2002 Gram Stain No organisms seen. White blood cells, Moderate Narrative: Bacterial Culture: Placed in Bactec aerobic and Bactec anaerobic bottles Acid Fast Smear for Mycobacterium [[id number]] Collected: 07/15/24 1424 Lab Status: Final result Specimen: Pleural Fluid, Left Updated: 07/15/24 2125 Acid Fast Smear For Mycobacterium Negative. Narrative: Bacterial Culture: Placed in Bactec aerobic and Bactec anaerobic bottles Fungal Smear [[id number]] Collected: 07/15/24 1424 Lab Status: Final result Specimen: Pleural Fluid, Left Updated: 07/15/24 1925 Fungal Smear Negative. Narrative: Bacterial Culture: Placed in Bactec aerobic and Bactec anaerobic bottles Mycobacterial Culture [[id number]] Collected: 07/15/24 1424 Lab Status: In process Specimen: Pleural Fluid, Left Updated: 07/15/24 1519 Narrative: Bacterial Culture: Placed in Bactec aerobic and Bactec anaerobic bottles Bacterial Culture, Aerobic + Susceptibility [[id number]] Collected: 07/15/24 1424 Lab Status: Preliminary result Specimen: Pleural Fluid, Left Updated: 07/17/24 0847 Bacterial Culture, Aerobic + Susc No growth to date. Narrative: Bacterial Culture: Placed in Bactec aerobic and Bactec anaerobic bottles Staph aureus / MRSA, Nasal, PCR [[id number]] Collected: 07/14/24 1039 Lab Status: Final result [...] Please page the ICU-ID service pager at [phone] with questions. Thank you for the consultation. Discussed with Dr. Camejo, ID residential solar sales consultant and the primary team. Kayleigh Small M.D. Infectious Diseases Fellow Cosigned by Hay Camejo M.D., M.S. at 07/17/2024 2:43 PM PORTABLE POWER TOOL REPAIRER ABLE POWER TOOL REPAIRER ABLE POWER TOOL REPAIRER Associated attestation - Hay Camejo M.D., M.S. - 07/17/2024 2:43 PM PORTABLE POWER TOOL REPAIRER I saw and evaluated the patient, participating [...] some point, she was admitted to [facility] at the end of June for sepsis [...] study was completed and pt qualified for [facility]. Isis Flaherty R.N. Problem: PAIN - ADULT [...] Goal: Maintain a safe environment Outcome: Progressing ABLE POWER TOOL REPAIRER * Malcolm Cordon R.N. - 07/19/2024 4:47 [...] DC home tomorrow (07/20). Malcolm Cordon R.N. ABLE POWER TOOL REPAIRER * Shawna Little R.N., C.M.S.RDmitryNDmitry - 07/17/2024 10:01 PM CST Shift Goals: Clinical Goals for the Shift: Pt will state pain is tolerable after discontinuing ASSEMBLER CORNCOB PIPES. Identify possible barriers to meeting goals/advancing plan [...] pain 6-9/10 during shift. Ice pack utilized. ASSEMBLER CORNCOB PIPES DC'd. Scheduled Tylenol given. PRN oxycodone, Robaxin [...] SATS above 90% Encouraged incentive spirometer use. ABLE POWER TOOL REPAIRER * Bhumi Chawla R.NDmitry - 07/17/2024 5:43 AM CST Shift Goals: Clinical Goals for the Shift: Patient will get adequate rest overnight and report good pain control Identify possible barriers to meeting goals/advancing plan of care: None End of Shift Summary: Sasha slept well overnight in between cares. Pain controlled with ASSEMBLER CORNCOB PIPES, PRN Robaxin and scheduled tylenol. She ambulated [...] Achieves optimal ventilation and oxygenation Outcome: Progressing ABLE POWER TOOL REPAIRER * Diane Blevins R.N. - 07/15/2024 1:15 PM CST Patient came to OR with personal belongings including 4 earrings and 1 ring/piercing. Sent with patient on chart. Roxanne Blevins RN ABLE POWER TOOL REPAIRER * Candi Leonard R.N. - 07/15/2024 6:24 [...] Absence of infection during hospitalization Outcome: Progressing ABLE POWER TOOL REPAIRER * Helena Brady RSelvin - 07/14/2024 6:41 [...] Goal: Patient discharge needs identified Outcome: Progressing ABLE POWER TOOL REPAIRER documented in this encounter OR Notes * Op Note - Catrina Sutton M.D. - 07/15/2024 2:11 PM CST Pre-op Diagnosis Empyema Pleural (HCC) Post-op Diagnosis Empyema Pleural (HCC) Director Of Digital Marketing A investment sales assistant actively participated and was necessary for [...] Mtz M.D., Ph.D. at 07/17/2024 8:18 AM PORTABLE POWER TOOL REPAIRER ABLE POWER TOOL REPAIRER ABLE POWER TOOL REPAIRER * Brief Op Note - Catrina Sutton M.D. - 07/15/2024 2:11 PM PORTABLE POWER TOOL REPAIRER Pre-op Diagnosis Empyema Pleural (HCC) Post-op Diagnosis Empyema Pleural (HCC) Findings Multiple adhesions and pockets of pus involving the pleura, lower lobe and diaphragm Complications None Catrina Cole M.D. ABLE POWER TOOL REPAIRER documented in this encounter Miscellaneous Notes * Hospital Course - Melinda Isaac APRN, C.N.PDmitry - 07/16/2024 8:03 AM PORTABLE POWER TOOL REPAIRER Ms. Kumar is a 39-year-old female who [...] a general diet, and voiding without difficulty. ABLE POWER TOOL REPAIRER ABLE POWER TOOL REPAIRER ABLE POWER TOOL REPAIRER ABLE POWER TOOL REPAIRER ABLE POWER TOOL REPAIRER ABLE POWER TOOL REPAIRER ABLE POWER TOOL REPAIRER ABLE POWER TOOL REPAIRER ABLE POWER TOOL REPAIRER ABLE POWER TOOL REPAIRER documented in this encounter Plan of Treatment Upcoming Encounters Date Type Department Care Team (Late st Contact Info) Description 08/30/2024 9:00 AM PORTABLE POWER TOOL REPAIRER Office Visit Department of [facility] in [place], [place] [address] [place] [address] Prudence Mena MPAS, P.A.-C. [address] [place] [address] Scheduled Orders Name Type Priority Associated Diagnoses Orde r Schedule Perform central station engineer main line: Site care, Flush port(s) Procedures Routine Empyema Pleural (HCC) Expected: 07/22/2024, Expires: 10/17/2025 Perform central station engineer main line: Flush port(s), Site care Procedures Routine Empyema [...] inpatients and all outpatients) 07/19/2024 1:04 PM PORTABLE POWER TOOL REPAIRER NOCTURNAL OXYGEN STUDY - RT Routine 07/19/2024 12:24 PM PORTABLE POWER TOOL REPAIRER DX CHEST AP OR PA AND LATERAL 2 VIEWS RAD - Routine (most inpatients and all outpatients) 07/19/2024 9:10 AM PORTABLE POWER TOOL REPAIRER ADULT OXYGEN THERAPY Routine 07/19/2024 8:01 AM PORTABLE POWER TOOL REPAIRER CBC WITHOUT DIFFERENTIAL, B Routine 07/19/2024 6:02 AM PORTABLE POWER TOOL REPAIRER BASIC METABOLIC PANEL, S/P Routine 07/19/2024 6:02 AM PORTABLE POWER TOOL REPAIRER PLACE PERIPHERALLY INSERTED CENTRAL CATHETER (PICC) Routine 07/18/2024 8:43 PM PORTABLE POWER TOOL REPAIRER ADULT OXYGEN THERAPY Routine 07/18/2024 8:01 PM PORTABLE POWER TOOL REPAIRER DX CHEST AP OR PA AND LATERAL 2 VIEWS RAD - Routine (most inpatients and all outpatients) 07/18/2024 10:15 AM PORTABLE POWER TOOL REPAIRER ADULT OXYGEN THERAPY Routine 07/18/2024 8:00 AM PORTABLE POWER TOOL REPAIRER ADULT OXYGEN THERAPY Routine 07/17/2024 8:01 PM PORTABLE POWER TOOL REPAIRER HIV-1/-2 AG AND AB SCREEN, PLASMA Routine 07/17/2024 5:05 PM PORTABLE POWER TOOL REPAIRER ADULT OXYGEN THERAPY Routine 07/17/2024 8:01 AM PORTABLE POWER TOOL REPAIRER ADULT OXYGEN THERAPY Routine 07/16/2024 8:01 PM PORTABLE POWER TOOL REPAIRER RESPIRATORY ASSESS AND TREAT Routine 07/16/2024 2:00 PM PORTABLE POWER TOOL REPAIRER VANCOMYCIN, TROUGH, S Timed 07/16/2024 10:31 AM PORTABLE POWER TOOL REPAIRER ADULT OXYGEN THERAPY Routine 07/16/2024 8:01 AM PORTABLE POWER TOOL REPAIRER ADULT OXYGEN THERAPY Routine 07/15/2024 8:01 PM PORTABLE POWER TOOL REPAIRER ADULT OXYGEN THERAPY Routine 07/15/2024 6:49 PM PORTABLE POWER TOOL REPAIRER ADULT OXYGEN THERAPY Routine 07/15/2024 6:49 PM PORTABLE POWER TOOL REPAIRER ADULT OXYGEN THERAPY Routine 07/15/2024 6:49 PM PORTABLE POWER TOOL REPAIRER DX CHEST 1 VIEW RAD - Routine (most inpatients and all outpatients) 07/15/2024 4:51 PM PORTABLE POWER TOOL REPAIRER BACTERIAL CULTURE, AEROBIC + SUSC Routine 07/15/2024 4:00 PM PORTABLE POWER TOOL REPAIRER Empyema Pleural (HCC) ACTINOMYCES CULTURE Routine 07/15/2024 4 :00 PM PORTABLE POWER TOOL REPAIRER Empyema Pleural (HCC) MYCOBACTERIAL CULTURE, V Routine 07/15/2024 4:00 PM PORTABLE POWER TOOL REPAIRER Empyema Pleural (HCC) FUNGAL SMEAR Routine 07/15/2024 4:00 PM PORTABLE POWER TOOL REPAIRER Empyema Pleural (HCC) LEGIONELLA CULTURE Routine 07/15/2024 4: 00 PM PORTABLE POWER TOOL REPAIRER Empyema Pleural (HCC) ACID FAST SMEAR FOR MYCOBACTERIUM Routine 07/15/2024 4:00 PM PORTABLE POWER TOOL REPAIRER Empyema Pleural (HCC) GRAM STAIN Routine 07/15/2024 4:00 PM PORTABLE POWER TOOL REPAIRER Empyema Pleural (HCC) FUNGAL CULTURE, ROUTINE Routine 07/15/2024 4:00 PM PORTABLE POWER TOOL REPAIRER Empyema Pleural (HCC) BACTERIAL CULTURE, ANAEROBIC + SUSC Routine 07/15/2024 4:00 PM PORTABLE POWER TOOL REPAIRER Empyema Pleural (HCC) BACTERIAL CULTURE, AEROBIC + SUSC Routine 07/15/2024 2:24 PM PORTABLE POWER TOOL REPAIRER Empyema Pleural (HCC) MYCOBACTERIAL CULTURE, V Routine 07/15/2024 2:24 PM PORTABLE POWER TOOL REPAIRER Empyema Pleural (HCC) FUNGAL SMEAR Routine 07/15/2024 2:24 PM PORTABLE POWER TOOL REPAIRER Empyema Pleural (HCC) ACID FAST SMEAR FOR MYCOBACTERIUM Routine 07/15/2024 2:24 PM PORTABLE POWER TOOL REPAIRER Empyema Pleural (HCC) GRAM STAIN Routine 07/15/2024 2:24 PM PORTABLE POWER TOOL REPAIRER Empyema Pleural (HCC) FUNGAL CULTURE, ROUTINE Routine 07/15/2024 2:24 PM PORTABLE POWER TOOL REPAIRER Empyema Pleural (HCC) THORACOSCOPY - DECORTICATION 07/15/2024 12:32 PM PORTABLE POWER TOOL REPAIRER Empyema Pleural (HCC) TYPE AND SCREEN STAT 07/15/2024 7:50 AM PORTABLE POWER TOOL REPAIRER MRSA/STAPHYLOCOCCUS AUREUS, NASAL, BY PCR Routine 07/14/2024 10:39 AM PORTABLE POWER TOOL REPAIRER BASIC METABOLIC PANEL, S/P Routine 07/14/2024 4:09 AM PORTABLE POWER TOOL REPAIRER DX CHEST PORTABLE 1 VIEW RAD - Routine (most inpatients and all outpatients) 07/13/2024 9:07 PM PORTABLE POWER TOOL REPAIRER CBC WITHOUT DIFFERENTIAL, B Routine 07/13/2024 8:14 PM PORTABLE POWER TOOL REPAIRER documented in this encounter Results * DX Chest AP or PA and Lateral 2 Views (08/27/2024 10:18 AM PORTABLE POWER TOOL REPAIRER) Anatomical Region Laterality Modality Chest, Thoracic RST LOS, Tho racic ARZ LOS, Thoracic FLA LOS N/A Digital Radiography Impressions 08/27/2024 10:25 AM PORTABLE POWER TOOL REPAIRER Compared to 08/05/2024, multifocal linear subsegmental atelectasis or scarring and mild septal thickening in the left hemithorax is decreased but not resolved. Trace left pleural effusion is decreased. Improved aeration of the left lung base with decrease in previous mild patchy groundglass opacities. No new consolidation. Interval removal of right PICC. Chest otherwise negative. Narrative 08/27/2024 10:25 AM PORTABLE POWER TOOL REPAIRER EXAM: DX CHEST AP OR PA AND [...] Creatinine with Estimated GFR (07/29/2024 10:15 AM PORTABLE POWER TOOL REPAIRER) Creatinine 0.53(L) 0.59 - 1.04 mg/dL 07/29/2024 10:39 AM PORTABLE POWER TOOL REPAIRER CNFL Estimated GFR (eGFR) >90 >=60 mL/min/BSA 07/29/2024 10:39 AM PORTABLE POWER TOOL REPAIRER CNFL Comment: Estimated GFR calculated using the 2020 CKD_EPI creatinine equation. Blood (Blood, PICC) 07/29/2024 10:15 AM PORTABLE POWER TOOL REPAIRER 07/29/2024 10:18 AM PORTABLE POWER TOOL REPAIRER us Melinda Isaac APRN, C.N.P. LAB [place] [address], [place] [address] * Alkaline Phosphatase (07/29/2024 10:15 AM PORTABLE POWER TOOL REPAIRER) Alkaline Phosphatase, P 97 35 - 104 U/L 07/29/2024 10:39 AM PORTABLE POWER TOOL REPAIRER CNFL Blood (Blood, PICC) 07/29/2024 10:15 AM PORTABLE POWER TOOL REPAIRER 07/29/2024 10:18 AM PORTABLE POWER TOOL REPAIRER Melinda Isaac APRN, C.N.P. LAB [place] [address], [facility] [place] [facility] in [address] [address] * ALT (Alanine Aminotransferase) (07/29/2024 10:15 AM PORTABLE POWER TOOL REPAIRER) Pathologist [facility] Alanine Aminotransferase (ALT), P 15 7 - 45 U/L 07/29/2024 10:39 AM PORTABLE POWER TOOL REPAIRER CNFL Blood (Blood, PICC) 07/29/2024 10:15 AM PORTABLE POWER TOOL REPAIRER 07/29/2024 10:18 AM PORTABLE POWER TOOL REPAIRER us Melinda Isaac APRN, C.N.P. LAB BLOOD ADD-ON Final Result [facility] [address] [place] [address], [facility] in [address] [address] * (ABNORMAL) CBC with Differential, Blood (07/29/2024 10:15 AM PORTABLE POWER TOOL REPAIRER) Pathologist [facility] Hemoglobin 10.2(L) 11.6 - 15.0 g/dL 07/29/2024 10:28 AM PORTABLE POWER TOOL REPAIRER CNFL Hematocrit 33.5(L) 35.5 - 44.9 % 07/29/2024 10:28 AM PORTABLE POWER TOOL REPAIRER CNFL Erythrocytes 3.82(L) 3.92 - 5.13 x10(12)/L 07/29/2024 10:28 AM PORTABLE POWER TOOL REPAIRER CNFL MCV 87.7 78.2 - 97.9 fL 07/29/2024 10:28 AM PORTABLE POWER TOOL REPAIRER CNFL RBC Distrib Width 14.9 12.2 - 16.1 % 07/29/2024 10:28 AM PORTABLE POWER TOOL REPAIRER CNFL Platelet Count 837(H) 157 - 371 x10(9)/L 07/29/2024 10:28 AM PORTABLE POWER TOOL REPAIRER CNFL Leukocytes 16.0(H) 3.4 - 9.6 x10(9)/L 07/29/2024 10:28 AM PORTABLE POWER TOOL REPAIRER CNFL Neutrophils 13.54(H) 1.56 - 6.45 x10(9)/L 07/29/2024 10:28 AM PORTABLE POWER TOOL REPAIRER CNFL Lymphocytes 1.31 0.95 - 3.07 x10(9)/L 07/29/2024 10:28 AM PORTABLE POWER TOOL REPAIRER CNFL Monocytes 0.62 0.26 - 0.81 x10(9)/L 07/29/2024 10:28 AM PORTABLE POWER TOOL REPAIRER CNFL Eosinophils 0.39 0.03 - 0.48 x10(9)/L 07/29/2024 10:28 AM PORTABLE POWER TOOL REPAIRER CNFL Basophils 0.12(H) 0.01 - 0.08 x10(9)/L 07/29/2024 10:28 AM PORTABLE POWER TOOL REPAIRER CNFL Blood (Blood, PICC) 07/29/2024 10:15 AM PORTABLE POWER TOOL REPAIRER 07/29/2024 10:18 AM PORTABLE POWER TOOL REPAIRER us Melinda Isaac APRN, C.N.P. LAB BLOOD ADD-ON Final Result Performing Organization Address City/State/[facility] Co de Phone Number [facility] [address] [place] [address], [facility] CNFL [facility] in [place] [id number] * DX Chest AP or PA and Lateral 2 Views (07/19/2024 1:04 PM PORTABLE POWER TOOL REPAIRER) Anatomical Region Laterality Modality Chest, Thoracic RST LOS, Tho racic ARZ LOS, Thoracic FLA LOS N/A Digital Radiography Impressions 07/19/2024 1:55 PM PORTABLE POWER TOOL REPAIRER Since earlier today, removal of the left chest tube. Remainder not significantly changed. Trace left apical pneumothorax. Right PICC tip at the SVC/RA junction. No pleural effusions. Enlarged cardiac silhouette. Scattered subsegmental atelectasis. Narrative 07/19/2024 1:55 PM PORTABLE POWER TOOL REPAIRER EXAM: DX CHEST AP OR PA AND LATERAL 2 VIEWS Procedure Note Jt Valenzuela M.D. - 07/19/2024 EXAM: DX CHEST AP OR PA AND LATERAL 2 VIEWS IMPRESSION: Since earlier today, removal of the left chest tube. Remainder notsignificantly changed. Trace left apical pneumothorax. Right PICC tip atthe SVC/RA junction. No pleural effusions. Enlarged cardiac silhouette.Scattered subsegmental atelectasis. Eveline Mariscal P.A.-C. [facility] [place] OCEDURES Final Result * DX Chest AP or PA and Lateral 2 Views (07/19/2024 9:10 AM PORTABLE POWER TOOL REPAIRER) Anatomical Region Laterality Modality Chest, Thoracic RST LOS, Tho racic ARZ LOS, Thoracic FLA LOS N/A Digital Radiography Impressions 07/19/2024 10:12 AM PORTABLE POWER TOOL REPAIRER Since 07/18/2024, right arm PICC has been inserted with tip at the SVC RA junction. One of the left chest tubes has been removed. Remainder unchanged. Trace left apical pneumothorax. No pleural effusions. Enlarged cardiac silhouette. Scattered subsegmental atelectasis. Left chest tube. Narrative 07/19/2024 10:12 AM PORTABLE POWER TOOL REPAIRER EXAM: DX CHEST AP OR PA AND [...] subsegmental atelectasis. Leftchest tube. Eveline Mariscal P.A.-C. [facility] [place] OCEDURES Final Result * Basic Metabolic Panel (07/19/2024 6:02 AM PORTABLE POWER TOOL REPAIRER) Potassium, S 3.6 3.6 - 5.2 mmol/L 07/19/2024 6:59 AM PORTABLE POWER TOOL REPAIRER DTL Sodium, S 140 135 - 145 mmol/L 07/19/2024 6:59 AM PORTABLE POWER TOOL REPAIRER DTL Chloride, S 103 98 - 107 mmol/L 07/19/2024 6:59 AM PORTABLE POWER TOOL REPAIRER DTL Bicarbonate, S 28 22 - 29 mmol/L 07/19/2024 6:59 AM PORTABLE POWER TOOL REPAIRER DTL Anion Gap 9 7 - 15 07/19/2024 6:59 AM PORTABLE POWER TOOL REPAIRER DTL BUN (Blood Urea Nitrogen), S 11 6 - 21 mg/dL 07/19/2024 6:59 AM PORTABLE POWER TOOL REPAIRER DTL Creatinine 0.82 0.59 - 1.04 mg/dL 07/19/2024 6:59 AM PORTABLE POWER TOOL REPAIRER DTL Estimated GFR (eGFR) >90 >=60 mL/min/BSA 07/19/2024 6:59 AM PORTABLE POWER TOOL REPAIRER DTL Comment: Estimated GFR calculated using the 2020 CKD_EPI creatinine equation. Calcium, Total, S 8.6 8.6 - 10.0 mg/dL 07/19/2024 6:59 AM PORTABLE POWER TOOL REPAIRER DTL Glucose, S 90 70 - 140 mg/dL 07/19/2024 6:59 AM PORTABLE POWER TOOL REPAIRER DTL Blood (Blood, Venous) 07/19/2024 6:02 AM PORTABLE POWER TOOL REPAIRER 07/19/2024 6:42 AM PORTABLE POWER TOOL REPAIRER Lopez Garvey M.D. LAB BLOOD ADD-ON Final Resul t [place] [address] [place] [address], [facility] [address] [place] [address] * (ABNORMAL) CBC without Differential (07/19/2024 6:02 AM PORTABLE POWER TOOL REPAIRER) Hemoglobin 7.6(L) 11.6 - 15.0 g/dL 07/19/2024 6:38 AM PORTABLE POWER TOOL REPAIRER DTL Hematocrit 24.1(L) 35.5 - 44.9 % 07/19/2024 6:38 AM PORTABLE POWER TOOL REPAIRER DTL Erythrocytes 2.67(L) 3.92 - 5.13 x10(12)/L 07/19/2024 6:38 AM PORTABLE POWER TOOL REPAIRER DTL MCV 90.3 78.2 - 97.9 fL 07/19/2024 6:38 AM PORTABLE POWER TOOL REPAIRER DTL RBC Distrib Width 15.6 12.2 - 16.1 % 07/19/2024 6:38 AM PORTABLE POWER TOOL REPAIRER DTL Platelet Count 478(H) 157 - 371 x10(9)/L 07/19/2024 6:38 AM PORTABLE POWER TOOL REPAIRER DTL Leukocytes 9.8(H) 3.4 - 9.6 x10(9)/L 07/19/2024 6:38 AM PORTABLE POWER TOOL REPAIRER DTL Blood (Blood, Venous) 07/19/2024 6:02 AM PORTABLE POWER TOOL REPAIRER 07/19/2024 6:26 AM PORTABLE POWER TOOL REPAIRER Lopez Garvey M.D. LAB BLOOD ADD-ON Final Resul t [facility] [address] [place] [address], [facility] [address] [place] [address] * Place peripherally inserted central catheter (PICC) (07/18/2024 8:43 PM PORTABLE POWER TOOL REPAIRER) Narrative [facility] - 07/18/2024 8:43 PM PORTABLE POWER TOOL REPAIRER Rayo Finch R.N. 07/18/2024 9:[address] peripherally inserted central catheter (PICC) Performed by: Rayo Finch R.N. Authorized by: Eveline Mariscal, P.ADmitry-CDmitry Care team members present 1. Rayo Finch [...] with ultrasound and measured to ensure appropriate obzphpxa-ld-[id number] ratio of 45% or less: Right Basilic [...] to release the adhesive from the skin. [email or web address]/[email or web address] us Eveline Mariscal P.A.-C. PROCEDURE/MINOR SURGICAL ORDERABLES Final Result [facility] NA * DX Chest AP or PA and Lateral 2 Views (07/18/2024 10:15 AM PORTABLE POWER TOOL REPAIRER) Anatomical Region Laterality Modality Chest, Thoracic RST LOS, Tho racic ARZ LOS, Thoracic FLA LOS N/A Digital Radiography Impressions 07/18/2024 10:22 AM PORTABLE POWER TOOL REPAIRER Compared with the 07/15/2024 chest radiograph. Decreased tiny left pneumothorax. Slightly improved aeration with decreased lower lung predominant presumably atelectases. Shallow inspiration with accentuation of the cardiovascular structures. Narrative 07/18/2024 10:22 AM PORTABLE POWER TOOL REPAIRER EXAM: DX CHEST AP OR PA AND LATERAL 2 VIEWS Procedure Note Polo Toussaint M.D. - 07/18/2024 EXAM: DX CHEST AP OR PA AND LATERAL 2 VIEWS IMPRESSION: Compared with the 07/15/2024 chest radiograph. Decreased tiny leftpneumothorax. Slightly improved aeration with decreased lower lungpredominant presumably atelectases. Shallow inspiration with accentuationof the cardiovascular structures. Eveline Mariscal P.A.-C. [facility] [place] OCEDURES Final Result * HIV-1/-2 Ag and Ab Screen, Plasma (07/17/2024 5:05 PM PORTABLE POWER TOOL REPAIRER) [facility] HIV-1/-2 Ag and Ab Screen, P Negative Negative 07/17/2024 8:57 PM PORTABLE POWER TOOL REPAIRER [facility] Comment: Negative result does not rule out HIV infection. If exposure to HIV infection occurred <14 days ago, contact the laboratory to request addition of HIV-1/HIV-2 RNA detection, Plasma (HIP12). Blood (Blood, Venous) 07/17/2024 5:05 PM PORTABLE POWER TOOL REPAIRER 07/17/2024 7:55 PM PORTABLE POWER TOOL REPAIRER Shahram Abernathy APRN, C.N .P., M.S. LAB MICROBIOLOGY - BLOOD ORDERABLES Final Result [facility] [address] [place] [address] [facility] [address] [place] [address] * (ABNORMAL) Vancomycin, Trough (07/16/2024 10:31 AM PORTABLE POWER TOOL REPAIRER) [facility] Vancomycin, Trough, S 8.9(L) 10.0 - 20.0 mcg/mL 07/16/2024 12:10 PM PORTABLE POWER TOOL REPAIRER DTL Blood (Blood, Venous) 07/16/2024 10:31 AM PORTABLE POWER TOOL REPAIRER 07/16/2024 10:52 AM PORTABLE POWER TOOL REPAIRER us Patrick Mtz M.D., Ph.D. LAB BLOOD NON ADD-ON Fi nal Result [facility] [address] [place] [address], [facility] [address] [place] [address] * DX Chest 1 View (07/15/2024 4:51 PM PORTABLE POWER TOOL REPAIRER) Anatomical Region Laterality Modality Chest, Thoracic RST LOS, Tho racic ARZ LOS, Thoracic FLA LOS N/A Digital Radiography Impressions 07/15/2024 4:59 PM PORTABLE POWER TOOL REPAIRER Negative for postoperative purposes. Left thoracotomy with 2 left chest tubes. Small left-sided pneumothorax. New left perihilar consolidation/atelectasis since 07/13/2024. Increased bibasilar consolidation/atelectasis. Very low lung volumes accentuate heart size and bronchovascular markings. Narrative 07/15/2024 4:59 PM PORTABLE POWER TOOL REPAIRER EXAM: DX CHEST 1 VIEW Procedure Note [...] Culture, Aerobic + Susceptibility (07/15/2024 4:00 PM PORTABLE POWER TOOL REPAIRER) Bacterial Culture, Aerobic + Susc No growth after 5 days of incubation. 07/20/2024 7:42 AM PORTABLE POWER TOOL REPAIRER DTL Tissue (Pleura, Left) 07/15/2024 4:00 PM PORTABLE POWER TOOL REPAIRER us Patrick Mtz M.D., Ph.D. LAB MICROBIOLOGY - GENE RAL ORDERABLES Final Result Performing Organization Address City/[facility]/ZIP Co de Phone Number [facility] [address] [place] [address], [facility] [address] [place] [address] * Actinomyces Culture (07/15/2024 4:00 PM PORTABLE POWER TOOL REPAIRER) Actinomyces Culture No growth after 14 days of incubation . 07/29/2024 7:33 AM PORTABLE POWER TOOL REPAIRER DTL Tissue (Pleura, Left) 07/15/2024 4:00 PM PORTABLE POWER TOOL REPAIRER us Patrick Mtz M.D., Ph.D. LAB MICROBIOLOGY - GENE RAL ORDERABLES Final Result Performing Organization Address [facility] Co de Phone Number [facility] [address] [place] [address], [facility] [address] [place] [address] * Mycobacterial Culture (07/15/2024 4:00 PM PORTABLE POWER TOOL REPAIRER) Mycobacterial Culture No growth after 42 days of incubation . 08/27/2024 1:02 AM PORTABLE POWER TOOL REPAIRER DTL Tissue (Pleura, Left) 07/15/2024 4:00 PM PORTABLE POWER TOOL REPAIRER us Patrick Mtz M.D., Ph.D. LAB MICROBIOLOGY - GENE RAL ORDERABLES Final Result Performing Organization Address City/[facility] Co de Phone Number [facility] [address] [place] [address], [facility] [address] [place] [address] * Fungal Smear (07/15/2024 4:00 PM PORTABLE POWER TOOL REPAIRER) Fungal Smear Negative. 07/16/2024 8:52 AM PORTABLE POWER TOOL REPAIRER DTL Tissue (Pleura, Left) 07/15/2024 4:00 PM PORTABLE POWER TOOL REPAIRER us Patrick Mtz M.D., Ph.D. LAB MICROBIOLOGY - GENE RAL ORDERABLES Final Result Performing Organization Address City/[facility]/ZIP Co de Phone Number [facility] [address] [place] [address], [facility] [address] [place] [address] * Legionella Culture (07/15/2024 4:00 PM PORTABLE POWER TOOL REPAIRER) Legionella Culture No growth of Legionella species after 7 days of incubation 07/22/2024 8:16 AM PORTABLE POWER TOOL REPAIRER DTL Tissue (Pleura, Left) 07/15/2024 4:00 PM PORTABLE POWER TOOL REPAIRER us Patrick Mtz M.D., Ph.D. LAB MICROBIOLOGY - GENE RAL ORDERABLES Final Result Performing Organization Address City/[facility] Co de Phone Number [facility] [address] [place] [address], [facility] [address] [place] [address] * Acid Fast Smear for Mycobacterium (07/15/2024 4:00 PM PORTABLE POWER TOOL REPAIRER) Acid Fast Smear For Mycobacterium Negative. 07/15/2024 10:18 PM PORTABLE POWER TOOL REPAIRER DTL Tissue (Pleura, Left) 07/15/2024 4:00 PM PORTABLE POWER TOOL REPAIRER us Patrick Mtz M.D., Ph.D. LAB MICROBIOLOGY - GENE RAL ORDERABLES Final Result Performing Organization Address City/[facility]/ZIP Co de Phone Number [facility] [address] [place] [address], [facility] [address] [place] [address] * Gram Stain (07/15/2024 4:00 PM PORTABLE POWER TOOL REPAIRER) Gram Stain No organisms seen. White blood cells, Many 07/15/2024 10:18 PM PORTABLE POWER TOOL REPAIRER DTL Tissue (Pleura, Left) 07/15/2024 4:00 PM PORTABLE POWER TOOL REPAIRER us Patrick Mtz M.D., Ph.D. LAB MICROBIOLOGY - GENE RAL ORDERABLES Final Result Performing Organization Address City/[facility]/ZIP Co de Phone Number [facility] [address] [place] [address], [facility] [address] [place] [address] * Fungal Culture, Routine (07/15/2024 4:00 PM PORTABLE POWER TOOL REPAIRER) Fungal Culture, Routine No growth after 24 days of incubation. 08/09/2024 1:02 AM PORTABLE POWER TOOL REPAIRER DTL Tissue (Pleura, Left) 07/15/2024 4:00 PM PORTABLE POWER TOOL REPAIRER us Patrick Mtz M.D., Ph.D. LAB MICROBIOLOGY - GENE RAL ORDERABLES Final Result Performing Organization Address City/[facility]/ZIP Co de Phone Number [facility] [address] [place] [address], [facility] [address] [place] [address] * Bacterial Culture, Anaerobic + Susceptibility (07/15/2024 4:00 PM PORTABLE POWER TOOL REPAIRER) Bacterial Culture, Anaerobic + Susc No growth after 14 days of incubation. 07/29/2024 7:33 AM PORTABLE POWER TOOL REPAIRER DTL Tissue (Pleura, Left) 07/15/2024 4:00 PM PORTABLE POWER TOOL REPAIRER us Patrick Mtz M.D., Ph.D. LAB MICROBIOLOGY - GENE RAL ORDERABLES Final Result [facility] [address] [place] [address], [facility] [address] [place] [address] * Bacterial Culture, Aerobic + Susceptibility (07/15/2024 2:24 PM PORTABLE POWER TOOL REPAIRER) Bacterial Culture, Aerobic + Susc No growth after 5 days of incubation. 07/20/2024 7:42 AM PORTABLE POWER TOOL REPAIRER DTL Fluid (Pleural Fluid, Left) 07/15/2024 2:24 PM PORTABLE POWER TOOL REPAIRER [facility] - 07/20/2024 7:42 AM PORTABLE POWER TOOL REPAIRER Bacterial Culture: Placed in Bactec aerobic and Bactec anaerobic bottles us Patrick Mtz M.D., Ph.D. LAB MICROBIOLOGY - GENE RAL ORDERABLES Final Result Performing Organization Address City/[facility]/ZIP Co de Phone Number [facility] [address] [place] [address] * Mycobacterial Culture (07/15/2024 2:24 PM PORTABLE POWER TOOL REPAIRER) Mycobacterial Culture No growth after 42 days of incubation . 08/27/2024 1:02 AM PORTABLE POWER TOOL REPAIRER DTL Fluid (Pleural Fluid, Left) 07/15/2024 2:24 PM PORTABLE POWER TOOL REPAIRER [facility] - 08/27/2024 1:02 AM PORTABLE POWER TOOL REPAIRER Bacterial Culture: Placed in Bactec aerobic and Bactec anaerobic bottles us Patrick Mtz M.D., Ph.D. LAB MICROBIOLOGY - GENE RAL ORDERABLES Final Result Performing Organization Address City/[facility]/ZIP Co de Phone Number [facility] [address] [place] [address], [facility] [address] [place] [address] * Fungal Smear (07/15/2024 2:24 PM PORTABLE POWER TOOL REPAIRER) Fungal Smear Negative. 07/15/2024 7:25 PM PORTABLE POWER TOOL REPAIRER DTL Fluid (Pleural Fluid, Left) 07/15/2024 2:24 PM PORTABLE POWER TOOL REPAIRER [facility] - 07/15/2024 7:25 PM PORTABLE POWER TOOL REPAIRER Bacterial Culture: Placed in Bactec aerobic and Bactec anaerobic bottles us Patrick Mtz M.D., Ph.D. LAB MICROBIOLOGY - GENE RAL ORDERABLES Final Result [facility] [address] [place] [address], [facility] [address] [place] [address] * Acid Fast Smear for Mycobacterium (07/15/2024 2:24 PM PORTABLE POWER TOOL REPAIRER) Acid Fast Smear For Mycobacterium Negative. 07/15/2024 9:24 PM PORTABLE POWER TOOL REPAIRER DTL Fluid (Pleural Fluid, Left) 07/15/2024 2:24 PM PORTABLE POWER TOOL REPAIRER Narrative [facility] - 07/15/2024 9:24 PM PORTABLE POWER TOOL REPAIRER Bacterial Culture: Placed in Bactec aerobic and Bactec anaerobic bottles us Patrick Mtz M.D., Ph.D. LAB MICROBIOLOGY - GENE RAL ORDERABLES Final Result Performing Organization Address City/[facility]/ZIP Co de Phone Number [facility] [address] [place] [address], [facility] [address] [place] [address] * Gram Stain (07/15/2024 2:24 PM PORTABLE POWER TOOL REPAIRER) Gram Stain No organisms seen. White blood cells, Moderate 07/15/2024 8:02 PM PORTABLE POWER TOOL REPAIRER DTL Fluid (Pleural Fluid, Left) 07/15/2024 2:24 PM PORTABLE POWER TOOL REPAIRER Narrative [facility] - 07/15/2024 8:02 PM PORTABLE POWER TOOL REPAIRER Bacterial Culture: Placed in Bactec aerobic and Bactec anaerobic bottles us Patrick Mtz M.D., Ph.D. LAB MICROBIOLOGY - GENE RAL ORDERABLES Final Result [facility] [address] [place] [address], [facility] [address] [place] [address] * Fungal Culture, Routine (07/15/2024 2:24 PM PORTABLE POWER TOOL REPAIRER) [facility] Fungal Culture, Routine No growth after 24 days of incubation. 08/09/2024 1:02 AM PORTABLE POWER TOOL REPAIRER DTL Fluid (Pleural Fluid, Left) 07/15/2024 2:24 PM PORTABLE POWER TOOL REPAIRER Narrative [facility] - 08/09/2024 1:02 AM PORTABLE POWER TOOL REPAIRER Bacterial Culture: Placed in Bactec aerobic and Bactec anaerobic bottles Patrick Mtz M.D., Ph.D. LAB MICROBIOLOGY - GENE RAL ORDERABLES Final Result Performing Organization Address City/[facility]/ZIP Co de Phone Number [facility] [address] [place] [address], [facility] [address] [place] [address] * Type and Screen (with Reflex Antibody ID) (07/15/2024 7:50 AM PORTABLE POWER TOOL REPAIRER) [facility] ABORh AB Pos Not applicable 07/15/2024 8:36 AM PORTABLE POWER TOOL REPAIRER STRM Antibody Screen Negative Negative 07/15/2024 8:51 AM PORTABLE POWER TOOL REPAIRER STRM Type & Screen Expiration 07/18/2024 23:59 07/15/2024 8:36 AM PORTABLE POWER TOOL REPAIRER STRM Testing Location Sanjiv DEFAULT 07/15/2024 8:10 AM PORTABLE POWER TOOL REPAIRER STRM Blood (Blood, Venous) 07/15/2024 7:50 AM PORTABLE POWER TOOL REPAIRER 07/15/2024 8:10 AM PORTABLE POWER TOOL REPAIRER Jamie Kumar M.D. LAB BLOOD BANK TEST ORDERABLES F inal Result [facility] [address] [place] [address], [facility] STRM [facility] [address] [place] [address] * Staph aureus / MRSA, Nasal, PCR (07/14/2024 10:39 AM PORTABLE POWER TOOL REPAIRER) [facility] Staphylococcus aureus, PCR Negative Negative 07/14/2024 12:55 PM PORTABLE POWER TOOL REPAIRER DT MRSA, PCR Negative Negative 07/14/2024 12:55 PM PORTABLE POWER TOOL REPAIRER DTL Swab (Nares) 07/14/2024 10:3 9 AM PORTABLE POWER TOOL REPAIRER 07/14/2024 11:06 AM PORTABLE POWER TOOL REPAIRER us Patrick Mtz M.D., Ph.D. LAB MICROBIOLOGY - GENE RAL ORDERABLES Final Result [facility] [address] [place] [address], [facility] DTL [facility] [address] [place] [address] * (ABNORMAL) Basic Metabolic Panel (07/14/2024 4:09 AM PORTABLE POWER TOOL REPAIRER) Potassium, S 3.9 3.6 - 5.2 mmol/L 07/14/2024 5:53 AM PORTABLE POWER TOOL REPAIRER DTL Sodium, S 139 135 - 145 mmol/L 07/14/2024 5:53 AM PORTABLE POWER TOOL REPAIRER DTL Chloride, S 103 98 - 107 mmol/L 07/14/2024 5:53 AM PORTABLE POWER TOOL REPAIRER DTL Bicarbonate, S 22 22 - 29 mmol/L 07/14/2024 5:53 AM PORTABLE POWER TOOL REPAIRER DTL Anion Gap 14 7 - 15 07/14/2024 5:53 AM PORTABLE POWER TOOL REPAIRER DTL BUN (Blood Urea Nitrogen), S 10 6 - 21 mg/dL 07/14/2024 5:53 AM PORTABLE POWER TOOL REPAIRER DTL Creatinine 0.57(L) 0.59 - 1.04 mg/dL 07/14/2024 5:53 AM PORTABLE POWER TOOL REPAIRER DTL Estimated GFR (eGFR) >90 >=60 mL/min/BSA 07/14/2024 5:53 AM PORTABLE POWER TOOL REPAIRER DTL Comment: Estimated GFR calculated using the 2020 CKD_EPI creatinine equation. Calcium, Total, S 9.1 8.6 - 10.0 mg/dL 07/14/2024 5:53 AM PORTABLE POWER TOOL REPAIRER DTL Glucose, S 91 70 - 140 mg/dL 07/14/2024 5:53 AM PORTABLE POWER TOOL REPAIRER DTL Blood (Blood, Venous) 07/14/2024 4:09 AM PORTABLE POWER TOOL REPAIRER 07/14/2024 5:23 AM PORTABLE POWER TOOL REPAIRER us Lopez Garvey M.D. LAB BLOOD ADD-ON Final Resul t [facility] [address] [place] [address], [facility] DTL [facility] [address] [place] [address] * DX Chest Portable 1 View (07/13/2024 9:07 PM PORTABLE POWER TOOL REPAIRER) Anatomical Region Laterality Modality Chest, Thoracic RST LOS, Tho racic ARZ LOS, Thoracic FLA LOS N/A Digital Radiography Impressions 07/14/2024 7:27 AM PORTABLE POWER TOOL REPAIRER No significant change since earlier today. Bibasilar atelectasis. Small left loculated pleural effusion. Hazy opacification in the bilateral lungs, left greater than right. No discernible pneumothorax. Mildly enlarged cardiomediastinal silhouette. Narrative 07/14/2024 7:27 AM PORTABLE POWER TOOL REPAIRER EXAM: DX CHEST PORTABLE 1 VIEW Procedure Note Chaz Montelongo M.D. - 07/14/2024 EXAM: DX CHEST PORTABLE 1 VIEW IMPRESSION: No significant change since earlier today. Bibasilar atelectasis. Smallleft loculated pleural effusion. Hazy opacification in the bilaterallungs, left greater than right. No discernible pneumothorax. Mildlyenlarged cardiomediastinal silhouette. Lopez Garvey M.D. IMG [facility]ST[facility] Final Result * (ABNORMAL) CBC without Differential (07/13/2024 8:14 PM PORTABLE POWER TOOL REPAIRER) Hemoglobin 9.7(L) 11.6 - 15.0 g/dL 07/13/2024 9:24 PM PORTABLE POWER TOOL REPAIRER DTL Hematocrit 30.1(L) 35.5 - 44.9 % 07/13/2024 9:24 PM PORTABLE POWER TOOL REPAIRER DTL Erythrocytes 3.32(L) 3.92 - 5.13 x10(12)/L 07/13/2024 9:24 PM PORTABLE POWER TOOL REPAIRER DTL MCV 90.7 78.2 - 97.9 fL 07/13/2024 9:24 PM PORTABLE POWER TOOL REPAIRER DTL RBC Distrib Width 15.3 12.2 - 16.1 % 07/13/2024 9:24 PM PORTABLE POWER TOOL REPAIRER DTL Platelet Count 788(H) 157 - 371 x10(9)/L 07/13/2024 9:24 PM PORTABLE POWER TOOL REPAIRER DTL Leukocytes 17.4(H) 3.4 - 9.6 x10(9)/L 07/13/2024 9:24 PM PORTABLE POWER TOOL REPAIRER DTL Blood (Blood, Venous) 07/13/2024 8:14 PM PORTABLE POWER TOOL REPAIRER 07/13/2024 9:16 PM PORTABLE POWER TOOL REPAIRER us Lopez Garvey M.D. LAB BLOOD ADD-ON Final Resul t [facility] [address] [place] [address], [facility] [address] [place] [address] documented in this encounter Visit Diagnoses Diagnosis [...] 07/13/24 at 2100 Given 07/20/2024 8:40 AM PORTABLE POWER TOOL REPAIRER 1,000 mg Given 07/20/2024 2:56 AM PORTABLE POWER TOOL REPAIRER 1,000 mg Given 07/19/2024 8:36 PM PORTABLE POWER TOOL REPAIRER 1,000 mg bisacodyL suppository 10 mg (Dulcolax) 10 mg, rectal, Every 12 hours PRN, constipation, Starting on Mon07/15/24 at 1849, If no bowel movement within 2 hours following magnesium hydroxide, do not give if patient has diarrhea. BUPivacaine 0.25 % (2.5 mg/mL) injection (Marcaine) As needed, Starting on Mon07/15/24 at 1615, Intra-Op Given 07/15/2024 4:15 PM PORTABLE POWER TOOL REPAIRER [address] buPROPion XL 24 hr tablet 150 mg (Wellbutrin XL) 150 mg, oral, Daily, First dose on Mon07/14/24 at 0900, Swallow whole. Do NOT crush, chew, or split tablet. Given 07/20/2024 8:42 AM PORTABLE POWER TOOL REPAIRER 150 mg Given 07/19/2024 8:39 AM PORTABLE POWER TOOL REPAIRER 150 mg Given 07/18/2024 7:34 AM PORTABLE POWER TOOL REPAIRER 150 mg buPROPion XL 24 hr tablet 300 mg (Wellbutrin XL) 300 mg, oral, Daily, First dose on 07/14/24 at 0900, Swallow whole. Do NOT crush, chew, or split tablet. Given 07/20/2024 8:41 AM PORTABLE POWER TOOL REPAIRER 300 mg Given 07/19/2024 8:41 AM PORTABLE POWER TOOL REPAIRER 300 mg Given 07/18/2024 7:36 AM PORTABLE POWER TOOL REPAIRER 300 mg calcium carbonate chewable tablet 400 [...] 07/14/24 at 2100 Given 07/19/2024 8:37 PM PORTABLE POWER TOOL REPAIRER 4.5 mg Given 07/18/2024 9:23 PM PORTABLE POWER TOOL REPAIRER 4.5 mg Given 07/17/2024 8:24 PM PORTABLE POWER TOOL REPAIRER 4.5 mg cefTRIAXone in dextrose (iso osm) IVPB 2 g (Rocephin) 2 g, intravenous, at 200 mL/hr, Administer over 15 Minutes, Every 24 hours, First dose on Mon07/17/24 at 1600, Drug Monitoring Program: Pharmacist to adjust medication dosing based on indication and drug clearance factors., Indications: empyemaIndications:empyema New Bag 07/20/2024 8:43 AM PORTABLE POWER TOOL REPAIRER 2 g 200 mL/hr New Bag 07/19/2024 11:52 AM PORTABLE POWER TOOL REPAIRER 2 g 200 mL/hr New Bag 07/18/2024 4:31 PM PORTABLE POWER TOOL REPAIRER 2 g 200 mL/hr D5W infusion 1-999 [...] feeding administration instructions. Given 07/20/2024 8:40 AM PORTABLE POWER TOOL REPAIRER 60 mg Given 07/19/2024 8:40 AM PORTABLE POWER TOOL REPAIRER 60 mg Given 07/18/2024 7:35 AM PORTABLE POWER TOOL REPAIRER 60 mg heparin (porcine) injection 5,000 Units 5,000 Units, subcutaneous, Every 8 hours scheduled, First dose on Mon07/16/24 at 0600 Given 07/20/2024 5:49 AM PORTABLE POWER TOOL REPAIRER 5,000 Units Right Upper Arm (Back) Given 07/19/2024 8:36 PM PORTABLE POWER TOOL REPAIRER 5,000 Units L eft Upper Arm (Back) Given 07/19/2024 1:45 PM PORTABLE POWER TOOL REPAIRER 5,000 Units L eft Upper Abdomen heparin (porcine) injection As needed, Starting on 07/15/24 at 1320, Intra-Op Given 07/15/2024 1:20 PM PORTABLE POWER TOOL REPAIRER 5,000 Units Left Lower Abdomen ibuprofen tablet 400 mg 400 mg, oral, Every 6 hours PRN, moderate pain or score 4-6 of 10, severe pain or score 7-10 of 10, Starting on Mon07/19/24 at 2135, Take with food or milk if GI disturbances occur with use. Given 07/20/2024 5:49 AM PORTABLE POWER TOOL REPAIRER 400 mg Given 07/19/2024 9:44 PM PORTABLE POWER TOOL REPAIRER 400 mg ipratropium-albuteroL 0.5-2.5 mg/3 mL nebulizer solution 3 mL (DuoNeb) 3 mL, nebulization, 4 times daily PRN, shortness of breath, Starting on 07/13/24 at 1953 lidocaine 5 % 1 patch (Lidoderm) 1 patch, transdermal, Administer over 12 Hours, Daily at bedtime, First dose (after last modification) on Mon07/14/24 at 2100, Remove after 12 hours. Medication Applied 07/19/2024 8:37 PM PORTABLE POWER TOOL REPAIRER 1 patch Left Upper Abdomen Medication Applied 07/18/2024 9:23 PM PORTABLE POWER TOOL REPAIRER 1 patch Other Medication Applied 07/17/2024 8:25 PM PORTABLE POWER TOOL REPAIRER 1 patch Flank LORazepam tablet 0.5 mg [...] Mon07/17/24 at 1604 Given 07/20/2024 5:49 AM PORTABLE POWER TOOL REPAIRER 500 mg Given 07/19/2024 6:05 PM PORTABLE POWER TOOL REPAIRER 500 mg Given 07/19/2024 10:43 AM PORTABLE POWER TOOL REPAIRER 500 mg metroNIDAZOLE tablet 500 mg (FlagyL) 500 mg, oral, 3 times daily, First dose on Mon07/17/24 at 2100, Drug Monitoring Program: Pharmacist to adjust medication dosing based on indication and drug clearance factors., Indications: empyemaIndications:empyema Given 07/20/2024 8:42 AM PORTABLE POWER TOOL REPAIRER 500 mg Given 07/19/2024 8:37 PM PORTABLE POWER TOOL REPAIRER 500 mg Given 07/19/2024 1:46 PM PORTABLE POWER TOOL REPAIRER 500 mg NaCl 0.9% infusion 1-999 mL/hr, [...] ondansetron before droperidol. Given 07/14/2024 3:56 AM PORTABLE POWER TOOL REPAIRER 4 mg oxyCODONE IR tablet 10 mg (Roxicodone) 10 mg, oral, Every 4 hours PRN, severe pain or score 7-10 of 10, for breakthrough pain, Starting on 07/13/24 at 1953, Pain unrelieved by other oral analgesics. Given 07/20/2024 2:55 AM PORTABLE POWER TOOL REPAIRER 10 mg Given 07/19/2024 3:03 AM PORTABLE POWER TOOL REPAIRER 10 mg Given 07/18/2024 9:07 PM PORTABLE POWER TOOL REPAIRER 10 mg oxyCODONE IR tablet 5 mg (Roxicodone) 5 mg, oral, Every 4 hours PRN, moderate pain or score 4-6 of 10, for breakthrough pain, Starting on 07/13/24 at 1953, Pain unrelieved by other oral analgesics. Given 07/20/2024 8:50 AM PORTABLE POWER TOOL REPAIRER 5 mg Given 07/19/2024 6:05 PM PORTABLE POWER TOOL REPAIRER 5 mg Given 07/19/2024 12:20 PM PORTABLE POWER TOOL REPAIRER 5 mg polyethylene glycol powder packet 1 packet (Miralax) 1 packet, oral, Daily PRN, constipation, Starting on 07/13/24 at 1953, Dissolve in 240 mLs (8 ounces) of water prior to giving. Avoid mixing with starch-based thickened liquids. pregabalin capsule 200 mg (Lyrica) 200 mg, oral, 3 times daily, First dose on 07/13/24 at 2100 Given 07/20/2024 8:42 AM PORTABLE POWER TOOL REPAIRER 200 mg Given 07/19/2024 8:37 PM PORTABLE POWER TOOL REPAIRER 200 mg Given 07/19/2024 1:45 PM PORTABLE POWER TOOL REPAIRER 200 mg prochlorperazine injection 5 mg (Compazine) 5 mg, intravenous, Every 6 hours PRN, nausea, vomiting, Starting on 07/13/24 at 1953 sennosides tablet 17.2 mg (Senokot) 17.2 mg, oral, Daily, First dose on 07/14/24 at 0900, Do not give if patient has diarrhea Given 07/19/2024 8:41 AM PORTABLE POWER TOOL REPAIRER 17.2 mg Given 07/18/2024 7:35 AM PORTABLE POWER TOOL REPAIRER 17.2 mg Given 07/17/2024 8:09 AM PORTABLE POWER TOOL REPAIRER 17.2 mg sodium chloride 0.9 % injection [...] mL per lumen. Given 07/20/2024 9:12 AM PORTABLE POWER TOOL REPAIRER 10 mL Given 07/19/2024 9:39 AM PORTABLE POWER TOOL REPAIRER 10 mL Given 07/18/2024 9:24 PM PORTABLE POWER TOOL REPAIRER 10 mL sodium chloride 0.9 % injection 20-60 mL 20-60 mL, intravenous, As needed, line care, Peripherally Inserted Central Catheter Non-Valved, Starting on Gloria 07/18/24 at 2034, Pior to and following blood sampling and post blood transfusion, flush 20 mL per lumen. documented in this encounter Active and Recently Administered Medications Times are shown in PORTABLE POWER TOOL REPAIRER. Scheduled Medication Order 07/18/2024 07/19/2024 07/20/2024 acetaminophen [...] 2143 (Given - Provider: Isis Flaherty R.N.) 05 (Given - Provider: Isis Flaherty R.N.) ipratropium-albuteroL [...] R.N.)1805 (Given - Provider: Malcolm Cordon RDmitryN.) 0536 (Given - Provider: Isis Flaherty RDmitryN.) NaCl [...] Depression Total Score: 22 025 7:19 PM PORTABLE POWER TOOL REPAIRER documented as of this encounter Care Teams Chief Pharmacist Relationship Specialty Start Date End Date Prudence Mena MPAS, P.A.-C. [address] [place] [phone] PCP - General Internal Medicine 02/08/24 documented as of this encounter
--- OUTSIDE RECORDS SUMMARY | 2024-08-28 22:02 | XMS_ITS | Encounter Summary ---
Author Organization [facility] Address [address] [place] [address] Care Team Providers Care Marketing Automation Manager Name Role Phone Prudence Mena P.A.-C. Primary Care Pro vider Reason for Visit * Reason Comments Chest Wall Pain left Encounter Details Date Type Department Care Team (Late st Contact Info) Description 07/26/2024 9:14 AM WANT AD RECEIVER - 07/26/2024 2:06 PM [facility] Emergency [facility] [address] [place] [phone] Dilcia Valero, SLEEVE MAKER, C.N.P. [address] [place] [phone] Pain Chest Wall (Primary Dx) Discharge [...] How often do you attend adventist or caodaism serv ices? Never 07/27/2022 Do [...] Answer Date Recorded PHQ-2 Score 6 07/10/2024 [facility] - Occupational Stress [...] Comments Blood Pressure 120/82 07/26/2024 1:45 PM WANT AD RECEIVER Pulse 101 07/26/2024 1:45 PM WANT AD RECEIVER Temperature 37.3 C (99.1 F) 07/26/2024 9:18 AM WANT AD RECEIVER Respiratory Rate 18 07/26/2024 9:18 AM WANT AD RECEIVER Oxygen Saturation 96% 07/26/2024 1:45 PM WANT AD RECEIVER Inhaled Oxygen Concentration - - Weight - - Height - - Body Mass Index - - documented in this encounter Discharge Instructions * Discharge Instructions* Dilcia Valero APRN, C.N.P. - 07/26/2024 1:28 PM WANT AD RECEIVER Fortunately your imaging and blood work today [...] such as fever, increased cough or pain. AD RECEIVER * Attachments The following attachments cannot be sent through Care Everywhere. * How to Prevent Constipation After Surgery ([place] Citizen) * Chest Wall Pain [id number]-Enep ([place] Citizen) documented in this encounter Medications at Time [...] a venous catheter daily for 17 days. Tow ITC 07/19/2024 5 methocarbamoL (Robaxin) 500 mg tablet Take 1 tablet (500 mg total) by mouth 3 (three) times a day as needed for muscle spasms. 45 tablet 07/20/2024 10:13 AM WANT AD RECEIVER 07/19/2024 5 metroNIDAZOLE (FlagyL) 500 mg tabletIndication s:Empyema Take 1 tablet (500 mg total) by mouth 3 (three) times a day for 17 days Indications: Empyema. 51 tablet 07/20/2024 10:13 AM WANT AD RECEIVER 07/19/2024 5 nitrofurantoin (MACRODANTIN) 50 mg capsule [...] surgery. Dilcia Valero APRN, C.N.P. 07/29/24 0920 AD RECEIVER documented in this encounter Plan of Treatment Upcoming Encounters Date Type Department Care Team (Late st Contact Info) Description 08/30/2024 9:00 AM WANT AD RECEIVER Office Visit Department of Community Internal Medicine in [place], [place] [address] [place] [phone] Prudence Mena MPAS, P.A.-C. [address] [place] [phone] documented as of this encounter Procedures Procedure Name Priority Date/Time Associated Diagnosis Comments CT CHEST ANGIOGRAM AND PULMONARY ARTERIES WITH IV CONTRAST RAD - Semiurgent (Fast; most ED patients; some inpatients) 07/26/2024 10:37 AM WANT AD RECEIVER DX CHEST AP OR PA AND LATERAL 2 VIEWS RAD - Semiurgent (Fast; most ED patients; some inpatients) 07/26/2024 9:54 AM WANT AD RECEIVER SEDIMENTATION RATE, B STAT 07/26/2024 9:44 AM WANT AD RECEIVER CBC WITH DIFFERENTIAL, B STAT 07/26/2024 9:44 AM WANT AD RECEIVER C-REACTIVE PROTEIN (CRP), S/P STAT 07/26/2024 9:44 AM WANT AD RECEIVER BASIC METABOLIC PANEL, S/P STAT 07/26/2024 9:44 AM WANT AD RECEIVER documented in this encounter Results * CT Chest Angiogram and Pulmonary Arteries with IV Contrast (07/26/2024 10:37 AM WANT AD RECEIVER) Anatomical Region Laterality Modality Chest, Cardiovascular RST LO S, Thoracic ARZ LOS, Thoracic FLA LOS N/A Computed Tomography 07/26/2024 10:4 2 AM WANT AD RECEIVER Impressions 07/26/2024 10:46 AM WANT AD RECEIVER 1. Negative for acute pulmonary embolism. 2. Similar findings of multifocal pneumonia. 3. Stable small left pleural effusion. Narrative 07/26/2024 10:46 AM WANT AD RECEIVER EXAM: CT CHEST ANGIOGRAM AND PULMONARY ARTERIES [...] and Lateral 2 Views (07/26/2024 9:54 AM WANT AD RECEIVER) Anatomical Region Laterality Modality Chest, Thoracic RST LOS, Tho racic ARZ LOS, Thoracic FLA LOS N/A Digital Radiography Impressions 07/26/2024 9:59 AM WANT AD RECEIVER Right upper extremity PICC with tip projected over the right atrium. Small left pleural effusion, similar to prior. Scattered linear scarring/atelectasis. The groundglass and tree-in-bud opacities seen on prior CT are not well seen within the limits of radiography. July 24, 2024 and July 19, 2024 comparisons. Narrative 07/26/2024 9:59 AM WANT AD RECEIVER EXAM: DX CHEST AP OR PA AND [...] * Basic Metabolic Panel (07/26/2024 9:44 AM WANT AD RECEIVER) Potassium, P 3.9 3.6 - 5.2 mmol/L 07/26/2024 10:15 AM WANT AD RECEIVER CNFL Sodium, P 141 135 - 145 mmol/L 07/26/2024 10:15 AM WANT AD RECEIVER CNFL Chloride, P 105 98 - 107 mmol/L 07/26/2024 10:15 AM WANT AD RECEIVER CNFL Bicarbonate, P 25 22 - 29 mmol/L 07/26/2024 10:15 AM WANT AD RECEIVER CNFL Anion Gap, P 11 7 - 15 07/26/2024 10:15 AM WANT AD RECEIVER CNFL BUN (Blood Urea Nitrogen), P 10 6 - 21 mg/dL 07/26/2024 10:15 AM WANT AD RECEIVER CNFL Creatinine 0.62 0.59 - 1.04 mg/dL 07/26/2024 10:15 AM WANT AD RECEIVER CNFL Estimated GFR (eGFR) >90 >=60 mL/min/BSA 07/26/2024 10:15 AM WANT AD RECEIVER CNFL Comment: Estimated GFR calculated using the 2020 CKD_EPI creatinine equation. Calcium, Total, P 8.8 8.6 - 10.0 mg/dL 07/26/2024 10:15 AM WANT AD RECEIVER CNFL Glucose, P 122 70 - 140 mg/dL 07/26/2024 10:15 AM WANT AD RECEIVER CNFL Blood (Blood, Venous) 07/26/2024 9:44 AM WANT AD RECEIVER 07/26/2024 9:48 AM WANT AD RECEIVER us Dilcia Valero APRN, C.N.P. LAB BLOOD ADD-ON Final Result [facility] [address] [place] [phone], [facility] CNFL [facility] in [address] [address] * (ABNORMAL) Sedimentation Rate (07/26/2024 9:44 AM WANT AD RECEIVER) Sedimentation Rate, B 102(H) 0 - 29 mm/1 h 07/26/2024 1:33 PM WANT AD RECEIVER RDWG Blood (Blood, Venous) 07/26/2024 9:44 AM WANT AD RECEIVER 07/26/2024 12:52 PM WANT AD RECEIVER us Dilcia Valero APRN, C.N.P. LAB BLOOD ADD-ON Final Result Performing Organization Address City/[facility]/ZIP Co de Phone Number [facility] [address] [place] [address], [facility] RDWG [facility] in [place] [address] [place] [phone] * (ABNORMAL) CRP (C-Reactive Protein) (07/26/2024 9:44 AM WANT AD RECEIVER) C-Reactive Protein (CRP), P 43.3(H) <5.0 mg/L 07/26/2024 10:15 AM WANT AD RECEIVER CNFL Blood (Blood, Venous) 07/26/2024 9:44 AM WANT AD RECEIVER 07/26/2024 9:48 AM WANT AD RECEIVER us Dilcia Valero APRN, C.N.P. LAB BLOOD ADD-ON Final Result Performing Organization Address City/[facility]/ZIP Co de Phone Number [facility] [address] [place] [phone], [place] CNFL [facility] in [address] [address] * (ABNORMAL) CBC with Differential, Blood (07/26/2024 9:44 AM WANT AD RECEIVER) Hemoglobin 9.8(L) 11.6 - 15.0 g/dL 07/26/2024 9:55 AM WANT AD RECEIVER CNFL Hematocrit 31.4(L) 35.5 - 44.9 % 07/26/2024 9:55 AM WANT AD RECEIVER CNFL Erythrocytes 3.55(L) 3.92 - 5.13 x10(12)/L 07/26/2024 9:55 AM WANT AD RECEIVER CNFL MCV 88.5 78.2 - 97.9 fL 07/26/2024 9:55 AM WANT AD RECEIVER CNFL RBC Distrib Width 15.4 12.2 - 16.1 % 07/26/2024 9:55 AM WANT AD RECEIVER CNFL Platelet Count 792(H) 157 - 371 x10(9)/L 07/26/2024 9:55 AM WANT AD RECEIVER CNFL Leukocytes 11.1(H) 3.4 - 9.6 x10(9)/L 07/26/2024 9:55 AM WANT AD RECEIVER CNFL Neutrophils 8.16(H) 1.56 - 6.45 x10(9)/L 07/26/2024 9:55 AM WANT AD RECEIVER CNFL Lymphocytes 1.74 0.95 - 3.07 x10(9)/L 07/26/2024 9:55 AM WANT AD RECEIVER CNFL Monocytes 0.79 0.26 - 0.81 x10(9)/L 07/26/2024 9:55 AM WANT AD RECEIVER CNFL Eosinophils 0.36 0.03 - 0.48 x10(9)/L 07/26/2024 9:55 AM WANT AD RECEIVER CNFL Basophils 0.07 0.01 - 0.08 x10(9)/L 07/26/2024 9:55 AM WANT AD RECEIVER CNFL Blood (Blood, Venous) 07/26/2024 9:44 AM WANT AD RECEIVER 07/26/2024 9:48 AM WANT AD RECEIVER us Dilcia Valero APRN, C.N.P. LAB BLOOD ADD-ON Final Result Performing Organization Address City/State/[facility] Co de Phone Number [facility] [address] [place] [phone], [facility] CNFL [facility] in [address] [address] documented in this encounter Visit Diagnoses Diagnosis [...] For 3 doses Given 07/26/2024 1:48 PM WANT AD RECEIVER 0.5 mg Given 07/26/2024 11:39 AM WANT AD RECEIVER 0.5 mg HYDROmorphone injection 1 mg (Dilaudid) 1 mg, intravenous, Once, On Mon07/26/24 at 0933, For 1 dose Given 07/26/2024 9:38 AM WANT AD RECEIVER 1 mg iopromide 370 mg iodine/mL injection 100 mL (Ultravist) 100 mL, intravenous, Once in imaging, contrast, Starting on Mon07/26/24 at 1021, For 1 dose Given 07/26/2024 10:35 AM WANT AD RECEIVER 100 mL ondansetron (PF) injection 4 mg (Zofran) 4 mg, intravenous, Once, On Mon07/26/24 at 0937, For 1 dose Given 07/26/2024 9:38 AM WANT AD RECEIVER 4 mg sodium chloride 0.9 % flush 80 mL 80 mL, intravenous, Once in imaging, line care, Starting on Mon07/26/24 at 1021, For 1 dose Given 07/26/2024 10:35 AM WANT AD RECEIVER 80 mL sodium chloride 0.9 % injection 10 mL 10 mL, intravenous, As needed, line care, Starting on Mon07/26/24 at 1021 Given 07/26/2024 10:35 AM WANT AD RECEIVER 10 mL Given 07/26/2024 10:34 AM WANT AD RECEIVER 10 mL documented in this encounter Active and Recently Administered Medications Times are shown in WANT AD RECEIVER. Scheduled Medication Order 07/24/2024 07/25/2024 07/26/2024 HYDROmorphone [...] Depression Total Score: 22 025 7:19 PM WANT AD RECEIVER documented as of this encounter Care Teams Marketing Automation Manager Relationship Specialty Start Date End Date Prudence Mena MPAS, P.A.-C. [address] [place] [phone] PCP - General Internal Medicine 02/08/24 documented as of this encounter
--- OUTSIDE RECORDS SUMMARY | 2024-08-28 22:02 | XMS_ITS | Encounter Summary ---
Author Organization [facility] Address [address] [place] [address] Care Team Providers Care Tenant Selector Name Role Phone Prudence Mena P.A.-C. Primary [...] = 0.6 oz pur e alcohol) socially [facility] Utilities Answer Date Recorded In the past 12 months has e [employer], gas, oil, or water [employer] threatened to shut off services in your [...] How often do you attend christianity or adventist serv ices? Never 07/27/2022 Do [...] Answer Date Recorded PHQ-2 Score 6 07/10/2024 [facility] - Occupational [...] Comments Blood Pressure 124/68 07/13/2024 7:49 PM INFANT BABYSITTER Pulse - - Temperature 36.7 C (98.1 F) 07/13/2024 2:28 PM INFANT BABYSITTER Respiratory Rate 20 07/13/2024 7:49 PM INFANT BABYSITTER Oxygen Saturation 95% 07/13/2024 7:49 PM INFANT BABYSITTER Inhaled Oxygen Concentration - - Weight 96 kg (211 lb 10.3 oz) 07/13/2024 2:28 PM INFANT BABYSITTER Height - - Body Mass Index 36.13 07/11/2024 10:32 AM INFANT BABYSITTER documented in this encounter Functional Status * Intimate Partner Violence Question Answer Date of Assessment Author Within the last year, have y ou been humiliated or emotionally abused in other ways by your partner or ex-partner? No 07/15/2024 8:00 PM INFANT BABYSITTER Helena Brady R.N. Within the last year, have y ou been afraid of your partner or ex-partner? No 07/15/2024 8:00 PM INFANT BABYSITTER Helena Brady R.N. Within the last year, have y ou been raped or forced to have any kind of sexual activity by your partner or ex-partner? No 07/15/2024 8:00 PM INFANT BABYSITTER Helena Brady R.N. Within the last year, have y ou been kicked, hit, slapped, or otherwise physically hurt by your partner or ex-partner? No 07/15/2024 8:00 PM INFANT BABYSITTER Helena Brady R.N. documented as of this encounter Progress Notes * Khoa Delgado, M.SKisha, MonicaSDmitryW. - 07/13/2024 2:14 PM CST [facility]: ATC referral SUBJECTIVE Referral received from [facility] Transfer [facility] on 07/13/24, as part of hospital transfer request from [place], [place] (phone: [phone]). OBJECTIVE This patient was not accepted for transfer prior to the assessment process. This is a 39 y.o. year old female from [address] [place], [place] [phone]. The patient was admitted to their facility [...] to the family. Destiny Manuel, MonicaSDmitryW. 07/13/2024 NT BABYSITTER documented in this encounter Plan of Treatment Upcoming Encounters Date Type Department Care Team (Late st Contact Info) Description 08/30/2024 9:00 AM INFANT BABYSITTER Office Visit Department of Community Internal Medicine in [place], [place] [address] [place] [phone] Prudence Mena MPAS, P.A.-C. [address] [place] [phone] documented as of this encounter Visit Diagnoses Not on filedocumented in this encounter Additional Health Concerns Assessment Noted Time PHQ-9 Depression Total Score: 22 025 7:19 PM INFANT BABYSITTER documented as of this encounter Care Teams Tenant Selector Relationship Specialty Start Date End Date Prudence Mena MPAS, P.A.-C. [address] [place] [phone] PCP - General Internal Medicine 02/08/24 documented as of this encounter
--- OUTSIDE RECORDS SUMMARY | 2024-08-28 22:02 | XMS_ITS | Encounter Summary ---
Author Organization [facility] Address [address] [place] [id number] Care Team Providers Care Environmental Engineering Intern Name Role Phone Prudence Mena P.A.-C. Primary Care Pro vider Reason for Visit * Reason Comments Outpatient Infusion Encounter Details Date Type Department Care Team (Late st Contact Info) Description 07/27/2024 9:00 AM DIRECTOR OF ENGINEERING Infusion Department of Infusion Therapy in [address] [phone] Melinda Isaac, FRED, C.N.P. [address] [place] [phone] Empyema Pleural (HCC) (Primary Dx) Social History Tobacco Use Types Packs/Day Years Used Date Smoking Tobacco: Former Cigarettes 1.5 0.2 S tarted: 06/21/2024 Passive Smoke Exposure: Past Smokeless Tobacco: Never Alcohol Use Standard Drinks/Week Comments Yes 0 (1 standard drink = 0.6 oz pur e alcohol) socially [facility] Utilities Answer Date Recorded In [...] How often do you attend tenriism or roman catholic serv ices? Never 07/27/2022 [...] Answer Date Recorded PHQ-2 Score 6 07/10/2024 [facility] [place] [facility] - Occupational Stress [...] Comments Blood Pressure 123/65 07/27/2024 9:18 AM DIRECTOR OF ENGINEERING Pulse 110 07/27/2024 9:18 AM DIRECTOR OF ENGINEERING Temperature 36.1 C (97 F) 07/27/2024 9:18 AM DIRECTOR OF ENGINEERING Respiratory Rate 18 07/27/2024 9:18 AM DIRECTOR OF ENGINEERING Oxygen Saturation 97% 07/27/2024 9:18 AM DIRECTOR OF ENGINEERING Inhaled Oxygen Concentration - - Weight - - Height - - Body Mass Index - - documented in this encounter Plan of Treatment Upcoming Encounters Date Type Department Care Team (Late st Contact Info) Description 08/30/2024 9:00 AM DIRECTOR OF ENGINEERING Office Visit Department of Community Internal Medicine in [place], [place] [address] [facility] [place] [phone] Prudence Mena MPAS, P.A.-C. [address] [place] [phone] documented as of this encounter Visit Diagnoses [...] infection, community acquired Given 07/27/2024 9:23 AM DIRECTOR OF ENGINEERING 2 g sodium chloride 0.9 % injection 10-30 mL 10-30 mL, intravenous, As needed, line care, Starting on 07/27/24 at 0915, Prior to and following infusion, between multiple consecutive infusions.10 mL to each lumen.Indications:Empyema Pleural (HCC) Given 07/27/2024 9:29 AM DIRECTOR OF ENGINEERING 10 mL Given 07/27/2024 9:23 AM DIRECTOR OF ENGINEERING 10 mL documented in this encounter Additional Health Concerns Assessment Noted Time PHQ-9 Depression Total Score: 22 025 7:19 PM DIRECTOR OF ENGINEERING documented as of this encounter Care Teams Environmental Engineering Intern Relationship Specialty Start Date End Date Prudence Mena MPAS, P.A.-C. [address] [facility] [place] [phone] PCP - General Internal Medicine 02/08/24 documented as of this encounter
[2024-08-28] MEDS: ONDANSETRON 2 MG/ML inj 4 MG IVP (22:25)
[2024-08-28] MEDS: LACTATED RINGERS 1000 ML 1,000 ML IV (22:25)
[2024-08-28] MEDS: MORPHINE 4 MG/ML INJ IVP ×2 (22:26→23:57)
[2024-08-28 23:11] LABS: Magnesium* 1.7 mg/dL (1.5-2.6)
[2024-08-28] MEDS: PANTOPRAZOLE SODIUM 40 MG INJ IVP (23:11)
[2024-08-28] MEDS: PROMETHAZINE 25 MG/ML INJ 12.5 MG IVP (23:55)
== END 2024-08-29 00:09 | disposition home or self-care (01) ==
PROVIDERS: Emergency Provider Family Medicine; PCP Internal Medicine
DX: R11.10 Vomiting, unspecified (principal); E87.6 Hypokalemia; E86.0 Dehydration
CPT/HCPCS: 36415; 80048; 80076; 81001; 83605; 83690; 83735; 85025; 86140; 87040; 87493; 87631; 96365; 96366; 96375; 99284; A9270; J1885; J2270; J2405; J2470; J2550; J2765; J3480; J7030; J7120